=== PATIENT | female | born 1995 | race Caucasian/White ===

== ENCOUNTER 2022-02-03 18:58 | Emergency (ER) | payer BC ==
[2022-02-03 20:37] LABS: Urine Blood Negative (Negative); Urine Glucose Negative (Negative); Urine Protein Negative (Negative); Urine Specific Gravity 1.025 (1.005-1.030)
--- NOTE | 2022-02-03 20:57 | RAD REPORT ---
EXAM DESCRIPTION: US - Transvaginal OB - 02/03/2022 8:22 pm CLINICAL HISTORY: ABD PAIN COMPARISON: No comparisons FINDINGS: A single gestational sac is seen within the uterus. The shape of the sac is within normal limits for gestational age. Within the sac small yolk sac. The maternal adnexa and ovaries are within normal limits. Normal Doppler blood flow was demonstrated to both ovaries. IMPRESSION: Single intrauterine gestational sac is seen containing a small yolk sac. No embryo yet i dentified. The findings, however are compatible with early IUP. Recommend follow-up sonography in 10-12 days.
[2022-02-03 21:08] LABS: Urine Bacteria >50 /HPF (<20); Urine RBC <5 /HPF (None Seen)
[2022-02-03 21:20] LABS: Absolute Lymphocytes (CBC) 3.5 K/uL (0.7-4.9); Hematocrit 39.4 % (36.0-45.0); Lymphocytes % 44.2 % (15.3-44.8); MCV 84.5 fL (80-100); MPV 9.2 fL (7.6-11.3); RBC Red Blood Cell Count 4.67 M/uL (3.86-4.86)
--- NOTE | 2022-02-03 22:01 | EDPHYS ---
Physician Documentation [facility] Name: Anita Alvarez Age: 26 yrs Sex: Female : 1995 Arrival Date: 02/03/2022 Time: 19:17 Bed 4 Private MD: ED Physician Chris Wills HPI: 02/03 19:27 This 26 yrs old Female presents to ER via Unassigned with complaints of Abdominal rn Cramping - 5 wks preg. 19:27 The patient presents to the emergency department with abdominal pain, of the suprapubic rn area, that started today, described as crampy. 19:27 The estimated gestational age is 5 weeks. rn 19:30 course: care: none, Leakage of Fluid: none appreciated, Ultrasound: rn the patient has not had an ultrasound, Risk/complications: no obvious risks or complications are appreciated. Previous pregnancies: the patient has never been . Associated signs and symptoms: Pertinent positives: dysuria, frequency, Pertinent negatives: fever, ruptured membranes, seizure, vaginal bleeding, vaginal discharge. The patient has not experienced similar symptoms in the past. The patient has been recently seen by a physician:. Pt reports lower abd cramping, began today, no vaginal discharge or bleeding. at 5 weeks. NO fever/vomiting/diarrhea. Does report urinary frequency and urgency.. 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 - Social history:: Smoking status: Patient denies any tobacco usage or history of. - Family history:: not pertinent. - Hospitalizations: : No recent hospitalization is reported. ROS: 19:30 Constitutional: Negative for fever, chills, and weight loss, Eyes: Negative for injury, rn pain, redness, and discharge, Neck: Negative for injury, pain, and swelling, Cardiovascular: Negative for chest pain, palpitations, and edema, Respiratory: Negative for shortness of breath, cough, wheezing, and pleuritic chest pain, Abdomen/GI: + lower abd cramping, negative for vomiting or diarrhea Back: Negative for injury and pain, : Negative for vaginal bleeding or discharge. MS/Extremity: Negative for injury and deformity, Skin: Negative for injury, rash, and discoloration, Neuro: Negative for headache, weakness, numbness, tingling, and seizure. Exam: 19:30 Constitutional: This is a well developed, well nourished patient who is awake, alert, rn and in no acute distress. Ambulatory to room without difficulty or distress. Head/Face: Normocephalic, atraumatic. Cardiovascular: Regular rate and rhythm. No pulse deficits. Respiratory: No increased work of breathing, no retractions or nasal flaring. Abdomen/GI: Soft, non-tender, no gaurding Skin: Warm, dry MS/ Extremity: Pulses equal, no cyanosis. Neuro: Awake and alert, GCS 15 Vital Signs: 19:30 BP 114 / 76; Pulse 75; Resp 16; Temp 98.3(O); Pulse Ox 100% on R/A; Weight 83.01 kg jb4 (R); Height 5 ft. 2 in. (157.48 cm) (R); Pain 7/10; 22:00 BP 132 / 89; Pulse 75; Resp 16; Pulse Ox 98% on R/A; jb4 22:20 Pulse 94; Pulse Ox 100% ; kd3 19:30 Body Mass Index 33.47 (83.01 kg, 157.48 cm) jb4 MDM: 19:18 Patient medically screened. rn 21:59 Differential diagnosis: ectopic , UTI. Data reviewed: vital signs, nurses rn notes, lab test result(s), radiologic studies, ultrasound, and as a result, I will discharge patient. Counseling: I had a detailed discussion with the patient and/or guardian regarding: the historical points, exam findings, and any diagnostic results supporting the discharge/admit diagnosis, lab results, radiology results, the need for outpatient follow up, to return to the emergency department if symptoms worsen or persist or if there are any questions or concerns that arise at home. Response to treatment: the patient's symptoms have mildly improved after treatment, and as a result, I will discharge patient. Special discussion: I discussed with the patient/guardian in detail that at this point there is no indication for admission to the hospital. It is understood, however, that if the symptoms persist or worsen the patient needs to return immediately for re-evaluation. Based on the history and exam findings, there is no indication for further emergent testing or inpatient evaluation. I discussed with the patient/guardian the need to see the OB Gyne specialist for further evaluation of the symptoms. ED course: U/S shows IUP, likely early gestation. UA with UTI. Will dc home with macrobid and OB f/u. No need to wait on ABO/RH given no bleeding or leakage of fluid and no ectopic.. 02/03 19:18 Order name: Basic Metabolic Panel 02/03 19:18 Order name: CBC with Diff; Complete Time: 21:57 rn 02/03 19:18 Order name: Quantitative Hcg 02/03 19:18 Order name: Urine Microscopic Only; Complete Time: 21:57 rn 02/03 19:25 Order name: Abo/rh Typing; Complete Time: 22:16 ll3 02/03 20:38 Order name: Urine Dipstick-Ancillary; Complete Time: 20:54 EDWA 02/03 19:18 Order name: US Transvaginal Ob; Complete Time: 20:58 rn 02/03 19:18 Order name: IV Saline Lock; Complete Time: 20:56 rn 02/03 19:18 Order name: Labs collected and sent; Complete Time: 20:56 02/03 19:18 Order name: Urine Dipstick-Ancillary (obtain specimen); Complete Time: 20:37 02/03 21:12 Order name: Urine Culture [facility] 02/03 21:16 Order name: Urine --Ancillary (enter results) 02/03 19:18 Order name: Urine Test (obtain specimen); Complete Time: 20:37 rn Administered Medications: 22:04 Drug: Tylenol 325 mg Route: PO; jb4 22:21 Follow up: Response: No adverse reaction kd3 22:20 Drug: Macrobid (nitrofurantoin) 100 mg Route: PO; kd3 22:21 Follow up: Response: No adverse reaction kd3 Disposition Summary: 02/03/22 22:00 Discharge Ordered Location: Home rn Problem: new rn Symptoms: have improved rn Condition: Stable rn Diagnosis - UTI/ Urinary tract infection, site not specified rn - Threatened rn Followup: rn - With: Private Physician - When: As needed - Reason: Recheck today's complaints, Re-evaluation by your physician Discharge Instructions: - Discharge Summary Sheet rn - Threatened Miscarriage rn - Urinary Tract Infection, Adult rn Forms: - Medication Reconciliation Form rn - Thank You Letter 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
--- NOTE | 2022-02-03 22:01 | ER ---
Nurse's Notes [facility] Name: Anita Alvarez Age: 26 yrs Sex: Female : 1995 Arrival Date: 02/03/2022 Time: 19:17 Bed 4 Private MD: Diagnosis: UTI/ Urinary tract infection, site not specified;Threatened Presentation: 02/03 19:30 Chief complaint: Patient states: I am 5 weeks and was woken up by severe jb4 abdominal cramping. I am not having any bleeding or spotting. 19:30 Method Of Arrival: Ambulatory jb4 19:30 Coronavirus screen: At this time, the client does not indicate any symptoms associated jb4 with coronavirus-19. Ebola Screen: No symptoms or risks identified at this time. Initial Sepsis Screen: Does the patient meet any 2 criteria? No. Patient's initial sepsis screen is negative. Does the patient have a suspected source of infection? No. Patient's initial sepsis screen is negative. Risk Assessment: Do you want to hurt yourself or someone else? Patient reports no desire to harm self or others. Onset of symptoms was February 03, 2022. Transition of care: patient was not received from another setting of care. 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 - Social history:: Smoking status: Patient denies any tobacco usage or history of. - Family history:: not pertinent. - Hospitalizations: : No recent hospitalization is reported. Screenin:45 Abuse screen: Denies threats or abuse. Nutritional screening: No deficits noted. jb4 Tuberculosis screening: No symptoms or risk factors identified. Fall Risk None identified. Assessment: 19:45 General: Appears in no apparent distress. comfortable, Behavior is calm, cooperative, jb4 appropriate for age. Pain: Complains of pain in abdomen Pain does not radiate. Pain currently is 7 out of 10 on a pain scale. Quality of pain is described as crampy. Neuro: Level of Consciousness is awake, alert, obeys commands, Oriented to person, place, time, situation. Cardiovascular: Patient's skin is warm and dry. Respiratory: Airway is patent Respiratory effort is even, unlabored, Respiratory pattern is regular, symmetrical. GI: Abdomen is flat, non-distended, Reports cramping. Derm: Skin is intact, Skin is pink, warm \T\ dry. Musculoskeletal: Circulation, motion, and sensation intact. Range of motion: intact in all extremities. 20:35 Reassessment: Patient appears in no apparent distress at this time. Patient and/or jb4 family updated on plan of care and expected duration. Pain level reassessed. Patient is alert, oriented x 3, equal unlabored respirations, skin warm/dry/pink. 21:30 Reassessment: Patient appears in no apparent distress at this time. Patient and/or jb4 family updated on plan of care and expected duration. Pain level reassessed. Patient is alert, oriented x 3, equal unlabored respirations, skin warm/dry/pink. 22:20 Reassessment: Patient appears in no apparent distress at this time. Patient and/or jb4 family updated on plan of care and expected duration. Pain level reassessed. Patient is alert, oriented x 3, equal unlabored respirations, skin warm/dry/pink. 22:20 GI: Bowel sounds Abd is soft and non tender. kd3 Vital Signs: 19:30 BP 114 / 76; Pulse 75; Resp 16; Temp 98.3(O); Pulse Ox 100% on R/A; Weight 83.01 kg jb4 (R); Height 5 ft. 2 in. (157.48 cm) (R); Pain 7/10; 22:00 BP 132 / 89; Pulse 75; Resp 16; Pulse Ox 98% on R/A; jb4 22:20 Pulse 94; Pulse Ox 100% ; kd3 19:30 Body Mass Index 33.47 (83.01 kg, 157.48 cm) jb4 ED Course: 19:17 Patient arrived in ED. am2 19:18 Chris Wills MD is Attending Physician. rn 19:45 Macho Plascencia, TAMMY is Primary Nurse. jb4 20:23 Transvaginal Ob In Process Unspecified. EDMS 20:31 Triage completed. jb4 20:31 Arm band placed on right wrist. jb4 22:20 No provider procedures requiring assistance completed. IV discontinued, intact, kd3 bleeding controlled, No redness/swelling at site. Pressure dressing applied. 22:21 Patient has correct armband on for positive identification. kd3 Administered Medications: 22:04 Drug: Tylenol 325 mg Route: PO; jb4 22:21 Follow up: Response: No adverse reaction kd3 22:20 Drug: Macrobid (nitrofurantoin) 100 mg Route: PO; kd3 22:21 Follow up: Response: No adverse reaction kd3 Medication: 20:35 VIS not applicable for this client. jb4 Outcome: 22:00 Discharge ordered by . rn 22:21 Discharged to home ambulatory. kd3 22:21 Condition: stable 22:21 Discharge instructions given to patient, family, Instructed on discharge instructions, follow up and referral plans. Demonstrated understanding of instructions, follow-up care, medications, Prescriptions given X 1. 22:23 Patient left the ED. jb4 Signatures: Dispatcher [employer] EDMS Chris Wills MD MD rn Bryson, James, RN RN jb4 Taylor León Kyli, TAMMY RN kd3 Corrections: (The following items were deleted from the chart) 22:21 22:00 BP 133 / 289; Pulse 75bpm; Resp 16bpm; Pulse Ox 98% RA; jb4 jb4
[2022-02-03] MEDS ORDERED: ACETAMINOPHEN 325 MG TABLET ONE (22:09)
[2022-02-03 22:16] LABS: Potassium 4.1 mmol/L (3.5-5.1)
[2022-02-03] MEDS ORDERED: NITROFURAN MACRO 100 MG CAP PO ONE (22:22)
[2022-02-03 23:07] VITALS: TEMP 98.3
[2022-02-03 23:14] VITALS: BP 132/89
[2022-02-03 23:20] VITALS: O2SAT 100
[2022-02-04 00:16] LABS: Urine Specific Gravity/Preg 1.025 (1.005-1.030)
== END 2022-02-03 22:23 | disposition home or self-care (01) ==
LOC: ER 18:58
DX: O20.0 Threatened abortion (principal); O23.41 Unspecified infection of urinary tract in pregnancy, first trimester; N39.0 Urinary tract infection, site not specified; Z3A.01 Less than 8 weeks gestation of pregnancy; Z88.0 Allergy status to penicillin
CPT/HCPCS: 36415; 76817; 80048; 81003; 81015; 81025; 84702; 85025; 86900; 86901; 87086; 87088; 99283

== ENCOUNTER 2022-03-07 17:07 | Emergency (ER) | payer BC ==
--- OUTSIDE RECORDS SUMMARY | 2022-03-07 17:11 | XMS REPORT | Continuity of Care Document ---
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 60-100 [facility] HealthSerum or plasma calcium measurement (mass/volume)2019-06-12 16:25:00 Test Item Value Reference Range Interpretation Comments Calcium Level (test code = 92108-4) 9.5 mg/dL 8.4-10.2 [facility] HealthSerum or plasma total bilirubin measurement (mass/volume) 2019-06-12 16:25:00 Test Item Value Reference Range Interpretation Comments Total Bilirubin (test code = 0.5 mg/dL 0.2-1.2 1975-2) [facility] HealthSerum or plasma aspartate aminotransferase measurement (enzymatic activity/volume)2019-06-12 16:25:00 Test Item Value Reference Range Interpretation Comments Aspartate Amino Transf (AST/SGOT) 87 U/L 5-34 (test code = 1920-8) [facility] HealthSerum or plasma alanine aminotransferase measurement (enzymatic activity/volume)2019-06-12 16:25:00 Test Item Value Reference Range Interpretation Comments Alanine Aminotransferase (ALT/SGPT) 168 U/L 0-55 (test code = 1742-6) [facility] HealthSerum or plasma protein measurement (mass/volume)2019-06-12 16:25:00 Test Item Value Reference Range Interpretation Comments Total Protein (test code = 2885-2) 7.9 g/dL 6.4-8.3 [facility] HealthSerum or plasma albumin measurement (mass/volume)2019-06-12 16:25:00 Test Item Value Reference Range Interpretation Comments Albumin (test code = 1751-7) 4.4 g/dL 3.5-5.0 [facility] HealthSerum or plasma alkaline phosphatase measurement (enzymatic activity/volume)2019-06-12 16:25:00 Test Item Value Reference Range Interpretation Comments Alkaline Phosphatase (test code = 78 U/L 40-150 6768-6) [facility] HealthSerum or plasma lipase measurement (enzymatic activity/volume) 2019-06-12 16:25:00 Test Item Value Reference Range Interpretation Comments Lipase (test code = 3040-3) 21 U/L 8-78 [facility] HealthAutomated blood leukocyte count (number/volume)2019-06-12 16:25:00 Test Item Value Reference Range Interpretation Comments White Blood Count (test code = 11.1 10*3/uL 4.5-11.5 6690-2) [facility] HealthBlood erythrocytes automated count (number/volume)2019-06-12 16:25:00 Test Item Value Reference Range Interpretation Comments Red Blood Count (test code = 5.02 10*6/uL 3.8-5.1 789-8) [facility] HealthBlood hemoglobin measurement (mass/volume)2019-06-12 16:25:00 Test Item Value Reference Range Interpretation Comments Hemoglobin (test code = 718-7) 14.2 g/dL 12.0-15.2 [facility] HealthAutomated blood hematocrit (volume fraction)2019-06-12 16:25:00 Test Item Value Reference Range Interpretation Comments Hematocrit (test code = 4544-3) 44.9 % 34.0-45.5 [facility] HealthAutomated erythrocyte mean corpuscular volume (MCV) measurement 2019-06-12 16:25:00 Test Item Value Reference Range Interpretation Comments Mean Corpuscular Volume (test code = 89 fL 80-94 787-2) [facility] HealthAutomated erythrocyte mean corpuscular hemoglobin (mass per erythrocyte)2019-06-12 16:25:00 Test Item Value Reference Range Interpretation Comments Mean Corpuscular Hemoglobin (test 28.3 pg 27.0-33.0 code = 785-6) [facility] HealthAutomated erythrocyte mean corpuscular hemoglobin concentration measurement (mass/[id number] 16:25:00 Test Item Value Reference Range Interpretation Comments Mean Corpuscular Hemoglobin Concent 31.6 g/dL 33.0-37.0 (test code = 786-4) [facility] HealthAutomated erythrocyte distribution width [id number] 16:25:00 Test Item Value Reference Range Interpretation Comments Red Cell Distribution Width (test code 12.3 % 10.7-14.5 = 788-0) [facility] HealthAutomated blood platelet count (count/volume)2019-06-12 16:25:00 Test Item Value Reference Range Interpretation Comments Platelet Count (test code = 295 10*3/uL 150-450 777-3) [facility] HealthAutomated blood platelet mean volume [id number] 16:25:00 Test Item Value Reference Range Interpretation Comments Mean Platelet Volume (test code = 11.0 5.7-10.7 17377-4) [facility] comment [id number] 16:25:00 Test Item Value Reference Range Interpretation Comments Manual Differential (test code = ----- 8265-1) [facility] 1 VIEW [id number] 07:15:[address] [id number] IMAGING REPORTPat ient Name: DEYSI WOLFE BDate of Service: [id number]: 23 Sex: F Order #: [id number] Room: ERSDOB: 1995 X-Ray Number: [id number] Record Number: [id number] Hospital Number: [id number] Physician: GABBY THOMASOrdering Physician: JOAQUIN CODY ONE VIEW 12/25/2018HISTORY: Left chest painCOMPARISON: NoneCardiac, hilar, and mediastinal structures are normal. Lungs arewell-aerated and clear. No effusion or pneumothorax. No acute bony or softtissue abnormalities are identified.IMPRESSION:Clear chest.The study was performed on an emergent basis and preliminary report faxedto the Emergency Department by the [facility] service nearthe time of the exam.Electronically Signed By: Arturo Moore M.D., 12/25/2018 7:13 AMLegally authenticated by JOY FRANCO 2018-12-25 07:13:[id number] 02:24:00 Test Item Value Reference Range Interpretation Comments %CKMB (test code = TNP % UNABLE TO %MB) CALCULATE RESUL TS DUE TO CKMB <0. 22 NG/ML. CKMB (test code = <0.22 NG/ML 0.22-2.4 CKMB) CK (test code = 55 U/L 30-135 CK) CKINTERP (test NEGATIVE Negative code = CKINTERP) TROPONIN I - [id number] 02:23:00 Test Item Value Reference Range Interpretation Comments TROP-I (test code <0.012 ng/ml 0.012-0.033 INT ERPRETIVE DATA = TROP-I) A TROPONI N OF LESS THAN 0.034 NG/M L IS CONSIDERED NEGA TIVE A TROPONIN OF 0.0 34 - 0.119 NG/ML IS CONSIDERED REGAN ZONE A TROPONIN =/> 0. 120 NG/ML IS CONSIDERED P OSITIVE [id number] 02:17:00 Test Item Value Reference Range Interpretation Comments LIPASE (test code = LIPA) 84 U/L 23-300 [id number] 02:17:00 Test Item Value Reference Range Interpretation Comments SODIUM (test code = 142 MMOL/L 137-145 NA) K+ (test code = 3.8 MMOL/L 3.5-5.1 PLEASE NOTE NEW KSERUM) REFERENCE RANGE (S) IN EFFECT EFFECTIVE 010 - NEW ANALYZER (V ITROS 5600) CHLORIDE (test code 105 MMOL/L 98-107 = CL) CO2 (test code = 27 MMOL/L 22-30 CO2) BUN (test code = 9 MG/DL 7-17 BUN) CREA (test code = 0.5 MG/DL 0.7-1.2 L CREA) GLUCOSE (test code 142 MG/DL 70-99 H Fasting glucose = GLUCOSE) normal <100 MG/ DL- [employer] recommendation* * CALCIUM (test code 9.6 MG/DL 8.4-10.2 = CABLOOD) TOTPROT (test code 7.6 G/DL 6.3-8.2 = TOTPROT) ALBUMIN (test code 4.4 G/DL 3.5-5.0 = ALBSERUM) BILITOT (test code 0.4 MG/DL 0.2-1.3 = BILITOT) AST (test code = 74 U/L 15-46 H AST) PHOSALK (test code 87 U/L 38-126 = PHOSALK) ALT (test code = 143 U/L 13-69 H ALT) GFR (test code = 166 A GFR of >9 0 GFR) mL/min/1.73m2 mL/min/1.73m2 is considered norm al. D-DIMER, [id number] 02:14:00 Test Item Value Reference Range Interpretation Comments D-DIMER (test 0.29 ug/mL (FEU) 0.27-0.50 VALUES OF QUANTITATIVE code = DDIMER) D-DIMER LESS THAN 0.4 UG/ML HAVE BEEN REPORTED TO BE ASSOCIATED WITH A LOW PROBABILITY OF DEEP VEIN THROMBOSIS/PULM ONARYEMB OLISM. THIS NI T ALONE SHOULD NOT BE U SED TO RULE OUT DVT/PE . B-HCG QUAL (KIT)2018-12-25 02:02:00 Test Item Value Reference Range Interpretation Comments HCGQUAL (test code = NEGATIVE NEGATIVE URINE: NEGATIVE = < HCGQUAL) 20 mIU/ML; POSI TIVE= >/= 20 mIU/ML S FARIHA: NEGATIVE = < 10 mIU/ML; POSITIV E= >/= 10 mIU/ML SOURCE (test code = SERUM SOURCE) HCG INTERNAL POSITIVE PASS PASS CNTRL (test code = HCGIPC) HCG LOT # (test code = [id number] UHCGLOT) HCG EXPIRATION DATE 05-27-20 (test code = UHCGEXP) [id number] 02:01:00 Test Item Value Reference Range Interpretation Comments GLUCOSE (test code = URGLU) 100 MG/DL NEG-100 BILIRUBN (test code = URBILI) NEGATIVE NEGATIVE KETONE (test code = URKET) NEGATIVE MG/DL NEGATIVE BLOOD (test code = URBLD) NEGATIVE UR PH (test code = URPH) 5.5 5.0-7.5 PROTEIN (test code = URPRO) NEGATIVE MG/DL NEGATIVE NITRITES (test code = URNIT) NEGATIVE NEGATIVE UROBILINGEN (test code = 0.2 EU/DL 0.2-1.0 URURO) LEUKOCYT (test code = URLEU) NEGATIVE NEGATIVE UA COLOR (test code = UA YELLOW YELLOW COLOR) CLARITY (test code = CLARITY) CLEAR CLEAR SP GRAV (test code = URSPGRAV) 1.022 1.000-1.025 UAMICRO (test code = UAMICRO) NO [id number] 01:50:00 Test Item Value Reference Range Interpretation Comments WBC (test code = 9.1 K/UL 3.5-10.9 WBC) RBC (test code = 4.77 M/UL 4.0-5.0 RBC) HGB (test code = 13.8 G/DL 11.5-15.5 HGB) HCT (test code = 42.1 % 34-46 HCT) MCV (test code = 88.3 FL 80-98 MCV) MCH (test code = 28.9 PG 28-32 MCH) MCHC (test code = 32.8 G/DL 32.5-36.5 MCHC) RDW (test code = 12.1 % 11.5-14.5 RDW) PLT (test code = 273 K/UL 150-450 PLT) MPV (test code = 11.1 FL 7.4-10.4 H MPV) MANDIFF (test code = NO MANDIFF) SCAN (test code = NO SCAN) NEUT% (test code = 45.5 % 40-75 NEUT%) LYMPH% (test code = 44.6 % 24-44 H LYMPH%) MONO% (test code = 7.4 % 0-13 MONO%) EOS% (test code = 1.9 % 0-4 EOS%) BASO % (test code = 0.3 % 0-2 BASO%) IG (test code = IG) 0 % 0-1 IG% (test code = 0.3 % 0-1 IG% = Metam yelocytes, IG%) Myelocytes, and Promyelocytes. (Immature neutr ophils not including " bands".) > 3% IG indic ates risk of sepsis NRBC% (test code = 0 /100 WBC NRBC%) ABS NEUT (test code 4.2 K/UL 1.2-7.2 = NEUT) Comprehensive metabolic 2000 panel - Serum or [id number] 00:00:00 Test Item Value Reference Range Interpretation Comments sodium (test code = sodium) 137 mmol/L 136-145 potassium (test code = potassium) 3.6 mmol/L 3.5-5.1 chloride (test code = chloride) 103 mmol/L 98-107 CO2 (test code = CO2) 20 mmol/L 24-33 L anion gap (test code = anion gap) 18 8-18 BUN (test code = BUN) 5 mg/dL 6-20 L creatinine (test code = 0.4 mg/dL 0.7-1.3 L creatinine) est glomerular filtration rate 214 90-142 H (test code = est glomerular filtration rate) glucose (test code = glucose) 127 mg/dL 60-100 H calcium (test code = calcium) 8.7 mg/dL 8.3-10.5 bilirubin total (test code = 0.3 mg/dL 0.0-1.0 bilirubin total) AST / SGOT (test code = AST / 66 U/L 0-32 H SGOT) ALT / SGPT (test code = ALT / 202 U/L 0-33 H SGPT) total protein (test code = total 7.1 g/dL 6.4-8.3 protein) albumin (test code = albumin) 3.6 g/dL 3.5-5.0 alkaline phosphatase (test code = 160 U/L 58-154 H alkaline phosphatase) [facility] W Auto Differential panel - Blood 2018-09-11 00:00:00 Test Item Value Reference Range Interpretation Comments WBC (test code = WBC) 8.3 10*3/uL 4.5-11.5 red cell count (test code = red 4.25 10*6/uL 3.8-5.1 cell count) hemoglobin (test code = 12.0 g/dL 12.0-15.2 hemoglobin) hematocrit (test code = 37.6 % 34.0-45.5 hematocrit) mean corpuscular volume (test 89 fL 80-94 code = mean corpuscular volume) mean corpuscular HGB (test code 28.2 pg 27.0-33.0 = mean corpuscular HGB) mean corpuscular HGB conc (test 31.9 g/dL 33.0-37.0 L code = mean corpuscular HGB conc) red cell distribution width 12.2 % 10.7-14.5 (test code = red cell distribution width) platelet count (test code = 227 10*3/uL 150-450 platelet count) mean platelet volume (test code 11.5 fL 5.7-10.7 H = mean platelet volume) neutrophils % (test code = 71 % 47-75 neutrophils %) immature granulocyte % (test 0 % 0-0 code = immature granulocyte %) lymphocytes % (test code = 19 % 25-44 L lymphocytes %) monocytes % (test code = 9 % 3-10 monocytes %) eosinophils % (test code = 1 % 0-7 eosinophils %) basophils % (test code = 0 % 0-1 basophils %) nucleated RBC % (test code = 0.0 % 0-0.2 nucleated RBC %) neutrophils # (test code = 5.9 10*3/uL 1.3-6.7 neutrophils #) immature granulocyte # (test 0.0 10*3/uL 0.0-0.0 code = immature granulocyte #) lymphocytes # (test code = 1.6 10*3/uL 1.4-4.1 lymphocytes #) monocytes # (test code = 0.8 10*3/uL 0-1.3 monocytes #) eosinophils # (test code = 0.1 10*3/uL 0-0.8 eosinophils #) basophils # (test code = 0.0 10*3/uL 0-0.1 basophils #) nucleated RBC # (test code = 0.00 10*3/uL 0-0.01 nucleated RBC #) manual diff? (test code = manual not ind diff?) [facility] AssociatesPATHOLOGY [id number] 08:19:00 TISSUE CONSULTATION REPORTBAPTSAINT MARK'S MEDICAL CENTERDEPARTMENT OF PATHOLOGYP.O[address], [place] [address] ISH PIRES M.D.ROBERT L. HUTTON, M.D.CHARLES E. BURNS, M.D. ____Patient: DEYSI WOLFE 1995 23 FRoom:Hosp#: [id number] Ordering Physician: ROHITH VALLE Rec.: 08/31/2018Date of Proc.: 08/31/2018Lab No.: [id number] FINAL ANATOMIC DIAGNOSIS:STOMACH, BIOPSY:- CHRONIC INACTIVE GASTRITIS WITH SUPERIMPOSED REACTIVE CHANGE.- NEGATIVE FOR HELICOBACTER FORMS BY JENNIFER STAIN.- NEGATIVE FOR INTESTINAL METAPLASIA BY AB/PAS STAIN.- NEGATIVE FOR DYSPLASIA OR MALIGNANCY.MICROSCOPIC EXAMINATION:Performed; see diagnosis.GROSS APPEARANCE:The specimen is labeled "random gastric biopsy." Submitted informalin are two yellow-leon mucosal fragments measuring 0.5 x 0.3 x0.2 cm in aggregate, ET one block wraps.PATHOLOGIST: Mane Ledesma Electronically Signed: 09/01/[id number] 07:46:00 Test Item Value Reference Range Interpretation Comments SODIUM (test code = 142 MMOL/L 137-145 NA) K+ (test code = 3.4 MMOL/L 3.5-5.1 L PLEASE NOTE NEW KSERUM) REFERENCE RANGE (S) IN EFFECT EFFECTIVE 010 - NEW ANALYZER (V ITROS 5600) CHLORIDE (test code 105 MMOL/L 98-107 = CL) CO2 (test code = 26 MMOL/L 22-30 CO2) BUN (test code = 6 MG/DL 7-17 L BUN) CREA (test code = 0.6 MG/DL 0.7-1.2 L CREA) GLUCOSE (test code 87 MG/DL 70-99 Fasting glucose = GLUCOSE) normal <100 MG/ DL- [employer] recommendation* * CALCIUM (test code 9.2 MG/DL 8.4-10.2 = CABLOOD) TOTPROT (test code 6.7 G/DL 6.3-8.2 = TOTPROT) ALBUMIN (test code 3.9 G/DL 3.5-5.0 = ALBSERUM) BILITOT (test code 0.6 MG/DL 0.2-1.3 = BILITOT) AST (test code = 104 U/L 15-46 H AST) PHOSALK (test code 117 U/L 38-126 = PHOSALK) ALT (test code = 266 U/L 13-69 H ALT) GFR (test code = 134 A GFR of >9 0 GFR) mL/min/1.73m2 mL/min/1.73m2 is considered norm al. [id number] 07:19:00 Test Item Value Reference Range Interpretation Comments WBC (test code = 9.2 K/UL 3.5-10.9 WBC) RBC (test code = 4.99 M/UL 4.0-5.0 RBC) HGB (test code = 13.9 G/DL 11.5-15.5 HGB) HCT (test code = 42.9 % 34-46 HCT) MCV (test code = 86.0 FL 80-98 MCV) MCH (test code = 27.9 PG 28-32 L MCH) MCHC (test code = 32.4 G/DL 32.5-36.5 L MCHC) RDW (test code = 12.4 % 11.5-14.5 RDW) PLT (test code = 261 K/UL 150-450 PLT) MPV (test code = 11.0 FL 7.4-10.4 H MPV) MANDIFF (test code = NO MANDIFF) SCAN (test code = NO SCAN) NEUT% (test code = 49.5 % 40-75 NEUT%) LYMPH% (test code = 37.9 % 24-44 LYMPH%) MONO% (test code = 9.5 % 0-13 MONO%) EOS% (test code = 2.3 % 0-4 EOS%) BASO % (test code = 0.4 % 0-2 BASO%) IG (test code = IG) 0 % 0-1 IG% (test code = 0.4 % 0-1 IG% = Metam yelocytes, IG%) Myelocytes, and Promyelocytes. (Immature neutr ophils not including " bands".) > 3% IG indic ates risk of sepsis NRBC% (test code = 0 /100 WBC NRBC%) ABS NEUT (test code 4.6 K/UL 1.2-7.2 = NEUT) ACUTE HEPATITIS [id number] 03:34:00 Test Item Value Reference Range Interpretation Comments HAAB,M (test code = NEGATIVE NEGATIVE HAAB,M) HBCABM (test code = NEGATIVE NEGATIVE A GRAYZO NE result is HBCABM) presumptive betsey dence of IgM anti-HBc. P atients with specimens exhibiting regan zone react tay test results should be retested at jared roximately one-week interv als. HCV (test code = NEGATIVE NEGATIVE Hepatitis C Antibody test HCV) is for screenin g purposes only. All react nga will be confirmed by additional test ing. HEPBSAG (test code = NEGATIVE NEGATIVE Hepatit is B Surface HEPBSAG) Antigen is for screening purpose only. A ll reactives will be sent to reference lab f or confirmation. [id number] 17:52:00 Test Item Value Reference Range Interpretation Comments SODIUM (test code = 141 MMOL/L 137-145 NA) K+ (test code = 4.0 MMOL/L 3.5-5.1 PLEASE NOTE NEW KSERUM) REFERENCE RANGE (S) IN EFFECT EFFECTIVE 010 - NEW ANALYZER (V ITROS 5600) CHLORIDE (test code 103 MMOL/L 98-107 = CL) CO2 (test code = 29 MMOL/L 22-30 CO2) BUN (test code = 7 MG/DL 7-17 BUN) CREA (test code = 0.5 MG/DL 0.7-1.2 L CREA) GLUCOSE (test code 120 MG/DL 70-99 H Fasting glucose = GLUCOSE) normal <100 MG/ DL- [employer] recommendation* * CALCIUM (test code 9.3 MG/DL 8.4-10.2 = CABLOOD) TOTPROT (test code 7.1 G/DL 6.3-8.2 = TOTPROT) ALBUMIN (test code 4.0 G/DL 3.5-5.0 = ALBSERUM) BILITOT (test code 0.4 MG/DL 0.2-1.3 = BILITOT) AST (test code = 147 U/L 15-46 H AST) PHOSALK (test code 135 U/L 38-126 H = PHOSALK) ALT (test code = 355 U/L 13-69 H ALT) GFR (test code = 166 A GFR of >9 0 GFR) mL/min/1.73m2 mL/min/1.73m2 is considered norm al. [id number] 17:52:00 Test Item Value Reference Range Interpretation Comments LIPASE (test code = LIPA) 65 U/L 23-300 [id number] 17:33:00 Test Item Value Reference Range Interpretation Comments WBC (test code = 9.6 K/UL 3.5-10.9 WBC) RBC (test code = 4.72 M/UL 4.0-5.0 RBC) HGB (test code = 13.6 G/DL 11.5-15.5 HGB) HCT (test code = 40.7 % 34-46 HCT) MCV (test code = 86.2 FL 80-98 MCV) MCH (test code = 28.8 PG 28-32 MCH) MCHC (test code = 33.4 G/DL 32.5-36.5 MCHC) RDW (test code = 12.3 % 11.5-14.5 RDW) PLT (test code = 275 K/UL 150-450 PLT) MPV (test code = 11.2 FL 7.4-10.4 H MPV) MANDIFF (test code = NO MANDIFF) SCAN (test code = NO SCAN) NEUT% (test code = 64.1 % 40-75 NEUT%) LYMPH% (test code = 24.6 % 24-44 LYMPH%) MONO% (test code = 8.5 % 0-13 MONO%) EOS% (test code = 2.1 % 0-4 EOS%) BASO % (test code = 0.3 % 0-2 BASO%) IG (test code = IG) 0 % 0-1 IG% (test code = 0.4 % 0-1 IG% = Metam yelocytes, IG%) Myelocytes, and Promyelocytes. (Immature neutr ophils not including " bands".) > 3% IG indic ates risk of sepsis NRBC% (test code = 0 /100 WBC NRBC%) ABS NEUT (test code 6.1 K/UL 1.2-7.2 = NEUT) CT ABDOMEN/PELVIS [id number] 07:30:[address] [id number] IMAGING REPORTPatient Name: DEYSI WOLFE BDate of Service: [id number]: 23 Sex: F Order #: [id number] Room: [facility]: 1995 X-Ray Number: [id number] Record Number: [id number] Hospital Number: [id number] Physician: KIERA DELA CRUZ Physician: FRANK ASH ABDOMEN/PELVIS WITH 08/30/2018 12:33 AMHISTORY: Abd pain without fever . Abdominal pain with nausea andvomiting.COMPARISON: 08/20/2018TECHNIQUE: IV contrast-enhanced CT imaging of the abdomen and pelvis. ThisCT exam was performed using one or more of the following dose reductiontechniques: Automated exposure control, adjustment of the mA and/or KVaccording to patient size, or use of iterative reconstruction technique.FINDINGS:There is mild bibasilar atelectasis. Heart size is normal.Within the dome of the right lobe of the liver is an 11 mm hyperdenselesion that is similar to the prior precontrast enhanced study performed on08/20/2018. There is diffuse hepatic steatosis. The gallbladder issurgically absent.The spleen, pancreas, adrenal glands, and kidneys are normal.The bowel is unobstructed. The appendix is normal. There is no free fluidor free air in the abdomen or pelvis. The bladder is distended and normal.The bones are intact without acute abnormality.IMPRESSION:1. No acute abnormality of the abdomen or pelvis.2. 11 mm hyperdense lesion within the dome of the right lobe of the liveris nonspecific but similar to the prior study from 08/20/2018. Furtherevaluation with pre and post IV contrast MRI of the abdomen may help bettercharacterize this lesion.3. Hepatic steatosis.Electronically Signed By: Mane Goss M.D., 08/30/2018 7:28 AMLegally authenticated by TORRIE CARRION 2018-08-30 07:28:[id number] 21:58:00 Test Item Value Reference Range Interpretation Comments GLUCOSE (test code = URGLU) NEGATIVE MG/DL NEG-100 BILIRUBN (test code = URBILI) NEGATIVE NEGATIVE KETONE (test code = URKET) 80 MG/DL NEGATIVE BLOOD (test code = URBLD) NEGATIVE UR PH (test code = URPH) 5.5 5.0-7.5 PROTEIN (test code = URPRO) NEGATIVE MG/DL NEGATIVE NITRITES (test code = URNIT) NEGATIVE NEGATIVE UROBILINGEN (test code = 0.2 EU/DL 0.2-1.0 URURO) LEUKOCYT (test code = URLEU) SMALL NEGATIVE UA COLOR (test code = UA DARK YELLOW YELLOW COLOR) CLARITY (test code = CLARITY) CLEAR CLEAR SP GRAV (test code = URSPGRAV) 1.018 1.000-1.025 UAMICRO (test code = UAMICRO) YES WBC (test code = URWBC) 11 /HPF 0-5 H RBC (test code = URRBC) 7 /HPF 0-2 H CASTS (test code = CAST) 6 /LPF 0-3 H UR EPI (test code = EPI) 143 /LPF BACTERIA (test code = NEGATIVE NONE BACTERIA) B-HCG QUAL (KIT)2018-08-29 19:33:00 Test Item Value Reference Range Interpretation Comments HCGQUAL (test code = NEGATIVE NEGATIVE URINE: NEGATIVE = < HCGQUAL) 20 mIU/ML; POSI TIVE= >/= 20 mIU/ML S FARIHA: NEGATIVE = < 10 mIU/ML; POSITIV E= >/= 10 mIU/ML SOURCE (test code = SERUM SOURCE) HCG INTERNAL POSITIVE PASS PASS CNTRL (test code = HCGIPC) HCG LOT # (test code = [id number] UHCGLOT) HCG EXPIRATION DATE 01-14 (test code = UHCGEXP) [id number] 19:28:00 Test Item Value Reference Range Interpretation Comments LIPASE (test code = LIPA) 48 U/L 23-300 [id number] 19:28:00 Test Item Value Reference Range Interpretation Comments SODIUM (test code = 140 MMOL/L 137-145 NA) K+ (test code = 4.0 MMOL/L 3.5-5.1 PLEASE NOTE NEW KSERUM) REFERENCE RANGE (S) IN EFFECT EFFECTIVE 010 - NEW ANALYZER (V ITROS 5600) CHLORIDE (test code 102 MMOL/L 98-107 = CL) CO2 (test code = 27 MMOL/L 22-30 CO2) BUN (test code = 10 MG/DL 7-17 BUN) CREA (test code = 0.6 MG/DL 0.7-1.2 L CREA) GLUCOSE (test code 84 MG/DL 70-99 Fasting glucose = GLUCOSE) normal <100 MG/ DL- [employer] recommendation* * CALCIUM (test code 9.7 MG/DL 8.4-10.2 = CABLOOD) TOTPROT (test code 7.9 G/DL 6.3-8.2 = TOTPROT) ALBUMIN (test code 4.5 G/DL 3.5-5.0 = ALBSERUM) BILITOT (test code 0.7 MG/DL 0.2-1.3 = BILITOT) AST (test code = 547 U/L 15-46 H AST) PHOSALK (test code 177 U/L 38-126 H = PHOSALK) ALT (test code = 599 U/L 13-69 H ALT) GFR (test code = 134 A GFR of >9 0 GFR) mL/min/1.73m2 mL/min/1.73m2 is considered norm al. [id number] 19:21:00 Test Item Value Reference Range Interpretation Comments WBC (test code = 11.7 K/UL 3.5-10.9 H WBC) RBC (test code = 5.17 M/UL 4.0-5.0 H RBC) HGB (test code = 14.9 G/DL 11.5-15.5 HGB) HCT (test code = 45.1 % 34-46 HCT) MCV (test code = 87.2 FL 80-98 MCV) MCH (test code = 28.8 PG 28-32 MCH) MCHC (test code = 33.0 G/DL 32.5-36.5 MCHC) RDW (test code = 12.1 % 11.5-14.5 RDW) PLT (test code = 295 K/UL 150-450 PLT) MPV (test code = 11.1 FL 7.4-10.4 H MPV) MANDIFF (test code = NO MANDIFF) SCAN (test code = NO SCAN) NEUT% (test code = 70.7 % 40-75 NEUT%) LYMPH% (test code = 21.0 % 24-44 L LYMPH%) MONO% (test code = 6.2 % 0-13 MONO%) EOS% (test code = 1.3 % 0-4 EOS%) BASO % (test code = 0.5 % 0-2 BASO%) IG (test code = IG) 0 % 0-1 IG% (test code = 0.3 % 0-1 IG% = Metam yelocytes, IG%) Myelocytes, and Promyelocytes. (Immature neutr ophils not including " bands".) > 3% IG indic ates risk of sepsis NRBC% (test code = 0 /100 WBC NRBC%) ABS NEUT (test code 8.3 K/UL 1.2-7.2 H = NEUT) PATHOLOGY [id number] 09:33:00TISSUE CONSULTATION REPORTBAPTSAINT MARK'S MEDICAL CENTERDEPARTMENT OF PATHOLOGYP.O. [address]AC[address] [place] [address] ROBOCL ISH ROJAS M.D.ROBERT L. HUTTON, M.D.CHARLES E. BURNS, M.D. ____Patient: YANETHKRISTALelia Ornelas 1995 23 FRoom:Hosp#: [id number] Ordering Physician: JUAN MERAZ Rec.: 08/26/2018Date of Proc.: 08/25/2018Lab No.: [id number] PRE-OPERATIVE DIAGNOSIS:Chronic cholecystitisFINAL ANATOMIC DIAGNOSIS:GALLBLADDER, CHOLECYSTECTOMY: CHRONIC CHOLECYSTITISMICROSCOPIC EXAMINATION:A single HGROSS APPEARANCE:The specimen is labeled "gallbladder." The 6.5 x 2.5 x 1.2 cmgallbladder has a pink-leon smooth and glistening serosa. Nolymphoid tissue is identified in the area of the cystic duct.Opening the gallbladder lengthwise reveals a small amount of palegreen mucoid bile. No stones are present within the gallbladderlumen or specimen container. The mucosa is pale green with avelvety texture. No cholesterolosis is appreciated grossly. Thereis a fold within the distal fundus of the gallbladder, consistentwitha Phrygian cap abnormality. The wall ranges from 1-2 mm inthickness. Sections are submitted in a single cassette.PATHOLOGIST: Roberto Genao Electronically Signed: 08/29/2018ABDOMEN 2 [id number] 07:15:[address] [id number] IMAGING REPORTPatient Name: DEYSI WOLFE BDate of Service: [id number]: 23 Sex: F Order #: [id number] [facility] 1995 X[facility] Number: [id number] Record Number: [id number] Hospital Number: [id number] Ph ysician: Marbella THOMAS Physician: Radha THOMAS 2 views 08/27/2018History: Recent cholecystectomy, severe abdominal pain and vomitingTechnique: AP upright and supine images were obtained.Comparison: CT of 08/20/2018Findings:Cholecystectomy clips are in place.Bowel gas pattern is normal with some stool scattered in the colon. Thereis no free air. Bones and soft tissues are otherwise stable. Left lowpelvic phlebolith is identified.Impression:Within normal limits.The study was performed on an em ergent basis and preliminary report faxedto the Emergency Department by the [facility] nearthe time of the exam.Electronically Signed By: Arturo Moore M.D., 08/27/2018 7:12 AMLegallyauthenticated by JOY FRANCO 2018-08-27 07:12:39B-HCG QUAL (KIT)2018-08-27 05:19:00 Test Item Value Reference Range Interpretation Comments HCGQUAL (test code = NEGATIVE NEGATIVE URINE: NEGATIVE = < HCGQUAL) 20 mIU/ML; POSI TIVE= >/= 20 mIU/ML S FARIHA: NEGATIVE = < 10 mIU/ML; POSITIV E= >/= 10 mIU/ML SOURCE (test code = SERUM SOURCE) HCG INTERNAL POSITIVE PASS PASS CNTRL (test code = HCGIPC) HCG LOT # (test code = 2497781 UHCGLOT) HCG EXPIRATION DATE 01-14 (test code = UHCGEXP) [id number] 05:07:00 Test Item Value Reference Range Interpretation Comments GLUCOSE (test code = URGLU) NEGATIVE MG/DL NEG-100 BILIRUBN (test code = URBILI) SMALL NEGATIVE KETONE (test code = URKET) TRACE MG/DL NEGATIVE BLOOD (test code = URBLD) NEGATIVE UR PH (test code = URPH) 5.0 5.0-7.5 PROTEIN (test code = URPRO) NEGATIVE MG/DL NEGATIVE NITRITES (test code = URNIT) NEGATIVE NEGATIVE UROBILINGEN (test code = 1.0 EU/DL 0.2-1.0 URURO) LEUKOCYT (test code = URLEU) SMALL NEGATIVE UA COLOR (test code = UA DARK YELLOW YELLOW COLOR) CLARITY (test code = CLARITY) CLOUDY CLEAR SP GRAV (test code = URSPGRAV) 1.021 1.000-1.025 UAMICRO (test code = UAMICRO) YES WBC (test code = URWBC) 8 /HPF 0-5 H RBC (test code = URRBC) 2 /HPF 0-2 CASTS (test code = CAST) 14 /LPF 0-3 H UR EPI (test code = EPI) 210 /LPF BACTERIA (test code = NEGATIVE NONE BACTERIA) CASTTYPE (test code = HYALINE CASTTYPE) PATHCAST (test code = GRANULAR PATHCAST) MUCOUS (test code = URMUCOUS) MUCH /LPF NONE [id number] 04:11:00 Test Item Value Reference Range Interpretation Comments WBC (test code = 7.8 K/UL 3.5-10.9 WBC) RBC (test code = 4.34 M/UL 4.0-5.0 RBC) HGB (test code = 12.7 G/DL 11.5-15.5 HGB) HCT (test code = 38.2 % 34-46 HCT) MCV (test code = 88.0 FL 80-98 MCV) MCH (test code = 29.3 PG 28-32 MCH) MCHC (test code = 33.2 G/DL 32.5-36.5 MCHC) RDW (test code = 12.1 % 11.5-14.5 RDW) PLT (test code = 225 K/UL 150-450 PLT) MPV (test code = 11.5 FL 7.4-10.4 H MPV) MANDIFF (test code = NO MANDIFF) SCAN (test code = NO SCAN) NEUT% (test code = 55.2 % 40-75 NEUT%) LYMPH% (test code = 34.0 % 24-44 LYMPH%) MONO% (test code = 9.5 % 0-13 MONO%) EOS% (test code = 0.6 % 0-4 EOS%) BASO % (test code = 0.4 % 0-2 BASO%) IG (test code = IG) 0 % 0-1 IG% (test code = 0.3 % 0-1 IG% = Metam yelocytes, IG%) Myelocytes, and Promyelocytes. (Immature neutr ophils not including " bands".) > 3% IG indic ates risk of sepsis NRBC% (test code = 0 /100 WBC NRBC%) ABS NEUT (test code 4.3 K/UL 1.2-7.2 = NEUT) BMP, BASIC METABOLIC [id number] 04:03:00 Test Item Value Reference Range Interpretation Comments SODIUM (test code = 141 MMOL/L 137-145 NA) K+ (test code = 4.1 MMOL/L 3.5-5.1 PLEASE NOTE NEW KSERUM) REFERENCE RANGE (S) IN EFFECT EFFECTIVE 010 - NEW ANALYZER (V ITROS 5600) CHLORIDE (test code 111 MMOL/L 98-107 H = CL) CO2 (test code = 22 MMOL/L 22-30 CO2) BUN (test code = 11 MG/DL 7-17 BUN) CREA (test code = 0.5 MG/DL 0.7-1.2 L CREA) GLUCOSE (test code 112 MG/DL 70-99 H Fasting glucose = GLUCOSE) normal <100 MG/ DL- [employer] recommendation* * CALCIUM (test code 8.7 MG/DL 8.4-10.2 = CABLOOD) GFR (test code = 166 A GFR of >9 0 GFR) mL/min/1.73m2 mL/min/1.73m2 is considered norm al. LIVER [id number] 04:03:00 Test Item Value Reference Range Interpretation Comments TOTPROT (test code = TOTPROT) 6.5 G/DL 6.3-8.2 ALBUMIN (test code = ALBSERUM) 3.6 G/DL 3.5-5.0 BILITOT (test code = BILITOT) 1.0 MG/DL 0.2-1.3 BILIDIR (test code = BILIDIR) 0.8 MG/DL 0.0-0.4 H AST (test code = AST) 830 U/L 15-46 H PHOSALK (test code = PHOSALK) 86 U/L 38-126 ALT (test code = ALT) 428 U/L 13-69 H [id number] 04:03:00 Test Item Value Reference Range Interpretation Comments LIPASE (test code = LIPA) 157 U/L 23-300 [id number] 13:45:00 Test Item Value Reference Range Interpretation Comments SODIUM (test code = 139 MMOL/L 137-145 NA) K+ (test code = 4.2 MMOL/L 3.5-5.1 PLEASE NOTE NEW KSERUM) REFERENCE RANGE (S) IN EFFECT EFFECTIVE 010 - NEW ANALYZER (V ITROS 5600) CHLORIDE (test code 105 MMOL/L 98-107 = CL) CO2 (test code = 26 MMOL/L 22-30 CO2) BUN (test code = 8 MG/DL 7-17 BUN) CREA (test code = 0.5 MG/DL 0.7-1.2 L CREA) GLUCOSE (test code 105 MG/DL 70-99 H Fasting glucose = GLUCOSE) normal <100 MG/ DL- [employer] recommendation* * CALCIUM (test code 9.1 MG/DL 8.4-10.2 = CABLOOD) TOTPROT (test code 6.4 G/DL 6.3-8.2 = TOTPROT) ALBUMIN (test code 3.5 G/DL 3.5-5.0 = ALBSERUM) BILITOT (test code 0.4 MG/DL 0.2-1.3 = BILITOT) AST (test code = 145 U/L 15-46 H AST) PHOSALK (test code 73 U/L 38-126 = PHOSALK) ALT (test code = 159 U/L 13-69 H ALT) GFR (test code = 166 A GFR of >9 0 GFR) mL/min/1.73m2 mL/min/1.73m2 is considered norm al. [id number] 12:43:00 Test Item Value Reference Range Interpretation Comments WBC (test code = 11.9 K/UL 3.5-10.9 H WBC) RBC (test code = 4.32 M/UL 4.0-5.0 RBC) HGB (test code = 12.5 G/DL 11.5-15.5 HGB) HCT (test code = 37.2 % 34-46 HCT) MCV (test code = 86.1 FL 80-98 MCV) MCH (test code = 28.9 PG 28-32 MCH) MCHC (test code = 33.6 G/DL 32.5-36.5 MCHC) RDW (test code = 11.9 % 11.5-14.5 RDW) PLT (test code = 253 K/UL 150-450 PLT) MPV (test code = 11.2 FL 7.4-10.4 H MPV) MANDIFF (test code = NO MANDIFF) SCAN (test code = NO SCAN) NEUT% (test code = 76.7 % 40-75 H NEUT%) LYMPH% (test code = 14.7 % 24-44 L LYMPH%) MONO% (test code = 8.0 % 0-13 MONO%) EOS% (test code = 0.0 % 0-4 EOS%) BASO % (test code = 0.1 % 0-2 BASO%) IG (test code = IG) 0 % 0-1 IG% (test code = 0.5 % 0-1 IG% = Metam yelocytes, IG%) Myelocytes, and Promyelocytes. (Immature neutr ophils not including " bands".) > 3% IG indic ates risk of sepsis NRBC% (test code = 0 /100 WBC NRBC%) ABS NEUT (test code 9.2 K/UL 1.2-7.2 H = NEUT) US LIMITED ABD [id number] 07:27:[address] [id number] IMAGING REPORTPatient Name: DEYSI WOLFE BDate of Service: 82-79-4155Dwr: 23 Sex: F Order #: [id number] [facility] 1995 X[facility]Ray Number: [id number] Record Number: [id number] Hospital Number: [id number] Physician: Nate THOMASing Physician: Ladarius THOMAS upper quadrant abdominal ultrasound 08/25/2018History: Abdominal pain and nausea for several weeksComparison CT of 08/20/2018The liver again shows increased echotexture consistent with fattyinfiltration. Prominence of the right liver is at least in part due to aRiedel's lobe. Multiple anechoic structures scattered in the liver measureup to 1.9 cmand may be due to cysts. These are not clearly seen on theprior CT which was performed without contrast.Common bile duct diameter is 4 mm.Gallbladder wall is thickened to 1 cm with some surrounding fluid. Nodefinite calculi.Duplex imaging of main portal vein flow is unremarkable. The aorta and IVCare normal. The pancreas and right kidney are suboptimally visualized dueto bowel gas. Right kidney is measured at 10.9 cm in length.IMPRESSION:Abnormal gallbladder findings suspicious for acute cholecystitis. Nodefinite calculus. These findings are new.Fatty liver with possible hepatic cysts. Again, thesestructures were notseen on the prior noncontrast CT. Follow-up CT with contrast or MRI pre andpost IV contrast would be more helpful for further evaluation.The study was performed on an emergent basis and preliminary report faxedto the Emergency Department by the [facility] nearthe time of the exam.Electronically Signed By: Arturo Moore M.D., 08/25/2018 7:25 AMLegally authenticated by JOY FRANCO 2018-08-25 07:25:[id number] 07:14:00 Test Item Value Reference Range Interpretation Comments BLOOD TYPE (test code = TYPE) A Rh Negative ANTIBODY SCREEN (test code = NEGATIVE NEGATIVE SCREEN) [id number] 03:58:00 Test Item Value Reference Range Interpretation Comments LIPASE (test code = LIPA) 57 U/L 23-300 LIVER [id number] 03:58:00 Test Item Value Reference Range Interpretation Comments TOTPROT (test code = TOTPROT) 7.2 G/DL 6.3-8.2 ALBUMIN (test code = ALBSERUM) 4.2 G/DL 3.5-5.0 BILITOT (test code = BILITOT) 0.3 MG/DL 0.2-1.3 BILIDIR (test code = BILIDIR) 0.3 MG/DL 0.0-0.4 AST (test code = AST) 30 U/L 15-46 PHOSALK (test code = PHOSALK) 59 U/L 38-126 ALT (test code = ALT) 35 U/L 13-69 [id number] 03:52:00 Test Item Value Reference Range Interpretation Comments GLUCOSE (test code = URGLU) NEGATIVE MG/DL NEG-100 BILIRUBN (test code = URBILI) NEGATIVE NEGATIVE KETONE (test code = URKET) NEGATIVE MG/DL NEGATIVE BLOOD (test code = URBLD) NEGATIVE UR PH (test code = URPH) 6.0 5.0-7.5 PROTEIN (test code = URPRO) NEGATIVE MG/DL NEGATIVE NITRITES (test code = URNIT) NEGATIVE NEGATIVE UROBILINGEN (test code = 0.2 EU/DL 0.2-1.0 URURO) LEUKOCYT (test code = URLEU) NEGATIVE NEGATIVE UA COLOR (test code = UA YELLOW YELLOW COLOR) CLARITY (test code = CLARITY) CLEAR CLEAR SP GRAV (test code = URSPGRAV) 1.023 1.000-1.025 UAMICRO (test code = UAMICRO) NO [id number] 03:48:00 Test Item Value Reference Range Interpretation Comments WBC (test code = 11.8 K/UL 3.5-10.9 H WBC) RBC (test code = 4.83 M/UL 4.0-5.0 RBC) HGB (test code = 13.8 G/DL 11.5-15.5 HGB) HCT (test code = 42.4 % 34-46 HCT) MCV (test code = 87.8 FL 80-98 MCV) MCH (test code = 28.6 PG 28-32 MCH) MCHC (test code = 32.5 G/DL 32.5-36.5 MCHC) RDW (test code = 12.1 % 11.5-14.5 RDW) PLT (test code = 277 K/UL 150-450 PLT) MPV (test code = 11.2 FL 7.4-10.4 H MPV) MANDIFF (test code = NO MANDIFF) SCAN (test code = NO SCAN) NEUT% (test code = 51.5 % 40-75 NEUT%) LYMPH% (test code = 37.8 % 24-44 LYMPH%) MONO% (test code = 8.4 % 0-13 MONO%) EOS% (test code = 1.6 % 0-4 EOS%) BASO % (test code = 0.4 % 0-2 BASO%) IG (test code = IG) 0 % 0-1 IG% (test code = 0.3 % 0-1 IG% = Metam yelocytes, IG%) Myelocytes, and Promyelocytes. (Immature neutr ophils not including " bands".) > 3% IG indic ates risk of sepsis NRBC% (test code = 0 /100 WBC NRBC%) ABS NEUT (test code 6.1 K/UL 1.2-7.2 = NEUT) ISTAT [id number] 03:45:00 Test Item Value Reference Range Interpretation Comments ISTAT HCG (test code <5.0 IU/L A value of less than or = ISHCG) equal to <5 IU/ L is considered NEGA TIVE. A value between 5 IU/L and 25 IU/L is cons idered INDETERMINATE. A value of >25 IU/L is considered POSI TIVE. ISTAT [id number] [id number] 03:25:00 Test Item Value Reference Range Interpretation Comments ISTATNA (test code = ISTATNA) 141 MMOL/L 137-145 ISTATK (test code = ISTATK) 3.6 MMOL/L 3.6-5.0 ISTATCL (test code = ISTATCL) 102 MMOL/L 98-107 ISTIONCA (test code = ISTIONCA) 1.17 MMOL/L 1.12-1.32 ISTCO2 (test code = ISTCO2) 25 MMOL/L 22-30 ISTATGLU (test code = ISTATGLU) 93 MG/DL 65-110 ISTATBUN (test code = ISTATBUN) 10.0 MG/DL 7.0-20.0 ISTCREA (test code = ISTCREA) 0.5 MG/DL 0.7-1.5 L ISTATHCT (test code = ISTATHCT) 41 %PCV 37.0-52.0 ISTATHGB (test code = ISTATHGB) 13.9 G/DL 12.0-18.0 ISTANGAP (test code = ISTANGAP) 19 MMOL/L CT ABDOMEN/PELVIS [id number] 07:45:[address] [id number] IMAGING REPORTPatient Name: DEYSI WOLFE BDate of Service: 41-80-5776Gaq: 23 Sex: F Order #: [id number] [facility] 1995 X-Ray Number: [id number] Record Number: [id number] Hospital Number: [id number] Physician: LASHAWN ALIOrdering Physician: RADHA HOLLINS abdomen and pelvis.History: Flank, and/or backpain.Technique: Entirely unenhanced CT axial images of the abdomen and pelviswith sagittal and coronal reformatted images were reviewed.Note: Neither IV nor oral contrast was utilized. The lack of utilization ofcontrast in abdominal imaging limits the assessment.This CT exam was performed using one ormore of the following dosereduction techniques: Automated exposure control, adjustment of the MAand/or KV according to patient size or use of iterative reconstructiontechnique.Comparison: None.Findings:Images of the lower lungs and mediastinum demonstrate no specific defects.There is fatty hepatomegaly suspected.The solid large organs of the upper abdomen appear focally normal.The gallbladder appearsnormal.There is no significant retroperitoneal adenopathy or fluid collectionsdepicted.No obvious bowel abnormalities are depicted.The urinary bladder appears normal. There is no pelvic free fluid seen. Impression:Fatty hepatomegaly.Unenhanced exam.Electronically Signed By: Marlon Antonio M.D., 08/21/2018 7:43 AMLegally authenticated by CHRISTOPH Rodriguez 2018-08-21 07:43:[id number] 22:43:00 Test Item Value Reference Range Interpretation Comments LIPASE (test code = LIPA) 65 U/L 23-300 LIVER [id number] 22:43:00 Test Item Value Reference Range Interpretation Comments TOTPROT (test code = TOTPROT) 7.3 G/DL 6.3-8.2 ALBUMIN (test code = ALBSERUM) 4.1 G/DL 3.5-5.0 BILITOT (test code = BILITOT) 0.2 MG/DL 0.2-1.3 BILIDIR (test code = BILIDIR) 0.2 MG/DL 0.0-0.4 AST (test code = AST) 22 U/L 15-46 PHOSALK (test code = PHOSALK) 60 U/L 38-126 ALT (test code = ALT) 28 U/L 13-69 BMP, BASIC METABOLIC [id number] 22:43:00 Test Item Value Reference Range Interpretation Comments SODIUM (test code = 140 MMOL/L 137-145 NA) K+ (test code = 3.9 MMOL/L 3.5-5.1 PLEASE NOTE NEW KSERUM) REFERENCE RANGE (S) IN EFFECT EFFECTIVE 010 - NEW ANALYZER (V ITROS 5600) CHLORIDE (test code 109 MMOL/L 98-107 H = CL) CO2 (test code = 23 MMOL/L 22-30 CO2) BUN (test code = 8 MG/DL 7-17 BUN) CREA (test code = 0.4 MG/DL 0.7-1.2 L CREA) GLUCOSE (test code 96 MG/DL 70-99 Fasting glucose = GLUCOSE) normal <100 MG/ DL- [employer] recommendation* * CALCIUM (test code 9.3 MG/DL 8.4-10.2 = CABLOOD) GFR (test code = 214 A GFR of >9 0 GFR) mL/min/1.73m2 mL/min/1.73m2 is considered norm al. [id number] 22:07:00 Test Item Value Reference Range Interpretation Comments GLUCOSE (test code = URGLU) NEGATIVE MG/DL NEG-100 BILIRUBN (test code = URBILI) NEGATIVE NEGATIVE KETONE (test code = URKET) NEGATIVE MG/DL NEGATIVE BLOOD (test code = URBLD) TRACE UR PH (test code = URPH) 5.5 5.0-7.5 PROTEIN (test code = URPRO) NEGATIVE MG/DL NEGATIVE NITRITES (test code = URNIT) NEGATIVE NEGATIVE UROBILINGEN (test code = 0.2 EU/DL 0.2-1.0 URURO) LEUKOCYT (test code = URLEU) TRACE NEGATIVE UA COLOR (test code = UA YELLOW YELLOW COLOR) CLARITY (test code = CLARITY) CLOUDY CLEAR SP GRAV (test code = URSPGRAV) 1.022 1.000-1.025 UAMICRO (test code = UAMICRO) YES WBC (test code = URWBC) 22 /HPF 0-5 H RBC (test code = URRBC) 26 /HPF 0-2 H CASTS (test code = CAST) 17 /LPF 0-3 H UR EPI (test code = EPI) 131 /LPF BACTERIA (test code = SMALL NONE BACTERIA) B-HCG QUAL (KIT)2018-08-20 22:06:00 Test Item Value Reference Range Interpretation Comments HCGQUAL (test code = NEGATIVE NEGATIVE URINE: NEGATIVE = < HCGQUAL) 20 mIU/ML; POSI TIVE= >/= 20 mIU/ML S FARIHA: NEGATIVE = < 10 mIU/ML; POSITIV E= >/= 10 mIU/ML SOURCE (test code = URINE SOURCE) HCG INTERNAL POSITIVE PASS PASS CNTRL (test code = HCGIPC) HCG LOT # (test code = [id number] UHCGLOT) HCG EXPIRATION DATE 01-26-20 (test code = UHCGEXP) [id number] 22:03:00 Test Item Value Reference Range Interpretation Comments WBC (test code = 10.1 K/UL 3.5-10.9 WBC) RBC (test code = 4.88 M/UL 4.0-5.0 RBC) HGB (test code = 13.8 G/DL 11.5-15.5 HGB) HCT (test code = 42.1 % 34-46 HCT) MCV (test code = 86.3 FL 80-98 MCV) MCH (test code = 28.3 PG 28-32 MCH) MCHC (test code = 32.8 G/DL 32.5-36.5 MCHC) RDW (test code = 12.1 % 11.5-14.5 RDW) PLT (test code = 281 K/UL 150-450 PLT) MPV (test code = 10.9 FL 7.4-10.4 H MPV) MANDIFF (test code = NO MANDIFF) SCAN (test code = NO SCAN) NEUT% (test code = 51.6 % 40-75 NEUT%) LYMPH% (test code = 37.9 % 24-44 LYMPH%) MONO% (test code = 8.4 % 0-13 MONO%) EOS% (test code = 1.5 % 0-4 EOS%) BASO % (test code = 0.4 % 0-2 BASO%) IG (test code = IG) 0 % 0-1 IG% (test code = 0.2 % 0-1 IG% = Metam yelocytes, IG%) Myelocytes, and Promyelocytes. (Immature neutr ophils not including " bands".) > 3% IG indic ates risk of sepsis NRBC% (test code = 0 /100 WBC NRBC%) ABS NEUT (test code 5.2 K/UL 1.2-7.2 = NEUT)
[2022-03-07] MEDS ORDERED: NA CHLORIDE 0.9% 1,000 ML ONE (17:50)
[2022-03-07] MEDS ORDERED: ONDANSETRON 4 MG/2 ML VIAL ONE (17:50)
[2022-03-07] MEDS ORDERED: MORPHINE 2 MG/ML SYR ONE ×2 (17:50→19:07)
[2022-03-07 18:04] LABS: Absolute Lymphocytes (CBC) 2.5 K/uL (0.7-4.9); Hematocrit 38.8 % (36.0-45.0); Lymphocytes % 30.9 % (15.3-44.8); MCV 84.2 fL (80-100)
[2022-03-07 18:15] LABS: Albumin 3.2 g/dL (3.4-5.0); Bilirubin Total 0.3 mg/dL (0.2-1.0); Potassium 3.7 mmol/L (3.5-5.1); Protein, Total 7.7 g/dL (6.4-8.2)
--- NOTE | 2022-03-07 18:29 | RAD REPORT ---
EXAM DESCRIPTION: CTAbdomen Pelvis W Contrast - 03/07/2022 6:10 pm CLINICAL HISTORY: pt had DNC on 02-27-22, now passing large clots with severe abd pain COMPARISON: Transvaginal OB dated 02/03/2022 TECHNIQUE: CT of the abdomen and pelvis was performed. All CT scans are performed using dose optimization technique as appropriate and may include automated exposure control or mA/KV adjustment according to patient size. FINDINGS: Lower chest: No acute abnormality. Liver: No acute abnormality or suspicious lesions. Biliary: Cholecystectomy Stomach: Partial gastrectomy. Duodenum: No significant focal abnormality. Pancreas: No significant abnormality. Spleen: No significant abnormality. Adrenal: No suspicious lesions. Kidney/ureter: No hydronephrosis. No renal calculi. Retroperitoneum: No retroperitoneal adenopathy. Vascular: No aneurysm. Bowel: No significant focal abnormality. Normal appendix. Peritoneum: No ascites or free air. Bladder: Grossly unremarkable. Reproductive: Endometrial fluid and/or thickening. Corpus luteum in the left ovary. Bones: No acute fracture. Other: n/a IMPRESSION: No acute intra-abdominal or pelvic finding. Normal appendix.
[2022-03-07 18:46] LABS: Urine Blood 3+ (Negative); Urine Glucose Negative (Negative); Urine Protein Trace (Negative); Urine Specific Gravity 1.025 (1.005-1.030)
--- NOTE | 2022-03-07 18:55 | EDPHYS ---
Physician Documentation [facility] Name: Anita Alvarez Age: 26 yrs Sex: Female : 1995 Arrival Date: 03/07/2022 Time: 17:09 Bed 10 Private MD: ED Physician Maxime Rainey HPI: 03/07 17:29 This 26 yrs old Female presents to ER via Ambulatory with complaints of jl9 Abdominal Pain. Patient reports lower abdominal pain since last night. Had D \T\ C on 02/27. . 17:29 The patient presents with abdominal pain right lower quadrant, in the left lower jl9 quadrant. Onset: The symptoms/episode began/occurred yesterday. The symptoms do not radiate. Associated signs and symptoms: Pertinent positives: nausea. The symptoms are described as crampy. Modifying factors: The symptoms are alleviated by nothing, the symptoms are aggravated by nothing. Severity of pain: in the emergency department the pain is a 5 / 10. Historical: - Allergies: 17:48 PENICILLINS; hb - PMHx: 17:48 Hoshimoto's disease; hb - PSHx: 17:20 DNC; kr3 17:48 Cholecystectomy; gastric sleeve; hb - Immunization history:: Adult Immunizations up to date. - Social history:: Smoking status: Patient denies any tobacco usage or history of. ROS: 17:30 Constitutional: Negative for fever, chills, and weight loss, Eyes: Negative for injury, jl9 pain, redness, and discharge, ENT: Negative for injury, pain, and discharge, Neck: Negative for injury, pain, and swelling, Cardiovascular: Negative for chest pain, palpitations, and edema, Respiratory: Negative for shortness of breath, cough, wheezing, and pleuritic chest pain. 17:30 Back: Negative for injury and pain, : Negative for injury, bleeding, discharge, and swelling, MS/Extremity: Negative for injury and deformity, Skin: Negative for injury, rash, and discoloration, Neuro: Negative for headache, weakness, numbness, tingling, and seizure, Psych: Negative for depression, anxiety, suicide ideation, homicidal ideation, and hallucinations, Allergy/Immunology: Negative for hives, rash, and allergies, Endocrine: Negative for neck swelling, polydipsia, polyuria, polyphagia, and marked weight changes, Hematologic/Lymphatic: Negative for swollen nodes, abnormal bleeding, and unusual bruising. 17:30 Abdomen/GI: Positive for abdominal pain, nausea. Exam: 18:32 Constitutional: This is a well developed, well nourished patient who is awake, alert, jl9 and in no acute distress. Head/Face: Normocephalic, atraumatic. Eyes: Pupils equal round and reactive to light, extra-ocular motions intact. Lids and lashes normal. Conjunctiva and sclera are non-icteric and not injected. Cornea within normal limits. Periorbital areas with no swelling, redness, or edema. ENT: Mucous membranes moist. Neck: Trachea midline, no thyromegaly or masses palpated, and no cervical lymphadenopathy. Supple, full range of motion without nuchal rigidity, or vertebral point tenderness. No Meningismus. Chest/axilla: Normal chest wall appearance and motion. Nontender with no deformity. No lesions are appreciated. Cardiovascular: Regular rate and rhythm with a normal S1 and S2. No gallops, murmurs, or rubs. Normal PMI, no JVD. No pulse deficits. Respiratory: Lungs have equal breath sounds bilaterally, clear to auscultation and percussion. No rales, rhonchi or wheezes noted. No increased work of breathing, no retractions or nasal flaring. 18:32 Back: No spinal tenderness. No costovertebral tenderness. Full range of motion. 18:32 Skin: Warm, dry with normal turgor. Normal color with no rashes, no lesions, and no evidence of cellulitis. MS/ Extremity: Pulses equal, no cyanosis. Neurovascular intact. Full, normal range of motion. Neuro: Awake and alert, GCS 15, oriented to person, place, time, and situation. Cranial nerves II-XII grossly intact. Motor strength 5/5 in all extremities. Sensory grossly intact. Cerebellar exam normal. Normal gait. Psych: Awake, alert, with orientation to person, place and time. Behavior, mood, and affect are within normal limits. 18:32 Abdomen/GI: Inspection: abdomen appears normal, Bowel sounds: normal, Palpation: abdomen is soft and non-tender, Rectal exam: 18:32 : Pelvic Exam: The exam is refused by the patient/guardian. The risks and consequences are understood by the patient. Vital Signs: 17:18 BP 143 / 94; Pulse 116; Resp 18; Temp 98.5; Pulse Ox 100% on R/A; Weight 82.55 kg; kr3 Height 5 ft. 2 in. (157.48 cm); Pain 8/10; 19:00 BP 128 / 82; Pulse 88; Resp 16; Pulse Ox 99% on R/A; Pain 5/10; hb 17:18 Body Mass Index 33.29 (82.55 kg, 157.48 cm) kr3 MDM: 17:18 Patient medically screened. 9 18:33 Data reviewed: vital signs, nurses notes. [facility] 18:53 Counseling: I had a detailed discussion with the patient and/or guardian regarding: the jl9 historical points, exam findings, and any diagnostic results supporting the discharge/admit diagnosis, lab results, radiology results, the need for outpatient follow up, to return to the emergency department if symptoms worsen or persist or if there are any questions or concerns that arise at home. Response to treatment: the patient's symptoms have markedly improved after treatment. 18:53 Counseling: I had a detailed discussion with the patient and/or guardian regarding: jl9 Patient improved. Patient states she would like to follow up with her surgeon Wednesday as planned. . 03/07 17:28 Order name: CBC with Diff; Complete Time: 18:15 03/07 17:28 Order name: CMP; Complete Time: 18:25 03/07 17:28 Order name: Lipase; Complete Time: 18:25 03/07 17:29 Order name: Lactate; Complete Time: 18:25 03/07 18:46 Order name: Urine Dipstick-Ancillary; Complete Time: 18:49 EDMS 03/07 17:28 Order name: CT Abd/Pelvis - IV Contrast Only; Complete Time: 18:32 03/07 17:28 Order name: IV Saline Lock; Complete Time: 17:46 03/07 17:28 Order name: Labs collected and sent; Complete Time: 17:46 03/07 17:28 Order name: Urine Dipstick-Ancillary (obtain specimen); Complete Time: 18:46 Administered Medications: 17:48 Drug: NS 0.9% 1000 ml Route: IV; Rate: 1 bolus; Site: right antecubital; hb 18:30 Follow up: Response: No adverse reaction; IV Status: Completed infusion; IV Intake: hb 1000ml 17:48 Drug: Zofran (Ondansetron) 4 mg Route: IVP; Site: right antecubital; hb 18:46 Follow up: Response: No adverse reaction hb 17:48 Drug: morphine 2 mg Route: IVP; Infused Over: 4 mins; Site: right antecubital; hb 18:46 Follow up: Response: No adverse reaction hb 19:02 Drug: Ketorolac 15 mg Route: IVP; Site: right antecubital; hb 19:06 Follow up: Response: Medication administered at discharge. hb 19:02 Drug: morphine 2 mg Route: IVP; Infused Over: 4 mins; Site: right antecubital; hb 19:06 Follow up: Response: Medication administered at discharge. hb Disposition Summary: 03/07/22 18:54 Discharge Ordered Location: Home jl9 Condition: Stable jl9 Diagnosis - Abdominal pain, unspecified jl9 Followup: jl9 - With: Private Physician - When: 1 - 2 days - Reason: Recheck today's complaints, Continuance of care, Re-evaluation by your physician Discharge Instructions: - Discharge Summary Sheet jl9 - Abdominal Pain, Adult jl9 Forms: - Medication Reconciliation Form jl9 - Thank You Letter jl9 - Antibiotic Education jl9 - Prescription Opioid Use jl9 Prescriptions: - Tramadol 50 mg Oral Tablet - take 1 tablet by ORAL route every 8 hours as needed; 12 tablet; Refills: 0, jl9 Product Selection Permitted - ondansetron 8 mg Oral tablet,disintegrating - take 1 tablet by ORAL route every 8 hours As needed; 21 tablet; Refills: 0, jl9 Product Selection Permitted Signatures: Dispatcher [employer] EDKymberly Villa, RN Ibrahima Epps jl9 Renee De La Torre RN RN kr3
--- NOTE | 2022-03-07 18:55 | ER ---
Nurse's Notes [facility] Name: Anita Alvarez Age: 26 yrs Sex: Female : 1995 Arrival Date: 03/07/2022 Time: 17:09 Bed 10 Private MD: Diagnosis: Abdominal pain, unspecified Presentation: 03/07 17:18 Chief complaint: Patient states: severe abdominal cramping, DNC 02/27/22, passing large kr3 clots currently. Coronavirus screen: Vaccine status: Patient reports receiving the 1st dose of the Covid vaccine. Client denies travel out of the [place] in the last 14 days. Ebola Screen: Patient denies travel to an Ebola-affected area in the 21 days before illness onset. Initial Sepsis Screen: Does the patient meet any 2 criteria? No. Patient's initial sepsis screen is negative. Does the patient have a suspected source of infection? Yes: Acute abdominal pain. Risk Assessment: Do you want to hurt yourself or someone else? Patient reports no desire to harm self or others. Onset of symptoms. 17:18 Method Of Arrival: Ambulatory kr3 17:18 Acuity: RAFA 3 kr3 Triage Assessment: 17:21 General: Appears distressed, uncomfortable, Behavior is cooperative, appropriate for kr3 age, crying. Pain: Complains of pain in abdomen Pain currently is 8 out of 10 on a pain scale. GI:. Historical: - Allergies: 17:48 PENICILLINS; hb - PMHx: 17:48 Hoshimoto's disease; hb - PSHx: 17:20 DNC; kr3 17:48 Cholecystectomy; gastric sleeve; hb - Immunization history:: Adult Immunizations up to date. - Social history:: Smoking status: Patient denies any tobacco usage or history of. Screenin:30 Abuse screen: Denies threats or abuse. Denies injuries from another. Nutritional hb screening: No deficits noted. Tuberculosis screening: No symptoms or risk factors identified. Fall Risk None identified. Assessment: 17:30 General: Appears in no apparent distress. Behavior is calm, cooperative. Pain: Pain hb currently is 8 out of 10 on a pain scale. Neuro: Level of Consciousness is awake, alert, obeys commands, Oriented to person, place, time, situation. Cardiovascular: Patient's skin is warm and dry. Respiratory: Respiratory effort is even, unlabored, Respiratory pattern is regular, symmetrical. GI: Reports lower abdominal pain. : No signs and/or symptoms were reported regarding the genitourinary system. EENT: No signs and/or symptoms were reported regarding the EENT system. Derm: Skin is pink, warm \T\ dry. Musculoskeletal: No signs and/or symptoms reported regarding the musculoskeletal system. 19:00 Reassessment: Patient appears in no apparent distress at this time. Patient and/or hb family updated on plan of care and expected duration. Pain level reassessed. Patient is alert, oriented x 3, equal unlabored respirations, skin warm/dry/pink. Vital Signs: 17:18 BP 143 / 94; Pulse 116; Resp 18; Temp 98.5; Pulse Ox 100% on R/A; Weight 82.55 kg; kr3 Height 5 ft. 2 in. (157.48 cm); Pain 8/10; 19:00 BP 128 / 82; Pulse 88; Resp 16; Pulse Ox 99% on R/A; Pain 5/10; hb 17:18 Body Mass Index 33.29 (82.55 kg, 157.48 cm) kr3 ED Course: 17:09 Patient arrived in ED. mr 17:18 Ibrahima Keller is PHCP. jl9 17:18 Maxime Rainey MD is Attending Physician. jl9 17:20 Triage completed. kr3 17:22 Arm band placed on right wrist. Patient placed in an exam room, on a stretcher. kr3 17:30 Patient has correct armband on for positive identification. hb 17:39 Kymberly Sutherland, RN is Primary Nurse. hb 17:46 Inserted saline lock: 20 gauge in right forearm, using aseptic technique. Blood kc6 collected. 17:46 Lactate Sent. kc6 17:46 CBC with Diff Sent. kc6 17:46 CMP Sent. kc6 17:46 Lipase Sent. kc6 18:12 CT Abd/Pelvis - IV Contrast Only In Process Unspecified. EDMS 19:07 No provider procedures requiring assistance completed. IV discontinued, intact, hb bleeding controlled, No redness/swelling at site. Administered Medications: 17:48 Drug: NS 0.9% 1000 ml Route: IV; Rate: 1 bolus; Site: right antecubital; hb 18:30 Follow up: Response: No adverse reaction; IV Status: Completed infusion; IV Intake: hb 1000ml 17:48 Drug: Zofran (Ondansetron) 4 mg Route: IVP; Site: right antecubital; hb 18:46 Follow up: Response: No adverse reaction hb 17:48 Drug: morphine 2 mg Route: IVP; Infused Over: 4 mins; Site: right antecubital; hb 18:46 Follow up: Response: No adverse reaction hb 19:02 Drug: Ketorolac 15 mg Route: IVP; Site: right antecubital; hb 19:06 Follow up: Response: Medication administered at discharge. hb 19:02 Drug: morphine 2 mg Route: IVP; Infused Over: 4 mins; Site: right antecubital; hb 19:06 Follow up: Response: Medication administered at discharge. hb Medication: 17:30 VIS not applicable for this client. hb Intake: 18:30 IV: 1000ml; Total: 1000ml. hb Outcome: 18:54 Discharge ordered by MD. bradley 19:07 Discharged to home ambulatory. hb 19:07 Condition: stable 19:07 Discharge instructions given to patient, Instructed on discharge instructions, follow up and referral plans. medication usage, Demonstrated understanding of instructions, follow-up care, medications, Prescriptions given X 2. 19:07 Patient left the ED. hb Signatures: Dispatcher [employer] ALEENA LagunaAlta Heather, RN Ibrahima [id number] Renee De La Torre RN RN Nadeen Bazzi kc6 Corrections: (The following items were deleted from the chart) 18:47 17:30 GI: Reports lower abdominal pain, upper abdominal pain, hb hb
[2022-03-07] MEDS ORDERED: KETOROLAC 30 MG/ML INJ ONE (19:07)
[2022-03-07 19:30] VITALS: TEMP 98.5
[2022-03-07 19:34] VITALS: BP 128/82; O2SAT 99
== END 2022-03-07 19:07 | disposition home or self-care (01) ==
LOC: ER 17:07
DX: R10.30 Lower abdominal pain, unspecified (principal); Z88.0 Allergy status to penicillin
CPT/HCPCS: 96361; 85025; 36415; 83605; 81003; 83690; 80053; 74177; 96375; 96374; 99284; Q9967; J2270 ×2; J7030; J2405

== ENCOUNTER 2022-05-09 14:57 | Emergency (ER) | payer BC ==
--- OUTSIDE RECORDS SUMMARY | 2022-05-09 15:02 | XMS REPORT | Continuity of Care Document ---
:1995 Author Organization [facility] t Address [address] [place] [address] Care Team Providers Name Role Phone Kamaljit Doyle Primary Care Physician Abi Peñaloza Attending Clinician Unavailable DOUG BLANCAS Attending Clinician Unavailable Yonny ANDRES, Doug Attending Clinician Cj HIRSCH, Timo Attending Clinician TIMO CORONA Attending Clinician Unavailable Doctor Unassigned, [place] Attending Clinician Unavailable AFSHIN LUIS Attending Clinician Unavailable Jr Jeffries Harold S Attending Clinician Unavailable AFSHIN LUIS Admitting Clinician Unavailable Payers Payer Name Policy Type Policy Number Effective Date Expiration Date S noe [facility] [id number] 2020 00:00:00 Problems Condition Condition Condition Status Onset Resolution Last Treating Co mments Source Name Details Category Date Date Treatment Clinician Date Obesity in Obesity in Disease Active 2021-0 U nivers 8-15 ity of 00:: [address] Vaginal Vaginal Disease Active 2021-0 Univers discharge discharge 8-15 ity of during during 00:: [place] 00 Medi jaye in first in first Branch trimester trimester History of History of Disease Active 2021-0 U nivers UTI UTI 8-15 ity of 00:00: [address] History of History of Disease Active 2021-0 U nivers gastric gastric 8-15 ity of bypass bypass 00:00: [address] Well woman Well woman Disease Active 2022-0 U nivers exam with exam with -29 ity of routine routine 00:00: [place] gynecologi gynecologi 00 Me dical jaye exam jaye exam Branch Obesity Obesity Disease Active Univers (BMI (BMI 10-24 ity of 30-39.9) 30-39.9) 00:00: [place] 00 Medical Branch Oral Oral Disease Active Univers contracept contracept 10-24 it y of tay pill tay pill 00:00: [place] surveillan surveillan 00 Me dical ce ce Branch Be' Be' Disease Active U nivers s disease s disease 10-24 ity of 00:00: [place] 00 Medical Branch Essential Essential Disease Active Uni vers hypertensi hypertensi 10-24 it y of on, benign [place] Steatosis Problem Inactiv ADOLFO MCKEON of liver e S Health Elevated Problem Inactiv SCOTT U liver e S enzymes Health Abdominal Problem Inactiv ADOLFO TU pain e S Health Hematuria Problem Inactiv [...] Date Clinician Penicill Drug Active U Not Sikhism ins Allergy Specified 1-18 Hospit a 01:29: l 10 ([facility] [facility]) Penicill Allergy Active Unknown SCOTT U in to 3-14 S substanc 00:00: Health e 00 Penicill Drug Active U Not Sikhism ins Allergy Specified 3-05 Hospit a 16:43: l 13 ([place]) PENICILL Drug Active Hives Univers INS Class 4-15 ity of 00:00: [place] 00 Medical Branch Penicill Propensi Active Hives Univer s ins ty to 4-15 ity of adverse 00:00: [place] reaction 00 Medical s Branch Penicill Propensi Active Hives Univer s ins ty to 4-15 ity of adverse 00:00: [place] reaction 00 Medical s Branch PENICILL Allergy Active [facility] INS to [facility] [place] [facility] Social History Social Habit Start Date Stop Date Quantity Comments Source ASSERTION 2022-01-08 [facility] 00:00:00 [facility] Exposure to 2022-01-26 2022-02-05 Not sure [facility]-CoV-2 00:00:00 14:21:00 [facility] (event) Branch Tobacco use and 2021-10-24 2021-10-24 Smokeless tobacco Un iversity of exposure 00:00:00 00:00:00 non-user [facility] Alcohol intake 2021-10-24 2021-10-24 Ex-drinker [facility] 00:00:00 00:00:00 (finding) [facility] Sex Assigned At [birth year] Universit y of 00:00:00 00:00:00 [facility] Smoking Status Start Date Stop Date Source Never smoked tobacco [facility] Medications Ordered Filled Start Stop Current Ordering Indication Dosage Frequency Signature Comments Components Source Medication Medication Date Date Medication? Clinician (SIG) Name Name Yes Take by Univer s vit/iron 8-15 mouth. ity of fum/folic 15:42: [place] [address] Medical ( 1 Branch + 1 ORAL) DULoxetine Yes 30mg Take 30 mg U nivers (CYMBALTA) 8-15 by mouth ity o f 30 mg 15:42: in the [place] capsule 19 morning. Medical Branch Yes Take by Univer s vit/iron 8-15 mouth. ity of fum/folic 15:42: [place] [address] Medical ( 1 Branch + 1 ORAL) DULoxetine Yes 30mg Take 30 mg U nivers (CYMBALTA) 8-15 by mouth ity o f 30 mg 15:42: in the [place] capsule 19 morning. Medical Branch No known No No known Unive rs medications 8-15 medication it y of 15:42: s [address] Yes Take by Univer s vit/iron 8-15 mouth. ity of fum/folic 15:42: [place] [address] Medical ( 1 Branch + 1 ORAL) DULoxetine Yes 30mg Take 30 mg U nivers (CYMBALTA) 8-15 by mouth ity o f 30 mg 15:42: in the [place] capsule morning. Medical Branch No known No No known Unive rs medications 8-15 medication it y of 15:42: s [place] [facility] Levothyroxi Yes Take by Uni vers ne 137 mcg 8-11 mouth. ity of Cap 14:46: [place] [facility] Levothyroxi Yes Take by Uni vers ne 137 mcg 8-11 mouth. ity of Cap 14:46: [place] [facility] Levothyroxi Yes Take by Uni vers ne 137 mcg 8-11 mouth. ity of Cap 14:46: [place] [facility] norethindro 2021- No [id number] .35mg Take 1 Univers ne (ORTHO 10-24 tablet by ity of [facility]) 00:00: 00:00 mouth [place] 0.35 mg 00 [...] TAB.RAPDIS 00 Nausea / Vomiting Nystatin No [id number] Four Times C HRISTU (Nystatin 3-18 Daily [...] Immunizations Ordered Filled Immunization Date Status Comments [facility] e Immunization Name Name SARS-COV-2 COVID-19 2021-02-25 Completed Unive rsity of MODERNA VACCINE 00:00:00 [facility] SARS-COV-2 COVID-19 2021-02-25 Completed Unive rsity of MODERNA VACCINE 00:00:00 [facility] SARS-COV-2 COVID-19 2021-02-25 Completed Unive rsity of MODERNA VACCINE 00:00:00 [facility] SARS-COV-2 COVID-19 2021-02-25 Completed Unive rsity of MODERNA VACCINE 00:00:00 [facility] SARS-COV-2 COVID-19 2021-02-25 Completed Unive rsity of MODERNA 12+ YRS 00:00:00 [facility] Vital Signs Vital Name Observation Time Observation Value Comments Source Systolic blood 2022-02-09 126 mm[Hg] [facility] pressure 20:41:00 Medical Branch Diastolic blood 2022-02-09 90 mm[Hg] [facility] pressure 20:41:00 Medical Branch Heart rate 2022-02-05 84 /min [facility] ex 19:35:00 Medical Branch Body temperature 2022-02-05 36.5 Malou [facility] 19:35:00 [facility] Branch Respiratory rate 2022-02-05 18 /min [facility] 19:35:00 Medical Branch Body height 2022-02-05 157.5 cm [facility] 19:35:00 Medical Branch Body weight 2022-02-05 83.825 kg [facility] 19:35:00 Medical Branch BMI 2022-02-05 33.80 kg/m2 [facility] 19:35:00 Medical Branch BP Diastolic 2018-11-15 110 mm[Hg] [facility] 00:00:00 [facility] Height 2018-11-15 62 [in_i] [facility] 00:00:00 [facility] BMI (Body Mass 2018-11-15 45.9 kg/m2 [facility] [place] [facility] as Index) 00:00:00 [facility] BP Systolic 2018-11-15 161 mm[Hg] [facility] 00:00:00 [facility] Body Weight 2018-11-15 251 [lb_av] [facility] 00:00:00 [facility] BP Diastolic 2018-10-04 71 mm[Hg] [facility] 00:00:00 [facility] Height 2018-10-04 62 [in_i] [facility] 00:00:00 [facility] BMI (Body Mass 2018-10-04 44.6 kg/m2 [facility] [place] [facility] as Index) 00:00:00 [facility] BP Systolic 2018-10-04 123 mm[Hg] [facility] 00:00:00 [facility] Body Weight 2018-10-04 244 [lb_av] [facility] 00:00:00 [facility] Body Temperature 2019-06-12 [...] 15:36:00 BMI (Body Mass 2019-06-12 39.3 kg/m2 [facility] th Index) 15:36:00 Weight 2019-06-12 215 [lb_av] [facility] 15:26:00 Respiratory rate 2019-01-29 22 /min [facility] alth 11:35:00 Procedures Procedure Date / Time Performing Clinician Source Performed GC & CHLAMYDIA 2022-02-05 20:23:00 [facility] o f [place] AMPLIFIED [facility] TRICHOMONAS AMPLIFIED 2022-02-05 20:23:00 Yonny Doug [facility] ASSAY [facility] POCT TEST 2022-02-05 00:00:00 [facility] Doug [facility] POCT URINALYSIS W/O 2022-02-05 00:00:00 [facility] SPECIFIC GRAVITY [facility] REFERRAL- 2022-01-22 05:01:00 Doctor Unassigned, Mckenna [facility] REQUEST/RESPONSE Name [facility] Plan of Care Planned Activity Planned Date Details Comments Source Future Appointment 2023-10-26 Jah Valle, [address] [place] [address] 00:00:[address] G[facility] [address]; , [place] [address] Instructions [facility] Encounters Start End Encounter Admission Attending Care Care Encounter Source Date/Time Date/Time Type Type Clinicians Facility Department ID 2022 2022 Outpatient Abi Peñaloza [facility] [id number] [facility] 12:30:00 12:30:00 [facility] 2022 2022 Outpatient Abi Peñaloza [facility] [id number] [facility] 12:30:00 12:30:00 [facility] 2022-02-27 2022-02-27 Outpatient Abi Peñaloza [facility] [id number] [facility] 12:24:00 12:24:00 [facility] [place] [facility] 2022-02-12 2022-02-12 Outpatient R DOUG BLANCAS [facility] [id number] [facility] [place] [facility] 16:00:00 16:00:[address] [facility] 2022-02-12 2022-02-12 Telephone Doug Blancas [facility] 1.2.840.11 [id number] Univers 00:00:00 00:00:00 JAIME 350.1.13.10 [place] [facility] [id number] [address] 2022-02-10 2022-02-10 Telephone JUSTIN Corona MARI 1.2.840.11 [id number] Univers 00:00:00 00:00:00 Timo SANDOVAL 350.1.13.10 it [place] [facility] [id number] [address] 2022-02-09 2022-02-09 Outpatient R KATHYTIMO WONG [facility] B [id number] Univers 13:30:00 13:50:52 TIMO CORONA [facility] 2022-02-09 2022-02-09 Outpatient R KATHYTIMO WONG [facility] B [id number] Univers 13:30:00 13:50:52 CJ TIMO [facility] 2022-02-09 2022-02-09 Routine [facility] 1.2.840.114 [id number] Univers 13:30:00 13:50:52 Timo SANDOVAL 350.1.13.10 i ty of Visit WOMENS 4.2.7.2.686 [facility] [id number] [address] 2022-02-09 2022-02-09 Telephone Doug Blancas [facility] 1.2.840.11 [id number] Univers 00:00:00 00:00:00 JAIME 350.1.13.10 it [place] [facility] [id number] [address] 2022-02-05 2022-02-05 Outpatient R YONNY DOUG [facility] [id number] Univers 14:30:00 15:29:[address] [facility] 2022-02-05 2022-02-05 Initial YonnyDoug [facility] 1.2.840.114 [id number] Univers 14:30:00 15:29:27 [facility] 350.1.13.10 ity of Visit [place] [id number] Wa dical NAL [address] [place] [address] 2022-02-05 2022-02-05 Letter Doug Blancas [facility] 1.2.840.114 [id number] Univers 00:00:00 00:00:00 (Out) ANGLEFELISHA 350.1.13.10 i ty of [place]2.7.2.686 [place] [id number] Wa dical NAL [address] [place] [address] 2022-02-04 2022-02-04 Telephone Doug Blancas [facility] 1.2.840.11 [id number] Univers 00:00:00 00:00:00 JAIME 350.1.13.10 it y of [place]2.[place] [id number] [address] 2022-01-22 2022-01-22 Orders Doctor ALEX 1.2.840.114 [id number] Univers 00:00:00 00:00:00 Only Unassigned, SERAFIN 350.1.13.10 ity of [place] [facility] 4.2.7.2.686 Tj as [id number] [address] 2021-10-24 2021-10-24 Office Cj [facility] 1.2.840.114 [id number] Univers 11:30:00 12:15:20 Visit Timo JAIME 350.1.13.10 it [place]2.[place] [id number] [address] 2021-10-24 2021-10-24 Outpatient R TIMO CORONA [facility] B [id number] Univers 11:30:00 12:15:[address] [facility] 2021-10-24 2021-10-24 Outpatient R TIMO CORONA [facility] B [id number] Univers 11:30:00 11:30:[address] [facility] 2021-10-24 2021-10-24 Orders Doctor ABI 1.2.840.114 [id number] Univers 00:00:00 00:00:00 Only Unassigned, SERAFIN 350.1.13.10 ity of [place] [facility] 4.2.7.2.686 Tj as [id number] [place] [address] Branch 2019-07-15 2019-07-15 Emergency UCBAMICHAEL BHSSET QER 1201 [id number]- Sikhism 01:27:00 01:27:00 , ELANIE [id number] Hosp ana l ([facility]) 2019-06-12 2019-06-12 Departed TYREL LOFTON [id number] [facility] 15:21:00 18:15:[address] [facility] 2018-11-15 2018-11-15 Jah GARZA [place] - [phone] [facility] 00:00:00 00:00:00 [facility] [address] [facility], DO: [address] Gastroenter Ga stroe 14[facility], OFFICE gy [address], [place] Tonja [facility] [address] , Ph. 2018-10-04 2018-10-04 Erica GARZA [place] - [phone]- [phone] [facility] 00:00:00 00:00:00 [facility] [address] FNPC: [address] [place] [address] Gastroenter G [facility] [address], [place] [address] , Ph. 2018-04-13 2018-04-13 Outpatient Jr Jeffries SETENT SETENT 2268 69 [facility] 10:18:00 10:18:00 [facility]ose [facility] Th[facility] Results Test Description Test Time Test Comments Results Result Comments Source SURGICAL 2022-03-16 16:59:00 Test Item Value Reference Range Interpretation Comme brigitte SURGICAL RUN (test DATE: 03/16/22 [facility] PAGE 1 RUN TIME: 1700 Specimen Inquiry RUN USER: INTERFACE code = RIA SR) ENT: WOLFEKRISTAY [facility] #: [id number] AGE/SX: 27/F ROOM: RE03/13/22REG DR: Abi Peñaloza III, MD : 97 BED: DIS: STATUS: REG REF TLOC: SPEC #: [id number] RECD: 03/13/22 STATUS: SARAHI RE #: [id number] RONI: 03/12/22-1130 [facility] DR: Abi Peñaloza III, MD ENTE RED: 03/13/22-1311 SP TYPE: SURGICAL OTHR DR: ORDERED: ANATOMIC SPEC, SPEC TRACK, [id number] PROC EDURES: [id number] (03/16/22-1400) TISSUES: A. PRODUCTS OF CONCEPTION - INDUCED FINAL DIAGN OSIS UTERUS, "RETAINED PRODUCTS OF CONCEPTION", DILATATION AND CURETTAGE:-trophoblastic stephanie ments identified in close association with myometrial tissue, compatiblewith the provided history of retained products of conception-abundant fragments of endometrium associated break down without any hyperplasia ormalignancy-strips and fragments of benign endocervical tissue w ithout any evidence of dysplasia ormalignancy GROSS DESCRIPTION Specimen received in formali n, labeled with patient's name, MRN, date of and POC. Itconsists of a 3.2 x 1.9 x 0.5 cm aggregate of multiple pieces of leon-brown tissue and tinyblood clots. No pa rts identified grossly. Specimen is entirely submitted in 2cassettes A1-A2.aj03/13/22 Unless gross only, the diagnosis is b ased upon microscopic examination.Immunohistochemistry: This test was developed and its performance characteristicsdetermined by this laboratory. It has not been approved nor does it need approval by [place] FDA. Appropriate po sitive and negative controls are reviewed and judged to beacceptable. This laborator y is certified under the Clinical Laboratory ImprovementAmendments (CLIA-88) as qualified to [facility] high complexity clinical laboratory testing. CLINICAL INFORMATION 03/12/22, OUT OF BODY 1130A, IN FORMALIN 1332, RETAINED PRODUCTS OF CONCEPTION. ------- Signed SIGNATURE ON FILE [place] 02/26 03/19 9956 END OF REPORT [id number] 14:46:00 Test Item Value Reference Range Interpretation Comments SURGICAL (test code = SR) R UN DATE: 03/03/22 [facility] PAGE 1 RUN TIME: 1446 Specimen Inquiry RUN USER: INTERFACE P ATIENT: DEYSI WOLFE [facility] U #: [id number] AGE/SX: ROOM: RE02/27/22REG DR: Abi Peñaloza III, MD : 97 BED: DIS: STATUS: REG REF TLOC: SPEC #: [id number] RECD: 02/27/22 STATUS: SARAHI [facility] #: [id number] RONI: 02/27/22-[address] [facility] [address]: Abi Peñaloza III, MD ENTERED: 02/27/22 SP TYPE: SURGICAL OT DR: ORDERED: ANATOMIC SPEC, SPEC TRACK, [id number] PROCEDURES: [id number] (02/27/22) TISSUES: A. PRODUCTS OF CONCEPTION - SPONTANEOUS/MISSED FINAL DIAGNOSIS A. UTERUS, "PRODUCTS OF CONCEPTION", CONTENTS: -Chorionic villi identified. -Decidua with necrosis and inflammation. -Consistent with products of conception. GROSS DESCRIPTION Specimen received in formalin, labeled with patient name, MRN, date of and POC. Itconsists of a 4.5 x 2.9 x 1.7 cm aggregate of multiple pieces of soft red-brown tissue anddark red blood clots. No parts identified grossly. Specimen is entirely submittedin 4 cassettes A1-A4.02/27/22 Technical component performed at [facility], [place] [address] Unless gross only, the diagnosis is based upon microscopic examination.Immunohistochemistr y: This test was developed and its performance characteristicsdetermined by this laboratory. It has not been approved nor does it need approval by [place] FDA. Appropriate positive and negative controls are reviewed and judged to beacceptable. This laboratory is certified under the Clinical Laboratory ImprovementAmendments (CLIA-88) as qualified to perform high complexity clinical laboratory testing. CLINICAL INFORMATION 02/27/22, OUT OF BODY 1026A, IN FORMALIN 1026, MISSED AB 002.1. ----- Signed SIGNATURE ON FILE Rush Bess 03/03/22 1446 END OF REPORT POCT URINALYSIS W/O SPECIFIC [id number] 19:35:00 Test Item Value Reference Range Interpretation Comments POCT PH U (test code = 6314) n/a 5-8 POCT U LEUK EST (test code = n/a Negative - Negative 5043) POCT U NIT (test code = 3262) n/a Negative - Negative POCT U PROT (test code = 3259) negative Negative - Negative POCT U GLU (test code = 3256) negative Negative - Negative POCT U KETONE (test code = 3258) n/a Negative - Negative POCT U BLD (test code = 3257) n/a Negative - Negative [id number] 19:34:00 Test Item Value Reference Range Interpretation Comments POCT PREG (test code = 1605) Positive On board controls acceptable with C Yes Line (test code = 3574) POCT PREG LOT # (test code = 3575) POCT PREG TEST DATE (test code = 3576) [facility]2019-07-15 04:00:00 Test Item Value Reference Range Interpretation Comments HCGQUAL (test code = NEGATIVE NEGATIVE URINE: NEGATIVE = < HCGQUAL) 20 mIU/ML; POSI TIVE= >/= 20 mIU/ML S FARIHA: NEGATIVE = < 10 mIU/ML; POSITIV E= >/= 10 mIU/ML SOURCE (test code = URINE SOURCE) HCG INTERNAL POSITIVE PASS PASS CNTRL (test code = HCGIPC) HCG LOT # (test code = 8938294 UHCGLOT) HCG EXPIRATION DATE 10-16 (test code = UHCGEXP) [id number] 03:58:00 Test Item Value Reference Range Interpretation [...] BACTERIA (test code = MODERATE NONE BACTERIA) Urine sediment hyaline cast count by microscopy (number/low power field) 2019-06-12 16:35:00 Test Item Value Reference Range Interpretation Comments Urine Hyaline Casts (test code = 2-5 /[LPF] 0-1 5796-8) [facility] detection in urine sediment by light [id number] 16:35:00 Test Item Value Reference Range Interpretation Comments Urine Yeast (test code = None Seen /[HPF] None 19832-1) [facility] comment 16:35:00 Test Item Value [...] Indicated (test code To follow = 8264-4) [facility] HealthUrinalysis specimen collection [id number] 16:35:00 Test Item Value Reference Range Interpretation Comments Urine Source (test code = 86033-0) URINE SCOTT HealthColor of Urine by [id number] 16:35:00 Test Item Value Reference Range Interpretation Comments Urine Color (test code = 73137-9) Yellow Yel-Diane * [facility] HealthUrine clarity [id number] 16:35:00 Test Item Value Reference Range Interpretation Comments Urine Appearance (test code = 28353-7) Clear Clear * [facility] HealthUrine pH measurement by automated test [id number] 16:35:00 Test Item Value Reference Range Interpretation Comments Urine pH (test code = 99686-1) 5.0 5.0-8.0 [facility] HealthSpecific gravity of Urine by Automated test [id number] 16:35:00 Test Item Value Reference Range Interpretation Comments Urine Specific [place] (test code = 1.029 1.005-1.030 98899-2) [facility] HealthUrine protein measurement by automated test strip (mass/volume) 2019-06-12 16:35:00 Test Item Value Reference Range Interpretation Comments Urine Protein (test code = 60506-6) 10 mg/dL Negative * [facility] HealthUrine glucose measurement by automated test strip (mass/volume) 2019-06-12 16:35:00 Test Item Value Reference Range Interpretation Comments Urine Glucose (UA) (test code Negative mg/dL Negative * = 22474-1) [facility] Health[facility]rine ketones measurement by automated test strip (mass/volume) 2019-06-12 16:35:00 Test Item Value Reference Range Interpretation Comments Urine Ketones (test code = Trace mg/dL Negative * 02176-3) [facility]Urine erythrocytes count by automated test strip (number/volume) 2019-06-12 16:35:00 Test Item Value Reference Range Interpretation Comments Urine Occult Blood (test code = Negative Negative * 62934-7) [facility] HealthUrine nitrite detection by automated test [id number] 16:35:00 Test Item Value Reference Range Interpretation Comments Urine Nitrite (test code = 77347-0) Negative Negative [facility]rine total bilirubin measurement by automated test strip (mass/volume)2019-06-12 16:35:00 Test Item Value Reference Range Interpretation Comments Urine Bilirubin (test code = Negative mg/dL Negative 94544-9) [facility] HealthUrine urobilinogen measurement by automated test strip (mass/volume)2019-06-12 16:35:00 Test Item Value Reference Range Interpretation Comments Urine Urobilinogen (test code Negative mg/dL 0.0-1.0 = 26824-2) [facility] HealthUrine leukocytes count by automated test strip (number/volume) 2019-06-12 16:35:00 Test Item Value Reference Range Interpretation Comments Urine Leukocyte Esterase Negative {Darcie}/uL Negative (test code = 83478-7) [facility] HealthMicroscopic examination of [id number] 16:35:00 Test Item Value Reference Range Interpretation Comments Microscopic Urinalysis (T) (test code = ----- 37066-9) [facility] HealthUrine sediment erythrocyte count by microscopy (number/high power field)2019-06-12 16:35:00 Test Item Value Reference Range Interpretation Comments Urine RBC (test code = 28528-9) 0-2 /[HPF] 0-2 [facility] HealthUrine sediment leukocyte [...] code = None Seen /[HPF] None * 59991-0) [facility] HealthUrine sediment bacteria count by microscopy (number/high power field)2019-06-12 16:35:00 Test Item Value Reference Range Interpretation Comments Urine Bacteria (test code = Few /[HPF] None 5769-5) [facility] HealthUrine sediment casts count by microscopy (number/low power field) 2019-06-12 16:35:00 Test Item Value Reference Range Interpretation Comments Urine Casts (test code = Present /[LPF] None * 9842-6) [facility] HealthSerum or plasma sodium measurement (moles/volume)2019-06-12 [...] Dioxide Level (test code = 23 mmol/L -2027-9) [facility] HealthSerum or plasma anion gap determination (moles/volume)2019-06-12 16:25:00 Test Item Value Reference Range Interpretation Comments Anion Gap (test code = 01232-5) 14 8-18 [facility] HealthSerum or plasma urea nitrogen measurement (mass/volume)2019-06-12 16:25:00 Test Item Value Reference Range Interpretation Comments Blood Urea Nitrogen (test code = 10 mg/dL 7-19 3094-0) [facility] HealthSerum or plasma creatinine measurement (mass/volume)2019-06-12 16:25:00 Test Item Value Reference Range Interpretation Comments Creatinine (test code = 2160-0) 0.7 mg/dL 0.6-1.1 [facility] HealthGFR estimate [id number] 16:25:00 Test Item Value Reference Range Interpretation Comments Estimat Glomerular Filtration Rate 111 90-142 (test code = 84887-7) [facility] HealthSerum or plasma glucose measurement (mass/volume)2019-06-12 16:25:00 Test Item Value Reference Range Interpretation Comments Glucose Level (test code = 2345-7) 127 mg/dL 60-100 [facility] HealthSerum or plasma calcium measurement (mass/volume)2019-06-12 16:25:00 Test Item Value Reference Range Interpretation Comments Calcium Level (test code = 50292-4) 9.5 mg/dL 8.4-10.2 [facility] HealthSerum or plasma [...] (test code = 3040-3) 21 U/L 8-78 [facility] HealthAutomated blood leukocyte count (number/volume)2019-06-12 16:25:00 Test [...] HealthAutomated erythrocyte mean corpuscular hemoglobin concentration measurement (mass/[id number] 16:25:00 Test Item Value Reference Range Interpretation Comments Mean Corpuscular Hemoglobin Concent 31.6 g/dL 33.0-37.0 (test code = 786-4) [facility] HealthAutomated erythrocyte distribution width [id number] 16:25:00 Test Item Value Reference Range Interpretation Comments Red Cell Distribution Width (test code 12.3 % 10.7-14.5 = 788-0) [facility] HealthAutomated blood platelet count (count/volume)2019-06-12 16:25:00 Test Item Value Reference Range Interpretation Comments Platelet Count (test code = 295 10*3/uL 150-450 777-3) [facility] HealthAutomated blood platelet mean volume [id number] 16:25:00 Test Item Value Reference Range Interpretation Comments Mean Platelet Volume (test code = 11.0 5.7-10.7 72606-3) [facility]Service comment [id number] 16:25:00 Test Item Value Reference Range Interpretation Comments Manual Differential (test code = ----- 8265-1) [facility] HealthManual blood segmented neutrophils/100 [id number] 16:25:00 Test Item Value Reference Range Interpretation Comments Neutrophils % (Manual) (test code = 47 % 42-75 769-0) [facility] HealthManual blood band neutrophils form/100 [id number] 16:25:00 Test Item Value Reference Range Interpretation Comments Band Neutrophils % (Manual) (test code 4 % 5-11 = 764-1) [facility] HealthManual blood lymphocytes/100 [id number] 16:25:00 Test Item Value Reference Range Interpretation Comments Lymphocytes % (Manual) (test code = 43 % 21-51 737-7) [facility] HealthManual blood monocytes/100 [id number] 16:25:00 Test Item Value Reference Range Interpretation Comments Monocytes % (Manual) (test code = 4 % 1-9 744-3) [facility] HealthManual blood eosinophil count as percentage of total leukocytes 2019-06-12 16:25:00 Test Item Value Reference Range Interpretation Comments Eosinophils % (Manual) (test code = 1 % 0-7 714-6) [facility] HealthManual blood basophils/100 [id number] 16:25:00 Test Item Value Reference Range Interpretation Comments Basophils % (Manual) (test code = 1 % 0-2 707-0) [facility] HealthBlood platelet detection by light [id number] 16:25:00 Test Item Value Reference Range Interpretation Comments Platelet Estimate (test code = Adequate 9317-9) [facility] finding [id number] 16:25:00 Test Item Value Reference Range Interpretation Comments Red Blood Cell Morphology (test code = Normal 6742-1) ROLLY OrtizUNIVERSITY HOSPITALS CONNEAUT MEDICAL CENTERKai 1 VIEW [id number] 07:15:[address] [id number] IMAGING REPORTPat ient Name: DEYSI WOLFE BDate of Service: 04-28-9580Amg: 23 Sex: F Order #: [id number] Room: ERSDOB: 1995 X-Ray Number: [id number] Record Number: [id number] Hospital Number: [id number] Physician: GABBY THOMASOrdering Physician: JOAQUIN CODY ONE VIEW 12/25/2018HISTORY: Left chest painCOMPARISON: NoneCardiac, hilar, and mediastinal structures are normal. Lungs arewell-aerated and clear. No effusion or pneumothorax. No acute bony or softtissue abnormalities are identified.IMPRESSION:Clear chest.The study was performed on an emergent basis and preliminary report faxedto the Emergency Department by the [facility] nearthe time of the exam.Electronically Signed By: Arturo Moore M.D., 12/25/2018 7:13 AMLegally authenticated by JOY FRANCO 2018-12-25 07:13:[id number] 02:24:00 Test Item Value Reference Range Interpretation Comments %CKMB (test code = TNP % UNABLE TO %MB) CALCULATE RESUL TS DUE TO CKMB <0. 22 NG/ML. CKMB (test code = <0.22 NG/ML 0.22-2.4 CKMB) CK (test code = 55 U/L 30-135 CK) CKINTERP (test NEGATIVE Negative code = CKINTERP) TROPONIN I - [id number] 02:23:00 Test Item Value Reference Range Interpretation Comments TROP-I (test code <0.012 ng/ml 0.012-0.033 IN TERPRETIVE = TROP-I) DATA A TR OPONIN OF LESS THAN 0.034 NG/ML IS CONSIDERED NEGA TIVE A TROPONIN OF 0.0 34 - 0.119 NG/ML IS CONSIDERED REGAN ZONE A TROPONIN =/> 0. 120 NG/ML IS CONSIDERED P OSITIVE [id number] 02:17:00 Test Item Value Reference Range Interpretation Comments LIPASE (test code = LIPA) 84 U/L 23-300 [id number] 02:17:00 Test Item Value Reference Range Interpretation [...] glucose = GLUCOSE) normal <100 MG/ DL- [employer] recommendation* * CALCIUM (test [...] mL/min/1.73m2 mL/min/1.73m2 is considered norm al. D-DIMER, [id number] 02:14:00 Test Item Value Reference Range Interpretation [...] HCGIPC) HCG LOT # (test code = [id number] UHCGLOT) HCG EXPIRATION DATE 05-27-20 (test code = UHCGEXP) [id number] 02:01:00 Test Item Value Reference Range Interpretation [...] 1.000-1.025 UAMICRO (test code = UAMICRO) NO [id number] 01:50:00 Test Item Value Reference Range Interpretation [...] Comprehensive metabolic 2000 panel - Serum or [id number] 00:00:00 Test Item Value Reference Range Interpretation [...] = 160 U/L 58-154 H alkaline phosphatase) [facility] W Auto Differential panel - Blood [...] (test code = manual not ind diff?) [facility] AssociatesPATHOLOGY [id number] 08:19:00 TISSUE CONSULTATION REPORTBAPTTEXAS HEALTH HARR[facility] FORT WORTHDEPARTMENT OF PATHOLOGYP.O[address] [address] ISH PIRES M.D.ROBERT L. HUTTON, M.D.CHARLES E. BURNS, M.D. ____Patient: DEYSI WOLFE 1995 23 FRoom:Hosp#: [id number] Ordering Physician: ROHITH VALLE Rec.: 08/31/2018Date of Proc.: 08/31/2018Lab No.: [id number] FINAL ANATOMIC DIAGNOSIS:STOMACH, BIOPSY:- CHRONIC INACTIVE GASTRITIS WITH SUPERIMPOSED REACTIVE CHANGE.- NEGATIVE FOR HELICOBACTER FORMS BY JENNIFER STAIN.- NEGATIVE FOR INTESTINAL METAPLASIA BY AB/PAS STAIN.- NEGATIVE FOR DYSPLASIA OR MALIGNANCY.MICROSCOPIC EXAMINATION:Performed; see diagnosis.GROSS APPEARANCE:The specimen is labeled "random gastric biopsy." Submitted informalin are two yellow-leon mucosal fragments measuring 0.5 x 0.3 x0.2 cm in aggregate, ET one block wraps.PATHOLOGIST: Mane Ledesma Electronically Signed: 09/01/[id number] 07:46:00 Test Item Value Reference Range Interpretation [...] glucose = GLUCOSE) normal <100 MG/ DL- [employer] recommendation* * CALCIUM (test [...] GFR) mL/min/1.73m2 mL/min/1.73m2 is considered norm al. [id number] 07:19:00 Test Item Value Reference Range Interpretation [...] 4.6 K/UL 1.2-7.2 = NEUT) ACUTE HEPATITIS [id number] 03:34:00 Test Item Value Reference Range Interpretation [...] sent to reference lab f or confirmation. [id number] 17:52:00 Test Item Value Reference Range Interpretation [...] glucose = GLUCOSE) normal <100 MG/ DL- [employer] recommendation* * CALCIUM (test [...] GFR) mL/min/1.73m2 mL/min/1.73m2 is considered norm al. [id number] 17:52:00 Test Item Value Reference Range Interpretation Comments LIPASE (test code = LIPA) 65 U/L 23-300 [id number] 17:33:00 Test Item Value Reference Range Interpretation [...] 6.1 K/UL 1.2-7.2 = NEUT) CT ABDOMEN/PELVIS [id number] 07:30:[address] [id number] IMAGING REPORTPatient Name: DEYSI WOLFE BDate of Service: 91-86-4098Azq: 23 Sex: F Order #: 600 Room: [facility]: 1995 X-Ray Number: [id number] Record Number: [id number] Hospital Number: [id number] Physician: KIERA DELA CRUZ Physician: FRANK ASH [...] 7:28 AMLegally authenticated by TORRIE CARRION 2018-08-30 07:28:[id number] 21:58:00 Test Item Value Reference Range Interpretation [...] HCGIPC) HCG LOT # (test code = 8572684 UHCGLOT) HCG EXPIRATION DATE 01-14 (test code = UHCGEXP) [id number] 19:28:00 Test Item Value Reference Range Interpretation Comments LIPASE (test code = LIPA) 48 U/L 23-300 [id number] 19:28:00 Test Item Value Reference Range Interpretation [...] glucose = GLUCOSE) normal <100 MG/ DL- [employer] recommendation* * CALCIUM (test [...] GFR) mL/min/1.73m2 mL/min/1.73m2 is considered norm al. [id number] 19:21:00 Test Item Value Reference Range Interpretation [...] 8.3 K/UL 1.2-7.2 H = NEUT) PATHOLOGY [id number] 09:33:00TISSUE CONSULTATION REPORTBAPTTEXAS HEALTH HARRIS [facility]IST [facility] FORT WORTHDEPARTMENT OF PATHOLOGYP.O[address] [address] ROBCSQ ISH ROJAS M.D.ROBERT L. HUTTON, M.D.CHARLES E. BURNS, M.D. ____Patient: YANETHKRISTALelia Ornelas 1995 23 FRoom:Hosp#: [id number] Ordering Physician: JUAN MERAZ Rec.: 08/26/2018Date of Proc.: 08/25/2018Lab No.: [id number] PRE-OPERATIVE DIAGNOSIS:Chronic cholecystitisFINAL ANATOMIC DIAGNOSIS:GALLBLADDER, CHOLECYSTECTOMY: CHRONIC [...] within the distal fundus of the gallbladder, consistentwith a Phrygian cap abnormality. The wall ranges from 1-2 mm inthickness. Sections are submitted in a single cassette.PATHOLOGIST: Roberto Genao Electronically Signed: 08/29/2018ABDOMEN 2 [id number] 07:15:[address] [id number] IMAGING REPORTPatient Name: DEYSI WOLFE BDate of Service: 39-29-8111Uql: 23 Sex: F Order #: 600 [facility] 1995 [facility] Number: [id number] Record Number: [id number] Hospital Number: [id number] Ph ysician: Marbella THOMAS Physician: Radha THOMAS [...] report faxedto the Emergency Department by the [facility] nearthe time of the exam.Electronically [...] HCGIPC) HCG LOT # (test code = [id number] UHCGLOT) HCG EXPIRATION DATE 01-14 (test code = UHCGEXP) [id number] 05:07:00 Test Item Value Reference Range Interpretation [...] (test code = URMUCOUS) MUCH /LPF NONE [id number] 04:11:00 Test Item Value Reference Range Interpretation [...] K/UL 1.2-7.2 = NEUT) BMP, BASIC METABOLIC [id number] 04:03:00 Test Item Value Reference Range Interpretation [...] glucose = GLUCOSE) normal <100 MG/ DL- [employer] recommendation* * CALCIUM (test code 8.7 MG/DL 8.4-10.2 = CABLOOD) GFR (test code = 166 A GFR of >9 0 GFR) mL/min/1.73m2 mL/min/1.73m2 is considered norm al. LIVER [id number] 04:03:00 Test Item Value Reference Range Interpretation [...] code = ALT) 428 U/L 13-69 H [id number] 04:03:00 Test Item Value Reference Range Interpretation Comments LIPASE (test code = LIPA) 157 U/L 23-300 [id number] 13:45:00 Test Item Value Reference Range Interpretation [...] glucose = GLUCOSE) normal <100 MG/ DL- [employer] recommendation* * CALCIUM (test [...] GFR) mL/min/1.73m2 mL/min/1.73m2 is considered norm al. [id number] 12:43:00 Test Item Value Reference Range Interpretation [...] 1.2-7.2 H = NEUT) US LIMITED ABD [id number] 07:27:[address] [id number] IMAGING REPORTPatient Name: DEYSI WOLFE BDate of Service: 47-22-2438Zlj: 23 Sex: F Order #: 600 [facility] 1995 X-Ray Number: [id number] Record Number: [id number] Hospital Number: [id number] Physician: Nate THOMASing Physician: Ladarius THOMAS upper quadrant abdominal ultrasound 08/25/2018History: Abdominal pain and nausea for several weeksComparison CT of 08/20/2018The liver again showsincreased echotexture consistent with fattyinfiltration. Prominence of the right liver is at least in part due to aRiedel's lobe. Multiple anechoic structures scattered in the liver measureup to 1.9 cmand may be due to cysts. These are not clearly seen on theprior CT which was performed without contra st.Common bile duct diameter is 4 mm.Gallbladder wall [...] 7:25 AMLegally authenticated by JOY FRANCO 2018-08-25 07:25:[id number] 07:14:00 Test Item Value Reference Range Interpretation Comments BLOOD TYPE (test code = TYPE) A Rh Negative ANTIBODY SCREEN (test code = NEGATIVE NEGATIVE SCREEN) [id number] 03:58:00 Test Item Value Reference Range Interpretation Comments LIPASE (test code = LIPA) 57 U/L 23-300 LIVER [id number] 03:58:00 Test Item Value Reference Range Interpretation [...] (test code = ALT) 35 U/L 13-69 [id number] 03:52:00 Test Item Value Reference Range Interpretation [...] 1.000-1.025 UAMICRO (test code = UAMICRO) NO [id number] 03:48:00 Test Item Value Reference Range Interpretation [...] code 6.1 K/UL 1.2-7.2 = NEUT) ISTAT [id number] 03:45:00 Test Item Value Reference Range Interpretation Comments ISTAT HCG (test code <5.0 IU/L A value of less than or = ISHCG) equal to <5 IU/ L is considered NEGA TIVE. A value between 5 IU/L and 25 IU/L is cons idered INDETERMINATE. A value of >25 IU/L is considered POSI TIVE. ISTAT CHEM [id number] 03:25:00 Test Item Value Reference Range Interpretation [...] code = ISTANGAP) 19 MMOL/L CT ABDOMEN/PELVIS [id number] 07:45:[address] [id number] IMAGING REPORTPatient Name: DEYSI WOLFE BDate of Service: 11-51-3379Ssh: 23 Sex: F Order #: 700 [facility] 1995 X-Ray Number: [id number] Record Number: [id number] Hospital Number: [id number] Physician: KYARA HARDINOrdering Physician: RADHA HOLLINS abdomen and pelvis.History: Flank, [...] 7:43 AMLegally authenticated by CHRISTOPH Rodriguez 2018-08-21 07:43:[id number] 22:43:00 Test Item Value Reference Range Interpretation Comments LIPASE (test code = LIPA) 65 U/L 23-300 LIVER [id number] 22:43:00 Test Item Value Reference Range Interpretation [...] ALT) 28 U/L 13-69 BMP, BASIC METABOLIC [id number] 22:43:00 Test Item Value Reference Range Interpretation [...] glucose = GLUCOSE) normal <100 MG/ DL- [employer] recommendation* * CALCIUM (test code 9.3 MG/DL 8.4-10.2 = CABLOOD) GFR (test code = 214 A GFR of >9 0 GFR) mL/min/1.73m2 mL/min/1.73m2 is considered norm al. [id number] 22:07:00 Test Item Value Reference Range Interpretation [...] HCGIPC) HCG LOT # (test code = 6803508 UHCGLOT) HCG EXPIRATION DATE 01-26-20 (test code = UHCGEXP) [id number] 22:03:00 Test Item Value Reference Range Interpretation [...]
[2022-05-09 16:14] LABS: Absolute Lymphocytes (CBC) 2.6 K/uL (0.7-4.9); Hematocrit 38.5 % (36.0-45.0); Lymphocytes % 35.6 % (15.3-44.8); MCV 83.2 fL (80-100); MPV 9.2 fL (7.6-11.3); RBC Red Blood Cell Count 4.63 M/uL (3.86-4.86)
[2022-05-09] MEDS ORDERED: ACETAMINOPHEN 500 MG TAB ONE (16:14)
[2022-05-09 16:22] LABS: Protime INR 1.03
[2022-05-09 16:33] LABS: ALT/SGPT 26 U/L (12-78); AST/SGOT 13 U/L (15-37); Albumin 3.5 g/dL (3.4-5.0); Alkaline Phosphatase 54 U/L (45-117); BUN Blood Urea Nitrogen 8 mg/dL (7-18); Bicarbonate 26 mmol/L (21-32); Bilirubin Total 0.3 mg/dL (0.2-1.0); Glomerular Filtration Rate 132 ml/min (=/>90); Glucose Level 76 mg/dL (74-106); Magnesium 2.1 mg/dL (1.8-2.4); NT PRO-BNP 81 pg/mL (<125); Potassium 3.9 mmol/L (3.5-5.1); Protein, Total 7.4 g/dL (6.4-8.2); Sodium Level 138 mmol/L (136-145); Troponin High Sensitivity 3.1 pg/mL (<58.9)
[2022-05-09 16:46] LABS: Bilirubin Direct < 0.1 mg/dL (0-0.2)
[2022-05-09 17:11] LABS: SARS-COV-2 RT PCR NEGATIVE (NEGATIVE)
[2022-05-09] MEDS ORDERED: NA CHLORIDE 0.9% 1,000 ML ONE (17:21)
[2022-05-09 17:30] LABS: Urine Blood Negative (Negative); Urine Glucose Negative (Negative); Urine Protein Negative (Negative); Urine Specific Gravity >=1.030 (1.005-1.030); Urine pH 5.5 (5.0-7.0)
[2022-05-09 17:51] LABS: Urine Bacteria <20 /HPF (<20); Urine Mucus Slight /HPF (None Seen); Urine RBC <5 /HPF (None Seen)
--- NOTE | 2022-05-09 18:16 | RAD REPORT ---
EXAM DESCRIPTION: US - Extrem Venous W Compress Vipul - 05/09/2022 5:59 pm CLINICAL HISTORY: chest pain COMPARISON: No comparisons TECHNIQUE: Real-time sonographic evaluation of the lower extremity deep venous systems was performed using color Doppler, grayscale, and compression. FINDINGS: Bilateral lower extremities. Normal compressibility, flow augmentation, phasic flow and spontaneous flow is identified in both the left and right lower extremity deep venous systems. No intraluminal filling defects seen. IMPRESSION: No DVT in either lower extremity.
--- NOTE | 2022-05-09 18:27 | RAD REPORT ---
EXAM DESCRIPTION: RAD - Chest Single View - 05/09/2022 6:13 pm CLINICAL HISTORY: Chest pain COMPARISON: No comparisons FINDINGS: Lines: None. Lungs: No evidence of edema or pneumonia. Pleural: No significant pleural effusions or pneumothorax. Cardiac: The heart size is within normal limits. Mediastinum: Within normal limits. Bones: No acute fractures. Other: None IMPRESSION: No acute cardiopulmonary disease.
--- NOTE | 2022-05-09 19:09 | ER ---
Nurse's Notes [facility] Name: Anita Alvarez Age: 27 yrs Sex: Female : 1995 Arrival Date: 05/09/2022 Time: 15:00 Bed 7 Private MD: Diagnosis: Chest pain, unspecified;Shortness of breath; related conditions, unspecified, first trimester Presentation: 05/09 15:31 Chief complaint: Patient states: Chest pain,shortness of breath x 4 days, reports 5 jl7 weeks and put on progesterone due to hx of miscarriage, chest pain worse with inspiration. Denies fever, denies symptoms, denies abdominal pain. Coronavirus screen: Vaccine status: Patient reports receiving the 1st dose of the Covid vaccine. At this time, the client does not indicate any symptoms associated with coronavirus-19. Ebola Screen: No symptoms or risks identified at this time. Initial Sepsis Screen: Does the patient meet any 2 criteria? No. Patient's initial sepsis screen is negative. Does the patient have a suspected source of infection? No. Patient's initial sepsis screen is negative. Risk Assessment: Do you want to hurt yourself or someone else? Patient reports no desire to harm self or others. Onset of symptoms was May 06, 2022. 15:31 Method Of Arrival: [facility] 15:31 Acuity: RAFA 3 jl7 Triage Assessment: 15:33 General: Appears in no apparent distress. uncomfortable, Behavior is cooperative, jl7 appropriate for age, anxious. Pain: Complains of pain in chest Pain currently is 7 out of 10 on a pain scale. Cardiovascular: Patient's skin is warm and dry. 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 - Social history:: Smoking status: Patient denies any tobacco usage or history of. Screenin:58 Abuse screen: Denies threats or abuse. Nutritional screening: No deficits noted. vg1 Tuberculosis screening: No symptoms or risk factors identified. Fall Risk No fall in past 12 months (0 pts). No secondary diagnosis (0 pts). IV access (20 points). Ambulatory Aid- None/Bed Rest/Nurse Assist (0 pts). Gait- Normal/Bed Rest/Wheelchair (0 pts) Mental Status- Oriented to own ability (0 pts). Total Lockhart Fall Scale indicates No Risk (0-24 pts). Assessment: 15:58 General: Appears in no apparent distress. uncomfortable, Behavior is calm, cooperative. vg1 Pain: Complains of pain in chest and right shoulder Pain currently is 7 out of 10 on a pain scale. Pain began x 4 days. Pain: Pain does not radiate. Neuro: Level of Consciousness is awake, alert, obeys commands, Oriented to person, place, time, situation, Denies headache. Cardiovascular: Reports palpitations, Patient's skin is warm and dry. Respiratory: Airway is patent Respiratory effort is even, unlabored, Breath sounds are clear bilaterally. Parent/caregiver reports the patient having shortness of breath on exertion. GI: Abdomen is round non-distended, Abd is soft and non tender Reports nausea. : No signs and/or symptoms were reported regarding the genitourinary system. EENT: No signs and/or symptoms were reported regarding the EENT system. Derm: Skin is pink, warm \T\ dry. Musculoskeletal: Circulation, motion, and sensation intact. 17:00 Reassessment: Patient appears in no apparent distress at this time. No changes from vg1 previously documented assessment. Patient and/or family updated on plan of care and expected duration. Pain level reassessed. Patient is alert, oriented x 3, equal unlabored respirations, skin warm/dry/pink. 18:00 Reassessment: Patient appears in no apparent distress at this time. Patient and/or vg1 family updated on plan of care and expected duration. Pain level reassessed. Patient is alert, oriented x 3, equal unlabored respirations, skin warm/dry/pink. Patient denies pain at this time. Vital Signs: 15:31 BP 141 / 90; Pulse 102; Resp 18; Temp 98.4; Pulse Ox 98% on R/A; Weight 83.91 kg; jl7 Height 5 ft. 2 in. (157.48 cm); Pain 7/10; 17:25 BP 113 / 81; Pulse 72; Resp 20; Pulse Ox 100% on R/A; vg1 18:00 BP 121 / 82; Pulse 83; Resp 17; Pulse Ox 100% on R/A; vg1 19:27 BP 119 / 79; Pulse 72; Resp 18; Pulse Ox 100% on R/A; Pain 0/10; kl 15:31 Body Mass Index 33.84 (83.91 kg, 157.48 cm) jl7 Vitals: 19:27 Cardiac Rhythm Assessment Regular Sinus rhythm. ED Course: 15:00 Patient arrived in ED. am2 15:04 Maxime Barker PA is PHCP. cp 15:04 Mikayla Mcdonough MD is Attending Physician. cp 15:33 Triage completed. jl7 15:33 Arm band placed on right wrist. jl7 15:36 Yi Talley RN is Primary Nurse. kb3 15:55 No provider procedures requiring assistance completed. Inserted saline lock: 20 gauge vg1 in right antecubital area, using aseptic technique. 15:55 Patient maintains SpO2 saturation greater than 95% on room air. vg1 15:58 Patient has correct armband on for positive identification. Placed in gown. Bed in low vg1 position. Call light in reach. Side rails up X 1. Client placed on continuous cardiac and pulse oximetry monitoring. NIBP monitoring applied. 17:18 Primary Nurse role handed off by Yi Talley RN vg1 17:18 Veronica Hoang RN is Primary Nurse. vg1 18:00 US Extremity Venous W Compression Vipul In Process Unspecified. EDMS 18:15 XRAY Chest (1 view) In Process Unspecified. EDMS 19:14 Primary Nurse role handed off by Veronica Hoang RN mw2 19:28 IV discontinued, intact, bleeding controlled, No redness/swelling at site. Pressure kl dressing applied. Administered Medications: 16:30 Drug: Tylenol 1000 mg Route: PO; vg1 17:25 Drug: NS 0.9% 1000 ml Route: IV; Rate: 1 bolus; Site: right antecubital; vg1 Medication: 15:58 VIS not applicable for this client. vg1 Outcome: 19:08 Discharge ordered by . nita 19:28 Discharged to home ambulatory. 19:28 Condition: improved 19:28 Discharge instructions given to patient, Instructed on discharge instructions, follow up and referral plans. Demonstrated understanding of instructions, follow-up care. 19:28 Patient left the ED. kl Signatures: Dispatcher [employer] EDMS Hue Huertas RN RN Maxime Smith PA PA cp Leal, Jahala RN RN jl7 Taylor León Daniel Robin 2 Veronica Hoang RN RN vg1 Yi Talley, RN RN kb3 Corrections: (The following items were deleted from the chart) 16:00 15:58 Cardiovascular: Patient's skin is warm and dry. vg1 vg1 16:01 15:58 Respiratory: Airway is patent Respiratory effort is even, unlabored, Breath vg1 sounds are clear bilaterally. vg1
--- NOTE | 2022-05-09 19:09 | EDPHYS ---
Physician Documentation [facility] Name: Anita Alvarez Age: 27 yrs Sex: Female : 1995 Arrival Date: 05/09/2022 Time: 15:00 Bed 7 Private MD: ED Physician Mikayla Mcdonough HPI: 05/09 16:00 This 27 yrs old Female presents to ER via Ambulatory with complaints of Chest Pain - 4 cp days, Shortness Of Breath. 16:00 The patient or guardian reports chest pain that is located primarily in the anterior cp chest wall, bilaterally. 16:00 The pain does not radiate. Associated signs and symptoms: Pertinent positives: cp shortness of breath, Pertinent negatives: abdominal pain, cough, lower extremity pain, lower extremity swelling, syncope, vomiting. 16:00 The chest pain is described as aching. Duration: The patient or guardian reports a cp single episode, that is still ongoing, and unchanged. Modifying factors: the symptoms are aggravated by activity, deep breath. 16:00 Patient reports she is a and approximately 5 weeks gestation. Denies lower abdomen cp pain, denies vaginal bleeding. ICING MIXER: 15:33 2, Full Term 0, Premature 0, 1, Living 0, LMP 03/30/2022 jl7 Historical: - Allergies: 15:33 PENICILLINS; jl7 - Home Meds: 15:33 Synthroid Oral [Active]; Cymbalta oral [Active]; progesterone micronized 100 mg oral jl7 cap [Active]; - PMHx: 15:33 Hoshimoto's disease; Anxiety; jl7 - PSHx: 15:33 Cholecystectomy; DNC; gastric sleeve; jl7 - Immunization history:: Client reports receiving the 1st dose of the Covid vaccine. - Social history:: Smoking status: Patient denies any tobacco usage or history of. ROS: 16:05 Constitutional: Negative for body aches, chills, fever, poor PO intake. cp 16:05 Eyes: Negative for injury, pain, redness, and discharge. cp 16:05 ENT: Negative for drainage from ear(s), ear pain, sore throat, difficulty swallowing, difficulty handling secretions. 16:05 Neck: Negative for pain with movement, pain at rest, stiffness. 16:05 Cardiovascular: Positive for chest pain, Negative for edema, palpitations. 16:05 Respiratory: Positive for shortness of breath, on exertion. Negative for cough, wheezing. 16:05 Abdomen/GI: Negative for abdominal pain, nausea, vomiting, and diarrhea. 16:05 Back: Negative for pain at rest, pain with movement. 16:05 : Negative for urinary symptoms, vaginal bleeding, vaginal discharge. 16:05 Neuro: Negative for altered mental status, dizziness, headache, syncope, weakness. 16:05 All other systems are negative. Exam: 16:10 Constitutional: The patient appears in no acute distress, alert, awake, cp non-diaphoretic, non-toxic, well developed, well nourished. 16:10 Head/Face: Normocephalic, atraumatic. cp 16:10 Eyes: Periorbital structures: appear normal, Conjunctiva: normal, no exudate, no injection, Sclera: no appreciated abnormality, Lids and lashes: appear normal, bilaterally. 16:10 ENT: External ear(s): are unremarkable, Nose: is normal, Mouth: Lips: moist, Oral mucosa: pink and intact, moist, Posterior pharynx: Airway: no evidence of obstruction, patent. 16:10 Neck: ROM/movement: is normal, is supple, without pain, no range of motions limitations. 16:10 Chest/axilla: Inspection: normal. 16:10 Cardiovascular: Rate: tachycardic, Rhythm: regular, Heart sounds: murmur, not appreciated, Edema: is not appreciated. 16:10 ECG was reviewed by the Attending Physician. 16:10 Respiratory: the patient does not display signs of respiratory distress, Respirations: normal, no use of accessory muscles, no retractions, labored breathing, is not present, Breath sounds: are clear throughout, no decreased breath sounds, no stridor, no wheezing. 16:10 Abdomen/GI: Inspection: abdomen appears normal, Palpation: abdomen is soft and non-tender, in all quadrants. 16:10 Back: pain, is absent, ROM is normal. 16:10 Neuro: Orientation: to person, place \\T\\ time. Mentation: is normal, Motor: moves all fours, strength is normal. Vital Signs: 15:31 BP 141 / 90; Pulse 102; Resp 18; Temp 98.4; Pulse Ox 98% on R/A; Weight 83.91 kg; jl7 Height 5 ft. 2 in. (157.48 cm); Pain 7/10; 17:25 BP 113 / 81; Pulse 72; Resp 20; Pulse Ox 100% on R/A; vg1 18:00 BP 121 / 82; Pulse 83; Resp 17; Pulse Ox 100% on R/A; vg1 19:27 BP 119 / 79; Pulse 72; Resp 18; Pulse Ox 100% on R/A; Pain 0/10; kl 15:31 Body Mass Index 33.84 (83.91 kg, 157.48 cm) jl7 MDM: 15:42 Patient medically screened. cp 17:00 Differential diagnosis: abnormal EKG, acute myocardial infarction, acute pericarditis, cp chest wall pain, cholecystitis, Cholelithiasis pancreatitis, pericarditis, pleurisy, pneumonia, pneumothorax, pulmonary embolus. 19:08 Data reviewed: vital signs, nurses notes, lab test result(s), EKG, radiologic studies, cp plain films. 19:08 Test interpretation: by ED physician or midlevel provider: ECG, plain radiologic cp studies. Counseling: I had a detailed discussion with the patient and/or guardian regarding: the historical points, exam findings, and any diagnostic results supporting the discharge/admit diagnosis, lab results, radiology results, the need for outpatient follow up, an OB/Gyne specialist, to return to the emergency department if symptoms worsen or persist or if there are any questions or concerns that arise at home. Special discussion: Based on the patient's history, exam, and Dx evaluation, there is no indication for emergent intervention or inpatient Tx. It is understood by the patient/guardian that if the Sx's persist or worsen they need to return immediately for re-evaluation. 05/09 16:01 Order name: Basic Metabolic Panel; Complete Time: 17:09 05/09 17:09 Interpretation: Normal except: CRE 0.52. 05/09 16:01 Order name: CBC with Diff; Complete Time: 17:09 05/09 19:01 Interpretation: Reviewed. 05/09 16:01 Order name: D-Dimer; Complete Time: 17:09 05/09 16:01 Order name: LFT's; Complete Time: 17:09 05/09 17:09 Interpretation: Normal except: AST 13; A/G 0.9; GLOB 3.9. 05/09 16:01 Order name: Magnesium; Complete Time: 17:09 05/09 16:01 Order name: NT PRO-BNP; Complete Time: 17:09 05/09 16:01 Order name: PT-INR; Complete Time: 17:09 05/09 16:01 Order name: Troponin HS; Complete Time: 17:09 05/09 19:02 Interpretation: Reviewed. 05/09 16:01 Order name: Urine Microscopic Only; Complete Time: 19:00 05/09 19:01 Interpretation: Reviewed. 05/09 16:01 Order name: US Extremity Venous W Compression Vipul; Complete Time: 19:00 05/09 19:01 Interpretation: Report reviewed. 05/09 16:01 Order name: COVID-19/FLU A+B (Document "Date of Onset" if Symptomatic); Complete Time: 19:00 05/09 19:01 Interpretation: Reviewed. 05/09 17:10 Order name: XRAY Chest (1 view); Complete Time: 19:00 05/09 17:31 Order name: Urine Dipstick-Ancillary; Complete Time: 19:00 EDMS 05/09 19:01 Interpretation: Reviewed. 05/09 17:47 Order name: Urine --Ancillary (enter results) 05/09 15:53 Order name: EKG; Complete Time: 15:53 05/09 15:53 Order name: EKG - Nurse/Tech; Complete Time: 16:11 05/09 16:01 Order name: Cardiac monitoring; Complete Time: 16:11 05/09 16:01 Order name: IV Saline Lock; Complete Time: 16:02 05/09 16:01 Order name: Labs collected and sent; Complete Time: 16:02 05/09 16:01 Order name: O2 Per Protocol; Complete Time: 16:02 05/09 16:01 Order name: O2 Sat Monitoring; Complete Time: 16:02 05/09 16:01 Order name: Urine Dipstick-Ancillary (obtain specimen); Complete Time: 17:31 05/09 16:01 Order name: Urine Test (obtain specimen); Complete Time: 17:31 cp EC:10 Rate is 79 beats/min. Rhythm is regular. CA interval is normal. QRS interval is normal. cp QT interval is normal. T waves are Inverted in lead aVR. Interpreted by me. Reviewed by me. Administered Medications: 16:30 Drug: Tylenol 1000 mg Route: PO; vg1 17:25 Drug: NS 0.9% 1000 ml Route: IV; Rate: 1 bolus; Site: right antecubital; vg1 Disposition Summary: 05/09/22 19:08 Discharge Ordered Location: Home cp Problem: new cp Symptoms: have improved cp Condition: Stable cp Diagnosis - Chest pain, unspecified cp - Shortness of breath cp - related conditions, unspecified, first trimester cp Followup: cp - With: Private Physician - When: 2 - 3 days - Reason: Recheck today's complaints Discharge Instructions: - Discharge Summary Sheet cp - Nonspecific Chest Pain, Adult cp - Care cp - Shortness of Breath, Adult cp - First Trimester of cp Forms: - Medication Reconciliation Form cp - Thank You Letter cp - Antibiotic Education cp - Prescription Opioid Use cp Signatures: Dispatcher [employer] EDMS Maxime Barker PA PA cp Leal, Jahala, RN RN jl7 Veronica Hoang RN RN vg1
[2022-05-09 20:06] VITALS: TEMP 98.4
[2022-05-09 20:12] VITALS: O2SAT 100
[2022-05-09 20:15] VITALS: BP 119/79
[2022-05-09 20:38] LABS: Urine Specific Gravity/Preg >1.030 (1.005-1.030)
--- NOTE | 2022-05-11 15:11 | EKG ---
Test Date: 2022-05-09 Test Time: 16:07:36 Health Promotion Manager: KYLIE MEASUREMENT RESULTS: Intervals: Rate: 79 RI: 154 QRSD: 78 QT: 356 QTc: 408 [place]: P: 28 RI: 154 QRS: 60 T: 38 INTERPRETIVE STATEMENTS: Normal sinus rhythm Cannot rule out Anterior infarct, age undetermined Abnormal ECG No previous ECG available for comparison Electronically Signed On 05-11-22 15:09:26 [employer] by Arthur Ahuja
== END 2022-05-09 19:28 | disposition home or self-care (01) ==
LOC: ER 14:57
DX: O26.891 Other specified pregnancy related conditions, first trimester (principal); O99.281 Endocrine, nutritional and metabolic diseases complicating pregnancy, first trimester; E06.3 Autoimmune thyroiditis; Z3A.01 Less than 8 weeks gestation of pregnancy; Z20.822 Contact with and (suspected) exposure to COVID-19; Z88.0 Allergy status to penicillin
CPT/HCPCS: 93005; 85025; 80048; 36415; 83735; 81025; 85610; 85379; 80076; 84484; 83880; 0240U; 71045; 93970; 99284; J7030; 81003; 81015

== ENCOUNTER 2023-01-12 00:59 | Emergency (ER) | payer BC, SELFPAY ==
--- OUTSIDE RECORDS SUMMARY | 2023-01-12 01:12 | XMS REPORT | Continuity of Care Document ---
:1995 Author Organization [facility] t Address [address] [place] [address] [place] [id number] Care Team Providers Name Role Phone Kamaljit Doyle Primary Care Physician MIRIAN WALL Attending Clinician Unavailable Nela Bone MD Attending Clinician NELA BONE Attending Clinician Unavailable Mirian Wall MD Attending Clinician Doctor Unassigned, [place] Attending Clinician Unavailable Keven Daniel MD Attending Clinician Juan Carlos Arevalo MD Attending Clinician Room, [facility] Attending Clinician Unavailable 3, [facility] Room Attending Clinician Unavailable Jamey Yañez MD Attending Clinician JAMEY YAÑEZ Attending Clinician Unavailable JAMEY YAÑEZ Attending Clinician Unavailable Timo Corona NP Attending Clinician Abigail Neely RN Attending Clinician Unavailable 2, [facility] Attending Clinician Unavailable Nurse, [facility] Attending Clinician Unavailable KEVEN DANIEL Attending Clinician Unavailable GC_SWHATBIC_Cone_S Attending Clinician Unavailable Rajesh Leavitt Attending Clinician Unavailable Abi Peñaloza Attending Clinician Unavailable DOUG BLANCAS Attending Clinician Unavailable Doug Blancas MD Attending Clinician TIMO CORONA Attending Clinician Unavailable UCBAMICHAEDionicio, ELANIE Attending Clinician Unavailable Jr Jeffries Harold S Attending Clinician Unavailable GUS ESPINOZA Attending Clinician Unavailable MIRIAN WALL Admitting Clinician Unavailable Mirian Wall MD Admitting Clinician NELA BONE Admitting Clinician Unavailable KEVEN DANIEL Admitting Clinician Unavailable Keven Daniel MD Admitting Clinician GC_SWHATBIC_Cone_S Admitting Clinician Unavailable Abi Peñaloza Admitting Clinician Unavailable UCBAMICHAEDionicio, ELANIE Admitting Clinician Unavailable Payers Payer Name Policy Type Policy Number Effective Date Expiration Date S ource [place] [id number] 2021 00:00:00 [facility] [id number] 2022 STAR 00:00:00 [facility] [id number] 2012 PPO/POS 00:00:00 [place] [employer] [id number] 2022 00:00:00 [facility] [id number] [place] [id number] 2021 (PPO) 00:00:00 Problems Condition Condition Condition Status Onset Resolution Last Treating Co mments Source Name Details Category Date Date Treatment Clinician Date Vagina Vagina Disease Active Univers itching itching 7-17 ity of 00:00: [address] Liveborn Liveborn Disease Active Unive rs infant, of , of 6-14 it y of [place] , , 00 [place] d[place] born in born in [facility] by vaginal by vaginal delivery delivery Placental Placental Disease Active Uni vers abruption abruption 6-14 ity of in third in third 00:00: [place] trimester trimester 00 [facility] Premature Premature Disease Active Uni vers labor with labor with 6-14 it y of rupture of rupture [place] 00:[place] membranes membranes 00 [facility] Branch 36 weeks 36 weeks Disease Active Unive rs gestation gestation 6-14 ity of of of 00:00: [place] 00 [facility] Branch Hypothyroi Hypothyroi Disease Active U nivers dism in dism in 6-14 ity of , , 00:00[place] antepartum antepartum 00 Me dical , third , third Branch trimester trimester Pre-existi Pre-existi Disease Active U nivers ng ng 6-14 ity of hypertensi hypertensi 00:00: [place] on on 00 Medical affecting affecting Bran ch in third in third trimester trimester Obesity in Obesity in Disease Active U nivers 8-15 ity of 00:00: [place] [facility] Vaginal Vaginal Disease Active Univers discharge discharge 8-15 ity of during during 00:00: [place] 00 [facility] in first in first Branch trimester trimester History of History of Disease Active U nivers UTI UTI 8-15 ity of 00:00: [place] [facility] History of History of Disease Active U nivers gastric gastric 8-15 ity of bypass bypass 00:00: [place] [facility] Well woman Well woman Disease Active U nivers exam with exam with 4-29 ity of routine routine 00:00: [place] gynecologi gynecologi 00 Me dical jaye exam jaye exam Branch Obesity Obesity Disease Active Univers (BMI (BMI 4-29 ity of 30-39.9) 30-39.9) 00:00: [place] [facility] Oral Oral Disease Active Univers contracept contracept 4- it y of tay pill tay pill 00:00: [place] surveillan surveillan 00 Me dical ce ce Branch Be' Be' Disease Active U chandan s disease s disease 4-29 ity of 00:00: [place] [id number] Medical Branch Essential Essential Disease Active Uni vers hypertensi hypertensi 4-29 it y of on, benign on, benign [...] Source Name Type Date Date Clinician Penicill DA Active SV [facility] [place] Penicill Drug Active U Not Yarsanism ins Allergy Specified 18 Hospit a 01:29: l 10 ([facility]) Penicill Allergy Active Unknown SCOTT U in to 3-14 S substanc 00:00: Health e 00 Penicill Drug Active U Not Yarsanism ins Allergy Specified 08-30 Hospit a 16:43: l 13 ([place]) [...] PENICILL Allergy Active [place] INS to [facility] Social History Social Habit Start Date Stop Date Quantity Comments Source ASSERTION 2022-04-15 [facility] 00:00:00 [facility] Gender identity Universit y of [facility] Sexual orientation Univer sity of [facility] Alcohol intake 2022-12-10 2022-12-10 Ex-drinker [facility] 00:00:00 00:00:00 (finding) [facility] Exposure to 2022-11-09 2022-11-19 Not sure [facility] SARS-CoV-2 (event) 00:00:00 13:01:00 [facility] Tobacco use and 2022-02-05 2022-02-05 Smokeless Universit y of exposure 00:00:00 00:00:00 tobacco non-user [facility] History of Social 2021-10-24 2021-10-24 Univers ity of function 00:00:00 00:00:00 [facility] Sex Assigned At [birth year] Universit y of 00:00:00 00:00:00 [facility] Smoking Status Start Date Stop Date Source Never smoked tobacco [facility] Medications Ordered Filled Start Stop Current Ordering Indication Dosage Frequency Signature Comments Components Source Medication Medication Date Date Medication? Clinician (SIG) Name Name 0 3- [id number] mouth. ity of fum/folic 14:29: 00:00 [facility] 33 :00 Medical ( 1 Branch + 1 ORAL) levothyroxi 0 Yes 1 tablet Un thien ne 137 mcg 6-15 in the ity of tablet 12:55: morning on [place] [address] an empty Medical stomach Branch levothyroxi 2022-0 Yes 1 tablet Un thien ne 137 mcg 6-15 in the ity of tablet 12:55: morning on [place] [address] an empty Medical stomach Branch levothyroxi 2022-0 Yes 1 tablet Un thien ne 137 mcg 6-15 in the ity of tablet 12:55: morning on [place] [address] an empty Medical stomach Branch levothyroxi 2022-0 Yes 1 tablet Un thien ne 137 mcg 6-15 in the ity of tablet 12:55: morning on [place] [address] an empty Medical stomach Branch levothyroxi 2022-0 Yes 1 tablet Un thien ne 137 mcg 6-15 in the ity of tablet 12:55: morning on [place] [address] an empty Medical stomach Branch levothyroxi 2022-0 Yes 1 tablet Un thien ne 137 mcg 6-15 in the ity of tablet 12:55: morning on [place] 11 an empty Medical stomach Branch levothyroxi 2022-0 Yes 1 tablet Un thien ne 137 mcg 6-15 in the ity of tablet 12:55: morning on [place] 11 an empty Medical stomach Branch levothyroxi 2022-0 Yes 1 tablet Un thien ne 137 mcg 6-15 in the ity of tablet 12:55: morning on [place] [address] an empty Medical stomach Branch levothyroxi 2022-0 Yes 1 tablet Un thien ne 137 mcg 6-15 in the ity of tablet 12:55: morning on [place] 11 an empty Medical stomach Branch 0 Yes Take by [facility] vit/iron 6-15 mouth. ity of fum/folic 12:55: [place] [address] Medical ( 1 Branch + 1 ORAL) Yes Take by [facility] vit/iron 6-15 mouth. ity of fum/folic 12:55: [place] [address] Medical ( 1 Branch + 1 ORAL) Yes Take by [facility] vit/iron 6-15 mouth. ity of fum/folic 12:55: [place] [address] Medical ( 1 Branch + 1 ORAL) Yes Take by [facility] vit/iron 6-15 mouth. ity of fum/folic 12:55: [address] ( 1 Branch + 1 ORAL) Yes Take by [facility] vit/iron 6-15 mouth. ity of fum/folic 12:55: [address] ( 1 Branch + 1 ORAL) levothyroxi Yes 137ug 137 mcg, U nivers ne 6-15 Oral, ity of (SYNTHROID) 11:00: QAM-0600, [place] tablet 137 00 First dose Med ical mcg on Wed Branch 12/10/22 at 0600, Until Discontinu ed, Routine witch Vera Yes Topical, Un thien (TUCKS) 50 6-15 Q4HPRN, ity of % topical 03:04: [place] pad 34 on Wed Medical 12/09/22 at Branch 2204, Until Discontinu ed, Routine, rectal/hem orrhoidal pain HYDROcodone Yes 1{tbl} 1 tablet, Univers -acetaminop 6-15 Oral, ity of hen (NORCO 02:58: Q6HPRN, [place] 5) 5-325 mg 18 Starting Medi jaye tablet 1 on Wed Branch tablet 12/09/22 at 2158, Until Discontinu ed, Routine, Pain (scale 7-10) ibuprofen Yes 600mg 600 mg, Univ ers (IBU) 6-15 Oral, ity of tablet 600 02:58: Q6HPRN, [place] mg 18 Starting Medical on Wed Branch 12/09/22 at 2158, Until Discontinu ed, Routine, Pain (scale 4-6) acetaminoph 2023-0 Yes 650mg 650 mg, Un thien en 6-15 Oral, ity of (TYLENOL) 02:58: Q6HPRN, [place] tablet 650 18 Starting Medic al mg on Wed Branch 12/09/22 at 2157, Until Discontinu ed, Routine, Pain (scale 1-3) diphenhydrA 2022-0 Yes 25mg 25 mg, Univ ers MINE 6-15 Oral, ity of (BENADRYL) 02:58: Q6HPRN, [place] tablet 25 18 Starting Medica l mg on Wed Branch 12/09/22 at 8, Until Discontinu ed, Routine, Sleep, Itching ondansetron 2022-0 Yes 4mg 4 mg, Slow Univers (ZOFRAN 6-15 IV Push, ity of (PF)) 02:58: Q8HPRN, [place] injection 4 18 Starting Medi jaye mg on Wed Branch 12/09/22 at 2157, Until Discontinu ed, Routine, Nausea and Vomiting (N/V) simethicone 2022-0 Yes 160mg 160 mg, Un thien (GAS RELIEF -15 Oral, ity of (SIMETHICON 02:58: PC+HSPRN, [place] E)) 18 Starting Medical chewable on Wed Branch tablet 160 12/09/22 at mg 2157, Until Discontinu ed, Routine, Gas docusate 2022-0 Yes 200mg 200 mg, Unive rs (COLACE) 6-15 Oral, ity of capsule 200 02:58: QDAILYPRN, [place] mg 18 Starting Medical on Wed Branch 12/09/22 at 2157, Until Discontinu ed, Routine, Constipati on magnesium 2022-0 Yes 30mL 30 mL, Univer s hydroxide 6-15 Oral, ity of (MILK OF 02:58: QDAILYPRN, [place] MAGNESIA) 18 Starting Medica l 400 mg/5 mL on Wed Branch suspension 12/09/22 at 30 mL 2157, Until Discontinu ed, Routine, Constipati on benzocaine- 2022-0 Yes Topical, Un thien menthol 6-15 PRN, ity of (DERMOPLAST 02:58: Starting [place] ) 20-0.5 % 18 on Wed Medical topical 12/09/22 at Branch spray 2158, Until Discontinu ed, Routine, Perineum discomfort 2022-0 Yes [id number] 1{tbl} Take 1 Univers vitamin 6-15 tablet by ity of w/FA tablet 00:00: mouth in [place] 00 the Medical morning. Branch docusate 0 Yes [id number] 200mg Take 2 U nivers 100 mg 6-15 capsules ity of capsule 00:00: by mouth [place] 00 once daily Medical as needed Branch for Constipati on. ferrous 2022-0 Yes [id number] 325mg Take 1 Un thien sulfate 325 6-15 tablet by ity of mg (65 mg 00:00: [place] iron) 00 the Medical tablet morning Branch and 1 tablet in the evening. ibuprofen 2022-0 Yes [id number] 600mg Take 1 Univers 600 mg 6-15 tablet by ity of tablet 00:00: mouth [place] 00 every 6 Medical (six) Branch hours as needed (Pain). Take with food or milk. Yes [id number] 1{tbl} Take 1 Univers vitamin 6-15 tablet by ity of w/FA tablet 00:00: mouth in [place] 00 the Medical morning. Branch docusate Yes [id number] 200mg Take 2 U nivers 100 mg 6-15 capsules ity of capsule 00:00: by mouth [place] 00 once daily Medical as needed Branch for Constipati on. ferrous 2022-0 Yes [id number] 325mg Take 1 Un thien sulfate 325 6-15 tablet by ity of mg (65 mg 00:00: [place] iron) 00 the Medical tablet morning Branch and 1 tablet in the evening. ibuprofen 2022-0 Yes [id number] 600mg Take 1 Univers 600 mg 6-15 tablet by ity of tablet 00:00: mouth [place] 00 every 6 Medical (six) Branch hours as needed (Pain). Take with food or milk. 2022-0 Yes [id number] 1{tbl} Take 1 Univers vitamin 6-15 tablet by ity of w/FA tablet 00:00: mouth in [place] 00 the Medical morning. Branch docusate 0 Yes [id number] 200mg Take 2 U nivers 100 mg 6-15 capsules ity of capsule 00:00: by mouth [place] 00 once daily Medical as needed Branch for Constipati on. ferrous 2022-0 Yes [id number] 325mg Take 1 Un thien sulfate 325 6-15 tablet by ity of mg (65 mg 00:00: [place] iron) 00 the Medical tablet morning Branch and 1 tablet in the evening. ibuprofen 2022-0 Yes [id number] 600mg Take 1 Univers 600 mg 6-15 tablet by ity of tablet 00:00: mouth [place] 00 every 6 Medical (six) Branch hours as needed (Pain). Take with food or milk. 2022-0 Yes [id number] 1{tbl} Take 1 Univers vitamin 6-15 tablet by ity of w/FA tablet 00:00: mouth in [place] 00 the Medical morning. Branch docusate 2022-0 Yes [id number] 200mg Take 2 U nivers 100 mg 6-15 capsules ity of capsule 00:00: by mouth [place] 00 once daily Medical as needed Branch for Constipati on. ferrous 2022-0 Yes [id number] 325mg Take 1 Un thien sulfate 325 6-15 tablet by ity of mg (65 mg 00:00: mouth [place] iron) 00 the Medical tablet morning Branch and 1 tablet in the evening. ibuprofen 2022-0 Yes [id number] 600mg Take 1 Univers 600 mg 6-15 tablet by ity of tablet 00:00: mouth [place] 00 every 6 Medical (six) Branch hours as needed (Pain). Take with food or milk. 2022-0 Yes [id number] 1{tbl} Take 1 Univers vitamin 6-15 tablet by ity of w/FA tablet 00:00: mouth in [place] 00 the Medical morning. Branch docusate 2022-0 Yes [id number] 200mg Take 2 U nivers 100 mg 6-15 capsules ity of capsule 00:00: by mouth [place] 00 once daily Medical as needed Branch for Constipati on. ferrous 2022-0 Yes [id number] 325mg Take 1 Un thien sulfate 325 6-15 tablet by ity of mg (65 mg 00:00: [place] iron) 00 the Medical tablet morning Branch and 1 tablet in the evening. ibuprofen 2022-0 Yes [id number] 600mg Take 1 Univers 600 mg 6-15 tablet by ity of tablet 00:00: mouth [place] 00 every 6 Medical (six) Branch hours as needed (Pain). Take with food or milk. 2022-0 Yes [id number] 1{tbl} Take 1 Univers vitamin 6-15 tablet by ity of w/FA tablet 00:00: mouth in [place] 00 the Medical morning. Branch ferrous 2022-0 Yes [id number] 325mg Take 1 Un thien sulfate 325 6-15 tablet by ity of mg (65 mg 00:00: mouth [place] iron) 00 the Medical tablet morning Branch and 1 tablet in the evening. 2022-0 Yes [id number] 1{tbl} Take 1 Univers vitamin 6-15 tablet by ity of w/FA tablet 00:00: mouth in [place] 00 the Medical morning. Branch ferrous 2022-0 Yes [id number] 325mg Take 1 Un thien sulfate 325 6-15 tablet by ity of mg (65 mg 00:00: [place] iron[place] 00 the Medical tablet morning Branch and 1 tablet in the evening. 2022-0 Yes [id number] 1{tbl} Take 1 Univers vitamin 6-15 tablet by ity of w/FA tablet 00:00: mouth in [place] 00 the Medical morning. Branch ferrous 2022-0 Yes [id number] 325mg Take 1 Un thien sulfate 325 6-15 tablet by ity of mg (65 mg 00:00: [place] iron[place] 00 the Medical tablet morning Branch and 1 tablet in the evening. 2022-0 Yes [id number] 1{tbl} Take 1 Univers vitamin 6-15 tablet by ity of w/FA tablet 00:00: mouth in [place] 00 the Medical morning. Branch ferrous 2022-0 Yes [id number] 325mg Take 1 Un thien sulfate 325 6-15 tablet by ity of mg (65 mg 00:00: mouth [place] iron) 00 the Medical tablet morning Branch and 1 tablet in the evening. docusate 2022-0 3- No [id number] 200mg Take 2 Univers 100 mg 6-15 - capsules ity of capsule 00:00: 00:00 by mouth [place] 00 :00 once daily Medical as needed Branch for Constipati on. ibuprofen 2022-0 3- No [id number] 600mg Take 1 Univers 600 mg 6-15 -06 tablet by ity of tablet 00:00: 00:00 mouth [place] 00 :00 every 6 Medical (six) Branch hours as needed (Pain). Take with food or milk. amnioinfusi 2022- No 1000mL at 750 U nivers on IV 12-10- mL/hr, ity of infusion 00:00: 23:56 Intrauteri [place] via PUMP 00 :00 ne, ONCE, Medica l 0.9 NaCL 1 dose, On Branc h 1,000 mL 12/09/22 at 1900, MARY KAY
Ma y give up 1000 mL.&nb sp; I nfuse via Intrauteri ne Pressure Catheter.& nbsp;&nbsp ;The infusion is started at 750 mL/hr by volume controlled infusion pump. "The infusion pump should be clearly labeled AMNIOINF USION.&n bsp; Once 750 mL has been infused, the infusion may be discontinu ed or decreased to 100 mL/hr until the liter is complete.& nbsp;&nbsp ;Notify Child Welfare Counselor if uterine resting tone exceeds 25 mmHg at any time during the amnioinfus ion. Obst etrics (CONSTANZA) Aminoinfus ion Orders
betamethaso 2022- No 12mg 12 mg, Uni vers ne acet,sod 12-09 Intramuscu i ty of phos 21:30: 03:04 lar, Q24H, [place] (CELESTONE 00 :34 First dose Med ical SOLUSPAN) 6 on Wed Branch mg/mL 12/09/22 at injection 1630, 12 mg Until Discontinu ed, Routine PIB 2022- No Epidural, Univers fentaNYL-ro 12-09 CONTINUOUS i ty of pivacaine 2 21:10: 02:30 PRN, [place] mcg/mL-0.1 00 :05 Starting Medic al % (PF) in on Wed Branch NS 200 mL 12/09/22 at epidural 1610, infusion Until RTU Discontinu ed, Routine, Intra-op PIB 2022- No Epidural, Univers fentaNYL-ro 12-09 CONTINUOUS i ty of pivacaine 2 21:10: 02:30 PRN, [place] mcg/mL-0.1 00 :05 Starting Medic al % (PF) in on Wed Branch NS 200 mL 12/09/22 at epidural 1610, infusion Until RTU Discontinu ed, Routine, Intra-op Yes Take by [facility] [place] [facility] s vit/iron 6-14 mouth. ity of fum/folic 20:56: [place] [address] Medical ( 1 Branch + 1 ORAL) levothyroxi Yes 1 tablet Un thien ne 137 mcg 6-14 in the ity of tablet 20:56: morning on [place] [address] an empty Medical stomach Branch Yes Take by [facility] [place] [facility] s vit/iron 6-14 mouth. ity of fum/folic 20:56: [place] [address] Medical ( 1 Branch + 1 ORAL) levothyroxi Yes 1 tablet Un thien ne 137 mcg 6-14 in the ity of tablet 20:56: morning on [place] [address] an empty Medical stomach Branch oxytocin 2022- No 2mU/min at 2-40 Un thien (PITOCIN) 12-09 06-15 mL/hr, IV ity of 30 units in 18:47: 03:04 Infusion, [place] NS 500 mL 18 :51 TITRATE, Medica l IV infusion Starting Bran ch on Wed12/09/22 at 1347, Until Wed12/09/22 at 2204, Routine FENTanyl PF 2022- No 100ug 100 mcg, Univers (SUBLIMAZE 12-09 06-15 Slow IV ity o f (PF)) 17:51: 03:04 Push, [place] injection 27 :34 Q1HPRN, Medical 100 mcg Starting Branch on Wed12/09/22 at 1251, Until Wed12/09/22 at 2204, Routine, Pain (scale 4-6), Pain (scale 7-10) lactated 2022- No 500mL at 999 Unive rs ringers IV 12-09 06-15 mL/hr, 500 it y of infusion 17:47: 03:04 mL, IV [place] 500 mL 18 :51 Infusion, Medical PRN - SEE Branch INSTRUCTIO NS, Starting on Wed12/09/22 at 1247, Until Wed12/09/22 at 2204, Routine D5W-LR IV 2022- No 1000mL at 1-125 U nivers infusion 12-09 06-15 mL/hr, IV ity o f 1,000 mL 17:47: 03:04 Infusion, [place] 18 :51 TITRATE, Medical Starting Branch on Wed12/09/22 at 1247, Until Wed12/09/22 at 2204, Routine Yes Take by [employer] vit/iron 6-14 mouth. ity of fum/folic 09:40: [place] [address] Medical ( 1 Branch + 1 ORAL) levothyroxi 0 Yes 1 tablet Un thien ne 137 mcg 6-14 in the ity of tablet 09:40: morning on [place] 35 an empty Medical stomach Branch 0 Yes Take by [employer] vit/iron 6-08 mouth. ity of fum/folic 19:06: [place] [address] Medical ( 1 Branch + 1 ORAL) levothyroxi 0 Yes 1 tablet Un thien ne 137 mcg 6-08 in the ity of tablet 19:06: morning on [place] 46 an empty Medical stomach Branch 0 Yes Take by [employer] vit/iron 6-08 mouth. ity of fum/folic 19:06: [place] [address] Medical ( 1 Branch + 1 ORAL) levothyroxi 0 Yes 1 tablet Un thien ne 137 mcg 6-08 in the ity of tablet 19:06: morning on [place] [address] an empty Medical stomach Branch 0 Yes Take by [employer] vit/iron 6-08 mouth. ity of fum/folic 19:06: [place] [address] Medical ( 1 Branch + 1 ORAL) levothyroxi 2022-0 Yes 1 tablet Un thien ne 137 mcg 6-08 in the ity of tablet 19:06: morning on [place] [address] an empty Medical stomach Branch 0 Yes Take by [employer] vit/iron 6-06 mouth. ity of fum/folic 13:27: [facility] 08 Medical ( 1 Branch + 1 ORAL) levothyroxi 2022-0 Yes 1 tablet Un thien ne 137 mcg 6-06 in the ity of tablet 13:27: morning on [place] 08 an empty Medical stomach Branch 0 Yes Take by [employer] vit/iron 6-06 mouth. ity of fum/folic 13:27: [place] [address] Medical ( 1 Branch + 1 ORAL) levothyroxi 2022-0 Yes 1 tablet Un thien ne 137 mcg 6-06 in the ity of tablet 13:27: morning on [place] 08 an empty Medical stomach Branch Yes Take by [facility] vit/iron 6-06 mouth. ity of fum/folic 13:27: [facility] 08 Medical ( 1 Branch + 1 ORAL) levothyroxi 0 Yes 1 tablet Un thien ne 137 mcg 6-06 in the ity of tablet 13:27: morning on [place] 08 an empty Medical stomach Branch proMETHazin 2022- No 25mg 25 mg, IV Univers e 11-25- Piggyback, ity of (PHENERGAN) 18:45: 18:57 ONCE, 1 [place] 25 mg in 00 :00 dose, On Medical NaCl 0.9% Wed Branch (NS) 50 mL 11/25/22 at piggyback 1345, 50 mL NaCl 0.9% 2022- No 1000mL at 150 Uni vers (NS) IV 11-25-31 mL/hr, IV ity of infusion 18:30: 19:46 Infusion, [place] 1,000 mL 00 :00 ONCE, 1 Medical dose, On Branch 11/25/22 at 1330, Routine NaCl 0.9% 2022- No 1000mL at 999 Uni vers (NS) bolus 11-25 05-31 mL/hr, ity of infusion 18:30: 18:25 1,000 mL, [place] 1,000 mL 00 :00 IV Medical Infusion, Branch ONCE, 1 dose, On 11/25/22 at 1330, Routine Yes Take by [facility] vit/iron 5-31 mouth. ity of fum/folic 17:10: [facility] 14 Medical ( 1 Branch + 1 ORAL) levothyroxi Yes 1 tablet Un thien ne 137 mcg 5-31 in the ity of tablet 17:10: morning on [place] 14 an empty Medical stomach Branch Yes Take by [employer] vit/iron 5-25 mouth. ity of fum/folic 13:54: [facility] 14 Medical ( 1 Branch + 1 ORAL) levothyroxi 0 Yes 1 tablet Un thien ne 137 mcg 5-25 in the ity of tablet 13:54: morning on [place] 14 an empty Medical stomach Branch 0 Yes Take by Univer s vit/iron 5-25 mouth. ity of fum/folic 13:54: [facility] 14 Medical ( 1 Branch + 1 ORAL) levothyroxi 2022-0 Yes 1 tablet Un thien ne 137 mcg 5-25 in the ity of tablet 13:54: morning on [place] 14 an empty Medical stomach Branch 0 Yes Take by Univer s vit/iron 5-25 mouth. ity of fum/folic 13:54: [facility] 14 Medical ( 1 Branch + 1 ORAL) levothyroxi 0 Yes 1 tablet Un thien ne 137 mcg 5-25 in the ity of tablet 13:54: morning on [place] 14 an empty Medical stomach Branch 0 Yes Take by Univer s vit/iron 5-08 mouth. ity of fum/folic 10:45: [facility] 21 Medical ( 1 Branch + 1 ORAL) levothyroxi 0 Yes 1 tablet Un thien ne 137 mcg 5-08 in the ity of tablet 10:45: morning on [place] 21 an empty Medical stomach Branch 0 Yes Take by Univer s vit/iron 5-08 mouth. ity of fum/folic 10:45: [facility] 21 Medical ( 1 Branch + 1 ORAL) levothyroxi 2022-0 Yes 1 tablet Un thien ne 137 mcg 5-08 in the ity of tablet 10:45: morning on [place] 21 an empty Medical stomach Branch 0 Yes Take by Univer s vit/iron 5-08 mouth. ity of fum/folic 10:45: [facility] 21 Medical ( 1 Branch + 1 ORAL) levothyroxi 2022-0 Yes 1 tablet Un thien ne 137 mcg 5-08 in the ity of tablet 10:45: morning on [place] 21 an empty Medical stomach Branch 0 Yes Take by Univer s vit/iron 5-08 mouth. ity of fum/folic 10:45: [facility] 21 Medical ( 1 Branch + 1 ORAL) levothyroxi 0 Yes 1 tablet Un thien ne 137 mcg 5-08 in the ity of tablet 10:45: morning on [place] 21 an empty Medical stomach Branch 0 Yes Take by Univer s vit/iron 5-08 mouth. ity of fum/folic 10:45: [place] 21 Medical ( 1 Branch + 1 ORAL) levothyroxi 2022-0 Yes 1 tablet Un thien ne 137 mcg 5-08 in the [facility]y of tablet 10:45: morning on an empty Medical stomach Branch 0 Yes Take by [facility] vit/iron 5-08 mouth. ity of fum/folic 10:45: [place] 21 Medical ( 1 Branch + 1 ORAL) levothyroxi 2022-0 Yes 1 tablet [facility] 137 mcg 5-08 in the ity of tablet 10:45: morning on an empty Medical stomach Branch Blood-Gluco Yes Check [facility] se Meter 5-04 glucose 4 ity of Kit 00:00: times a day. Medical Branch blood sugar Yes Check [facility] diagnostic 5-04 gluocose 4 ity of (BLOOD 00:00: times a [place] GLUCOSE 00 day Medical TEST) strip Branch Lancets Yes Check [facility] Misc 5-04 glucose 4 ity of 00:00: times a [place] 00 day Medical Branch Alcohol 2022-0 Yes Apply to [facility] Swabs 5-04 area(s) 4 ity of (ALCOHOL 00:00: (four) [place] PADS) PadM 00 times Medical daily. Branch Blood-Gluco 0 Yes Check [facility] se Meter 5-04 glucose 4 ity of Kit 00:00: times a [place] 00 day. Medical Branch blood sugar Yes Check [facility] diagnostic 5-04 gluocose 4 ity of (BLOOD 00:00: times a [place] GLUCOSE 00 day Medical TEST) strip Branch Lancets 0 Yes Check [facility] Misc 5-04 glucose 4 ity of 00:00: times a [place] 00 day Medical Branch Alcohol 2022-0 Yes Apply to [facility] Swabs 5-04 area(s) 4 ity of (ALCOHOL 00:00: (four) [place] PADS) PadM 00 times Medical daily. Branch Blood-Gluco 0 Yes Check [facility] se Meter 5-04 glucose 4 ity of Kit 00:00: times a [place] 00 day. Medical Branch blood sugar 0 Yes Check [facility] diagnostic 5-04 gluocose 4 ity of (BLOOD 00:00: times a [place] GLUCOSE 00 day Medical TEST) strip Branch Lancets Yes Check [facility] Misc 5-04 glucose 4 ity of 00:00: times a [place] 00 day Medical Branch Alcohol 2022-0 Yes Apply to [facility] Swabs 5-04 area(s) 4 ity of (ALCOHOL 00:00: (four) [place] PADS) PadM 00 times Medical daily. Branch Blood-Gluco Yes Check [facility] se Meter 5-04 glucose 4 ity of Kit 00:00: times a [place] day. Medical Branch blood sugar Yes Check [facility] diagnostic 5-04 gluocose 4 ity of (BLOOD 00:00: times a [place] GLUCOSE day Medical TEST) strip Branch Lancets Yes Check [facility] Misc 5-04 glucose 4 ity of 00:00: times a day Medical Branch Alcohol 2022-0 Yes Apply to [facility] Swabs 5-04 area(s) 4 ity of (ALCOHOL 00:00: (four) [place] PADS) PadM 00 times Medical daily. Branch Blood-Gluco Yes Check [facility] se Meter 5-04 glucose 4 ity of Kit 00:00: times a day. Medical Branch blood sugar Yes Check [facility] diagnostic 5-04 gluocose 4 ity of (BLOOD 00:00: times a [place] GLUCOSE day Medical TEST) strip Branch Lancets Yes Check [facility] Misc 5-04 glucose 4 ity of 00:00: times a day Medical Branch Alcohol 2022-0 Yes Apply to [facility] Swabs 5-04 area(s) 4 ity of (ALCOHOL 00:00: (four) [place] PADS) PadM 00 times Medical daily. Branch Blood-Gluco Yes Check [facility] se Meter 5-04 glucose 4 ity of Kit 00:00: times a day. Medical Branch blood sugar Yes Check [facility] diagnostic 5-04 gluocose 4 ity of (BLOOD 00:00: times a [place] GLUCOSE 00 day Medical TEST) strip Branch Lancets 0 Yes Check [facility] Misc 5-04 glucose 4 ity of 00:00: times a [place] 00 day Medical Branch Alcohol 2022-0 Yes Apply to [facility] Swabs 5-04 area(s) 4 ity of (ALCOHOL 00:00: (four) [place] PADS) PadM 00 times Medical daily. Branch Blood-Gluco 2022-0 Yes Check [facility] se Meter 5-04 glucose 4 ity of Kit 00:00: times a [place] 00 day. Medical Branch blood sugar 0 Yes Check [facility] diagnostic 5-04 gluocose 4 ity of (BLOOD 00:00: times a [place] GLUCOSE 00 day Medical TEST) strip Branch Lancets 0 Yes Check [facility] Misc 5-04 glucose 4 ity of 00:00: times a [place] 00 day Medical Branch Alcohol 2022-0 Yes Apply to [facility] Swabs 5-04 area(s) 4 ity of (ALCOHOL 00:00: (four) [place] PADS) PadM 00 times Medical daily. Branch Blood-Gluco 0 Yes Check [facility] se Meter 5-04 glucose 4 ity of Kit 00:00: times a day. Medical Branch blood sugar 0 Yes Check [facility] diagnostic 5-04 gluocose 4 ity of (BLOOD 00:00: times a [place] GLUCOSE 00 day Medical TEST) strip Branch Lancets 0 Yes Check [facility] Misc 5-04 glucose 4 ity of 00:00: times a [place] 00 day Medical Branch Alcohol 2022-0 Yes Apply to [facility] Swabs 5-04 area(s) 4 ity of (ALCOHOL 00:00: (four) [place] PADS) PadM 00 times Medical daily. Branch Blood-Gluco 0 Yes Check [facility] se Meter 5-04 glucose 4 ity of Kit 00:00: times a [place] day. Medical Branch blood sugar 0 Yes Check [facility] diagnostic 5-04 gluocose 4 ity of (BLOOD 00:00: times a [place] GLUCOSE 00 day Medical TEST) strip Branch Lancets 2022-0 Yes Check [facility] Misc 5-04 glucose 4 ity of 00:00: times a [place] 00 day Medical Branch Alcohol 2022-0 Yes Apply to [facility] Swabs 5-04 area(s) 4 ity of (ALCOHOL 00:00: (four) [place] PADS) PadM 00 times Medical daily. Branch Blood-Gluco 2022-0 Yes Check [facility] se Meter 5-04 glucose 4 ity of Kit 00:00: times a [place] 00 day. Medical Branch blood sugar Yes Check [facility] diagnostic 5-04 gluocose 4 ity of (BLOOD 00:00: times a [place] GLUCOSE 00 day Medical TEST) strip Branch Lancets 0 Yes Check [facility] Misc 5-04 glucose 4 ity of 00:00: times a [place] day Medical Branch Alcohol 2022-0 Yes Apply to [facility] Swabs 5-04 area(s) 4 ity of (ALCOHOL 00:00: (four) [place] PADS) PadM 00 times Medical daily. Branch Blood-Gluco Yes Check [facility] se Meter 5-04 glucose 4 ity of Kit 00:00: times a day. Medical Branch blood sugar Yes Check [facility] diagnostic 5-04 gluocose 4 ity of (BLOOD 00:00: times a [place] GLUCOSE day Medical TEST) strip Branch Lancets Yes Check [facility] Misc 5-04 glucose 4 ity of 00:00: times a [place] day Medical Branch Alcohol 2022-0 Yes Apply to [facility] Swabs 5-04 area(s) 4 ity of (ALCOHOL 00:00: (four) [place] PADS) PadM 00 times Medical daily. Branch Blood-Gluco Yes Check [facility] se Meter 5-04 glucose 4 ity of Kit 00:00: times a day. Medical Branch blood sugar Yes Check [facility] diagnostic 5-04 gluocose 4 ity of (BLOOD 00:00: times a [place] GLUCOSE day Medical TEST) strip Branch Lancets 0 Yes Check [facility] Misc 5-04 glucose 4 ity of 00:00: times a [place] 00 day Medical Branch Alcohol 2022-0 Yes Apply to [facility] Swabs 5-04 area(s) 4 ity of (ALCOHOL 00:00: (four) [place] PADS) PadM 00 times Medical daily. Branch Blood-Gluco Yes Check [facility] se Meter 5-04 glucose 4 ity of Kit 00:00: times a [place] 00 day. Medical Branch blood sugar Yes Check [facility] diagnostic 5-04 gluocose 4 ity of (BLOOD 00:00: times a [place] GLUCOSE 00 day Medical TEST) strip Branch Lancets 2023-0 Yes Check [facility] Misc 5-04 glucose 4 ity of 00:00: times a [place] 00 day Medical Branch Alcohol 2022-0 Yes Apply to [facility] Swabs 5-04 area(s) 4 ity of (ALCOHOL 00:00: (four) [place] PADS) PadM 00 times Medical daily. Branch Blood-Gluco Yes Check [facility] se Meter 5-04 glucose 4 ity of Kit 00:00: times a [place] day. Medical Branch blood sugar Yes Check [facility] diagnostic 5-04 gluocose 4 ity of (BLOOD 00:00: times a [place] GLUCOSE 00 day Medical TEST) strip Branch Lancets Yes Check [facility] Misc 5-04 glucose 4 ity of 00:00: times a [place] 00 day Medical Branch Alcohol 2022-0 Yes Apply to [facility] Swabs 5-04 area(s) 4 ity of (ALCOHOL 00:00: (four) [place] PADS) PadM 00 times Medical daily. Branch Blood-Gluco Yes Check [facility] se Meter 5-04 glucose 4 ity of Kit 00:00: times a day. Medical Branch blood sugar Yes Check [facility] diagnostic 5-04 gluocose 4 ity of (BLOOD 00:00: times a [place] GLUCOSE 00 day Medical TEST) strip Branch Lancets 0 Yes Check [facility] Misc 5-04 glucose 4 ity of 00:00: times a [place] 00 day Medical Branch Alcohol 2022-0 Yes Apply to [facility] Swabs 5-04 area(s) 4 ity of (ALCOHOL 00:00: (four) [place] PADS) PadM 00 times Medical daily. Branch Blood-Gluco Yes Check [facility] se Meter 5-04 glucose 4 ity of Kit 00:00: times a [place] day. Medical Branch blood sugar 0 Yes Check [facility] diagnostic 5-04 gluocose 4 ity of (BLOOD 00:00: times a [place] GLUCOSE 00 day Medical TEST) strip Branch Lancets 0 Yes Check [facility] Misc 5-04 glucose 4 ity of 00:00: times a [place] 00 day Medical Branch Alcohol 2022-0 Yes Apply to [facility] Swabs 5-04 area(s) 4 ity of (ALCOHOL 00:00: (four) [place] PADS) PadM 00 times Medical daily. Branch Blood-Gluco 2022-0 Yes Check [facility] se Meter 5-04 glucose 4 ity of Kit 00:00: times a [place] 00 day. Medical Branch blood sugar 2022-0 Yes Check [facility] diagnostic 5-04 gluocose 4 ity of (BLOOD 00:00: times a [place] GLUCOSE 00 day Medical TEST) strip Branch Lancets 2022-0 Yes Check [facility] Misc 5-04 glucose 4 ity of 00:00: times a [place] 00 day Medical Branch Alcohol 2022-0 Yes Apply to [facility] Swabs 5-04 area(s) 4 ity of (ALCOHOL 00:00: (four) [place] PADS) PadM 00 times Medical daily. Branch Blood-Gluco 2022-0 Yes Check [facility] se Meter 5-04 glucose 4 ity of Kit 00:00: times a [place] 00 day. Medical Branch blood sugar 2022-0 Yes Check [facility] diagnostic 5-04 gluocose 4 ity of (BLOOD 00:00: times a [place] GLUCOSE 00 day Medical TEST) strip Branch Lancets 2022-0 Yes Check [facility] Misc 5-04 glucose 4 ity of 00:00: times a [place] 00 day Medical Branch Alcohol 3-0 Yes Apply to [facility] Swabs 5-04 area(s) 4 ity of (ALCOHOL 00:00: (four) [place] PADS) PadM 00 times Medical daily. Branch Blood-Gluco 2022-0 Yes Check [facility] se Meter 5-04 glucose 4 ity of Kit 00:00: times a [place] day. Medical Branch blood sugar 2022-0 Yes Check [facility] diagnostic 5-04 gluocose 4 ity of (BLOOD 00:00: times a [place] GLUCOSE 00 day Medical TEST) strip Branch Lancets 2022-0 Yes Check [facility] Misc 5-04 glucose 4 ity of 00:00: times a [place] 00 day Medical Branch Alcohol 3-0 Yes Apply to [facility] Swabs 5-04 area(s) 4 ity of (ALCOHOL 00:00: (four) [place] PADS) PadM 00 times Medical daily. Branch Blood-Gluco 2022-0 Yes Check [facility] se Meter 5-04 glucose 4 ity of Kit 00:00: times a [place] 00 day. Medical Branch blood sugar 2023-0 Yes Check [facility] diagnostic 5-04 gluocose 4 ity of (BLOOD 00:00: times a [place] GLUCOSE 00 day Medical TEST) strip Branch Lancets Yes Check [facility] Misc 5-04 glucose 4 ity of 00:00: times a [place] 00 day Medical Branch Alcohol 0 Yes Apply to [facility] Swabs 5-04 area(s) 4 ity of (ALCOHOL 00:00: (four) [place] PADS) PadM 00 times Medical daily. Branch Blood-Gluco Yes Check [facility] se Meter 5-04 glucose 4 ity of Kit 00:00: times a [place] day. Medical Branch blood sugar Yes Check [facility] diagnostic 5-04 gluocose 4 ity of (BLOOD 00:00: times a [place] GLUCOSE day Medical TEST) strip Branch Lancets Yes Check [facility] Misc 5-04 glucose 4 ity of 00:00: times a [place] day Medical Branch Alcohol Yes Apply to [facility] Swabs 5-04 area(s) 4 ity of (ALCOHOL 00:00: (four) [place] PADS) PadM 00 times Medical daily. Branch Blood-Gluco Yes Check [facility] se Meter 5-04 glucose 4 ity of Kit 00:00: times a day. Medical Branch blood sugar Yes Check [facility] diagnostic 5-04 gluocose 4 ity of (BLOOD 00:00: times a [place] GLUCOSE 00 day Medical TEST) strip Branch Lancets Yes Check [facility] Misc 5-04 glucose 4 ity of 00:00: times a [place] day Medical Branch Alcohol 2022-0 Yes Apply to [facility] Swabs 5-04 area(s) 4 ity of (ALCOHOL 00:00: (four) [place] PADS) PadM 00 times Medical daily. Branch Blood-Gluco Yes Check [facility] se Meter 5-04 glucose 4 ity of Kit 00:00: times a [place] 00 day. Medical Branch blood sugar Yes Check [facility] diagnostic 5-04 gluocose 4 ity of (BLOOD 00:00: times a [place] GLUCOSE 00 day Medical TEST) strip Branch Lancets Yes Check [facility] Misc 5-04 glucose 4 ity of 00:00: times a [place] 00 day Medical Branch Alcohol 0 Yes Apply to [facility] Swabs 5-04 area(s) 4 ity of (ALCOHOL 00:00: (four) [place] PADS) PadM 00 times Medical daily. Branch Blood-Gluco Yes Check [facility] se Meter 5-04 glucose 4 ity of Kit 00:00: times a [place] 00 day. Medical Branch blood sugar Yes Check [facility] diagnostic 5-04 gluocose 4 ity of (BLOOD 00:00: times a [place] GLUCOSE 00 day Medical TEST) strip Branch Lancets Yes Check [facility] Misc 5-04 glucose 4 ity of 00:00: times a [place] 00 day Medical Branch Alcohol Yes Apply to [facility] Swabs 5-04 area(s) 4 ity of (ALCOHOL 00:00: (four) [place] PADS) PadM 00 times Medical daily. Branch Blood-Gluco Yes Check [facility] se Meter 5-04 glucose 4 ity of Kit 00:00: times a day. Medical Branch blood sugar Yes Check [facility] diagnostic 5-04 gluocose 4 ity of (BLOOD 00:00: times a [place] GLUCOSE 00 day Medical TEST) strip Branch Lancets 0 Yes Check [facility] Misc 5-04 glucose 4 ity of 00:00: times a [place] 00 day Medical Branch Alcohol 0 Yes Apply to [facility] Swabs 5-04 area(s) 4 ity of (ALCOHOL 00:00: (four) [place] PADS) PadM 00 times Medical daily. Branch Blood-Gluco 2022- No Check [facility] se Meter 5-10 02-06 glucose 4 ity o f Kit 00:00: 00:00 times a [place] 00 :00 day. Medical Branch blood sugar 2022- No Check [facility] diagnostic 5-10 02-06 gluocose 4 it y of (BLOOD 00:00: 00:00 times a [place] GLUCOSE 00 :00 day Medical TEST) strip Branch Lancets 2022- No Check [facility] Misc 5-04 07-06 glucose 4 ity of 00:00: 00:00 times a [place] 00 :00 day Medical Branch Alcohol 2022-0 2022- No Apply to [facility] Swabs 5-12-31 area(s) 4 ity of (ALCOHOL 00:00: 00:00 (four) [place] PADS) PadM 00 :00 times Medical daily. Branch ondansetron 2023-0 Yes [id number] 8mg Take 1 [facility] 8 mg 4-28 tablet by ity of disintegrat 00:00: mouth [place] ing tablet 00 every 8 Medica l (eight) Branch hours as needed for Nausea and Vomiting (N/V). ondansetron 2023-0 Yes [id number] 8mg Take 1 [facility] 8 mg 4-28 tablet by ity of disintegrat 00:00: mouth [place] ing tablet 00 every 8 Medica l (eight) Branch hours as needed for Nausea and Vomiting (N/V). ondansetron 2023-0 Yes [id number] 8mg Take 1 [facility] 8 mg 4-28 tablet by ity of disintegrat 00:00: mouth [place] ing tablet 00 every 8 Medica l (eight) Branch hours as needed for Nausea and Vomiting (N/V). ondansetron 2023-0 Yes [id number] 8mg Take 1 [facility] 8 mg 4-28 tablet by ity of disintegrat 00:00: mouth [place] ing tablet 00 every 8 Medica l (eight) Branch hours as needed for Nausea and Vomiting (N/V). ondansetron 2023-0 Yes [id number] 8mg Take 1 [facility] 8 mg 4-28 tablet by ity of disintegrat 00:00: mouth [place] ing tablet 00 every 8 Medica l (eight) Branch hours as needed for Nausea and Vomiting (N/V). ondansetron 2023-0 Yes [id number] 8mg Take 1 [facility] 8 mg 4-28 tablet by ity of disintegrat 00:00: mouth [place] ing tablet 00 every 8 Medica l (eight) Branch hours as needed for Nausea and Vomiting (N/V). ondansetron 2023-0 Yes [id number] 8mg Take 1 [facility] 8 mg 4-28 tablet by ity of disintegrat 00:00: mouth [place] ing tablet 00 every 8 Medica l (eight) Branch hours as needed for Nausea and Vomiting (N/V). ondansetron 2023-0 Yes [id number] 8mg Take 1 [facility] 8 mg 4-28 tablet by ity of disintegrat 00:00: mouth [place] ing tablet 00 every 8 Medica l (eight) Branch hours as needed for Nausea and Vomiting (N/V). ondansetron 2023-0 Yes [id number] 8mg Take 1 [facility] 8 mg 4-28 tablet by ity of disintegrat 00:00: mouth [place] ing tablet 00 every 8 Medica l (eight) Branch hours as needed for Nausea and Vomiting (N/V). ondansetron 2023-0 Yes [id number] 8mg Take 1 [facility] 8 mg 4-28 tablet by ity of disintegrat 00:00: mouth [place] ing tablet 00 every 8 Medica l (eight) Branch hours as needed for Nausea and Vomiting (N/V). ondansetron 2023-0 Yes [id number] 8mg Take 1 [facility] 8 mg 4-28 tablet by ity of disintegrat 00:00: mouth [place] ing tablet 00 every 8 Medica l (eight) Branch hours as needed for Nausea and Vomiting (N/V). ondansetron 2023-0 Yes [id number] 8mg Take 1 [facility] 8 mg 4-28 tablet by ity of disintegrat 00:00: mouth [place] ing tablet 00 every 8 Medica l (eight) Branch hours as needed for Nausea and Vomiting (N/V). ondansetron 2023-0 Yes [id number] 8mg Take 1 [facility] 8 mg 4-28 tablet by ity of disintegrat 00:00: mouth [place] ing tablet 00 every 8 Medica l (eight) Branch hours as needed for Nausea and Vomiting (N/V). ondansetron 2023-0 Yes [id number] 8mg Take 1 [facility] 8 mg 4-28 tablet by ity of disintegrat 00:00: mouth [place] ing tablet 00 every 8 Medica l (eight) Branch hours as needed for Nausea and Vomiting (N/V). ondansetron 2023-0 Yes [id number] 8mg Take 1 [facility] 8 mg 4-28 tablet by ity of disintegrat 00:00: mouth [place] ing tablet 00 every 8 Medica l (eight) Branch hours as needed for Nausea and Vomiting (N/V). ondansetron 2023-0 Yes [id number] 8mg Take 1 [facility] 8 mg 4-28 tablet by ity of disintegrat 00:00: mouth [place] ing tablet 00 every 8 Medica l (eight) Branch hours as needed for Nausea and Vomiting (N/V). ondansetron 2023-0 Yes [id number] 8mg Take 1 [facility] 8 mg 4-28 tablet by ity of disintegrat 00:00: mouth [place] ing tablet 00 every 8 Medica l (eight) Branch hours as needed for Nausea and Vomiting (N/V). ondansetron 2023-0 Yes [id number] 8mg Take 1 [facility] 8 mg 4-28 tablet by ity of disintegrat 00:00: mouth [place] ing tablet 00 every 8 Medica l (eight) Branch hours as needed for Nausea and Vomiting (N/V). ondansetron 2023-0 Yes [id number] 8mg Take 1 [facility] 8 mg 4-28 tablet by ity of disintegrat 00:00: mouth [place] ing tablet 00 every 8 Medica l (eight) Branch hours as needed for Nausea and Vomiting (N/V). ondansetron 2023-0 Yes [id number] 8mg Take 1 [facility] 8 mg 4-28 tablet by ity of disintegrat 00:00: mouth [place] ing tablet 00 every 8 Medica l (eight) Branch hours as needed for Nausea and Vomiting (N/V). ondansetron 2023-0 Yes [id number] 8mg Take 1 [facility] 8 mg 4-28 tablet by ity of disintegrat 00:00: mouth [place] ing tablet 00 every 8 Medica l (eight) Branch hours as needed for Nausea and Vomiting (N/V). ondansetron 2023-0 Yes [id number] 8mg Take 1 [facility] 8 mg 4-28 tablet by ity of disintegrat 00:00: mouth [place] ing tablet 00 every 8 Medica l (eight) Branch hours as needed for Nausea and Vomiting (N/V). ondansetron 2023-0 Yes [id number] 8mg Take 1 [facility] 8 mg 4-28 tablet by ity of disintegrat 00:00: mouth [place] ing tablet 00 every 8 Medica l (eight) Branch hours as needed for Nausea and Vomiting (N/V). ondansetron 2023-0 Yes [id number] 8mg Take 1 [facility] 8 mg 4-28 tablet by ity of disintegrat 00:00: mouth [place] ing tablet 00 every 8 Medica l (eight) Branch hours as needed for Nausea and Vomiting (N/V). ondansetron 2023-0 Yes [id number] 8mg Take 1 [facility] 8 mg 4-28 tablet by ity of disintegrat 00:00: mouth [place] ing tablet 00 every 8 Medica l (eight) Branch hours as needed for Nausea and Vomiting (N/V). ondansetron 2023-0 Yes [id number] 8mg Take 1 [facility] 8 mg 4-28 tablet by ity of disintegrat 00:00: mouth [place] ing tablet 00 every 8 Medica l (eight) Branch hours as needed for Nausea and Vomiting (N/V). ondansetron 2023-0 Yes [id number] 8mg Take 1 [facility] 8 mg 4-28 tablet by ity of disintegrat 00:00: mouth [place] ing tablet 00 every 8 Medica l (eight) Branch hours as needed for Nausea and Vomiting (N/V). ondansetron 2023-0 Yes [id number] 8mg Take 1 [facility] 8 mg 4-28 tablet by ity of disintegrat 00:00: mouth [place] ing tablet 00 every 8 Medica l (eight) Branch hours as needed for Nausea and Vomiting (N/V). ondansetron 2023-0 Yes [id number] 8mg Take 1 [facility] 8 mg 4-28 tablet by ity of disintegrat 00:00: mouth [place] ing tablet 00 every 8 Medica l (eight) Branch hours as needed for Nausea and Vomiting (N/V). ondansetron 2023-0 Yes [id number] 8mg Take 1 [facility] 8 mg 4-28 tablet by ity of disintegrat 00:00: mouth [place] ing tablet 00 every 8 Medica l (eight) Branch hours as needed for Nausea and Vomiting (N/V). ondansetron 2023-0 Yes [id number] 8mg Take 1 [facility] 8 mg 4-28 tablet by ity of disintegrat 00:00: mouth [place] ing tablet 00 every 8 Medica l (eight) Branch hours as needed for Nausea and Vomiting (N/V). ondansetron 2023-0 Yes [id number] 8mg Take 1 [facility] 8 mg 4-28 tablet by ity of disintegrat 00:00: mouth [place] ing tablet 00 every 8 Medica l (eight) Branch hours as needed for Nausea and Vomiting (N/V). ondansetron 2023-0 Yes [id number] 8mg Take 1 [facility] 8 mg 4-28 tablet by ity of disintegrat 00:00: mouth [place] ing tablet 00 every 8 Medica l (eight) Branch hours as needed for Nausea and Vomiting (N/V). ondansetron 2022- No [id number] 8mg Take 1 [facility] 8 mg 4-28 07-06 tablet by ity of disintegrat 00:00: 00:00 [place] tablet 00 :00 every 8 Medica l (eight) Branch hours as needed for Nausea and Vomiting (N/V). Yes Take by [employer] vit/iron 4-16 mouth. ity of fum/folic 15:03: [place] [id number] Medical ( 1 Branch + 1 ORAL) levothyroxi Yes 1 tablet Un th[facility] ne 137 mcg 4-16 in the ity of tablet 15:03: morning on [place] [address] an empty Medical stomach Branch Yes Take by [employer] vit/iron 4-16 mouth. ity of fum/folic 15:03: [place] [id number] Medical ( 1 Branch + 1 ORAL) levothyroxi 0 Yes 1 tablet Un th[facility] ne 137 mcg 4-16 in the ity of tablet 15:03: morning on [place] [address] an empty Medical stomach Branch Yes Take by [employer] vit/iron 4-16 mouth. ity of fum/folic 15:03: [place] [id number] Medical ( 1 Branch + 1 ORAL) levothyroxi 0 Yes 1 tablet [facility] th[facility] ne 137 mcg 4-16 in the ity of tablet 15:03: morning on [place] [address] an empty Medical stomach Branch 0 Yes Take by [employer] vit/iron 4-16 mouth. ity of fum/folic 15:03: [place] [id number] Medical ( 1 Branch + 1 ORAL) levothyroxi 0 Yes 1 tablet Un th[facility] ne 137 mcg 4-16 in the ity of tablet 15:03: morning on [place] [address] an empty Medical stomach Branch 0 Yes Take by [employer] vit/iron 4-16 mouth. ity of fum/folic 15:03: [place] [id number] Medical ( 1 Branch + 1 ORAL) levothyroxi 2022-0 Yes 1 tablet [facility] ne 137 mcg 4-16 in the ity of tablet 15:03: morning on [place] [address] an empty Medical stomach Branch 0 Yes Take by [facility] vit/iron 4-16 mouth. ity of fum/folic 15:03: [place] [id number] Medical ( 1 Branch + 1 ORAL) levothyroxi 2022-0 Yes 1 tablet [facility] th[facility] ne 137 mcg 4-16 in the ity of tablet 15:03: morning on [place] [address] an empty Medical stomach Branch 0 Yes Take by [facility] vit/iron 4-16 mouth. ity of fum/folic 15:03: [place] [id number] Medical ( 1 Branch + 1 ORAL) levothyroxi 2022-0 Yes 1 tablet Un th[facility] ne 137 mcg 4-16 in the ity of tablet 15:03: morning on [place] [address] an empty Medical stomach Branch 0 Yes Take by [facility] vit/iron 4-16 mouth. ity of fum/folic 15:03: [place] [id number] Medical ( 1 Branch + 1 ORAL) levothyroxi 2022-0 Yes 1 tablet [facility] ne 137 mcg 4-16 in the ity of tablet 15:03: morning on [place] [address] an empty Medical stomach Branch 0 Yes Take by [facility] vit/iron 4-16 mouth. ity of fum/folic 15:03: [place] [id number] Medical ( 1 Branch + 1 ORAL) levothyroxi 2022-0 Yes 1 tablet Un th[facility] ne 137 mcg 4-16 in the ity of tablet 15:03: morning on [place] [address] an empty Medical stomach Branch 0 Yes Take by [facility] vit/iron 4-16 mouth. ity of fum/folic 15:03: [place] [id number] Medical ( 1 Branch + 1 ORAL) levothyroxi 2022-0 Yes 1 tablet [facility] ne 137 mcg 4-16 in the ity of tablet 15:03: morning on [place] [address] an empty Medical stomach Branch 0 Yes Take by [facility] vit/iron 4-16 mouth. ity of fum/folic 15:03: [place] [id number] Medical ( 1 Branch + 1 ORAL) levothyroxi 2022-0 Yes 1 tablet Un th[facility] ne 137 mcg 4-16 in the ity of tablet 15:03: morning on [place] [address] an empty Medical stomach Branch 0 Yes Take by [facility] vit/iron 4-16 mouth. ity of fum/folic 15:03: [place] [id number] Medical ( 1 Branch + 1 ORAL) levothyroxi 0 Yes 1 tablet Un thien ne 137 mcg 4-16 in the ity of tablet 15:03: morning on [place] [address] an empty Medical stomach Branch 0 Yes Take by [facility] vit/iron 4-16 mouth. ity of fum/folic 15:03: [place] [id number] Medical ( 1 Branch + 1 ORAL) levothyroxi 0 Yes 1 tablet Un th[facility] ne 137 mcg 4-16 in the ity of tablet 15:03: morning on [place] [address] an empty Medical stomach Branch 0 Yes Take by [facility] vit/iron 4-16 mouth. ity of fum/folic 15:03: [place] [id number] Medical ( 1 Branch + 1 ORAL) levothyroxi 0 Yes 1 tablet Un th[facility] ne 137 mcg 4-16 in the ity of tablet 15:03: morning on [place] [address] an empty Medical stomach Branch 0 Yes Take by [facility] vit/iron 4-16 mouth. ity of fum/folic 15:03: [place] [id number] Medical ( 1 Branch + 1 ORAL) levothyroxi 0 Yes 1 tablet Un thien ne 137 mcg 4-16 in the ity of tablet 15:03: morning on [place] [address] an empty Medical stomach Branch 0 Yes Take by [facility] vit/iron 4-16 mouth. ity of fum/folic 15:03: [place] [id number] Medical ( 1 Branch + 1 ORAL) levothyroxi 2022-0 Yes 1 tablet Un th[facility] ne 137 mcg 4-16 in the ity of tablet 15:03: morning on [place] [address] an empty Medical stomach Branch Levothyroxi 2022-0 2022- No Take by [facility] ne 137 mcg 4-14 04-14 mouth. ity of Cap 15:27: 00:00 [place] 26 :00 [facility] Branch DULoxetine 2022-0 2022- No 30mg Take 30 mg [facility] (CYMBALTA) 4-14 04-14 by mouth ity of 30 mg 15:27: 00:00 in the [place] capsule 05 :00 morning. Medical Branch magnesium 2023-0 Yes [id number] 400mg Take 1 [facility] oxide 400 4-14 tablet by ity o f mg (241.3 00:00[place] the [place] magnesium[place] morning. Branc h tablet magnesium 3-0 Yes [id number] 400mg Take 1 [facility] oxide 400 4-14 tablet by ity o f mg (241.3 00:00[place] the [facility] magnesium[place] morning. Branc h tablet magnesium 3-0 Yes [id number] 400mg Take 1 [facility] oxide 400 4-14 tablet by ity o f mg (241.3 00:00[place] the [facility] magnesium[place] morning. Branc h tablet magnesium 3-0 Yes [id number] 400mg Take 1 [facility] oxide 400 4-14 tablet by ity o f mg (241.3 00:00[place] the [facility] magnesium[place] morning. Branc h tablet magnesium 3-0 Yes [id number] 400mg Take 1 [facility] oxide 400 4-14 tablet by ity o f mg (241.3 00:00[place] the [facility] magnesium[place] morning. Branc h tablet magnesium 3-0 Yes [id number] 400mg Take 1 [facility] oxide 400 4-14 tablet by ity o f mg (241.3 00:00[place] the [facility] magnesium[place] morning. Branc h tablet magnesium 3-0 Yes [id number] 400mg Take 1 [facility] oxide 400 4-14 tablet by ity o f mg (241.3 00:00[place] the [facility] magnesium[place] morning. Branc h tablet magnesium 3-0 Yes [id number] 400mg Take 1 [facility] oxide 400 4-14 tablet by ity o f mg (241.3 00:00[place] the [facility] magnesium[place] morning. Branc h tablet magnesium 3-0 Yes [id number] 400mg Take 1 [facility] oxide 400 4-14 tablet by ity o f mg (241.3 00:00[place] the [facility] magnesium) morning. Branc h tablet magnesium 3-0 Yes [id number] 400mg Take 1 [facility] oxide 400 4-14 tablet by ity o f mg (241.3 00:00[place] 00 the [facility] magnesium) morning. Branc h tablet magnesium 3-0 Yes [id number] 400mg Take 1 [facility] oxide 400 4-14 tablet by ity o f mg (241.3 00:00[place] 00 the [facility] magnesium) morning. Branc h tablet magnesium 3-0 Yes [id number] 400mg Take 1 [facility] oxide 400 4-14 tablet by ity o f mg (241.3 00:00[place] 00 the [facility] magnesium) morning. Branc h tablet magnesium 3-0 Yes [id number] 400mg Take 1 [facility] oxide 400 4-14 tablet by ity o f mg (241.3 00:00[place] the [facility] magnesium) morning. Branc h tablet magnesium 3-0 Yes [id number] 400mg Take 1 [facility] oxide 400 4-14 tablet by ity o f mg (241.3 00:00[place] 00 the [facility] magnesium) morning. Branc h tablet magnesium 3-0 Yes [id number] 400mg Take 1 [facility] oxide 400 4-14 tablet by ity o f mg (241.3 00:00[place] 00 the [facility] magnesium) morning. Branc h tablet magnesium 3-0 Yes [id number] 400mg Take 1 [facility] oxide 400 4-14 tablet by ity o f mg (241.3 00:00: [place] 00 the [facility] magnesium) morning. Branc h tablet magnesium 3-0 Yes [id number] 400mg Take 1 [facility] oxide 400 4-14 tablet by ity o f mg (241.3 00:00: [place] 00 the [facility] magnesium) morning. Branc h tablet magnesium 3-0 Yes [id number] 400mg Take 1 [facility] oxide 400 4-14 tablet by ity o f mg (241.3 00:00: [place] 00 the [facility] magnesium) morning. Branc h tablet magnesium 3-0 Yes [id number] 400mg Take 1 [facility] oxide 400 4-14 tablet by ity o f mg (241.3 00:00: [place] 00 the [facility] magnesium) morning. Branc h tablet magnesium 3-0 Yes [id number] 400mg Take 1 [facility] oxide 400 4-14 tablet by ity o f mg (241.3 00:00: [place] 00 the [facility] magnesium) morning. Branc h tablet magnesium 3-0 Yes [id number] 400mg Take 1 [facility] oxide 400 4-14 tablet by ity o f mg (241.3 00:00: [place] 00 the [facility] magnesium) morning. Branc h tablet magnesium 3-0 Yes [id number] 400mg Take 1 [facility] oxide 400 4-14 tablet by ity o f mg (241.3 00:00: [place] 00 the [facility] magnesium) morning. Branc h tablet magnesium 3-0 Yes [id number] 400mg Take 1 [facility] oxide 400 4-14 tablet by ity o f mg (241.3 00:00: [place] 00 the [facility] magnesium) morning. Branc h tablet magnesium 3-0 Yes [id number] 400mg Take 1 [facility] oxide 400 4-14 tablet by ity o f mg (241.3 00:00: [place] 00 the [facility] magnesium) morning. Branc h tablet magnesium 3-0 Yes [id number] 400mg Take 1 [facility] oxide 400 4-14 tablet by ity o f mg (241.3 00:00: [place] 00 the [facility] magnesium) morning. Branc h tablet magnesium 3-0 Yes [id number] 400mg Take 1 [facility] oxide 400 4-14 tablet by ity o f mg (241.3 00:00: [place] 00 the [facility] magnesium) morning. Branc h tablet magnesium 3-0 Yes [id number] 400mg Take 1 [facility] oxide 400 4-14 tablet by ity o f mg (241.3 00:00: [place] 00 the [facility] magnesium) morning. Branc h tablet magnesium 3-0 Yes [id number] 400mg Take 1 [facility] oxide 400 4-14 tablet by ity o f mg (241.3 00:00: [place] 00 the [facility] magnesium) morning. Branc h tablet magnesium 3-0 Yes [id number] 400mg Take 1 [facility] oxide 400 4-14 tablet by ity o f mg (241.3 00:00: [place] 00 the [facility] magnesium) morning. Branc h tablet magnesium 3-0 Yes [id number] 400mg Take 1 [facility] oxide 400 4-14 tablet by ity o f mg (241.3 00:00: [place] 00 the [facility] magnesium) morning. Branc h tablet magnesium 3-0 Yes [id number] 400mg Take 1 [facility] oxide 400 4-14 tablet by ity o f mg (241.3 00:00: [place] 00 the [facility] magnesium) morning. Branc h tablet magnesium 3-0 Yes [id number] 400mg Take 1 [facility] oxide 400 4-14 tablet by ity o f mg (241.3 00:00: [place] mg 00 the [facility] magnesium) morning. Branc h tablet magnesium 3-0 Yes [id number] 400mg Take 1 [facility] oxide 400 4-14 tablet by ity o f mg (241.3 00:00: [place] mg 00 the [facility] magnesium) morning. Branc h tablet magnesium 3-0 Yes [id number] 400mg Take 1 [facility] oxide 400 4-14 tablet by ity o f mg (241.3 00:00: [place] mg 00 the [facility] magnesium) morning. Branc h tablet magnesium 3-0 Yes [id number] 400mg Take 1 [facility] oxide 400 4-14 tablet by ity o f mg (241.3 00:00: [place] mg 00 the [facility] magnesium) morning. Branc h tablet magnesium 3-0 Yes [id number] 400mg Take 1 [facility] oxide 400 4-14 tablet by ity o f mg (241.3 00:00: [place] mg 00 the [facility] magnesium) morning. Branc h tablet magnesium 3-0 Yes [id number] 400mg Take 1 [facility] oxide 400 4-14 tablet by ity o f mg (241.3 00:00: [place] mg 00 the [facility] magnesium) morning. Branc h tablet magnesium 3-0 Yes [id number] 400mg Take 1 [facility] oxide 400 4-14 tablet by ity o f mg (241.3 00:00: [place] mg 00 the [facility] magnesium) morning. Branc h tablet magnesium 3-0 Yes [id number] 400mg Take 1 [facility] oxide 400 4-14 tablet by ity o f mg (241.3 00:00: [place] mg 00 the [facility] magnesium) morning. Branc h tablet magnesium 2022-0 Yes [id number] 400mg Take 1 [facility] oxide 400 4-14 tablet by ity o f mg (241.3 00:00: [place] 00 the [facility] magnesium) morning. Branc h tablet magnesium 2022-0 2023- No [id number] 400mg Take 1 [facility] oxide 400 4-14 07-06 tablet by ity of mg (241.3 00:00: 00:00 mouth in [place] mg 00 :00 the Medical magnesium) morning. Branc h tablet DULoxetine 2022-0 Yes [facility] 60 mg 4-12 ity of capsule 00:00: [place] [facility] DULoxetine 3-0 Yes [facility] 60 mg 4-12 ity of capsule 00:00: [place] [facility] DULoxetine 3-0 Yes [facility] 60 mg 4-12 ity of capsule 00:00: [place] [address] [facility] Branch DULoxetine 3-0 Yes [facility] 60 mg 4-12 ity of capsule 00:00: [place] [address] Medical Branch DULoxetine 3-0 Yes [facility] 60 mg 4-12 ity of capsule 00:00: [place] [address] [facility] Branch DULoxetine 3-0 Yes [facility] 60 mg 4-12 ity of capsule 00:00: [place] [address] [facility] Branch DULoxetine 3-0 Yes [facility] 60 mg 4-12 ity of capsule 00:00: [place] [address] [facility] Branch DULoxetine 3-0 Yes [facility] 60 mg 4-12 ity of capsule 00:00: [place] [facility] DULoxetine 3-0 Yes [facility] 60 mg 4-12 ity of capsule 00:00: [place] [facility] DULoxetine 3-0 Yes [facility] 60 mg 4-12 ity of capsule 00:00: [place] [address] [facility] Branch DULoxetine 3-0 Yes [facility] 60 mg 4-12 ity of capsule 00:00: [place] [address] [facility] Branch DULoxetine 3-0 Yes [facility] 60 mg 4-12 ity of capsule 00:00: [place] [address] [facility] Branch DULoxetine 3-0 Yes [facility] 60 mg 4-12 ity of capsule 00:00: [place] [address] [facility] Branch DULoxetine 3-0 Yes [facility] 60 mg 4-12 ity of capsule 00:00: [place] [address] [facility] Branch DULoxetine 2023-0 Yes [facility] 60 mg 4-12 ity of capsule 00:00: [place] [facility] DULoxetine 2023-0 Yes [facility] 60 mg 4-12 ity of capsule 00:00: [place] [facility] DULoxetine 2023-0 Yes [facility] 60 mg 4-12 ity of capsule 00:00: [place] [facility] DULoxetine 2023-0 Yes [facility] 60 mg 4-12 ity of capsule 00:00: [place] [facility] DULoxetine 2023-0 Yes [facility] 60 mg 4-12 ity of capsule 00:00: [place] [facility] DULoxetine 2023-0 Yes [facility] 60 mg 4-12 ity of capsule 00:00: [place] [address] [facility] Branch DULoxetine 2023-0 Yes [facility] 60 mg 4-12 ity of capsule 00:00: [place] [facility] DULoxetine 2023-0 Yes [facility] 60 mg 4-12 ity of capsule 00:00: [place] [address] [facility] Branch DULoxetine 2023-0 Yes [facility] 60 mg 4-12 ity of capsule 00:00: [place] [address] [facility] Branch DULoxetine 2023-0 Yes [facility] 60 mg 4-12 ity of capsule 00:00: [place] [address] [facility] Branch DULoxetine 2023-0 Yes [facility] 60 mg 4-12 ity of capsule 00:00: [place] [address] [facility] Branch DULoxetine 2023-0 Yes [facility] 60 mg 4-12 ity of capsule 00:00: [place] [address] [facility] Branch DULoxetine 2023-0 Yes [facility] 60 mg 4-12 ity of capsule 00:00: [place] [address] [facility] Branch DULoxetine 2023-0 Yes [facility] 60 mg 4-12 ity of capsule 00:00: [place] [address] [facility] Branch DULoxetine 2023-0 Yes [facility] 60 mg 4-12 ity of capsule 00:00: [place] [facility] DULoxetine 2023-0 Yes [facility] 60 mg 4-12 ity of capsule 00:00: [place] [address] [facility] Branch DULoxetine 2023-0 Yes [facility] 60 mg 4-12 ity of capsule 00:00: [place] [address] [facility] Branch DULoxetine 2023-0 Yes [facility] 60 mg 4-12 ity of capsule 00:00: [place] [facility] DULoxetine 2023-0 Yes [facility] 60 mg 4-12 ity of capsule 00:00: [place] [address] [facility] Branch DULoxetine 2023-0 Yes [facility] 60 mg 4-12 ity of capsule 00:00: [place] [address] [facility] Branch DULoxetine 2023-0 Yes [facility] 60 mg 4-12 ity of capsule 00:00: [place] [facility] DULoxetine 2022-0 Yes [facility] 60 mg 4-12 ity of capsule 00:00: [place] [facility] DULoxetine 2022-0 Yes [facility] 60 mg 4-12 ity of capsule 00:00: [place] [facility] DULoxetine 2022-0 Yes [facility] 60 mg 4-12 ity of capsule 00:00: [place] [facility] DULoxetine 2022-0 Yes [facility] 60 mg 4-12 ity of capsule 00:00: [place] [facility] DULoxetine 2022-0 Yes [facility] 60 mg 4-12 ity of capsule 00:00: [place] [facility] DULoxetine 2022-0 Yes [facility] 60 mg 4-12 ity of capsule 00:00: [place] [facility] DULoxetine 2022-0 Yes [facility] 60 mg 4-12 ity of capsule 00:00: [place] [facility] DULoxetine 2022-0 Yes [facility] 60 mg 4-12 ity of capsule 00:00: [place] [facility] DULoxetine 2022-0 Yes [facility] 60 mg 4-12 ity of capsule 00:00: [place] [facility] Branch acetaminoph Yes 650mg 650 mg, Un thien en 4-01 Oral, ity of (TYLENOL) 02:33: Q6HPN, [place] tablet 650 09 Starting Medic al mg on Wed Branch 09/25/22 at 2133, Until Discontinu ed, Routine, Pain (scale 4-6) Levothyroxi 0 Yes Take by Uni vers ne 137 mcg 3-31 mouth. ity of Cap 23:25: [place] [address] Medical Branch Yes Take by [facility] [place] [facility] s vit/iron 3-31 mouth. ity of fum/folic 23:25: [place] [address] Medical ( 1 Branch + 1 ORAL) DULoxetine 0 Yes 30mg Take 30 mg U nivers (CYMBALTA) 31 by mouth ity o f 30 mg 23:25: in the [facility] 16 morning. Medical Branch Levothyroxi 0 Yes Take by Uni vers ne 137 mcg 3-08 mouth. ity of Cap 22:30: [address] Yes Take by [facility] [place] [facility] s vit/iron 3-08 mouth. ity of fum/folic 22:30: [place] [address] Medical ( 1 Branch + 1 ORAL) DULoxetine 0 Yes 30mg Take 30 mg U nivers (CYMBALTA) 3-08 by mouth ity o f 30 mg 22:30: in the [place] capsule 50 morning. Medical Branch Levothyroxi 0 Yes Take by Uni vers ne 137 mcg 3-08 mouth. ity of Cap 22:30: [place] [address] Medical [place] Yes Take by Univer s vit/iron 3-08 mouth. ity of fum/folic 22:30: [place] [address] Medical ( 1 Branch + 1 ORAL) DULoxetine Yes 30mg Take 30 mg U nivers (CYMBALTA) 3-08 by mouth ity o f 30 mg 22:30: in the [place] capsule 50 morning. Medical Branch Yes Take by Univer s vit/iron 8-15 mouth. ity of fum/folic 15:42: [place] [address] Medical ( 1 Branch + 1 ORAL) DULoxetine 0 Yes 30mg Take 30 mg U nivers (CYMBALTA) 8-15 by mouth ity o f 30 mg 15:42: in the [place] capsule 19 morning. Medical Branch Yes Take by Univer s vit/iron 8-15 mouth. ity of fum/folic 15:42: [place] [address] Medical ( 1 Branch + 1 ORAL) DULoxetine 0 Yes 30mg Take 30 mg U nivers (CYMBALTA) 8-15 by mouth ity o f 30 mg 15:42: in the [place] capsule 19 morning. Medical Branch No known No No known Unive rs medications 8-15 medication it y of 15:42: s [place] [address] Medical [place] Yes Take by Univer s vit/iron 8-15 mouth. ity of fum/folic 15:42: [place] [address] Medical ( 1 Branch + 1 ORAL) DULoxetine 0 Yes 30mg Take 30 mg U nivers (CYMBALTA) 8-15 by mouth ity o f 30 mg 15:42: in the [place] capsule 19 morning. Medical Branch No known No No known Unive rs medications 8-15 medication it y of 15:42: s [place] [address] Medical [place] Levothyroxi 2022-0 Yes Take by Uni vers ne 137 mcg 8-11 mouth. ity of Cap 14:46: [address] Levothyroxi Yes Take by Uni vers ne 137 mcg 8-11 mouth. ity of Cap 14:46: [address] Levothyroxi Yes Take by Uni vers ne 137 mcg 8-11 mouth. ity of Cap 14:46: [address] norethindro 2021- No [id number] .35mg Take 1 Univers ne (ORTHO 4-29 08-11 tablet by ity of [facility]) 00:00: 00:00 mouth [place] 0.35 mg 00 [...] TAB.RAPDIS 00 Nausea / Vomiting Nystatin No [id number] HRISTU (Nystatin 3-18 Daily [...] Status Comments Sour e Immunization Name Name Rho (d) Immune 2022-12-10 Completed University of Globulin 00:00:00 [facility] Rho (d) Immune 2022-12-10 Completed University of Globulin 00:00:00 [facility] Rho (d) Immune 2022-12-10 Completed University of Globulin 00:00:00 [facility] Rho (d) Immune 2022-12-10 Completed University of Globulin 00:00:00 [facility] Rho (d) Immune 2022-12-10 Completed University of Globulin 00:00:00 [facility] Rho (d) Immune 2022-12-10 Completed University of Globulin 00:00:00 [facility] Rho (d) Immune 2022-12-10 Completed University of Globulin 00:00:00 [facility] Rho (d) Immune 2022-12-10 Completed University of Globulin 00:00:00 [facility] Rho (d) Immune 2022-12-10 Completed University of Globulin 00:00:00 [facility] TDAP 2022-10-23 Completed University of 00:00:00 [facility] Rho (d) Immune 2022-10-23 Completed University of Globulin 00:00:00 [facility] TDAP 2022-10-23 Completed University of 00:00:00 [facility] Rho (d) Immune 2022-10-23 Completed University of Globulin 00:00:00 [facility] TDAP 2022-10-23 Completed University of 00:00:00 [facility] Rho (d) Immune 2022-10-23 Completed University of Globulin 00:00:00 [facility] TDAP 2022-10-23 Completed University of 00:00:00 [facility] Rho (d) Immune 2022-10-23 Completed University of Globulin 00:00:00 [facility] TDAP 2022-10-23 Completed University of 00:00:00 [facility] Rho (d) Immune 2022-10-23 Completed University of Globulin 00:00:00 [facility] TDAP 2022-10-23 Completed University of 00:00:00 [facility] Rho (d) Immune 2022-10-23 Completed University of Globulin 00:00:00 [facility] TDAP 2022-10-23 Completed University of 00:00:00 [facility] Rho (d) Immune 2022-10-23 Completed University of Globulin 00:00:00 [facility] TDAP 2022-10-23 Completed University of 00:00:00 [facility] Rho (d) Immune 2022-10-23 Completed University of Globulin 00:00:00 [facility] TDAP 2022-10-23 Completed University of 00:00:00 [facility] Rho (d) Immune 2022-10-23 Completed University of Globulin 00:00:00 [facility] TDAP 2022-10-23 Completed University of 00:00:00 [facility] Rho (d) Immune 2022-10-23 Completed University of Globulin 00:00:00 [facility] TDAP 2022-10-23 Completed University of 00:00:00 [facility] Rho (d) Immune 2022-10-23 Completed University of Globulin 00:00:00 [facility] TDAP 2022-10-23 Completed University of 00:00:00 [facility] Rho (d) Immune 2022-10-23 Completed University of Globulin 00:00:00 [facility] TDAP 2022-10-23 Completed University of 00:00:00 [facility] Rho (d) Immune 2022-10-23 Completed University of Globulin 00:00:00 [facility] TDAP 2022-10-23 Completed University of 00:00:00 [facility] Rho (d) Immune 2022-10-23 Completed University of Globulin 00:00:00 [facility] TDAP 2022-10-23 Completed University of 00:00:00 [facility] Rho (d) Immune 2022-10-23 Completed University of Globulin 00:00:00 [facility] TDAP 2022-10-23 Completed University of 00:00:00 [facility] Rho (d) Immune 2022-10-23 Completed University of Globulin 00:00:00 [facility] TDAP 2022-10-23 Completed University of 00:00:00 [facility] Rho (d) Immune 2022-10-23 Completed University of Globulin 00:00:00 [facility] TDAP 2022-10-23 Completed University of 00:00:00 [facility] Rho (d) Immune 2022-10-23 Completed University of Globulin 00:00:00 [facility] TDAP 2022-10-23 Completed University of 00:00:00 [facility] Rho (d) Immune 2022-10-23 Completed University of Globulin 00:00:00 [facility] TDAP 2022-10-23 Completed University of 00:00:00 [facility] Rho (d) Immune 2022-10-23 Completed University of Globulin 00:00:00 [facility] TDAP 2022-10-23 Completed University of 00:00:00 [facility] Rho (d) Immune 2022-10-23 Completed University of Globulin 00:00:00 [facility] TDAP 2022-10-23 Completed University of 00:00:00 [facility] Rho (d) Immune 2022-10-23 Completed University of Globulin 00:00:00 [facility] TDAP 2022-10-23 Completed University of 00:00:00 [facility] Rho (d) Immune 2022-10-23 Completed University of Globulin 00:00:00 [facility] TDAP 2022-10-23 Completed University of 00:00:00 [facility] Rho (d) Immune 2022-10-23 Completed University of Globulin 00:00:00 [facility] TDAP 2022-10-23 Completed University of 00:00:00 [facility] Rho (d) Immune 2022-10-23 Completed University of Globulin 00:00:00 [facility] TDAP 2022-10-23 Completed University of 00:00:00 [facility] Rho (d) Immune 2022-10-23 Completed University of Globulin 00:00:00 [facility] TDAP 2022-10-23 Completed University of 00:00:00 [facility] Rho (d) Immune 2022-10-23 Completed University of Globulin 00:00:00 [facility] TDAP 2022-10-23 Completed University of 00:00:00 [facility] Rho (d) Immune 2022-10-23 Completed University of Globulin 00:00:00 [facility] TDAP 2022-10-23 Completed University of 00:00:00 [facility] Rho (d) Immune 2022-10-23 Completed University of Globulin 00:00:00 [facility] TDAP 2022-10-23 Completed University of 00:00:00 [facility] Rho (d) Immune 2022-10-23 Completed University of Globulin 00:00:00 [facility] TDAP 2022-10-23 Completed University of 00:00:00 [facility] Rho (d) Immune 2022-10-23 Completed University of Globulin 00:00:00 [facility] TDAP 2022-10-23 Completed University of 00:00:00 [facility] Rho (d) Immune 2022-10-23 Completed University of Globulin 00:00:00 [facility] TDAP 2022-10-23 Completed University of 00:00:00 [facility] Rho (d) Immune 2022-10-23 Completed University of Globulin 00:00:00 [facility] TDAP 2022-10-23 Completed University of 00:00:00 [facility] Rho (d) Immune 2022-10-23 Completed University of Globulin 00:00:00 [facility] TDAP 2022-10-23 Completed University of 00:00:00 [facility] Rho (d) Immune 2022-10-23 Completed University of Globulin 00:00:00 [facility] TDAP 2022-10-23 Completed University of 00:00:00 [facility] Rho (d) Immune 2022-10-23 Completed University of Globulin 00:00:00 [facility] TDAP 2022-10-23 Completed University of 00:00:00 [facility] Rho (d) Immune 2022-10-23 Completed University of Globulin 00:00:00 [facility] TDAP 2022-10-23 Completed University of 00:00:00 [facility] Rho (d) Immune 2022-10-23 Completed University of Globulin 00:00:00 [facility] SARS-COV-2 COVID-19 2021-02-25 Completed Unive rsity of MODERNA 12+ YRS 00:00:00 [place] [facility] ical VACCINE Branch SARS-COV-2 COVID-19 2021-02-25 Completed Unive rsity of MODERNA 12+ YRS 00:00:00 [place] Med ical VACCINE Branch SARS-COV-2 COVID-19 2021-02-25 Completed Unive rsity of MODERNA 12+ YRS 00:00:00 [place] Med ical VACCINE Branch SARS-COV-2 COVID-19 2021-02-25 Completed Unive rsity of MODERNA 12+ YRS 00:00:00 [place] Med ical VACCINE Branch SARS-COV-2 COVID-19 2021-02-25 Completed Unive rsity of MODERNA 12+ YRS 00:00:00 [place] Med ical VACCINE Branch SARS-COV-2 COVID-19 2021-02-25 Completed Unive rsity of MODERNA 12+ YRS 00:00:00 [place] Med ical VACCINE Branch SARS-COV-2 COVID-19 2021-02-25 Completed Unive rsity of MODERNA 12+ YRS 00:00:00 [place] Med ical VACCINE Branch SARS-COV-2 COVID-19 2021-02-25 Completed Unive rsity of MODERNA 12+ YRS 00:00:00 [place] Med ical VACCINE Branch SARS-COV-2 COVID-19 2021-02-25 Completed Unive rsity of MODERNA 12+ YRS 00:00:00 [place] Med ical VACCINE Branch SARS-COV-2 COVID-19 2021-02-25 Completed Unive rsity of MODERNA VACCINE 00:00:00 [place] [facility] Branch SARS-COV-2 COVID-19 2021-02-25 Completed Unive rsity of MODERNA 12+ YRS 00:00:00 [place] Med ical VACCINE Branch SARS-COV-2 COVID-19 2021-02-25 Completed Unive rsity of MODERNA 12+ YRS 00:00:00 [place] Med ical VACCINE Branch SARS-COV-2 COVID-19 2021-02-25 Completed Unive rsity of MODERNA VACCINE 00:00:00 [place] [facility] Branch SARS-COV-2 COVID-19 2021-02-25 Completed Unive rsity of MODERNA VACCINE 00:00:00 [place] [facility] Branch SARS-COV-2 COVID-19 2021-02-25 Completed Unive rsity of MODERNA VACCINE 00:00:00 [place] [facility] Branch SARS-COV-2 COVID-19 2021-02-25 Completed Unive rsity of MODERNA 12+ YRS 00:00:00 [place] Med ical VACCINE Branch SARS-COV-2 COVID-19 2021-02-25 Completed Unive rsity of MODERNA 12+ YRS 00:00:00 [place] Med ical VACCINE Branch SARS-COV-2 COVID-19 2021-02-25 Completed Unive rsity of MODERNA 12+ YRS 00:00:00 [place] Med ical VACCINE Branch SARS-COV-2 COVID-19 2021-02-25 Completed Unive rsity of MODERNA 12+ YRS 00:00:00 [place] Med ical VACCINE Branch SARS-COV-2 COVID-19 2021-02-25 Completed Unive rsity of MODERNA 12+ YRS 00:00:00 [place] Med ical VACCINE Branch SARS-COV-2 COVID-19 2021-02-25 Completed Unive rsity of MODERNA 12+ YRS 00:00:00 [place] Med ical VACCINE Branch SARS-COV-2 COVID-19 2021-02-25 Completed Unive rsity of MODERNA 12+ YRS 00:00:00 [place] [facility] VACCINE [facility] SARS-COV-2 COVID-19 2021-02-25 Completed Unive rsity of MODERNA 12+ YRS 00:00:00 [place] [facility] VACCINE [facility] SARS-COV-2 COVID-19 2021-02-25 Completed Unive rsity of MODERNA 12+ YRS 00:00:00 [place] [facility] VACCINE [facility] SARS-COV-2 COVID-19 2021-02-25 Completed Unive rsity of MODERNA 12+ YRS 00:00:00 [place] [facility] VACCINE [facility] SARS-COV-2 COVID-19 2021-02-25 Completed Unive rsity of MODERNA 12+ YRS 00:00:00 [place] [facility] VACCINE [facility] SARS-COV-2 COVID-19 2021-02-25 Completed Unive rsity of MODERNA 12+ YRS 00:00:00 [place] [facility] VACCINE [facility] SARS-COV-2 COVID-19 2021-02-25 Completed Unive rsity of MODERNA 12+ YRS 00:00:00 [place] [facility] VACCINE [facility] SARS-COV-2 COVID-19 2021-02-25 Completed Unive rsity of MODERNA 12+ YRS 00:00:00 [place] [facility] VACCINE [facility] SARS-COV-2 COVID-19 2021-02-25 Completed Unive rsity of MODERNA 12+ YRS 00:00:00 [place] [facility] VACCINE [facility] SARS-COV-2 COVID-19 2021-02-25 Completed Unive rsity of MODERNA 12+ YRS 00:00:00 [place] [facility] VACCINE [facility] SARS-COV-2 COVID-19 2021-02-25 Completed Unive rsity of MODERNA 12+ YRS 00:00:00 [place] [facility] VACCINE [facility] SARS-COV-2 COVID-19 2021-02-25 Completed Unive rsity of MODERNA 12+ YRS 00:00:00 [place] [facility] VACCINE [facility] SARS-COV-2 COVID-19 2021-02-25 Completed Unive rsity of MODERNA 12+ YRS 00:00:00 [place] [facility] VACCINE [facility] SARS-COV-2 COVID-19 2021-02-25 Completed Unive rsity of MODERNA 12+ YRS 00:00:00 [place] [facility] VACCINE [facility] SARS-COV-2 COVID-19 2021-02-25 Completed Unive rsity of MODERNA 12+ YRS 00:00:00 [place] [facility] VACCINE [facility] SARS-COV-2 COVID-19 2021-02-25 Completed Unive rsity of MODERNA 12+ YRS 00:00:00 [place] [facility] VACCINE [facility] SARS-COV-2 COVID-19 2021-02-25 Completed Unive rsity of MODERNA 12+ YRS 00:00:00 [place] [facility] VACCINE [facility] SARS-COV-2 COVID-19 2021-02-25 Completed Unive rsity of MODERNA 12+ YRS 00:00:00 [place] [facility] VACCINE [facility] SARS-COV-2 COVID-19 2021-02-25 Completed Unive rsity of MODERNA 12+ YRS 00:00:00 [place] [facility] VACCINE [facility] SARS-COV-2 COVID-19 2021-02-25 Completed Unive rsity of MODERNA 12+ YRS 00:00:00 [place] [facility] VACCINE [facility] SARS-COV-2 COVID-19 2021-02-25 Completed Unive rsity of MODERNA 12+ YRS 00:00:00 [place] [facility] VACCINE [facility] SARS-COV-2 COVID-19 2021-02-25 Completed Unive rsity of MODERNA 12+ YRS 00:00:00 [place] [facility] VACCINE [facility] SARS-COV-2 COVID-19 2021-02-25 Completed Unive rsity of MODERNA 12+ YRS 00:00:00 [place] [facility] VACCINE [facility] SARS-COV-2 COVID-19 2021-02-25 Completed Unive rsity of MODERNA 12+ YRS 00:00:00 [place] [facility] VACCINE [facility] SARS-COV-2 COVID-19 2021-02-25 Completed Unive rsity of MODERNA 12+ YRS 00:00:00 [place] [facility] VACCINE [facility] SARS-COV-2 COVID-19 2021-02-25 Completed Unive rsity of MODERNA 12+ YRS 00:00:00 [place] [facility] VACCINE [facility] SARS-COV-2 COVID-19 2021-02-25 Completed Unive rsity of MODERNA 12+ YRS 00:00:00 [place] [facility] VACCINE [facility] SARS-COV-2 COVID-19 2021-02-25 Completed Unive rsity of MODERNA 12+ YRS 00:00:00 [place] [facility] VACCINE [facility] SARS-COV-2 COVID-19 2021-02-25 Completed Unive rsity of MODERNA 12+ YRS 00:00:00 [place] [facility] VACCINE [facility] SARS-COV-2 COVID-19 2021-02-25 Completed Unive rsity of MODERNA 12+ YRS 00:00:00 [place] [facility] ical VACCINE Branch SARS-COV-2 COVID-19 2021-02-25 Completed Unive rsity of MODERNA 12+ YRS 00:00:00 [facility] ical VACCINE Branch Vital Signs Vital Name Observation Time Observation Value Comments Source Systolic blood 2023-01-11 129 mm[Hg] [facility] pressure 15:18:00 Medical Branch Diastolic blood 2023-01-11 87 mm[Hg] [facility] pressure 15:18:00 Medical Branch Heart rate 2023-01-11 85 /min [facility] 15:18:00 Medical Branch Body temperature 2023-01-11 36.61 [facility] 15:18:00 Medical Branch Respiratory rate 2023-01-11 18 /min [facility] 15:18:00 Medical Branch Body height 2023-01-11 157.5 cm [facility] 15:18:00 Medical Branch Body weight 2023-01-11 80.377 kg [facility] 15:18:00 Medical Branch BMI 2023-01-11 32.41 kg/m2 [facility] 15:18:00 Medical Branch Systolic blood 2022-12-31 130 mm[Hg] [facility] pressure 18:11:00 Medical Branch Diastolic blood 2022-12-31 87 mm[Hg] [place] [facility] pressure 18:11:00 Medical Branch Heart rate 2022-12-31 89 /min [facility] 18:11:00 Medical Branch Body temperature 2022-12-31 36.89 [facility] 18:11:00 Medical Branch Body weight 2022-12-31 80.559 kg [facility] 18:11:00 Medical Branch BMI 2022-12-31 32.48 kg/m2 [facility] 18:11:00 Medical Branch Systolic blood 2022-12-10 131 mm[Hg] pt from [facility] pressure 17:05:00 show Medical Branch Diastolic blood 2022-12-10 92 mm[Hg] pt from [facility] pressure 17:05:00 [facility] Medical Branch Body temperature 2022-12-10 37.11 [facility] 17:04:00 Medical Branch Respiratory rate 2022-12-10 17 /min [facility] 17:04:00 Medical Branch Heart rate 2022-12-10 82 /min [facility] 12:15:00 Medical Branch Oxygen saturation 2022-12-10 100 /min [facility] in Arterial blood 12:15:00 Medical Br anch by Pulse oximetry Body weight 2022-12-09 89.812 kg [facility] 14:19:00 Medical Branch BMI 2022-12-09 36.21 kg/m2 [facility] 14:19:00 Medical Branch Systolic blood 2022-12-08 123 mm[Hg] [facility] pressure 18:30:00 Medical Branch Diastolic blood 2022-12-08 81 mm[Hg] [facility] pressure 18:30:00 Medical Branch Heart rate 2022-12-08 97 /min [facility] 18:30:00 Medical Branch Body temperature 2022-12-08 36.56 [facility] 18:30:00 Medical Branch Respiratory rate 2022-12-08 18 /min [facility] 18:30:00 Medical Branch Body height 2022-12-08 157.5 cm [facility] 18:30:00 Medical Branch Body weight 2022-12-08 89.903 kg [facility] 18:30:00 Medical Branch BMI 2022-12-08 36.25 kg/m2 [facility] 18:30:00 Medical Branch Oxygen saturation 2022-12-08 99 /min [facility] in Arterial blood 18:30:00 Medical Br anch by Pulse oximetry Heart rate 2022-12-03 100 /min [facility] 23:43:00 Medical Branch Oxygen saturation 2022-12-03 98 /min [facility] in Arterial blood 23:43:00 Medical Br anch by Pulse oximetry Systolic blood 2022-12-03 130 mm[Hg] [facility] pressure 23:15:00 Medical Branch Diastolic blood 2022-12-03 87 mm[Hg] [facility] pressure 23:15:00 Medical Branch Body temperature 2022-12-03 36.5 [facility] 23:15:00 Medical Branch Respiratory rate 2022-12-03 18 /min [facility] 23:15:00 Medical Branch Body weight 2022-12-03 90.719 kg [facility] 22:49:00 Medical Branch BMI 2022-12-03 36.58 kg/m2 [facility] 22:49:00 Medical Branch Systolic blood 2022-12-01 122 mm[Hg] [facility] pressure 18:19:00 Medical Branch Diastolic blood 2022-12-01 87 mm[Hg] [facility] pressure 18:19:00 Medical Branch Heart rate 2022-12-01 113 /min [facility] 18:19:00 Medical Branch Body temperature 2022-12-01 37 Mal[facility] 18:19:00 Medical Branch Respiratory rate 2022-12-01 18 /min [facility] 18:19:00 Medical Branch Body height 2022-12-01 157.5 cm [facility] 18:19:00 Medical Branch Body weight 2022-12-01 90.084 kg [facility] 18:19:00 Medical Branch BMI 2022-12-01 36.32 kg/m2 [facility] 18:19:00 Medical Branch Heart rate 2022-11-25 102 /min [facility] 21:00:00 Medical Branch Oxygen saturation 2022-11-25 99 /min [facility] in Arterial blood 21:00:00 Medical Br anch by Pulse oximetry Systolic blood 2022-11-25 113 mm[Hg] [facility] pressure 20:45:00 Medical Branch Diastolic blood 2022-11-25 61 mm[Hg] [facility] [place] pressure 20:45:00 Medical Branch Body temperature 2022-11-25 37 [facility] 20:45:00 Medical Branch Respiratory rate 2022-11-25 18 /min [facility] 20:45:00 Medical Branch Body height 2022-11-25 157.5 cm [facility] 16:04:00 Medical Branch Body weight 2022-11-25 88.451 kg [facility] 16:04:00 Medical Branch BMI 2022-11-25 35.67 kg/m2 [facility] 16:04:00 Medical Branch Heart rate 2022-11-19 96 /min [facility] 18:41:00 Medical Branch Oxygen saturation 2022-11-19 99 /min [facility] in Arterial blood 18:41:00 Medical Br anch by Pulse oximetry Systolic blood 2022-11-19 102 mm[Hg] [facility] pressure 17:40:00 Medical Branch Diastolic blood 2022-11-19 65 mm[Hg] [place] [facility] pressure 17:40:00 Medical Branch Body temperature 2022-11-19 36.89 [facility] 17:40:00 Medical Branch Respiratory rate 2022-11-19 18 /min [facility] 17:40:00 Medical Branch Body height 2022-11-19 157.5 cm [facility] 17:40:00 Medical Branch Body weight 2022-11-19 89.359 kg [facility] 17:40:00 Medical Branch BMI 2022-11-19 36.03 kg/m2 [facility] ex 17:40:00 Medical Branch Systolic blood 2022-11-17 126 mm[Hg] [facility] pressure 18:18:00 Medical Branch Diastolic blood 2022-11-17 84 mm[Hg] [facility] [place] pressure 18:18:00 Medical Branch Heart rate 2022-11-17 94 /min [facility] 18:18:00 Medical Branch Body temperature 2022-11-17 36.5 [facility] 18:18:00 Medical Branch Respiratory rate 2022-11-17 18 /min [facility] 18:18:00 Medical Branch Body height 2022-11-17 157.5 cm [facility] 18:18:00 Medical Branch Body weight 2022-11-17 87.363 kg [facility] 18:18:00 Medical Branch BMI 2022-11-17 35.23 kg/m2 [facility] 18:18:00 Medical Branch Oxygen saturation 2022-11-17 99 /min [facility] in Arterial blood 18:18:00 Medical Br anch by Pulse oximetry Systolic blood 2022-11-03 128 mm[Hg] [facility] pressure 21:16:00 Medical Branch Diastolic blood 2022-11-03 86 mm[Hg] [facility] pressure 21:16:00 Medical Branch Heart rate 2022-11-03 93 /min [facility] 21:16:00 Medical Branch Body temperature 2022-11-03 36.44 [facility] 21:16:00 Medical Branch Respiratory rate 2022-11-03 18 /min [facility] 21:16:00 Medical Branch Body height 2022-11-03 157.5 cm [facility] 21:16:00 Medical Branch Body weight 2022-11-03 88.905 kg [facility] 21:16:00 Medical Branch BMI 2022-11-03 35.85 kg/m2 [facility] 21:16:00 Medical Branch Systolic blood 2022-11-02 120 mm[Hg] [facility] pressure 15:44:00 Medical Branch Diastolic blood 2022-11-02 83 mm[Hg] [place] [facility] pressure 15:44:00 Medical Branch Heart rate 2022-11-02 106 /min [facility] 15:44:00 Medical Branch Body temperature 2022-11-02 36.78 [facility] 15:44:00 Medical Branch Respiratory rate 2022-11-02 18 /min [facility] 15:44:00 Medical Branch Body weight 2022-11-02 88.361 kg [facility] 15:44:00 Medical Branch BMI 2022-11-02 35.63 kg/m2 [facility] 15:44:00 Medical Branch Systolic blood 2022-10-23 130 mm[Hg] [facility] pressure 18:37:00 Medical Branch Diastolic blood 2022-10-23 87 mm[Hg] [facility] pressure 18:37:00 Medical Branch Heart rate 2022-10-23 97 /min [facility] 18:37:00 Medical Branch Body temperature 2022-10-23 36.67 [facility] 18:37:00 Medical Branch Respiratory rate 2022-10-23 18 /min [facility] 18:37:00 Medical Branch Body weight 2022-10-23 88.905 kg [facility] 18:37:00 Medical Branch BMI 2022-10-23 35.85 kg/m2 [facility] 18:37:00 Medical Branch Systolic blood 2022-10-22 124 mm[Hg] [facility] pressure 18:37:00 Medical Branch Diastolic blood 2022-10-22 85 mm[Hg] [facility] pressure 18:37:00 Medical Branch Heart rate 2022-10-22 94 /min [facility] 18:37:00 Medical Branch Body temperature 2022-10-22 36.72 [facility] 18:37:00 Medical Branch Body height 2022-10-22 157.5 cm [facility] 18:37:00 Medical Branch Body weight 2022-10-22 88.089 kg [facility] 18:37:00 Medical Branch BMI 2022-10-22 35.52 kg/m2 [facility] 18:37:00 Medical Branch Heart rate 2022-10-11 101 /min [facility] 19:15:00 Medical Branch Oxygen saturation 2022-10-11 98 /min [facility] in Arterial blood 19:15:00 Medical Br anch by Pulse oximetry Systolic blood 2022-10-11 123 mm[Hg] [facility] pressure 19:00:00 Medical Branch Diastolic blood 2022-10-11 68 mm[Hg] [facility] pressure 19:00:00 Medical Branch Body temperature 2022-10-11 36.44 [facility] 19:00:00 Medical Branch Respiratory rate 2022-10-11 16 /min [facility] 19:00:00 Medical Branch Body height 2022-10-11 157.5 cm [facility] 18:50:00 Medical Branch Body weight 2022-10-11 89.359 kg [facility] ex 18:50:00 Medical Branch BMI 2022-10-11 36.03 kg/m2 [facility] ex 18:50:00 Medical Branch Systolic blood 2022-10-09 131 mm[Hg] [facility] pressure 19:34:00 Medical Branch Diastolic blood 2022-10-09 84 mm[Hg] [facility] pressure 19:34:00 Medical Branch Heart rate 2022-10-09 103 /min [facility] 19:34:00 Medical Branch Body temperature 2022-10-09 36.83 [facility] 19:34:00 Medical Branch Respiratory rate 2022-10-09 18 /min [facility] 19:34:00 Medical Branch Body height 2022-10-09 157.5 cm [facility] 19:34:00 Medical Branch Body weight 2022-10-09 88.089 kg [facility] 19:34:00 Medical Branch BMI 2022-10-09 35.52 kg/m2 [facility] 19:34:00 Medical Branch Systolic blood 2022-09-26 113 mm[Hg] [facility] pressure 03:30:00 Medical Branch Diastolic blood 2022-09-26 71 mm[Hg] [facility] pressure 03:30:00 Medical Branch Heart rate 2022-09-26 80 /min [facility] 03:30:00 Medical Branch Oxygen saturation 2022-09-26 99 /min [facility] in Arterial blood 03:30:00 Medical Br anch by Pulse oximetry Body temperature 2022-09-26 36.5 [facility] 02:20:00 Medical Branch Respiratory rate 2022-09-26 18 /min [facility] 02:20:00 Medical Branch Body height 2022-09-26 157.5 cm [facility] ex 01:57:00 Medical Branch Body weight 2022-09-26 90.22 kg [facility] ex 01:57:00 Medical Branch BMI 2022-09-26 36.38 kg/m2 [facility] ex 01:57:00 Medical Branch Heart rate 2022-09-03 85 /min [facility] ex 04:12:00 Medical Branch Oxygen saturation 2022-09-03 99 /min [facility] in Arterial blood 04:12:00 Medical Br anch by Pulse oximetry Systolic blood 2022-09-03 114 mm[Hg] [facility] pressure 04:00:00 Medical Branch Diastolic blood 2022-09-03 73 mm[Hg] [place] [facility] pressure 04:00:00 Medical Branch Body temperature 2022-09-03 36.33 [facility] 03:47:00 Medical Branch Respiratory rate 2022-09-03 17 /min [facility] 03:47:00 Medical Branch Body height 2022-09-03 157.5 cm [facility] 03:47:00 Medical Branch Body weight 2022-09-03 88.451 kg [facility] 03:47:00 Medical Branch BMI 2022-09-03 35.67 kg/m2 [facility] 03:47:00 Medical Branch Systolic blood 2022-02-09 126 mm[Hg] [facility] pressure 20:41:00 Medical Branch Diastolic blood 2022-02-09 90 mm[Hg] [facility] pressure 20:41:00 Medical Branch Heart rate 2022-02-05 84 /min [facility] 19:35:00 Medical Branch Body temperature 2022-02-05 36.5 [facility] 19:35:00 Medical Branch Respiratory rate 2022-02-05 18 /min [facility] 19:35:00 Medical Branch Body height 2022-02-05 157.5 cm [facility] 19:35:00 Medical Branch Body weight 2022-02-05 83.825 kg [facility] 19:35:00 Medical Branch BMI 2022-02-05 33.80 kg/m2 [facility] 19:35:00 Medical Branch BP Diastolic 2018-11-15 110 mm[Hg] [facility] 00:00:00 [facility] Height 2018-11-15 62 [in_i] [facility] 00:00:00 [facility] BMI (Body Mass 2018-11-15 45.9 kg/m2 [facility] as Index) 00:00:00 [facility] BP Systolic 2018-11-15 161 mm[Hg] [facility] 00:00:00 [facility] Body Weight 2018-11-15 251 [lb_av] [facility] 00:00:00 [facility] BP Diastolic 2018-10-04 71 mm[Hg] [facility] 00:00:00 [facility] Height 2018-10-04 62 [in_i] [facility] 00:00:00 [facility] BMI (Body Mass 2018-10-04 44.6 kg/m2 [facility] as Index) 00:00:00 [facility] BP Systolic 2018-10-04 123 mm[Hg] [facility] 00:00:00 [facility] Body Weight 2018-10-04 244 [lb_av] [facility] 00:00:00 [facility] Body Temperature 2019-06-12 [...] 15:36:00 BMI (Body Mass 2019-06-12 39.3 kg/m2 [facility] th Index) 15:36:00 Weight 2019-06-12 215 [lb_av] [facility] 15:26:00 Respiratory rate 2019-01-29 22 /min [facility] 11:35:00 Procedures Procedure Date / Time Performing Clinician Source Performed POCT URINALYSIS W/O 2023-01-11 15:24:00 [facility] CONSENT FOR 2022-12-31 05:01:00 Doctor Unassigned, No [facility] CONTRACEPTION Name Medical Branch CBC WITH DIFF 2022-12-10 08:59:00 Keven Daniel [facility] HB -MATERNAL 2022-12-10 08:59:00 Keven Daniel [facility] HEMORRHAGE SCREEN [facility] Branch VENOUS CORD GAS 2022-12-10 02:33:00 Keven Daniel [facility] PREPARE PACKED RBC 2022-12-09 22:47:42 Adum, Mirian Greenberg [facility] CENTRAL NEURAXIAL BLOCK 2022-12-09 20:55:00 Juan Carlos Arevalo [facility] CBC WITH DIFF 2022-12-09 18:59:00 Adum, Mirian Dionicio [facility] HEPATITIS B SURFACE 2022-12-09 18:59:00 Adum, Mirian Greenberg [facility] ANTIGEN [facility] HB ABO GROUPING 2022-12-09 18:59:00 Adum, Mirian Greenberg [facility] RHO (D) IMMUNE GLOBULIN 2022-12-09 18:59:00 Keven Daniel [facility] ADC OR MAGALY ONLY - 2022-12-09 18:59:00 [facility]um[facility] HIV 1/2 AG-AB WITH 2022-12-09 18:59:00 Adum, Mirian Greenberg [facility] REFLEX [facility] US PELVIS > 14 2022-12-09 17:09:56 Adum, Mirian Beth [facility] WEEKS [facility] GC & CHLAMYDIA AMPLIFIED 2022-12-09 16:55:00 Adum, Mirian Greenberg [facility] ASSAY [facility] ADC ONLY - FERN TEST 2022-12-09 16:55:00 Adum, Mirian Greenberg [facility] ASSIGNMENT OF BENEFITS 2022-12-09 14:14:55 Doctor Unassigned, No [facility] CONSENT/REFUSAL FOR 2022-12-09 14:14:12 Doctor Unassigned, No [facility] DIAG[facility]IS [facility] TREATMENT [facility] NON-STRESS TEST 2022-12-09 04:01:38 Adum, Mirian Greenberg [facility] CONSENT/REFUSAL FOR 2022-12-03 22:40:05 Doctor Unassigned, No [facility] DIAGNOSIS AND TREATMENT [facility] NON-STRESS TEST 2022-12-01 23:40:44 Adum, Mirian Greenberg [facility] POCT URINALYSIS W/O 2022-12-01 18:21:00 Adum, Mirian Greenberg [facility] SPECIFIC GRAVITY Medical Branch URINALYSIS 2022-11-25 17:55:00 Adum, Mirian Greenberg [place] [facility] POCT GLUCOSE (AUTOMATED) 2022-11-25 17:49:00 Adum, Mirian Greenberg [facility] CONSENT[facility]REFUSAL FOR 2022-11-25 15:45:52 Doctor Unassigned, No [facility] Name Medical Branch ASSIGNMENT OF BENEFITS 2022-11-25 15:43:30 Doctor Unassigned, No [facility] NOTICE OF PRIVACY 2022-11-19 17:08:50 Doctor Unassigned, No [facility] Medical Branch CONSENT/REFUSAL FOR 2022-11-19 17:08:27 Doctor Unassigned, No [facility]REAT[facility] Medical Branch POCT URINALYSIS W/O 2022-11-17 00:00:00 Adum, [facility] SPECIFIC IDABEL Medical Branch ASSIGNMENT OF BENEFITS 2022-11-09 18:26:54 Doctor Unassigned, No [facility] POCT URINALYSIS W/O 2022-11-03 00:00:00 Adum, [facility] SPECIFIC IDABEL Medical Branch EXTERNAL PROVIDER 2022-10-29 05:01:00 Doctor Unassigned, No [facility] Medical Branch 3 HR GLUCOSE TOLERANCE 2022-10-26 16:14:00 Adum, Mirian Jonese [facility] Medical Branch 2 HR GLUCOSE TOLERANCE 2022-10-26 15:18:00 Adum, Mirian Jonese [facility] Medical Branch 1 HR GLUCOSE TOLERANCE 2022-10-26 14:19:00 Adum, Mirian Jonese [facility] Medical Branch GLUCOSE FASTING 2022-10-26 13:16:00 Adum, Mirian Greenberg [place] [facility] GLYCOSYLATED HEMOGLOBIN 2022-10-26 13:16:00 Adum, Mirian Greenberg [facility] Medical Branch 3 HR GLUCOSE TOLERANCE 2022-10-26 13:16:00 Adum, Mirian Jonese [facility] PANEL [facility] TDAP VACCINE, >11 YRS, 2022-10-23 18:48:09 Adum, Mirian Greenberg [facility] IM Medical Branch POCT URINALYSIS W/O 2022-10-22 18:47:00 Adum, Mirian Greenberg [facility] SPECIFIC GRAVITY Medical Branch POCT URINALYSIS W/O 2022-10-12 00:00:00 Adum, Mirian Greenberg [facility] SPECIFIC GRAVITY Medical Branch CONSENT/REFUSAL FOR 2022-10-11 18:25:40 Doctor Unassigned, No [facility] Name Medical Branch AUTHORIZATION FOR 2022-10-09 05:01:00 Doctor Unassigned, No [facility] RELEASE OF [facility] Medical Branch SGOT (ASPARTATE AMINO 2022-09-26 02:29:00 Adum, Mirian Greenberg [facility] TRANSFER) Medical Branch CREATININE 2022-09-26 02:29:00 Adum, Mirian [facility] ALANINE AMINO 2022-09-26 02:29:00 Adum, Mirian Greenberg [facility] TRANSFERASE(SGPT Medical Branch LACTATE DEHYDROGENASE 2022-09-26 02:29:00 Adum, Mirian Greenberg [facility] URIC ACID 2022-09-26 02:29:00 [facility]FF 2022-09-26 02:29:00 Adum, [facility] URINALYSIS 2022-09-26 02:29:00 Adum, Mirian Dionicio [facility] PROTEIN CREAT RATIO 2022-09-26 02:29:00 Adum, Mirian Greenberg [facility] URINE RANDOM Medical Branch CONSENT/REFUSAL FOR 2022-09-26 01:34:01 Doctor Unassigned, No [facility] DIAGNOSIS AND TREATMENT Name Medical Branch ASSIGNMENT OF BENEFITS 2022-09-26 01:33:46 Doctor Unassigned, No [facility] NOTICE OF PRIVACY 2022-09-03 03:15:26 Doctor Unassigned, No [facility] PRACTICES Name Medical Branch CONSENT/REFUSAL FOR 2022-09-03 03:03:10 Doctor Unassigned, No [facility] AND TREATMENT Name Medical [facility] GC & CHLAMYDIA AMPLIFIED 2022-02-05 20:23:00 Fish, Doug Uni versity [facility] TRICHOMONAS AMPLIFIED 2022-02-05 20:23:00 [facility] 2022-02-05 00:00:00 [facility] W/O 2022-02-05 00:00:00 Doug Blancas [facility] SPECIFIC GRAVITY [facility] REFERRAL- 2022-01-22 05:01:00 Doctor Unassigned, No [facility] REQUEST/RESPONSE Name [facility] Plan of Care Planned Activity Planned Date Details Comments Source Future Appointment 2023-10-26 Johan Valle, [address] [place] [address] 00:00:[address] Gastroenterolo gy [address]; , [place] [address] Instructions [facility] Encounters Start End Encounter Admission Attending Care Care Encounter Source Date/Time Date/Time Type Type Clinicians Facility Department ID 2022-12-03 Outpatient X [facility] CONSTANZA [id number] Univers 19:06:52 [facility] 2023-01-26 2023-01-26 Outpatient R ADUM, [facility] [id number] Univers 15:30:00 15:30:00 [facility] 2023-01-11 2023-01-11 Office Slim-Margarita [facility] 1.2.840.114 10 [id number] Univers 10:00:00 10:30:00 Visit Nela shoemaker 350.1.13.10 [facility] 4.2.7.2.686 [place] sho[place] [id number] Tn dical [address] 2023-01-11 2023-01-11 Outpatient R NELA BONE [facility] U TMB [id number] Univers 10:00:00 10:00:00 NELA BONE [facility] 2022-12-31 2022-12-31 Outpatient R ADUM, [facility] [id number] Univers 13:00:00 13:50:06 [facility] 2022-12-31 2022-12-31 Routine Adum, [facility] 1.2.840.114 [id number] Univers 13:00:00 13:50:06 Mirian Greenberg NEO 350.1.13.10 ity of Visit [place] [id number] Tn dical NAL [address] [facility] 2022-12-31 2022-12-31 Orders Doctor ABI 1.2.840.114 [id number] Univers 00:00:00 00:00:00 Only Unassigned, SERAFIN 350.1.13.10 ity of [place] [facility] 4.2.7.2.686 Tj as [id number] [address] 2022-12-25 2022-12-25 Outpatient P [facility] [id number] Univers 14:15:00 14:15:00 ity of [facility] 2022-12-24 2022-12-24 Telephone Adum, [facility] 1.2.502.132 [id number] Univers 00:00:00 00:00:00 Mirian Greenberg NEO 350.1.13.10 ity of [facility] 4.2.7.2.[place] [id number] Tn dical NAL [address] [place] [address] 2022-12-22 2022-12-22 Outpatient R ADUM, [facility] [id number] Univers 13:00:00 13:00:00 MIRIAN ity [facility] 2022-12-15 2022-12-15 Outpatient R ADUM, [facility] [id number] Univers 13:00:00 13:00:00 MIRIAN ity of [facility] 2022-12-14 2022-12-14 1.2.840.1 1.2.840.114 10 [id number] Univers 00:00:00 00:00:00 Encounter [id number] 350.1.13.10 ity of 3.104.2.7 [place] .[id number] 570 [facility] 2022-12-09 2022-12-10 [facility] Keven Daniel [facility] 1.2.840.114 [id number] Univers 09:22:00 12:55:00 Encounter Adum, Mirian LARSON 350.1.13.10 ity of [place] 4.2.7.2.[place] [id number] [place] [address]023 [place] 2022-12-09 2022-12-10 Inpatient X ADUM, [facility] [place] [id number] Univers 09:22:00 12:55:00 MIRIAN ity [facility] 2022-12-09 2022-12-09 Anesthesia [facility] 1.2.840.114 1 [id number] Univers 15:55:00 21:22:00 Event Juan Carlos Pendleton NEO 350.1.13.10 i ty of [place] 4.2.7.2.[place] [id number] [place] 227023 [place] 2022-12-09 2022-12-09 Orders Doctor ABI 1.2.840.114 [id number] Univers 00:00:00 00:00:00 Only Unassigned, SERAFIN 350.1.13.10 ity of [place] [facility] 4.2.7.2.686 Tj as 179.1332201 [facility] 009 [place] 2022-12-09 2022-12-09 Telephone Adum, [facility] 1.2.780.844 [id number] Univers 00:00:00 00:00:00 Mirian LARSON 350.1.13.10 ity of [place] 4.2.7.2.[place] [id number] Tn dical NAL 134 [facility] 2022-12-08 2022-12-08 Outpatient R ADUM, [facility] [id number] Univers 13:00:00 14:06:40 MIRIAN devine [facility] 2022-12-08 2022-12-08 Routine Room, [facility] 1.2.840.1 14 [id number] Univers 13:00:00 14:06:40 Adum, Mirian LARSON 350.1.13.10 ity of Visit [place] 4.2.7.2.[place] [phone] Tn dical NAL 134 [facility] 2022-12-03 2022-12-03 Outpatient X ADUM, [facility] [place] [id number] Univers 18:04:00 19:06:00 MIRIAN ity [facility] 2022-12-03 2022-12-03 Emergency Adum, [facility] 1.2.168.609 [id number] Univers 18:04:00 19:06:00 Mirian Greenberg NEO 350.1.13.10 ity of [place].2.7.2.686 [place] [id number] [facility] 083 Branch 2022-12-02 2022-12-02 Suction Plate Roller Hand 3, [facility] Us Room UNIVERSIT 1 .2.840.114 [id number] Univers 13:00:00 14:00:00 Visit Jamey Yañez 350.1.13.10 ity of CLINICS 4.2.7.2.[place] [id number] [facility] 104 Branch 2022-12-02 2022-12-02 Outpatient P JAMEY YAÑEZ [facility] [id number] Univers 13:00:00 13:00:00 JAMEY YAÑEZ ity [facility] 2022-12-02 2022-12-02 Case [facility] 1.2.840.114 [id number] Univers 00:00:00 00:00:00 Management Timo SANDOVAL 350.1.13.10 ity of W[place].2.[place] [id number] [facility] [address] 2022-12-01 2022-12-01 Outpatient R ADUM, [facility] [id number] Univers 13:00:00 13:53:15 MIRIAN ity [facility] 2022-12-01 2022-12-01 Routine Room, [facility] 1.2.840.1 14 [id number] Univers 13:00:00 13:53:15 Adum, Mirian LARSON 350.1.13.10 ity of Visit [place] 4.2.7.2.[place] [facility] [id number] Tn dical COUNTS INCLUDE 234 BEDS AT [facility] 134 [address] BUILDING 2022-12-01 2022-12-01 Outpatient R ADUM, [facility] [id number] Univers 13:00:00 13:00:00 MIRIAN ity [facility] 2022-11-25 2022-11-25 [facility] [id number] Univers 10:37:00 16:55:00 MIRIAN ity of [facility] 2022-11-25 2022-11-25 Hospital [facility] 1.2.840.114 [id number] Univers 10:37:00 16:55:00 Encounter Mirian LARSON 350.1.13.10 ity of [place] 4.2.7.2.686 [place] [id number] [address] 2022-11-25 2022-11-25 Telephone [facility] 1.2.155.738 [id number] Univers 00:00:00 00:00:00 Mirian LARSON 350.1.13.10 ity of [place] 4.2.[place].2.[place] [id number] Tn dical [address] 2022-11-24 2022-11-24 Outpatient R [facility] [id number] Univers 10:00:00 10:00:00 ity [facility] 2022-11-22 2022-11-22 Nurse ABI Neely 1.2.840.114 [id number] Univers 00:00:00 00:00:00 Triage Abigail Quinn SERAFIN 350.1.13.10 it y of [facility] 4.2.7.2.686 [place]j as [id number] [address] 2022-11-19 2022-11-19 Outpatient X [facility] [place] [id number] Univers 12:21:00 13:45:00 MIRIAN ity [facility] 2022-11-19 2022-11-19 Emergency [facility] 1.2.041.499 [id number] Univers 12:21:00 13:45:00 Mirian LARSON 350.1.13.10 ity of [place] 4.2.[place].2.[place] [id number] [address] 2022-11-17 2022-11-17 Outpatient R [facility] [id number] Univers 13:15:00 13:42:03 MIRIAN itmartha [facility] 2022-11-17 2022-11-17 Routine Adum, [facility] 1.2.840.114 [id number] Univers 13:15:00 13:42:03 Mirian Greenberg ENO 350.1.13.10 ity of Visit [place] 4.2.7.2.686 [place] [id number] Tn dical NAL 134 [facility] 2022-11-09 2022-11-09 Outpatient X ADUM, [facility] [place] [id number] Univers 13:27:57 14:18:09 MIRIAN itmartha [facility] 2022-11-09 2022-11-09 Suction Plate Roller Hand 2, Adc Lab [facility] 1.2.840.114 [id number] Univers 13:30:00 13:45:00 Visit Adum, Mirian Dionicio LARSON 350.1.13.10 ity of [place] 4.2.7.2.[place] [id number] Tn dical NAL 353 [facility] 2022-11-09 2022-11-09 Orders Doctor ABI 1.2.840.114 [id number] Univers 00:00:00 00:00:00 Only Unassigned, SERAFIN 350.1.13.10 ity of [place] [facility] 4.2.7.2.686 Tj as [id number] [address] 2022-11-09 2022-11-09 Telephone Adum, [facility] 1.2.300.272 [id number] Univers 00:00:00 00:00:00 Mirian PRUETTFELISHA 350.1.13.10 ity of [place] 4.2.7.2.[place] 536.4761268 Tn dical NAL 134 [facility] 2022-11-03 2022-11-03 Outpatient R ADUM, [facility] [id number] Univers 16:00:00 16:43:05 MIRIAN devine [facility] 2022-11-03 2022-11-03 Routine Adum, [facility] 1.2.840.114 [id number] Univers 16:00:00 16:43:05 Mirian L [place] 350.1.13.10 ity of Visit [facility] 4.2.7.2.[place] [id number] [address] 2022-11-02 2022-11-02 Outpatient R ADUM, [facility] [id number] Univers 10:00:00 10:41:26 MIRIAN ity of [facility] 2022-11-02 2022-11-02 Nurse Nurse, [facility] 1.2.840.114 [id number] [facility] 10:00:00 10:41:26 Visit Adum, Mirian Greenberg [place] 350.1.13.10 ity of [facility] 4.2.7.2.[place] [id number] [address] 2022-10-29 2022-10-29 Orders Doctor ABI 1.2.840.114 [id number] Univers 00:00:00 00:00:00 Only Unassigned, SERAFIN 350.1.13.10 ity of [place] [facility] 4.2.7.2.686 Tj as [id number] [address] 2022-10-29 2022-10-29 Telephone Ad, [facility] 1.2.789.540 [id number] Univers 00:00:00 00:00:00 Mirian L [place] 350.1.13.10 ity of [place].7.2.[place] [id number] [address] 2022-10-29 2022-10-29 Telephone Ad, [facility] 1.2.172.636 [id number] Univers 00:00:00 00:00:00 Mirian L [place] 350.1.13.10 ity of [place].2.7.2.[place] [id number] [address] 2022-10-28 2022-10-28 Telephone Adum, [facility] 1.2.563.481 [id number] Univers 00:00:00 00:00:00 Mirian L [place] 350.1.13.10 ity of [place] 4.2.7.2.[place] 403.0435476 Tn dical COUNTS INCLUDE 234 BEDS AT THE [facility] 134 [facility] 2022-10-28 2022-10-28 Case Cj [facility] JACEY 1.2.840.114 [id number] Univers 00:00:00 00:00:00 Management Timo SANDOVAL 350.1.13.10 ity of [place] [id number] [address] 2022-10-26 2022-10-26 Suction Plate Roller Hand 2, [facility] Lab [facility] 1.2.840.114 [id number] [facility] 08:15:00 11:25:08 Visit Adum, Mirian LARSON 350.1.13.10 ity of [facility] 4.2.7.2.[place] [id number] [address] 2022-10-26 2022-10-26 [facility] [id number] Univers 08:15:00 08:15:00 MIRIANMIKE devine [facility] 2022-10-26 2022-10-26 Telephone Ad, [facility] 1.2.670.464 [id number] Univers 00:00:00 00:00:00 Mirian Greenberg HEALTH 350.1.13.10 i ty of [place] 4.2.7.2.686 Tj as NIR?BLEA [id number] [address] 2022-10-23 2022-10-23 Nurse Nurse, [facility] Women's Health [facility] 1.2.840.114 [id number] Univers 14:00:00 14:15:00 Visit Adum, Mirian Dionicio NEO 350.1.13.10 ity of [facility] 4.2.7.2.686 [place] [id number] Tn dical COUNTS INCLUDE 234 BEDS AT THE [facility] 134 [facility] 2022-10-23 2022-10-23 Outpatient R ADUM, [facility] [id number] Univers 08:45:00 09:16:08 MIRIAN devine [facility] 2022-10-23 2022-10-23 Suction Plate Roller Hand 2, [facility] Lab [facility] 1.2.840.114 [id number] Univers 08:45:00 09:00:00 Visit Adum, Mirian L [place] 350.1.13.10 ity of [facility] 4.2.7.2.[place] [id number] Tn dical NAL 353 [facility] 2022-10-22 2022-10-22 Outpatient R ADUM, [facility] [id number] Univers 13:45:00 14:35:18 MIRIAN ity of [facility] 2022-10-22 2022-10-22 Routine Adum, [facility] 1.2.840.114 [id number] Univers 13:45:00 14:35:18 Mirian L [place] 350.1.13.10 ity of Visit [place] 4.2.7.2.686 [place]ESS[place] 276.2287740 Tn dical NAL 134 [facility] 2022-10-12 2022-10-12 Telephone Adum, [facility] 1.2.264.747 [id number] Univers 00:00:00 00:00:00 Mirian Greenberg [place] 350.1.13.10 ity of [facility] 4.2.7.2.686 [place] [id number] Tn dical NAL 134 [facility] 2022-10-11 2022-10-11 Outpatient X CORONA-LOPEZ, NELA [facility] O BY [id number] Univers 13:33:00 14:55:00 CORONA-LOPEZ, NELA ity of [facility] 2022-10-11 2022-10-11 Emergency Corona-Margarita [facility] 1.2.840.114 [id number] Univers 13:33:00 14:55:00 s, Nela [place] 350.1.13.10 ity of [facility] 4.2.7.2.[place] [id number] [facility] [address] 2022-10-09 2022-10-09 Outpatient R ADUM, [facility] [id number] Univers 14:00:00 15:41:13 MIRIAN ity of [facility] 2022-10-09 2022-10-09 Initial Adum, [facility] 1.2.840.114 [id number] Univers 14:00:00 15:41:13 Mirian LARSON 350.1.13.10 ity of Visit [place] 4.2.7.2.686 [place] [facility] 343.3740806 Tn dical [address] 2022-10-09 2022-10-09 Orders Doctor ABI 1.2.840.114 [id number] Univers 00:00:00 00:00:00 Only Unassigned, SERAFIN 350.1.13.10 ity of [place] [facility] 4.2.7.2.686 Tj as [id number] [address] 2022-09-25 2022-09-25 Outpatient X ADUM, [facility] [place] [id number] Univers 21:02:00 22:42:00 MIRIAN ity of [facility] 2022-09-25 2022-09-25 Emergency Ad, [facility] 1.2.639.550 [id number] Univers 21:02:00 22:42:00 Mirian LARSON 350.1.13.10 ity of [facility] 4.2.7.2.686 [place] [id number] [address] 2022-09-25 2022-09-25 Orders Doctor ABI 1.2.840.114 [id number] Univers 00:00:00 00:00:00 Only Unassigned, SERAFIN 350.1.13.10 ity of [place] [facility] 4.2.7.2.686 Tj as [id number] [address] 2022-09-02 2022-09-02 Outpatient P KEVEN DANIEL [facility] [place] [id number] Univers 21:12:00 22:20:00 ity of [facility] 2022-09-02 2022-09-02 [facility] Keven Daniel [facility] 1.2.840.114 [id number] Univers 21:12:00 22:20:00 Encounter Raffi LARSON 350.1.13.10 ity of [place] 4.2.7.2.[place] [id number] [address] 2022-08-17 2022-08-17 Outpatient GC_SWHATB[facility] PRIV PRIV [id number] [facility] 00:00:00 00:00:00 [facility] [id number] [facility] 2022-08-14 2022-08-14 Outpatient GC_SWHATBIC PRIV PRIV [id number] [facility] 00:00:00 00:00:00 [facility] [id number] Medica l 2022-08-12 2022-08-12 Outpatient GC_SWHATBIC PRIV PRIV [id number] [facility] 00:00:00 00:00:00 [facility] [id number] Medica l 2022-08-11 2022-08-11 Outpatient GC_SWHATBIC PRIV PRIV [id number] [facility] 00:00:00 00:00:00 [facility] [id number] Medica l 2022-07-04 2022-07-04 Emergency EM Lynda-G [facility] SIA F000 [id number] [facility] 11:10:00 16:53:00 omez, 74 [facility] 2022 2022 Outpatient Abi Peñaloza [facility] LAB F00 [id number] [facility] 12:30:00 12:30:00 79 [facility] 2022-02-27 2022-02-27 Outpatient Abi Peñaloza [facility] F00 [id number] [facility] 12:24:00 12:24:00 85 [facility] 2022-02-12 2022-02-12 Outpatient DOUG MARTI [facility] [id number] [facility] 16:00:00 16:00:00 ity of [facility] 2022-02-12 2022-02-12 Telephone Yonny Doug [facility] .2.840.11 4 [id number] [facility] 00:00:00 00:00:00 JAIME 350.1.13.10 it [place] [id number] [address] 2022-02-10 2022-02-10 Telephone Cj [facility] 1.2.840.11 4 [id number] [facility] 00:00:00 00:00:00 Timo SANDOVAL 350.1.13.10 it [place] 377.1644813 [address] 2022-02-09 2022-02-09 Outpatient R TIMO CORONA [facility] B [id number] Univers 13:30:00 13:50:52 TIMO CORONA itmartha [facility] 2022-02-09 2022-02-09 Outpatient R TIMO CORONA [facility] B [id number] Univers 13:30:00 13:50:52 TIMO CORONA itmartha [facility] 2022-02-09 2022-02-09 [facility]ine [facility] 1.2.840.114 [id number] Univers 13:30:00 13:50:52 Timo SANDOVAL 350.1.13.10 i ty of Visit [place] [id number] [address] 2022-02-09 2022-02-09 Telephone Doug Blancas [facility] 1.2.840.11 4 [id number] Univers 00:00:00 00:00:00 JAIME 350.1.13.10 it y of [facility].7.2.686 [facility] [id number] [address] 2022-02-05 2022-02-05 Outpatient R DOUG BLANCAS [facility] [id number] Univers 14:30:00 15:29:27 ity of [facility] 2022-02-05 2022-02-05 Initial Lloyd Blancasn [facility] 1.2.840.114 [id number] Univers 14:30:00 15:29:27 [place] 350.1.13.10 ity of Visit [facility] 4.2.7.2.686 [place] 553.4152042 Tn dical NAL [address] [place] [address] 2022-02-05 2022-02-05 Letter Doug Blancas [facility] 1.2.840.114 [id number] Univers 00:00:00 00:00:00 (Out) [place] 350.1.13.10 i ty of [facility] 4.2.7.2.[place] 590.0681221 Tn dical NAL [address] [place] [address] 2022-02-04 2022-02-04 Telephone Doug Blancas [facility] 1.2.840.11 4 [id number] Univers 00:00:00 00:00:00 JAIME 350.1.13.10 it y of [place] [id number] [address] 2022-01-22 2022-01-22 Orders Doctor ABI 1.2.840.114 [id number] Univers 00:00:00 00:00:00 Only Unassigned, SERAFIN 350.1.13.10 ity of [place] [facility] 4.2.7.2.686 Tj as 299.8080839 [address] 2021-10-24 2021-10-24 Office Cj [facility] 1.2.840.114 [id number] Univers 11:30:00 12:15:20 Visit Timo JAIME 350.1.13.10 it y of [place] [id number] [address] 2021-10-24 2021-10-24 Outpatient R CJ TIMO [facility] B [id number] Univers 11:30:00 12:15:20 TIMO CORONA [facility] 2021-10-24 2021-10-24 Outpatient R CJ TIMO [facility] B [id number] Univers 11:30:00 11:30:00 TIMO CORONA [facility] 2021-10-24 2021-10-24 Orders Doctor ABI 1.2.840.114 [id number] Univers 00:00:00 00:00:00 Only Unassigned, SERAFIN 350.1.13.10 ity of [place] [facility] 4.2.7.2.686 Tj as [id number] [address] 2019-07-15 2019-07-15 Emergency UCBAMICHAEL BHSSET QER 1201 33110- Yarsanism 01:27:00 01:27:00 , [place] [id number] Hosp ana l ([facility]) 2019-06-12 2019-06-12 Departed TYREL LOFTON [id number] CHRISTU 15:21:00 18:15:[address] [facility] 2018-11-15 2018-11-15 Johan G[place]ZA [place] - [phone] [place] 00:00:00 00:00:00 [facility] [address] Wied, DO: [address] Gastroenter Ga stro[address] [facility], OFFICE gy [address], [place] [address] , Ph. 2018-10-04 2018-10-04 Erica [place] - [phone]- 201 [place] 00:00:00 00:00:00 [facility] [address] FNPC: [address] [place] [address] [facility], [facility] [address], OFFICE [place] [address] , Ph. 2018-04-13 2018-04-13 Outpatient Jr Jeffries SETENT SETENT [id number] [facility] 10:18:00 10:18:00 [facility] 2012-10-10 2012-10-10 Outpatient Edward ESPINOZA [facility] [id number] [facility] 11:00:00 12:25:04 G[facility] Results Test Description Test Time Test Comments Results Result Comments Source POCT URINALYSIS W/O SPECIFIC GRAVITY 2023-01-11 15:24:00 Test Item Value Reference Range Interpretation Comme nts POCT PH U (test code = 3254) 5 mg/dl 5-8 POCT U LEUK EST (test code = 3263) ++ Negative - Negative POCT U NIT (test code = 3262) negative Negative - Negative POCT U PROT (test code = 3259) Trace Negative - Negative POCT U GLU (test code = 3256) Negative Negative - Negative POCT U KETONE (test code = 3258) Negative Negative - Negative POCT U BLD (test code = 3257) Trace Negative - Negative [facility] SPECIFIC [id number] 15:24:00 Test Item Value Reference Range Interpretation Comments POCT PH U (test code = 3254) 5 mg/dl 5-8 POCT U LEUK EST (test code = ++ Negative - Negative 3263) POCT U NIT (test code = 3262) negative Negative - Negative POCT U PROT (test code = 3259) Trace Negative - Negative POCT U GLU (test code = 3256) Negative Negative - Negative POCT U KETONE (test code = 3258) Negative Negative - Negative POCT U BLD (test code = 3257) Trace Negative - Negative [facility] [id number] 12:11:12 Test Item Value Reference Range Interpretation Comments WBC (test code = 14.76 See_Comment H [Automated 6690-2) message] The sy stem which generated this result transmitted reference range : 4.30 - 11.10 10*3/?L. The reference range was not used to interpret this result as normal/abnormal . RBC (test code = 3.34 See_Comment L [Automated 789-8) message] The sy stem which generated this result transmitted reference range : 3.93 - 5.25 10*6/?L. The reference range was not used to interpret this result as normal/abnormal . HGB (test code = 9.0 g/dL 11.6-15.0 L 718-7) HCT (test code = 27.7 % 35.7-45.2 L 4544-3) MCV (test code = 82.9 fL 80.6-95.5 787-2) MCH (test code = 26.9 pg 25.9-32.8 785-6) MCHC (test code = 32.5 g/dL 31.6-35.1 786-4) RDW-SD (test code = 37.9 fL 39.0-49.9 L 71879-2) RDW-CV (test code = 12.5 % 12.0-15.5 788-0) PLT (test code = 212 See_Comment [Automated 777-3) message] The sy stem which generated this result transmitted reference range : 166 - 358 10*3/ ?L. The reference r addy was not used to interpret this result as normal/abnormal . MPV (test code = 13.7 fL 9.5-12.9 H 86000-7) IPF % (test code = 12.4 % 1.3-7.7 H Platelet count [id number]) measured by fluorescence method. NRBC/100 WBC (test 0.0 See_Comment [Automat ed code = 0193059239) message] The system which generated this result transmitted reference range : 0.0 - 10.0 /100 WBCs. The refer ence range was not u sed to interpret th is result as normal/abnormal . NRBC x10^3 (test code See_Comment [Auto mated = 9657335461) message] The s ystem which generated this result transmitted reference range : 10*3/?L. The reference range was not used to interpret this result as normal/abnormal . GRAN MAT (NEUT) % 88.8 % (test code = 770-8) IMM GRAN % (test code 0.50 % = 3235742647) LYMPH % (test code = 5.2 % 736-9) MONO % (test code = 5.4 % 5905-5) EOS % (test code = 0.0 % 713-8) BASO % (test code = 0.1 % 706-2) GRAN MAT x10^3(ANC) 13.10 10*3/uL 1.88-7.09 H (test code = 0891356364) IMM GRAN x10^3 (test 0.08 10*3/uL 0.00-0.06 H code = 4918516041) LYMPH x10^3 (test 0.77 10*3/uL 1.32-3.29 L code = 731-0) MONO x10^3 (test code 0.79 10*3/uL 0.33-0.92 = 742-7) EOS x10^3 (test code 0.03-0.39 L = 711-2) BASO x10^3 (test code 0.01-0.07 = 704-7) Lab Interpretation Abnormal (test code = 43627-3) [facility] [id number] 10:52:00 Test Item Value Reference Range Interpretation Comments SCREEN (test Negative code = 846) RHIG REQUIRED? (test 1 Syringe Patient is a candidate code = 1747) for RhIg- Patie nt is Rh Negative and ba by is Rh Positive. [facility] IMMUNE [id number] 03:51:49 Test Item Value Reference Range Interpretation Comments RHIG CANDIDATE? (test Yes- see A Patien t is a code = 5188) comment candidate for RhIg- Patient i s Rh Negative and baby is Rh Positive.Perfor me d at [facility] Laboratory Services - [facility] Blood [address] [place] [id number] Free: [phone] A No. [id number] Lab Interpretation Abnormal (test code = 55474-7) [facility] AG-AB WITH [id number] 01:30:48 Test Item Value Reference Range Interpretation Comments HIV 0.18 Negative Semi-quantitative (test code = 20737-0) TIM (test code = Non-reactive for HIV-1 TIM) antigen and HIV-1/HIV-2 antibodies. ?No laboratory evidence of HIV infection. ?Repeat in 2-4 weeks if acute HIV infection is suspected. [facility] OR MAGALY ONLY - [id number] 01:11:37 Test Item Value Reference Range Interpretation Comments RPR (Qualitative) (test code = Nonreactive Nonreactive 94133-4) Lab Interpretation (test code = Normal 15850-5) [facility] Surface [id number] 23:04:27 Test Item Value Reference Range Interpretation Comments HBsAg Semi-Quantitative (test code = 0.04 Negative 5195-3) [facility] with [id number] 19:26:49 Test Item Value Reference Range Interpretation Comments WBC (test code = 8.77 See_Comment [Automated 3252-2) message] The sy stem which generated this result transmitted reference range : 4.30 - 11.10 10*3/?L. The reference range was not used to interpret this result as normal/abnormal . RBC (test code = 3.58 See_Comment L [Automated 856-8) message] The sy stem which generated this result transmitted reference range : 3.93 - 5.25 10*6/?L. The reference range was not used to interpret this result as normal/abnormal . HGB (test code = 9.6 g/dL 11.6-15.0 L 718-7) HCT (test code = 29.8 % 35.7-45.2 L 4544-3) MCV (test code = 83.2 fL 80.6-95.5 787-2) MCH (test code = 26.8 pg 25.9-32.8 785-6) MCHC (test code = 32.2 g/dL 31.6-35.1 786-4) RDW-SD (test code = 37.8 fL 39.0-49.9 L 57965-5) RDW-CV (test code = 12.4 % 12.0-15.5 788-0) PLT (test code = 218 See_Comment [Automated 777-3) message] The sy stem which generated this result transmitted reference range : 166 - 358 10*3/ ?L. The reference r addy was not used to interpret this result as normal/abnormal . MPV (test code = 13.0 fL 9.5-12.9 H 40611-0) NRBC/100 WBC (test 0.0 See_Comment [Automat ed code = 7477713658) message] The system which generated this result transmitted reference range : 0.0 - 10.0 /100 WBCs. The refer ence range was not u sed to interpret th is result as normal/abnormal . NRBC x10^3 (test code See_Comment [Auto mated = 6847120983) message] The s ystem which generated this result transmitted reference range : 10*3/?L. The reference range was not used to interpret this result as normal/abnormal . GRAN MAT (NEUT) % 77.2 % (test code = 770-8) IMM GRAN % (test code 0.30 % = 3172950121) LYMPH % (test code = 15.6 % 736-9) MONO % (test code = 6.5 % 5905-5) EOS % (test code = 0.2 % 713-8) BASO % (test code = 0.2 % 706-2) GRAN MAT x10^3(ANC) 6.76 10*3/uL 1.88-7.09 (test code = 6773400566) IMM GRAN x10^3 (test 0.03 10*3/uL 0.00-0.06 code = 4867399089) LYMPH x10^3 (test code 1.37 10*3/uL 1.32-3.29 = 731-0) MONO x10^3 (test code 0.57 10*3/uL 0.33-0.92 = 742-7) EOS x10^3 (test code = 0.03-0.39 L 711-2) BASO x10^3 (test code 0.01-0.07 = 704-7) Lab Interpretation Abnormal (test code = 03138-5) [facility] Screen - ONCE [id number] 19:22:00 Test Item Value Reference Range Interpretation Comments ABO & RH (test code = 20) A Negative IAT (test code = 1185) Positive [facility] URINALYSIS W/O SPECIFIC [id number] 18:21:00 Test Item Value Reference Range Interpretation Comments POCT PH U (test code = na 5-8 3254) POCT U LEUK EST (test na Negative - code = 3263) Negative POCT U NIT (test code na Negative - = 3262) Negative POCT U PROT (test code trace Negative - = 3259) Negative POCT U GLU (test code negative Negative - = 3256) Negative POCT U KETONE (test na Negative - code = 3258) Negative POCT U BLD (test code na Negative - = 3257) Negative TIM (test code = TIM) accurate development and interpretation of all internal controls Lab Interpretation Normal (test code = 09607-7) [facility] GLUCOSE (AUTOMATED)2022-11-25 18:00:27 Test Item Value Reference Range Interpretation Comments POCT GLU (test code = 7547412966) 80 mg/dL 70-110 Lab Interpretation (test code = Normal 46944-2) [facility] URINALYSIS W/O SPECIFIC [id number] 18:17:00 Test Item Value Reference Range Interpretation Comments POCT PH U (test code = 3254) n/a 5-8 POCT U LEUK EST (test code = n/a Negative - Negative 3263) POCT U NIT (test code = 3262) n/a Negative - Negative POCT U PROT (test code = 3259) negative Negative - Negative POCT U GLU (test code = 3256) negative Negative - Negative POCT U KETONE (test code = 3258) n/a Negative - Negative POCT U BLD (test code = 3257) n/a Negative - Negative [facility] W/O SPECIFIC [id number] 05:00:00 Test Item Value Reference Range Interpretation Comments POCT PH U (test code = 3254) NA 5-8 POCT U LEUK EST (test code = 3263) NA Negative - Negative POCT U NIT (test code = 3262) NA Negative - Negative POCT U PROT (test code = 3259) NEG Negative - Negative POCT U GLU (test code = 3256) NEG Negative - Negative POCT U KETONE (test code = 3258) NA Negative - Negative POCT U BLD (test code = 3257) NA Negative - Negative [facility] W/O SPECIFIC [id number] 18:47:00 Test Item Value Reference Range Interpretation Comments POCT PH U (test code = 3254) n/a 5-8 POCT U LEUK EST (test code = n/a Negative - Negative 3263) POCT U NIT (test code = 3262) n/a Negative - Negative POCT U PROT (test code = 3259) negative Negative - Negative POCT U GLU (test code = 3256) normal Negative - Negative POCT U KETONE (test code = 3258) n/a Negative - Negative POCT U BLD (test code = 3257) n/a Negative - Negative [facility] W/O SPECIFIC [id number] 16:02:00 Test Item Value Reference Range Interpretation Comments POCT PH U (test code = 3254) n/a 5-8 POCT U LEUK EST (test code = 3263) n/a Negative - Negative POCT U NIT (test code = 3262) Trace Negative - Negative POCT U PROT (test code = 3259) 50 Negative - Negative POCT U GLU (test code = 3256) n/a Negative - Negative POCT U KETONE (test code = 3258) n/a Negative - Negative POCT U BLD (test code = 3257) n/a Negative - Negative [facility] [id number] 03:12:06 Test Item Value Reference Range Interpretation Comments URIC ACID (test code = 9912318915) 2.6 mg/dL 2.9-6.0 L Lab Interpretation (test code = Abnormal 29417-6) [facility] Amino Transferase (SGPT)2022-09-26 03:12:06 Test Item Value Reference Range Interpretation Comments ALTv (test code = 1742-6) 11 U/L 5-35 Lab Interpretation (test code = Normal 53466-4) [facility] Arlington[facility]actate [id number] 03:12:06 Test Item Value Reference Range Interpretation Comments LDH (test code = 8305133716) 123 U/L 120-246 Lab Interpretation (test code = Normal 47400-4) [facility] (Asparate Amino Transfer)2022-09-26 03:11:46 Test Item Value Reference Range Interpretation Comments AST(SGOT) (test code = 5717423809) 19 U/L 13-40 Lab Interpretation (test code = Normal 03910-9) [facility] [id number] 03:11:45 Test Item Value Reference Range Interpretation Comments CREATININE (test code = 0.35 mg/dL 0.50-1.04 L 0145750559) eGFR (test code = 226.9 mL/min/1.73m2 1645435908) TIM (test code = TIM) Association of Glomerular Filtration Rate (GFR) and Staging of Kidney Disease* + --+ --+ ------+| GFR (mL/min/1.73 m2) ?| With Kidney Damage ?| ?Without Kidney Damage+ --------+ --------+ +| ?>90 ?| ?Stage one ?| ? Normal ?+ ---+ ---+ -------+| ?60-89 ?| ?Stage two ?| ? Decreased GFR ? + --+ --+ ------+| ?30-59 ?| ?Stage three ?| ? Stage three ? + --+ --+ ------+| ?15-29 ?| ?Stage four ? | ? Stage four ?+ ---+ ---+ -------+| ?<15 (or dialysis) ? ?| ?Stage five ? | ? Stage five ?+ ---+ ---+ -------+ *Each stage assumes the associated GFR level has been in effect for at least three months. ?Stages 1 to 5, with or without kidney disease, indicate chronic kidney disease. Notes: Determination of stages one and two (with eGFR >59mL/min/1.73 m2) requires estimation of kidney damage for at least three months as defined by structural or functional abnormalities of the kidney, manifested by either:Pathological abnormalities or Markers of kidney damage (including abnormalities in the composition of the blood or urine or abnormalities in imaging tests). Lab Interpretation Abnormal (test code = 99852-4) [facility] with [id number] 03:09:28 Test Item Value Reference Range Interpretation Comments WBC (test code = 8.71 See_Comment [Automated 3090-2) message] The sy stem which generated this result transmitted reference range : 4.30 - 11.10 10*3/?L. The reference range was not used to interpret this result as normal/abnormal . RBC (test code = 3.70 See_Comment L [Automated 789-8) message] The sy stem which generated this result transmitted reference range : 3.93 - 5.25 10*6/?L. The reference range was not used to interpret this result as normal/abnormal . HGB (test code = 11.1 g/dL 11.6-15.0 L 718-7) HCT (test code = 32.2 % 35.7-45.2 L 4544-3) MCV (test code = 87.0 fL 80.6-95.5 787-2) MCH (test code = 30.0 pg 25.9-32.8 785-6) MCHC (test code = 34.5 g/dL 31.6-35.1 786-4) RDW-SD (test code = 39.4 fL 39.0-49.9 90686-1) RDW-CV (test code = 12.5 % 12.0-15.5 788-0) PLT (test code = 231 See_Comment [Automated 777-3) message] The sy stem which generated this result transmitted reference range : 166 - 358 10*3/ ?L. The reference r addy was not used to interpret this result as normal/abnormal . MPV (test code = 11.8 fL 9.5-12.9 83078-7) NRBC/100 WBC (test 0.0 See_Comment [Automat ed code = 8351166179) message] The system which generated this result transmitted reference range : 0.0 - 10.0 /100 WBCs. The refer ence range was not u sed to interpret th is result as normal/abnormal . NRBC x10^3 (test code See_Comment [Auto mated = 7376366874) message] The s ystem which generated this result transmitted reference range : 10*3/?L. The reference range was not used to interpret this result as normal/abnormal . GRAN MAT (NEUT) % 56.2 % (test code = 770-8) IMM GRAN % (test code 0.20 % = 1460957487) LYMPH % (test code = 34.4 % 736-9) MONO % (test code = 8.0 % 5905-5) EOS % (test code = 0.9 % 713-8) BASO % (test code = 0.3 % 706-2) GRAN MAT x10^3(ANC) 4.88 10*3/uL 1.88-7.09 (test code = 9176426814) IMM GRAN x10^3 (test 0.00-0.06 code = 9653194479) LYMPH x10^3 (test code 3.00 10*3/uL 1.32-3.29 = 731-0) MONO x10^3 (test code 0.70 10*3/uL 0.33-0.92 = 742-7) EOS x10^3 (test code = 0.08 10*3/uL 0.03-0.39 711-2) BASO x10^3 (test code 0.03 10*3/uL 0.01-0.07 = 704-7) Lab Interpretation Abnormal (test code = 37200-0) [facility] [id number] 14:22:00 Test Item Value Reference Range Interpretation Comments THYROID STIMULATING 1.88 0.36-3.74 N Test Per formed in HORMONE (test code = MicroIn ternational Units/mL TSH) HCG [id number] 13:55:00 Test Item Value Reference Range Interpretation Comments HCG SERUM (test 14576 INTERPRETATI ON:VALUES BETWEEN code = HCG) 15-20 milliInte rnational units/mL NEED T O BERETESTED WITHIN 48 HOURS . All units for these ranges ar e in milliInternatio nalunits/mL0-1 WK AFTER CONCEP TION 0-50 1-2 WKS AFTER SABA PTION 40-3002-3 WKS AFTER SABA PTION 100-1,0003-4 WK S AFTER CONCEPTION 500- 6,0001-2 MONTHS AFTER CONCEPTIO N 5,000-200,0002- 3 MONTHS AFTER CONCEPTION 10,0 00-100,0002ND TRIMESTER 3,000 -50,0003RD TRIMESTER 1,000 -50,000 SPECIMENS WITH AN HCG LEVEL FROM 0-6 milliInternatio nalunits/mL SHOULD BE CONSI DERED NEGATIVE COMPREHENSIVE METABOLIC [id number] 13:24:00 Test Item Value Reference Range Interpretation Comments SODIUM (test code = 135 mEq/L 135-145 N NA) POTASSIUM (test code 4.0 mEq/L 3.5-5.0 N = K) CHLORIDE (test code 100 mEq/L 100-115 N = CL) CARBON DIOXIDE (test 25 mEq/L 22-31 N code = CO2) ANION GAP (test code 13.90 10-20 N = GAP) GLUCOSE (test code = 67 mg/dL 65-110 N GLU) BLOOD UREA NITROGEN 8 mg/dL 7-18 N (test code = BUN) GLOMERULAR 141 ml/min >60 N The Glomerular FILTRATION RATE Filtration R ate is a (test code = GFR) calculated parameterbased on serum Creatinine, pat ient age and sex. GFR va luesless than 60 mL/min/ 1.73 square meters a re indicative ofCh ronic Kidney Disease. Values less than 15 mL/min/1.73squa re meters indicate Kidney failure. The calculation for GFR is based on the CK D-EPI (2020) calculat ion. This formulais race indifferent and is the recommended for niranjan for GFRby the Natio nal Kidney Foundati on for Adults.The GFR will not calculate if th e sex is unknown or if thepatient's ag e is <18 years. CREATININE (test 0.4 mg/dL 0.5-1.0 L code = CREAT) TOTAL PROTEIN (test 6.6 gm/dL 6.3-8.2 N code = PROT) ALBUMIN (test code = 3.0 gm/dL 3.4-4.8 L ALB) CALCIUM (test code = 8.9 mg/dL 8.4-10.2 N CA) BILIRUBIN TOTAL 0.3 mg/dL 0.2-1.0 N (test code = BILT) SGOT/AST (test code 17 units/L 15-37 N = AST) SGPT/ALT (test code 18 units/L 12-78 N = ALT) ALKALINE PHOSPHATASE 52 units/L 46-116 N TOTAL (test code = ALKP) UA RFLX MICR CULT IF [id number] 13:14:00 Test Item Value Reference Range Interpretation Comments UA COLOR (test code = YELLOW YELLOW COLU) UA APPEARANCE (test CLOUDY CLEAR A code = APPU) UA GLUCOSE DIPSTICK NEGATIVE NEGATIVE (test code = DGLUU) UA BILIRUBIN DIPSTICK NEGATIVE NEGATIVE (test code = BILU) UA KETONE DIPSTICK NEGATIVE NEGATIVE (test code = KETU) UA SPECIFIC GRAVITY 1.020 1.001-1.035 N (test code = SGU) UA BLOOD DIPSTICK (test 2+ NEGATIVE A code = BRITTNEY) UA PH DIPSTICK (test 8.0 5-9 code = ULYSSES) UA PROTEIN DIPSTICK NEGATIVE NEGATIVE (test code = PROU) UA UROBILINIOGEN 0.2 EU/dL See_Comment [Automated message] DIPSTICK (test code = The sy stem which URO) generated this result transmit josh reference range : <=1.0. The refe rence range was not u sed to interpret th is result as normal/abnormal . UA NITRITE DIPSTICK NEGATIVE NEGATIVE (test code = MICHAEL) UA LEUKOCYTE ESTERASE NEG NEGATIVE DIPSTICK (test code = LEUU) UA WBC (test code = 0-2 #/hpf NONE SEEN WBCU) UA RBC (test code = 0-2 #/hpf NONE SEEN RBCU) UA EPITHELIAL CELLS FEW #/hpf NONE SEEN (test code = EPIU) UA BACTERIA (test code MANY #/hpf NONE SEEN A = BACU) UA AMORPHOUS SEDIMENT FULL FIELD NONE SEEN (test code = AMORU) Indication for culture: Suprapubic PainSpecimen Description: CLEAN CATCHCBC W/AUTO [id number] 13:02:00 Test Item Value Reference Range Interpretation Comments WHITE BLOOD CELL (test code = WBC) 7.3 K/mm3 6.5-12.3 N RED BLOOD CELL (test code = RBC) 4.69 M/mm3 3.51-4.69 N HEMOGLOBIN (test code = HGB) 13.4 g/dL 10.1-13.8 N HEMATOCRIT (test code = HCT) 38.7 % 32.5-41.8 N MEAN CELL VOLUME (test code = MCV) 82.5 fL 84.6-96.6 L MEAN CELL HGB (test code = MCH) 28.6 pg 27.3-33.9 N MEAN CELL HGB CONCETRATION (test 34.6 gm/dL 32.0-34.2 H code = MCHC) RED CELL DISTRIBUTION WIDTH (test 12.7 % 12.2-16.3 N code = RDW) PLATELET COUNT (test code = PLT) 214 K/mm3 134-363 N MEAN PLATELET VOLUME (test code = 11.5 fL 9.2-12.7 N MPV) NEUTROPHIL % (test code = NT%) 64.7 % 57.9-77.3 N LYMPHOCYTE % (test code = LY%) 26.6 % 14.5-29.7 N MONOCYTE % (test code = MO%) 7.0 % 3.6-10.2 N EOSINOPHIL % (test code = EO%) 1.0 % 0.0-3.0 N BASOPHIL % (test code = BA%) 0.4 % 0.1-0.9 N NEUTROPHIL # (test code = NT#) 4.7 K/mm3 LYMPHOCYTE # (test code = LY#) 1.9 K/mm3 MONOCYTE # (test code = MO#) 0.5 K/mm3 EOSINOPHIL # (test code = EO#) 0.07 K/mm3 BASOPHIL # (test code = BA#) 0.0 K/mm3 RBC MORPHOLOGY REQUIRED (test code NORMAL NORMAL = RBCM) PLATELET MORPHOLOGY REQUIRED (test NORMAL NORMAL code = PLTMR) - US PREG UT [id number] 00:00:00 [facility] DOB: 1995 Sex: F Patient Name: DEYSI WOLFE Unit No: [id number] EXAMS: CPT CODE: [id number] US PREG UT TRANSVAGINAL 93275 PROCEDURE INFORMATION: Exam: US First Trimester (Transabdominal), (Transvaginal), and US Duplex Artery or Vein (Ovaries) Limited Exam date and time: 07/04/2022 1:59 PM Age: 27 years old Clinical indication: Abdominal or pelvic symptoms: Cramping/spotting; Lmp or gestational age (in weeks): 13; ; Prior surgery; Surgery date: 1-6 months; Surgery type: D c; Additional info: 13 weeks pelvic pain LABS AND CLINICAL REPORTS: Gestational age (Established): 13 w 3 d Estimated due date (Established): 01/06/2023 TECHNIQUE: Imaging protocol: Real-time transabdominal and transvaginal obstetrical ultrasound of the maternal pelvis and a first trimester , less than 14 weeks 0 days, with image documentation. Transvaginal imaging was used for betterevaluation of the endometrium, adnexa, and/or cervix. Real-time duplex ultrasound scan of the arterial or venous flow of the ovaries with B-mode, color Doppler flow and spectral waveform analysis. Complete obstetrical exam, limited duplex. Duplex exam was performed to evaluate for torsion and other vascular conditions. COMPARISON: No relevant prior studies available. FINDINGS: Gestation: Yolk sac measures 4.3 mm. Embryonic/ heart rate: 157 bpm Extra-embryonic membranes/Placenta: 3.2 x 3.5 x 0.8cm subchorionic hemorrhage along the left anterolateral aspect of the gestational sac. 6.5 x 1.1 x 3.3 cm retroplacental hemorrhage along the lower uterine segment. Amniotic fluid: Amniotic fluid and extra-amniotic fluid s normal for gestational age. BIOMETRY: Gestational age (AUA): 13 w 6 d Estimateddue date (AUA): 01/03/2023 Mean sac diameter: 7.2 cm. EGA (MSD) is 13 w 6 d Dasher-Rump length: 77.7 mm. EGA (CRL) is 13 w 6 d MATERNAL: Uterus: Uterus measures 16.3 cm x 12 cm x 9.3 cm. Cervix: Cervical length measures 3.4 cm and is closed. Right ovary/adnexa: Right ovary measures 1.9 cm x 1.4 cm x 1.7 cm. Right ovarian volume is 2.3 CM3. Left ovary/adnexa: Left ovary measures 3.2 cm x 2.2 cm x 1.1 cm.Left ovarian volume is 3.8 CM3. Intraperitoneal space: No intraperitoneal free fluid. IMPRESSION: [facility] NAME: DEYSI WOLFE Radiology Department PHYS: Rajesh Olea [address] : 1995 AGE: 27 SEX: F [place], [place] [address] : F.ERS PHONE #: [phone] EXAM DATE: 07/04/2022 STATUS: REG ER FAX #: [phone] RAD NO: Page 1 Signed Report (CONTINUED) Patient Name: DEYSI WOLFE Unit No: [id number] EXAMS: CPT CODE: [id number] [facility] TRANSVAGINAL 43061 (Continued) 1. Single live intrauterine gestation corresponding to 13 weeks and 6 days by crown-rump length. 2. heart activity of 157 the the bpm. 3. Low-lying placenta with 6.5 x 1.1 x 3.3 cm retroplacental hemorrhage along the lower uterine segment. 3.2 x 3.5 x 0.8 cm subchorionic hemorrhage along the left anterolateral aspect of the gestational sac. at 1551 Reported and signed by:Bruna Aguilar MD CC: Rajesh Leavitt MD; Abi Peñaloza III, MD Technologist: Jane Bundy RDMS Probe: [id number] Trnscrbd D/ (1551) GCD.CPS Orig Print D/T: S: 07/04/2022 (1552) [facility] NAME: DEYSI WOLFE Radiology Department PHYS: [facility] LyndaMinaRajesh [address] : 1995 AGE: 27 SEX: F [place], [place] [address] LOC: BonnieERS PHONE #: [phone] EXAM DATE: 07/04/2022 STATUS: REG ER FAX #: [phone] RAD NO: Page 2 Signed Report Patient Name: DEYSI WOLFE Unit No: [id number] EXAMS: CPT CODE: [id number] PREG UT TRANSVAGINAL 55500 (Continued) [facility] NAME: DEYSI WOLFE Radiology Department PHYS: NILARA Lucio UriasLynda-MatthewRajesh [address] : 1995 AGE: 27 SEX: F [place], [place] [address] LOC: Jennifer.ERS PHONE #: [phone] EXAM DATE: 07/04/2022STATUS: REG ER FAX #: [phone] RAD NO: Page 3 Signed Report- DUP AB/PEL/SC/[id number] 00:00:00 [facility] : 1995 Sex: F Patient Name: DEYSI WOLFE Unit No: [id number] EXAMS: CPT CODE: [id number] DUP AB/PEL/SC/LTD 41849 PROCEDURE INFORMATION: Exam: US First Trimester (Transabdominal), (Transvaginal), and US Duplex Artery or Vein (Ovaries) Limited Exam date and time: 07/04/2022 1:59 PMAge: 27 years old Clinical indication: Abdominal or pelvic symptoms: Cramping/spotting; Lmp or gestational age (in weeks): 13; ; Prior surgery; Surgery date: 1-6 months; Surgery type: D c; Additional info: 13 weeks pelvic pain LABS AND CLINICAL REPORTS: Gestational age (Established): 13 w 3 d Estimated due date (Established): 01/06/2023 TECHNIQUE: Imaging protocol: Real-time transabdominal and transvaginal obstetrical ultrasound of the maternal pelvis and a first trimester ,less than 14 weeks 0 days, with image documentation. Transvaginal imaging was used for better evaluation of the endometrium, adnexa, and/or cervix. Real-time duplex ultrasound scan of the arterial or venous flow of the ovaries with B-mode, color Doppler flow and spectral waveform analysis. Complete obstetrical exam, limited duplex. Duplex exam was performed to evaluate for torsion and other vascular conditions. COMPARISON: No relevant prior studies available. FINDINGS: Gestation: Yolk sac measures 4.3 mm. Embryonic/ heart rate: 157 bpm Extra-embryonic membranes/Placenta: 3.2 x 3.5 x 0.8 cm subc horionic hemorrhage along the left anterolateral aspect of the gestational sac. 6.5 x 1.1 x 3.3 cm retroplacental hemorrhage along the lower uterine segment. Amniotic fluid: Amniotic fluid and extra-amniotic fluid s normal for gestational age. BIOMETRY: Gestational age (AUA): 13 w 6 d Estimated due date (AUA): 01/03/2023 Mean sac diameter: 7.2 cm. EGA (MSD) is 13 w 6 d Dasher-Rump length: 77.7 mm. EGA (CRL) is 13 w 6 d MATERNAL: Uterus: Uterus measures 16.3 cm x 12 cm x 9.3 cm. Cervix: Cervical length measures 3.4 cm and is closed. Right ovary/adnexa: Right ovary measures 1.9 cm x 1.4 cm x 1.7 cm. Right ovarian volume is 2.3 CM3. Left ovary/adnexa: Left ovary measures 3.2 cm x 2.2 cm x 1.1 cm. Left ovarian volume is 3.8 CM3. Intraperitoneal space: No intraperitoneal free fluid. IMPRESSION: [facility] NAME: DEYSI WOLFE Radiology Department PHYS: THEA LeavittRajesh [address] : 1995 AGE: 27 SEX: F [place], [place] [address] LOC: BonnieERS PHONE #: [phone] EXAM DATE: 07/04/2022 STATUS: REG ER FAX #: [phone] RAD NO: Page 1 Signed Report (CONTINUED) Patient Name: DEYSI WOLFE Unit No: [id number] EXAMS: CPT CODE: [id number] DUP AB/PEL/SC/LTD 71691 (Continued) 1. Single live intrauterine gestation corresponding to13 weeks and 6 days by crown-rump length. 2. heart activity of 157 the the bpm. 3. Low-lying placenta with 6.5 x 1.1 x 3.3 cm retroplacental hemorrhage along the lower uterine segment. 3.2 x 3.5 x 0.8 cm subchorionic hemorrhage along the left anterolateral aspect of the gestational sac. at 1551 Reported and signed by: Bruna Aguilar MD CC: Rajesh Leavitt MD; Abi Peñaloza III, MD Technologist: Jane Bundy RDMS Probe: Trnscrbd D/ (1551) GCD.CPS Orig Print D/T: S: 07/04/2022 (1551) [facility] NAME: DEYSI WOLFE Radiology Department PHYS: THEA LeavittRajesh [address] : 1995 AGE: 27 SEX: F [place] [address] LOC: DEA PHONE #: [phone] EXAM DATE: 07/04/2022 STATUS: REG ER FAX #: [phone] RAD NO: Page 2 Signed Report Patient Name: DEYSI WOLFE Unit No: [id number] EXAMS: CPT CODE: [id number] DUP AB/PEL/SC/LTD 47038 (Continued) [facility] NAME: DEYSI WOLFE Radiology Department PHYS: THEA LeavittRajesh [address] : 1995 AGE: 27 SEX: F [place], [place] [address]ECZL NO: [id number] LOC: DEA PHONE #: [phone] EXAM DATE: 07/04/2022 STATUS: REG ER FAX #: [phone] RAD NO: Page 3 Signed Report- US PREG EVAL 1ST [id number] 00:00:00 [facility] 1995 Sex: F Patient Name: DEYSI WOLFE Unit No: [id number] EXAMS: CPT CODE: [id number] US PREG EVAL 1ST TRIMTR 79923 PROCEDURE INFORMATION: Exam: US First Trimester (Transabdominal), (Transvaginal), and US Duplex Artery or Vein (Ovaries) Limited Exam date and time: 07/04/2022 1:59 PM Age: 27 years old Clinical indication: Abdominal or pelvic symptoms: Cramping/spotting; Lmp or g estational age (in weeks): 13; ; Prior surgery; Surgery date: 1-6 months; Surgery type: D c;Additional info: 13 weeks pelvic pain LABS AND CLINICAL REPORTS: Gestational age (Established): 13 w 3 d Estimated due date (Established): 01/06/2023 TECHNIQUE: Imaging protocol: Real-time transabdominal and transvaginal obstetrical ultrasound of the maternal pelvis and a first trimester , less than 14 weeks 0 days, with image documentation. Transvaginal imaging was used for better evaluation of the endometrium, adnexa, and/or cervix. Real-time duplex ultrasound scan of the arterial or venous flow of the ovaries with B-mode, color Doppler flow and spectral waveform analysis. Complete obstetrical exam, limited duplex. Duplex exam was performed to evaluate for torsion and other vascular conditions. COMPARISON: No relevant prior studies available. FINDINGS: Gestation: Yolk sac measures 4.3 mm. Embryonic/ heart rate: 157 bpm Extra-embryonic membranes/Placenta: 3.2 x 3.5 x 0.8 cm subchorionic hemorrhage along the left anterolateral aspect of the gestational sac. 6.5 x 1.1 x 3.3 cm retroplacental hemorrhage along the lower uterine segment. Amniotic fluid: Amniotic fluid and extra-amniotic fluid s normal for gestational age. BIOMETRY: Gestational age (AUA): 13 w 6 d Estimateddue date (AUA): 01/03/2023 Mean sac diameter: 7.2 cm. EGA (MSD) is 13 w 6 d Dasher-Rump length: 77.7 mm. EGA (CRL) is 13 w 6 d MATERNAL: Uterus: Uterus measures 16.3 cm x 12 cm x 9.3 cm. Cervix: Cervical length measures 3.4 cm and is closed. Right ovary/adnexa: Right ovary measures 1.9 cm x 1.4 cm x 1.7 cm. Right ovarian volume is 2.3 CM3. Left ovary/adnexa: Left ovary measures 3.2 cm x 2.2 cm x 1.1 cm.Left ovarian volume is 3.8 CM3. Intraperitoneal space: No intraperitoneal free fluid. IMPRESSION: [facility] NAME: DEYSI WOLFE Radiology Department PHYS: Rajesh Ole[address] : 1995 AGE: 27 SEX: F [place], [place] [address] LOC: DEA PHONE #: [phone] EXAM DATE: 07/04/2022 STATUS: REG ER FAX #: [phone] RAD NO: Page 1 Signed Report (CONTINUED) Patient Name: DEYSI WOLFE Unit No: [id number] EXAMS: CPT CODE: [id number] US PREG EVAL 1ST TRIMTR 49483 (Continued) 1. Single live intrauterine gestation laura esponding to 13 weeks and 6 days by crown-rump length. 2. heart activity of 157 the the bpm. 3. Low-lying placenta with 6.5 x 1.1 x 3.3 cm retroplacental hemorrhage along the lower uterine segment. 3.2 x 3.5 x 0.8 cm subchorionic hemorrhage along the left anterolateral aspect of the gestational sac. at 1551 Reported and signed by:Bruna Aguilar MD CC: Rajesh Leavitt MD; Abi Peñaloza III, MD Technologist: Jane Bundy RDMS Probe: Trnscrbd D/ (1551) GCD.CPS Orig Print D/T: S: 07/04/2022 (1551) [facility] NAME: DEYSI WOLFE Radiology Department PHYS: Rajesh [address] : 1995 AGE: 27 SEX: F [place] [address] LOC: BonnieERS PHONE #: [phone] EXAM DATE: 07/04/2022 STATUS: REG ER FAX #: [phone] RAD NO: Page 2 Signed Report Patient Name: DEYSI WOLFE Unit No: [id number] EXAMS: CPT CODE: [id number] PREGEVAL 1ST TRIMTR 41286 (Continued) [facility] NAME: DEYSI WOLFE Radiology Department PHYS: Rajesh Ole[address] : 1995 AGE: 27 SEX: F [place] [address] LOC: BonnieERS PHONE #: [phone] EXAM DATE: 07/04/2022 STATUS: REG ER FAX #: [phone] RAD NO: Page 3 Signed Report [id number] 14:46:00 Test Item Value Reference Range Interpretation Comments SURGICAL (test code = SR) R UN DATE: 03/03/22 [facility] PAGE 1 RUN TIME: 1446 Specimen Inquiry RUN USER: INTERFACE P ATIENT: DEYSI WOLFE LOC: REYNA U #: [id number] AGE/SX: 26/F ROOM: RE02/27/22REG DR: Abi Peñaloza III, MD : [birth year] BED: DIS: STATUS: REG REF TLOC: SPEC #: [id number] RECD: 02/27/22 STATUS: SARAHI REQ #: [id number] RONI: 02/27/22-[address]: Abi Peñaloza III, MD ENTERED: 02/27/22 SP TYPE: SURGICAL OTHR : ORDERED: ANATOMIC SPEC, SPEC TRACK, 12392 PROCEDURES: 20546 (02/27/22-1240) TISSUES: A. PRODUCTS OF CONCEPTION - SPONTANEOUS/MISSED [...] 4 cassettes A1-A4.02/27/22 Technical component performed at [employer],[place] [address] [address] , [place] [address] Unless gross only, the diagnosis is based [...] END OF REPORT POCT URINALYSIS W/O SPECIFIC [id number] 19:35:00 Test Item Value Reference Range Interpretation Comments POCT PH U (test code = 3254) n/a 5-8 POCT U LEUK EST (test code = n/a Negative - Negative 3263) POCT U NIT (test code = 3262) n/a Negative - Negative POCT U PROT (test code = 3259) negative Negative - Negative POCT U GLU (test code = 3256) negative Negative - Negative POCT U KETONE (test code = 3258) n/a Negative - Negative POCT U BLD (test code = 3257) n/a Negative - Negative [facility] [id number] 19:34:00 Test Item Value Reference Range Interpretation Comments POCT PREG (test code = 1605) Positive On board controls acceptable with C Yes Line (test code = 3574) POCT PREG LOT # (test code = 3575) POCT PREG TEST DATE (test code = 3576) [facility] (KIT)2019-07-15 04:00:00 Test Item Value Reference Range Interpretation Comments HCGQUAL (test code = NEGATIVE NEGATIVE URINE: NEGATIVE = < HCGQUAL) 20 mIU/ML; POSI TIVE= >/= 20 mIU/ML S FARIHA: NEGATIVE = < 10 mIU/ML; POSITIV E= >/= 10 mIU/ML SOURCE (test code = URINE SOURCE) HCG INTERNAL POSITIVE PASS PASS CNTRL (test code = HCGIPC) HCG LOT # (test code = 6546237 UHCGLOT) HCG EXPIRATION DATE 10-16 (test code = UHCGEXP) [id number] 03:58:00 Test Item Value Reference Range Interpretation [...] (test code = MODERATE NONE BACTERIA) Urine protein measurement by automated test strip (mass/volume)2019-06-12 16:35:00 Test Item Value Reference Range Interpretation Comments Urine Protein (test code = 07313-7) 10 mg/dL Negative * [facility] glucose measurement by automated test strip (mass/volume) 2019-06-12 16:35:00 Test Item Value Reference Range Interpretation Comments Urine Glucose (UA) (test code Negative mg/dL Negative * = 59444-7) [facility]rine ketones measurement by automated test strip (mass/volume) 2019-06-12 16:35:00 Test Item Value Reference Range Interpretation Comments Urine Ketones (test code = Trace mg/dL Negative * 61970-3) [facility] erythrocytes count by automated test strip (number/volume) 2019-06-12 16:35:00 Test Item Value Reference Range Interpretation Comments Urine Occult Blood (test code = Negative Negative * 96411-0) [facility]Urine nitrite detection by automated test [id number] 16:35:00 Test Item Value Reference Range Interpretation Comments Urine Nitrite (test code = 08955-3) Negative Negative [facility] total bilirubin measurement by automated test strip (mass/volume)2019-06-12 16:35:00 Test Item Value Reference Range Interpretation Comments Urine Bilirubin (test code = Negative mg/dL Negative 45740-4) [facility]rine urobilinogen measurement by automated test strip (mass/volume)2019-06-12 16:35:00 Test Item Value Reference Range Interpretation Comments Urine Urobilinogen (test code Negative mg/dL 0.0-1.0 = 92042-4) [facility]rine leukocytes count by automated test strip (number/volume) 2019-06-12 16:35:00 Test Item Value Reference Range Interpretation Comments Urine Leukocyte Esterase Negative {Darcie}/uL Negative (test code = 68159-4) [facility] HealthMicroscopic examination of [id number] 16:35:00 Test Item Value Reference Range Interpretation Comments Microscopic Urinalysis (T) (test code = ----- 77453-3) [facility]Urine sediment erythrocyte count by microscopy (number/high power field)2019-06-12 16:35:00 Test Item Value Reference Range Interpretation Comments Urine RBC (test code = 98423-7) 0-2 /[HPF] 0-2 [facility]Urine sediment leukocyte [...] code = None Seen /[HPF] None * 38681-1) [facility]Urine sediment bacteria count by microscopy [...] HealthYeast detection in urine sediment by light [id number] 16:35:00 Test Item Value Reference Range Interpretation Comments Urine Yeast (test code = None Seen /[HPF] None 28531-2) [facility] comment [id number] 16:35:00 Test Item Value Reference Range Interpretation Comments Urinalysis Comment (test * See_Comment [A utomated message] The code = 8262-8) system which generated this result tra nsmitted reference range : *. The reference range was not used to interpr et this result as normal/abnormal . [facility] comment [id number] 16:35:00 Test Item Value Reference Range Interpretation Comments Urine Culture Indicated (test code To follow = 8264-4) [facility] HealthUrinalysis specimen collection [id number] 16:35:00 Test Item Value Reference Range Interpretation Comments Urine Source (test code = 18460-3) URINE [facility] HealthColor of Urine by [id number] 16:35:00 Test Item Value Reference Range Interpretation Comments Urine Color (test code = 27907-3) Yellow Yel-Diane * [facility] HealthUrine clarity rnlsicmskbwir7283-10-73 16:35:00 Test Item Value Reference Range Interpretation Comments Urine Appearance (test code = 82543-6) Clear Clear * [facility] HealthUrine pH measurement by automated test [id number] 16:35:00 Test Item Value Reference Range Interpretation Comments Urine pH (test code = 51321-7) 5.0 5.0-8.0 [facility] HealthSpecific gravity of Urine by Automated test [id number] 16:35:00 Test Item Value Reference Range Interpretation Comments Urine Specific [place] (test code = 1.029 1.005-1.030 73737-2) [facility] HealthSerum or plasma sodium measurement (moles/volume)2019-06-12 [...] Dioxide Level (test code = 23 mmol/L 2027-) [facility] HealthSerum or plasma anion gap determination (moles/volume)2019-06-12 16:25:00 Test Item Value Reference Range Interpretation Comments Anion Gap (test code = 09237-3) 14 8-18 [facility] HealthSerum or plasma urea nitrogen measurement (mass/volume)2019-06-12 16:25:00 Test Item Value Reference Range Interpretation Comments Blood Urea Nitrogen (test code = 10 mg/dL - 3094-0) [facility] HealthSerum or plasma creatinine measurement (mass/volume)2019-06-12 16:25:00 Test Item Value Reference Range Interpretation Comments Creatinine (test code = 2160-0) 0.7 mg/dL 0.6-1.1 [facility] MEXICOUS HealthGFR estimate [id number] 16:25:00 Test Item Value Reference Range Interpretation Comments Estimat Glomerular Filtration Rate 111 90-142 (test code = 27646-1) [facility] HealthSerum or plasma glucose measurement (mass/volume)2019-06-12 16:25:00 Test Item Value Reference Range Interpretation Comments Glucose Level (test code = 2345-7) 127 mg/dL 60-100 [facility] HealthSerum or plasma calcium measurement (mass/volume)2019-06-12 16:25:00 Test Item Value Reference Range Interpretation Comments Calcium Level (test code = 93215-5) 9.5 mg/dL 8.4-10.2 [facility] HealthSerum or plasma [...] HealthAutomated erythrocyte mean corpuscular hemoglobin concentration measurement (mass/jhi4382-64-92 16:25:00 Test Item Value Reference Range Interpretation Comments Mean Corpuscular Hemoglobin Concent 31.6 g/dL 33.0-37.0 (test code = 786-4) [facility] HealthAutomated erythrocyte distribution width [id number] 16:25:00 Test Item Value Reference Range Interpretation Comments Red Cell Distribution Width (test code 12.3 % 10.7-14.5 = 788-0) [facility] HealthAutomated blood platelet count (count/volume)2019-06-12 16:25:00 Test Item Value Reference Range Interpretation Comments Platelet Count (test code = 295 10*3/uL 150-450 777-3) [facility] HealthAutomated blood platelet mean volume wxgtvqknozy2803-90-71 16:25:00 Test Item Value Reference Range Interpretation Comments Mean Platelet Volume (test code = 11.0 5.7-10.7 33768-0) [facility] comment [id number] 16:25:00 Test Item Value Reference Range Interpretation Comments Manual Differential (test code = ----- 8265-1) [facility] HealthManual blood segmented neutrophils/100 cysannrrer5429-70-44 16:25:00 Test Item Value Reference Range Interpretation Comments Neutrophils % (Manual) (test code = 47 % 42-75 769-0) [facility] HealthManual blood band neutrophils form/100 yyflocoujw3145-23-97 16:25:00 Test Item Value Reference Range Interpretation Comments Band Neutrophils % (Manual) (test code 4 % 5-11 = 764-1) [facility] HealthManual blood lymphocytes/100 fvynggjxri5586-61-62 16:25:00 Test Item Value Reference Range Interpretation Comments Lymphocytes % (Manual) (test code = 43 % 21-51 737-7) [facility] HealthManual blood monocytes/100 wyddwxknty8770-76-79 16:25:00 Test Item Value Reference Range Interpretation Comments Monocytes % (Manual) (test code = 4 % 1-9 744-3) [facility] HealthManual blood eosinophil count as percentage of total leukocytes 2019-06-12 16:25:00 Test Item Value Reference Range Interpretation Comments Eosinophils % (Manual) (test code = 1 % 0-7 714-6) [facility] blood basophils/100 eakgmcekrx5339-10-02 16:25:00 Test Item Value Reference Range Interpretation Comments Basophils % (Manual) (test code = 1 % 0-2 707-0) [facility] by light ixalznuaeq9818-47-25 16:25:00 Test Item Value Reference Range Interpretation Comments Platelet Estimate (test code = Adequate 9317-9) [facility] erythrocyte morphology finding tuwfjkudnvsywo9210-76-15 16:25:00 Test Item Value Reference Range Interpretation Comments Red Blood Cell Morphology (test code = Normal 6742-1) [facility] 1 VIEW [id number] 07:15:[address] [address]MFFDUNZOBA IMAGING REPORTPat ient Name: DEYSI WOLFE BDate of Service: 72-13-5655Wzn: 23 Sex: F Order #: 1000 [facility] 1995 [facility] Number: [id number] Record Number: [id number] Hospital Number: [id number] Physician: Marbella THOMAS Physician: JOAQUIN CODY ONE VIEW 12/25/2018HISTORY: Left [...] 7:13 AMLegally authenticated by JOY FRANCO 2018-12-25 07:13:[id number] 02:24:00 Test Item Value Reference Range Interpretation Comments %CKMB (test code = TNP % UNABLE TO %MB) CALCULATE RESUL TS DUE TO CKMB <0. 22 NG/ML. CKMB (test code = <0.22 NG/ML 0.22-2.4 CKMB) CK (test code = 55 U/L 30-135 CK) CKINTERP (test NEGATIVE Negative code = CKINTERP) TROPONIN I - [id number] 02:23:00 Test Item Value Reference Range Interpretation Comments TROP-I (test code <0.012 ng/ml 0.012-0.033 INT ERPRETIVE DATA = TROP-I) A TROPONI N OF LESS THAN 0.034 NG/M L IS CONSIDERED NEGA TIVE A TROPONIN OF 0.0 34 - 0.119 NG/ML IS CONSIDERED REGAN ZONE A TROPONIN =/> 0. 120 NG/ML IS CONSIDERED P OSITIVE [id number] 02:17:00 Test Item Value Reference Range Interpretation Comments LIPASE (test code = LIPA) 84 U/L 23-300 [id number] 02:17:00 Test Item Value Reference Range Interpretation [...] glucose = GLUCOSE) normal <100 MG/ DL- [employer] recommendation* * CALCIUM (test [...] mL/min/1.73m2 mL/min/1.73m2 is considered norm al. D-DIMER, [id number] 02:14:00 Test Item Value Reference Range Interpretation [...] HCGIPC) HCG LOT # (test code = [id number] UHCGLOT) HCG EXPIRATION DATE 05-27-20 (test code = UHCGEXP) [id number] 02:01:00 Test Item Value Reference Range Interpretation [...] 1.000-1.025 UAMICRO (test code = UAMICRO) NO [id number] 01:50:00 Test Item Value Reference Range Interpretation [...] Comprehensive metabolic 2000 panel - Serum or [id number] 00:00:00 Test Item Value Reference Range Interpretation [...] = 160 U/L 58-154 H alkaline phosphatase) [facility] W Auto Differential panel - Blood [...] (test code = manual not ind diff?) [facility] AssociatesPATHOLOGY [id number] 08:19:00 TISSUE CONSULTATION REPORTBAPTIST BROOKE ARMY MEDICAL CENTERDEPARTMENT OF PATHOLOGYP.O[address] [address] ROBBRENDA CORTES M.D.LIZ RIVERA M.D.CHARLES E. BURNS, M.D. ____Patient: DEYSI WOLFE 1995 23 FRoom:Hosp#: [id number] Ordering Physician: ROHITH VALLE Rec.: 08/31/2018Date of Proc.: 08/31/2018Lab No.: [id number] FINAL ANATOMIC DIAGNOSIS:STOMACH, BIOPSY:- CHRONIC INACTIVE GASTRITIS WITH SUPERIMPOSED REACTIVE CHANGE.- NEGATIVE FOR HELICOBACTER FORMS BY JENNIFER STAIN.- NEGATIVE FOR INTESTINAL METAPLASIA BY AB/PAS STAIN.- NEGATIVE FOR DYSPLASIA OR MALIGNANCY.MICROSCOPIC EXAMINATION:Performed; see diagnosis.GROSS APPEARANCE:The specimen is labeled "random gastric biopsy." Submitted informalin are two yellow-leon mucosal fragments measuring 0.5 x 0.3 x0.2 cm in aggregate, ET one block wraps.PATHOLOGIST: Mane Ledesma Electronically Signed: 09/01/[id number] 07:46:00 Test Item Value Reference Range Interpretation [...] glucose = GLUCOSE) normal <100 MG/ DL- [employer] recommendation* * CALCIUM (test [...] GFR) mL/min/1.73m2 mL/min/1.73m2 is considered norm al. [id number] 07:19:00 Test Item Value Reference Range Interpretation [...] 4.6 K/UL 1.2-7.2 = NEUT) ACUTE HEPATITIS [id number] 03:34:00 Test Item Value Reference Range Interpretation [...] sent to reference lab f or confirmation. [id number] 17:52:00 Test Item Value Reference Range Interpretation [...] glucose = GLUCOSE) normal <100 MG/ DL- [employer] recommendation* * CALCIUM (test [...] GFR) mL/min/1.73m2 mL/min/1.73m2 is considered norm al. [id number] 17:52:00 Test Item Value Reference Range Interpretation Comments LIPASE (test code = LIPA) 65 U/L 23-300 [id number] 17:33:00 Test Item Value Reference Range Interpretation [...] 6.1 K/UL 1.2-7.2 = NEUT) CT ABDOMEN/PELVIS [id number] 07:30:[address] [address]PLHLFQNVZL IMAGING REPORTPatient Name: DEYSI WOLFE BDate of Service: 53-50-4223Hiz: 23 Sex: F Order #: [id number] Room: ERSDOB: 1995 X-Ray Number: [id number] Record Number: [id number] Hospital Number: [id number] Physician: KIERA DELA CRUZ Physician: FRANK ASH [...] 7:28 AMLegally authenticated by TORRIE CARRION 2018-08-30 07:28:[id number] 21:58:00 Test Item Value Reference Range Interpretation [...] HCGIPC) HCG LOT # (test code = 9500798 UHCGLOT) HCG EXPIRATION DATE 01-14 (test code = UHCGEXP) [id number] 19:28:00 Test Item Value Reference Range Interpretation Comments LIPASE (test code = LIPA) 48 U/L 23-300 [id number] 19:28:00 Test Item Value Reference Range Interpretation [...] glucose = GLUCOSE) normal <100 MG/ DL- [employer] recommendation* * CALCIUM (test [...] GFR) mL/min/1.73m2 mL/min/1.73m2 is considered norm al. [id number] 19:21:00 Test Item Value Reference Range Interpretation [...] 8.3 K/UL 1.2-7.2 H = NEUT) PATHOLOGY [id number] 09:33:00TISSUE CONSULTATION REPORTBAPTRESOLUTE HEALTH HOSPITALDEPARTMENT OF PATHOLOGYP.O. [address], [place] [address] ROBBRENDA CORTES M.D.LIZ RIVERA M.D.CHARLES E. BURNS, M.D. ____Patient: YANETHKRISTAMartha Ornelas 1995 23 FRoom:Hosp#: [id number] Ordering Physician: JUAN MERAZ Rec.: 08/26/2018Date of Proc.: 08/25/2018Lab No.: [id number] PRE-OPERATIVE DIAGNOSIS:Chronic cholecystitisFINAL ANATOMIC DIAGNOSIS:GALLBLADDER, CHOLECYSTECTOMY: CHRONIC [...] a single cassette.PATHOLOGIST: Roberto Genao Electronically Signed: 08/29/2018ABDOMJENNIFER 2 [id number] 07:15:00BA85 Coleman StreetIAGNOSTIC IMAGING REPORTPatient Name: DEYSI WOLFE BDate of Service: 29-20-9676Yhj: 23 Sex: F Order #: 600 Room: ERSDOB: 1995 X-Ray Number: [id number] Record Number: [id number] Hospital Number: [id number] Physician: Marbella THOMAS Physician: Radha THOMAS 2 views 08/27/2018History: Recent cholecystectomy, severe abdominal pain and vomitingTechnique: AP upright and supine images were obtained.Comparison: CT of 08/20/2018Findings:Cholecystectomy clips are in place.Bowel gas pattern is normal with some stool scattered in the colon. Thereis no free air. Bones and soft tissues are otherwise stable. Left lowpelvic phlebolith is identified.Impression:Within normal limits.The study was performed on an emergent basis and preliminary report faxedto the Emergency Department by the [facility] nearthe time of the exam.Electronically Signed By: Arturo Moore M.D., 08/27/2018 7:12 AMLegally authenticated by JOY FRANCO 2018-08-27 07:12:39B-HCG QUAL (KIT)2018-08-27 [...] HCGIPC) HCG LOT # (test code = 7008703 UHCGLOT) HCG EXPIRATION DATE 01-14 (test code = UHCGEXP) [id number] 05:07:00 Test Item Value Reference Range Interpretation [...] (test code = URMUCOUS) MUCH /LPF NONE [id number] 04:11:00 Test Item Value Reference Range Interpretation [...] K/UL 1.2-7.2 = NEUT) BMP, BASIC METABOLIC [id number] 04:03:00 Test Item Value Reference Range Interpretation Comments SODIUM (test code = 141 MMOL/L 137-145 NA) K+ (test code = 4.1 MMOL/L 3.5-5.1 PLEASE NOTE NEW KSERUM) REFERENCE RANGE (S) IN EFFECT EFFECTIVE - NEW ANALYZER (V ITROS 5600) CHLORIDE (test code 111 MMOL/L 98-107 H = CL) CO2 (test code = 22 MMOL/L 22-30 CO2) BUN (test code = 11 MG/DL 7-17 BUN) CREA (test code = 0.5 MG/DL 0.7-1.2 L CREA) GLUCOSE (test code 112 MG/DL 70-99 H Fasting glucose = GLUCOSE) normal <100 MG/ DL- [employer] [employer] recommendation* * CALCIUM (test code 8.7 MG/DL 8.4-10.2 = CABLOOD) GFR (test code = 166 A GFR of >9 0 GFR) mL/min/1.73m2 mL/min/1.73m2 is considered norm al. LIVER [id number] 04:03:00 Test Item Value Reference Range Interpretation [...] code = ALT) 428 U/L 13-69 H [id number] 04:03:00 Test Item Value Reference Range Interpretation Comments LIPASE (test code = LIPA) 157 U/L 23-300 [id number] 13:45:00 Test Item Value Reference Range Interpretation [...] glucose = GLUCOSE) normal <100 MG/ DL- [employer] recommendation* * CALCIUM (test [...] GFR) mL/min/1.73m2 mL/min/1.73m2 is considered norm al. [id number] 12:43:00 Test Item Value Reference Range Interpretation [...] 1.2-7.2 H = NEUT) US LIMITED ABD [id number] 07:27:[address] [address]OICIEVQHWA IMAGING REPORTPatient Name: DEYSI WOLFE BDate of Service: 17-97-6358Jnx: 23 Sex: F Order #: 600 [facility] 1995 X-[facility] Number: [id number] Record Number: [id number] Hospital Number: [id number] Physician: Marbella THOMAS Physician: Ladarius THOMAS upper quadrant abdominal ultrasound [...] report faxedto the Emergency Department by the [facility] service nearthe time of the exam.Electronically Signed By: Arturo Moore M.D., 08/25/2018 7:25 AMLegally authenticated by JOY FRANCO 2018-08-25 07:25:[id number] 07:14:00 Test Item Value Reference Range Interpretation Comments BLOOD TYPE (test code = TYPE) A Rh Negative ANTIBODY SCREEN (test code = NEGATIVE NEGATIVE SCREEN) [id number] 03:58:00 Test Item Value Reference Range Interpretation Comments LIPASE (test code = LIPA) 57 U/L 23-300 LIVER [id number] 03:58:00 Test Item Value Reference Range Interpretation [...] (test code = ALT) 35 U/L 13-69 [id number] 03:52:00 Test Item Value Reference Range Interpretation [...] 1.000-1.025 UAMICRO (test code = UAMICRO) NO [id number] 03:48:00 Test Item Value Reference Range Interpretation [...] code 6.1 K/UL 1.2-7.2 = NEUT) ISTAT [id number] 03:45:00 Test Item Value Reference Range Interpretation Comments ISTAT HCG (test code <5.0 IU/L A value of less than or = ISHCG) equal to <5 IU/ L is considered NEGA TIVE. A value between 5 IU/L and 25 IU/L is cons idered INDETERMINATE. A value of >25 IU/L is considered POSI TIVE. ISTAT CHEM [id number] 03:25:00 Test Item Value Reference Range Interpretation [...] code = ISTANGAP) 19 MMOL/L CT ABDOMEN/PELVIS [id number] 07:45:[address] [id number] IMAGING REPORTPatient Name: DEYSI WOLFE BDate of Service: [id number]: 23 Sex: F Order #: [id number] Room: ERSDOB: 1995 X-Ray Number: [id number] Record Number: [id number] Hospital Number: [id number] Physician: KYARA HARDINOrdering Physician: RADHA HOLLINS abdomen [...] 7:43 AMLegally authenticated by CHRISTOPH Rodriguez 2018-08-21 07:43:[id number] 22:43:00 Test Item Value Reference Range Interpretation Comments LIPASE (test code = LIPA) 65 U/L 23-300 LIVER [id number] 22:43:00 Test Item Value Reference Range Interpretation [...] ALT) 28 U/L 13-69 BMP, BASIC METABOLIC [id number] 22:43:00 Test Item Value Reference Range Interpretation [...] glucose = GLUCOSE) normal <100 MG/ DL- [employer] recommendation* * CALCIUM (test code 9.3 MG/DL 8.4-10.2 = CABLOOD) GFR (test code = 214 A GFR of >9 0 GFR) mL/min/1.73m2 mL/min/1.73m2 is considered norm al. [id number] 22:07:00 Test Item Value Reference Range Interpretation [...] HCGIPC) HCG LOT # (test code = 0593732 UHCGLOT) HCG EXPIRATION DATE 01-26-20 (test code = UHCGEXP) [id number] 22:03:00 Test Item Value Reference Range Interpretation [...] (test code 5.2 K/UL 1.2-7.2 = NEUT) Notes Date/Time Note Provider Source 2022-07-04 [facility] 12:47:00-00:00 [facility] EMERGENCY PROVIDER REPORT REPORT#:[id number] REPORT STATUS: Signed DATE:07/04/22 TIME: 1247 PATIENT: DEYSI WOLFE UNIT #: [id number] ROOM/BED: AGE: 27 SEX: F PCP PHYS: Abi Peñaloza III, MD SERVICE AUTHOR: Delvin Leavitt MD * ALL edits or amendments must be made on the [employer]/computer document * HPI-General Illness General Initial Greet Date/Time 07/04/22 1204 Presentation Chief Complaint Vaginal bleeding Free Text HPI Notes Free Text HPI Notes 27 years old patient no past medical his tory G2, P0 13 weeks presents complaining of 1 day of brownish discharge and c ramping, no leakage of fluid urinary symptoms or any other complaints. Review of Systems ROS Statements All systems rev neg except as marked. Free Text ROS Notes Free Text ROS Notes CONSTITUTIONAL: Normal; negative for fev er, weight change, fatigue, or aching. HEENT: Eyes normal; negative for, irritation, or visual field defects. Ears normal; Negative for pain . Nose normal; Negative for runny nose, sinus problems , or nosebleeds. Mouth normal; Negative for dent al problems,. Throat normal; Negative for hoarseness, difficulty swallowing, or sore throat. CARDIOVASCULAR: Normal; Negative for chest pain or, high blood pressure, orthopnea, PULMONARY: Normal; Negative for cough, sputum, shortness of breath or wheezing, SKIN: Normal; Negative for rashes. MUSCULOSKELETAL: Normal; Negative for back pain, joint pain. NEUROLOGIC: Normal; Negative for blackouts, head aches, seizures or dizziness. PSYCHIATRIC: Normal; Negative for anxiety, depre ssion, or phobias. ENDOCRINE: Normal; Negative for diabetes, thyroid.HEMATOLOGIC/LYMPHATIC: Normal; Negative for anemia, swollen glands, or blood di sorders. IMMUNOLOGIC: Negative; Negative for steroids, ch emotherapy, or cancer. VASCULAR: Normal; Negative for varicose veins, b lood clots, or leg ulcers. Past Medical History - Adult Stated Complaint 13 WEEKS AND BLEEDING Allergies Coded Allergies: Penicillins (Severe, RASH 07/04/22) Home Medications Reported Medications PNV WITH FE FUMARATE/FA () 1 TAB PO HUNG Y Physical Exam Vital Signs Vital Signs First Documented: Result Date Time Pulse Ox 100 07/04 1118 B/P 145/94 07/04 1118 B/P Mean 111 07/04 1117 O2 Delivery Room air 07/04 1117 Temp 36.8 07/04 1117 Pulse 92 07/04 1117 Resp 18 07/04 1117 Last Documented: Result Date Time Pulse Ox 100 07/04 1118 B/P 145/94 07/04 1118 B/P Mean 111 07/04 1117 O2 Delivery Room air 07/04 1117 Temp 36.8 07/04 1117 Pulse 92 07/04 1117 Resp 18 07/04 1117 Review of Vital Signs Reviewed, Vital signs norm al Basic Physical Exam Basic PE GEN: Well appearing/NAD, EYES: PERRL, conj clear, NECK: Supple, RESP: No resp distress, CV: Reg rate rhythm, ABD: Soft /non-tender, EXT: No gross abnormality, SKIN: No rashes, warm/dry, NEURO: a lert oriented, NEURO: gross movement NL Interpretation Diagnostics Lab Results Interpretation Results Laboratory Tests 07/04/22 1140: [Embedded Image Not Available] Laboratory Tests: 07/04 07/04 07/04 1140 1140 1128 Chemistry Sodium (135 - 145 mEq/L) 135 Potassium (3.5 - 5.0 mEq/L) 4.0 Chloride (100 - 115 mEq/L) 100 Carbon Dioxide (22 - 31 mEq/L) 25 Anion Gap (10 - 20) 13.90 BUN (7 - 18 mg/dL) 8 Creatinine (0.5 - 1.0 mg/dL) 0.4 L Glomerular Filtr Rate (>60 ml/min) 141 Glucose (65 - 110 mg/dL) 67 Calcium (8.4 - 10.2 mg/dL) 8.9 Total Bilirubin (0.2 - 1.0 mg/dL) 0.3 AST (15 - 37 units/L) 17 ALT (12 - 78 units/L) 18 Total Alk Phosphatase (46 - 116 units/L) 52 Total Protein (6.3 - 8.2 gm/dL) 6.6 Albumin (3.4 - 4.8 gm/dL) 3.0 L TSH (0.36 - 3.74) 1.88 Hematology WBC (6.5 - 12.3 K/mm3) 7.3 RBC (3.51 - 4.69 M/mm3) 4.69 Hgb (10.1 - 13.8 g/dL) 13.4 Hct (32.5 - 41.8 %) 38.7 MCV (84.6 - 96.6 fL) 82.5 L MCH (27.3 - 33.9 pg) 28.6 MCHC (32.0 - 34.2 gm/dL) 34.6 H RDW (12.2 - 16.3 %) 12.7 Plt Count (134 - 363 K/mm3) 214 MPV (9.2 - 12.7 fL) 11.5 Neut % (Auto) (57.9 - 77.3 %) 64.7 Lymph % (Auto) (14.5 - 29.7 %) 26.6 Lawrence % (Auto) (3.6 - 10.2 %) 7.0 Eos % (Auto) (0.0 - 3.0 %) 1.0 Baso % (Auto) (0.1 - 0.9 %) 0.4 Neut # (Auto) (K/mm3) 4.7 Lymph # (Auto) (K/mm3) 1.9 Lawrence # (Auto) (K/mm3) 0.5 Eos # (Auto) (K/mm3) 0.07 Baso # (Auto) (K/mm3) 0.0 Miscellaneous Maternal Serum HCG 53131 Urines Urine Color (YELLOW) YELLOW Urine Appearance (CLEAR) CLOUDY H Urine pH (5 - 9) 8.0 Ur Specific [place] (1.001 - 1.035) 1.020 Urine Protein (NEGATIVE) NEGATIVE Urine Glucose (UA) (NEGATIVE) NEGATIVE Urine Ketones (NEGATIVE) NEGATIVE Urine Blood (NEGATIVE) 2+ H Urine Nitrite (NEGATIVE) NEGATIVE Urine Bilirubin (NEGATIVE) NEGATIVE Urine Urobilinogen (<=1.0 EU/dL) 0.2 Ur Leukocyte Esterase (NEGATIVE) NEG Urine RBC (NONE SEEN #/hpf) 0-2 Urine WBC (NONE SEEN #/hpf) 0-2 Ur Epithelial Cells (NONE SEEN #/hpf) FEW Amorphous Sediment (NONE SEEN) FULL FIELD Urine Bacteria (NONE SEEN #/hpf) MANY H Recent Impressions: ULTRASOUND - US PREG UT TRANSVAGINAL 07/04 1350 Report Impression - Status: SIGNED Entered: 07/04/2022 1552 IMPRESSION: 1. Single live intrauterine gestation correspond ing to 13 weeks and 6 days by crown-rump length. 2. heart activity of 157 the the bpm. 3. Low-lying placenta with 6.5 x 1.1 x 3.3 cm re troplacental hemorrhage along the lower uterine segment. 3.2 x 3.5 x 0.8 cm subchorionic hemorrhage along the left anterolat eral aspect of the gestational sac. Impression By: Evi Aguilar MD ULTRASOUND - DUP AB/PEL/SC/LTD 07/04 1350 Report Impression - Status: SIGNED Entered: 07/04/20221550 IMPRESSION: 1. Single live intrauterine gestation correspond ing to 13 weeks and 6 days by crown-rump length. 2. heart activity of 157 the the bpm. 3. Low-lying placenta with 6.5 x 1.1 x 3.3 cm re troplacental hemorrhage along the lower uterine segment. 3.2 x 3.5 x 0.8 cm subchorionic hemorrhage along the left anterolat eral aspect of the gestational sac. Impression By: Evi Aguilar MD ULTRASOUND - US PREG EVAL 1ST TRIMTR 07/04 1350 Report Impression - Status: SIGNED Entered: 07/04/20221550 IMPRESSION: 1. Single live intrauterine gestation correspond ing to 13 weeks and 6 days by crown-rump length. 2. heart activity of 157 the the bpm. 3. Low-lying placenta with 6.5 x 1.1 x 3.3 cm re troplacental hemorrhage along the lower uterine segment. 3.2 x 3.5 x 0.8 cm subchorionic hemorrhage along the left anterolat eral aspect of the gestational sac. Impression By: Evi Aguilar MD Patient Discharge Departure Vital Signs/Condition Vital Signs First Documented: Result Date Time Pulse Ox 100 07/04 1118 B/P 145/94 07/04 1118 B/P Mean 111 07/04 1118 O2 Delivery Room air 07/04 111 Temp 36.8 07/04 1117 Pulse 92 07/04 1118 Resp 18 07/04 111 Last Documented: Result Date Time Pulse Ox 100 07/04 1118 B/P 145/94 07/04 1118 B/P Mean 111 07/04 1118 O2 Delivery Room air 07/04 1117 Temp 36.8 07/04 111 Pulse 92 07/04 1117 Resp 18 07/04 1118 All vital signs available at the time of this en try have been reviewed. Condition Stable, Improved Clinical Impression Clinical Impression Primary Impression: Subchorionic bleed Time of Impression 1625 Disposition Decision Discharge )( Discharged to Home Yes )( Time 1625 )( Date 07/04/22 Discharge/Care Plan Patient Instructions Bleeding During Early Pregn beni at 0639 RPT #:[id number] END OF REPORT 2018-09-28 ALYSSA MERAZ 15:17:04-00:00 [place] [address] Patient Name: DEYSI WOLFE Patient#: [id number] Admission Date: 08/30/2018 Discharge Date: 08/31/2018 Age/Gender: 23/F Date of : 1995 HSSV//BED: OBE/291/A Admitting Phys: [facility] KT DISCHARGE SUMMARY DATE OF ADMISSION: 08/30/2018 DATE OF DISCHARGE: 08/31/2018 ADMITTING DIAGNOSES Epigastric left upper quadrant pain with abnorma l liver enzymes, status post laparoscopic cholecystectomy. DISCHARGE DIAGNOSES Gastritis, fatty liver. HOSPITAL COURSE The patient had a laparoscopic cholecyst ectomy 5 days prior to this admission, came to the emergency room complaining of indige stion type symptoms, epigastric pain, nausea, vomiting, reflux. She has been anna ling with this for about 6 months before her laparoscopic cholecystectomy a nd was treating the reflux with [id number]-[id number] medication. Her liver function tests were elevated, but most likely due to fatty liver. She did not have ston es initially to begin with, so I doubt that she had any retained common bile du ct stone. She was admitted. A consult for GI was placed. GI performed an EGD s howing mild grade 1 reflux esophagitis, gastritis, small hiatal hernia, nor mal duodenum. Her white count was normal. On admission, hemoglobin was stable. Her liver function tests were slightly elevated, AST 147, ALT 355, alk giselle phosphatase 135, but still lower than when she had the elevation before surgery. Her total bilirubin was normal. This was all consistent with fatty liver, and no t a retained stone, as she really did not have stones to begin with, I wesley raine. Lipase was normal. Hepatitis studies were negative. Upon discharge, her LFTs were trending down already after the EGD. She was discharged feelin g better and tolerating a diet. To follow up with me in 2 wee ks. To not do any heavy lifting until seen by me. Nacho Meraz MD TT: 09/28/2018 15:17:04 IT/MODL /[id number] Electronically Authenticated by: Nacho Stephens MD on 10/03/2018 06:55 AM CDT Legally authenticated by KT AHMADI 10-03 06:55:57 2018-08-31 JOHAN VALLE 11:47:50-00:00 [place] [address] Patient Name: DEYSI WOLFE Patient#: [id number] Admission Date: 08/30/2018 Date of : 1995 Age/Gender: 23/F SV//BED: [place] [address]/A Admitting Phys: Nacho Meraz MD OPERATIVE NOTE DATE OF SURGERY: 08/31/2018 SURGEON: Johan Valle, DO PROCEDURE Esophagogastroduodenoscopy with biopsy. INDICATION Abdominal pain, dyspepsia. See consultation this date. ANESTHESIA She is ASA 3. Monitored anesthesia care provided . DESCRIPTION OF PROCEDURE After informed consent was obtained, the patient was positioned for the procedure. Video gastroscope was inserted. Examination of t he esophagus demonstrates minimal changes of reflux esophagitis at the GE junction. Retroflexed view in the stomach demonstrates a small hiatal hernia. Stomach distends normally. Mild antral gastritis. Biopsies obtained. Pyloru s: Patent. Duodenal bulb, postbulbar duodenum: Normal, bile stained. Scope was withdrawn. The patient tolerated it well and transferred to recovery in stable and satisfactory condition. IMPRESSION 1. Mild grade 1 reflux esophagitis. 2. Mild gastritis; biopsies obtained. 3. Small hiatal hernia. 4. Normal duodenum. RECOMMENDATIONS At this time observe. Continue with proton pump inhibitor therapy. LFTs are trending down and their elevations are multifact orial as outlined in my consultation. The viral hepatitis panel and MRCP are pending. We will await those results with further recommendations to fo carolyn. Reviewed with patient and mother postprocedure. Understanding is voiced. Johan Valle DO TT: 08/31/2018 11:47:50 CACHIL DEHE/MODL /[id number] cc: Nacho Meraz MD Mason Lyon MD Electronically Authenticated by: Johan Valle D.O. on 08/31/2018 01:28 PM DRUM STRAIGHTENER Legally authenticated by LEONARD PRADO 2018-08-31 0 1:28:58 2018-08-31 JOHAN VALLE BHSSET 03:51:38-00:00 [place] [address] Patient Name: DEYSI WOLFE Patient#: [id number] Admission Date: 08/30/2018 Date of : 1995 Age/Gender: 23/F HSSV/RM/BED: [place] [address]/A Admitting Phys: Nacho Meraz MD CONSULTATION NOTE DATE OF CONSULTATION: 08/30/2018 ATTENDING PHYSICIAN: Nacho Meraz MD REFERRING PHYSICIAN: Mason Lyon MD REQUESTED BY Nacho Meraz MD. REASON FOR CONSULTATION Abdominal pain, abnormal liver enzymes. Five day s post laparoscopic cholecystectomy. HISTORY OF PRESENT ILLNESS The patient is a 23-year-old obese white woman w ith a BMI of greater than 45 who has had multiple ER visits with indigestion-type symptoms and pain in the right upper quadrant. Her reflux symptoms have been on going for over 6 months, and she has been treating them symptomatically with zdgr-jzd-[id number] medications. She had an ultrasound recently, on August 25 , that demonstrated cholecystitis, underwent laparoscopic cholecyste ctomy. Liver enzymes have been somewhat elevated, most likely due to fatty live r and/or somewhat reactive changes after surgery, but patient continues to be symptomatic. Upon further discussion, it appears that she had 2 separate s ymptoms or pains; one in the right upper abdomen and the other one that is mo re consistent with reflux disease. The right upper quadrant symptoms have resolved, but she continues to have epigastric and substernal discomfort. PAST MEDICAL HISTORY Remarkable for obesity, hypertension, Be thyroiditis. PAST SURGICAL HISTORY No previous surgeries. ALLERGIES PENICILLIN. HOME MEDICATIONS/CURRENT MEDICATIONS Reviewed. SOCIAL HISTORY No tobacco, alcohol. Good family support. Mother is with her tonight. FAMILY HISTORY Diabetes, hypertension, heart disease, obesity. REVIEW OF SYSTEMS Outlined above. PHYSICAL EXAM GENERAL: Pleasant woman. No emergent distress. VITAL SIGNS: Stable. HEENT: Sclerae are nonicteric. Oral mucosa witho ut ulceration or lesion. NECK: Supple. Neck veins flat. LUNGS: Relatively clear. Legally authenticated by LEONARD PRADO 2018-08-31 0 1:28:30 CARDIAC: Heart sounds regular. ABDOMEN: Soft. Minimal discomfort, most likely p ostoperative in nature. EXTREMITIES: Without edema. NEUROLOGIC: Nonfocal. Gait not tested. LABORATORY STUDIES August 26 AST 145, ALT 59. Preop on the the y were normal. On the , ALT 428. On the , ALT 599, AST 547. Today, they a re trending down. AST 147, ALT 355. Bilirubin is normal. Alk phos with mini mal elevation. IMPRESSION 1. Abdominal pain, somewhat improved, but contin ues to be symptomatic more from what appeared to be reflux-type symptoms. 2. Abnormal liver enzymes, again multifactorial including fatty liver as demonstrated by imaging studies previously and m ost likely postoperative change that I commonly see the first few days af ter cholecystectomy. PLAN At this time, we will observe. She is scheduled for an MRCP which I suspect will be normal. If that is negative, we will pro ceed with an upper endoscopy, with further recommendations to follow. Reviewed with the patient and Mother regarding the above. They voiced understanding. They are agreeable to proceed, with further recommendations to follow. Johanluh Valle DO TT: 08/31/2018 03:51:38 CACHIL DEHE/MODL /[id number] Electronically Authenticated by: Johan Valle D.O. on 08/31/2018 01:28 PM DRUM STRAIGHTENER Legally authenticated by LEONARD PRADO 2018-08-31 0 1:28:30 2018-08-26 KT [facility] 13:02:51-00:[address] [address] Patient Name: DEYSI WOLFE Patient#: [id number] Admission Date: 08/25/2018 Date of : 1995 Age/Gender: 23/F HSSV/RM/BED: [facility]/A Admitting Phys: Esequiel Galvan MD OPERATIVE NOTE DATE OF SURGERY: 08/25/2018 SURGEON: Nacho Meraz MD BAGGING MACHINE OPERATOR: None. PREOPERATIVE DIAGNOSIS Acute cholecystitis. POSTOPERATIVE DIAGNOSIS Acute cholecystitis. PROCEDURE Laparoscopic cholecystectomy. ANESTHESIA General endotracheal anesthesia. ESTIMATED BLOOD LOSS Minimal. COMPLICATIONS None. SPECIMEN Gallbladder. DISPOSITION PACU. PROCEDURE NOTE After informed consent was obtained, patient was taken to the operating room, placed supine on the operating table. Bilateral lower extremity SCDs were placed and functioning prior to anesthesia induc tion. Once anesthesia was induced, abdomen was prepped and draped in stand katey surgical fashion. Time-out was completed. Preoperative antibiotics were giv en. I obtained pneumoperitoneum through a right upper quadrant 5 mm Optiview trocar. Pneumoperitoneum was obtained. I then placed a 1 2 trocar in the infraumbilical area, another 12 trocar in the epigastric area, and another 5 trocar right upper quadrant lateral to the first one. She was place d in reverse Trendelenburg, right side up. The fundus of the gallbladder was grasped and retracted cephalad over the liver. The gallbladder was acutely infl ally with significant edema but no infection, no gangrene. Infundibulum was gras ped and retracted laterally, inferiorly, exposing triangle of Calot. Blunt di ssection with Kittner and right angle was performed, identifying the critical vi ew. Cystic artery and duct were clipped and transected without any complication. Gallbladder was removed from the gallbladder fossa, obtaining hemostasis odessa g the way, placed in an endobag and retrieved through infraumbilical port site. Right upper quadrant was irrigated. Irrigation fluid was evacuated. I rem rai the pneumoperitoneum, Legally authenticated by KT AHMADI 09-28 02:32:05 removed the ports, and closed the infraumbilical port site with 0 Vicryl UR6 cmfvjh-je-zjhqr stitch. Skin was closed with 4-0 Monocryl, Dermabond. Lap count and instrument count were correct. Transfe rred to recovery, extubated, under stable condition. Nacho Meraz MD TT: 08/26/2018 13:02:51 IT/MODL /[id number] Electronically Authenticated by: Nacho Stephens MD on 09/28/2018 02:32 PM CDT Legally authenticated by KT AHMADI 09-28 02:32:05 2018-08-25 ESEQUIEL GALVAN BHSSET 10:48:53-00:00 [place] [address] Patient Name: DEYSI WOLFE Patient#: [id number] Admission Date: 08/25/2018 Date of : 1995 Age/Gender: 23/F HSSV//BED: [facility]/A Admitting Phys: Esequiel Galvan MD HISTORY AND PHYSICAL HISTORY OF PRESENT ILLNESS The patient is a 23-year-old f emale admitted via the emergency room. She presents with a 2-week history of abdominal pain. She rates the pain as episodic. It is severe at times. She rates the p ain as 8/10. It is in both the epigastric, as well as the right upper and l eft upper quadrant regions. Precipitating factors include alcohol and fatty foods. She presented to the emergency room 4 nights ago with the above sympt oms. She had a CT scan of the abdomen which showed a fatty liver. She was give n symptomatic treatment and told to return to her prior primary care and see a GI physician, as well. She was given dicyclomine and treated for possible u rinary tract infection by her primary care physician. Last night, the pain intensity got worse, and jelena escalante then presented again to the emergency room. An ultrasound of the abdomen has been performed, results are pending. Her LFTs were normal. PAST MEDICAL HISTORY 1. Anxiety disorder. 2. Be hypothyroidism. 3. Fatty liver. 4. Morbid obesity. 5. Recent urinary tract infection. MEDICATIONS 1. Lexapro. 2. Levothyroxine 125. 3. Dicyclomine. 4. Nitrofurantoin. ALLERGIES PENICILLIN. FAMILY HISTORY Noncontributory. SOCIAL HISTORY Occasional alcohol use. Does not smoke. Lives wi th her fiancee. No previous pregnancies. REVIEW OF SYSTEMS GENERAL: No fever, chills, or rigors. No weight loss. CARDIOVASCULAR: Denies chest pain, orthopnea, PN D, ankle edema, or palpitations. RESPIRATORY: Denies dyspnea, wheeze, hemoptysis, or coughing. GI: As per HPI. She has had nausea without any v omiting. No diarrhea or hematochezia. No hematemesis. URINARY TRACT: No dysuria, frequency, hematuria, or nocturia. SKIN: No rashes or itching. SKELETOMOTOR: No joint pains, deformities, or sw elling. CENTRAL NERVOUS SYSTEM: Denies headache, syncope , seizures, loss of consciousness, or focal neurological deficit. PSYCHIATRIC: Has chronic anxiety disorder for wh ich she is taking Lexapro. Denies depression. ENDOCRINE: No thirst, polyuria, or polydipsia. N o heat or cold intolerance. Legally authenticated by COREY IRAHETA 2018--0 1 08:52:29 EYES: No visual changes or blurring. No redness of conjunctivitis. ENT: Denies nasal congestion. No vertigo or tinn itus. No soreness of the throat or hoarseness of the voice. EXAMINATION GENERAL: A young female, obese, lying in bed. At this time, she was not in distress. She had received morphine. VITAL SIGNS: Temperature 98.1, pulse 97, respira tory rate 16, blood pressure 120/80, O2 sats 100% on room air. SKIN: No anemia, cyanosis, jaundice, clubbing, o r dehydration. HEENT: Normocephalic. Pupils were equal. Extraoc ular movements were full. No lid lag or lid retraction. NECK: Supple. Thyroid not enlarged. HEART: Normal first and second heart sounds. No added sounds, murmurs, or rubs. CHEST: Air entry was equal. Breath sounds vesicu lar throughout. ABDOMEN: Tender in the epigastrium, as well as i n the right upper quadrant on palpation. No masses were felt. There was no gua rding. Bowel sounds were normoactive. EXTREMITIES: No pedal edema. Calves were soft an d supple. Pulses were palpable. CENTRAL NERVOUS SYSTEM: Cranial nerves 2-12 were intact bilaterally. Motor power in upper and lower extremities was equal a nd normal bilaterally. INVESTIGATIONS BMP normal. Total protein 7.3, albumin 4.1, bili de los santos 0.2, AST 22, alk phos 60, ALT 28, lipase 65. White blood cell count 11.8, hemoglobin 13.8, platelets 277. test was negative. Urinalysis was sandi r on this occasion. A CT scan of the abdomen done last week, reviewe d. It shows fatty liver. Ultrasound of abdomen done this morning; report is pending. ASSESSMENT A 23-year-old female with epigastric and right u pper quadrant pain, likely: 1. Acute cholecystitis. 2. Morbid obesity. 3. Fatty liver. 4. Be hypothyroidism. 5. Recent urinary tract infection. 6. Anxiety disorder. PLAN 1. Keep n.p.o. 2. IV fluids. 3. IV ceftriaxone and Flagyl. 4. General Surgery consult. 5. IV Pepcid. 6. Further recommendations to follow. Esequiel Galvan MD TT: 08/25/2018 10:48:53 JOSE/ROXANNE /[id number] Electronically Authenticated by: Esequiel Galvan M.D. on 08/26/2018 08:52 AM DRUM STRAIGHTENER Legally authenticated by COREY IRAHETA 2018-08-0 1 08:52:29 2018-08-25 ALYSSA MERAZ 10:10:14-00:00 [address] [place] [address] Patient Name: DEYSI WOLFE Patient#: [id number] Admission Date: 08/25/2018 Date of : 1995 Age/Gender: 23/F HSSV/RM/BED: OBE/258/A Admitting Phys: Esequiel Galvan MD CONSULTATION NOTE DATE OF CONSULTATION: 08/25/2018 ATTENDING PHYSICIAN: Esequiel Galvan MD REFERRING PHYSICIAN: SASCHA TIRADO REASON FOR CONSULTATION Acute cholecystitis. HISTORY OF PRESENT ILLNESS This is a 23-year-old morbidly obese woman, BMI of 45.7, with history of hypertension, obesity, Be thyroiditis. No prior surgeries in the past. She has had right upper quadrant pain, postprand ial in origin, with nausea, vomiting for about 2 weeks. She has come to the emergency room and various emergency rooms before and was told that everyth ing was okay, to go home. She now comes in with an ultrasound significant for no stones, but acute cholecystitis with pericholecystic fluid, thicke alton of the gallbladder wall, and white count slightly elevated at 11.8. PAST MEDICAL HISTORY As above. PAST SURGICAL HISTORY None. ALLERGIES PENICILLIN. SOCIAL HISTORY Negative x3. FAMILY HISTORY Noncontributory. MEDICATIONS None. She is being monitored for her hypertensio n, but no medications have been ordered. PHYSICAL EXAMINATION VITAL SIGNS: Temperature 98.1, heart rate 97, bl ood pressure 118/78, satting 100% room air. GENERAL: Awake, alert, following commands. No ac wiyot distress. CARDIAC: Regular rhythm and rate. Not tachycardi c. LUNGS: Clear to auscultation bilateral. ABDOMEN: Obese, but soft, nondistended. Tender i n the right upper quadrant. She has positive Meredith sign. No organomegalies, masses, or hernias palpated. LABORATORY DATA White count 11.8, hemoglobin 13.8, hematocrit 42 .4, platelets of 277. Electrolytes normal. LFTs normal. test negative. ASSESSMENT AND PLAN A 23-year-old morbidly obese woman with acute ch olecystitis to undergo laparoscopic, possible open cholecystectomy. She understands benefits, Legally authenticated by KT AHMADI 09-28 02:32:13 alternatives, and risks of the procedure, which include but not limited to bleeding, infection, perforation, ileus, obstruc tion, hernia, heart attack, stroke, pulmonary embolism, deep venous thrombosis, , and agrees with the plan. Nacho Meraz MD TT: 08/25/2018 10:10:14 IT/MODL /[id number] Electronically Authenticated by: Nacho Stephens MD on 09/28/2018 02:32 PM CDT Legally authenticated by KT AHMADI 09-28 02:32:13
[2023-01-12] MEDS ORDERED: NA CHLORIDE 0.9% 500 ML ONE (01:40)
[2023-01-12 02:15] LABS: Urine Bacteria None Seen /HPF (<20); Urine Bilirubin NEGATIVE (Negative); Urine Blood Negative (Negative); Urine Clarity Extremely Turbid (Clear); Urine Color Light-Yellow (Yellow); Urine Glucose NEGATIVE (Negative); Urine Mucus Slight /HPF (None Seen); Urine Protein NEGATIVE (Negative); Urine RBC <5 /HPF (None Seen); Urine Urobilinogen Normal (Normal); Urine pH 5.5 (5.0-7.0)
[2023-01-12 02:18] LABS: Absolute Lymphocytes (CBC) 3.4 K/uL (0.7-4.9); Hematocrit 34.8 % (36.0-45.0); Lymphocytes % 58.3 % (15.3-44.8); MPV 8.7 fL (7.6-11.3); RBC Red Blood Cell Count 4.41 M/uL (3.86-4.86)
--- NOTE | 2023-01-12 02:24 | ER ---
Nurse's Notes [facility] Name: Anita Alvarez Age: 27 yrs Sex: Female : 1995 Arrival Date: 01/12/2023 Time: 00:59 Bed 17 Private MD: Diagnosis: Viral gastroenteritis Presentation: 01/12 01:08 Chief complaint: Patient states: "I have been having diarrhea for 2 weeks and bad as6 abdominal pain. I went to [place] today and all they did was blood work and I fell like it's getting worse". Coronavirus screen: At this time, the client does not indicate any symptoms associated with coronavirus-19. Ebola Screen: No symptoms or risks identified at this time. Initial Sepsis Screen: Does the patient meet any 2 criteria? No. Patient's initial sepsis screen is negative. Does the patient have a suspected source of infection? No. Patient's initial sepsis screen is negative. Risk Assessment: Do you want to hurt yourself or someone else? Patient reports no desire to harm self or others. Onset of symptoms was January 08, 2023. 01:08 Method Of Arrival: Ambulatory as6 01:08 Acuity: RAFA 3 as6 Triage Assessment: 01:27 General: Appears comfortable, Behavior is calm, cooperative. Pain: Complains of pain in rv abdomen. Cardiovascular: Capillary refill < 3 seconds. Respiratory: Airway is patent Respiratory effort is even, unlabored. GI: Abdomen is flat, Bowel sounds present X 4 quads. 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 - Social history:: Smoking status: Patient denies any tobacco usage or history of. Screenin:26 [facility] ED Fall Risk Assessment (Adult) History of falling in the last 3 months, rv including since admission No falls in past 3 months (0 pts) Confusion or Disorientation No (0 pts) Intoxicated or Sedated No (0 pts) Impaired Gait No (0 pts) Mobility Assist Device Used No (0 pt) Altered Elimination No (0 pt) Score/Fall Risk Level 0 - 2 = Low Risk Oriented to surroundings, Maintained a safe environment, Educated pt \\T\\ family on fall prevention, incl call for assistance when getting out of bed, Assessed \\T\\ reinforced patient's understanding of fall precautions, Provided non-skid footwear, Hourly rounding (assess needs \\T\\ fall precautionary measures) done, Used ambulatory aids as needed (educated on \\T\\ assisted with), Used gait belt as appropriate. Abuse screen: Denies threats or abuse. Denies injuries from another. Nutritional screening: No deficits noted. Tuberculosis screening: No symptoms or risk factors identified. Vital Signs: 01:08 BP 143 / 109; Pulse 76; Resp 18 S; Temp 97.9(O); Pulse Ox 100% on R/A; Weight 78.47 kg as6 (R); Height 5 ft. 2 in. (R); Pain 8/10; 02:29 BP 126 / 70; Pulse 70; Resp 17; Temp 98; Pulse Ox 99% on R/A; rv 01:08 Body Mass Index 31.64 (78.47 kg, 157.48 cm) as6 01:08 Pain Scale: Adult as6 ED Course: 01:00 Patient arrived in ED. ag3 01:03 Giovany Butterfield MD is Attending Physician. sp3 01:12 Triage completed. as6 01:13 Arm band placed on. as6 01:18 Billy Pineda, TAMMY is Primary Nurse. rv 01:26 Inserted saline lock: 20 gauge in right antecubital area, using aseptic technique. rv Blood collected. 01:27 No provider procedures requiring assistance completed. rv 02:16 US Transvaginal Study (Probe) In Process Unspecified. EDMS 02:28 Patient has correct armband on for positive identification. Bed in low position. Call rv light in reach. Side rails up X 1. Provided Education on: ABD PAIN. 02:28 IV discontinued, intact, bleeding controlled, No redness/swelling at site. Pressure rv dressing applied. Administered Medications: 01:39 Drug: NS 0.9% IV 500 ml Route: IV; Rate: bolus; Site: right antecubital; rv 02:29 Follow up: IV Status: Completed infusion; IV Intake: 500ml rv Medication: 01:27 VIS not applicable for this client. rv Intake: 02:29 IV: 500ml; Total: 500ml. rv Outcome: 02:24 Discharge ordered by sp3 02: Discharged to home ambulatory. rv 02: Condition: good 02:28 Discharge instructions given to patient, Instructed on discharge instructions, follow up and referral plans. Demonstrated understanding of instructions, follow-up care. : Patient left the ED. rv Signatures: Dispatcher [employer] EDMS Billy Pineda, RN RN rv Natali Castro 3 Giovany Butterfield MD MD sp3 Maxime Ashby RN RN as6
--- NOTE | 2023-01-12 02:24 | EDPHYS ---
Physician Documentation [facility] Name: Anita Alvarez Age: 27 yrs Sex: Female : 1995 Arrival Date: 01/12/2023 Time: 00:59 Bed 17 Private MD: ED Physician Giovany Butterfield HPI: 01/12 01:39 This 27 yrs old Female presents to ER via Ambulatory with complaints of Abdominal Pain. sp3 01:39 27-year-old female with history of Be's disease, anxiety presents with chief sp3 complaint abdominal pain for several days. Patient is approximately 1 month and from a normal vaginal delivery. Patient initially called her PCP and OB doctors to suggest that she come to the emergency department for evaluation due to her symptoms of abdominal pain and diarrhea. She denies fever, headache, potential bad food, URI symptoms, chest pain, shortness of breath, back pain, syncope, near syncope, vomiting, melena, blood in your stool, or any other signs or symptoms on ROS at this time. Patient initially went to [facility] [place] where she received IV fluids and blood work which she has with her and was subsequently discharged. No imaging was done at that time. Patient now presents here for second opinion and continued symptoms.. MANAGER DISH: 01:12 LMP N/A - Recent as6 Historical: - Allergies: 01:12 PENICILLINS; as6 - PMHx: 01:12 Anxiety; Hoshimoto's disease; as6 - PSHx: 01:12 Cholecystectomy; DNC; gastric sleeve; as6 - Immunization history:: Client reports having NOT received the Covid vaccine. - Social history:: Smoking status: Patient denies any tobacco usage or history of. ROS: 01:40 Constitutional: Negative for fever, chills, and weight loss, Eyes: Negative for injury, sp3 pain, redness, and discharge, ENT: Negative for injury, pain, and discharge, Neck: Negative for injury, pain, and swelling, Cardiovascular: Negative for chest pain, palpitations, and edema, Respiratory: Negative for shortness of breath, cough, wheezing, and pleuritic chest pain, Back: Negative for injury and pain, MS/Extremity: Negative for injury and deformity, Skin: Negative for injury, rash, and discoloration, Neuro: Negative for headache, weakness, numbness, tingling, and seizure, Psych: Negative for depression, anxiety, suicide ideation, homicidal ideation, and hallucinations, Allergy/Immunology: Negative for hives, rash, and allergies, Endocrine: Negative for neck swelling, polydipsia, polyuria, polyphagia, and marked weight changes, Hematologic/Lymphatic: Negative for swollen nodes, abnormal bleeding, and unusual bruising. 01:40 All other systems are negative. Exam: 01:40 Constitutional: This is a well developed, well nourished patient who is awake, alert, sp3 and in no acute distress. Head/Face: Normocephalic, atraumatic. Eyes: Pupils equal round and reactive to light, extra-ocular motions intact. Lids and lashes normal. Conjunctiva and sclera are non-icteric and not injected. Cornea within normal limits. Periorbital areas with no swelling, redness, or edema. Neck: Trachea midline, no thyromegaly or masses palpated, and no cervical lymphadenopathy. Supple, full range of motion without nuchal rigidity, or vertebral point tenderness. No Meningismus. Chest/axilla: Normal chest wall appearance and motion. Nontender with no deformity. No lesions are appreciated. Cardiovascular: Regular rate and rhythm with a normal S1 and S2. No gallops, murmurs, or rubs. Normal PMI, no JVD. No pulse deficits. Respiratory: Lungs have equal breath sounds bilaterally, clear to auscultation and percussion. No rales, rhonchi or wheezes noted. No increased work of breathing, no retractions or nasal flaring. Abdomen/GI: Soft, non-tender, with normal bowel sounds. No distension or tympany. No guarding or rebound. No evidence of tenderness throughout. Back: No spinal tenderness. No costovertebral tenderness. Full range of motion. Skin: Warm, dry with normal turgor. Normal color with no rashes, no lesions, and no evidence of cellulitis. MS/ Extremity: Pulses equal, no cyanosis. Neurovascular intact. Full, normal range of motion. Neuro: Awake and alert, GCS 15, oriented to person, place, time, and situation. Cranial nerves II-XII grossly intact. Motor strength 5/5 in all extremities. Sensory grossly intact. Cerebellar exam normal. Normal gait. Psych: Awake, alert, with orientation to person, place and time. Behavior, mood, and affect are within normal limits. Vital Signs: 01:08 BP 143 / 109; Pulse 76; Resp 18 S; Temp 97.9(O); Pulse Ox 100% on R/A; Weight 78.47 kg as6 (R); Height 5 ft. 2 in. (R); Pain 8/10; 02:29 BP 126 / 70; Pulse 70; Resp 17; Temp 98; Pulse Ox 99% on R/A; rv 01:08 Body Mass Index 31.64 (78.47 kg, 157.48 cm) as6 01:08 Pain Scale: Adult as6 MDM: 01:38 Patient medically screened. sp3 01:41 Data reviewed: vital signs, nurses notes, lab test result(s), radiologic studies. ED sp3 course: 27-year-old female with gastroenteritis with diarrhea and diffuse abdominal pain. I do not believe patient has sepsis or any other critical pathology at this time. However due to her being , we must assess for retained products of conception. I have ordered an ultrasound for this purpose as well as rechecking laboratory values and administering more IV fluids. Pain currently is improved on its own and does not require further pain medication. If work-up is negative, we will safely discharge patient home to PCP follow-up. Clinically I have ruled out biliary pathology including cholecystitis and patient has no right lower quadrant pain and clinically I do not believe she has appendicitis either.. 02:23 ED course: Labs demonstrate no significant abnormality and ultrasound is negative for sp3 retained products. We will safely discharge patient home at this time with follow-up to PCP.. 01/12 01:29 Order name: CBC with Diff sp3 01/12 01:29 Order name: CMP sp3 01/12 01:29 Order name: Lipase sp3 01/12 01:29 Order name: Urinalysis w/ reflexes sp3 01/12 02:28 Order name: Manual Differential EDMS 01/12 02:29 Order name: Urine Culture EDMS 01/12 01:29 Order name: US Transvaginal Study (Probe) sp3 01/12 01:29 Order name: IV Saline Lock; Complete Time: :29 sp3 01/12 01:29 Order name: Labs collected and sent; Complete Time: : sp3 Administered Medications: 01:39 Drug: NS 0.9% IV 500 ml Route: IV; Rate: bolus; Site: right antecubital; rv 02:29 Follow up: IV Status: Completed infusion; IV Intake: 500ml rv Disposition Summary: 01/12/23 02:24 Discharge Ordered Location: Home sp3 Condition: Stable sp3 Diagnosis - Viral gastroenteritis sp3 Followup: sp3 - With: Private Physician - When: Upon discharge from the Emergency Department - Reason: Further diagnostic work-up Discharge Instructions: - Discharge Summary Sheet sp3 - Viral Gastroenteritis, Adult sp3 Forms: - Medication Reconciliation Form sp3 - Thank You Letter sp3 - Antibiotic Education sp3 - Prescription Opioid Use sp3 - Patient Portal Instructions sp3 Signatures: Dispatcher [employer] Billy Lowe RN RN rv Giovany Butterfield MD MD sp3 Maxime Ashby RN RN as6
[2023-01-12 02:29] LABS: Albumin 3.1 g/dL (3.4-5.0); Bilirubin Total 0.2 mg/dL (0.2-1.0); Potassium 4.1 mEq/L (3.5-5.1)
[2023-01-12 04:21] LABS: Blood Morphology Comment NOT SEEN (NOT SEEN); Platelet Estimate ADEQ
[2023-01-12 04:36] VITALS: BP 126/70; TEMP 98; O2SAT 99
--- NOTE | 2023-01-12 16:50 | RAD REPORT ---
EXAM DESCRIPTION: US - Transvaginal Study Probe - 01/12/2023 2:14 am CLINICAL HISTORY: Assess for retained POC COMPARISON: None. TECHNIQUE: US PELVIS TRANSVAGINAL 01/12/2023 1:29 AM CDT FINDINGS: Uterus measures 9.3 cm. Endometrial stripe measures 1 cm. There is no abnormal flow within the endometrium. Both ovaries normal in size with patent flow. IMPRESSION: No convincing retained products of conception. Electronically signed by: Lv Childs MD 01/12/2023 2:36 AM CDT Due to temporary technical issues with the PACS/Fluency reporting system, reports are being signed by the in house radiologists without review as a courtesy to insure prompt reporting. The interpreting radiologist is fully responsible for the content of the report.
== END 2023-01-12 02:29 | disposition home or self-care (01) ==
LOC: ER 00:59
DX: A08.4 Viral intestinal infection, unspecified (principal); Z88.0 Allergy status to penicillin
CPT/HCPCS: 36415; 76830; 80053; 81001; 83690; 85025; 87086; 87088; 96360; 99284; J7040

== ENCOUNTER 2023-10-19 21:34 | Emergency (ER) | payer BC, OTHER ==
--- OUTSIDE RECORDS SUMMARY | 2023-10-19 21:43 | XMS REPORT | Continuity of Care Document ---
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 morning. [facility] Levothyroxi ne 137 mcg Cap 02-05 14:46: 02 Yes Take by mouth. [facility] norethindro ne (ORTHO MICRONOR) 0.35 mg tablet 10-24 00:00: 00 02-05 00:00 :00 No [id number] .35mg Take 1 tablet by mouth daily for 336 days. [facility] Cyclobenzap rine Hcl (Flexeril) 5 Mg TAB 01-30 19:37: 00 No 5mg Three Times A Day as needed for Muscle Tension [facility] Dicyclomine Hcl (Bentyl) 10 Mg CAP 01-29 15:57: 00 No 10mg Four Times Daily as needed for Abdominal Cramps [facility] Ondansetron Hcl (Zofran Odt) 4 Mg TAB.RAPDIS 01-29 15:57: 00 No 4mg Every 8 Hours as needed for Nausea / Vomiting [facility] Nystatin (Nystatin Liq) 100,000 Unit/1 Ml ORAL.SUSP 09-12 07:38: 00 No [id number] Four Times Daily [facility] Omeprazole (Prilosec) 40 Mg CPDR No 40mg [facility] Immunizations Ordered Immunization Name Filled Immunization Name Date Status Comments Source Rho (d) Immune Globulin 2022-12-10 00:00:00 Completed [facility] Rho (d) Immune Globulin 2022-12-10 00:00:00 Completed [facility] Rho (d) Immune Globulin 2022-12-10 00:00:00 Completed [facility] Rho (d) Immune Globulin 2022-12-10 00:00:00 Completed [facility] Rho (d) Immune Globulin 2022-12-10 00:00:00 Completed [facility] Rho (d) Immune Globulin 2022-12-10 00:00:00 Completed [facility] Rho (d) Immune Globulin 2022-12-10 00:00:00 Completed [facility] Rho (d) Immune Globulin 2022-12-10 00:00:00 Completed [facility] Rho (d) Immune Globulin 2022-12-10 00:00:00 Completed [facility] Rho (d) Immune Globulin 2022-12-10 00:00:00 Completed [facility] Rho (d) Immune Globulin 2022-12-10 00:00:00 Completed [facility] Rho (d) Immune Globulin 2022-12-10 00:00:00 Completed [facility] Rho (d) Immune Globulin 2022-12-10 00:00:00 Completed [facility] TDAP 2022-10-23 00:00:00 Completed [facility] Rho (d) Immune Globulin 2022-10-23 00:00:00 Completed [facility] TDAP 2022-10-23 00:00:00 Completed [facility] Rho (d) Immune Globulin 2022-10-23 00:00:00 Completed [facility] TDAP 2022-10-23 00:00:00 Completed [facility] Rho (d) Immune Globulin 2022-10-23 00:00:00 Completed [facility] TDAP 2022-10-23 00:00:00 Completed [facility] Rho (d) Immune Globulin 2022-10-23 00:00:00 Completed [facility] TDAP 2022-10-23 00:00:00 Completed [facility] Rho (d) Immune Globulin 2022-10-23 00:00:00 Completed [facility] TDAP 2022-10-23 00:00:00 Completed [facility] Rho (d) Immune Globulin 2022-10-23 00:00:00 Completed [facility] TDAP 2022-10-23 00:00:00 Completed [facility] Rho (d) Immune Globulin 2022-10-23 00:00:00 Completed [facility] TDAP 2022-10-23 00:00:00 Completed [facility] Rho (d) Immune Globulin 2022-10-23 00:00:00 Completed [facility] TDAP 2022-10-23 00:00:00 Completed [facility] Rho (d) Immune Globulin 2022-10-23 00:00:00 Completed [facility] TDAP 2022-10-23 00:00:00 Completed [facility] Rho (d) Immune Globulin 2022-10-23 00:00:00 Completed [facility] TDAP 2022-10-23 00:00:00 Completed [facility] Rho (d) Immune Globulin 2022-10-23 00:00:00 Completed [facility] TDAP 2022-10-23 00:00:00 Completed [facility] Rho (d) Immune Globulin 2022-10-23 00:00:00 Completed [facility] TDAP 2022-10-23 00:00:00 Completed [facility] Rho (d) Immune Globulin 2022-10-23 00:00:00 Completed [facility] TDAP 2022-10-23 00:00:00 Completed [facility] Rho (d) Immune Globulin 2022-10-23 00:00:00 Completed [facility] TDAP 2022-10-23 00:00:00 Completed [facility] Rho (d) Immune Globulin 2022-10-23 00:00:00 Completed [facility] TDAP 2022-10-23 00:00:00 Completed [facility] Rho (d) Immune Globulin 2022-10-23 00:00:00 Completed [facility] TDAP 2022-10-23 00:00:00 Completed [facility] Rho (d) Immune Globulin 2022-10-23 00:00:00 Completed [facility] TDAP 2022-10-23 00:00:00 Completed [facility] Rho (d) Immune Globulin 2022-10-23 00:00:00 Completed [facility] TDAP 2022-10-23 00:00:00 Completed [facility] Rho (d) Immune Globulin 2022-10-23 00:00:00 Completed [facility] TDAP 2022-10-23 00:00:00 Completed [facility] Rho (d) Immune Globulin 2022-10-23 00:00:00 Completed [facility] TDAP 2022-10-23 00:00:00 Completed [facility] Rho (d) Immune Globulin 2022-10-23 00:00:00 Completed [facility] TDAP 2022-10-23 00:00:00 Completed [facility] Rho (d) Immune Globulin 2022-10-23 00:00:00 Completed [facility] TDAP 2022-10-23 00:00:00 Completed [facility] Rho (d) Immune Globulin 2022-10-23 00:00:00 Completed [facility] TDAP 2022-10-23 00:00:00 Completed [facility] Rho (d) Immune Globulin 2022-10-23 00:00:00 Completed [facility] TDAP 2022-10-23 00:00:00 Completed [facility] Rho (d) Immune Globulin 2022-10-23 00:00:00 Completed [facility] TDAP 2022-10-23 00:00:00 Completed [facility] Rho (d) Immune Globulin 2022-10-23 00:00:00 Completed [facility] TDAP 2022-10-23 00:00:00 Completed [facility] Rho (d) Immune Globulin 2022-10-23 00:00:00 Completed [facility] TDAP 2022-10-23 00:00:00 Completed [facility] Rho (d) Immune Globulin 2022-10-23 00:00:00 Completed [facility] TDAP 2022-10-23 00:00:00 Completed [facility] Rho (d) Immune Globulin 2022-10-23 00:00:00 Completed [facility] TDAP 2022-10-23 00:00:00 Completed [facility] Rho (d) Immune Globulin 2022-10-23 00:00:00 Completed [facility] TDAP 2022-10-23 00:00:00 Completed [facility] Rho (d) Immune Globulin 2022-10-23 00:00:00 Completed [facility] TDAP 2022-10-23 00:00:00 Completed [facility] Rho (d) Immune Globulin 2022-10-23 00:00:00 Completed [facility] TDAP 2022-10-23 00:00:00 Completed [facility] Rho (d) Immune Globulin 2022-10-23 00:00:00 Completed [facility] TDAP 2022-10-23 00:00:00 Completed [facility] Rho (d) Immune Globulin 2022-10-23 00:00:00 Completed [facility] TDAP 2022-10-23 00:00:00 Completed [facility] Rho (d) Immune Globulin 2022-10-23 00:00:00 Completed [facility] TDAP 2022-10-23 00:00:00 Completed [facility] Rho (d) Immune Globulin 2022-10-23 00:00:00 Completed [facility] TDAP 2022-10-23 00:00:00 Completed [facility] Rho (d) Immune Globulin 2022-10-23 00:00:00 Completed [facility] TDAP 2022-10-23 00:00:00 Completed [facility] Rho (d) Immune Globulin 2022-10-23 00:00:00 Completed [facility] TDAP 2022-10-23 00:00:00 Completed [facility] Rho (d) Immune Globulin 2022-10-23 00:00:00 Completed [facility] TDAP 2022-10-23 00:00:00 Completed [facility] Rho (d) Immune Globulin 2022-10-23 00:00:00 Completed [facility] TDAP 2022-10-23 00:00:00 Completed [facility] Rho (d) Immune Globulin 2022-10-23 00:00:00 Completed [facility] TDAP 2022-10-23 00:00:00 Completed [facility] Rho (d) Immune Globulin 2022-10-23 00:00:00 Completed [facility] SARS-COV-2 COVID-19 MODERNA 12+ YRS VACCINE 2021-02-25 00:00:00 Completed [facility] SARS-COV-2 COVID-19 MODERNA 12+ YRS VACCINE 2021-02-25 00:00:00 Completed [facility] SARS-COV-2 COVID-19 MODERNA 12+ YRS VACCINE 2021-02-25 00:00:00 Completed [facility] SARS-COV-2 COVID-19 MODERNA 12+ YRS VACCINE 2021-02-25 00:00:00 Completed [facility] SARS-COV-2 COVID-19 MODERNA 12+ YRS VACCINE 2021-02-25 00:00:00 Completed [facility] SARS-COV-2 COVID-19 MODERNA 12+ YRS VACCINE 2021-02-25 00:00:00 Completed [facility] SARS-COV-2 COVID-19 MODERNA 12+ YRS VACCINE 2021-02-25 00:00:00 Completed [facility] SARS-COV-2 COVID-19 MODERNA 12+ YRS VACCINE 2021-02-25 00:00:00 Completed [facility] SARS-COV-2 COVID-19 MODERNA 12+ YRS VACCINE 2021-02-25 00:00:00 Completed [facility] SARS-COV-2 COVID-19 MODERNA VACCINE 2021-02-25 00:00:00 Completed [facility] SARS-COV-2 COVID-19 MODERNA 12+ YRS VACCINE 2021-02-25 00:00:00 Completed [facility] SARS-COV-2 COVID-19 MODERNA 12+ YRS VACCINE 2021-02-25 00:00:00 Completed [facility] SARS-COV-2 COVID-19 MODERNA 12+ YRS VACCINE 2021-02-25 00:00:00 Completed [facility] SARS-COV-2 COVID-19 MODERNA 12+ YRS VACCINE 2021-02-25 00:00:00 Completed [facility] SARS-COV-2 COVID-19 MODERNA VACCINE 2021-02-25 00:00:00 Completed [facility] SARS-COV-2 COVID-19 MODERNA 12+ YRS VACCINE 2021-02-25 00:00:00 Completed [facility] SARS-COV-2 COVID-19 MODERNA 12+ YRS VACCINE 2021-02-25 00:00:00 Completed [facility] SARS-COV-2 COVID-19 MODERNA VACCINE 2021-02-25 00:00:00 Completed [facility] SARS-COV-2 COVID-19 MODERNA VACCINE 2021-02-25 00:00:00 Completed [facility] SARS-COV-2 COVID-19 MODERNA 12+ YRS VACCINE 2021-02-25 00:00:00 Completed [facility] SARS-COV-2 COVID-19 MODERNA 12+ YRS VACCINE 2021-02-25 00:00:00 Completed [facility] SARS-COV-2 COVID-19 MODERNA 12+ YRS VACCINE 2021-02-25 00:00:00 Completed [facility] SARS-COV-2 COVID-19 MODERNA 12+ YRS VACCINE 2021-02-25 00:00:00 Completed [facility] SARS-COV-2 COVID-19 MODERNA 12+ YRS VACCINE 2021-02-25 00:00:00 Completed [facility] SARS-COV-2 COVID-19 MODERNA 12+ YRS VACCINE 2021-02-25 00:00:00 Completed [facility] SARS-COV-2 COVID-19 MODERNA 12+ YRS VACCINE 2021-02-25 00:00:00 Completed [facility] SARS-COV-2 COVID-19 MODERNA 12+ YRS VACCINE 2021-02-25 00:00:00 Completed [facility] SARS-COV-2 COVID-19 MODERNA 12+ YRS VACCINE 2021-02-25 00:00:00 Completed [facility] SARS-COV-2 COVID-19 MODERNA 12+ YRS VACCINE 2021-02-25 00:00:00 Completed [facility] SARS-COV-2 COVID-19 MODERNA 12+ YRS VACCINE 2021-02-25 00:00:00 Completed [facility] SARS-COV-2 COVID-19 MODERNA 12+ YRS VACCINE 2021-02-25 00:00:00 Completed [facility] SARS-COV-2 COVID-19 MODERNA 12+ YRS VACCINE 2021-02-25 00:00:00 Completed [facility] SARS-COV-2 COVID-19 MODERNA 12+ YRS VACCINE 2021-02-25 00:00:00 Completed [facility] SARS-COV-2 COVID-19 MODERNA 12+ YRS VACCINE 2021-02-25 00:00:00 Completed [facility] SARS-COV-2 COVID-19 MODERNA 12+ YRS VACCINE 2021-02-25 00:00:00 Completed [facility] SARS-COV-2 COVID-19 MODERNA 12+ YRS VACCINE 2021-02-25 00:00:00 Completed [facility] SARS-COV-2 COVID-19 MODERNA 12+ YRS VACCINE 2021-02-25 00:00:00 Completed [facility] SARS-COV-2 COVID-19 MODERNA 12+ YRS VACCINE 2021-02-25 00:00:00 Completed [facility] SARS-COV-2 COVID-19 MODERNA 12+ YRS VACCINE 2021-02-25 00:00:00 Completed [facility] SARS-COV-2 COVID-19 MODERNA 12+ YRS VACCINE 2021-02-25 00:00:00 Completed [facility] SARS-COV-2 COVID-19 MODERNA 12+ YRS VACCINE 2021-02-25 00:00:00 Completed [facility] SARS-COV-2 COVID-19 MODERNA 12+ YRS VACCINE 2021-02-25 00:00:00 Completed [facility] SARS-COV-2 COVID-19 MODERNA 12+ YRS VACCINE 2021-02-25 00:00:00 Completed [facility] SARS-COV-2 COVID-19 MODERNA 12+ YRS VACCINE 2021-02-25 00:00:00 Completed [facility] SARS-COV-2 COVID-19 MODERNA 12+ YRS VACCINE 2021-02-25 00:00:00 Completed [facility] SARS-COV-2 COVID-19 MODERNA 12+ YRS VACCINE 2021-02-25 00:00:00 Completed [facility] SARS-COV-2 COVID-19 MODERNA 12+ YRS VACCINE 2021-02-25 00:00:00 Completed [facility] SARS-COV-2 COVID-19 MODERNA 12+ YRS VACCINE 2021-02-25 00:00:00 Completed [facility] SARS-COV-2 COVID-19 MODERNA 12+ YRS VACCINE 2021-02-25 00:00:00 Completed [facility] SARS-COV-2 COVID-19 MODERNA 12+ YRS VACCINE 2021-02-25 00:00:00 Completed [facility] SARS-COV-2 COVID-19 MODERNA 12+ YRS VACCINE 2021-02-25 00:00:00 Completed [facility] SARS-COV-2 COVID-19 MODERNA 12+ YRS VACCINE 2021-02-25 00:00:00 Completed [facility] SARS-COV-2 COVID-19 MODERNA 12+ YRS VACCINE 2021-02-25 00:00:00 Completed [facility] SARS-COV-2 COVID-19 MODERNA 12+ YRS VACCINE 2021-02-25 00:00:00 Completed [facility] SARS-COV-2 COVID-19 MODERNA 12+ YRS VACCINE 2021-02-25 00:00:00 Completed [facility] SARS-COV-2 COVID-19 MODERNA 12+ YRS VACCINE 2021-02-25 00:00:00 Completed [facility] SARS-COV-2 COVID-19 MODERNA 12+ YRS VACCINE Unknown Completed [facility] TDAP Unknown Completed [facility] Rho (d) Immune Globulin Unknown Completed [facility] Rho (d) Immune Globulin Unknown Completed [facility] Influenza Virus Vaccine Quad IM, Preserv and ABX Free 6 MO-64 YRS (FLUCELVAX) Unknown Completed [facility] SARS-COV-2 COVID-19 MODERNA 12+ YRS VACCINE Unknown Completed [facility] TDAP Unknown Completed [facility] Rho (d) Immune Globulin Unknown Completed [facility] Rho (d) Immune Globulin Unknown Completed [facility] Influenza Virus Vaccine Quad IM, Preserv and ABX Free 6 MO-64 YRS (FLUCELVAX) Unknown Completed [facility] SARS-COV-2 COVID-19 VACCINE - (MODERNA) Unknown [facility] SARS-[facility]OV[facility] COVID-19 MODERNA 12+ YRS VACCINE Unknown Completed [facility] TDAP Unknown Completed [facility] Rho (d) Immune Globulin Unknown Completed [facility] Rho (d) Immune Globulin Unknown Completed [facility] Influenza Virus Vaccine Quad IM, Preserv and ABX Free 6 MO-64 YRS (FLUCELVAX) Unknown Completed [facility] SARS-COV-2 COVID-19 VACCINE - (MODERNA) Unknown Com[facility] SARS-COV-2 COVID-19 MODERNA 12+ YRS VACCINE Unknown Completed [facility] TDAP Unknown Completed [facility] Rho (d) Immune Globulin Unknown Completed [facility] Rho (d) Immune Globulin Unknown Completed [facility] Influenza Virus Vaccine Quad IM, Preserv and ABX Free 6 MO-64 YRS (FLUCELVAX) Unknown Completed [facility] SARS-COV-2 COVID-19 VACCINE - (MODERNA) Unknown Completed [facility] SARS-COV-2 COVID-19 MODERNA 12+ YRS VACCINE Unknown Completed [facility] TDAP Unknown Completed [facility] Rho (d) Immune Globulin Unknown Completed [facility] Rho (d) Immune Globulin Unknown Completed [facility] Influenza Virus Vaccine Quad IM, Preserv and ABX Free 6 MO-64 YRS (FLUCELVAX) Unknown Completed [facility] SARS-COV-2 COVID-19 VACCINE - (MODERNA) Unknown Completed [facility] SARS-COV-2 COVID-19 MODERNA 12+ YRS VACCINE Unknown Completed [facility] TDAP Unknown Completed [facility] Rho (d) Immune Globulin Unknown Completed [facility] Rho (d) Immune Globulin Unknown Completed [facility] Influenza Virus Vaccine Quad IM, Preserv and ABX Free 6 MO-64 YRS (FLUCELVAX) Unknown Completed [facility] SARS-COV-2 COVID-19 VACCINE - (MODERNA) Unknown Completed [facility] SARS-COV-2 COVID-19 MODERNA 12+ YRS VACCINE Unknown Completed [facility] TDAP Unknown Completed [facility] Rho (d) Immune Globulin Unknown Completed [facility] Rho (d) Immune Globulin Unknown Completed [facility] Influenza Virus Vaccine Quad IM, Preserv and ABX Free 6 MO-64 YRS (FLUCELVAX) Unknown Completed [facility] SARS-COV-2 COVID-19 VACCINE - (MODERNA) Unknown Completed [facility] SARS-COV-2 COVID-19 MODERNA 12+ YRS VACCINE Unknown Completed [facility] TDAP Unknown Completed [facility] Rho (d) Immune Globulin Unknown Completed [facility] Rho (d) Immune Globulin Unknown Completed [facility] Influenza Virus Vaccine Quad IM, Preserv and ABX Free 6 MO-64 YRS (FLUCELVAX) Unknown Completed [facility] SARS-COV-2 COVID-19 VACCINE - (MODERNA) Unknown Completed [facility] SARS-COV-2 COVID-19 MODERNA 12+ YRS VACCINE Unknown Completed [facility] TDAP Unknown Completed [facility] Rho (d) Immune Globulin Unknown Completed [facility] Rho (d) Immune Globulin Unknown Completed [facility] Influenza Virus Vaccine Quad IM, Preserv and ABX Free 6 MO-64 YRS (FLUCELVAX) Unknown Completed [facility] SARS-COV-2 COVID-19 VACCINE - (MODERNA) Unknown Completed [facility] SARS-COV-2 COVID-19 MODERNA 12+ YRS VACCINE Unknown Completed [facility] TDAP Unknown Completed [facility] Rho (d) Immune Globulin Unknown Completed [facility] Rho (d) Immune Globulin Unknown Completed [facility] Influenza Virus Vaccine Quad IM, Preserv and ABX Free 6 MO-64 YRS (FLUCELVAX) Unknown Completed [facility] SARS-COV-2 COVID-19 VACCINE - (MODERNA) Unknown Com[facility] SARS-COV-2 COVID-19 MODERNA 12+ YRS VACCINE Unknown Completed [facility] TDAP Unknown Completed [facility] Rho (d) Immune Globulin Unknown Completed [facility] Rho (d) Immune Globulin Unknown Completed [facility] Influenza Virus Vaccine Quad IM, Preserv and ABX Free 6 MO-64 YRS (FLUCELVAX) Unknown Completed [facility] SARS-COV-2 COVID-19 VACCINE - (MODERNA) Unknown Completed [facility] SARS-COV-2 COVID-19 MODERNA 12+ YRS VACCINE Unknown Completed [facility] TDAP Unknown Completed [facility] Rho (d) Immune Globulin Unknown Completed [facility] Rho (d) Immune Globulin Unknown Completed [facility] Influenza Virus Vaccine Quad IM, Preserv and ABX Free 6 MO-64 YRS (FLUCELVAX) Unknown Completed [facility] SARS-COV-2 COVID-19 VACCINE - (MODERNA) Unknown Completed [facility] SARS-COV-2 COVID-19 MODERNA 12+ YRS VACCINE Unknown Completed [facility] TDAP Unknown Completed [facility] Rho (d) Immune Globulin Unknown Completed [facility] Rho (d) Immune Globulin Unknown Completed [facility] Influenza Virus Vaccine Quad IM, Preserv and ABX Free 6 MO-64 YRS (FLUCELVAX) Unknown Completed [facility] SARS-COV-2 COVID-19 VACCINE - (MODERNA) Unknown Completed [facility] SARS-COV-2 COVID-19 MODERNA 12+ YRS VACCINE Unknown Completed [facility] TDAP Unknown Completed [facility] Rho (d) Immune Globulin Unknown Completed [facility] Rho (d) Immune Globulin Unknown Completed [facility] Influenza Virus Vaccine Quad IM, Preserv and ABX Free 6 MO-64 YRS (FLUCELVAX) Unknown Completed [facility] SARS-COV-2 COVID-19 VACCINE - (MODERNA) Unknown Completed [facility] SARS-COV-2 COVID-19 MODERNA 12+ YRS VACCINE Unknown Completed [facility] TDAP Unknown Completed [facility] Rho (d) Immune Globulin Unknown Completed [facility] Rho (d) Immune Globulin Unknown Completed [facility] Influenza Virus Vaccine Quad IM, Preserv and ABX Free 6 MO-64 YRS (FLUCELVAX) Unknown Completed [facility] SARS-COV-2 COVID-19 VACCINE - (MODERNA) Unknown Completed [facility] SARS-COV-2 COVID-19 MODERNA 12+ YRS VACCINE Unknown Completed [facility] TDAP Unknown Completed [facility] Rho (d) Immune Globulin Unknown Completed [facility] Rho (d) Immune Globulin Unknown Completed [facility] Influenza Virus Vaccine Quad IM, Preserv and ABX Free 6 MO-64 YRS (FLUCELVAX) Unknown Completed [facility] SARS-COV-2 COVID-19 VACCINE - (MODERNA) Unknown Completed [facility] SARS-COV-2 COVID-19 MODERNA 12+ YRS VACCINE Unknown Completed [facility] TDAP Unknown Completed [facility] Rho (d) Immune Globulin Unknown Completed [facility] Rho (d) Immune Globulin Unknown Completed [facility] Influenza Virus Vaccine Quad IM, Preserv and ABX Free 6 MO-64 YRS (FLUCELVAX) Unknown Completed [facility] SARS-COV-2 COVID-19 VACCINE - (MODERNA) Unknown Completed [facility] SARS-COV-2 COVID-19 MODERNA 12+ YRS VACCINE Unknown Completed [facility] TDAP Unknown Completed [facility] Rho (d) Immune Globulin Unknown Completed [facility] Rho (d) Immune Globulin Unknown Completed [facility] Influenza Virus Vaccine Quad IM, Preserv and ABX Free 6 MO-64 YRS (FLUCELVAX) Unknown Completed [facility] SARS-COV-2 COVID-19 VACCINE - (MODERNA) Unknown Completed [facility] SARS-COV-2 COVID-19 MODERNA 12+ YRS VACCINE Unknown Completed [facility] TDAP Unknown Completed [facility] Rho (d) Immune Globulin Unknown Completed [facility] Rho (d) Immune Globulin Unknown Completed [facility] Influenza Virus Vaccine Quad IM, Preserv and ABX Free 6 MO-64 YRS (FLUCELVAX) Unknown Completed [facility] SARS-COV-2 COVID-19 VACCINE - (MODERNA) Unknown [facility] COVID-19 MODERNA 12+ YRS VACCINE Unknown Completed [facility] TDAP Unknown Completed [facility] Rho (d) Immune Globulin Unknown Completed [facility] Rho (d) Immune Globulin Unknown Completed [facility] Influenza Virus Vaccine Quad IM, Preserv and ABX Free 6 MO-64 YRS (FLUCELVAX) Unknown Completed [facility] SARS-COV-2 COVID-19 VACCINE - (MODERNA) Unknown Com[facility] SARS-COV-2 COVID-19 MODERNA 12+ YRS VACCINE Unknown Completed [facility] TDAP Unknown Completed [facility] Rho (d) Immune Globulin Unknown Completed [facility] Rho (d) Immune Globulin Unknown Completed [facility] Influenza Virus Vaccine Quad IM, Preserv and ABX Free 6 MO-64 YRS (FLUCELVAX) Unknown Completed [facility] SARS-COV-2 COVID-19 VACCINE - (MODERNA) Unknown Completed [facility] SARS-COV-2 COVID-19 MODERNA 12+ YRS VACCINE Unknown Completed [facility] TDAP Unknown Completed [facility] Rho (d) Immune Globulin Unknown Completed [facility] Rho (d) Immune Globulin Unknown Completed [facility] Influenza Virus Vaccine Quad IM, Preserv and ABX Free 6 MO-64 YRS (FLUCELVAX) Unknown Completed [facility] SARS-COV-2 COVID-19 VACCINE - (MODERNA) Unknown Completed [facility] SARS-COV-2 COVID-19 MODERNA 12+ YRS VACCINE Unknown Completed [facility] TDAP Unknown Completed [facility] Rho (d) Immune Globulin Unknown Completed [facility] Rho (d) Immune Globulin Unknown Completed [facility] Influenza Virus Vaccine Quad IM, Preserv and ABX Free 6 MO-64 YRS (FLUCELVAX) Unknown Completed [facility] SARS-COV-2 COVID-19 VACCINE - (MODERNA) Unknown Completed [facility] SARS-COV-2 COVID-19 MODERNA 12+ YRS VACCINE Unknown Completed [facility] TDAP Unknown Completed [facility] Rho (d) Immune Globulin Unknown Completed [facility] Rho (d) Immune Globulin Unknown Completed [facility] Influenza Virus Vaccine Quad IM, Preserv and ABX Free 6 MO-64 YRS (FLUCELVAX) Unknown Completed [facility] SARS-COV-2 COVID-19 VACCINE - (MODERNA) Unknown Completed [facility] SARS-COV-2 COVID-19 MODERNA 12+ YRS VACCINE Unknown Completed [facility] TDAP Unknown Completed [facility] Rho (d) Immune Globulin Unknown Completed [facility] Rho (d) Immune Globulin Unknown Completed [facility] Influenza Virus Vaccine Quad IM, Preserv and ABX Free 6 MO-64 YRS (FLUCELVAX) Unknown Completed [facility] SARS-COV-2 COVID-19 VACCINE - (MODERNA) Unknown Completed [facility] SARS-COV-2 COVID-19 MODERNA 12+ YRS VACCINE Unknown Completed [facility] TDAP Unknown Completed [facility] Rho (d) Immune Globulin Unknown Completed [facility] Rho (d) Immune Globulin Unknown Completed [facility] Influenza Virus Vaccine Quad IM, Preserv and ABX Free 6 MO-64 YRS (FLUCELVAX) Unknown Completed [facility] SARS-COV-2 COVID-19 VACCINE - (MODERNA) Unknown Completed [facility] SARS-COV-2 COVID-19 MODERNA 12+ YRS VACCINE Unknown Completed [facility] TDAP Unknown Completed [facility] Rho (d) Immune Globulin Unknown Completed [facility] Rho (d) Immune Globulin Unknown Completed [facility] Influenza Virus Vaccine Quad IM, Preserv and ABX Free 6 MO-64 YRS (FLUCELVAX) Unknown Completed [facility] SARS-COV-2 COVID-19 VACCINE - (MODERNA) Unknown Completed [facility] SARS-COV-2 COVID-19 MODERNA 12+ YRS VACCINE Unknown Completed [facility] TDAP Unknown Completed [facility] Rho (d) Immune Globulin Unknown Completed [facility] Rho (d) Immune Globulin Unknown Completed [facility] Influenza Virus Vaccine Quad IM, Preserv and ABX Free 6 MO-64 YRS (FLUCELVAX) Unknown Completed [facility] SARS-COV-2 COVID-19 VACCINE - (MODERNA) Unknown [facility] SARS-COV-[facility] COVID-19 MODERNA 12+ YRS VACCINE Unknown Completed [facility] TDAP Unknown Completed [facility] Rho (d) Immune Globulin Unknown Completed [facility] Rho (d) Immune Globulin Unknown Completed [facility] Influenza Virus Vaccine Quad IM, Preserv and ABX Free 6 MO-64 YRS (FLUCELVAX) Unknown Completed [facility] SARS-COV-2 COVID-19 VACCINE - (MODERNA) Unknown Com[facility] SARS-COV-2 COVID-19 MODERNA 12+ YRS VACCINE Unknown Completed [facility] TDAP Unknown Completed [facility] Rho (d) Immune Globulin Unknown Completed [facility] Rho (d) Immune Globulin Unknown Completed [facility] Influenza Virus Vaccine Quad IM, Preserv and ABX Free 6 MO-64 YRS (FLUCELVAX) Unknown Completed [facility] SARS-COV-2 COVID-19 VACCINE - (MODERNA) Unknown Completed [facility] SARS-COV-2 COVID-19 MODERNA 12+ YRS VACCINE Unknown Completed [facility] TDAP Unknown Completed [facility] Rho (d) Immune Globulin Unknown Completed [facility] Rho (d) Immune Globulin Unknown Completed [facility] Influenza Virus Vaccine Quad IM, Preserv and ABX Free 6 MO-64 YRS (FLUCELVAX) Unknown Completed [facility] SARS-COV-2 COVID-19 VACCINE - (MODERNA) Unknown Completed [facility] SARS-COV-2 COVID-19 MODERNA 12+ YRS VACCINE Unknown Completed [facility] TDAP Unknown Completed [facility] Rho (d) Immune Globulin Unknown Completed [facility] Rho (d) Immune Globulin Unknown Completed [facility] Influenza Virus Vaccine Quad IM, Preserv and ABX Free 6 MO-64 YRS (FLUCELVAX) Unknown Completed [facility] SARS-COV-2 COVID-19 VACCINE - (MODERNA) Unknown Completed [facility] SARS-COV-2 COVID-19 MODERNA 12+ YRS VACCINE Unknown Completed [facility] TDAP Unknown Completed [facility] Rho (d) Immune Globulin Unknown Completed [facility] Rho (d) Immune Globulin Unknown Completed [facility] Influenza Virus Vaccine Quad IM, Preserv and ABX Free 6 MO-64 YRS (FLUCELVAX) Unknown Completed [facility] SARS-COV-2 COVID-19 VACCINE - (MODERNA) Unknown Completed [facility] SARS-COV-2 COVID-19 MODERNA 12+ YRS VACCINE Unknown Completed [facility] TDAP Unknown Completed [facility] Rho (d) Immune Globulin Unknown Completed [facility] Rho (d) Immune Globulin Unknown Completed [facility] Influenza Virus Vaccine Quad IM, Preserv and ABX Free 6 MO-64 YRS (FLUCELVAX) Unknown Completed [facility] SARS-COV-2 COVID-19 VACCINE - (MODERNA) Unknown Completed [facility] SARS-COV-2 COVID-19 MODERNA 12+ YRS VACCINE Unknown Completed [facility] TDAP Unknown Completed [facility] Rho (d) Immune Globulin Unknown Completed [facility] Rho (d) Immune Globulin Unknown Completed [facility] Influenza Virus Vaccine Quad IM, Preserv and ABX Free 6 MO-64 YRS (FLUCELVAX) Unknown Completed [facility] SARS-COV-2 COVID-19 VACCINE - (MODERNA) Unknown Completed [facility] SARS-COV-2 COVID-19 MODERNA 12+ YRS VACCINE Unknown Completed [facility] TDAP Unknown Completed [facility] Rho (d) Immune Globulin Unknown Completed [facility] Rho (d) Immune Globulin Unknown Completed [facility] Influenza Virus Vaccine Quad IM, Preserv and ABX Free 6 MO-64 YRS (FLUCELVAX) Unknown Completed [facility] SARS-COV-2 COVID-19 VACCINE - (MODERNA) Unknown Completed [facility] SARS-COV-2 COVID-19 MODERNA 12+ YRS VACCINE Unknown Completed [facility] TDAP Unknown Completed [facility] Rho (d) Immune Globulin Unknown Completed [facility] Rho (d) Immune Globulin Unknown Completed [facility] Influenza Virus Vaccine Quad IM, Preserv and ABX Free 6 MO-64 YRS (FLUCELVAX) Unknown Completed [facility] SARS-COV-2 COVID-19 VACCINE - (MODERNA) Unknown Completed [facility] SARS-COV-2 COVID-19 MODERNA 12+ YRS VACCINE Unknown Completed [facility] TDAP Unknown Completed [facility] Rho (d) Immune Globulin Unknown Completed [facility] Rho (d) Immune Globulin Unknown Completed [facility] Influenza Virus Vaccine Quad IM, Preserv and ABX Free 6 MO-64 YRS (FLUCELVAX) Unknown Completed [facility] SARS-COV-2 COVID-19 VACCINE - (MODERNA) Unknown Completed [facility] SARS-COV-2 COVID-19 MODERNA 12+ YRS VACCINE Unknown Completed [facility] TDAP Unknown Completed [facility] Rho (d) Immune Globulin Unknown Completed [facility] Rho (d) Immune Globulin Unknown Completed [facility] Influenza Virus Vaccine Quad IM, Preserv and ABX Free 6 MO-64 YRS (FLUCELVAX) Unknown Completed [facility] SARS-COV-2 COVID-19 VACCINE - (MODERNA) Unknown Completed [facility] SARS-COV-2 COVID-19 MODERNA 12+ YRS VACCINE Unknown Completed [facility] TDAP Unknown Completed [facility] Rho (d) Immune Globulin Unknown Completed [facility] Rho (d) Immune Globulin Unknown Completed [facility] Influenza Virus Vaccine Quad IM, Preserv and ABX Free 6 MO-64 YRS (FLUCELVAX) Unknown Completed [facility] SARS-COV-2 COVID-19 VACCINE - (MODERNA) Unknown Completed [facility] SARS-COV-2 COVID-19 MODERNA 12+ YRS VACCINE Unknown Completed [facility] TDAP Unknown Completed [facility] Rho (d) Immune Globulin Unknown Completed [facility] Rho (d) Immune Globulin Unknown Completed [facility] Influenza Virus Vaccine Quad IM, Preserv and ABX Free 6 MO-64 YRS (FLUCELVAX) Unknown Completed [facility] SARS-COV-2 COVID-19 VACCINE - (MODERNA) Unknown Completed [facility] SARS-COV-2 COVID-19 MODERNA 12+ YRS VACCINE Unknown Completed [facility] TDAP Unknown Completed [facility] Rho (d) Immune Globulin Unknown Completed [facility] Rho (d) Immune Globulin Unknown Completed [facility] Influenza Virus Vaccine Quad IM, Preserv and ABX Free 6 MO-64 YRS (FLUCELVAX) Unknown Completed [facility] SARS-COV-2 COVID-19 VACCINE - (MODERNA) Unknown Com[facility] SARS-COV-2 COVID-19 MODERNA 12+ YRS VACCINE Unknown Completed [facility] TDAP Unknown Completed [facility] Rho (d) Immune Globulin Unknown Completed [facility] Rho (d) Immune Globulin Unknown Completed [facility] Influenza Virus Vaccine Quad IM, Preserv and ABX Free 6 MO-64 YRS (FLUCELVAX) Unknown Completed [facility] SARS-COV-2 COVID-19 VACCINE - (MODERNA) Unknown Completed [facility] SARS-COV-2 COVID-19 MODERNA 12+ YRS VACCINE Unknown Completed [facility] TDAP Unknown Completed [facility] Rho (d) Immune Globulin Unknown Completed [facility] Rho (d) Immune Globulin Unknown Completed [facility] Influenza Virus Vaccine Quad IM, Preserv and ABX Free 6 MO-64 YRS (FLUCELVAX) Unknown Completed [facility] SARS-COV-2 COVID-19 VACCINE - (MODERNA) Unknown Completed [facility] SARS-COV-2 COVID-19 MODERNA 12+ YRS VACCINE Unknown Completed [facility] TDAP Unknown Completed [facility] Rho (d) Immune Globulin Unknown Completed [facility] Rho (d) Immune Globulin Unknown Completed [facility] Influenza Virus Vaccine Quad IM, Preserv and ABX Free 6 MO-64 YRS (FLUCELVAX) Unknown Completed [facility] SARS-COV-2 COVID-19 VACCINE - (MODERNA) Unknown Completed [facility] SARS-COV-2 COVID-19 MODERNA 12+ YRS VACCINE Unknown Completed [facility] TDAP Unknown Completed [facility] Rho (d) Immune Globulin Unknown Completed [facility] Rho (d) Immune Globulin Unknown Completed [facility] Influenza Virus Vaccine Quad IM, Preserv and ABX Free 6 MO-64 YRS (FLUCELVAX) Unknown Completed [facility] SARS-COV-2 COVID-19 VACCINE - (MODERNA) Unknown Completed [facility] SARS-COV-2 COVID-19 MODERNA 12+ YRS VACCINE Unknown Completed [facility] TDAP Unknown Completed [facility] Rho (d) Immune Globulin Unknown Completed [facility] Rho (d) Immune Globulin Unknown Completed [facility] Influenza Virus Vaccine Quad IM, Preserv and ABX Free 6 MO-64 YRS (FLUCELVAX) Unknown Completed [facility] SARS-COV-2 COVID-19 VACCINE - (MODERNA) Unknown Completed [facility] SARS-COV-2 COVID-19 MODERNA 12+ YRS VACCINE Unknown Completed [facility] TDAP Unknown Completed [facility] Rho (d) Immune Globulin Unknown Completed [facility] Rho (d) Immune Globulin Unknown Completed [facility] Influenza Virus Vaccine Quad IM, Preserv and ABX Free 6 MO-64 YRS (FLUCELVAX) Unknown Completed [facility] SARS-COV-2 COVID-19 VACCINE - (MODERNA) Unknown Completed [facility] SARS-COV-2 COVID-19 MODERNA 12+ YRS VACCINE Unknown Completed [facility] TDAP Unknown Completed [facility] Rho (d) Immune Globulin Unknown Completed [facility] Rho (d) Immune Globulin Unknown Completed [facility] Influenza Virus Vaccine Quad IM, Preserv and ABX Free 6 MO-64 YRS (FLUCELVAX) Unknown Completed [facility] SARS-COV-2 COVID-19 VACCINE - (MODERNA) Unknown Completed [facility] SARS-COV-2 COVID-19 MODERNA 12+ YRS VACCINE Unknown Completed [facility] TDAP Unknown Completed [facility] Rho (d) Immune Globulin Unknown Completed [facility] Rho (d) Immune Globulin Unknown Completed [facility] Influenza Virus Vaccine Quad IM, Preserv and ABX Free 6 MO-64 YRS (FLUCELVAX) Unknown Completed [facility] SARS-COV-2 COVID-19 VACCINE - (MODERNA) Unknown Completed [facility] SARS-COV-2 COVID-19 MODERNA 12+ YRS VACCINE Unknown Completed [facility] TDAP Unknown Completed [facility] Rho (d) Immune Globulin Unknown Completed [facility] Rho (d) Immune Globulin Unknown Completed [facility] Influenza Virus Vaccine Quad IM, Preserv and ABX Free 6 MO-64 YRS (FLUCELVAX) Unknown Completed [facility] SARS-COV-2 COVID-19 VACCINE - (MODERNA) Unknown Completed [facility] SARS-COV-2 COVID-19 MODERNA 12+ YRS VACCINE Unknown Completed [facility] TDAP Unknown Completed [facility] Rho (d) Immune Globulin Unknown Completed [facility] Rho (d) Immune Globulin Unknown Completed [facility] Influenza Virus Vaccine Quad IM, Preserv and ABX Free 6 MO-64 YRS (FLUCELVAX) Unknown Completed [facility] SARS-COV-2 COVID-19 VACCINE - (MODERNA) Unknown Completed [facility] SARS-COV-2 COVID-19 MODERNA 12+ YRS VACCINE Unknown Completed [facility] TDAP Unknown Completed [facility] Rho (d) Immune Globulin Unknown Completed [facility] Rho (d) Immune Globulin Unknown Completed [facility] Influenza Virus Vaccine Quad IM, Preserv and ABX Free 6 MO-64 YRS (FLUCELVAX) Unknown Completed [facility] SARS-COV-2 COVID-19 VACCINE - (MODERNA) Unknown Completed [facility] SARS-COV-2 COVID-19 MODERNA 12+ YRS VACCINE Unknown Completed [facility] TDAP Unknown Completed [facility] Rho (d) Immune Globulin Unknown Completed [facility] Rho (d) Immune Globulin Unknown Completed [facility] Influenza Virus Vaccine Quad IM, Preserv and ABX Free 6 MO-64 YRS (FLUCELVAX) Unknown Completed [facility] SARS-COV-2 COVID-19 VACCINE - (MODERNA) Unknown Completed [facility] SARS-COV-2 COVID-19 MODERNA 12+ YRS VACCINE Unknown Completed [facility] TDAP Unknown Completed [facility] Rho (d) Immune Globulin Unknown Completed [facility] Rho (d) Immune Globulin Unknown Completed [facility] Influenza Virus Vaccine Quad IM, Preserv and ABX Free 6 MO-64 YRS (FLUCELVAX) Unknown Completed [facility] SARS-COV-2 COVID-19 VACCINE - (MODERNA) Unknown Completed [facility] SARS-COV-2 COVID-19 MODERNA 12+ YRS VACCINE Unknown Completed [facility] TDAP Unknown Completed [facility] Rho (d) Immune Globulin Unknown Completed [facility] Rho (d) Immune Globulin Unknown Completed [facility] Influenza Virus Vaccine Quad IM, Preserv and ABX Free 6 MO-64 YRS (FLUCELVAX) Unknown Completed [facility] SARS-COV-2 COVID-19 VACCINE - (MODERNA) Unknown Completed [facility] Vital Signs Vital Name Observation Time Observation Value Comments S ource Systolic blood pressure 2023-10-18 18:34:00 124 mm[Hg] [facility] Diastolic blood pressure 2023-10-18 18:34:00 88 mm[Hg] [facility] Heart rate 2023-10-18 18:15:00 103 /min [facility] Body temperature 2023-10-18 18:15:00 36.67 Malou [facility] Respiratory rate 2023-10-18 18:15:00 18 /min [facility] Body height 2023-10-18 18:15:00 157.5 cm [facility] Body weight 2023-10-18 18:15:00 82.6 kg [facility] BMI 2023-10-18 18:15:00 33.31 kg/m2 [facility] Oxygen saturation in Arterial blood by Pulse oximetry 2023-10-18 18:15:00 100 /min [facility] Systolic blood pressure 2023-10-16 20:17:00 130 mm[Hg] [facility] Diastolic blood pressure 2023-10-16 20:17:00 97 mm[Hg] [facility] Heart rate 2023-10-16 20:17:00 88 /min [facility] [facility] Body [facility] 2023-10-16 20:17:00 37.39 Malou [facility] Respiratory rate 2023-10-16 20:17:00 16 /min [facility] Body height 2023-10-16 20:17:00 157.5 cm [facility] Body weight 2023-10-16 20:17:00 81.647 kg [facility] BMI 2023-10-16 20:17:00 32.92 kg/m2 [facility] Oxygen saturation in Arterial blood by Pulse oximetry 2023-10-16 20:17:00 100 /min [facility] Systolic blood pressure 2023-10-07 14:18:00 125 mm[Hg] [facility] Diastolic blood pressure 2023-10-07 14:18:00 88 mm[Hg] [facility] Heart rate 2023-10-07 14:18:00 100 /min [facility] Body temperature 2023-10-07 14:18:00 35.56 Malou [facility] Respiratory rate 2023-10-07 14:18:00 16 /min [facility] Body height 2023-10-07 14:18:00 157.5 cm [facility] Body weight 2023-10-07 14:18:00 84.142 kg [facility] BMI 2023-10-07 14:18:00 33.93 kg/m2 [facility] Oxygen saturation in Arterial blood by Pulse oximetry 2023-10-07 14:18:00 100 /min [facility] Systolic blood pressure 2023-10-01 19:17:00 122 mm[Hg] [facility] Diastolic blood pressure 2023-10-01 19:17:00 81 mm[Hg] [facility] Heart rate 2023-10-01 19:17:00 94 /min [facility] Body temperature 2023-10-01 19:17:00 36.78 Mal[facility] Body height 2023-10-01 19:17:00 157.5 cm [facility] Body weight 2023-10-01 19:17:00 85.186 kg [facility] BMI 2023-10-01 19:17:00 34.35 kg/m2 [facility] Oxygen saturation in Arterial blood by Pulse oximetry 2023-10-01 19:17:00 100 /min [facility] Systolic blood pressure 2023-09-22 18:42:00 124 mm[Hg] [facility] Diastolic blood pressure 2023-09-22 18:42:00 87 mm[Hg] [facility] Heart rate 2023-09-22 18:42:00 88 /min [facility] Body temperature 2023-09-22 18:42:00 36.72 Malou [facility] Respiratory rate 2023-09-22 18:42:00 16 /min [facility] Body height 2023-09-22 18:42:00 157.5 cm [facility] Body weight 2023-09-22 18:42:00 85.276 kg [facility] BMI 2023-09-22 18:42:00 34.39 kg/m2 [facility] Systolic blood pressure 2023-09-07 20:01:00 118 mm[Hg] [facility] Diastolic blood pressure 2023-09-07 20:01:00 81 mm[Hg] [facility] Heart rate 2023-09-07 20:01:00 93 /min [facility] Body height 2023-09-07 20:01:00 157.5 cm [facility] Body weight 2023-09-07 20:01:00 85.276 kg [facility] BMI 2023-09-07 20:01:00 34.39 kg/m2 [facility] Oxygen saturation in Arterial blood by Pulse oximetry 2023-09-07 20:01:00 97 /min [facility] Systolic blood pressure 2023-09-06 20:05:00 124 mm[Hg] [facility] Diastolic blood pressure 2023-09-06 20:05:00 81 mm[Hg] [facility] Heart rate 2023-09-06 20:02:00 111 /min [facility] Body temperature 2023-09-06 20:02:00 36.44 Mal[facility] Body height 2023-09-06 20:02:00 157.5 cm [facility] Body weight 2023-09-06 20:02:00 85.186 kg [facility] BMI 2023-09-06 20:02:00 34.35 kg/m2 [facility] Oxygen saturation in Arterial blood by Pulse oximetry 2023-09-06 20:02:00 97 /min [facility] Systolic blood pressure 2023-08-14 00:32:00 114 mm[Hg] [facility] Diastolic blood pressure 2023-08-14 00:32:00 79 mm[Hg] [facility] Heart rate 2023-08-14 00:32:00 93 /min [facility] Body temperature 2023-08-14 00:32:00 37.22 Mal[facility] Respiratory rate 2023-08-14 00:32:00 20 /min [facility] Body height 2023-08-14 00:32:00 157.5 cm [facility] Body weight 2023-08-14 00:32:00 84.369 kg [facility] BMI 2023-08-14 00:32:00 34.02 kg/m2 [facility] Oxygen saturation in Arterial blood by Pulse oximetry 2023-08-14 00:32:00 98 /min [facility] Systolic blood pressure 2023-06-25 15:54:00 117 mm[Hg] [facility] Diastolic blood pressure 2023-06-25 15:54:00 85 mm[Hg] [facility] Heart rate 2023-06-25 15:54:00 97 /min [facility] Body temperature 2023-06-25 15:54:00 36.67 Malou [facility] Respiratory rate 2023-06-25 15:54:00 16 /min [facility] Body height 2023-06-25 15:54:00 157.5 cm [facility] Body weight 2023-06-25 15:54:00 85.231 kg [facility] BMI 2023-06-25 15:54:00 34.37 kg/m2 [facility] Oxygen saturation in Arterial blood by Pulse oximetry 2023-06-25 15:54:00 98 /min [facility] Systolic blood pressure 2023-06-16 19:05:00 133 mm[Hg] [facility] Diastolic blood pressure 2023-06-16 19:05:00 89 mm[Hg] [facility] Heart rate 2023-06-16 19:05:00 103 /min [facility] Body temperature 2023-06-16 19:05:00 36.67 Malou [facility] Respiratory rate 2023-06-16 19:05:00 18 /min [facility] Body height 2023-06-16 19:05:00 157.5 cm [facility] Body weight 2023-06-16 19:05:00 84.369 kg [facility] BMI 2023-06-16 19:05:00 34.02 kg/m2 [facility] Oxygen saturation in Arterial blood by Pulse oximetry 2023-06-16 19:05:00 98 /min [facility] Systolic blood pressure 2023-06-02 21:34:00 128 mm[Hg] [facility] Diastolic blood pressure 2023-06-02 21:34:00 88 mm[Hg] [facility] Heart rate 2023-06-02 21:33:00 104 /min [facility] Body temperature 2023-06-02 21:33:00 36.17 Mal[facility] Respiratory rate 2023-06-02 21:33:00 18 /min [facility] Body height 2023-06-02 21:33:00 157.5 cm [facility] Body weight 2023-06-02 21:33:00 83.961 kg [facility] BMI 2023-06-02 21:33:00 33.86 kg/m2 [facility] Oxygen saturation in Arterial blood by Pulse oximetry 2023-06-02 21:33:00 97 /min [facility] Systolic blood pressure 2023-05-14 15:13:00 135 mm[Hg] [facility] Diastolic blood pressure 2023-05-14 15:13:00 89 mm[Hg] [facility] Heart rate 2023-05-14 15:06:00 98 /min [facility] Body height 2023-05-14 15:06:00 157.5 cm [facility] Body weight 2023-05-14 15:06:00 84.006 kg [facility] BMI 2023-05-14 15:06:00 33.87 kg/m2 [facility] Systolic blood pressure 2023-05-12 16:01:00 141 mm[Hg] [facility] Diastolic blood pressure 2023-05-12 16:01:00 99 mm[Hg] [facility] Heart rate 2023-05-12 16:00:00 101 /min [facility] Body temperature 2023-05-12 16:00:00 36.72 Malou [facility] Respiratory rate 2023-05-12 16:00:00 18 /min [facility] Body height 2023-05-12 16:00:00 157.5 cm [facility] Body weight 2023-05-12 16:00:00 83.144 kg [facility] BMI 2023-05-12 16:00:00 33.53 kg/m2 [facility] Oxygen saturation in Arterial blood by Pulse oximetry 2023-05-12 16:00:00 99 /min [facility] Systolic blood pressure 2023-01-26 20:53:00 124 mm[Hg] [facility] Diastolic blood pressure 2023-01-26 20:53:00 83 mm[Hg] [facility] Heart rate 2023-01-26 20:53:00 97 /min [facility] Body temperature 2023-01-26 20:53:00 36.89 Malou [facility] Respiratory rate 2023-01-26 20:53:00 18 /min [facility] Body height 2023-01-26 20:53:00 157.5 cm [facility] Body weight 2023-01-26 20:53:00 81.194 kg [facility] BMI 2023-01-26 20:53:00 32.74 kg/m2 [facility] Systolic blood pressure 2023-01-11 15:18:00 129 mm[Hg] [facility] Diastolic blood pressure 2023-01-11 15:18:00 87 mm[Hg] [facility] Heart rate 2023-01-11 15:18:00 85 /min [facility] Body temperature 2023-01-11 15:18:00 36.61 Malou [facility] Respiratory rate 2023-01-11 15:18:00 18 /min [facility] Body height 2023-01-11 15:18:00 157.5 cm [facility] Body weight 2023-01-11 15:18:00 80.377 kg [facility] BMI 2023-01-11 15:18:00 32.41 kg/m2 [facility] Systolic blood pressure 2022-12-31 18:11:00 130 mm[Hg] [facility] Diastolic blood pressure 2022-12-31 18:11:00 87 mm[Hg] [facility] Heart rate 2022-12-31 18:11:00 89 /min [facility] Body temperature 2022-12-31 18:11:00 36.89 Malou [facility] Body weight 2022-12-31 18:11:00 80.559 kg [facility] BMI 2022-12-31 18:11:00 32.48 kg/m2 [facility] Systolic blood pressure 2022-12-10 17:05:00 131 mm[Hg] pt from [facility] Diastolic blood pressure 2022-12-10 17:05:00 92 mm[Hg] pt from [facility] Body temperature 2022-12-10 17:04:00 37.11 Malou [facility] Respiratory rate 2022-12-10 17:04:00 17 /min [facility] Heart rate 2022-12-10 12:15:00 82 /min [facility] Oxygen saturation in Arterial blood by Pulse oximetry 2022-12-10 12:15:00 100 /min [facility] Body weight 2022-12-09 14:19:00 89.812 kg [facility] BMI 2022-12-09 14:19:00 36.21 kg/m2 [facility] Systolic blood pressure 2022-12-08 18:30:00 123 mm[Hg] [facility] Diastolic blood pressure 2022-12-08 18:30:00 81 mm[Hg] [facility] Heart rate 2022-12-08 18:30:00 97 /min [facility] Body temperature 2022-12-08 18:30:00 36.56 Malou [facility] Respiratory rate 2022-12-08 18:30:00 18 /min [facility] Body height 2022-12-08 18:30:00 157.5 cm [facility] Body weight 2022-12-08 18:30:00 89.903 kg [facility] BMI 2022-12-08 18:30:00 36.25 kg/m2 [facility] Oxygen saturation in Arterial blood by Pulse oximetry 2022-12-08 18:30:00 99 /min [facility] Heart rate 2022-12-03 23:43:00 100 /min [facility] Oxygen saturation in Arterial blood by Pulse oximetry 2022-12-03 23:43:00 98 /min [facility] Systolic blood pressure 2022-12-03 23:15:00 130 mm[Hg] [facility] Diastolic blood pressure 2022-12-03 23:15:00 87 mm[Hg] [facility] Body temperature 2022-12-03 23:15:00 36.5 Malou [facility] Respiratory rate 2022-12-03 23:15:00 18 /min [facility] Body weight 2022-12-03 22:49:00 90.719 kg [facility] BMI 2022-12-03 22:49:00 36.58 kg/m2 [facility] Systolic blood pressure 2022-12-01 18:19:00 122 mm[Hg] [facility] Diastolic blood pressure 2022-12-01 18:19:00 87 mm[Hg] [facility] Heart rate 2022-12-01 18:19:00 113 /min [facility] Body temperature 2022-12-01 18:19:00 37 Malou [facility] Respiratory rate 2022-12-01 18:19:00 18 /min [facility] Body height 2022-12-01 18:19:00 157.5 cm [facility] Body weight 2022-12-01 18:19:00 90.084 kg [facility] BMI 2022-12-01 18:19:00 36.32 kg/m2 [facility] Heart rate 2022-11-25 21:00:00 102 /min [facility] Oxygen saturation in Arterial blood by Pulse oximetry 2022-11-25 21:00:00 99 /min [facility] Systolic blood pressure 2022-11-25 20:45:00 113 mm[Hg] [facility] Diastolic blood pressure 2022-11-25 20:45:00 61 mm[Hg] [facility] Body temperature 2022-11-25 20:45:00 37 Malou [facility] Respiratory rate 2022-11-25 20:45:00 18 /min [facility] Body height 2022-11-25 16:04:00 157.5 cm [facility] Body weight 2022-11-25 16:04:00 88.451 kg [facility] BMI 2022-11-25 16:04:00 35.67 kg/m2 [facility] Heart rate 2022-11-19 18:41:00 96 /min [facility] Oxygen saturation in Arterial blood by Pulse oximetry 2022-11-19 18:41:00 99 /min [facility] Systolic blood pressure 2022-11-19 17:40:00 102 mm[Hg] [facility] Diastolic blood pressure 2022-11-19 17:40:00 65 mm[Hg] [facility] Body temperature 2022-11-19 17:40:00 36.89 Malou [facility] Respiratory rate 2022-11-19 17:40:00 18 /min [facility] Body height 2022-11-19 17:40:00 157.5 cm [facility] Body weight 2022-11-19 17:40:00 89.359 kg [facility] BMI 2022-11-19 17:40:00 36.03 kg/m2 [facility] Systolic blood pressure 2022-11-17 18:18:00 126 mm[Hg] [facility] Diastolic blood pressure 2022-11-17 18:18:00 84 mm[Hg] [facility] Heart rate 2022-11-17 18:18:00 94 /min [facility] Body temperature 2022-11-17 18:18:00 36.5 Malou [facility] Respiratory rate 2022-11-17 18:18:00 18 /min [facility] Body height 2022-11-17 18:18:00 157.5 cm [facility] Body weight 2022-11-17 18:18:00 87.363 kg [facility] BMI 2022-11-17 18:18:00 35.23 kg/m2 [facility] Oxygen saturation in Arterial blood by Pulse oximetry 2022-11-17 18:18:00 99 /min [facility] Systolic blood pressure 2022-11-03 21:16:00 128 mm[Hg] [facility] Diastolic blood pressure 2022-11-03 21:16:00 86 mm[Hg] [facility] Heart rate 2022-11-03 21:16:00 93 /min [facility] Body temperature 2022-11-03 21:16:00 36.44 Malou [facility] Respiratory rate 2022-11-03 21:16:00 18 /min [facility] Body height 2022-11-03 21:16:00 157.5 cm [facility] Body weight 2022-11-03 21:16:00 88.905 kg [facility] BMI 2022-11-03 21:16:00 35.85 kg/m2 [facility] Systolic blood pressure 2022-11-02 15:44:00 120 mm[Hg] [facility] Diastolic blood pressure 2022-11-02 15:44:00 83 mm[Hg] [facility] Heart rate 2022-11-02 15:44:00 106 /min [facility] Body temperature 2022-11-02 15:44:00 36.78 Malou [facility] Respiratory rate 2022-11-02 15:44:00 18 /min [facility] Body weight 2022-11-02 15:44:00 88.361 kg [facility] BMI 2022-11-02 15:44:00 35.63 kg/m2 [facility] Systolic blood pressure 2022-10-23 18:37:00 130 mm[Hg] [facility] Diastolic blood pressure 2022-10-23 18:37:00 87 mm[Hg] [facility] Heart rate 2022-10-23 18:37:00 97 /min [facility] Body temperature 2022-10-23 18:37:00 36.67 Malou [facility] Respiratory rate 2022-10-23 18:37:00 18 /min [facility] Body weight 2022-10-23 18:37:00 88.905 kg [facility] BMI 2022-10-23 18:37:00 35.85 kg/m2 [facility] Systolic blood pressure 2022-10-22 18:37:00 124 mm[Hg] [facility] Diastolic blood pressure 2022-10-22 18:37:00 85 mm[Hg] [facility] Heart rate 2022-10-22 18:37:00 94 /min [facility] Body temperature 2022-10-22 18:37:00 36.72 Malou [facility] Body height 2022-10-22 18:37:00 157.5 cm [facility] Body weight 2022-10-22 18:37:00 88.089 kg [facility] BMI 2022-10-22 18:37:00 35.52 kg/m2 [facility] Heart rate 2022-10-11 19:15:00 101 /min [facility] Oxygen saturation in Arterial blood by Pulse oximetry 2022-10-11 19:15:00 98 /min [facility] Systolic blood pressure 2022-10-11 19:00:00 123 mm[Hg] [facility] Diastolic blood pressure 2022-10-11 19:00:00 68 mm[Hg] [facility] Body temperature 2022-10-11 19:00:00 36.44 Malou [facility] Respiratory rate 2022-10-11 19:00:00 16 /min [facility] Body height 2022-10-11 18:50:00 157.5 cm [facility] Body weight 2022-10-11 18:50:00 89.359 kg [facility] BMI 2022-10-11 18:50:00 36.03 kg/m2 [facility] Systolic blood pressure 2022-10-09 19:34:00 131 mm[Hg] [facility] Diastolic blood pressure 2022-10-09 19:34:00 84 mm[Hg] [facility] Heart rate 2022-10-09 19:34:00 103 /min [facility] Body temperature 2022-10-09 19:34:00 36.83 Malou [facility] Respiratory rate 2022-10-09 19:34:00 18 /min [facility] Body height 2022-10-09 19:34:00 157.5 cm [facility] Body weight 2022-10-09 19:34:00 88.089 kg [facility] BMI 2022-10-09 19:34:00 35.52 kg/m2 [facility] Systolic blood pressure 2022-09-26 03:30:00 113 mm[Hg] [facility] Diastolic blood pressure 2022-09-26 03:30:00 71 mm[Hg] [facility] Heart rate 2022-09-26 03:30:00 80 /min [facility] Oxygen saturation in Arterial blood by Pulse oximetry 2022-09-26 03:30:00 99 /min [facility] Body temperature 2022-09-26 02:20:00 36.5 Malou [facility] Respiratory rate 2022-09-26 02:20:00 18 /min [facility] Body height 2022-09-26 01:57:00 157.5 cm [facility] Body weight 2022-09-26 01:57:00 90.22 kg [facility] BMI 2022-09-26 01:57:00 36.38 kg/m2 [facility] Heart rate 2022-09-03 04:12:00 85 /min [facility] Oxygen saturation in Arterial blood by Pulse oximetry 2022-09-03 04:12:00 99 /min [facility] Systolic blood pressure 2022-09-03 04:00:00 114 mm[Hg] [facility] Diastolic blood pressure 2022-09-03 04:00:00 73 mm[Hg] [facility] Body temperature 2022-09-03 03:47:00 36.33 Malou [facility] Respiratory rate 2022-09-03 03:47:00 17 /min [facility] Body height 2022-09-03 03:47:00 157.5 cm [facility] Body weight 2022-09-03 03:47:00 88.451 kg [facility] BMI 2022-09-03 03:47:00 35.67 kg/m2 [facility] Systolic blood pressure 2022-02-09 20:41:00 126 mm[Hg] [facility] Diastolic blood pressure 2022-02-09 20:41:00 90 mm[Hg] [facility] Heart rate 2022-02-05 19:35:00 84 /min [facility] Body temperature 2022-02-05 19:35:00 36.5 Malou [facility] Respiratory rate 2022-02-05 19:35:00 18 /min [facility] Body height 2022-02-05 19:35:00 157.5 cm [facility] Body weight 2022-02-05 19:35:00 83.825 kg [facility] BMI 2022-02-05 19:35:00 33.80 kg/m2 [facility] Body Temperature 2019-06-12 18:15:00 98.4 [degF] [facility] Heart Rate 2019-06-12 18:15:00 98 /min [facility] Respiratory rate 2019-06-12 18:15:00 18 /min [facility] BP Systolic 2019-06-12 18:15:00 137 mm[Hg] [facility] BP Diastolic 2019-06-12 18:15:00 71 mm[Hg] [facility] Heart Rate 2019-06-12 15:36:00 118 /min [facility] BP Systolic 2019-06-12 15:36:00 140 mm[Hg] [facility] BP Diastolic 2019-06-12 15:36:00 80 mm[Hg] [facility] BMI (Body Mass Index) 2019-06-12 15:36:00 39.3 kg/m2 [facility] Weight 2019-06-12 15:26:00 215 [lb_av] [facility] Respiratory rate 2019-01-29 11:35:00 22 /min [facility] Procedures Procedure Date / Time Performed Performing Clinician Source POCT URINALYSIS 2023-10-18 00:00:00 Obi-Shailesh Liberty [facility] POCT GLUCOSE (AUTOMATED) 2023-10-16 22:29:00 Sacul, [facility] XR CHEST 1 VW 2023-10-16 21:12:14 Joselo [facility] POCT TEST 2023-10-16 21:01:00 Liane Josue [facility] COMP. METABOLIC PANEL ([id number]) 2023-10-16 20:53:00 Joselo [facility] CBC WITH DIFF 2023-10-16 20:53:00 Sacul [facility] URINALYSIS 2023-10-16 20:53:00 Sacul [facility] POCT GLUCOSE (AUTOMATED) 2023-10-16 20:21:00 Doc tor Unassigned, [place] [facility] PAP SMEAR-LIQUID BASED-CP 2023-09-22 19:04:00 Mirian Wall [facility] POCT SARS-COV-2 ANTIGEN (BINAX NOW) 2023-08-14 00:20:00 Palak Munguia [facility] POCT SARS-COV-2 ANTIGEN (BINAX NOW) 2023-06-25 16:16:00 Hali Lema [facility] POCT MOLECULAR FLU 2023-06-25 16:02:00 Unknown, Attend ing [facility] POCT MOLECULAR STREP 2023-06-25 16:00:00 Unknown, Atte nding [facility] FLU VACC ([id number]), 6 MO-64 YRS, .5ML, IM, QUAD (FLUCELVAX) 2023-05-12 16:10:37 Liberty Watson [facility] CONSENT FOR CONTRACEPTION 2023-01-26 05:01:00 Doctor Unassigned, [place] [facility] POCT TEST 2023-01-26 00:00:00 Adum, Mirian Greenberg [facility] POCT URINALYSIS W/O SPECIFIC GRAVITY 2023-01-11 15:24:00 Nela Bone [facility] CONSENT FOR CONTRACEPTION 2022-12-31 05:01:00 Doctor Unassigned, [place] [facility] CBC WITH DIFF 2022-12-10 08:59:00 Keven Daniel [facility] HB -MATERNAL HEMORRHAGE SCREEN 2022-12-10 08:59:00 Keven Daniel [facility] VENOUS CORD GAS 2022-12-10 02:33:00 Keven Daniel [facility] PREPARE PACKED RBC 2022-12-09 22:47:42 Adum, Mirian Greenberg [facility] CENTRAL NEURAXIAL BLOCK 2022-12-09 20:55:00 Juan Carlos Arevalo [facility] CBC WITH DIFF 2022-12-09 18:59:00 Adum, Mirian Greenberg [facility] HEPATITIS B SURFACE ANTIGEN 2022-12-09 18:59:00 Adum, Mirian Greenberg [facility] HB ABO GROUPING 2022-12-09 18:59:00 Adum, Mirian Greenberg [facility] RHO (D) IMMUNE GLOBULIN 2022-12-09 18:59:00 Keven Daniel [facility] ADC OR MAGALY ONLY - RPR 2022-12-09 18:59:00 Adum, Mirian Greenberg [facility] HIV 1/2 AG-AB WITH REFLEX 2022-12-09 18:59:00 Adum, Mirian Greenberg [facility] US PELVIS > 14 WEEKS 2022-12-09 17:09:56 Adum, Mirian Greenberg [facility] GC & CHLAMYDIA AMPLIFIED ASSAY 2022-12-09 16:55:00 Adum, Mirian Greenberg [facility] ADC ONLY - FERN TEST 2022-12-09 16:55:00 Adum, Mirian Greenberg [facility] ASSIGNMENT OF BENEFITS 2022-12-09 14:14:55 Docto r Unassigned, [place] [facility] CONSENT/REFUSAL FOR DIAGNOSIS AND TREATMENT 2022-12-09 14:14:12 Doctor Unassigned, [place] [facility] NON-STRESS TEST 2022-12-09 04:01:38 Adum, Mirian Greenberg [facility] CONSENT/REFUSAL FOR DIAGNOSIS AND TREATMENT 2022-12-03 22:40:05 Doctor Unassigned, [place] [facility] NON-STRESS TEST 2022-12-01 23:40:44 Adum, Mirian Greenberg [facility] POCT URINALYSIS W/O SPECIFIC GRAVITY 2022-12-01 18:21:00 Adum, Mirian Greenberg [facility] [facility] URINALYSIS 2022-11-25 17:55:00 Adum, Mirian Greenberg [facility] POCT GLUCOSE (AUTOMATED) 2022-11-25 17:49:00 Adum, Rochelle Greenberg [facility] CONSENT/REFUSAL FOR DIAGNOSIS AND TREATMENT 2022-11-25 15:45:52 Doctor Unassigned, Wiota [facility] ASSIGNMENT OF BENEFITS 2022-11-25 15:43:30 Docto r Unassigned, Wiota [facility] NOTICE OF PRIVACY PRACTICES 2022-11-19 17:08:50 Doctor Unassigned, Wiota [facility] CONSENT/REFUSAL FOR DIAGNOSIS AND TREATMENT 2022-11-19 17:08:27 Doctor Unassigned, Wiota [facility] POCT URINALYSIS W/O SPECIFIC GRAVITY 2022-11-17 00:00:00 Adum, Mirian Greenberg [facility] ASSIGNMENT OF BENEFITS 2022-11-09 18:26:54 Docto r Unassigned, Wiota [facility] POCT URINALYSIS W/O SPECIFIC GRAVITY 2022-11-03 00:00:00 Adum, Mirian Greenberg [facility] EXTERNAL PROVIDER RECORDS 2022-10-29 05:01:00 Doctor Unassigned, Wiota [facility] 3 HR GLUCOSE TOLERANCE TEST 2022-10-26 16:14:00 Adum, Mirian Greenberg [facility] 2 HR GLUCOSE TOLERANCE TEST 2022-10-26 15:18:00 Adum, Mirian Greenberg [facility] 1 HR GLUCOSE TOLERANCE TEST 2022-10-26 14:19:00 Adum, Mirian Greenberg [facility] GLUCOSE FASTING 2022-10-26 13:16:00 Adum, [facility] GLYCOSYL[facility] HEMOGLOBIN (A1C) 2022-10-26 13:16:00 Adum, Mirian Greenberg [facility] 3 HR GLUCOSE TOLERANCE PANEL 2022-10-26 13:16:00 Adum, Mirian Greenberg [facility] TDAP VACCINE, >11 YRS, IM 2022-10-23 18:48:09 Adum, Mirian Greenberg [facility] POCT URINALYSIS W/O SPECIFIC GRAVITY 2022-10-22 18:47:00 Adum, Mirian Greenberg [facility] POCT URINALYSIS W/O SPECIFIC GRAVITY 2022-10-12 00:00:00 Adum, Mirian Greenberg [facility] CONSENT/REFUSAL FOR DIAGNOSIS AND TREATMENT 2022-10-11 18:25:40 Doctor Unassigned, Wiota [facility] AUTHORIZATION FOR RELEASE OF PHI 2022-10-09 05:01:00 Doctor Unassigned, Wiota [facility] SGOT (ASPARTATE AMINO TRANSFER) 2022-09-26 02:29:00 Adum, Mirian Greenberg [facility] CREATININE 2022-09-26 02:29:00 Adum, Mirian Greenberg [facility] ALANINE AMINO TRANSFERASE(SGPT 2022-09-26 02:29:00 Adum, Mirian Greenberg [facility] LACTATE DEHYDROGENASE 2022-09-26 02:29:00 Adum, Mirian Greenberg [facility] URIC ACID 2022-09-26 02:29:00 Adum, Mirian Greenberg [facility] CBC WITH DIFF 2022-09-26 02:29:00 Adum, Mirian Greenberg [facility] URINALYSIS 2022-09-26 02:29:00 Adum, Mirian Greenberg [facility] PROTEIN CREAT RATIO URINE RANDOM 2022-09-26 02:29:00 Adum Mirain L [facility] CONSENT/REFUSAL FOR DIAGNOSIS AND TREATMENT 2022-09-26 01:34:01 Doctor Unassigned, Wiota [facility] ASSIGNMENT OF BENEFITS 2022-09-26 01:33:46 Docto r Unassigned, Wiota [facility] NOTICE OF PRIVACY PRACTICES 2022-09-03 03:15:26 Doctor Unassigned, Wiota [facility] CONSENT/REFUSAL FOR DIAGNOSIS AND TREATMENT 2022-09-03 03:03:10 Doctor Unassigned, Wiota [facility] GC & CHLAMYDIA AMPLIFIED ASSAY 2022-02-05 20:23:00 Fish Doug [facility] TRICHOMONAS AMPLIFIED ASSAY 2022-02-05 20:23:00 Doug Blancas [facility] POCT TEST 2022-02-05 00:00[facility]00 [facility] W/O SPECIFIC GRAVITY 2022-02-05 00:00:00 Yonny Doug [facility] REFERRAL- REQUEST/RESPONSE 2022-01-22 05:01:00 Doctor Unassigned, Wiota [facility] Encounters Start Date/Time End Date/Time Encounter Type Admission Type Attending [facility] Care Facility Care Department Encounter ID Source 2022-12-03 19:06:52 Outpatient X [facility] [id number] [facility] 2024-01-05 13:20:00 2024-01-05 13:20:00 Outpatient R OBI-SHAILESH , LIBERTY OBI-SHAILESH , [facility] [id number] [facility] 2023-11-04 14:30:00 2023-11-04 14:30:[address] [facility] [id number] [facility] 2023-11-01 10:00:00 2023-11-01 10:00:[address] [facility] [id number] [facility] 2023-10-18 13:00:00 2023-10-18 13:34:24 Outpatient R [facility]BI[facility]SHAILESH , [facility] [id number] 2023-10-18 13:00:00 2023-10-18 13:34:24 [facility] 1.2.840.114 350.1.13.10 4.2.7.2.686 [id number] 044 [id number] [facility] 2023-10-16 15:23:00 2023-10-16 17:53:00 Emergency X JOSELO, [facility] ERT [id number] [facility] 2023-10-16 15:23:00 2023-10-16 17:53:00 Emergency Sacul, [facility] 1.2.840.114 350.1.13.10 4.2.7.2.686 [id number] [facility] 2023-10-13 00:00:00 2023-10-13 00:00:00 [facility] 1.2.840.114 350.1.13.10 4.2.7.2.686 [id number] 044 [id number] [facility] 2023-10-12 00:00:00 2023-10-12 00:00:00 Letter (Out) [facility] 1.2.840.114 350.1.13.10 4.2.7.2.686 [id number] [facility] 2023-10-12 00:00:00 2023-10-12 00:00:00 Telephone RyderAdryan [facility] BUILDING 1.2.840.114 350.1.13.10 4.2.7.2.686 [id number] 044 [id number] [facility] 2023-10-07 10:00:00 2023-10-07 10:15:00 Sandblaster Paint Sprayer Visit [facility] Yeison [facility] 1.2.840.114 350.1.13.10 4.2.7.2.686 [id number] [facility] 2023-10-07 09:00:00 2023-10-07 09:30:00 Office Visit PostMane mejía Tha [facility] 1.2.840.114 350.1.13.10 4.2.7.2.686 [id number] [id number] [facility] 2023-10-07 09:00:00 2023-10-07 09:00:00 Outpatient R THA [facility] [id number] [facility] 2023-10-07 00:00:00 2023-10-07 00:00:00 Telephone Obi-Shailesh [facility] BUILDING 1.2.840.114 350.1.13.10 4.2.7.2.686 [id number] 044 [id number] [facility] 2023-10-05 00:00:00 2023-10-05 00:00:00 Telephone Obi-Shailesh [facility] NAL BUILDING 1.2.840.114 350.1.13.10 4.2.7.2.686 [id number] 044 [id number] [facility] 2023-10-03 00:00:00 2023-10-03 00:00:00 Patient Secure Msg Ibarra Kentonciaran [facility] 1.2.840.114 350.1.13.10 4.2.7.2.686 [id number] 044 [id number] [facility] 2023-10-01 15:15:00 2023-10-01 15:30:00 Sandblaster Paint Sprayer Visit 2, Adc Lab Obi-Shailesh , [facility] BUILDING 1.2.840.114 350.1.13.10 4.2.7.2.686 [id number] [facility] 2023-10-01 14:00:00 2023-10-01 15:10:37 Outpatient [facility] [id number] [facility] 2023-10-01 14:00:00 2023-10-01 14:30:00 Office Visit Dago Ibarra [facility] 1.2.840.114 350.1.13.10 4.2.7.2.686 [id number] 044 [id number] [facility] 2023-09-22 13:30:00 2023-09-22 14:07:04 Outpatient R MIRIAN [facility] [facility] [id number] [facility] 2023-09-22 13:30:00 2023-09-22 14:07:04 Office Visit Mirian Wall [facility] 1.2.840.114 350.1.13.10 4.2.7.2.686 [id number] [facility] 2023-09-14 00:00:00 2023-09-14 00:00:[address]-Sh[address]esh [facility] 1.2.840.114 350.1.13.10 4.2.7.2.686 [id number] 044 [id number] [facility] 2023-09-09 00:00:00 2023-09-09 00:00:00 Refill Obi-Shailesh [facility] BUILDING 1.2.840.114 350.1.13.10 4.2.7.2.686 [id number] 044 [id number] [facility] 2023-09-08 00:00:00 2023-09-08 00:00:00 Telephone Rosi Count includes the [facility] NIR?[facility] 1.2.840.114 350.1.13.10 4.2.7.2.686 [id number] 220 [id number] [facility] 2023-09-08 00:00:00 2023-09-08 00:00:00 Telephone Rosi Count includes the [facility] NIR?[facility] 1.2840.114 350.1.13.10 4.2.7.2.686 [id number] 220 [id number] [facility] 2023-09-07 15:00:00 2023-09-07 15:40:26 Outpatient R ROSI [facility] [id number] [facility] 2023-09-07 15:00:00 2023-09-07 15:40:26 [facility] 1.2840.114 350.1.13.10 4.2.7.2.686 [id number] 220 [id number] [facility] 2023-09-07 00:00:00 2023-09-07 00:00:00 Telephone Liberty Watson [facility] NAL BUILDING 1.2.840.114 350.1.13.10 4.2.7.2.686 [id number] 044 [id number] [facility] 2023-09-07 00:00:00 2023-09-07 00:00:00 Telephone Rosi Count includes the [facility] NIR?[facility] 1.2.840.114 350.1.13.10 4.2.7.2.686 [id number] 220 [id number] [facility] 2023-09-07 00:00:00 2023-09-07 00:00:00 Patient Secure Msg Doctor Unassigned, Wiota [facility] 1.2.840.114 350.1.13.10 4.2.7.2.686 [id number] 220 [id number] [facility] 2023-09-07 00:00:00 2023-09-07 00:00:00 Telephone Adum, Mirian Greenberg [facility] BUILDING 1.2.840.114 350.1.13.10 4.2.7.2.686 [id number] [facility] 2023-09-06 16:15:00 2023-09-06 16:30:00 Sandblaster Paint Sprayer Visit Lab, Júnior - Db Shirley [facility] 1..840.114 350.1.13.10 4.2.7.2.686 [id number] [facility] 2023-09-06 16:15:00 2023-09-06 16:15:00 Outpatient R OBRobbin-LIBERTY CASH OBRobbin-SHAILESH [facility] [id number] [facility] 2023-09-06 15:00:00 2023-09-06 15:21:14 Office Visit Obrobbin-Shailesh [facility] BUILDING 1.2.840.114 350.1.13.10 4.2.7.2.686 [id number] 044 [id number] [facility] 2023-09-06 00:00:00 2023-09-06 00:00:00 Refill Obi-Shailesh [facility] BUILDING 1..840.114 350.1.13.10 4.2.7.2.686 [id number] 044 [id number] [facility] 2023-09-06 00:00:00 2023-09-06 00:00:00 Telephone Rosi Count includes the [facility] NIR?[facility] 1.840.114 350.1.13.10 4.2.7.2.686 [id number] [facility] 2023-09-01 13:20:00 2023-09-01 13:20:00 Outpatient R OBI-SHAILESH , LIBERTY OBI-SHAILESH , [facility] [id number] [facility] 2023-08-20 00:00:00 2023-08-20 00:00:00 Refill Rosi Count includes the [facility] NIR?[facility] 1.840.114 350.1.13.10 4.2.7.2.686 [id number] 220 [id number] [facility] 2023-08-13 18:20:00 2023-08-13 18:40:00 Urgent Care Hali Lema Unknown, Attending [facility] 1.840.114 350.1.13.10 4.2.7.2.686 [id number] [facility] 2023-08-13 18:20:00 2023-08-13 18:20:00 Outpatient R HALI LEMA [facility] [id number] [facility] 2023-06-25 09:20:00 2023-06-25 10:22:05 Outpatient R CARMELO SHEEHAN [facility] [id number] [facility] 2023-06-25 09:20:00 2023-06-25 10:22:05 Urgent Care Carmelo Sheehan Unknown, Attending [facility] 1..840.114 350.1.13.10 4.2.7.2.686 [id number] [facility] 2023-06-16 13:00:00 2023-06-16 13:26:21 Outpatient R OBI-SHAILESHLIBERTY Huitron OBI-SHAILESH , [facility] [id number] [facility] 2023-06-16 13:00:00 2023-06-16 13:26:21 Office [facility] NAL BUILD[facility] 1.2.840.114 350.1.13.10 4.2.7.2.686 [id number] 044 [id number] [facility] 2023-06-16 00:00:00 2023-06-16 00:00:00 [facility] 1.2.840.114 350.1.13.10 4.2.7.2.686 [id number] 044 [id number] [facility] 2023-06-16 00:00:00 2023-06-16 00:00:00 [facility]phone [facility] 1.2.840.114 350.1.13.10 4.2.7.2.686 [id number] 044 [id number] [facility] 2023-06-15 09:00:00 2023-06-15 09:00:00 Outpatient R OBI-SHAILESHLIBERTY Huitron OBI-SHAILESH , [facility] [id number] [facility] 2023-06-14 13:00:00 2023-06-14 13:00:00 Outpatient R OBI-SHAILESH , LIBERTY [facility]AILESH [facility] [id number] [facility] 2023-06-02 15:20:00 2023-06-02 15:49:08 Outpatient R OBI-SHAILESH , LIBERTY [facility]BI[facility]SHAILESH [facility] [id number] [facility] 2023-06-02 15:20:00 2023-06-02 15:49:08 Office Visit Shirley [facility] BUILDING 1.2840.114 350.1.13.10 4.2.7.2.686 [id number] [facility] 2023-05-27 11:00:00 2023-05-27 11:00:00 Outpatient R OBI-SHAILESH , LIBERTY OBI-SHAILESH , [facility] [id number] [facility] 2023-05-26 09:20:00 2023-05-26 09:20:00 Outpatient R OBI-SHAILESH , LIBERTY OBI-SHAILESH , [facility] [id number] [facility] 2023-05-15 00:00:00 2023-05-15 00:00:00 Patient Secure Msg Doctor Unassigned, Wiota [facility] 1.84.114 350.1.13.10 4.2.7.2.686 [id number] [facility] 2023-05-14 09:00:00 2023-05-14 10:00:40 Outpatient R LEXYLizandroMAR CHARLENE [facility] [id number] [facility] 2023-05-14 09:00:00 2023-05-14 10:00:40 Office Visit Charlene Mcgovern [facility] 1..840.114 350.1.13.10 4.2.7.2.686 [id number] 220 [id number] [facility] 2023-05-12 11:00:00 2023-05-12 11:15:00 Sandblaster Paint Sprayer Visit 2, Adc Lab Shirley [facility] BUILDING 1..840.114 350.1.13.10 4.2.7.2.686 [id number] [facility] 2023-05-12 10:00:00 2023-05-12 10:47:03 Outpatient R OBI-SHAILESHLIBERTY Huitron OBI-SHAILESH , [facility] [id number] [facility] 2023-05-12 10:00:00 2023-05-12 10:47:03 Office [facility] 1.2.840.114 350.1.13.10 4.2.7.2.686 [id number] [facility] 2023-05-10 08:00:00 2023-05-10 08:00:00 Outpatient R OBI-SHAILESHLIBERTY Huitron OBI-SHAILESH [facility] [id number] [facility] 2023-03-10 13:30:00 2023-03-10 13:30:00 Outpatient R OLAYINKA [facility]ERRY [facility] [id number] [facility] 2023-02-04 00:00:00 2023-02-04 00:00:00 Patient Secure Msg Mirian Wall [facility] BUILDING 1.2.840.114 350.1.13.10 4.2.7.2.686 [id number] 134 [id number] [facility] 2023-02-02 00:00:00 2023-02-02 00:00:00 Patient Secure Msg Mirian Wall [facility] BUILDING 1.2.840.114 350.1.13.10 4.2.7.2.686 [id number] 134 [id number] [facility] 2023-01-26 15:30:00 2023-01-26 16:41:21 Outpatient R MIRIAN [facility] [facility] [id number] [facility] 2023-01-26 15:30:00 2023-01-26 16:41:21 Routine Visit Adum, Mirian Greenberg [facility] BUILDING 1.2.840.114 350.1.13.10 4.2.7.2.686 [id number] [facility] 2023-01-26 00:00:00 2023-01-26 00:00:00 Orders Only Doctor Unassigned, Wiota [facility] 1.2.840.114 350.1.13.10 4.2.7.2.686 [id number] [facility] 2023-01-11 10:00:00 2023-01-11 11:17:26 Outpatient R DENY S, NELA CJ-TERRY S, NELA [facility] [id number] [facility] 2023-01-11 10:00:00 2023-01-11 10:30:00 Office Visit Ashleigh Cruzsol [facility] 1.2840.114 350.1.13.10 4.2.7.2.686 [id number] [facility] 2022-12-31 13:00:00 2022-12-31 13:50:06 [facility]UM[facility] [id number] [facility] 2022-12-31 13:00:00 2022-12-31 13:50:06 Routine Visit Adum, Mirian [facility] BUILDING 1.2.840.114 350.1.13.10 4.2.7.2.686 [id number] 134 [id number] [facility] 2022-12-31 00:00:00 2022-12-31 00:00:00 Orders Only Doctor Unassigned, Wiota [facility] 1.2.840.114 350.1.13.10 4.2.7.2.686 [id number] [facility] 2022-12-25 14:15:00 2022-12-25 14:15:[address] [facility] [id number] [facility] 2022-12-24 00:00:00 2022-12-24 00:00:00 Telephone AdMirian madsen [facility] 1.2840.114 350.1.13.10 4.2.7.2.686 [id number] 134 [id number] [facility] 2022-12-22 13:00:00 2022-12-22 13:00:00 Outpatient R MONICA [facility] [facility] [id number] [facility] 2022-12-15 13:00:00 2022-12-15 13:00:00 Outpatient R ANGELASHARYN MIRIAN [facility] [id number] [facility] 2022-12-14 00:00:00 2022-12-14 00:00:00 Encounter 1.2.840.1 [id number] [id number] 1.2.840.114 350.1.13.10 4.2.7.2.696 [id number] [facility] 2022-12-09 09:22:00 2022-12-10 12:55:00 Hospital Encounter DanielKeven Cam AdMirian madsen [facility] 1.2840.114 350.1.13.10 4.2.7.2.686 [id number] [facility] 2022-12-09 09:22:00 2022-12-10 12:55:00 Inpatient X MIRIAN WALL [facility] [id number] [facility] 2022-12-09 15:55:00 2022-12-09 21:22:00 Anesthesia Event Juan Carlos Arevalo [facility] 1.2840.114 350.1.13.10 4.2.7.2.686 [id number] [id number] [facility] 2022-12-09 00:00:00 2022-12-09 00:00:00 Orders Only Doctor Unassigned, Wiota [facility] 1.2.840.114 350.1.13.10 4.2.7.2.686 [id number] [facility] 2022-12-09 00:00:00 2022-12-09 00:00:00 Telephone Adum, Mirian [facility] BUILDING 1.2.840.114 350.1.13.10 4.2.7.2.686 [id number] 134 [id number] [facility] 2022-12-08 13:00:00 2022-12-08 14:06:40 Outpatient R ADUM, [facility] [id number] [facility] 2022-12-08 13:00:00 2022-12-08 14:06:40 Routine Visit Room, [facility] Nst Adum, Mirian [facility] 1.2840.114 350.1.13.10 4.2.7.2.686 [id number] 134 [id number] [facility] 2022-12-03 18:04:00 2022-12-03 19:06:00 Outpatient X ADUM, [facility] [id number] [facility] 2022-12-03 18:04:00 2022-12-03 19:06:00 Emergency Adum, Mirian [facility] 1.2.840.114 350.1.13.10 4.2.7.2.686 [id number] [id number] [facility] 2022-12-02 13:00:00 2022-12-02 14:00:00 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 [id number] [facility] 2022-12-02 00:00:00 2022-12-02 00:00:00 Case Management Timo Corona [facility] 1.840.114 350.1.13.10 4.2.7.2.686 [id number] [facility] 2022-12-01 13:00:00 2022-12-01 13:53:15 Outpatient R ADSHARYN [facility] [id number] [facility] 2022-12-01 13:00:00 2022-12-01 13:53:15 Routine Visit Room, [facility] Nst Adum, [facility] 1..840.114 350.1.13.10 4.2.7.2.686 [id number] [facility] 2022-12-01 13:00:00 2022-12-01 13:00:00 Outpatient R ADUM [facility] [id number] [facility] 2022-11-25 10:37:00 2022-11-25 16:55:00 Outpatient P ADUM [facility] [id number] [facility] 2022-11-25 10:37:00 2022-11-25 16:55:00 Hospital Encounter Adum, [facility] 1.840.114 350.1.13.10 4.2.7.2.686 [id number] [facility] 2022-11-25 00:00:00 2022-11-25 00:00:00 Telephone Adum, [facility] 1..840.114 350.1.13.10 4.2.7.2.686 [id number] [facility] 2022-11-24 10:00:00 2022-11-24 10:00:[address] [facility] [id number] [facility] 2022-11-22 00:00:00 2022-11-22 00:00:00 Nurse Triage FlorindaAbigail [facility] 1.840.114 350.1.13.10 4.2.7.2.686 [id number] [facility] 2022-11-19 12:21:00 2022-11-19 13:45:00 Outpatient X MIRIAN WALL PAMEET CONSTANZA [id number] [facility] 2022-11-19 12:21:00 2022-11-19 13:45:00 Emergency AdMirian madsen [facility] 1.840.114 350.1.13.10 4.2.7.2.686 [id number] [facility] 2022-11-17 13:15:00 2022-11-17 13:42:03 Outpatient R MIRIAN WALL [facility] [id number] [facility] 2022-11-17 13:15:00 2022-11-17 13:42:03 [facility] 1..840.114 350.1.13.10 4.2.7.2.686 [id number] 134 [id number] [facility] 2022-11-09 13:27:57 2022-11-09 14:18:09 Outpatient R MIRIAN WALL CONSTANZA [id number] [facility] 2022-11-09 13:30:00 2022-11-09 13:45:00 Sandblaster Paint Sprayer Visit 2, [facility] 1.2840.114 350.1.13.10 4.2.7.2.686 [id number] [facility] 2022-11-09 00:00:00 2022-11-09 00:00:00 Orders Only Doctor Unassigned, [place] [facility] 1.2840.114 350.1.13.10 4.2.7.2.686 [id number] [facility] 2022-11-09 00:00:00 2022-11-09 00:00:00 [facility] 1.[facility]40.114 350.1.13.10 4.2.7.2.686 [id number] 134 [id number] [facility] 2022-11-03 16:00:00 2022-11-03 16:43:05 Outpatient R ADSAHRYN [facility] [id number] [facility] 2022-11-03 16:00:00 2022-11-03 16:43:05 [facility] 1.284.114 350.1.13.10 4.2.7.2.686 [id number] 134 [id number] [facility] 2022-11-02 10:00:00 2022-11-02 10:41:26 Outpatient R ADSHARYN, MIRIAN [facility] [id number] [facility] 2022-11-02 10:00:00 2022-11-02 10:41:26 Nurse Visit Nurse, [facility] [facility] 1.284.114 350.1.13.10 4.2.7.2.686 [id number] 134 [id number] [facility] 2022-10-29 00:00:00 2022-10-29 00:00:00 Orders Only Doctor Unassigned, Wiota [facility] 1.2.840.114 350.1.13.10 4.2.7.2.686 [id number] 009 [id number] [facility] 2022-10-29 00:00:00 2022-10-29 00:00:00 Telephone Adum, Mirian Greenberg [facility] 1.2.840.114 350.1.13.10 4.2.7.2.686 [id number] 134 [id number] [facility] 2022-10-29 00:00:00 2022-10-29 00:00:00 Telephone Adum, Mirian Greenberg [facility] 1.2.840.114 350.1.13.10 4.2.7.2.686 [id number] 134 [id number] [facility] 2022-10-28 00:00:00 2022-10-28 00:00:00 Telephone Adum, Mirian Greenberg [facility] 1.2.840.114 350.1.13.10 4.2.7.2.686 [id number] 134 [id number] [facility] 2022-10-28 00:00:00 2022-10-28 00:00:00 Case Management Timo Corona [facility] 1.2.840.114 350.1.13.10 4.2.7.2.686 [id number] 134 [id number] [facility] 2022-10-26 08:15:00 2022-10-26 11:25:08 Sandblaster Paint Sprayer Visit 2, Adc Lab Adsharyn, Mirian [facility] 1.2.840.114 350.1.13.10 4.2.7.2.686 [id number] [facility] 2022-10-26 08:15:00 2022-10-26 08:15:00 Outpatient R MONICA [facility] [id number] [facility] 2022-10-26 00:00:00 2022-10-26 00:00:00 Telephone Adum, Mirian ON LICENSE OF [facility] 1.2.840.114 350.1.13.10 4.2.7.2.686 [id number] 044 [id number] [facility] 2022-10-23 14:00:00 2022-10-23 14:15:00 Nurse Visit Nurse, [facility] Adum, Mirian [facility] 1.2.840.114 350.1.13.10 4.2.7.2.686 [id number] 134 [id number] [facility] 2022-10-23 08:45:00 2022-10-23 09:16:08 [facility] [id number] [facility] 2022-10-23 08:45:00 2022-10-23 09:00:00 Sandblaster Paint Sprayer Visit 2, [facility] Adum, Mirian [facility] 1.2.840.114 350.1.13.10 4.2.7.2.686 [id number] [facility] 2022-10-22 13:45:00 2022-10-22 14:35:18 Outpatient R [facility] [id number] [facility] 2022-10-22 13:45:00 2022-10-22 14:35:18 Routine Visit Adum, Mirian [facility] 1.2.840.114 350.1.13.10 4.2.7.2.686 [id number] 134 [id number] [facility] 2022-10-12 00:00:00 2022-10-12 00:00:00 Telephone Adum, Mirian Greenberg [facility] 1.2.840.114 350.1.13.10 4.2.7.2.686 [id number] 134 [id number] [facility] 2022-10-11 13:33:00 2022-10-11 14:55:00 Outpatient X CORONA-TERRY S, NELA CORONA-TERRY S, NELA [facility] [id number] [facility] 2022-10-11 13:33:00 2022-10-11 14:55:00 Emergency Corona-Terry s, Nela [facility] 1.2.840.114 350.1.13.10 4.2.7.2.686 [id number] [id number] [facility] 2022-10-09 14:00:00 2022-10-09 15:41:13 Outpatient R ADSHARYN [facility]IRIAN [facility] [id number] [facility] 2022-10-09 14:00:00 2022-10-09 15:41:13 Initial Visit AdMirian madsen [facility] 1.2840.114 350.1.13.10 4.2.7.2.686 [id number] 134 [id number] [facility] 2022-10-09 00:00:00 2022-10-09 00:00:00 Orders Only Doctor Unassigned, Wiota [facility] 1.2840.114 350.1.13.10 4.2.7.2.686 [id number] 009 [id number] [facility] 2022-09-25 21:02:00 2022-09-25 22:42:00 Outpatient X ADSHARYN MIRINA [facility] [id number] [facility] 2022-09-25 21:02:00 2022-09-25 22:42:00 Emergency Adsharyn Mirian Dionicio [facility] 1.2840.114 350.1.13.10 4.2.7.2.686 [id number] [id number] [facility] 2022-09-25 00:00:00 2022-09-25 00:00:00 Orders Only Doctor Unassigned, Wiota [facility] 1.2.840.114 350.1.13.10 4.2.7.2.686 [id number] 009 [id number] [facility] 2022-09-02 21:12:00 2022-09-02 22:20:00 Outpatient P KEVEN DANIEL [facility] [id number] [facility] 2022-09-02 21:12:00 2022-09-02 22:20:00 Hospital Encounter Keven Daniel [facility] 1.2.840.114 350.1.13.10 4.2.7.2.686 [id number] 083 [id number] [facility] 2022-08-17 00:00:00 2022-08-17 00:00:00 Outpatient GC_SWHATBIC _Cone_S PRIV PRIV [id number] [facility] 2022-08-14 00:00:00 2022-08-14 00:00:00 Outpatient GC_SWHATBIC _Cone_S PRIV PRIV [id number] [facility] 2022-08-12 00:00:00 2022-08-12 00:00:00 Outpatient GC_SWHATBIC _Cone_S PRIV PRIV [id number] [facility] 2022-08-11 00:00:00 2022-08-11 00:00:00 Outpatient GC_SWHATBIC _Cone_S PRIV PRIV [id number] [facility] 2022-07-04 11:10:00 2022-07-04 16:53:00 Emergency EM Lynda-G Rajesh garnica [facility] SIA [id number] [facility] 2022 12:30:00 2022 12:30:00 Outpatient Ibrahima Peñaloza [facility] [id number] 79 [facility] 2022-02-27 12:24:00 2022-02-27 12:24:00 Outpatient [facility]hima [facility] [id number] [facility] 2022-02-12 16:00:00 2022-02-12 16:00:00 Outpatient R DOUG [facility] [id number] [facility] 2022-02-12 00:00:00 2022-02-12 00:00:00 Telephone Yonny Doug [facility] 1.2.840.114 350.1.13.10 4.2.7.2.686 [id number] 134 [id number] [facility] 2022-02-10 00:00:00 2022-02-10 00:00:00 Telephone Timo Corona [facility] 1.2.840.114 350.1.13.10 4.2.7.2.686 [id number] 134 [id number] [facility] 2022-02-09 13:30:00 2022-02-09 13:50:52 Outpatient R TIMO CORONA [facility] [id number] [facility] 2022-02-09 13:30:00 2022-02-09 13:50:52 Outpatient R TIMO CORONA [facility] [id number] [facility] 2022-02-09 13:30:00 2022-02-09 13:50:52 Routine Visit Timo Corona [facility] 1.2.840.114 350.1.13.10 4.2.7.2.686 [id number] 134 [id number] [facility] 2022-02-09 00:00:00 2022-02-09 00:00:00 Telephone Yonny Doug [facility] 1.2.840.114 350.1.13.10 4.2.7.2.686 [id number] 134 [id number] [facility] 2022-02-05 14:30:00 2022-02-05 15:29:27 Outpatient R DOUG [facility] [id number] [facility] 2022-02-05 14:30:00 2022-02-05 15:29:27 Initial Visit Doug Blancas [facility] 1.2.840.114 350.1.13.10 4.2.7.2.686 [id number] 134 [id number] [facility] 2022-02-05 00:00:00 2022-02-05 00:00:00 Letter (Out) Doug Blancas [facility] 1.2.840.114 350.1.13.10 4.2.7.2.686 [id number] 134 [id number] [facility] 2022-02-04 00:00:00 2022-02-04 00:00:00 Telephone Doug Blancas [facility] 1.2.840.114 350.1.13.10 4.2.7.2.686 [id number] 134 [id number] [facility] 2022-01-22 00:00:00 2022-01-22 00:00:00 Orders Only Doctor Unassigned, Wiota [facility] 1.2.840.114 350.1.13.10 4.2.7.2.686 [id number] 009 [id number] [facility] 2021-10-24 11:30:00 2021-10-24 12:15:20 Office Visit Timo Corona [facility] 1.2.840.114 350.1.13.10 4.2.7.2.686 [id number] 134 [id number] [facility] 2021-10-24 11:30:00 2021-10-24 12:15:20 Outpatient R TIMO CORONA [facility] [id number] [facility] 2021-10-24 11:30:00 2021-10-24 11:30:00 Outpatient R TRITSCHLERTIMO [facility] [id number] [facility] 2021-10-24 00:00:00 2021-10-24 00:00:00 Orders Only Doctor Unassigned, Wiota [facility] 1.2.840.114 350.1.13.10 4.2.7.2.686 [id number] 009 [id number] [facility] 2019-07-15 01:27:00 2019-07-15 01:27:00 Emergency AFSHIN LUIS QER [id number] [facility] 2019-06-12 15:21:00 2019-06-12 18:15:00 Departed Emergency Room [facility] [id number] [address] [place] [address] 2012-10-10 11:00:00 2012-10-10 12:25:04 Outpatient R GUS [address] [facility] [id number] [facility] Results Test Description Test Time Test Comments Results Result Co mments [facility] W Specific [id number] 18:36:00* Test Item Value Reference Range Interpretation Comme nts POCT U SP GRAV (test code = 3255) 1.025 mg/dl 1.005-1.025 POCT PH U (test code = 3254) 5 mg/dl 5-8 POCT U LEUK EST (test code = 3263) Negative Negative - Negative POCT U NIT (test code = 3262) Negative Negative - Negati ve POCT U PROT (test code = 3259) Trace Negative - Negative POCT U GLU (test code = 3256) Negative Negative - Negati ve POCT U KETONE (test code = 3258) Negative Negative - Negative POCT U UROBILI (test code = 3260) 0.2 mg/dl 0.2-1 POCT U BILI (test code = 3261) Negative Negative - Negative POCT U BLD (test code = 3257) 3+ Negative - Negati ve POCT U COLOR (test code = 3266) Diane POCT U APPEAR (test code = 3267) Clear [facility] Urinalysis W Specific [id number] 18:36:00* Test Item Value Reference Range Interpretation Comme nts POCT U SP GRAV (test code = 3255) 1.025 mg/dl 1.005-1.025 POCT PH U (test code = 3254) 5 mg/dl 5-8 POCT U LEUK EST (test code = 3263) Negative Negative - Negative POCT U NIT (test code = 3262) Negative Negative - Negati ve POCT U PROT (test code = 3259) Trace Negative - Negative POCT U GLU (test code = 3256) Negative Negative - Negati ve POCT U KETONE (test code = 3258) Negative Negative - Negative POCT U UROBILI (test code = 3260) 0.2 mg/dl 0.2-1 POCT U BILI (test code = 3261) Negative Negative - Negative POCT U BLD (test code = 3257) 3+ Negative - Negati ve POCT U COLOR (test code = 3266) Diane POCT U APPEAR (test code = 3267) Clear [facility] GLUCOSE (AUTOMATED)2023-10-16 22:30:46* Test Item Value Reference Range Interpretation Comme nts POCT GLU (test code = 4998535549) 137 mg/dL 70-110 H Lab Interpretation (test cod e = 86656-1) Abnormal [facility]. METABOLIC PANEL (67284)2023-10-16 21:48:18* Test Item Value Reference Range Interpretation Comme nts NA (test code = 8202453514) 138 mmol/L 135-145 K (test code = 5673993973) 4.7 mmol/L 3.5-5.0 CL (test code = 7116782208) 105 mmol/L 98-108 CO2 TOTAL (test code = 5796779821) 23 mmol/L 23-31 AGAP (test code = 7897416149) 10 2-16 BUN (test code = 4806036769) 15 mg/dL 7-23 GLUCOSE (test code = 9604555130) 120 mg/dL 70-110 H CREATININE (test code = 2160-0) 0.58 mg/dL 0.50-1.04 TOTAL BILI (test code = 0986458600) 0.7 mg/dL 0.1-1.1 CALCIUM (test code = 0382571269) 9.4 mg/dL 8.6-10.6 T PROTEIN (test code = 8371665993) 9.1 g/dL 6.3-8.2 H ALBUMIN (test code = 2048250695) 4.6 g/dL 3.5-5.0 ALK PHOS (test code = 4503773903) 114 U/L 34-122 ALTv (test code = 1742-6) 94 U/L 5-35 H AST(SGOT) (test code = 6959525361) 67 U/L 13-40 H eGFR (test code = 35657-9) 128.2 mL/min/1.73m2 CKD-EPI eGFR (2020). Assuming creatinine has been stable day-to-day for at least three months, the eGFR indicates Category G1 (>= 90 mL/min/1.73 m2) Lab Interpretation (test code = 98809-2) Abnormal [facility] WITH [id number] 21:33:31* Test Item Value Reference Range Interpretation Comme nts WBC (test code = 6690-2) 7.20 4.30-11.10 RBC (test code = 789-8) 5.65 3.93-5.25 H HGB (test code = 718-7) 14.4 g/dL 11.6-15.0 HCT (test code = 4544-3) 47.1 % 35.7-45.2 H MCV (test code = 787-2) 83.4 fL 80.6-95.5 MCH (test code = 785-6) 25.5 pg 25.9-32.8 L MCHC (test code = 786-4) 30.6 g/dL 31.6-35.1 L RDW-SD (test code = 46427-0) 47.5 fL 39.0-49.9 RDW-CV (test code = 788-0) 16.5 % 12.0-15.5 H PLT (test code = 777-3) 330 166-358 MPV (test code = 57804-5) 11.9 fL 9.5-12.9 NRBC/100 WBC (test code = 3857486886) 0.0 0.0-10.0 NRBC x10^3 (test code = 9754895349) See_Comment [Automated messa ge] The system which generated this result transmitted reference range: 10*3/?L. The reference range was not used to interpret this result as normal/abnormal. GRAN MAT (NEUT) % (test code = 770-8) 50.1 % IMM GRAN % (test code = 5522736230) 0.40 % LYMPH % (test code = 736-9) 41.7 % MONO % (test code = 5905-5) 6.1 % EOS % (test code = 713-8) 1.1 % BASO % (test code = 706-2) 0.6 % GRAN MAT x10^3(ANC) (test code = 6793484044) 3.61 10*3/uL 1.88-7.09 IMM GRAN x10^3 (test code = 5207295076) 0.03 10*3/uL 0.00-0.06 LYMPH x10^3 (test code = 731-0) 3.00 10*3/uL 1.32-3.29 MONO x10^3 (test code = 742-7) 0.44 10*3/uL 0.33-0.92 EOS x10^3 (test code = 711-2) 0.08 10*3/uL 0.03-0.39 BASO x10^3 (test code = 704-7) 0.04 10*3/uL 0.01-0.07 Lab Interpretation (test code = 58680-0) [facility] 1 [id number] 21:18:26EXAM: XR CHEST 1 10/16/2023 4:03 PM HISTORY: 28 years-old Female with weakness . TECHNIQUE: Portable AP view of the chest. COMPARISON: None. FINDINGS: Lines and tubes: None. Cardiomediastinal: The cardiomediastinal silhouette is unremarkable. Lungs and pleura: The lungs are clear. No focal consolidation,pneumothorax, or pleural effusion is seen. Included osseous structures show no acute abnormality. [facility] [id number] 21:01:00* Test Item Value Reference Range Interpretation Comme nts POCT PREG (test code = 1605) Negative On board controls acceptable with C Line (test code = 3574) Yes POCT PREG LOT # (test code = 3575) [id number] POCT PREG TEST DATE ( test code = 3576) 08/04/2024 Lab Interpretation (test cod e = 43398-3) Normal [facility] GLUCOSE (AUTOMATED)2023-10-16 20:32:36* Test Item Value Reference Range Interpretation Comme nts POCT GLU (test code = 7929391729) 77 mg/dL 70-110 Lab Interpretation (test cod e = 81827-3) Normal [facility] SARS-COV-2 ANTIGEN (BINAX NOW)2023-08-14 00:36:00* Test Item Value Reference Range Interpretation Comme nts POCT SARS-COV-2 ANTIGEN (test code = 16787-4) Positive Not Detected A On board controls acceptable with C Line (test code = 3574) Yes TIM (test code = TIM) accurate developme nt and interpretation of all internal controls Lab Interpretation (test code = 73351-9) Abnormal [facility] SARS-COV-2 ANTIGEN (BINAX NOW)2023-06-25 16:17:00* Test Item Value Reference Range Interpretation Comme nts POCT SARS-COV-2 ANTIGEN (test code = 34084-5) Not Detected Not Detected On board controls acceptable with C Line (test code = 3574) Yes TIM (test code = TIM) accurate developme nt and interpretation of all internal controls [facility] Molecular [id number] 16:14:45* Test Item Value Reference Range Interpretation Comme nts POCT Molecular FluA (test co de = 49027-5) Negative Negative POCT Molecular FluB (test co de = 45026-0) Negative Negative Lab Interpretation (test cod e = 14362-9) Normal [facility] MOLECULAR [id number] 16:08:16* Test Item Value Reference Range Interpretation Comme nts POCT Molecular Strep (test c ode = 97884-5) Negative Negative Lab Interpretation (test cod e = 66167-4) Normal [facility] [id number] 20:56:00* Test Item Value Reference Range Interpretation Comme nts POCT PREG (test code = 1605) Negative On board controls acceptable with C Line (test code = 3574) Yes POCT PREG LOT # (test code = 3575) POCT PREG TEST DATE ( test code = 3576) [facility] URINALYSIS W/O SPECIFIC [id number] 15:24:00* Test Item Value Reference Range Interpretation Comme nts POCT PH U (test code = 3254) 5 mg/dl 5-8 POCT U LEUK EST (test code = 3263) ++ Negative - Negative POCT U NIT (test code = 3262) negative Negative - Negati ve POCT U PROT (test code = 3259) Trace Negative - Negat tay POCT U GLU (test code = 3256) Negative Negative - Negati ve POCT U KETONE (test code = 3258) Negative Negative - Neg ative POCT U BLD (test code = 3257) Trace Negative - Negati ve [facility] URINALYSIS W/O SPECIFIC [id number] 15:24:00* Test Item Value Reference Range Interpretation Comme nts POCT PH U (test code = 3254) 5 mg/dl 5-8 POCT U LEUK EST (test code = 3263) ++ Negative - Negative POCT U NIT (test code = 3262) negative Negative - Negati ve POCT U PROT (test code = 3259) Trace Negative - Negat tay POCT U GLU (test code = 3256) Negative Negative - Negati ve POCT U KETONE (test code = 3258) Negative Negative - Neg ative POCT U BLD (test code = 3257) Trace Negative - Negati ve [facility] with Sdwxhqpoipqk4291-92-43 12:11:12* Test Item Value Reference Range Interpretation Comme nts WBC (test code = 6690-2) 14.76 See_Comment H [Automated messa ge] The system which generated this result transmitted reference range: 4.30 - 11.10 10*3/?L. The reference range was not used to interpret this result as normal/abnormal. RBC (test code = 789-8) 3.34 See_Comment L [Automated messa ge] The system which generated this result transmitted reference range: 3.93 - 5.25 10*6/?L. The reference range was not used to interpret this result as normal/abnormal. HGB (test code = 718-7) 9.0 g/dL 11.6-15.0 L HCT (test code = 4544-3) 27.7 % 35.7-45.2 L MCV (test code = 787-2) 82.9 fL 80.6-95.5 MCH (test code = 785-6) 26.9 pg 25.9-32.8 MCHC (test code = 786-4) 32.5 g/dL 31.6-35.1 RDW-SD (test code = 55834-6) 37.9 fL 39.0-49.9 L RDW-CV (test code = 788-0) 12.5 % 12.0-15.5 PLT (test code = 777-3) 212 See_Comment [Automated YingYanga ge] The system which generated this result transmitted reference range: 166 - 358 10*3/?L. The reference range was not used to interpret this result as normal/abnormal. MPV (test code = 99999-7) 13.7 fL 9.5-12.9 H IPF % (test code = 9194345471) 12.4 % 1.3-7.7 H Platelet count measured by fluorescence method. NRBC/100 WBC (test code = 1958159107) 0.0 See_Comment [Automated magnetU ssage] The system which generated this result transmitted reference range: 0.0 - 10.0 /100 WBCs. The reference range was not used to interpret this result as normal/abnormal. NRBC x10^3 (test code = 3147222581) See_Comment [Automated YingYanga ge] The system which generated this result transmitted reference range: 10*3/?L. The reference range was not used to interpret this result as normal/abnormal. GRAN MAT (NEUT) % (test code = 770-8) 88.8 % IMM GRAN % (test code = 0920722996) 0.50 % LYMPH % (test code = 736-9) 5.2 % MONO % (test code = 5905-5) 5.4 % EOS % (test code = 713-8) 0.0 % BASO % (test code = 706-2) 0.1 % GRAN MAT x10^3(ANC) (test code = 8585221125) 13.10 10*3/uL 1.88-7.09 H IMM GRAN x10^3 (test code = 4516278991) 0.08 10*3/uL 0.00-0.06 H LYMPH x10^3 (test code = 731-0) 0.77 10*3/uL 1.32-3.29 L MONO x10^3 (test code = 742-7) 0.79 10*3/uL 0.33-0.92 EOS x10^3 (test code = 711-2) 0.03-0.39 L BASO x10^3 (test code = 704-7) 0.01-0.07 Lab Interpretation (test code = 51402-3) Abnormal [facility] H[facility]O [id number] 10:52:00 * Test Item Value Reference Range Interpretation Comme nts SCREEN (test code = 846) Negative RHIG REQUIRED? (test code = 1747) 1 Syringe Patient is a can didate for RhIg- Patient is Rh Negative and baby is Rh Positive. [facility]D) IMMUNE [id number] 03:51:49* Test Item Value Reference Range Interpretation Comme nts RHIG CANDIDATE? (test code = 5188) Yes- see comment A Patient is a candidate for RhIg- Patient is Rh Negative and baby is Rh Positive.Performe d at [facility] Laboratory Services - [facility] Blood [address] [place] [id number] Free: [phone] No. [id number] Lab Interpretation (test code = 83023-0) Abnormal [facility]2 AG-AB WITH [id number] 01:30:48* Test Item Value Reference Range Interpretation Comme nts HIV Semi-quantitative (test code = 54292-3) 0.18 Negative TIM (test code = TIM) Non-reactive for HIV-1 antigen and HIV-1/HIV-2 antibodies. ?No laboratory evidence of HIV infection. ?Repeat in 2-4 weeks if acute HIV infection is suspected. [facility] MAGALY ONLY - [id number] 01:11:37* Test Item Value Reference Range Interpretation Comme nts RPR (Qualitative) (test code = 66957-6) Nonreactive Nonreactive Lab Interpretation (test cod e = 04380-1) Normal [facility] Hospital[facility]atitis B Surface [id number] 23:04:27 * Test Item Value Reference Range Interpretation Comme nts HBsAg Semi-Quantitative (chavez t code = 5195-3) 0.04 Negative [facility] with Epbuovsatvkb6939-47-91 19:26:49* Test Item Value Reference Range Interpretation Comme nts WBC (test code = 6690-2) 8.77 See_Comment [Automated messa ge] The system which generated this result transmitted reference range: 4.30 - 11.10 10*3/?L. The reference range was not used to interpret this result as normal/abnormal. RBC (test code = 789-8) 3.58 See_Comment L [Automated messa ge] The system which generated this result transmitted reference range: 3.93 - 5.25 10*6/?L. The reference range was not used to interpret this result as normal/abnormal. HGB (test code = 718-7) 9.6 g/dL 11.6-15.0 L HCT (test code = 4544-3) 29.8 % 35.7-45.2 L MCV (test code = 787-2) 83.2 fL 80.6-95.5 MCH (test code = 785-6) 26.8 pg 25.9-32.8 MCHC (test code = 786-4) 32.2 g/dL 31.6-35.1 RDW-SD (test code = 54302-0) 37.8 fL 39.0-49.9 L RDW-CV (test code = 788-0) 12.4 % 12.0-15.5 PLT (test code = 777-3) 218 See_Comment [Automated messa ge] The system which generated this result transmitted reference range: 166 - 358 10*3/?L. The reference range was not used to interpret this result as normal/abnormal. MPV (test code = 10565-8) 13.0 fL 9.5-12.9 H NRBC/100 WBC (test code = 3730691200) 0.0 See_Comment [Automated me ssage] The system which generated this result transmitted reference range: 0.0 - 10.0 /100 WBCs. The reference range was not used to interpret this result as normal/abnormal. NRBC x10^3 (test code = 3888559179) See_Comment [Automated messa ge] The system which generated this result transmitted reference range: 10*3/?L. The reference range was not used to interpret this result as normal/abnormal. GRAN MAT (NEUT) % (test code = 770-8) 77.2 % IMM GRAN % (test code = 9563043988) 0.30 % LYMPH % (test code = 736-9) 15.6 % MONO % (test code = 5905-5) 6.5 % EOS % (test code = 713-8) 0.2 % BASO % (test code = 706-2) 0.2 % GRAN MAT x10^3(ANC) (test code = 3842405026) 6.76 10*3/uL 1.88-7.09 IMM GRAN x10^3 (test code = 9848621855) 0.03 10*3/uL 0.00-0.06 LYMPH x10^3 (test code = 731-0) 1.37 10*3/uL 1.32-3.29 MONO x10^3 (test code = 742-7) 0.57 10*3/uL 0.33-0.92 EOS x10^3 (test code = 711-2) 0.03-0.39 L BASO x10^3 (test code = 704-7) 0.01-0.07 Lab Interpretation (test code = 90917-2) [facility] [id number] 19:22:00 * Test Item Value Reference Range Interpretation Comme nts ABO & RH (test code = 20) A Negative IAT (test code = 1185) [facility]O SPECIFIC [id number] 18:21:00* Test Item Value Reference Range Interpretation Comme nts POCT PH U (test code = 3254) na 5-8 POCT U LEUK EST (test code = 3263) na Negative - Negative POCT U NIT (test code = 3262) na Negative - Negative POCT U PROT (test code = 3259) trace Negative - Negative POCT U GLU (test code = 3256) negative Negative - Negative POCT U KETONE (test code = 3258) na Negative - Negative POCT U BLD (test code = 3257) na Negative - Negative TIM (test code = TIM) accurate developme nt and interpretation of all internal controls Lab Interpretation (test code = 80335-5) Normal [facility] GLUCOSE (AUTOMATED)2022-11-25 18:00:27* Test Item Value Reference Range Interpretation Comme nts POCT GLU (test code = 0668843615) 80 mg/dL 70-110 Lab Interpretation (test cod e = 30852-1) Normal [facility] URINALYSIS W/O SPECIFIC [id number] 18:17:00* Test Item Value Reference Range Interpretation Comme nts POCT PH U (test code = 3254) n/a 5-8 POCT U LEUK EST (test code = 3263) n/a Negative - Negative POCT U NIT (test code = 3262) n/a Negative - Negati ve POCT U PROT (test code = 3259) negative Negative - Negat tay POCT U GLU (test code = 3256) negative Negative - Negati ve POCT U KETONE (test code = 3258) n/a Negative - Neg ative POCT U BLD (test code = 3257) n/a Negative - Negati ve [facility] URINALYSIS W/O SPECIFIC [id number] 05:00:00* Test Item Value Reference Range Interpretation Comme nts POCT PH U (test code = 3254) NA 5-8 POCT U LEUK EST (test code = 3263) NA Negative - N egative POCT U NIT (test code = 3262) NA Negative - Negati ve POCT U PROT (test code = 3259) NEG Negative - Negat tay POCT U GLU (test code = 3256) NEG Negative - Negati ve POCT U KETONE (test code = 3258) NA Negative - Neg ative POCT U BLD (test code = 3257) NA Negative - Negati ve [facility] URINALYSIS W/O SPECIFIC [id number] 18:47:00* Test Item Value Reference Range Interpretation Comme nts POCT PH U (test code = 3254) n/a 5-8 POCT U LEUK EST (test code = 3263) n/a Negative - Negative POCT U NIT (test code = 3262) n/a Negative - Negati ve POCT U PROT (test code = 3259) negative Negative - Negat tay POCT U GLU (test code = 3256) normal Negative - Negati ve POCT U KETONE (test code = 3258) n/a Negative - Neg ative POCT U BLD (test code = 3257) n/a Negative - Negati ve [facility] SPECIFIC [id number] 16:02:00* Test Item Value Reference Range Interpretation Comme nts POCT PH U (test code = 3254) n/a 5-8 POCT U LEUK EST (test code = 3263) n/a Negative - N egative POCT U NIT (test code = 3262) Trace Negative - Negati ve POCT U PROT (test code = 3259) 50 Negative - Negat tay POCT U GLU (test code = 3256) n/a Negative - Negati ve POCT U KETONE (test code = 3258) n/a Negative - Neg ative POCT U BLD (test code = 3257) n/a Negative - Negati ve [facility] HospitalU[facility] Acid Uirsk0007-80-74 03:12:06* Test Item Value Reference Range Interpretation Comme nts URIC ACID (test code = 3830363340) 2.6 mg/dL 2.9-6.0 L Lab Interpretation (test cod e = 52788-2) Abnormal [facility] HospitalAlanine Amino Transferase (SGPT)2022-09-26 03:12:06* Test Item Value Reference Range Interpretation Comme nts ALTv (test code = 1742-6) 11 U/L 5-35 Lab Interpretation (test cod e = 64116-0) Normal [facility] HospitalLactate Ukxdtfralgnqx6927-32-01 03:12:06* Test Item Value Reference Range Interpretation Comme nts LDH (test code = 9198356636) 123 U/L 120-246 Lab Interpretation (test cod e = 09593-4) Normal [facility] (Asparate Amino Transfer)2022-09-26 03:11:46* Test Item Value Reference Range Interpretation Comme nts AST(SGOT) (test code = 7908656434) 19 U/L 13-40 Lab Interpretation (test cod e = 44889-6) Normal [facility] Tfycjaqxum1773-04-74 03:11:45* Test Item Value Reference Range Interpretation Comme nts CREATININE (test code = 7208872436) 0.35 mg/dL 0.50-1.04 L eGFR (test code = 9562603796) 226.9 mL/min/1.73m2 TIM (test code = TIM) Association of [...] or abnormalities in imaging tests). Lab Interpretation (test code = 60706-3) Abnormal [facility] with Uyxythihobxh8865-50-68 03:09:28* Test Item Value Reference Range Interpretation Comme nts WBC (test code = 6690-2) 8.71 See_Comment [Automated messa ge] The system which generated this result transmitted reference range: 4.30 - 11.10 10*3/?L. The reference range was not used to interpret this result as normal/abnormal. RBC (test code = 789-8) 3.70 See_Comment L [Automated messa ge] The system which generated this result transmitted reference range: 3.93 - 5.25 10*6/?L. The reference range was not used to interpret this result as normal/abnormal. HGB (test code = 718-7) 11.1 g/dL 11.6-15.0 L HCT (test code = 4544-3) 32.2 % 35.7-45.2 L MCV (test code = 787-2) 87.0 fL 80.6-95.5 MCH (test code = 785-6) 30.0 pg 25.9-32.8 MCHC (test code = 786-4) 34.5 g/dL 31.6-35.1 RDW-SD (test code = 25245-9) 39.4 fL 39.0-49.9 RDW-CV (test code = 788-0) 12.5 % 12.0-15.5 PLT (test code = 777-3) 231 See_Comment [Automated messa ge] The system which generated this result transmitted reference range: 166 - 358 10*3/?L. The reference range was not used to interpret this result as normal/abnormal. MPV (test code = 99402-2) 11.8 fL 9.5-12.9 NRBC/100 WBC (test code = 5068094617) 0.0 See_Comment [Automated magnetU ssage] The system which generated this result transmitted reference range: 0.0 - 10.0 /100 WBCs. The reference range was not used to interpret this result as normal/abnormal. NRBC x10^3 (test code = 9435529444) See_Comment [Automated messa ge] The system which generated this result transmitted reference range: 10*3/?L. The reference range was not used to interpret this result as normal/abnormal. GRAN MAT (NEUT) % (test code = 770-8) 56.2 % IMM GRAN % (test code = 2351278526) 0.20 % LYMPH % (test code = 736-9) 34.4 % MONO % (test code = 5905-5) 8.0 % EOS % (test code = 713-8) 0.9 % BASO % (test code = 706-2) 0.3 % GRAN MAT x10^3(ANC) (test code = 7031512732) 4.88 10*3/uL 1.88-7.09 IMM GRAN x10^3 (test code = 3361515197) 0.00-0.06 LYMPH x10^3 (test code = 731-0) 3.00 10*3/uL 1.32-3.29 MONO x10^3 (test code = 742-7) 0.70 10*3/uL 0.33-0.92 EOS x10^3 (test code = 711-2) 0.08 10*3/uL 0.03-0.39 BASO x10^3 (test code = 704-7) 0.03 10*3/uL 0.01-0.07 Lab Interpretation (test code = 76310-6) Abnormal [facility] HospitalTHYROID STIMULATING [id number] 14:22:00 * Test Item Value Reference Range Interpretation Comme nts THYROID STIMULATING HORMONE (test code = TSH) 1.88 0.36-3.74 N Test Performed i n MicroInternational Units/mL HCG YEIMT7831-66-90 13:55:00* Test Item Value Reference Range Interpretation Comme nts HCG SERUM (test code = HCG) 91940 INTERPRETATION:V ALUES BETWEEN 15-20 milliInternational units/mL NEED TO BERETESTED WITHIN 48 HOURS. All units for these ranges are in milliInternationalunits/mL0-1 WK AFTER CONCEPTION 0-50 1-2 WKS AFTER CONCEPTION 40-3002-3 WKS AFTER CONCEPTION 100-1,0003-4 WKS AFTER CONCEPTION 500-6,0001-2 MONTHS AFTER CONCEPTION 5,000-200,0002-3 MONTHS AFTER CONCEPTION 10,000-100,0002ND TRIMESTER 3,000-50,0003RD TRIMESTER 1,000-50,000 SPECIMENS WITH AN HCG LEVEL FROM 0-6 milliInternationalunits/mL SHOULD BE CONSIDERED NEGATIVE COMPREHENSIVE METABOLIC [id number] 13:24:00* Test Item Value Reference Range Interpretation Comme nts SODIUM (test code = NA) 135 mEq/L 135-145 N POTASSIUM (test code = K) 4.0 mEq/L 3.5-5.0 N CHLORIDE (test code = CL) 100 mEq/L 100-115 N CARBON DIOXIDE (test code = CO2) 25 mEq/L 22-31 N ANION GAP (test code = GAP) 13.90 10-20 N GLUCOSE (test code = GLU) 67 mg/dL 65-110 N BLOOD UREA NITROGEN (test code = BUN) 8 mg/dL 7-18 N GLOMERULAR FILTRATION RATE (test code = GFR) 141 ml/min >60 N The Glomerular Filtration Rate is a calculated parameterbased on serum Creatinine, patient age and sex. GFR valuesless than 60 mL/min/1.73 square meters are indicative ofChronic Kidney Disease. Values less than 15 mL/min/1.73square meters indicate Kidney failure. The calculation forGFR is based on the CKD-EPI (2020) calculation. This formulais race indifferent and is the recommended formula for GFRby the National Kidney Foundation for Adults.The GFR will not calculate if the sex is unknown or if thepatient's age is <18 years. CREATININE (test code = CREAT) 0.4 mg/dL 0.5-1.0 L TOTAL PROTEIN (test code = PROT) 6.6 gm/dL 6.3-8.2 N ALBUMIN (test code = ALB) 3.0 gm/dL 3.4-4.8 L CALCIUM (test code = CA) 8.9 mg/dL 8.4-10.2 N BILIRUBIN TOTAL (test code = BILT) 0.3 mg/dL 0.2-1.0 N SGOT/AST (test code = AST) 17 units/L 15-37 N SGPT/ALT (test code = ALT) 18 units/L 12-78 N ALKALINE PHOSPHATASE TOTAL (test code = ALKP) 52 units/L 46-116 N UA RFLX MICR CULT IF IPWSQQGAM8448-65-86 13:14:00* Test Item Value Reference Range Interpretation Comme nts UA COLOR (test code = COLU) YELLOW YELLOW UA APPEARANCE (test code = APPU) CLOUDY CLEAR A UA GLUCOSE DIPSTICK (test code = DGLUU) NEGATIVE NEGATIVE UA BILIRUBIN DIPSTICK (test code = BILU) NEGATIVE NEGATIVE UA KETONE DIPSTICK (test code = KETU) NEGATIVE NEGATIVE UA SPECIFIC GRAVITY (test code = SGU) 1.020 1.001-1.035 N UA BLOOD DIPSTICK (test code = BRITTNEY) 2+ NEGATIVE A UA PH DIPSTICK (test code = ULYSSES) 8.0 5-9 UA PROTEIN DIPSTICK (test code = PROU) NEGATIVE NEGATIVE UA UROBILINIOGEN DIPSTICK (test code = URO) 0.2 EU/dL See_Comment [Automated messa ge] The system which generated this result transmitted reference range: <=1.0. The reference range was not used to interpret this result as normal/abnormal. UA NITRITE DIPSTICK (test code = MICHAEL) NEGATIVE NEGATIVE UA LEUKOCYTE ESTERASE DIPSTICK (test code = LEUU) NEG NEGATIVE UA WBC (test code = WBCU) 0-2 #/hpf NONE SEEN UA RBC (test code = RBCU) 0-2 #/hpf NONE SEEN UA EPITHELIAL CELLS (test code = EPIU) FEW #/hpf NONE SEEN UA BACTERIA (test code = BACU) MANY #/hpf NONE SEEN A UA AMORPHOUS SEDIMENT (test code = AMORU) FULL FIELD NONE SEEN Indication for culture: Suprapubic PainSpecimen Description: CLEAN CATCHCBC W/AUTO [id number] 13:02:00* Test Item Value Reference Range Interpretation Comme nts WHITE BLOOD CELL (test code = WBC) [...] pg 27.3-33.9 N MEAN CELL HGB CONCETRATION ( test code = MCHC) 34.6 gm/dL 32.0-34.2 H RED CELL DISTRIBUTION WIDTH (test code = RDW) 12.7 % 12.2-16.3 N PLATELET COUNT (test code = PLT) 214 K/mm3 134-363 N MEAN PLATELET VOLUME (test c ode = MPV) 11.5 fL 9.2-12.7 N NEUTROPHIL % (test code = NT%) 64.7 [...] = BA#) 0.0 K/mm3 RBC MORPHOLOGY REQUIRED (chavez t code = RBCM) NORMAL NORMAL PLATELET MORPHOLOGY REQUIRED (test code = PLTMR) NORMAL NORMAL - US PREG UT [id number] 00:00:00 [facility] : 1995 Sex: F Patient Name: DEYSI ALVAREZ Unit No: [id number] EXAMS: CPT CODE: [id number] US PREG UT TRANSVAGINAL 17473 PROCEDURE INFORMATION: Exam: US First Trimester (Transabdominal), [...] of the maternal pelvis and a first trime ster , less than 14 weeks 0 days, with image documentation. Transvaginal imaging was used for better evaluation of the endometrium, adnexa, and/or cervix. Real-time duplex ultrasound scan ofthe arterial or venous flow of the ovaries with B-mode, color Doppler flow and spectral waveform analysis. Complete obstetrical exam, limited duplex. Duplex exam was performed to evaluate for torsionand other vascular conditions. COMPARISON: No relevant prior [...] EGA (MSD) is 13 w 6 d Peetz-Rump length: 77.7 mm. EGA (CRL) is 13 w 6 d MATERNAL: Uterus: Uterus measures 16.3 cm x 12 cm x 9.3 cm. Cervix: Cervical length measures 3.4 cm and is closed. Right ovary/adnexa: Right ovary measures 1.9 cm x 1.4 cm x 1.7 cm. Right ovarian volume is 2.3 CM3. Left ovary/adnexa: Left ovary measures 3.2cm x 2.2 cm x 1.1 cm. Left ovarian volume is 3.8 CM3. Intraperitoneal space: No intraperitoneal free fluid. IMPRESSION: [facility] NAME: DEYSI ALVAREZ Radiology Department PHYS: Delvin [address] : 1995 AGE: 27 SEX: F [place], [place] [address] LOC: DEA PHONE #: [phone] EXAM DATE: 07/04/2022 STATUS: REG ER FAX #: [phone] RAD NO: Page 1 Signed Report (CONTINUED) Patient Name: DEYSI ALVAREZ Unit No: [id number] EXAMS: CPT CODE: [id number] US PREG UT TRANSVAGINAL 70831 (Continued) 1. Single liveintrauterine gestation corresponding to 13 weeks and 6 days by crown-rump length. 2. heart act ivity of 157 the the bpm. 3. Low-lying placenta with 6.5 x 1.1 x 3.3 cm retroplacental hemorrhage along the lower uterine segment. 3.2 x 3.5 x 0.8 cm subchorionic hemorrhage along the left anterolateral aspect of the gestational sac. at 1551 Reported and signed by: Bruna Aguilar MD CC: Rajesh Leavitt MD; Ibrahima SANCHEZ Technologist: Jane Bundy RDMS Probe: [id number] Trnscrbd D/ (1551) GCD.CPS Orig Print D/T: S: 07/04/2022 (1552) [facility] NAME: DEYSI LAVAREZ Radiology Department PHYS: Rajesh [address] : 1995 AGE: 27 SEX: F [place], [place] [address] LOC: DEA PHONE #: [phone] EXAM DATE: 07/04/2022 STATUS: REGER FAX #: [phone] RAD NO: Page 2 Signed Report Patient Name: DEYSI ALVAREZ Unit No:[id number] EXAMS: CPT CODE: [id number] US PREG UT TRANSVAGINAL 19441 (Continued) [facility] NAME: DEYSI ALVAREZ Radiology Department PHYS: THEA [address] : 1995 AGE: 27 SEX: F [place], [place] [address] LOC: DEA PHONE #: [phone] EXAM DATE: 07/04/2022 STATUS: REG ER FAX #: [phone] RAD NO: Page 3 Signed Report- DUP AB/PEL/SC/[id number] 00:00:00 [facility] : 1995 Sex: F Patient Name: DEYSI ALVAREZ Unit No: [id number] EXAMS: CPT CODE: [id number] DUP AB /PEL/SC/LTD 45969 PROCEDURE INFORMATION: Exam: US First Trimester (Transabdominal), [...] EGA (MSD) is 13 w 6 d Peetz-Rump magdaleno th: 77.7 mm. EGA (CRL) is 13 w 6 d MATERNAL: Uterus: Uterus measures 16.3 cm x 12 cm x 9.3 cm. Cervix: Cervical length measures 3.4 cm and is closed. Right ovary/adnexa: Right ovary measures 1.9 cm x1.4 cm x 1.7 cm. Right ovarian volume is 2.3 CM3. Left ovary/adnexa: Left ovary measures 3.2 cm x 2.2 cm x 1.1 cm. Left ovarian volume is 3.8 CM3. Intraperitoneal space: No intraperitoneal free fluid. IMPRESSION: [facility] NAME: DEYSI ALVAREZ Radiology Department PHYS: Rajesh [address] : 1995 AGE: 27 SEX: F [place], [place] [address] LOC: DEA PHONE #: [phone] EXAM DATE: 07/04/2022 STATUS: MARYAN ER FAX #: [phone] RAD NO: Page 1 Signed Report (CONTINUED) Patient Name: DEYSI ALVAREZ Unit No: [id number] EXAMS: CPT CODE: [id number] DUP AB/PEL/SC/LTD 53905 (Continued) 1. Single live intrauterinegestation corresponding to 13 weeks and 6 days by crown-rump length. 2. heart activity of 157the the bpm. 3. Low- lying placenta with 6.5 x 1.1 x 3.3 cm retroplacental hemorrhage along the lower uterine segment. 3.2 x 3.5 x 0.8 cm subchorionic hemorrhage along the left anterolateral aspect ofthe gestational sac. at 1551 Reported and signed by: Bruna Aguilar MD CC: Rajesh Leavitt MD; Ibrahima Peñaloza III, MD Technologist: Jane Bundy RDMS Probe: Trnscrbd D/ (1551) GCD.CPS Orig Print D/T: S: 07/04/2022(1551) [facility] NAME: DEYSI ALVAREZIANNE Radiology Department PHYS: Rajesh Ole[address] : 1995 AGE: 27 SEX: F [place] [address] LOC: BonnieERS PHONE #: [phone] EXAM DATE: 07/04/2022 STATUS: REG ER FAX #: [phone] RAD NO: Page 2 Signed Report Patient Name: DEYSI ALVAREZ Unit No: [id number] EXAMS: CPT CODE: [id number] DUP AB/PEL/SC/LTD 62987 (Continued) [facility] NAME: DEYSI ALVAREZ CATY Radiology Department PHYS: Rajesh Ole[address] : 1995 AGE: 27 SEX: F [place] [address] LOC: BonnieERS PHONE #: [phone] EXAM DATE: 07/04/2022 STATUS: REG ER FAX #: [phone] RAD NO: Page 3 Signed Report- US PREG EVAL 1ST [id number] 00:00:00 [facility] : 1995 Sex: F Patient Name: EDYSI ALVAREZ Unit No: [id number] EXAMS: CPT CODE: [id number] US PREG EVAL 1ST TRIMTR 82799 PROCEDURE INFORMATION: Exam: US First Trimester (Transabdominal), [...] of the maternal pelvis and a first trime ster , less than 14 weeks 0 days, with image documentation. Transvaginal imaging was used for better evaluation of the endometrium, adnexa, and/or cervix. Real-time duplex ultrasound scan ofthe arterial or venous flow of the ovaries with B-mode, color Doppler flow and spectral waveform analysis. Complete obstetrical exam, limited duplex. Duplex exam was performed to evaluate for torsionand other vascular conditions. COMPARISON: No relevant prior [...] EGA (MSD) is 13 w 6 d Peetz-Rump length: 77.7 mm. EGA (CRL) is 13 w 6 d MATERNAL: Uterus: Uterus measures 16.3 cm x 12 cm x 9.3 cm. Cervix: Cervical length measures 3.4 cm and is closed. Right ovary/adnexa: Right ovary measures 1.9 cm x 1.4 cm x 1.7 cm. Right ovarian volume is 2.3 CM3. Left ovary/adnexa: Left ovary measures 3.2cm x 2.2 cm x 1.1 cm. Left ovarian volume is 3.8 CM3. Intraperitoneal space: No intraperitoneal free fluid. IMPRESSION: [facility] NAME: DEYSI ALVAREZ Radiology Department PHYS: Rajesh [address] : 1995 AGE: 27 SEX: F [place], [place] [address] LOC: DEA PHONE #: [phone] EXAM DATE: 07/04/2022 STATUS: MARYAN WONG FAX #: [phone] RAD NO: Page 1 Signed Report (CONTINUED) Patient Name: YANETHDEYSI BYRNE UnitNo: [id number] EXAMS: CPT CODE: [id number] PREG EVAL 1ST TRIMTR 09268 (Continued) 1. Single liveintrauterine gestation corresponding to 13 weeks and 6 days by crown-rump length. 2. heart ac tivity of 157 the the bpm. 3. Low-lying placenta with 6.5 x 1.1 x 3.3 cm retroplacental hemorrhage along the lower uterine segment. 3.2 x 3.5 x 0.8 cm subchorionic hemorrhage along the left anterolateral aspect of the gestational sac. [id number] Reported and signed by: Bruna Aguilar MD CC: Rajesh Leavitt MD; Ibrahima Peñaloza III, MD Technologist: Jane Bundy RDMS Probe: Trnscrbd D/ (1551) GCD.CPS Orig Print D/T:S: 07/04/2022 (1551) [facility] NAME: DEYSI ALVAREZ Radiology Department PHYS: Rajesh Ole[address] : 1995 AGE: 27 SEX: F [place] [address] LOC: DEA PHONE #: [phone] EXAM DATE: 07/04/2022 STATUS: REG ER FAX #: [phone] RAD NO: Page 2 Signed Report Patient Name: DEYSI ALVAREZ Unit No: [id number] EXAMS: CPT CODE: [id number] US PREG EVAL 1ST TRIMTR 41481 (Continued) [facility] [place] [facility] NAME: DEYSI ALVAREZIANNE Radiology Department PHYS: THEA eLavittRajesh [address] : 1995 AGE: 27 SEX: F [place] [address] LOC: DEA PHONE #: [phone] EXAM DATE: 07/04/2022 STATUS: REG ER FAX #: [phone] RAD NO: Page 3 Signed Report [id number] 14:46:00* Test Item Value Reference Range Interpretation Comme nts SURGICAL (test code = SR) --RUN DATE: 03/03/22 [facility] PAGE 1 RUN TIME: 1446 Specimen Inquiry RUN USER: INTERFACE --PATIENT: DEYSI [facility]VAREZ [facility] [id number] AGE/SX: 26/F ROOM: RE02/27/22REG DR: Ibrahima Peñaloza III, MD : [birth year] BED: DIS: STATUS: REG REF TLOC: -- SPEC #: [id number] RECD: 02/27/22 [facility]: [id number] RONI: 02/27/22-10[address] [facility] DR: Ibrahima Peñaloza III, MD ENTERED: 02/27/22 SP TYPE: SURGICAL OT DR: ORDERED: ANATOMIC SPEC, SPEC TRACK, [id number] PROCEDURES: 50418 (02/27/22) TISSUES: A. PRODUCTS OF CONCEPTION - [...] 4 cassettes A1-A4.02/27/22 Technical component performed at [facility],[address], [place] [address] Unless gross only, the diagnosis is based upon microscopic examination.Immunohistochemist mitzy: This test was developed and its performance [...] 1026A, IN FORMALIN 1026, MISSED AB 002.1. -------- Signed SIGNATURE ON FILE ShahriarRush 03/03/22 1446 -- END OF REPORT POCT URINALYSIS W/O SPECIFIC [id number] 19:35:00* Test Item Value Reference Range Interpretation Comme nts POCT PH U (test code = 3254) n/a 5-8 POCT U LEUK EST (test code = 3263) n/a Negative - Negative POCT U NIT (test code = 3262) n/a Negative - Negati ve POCT U PROT (test code = 3259) negative Negative - Negat tay POCT U GLU (test code = 3256) negative Negative - Negati ve POCT U KETONE (test code = 3258) n/a Negative - Neg ative POCT U BLD (test code = 3257) n/a Negative - Negati ve [facility] [id number] 19:34:00* Test Item Value Reference Range Interpretation Comme nts POCT PREG (test code = 1605) Positive On board controls acceptable with C Line (test code = 3574) Yes POCT PREG LOT # (test code = 3575) POCT PREG TEST DATE ( test code = 3576) [facility]2019-07-15 04:00:00* Test Item Value Reference Range Interpretation Comme nts HCGQUAL (test code = HCGQUAL) NEGATIVE NEGATIVE URINE: NEGATIVE = < 20 mIU/ML; POSITIVE= >/= 20 mIU/ML SERUM: NEGATIVE = < 10 mIU/ML; POSITIVE= >/= 10 mIU/ML SOURCE (test code = SOURCE) URINE HCG INTERNAL POSITIVE CNTRL (test code = HCGIPC) PASS PASS HCG LOT # (test code = UHCGLOT) [id number] HCG EXPIRATION DATE (test code = UHCGEXP) 10-16 [id number] 03:58:00* Test Item Value Reference Range Interpretation Comme nts GLUCOSE (test code = URGLU) NEGATIVE MG/DL NEG-100 BILIRUBN (test code = URBILI) NEGATIVE NEGATIVE KETONE (test code = URKET) NEGATIVE MG/DL NEGATIVE BLOOD (test code = URBLD) NEGATIVE UR PH (test code = URPH) 7.0 5.0-7.5 PROTEIN (test code = URPRO) TRACE MG/DL NEGATIVE NITRITES (test code = URNIT) NEGATIVE NEGATIVE UROBILINGEN (test code = URURO) 0.2 EU/DL 0.2-1.0 LEUKOCYT (test code = URLEU) SMALL NEGATIVE UA COLOR (test code = UA COLOR) YELLOW YELLOW CLARITY (test code = CLARITY) CLOUDY CLEAR SP GRAV (test code = URSPGRAV) 1.027 1.000-1.025 H UAMICRO (test code = UAMICRO) YES WBC (test code = URWBC) 14 /HPF 0-5 H RBC (test code = URRBC) 5 /HPF 0-2 H UR EPI (test code = EPI) 212 /LPF BACTERIA (test code = BACTERIA) MODERATE NONE Urinalysis specimen collection [id number] 16:35:00* Test Item Value Reference Range Interpretation Comme nts Urine Source (test code = 26182-3) URINE [facility] HealthColor of Urine by [id number] 16:35:00* Test Item Value Reference Range Interpretation Comme nts Urine Color (test code = 25638-8) Yellow Yel-Diane * [facility] HealthUrine clarity [id number] 16:35:00* Test Item Value Reference Range Interpretation Comme nts Urine Appearance (test code = 59607-1) Clear Clear * [facility] HealthUrine pH measurement by automated test [id number] 16:35:00* Test Item Value Reference Range Interpretation Comme nts Urine pH (test code = 17357-9) 5.0 5.0-8.0 [facility] HealthSpecific gravity of Urine by Automated test [id number] 16:35:00* Test Item Value Reference Range Interpretation Comme nts Urine Specific [place] (test code = 76671-4) 1.029 1.005-1.030 [facility] HealthUrine protein measurement by automated test strip (mass/volume) 2019-06-12 16:35:00* Test Item Value Reference Range Interpretation Comme nts Urine Protein (test code = 06578-8) 10 mg/dL Negative * [facility] HealthUrine glucose measurement by automated test strip (mass/volume) 2019-06-12 16:35:00* Test Item Value Reference Range Interpretation Comme nts Urine Glucose (UA) (test cod e = 17556-4) Negative mg/dL Negative * [facility] HealthUrine ketones measurement by automated test strip (mass/volume) 2019-06-12 16:35:00* Test Item Value Reference Range Interpretation Comme nts Urine Ketones (test code = 70375-1) Trace mg/dL Negative * [facility] erythrocytes count by automated test strip (number/volume) 2019-06-12 16:35:00* Test Item Value Reference Range Interpretation Comme nts Urine Occult Blood (test cod e = 83638-0) Negative Negative * [facility] nitrite detection by automated test [id number] 16:35:00* Test Item Value Reference Range Interpretation Comme nts Urine Nitrite (test code = 88447-1) Negative Negative [facility] total bilirubin [facility] by automated test strip (mass/volume)2019-06-12 16:35:00* Test Item Value Reference Range Interpretation Comme nts Urine Bilirubin (test code = 38465-1) Negative mg/dL Negative [facility] urobilinogen [facility] by automated test strip (mass/volume)2019-06-12 16:35:00* Test Item Value Reference Range Interpretation Comme nts Urine Urobilinogen (test cod e = 68278-5) Negative mg/dL 0.0-1.0 [facility]rine leukocytes count by automated test strip (number/volume) 2019-06-12 16:35:00* Test Item Value Reference Range Interpretation Comme nts Urine Leukocyte Esterase (test code = 10177-2) Negative {Darcie}/uL Negative [facility] HealthMicroscopic examination of [id number] 16:35:00* Test Item Value Reference Range Interpretation Comme nts Microscopic Urinalysis (T) ( test code = 39525-2) ----- [facility] HealthUrine sediment erythrocyte count by microscopy (number/high power field)2019-06-12 16:35:00* Test Item Value Reference Range Interpretation Comme nts Urine RBC (test code = 99799-4) 0-2 /[HPF] 0-2 [facility]rine sediment leukocyte count by microscopy (number/high power field)2019-06-12 16:35:00* Test Item Value Reference Range Interpretation Comme nts Urine WBC (test code = 5821-4) 0-5 /[HPF] 0-5 [facility]rine sediment epithelial cell count by microscopy (number/high power field)2019-06-12 16:35:00* Test Item Value Reference Range Interpretation Comme nts Urine Epithelial Cells (test code = 5787-7) None Seen /[HPF] Few [facility]rine sediment crystal count by microscopy (number/high power field)2019-06-12 16:35:00* Test Item Value Reference Range Interpretation Comme nts Urine Crystals (test code = 86101-4) None Seen /[HPF] None * [facility]Urine sediment bacteria count by microscopy (number/high power field)2019-06-12 16:35:00* Test Item Value Reference Range Interpretation Comme nts Urine Bacteria (test code = 5769-5) Few /[HPF] None [facility]Urine sediment casts count by microscopy (number/low power field) 2019-06-12 16:35:00* Test Item Value Reference Range Interpretation Comme nts Urine Casts (test code = 9842-6) Present /[LPF] None * [facility]rine sediment hyaline cast count by microscopy (number/low power field)2019-06-12 16:35:00* Test Item Value Reference Range Interpretation Comme nts Urine Hyaline Casts (test co de = 5796-8) 2-5 /[LPF] 0-1 [facility] HealthYeast detection in urine sediment by light [id number] 16:35:00* Test Item Value Reference Range Interpretation Comme nts Urine Yeast (test code = 76674-2) None Seen /[HPF] None [facility] comment 16:35:00* Test Item Value Reference Range Interpretation Comme nts Urinalysis Comment (test code = 8262-8) * See_Comment [Automated messa ge] The system which generated this result transmitted reference range: *. The reference range was not used to interpret this result as normal/abnormal. [facility] comment 16:35:00* Test Item Value Reference Range Interpretation Comme nts Urine Culture Indicated (chavez t code = 8264-4) To follow [facility] HealthAutomated blood leukocyte count (number/volume)2019-06-12 16:25:00* Test Item Value Reference Range Interpretation Comme nts White Blood Count (test code = 6690-2) 11.1 10*3/uL 4.5-11.5 [facility] erythrocytes automated count (number/volume)2019-06-12 16:25:00* Test Item Value Reference Range Interpretation Comme nts Red Blood Count (test code = 789-8) 5.02 10*6/uL 3.8-5.1 [facility]Blood hemoglobin measurement (mass/volume)2019-06-12 16:25:00* Test Item Value Reference Range Interpretation Comme nts Hemoglobin (test code = 718-7) 14.2 g/dL 12.0-15.2 [facility] HealthAutomated blood hematocrit (volume fraction)2019-06-12 16:25:00* Test Item Value Reference Range Interpretation Comme nts Hematocrit (test code = 4544-3) 44.9 % 34.0-45.5 [facility] HealthAutomated erythrocyte mean corpuscular volume (MCV) measurement 2019-06-12 16:25:00* Test Item Value Reference Range Interpretation Comme nts Mean Corpuscular Volume (chavez t code = 787-2) 89 fL 80-94 [facility] HealthAutomated erythrocyte mean corpuscular hemoglobin (mass per erythrocyte)2019-06-12 16:25:00* Test Item Value Reference Range Interpretation Comme nts Mean Corpuscular Hemoglobin (test code = 785-6) 28.3 pg 27.0-33.0 [facility] HealthAutomated erythrocyte mean corpuscular hemoglobin concentration measurement (mass/fpi5182-25-79 16:25:00* Test Item Value Reference Range Interpretation Comme nts Mean Corpuscular Hemoglobin Concent (test code = 786-4) 31.6 g/dL 33.0-37.0 [facility] HealthAutomated erythrocyte distribution width epefw6547-29-32 16:25:00 * Test Item Value Reference Range Interpretation Comme nts Red Cell Distribution Width (test code = 788-0) 12.3 % 10.7-14.5 [facility] HealthAutomated blood platelet count (count/volume)2019-06-12 16:25:00 * Test Item Value Reference Range Interpretation Comme nts Platelet Count (test code = 777-3) 295 10*3/uL 150-450 [facility] HealthAutomated blood platelet mean volume xmmkbjykcwf6118-23-57 16:25:00* Test Item Value Reference Range Interpretation Comme nts Mean Platelet Volume (test c ode = 85608-5) 11.0 5.7-10.7 [facility] comment [id number] 16:25:00* Test Item Value Reference Range Interpretation Comme nts Manual Differential (test co de = 8265-1) ----- [facility] HealthManual blood segmented neutrophils/100 nqucyxufec8566-22-88 16:25:00* Test Item Value Reference Range Interpretation Comme nts Neutrophils % (Manual) (test code = 769-0) 47 % 42-75 [facility] HealthManual blood band neutrophils form/100 wvdlixayqv2705-38-98 16:25:00* Test Item Value Reference Range Interpretation Comme nts Band Neutrophils % (Manual) (test code = 764-1) 4 % 5-11 [facility]Manual blood lymphocytes/100 szwiknkmku4472-86-67 16:25:00* Test Item Value Reference Range Interpretation Comme nts Lymphocytes % (Manual) (test code = 737-7) 43 % 21-51 [facility]Manual blood monocytes/100 xxjedglufq7639-36-46 16:25:00* Test Item Value Reference Range Interpretation Comme nts Monocytes % (Manual) (test c ode = 744-3) 4 % 1-9 [facility]Manual blood eosinophil count as percentage of total leukocytes 2019-06-12 16:25:00* Test Item Value Reference Range Interpretation Comme nts Eosinophils % (Manual) (test code = 714-6) 1 % 0-7 [facility]Manual blood basophils/100 hphvtunrnu3209-76-46 16:25:00* Test Item Value Reference Range Interpretation Comme nts Basophils % (Manual) (test c ode = 707-0) 1 % 0-2 [facility]Blood platelet detection by light nororpeocd8150-61-72 16:25:00* Test Item Value Reference Range Interpretation Comme nts Platelet Estimate (test code = 9317-9) Adequate [facility]Blood erythrocyte morphology finding rgxrtpcrklnqqs3532-63-39 16:25:00* Test Item Value Reference Range Interpretation Comme nts Red Blood Cell Morphology (t est code = 6742-1) Normal [facility] HealthSerum or plasma sodium measurement (moles/volume)2019-06-12 16:25:00* Test Item Value Reference Range Interpretation Comme nts Sodium Level (test code = 2951-2) 136 mmol/L 136-145 [facility] HealthSerum or plasma potassium measurement (moles/volume)2019-06-12 16:25:00* Test Item Value Reference Range Interpretation Comme nts Potassium Level (test code = 2823-3) 3.9 mmol/L 3.5-5.1 [facility] HealthSerum or plasma chloride measurement (moles/volume)2019-06-12 16:25:00* Test Item Value Reference Range Interpretation Comme nts Chloride Level (test code = 2075-0) 103 mmol/L 98-107 [facility] HealthSerum or plasma total carbon dioxide measurement (moles/volume) 2019-06-12 16:25:00* Test Item Value Reference Range Interpretation Comme nts Carbon Dioxide Level (test c ode = 8-9) 23 mmol/L 22-29 [facility] HealthSerum or plasma anion gap determination (moles/volume)2019-06-12 16:25:00* Test Item Value Reference Range Interpretation Comme nts Anion Gap (test code = 42267-4) 14 8-18 [facility] HealthSerum or plasma urea nitrogen measurement (mass/volume)2019-06-12 16:25:00* Test Item Value Reference Range Interpretation Comme nts Blood Urea Nitrogen (test co de = 3094-0) 10 mg/dL 7-19 [facility]Serum or plasma creatinine measurement (mass/volume)2019-06-12 16:25:00* Test Item Value Reference Range Interpretation Comme nts Creatinine (test code = 2160-0) 0.7 mg/dL 0.6-1.1 [facility] [id number] 16:25:00* Test Item Value Reference Range Interpretation Comme nts Estimat Glomerular Filtratio n Rate (test code = 78555-1) 111 90-142 [facility] HealthSerum or plasma glucose measurement (mass/volume)2019-06-12 16:25:00* Test Item Value Reference Range Interpretation Comme nts Glucose Level (test code = 2345-7) 127 mg/dL 60-100 [facility]um or plasma calcium measurement (mass/volume)2019-06-12 16:25:00* Test Item Value Reference Range Interpretation Comme nts Calcium Level (test code = 76643-1) 9.5 mg/dL 8.4-10.2 [facility]Serum or plasma total bilirubin measurement (mass/volume) 2019-06-12 16:25:00* Test Item Value Reference Range Interpretation Comme nts Total Bilirubin (test code = 1975-2) 0.5 mg/dL 0.2-1.2 [facility] HealthSerum or plasma aspartate aminotransferase measurement (enzymatic activity/volume)2019-06-12 16:25:00* Test Item Value Reference Range Interpretation Comme nts Aspartate Amino Transf (AST/ SGOT) (test code = 1920-8) 87 U/L 5-34 [facility] HealthSerum or plasma alanine aminotransferase measurement (enzymatic activity/volume)2019-06-12 16:25:00* Test Item Value Reference Range Interpretation Comme nts Alanine Aminotransferase (AL T/SGPT) (test code = 1742-6) 168 U/L 0-55 [facility] HealthSerum or plasma protein measurement (mass/volume)2019-06-12 16:25:00* Test Item Value Reference Range Interpretation Comme nts Total Protein (test code = 2885-2) 7.9 g/dL 6.4-8.3 [facility]Serum or plasma albumin measurement (mass/volume)2019-06-12 16:25:00* Test Item Value Reference Range Interpretation Comme nts Albumin (test code = 1751-7) 4.4 g/dL 3.5-5.0 [facility]um or plasma alkaline phosphatase measurement (enzymatic activity/volume)2019-06-12 16:25:00* Test Item Value Reference Range Interpretation Comme nts Alkaline Phosphatase (test c ode = 6768-6) 78 U/L 40-150 [facility] HealthSerum or plasma lipase measurement (enzymatic activity/volume) 2019-06-12 16:25:00* Test Item Value Reference Range Interpretation Comme nts Lipase (test code = 3040-3) 21 U/L 8-78 [facility] 1 VIEW [id number] 07:15:[address] [id number] IMAGING REPORTPa tient Name: DEYSI ALVAREZ BDate of Service: [id number]: 23 Sex: F Order #: [id number] [facility] 1995 [facility] Number: [id number] Record Number: [id number] Hospital Number: [id number] Physician: GABBY THOMASOrderyvonne Physician: JOAQUIN CODY ONE VIEW 12/25/2018HISTORY: Left chest painCOMPARISON: NoneCardiac, hilar, and mediastinal structures are normal. Lungs arewell-aerated and clear. No effusion or pneumothorax. No acute bony or softtissue abnormalities are identified.IMPRESSION:Clear chest.The study was performed on an emergent basis and preliminary report faxedto the Emergency Department by the [facility] Radiology [facility] service nearthe time of the exam.Electronically Signed By: Arturo Moore M.D., 12/25/2018 7:13 AMLegallmartha authenticated by JOY FRANCO [id number]:13:[id number] 02:24:00* Test Item Value Reference Range Interpretation Comme nts %CKMB (test code = %MB) TNP % UNABLE TO CALCULATE RESULTS DUE TO CKMB <0.22 NG/ML. CKMB (test code = CKMB) <0.22 NG/ML 0.22-2.4 CK (test code = CK) 55 U/L 30-135 CKINTERP (test code = CKINTERP) NEGATIVE Negative TROPONIN I - [id number] 02:23:00* Test Item Value Reference Range Interpretation Comme nts TROP-I (test code = TROP-I) <0.012 ng/ml 0.012-0.033 INTERPRETI VE DATA A TROPONIN OF LESS THAN 0.034 NG/ML IS CONSIDERED NEGATIVE A TROPONIN OF 0.034 - 0.119 NG/ML IS CONSIDERED GRAYZONE A TROPONIN =/> 0.120 NG/ML IS CONSIDERED POSITIVE [id number] 02:17:00* Test Item Value Reference Range Interpretation Comme nts LIPASE (test code = LIPA) 84 U/L 23-300 [id number] 02:17:00* Test Item Value Reference Range Interpretation Comme nts SODIUM (test code = NA) 142 MMOL/L 137-145 K+ (test code = KSERUM) 3.8 MMOL/L 3.5-5.1 PLEASE NOTE NEW REFERENCE RANGE(S) IN EFFECT EFFECTIVE 01/30/2010 - NEW ANALYZER (KaleidoscopeS 5600) CHLORIDE (test code = CL) 105 MMOL/L 98-107 CO2 (test code = CO2) 27 MMOL/L 22-30 BUN (test code = BUN) 9 MG/DL 7-17 CREA (test code = CREA) 0.5 MG/DL 0.7-1.2 L GLUCOSE (test code = GLUCOSE) 142 MG/DL 70-99 H Fasting glucos e normal <100 MG/DL- [employer] [employer] recommendation CALCIUM (test code = CABLOOD) 9.6 MG/DL 8.4-10.2 TOTPROT (test code = TOTPROT) 7.6 G/DL 6.3-8.2 ALBUMIN (test code = ALBSERUM) 4.4 G/DL 3.5-5.0 BILITOT (test code = BILITOT) 0.4 MG/DL 0.2-1.3 AST (test code = AST) 74 U/L 15-46 H PHOSALK (test code = PHOSALK) 87 U/L 38-126 ALT (test code = ALT) 143 U/L 13-69 H GFR (test code = GFR) 166 mL/min/1.73m2 A GFR of >90 mL/min/1.73m2 is considered normal. D-DIMER, [id number] 02:14:00* Test Item Value Reference Range Interpretation Comme nts D-DIMER (test code = DDIMER) 0.29 ug/mL (FEU) 0.27-0.50 VALUES OF QUANT ITATIVE D-DIMER LESS THAN 0.4 UG/ML HAVE BEEN REPORTED TO BE ASSOCIATED WITH A LOW PROBABILITY OF DEEP VEIN THROMBOSIS/PULMONARYEMB OLISM. THIS TEST ALONE SHOULD NOT BE USED TO RULE OUT DVT/PE. B-HCG QUAL (KIT)2018-12-25 02:02:00* Test Item Value Reference Range Interpretation Comme nts HCGQUAL (test code = HCGQUAL) NEGATIVE NEGATIVE URINE: NEGATIVE = < 20 mIU/ML; POSITIVE= >/= 20 mIU/ML SERUM: NEGATIVE = < 10 mIU/ML; POSITIVE= >/= 10 mIU/ML SOURCE (test code = SOURCE) SERUM HCG INTERNAL POSITIVE CNTRL (test code = HCGIPC) PASS PASS HCG LOT # (test code = UHCGLOT) [id number] HCG EXPIRATION DATE (test code = UHCGEXP) 05-27-20 [id number] 02:01:00* Test Item Value Reference Range Interpretation Comme nts GLUCOSE (test code = URGLU) 100 MG/DL NEG-100 BILIRUBN (test code = URBILI) NEGATIVE NEGATIVE KETONE (test code = URKET) NEGATIVE MG/DL NEGATIVE BLOOD (test code = URBLD) NEGATIVE UR PH (test code = URPH) 5.5 5.0-7.5 PROTEIN (test code = URPRO) NEGATIVE MG/DL NEGATIVE NITRITES (test code = URNIT) NEGATIVE NEGATIVE UROBILINGEN (test code = URURO) 0.2 EU/DL 0.2-1.0 LEUKOCYT (test code = URLEU) NEGATIVE NEGATIVE UA COLOR (test code = UA COLOR) YELLOW YELLOW CLARITY (test code = CLARITY) CLEAR CLEAR SP GRAV (test code = URSPGRAV) 1.022 1.000-1.025 UAMICRO (test code = UAMICRO) NO [id number] 01:50:00* Test Item Value Reference Range Interpretation Comme nts WBC (test code = WBC) 9.1 K/UL 3.5-10.9 RBC (test code = RBC) 4.77 M/UL 4.0-5.0 HGB (test code = HGB) 13.8 G/DL 11.5-15.5 HCT (test code = HCT) 42.1 % 34-46 MCV (test code = MCV) 88.3 FL 80-98 MCH (test code = MCH) 28.9 PG 28-32 MCHC (test code = MCHC) 32.8 G/DL 32.5-36.5 RDW (test code = RDW) 12.1 % 11.5-14.5 PLT (test code = PLT) 273 K/UL 150-450 MPV (test code = MPV) 11.1 FL 7.4-10.4 H MANDIFF (test code = MANDIFF) NO SCAN (test code = SCAN) NO NEUT% (test code = NEUT%) 45.5 % 40-75 LYMPH% (test code = LYMPH%) 44.6 % 24-44 H MONO% (test code = MONO%) 7.4 % 0-13 EOS% (test code = EOS%) 1.9 % 0-4 BASO % (test code = BASO%) 0.3 % 0-2 IG (test code = IG) 0 % 0-1 IG% (test code = IG%) 0.3 % 0-1 IG% = Metamyeloc ytes, Myelocytes, and Promyelocytes. (Immature neutrophils not including "bands".) > 3% IG indicates risk of sepsis NRBC% (test code = NRBC%) 0 /100 WBC ABS NEUT (test code = NEUT) 4.2 K/UL 1.2-7.2 PATHOLOGY [id number] 08:19:00TISSUE CONSULTATION REPORTBAPTVALLEY REGIONAL MEDICAL CENTERDEPARTMENT OF PATHOLOGYP.[address], [place] [address] ISH PIRES M.D.ROBERT L. HUTTON, M.D.CHARLES E. BURNS, M.D. 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.- NEGATIVE FOR HELICOBACTER FORMS BY JENNIFER STAIN.- NEGATIVE FOR INTESTINAL METAPLASIA BY AB/PAS STAIN.- NEGATIVE FOR DYSPLASIA OR MALIGNANCY.MICROSCOPIC EXAMINAT ION:Performed; see diagnosis.GROSS APPEARANCE:The specimen is labeled "random gastric biopsy." Submitted informalin are two yellow-leon mucosal fragments measuring 0.5 x 0.3 x0.2 cm in aggregate, ET one block wraps.PATHOLOGIST: Mane Ledesma Electronically Signed: 09/01/[id number] 07:46:00* Test Item Value Reference Range Interpretation Comme nts SODIUM (test code = NA) 142 MMOL/L 137-145 K+ (test code = KSERUM) 3.4 MMOL/L 3.5-5.1 L PLEASE NOTE NEW REFERENCE RANGE(S) IN EFFECT EFFECTIVE 01/30/2010 - NEW ANALYZER ([employer] 5600) CHLORIDE (test code = CL) 105 MMOL/L 98-107 CO2 (test code = CO2) 26 MMOL/L 22-30 BUN (test code = BUN) 6 MG/DL 7-17 L CREA (test code = CREA) 0.6 MG/DL 0.7-1.2 L GLUCOSE (test code = GLUCOSE) 87 MG/DL 70-99 Fasting glucos e normal <100 MG/DL- [place] [employer] recommendation CALCIUM (test code = CABLOOD) 9.2 MG/DL 8.4-10.2 TOTPROT (test code = TOTPROT) 6.7 G/DL 6.3-8.2 ALBUMIN (test code = ALBSERUM) 3.9 G/DL 3.5-5.0 BILITOT (test code = BILITOT) 0.6 MG/DL 0.2-1.3 AST (test code = AST) 104 U/L 15-46 H PHOSALK (test code = PHOSALK) 117 U/L 38-126 ALT (test code = ALT) 266 U/L 13-69 H GFR (test code = GFR) 134 mL/min/1.73m2 A GFR of >90 mL/min/1.73m2 is considered normal. [id number] 07:19:00* Test Item Value Reference Range Interpretation Comme nts WBC (test code = WBC) 9.2 K/UL 3.5-10.9 RBC (test code = RBC) 4.99 M/UL 4.0-5.0 HGB (test code = HGB) 13.9 G/DL 11.5-15.5 HCT (test code = HCT) 42.9 % 34-46 MCV (test code = MCV) 86.0 FL 80-98 MCH (test code = MCH) 27.9 PG 28-32 L MCHC (test code = MCHC) 32.4 G/DL 32.5-36.5 L RDW (test code = RDW) 12.4 % 11.5-14.5 PLT (test code = PLT) 261 K/UL 150-450 MPV (test code = MPV) 11.0 FL 7.4-10.4 H MANDIFF (test code = MANDIFF) NO SCAN (test code = SCAN) NO NEUT% (test code = NEUT%) 49.5 % 40-75 LYMPH% (test code = LYMPH%) 37.9 % 24-44 MONO% (test code = MONO%) 9.5 % 0-13 EOS% (test code = EOS%) 2.3 % 0-4 BASO % (test code = BASO%) 0.4 % 0-2 IG (test code = IG) 0 % 0-1 IG% (test code = IG%) 0.4 % 0-1 IG% = Metamyeloc ytes, Myelocytes, and Promyelocytes. (Immature neutrophils not including "bands".) > 3% IG indicates risk of sepsis NRBC% (test code = NRBC%) 0 /100 WBC ABS NEUT (test code = NEUT) 4.6 K/UL 1.2-7.2 ACUTE HEPATITIS [id number] 03:34:00* Test Item Value Reference Range Interpretation Comme nts HAAB,M (test code = HAAB,M) NEGATIVE NEGATIVE HBCABM (test code = HBCABM) NEGATIVE NEGATIVE A GRAYZONE resul t is presumptive evidence of IgM anti-HBc. Patients with specimens exhibiting mccain zone reactive test results should be retested at approximately one-week intervals. HCV (test code = HCV) NEGATIVE NEGATIVE Hepatitis C Anti body test is for screening purposes only. All reactives will be confirmed by additional testing. HEPBSAG (test code = HEPBSAG) NEGATIVE NEGATIVE Hepatitis B Surf samreen Antigen is for screening purpose only. All reactives will be sent to reference lab for confirmation. [id number] 17:52:00* Test Item Value Reference Range Interpretation Comme nts SODIUM (test code = NA) 141 MMOL/L 137-145 K+ (test code = KSERUM) 4.0 MMOL/L 3.5-5.1 PLEASE NOTE NEW REFERENCE RANGE(S) IN EFFECT EFFECTIVE 01/30/2010 - NEW ANALYZER (VITROS 5600) CHLORIDE (test code = CL) 103 MMOL/L 98-107 CO2 (test code = CO2) 29 MMOL/L 22-30 BUN (test code = BUN) 7 MG/DL 7-17 CREA (test code = CREA) 0.5 MG/DL 0.7-1.2 L GLUCOSE (test code = GLUCOSE) 120 MG/DL 70-99 H Fasting glucos e normal <100 MG/DL- [place] [employer] recommendation CALCIUM (test code = CABLOOD) 9.3 MG/DL 8.4-10.2 TOTPROT (test code = TOTPROT) 7.1 G/DL 6.3-8.2 ALBUMIN (test code = ALBSERUM) 4.0 G/DL 3.5-5.0 BILITOT (test code = BILITOT) 0.4 MG/DL 0.2-1.3 AST (test code = AST) 147 U/L 15-46 H PHOSALK (test code = PHOSALK) 135 U/L 38-126 H ALT (test code = ALT) 355 U/L 13-69 H GFR (test code = GFR) 166 mL/min/1.73m2 A GFR of >90 mL/min/1.73m2 is considered normal. [id number] 17:52:00* Test Item Value Reference Range Interpretation Comme nts LIPASE (test code = LIPA) 65 U/L 23-300 [id number] 17:33:00* Test Item Value Reference Range Interpretation Comme nts WBC (test code = WBC) 9.6 K/UL 3.5-10.9 RBC (test code = RBC) 4.72 M/UL 4.0-5.0 HGB (test code = HGB) 13.6 G/DL 11.5-15.5 HCT (test code = HCT) 40.7 % 34-46 MCV (test code = MCV) 86.2 FL 80-98 MCH (test code = MCH) 28.8 PG 28-32 MCHC (test code = MCHC) 33.4 G/DL 32.5-36.5 RDW (test code = RDW) 12.3 % 11.5-14.5 PLT (test code = PLT) 275 K/UL 150-450 MPV (test code = MPV) 11.2 FL 7.4-10.4 H MANDIFF (test code = MANDIFF) NO SCAN (test code = SCAN) NO NEUT% (test code = NEUT%) 64.1 % 40-75 LYMPH% (test code = LYMPH%) 24.6 % 24-44 MONO% (test code = MONO%) 8.5 % 0-13 EOS% (test code = EOS%) 2.1 % 0-4 BASO % (test code = BASO%) 0.3 % 0-2 IG (test code = IG) 0 % 0-1 IG% (test code = IG%) 0.4 % 0-1 IG% = Metamyeloc ytes, Myelocytes, and Promyelocytes. (Immature neutrophils not including "bands".) > 3% IG indicates risk of sepsis NRBC% (test code = NRBC%) 0 /100 WBC ABS NEUT (test code = NEUT) 6.1 K/UL 1.2-7.2 CT ABDOMEN/PELVIS [id number] 07:30:[address] [id number] IMAGING REPORTPatient Name: DEYSI ALVAREZ BDate of Service: [id number]: 23 Sex: F Order #: 600 [facility]1995 [facility] Number: [id number] Record Number: [id number] Hospital Number: [id number] Physician: KIERA DELA CRUZ Physician: FRANK ASH ABDOMEN/PELVIS WITH 08/30/2018 12:33AMHISTORY: Abd pain without fever . Abdominal pain with nausea andvomiting.COMPARISON: 08/20/2018TECH NIQUE: IV contrast-enhanced CT imaging of the abdomen and pelvis. ThisCT exam was performed using one or more of the following dose reductiontechniques: Automated exposure control, adjustment of the mA and/or KVaccording to patient size, or use of iterative reconstruction technique.FINDINGS:There is mild bibasilar atelectasis. Heart size is normal.Within the dome of the right lobe of the liver isan 11 mm hyperdenselesion that is similar to [...] 7:28 AMLegally authenticated by TORRIE CARRION 2018-08-30 07:28:[id number] 21:58:00* Test Item Value Reference Range Interpretation Comme nts GLUCOSE (test code = URGLU) NEGATIVE MG/DL NEG-100 BILIRUBN (test code = URBILI) NEGATIVE NEGATIVE KETONE (test code = URKET) 80 MG/DL NEGATIVE BLOOD (test code = URBLD) NEGATIVE UR PH (test code = URPH) 5.5 5.0-7.5 PROTEIN (test code = URPRO) NEGATIVE MG/DL NEGATIVE NITRITES (test code = URNIT) NEGATIVE NEGATIVE UROBILINGEN (test code = URURO) 0.2 EU/DL 0.2-1.0 LEUKOCYT (test code = URLEU) SMALL NEGATIVE UA COLOR (test code = UA COLOR) DARK YELLOW YELLOW CLARITY (test code = CLARITY) CLEAR CLEAR SP GRAV (test code = URSPGRAV) 1.018 1.000-1.025 UAMICRO (test code = UAMICRO) YES WBC (test code = URWBC) 11 /HPF 0-5 H RBC (test code = URRBC) 7 /HPF 0-2 H CASTS (test code = CAST) 6 /LPF 0-3 H UR EPI (test code = EPI) 143 /LPF BACTERIA (test code = BACTERIA) NEGATIVE NONE B-HCG QUAL (KIT)2018-08-29 19:33:00* Test Item Value Reference Range Interpretation Comme nts HCGQUAL (test code = HCGQUAL) NEGATIVE NEGATIVE URINE: NEGATIVE = < 20 mIU/ML; POSITIVE= >/= 20 mIU/ML SERUM: NEGATIVE = < 10 mIU/ML; POSITIVE= >/= 10 mIU/ML SOURCE (test code = SOURCE) SERUM HCG INTERNAL POSITIVE CNTRL (test code = HCGIPC) PASS PASS HCG LOT # (test code = UHCGLOT) [id number] HCG EXPIRATION DATE (test code = UHCGEXP) 07-20 [id number] 19:28:00* Test Item Value Reference Range Interpretation Comme nts LIPASE (test code = LIPA) 48 U/L 23-300 [id number] 19:28:00* Test Item Value Reference Range Interpretation Comme nts SODIUM (test code = NA) 140 MMOL/L 137-145 K+ (test code = KSERUM) 4.0 MMOL/L 3.5-5.1 PLEASE NOTE NEW REFERENCE RANGE(S) IN EFFECT EFFECTIVE 01/30/2010 - NEW ANALYZER ([id number]) CHLORIDE (test code = CL) 102 MMOL/L 98-107 CO2 (test code = CO2) 27 MMOL/L 22-30 BUN (test code = BUN) 10 MG/DL 7-17 CREA (test code = CREA) 0.6 MG/DL 0.7-1.2 L GLUCOSE (test code = GLUCOSE) 84 MG/DL 70-99 Fasting glucos e normal <100 MG/DL- [employer] recommendation CALCIUM (test code = CABLOOD) 9.7 MG/DL 8.4-10.2 TOTPROT (test code = TOTPROT) 7.9 G/DL 6.3-8.2 ALBUMIN (test code = ALBSERUM) 4.5 G/DL 3.5-5.0 BILITOT (test code = BILITOT) 0.7 MG/DL 0.2-1.3 AST (test code = AST) 547 U/L 15-46 H PHOSALK (test code = PHOSALK) 177 U/L 38-126 H ALT (test code = ALT) 599 U/L 13-69 H GFR (test code = GFR) 134 mL/min/1.73m2 A GFR of >90 mL/min/1.73m2 is considered normal. [id number] 19:21:00* Test Item Value Reference Range Interpretation Comme nts WBC (test code = WBC) 11.7 K/UL 3.5-10.9 H RBC (test code = RBC) 5.17 M/UL 4.0-5.0 H HGB (test code = HGB) 14.9 G/DL 11.5-15.5 HCT (test code = HCT) 45.1 % 34-46 MCV (test code = MCV) 87.2 FL 80-98 MCH (test code = MCH) 28.8 PG 28-32 MCHC (test code = MCHC) 33.0 G/DL 32.5-36.5 RDW (test code = RDW) 12.1 % 11.5-14.5 PLT (test code = PLT) 295 K/UL 150-450 MPV (test code = MPV) 11.1 FL 7.4-10.4 H MANDIFF (test code = MANDIFF) NO SCAN (test code = SCAN) NO NEUT% (test code = NEUT%) 70.7 % 40-75 LYMPH% (test code = LYMPH%) 21.0 % 24-44 L MONO% (test code = MONO%) 6.2 % 0-13 EOS% (test code = EOS%) 1.3 % 0-4 BASO % (test code = BASO%) 0.5 % 0-2 IG (test code = IG) 0 % 0-1 IG% (test code = IG%) 0.3 % 0-1 IG% = Metamyeloc ytes, Myelocytes, and Promyelocytes. (Immature neutrophils not including "bands".) > 3% IG indicates risk of sepsis NRBC% (test code = NRBC%) 0 /100 WBC ABS NEUT (test code = NEUT) 8.3 K/UL 1.2-7.2 H PATHOLOGY [id number] 09:33:00TISSUE CONSULTATION REPORTBAPTIST DELL CHILDREN'S MEDICAL CENTERDEGALLUP INDIAN MEDICAL CENTERMENT OF PATHOLOGYP.O[address], [place] [address] ROBBRENDA CORTES M.D.LIZ RIVERA M.D.JOSH NERI M.D. ____Patient: DEYSI ALVAREZ 1995 23 FRoom:[facility]#: [id number] Ordering Physician: JUAN MERAZ Rec.: 08/26/2018Date of Proc.: 08/25/2018Lab No.: [id number] PRE-OPERATIVE DIAGNOSIS:Chronic cholecystitisFINAL ANATOMIC DIAGNOSIS:GALLBLADDER, CHOLECYSTECTOMY: CHRONIC [...] cassette.PATHOLOGIST: Roberto Genao Electronically Signed: 08/29/2018ABDOMEN 2 [id number] 07:15:[address] [id number] IMAGING REPORTPatient Name: DEYSI ALVAREZ BDate of Service: [id number]: 23 Sex: F Order #: [id number] [facility]1995 X-Ray Number: [id number] Record Number: [id number] Hospital Number: [id number] Physician: GABBY THOMASOrdering Physician: Radha THOMAS 2 views 08/27/2018History: Recent cholecystectomy, severe abdominal pain and vomitingTechnique: AP upright and supine images were obtained.Comparison: CT of 08/20/2018Findings:Cholecystectomy clips are in place.Bowel gas pattern is normal with some stool scattered in the colon. Thereis no free air. Bones and soft tissues are otherwise stable. Left lowpelvic phlebolith is identified.Impression:Within normal limits.The study was performedon an emergent basis and preliminary report faxedto the Emergency Department by the [facility] service nearthe time of the exam.Electronically Signed By: Arturo Moore M.D., 08/27/2018 7:12AMLegally authenticated by JOY FRANCO 2018-08-27 07:12:39B-HCG QUAL (KIT)2018-08-27 05:19:00* Test Item Value Reference Range Interpretation Comme nts HCGQUAL (test code = HCGQUAL) NEGATIVE NEGATIVE URINE: NEGATIVE = < 20 mIU/ML; POSITIVE= >/= 20 mIU/ML SERUM: NEGATIVE = < 10 mIU/ML; POSITIVE= >/= 10 mIU/ML SOURCE (test code = SOURCE) SERUM HCG INTERNAL POSITIVE CNTRL (test code = HCGIPC) PASS PASS HCG LOT # (test code = UHCGLOT) [id number] HCG EXPIRATION DATE (test code = UHCGEXP) 01-14 [id number] 05:07:00* Test Item Value Reference Range Interpretation Comme nts GLUCOSE (test code = URGLU) NEGATIVE MG/DL NEG-100 BILIRUBN (test code = URBILI) SMALL NEGATIVE KETONE (test code = URKET) TRACE MG/DL NEGATIVE BLOOD (test code = URBLD) NEGATIVE UR PH (test code = URPH) 5.0 5.0-7.5 PROTEIN (test code = URPRO) NEGATIVE MG/DL NEGATIVE NITRITES (test code = URNIT) NEGATIVE NEGATIVE UROBILINGEN (test code = URURO) 1.0 EU/DL 0.2-1.0 LEUKOCYT (test code = URLEU) SMALL NEGATIVE UA COLOR (test code = UA COLOR) DARK YELLOW YELLOW CLARITY (test code = CLARITY) CLOUDY CLEAR SP GRAV (test code = URSPGRAV) 1.021 1.000-1.025 UAMICRO (test code = UAMICRO) YES WBC (test code = URWBC) 8 /HPF 0-5 H RBC (test code = URRBC) 2 /HPF 0-2 CASTS (test code = CAST) 14 /LPF 0-3 H UR EPI (test code = EPI) 210 /LPF BACTERIA (test code = BACTERIA) NEGATIVE NONE CASTTYPE (test code = CASTTYPE) HYALINE PATHCAST (test code = PATHCAST) GRANULAR MUCOUS (test code = URMUCOUS) MUCH /LPF NONE [id number] 04:11:00* Test Item Value Reference Range Interpretation Comme nts WBC (test code = WBC) 7.8 K/UL 3.5-10.9 RBC (test code = RBC) 4.34 M/UL 4.0-5.0 HGB (test code = HGB) 12.7 G/DL 11.5-15.5 HCT (test code = HCT) 38.2 % 34-46 MCV (test code = MCV) 88.0 FL 80-98 MCH (test code = MCH) 29.3 PG 28-32 MCHC (test code = MCHC) 33.2 G/DL 32.5-36.5 RDW (test code = RDW) 12.1 % 11.5-14.5 PLT (test code = PLT) 225 K/UL 150-450 MPV (test code = MPV) 11.5 FL 7.4-10.4 H MANDIFF (test code = MANDIFF) NO SCAN (test code = SCAN) NO NEUT% (test code = NEUT%) 55.2 % 40-75 LYMPH% (test code = LYMPH%) 34.0 % 24-44 MONO% (test code = MONO%) 9.5 % 0-13 EOS% (test code = EOS%) 0.6 % 0-4 BASO % (test code = BASO%) 0.4 % 0-2 IG (test code = IG) 0 % 0-1 IG% (test code = IG%) 0.3 % 0-1 IG% = Metamyeloc ytes, Myelocytes, and Promyelocytes. (Immature neutrophils not including "bands".) > 3% IG indicates risk of sepsis NRBC% (test code = NRBC%) 0 /100 WBC ABS NEUT (test code = NEUT) 4.3 K/UL 1.2-7.2 BMP, BASIC METABOLIC [id number] 04:03:00* Test Item Value Reference Range Interpretation Comme nts SODIUM (test code = NA) 141 MMOL/L 137-145 K+ (test code = KSERUM) 4.1 MMOL/L 3.5-5.1 PLEASE NOTE NEW REFERENCE RANGE(S) IN EFFECT EFFECTIVE 01/30/2010 - NEW ANALYZER ([employer] 5600) CHLORIDE (test code = CL) 111 MMOL/L 98-107 H CO2 (test code = CO2) 22 MMOL/L 22-30 BUN (test code = BUN) 11 MG/DL 7-17 CREA (test code = CREA) 0.5 MG/DL 0.7-1.2 L GLUCOSE (test code = GLUCOSE) 112 MG/DL 70-99 H Fasting glucos e normal <100 MG/DL- [place] [employer] recommendation CALCIUM (test code = CABLOOD) 8.7 MG/DL 8.4-10.2 GFR (test code = GFR) 166 mL/min/1.73m2 A GFR of >90 mL/min/1.73m2 is considered normal. LIVER [id number] 04:03:00* Test Item Value Reference Range Interpretation Comme nts TOTPROT (test code = TOTPROT) 6.5 G/DL 6.3-8.2 ALBUMIN (test code = ALBSERUM) 3.6 G/DL 3.5-5.0 BILITOT (test code = BILITOT) 1.0 MG/DL 0.2-1.3 BILIDIR (test code = BILIDIR) 0.8 MG/DL 0.0-0.4 H AST (test code = AST) 830 U/L 15-46 H PHOSALK (test code = PHOSALK) 86 U/L 38-126 ALT (test code = ALT) 428 U/L 13-69 H [id number] 04:03:00* Test Item Value Reference Range Interpretation Comme nts LIPASE (test code = LIPA) 157 U/L 23-300 [id number] 13:45:00* Test Item Value Reference Range Interpretation Comme nts SODIUM (test code = NA) 139 MMOL/L 137-145 K+ (test code = KSERUM) 4.2 MMOL/L 3.5-5.1 PLEASE NOTE NEW REFERENCE RANGE(S) IN EFFECT EFFECTIVE 01/30/2010 - NEW ANALYZER ([employer] 56[employer]) CHLORIDE (test code = CL) 105 MMOL/L 98-107 CO2 (test code = CO2) 26 MMOL/L 22-30 BUN (test code = BUN) 8 MG/DL 7-17 CREA (test code = CREA) 0.5 MG/DL 0.7-1.2 L GLUCOSE (test code = GLUCOSE) 105 MG/DL 70-99 H Fasting glucos e normal <100 MG/DL- [place] [employer] recommendation CALCIUM (test code = CABLOOD) 9.1 MG/DL 8.4-10.2 TOTPROT (test code = TOTPROT) 6.4 G/DL 6.3-8.2 ALBUMIN (test code = ALBSERUM) 3.5 G/DL 3.5-5.0 BILITOT (test code = BILITOT) 0.4 MG/DL 0.2-1.3 AST (test code = AST) 145 U/L 15-46 H PHOSALK (test code = PHOSALK) 73 U/L 38-126 ALT (test code = ALT) 159 U/L 13-69 H GFR (test code = GFR) 166 mL/min/1.73m2 A GFR of >90 mL/min/1.73m2 is considered normal. [id number] 12:43:00* Test Item Value Reference Range Interpretation Comme nts WBC (test code = WBC) 11.9 K/UL 3.5-10.9 H RBC (test code = RBC) 4.32 M/UL 4.0-5.0 HGB (test code = HGB) 12.5 G/DL 11.5-15.5 HCT (test code = HCT) 37.2 % 34-46 MCV (test code = MCV) 86.1 FL 80-98 MCH (test code = MCH) 28.9 PG 28-32 MCHC (test code = MCHC) 33.6 G/DL 32.5-36.5 RDW (test code = RDW) 11.9 % 11.5-14.5 PLT (test code = PLT) 253 K/UL 150-450 MPV (test code = MPV) 11.2 FL 7.4-10.4 H MANDIFF (test code = MANDIFF) NO SCAN (test code = SCAN) NO NEUT% (test code = NEUT%) 76.7 % 40-75 H LYMPH% (test code = LYMPH%) 14.7 % 24-44 L MONO% (test code = MONO%) 8.0 % 0-13 EOS% (test code = EOS%) 0.0 % 0-4 BASO % (test code = BASO%) 0.1 % 0-2 IG (test code = IG) 0 % 0-1 IG% (test code = IG%) 0.5 % 0-1 IG% = Metamyeloc ytes, Myelocytes, and Promyelocytes. (Immature neutrophils not including "bands".) > 3% IG indicates risk of sepsis NRBC% (test code = NRBC%) 0 /100 WBC ABS NEUT (test code = NEUT) 9.2 K/UL 1.2-7.2 H US LIMITED ABD [id number] 07:27:00[facility] [place] [id number] IMAGING REPORTPatient Name: DEYSI ALVAREZ BDate of Service: [id number]: 23 Sex: F Order #: 600 Room: ERSDOB:1995 X-Ray Number: [id number] Record Number: [id number] Hospital Number: [id number] Physician: Marbella THOMAS Physician: Ladarius THOMAS upper quadrant abdominal ultrasound 08/25/2018History: Abdominal pain and nausea for several weeksComparison CT of 08/20/2018The liver againshows increased echotexture consistent with fattyinfiltration. Prominence of the right liver is at least in part due to aRiedel's lobe. Multiple anechoic structures scattered in the liver measureup to 1.9 cm and may be due to cysts. These are not clearly seen on theprior CT which was performed without contrast.Common bile duct diameter is 4 mm.Gallbladder wall is thickened to 1 cm with some surrou nding fluid. Nodefinite calculi.Duplex imaging of main portal vein flow is unremarkable. The aorta and IVCare normal. The pancreas and right kidney are suboptimally visualized dueto bowel gas. Right kidney is measured at 10.9 cm in length.IMPRESSION:Abnormal gallbladder findings suspicious for acute cholecystitis. Nodefinite calculus. These findings are new.Fatty liver with possible hepatic cysts. Again, these structures were notseen on the prior noncontrast CT. Follow-up CT with contrast or MRI pre andpost IV contrast would be more helpful for further evaluation.The study was performed on anemergent basis and preliminary report faxedto the Emergency Department by the [facility] service nearthe time of the exam.Electronically Signed By: Arturo Moore M.D., 08/25/2018 7:25 AMLegally authenticated by JOY FRANCO 2018-08-25 07:25:[id number] 07:14:00* Test Item Value Reference Range Interpretation Comme nts BLOOD TYPE (test code = TYPE) A Rh Negative ANTIBODY SCREEN (test code = SCREEN) NEGATIVE NEGATIVE [id number] 03:58:00* Test Item Value Reference Range Interpretation Comme nts LIPASE (test code = LIPA) 57 U/L 23-300 LIVER [id number] 03:58:00* Test Item Value Reference Range Interpretation Comme nts TOTPROT (test code = TOTPROT) 7.2 G/DL 6.3-8.2 ALBUMIN (test code = ALBSERUM) 4.2 G/DL 3.5-5.0 BILITOT (test code = BILITOT) 0.3 MG/DL 0.2-1.3 BILIDIR (test code = BILIDIR) 0.3 MG/DL 0.0-0.4 AST (test code = AST) 30 U/L 15-46 PHOSALK (test code = PHOSALK) 59 U/L 38-126 ALT (test code = ALT) 35 U/L 13-69 [id number] 03:52:00* Test Item Value Reference Range Interpretation Comme nts GLUCOSE (test code = URGLU) NEGATIVE MG/DL NEG-100 BILIRUBN (test code = URBILI) NEGATIVE NEGATIVE KETONE (test code = URKET) NEGATIVE MG/DL NEGATIVE BLOOD (test code = URBLD) NEGATIVE UR PH (test code = URPH) 6.0 5.0-7.5 PROTEIN (test code = URPRO) NEGATIVE MG/DL NEGATIVE NITRITES (test code = URNIT) NEGATIVE NEGATIVE UROBILINGEN (test code = URURO) 0.2 EU/DL 0.2-1.0 LEUKOCYT (test code = URLEU) NEGATIVE NEGATIVE UA COLOR (test code = UA COLOR) YELLOW YELLOW CLARITY (test code = CLARITY) CLEAR CLEAR SP GRAV (test code = URSPGRAV) 1.023 1.000-1.025 UAMICRO (test code = UAMICRO) NO [id number] 03:48:00* Test Item Value Reference Range Interpretation Comme nts WBC (test code = WBC) 11.8 K/UL 3.5-10.9 H RBC (test code = RBC) 4.83 M/UL 4.0-5.0 HGB (test code = HGB) 13.8 G/DL 11.5-15.5 HCT (test code = HCT) 42.4 % 34-46 MCV (test code = MCV) 87.8 FL 80-98 MCH (test code = MCH) 28.6 PG 28-32 MCHC (test code = MCHC) 32.5 G/DL 32.5-36.5 RDW (test code = RDW) 12.1 % 11.5-14.5 PLT (test code = PLT) 277 K/UL 150-450 MPV (test code = MPV) 11.2 FL 7.4-10.4 H MANDIFF (test code = MANDIFF) NO SCAN (test code = SCAN) NO NEUT% (test code = NEUT%) 51.5 % 40-75 LYMPH% (test code = LYMPH%) 37.8 % 24-44 MONO% (test code = MONO%) 8.4 % 0-13 EOS% (test code = EOS%) 1.6 % 0-4 BASO % (test code = BASO%) 0.4 % 0-2 IG (test code = IG) 0 % 0-1 IG% (test code = IG%) 0.3 % 0-1 IG% = Metamyeloc ytes, Myelocytes, and Promyelocytes. (Immature neutrophils not including "bands".) > 3% IG indicates risk of sepsis NRBC% (test code = NRBC%) 0 /100 WBC ABS NEUT (test code = NEUT) 6.1 K/UL 1.2-7.2 ISTAT [id number] 03:45:00* Test Item Value Reference Range Interpretation Comme nts ISTAT HCG (test code = ISHCG) <5.0 IU/L A value of less than or equal to <5 IU/L is considered NEGATIVE. A value between 5 IU/L and 25 IU/L is considered INDETERMINATE. A value of >25 IU/L is considered POSITIVE. ISTAT CHEM [id number] 03:25:00* Test Item Value Reference Range Interpretation Comme nts ISTATNA (test code = ISTATNA) 141 MMOL/L [...] code = ISTANGAP) 19 MMOL/L CT ABDOMEN/PELVIS [id number] 07:45:[address] [address]PKOYTYDKWA IMAGING REPORTPatient Name: DEYSI ALVAREZ BDate of Service: 30-81-0435Bhx: 23 Sex: F Order #: [id number] Room: ERSDOB:1995 X-Ray Number: [id number] Record Number: [id number] Hospital Number: [id number] Physician: LASHAWN, ALIOrdering Physician: RADHA HOLLINS abdomen and pelvis.History: Flank, and/or back pain.Technique: Entirely unenhanced CT axial images of the abdomen and pelviswith sagittal and coronal reformatted images were reviewed.Note: Neither IV nor oral contrast was utilized. The lack of utilization ofcontrast in abdominal imaging limits the assessment.This CT exam was performed usingone or more of the following dosereduction techniques: Automated exposure control, adjustment of the MAand/or KV according to patient size or use of iterative reconstructiontechnique.Comparison: None.Findings:Images of the lower lungs and mediastinum demonstrate no specific defects.There is fatty hepatomegaly suspected.The solid large organs of the upper abdomen appear focally normal.The gallbladder appears normal.There is no significant retroperitoneal adenopathy or fluid collectionsdepicted.No obvious bowel abnormalities are depicted.The urinary bladder appears normal. There is no pelvic free fluid seen.Impression:Fatty hepatomegaly.Unenhanced exam.Electronically Signed By: Marlon Antonio M.D., 08/21/2018 7:43 AMLegally authenticated by CHRISTOPH Rodriguez 2018-08-21 07:43:[id number] 22:43:00* Test Item Value Reference Range Interpretation Comme nts LIPASE (test code = LIPA) 65 U/L 23-300 LIVER [id number] 22:43:00* Test Item Value Reference Range Interpretation Comme nts TOTPROT (test code = TOTPROT) 7.3 G/DL 6.3-8.2 ALBUMIN (test code = ALBSERUM) 4.1 G/DL 3.5-5.0 BILITOT (test code = BILITOT) 0.2 MG/DL 0.2-1.3 BILIDIR (test code = BILIDIR) 0.2 MG/DL 0.0-0.4 AST (test code = AST) 22 U/L 15-46 PHOSALK (test code = PHOSALK) 60 U/L 38-126 ALT (test code = ALT) 28 U/L 13-69 BMP, BASIC METABOLIC [id number] 22:43:00* Test Item Value Reference Range Interpretation Comme nts SODIUM (test code = NA) 140 MMOL/L 137-145 K+ (test code = KSERUM) 3.9 MMOL/L 3.5-5.1 PLEASE NOTE NEW REFERENCE RANGE(S) IN EFFECT EFFECTIVE 01/30/2010 - NEW ANALYZER ([employer]) CHLORIDE (test code = CL) 109 MMOL/L 98-107 H CO2 (test code = CO2) 23 MMOL/L 22-30 BUN (test code = BUN) 8 MG/DL 7-17 CREA (test code = CREA) 0.4 MG/DL 0.7-1.2 L GLUCOSE (test code = GLUCOSE) 96 MG/DL 70-99 Fasting glucos e normal <100 MG/DL- [place] [employer] recommendation CALCIUM (test code = CABLOOD) 9.3 MG/DL 8.4-10.2 GFR (test code = GFR) 214 mL/min/1.73m2 A GFR of >90 mL/min/1.73m2 is considered normal. [id number] 22:07:00* Test Item Value Reference Range Interpretation Comme nts GLUCOSE (test code = URGLU) NEGATIVE MG/DL NEG-100 BILIRUBN (test code = URBILI) NEGATIVE NEGATIVE KETONE (test code = URKET) NEGATIVE MG/DL NEGATIVE BLOOD (test code = URBLD) TRACE UR PH (test code = URPH) 5.5 5.0-7.5 PROTEIN (test code = URPRO) NEGATIVE MG/DL NEGATIVE NITRITES (test code = URNIT) NEGATIVE NEGATIVE UROBILINGEN (test code = URURO) 0.2 EU/DL 0.2-1.0 LEUKOCYT (test code = URLEU) TRACE NEGATIVE UA COLOR (test code = UA COLOR) YELLOW YELLOW CLARITY (test code = CLARITY) CLOUDY CLEAR SP GRAV (test code = URSPGRAV) 1.022 1.000-1.025 UAMICRO (test code = UAMICRO) YES WBC (test code = URWBC) 22 /HPF 0-5 H RBC (test code = URRBC) 26 /HPF 0-2 H CASTS (test code = CAST) 17 /LPF 0-3 H UR EPI (test code = EPI) 131 /LPF BACTERIA (test code = BACTERIA) SMALL NONE B-HCG QUAL (KIT)2018-08-20 22:06:00* Test Item Value Reference Range Interpretation Comme nts HCGQUAL (test code = HCGQUAL) NEGATIVE NEGATIVE URINE: NEGATIVE = < 20 mIU/ML; POSITIVE= >/= 20 mIU/ML SERUM: NEGATIVE = < 10 mIU/ML; POSITIVE= >/= 10 mIU/ML SOURCE (test code = SOURCE) URINE HCG INTERNAL POSITIVE CNTRL (test code = HCGIPC) PASS PASS HCG LOT # (test code = UHCGLOT) [id number] HCG EXPIRATION DATE (test code = UHCGEXP) 01-26-20 [id number] 22:03:00* Test Item Value Reference Range Interpretation Comme nts WBC (test code = WBC) 10.1 K/UL 3.5-10.9 RBC (test code = RBC) 4.88 M/UL 4.0-5.0 HGB (test code = HGB) 13.8 G/DL 11.5-15.5 HCT (test code = HCT) 42.1 % 34-46 MCV (test code = MCV) 86.3 FL 80-98 MCH (test code = MCH) 28.3 PG 28-32 MCHC (test code = MCHC) 32.8 G/DL 32.5-36.5 RDW (test code = RDW) 12.1 % 11.5-14.5 PLT (test code = PLT) 281 K/UL 150-450 MPV (test code = MPV) 10.9 FL 7.4-10.4 H MANDIFF (test code = MANDIFF) NO SCAN (test code = SCAN) NO NEUT% (test code = NEUT%) 51.6 % 40-75 LYMPH% (test code = LYMPH%) 37.9 % 24-44 MONO% (test code = MONO%) 8.4 % 0-13 EOS% (test code = EOS%) 1.5 % 0-4 BASO % (test code = BASO%) 0.4 % 0-2 IG (test code = IG) 0 % 0-1 IG% (test code = IG%) 0.2 % 0-1 IG% = Metamyeloc ytes, Myelocytes, and Promyelocytes. (Immature neutrophils not including "bands".) > 3% IG indicates risk of sepsis NRBC% (test code = NRBC%) 0 /100 WBC ABS NEUT (test code = NEUT) 5.2 K/UL 1.2-7.2 Notes Date/Time Note Provider Source 2023-10-16 17:52:58 QOFXQAZEX4IjRELuJT49F0Vnke/GgQLeWulegUru PU J2unx3qMJw0XbSrdq5qjgb5603-22-68P13:52:58F ormatting of this note might be different from the original.Patient given discharge instructions on fatigue. No prescriptions. Advised to follow up with pcp. Pt left ER ambulatory, no signs of distress. 73471-2Xwecybvhq department NakeKC9304-93-50V68:53:37Emergency department NoteTXT1.2.840.227452.1.13.104.2.7.2.66038 9|[id number] for patient ljdc65279-3AcjtBAGAJNUXRXRRqbckpkmw C-CDA narrative text[address] AwyvIgargudrsQuoridbldAQFA0832190334PEPJFA UDXAPATWGXJQFEWH0251-83-75Y49:53:371.2.840 .522110.1.72.3.15|1.2.840.236462.1.13.104. 2.7.2.727879_[id number] [facility] 2023-10-16 16:01:28 5mlS4oy4lNYOSX9vFJEl+r0oXs1eRmau16VWyY6K J3 JjRIG/vJlR89vduGVPhKJR9235-94-06E77:01:28F ormatting of this note might be different from the original.Missed IV attempt to left AC, blood collected. Pt given sandwich and chocolate pudding. 45859-2Ojgpgjwnx department JdczCC7739-18-92J14:01:52[facility] NoteTXT1.2.840.332828.1.13.104.2.7.2.77233 9|[id number] for patient atoa95210-3XmgnBXONESBGKWHScszkmphk C-CDA narrative text[address] XqsiVwcbddcuwIaqxcgjtcRKAV7024119278LTRSHN RAHVYYUSDWMDFVZV3635-50-28K66:01:521.2.840 .443594.1.72.3.15|1.2.840.451281.1.13.104. 2.7.2.727879_[id number] [facility] 2023-10-16 15:15:42 F8m5v56kh/LTZrfiJHR6ThsmyClD9zS4qk7Wz+Kg 4Y e98WNByj2QNXy79Tvir3950112-65-34N86:15:42F ormatting of this note might be different from the original.Patient states: "I feel super shaky, like I'm going to pass out. I feel like I'm not even awake. It feels very foggy. It's been going on for 2 days"Pmhx: Hypothyroidism, iron deficiency anemia,BGL in triage 77. Reports doing low carb diet over past 2 weeks. Pt given juice. 10354-3Acczaledb department Triage dplyFA7794-83-73A90:23:26[facility] Triage noteTXT1.2.840.956906.1.13.104.2.7.2.15136 9|[id number] for patient fbfr36912-0Jlgoisdya department NoteLNNARRATIVEFormatted C-CDA narrative [id number] M Cruz TAMMY[id number] ALPPKPSHDOSARLSZ3646-24-43K70:23:261.2.840 .404991.1.72.3.15|1.2.840.402798.1.13.104. 2.7.2.727879_[id number] Tigist Wong Nir MUNOZ [facility] 2023-10-14 16:37:43 Iej2FoZn2Id5KCHxR2FZHukVt5435XVv5djLKwwz JK rcZ0nvoOWeiQ+tGqyFoauF7333-68-80X03:37:43F ormatting of this note might be different from the original.Call placed, attempt #3 with no answer. Will await call back, will close encounter. 46509-9Lwyaonqpd encounter MlecGK9281-37-02Q67:39:15Telephone encounter NoteTXT1.2.840.176118.1.13.104.2.7.2.27921 9|[id number] for patient rdqz02906-3VirtCEJEGOGIPSNZxucedcbo C-CDA narrative [id number] Garcia V, RN[address] [id number] OVBEZXMTBRWOXTVX0770-40-79B64:39:151.2.840 .825206.1.72.3.15|1.2.840.456914.1.13.104. 2.7.2.727879_[id number] Lucero Blanchard RN [facility] 2023-10-13 16:39:13 f4KSpNRomLC13g2TikFmFLmh2RECtjggg+6Pf05r H6 alpOKg5J9LrpcS3VBw/JBy9144-67-31E03:39:13F ormatting of this note might be different from the original.Call placed, attempt #2 with no answer. 37147-6Lefkuhamk encounter QgruSA4786-12-33F57:39:30Telephone encounter NoteTXT1.2.840.409305.1.13.104.2.7.2.26774 9|[id number] for patient lvpn29826-6ThblUIKOUHBTMRTQaghdqmhf C-CDA narrative text[address] Is[id number] TBZOEWKLUHRQNPKF6267-90-23B71:39:301.2.840 .073681.1.72.3.15|1.2.840.658339.1.13.104. 2.7.2.727879_[id number] [facility] 2023-10-13 13:21:53 CSGDHMEes83DdUcqW0WfXHdjmJYDqcxU5IREN5t9 BB U2c1kbptmZKLIfXpQNlnfX6756-81-84K38:21:53F ormatting of this note is different from the original.Images from the original note were not included.Notes:lisinopriL 10 mg tabletSig: Take 1 tablet by mouth in the morning.Disp: Not specified Refills:Start: 10/13/2023lass: eRXLast ordered: 6 days ago (10/07/2023) by [place] [facility] UnassignedCardiovascular: SAMRE[facility] Inhibitors Gffhrl9010/13/2023 01:19 PMProtocol Details Valid encounter within last 12 monthsK in normal range and within 360 daysCr in normal range and within 360 daysTo be filled at: [id number] - [place], [place] - [address] [email or web address] [address] [facility] [place] Refilled: I don't see this as being prescribed by our office.Recent VisitsDate Type Provider Dept10/01/23 Office Visit Dago Ibarra NP [facility]09/06/23 Office Visit Liberty Watson MD [facility]06/16/23 Office Visit Liberty Watson MD [facility]06/02/23 Office Visit Liberty Watson MD [facility]05/12/23 [facility] past 540 days with a meds authorizing provider and meeting all other requirementsFuture AppointmentsDate Type Provider Dept12/23/23 Appointment [facility] within next 150 days with a meds authorizing provider and meeting all other requirements 05121-9Zsdvflpyb encounter VnxyBI5056-07-15X18:32:00Telephone encounter NoteTXT1.2.840.592990.1.13.104.2.7.2.70076 9|[id number] for patient tjsn60747-6QtikWIWIECZOSCWNedohkqrc C-CDA narrative [id number] Maldonado MA[address] Jv[id number] ZJBQDVOWFIMENWGF3283-52-80T41:32:001.2.840 .046998.1.72.3.15|1.2.840.872249.1.13.104. 2.7.2.727879_[id number] Mary Maldonado MA [facility] 2023-10-13 13:19:24 lVddseWtda6oH5fQbERrgIz4lKLkn/EhtoO0WM3Y Xd nkL3ZtybCBohEcWzGaxQMx3904-46-30Z01:19:24F ormatting of this note might be different from the original.Copied from [facility] #[id number]. 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 Pt states [facility] is not accepting pt at this time and the other location the pt was referred to does not accept her insurance. Pt would like to know does she have to go or can it be managed in the clinic.Pt is also asking for a refill of lisinopriL 10 mg tabletIona Ritchie 10/13/23 1:18 PM 71640-0Fwxmgalni encounter GsqhFY9830-48-97S59:19:56Telephone encounter NoteTXT1.2.840.444907.1.13.104.2.7.2.59297 9|[id number] for patient gdwr64874-5AmqwICURCWVLVGIHhusnupqv C-CDA narrative qlte78419298Dltolwk A Perez[address] JbraGcbsegppyTeurctxxyQUZA7565074119FDELIN DMRXRNDKJTMYYZLT1630-88-24X30:19:561.2.840 .488224.1.72.3.15|1.2.840.851357.1.13.104. 2.7.2.727879_[id number] Iona Ritchie [facility] 2023-10-12 11:00:47 wRznNx8nfIOArSpu1skFcrsUW/exxEaWqEUDMlG4 9f 4SgM7wPnwD6X7+Hk1JIJ1e7014-50-13Y68:00:47F ormatting of this note might be different from the original.Call placed to number listed, no answer. 73613-3Edhxpiwqy encounter MdqcFG6467-14-96E58:01:22Telephone encounter NoteTXT1.2.840.095040.1.13.104.2.7.2.17699 9|7320002601GUWbuinfoqb for patient nnqi65945-2TrchVHPSKAXSDPOOwhttpogz C-CDA narrative text[id number] UOFXTFKZMSRNUASZ4325-83-99E54:01:221.2.840 .665256.1.72.3.15|1.2.840.121515.1.13.104. 2.7.2.727879_[id number] [facility] 2023-10-12 10:27:14 cA6/BSANdC8AmU+iPYdOdYMJARNoIYDxg+HwfTNT yf 5tOSHhb7+pL8ifx80t7jOO1517-77-91T98:27:14F ormatting of this note might be different from the original.Deysi Alvarez is a 28 year old femaleMartha with [facility] stating [facility] still need demographics for the patient. Please contact [phone] signed by Eduardo Davison at 10/12/2023 10:30 AM GMG03658-7Iadkpeywu encounter ZeuvJL3258-19-56N29:30:52Telephone encounter NoteTXT1.2.840.003741.1.13.104.2.7.2.66317 9|[id number] for patient rvrw08424-5DogbZARMZDEBHKEIsgupcbgl C-CDA narrative ucii29844168Zqfltxf Fields[id number] ZKCBYCKUWXXPXBYV1219-48-70S53:30:521.2.840 .506199.1.72.3.15|1.2.840.778898.1.13.104. 2.7.2.727879_[id number] Eduardo Davison [facility] 2023-10-07 16:25:46 TeiRLzz8s+JQ6jLnfC2nnhiDkVsDdXWXCSXjIPZR 1Y GzU1aIfwYvG1LOiIyF6FzB1033-79-18Q92:25:46F ormatting of this note might be different from the original.B12 is a water soluble vitamin . The body is can easily clear it without quick concern for accumulations. Will monitor and recheck it in few months 68605-2Fvkpmdhul encounter EixwDL3289-99-81W18:27:15Telephone encounter NoteTXT1.2.840.063053.1.13.104.2.7.2.61774 9|5862423241TKFxznpcfrq for patient nncv14967-1EaeuWBSRZINEGKPYxlqnocde C-CDA narrative text[address] CsiwFwkxtrregItjaedgahJHPD0938284784ZZZWTG FVCGBEAHBTDMVEBJ5084-80-13L07:27:151.2.840 .717754.1.72.3.15|1.2.840.661962.1.13.104. 2.7.2.727879_[id number] [facility] 2023-10-07 15:33:36 sfFQqLvbLaOJOhDY0gL30sU1FMhUuY2/imMs+MfP VE Kx4l5yL0nUO0nzum/Cn+MQ8772-45-42Q29:33:36F ormatting of this note might be different from the original.Pt with concerns of elevated B-12, states was reading on [employer] could be caused by liver problems. Informed pt I have forwarded her [employer] message with this concern and awaiting response as is seeing pts. Informed pt once she responds we will let her know. Pt states has not taken any vitamins to elevate levels. Will forward to provider for review. 97824-8Gcylhefwr encounter CgcrZA7849-23-74O02:35:37Telephone encounter NoteTXT1.2.840.941517.1.13.104.2.7.2.12365 9|[id number] for patient lgwi59840-1ZgdlVIKDCGMRVDWBkuamrkkq C-CDA narrative jimx534040010KhqptYANDEL Carlin[id number] OQZYRHUXYQCUVAPH2457-55-23I30:35:371.2.840 .066942.1.72.3.15|1.2.840.196198.1.13.104. 2.7.2.727879_[id number] Lucero Hoang V, TAMMY [facility] 2023-10-07 14:07:21 jhACERulDDj+xgFN0a2bHz4oxh2f5MChTbUmKy1f 1f 3t0/ijk7KVj0F7N+9LQIl55277-56-85X60:07:21F ormatting of this note might be different from the original.Copied from [facility] #[id number]. 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 Plaza in regards to her most recent lab work. She has questions. Please advise. Call back number:[phone] signed by Jessica Beaulieu at 10/07/2023 2:07 PM BWC42111-2Zscnxlnul encounter WjppWX9475-89-13Y91:07:32Telephone encounter NoteTXT1.2.840.261654.1.13.104.2.7.2.71503 9|[id number] for patient blbd58746-0PcteAZILXHQRWXVDezijkhkg C-CDA narrative xnww01205860QmsudvcJessica Shaikh[id number] LLXDKYUAPJLMRJMC0373-25-24F53:07:321.2.840 .877927.1.72.3.15|1.2.840.100985.1.13.104. 2.7.2.727879_[id number] Jessica Beaulieu [facility] 2023-10-07 10:00:00 ijKSy2TR54vjYmwHuOwXSWxIvCYpCpKYW3tC3D8U As ULRRP3CKljtV9kCxgNbhmi7069-58-59L24:00:00F ormatting of this note is different from the original.Images from the original note were not included.Venipuncture collection performed by clean technique on the left anticubitus. Total of 1 attempts were made. Slight pressure and a bandage/dressing were applied to the site(s). The patient experienced no complications. The following specimens were processed according to instructions and sent to [facility] laboratories per lab order on 10/07/2023:LT BLUESST 1REDLAVPPTDK GREEN (LiHep)DK GREEN (SodH)GRAYDK BLUE (K2)DK BLUE (S)ACDBlood CultureNIPT/NTD 86896-6Voglt DxxlAC8822-87-82L73:06:20Nurse NoteTXT1.2.840.999355.1.13.104.2.7.2.05423 9|[id number] for patient hyma15471-9Xgfgz NoteLNNARRATIVEFormatted C-CDA narrative textUT[address] PqfkKhoefuwvsYogizizxjWXTR8349124155BOUBRB TSHAKNUTMFVIBCNH6114-45-68J64:06:201.2.840 .550458.1.72.3.15|1.2.840.303835.1.13.104. 2.7.2.727879_[id number] [facility] 2023-10-05 15:02:27 b79SnAOQmAG3pbqFixpX8Qt/cUPNxD+lNRgG2MkE um fyOe9T4YxjIo+32h9pywxh5030-46-57K94:02:27F ormatting of this note might be different from the original.Referral faxed. 86375-1Xvjvoijrh encounter JynmWO7879-66-44X11:02:36Telephone encounter NoteTXT1.2.840.009438.1.13.104.2.7.2.14454 9|3278147520GRDemnsetbd for patient ofxv59921-0AvfpDYGCFCSANURVbumrrruq C-CDA narrative textUT[address] EbjzBpfmgoydsNveeiqewtUWZP4961601340LMVUVU GLGUAGQVOYORMFNO5161-78-39J37:02:361.2.840 .504330.1.72.3.15|1.2.840.520388.1.13.104. 2.7.2.727879_[id number] [facility] 2023-10-05 13:51:25 Eb686GL981IYCtroihUWzzDuPWpDz7TuTfrLQlG8 oF ZdMEKCEjgWfDSpfVS9m9EQ9165-49-40L73:51:25F ormatting of this note might be different from the original.Deysi Alvarez is a 28 year old female that is requesting a referral for an external hematology clinic due to the [facility] hematology being backed up until January.Cancer Center at [address] [phone] faxfor anemia iron deficiency 67784-0Sighgwkrk encounter JrsjFD4536-28-91P89:53:21Telephone encounter NoteTXT1.2.840.910328.1.13.104.2.7.2.95773 9|0633698251KMExelzqgrm for patient awuh06349-3QccyNGDXSUFSJRCUyyzpshwu C-CDA narrative itzs305252017Ewst Jrab[address]TXTX[address]7555[place] DOFLVIKVUTFYYODA9146-80-04U04:53:211.2.840 .742861.1.72.3.15|1.2.840.269328.1.13.104. 2.7.2.727879_[id number] Kelli Lopez [facility] 2023-10-04 15:21:26 q+6xnx1HuulRq73qfT0qB8PKmWNIZuNX870ppy3q 5q K5OlEFPTWvTCA7jtPj/B0V3019-38-05Y27:21:26F ormatting of this note might be different from the original.Called patient and discussed labs and referrals. 34922-6Akunfwybg encounter PryyGZ4990-53-91W39:27:36Telephone encounter NoteTXT1.2.840.814941.1.13.104.2.7.2.01698 9|2505823236VONnmiguvjb for patient nkdr20536-6DkneXYFICJIIDCETzlbhnoez C-CDA narrative text[id number] OQPIOPBNDLAKRESL9867-77-59M05:27:361.2.840 .529889.1.72.3.15|1.2.840.263198.1.13.104. 2.7.2.727879_[id number] [facility] 2023-10-04 08:18:24 azm91oH1Y/NBVrWyTCqoRiQveBY9GVrZIjGjC9tI SD C8Euz4xkuyG1ngsYH8qEKj6095-22-19M57:18:24F ormatting of this note might be different from the original.Forwarding to provider for review of labs and recommendations. 82651-1Pnwbwnwnr encounter MlvcCX8964-32-23X48:19:36Telephone encounter NoteTXT1.2.840.230455.1.13.104.2.7.2.06563 9|8579063040NARkvzmnybd for patient zqhw19015-4EpkmHNSZAMLKPGPJatwpfnbr C-CDA narrative oagg097903691Lwxnu Viktor Blanchard RN[address] DdspUznaxszfsRcpwbetppHXIR0868128759WGJSLU XQCXQSWDYQRKTBMD4600-05-17C74:19:361.2.840 .962114.1.72.3.15|1.2.840.539059.1.13.104. 2.7.2.727879_[id number] Lucero Blanchard RN [facility] 2023-10-01 15:15:00 VUyFf4SSKWHvt0YDaHdpOdzoGHxB/5ZULDPaFqS2 VB 6idwN0iEWt2LxCPDbaOrRQ1883-18-38Z08:15:00F ormatting of this note is different from the original.Images from the original note were not included.Venipuncture collection performed by clean technique on the right anticubitus. Total of 1 attempts were made. Slight pressure and a bandage/dressing were applied to the site(s). The patient experienced no complications. The following specimens were processed according to instructions and sent to [facility] laboratories per lab order on 10/01/2023:LT BLUESST 3REDLAV 1PPTDK GREEN (LiHep)DK GREEN (SodH)GRAYDK BLUE (K2)DK BLUE (S)ACDBlood CultureNIPT/NTD 16284-9Sqxtr VhugPZ9714-93-73W58:08:38Nurse NoteTXT1.2.840.948024.1.13.104.2.7.2.25785 9|[id number] for patient rvmk01321-4Fudfz NoteLNNARRATIVEFormatted C-CDA narrative textUT[address] UjaxOczxsayulXzkpusbybGRBQ6566828369BVBVBL NYQAOQTAPSBGSSHJ2288-82-77K87:08:381.2.840 .266739.1.72.3.15|1.2.840.077839.1.13.104. 2.7.2.727879_[id number] [facility] 2023-09-14 14:57:13 pVL1BVXR/TotK5hTvSx28Escwon7XSWebjsc0i8L Sr VkVajlNqh1s5BL5ljX0vfC0909-72-96O98:57:13F ormatting of this note is different from the original.Images from the original note were not included.Routed to provider for review. Unable to refill per ambulatory refill guidelines.Notes:DULoxetine 60 mg capsulePossible duplicate: Hover to review recent actions on this medicationSig: Take 1 capsule by mouth in the morning.Disp: Not specified Refills:Start: 09/14/2023lass: eRXNon-formularyLast ordered: 4 months ago (05/12/2023) by [place] Doctor UnassignedNeuropathic Pain Euxxjd1709/14/2023 12:41 PMProtocol Details Manual Review: Verify no changes in dose in the last 3 monthsValid encounter within last 12 monthsTo be filled at: [id number] - [place], [place] - [address] [email or web address] [address] [facility] Refilled: 4Recent VisitsDate Type Provider Dept09/06/23 Office Visit Liberty Watson MD [facility] Mliojqqi17/20/23 Office Visit Liberty Watson MD [facility]06/02/23 Office Visit Liberty Watson MD [facility]05/12/23 Office Visit [facility] MD [facility]Showing recent visits within past 540 days with a meds authorizing provider and meeting all other requirementsFuture AppointmentsDate Type Provider Dept12/23/23 [facility]ointment [facility] within next 150 days with a meds authorizing provider and meeting all other requirements 93197-9Kngqkkwyt encounter RzqgHA4862-54-14J47:58:30Telephone encounter NoteTXT1.2.840.603422.1.13.104.2.7.2.05741 9|[id number] for patient yhta47264-8GrfmRUCJYBDGPEHKjywlngxs C-CDA narrative osom537369952Trrpcwk R Martinez [address] JzmcIluxsxojbHkhfazdyjHODS1989120947FPXKKX UELCKAQYECYCLALV5562-09-23R89:58:301.2.840 .328892.1.72.3.15|1.2.840.659167.1.13.104. 2.7.2.727879_[id number] Mary Maldonado [facility] 2023-09-14 12:41:15 /ixL3XK0gpU4Fh+cu1qHzictTW1/ybJdK7RufI6h XA SgCxX7vGPo0qTum0T41IQG5931-70-86R30:41:15F ormatting of this note might be different from the original.2nd refill request from pharmacy. 94522-5Edkusxrml encounter VxylGM1221-03-50J62:41:55Telephone encounter NoteTXT1.2.840.498169.1.13.104.2.7.2.03390 9|3764285681HKZwrydhqel for patient okuo77803-2DcjuDOUVYNLJBDXHksznetsd C-CDA narrative ecnm512795246Qfphylv D [address] ObffGhpddwofvIkuxqppqqYTJI2062179288QXGTPD CRZSYGCZEXRLLBPR2217-06-67J84:41:551.2.840 .031623.1.72.3.15|1.2.840.493021.1.13.104. 2.7.2.727879_[id number] [facility] 2023-09-09 10:50:40 xjl6CUKN9ZNJ5f81IfWK/mrXz+j/Hp1oMHod7r69 /K 3RKSzQgNpLbg1NfJGAN37u0493-30-48P46:50:40F ormatting of this note is different from the original.Images from the original note were not included.Routed to provider for review. Unable to refill per ambulatory refill guidelines.Notes:DULoxetine 60 mg capsuleSig: Take 1 capsule by mouth in the morning.Disp: Not specified Refills:Start: 09/09/2023lass: eRXNon-formularyLast ordered: 4 months ago (05/12/2023) by [place] Doctor UnassignedNeuropathic Pain Bzvpua2309/09/2023 08:11 AMProtocol Details Manual Review: Verify no changes in dose in the last 3 monthsValid encounter within last 12 monthsTo be filled at: [id number] - [place], [place] [address] [facility] [employer] [facility] Refilled: 4Recent VisitsDate Type Provider Dept09/06/23 Office Visit Liberty Watson MD [facility] Dlojyjeq36/20/23 Office Visit Liberty Watson MD [facility] Ffpiwxki49/06/23 Office Visit Liberty Watson MD [facility] Begwppjk21/15/23 Office Visit [facility] MedicineShowing recent visits within past 540 days with a meds authorizing provider and meeting all other requirementsFuture AppointmentsDate Type Provider Dept12/23/23 Appointment [facility] appointments within next 150 days with a meds authorizing provider and meeting all other requirements 92471-5Spulxzwfd encounter XerpIJ3423-84-97Y56:52:24Telephone encounter NoteTXT1.2.840.502094.1.13.104.2.7.2.49806 9|[id number] for patient lmfh43972-6ZoukVGXTRQEZBGMXcydajgut C-CDA narrative rdfg571102417Hmayelq R Martinez [id number] TCKNTDRZUQMZVKPZ2073-16-16D62:52:241.2.840 .884682.1.72.3.15|1.2.840.934481.1.13.104. 2.7.2.727879_[id number] Mary Maldonado MA [facility] 2023-09-09 08:10:19 VS6jV4gm6/a2LOwPsCWofGuKGf43sGBc4XheJIDY 60 Pec+fwNUW7w7TpLJ1DK0LY1199-03-88N61:10:19F ormatting of this note might be different from the original.Images from the original note were not included. 30204-8Qjbgmbtwm encounter JvnfOG5942-53-23R04:11:39Telephone encounter NoteTXT1.2.840.910185.1.13.104.2.7.2.84966 9|7014319867PDFahqvbbiq for patient vxbm63925-7HwkfOQFGGRTWIYTHwpcpkjkc C-CDA narrative yeix66533808Qsocypqq M SaenzU[address]TXTX[address]7555[place] HZZPDIOOZOPUJTYE9232-93-90P32:11:391.2.840 .281158.1.72.3.15|1.2.840.809787.1.13.104. 2.7.2.727879_[id number] Suhas Mccarthy [facility] 2023-09-08 18:53:07 zIFyf5h7DlBuOr/kHcAG0Sa/PYcUiodAuxystqOE kt 6Yiyk4T67ernKw8OT/zyaD1905-90-21H42:53:07F ormatting of this note is different from the original.Called patient and spoke to her about options for weight loss. I also introduced her to Naltrexone and Buprorion vs Phentermine and Topiramate. She still would rather not try Zepbound for now since her insurance will be going out soon.Will increase her current prescription of Buproprion from 75 to 100 mg for the first week. For the second week take one tablet in the AM and PM. For the 3rd week and remainder of the time, take 2 tablets in the AM and 1 tablet in the PM.Naltrexone 50 mg:?Please start Naltrexone (25 mg) 0.5 mg tablet every morning for the first week. For the second week, please take 0.5mg in the AM and PM as well. For the third week and the remainder of the time, take one tablet daily. 89899-9Agqyzqwnh encounter IpnwHY7996-01-10Z06:15:02Telephone encounter NoteTXT1.2.840.201280.1.13.104.2.7.2.57322 9|1733277019YRDxsqnltmw for patient ktha58663-1OorqYEJVQGGCBIVJspqqzngi C-CDA narrative text[address] HoagAmdpllejuPluuvmccfIHVI1252205522DUXVPE PGWALGQAWURJIJQN6014-19-13L33:15:021.2.840 .191238.1.72.3.15|1.2.840.796831.1.13.104. 2.7.2.727879_[id number] [facility] 2023-09-08 15:58:06 AK7jNszoGdEkgJBILnugv0O9wXBPucqJkhgp7NXK Zo cYPEPN5q2I0u61i/9HIiwG9653-69-88X87:58:06F ormatting of this note might be different from the original.Responded to this is [employer] message. 10315-8Klvvlober encounter GpqaCQ0012-10-75F72:58:37Telephone encounter NoteTXT1.2.840.966366.1.13.104.2.7.2.66226 9|9102268391PMHjludyjbu for patient klnw50081-8LbxlEVXSRKLQMHCCefmvuync C-CDA narrative text[address] IhdbEojcbgfarUymarvxvrUPGJ0569253533BCFNYJ JOTCECRMAIPBKATC4943-08-39H02:58:371.2.840 .675003.1.72.3.15|1.2.840.762313.1.13.104. 2.7.2.727879_[id number] [facility] 2023-09-08 15:45:51 CY/W39KT+K+sqL4/1oghra0SS/HUVYrIx9EOpl+Z hd rxoEJhf46LAOIwh8zf3Ur61811-62-08V35:45:51F ormatting of this note might be different from the original.Deysi Alvarez is a 28 year old femalePt is calling to speak with provider regarding trying phentermine medication, Pt states, she would like to try since her BP has been under control, Please advise 87808-7Roiaxxhrr encounter FagsXY6855-74-32T62:49:37Telephone encounter NoteTXT1.2.840.647003.1.13.104.2.7.2.13915 9|9830247245VRJyugiimoy for patient smqb75926-7WjlaFLMNROWVGKDRviibrvlv C-CDA narrative cret545301943Ivztwk N [address]TXTX7755577555USDESTINY FERGUSONLMOVDWKZNOFIELXF8629-72-40X50:49:371.2.840 .549760.1.72.3.15|1.2.840.529614.1.13.104. 2.7.2.727879_[id number] Elvia Davison [facility] 2023-09-08 15:38:33 W9+KrEm77eJ8EZhWYGoCBlZtRCijl0h4COGbZ2dZ QL MaT672bOMt2DFhPj4XV+wr6342-04-90W14:38:33F ormatting of this note might be different from the original.Called patient and left a message about her concern about pancreatitis and how Zepbound is much safer than Phentermine. I will also send her a message through [employer]. 73965-6Dkcpclbrx encounter UyxnVT1787-66-81N34:44:43Telephone encounter NoteTXT1.2.840.630318.1.13.104.2.7.2.74861 9|9133863533XLJewfwgovl for patient thkh65970-1WaegUVNTOFEPOETEwamxpwym C-CDA narrative text[address]TXTX7755577555[place] PSSHWWMLQYMXRZCC9016-04-42N77:44:431.2.840 .137900.1.72.3.15|1.2.840.052776.1.13.104. 2.7.2.727879_[id number] [facility] 2023-09-08 15:34:[facility]/ri5fR6MjjCsWg23vezQSsh01KZLyZcHmmR 3s NPIxlfQB5y0763yH4xScNr0314-43-05X05:34:15F ormatting of this note might be different from the original.I responded to this in a [employer] message. 98834-0Bgwjzbeqq encounter WeulGB8291-92-71B54:35:15Telephone encounter NoteTXT1.2.840.520666.1.13.104.2.7.2.36575 9|4313195135VMAdinakwtb for patient cfhh79755-2EehdNPKDXNXGUIWYlutkstvd C-CDA narrative text[address] HeamVfvopxyizEolzgvkkzRFED9006806285VGWDLB ZGPYSXEFXKFVYYAY4307-13-60Z77:35:151.2.840 .818626.1.72.3.15|1.2.840.820075.1.13.104. 2.7.2.727879_[id number] [facility] 2023-09-08 14:59:33 je+PLami/kTKZw67eyqyTC8SQ859aQEEbxCJ03Mqq UR jfUaAIXaMpTPZEfnpShbxW4373-08-78F48:59:33F ormatting of this note might be different from the original.Patient called with concerns about taking Zepbound due to grandmother of pancreatic cancer. I advised her to read about medication on director surgical and FDA website and note that precautions regarding pancreatitis, ect are only addressed in relation to the patient and family history is not mentioned in precaution. Also stated that our providers do not prescribe medications they feel are not safe for their patients but it ultimately up to the patient whether they feel comfortable starting that medication. She responded back she does not want to start Zepbound and asking if phentermine can be prescribed insteadRouting for provider to advise. 48382-3Xetmezxam encounter CryvVR0799-65-63A46:09:57Telephone encounter NoteTXT1.2.840.221574.1.13.104.2.7.2.68937 9|7365339067URWwjeinfhb for patient khgk83918-3QzqwNFRGZEMULIQNwedzcvqw C-CDA narrative [id number] D Jetton [address]TXTX7755577555[place] RAMINKJAHHNNYNKV0056-26-45J44:09:571.2.840 .974093.1.72.3.15|1.2.840.353357.1.13.104. 2.7.2.727879_[id number] Nubia Proctor [facility] 2023-09-08 14:30:42 S0VbmAoHrChLSzaFolg7vh0tuBMccp4nKaXs7jTj a4 DkziT+nQ7/09fPS4mUjxjA3137-09-25Q75:30:42F ormatting of this note might be different from the original.Deysi Alvarez is a 28 year old female patient calling back has decided not to take Zepbound and is requesting RX for Phentermine instead. Please call [phone] signed by Tosha Foley at 09/08/2023 2:32 PM XZC76604-8Xzzbrjfpp encounter OezyFC5828-19-46D41:32:16Telephone encounter NoteTXT1.2.840.890096.1.13.104.2.7.2.94900 9|[id number] for patient uzan64887-2XjwlEWNUIQXGZRXBjlrcgddm C-CDA narrative [id number] [id number] MJWXUSQIPZHSHEAY0882-41-44K95:32:161.2.840 .720674.1.72.3.15|1.2.840.838585.1.13.104. 2.7.2.727879_[id number] Tosha Foley [facility] 2023-09-08 11:24:48 TPrHbWWiUDxg/B3lMpKM5vwF1jxDz5+Q30TtRAS7 AV rYnbplwZk+jwWvLKm4AstY8729-82-47S01:24:48F ormatting of this note might be different from the original.Provided information for patient through message on [employer]. 30561-7Ccrgwcvar encounter ZchkEP2538-10-60W71:25:09Telephone encounter NoteTXT1.2.840.472639.1.13.104.2.7.2.06476 9|[id number] for patient zhde96808-5JxpmXGNBYVCAGIIIavvqbzhn C-CDA narrative [id number] D Jetton [address] QufaSdmvxbantBlgdapfjmISJC3924061026EWFXFN DOYXQCLGAPEQMBTM5577-80-24B78:25:091.2.840 .804595.1.72.3.15|1.2.840.014293.1.13.104. 2.7.2.727879_[id number] Nubia Proctor LVN [facility] 2023-09-08 10:06:13 lZ6X0Ptty4ThpOSOe5esFfgDtVQhvP1w/uEOBesT Lv Ga+yrF9F/zVA8jwadnJGTW4670-62-18C66:06:13F ormatting of this note might be different from the original.This was already sent to [facility] outpatient pharmacy by Dr [address]. Closing encounter 56921-8Ziuxyvkxe encounter GblhSE5895-75-03P11:06:57Telephone encounter NoteTXT1.2.840.352988.1.13.104.2.7.2.01888 9|[id number] for patient zoqk77013-2OvqwGMNDOUQZPJVPlyfovbeo C-CDA narrative [id number] D Jetton [id number] VSTFGXURJERLQATW3024-98-63G56:06:571.2.840 .634452.1.72.3.15|1.2.840.145759.1.13.104. 2.7.2.727879_[id number] Nubia Proctor [facility] 2023-09-08 09:11:22 UIPTZsXLz4phvtJTk+qwGARTkjuP5tz4wfrcDDWC A4 g66/J1HN2LF/N+ofEJSl173100-65-71Y98:11:22F ormatting of this note might be different from the original.Deysi Alvarez is a 28 year old female patient calling to make sure that Zepbound 7.5 mg/0.5 mg is safe for her to take, maternal grandmother with Pancreatic Cancer Please call [phone] signed by Tosha Foley at 09/08/2023 9:13 AM HHL66581-6Mtjjsvmuq encounter RqhmMK1839-36-70E25:13:02Telephone encounter NoteTXT1.2.840.341143.1.13.104.2.7.2.61290 9|[id number] for patient wnxm09314-0HxxoHZPVWAMWCZAKfmmnqpfy C-CDA narrative [id number] [id number] FVTLXZPWUOYZUZMP6356-78-23Z82:13:021.2.840 .183834.1.72.3.15|1.2.840.829794.1.13.104. 2.7.2.727879_[id number] Tosha Foley [facility] 2023-09-08 08:54:24 RY1Eh0MXd0TTK+HEgGvhE+vGr1FE0p3h8T6LILQf k7 f2vgJ9CIMbTiUpJDP0nHmI2393-78-27C58:54:24F ormatting of this note might be different from the original.Attempted to contact patient. No answer, VM left. [employer] message sent.Sagar Byrnes RN 09/08/2023 8:54 AM 20997-1Mmbczzgjs encounter VgwrEG4613-92-05I88:59:26Telephone encounter NoteTXT1.2.840.535224.1.13.104.2.7.2.56074 9|[id number] for patient ivxo59297-8KmwoJSYAISIKTVWKbgpvpnpw C-CDA narrative [id number] Collins RN[address] MnrjUunljwgtdZjubslhkyEUKH0469136004WFKZUF HZOKVRDZSWMHTKAW3670-14-73R61:59:261.2.840 .683284.1.72.3.15|1.2.840.749638.1.13.104. 2.7.2.727879_[id number] Sagar Byrnes RN [facility] 2023-09-07 17:54:54 pR1UiV9uGqBmMl32wQodzxehx0k4z5w2jPLg+Tanisha GB RSiP1y/RCAsbZOXh1mQfJH0065-40-18Z28:54:54A ddended by: LIBERTY ANSARI on: 09/07/2023 05:54 PMModules accepted: Orders 62713-1Vtncqvig QcocvnazGL5015-34-87N85:54:54Addendum DocumentTXT1.2.840.906776.1.13.104.2.7.2.7 72020|[id number] for patient ozem46195-8VgnxUMANYBCLOWBXwpqywkav C-CDA narrative text[address] HwpqGvlxclrumQicyycwfyCMCX5476421343PCMNOO YPMVALIJYQBFYLGW8850-69-15C82:54:541.2.840 .729958.1.72.3.15|1.2.840.053252.1.13.104. 2.7.2.727879_[id number] [facility] 2023-09-07 17:54:32 ZacHBnJqqh6nB2ENhkis8+3Bs17wqZbOgmpUuu5a Aa K2SJHyPEqNNUyXBQTOsxqg9021-87-33M57:54:32F ormatting of this note might be different from the original.1. Class 1 obesity due to excess calories with serious comorbidity and body mass index (BMI) of 33.0 to 33.9 in adult- tirzepatide, weight loss, (ZEPBOUND) 2.5 mg/0.5 mL subcutaneous injection; inject 2.5 mg under the skin weekly. Weight loss [Zepbound]. Start 2.5mg qWeek x 4 weeks, then increase to 5mg qWeek x 4 weeks, then increase to 7.5mg qWeek. Dispense: 2 mL; Refill: 0- tirzepatide, weight loss, (ZEPBOUND) 5 mg/0.5 mL subcutaneous injection; inject 5 mg under the skin weekly. Weight loss [Zepbound]. Start 2.5mg qWeek x 4 weeks, then increase to 5mg qWeek x 4 weeks, then increase to 7.5mg qWeek. Dispense: 2 mL; Refill: 0- tirzepatide, weight loss, (ZEPBOUND) 7.5 mg/0.5 mL subcutaneous injection; inject 7.5 mg under the skin weekly. Weight loss [Zepbound]. Start 2.5mg qWeek x 4 weeks, then increase to 5mg qWeek x 4 weeks, then increase to 7.5mg qWeek. Dispense: 4 mL; Refill: 1 74633-2Tdspgbvps encounter ArbnJB4379-51-71K44:54:43Telephone encounter NoteTXT1.2.840.439841.1.13.104.2.7.2.15875 9|[id number] for patient zamb37558-1AmogJDCFKRSINDVNvsrarmuq C-CDA narrative text[address] UshsAbgtsrsbaCpozlytkpBGTO1635248211KDTIOC YYEHGFKPYDCDKWUR7899-66-61I70:54:431.2.840 .230773.1.72.3.15|1.2.840.764643.1.13.104. 2.7.2.727879_[id number] [facility] 2023-09-07 16:19:08 fcJOBjlZwmUjyzfWejw+VbnwVlZFZ6IXmzjaIEjD zn GWlDgktLUoj8Iu89CQY+8J4141-46-12U51:19:08F ormatting of this note might be different from the original.Patient is wanting to have IUD is currently on control pills want to know if Dr Wall thinks this is good option for her. 81267-0Qixennymg encounter NcyvRK9968-23-10W21:20:06Telephone encounter NoteTXT1.2.840.991403.1.13.104.2.7.2.24766 9|[id number] for patient wtlm92561-7HzegUZFUPMXKCWMQjvsvndtg C-CDA narrative jzqr845380157Agrnk [address] XATQZWDFNRAIRUDL1260-42-21V23:20:061.2.840 .237340.1.72.3.15|1.2.840.031859.1.13.104. 2.7.2.727879_[id number] Yanci Wolfgang [facility] 2023-09-07 15:56:54 7kY2l4HzBkuZdr/YDxBUXKRgQ6fZfpWhbAGwt90h 2l mySjz8JzivMfNQEI1soeXz7591-62-23J79:56:54F ormatting of this note might be different from the original.Deysi Alvarez is a 28 year old femalePatient requesting tirzepatide 5 mg/0.5 mL subcutaneous injection and tirzepatide 2.5 mg/0.5 mL subcutaneous injection be sent [facility] [address] [facility], [address] [facility] [address]Jjipd: [phone] Keazcpawzjmsog signed by Nicole Armstrong at 09/07/2023 3:59 PM QXB10199-5Umzqzaddz encounter CbwsIB2405-77-01C97:59:21Telephone encounter NoteTXT1.2.840.320417.1.13.104.2.7.2.57325 9|[id number] for patient sbhu19216-1RfnqETZVLMMQZBAGduobzgyd C-CDA narrative rcdy255252552Jnzwxs A [address]XqkoJqkstquieRstuqjdytQBII8673754814SXJFOX FAUAWUTXIYCVPNLP1989-61-24R14:59:211.2.840 .177829.1.72.3.15|1.2.840.255696.1.13.104. 2.7.2.727879_[id number] Nicole Armstrong [facility] 2023-09-07 10:37:51 BjdJAm7nmQcQS223Zoe8Rv9ETvW3HiX5/6mYiZdy Ws V6sUDWj8srm71yFNRT6SyM4325-87-66X69:37:51F ormatting of this note might be different from the original.Sofialo,The Mounjar[employer] was not covered due to using for weight loss and not type 2 diabetes. I did speak with Ms. Alvarez and she would like to try Zepbound. She is aware it is not covered, but would like to use the copay card. If a prescription for Zepbound could please be sent to [facility]. Please let me know if there are any questions or concerns.Thank you 24377-6Ndwpfaflj encounter IyxfHZ8067-18-88Y83:40:22Telephone encounter NoteTXT1.2.840.111077.1.13.104.2.7.2.50681 9|[id number] for patient xpry85908-8ApenCUMNXXLOOGSXrwpywwuw C-CDA narrative lpay145140174Daniqu [address] VbzgKwzucnvfcGskzthrbdFUKG8197622239IQZXAL WEKPPDJDDAVHUDMC1342-56-97M33:40:221.2.840 .007413.1.72.3.15|1.2.840.730088.1.13.104. 2.7.2.727879_[id number] Maria Del Carmen Byrnes [facility] 2023-09-06 16:15:00 uJ+J1JCR3RMLF24d46nRAiL+YNjwNjhnraR+2lqz gw 9/a5sohmTNYUkMOewG1LUB5291-63-48T90:15:00F ormatting of this note is different from the original.Images from the original note were not included.Venipuncture collection performed by clean technique on the right anticubitus. Total of 1 attempts were made. Slight pressure and a bandage/dressing were applied to the site(s). The patient experienced no complications. The following specimens were processed according to instructions and sent to [facility] laboratories per lab order on 09/06/2023:LT BLUESST 1REDLAVPPTDK GREEN (LiHep)DK GREEN (SodH)GRAYDK BLUE (K2)DK BLUE (S)ACDBlood CultureNIPT/NTD 80507-9Aowwl YfvgSO7380-57-49A89:09:02Nurse NoteTXT1.2.840.883748.1.13.104.2.7.2.58826 9|[id number] for patient mxjg54501-6Wlwpf NoteLNNARRATIVEFormatted C-CDA narrative text[address] PuenStyxgpwlcFnonrgpsdVDDW6825431914EOJNWE BDGENVJKDWLIPBNS1846-72-79O06:09:021.2.840 .111136.1.72.3.15|1.2.840.378601.1.13.104. 2.7.2.727879_[id number] [facility] 2023-09-06 16:02:08 quokDiaXOw+C/iQqlMvL5jf0zTVyU6z/JfX5zEj4 5N KafyTSaHcu7v6IJuLhsyBg6704-74-78E68:02:08F ormatting of this note might be different from the original.Pt at lab to get labs drawn. No current lab orders placed for upcoming appt tomorrow. Per EMILY :Plan- START LT4 125 mcg early in the AM since she reports the 112 mcg is not helping her.- levothyroxine 125 mcg tablet; Take 1 tablet by mouth every morning. Dispense: 90 tablet; Refill: 0- THYROID STIMULATING HORMONE; Future- T4 FREE; FutureTSH and T4 Free orders placed per EMILY plan. 03146-6Edzedhree encounter FgxiCD0554-84-73T13:09:34Telephone encounter NoteTXT1.2.840.076802.1.13.104.2.7.2.78280 9|[id number] for patient kwnx89986-1QojsFLXJGQDVMCZIhlnlhhst C-CDA narrative [address]TXTX[address]7555USUSGA FPFCZYZFUUSMOJVR2188-87-03V24:09:341.2.840 .913266.1.72.3.15|1.2.840.559984.1.13.104. 2.7.2.727879_[id number] [facility] 2023-09-06 15:35:10 nVZd8EOd3C1Xl0mbVHIg5v1UJIqjKgH/8WzbXtb+ m4 tBMtwWmdygwYJ85JSJwCs03372-00-56Z59:35:10F ormatting of this note might be different from the original.Copied from [facility] #[id number]. 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 Please send to Pharmacy. 85040-6Fncvcnudm encounter KewnYY2465-35-79N84:36:20Telephone encounter NoteTXT1.2.840.574813.1.13.104.2.7.2.75046 9|[id number] for patient srwx39382-6TdrnFODGNRZKYNGRsdqjqffa C-CDA narrative [address]TXTX7755577555[place]GA VDZFICMKCMEYLVKT8902-20-87I89:36:201.2.840 .618158.1.72.3.15|1.2.840.488912.1.13.104. 2.7.2.727879_[id number] [facility] 2023-08-23 15:00:28 hysQNS7x5sn3yAOiLHP+p3IvJWIOU08wDS7fAEpR M6e8zSsJNleZcHByv8tZ1V1533-39-65R58:00:28F ormatting of this note might be different from the original.EMILY 05/14/23NOV 09/07/23Per EMILY note:START LT4 125 mcg early in the AM since she reports the 112 mcg is not helping her. 48421-5Jephdykxh encounter BkprWI4124-51-81L94:01:23Telephone encounter NoteTXT1.2.840.582805.1.13.104.2.7.2.56457 9|[id number] for patient pmdi64681-5MsvcWOQJWXAFEWGOxgwxqhyo C-CDA narrative vptx273960930Qrgy D [place] [address] NjjlCggpbwvnoFsdaxgyliBXJE1606469095RAMITA NGPVCBGBOYPKVPZF9385-38-47D45:01:231.2.840 .810196.1.72.3.15|1.2.840.421777.1.13.104. 2.7.2.727879_[id number] Nubia Proctor LVN [facility] 2023-02-04 21:53:08 ywCGiiH+xnQKbTFflQ2evSu0SZajCPDu5vqU7Xuh QU uocU8npWctTYmwj2Jwg2XC3173-76-25Y17:53:08F ormatting of this note might be different from the original.Notify the [place] [address]-0Qrrkfiflr encounter ZwkoNR2700-32-21N44:54:28Telephone encounter NoteTXT1.2.840.254985.1.13.104.2.7.2.62301 9|[id number] for patient mtfv81174-0AyuuCCMQPPRKRG[address]TXTX7755577555[place]USGA AJIBOYSMYPCQQVQT8491-92-55K64:54:281.2.840 .856006.1.72.3.15|1.2.840.469977.1.13.104. 2.7.2.727879_[id number] [facility] 2023-02-04 10:44:26 gb/g5IVChbXF3HUSRkIXT5OTHrXMdvbx8kQk6V3 9L8S1po0GnC7AEhMk425zu7857-37-22K18:44:26F ormatting of this note might be different from the original.Duplicate message.FLORENCE SALINAS RN 02/04/2023 10:44 AM 16050-8Potuvjzkh encounter FtxeRQ7003-62-89D30:44:39Telephone encounter NoteTXT1.2.840.065026.1.13.104.2.7.2.09738 9|1134110487TFTmlubmavw for patient vfon82931-2CwnpNTTZGCJFEO[address] StreetTXTX7755577555USUSGA JWXRFAZSMSITDOWN5287-69-79W21:44:391.2.840 .559844.1.72.3.15|1.2.840.921693.1.13.104. 2.7.2.727879_[id number] [facility] 2022-07-04 12:47:00 R75044107408q0Kzvufe8FnHMmXoooYSoxR+4PVr 7M wK2+6XPywqVpitEir/o+mbNrMCwgPzUm1R0776-89- 07T12:47:00 [facility] ([facility])EMERGENCY PROVIDER REPORTREPORT#:[id number] REPORT STATUS: SignedDATE:07/04/22 TIME: 1247 PATIENT: DEYSI ALVAREZ UNIT #: [id number]#: [id number] ROOM/BED:AGE: 27 SEX: F PCP PHYS: Ibrahima Peñaloza III MDSERVICE AUTHOR: Rajesh Leavitt MD * ALL edits or amendments must be made on the electronic/computer document * HPI-General Illness GeneralInitial Greet Date/Time 07/04/22 1204 PresentationChief Complaint Vaginal bleeding Free Text HPI NotesFree Text HPI Notes27 years old patient no past medical history G2, P0 13 weeks presents complaining of 1 day of brownish discharge and cramping, no leakage of fluid urinary symptoms or any other complaints. Review of Systems ROS StatementsAll systems rev neg except as marked. Free Text ROS NotesFree Text ROS NotesCONSTITUTIONAL: Normal; negative for fever, weight change, fatigue, or aching.HEENT: Eyes normal; negative for, irritation, or visual field defects. Ears normal; Negative for pain . Nose normal; Negative for runny nose, sinus problems, or nosebleeds. Mouth normal; Negative for dental problems,. Throat normal; Negative for hoarseness, difficulty swallowing, or sore throat.CARDIOVASCULAR: Normal; Negative for chest pain or, high blood pressure, orthopnea, PULMONARY: Normal; Negative for cough, sputum, shortness of breath or wheezing, SKIN: Normal; Negative for rashes.MUSCULOSKELETAL: Normal; Negative for back pain, joint pain.NEUROLOGIC: Normal; Negative for blackouts, headaches, seizures or dizziness.PSYCHIATRIC: Normal; Negative for anxiety, depression, or phobias.ENDOCRINE: Normal; Negative for diabetes, thyroid.HEMATOLOGIC/LYMPHATIC: Normal;Negative for anemia, swollen glands, or blood disorders.IMMUNOLOGIC: Negative; Negative for steroids, chemotherapy, or cancer.VASCULAR: Normal; Negative for varicose veins, blood clots, or leg ulcers. Past Medical History - AdultStated Complaint 13 WEEKS AND BLEEDINGAllergiesCoded Allergies:Penicillins (Severe, RASH 07/04/22) Home MedicationsReported MedicationsPNV WITH FE FUMARATE/FA () 1 TAB PO DAILY Physical Exam Vital SignsVital SignsFirst Documented: Result Date Time Pulse Ox 100 07/04 1118 B/P 145/94 07/04 1118 B/P Mean 111 07/04 1118 O2 Delivery Room air 07/04 1117 Temp 36.8 07/04 1117 Pulse 92 07/04 1117 Resp 18 07/04 1117 Last Documented: Result Date Time Pulse Ox 100 07/04 1118 B/P 145/94 07/04 1118 B/P Mean 111 07/048 O2 Delivery Room air 07/04 1117 Temp 36.8 07/04 1117 Pulse 92 07/04 1117 Resp 18 07/04 1117 Review of Vital Signs Reviewed, Vital signs normal Basic Physical ExamBasic PE GEN: Well appearing/NAD, EYES: PERRL, conj clear, NECK: Supple, RESP: No resp distress, CV: Reg rate rhythm, ABD: Soft/non-tender, EXT: No gross abnormality, SKIN: No rashes, warm/dry, NEURO: alert oriented, NEURO: gross movement NL Interpretation Diagnostics Lab Results InterpretationResultsLaboratory Tests 07/04/22 1140:[Embedded Image Not Available]Laboratory Tests: 07/04 07/04 07/04 1140 1140 1128 [...] % (Auto) (14.5 - 29.7 %) 26.6 Tripp % (Auto) (3.6 - 10.2 %) 7.0 Eos % (Auto) (0.0 - 3.0 %) 1.0 Baso % (Auto) (0.1 - 0.9 %) 0.4 Neut # (Auto) (K/mm3) 4.7 Lymph # (Auto) (K/mm3) 1.9 Tripp # (Auto) (K/mm3) 0.5 Eos # (Auto) (K/mm3) 0.07 Baso # (Auto) (K/mm3) 0.0 Miscellaneous Maternal Serum HCG 67797 Urines Urine Color (YELLOW) YELLOW Urine Appearance (CLEAR) CLOUDY H Urine pH (5 - 9) 8.0 Ur Specific [place] (1.001 - 1.035) 1.020 Urine Protein (NEGATIVE) [...] Bacteria (NONE SEEN #/hpf) MANY H Recent Impressions:ULTRASOUND - US PREG UT TRANSVAGINAL 07/04 1350 Report Impression - Status: SIGNED Entered: 07/04/2022 1552 IMPRESSION: 1. Single live intrauterine gestation corresponding to 13 weeks and 6 days by crown-rump length. 2. heart activity of 157 the the bpm. 3. Low-lying placenta with 6.5 x 1.1 x 3.3 cm retroplacental hemorrhage along the lower uterine segment. 3.2 x 3.5 x 0.8 cm subchorionic hemorrhage along the left anterolateral aspect of the gestational sac. Impression By: HYUN Dutton AB/PEL/SC/LTD 07/04 1350 Report Impression - Status: SIGNED Entered: 07/04/2022 155 IMPRESSION: 1. Single live intrauterine gestation corresponding to 13 weeks and 6 days by crown-rump length. 2. heart activity of 157 the the bpm. 3. Low-lying placenta with 6.5 x 1.1 x 3.3 cm retroplacental hemorrhage along the lower uterine segment. 3.2 x 3.5 x 0.8 cm subchorionic hemorrhage along the left anterolateral aspect of the gestational sac. Impression By: HYUN Dutton PREG EVAL 1ST TRIMTR 07/04 1350 Report Impression - Status: SIGNED Entered: 07/04/2022 1551 IMPRESSION: 1. Single live intrauterine gestation corresponding to 13 weeks and 6 days by crown-rump length. 2. heart activity of 157 the the bpm. 3. Low-lying placenta with 6.5 x 1.1 x 3.3 cm retroplacental hemorrhage along the lower uterine segment. 3.2 x 3.5 x 0.8 cm subchorionic hemorrhage along the left anterolateral aspect of the gestational sac. Impression By: Evi Aguilar MD Patient Discharge Departure Vital Signs/ConditionVital SignsFirst Documented: Result Date Time Pulse Ox 100 07/04 1118 B/P 145/94 07/04 1118 B/P Mean 111 07/04 1118 O2 Delivery Room air 07/04 111 Temp 36.8 07/04 111 Pulse 92 07/04 1118 Resp 18 07/04 1118 Last Documented: Result Date Time Pulse Ox 100 07/04 111 B/P 145/94 07/04 111 B/P Mean 111 07/04 111 O2 Delivery Room air 07/04 1117 Temp 36.8 07/04 1117 Pulse 92 07/04 1118 Resp 18 07/04 111 All vital signs available at the time of this entry have been reviewed. Condition Stable, Improved Clinical ImpressionClinical ImpressionPrimary Impression: Subchorionic bleedTime of Impression 1625 Disposition DecisionDischarge )( Discharged to Home Yes )( Time 1625 )( Date 07/04/22 Discharge/Care PlanPatient Instructions Bleeding During Early at 0639RPT #:[id number] OF REPORTEDEmerarkansas children's hospital department hzxonr8098-22-63B14:47:00F.EAMA30876592-08 57AVAvailable for patient yovlJOLFHHURNZNRET3510-87-99R03:40:03 [facility] 2018-09-28 15:17:04 BZbhvlcwuii03654wAPIuiFkSl4Rv/htHRKLjZD+ z77NVOzzIH9sLlWqmZRMti2ACixodhXCg5LXj96785 --T15:17:04 [place] [address] Patient Name: DEYSI ALVAREZ Patient#: [id number] Date: 08/30/2018 Date: 08/31/2018 Age/Gender: 23/FDate of : 1995S//BED: OBE/291/AAdmitting Phys: IUMY-SURGERY [facility] DISCHARGE SUMMARY DATE OF ADMISSION: 08/30/2018 DATE OF DISCHARGE: 08/31/2018 ADMITTING DIAGNOSESEpigastric left upper quadrant pain with abnormal liver enzymes, status postlaparoscopic cholecystectomy. DISCHARGE DIAGNOSESGastritis, fatty liver. HOSPITAL COURSEThe patient had a laparoscopic cholecystectomy 5 days prior to this admission, came to the emergency room complaining of indigestion type symptoms,epigastricpain, nausea, vomiting, reflux. She has been dealing with this for about 6months before her laparoscopic cholecystectomy and was treating the mlvbmavlqkxpoa-yxk-rcvqepf medication. Her liver function tests were elevated, but most likely due to fatty liver. She did not have stones initially to begin with,soI doubt that she had any retained common bile duct stone. She was admitted.Aconsult for GI was placed. GI performed an EGD showing mild grade 1 refluxesophagitis, gastritis, small hiatal hernia, normal duodenum. Her white count was normal. On admission, hemoglobin was stable. Her liver function testswereslightly elevated, AST 147, ALT 355, alkaline phosphatase 135, but still lower than when she had the elevation before surgery. Her total bilirubin wasnormal.This was all consistent with fatty liver, and not a retained stone, as paz did not have stones to begin with, I believe. Lipase was normal.Hepatitis studies were negative. Upon discharge, her LFTs were trending downalready after the EGD. She was discharged feeling better andtolerating a diet. To follow up with me in 2 weeks. To not do any heavylifting until seen by me. Nacho Meraz MD TT: 09/28/2018 15:17:04IT/MODLJob #: [id number] Authenticated by:Nacho Stephens MD on 10/03/2018 06:55 AM CDT Legally authenticated by KT AHMADI 2018-10-03 06:55:57DSDischarge djoclmw75363IBWPZQ-AKBRX, EISZ-VNZPZCPI-YRTYXHREC-JD5821-13-91O18:17 :[id number] 2436075LXWRAAFP01007QSVROG-GLYIX, TKLA-VHHXLVGCZHXPKR2657-67LOQWTZAUBOOUSM1392-89-62W90:58:46 [facility] 2018-08-31 11:47:50 IQtcyxkilri05131B7C8NvJb0pwQgyLZeFrYOF24 dF sZsh5OCZbwI8EkENq2v1Gn2HGDHhkmAyldru3Q5726 -08-31T11:47:50 [facility] [place] [address] Patient Name: DEYSI ALVAREZ Patient#: [id number] Date: 08/30/2018 of : 1995 Age/Gender: 23/FHSSV/RM[place] [facility] [place]/AAdmitting Phys: Nacho Meraz MD OPERATIVE NOTE DATE OF SURGERY: 08/31/2018 SURGEON: Johan Valle DO PROCEDUREEsophagogastroduodenoscopy with biopsy. INDICATIONAbdominal pain, dyspepsia. See consultation this date. ANESTHESIAShe is ASA 3. Monitored anesthesia care provided. DESCRIPTION OF PROCEDUREAfter informed consent was obtained, the patient was positioned for theprocedure. Video gastroscope was inserted. Examination of the esophagus demonstratesminimal changes of reflux esophagitis at the GE junction. Retroflexed view in the stomach demonstrates a small hiatal hernia. Stomach distends normally.Mild antral gastritis. Biopsies obtained. Pylorus: Patent. Duodenal bulb,postbulbar duodenum: Normal, bile stained. Scope was withdrawn. The patient tolerated it well and transferred to recovery in stable andsatisfactory condition. IMPRESSION1. Mild grade 1 reflux esophagitis.2. Mild gastritis; biopsies obtained.3. Small hiatal hernia.4. Normal duodenum. RECOMMENDATIONSAt this time observe. Continue with proton pump inhibitor therapy. LFTs aretrending down and their elevations are multifactorial as outlined in myconsultation. The viral hepatitis panel and MRCP are pending. We will awaitthose results with further recommendations to follow. Reviewed with patientandmother postprocedure. Understanding is voiced. Johan Valle DO TT: 08/31/2018 11:47:50LANE/Diogenes #: [id number] cc: Nacho Meraz MDFax: Mason Lyon MDFax: Pkkscjkxpwtuwn Authenticated by:Johan Valle D.O. on 08/31/2018 01:28 PM [employer] SUPERVISOR Legally authenticated by LEONARD PRADO 2018-08-31 01:28:58OPOperative vcpdvd28149DIBQFELI VALLETRDUUDNUGGEGME4231-32-15G31:47:[id number] HRR83230ULVPJOHAN MICHAELWZKGXKVORCHIPIWXE8940-24-21U27:35:21 [facility] 2018-08-31 03:51:38 LDqmiuzaxem46346afgBZgPbTF1xEx115CnfAq65 J0 f2Hwjc1//ULcn6aa8JCwPVis8B9WW0sndvVEnb0619 -03-06T03:51:38 [place] [address] Patient Name: DEYSI ALVAREZ Patient#: [id number] Date: 08/30/2018 of : 1995 Age/Gender: 23/FHSSV/RM[place] [facility] [place]/AAdmitting Phys: Nacho Meraz MD CONSULTATION NOTE DATE OF CONSULTATION: 08/30/2018 ATTENDING PHYSICIAN: Nacho Meraz MD REFERRING PHYSICIAN: Mason Lyon MD REQUESTED BYNacho Meraz MD. REASON FOR CONSULTATIONAbdominal pain, abnormal liver enzymes. Five days post laparoscopiccholecystectomy. HISTORY OF PRESENT ILLNESSThe patient is a 23-year-old obese white woman with a BMI of greater than 45whohas had multiple ER visits with indigestion-type symptoms and pain in therightupper quadrant. Her reflux symptoms have been ongoing for over 6 months, andshe has been treating them symptomatically with vfar-hrx-crafdbk medications.She had an ultrasound recently, on August 25, that demonstratedcholecystitis, underwent laparoscopic cholecystectomy. Liver enzymes havebeensomewhat elevated, most likely due to fatty liver and/or somewhat reactivechanges after surgery, but patient continues to be symptomatic. Upon furtherdiscussion, it appears that she had 2 separate symptoms or pains; one in theright upper abdomen and the other one that is more consistent with refluxdisease. The right upper quadrant symptoms have resolved, but she continuestohave epigastric and substernal discomfort. PAST MEDICAL HISTORYRemarkable for obesity, hypertension, Be thyroiditis. PAST SURGICAL HISTORYNo previous surgeries. ALLERGIESPENICILLIN. HOME MEDICATIONS/CURRENT MEDICATIONSReviewed. SOCIAL HISTORYNo tobacco, alcohol. Good family support. Mother is with her tonight. FAMILY HISTORYDiabetes, hypertension, heart disease, obesity. REVIEW OF SYSTEMSOutlined above. PHYSICAL EXAMGENERAL: Pleasant woman. No emergent distress.VITAL SIGNS: Stable.HEENT: Sclerae are nonicteric. Oral mucosa without ulceration or lesion.NECK: Supple. Neck veins flat.LUNGS: Relatively clear.Legally authenticated by LEONARD PRADO 2018-08-31 01:28:30CARDIAC: Heart sounds regular.ABDOMEN: Soft. Minimal discomfort, most likely postoperative in nature.EXTREMITIES: Without edema.NEUROLOGIC: Nonfocal. Gait not tested. LABORATORY STUDIESMarch 1st AST 145, ALT 59. Preop on the they were normal. On the 2nd,[id number]. On the , ALT 599, AST 547. Today, they are trending down. AST 147,ALT 355. Bilirubin is normal. Alk phos with minimal elevation. IMPRESSION1. Abdominal pain, somewhat improved, but continues to be symptomatic morefrom what appeared to be reflux-type symptoms.2. Abnormal liver enzymes, again multifactorial including fatty liver asdemonstrated by imaging studies previously and most likely postoperativechange that I commonly see the first few days after cholecystectomy. PLANAt this time, we will observe. She is scheduled for an MRCP which I suspectwill be normal. If that is negative, we will proceed with an upper endoscopy, with further recommendations to follow. Reviewed with the patient and Motherregarding the above. They voiced understanding. They are agreeable toproceed,with further recommendations to follow. Johan Valle DO TT: 08/31/2018 03:51:38LANE/MODLJob #: [id number] Authenticated by:Johan Valle D.O. on 08/31/2018 01:28 PM [employer] SUPERVISOR Legally authenticated by LEONARD PRADO 2018-08-31 01:28:27OGUuhfawjgszkw21615CLKS, [id number]:[id number] [id number], VPCHNNMFJRXZRMGCJ4724-31-44Q23:34:05 [facility] 2018-08-26 13:02:51 NEearpmjrhn03543BcN2pLV56oD+4Z+/cqpehy/p 1A UyTbxQOdF4jY8EbXzwR3erC2LTIrsdQ/EchCSK04792018T13:02:51 [place] [id number] Patient Name: DEYSI ALVAREZ Patient#: [id number] Date: 08/25/2018 of : 1995 Age/Gender: 23/FHSSV/RM/BED: [facility]/AAdmitting Phys: Esequiel Galvan MD OPERATIVE NOTE DATE OF SURGERY: 08/25/2018 SURGEON: Nacho Meraz MD STOVE REFINISHER: None. PREOPERATIVE DIAGNOSISAcute cholecystitis. POSTOPERATIVE DIAGNOSISAcute cholecystitis. PROCEDURELaparoscopic cholecystectomy. ANESTHESIAGeneral endotracheal anesthesia. ESTIMATED BLOOD LOSSMinimal. COMPLICATIONSNone. SPECIMENGallbladder. DISPOSITIONPACU. PROCEDURE NOTEAfter informed consent was obtained, patient was taken to the operating room,placed supine on the operating table. Bilateral lower extremity SCDs wereplaced and functioning prior to anesthesia induction. Once anesthesia wasinduced, abdomen was prepped and draped in standard surgical fashion.Time-outwas completed. Preoperative antibiotics were given. I obtainedpneumoperitoneum through a right upper quadrant 5 mm Optiview trocar.Pneumoperitoneum was obtained. I then placed a 12 trocar in theinfraumbilicalarea, another 12 trocar in the epigastric area, and another 5 trocar rightupperquadrant lateral to the first one. She was placed in reverse Trendelenburg,right side up. The fundus of the gallbladder was grasped and retractedcephaladover the liver. The gallbladder was acutely inflamed with significant edemabutno infection, no gangrene. Infundibulum was grasped and retracted laterally,inferiorly, exposing triangle of Calot. Blunt dissection with Kittner andrightangle was performed, identifying the critical view. Cystic artery and ductwereclipped and transected without any complication. Gallbladder was removed from the gallbladder fossa, obtaining hemostasis along the way, placed in anendobagand retrieved through infraumbilical port site. Right upper quadrant wasirrigated. Irrigation fluid was evacuated. I removed the pneumoperitoneum,Legally authenticated by KT AHMADI 2018-09-28 02:32:05removed the ports, and closed the infraumbilical port site with 0 Vicryl VY7uesnoo-xk-avjfq stitch. Skin was closed with 4-0 Monocryl, Dermabond. Lapcount and instrument count were correct. Transferred to recovery, extubated,under stable condition. Nacho Meraz MD TT: 08/26/2018 13:02:51IT/MODLJob #: [id number] Authenticated by:Nacho Stephens MD on 09/28/2018 02:32 PM CDT Legally authenticated by KT AHMADI 2018-09-28 02:32:05OPOperative xnzkwq38488SURLPT-IKLHR, KHRN-RGJZMPTD-HRWVPQFKY-[id number]:02 :[id number]-HBGGO, GWVF-DUDGGXSDLJTOQY5687-70NWAKIGPKVHBTNH7011-16-88S78:35:53 [facility] 2018-08-25 10:48:53 LSoqrjxjwah62874JQOEXMzbi7MNtVdt6KN2+Zqz bw Z1rEE6RAUIwnR0+DjhvshuTcjx59DkOJu3lGWs5092 -02-28T10:48:53 [address] [address] [place] [address] Patient Name: DEYSI ALVAREZ Patient#: [id number] Date: 08/25/2018 of : 1995 Age/Gender: 23/FHSSV/RM/BED: OBE/[facility]/AAdmitting Phys: Esequiel Galvan MD HISTORY AND PHYSICAL HISTORY OF PRESENT ILLNESSThe patient is a 23-year-old female admitted via the emergency room. She presents with a 2-week history of abdominal pain. She rates the pain asepisodic. It is severe at times. She rates the pain as 8/10. It is in boththe epigastric, as well as the right upper and left upper quadrant regions.Precipitating factors include alcohol and fatty foods. She presented to theemergency room 4 nights ago with the above symptoms. She had a CT scan of the abdomen which showed a fatty liver. She was given symptomatic treatment andtold to return to her prior primary care and see a GI physician, as well. She was given dicyclomine and treated for possible urinary tract infection by [facility] care physician. Last night, the pain intensity got worse, and she then presented again to theemergency room. An ultrasound of the abdomen has been performed, results arepending. Her LFTs were normal. PAST MEDICAL HISTORY1. Anxiety disorder.2. Be hypothyroidism.3. Fatty liver.4. Morbid obesity.5. Recent urinary tract infection. MEDICATIONS1. Lexapro.2. Levothyroxine 125.3. Dicyclomine.4. Nitrofurantoin. ALLERGIESPENICILLIN. FAMILY HISTORYNoncontributory. SOCIAL HISTORYOccasional alcohol use. Does not smoke. Lives with her fiancee. No previous pregnancies. REVIEW OF SYSTEMSGENERAL: No fever, chills, or rigors. No weight loss.CARDIOVASCULAR: Denies chest pain, orthopnea, PND, ankle edema, orpalpitations.RESPIRATORY: Denies dyspnea, wheeze, hemoptysis, or coughing.GI: As per HPI. She has had nausea without any vomiting. No diarrhea orhematochezia. No hematemesis.URINARY TRACT: No dysuria, frequency, hematuria, or nocturia.SKIN: No rashes or itching.SKELETOMOTOR: No joint pains, deformities, or swelling.CENTRAL NERVOUS SYSTEM: Denies headache, syncope, seizures, loss ofconsciousness, or focal neurological deficit.PSYCHIATRIC: Has chronic anxiety disorder for which she is taking Lexapro.Denies depression.ENDOCRINE: No thirst, polyuria, or polydipsia. No heat or cold intolerance.Legally authenticated by COREY IRAHETA 2018-08-26 08:52:29EYES: No visual changes or blurring. No redness of conjunctivitis.ENT: Denies nasal congestion. No vertigo or tinnitus. No soreness of thethroat or hoarseness of the voice. EXAMINATIONGENERAL: A young female, obese, lying in bed. At this time, she was not indistress. She had received morphine.VITAL SIGNS: Temperature 98.1, pulse 97, respiratory rate 16, blood bnutejxk799/80, O2 sats 100% on room air.SKIN: No anemia, cyanosis, jaundice, clubbing, or dehydration.HEENT: Normocephalic. Pupils were equal. Extraocular movements were full.Nolid lag or lid retraction.NECK: Supple. Thyroid not enlarged.HEART: Normal first and second heart sounds. No added sounds, murmurs, orrubs.CHEST: Air entry was equal. Breath sounds vesicular throughout.ABDOMEN: Tender in the epigastrium, as well as in the right upper quadrant on palpation. No masses were felt. There was no guarding. Bowel sounds werenormoactive.EXTREMITIES: No pedal edema. Calves were soft and supple. Pulses werepalpable.CENTRAL NERVOUS SYSTEM: Cranial nerves 2-12 were intact bilaterally. Motorpower in upper and lower extremities was equal and normal bilaterally. INVESTIGATIONSBMP normal. Total protein 7.3, albumin 4.1, bilirubin 0.2, AST 22, alk phos60,ALT 28, lipase 65. White blood cell count 11.8, hemoglobin 13.8, umlboakai687. test was negative. Urinalysis was clear on this occasion. A CT scan of the abdomen done last week, reviewed. It shows fatty liver. Ultrasound of abdomen done this morning; report is pending. ASSESSMENTA 23-year-old female with epigastric and right upper quadrant pain, likely:1. Acute cholecystitis.2. Morbid obesity.3. Fatty liver.4. Be hypothyroidism.5. Recent urinary tract infection.6. Anxiety disorder. PLAN1. Keep n.p.o.2. IV fluids.3. IV ceftriaxone and Flagyl.4. General Surgery consult.5. IV Pepcid.6. Further recommendations to follow. Esequiel Galvan MD TT: 08/25/2018 10:48:53JA/MODLJob #: [id number] Authenticated by:Esequiel Galvan M.D. on 08/26/2018 08:52 AM [employer] SUPERVISOR Legally authenticated by COREY MARIA GUADALUPE 2018-08-26 08:52:29HPHistory and physical [id number], DDYMJVZTAMQTIIVQDXIU-7327-21-28T10:48:53E1 [id number], MXYLPVPYVAKNHZWSJJ0028-25-78O91:54:09 ESEQUIEL GALVAN [facility] 2018-08-25 10:10:14 AKkfgtxwypr39490bYbLxiGxKlZAv/3QFkhtSb7K eD 64Ipjsck9OnN6he4EaqHNwCqjutYHrcbu9c4PV2896 -02-28T10:10:14 [place] [id number] Patient Name: DEYSI ALVAREZ Patient#: [id number] Date: 08/25/2018 of : 1995 Age/Gender: 23/FHSSV/RM/BED: OBE/258/AAdmitting Phys: Esequiel Galvan MD CONSULTATION NOTE DATE OF CONSULTATION: 08/25/2018 ATTENDING PHYSICIAN: Esequiel Galvan MD REFERRING PHYSICIAN: SASCHA TIRADO REASON FOR CONSULTATIONAcute cholecystitis. HISTORY OF PRESENT ILLNESSThis is a 23-year-old morbidly obese woman, BMI of 45.7, with history ofhypertension, obesity, Be thyroiditis. No prior surgeries in the past. She has had right upper quadrant pain, postprandial in origin, with nausea,vomiting for about 2 weeks. She has come to the emergency room and variousemergency rooms before and was told that everything was okay, to go home. She now comes in with an ultrasound significant for no stones, but acutecholecystitis with pericholecystic fluid, thickening of the gallbladder wall,and white count slightly elevated at 11.8. PAST MEDICAL HISTORYAs above. PAST SURGICAL HISTORYNone. ALLERGIESPENICILLIN. SOCIAL HISTORYNegative x3. FAMILY HISTORYNoncontributory. MEDICATIONSNone. She is being monitored for her hypertension, but no medications havebeenordered. PHYSICAL EXAMINATIONVITAL SIGNS: Temperature 98.1, heart rate 97, blood pressure 118/78, ujraogs637% room air.GENERAL: Awake, alert, following commands. No acute distress.CARDIAC: Regular rhythm and rate. Not tachycardic.LUNGS: Clear to auscultation bilateral.ABDOMEN: Obese, but soft, nondistended. Tender in the right upper quadrant.She has positive Meredith sign. No organomegalies, masses, or hernias palpated. LABORATORY DATAWhite count 11.8, hemoglobin 13.8, hematocrit 42.4, platelets of 277.Electrolytes normal. LFTs normal. test negative. ASSESSMENT AND PLANA 23-year-old morbidly obese woman with acute cholecystitis to undergolaparoscopic, possible open cholecystectomy. She understands benefits,Legally authenticated by KT AHMADI 2018-09-28 02:32:13alternatives, and risks of the procedure, which include but not limited tobleeding, infection, perforation, ileus, obstruction, hernia, heart attack,stroke, pulmonary embolism, deep venous thrombosis, , and agrees with the plan. Nacho Meraz MD TT: 08/25/2018 10:10:14IT/MODLVerenab #: [id number] Authenticated by:Nacho Stephens MD on 09/28/2018 02:32 PM CDT Legally authenticated by KT AHMADI 2018-09-28 02:32:[id number]-HNZSL, [id number]-SUTORRES-[id number], IGOW-[id number]V58:35:41 [facility]
[2023-10-19] MEDS ORDERED: KETOROLAC 30 MG/ML INJ ONE (22:11)
[2023-10-19] MEDS ORDERED: ONDANSETRON 4 MG/2 ML VIAL ONE (22:11)
[2023-10-19] MEDS ORDERED: MAGNES/ALUMIN/SIMET 30ML UCUP ONE (22:11)
[2023-10-19] MEDS ORDERED: FAMOTIDINE 20 MG/2 ML VIAL IV ONE (22:11)
[2023-10-19] MEDS ORDERED: NA CHLORIDE 0.9% 1,000 ML ONE (22:12)
[2023-10-19 22:29] LABS: Absolute Basophils 0.1 K/uL (0-0.5); Absolute Eosinophils 0.1 K/uL (0-0.5); Absolute Lymphocytes (CBC) 3.2 K/uL (0.7-4.9); Absolute Monocytes 0.6 K/uL (0.1-1.3); Absolute Neutrophil 2.4 K/uL (1.8-8.0); Basophils % 0.9 % (0-1.3); Eosinophils % 1.5 % (0-4.4); Hematocrit 38.4 % (36.0-45.0); Hemoglobin 12.5 g/dL (12.0-15.0); Lymphocytes % 50.3 % (15.3-44.8); MCH 25.4 pg (27.0-35.0); MCHC 32.4 g/dL (32.0-36.0); MCV 78.4 fL (80-100); MPV 9.2 fL (7.6-11.3); Monocytes % 9.4 % (3.3-12.3); Neutrophils % 37.9 % (41.7-73.7); Nucleated Red Blood Cells % 0.3 % (0-0); Platelets 266 thou/uL (152-406); Red Cell Distribution Width 18.4 % (12.1-15.2)
[2023-10-19 22:33] LABS: Specific Gravity 1.029 (1.005-1.030); Sqamous Epithelial <5 /HPF (None Seen); Urine Bacteria None Seen /HPF (<20); Urine Bilirubin NEGATIVE (Negative); Urine Blood Negative (Negative); Urine Clarity Clear (Clear); Urine Color Light-Yellow (Yellow); Urine Crystals Unidentified Few /HPF (None Seen); Urine Culture Reflex Order NOT NEEDED; Urine Glucose NEGATIVE (Negative); Urine Ketones NEGATIVE (Negative); Urine Microscopic Reflex YN ORDER UMIC; Urine Mucus Slight /HPF (None Seen); Urine Nitrite NEGATIVE (Negative); Urine Protein TRACE (Negative); Urine RBC <5 /HPF (None Seen); Urine Urobilinogen 1+ (Normal); Urine WBC <5 /HPF (<5); Urine pH 6.5 (5.0-7.0)
[2023-10-19 22:41] LABS: Specific Gravity 1.029 (1.005-1.030)
[2023-10-19 22:45] LABS: ALT/SGPT 125 U/L (13-56); AST/SGOT 54 U/L (15-37); Albumin 3.2 g/dL (3.4-5.0); Albumin/Globulin Ratio 0.8 (1.1-1.8); Alkaline Phosphatase 208 U/L (45-117); Anion Gap 8.8 mEq/L (5.0-15.0); BUN Blood Urea Nitrogen 13 mg/dL (7-18); Bicarbonate 27 mEq/L (21-32); Bilirubin Total 0.3 mg/dL (0.2-1.0); Globulin 4.2 g/dL (2.3-3.5); Glomerular Filtration Rate 107 ml/min (=/>90); Glucose Level 81 mg/dL (74-106); Lipase 59 U/L (13-75); Potassium 3.8 mEq/L (3.5-5.1); Protein, Total 7.4 g/dL (6.4-8.2); Sodium Level 137 mEq/L (136-145)
[2023-10-19 22:46] LABS: Troponin High Sensitivity < 3.0 pg/mL (<58.9)
[2023-10-19 22:50] LABS: Monoscreen NEG (NEG)
[2023-10-19 23:16] LABS: Band Neutrophils 1 % (0-1); Differential Total Cells Count 100; Eosinophils 3 % (0-3); Lymphocytes 56 % (15-42); Monocytes 3 % (0-10); Reactive Lymphocytes 4 %; Segmented Neutrophils 33 % (40-80)
[2023-10-19 23:17] LABS: Blood Morphology Comment NOT SEEN (NOT SEEN); Platelet Estimate ADEQ
--- NOTE | 2023-10-19 23:27 | ER ---
Nurse's Notes [facility] Name: Anita Alvarez Age: 28 yrs Sex: Female : 1995 Arrival Date: 10/19/2023 Time: 21:34 Bed 5 Private MD: Diagnosis: Epigastric pain Presentation: 10/18 21:57 Chief complaint: Patient states: RUQ abdominal pain onset 1 week ago that got worse cm10 today. Pt states that the pain radiates to her back. Describes the pain as a sharp pain. Pt also reports diarrhea, nausea. Coronavirus screen: Client denies travel out of the [place] in the last 14 days. At this time, the client does not indicate any symptoms associated with coronavirus-19. Ebola Screen: Patient denies travel to an Ebola-affected area in the 21 days before illness onset. No symptoms or risks identified at this time. Initial Sepsis Screen: Does the patient meet any 2 criteria? HR > 90 bpm. Does the patient have a suspected source of infection? No. Patient's initial sepsis screen is negative. Risk Assessment: Do you want to hurt yourself or someone else? Patient reports no desire to harm self or others. Onset of symptoms was October 19, 2023. 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 - Infectious Disease History:: Denies. - Social history:: Smoking status: Patient denies any tobacco usage or history of. Screenin:20 [facility] ED Fall Risk Assessment (Adult) History of falling in the last 3 months, km8 including since admission No falls in past 3 months (0 pts) Confusion or Disorientation No (0 pts) Intoxicated or Sedated No (0 pts) Impaired Gait No (0 pts) Mobility Assist Device Used No (0 pt) Altered Elimination No (0 pt) Score/Fall Risk Level 0 - 2 = Low Risk Oriented to surroundings, Maintained a safe environment, Educated pt \T\ family on fall prevention, incl call for assistance when getting out of bed, Assessed \T\ reinforced patient's understanding of fall precautions. Abuse screen: Denies threats or abuse. Denies injuries from another. Nutritional screening: No deficits noted. Tuberculosis screening: No symptoms or risk factors identified. Assessment: 22:20 General: Appears in no apparent distress. uncomfortable, Behavior is calm, cooperative, km8 appropriate for age. Pain: Complains of pain in right upper quadrant Pain radiates to back Pain currently is 7 out of 10 on a pain scale. Neuro: Level of Consciousness is awake, alert, obeys commands, Oriented to person, place, time, situation. Cardiovascular: Denies chest pain, shortness of breath, Patient's skin is warm and dry. Respiratory: Airway is patent Respiratory effort is even, unlabored, Respiratory pattern is regular, symmetrical. GI: Abdomen is non-distended, Bowel sounds present X 4 quads. Abdomen is tender to palpation in right upper quadrant. : No signs and/or symptoms were reported regarding the genitourinary system. EENT: No signs and/or symptoms were reported regarding the EENT system. Derm: No signs and/or symptoms reported regarding the dermatologic system. Skin is intact, is healthy with good turgor, Skin is dry, Skin is pink, warm \T\ dry. normal. Musculoskeletal: No signs and/or symptoms reported regarding the musculoskeletal system. Range of motion: intact in all extremities. 23:29 Reassessment: Patient appears in no apparent distress at this time. Patient and/or km8 family updated on plan of care and expected duration. Pain level reassessed. Patient is alert, oriented x 3, equal unlabored respirations, skin warm/dry/pink. Patient states symptoms have improved. Vital Signs: 21:57 BP 122 / 88; Pulse 92; Resp 18; Temp 97.8(TE); Pulse Ox 100% ; Weight 82.55 kg; Height cm10 5 ft. 2 in. ; Pain 7/10; 22:23 BP 118 / 84; Pulse 92; Resp 16; Pulse Ox 99% on R/A; km8 22:30 BP 110 / 78; Pulse 93; Resp 16; Pulse Ox 99% on R/A; km8 23:00 BP 108 / 70; Pulse 86; Resp 16; Pulse Ox 100% on R/A; km8 21:57 Body Mass Index 33.29 (82.55 kg, 157.48 cm) cm10 21:57 Pain Scale: Adult cm10 Rony Coma Score: 22:20 Eye Response: spontaneous(4). Motor Response: obeys commands(6). Verbal Response: km8 oriented(5). Total: 15. ED Course: 21:38 Patient arrived in ED. gm2 21:44 Chaparrita Watson FNP-C [facility]. kb 21:44 Maxime Rainey MD is Attending Physician. kb 21:59 Triage completed. cm10 22:00 Arm band placed on Patient placed in an exam room, on a stretcher. cm10 22:20 Patient has correct armband on for positive identification. Placed in gown. Bed in low km8 position. Call light in reach. Side rails up X 1. Pulse ox on. NIBP on. Lights dimmed. Warm blanket given. 22:34 Inserted saline lock: 20 gauge in right antecubital area, using aseptic technique. km8 Blood collected. 22:34 Initial lab(s) drawn, by me, sent to lab. km8 22:38 Chest Single View XRAY In Process Unspecified. EDMS 22:43 EKG done, by ED staff, reviewed by Maxime Rainey MD. [facility] 23:29 Kailyn Triana, RN is Primary Nurse. 8 23:30 No provider procedures requiring assistance completed. IV discontinued, intact, km8 bleeding controlled, No redness/swelling at site. Pressure dressing applied. 23:31 Provided Education on: d/c teaching. km8 Administered Medications: 22:33 Drug: NS 0.9% IV 1000 ml IV at 1 bolus Per protocol; 1000 mL bolus Route: IV; Rate: 1 km8 bolus; Site: right antecubital; 23:32 Follow up: IV Status: Completed infusion; IV Intake: 1000ml 8 22:33 Drug: Famotidine IVP 20 mg IVP once; dilute with 10 mL 0.9% NaCl; give over 2 minutes km8 Route: IVP; Site: right antecubital; 23:32 Follow up: Response: No adverse reaction 8 22:33 Drug: Alum-Mag Hydroxide-Simeth PO Suspension (200 mg-200 mg-20 mg/5 mL) 30 ml PO once km8 Route: PO; 23:31 Follow up: Response: No adverse reaction km8 22:34 Drug: TORadol - Ketorolac IVP 15 mg IVP once Route: IVP; Site: right antecubital; km8 23:32 Follow up: Response: No adverse reaction km8 22:34 Drug: Ondansetron IVP 4 mg IVP once; over 2 minutes Route: IVP; Site: right antecubital;km8 23:32 Follow up: Response: No adverse reaction km8 Medication: 22:20 VIS not applicable for this client. km8 Intake: 23:32 IV: 1000ml; Total: 1000ml. km8 Outcome: 23:26 Discharge ordered by MD. kb 23:31 Discharged to home ambulatory, km8 23:31 Condition: good 23:31 Discharge instructions given to patient, Instructed on discharge instructions, follow up and referral plans. medication usage, Demonstrated understanding of instructions, follow-up care, medications, Prescriptions given X 2, 23:35 Patient left the ED. km8 Signatures: Dispatcher [employer] EDMS Chaparrita Watson, CARLEEN-C CARLEEN-Tere Zuniga, RN RN cm10 Miryam Patel 2 Kailyn Triana RN RN km8 Oleksandr Monique, RN RN jh8 Corrections: (The following items were deleted from the chart) 23:33 23:29 Reassessment: Patient appears in no apparent distress at this time. No changes km8 from previously documented assessment. Patient and/or family updated on plan of care and expected duration. Pain level reassessed. Patient is alert, oriented x 3, equal unlabored respirations, skin warm/dry/pink. km8
--- NOTE | 2023-10-19 23:27 | EDPHYS ---
Physician Documentation [facility] Name: Anita Alvarez Age: 28 yrs Sex: Female : 1995 Arrival Date: 10/19/2023 Time: 21:34 Bed 5 Private MD: ED Physician Maxime Rainey HPI: 10/18 21:48 This 28 yrs old Female presents to ER via Unassigned with complaints of Abdominal Pain, kb Back Pain. 21:48 Pt is a 28 year old female who presents for upper abd pain that radiates to back that kb started this morning. Reports nausea. Denies vomiting, fever. Started semaglutide 2 weeks ago. 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 - Infectious Disease History:: Denies. - Social history:: Smoking status: Patient denies any tobacco usage or history of. ROS: 21:49 Constitutional: As per HPI kb Exam: 21:49 Constitutional: This is a well developed, well nourished patient who is awake, alert, kb and in no acute distress. Head/Face: Normocephalic, atraumatic. ENT: Moist Mucous membranes Cardiovascular: Regular rate Respiratory: Respirations even and unlabored. No increased work of breathing. Talking in full sentences Skin: Warm, dry with normal turgor. Normal color. MS/ Extremity: Pulses equal, no cyanosis. Neurovascular intact. Full, normal range of motion. Neuro: Awake and alert, GCS 15, oriented to person, place, time, and situation. Moves all extremities. Normal gait. 21:49 Abdomen/GI: Inspection: abdomen appears normal, Bowel sounds: normal, Palpation: soft, in all quadrants, mild abdominal tenderness, in the epigastric area, Vital Signs: 21:57 BP 122 / 88; Pulse 92; Resp 18; Temp 97.8(TE); Pulse Ox 100% ; Weight 82.55 kg; Height cm10 5 ft. 2 in. ; Pain 7/10; 22:23 BP 118 / 84; Pulse 92; Resp 16; Pulse Ox 99% on R/A; km8 22:30 BP 110 / 78; Pulse 93; Resp 16; Pulse Ox 99% on R/A; km8 23:00 BP 108 / 70; Pulse 86; Resp 16; Pulse Ox 100% on R/A; km8 21:57 Body Mass Index 33.29 (82.55 kg, 157.48 cm) cm10 21:57 Pain Scale: Adult cm10 Rony Coma Score: 22:20 Eye Response: spontaneous(4). Motor Response: obeys commands(6). Verbal Response: km8 oriented(5). Total: 15. MDM: 21:45 Patient medically screened. kb 21:50 Data reviewed: vital signs, nurses notes. kb 23:24 Differential diagnosis: gastroesophageal reflux disease, non-specific abd pain, kb pancreatitis. Counseling: I had a detailed discussion with the patient and/or guardian regarding the historical points, exam findings, and any diagnostic results supporting the discharge/admit diagnosis, lab results, radiology results, the need for outpatient follow up, a family practitioner, a pet handler, to return to the emergency department if symptoms worsen or persist or if there are any questions or concerns that arise at home. ED course: Pt has seen a GI at [facility] in the past and will call tomorrow for follow up on LFTs. 10/18 21:52 Order name: CBC with Diff; Complete Time: 23:18 kb 10/18 21:52 Order name: CMP; Complete Time: 22:51 kb 10/18 21:52 Order name: Lipase; Complete Time: 22:51 kb 10/18 21:52 Order name: Test, Urine; Complete Time: 22:41 kb 10/18 21:52 Order name: Urinalysis w/ reflexes; Complete Time: 22:37 kb 10/18 21:52 Order name: Ceiba Screen Profile; Complete Time: 22:51 kb 10/18 21:52 Order name: Troponin High Sensitivity; Complete Time: 22:51 kb 10/18 22:35 Order name: Manual Differential; Complete Time: 23:18 EDMS 10/18 21:52 Order name: Chest Single View XRAY kb 10/18 21:52 Order name: EKG; Complete Time: 21:52 kb 10/18 21:52 Order name: IV Saline Lock; Complete Time: 22:34 kb 10/18 21:52 Order name: Labs collected and sent; Complete Time: 22:34 kb 10/18 21:52 Order name: EKG - Nurse/Tech; Complete Time: 22:53 kb Administered Medications: 22:33 Drug: NS 0.9% IV 1000 ml IV at 1 bolus Per protocol; 1000 mL bolus Route: IV; Rate: 1 km8 bolus; Site: right antecubital; 23:32 Follow up: IV Status: Completed infusion; IV Intake: 1000ml km8 22:33 Drug: Famotidine IVP 20 mg IVP once; dilute with 10 mL 0.9% NaCl; give over 2 minutes km8 Route: IVP; Site: right antecubital; 23:32 Follow up: Response: No adverse reaction 8 22:33 Drug: Alum-Mag Hydroxide-Simeth PO Suspension (200 mg-200 mg-20 mg/5 mL) 30 ml PO once km8 Route: PO; 23:31 Follow up: Response: No adverse reaction km8 22:34 Drug: TORadol - Ketorolac IVP 15 mg IVP once Route: IVP; Site: right antecubital; km8 23:32 Follow up: Response: No adverse reaction km8 22:34 Drug: Ondansetron IVP 4 mg IVP once; over 2 minutes Route: IVP; Site: right antecubital;km8 23:32 Follow up: Response: No adverse reaction km8 Disposition Summary: 10/19/23 23:26 Discharge Ordered Notes: Location: Home kb Condition: Stable kb Diagnosis - Epigastric pain kb Followup: kb - With: Emergency Department - When: As needed - Reason: Worsening of condition Followup: kb - With: Private Physician - When: 2 - 3 days - Reason: Recheck today's complaints, Continuance of care, Re-evaluation by your physician Discharge Instructions: - Discharge Summary Sheet kb - Abdominal Pain, Adult, Jack-ky-Pcdi kb - Gastroesophageal Reflux Disease, Adult, [id number] kb Forms: - Medication Reconciliation Form kb - Antibiotic Education kb - Prescription Opioid Use kb - Patient Portal Instructions kb - Leadership Thank You Letter kb Prescriptions: - Zofran 4 mg Oral tablet - take 1 tablet ORAL route every 6 hours As needed; 12 tablet; Refills: 0, kb Product Selection Permitted - Pepcid 20 mg Oral Tablet - take 1 tablet ORAL route once daily; 20 tablet; Refills: 0, Product Selection kb Permitted Signatures: Dispatcher [employer] EDMS Chaparrita Watson FNP-C FNP-Ckb Martinez, Clarissa, RN RN cm10 Kailyn Triana, TAMMY RN km8 Corrections: (The following items were deleted from the chart) 21: 21:52 CBC+H.LAB.BRZ ordered. EDMS EDMS 21: 21:52 COMPREHENSIVE METABOLIC PANEL+C.LAB.BRZ ordered. EDMS EDMS 21:52 21:52 LIPASE+C.LAB.BRZ ordered. EDMS EDMS 21:52 21:52 Test, Urine+UC.LAB.BRZ ordered. EDMS EDMS : 21:52 Urinalysis+U.LAB.BRZ ordered. EDMS EDMS : 21:52 MONO SCREEN PROFILE+I.LAB.BRZ ordered. EDMS EDMS 21:52 21:52 Troponin High Sensitivity+C.LAB.BRZ ordered. EDMS EDMS
[2023-10-20 00:17] VITALS: BP 108/70; TEMP 97.8; O2SAT 100
--- NOTE | 2023-10-20 13:33 | RAD REPORT ---
EXAM DESCRIPTION: RAD - Chest Single View - 10/19/2023 10:36 pm CLINICAL HISTORY: Epigastric pain. COMPARISON: None. TECHNIQUE: Single view AP chest radiograph(s). FINDINGS: The lungs are clear. No pulmonary infiltrate or edema identified. No pleural effusion. N o pneumothorax. Nonenlarged cardiomediastinal silhouette. No significant osseous abnormality. No free air beneath the diaphragm. IMPRESSION: No acute cardiopulmonary abnormality identified by radiograph. Electronically signed by: Poly Worthy MD 10/19/2023 10:44 PM CDT Due to temporary technical issues with the PACS/Fluency reporting system, reports are being signed by the in house radiologists without review as a courtesy to insure prompt reporting. The interpreting radiologist is fully responsible for the content of the report
--- NOTE | 2023-10-21 16:47 | EKG ---
Test Date: 2023-10-19 Test Time: 22:41:52 Tosser: MELVI MEASUREMENT RESULTS: Intervals: Rate: 89 CA: 184 QRSD: 76 QT: 338 QTc: 411 [place]: P: 24 CA: 184 QRS: 55 T: 43 INTERPRETIVE STATEMENTS: Normal sinus rhythm Normal ECG Compared to ECG 05/09/2022 16:07:36 Myocardial infarct finding no longer present Electronically Signed On 10-21-23 16:42:31 CDT by Arthur Ahuja
== END 2023-10-19 23:35 | disposition home or self-care (01) ==
LOC: ER 21:34
DX: R10.13 Epigastric pain (principal); I10 Essential (primary) hypertension; Z88.0 Allergy status to penicillin
CPT/HCPCS: 96361; 93005; 85025; 81001; 36415; 86308; 81025; 84484; 83690; 80053; 71045; 96375; 96374; 99285; J2405; J7030

== ENCOUNTER 2023-10-25 17:07 | Emergency (ER) | payer OTHER ==
--- OUTSIDE RECORDS SUMMARY | 2023-10-25 17:17 | XMS REPORT | Continuity of Care Document ---
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 [id number] .35mg Take 1 tablet by mouth daily for 336 days. [facility] Cyclobenzap rine Hcl (Flexeril) 5 Mg TAB 01-30 19:37: 00 No 5mg Three Times A Day as needed for Muscle Tension [facility] Dicyclomine Hcl (Bentyl) 10 Mg CAP 01-29 15:57: 00 No 10mg Four Times Daily as needed for Abdominal Cramps [facility] Ondansetron Hcl (Zofran Odt) 4 Mg TAB.RAPDIS 01-29 15:57: 00 No 4mg Every 8 Hours as needed for Nausea / Vomiting [facility] Nystatin (Nystatin Liq) 100,000 Unit/1 Ml ORAL.SUSP 09-12 07:38: 00 No [id number] Four Times Daily [facility] Omeprazole (Prilosec) 40 Mg CPDR No [facility] Ordered Immunization Name Filled Immunization Name Date Status Comments Source Rho (d) Immune Globulin 2022-12-10 00:00:00 Completed [facility] Rho (d) Immune Globulin 2022-12-10 00:00:00 Completed [facility] Rho (d) Immune Globulin 2022-12-10 00:00:00 Completed [facility] Rho (d) Immune Globulin 2022-12-10 00:00:00 Completed [facility] Rho (d) Immune Globulin 2022-12-10 00:00:00 Completed [facility] Rho (d) Immune Globulin 2022-12-10 00:00:00 Completed [facility] Rho (d) Immune Globulin 2022-12-10 00:00:00 Completed [facility] Rho (d) Immune Globulin 2022-12-10 00:00:00 Completed [facility] Rho (d) Immune Globulin 2022-12-10 00:00:00 Completed [facility] Rho (d) Immune Globulin 2022-12-10 00:00:00 Completed [facility] Rho (d) Immune Globulin 2022-12-10 00:00:00 Completed [facility] Rho (d) Immune Globulin 2022-12-10 00:00:00 Completed [facility] Rho (d) Immune Globulin 2022-12-10 00:00:00 Completed [facility] TDAP 2022-10-23 00:00:00 Completed [facility] Rho (d) Immune Globulin 2022-10-23 00:00:00 Completed [facility] TDAP 2022-10-23 00:00:00 Completed [facility] Rho (d) Immune Globulin 2022-10-23 00:00:00 Completed [facility] TDAP 2022-10-23 00:00:00 Completed [facility] Rho (d) Immune Globulin 2022-10-23 00:00:00 Completed [facility] TDAP 2022-10-23 00:00:00 Completed [facility] Rho (d) Immune Globulin 2022-10-23 00:00:00 Completed [facility] TDAP 2022-10-23 00:00:00 Completed [facility] Rho (d) Immune Globulin 2022-10-23 00:00:00 Completed [facility] TDAP 2022-10-23 00:00:00 Completed [facility] Rho (d) Immune Globulin 2022-10-23 00:00:00 Completed [facility] TDAP 2022-10-23 00:00:00 Completed [facility] Rho (d) Immune Globulin 2022-10-23 00:00:00 Completed [facility] TDAP 2022-10-23 00:00:00 Completed [facility] Rho (d) Immune Globulin 2022-10-23 00:00:00 Completed [facility] TDAP 2022-10-23 00:00:00 Completed [facility] Rho (d) Immune Globulin 2022-10-23 00:00:00 Completed [facility] TDAP 2022-10-23 00:00:00 Completed [facility] Rho (d) Immune Globulin 2022-10-23 00:00:00 Completed [facility] TDAP 2022-10-23 00:00:00 Completed [facility] Rho (d) Immune Globulin 2022-10-23 00:00:00 Completed [facility] TDAP 2022-10-23 00:00:00 Completed [facility] Rho (d) Immune Globulin 2022-10-23 00:00:00 Completed [facility] TDAP 2022-10-23 00:00:00 Completed [facility] Rho (d) Immune Globulin 2022-10-23 00:00:00 Completed [facility] TDAP 2022-10-23 00:00:00 Completed [facility] Rho (d) Immune Globulin 2022-10-23 00:00:00 Completed [facility] TDAP 2022-10-23 00:00:00 Completed [facility] Rho (d) Immune Globulin 2022-10-23 00:00:00 Completed [facility] TDAP 2022-10-23 00:00:00 Completed [facility] Rho (d) Immune Globulin 2022-10-23 00:00:00 Completed [facility] TDAP 2022-10-23 00:00:00 Completed [facility] Rho (d) Immune Globulin 2022-10-23 00:00:00 Completed [facility] TDAP 2022-10-23 00:00:00 Completed [facility] Rho (d) Immune Globulin 2022-10-23 00:00:00 Completed [facility] TDAP 2022-10-23 00:00:00 Completed [facility] Rho (d) Immune Globulin 2022-10-23 00:00:00 Completed [facility] TDAP 2022-10-23 00:00:00 Completed [facility] Rho (d) Immune Globulin 2022-10-23 00:00:00 Completed [facility] TDAP 2022-10-23 00:00:00 Completed [facility] Rho (d) Immune Globulin 2022-10-23 00:00:00 Completed [facility] TDAP 2022-10-23 00:00:00 Completed [facility] Rho (d) Immune Globulin 2022-10-23 00:00:00 Completed [facility] TDAP 2022-10-23 00:00:00 Completed [facility] Rho (d) Immune Globulin 2022-10-23 00:00:00 Completed [facility] TDAP 2022-10-23 00:00:00 Completed [facility] Rho (d) Immune Globulin 2022-10-23 00:00:00 Completed [facility] TDAP 2022-10-23 00:00:00 Completed [facility] Rho (d) Immune Globulin 2022-10-23 00:00:00 Completed [facility] TDAP 2022-10-23 00:00:00 Completed [facility] Rho (d) Immune Globulin 2022-10-23 00:00:00 Completed [facility] TDAP 2022-10-23 00:00:00 Completed [facility] Rho (d) Immune Globulin 2022-10-23 00:00:00 Completed [facility] TDAP 2022-10-23 00:00:00 Completed [facility] Rho (d) Immune Globulin 2022-10-23 00:00:00 Completed [facility] TDAP 2022-10-23 00:00:00 Completed [facility] Rho (d) Immune Globulin 2022-10-23 00:00:00 Completed [facility] TDAP 2022-10-23 00:00:00 Completed [facility] Rho (d) Immune Globulin 2022-10-23 00:00:00 Completed [facility] TDAP 2022-10-23 00:00:00 Completed [facility] Rho (d) Immune Globulin 2022-10-23 00:00:00 Completed [facility] TDAP 2022-10-23 00:00:00 Completed [facility] Rho (d) Immune Globulin 2022-10-23 00:00:00 Completed [facility] TDAP 2022-10-23 00:00:00 Completed [facility] Rho (d) Immune Globulin 2022-10-23 00:00:00 Completed [facility] TDAP 2022-10-23 00:00:00 Completed [facility] Rho (d) Immune Globulin 2022-10-23 00:00:00 Completed [facility] TDAP 2022-10-23 00:00:00 Completed [facility] Rho (d) Immune Globulin 2022-10-23 00:00:00 Completed [facility] TDAP 2022-10-23 00:00:00 Completed [facility] Rho (d) Immune Globulin 2022-10-23 00:00:00 Completed [facility] TDAP 2022-10-23 00:00:00 Completed [facility] Rho (d) Immune Globulin 2022-10-23 00:00:00 Completed [facility] TDAP 2022-10-23 00:00:00 Completed [facility] Rho (d) Immune Globulin 2022-10-23 00:00:00 Completed [facility] TDAP 2022-10-23 00:00:00 Completed [facility] Rho (d) Immune Globulin 2022-10-23 00:00:00 Completed [facility] TDAP 2022-10-23 00:00:00 Completed [facility] Rho (d) Immune Globulin 2022-10-23 00:00:00 Completed [facility] TDAP 2022-10-23 00:00:00 Completed [facility] Rho (d) Immune Globulin 2022-10-23 00:00:00 Completed [facility] TDAP 2022-10-23 00:00:00 Completed [facility] Rho (d) Immune Globulin 2022-10-23 00:00:00 Completed [facility] SARS-COV-2 COVID-19 MODERNA 12+ YRS VACCINE 2021-02-25 00:00:00 Completed [facility] SARS-COV-2 COVID-19 MODERNA 12+ YRS VACCINE 2021-02-25 00:00:00 Completed [facility] SARS-COV-2 COVID-19 MODERNA 12+ YRS VACCINE 2021-02-25 00:00:00 Completed [facility] SARS-COV-2 COVID-19 MODERNA 12+ YRS VACCINE 2021-02-25 00:00:00 Completed [facility] SARS-COV-2 COVID-19 MODERNA 12+ YRS VACCINE 2021-02-25 00:00:00 Completed [facility] SARS-COV-2 COVID-19 MODERNA 12+ YRS VACCINE 2021-02-25 00:00:00 Completed [facility] SARS-COV-2 COVID-19 MODERNA 12+ YRS VACCINE 2021-02-25 00:00:00 Completed [facility] SARS-COV-2 COVID-19 MODERNA 12+ YRS VACCINE 2021-02-25 00:00:00 Completed [facility] SARS-COV-2 COVID-19 MODERNA 12+ YRS VACCINE 2021-02-25 00:00:00 Completed [facility] SARS-COV-2 COVID-19 MODERNA VACCINE 2021-02-25 00:00:00 Completed [facility] SARS-COV-2 COVID-19 MODERNA 12+ YRS VACCINE 2021-02-25 00:00:00 Completed [facility] SARS-COV-2 COVID-19 MODERNA 12+ YRS VACCINE 2021-02-25 00:00:00 Completed [facility] SARS-COV-2 COVID-19 MODERNA 12+ YRS VACCINE 2021-02-25 00:00:00 Completed [facility] SARS-COV-2 COVID-19 MODERNA 12+ YRS VACCINE 2021-02-25 00:00:00 Completed [facility] SARS-COV-2 COVID-19 MODERNA VACCINE 2021-02-25 00:00:00 Completed [facility] SARS-COV-2 COVID-19 MODERNA 12+ YRS VACCINE 2021-02-25 00:00:00 Completed [facility] SARS-COV-2 COVID-19 MODERNA 12+ YRS VACCINE 2021-02-25 00:00:00 Completed [facility] SARS-COV-2 COVID-19 MODERNA VACCINE 2021-02-25 00:00:00 Completed [facility] SARS-COV-2 COVID-19 MODERNA VACCINE 2021-02-25 00:00:00 Completed [facility] SARS-COV-2 COVID-19 MODERNA 12+ YRS VACCINE 2021-02-25 00:00:00 Completed [facility] SARS-COV-2 COVID-19 MODERNA 12+ YRS VACCINE 2021-02-25 00:00:00 Completed [facility] SARS-COV-2 COVID-19 MODERNA 12+ YRS VACCINE 2021-02-25 00:00:00 Completed [facility] SARS-COV-2 COVID-19 MODERNA 12+ YRS VACCINE 2021-02-25 00:00:00 Completed [facility] SARS-COV-2 COVID-19 MODERNA 12+ YRS VACCINE 2021-02-25 00:00:00 Completed [facility] SARS-COV-2 COVID-19 MODERNA 12+ YRS VACCINE 2021-02-25 00:00:00 Completed [facility] SARS-COV-2 COVID-19 MODERNA 12+ YRS VACCINE 2021-02-25 00:00:00 Completed [facility] SARS-COV-2 COVID-19 MODERNA 12+ YRS VACCINE 2021-02-25 00:00:00 Completed [facility] SARS-COV-2 COVID-19 MODERNA 12+ YRS VACCINE 2021-02-25 00:00:00 Completed [facility] SARS-COV-2 COVID-19 MODERNA 12+ YRS VACCINE 2021-02-25 00:00:00 Completed [facility] SARS-COV-2 COVID-19 MODERNA 12+ YRS VACCINE 2021-02-25 00:00:00 Completed [facility] SARS-COV-2 COVID-19 MODERNA 12+ YRS VACCINE 2021-02-25 00:00:00 Completed [facility] SARS-COV-2 COVID-19 MODERNA 12+ YRS VACCINE 2021-02-25 00:00:00 Completed [facility] SARS-COV-2 COVID-19 MODERNA 12+ YRS VACCINE 2021-02-25 00:00:00 Completed [facility] SARS-COV-2 COVID-19 MODERNA 12+ YRS VACCINE 2021-02-25 00:00:00 Completed [facility] SARS-COV-2 COVID-19 MODERNA 12+ YRS VACCINE 2021-02-25 00:00:00 Completed [facility] SARS-COV-2 COVID-19 MODERNA 12+ YRS VACCINE 2021-02-25 00:00:00 Completed [facility] SARS-COV-2 COVID-19 MODERNA 12+ YRS VACCINE 2021-02-25 00:00:00 Completed [facility] SARS-COV-2 COVID-19 MODERNA 12+ YRS VACCINE 2021-02-25 00:00:00 Completed [facility] SARS-COV-2 COVID-19 MODERNA 12+ YRS VACCINE 2021-02-25 00:00:00 Completed [facility] SARS-COV-2 COVID-19 MODERNA 12+ YRS VACCINE 2021-02-25 00:00:00 Completed [facility] SARS-COV-2 COVID-19 MODERNA 12+ YRS VACCINE 2021-02-25 00:00:00 Completed [facility] SARS-COV-2 COVID-19 MODERNA 12+ YRS VACCINE 2021-02-25 00:00:00 Completed [facility] SARS-COV-2 COVID-19 MODERNA 12+ YRS VACCINE 2021-02-25 00:00:00 Completed [facility] SARS-COV-2 COVID-19 MODERNA 12+ YRS VACCINE 2021-02-25 00:00:00 Completed [facility] SARS-COV-2 COVID-19 MODERNA 12+ YRS VACCINE 2021-02-25 00:00:00 Completed [facility] SARS-COV-2 COVID-19 MODERNA 12+ YRS VACCINE 2021-02-25 00:00:00 Completed [facility] SARS-COV-2 COVID-19 MODERNA 12+ YRS VACCINE 2021-02-25 00:00:00 Completed [facility] SARS-COV-2 COVID-19 MODERNA 12+ YRS VACCINE 2021-02-25 00:00:00 Completed [facility] SARS-COV-2 COVID-19 MODERNA 12+ YRS VACCINE 2021-02-25 00:00:00 Completed [facility] SARS-COV-2 COVID-19 MODERNA 12+ YRS VACCINE 2021-02-25 00:00:00 Completed [facility] SARS-COV-2 COVID-19 MODERNA 12+ YRS VACCINE 2021-02-25 00:00:00 Completed [facility] SARS-COV-2 COVID-19 MODERNA 12+ YRS VACCINE 2021-02-25 00:00:00 Completed [facility] SARS-COV-2 COVID-19 MODERNA 12+ YRS VACCINE 2021-02-25 00:00:00 Completed [facility] SARS-COV-2 COVID-19 MODERNA 12+ YRS VACCINE 2021-02-25 00:00:00 Completed [facility] SARS-COV-2 COVID-19 MODERNA 12+ YRS VACCINE 2021-02-25 00:00:00 Completed [facility] SARS-COV-2 COVID-19 MODERNA 12+ YRS VACCINE 2021-02-25 00:00:00 Completed [facility] SARS-COV-2 COVID-19 MODERNA 12+ YRS VACCINE Unknown Completed [facility] TDAP Unknown Completed [facility] Rho (d) Immune Globulin Unknown Completed [facility] Rho (d) Immune Globulin Unknown Completed [facility] Influenza Virus Vaccine Quad IM, Preserv and ABX Free 6 MO-64 YRS (FLUCELVAX) Unknown Completed [facility] SARS-COV-2 COVID-19 MODERNA 12+ YRS VACCINE Unknown Completed [facility] TDAP Unknown Completed [facility] Rho (d) Immune Globulin Unknown Completed [facility] Rho (d) Immune Globulin Unknown Completed [facility] Influenza Virus Vaccine Quad IM, Preserv and ABX Free 6 MO-64 YRS (FLUCELVAX) Unknown Completed [facility] SARS-COV-2 COVID-19 VACCINE - (MODERNA) Unknown Completed [facility] SARS-COV-2 COVID-19 MODERNA 12+ YRS VACCINE Unknown Completed [facility] TDAP Unknown Completed [facility] Rho (d) Immune Globulin Unknown Completed [facility] Rho (d) Immune Globulin Unknown Completed [facility] Influenza Virus Vaccine Quad IM, Preserv and ABX Free 6 MO-64 YRS (FLUCELVAX) Unknown Completed [facility] SARS-COV-2 COVID-19 VACCINE - (MODERNA) Unknown Completed [facility] SARS-COV-2 COVID-19 MODERNA 12+ YRS VACCINE Unknown Completed [facility] TDAP Unknown Completed [facility] Rho (d) Immune Globulin Unknown Completed [facility] Rho (d) Immune Globulin Unknown Completed [facility] Influenza Virus Vaccine Quad IM, Preserv and ABX Free 6 MO-64 YRS (FLUCELVAX) Unknown Completed [facility] SARS-COV-2 COVID-19 VACCINE - (MODERNA) Unknown Completed [facility] SARS-COV-2 COVID-19 MODERNA 12+ YRS VACCINE Unknown Completed [facility] TDAP Unknown Completed [facility] Rho (d) Immune Globulin Unknown Completed [facility] Rho (d) Immune Globulin Unknown Completed [facility] Influenza Virus Vaccine Quad IM, Preserv and ABX Free 6 MO-64 YRS (FLUCELVAX) Unknown Completed [facility] SARS-COV-2 COVID-19 VACCINE - (MODERNA) Unknown Completed [facility] SARS-COV-2 COVID-19 MODERNA 12+ YRS VACCINE Unknown Completed [facility] TDAP Unknown Completed [facility] Rho (d) Immune Globulin Unknown Completed [facility] Rho (d) Immune Globulin Unknown Completed [facility] Influenza Virus Vaccine Quad IM, Preserv and ABX Free 6 MO-64 YRS (FLUCELVAX) Unknown Completed [facility] SARS-COV-2 COVID-19 VACCINE - (MODERNA) Unknown Completed [facility] SARS-COV-2 COVID-19 MODERNA 12+ YRS VACCINE Unknown Completed [facility] TDAP Unknown Completed [facility] [facility] Immune Globulin Unknown Completed [facility] Rho (d) Immune Globulin Unknown Completed [facility] Influenza Virus Vaccine Quad IM, Preserv and ABX Free 6 MO-64 YRS (FLUCELVAX) Unknown Completed [facility] SARS-COV-2 COVID-19 VACCINE - (MODERNA) Unknown Completed [facility] SARS-COV-2 COVID-19 MODERNA 12+ YRS VACCINE Unknown Completed [facility] TDAP Unknown Completed [facility] Rho (d) Immune Globulin Unknown Completed [facility] Rho (d) Immune Globulin Unknown Completed [facility] Influenza Virus Vaccine Quad IM, Preserv and ABX Free 6 MO-64 YRS (FLUCELVAX) Unknown Completed [facility] SARS-COV-2 COVID-19 VACCINE - (MODERNA) Unknown Completed [facility] SARS-COV-2 COVID-19 MODERNA 12+ YRS VACCINE Unknown Completed [facility] TDAP Unknown Completed [facility] Rho (d) Immune Globulin Unknown Completed [facility] Rho (d) Immune Globulin Unknown Completed [facility] Influenza Virus Vaccine Quad IM, Preserv and ABX Free 6 MO-64 YRS (FLUCELVAX) Unknown Completed [facility] SARS-COV-2 COVID-19 VACCINE - (MODERNA) Unknown Completed [facility] SARS-COV-2 COVID-19 MODERNA 12+ YRS VACCINE Unknown Completed [facility] TDAP Unknown Completed [facility] Rho (d) Immune Globulin Unknown Completed [facility] Rho (d) Immune Globulin Unknown Completed [facility] Influenza Virus Vaccine Quad IM, Preserv and ABX Free 6 MO-64 YRS (FLUCELVAX) Unknown Completed [facility] SARS-COV-2 COVID-19 VACCINE - (MODERNA) Unknown Completed [facility] SARS-COV-2 COVID-19 MODERNA 12+ YRS VACCINE Unknown Completed [facility] TDAP Unknown Completed [facility] Rho (d) Immune Globulin Unknown Completed [facility] Rho (d) Immune Globulin Unknown Completed [facility] Influenza Virus Vaccine Quad IM, Preserv and ABX Free 6 MO-64 YRS (FLUCELVAX) Unknown Completed [facility] SARS-COV-2 COVID-19 VACCINE - (MODERNA) Unknown Completed [facility] SARS-COV-2 COVID-19 MODERNA 12+ YRS VACCINE Unknown Completed [facility] TDAP Unknown Completed [facility] Rho (d) Immune Globulin Unknown Completed [facility] Rho (d) Immune Globulin Unknown Completed [facility] Influenza Virus Vaccine Quad IM, Preserv and ABX Free 6 MO-64 YRS (FLUCELVAX) Unknown Completed [facility] SARS-COV-2 COVID-19 VACCINE - (MODERNA) Unknown Completed [facility] SARS-COV-2 COVID-19 MODERNA 12+ YRS VACCINE Unknown Completed [facility] TDAP Unknown Completed [facility] Rho (d) Immune Globulin Unknown Completed [facility] Rho (d) Immune Globulin Unknown Completed [facility] Influenza Virus Vaccine Quad IM, Preserv and ABX Free 6 MO-64 YRS (FLUCELVAX) Unknown Completed [facility] SARS-COV-2 COVID-19 VACCINE - (MODERNA) Unknown Completed [facility] SARS-COV-2 COVID-19 MODERNA 12+ YRS VACCINE Unknown Completed [facility] TDAP Unknown Completed [facility] Rho (d) Immune Globulin Unknown Completed [facility] Rho (d) Immune Globulin Unknown Completed [facility] Influenza Virus Vaccine Quad IM, Preserv and ABX Free 6 MO-64 YRS (FLUCELVAX) Unknown Completed [facility] SARS-COV-2 COVID-19 VACCINE - (MODERNA) Unknown Completed [facility] SARS-COV-2 COVID-19 MODERNA 12+ YRS VACCINE Unknown Completed [facility] TDAP Unknown Completed [facility] Rho (d) Immune Globulin Unknown Completed [facility] Rho (d) Immune Globulin Unknown Completed [facility] Influenza Virus Vaccine Quad IM, Preserv and ABX Free 6 MO-64 YRS (FLUCELVAX) Unknown Completed [facility] SARS-COV-2 COVID-19 VACCINE - (MODERNA) Unknown Completed [facility] SARS-COV-2 COVID-19 MODERNA 12+ YRS VACCINE Unknown Completed [facility] TDAP Unknown Completed [facility] Rho (d) Immune Globulin Unknown Completed [facility] Rho (d) Immune Globulin Unknown Completed [facility] Influenza Virus Vaccine Quad IM, Preserv and ABX Free 6 MO-64 YRS (FLUCELVAX) Unknown Completed [facility] SARS-COV-2 COVID-19 VACCINE - (MODERNA) Unknown Completed [facility] SARS-COV-2 COVID-19 MODERNA 12+ YRS VACCINE Unknown Completed [facility] TDAP Unknown Completed [facility] Rho (d) Immune Globulin Unknown Completed [facility] Rho (d) Immune Globulin Unknown Completed [facility] Influenza Virus Vaccine Quad IM, Preserv and ABX Free 6 MO-64 YRS (FLUCELVAX) Unknown Completed [facility] SARS-COV-2 COVID-19 VACCINE - (MODERNA) Unknown Completed [facility] SARS-COV-2 COVID-19 MODERNA 12+ YRS VACCINE Unknown Completed [facility] TDAP Unknown Completed [facility] Rho (d) Immune Globulin Unknown Completed [facility] Rho (d) Immune Globulin Unknown Completed [facility] Influenza Virus Vaccine Quad IM, Preserv and ABX Free 6 MO-64 YRS (FLUCELVAX) Unknown Completed [facility] SARS-COV-2 COVID-19 VACCINE - (MODERNA) Unknown Completed [facility] SARS-COV-2 COVID-19 MODERNA 12+ YRS VACCINE Unknown Completed [facility] TDAP Unknown Completed [facility] Rho (d) Immune Globulin Unknown Completed [facility] Rho (d) Immune Globulin Unknown Completed [facility] Influenza Virus Vaccine Quad IM, Preserv and ABX Free 6 MO-64 YRS (FLUCELVAX) Unknown Completed [facility] SARS-COV-2 COVID-19 VACCINE - (MODERNA) [facility] MODERNA 12+ YRS VACCINE Unknown Completed [facility] TDAP Unknown Completed [facility] Rho (d) Immune Globulin Unknown Completed [facility] Rho (d) Immune Globulin Unknown Completed [facility] Influenza Virus Vaccine Quad IM, Preserv and ABX Free 6 MO-64 YRS (FLUCELVAX) Unknown Completed [facility] SARS-COV-2 COVID-19 VACCINE - (MODERNA) Unknown Completed [facility] SARS-COV-2 COVID-19 MODERNA 12+ YRS VACCINE Unknown Completed [facility] TDAP Unknown Completed [facility] Rho (d) Immune Globulin Unknown Completed [facility] Rho (d) Immune Globulin Unknown Completed [facility] Influenza Virus Vaccine Quad IM, Preserv and ABX Free 6 MO-64 YRS (FLUCELVAX) Unknown Completed [facility] SARS-COV-2 COVID-19 VACCINE - (MODERNA) Unknown Completed [facility] SARS-COV-2 COVID-19 MODERNA 12+ YRS VACCINE Unknown Completed [facility] TDAP Unknown Completed [facility] Rho (d) Immune Globulin Unknown Completed [facility] Rho (d) Immune Globulin Unknown Completed [facility] Influenza Virus Vaccine Quad IM, Preserv and ABX Free 6 MO-64 YRS (FLUCELVAX) Unknown Completed [facility] SARS-COV-2 COVID-19 VACCINE - (MODERNA) Unknown Completed [facility] SARS-COV-2 COVID-19 MODERNA 12+ YRS VACCINE Unknown Completed [facility] TDAP Unknown Completed [facility] Rho (d) Immune Globulin Unknown Completed [facility] Rho (d) Immune Globulin Unknown Completed [facility] Influenza Virus Vaccine Quad IM, Preserv and ABX Free 6 MO-64 YRS (FLUCELVAX) Unknown Completed [facility] SARS-COV-2 COVID-19 VACCINE - (MODERNA) Unknown Completed [facility] SARS-COV-2 COVID-19 MODERNA 12+ YRS VACCINE Unknown Completed [facility] TDAP Unknown Completed [facility] Rho (d) Immune Globulin Unknown Completed [facility] Rho (d) Immune Globulin Unknown Completed [facility] Influenza Virus Vaccine Quad IM, Preserv and ABX Free 6 MO-64 YRS (FLUCELVAX) Unknown Completed [facility] SARS-COV-2 COVID-19 VACCINE - (MODERNA) Unknown Completed [facility] SARS-COV-2 COVID-19 MODERNA 12+ YRS VACCINE Unknown Completed [facility] TDAP Unknown Completed [facility] Rho (d) Immune Globulin Unknown Completed [facility] Rho (d) Immune Globulin Unknown Completed [facility] Influenza Virus Vaccine Quad IM, Preserv and ABX Free 6 MO-64 YRS (FLUCELVAX) Unknown Completed [facility] SARS-COV-2 COVID-19 VACCINE - (MODERNA) Unknown Completed [facility] SARS-COV-2 COVID-19 MODERNA 12+ YRS VACCINE Unknown Completed [facility] TDAP Unknown Completed [facility] Rho (d) Immune Globulin Unknown Completed [facility] Rho (d) Immune Globulin Unknown Completed [facility] Influenza Virus Vaccine Quad IM, Preserv and ABX Free 6 MO-64 YRS (FLUCELVAX) Unknown Completed [facility] SARS-COV-2 COVID-19 VACCINE - (MODERNA) Unknown Completed [facility] SARS-COV-2 COVID-19 MODERNA 12+ YRS VACCINE Unknown Completed [facility] TDAP Unknown Completed [facility] Rho (d) Immune Globulin Unknown Completed [facility] Rho (d) Immune Globulin Unknown Completed [facility] Influenza Virus Vaccine Quad IM, Preserv and ABX Free 6 MO-64 YRS (FLUCELVAX) Unknown Completed [facility] SARS-COV-2 COVID-19 VACCINE - (MODERNA) Unknown Completed [facility] SARS-COV-2 COVID-19 MODERNA 12+ YRS VACCINE Unknown Completed [facility] TDAP Unknown Completed [facility] Rho (d) Immune Globulin Unknown Completed [facility] Rho (d) Immune Globulin Unknown Completed [facility] Influenza Virus Vaccine Quad IM, Preserv and ABX Free 6 MO-64 YRS (FLUCELVAX) Unknown Completed [facility] SARS-COV-2 COVID-19 VACCINE - (MODERNA) Unknown Completed [facility] SARS-COV-2 COVID-19 MODERNA 12+ YRS VACCINE Unknown Completed [facility] TDAP Unknown Completed [facility] Rho (d) Immune Globulin Unknown Completed [facility] Rho (d) Immune Globulin Unknown Completed [facility] Influenza Virus Vaccine Quad IM, Preserv and ABX Free 6 MO-64 YRS (FLUCELVAX) Unknown Completed [facility] SARS-COV-2 COVID-19 VACCINE - (MODERNA) Unknown Completed [facility] SARS-COV-2 COVID-19 MODERNA 12+ YRS VACCINE Unknown Completed [facility] TDAP Unknown Completed [facility] Rho (d) Immune Globulin Unknown Completed [facility] Rho (d) Immune Globulin Unknown Completed [facility] Influenza Virus Vaccine Quad IM, Preserv and ABX Free 6 MO-64 YRS (FLUCELVAX) Unknown Completed [facility] SARS-COV-2 COVID-19 VACCINE - (MODERNA) Unknown Completed [facility] SARS-COV-2 COVID-19 MODERNA 12+ YRS VACCINE Unknown Completed [facility] TDAP Unknown Completed [facility] Rho (d) Immune Globulin Unknown Completed [facility] Rho (d) Immune Globulin Unknown Completed [facility] Influenza Virus Vaccine Quad IM, Preserv and ABX Free 6 MO-64 YRS (FLUCELVAX) Unknown Completed [facility] SARS-COV-2 COVID-19 VACCINE - (MODERNA) Unknown Completed [facility] SARS-COV-2 COVID-19 MODERNA 12+ YRS VACCINE Unknown Completed [facility] TDAP Unknown Completed [facility] Rho (d) Immune Globulin Unknown Completed [facility] Rho (d) Immune Globulin Unknown Completed [facility] Influenza Virus Vaccine Quad IM, Preserv and ABX Free 6 MO-64 YRS (FLUCELVAX) Unknown Completed [facility] SARS-COV-2 COVID-19 VACCINE - (MODERNA) Unknown Completed [facility] SARS-COV-2 COVID-19 MODERNA 12+ YRS VACCINE Unknown Completed [facility] TDAP Unknown Completed [facility] Rho (d) Immune Globulin Unknown Completed [facility] Rho (d) Immune Globulin Unknown Completed [facility] Influenza Virus Vaccine Quad IM, Preserv and ABX Free 6 MO-64 YRS (FLUCELVAX) Unknown Completed [facility] SARS-COV-2 COVID-19 VACCINE - (MODERNA) Unknown Completed [facility] SARS-COV-2 COVID-19 MODERNA 12+ YRS VACCINE Unknown Completed [facility] TDAP Unknown Completed [facility] Rho (d) Immune Globulin Unknown Completed [facility] Rho (d) Immune Globulin Unknown Completed [facility] Influenza Virus Vaccine Quad IM, Preserv and ABX Free 6 MO-64 YRS (FLUCELVAX) Unknown Completed [facility] SARS-COV-2 COVID-19 VACCINE - (MODERNA) Unknown Completed [facility] SARS-COV-2 COVID-19 MODERNA 12+ YRS VACCINE Unknown Completed [facility] TDAP Unknown Completed [facility] Rho (d) Immune Globulin Unknown Completed [facility] Rho (d) Immune Globulin Unknown Completed [facility] Influenza Virus Vaccine Quad IM, Preserv and ABX Free 6 MO-64 YRS (FLUCELVAX) Unknown Completed [facility] SARS-COV-2 COVID-19 VACCINE - (MODERNA) Unknown Completed [facility] SARS-COV-2 COVID-19 MODERNA 12+ YRS VACCINE Unknown Completed [facility] TDAP Unknown Completed [facility] Rho (d) Immune Globulin Unknown Completed [facility] Rho (d) Immune Globulin Unknown Completed [facility] Influenza Virus Vaccine Quad IM, Preserv and ABX Free 6 MO-64 YRS (FLUCELVAX) Unknown Completed [facility] SARS-COV-2 COVID-19 VACCINE - (MODERNA) Unknown Completed [facility] SARS-COV-2 COVID-19 MODERNA 12+ YRS VACCINE Unknown Completed [facility] TDAP Unknown Completed [facility] Rho (d) Immune Globulin Unknown Completed [facility] Rho (d) Immune Globulin Unknown Completed [facility] Influenza Virus Vaccine Quad IM, Preserv and ABX Free 6 MO-64 YRS (FLUCELVAX) Unknown Completed [facility] SARS-COV-2 COVID-19 VACCINE - (MODERNA) Unknown Completed [facility] SARS-COV-2 COVID-19 MODERNA 12+ YRS VACCINE Unknown Completed [facility] TDAP Unknown Completed [facility] Rho (d) Immune Globulin Unknown Completed [facility] Rho (d) Immune Globulin Unknown Completed [facility] Influenza Virus Vaccine Quad IM, Preserv and ABX Free 6 MO-64 YRS (FLUCELVAX) Unknown Completed [facility] SARS-COV-2 COVID-19 VACCINE - (MODERNA) Unknown Completed [facility] SARS-COV-2 COVID-19 MODERNA 12+ YRS VACCINE Unknown Completed [facility] TDAP Unknown Completed [facility] Rho (d) Immune Globulin Unknown Completed [facility] Rho (d) Immune Globulin Unknown Completed [facility] Influenza Virus Vaccine Quad IM, Preserv and ABX Free 6 MO-64 YRS (FLUCELVAX) Unknown Completed [facility] SARS-COV-2 COVID-19 VACCINE - (MODERNA) Unknown Completed [facility] SARS-COV-2 COVID-19 MODERNA 12+ YRS VACCINE Unknown Completed [facility] TDAP Unknown Completed [facility] Rho (d) Immune Globulin Unknown Completed [facility] Rho (d) Immune Globulin Unknown Completed [facility] Influenza Virus Vaccine Quad IM, Preserv and ABX Free 6 MO-64 YRS (FLUCELVAX) Unknown Completed [facility] SARS-COV-2 COVID-19 VACCINE - (MODERNA) Unknown Completed [facility] SARS-COV-2 COVID-19 MODERNA 12+ YRS VACCINE Unknown Completed [facility] TDAP Unknown Completed [facility] Rho (d) Immune Globulin Unknown Completed [facility] Rho (d) Immune Globulin Unknown Completed [facility] Influenza Virus Vaccine Quad IM, Preserv and ABX Free 6 MO-64 YRS (FLUCELVAX) Unknown Completed [facility] SARS-COV-2 COVID-19 VACCINE - (MODERNA) Unknown Completed [facility] SARS-COV-2 COVID-19 MODERNA 12+ YRS VACCINE Unknown Completed [facility] TDAP Unknown Completed [facility] Rho (d) Immune Globulin Unknown Completed [facility] Rho (d) Immune Globulin Unknown Completed [facility] Influenza Virus Vaccine Quad IM, Preserv and ABX Free 6 MO-64 YRS (FLUCELVAX) Unknown Completed [facility] SARS-COV-2 COVID-19 VACCINE - (MODERNA) Unknown Completed [facility] SARS-COV-2 COVID-19 MODERNA 12+ YRS VACCINE Unknown Completed [facility] TDAP Unknown Completed [facility] Rho (d) Immune Globulin Unknown Completed [facility] Rho (d) Immune Globulin Unknown Completed [facility] Influenza Virus Vaccine Quad IM, Preserv and ABX Free 6 MO-64 YRS (FLUCELVAX) Unknown Completed [facility] SARS-COV-2 COVID-19 VACCINE - (MODERNA) Unknown Completed [facility] SARS-COV-2 COVID-19 MODERNA 12+ YRS VACCINE Unknown Completed [facility] TDAP Unknown Completed [facility] Rho (d) Immune Globulin Unknown Completed [facility] Rho (d) Immune Globulin Unknown Completed [facility] Influenza Virus Vaccine Quad IM, Preserv and ABX Free 6 MO-64 YRS (FLUCELVAX) Unknown Completed [facility] SARS-COV-2 COVID-19 VACCINE - (MODERNA) Unknown Completed [facility] SARS-COV-2 COVID-19 MODERNA 12+ YRS VACCINE Unknown Completed [facility] TDAP Unknown Completed [facility] Rho (d) Immune Globulin Unknown Completed [facility] Rho (d) Immune Globulin Unknown Completed [facility] Influenza Virus Vaccine Quad IM, Preserv and ABX Free 6 MO-64 YRS (FLUCELVAX) Unknown Completed [facility] SARS-COV-2 COVID-19 VACCINE - (MODERNA) Unknown Completed [facility] SARS-COV-2 COVID-19 MODERNA 12+ YRS VACCINE Unknown Completed [facility] TDAP Unknown Completed [facility] Rho (d) Immune Globulin Unknown Completed [facility] Rho (d) Immune Globulin Unknown Completed [facility] Influenza Virus Vaccine Quad IM, Preserv and ABX Free 6 MO-64 YRS (FLUCELVAX) Unknown Completed [facility] [facility] SARS-COV-2 COVID-19 VACCINE - (MODERNA) Unknown Completed [facility] SARS-COV-2 COVID-19 MODERNA 12+ YRS VACCINE Unknown Completed [facility] TDAP Unknown Completed [facility] Rho (d) Immune Globulin Unknown Completed [facility] Rho (d) Immune Globulin Unknown Completed [facility] Influenza Virus Vaccine Quad IM, Preserv and ABX Free 6 MO-64 YRS (FLUCELVAX) Unknown Completed [facility] SARS-COV-2 COVID-19 VACCINE - (MODERNA) Unknown Completed [facility] SARS-COV-2 COVID-19 MODERNA 12+ YRS VACCINE Unknown Completed [facility] TDAP Unknown Completed [facility] Rho (d) Immune Globulin Unknown Completed [facility] Rho (d) Immune Globulin Unknown Completed [facility] Influenza Virus Vaccine Quad IM, Preserv and ABX Free 6 MO-64 YRS (FLUCELVAX) Unknown Completed [facility] SARS-COV-2 COVID-19 VACCINE - (MODERNA) Unknown Completed [facility] SARS-COV-2 COVID-19 MODERNA 12+ YRS VACCINE Unknown Completed [facility] TDAP Unknown Completed [facility] Rho (d) Immune Globulin Unknown Completed [facility] Rho (d) Immune Globulin Unknown Completed [facility] Influenza Virus Vaccine Quad IM, Preserv and ABX Free 6 MO-64 YRS (FLUCELVAX) Unknown Completed [facility] SARS-COV-2 COVID-19 VACCINE - (MODERNA) Unknown Completed [facility] SARS-COV-2 COVID-19 MODERNA 12+ YRS VACCINE Unknown Completed [facility] TDAP Unknown Completed [facility] Rho (d) Immune Globulin Unknown Completed [facility] Rho (d) Immune Globulin Unknown Completed [facility] Influenza Virus Vaccine Quad IM, Preserv and ABX Free 6 MO-64 YRS (FLUCELVAX) Unknown Completed [facility] SARS-COV-2 COVID-19 VACCINE - (MODERNA) Unknown Completed [facility] SARS-COV-2 COVID-19 MODERNA 12+ YRS VACCINE Unknown Completed [facility] TDAP Unknown Completed [facility] Rho (d) Immune Globulin Unknown Completed [facility] Rho (d) Immune Globulin Unknown Completed [facility] Influenza Virus Vaccine Quad IM, Preserv and ABX Free 6 MO-64 YRS (FLUCELVAX) Unknown Completed [facility] SARS-COV-2 COVID-19 VACCINE - (MODERNA) Unknown Completed [facility] SARS-COV-2 COVID-19 MODERNA 12+ YRS VACCINE Unknown Completed [facility] TDAP Unknown Completed [facility] Rho (d) Immune Globulin Unknown Completed [facility] Rho (d) Immune Globulin Unknown Completed [facility] Influenza Virus Vaccine Quad IM, Preserv and ABX Free 6 MO-64 YRS (FLUCELVAX) Unknown Completed [facility] SARS-COV-2 COVID-19 VACCINE - (MODERNA) Unknown Completed [facility] SARS-COV-2 COVID-19 MODERNA 12+ YRS VACCINE Unknown Completed [facility] TDAP Unknown Completed [facility] Rho (d) Immune Globulin Unknown Completed [facility] Rho (d) Immune Globulin Unknown Completed [facility] Influenza Virus Vaccine Quad IM, Preserv and ABX Free 6 MO-64 YRS (FLUCELVAX) Unknown Completed [facility] SARS-COV-2 COVID-19 VACCINE - (MODERNA) Unknown Completed [facility] SARS-COV-2 COVID-19 MODERNA 12+ YRS VACCINE Unknown Completed [facility] TDAP Unknown Completed [facility] Rho (d) Immune Globulin Unknown Completed [facility] Rho (d) Immune Globulin Unknown Completed [facility] Influenza Virus Vaccine Quad IM, Preserv and ABX Free 6 MO-64 YRS (FLUCELVAX) Unknown Completed [facility] SARS-COV-2 COVID-19 VACCINE - (MODERNA) Unknown Completed [facility] SARS-COV-2 COVID-19 MODERNA 12+ YRS VACCINE Unknown Completed [facility] TDAP Unknown Completed [facility] Rho (d) Immune Globulin Unknown Completed [facility] Rho (d) Immune Globulin Unknown Completed [facility] Influenza Virus Vaccine Quad IM, Preserv and ABX Free 6 MO-64 YRS (FLUCELVAX) Unknown Completed [facility] SARS-COV-2 COVID-19 VACCINE - (MODERNA) Unknown Completed [facility] SARS-COV-2 COVID-19 MODERNA 12+ YRS VACCINE Unknown Completed [facility] TDAP Unknown Completed [facility] Rho (d) Immune Globulin Unknown Completed [facility] Rho (d) Immune Globulin Unknown Completed [facility] Influenza Virus Vaccine Quad IM, Preserv and ABX Free 6 MO-64 YRS (FLUCELVAX) Unknown Completed [facility] SARS-COV-2 COVID-19 VACCINE - (MODERNA) Unknown Completed [facility] SARS-COV-2 COVID-19 MODERNA 12+ YRS VACCINE Unknown Completed [facility] TDAP Unknown Completed [facility] Rho (d) Immune Globulin Unknown Completed [facility] Rho (d) Immune Globulin Unknown Completed [facility] Influenza Virus Vaccine Quad IM, Preserv and ABX Free 6 MO-64 YRS (FLUCELVAX) Unknown Completed [facility] SARS-COV-2 COVID-19 VACCINE - (MODERNA) Unknown Completed [facility] SARS-COV-2 COVID-19 MODERNA 12+ YRS VACCINE Unknown Completed [facility] TDAP Unknown Completed [facility] Rho (d) Immune Globulin Unknown Completed [facility] Rho (d) Immune Globulin Unknown Completed [facility] Influenza Virus Vaccine Quad IM, Preserv and ABX Free 6 MO-64 YRS (FLUCELVAX) Unknown Completed [facility] SARS-COV-2 COVID-19 VACCINE - (MODERNA) Unknown Completed [facility] SARS-COV-2 COVID-19 MODERNA 12+ YRS VACCINE Unknown Completed [facility] TDAP Unknown Completed [facility] Rho (d) Immune Globulin Unknown Completed [facility] Rho (d) Immune Globulin Unknown Completed [facility] Influenza Virus Vaccine Quad IM, Preserv and ABX Free 6 MO-64 YRS (FLUCELVAX) Unknown Completed [facility] SARS-COV-2 COVID-19 VACCINE - (MODERNA) Unknown Completed [facility] SARS-COV-2 COVID-19 MODERNA 12+ YRS VACCINE Unknown Completed [facility] TDAP Unknown Completed [facility] Rho (d) Immune Globulin Unknown Completed [facility] Rho (d) Immune Globulin Unknown Completed [facility] Influenza Virus Vaccine Quad IM, Preserv and ABX Free 6 MO-64 YRS (FLUCELVAX) Unknown Completed [facility] SARS-COV-2 COVID-19 VACCINE - (MODERNA) Unknown Completed [facility] SARS-COV-2 COVID-19 MODERNA 12+ YRS VACCINE Unknown Completed [facility] TDAP Unknown Completed [facility] Rho (d) Immune Globulin Unknown Completed [facility] Rho (d) Immune Globulin Unknown Completed [facility] Influenza Virus Vaccine Quad IM, Preserv and ABX Free 6 MO-64 YRS (FLUCELVAX) Unknown Completed [facility] SARS-COV-2 COVID-19 VACCINE - (MODERNA) Unknown Completed [facility] Vital Signs Vital Name Observation Time Observation Value Comments S ource Systolic blood pressure 2023-10-25 15:53:00 129 mm[Hg] [facility] Diastolic blood pressure 2023-10-25 15:53:00 90 mm[Hg] [facility] Heart rate 2023-10-25 15:53:00 111 /min [facility] Body temperature 2023-10-25 15:50:00 35.89 Malou [facility] Respiratory rate 2023-10-25 15:50:00 16 /min [facility] Body height 2023-10-25 15:50:00 157.5 cm [facility] Body weight 2023-10-25 15:50:00 82.509 kg [facility] BMI 2023-10-25 15:50:00 33.27 kg/m2 [facility] Oxygen saturation in Arterial blood by Pulse oximetry 2023-10-25 15:50:00 96 /min [facility] Systolic blood pressure 2023-10-18 18:34:00 124 mm[Hg] [facility] Diastolic blood pressure 2023-10-18 18:34:00 88 mm[Hg] [facility] Heart rate 2023-10-18 18:15:00 103 /min [facility] Body temperature 2023-10-18 18:15:00 36.67 Malou [facility] Respiratory rate 2023-10-18 18:15:00 18 /min [facility] Body height 2023-10-18 18:15:00 157.5 cm [facility] Body weight 2023-10-18 18:15:00 82.6 kg [facility] BMI 2023-10-18 18:15:00 33.31 kg/m2 [facility] Oxygen saturation in Arterial blood by Pulse oximetry 2023-10-18 18:15:00 100 /min [facility] Systolic blood pressure 2023-10-16 20:17:00 130 mm[Hg] [facility] Diastolic blood pressure 2023-10-16 20:17:00 97 mm[Hg] [facility] Heart rate 2023-10-16 20:17:00 88 /min [facility] Body temperature 2023-10-16 20:17:00 37.39 Malou [facility] Respiratory rate 2023-10-16 20:17:00 16 /min [facility] Body height 2023-10-16 20:17:00 157.5 cm [facility] Body weight 2023-10-16 20:17:00 81.647 kg [facility] BMI 2023-10-16 20:17:00 32.92 kg/m2 [facility] Oxygen saturation in Arterial blood by Pulse oximetry 2023-10-16 20:17:00 100 /min [facility] Systolic blood pressure 2023-10-07 14:18:00 125 mm[Hg] [facility] Diastolic blood pressure 2023-10-07 14:18:00 88 mm[Hg] [facility] Heart rate 2023-10-07 14:18:00 100 /min [facility] Body temperature 2023-10-07 14:18:00 35.56 Malou [facility] Respiratory rate 2023-10-07 14:18:00 16 /min [facility] Body height 2023-10-07 14:18:00 157.5 cm [facility] Body weight 2023-10-07 14:18:00 84.142 kg [facility] BMI 2023-10-07 14:18:00 33.93 kg/m2 [facility] Oxygen saturation in Arterial blood by Pulse oximetry 2023-10-07 14:18:00 100 /min [facility] Systolic blood pressure 2023-10-01 19:17:00 122 mm[Hg] [facility] Diastolic blood pressure 2023-10-01 19:17:00 81 mm[Hg] [facility] Heart rate 2023-10-01 19:17:00 94 /min [facility] Body temperature 2023-10-01 19:17:00 36.78 Malou [facility] Body height 2023-10-01 19:17:00 157.5 cm [facility] Body weight 2023-10-01 19:17:00 85.186 kg [facility] BMI 2023-10-01 19:17:00 34.35 kg/m2 [facility] Oxygen saturation in Arterial blood by Pulse oximetry 2023-10-01 19:17:00 100 /min [facility] Systolic blood pressure 2023-09-22 18:42:00 124 mm[Hg] [facility] Diastolic blood pressure 2023-09-22 18:42:00 87 mm[Hg] [facility] Heart rate 2023-09-22 18:42:00 88 /min [facility] Body temperature 2023-09-22 18:42:00 36.72 Malou [facility] Respiratory rate 2023-09-22 18:42:00 16 /min [facility] Body height 2023-09-22 18:42:00 157.5 cm [facility] Body weight 2023-09-22 18:42:00 85.276 kg [facility] BMI 2023-09-22 18:42:00 34.39 kg/m2 [facility] Systolic blood pressure 2023-09-07 20:01:00 118 mm[Hg] [facility] Diastolic blood pressure 2023-09-07 20:01:00 81 mm[Hg] [facility] Heart rate 2023-09-07 20:01:00 93 /min [facility] Body height 2023-09-07 20:01:00 157.5 cm [facility] Body weight 2023-09-07 20:01:00 85.276 kg [facility] BMI 2023-09-07 20:01:00 34.39 kg/m2 [facility] Oxygen saturation in Arterial blood by Pulse oximetry 2023-09-07 20:01:00 97 /min [facility] Systolic blood pressure 2023-09-06 20:05:00 124 mm[Hg] [facility] Diastolic blood pressure 2023-09-06 20:05:00 81 mm[Hg] [facility] Heart rate 2023-09-06 20:02:00 111 /min [facility] Body temperature 2023-09-06 20:02:00 36.44 Malou [facility] Body height 2023-09-06 20:02:00 157.5 cm [facility] Body weight 2023-09-06 20:02:00 85.186 kg [facility] BMI 2023-09-06 20:02:00 34.35 kg/m2 [facility] Oxygen saturation in Arterial blood by Pulse oximetry 2023-09-06 20:02:00 97 /min [facility] Systolic blood pressure 2023-08-14 00:32:00 114 mm[Hg] [facility] Diastolic blood pressure 2023-08-14 00:32:00 79 mm[Hg] [facility] Heart rate 2023-08-14 00:32:00 93 /min [facility] Body temperature 2023-08-14 00:32:00 37.22 Malou [facility] Respiratory rate 2023-08-14 00:32:00 20 /min [facility] Body height 2023-08-14 00:32:00 157.5 cm [facility] Body weight 2023-08-14 00:32:00 84.369 kg [facility] BMI 2023-08-14 00:32:00 34.02 kg/m2 [facility] Oxygen saturation in Arterial blood by Pulse oximetry 2023-08-14 00:32:00 98 /min [facility] Systolic blood pressure 2023-06-25 15:54:00 117 mm[Hg] [facility] Diastolic blood pressure 2023-06-25 15:54:00 85 mm[Hg] [facility] Heart rate 2023-06-25 15:54:00 97 /min [facility] Body temperature 2023-06-25 15:54:00 36.67 Malou [facility] Respiratory rate 2023-06-25 15:54:00 16 /min [facility] Body height 2023-06-25 15:54:00 157.5 cm [facility] Body weight 2023-06-25 15:54:00 85.231 kg [facility] BMI 2023-06-25 15:54:00 34.37 kg/m2 [facility] Oxygen saturation in Arterial blood by Pulse oximetry 2023-06-25 15:54:00 98 /min [facility] Systolic blood pressure 2023-06-16 19:05:00 133 mm[Hg] [facility] Diastolic blood pressure 2023-06-16 19:05:00 89 mm[Hg] [facility] Heart rate 2023-06-16 19:05:00 103 /min [facility] Body temperature 2023-06-16 19:05:00 36.67 Malou [facility] Respiratory rate 2023-06-16 19:05:00 18 /min [facility] Body height 2023-06-16 19:05:00 157.5 cm [facility] Body weight 2023-06-16 19:05:00 84.369 kg [facility] BMI 2023-06-16 19:05:00 34.02 kg/m2 [facility] Oxygen saturation in Arterial blood by Pulse oximetry 2023-06-16 19:05:00 98 /min [facility] Systolic blood pressure 2023-06-02 21:34:00 128 mm[Hg] [facility] Diastolic blood pressure 2023-06-02 21:34:00 88 mm[Hg] [facility] Heart rate 2023-06-02 21:33:00 104 /min [facility] Body temperature 2023-06-02 21:33:00 36.17 Malou [facility] Respiratory rate 2023-06-02 21:33:00 18 /min [facility] Body height 2023-06-02 21:33:00 157.5 cm [facility] Body weight 2023-06-02 21:33:00 83.961 kg [facility] BMI 2023-06-02 21:33:00 33.86 kg/m2 [facility] Oxygen saturation in Arterial blood by Pulse oximetry 2023-06-02 21:33:00 97 /min [facility] Systolic blood pressure 2023-05-14 15:13:00 135 mm[Hg] [facility] Diastolic blood pressure 2023-05-14 15:13:00 89 mm[Hg] [facility] Heart rate 2023-05-14 15:06:00 98 /min [facility] Body height 2023-05-14 15:06:00 157.5 cm [facility] Body weight 2023-05-14 15:06:00 84.006 kg [facility] BMI 2023-05-14 15:06:00 33.87 kg/m2 [facility] Systolic blood pressure 2023-05-12 16:01:00 141 mm[Hg] [facility] Diastolic blood pressure 2023-05-12 16:01:00 99 mm[Hg] [facility] Heart rate 2023-05-12 16:00:00 101 /min [facility] Body temperature 2023-05-12 16:00:00 36.72 Malou [facility] Respiratory rate 2023-05-12 16:00:00 18 /min [facility] Body height 2023-05-12 16:00:00 157.5 cm [facility] Body weight 2023-05-12 16:00:00 83.144 kg [facility] BMI 2023-05-12 16:00:00 33.53 kg/m2 [facility] Oxygen saturation in Arterial blood by Pulse oximetry 2023-05-12 16:00:00 99 /min [facility] Systolic blood pressure 2023-01-26 20:53:00 124 mm[Hg] [facility] Diastolic blood pressure 2023-01-26 20:53:00 83 mm[Hg] [facility] Heart rate 2023-01-26 20:53:00 97 /min [facility] Body temperature 2023-01-26 20:53:00 36.89 Malou [facility] Respiratory rate 2023-01-26 20:53:00 18 /min [facility] Body height 2023-01-26 20:53:00 157.5 cm [facility] Body weight 2023-01-26 20:53:00 81.194 kg [facility] BMI 2023-01-26 20:53:00 32.74 kg/m2 [facility] Systolic blood pressure 2023-01-11 15:18:00 129 mm[Hg] [facility] Diastolic blood pressure 2023-01-11 15:18:00 87 mm[Hg] [facility] Heart rate 2023-01-11 15:18:00 85 /min [facility] Body temperature 2023-01-11 15:18:00 36.61 Malou [facility] Respiratory rate 2023-01-11 15:18:00 18 /min [facility] Body height 2023-01-11 15:18:00 157.5 cm [facility] Body weight 2023-01-11 15:18:00 80.377 kg [facility] BMI 2023-01-11 15:18:00 32.41 kg/m2 [facility] Systolic blood pressure 2022-12-31 18:11:00 130 mm[Hg] [facility] Diastolic blood pressure 2022-12-31 18:11:00 87 mm[Hg] [facility] Heart rate 2022-12-31 18:11:00 89 /min [facility] Body temperature 2022-12-31 18:11:00 36.89 Malou [facility] Body weight 2022-12-31 18:11:00 80.559 kg [facility] BMI 2022-12-31 18:11:00 32.48 kg/m2 [facility] Systolic blood pressure 2022-12-10 17:05:00 131 mm[Hg] pt from [facility] Diastolic blood pressure 2022-12-10 17:05:00 92 mm[Hg] pt from [facility] Body temperature 2022-12-10 17:04:00 37.11 Amlou [facility] Respiratory rate 2022-12-10 17:04:00 17 /min [facility] Heart rate 2022-12-10 12:15:00 82 /min [facility] Oxygen saturation in Arterial blood by Pulse oximetry 2022-12-10 12:15:00 100 /min [facility] Body weight 2022-12-09 14:19:00 89.812 kg [facility] BMI 2022-12-09 14:19:00 36.21 kg/m2 [facility] Systolic blood pressure 2022-12-08 18:30:00 123 mm[Hg] [facility] Diastolic blood pressure 2022-12-08 18:30:00 81 mm[Hg] [facility] Heart rate 2022-12-08 18:30:00 97 /min [facility] Body temperature 2022-12-08 18:30:00 36.56 Malou [facility] Respiratory rate 2022-12-08 18:30:00 18 /min [facility] Body height 2022-12-08 18:30:00 157.5 cm [facility] Body weight 2022-12-08 18:30:00 89.903 kg [facility] BMI 2022-12-08 18:30:00 36.25 kg/m2 [facility] Oxygen saturation in Arterial blood by Pulse oximetry 2022-12-08 18:30:00 99 /min [facility] Heart rate 2022-12-03 23:43:00 100 /min [facility] Oxygen saturation in Arterial blood by Pulse oximetry 2022-12-03 23:43:00 98 /min [facility] Systolic blood pressure 2022-12-03 23:15:00 130 mm[Hg] [facility] Diastolic blood pressure 2022-12-03 23:15:00 87 mm[Hg] [facility] Body temperature 2022-12-03 23:15:00 36.5 Malou [facility] Respiratory rate 2022-12-03 23:15:00 18 /min [facility] Body weight 2022-12-03 22:49:00 90.719 kg [facility] BMI 2022-12-03 22:49:00 36.58 kg/m2 [facility] Systolic blood pressure 2022-12-01 18:19:00 122 mm[Hg] [facility] Diastolic blood pressure 2022-12-01 18:19:00 87 mm[Hg] [facility] Heart rate 2022-12-01 18:19:00 113 /min [facility] Body temperature 2022-12-01 18:19:00 37 Malou [facility] Respiratory rate 2022-12-01 18:19:00 18 /min [facility] Body height 2022-12-01 18:19:00 157.5 cm [facility] Body weight 2022-12-01 18:19:00 90.084 kg [facility] BMI 2022-12-01 18:19:00 36.32 kg/m2 [facility] Heart rate 2022-11-25 21:00:00 102 /min [facility] Oxygen saturation in Arterial blood by Pulse oximetry 2022-11-25 21:00:00 99 /min [facility] Systolic blood pressure 2022-11-25 20:45:00 113 mm[Hg] [facility] Diastolic blood pressure 2022-11-25 20:45:00 61 mm[Hg] [facility] Body temperature 2022-11-25 20:45:00 37 Malou [facility] Respiratory rate 2022-11-25 20:45:00 18 /min [facility] Body height 2022-11-25 16:04:00 157.5 cm [facility] Body weight 2022-11-25 16:04:00 88.451 kg [facility] BMI 2022-11-25 16:04:00 35.67 kg/m2 [facility] Heart rate 2022-11-19 18:41:00 96 /min [facility] Oxygen saturation in Arterial blood by Pulse oximetry 2022-11-19 18:41:00 99 /min [facility] Systolic blood pressure 2022-11-19 17:40:00 102 mm[Hg] [facility] Diastolic blood pressure 2022-11-19 17:40:00 65 mm[Hg] [facility] Body temperature 2022-11-19 17:40:00 36.89 Malou [facility] Respiratory rate 2022-11-19 17:40:00 18 /min [facility] Body height 2022-11-19 17:40:00 157.5 cm [facility] Body weight 2022-11-19 17:40:00 89.359 kg [facility] BMI 2022-11-19 17:40:00 36.03 kg/m2 [facility] Systolic blood pressure 2022-11-17 18:18:00 126 mm[Hg] [facility] Diastolic blood pressure 2022-11-17 18:18:00 84 mm[Hg] [facility] Heart rate 2022-11-17 18:18:00 94 /min [facility] Body temperature 2022-11-17 18:18:00 36.5 Malou [facility] Respiratory rate 2022-11-17 18:18:00 18 /min [facility] Body height 2022-11-17 18:18:00 157.5 cm [facility] Body weight 2022-11-17 18:18:00 87.363 kg [facility] BMI 2022-11-17 18:18:00 35.23 kg/m2 [facility] Oxygen saturation in Arterial blood by Pulse oximetry 2022-11-17 18:18:00 99 /min [facility] Systolic blood pressure 2022-11-03 21:16:00 128 mm[Hg] [facility] Diastolic blood pressure 2022-11-03 21:16:00 86 mm[Hg] [facility] Heart rate 2022-11-03 21:16:00 93 /min [facility] Body temperature 2022-11-03 21:16:00 36.44 Malou [facility] Respiratory rate 2022-11-03 21:16:00 18 /min [facility] Body height 2022-11-03 21:16:00 157.5 cm [facility] Body weight 2022-11-03 21:16:00 88.905 kg [facility] BMI 2022-11-03 21:16:00 35.85 kg/m2 [facility] Systolic blood pressure 2022-11-02 15:44:00 120 mm[Hg] [facility] Diastolic blood pressure 2022-11-02 15:44:00 83 mm[Hg] [facility] Heart rate 2022-11-02 15:44:00 106 /min [facility] Body temperature 2022-11-02 15:44:00 36.78 Malou [facility] Respiratory rate 2022-11-02 15:44:00 18 /min [facility] Body weight 2022-11-02 15:44:00 88.361 kg [facility] BMI 2022-11-02 15:44:00 35.63 kg/m2 [facility] Systolic blood pressure 2022-10-23 18:37:00 130 mm[Hg] [facility] Diastolic blood pressure 2022-10-23 18:37:00 87 mm[Hg] [facility] Heart rate 2022-10-23 18:37:00 97 /min [facility] Body temperature 2022-10-23 18:37:00 36.67 Malou [facility] Respiratory rate 2022-10-23 18:37:00 18 /min [facility] Body weight 2022-10-23 18:37:00 88.905 kg [facility] BMI 2022-10-23 18:37:00 35.85 kg/m2 [facility] Systolic blood pressure 2022-10-22 18:37:00 124 mm[Hg] [facility] Diastolic blood pressure 2022-10-22 18:37:00 85 mm[Hg] [facility] Heart rate 2022-10-22 18:37:00 94 /min [facility] Body temperature 2022-10-22 18:37:00 36.72 Malou [facility] Body height 2022-10-22 18:37:00 157.5 cm [facility] Body weight 2022-10-22 18:37:00 88.089 kg [facility] BMI 2022-10-22 18:37:00 35.52 kg/m2 [facility] Heart rate 2022-10-11 19:15:00 101 /min [facility] Oxygen saturation in Arterial blood by Pulse oximetry 2022-10-11 19:15:00 98 /min [facility] Systolic blood pressure 2022-10-11 19:00:00 123 mm[Hg] [facility] Diastolic blood pressure 2022-10-11 19:00:00 68 mm[Hg] [facility] Body temperature 2022-10-11 19:00:00 36.44 Malou [facility] Respiratory rate 2022-10-11 19:00:00 16 /min [facility] Body height 2022-10-11 18:50:00 157.5 cm [facility] Body weight 2022-10-11 18:50:00 89.359 kg [facility] BMI 2022-10-11 18:50:00 36.03 kg/m2 [facility] Systolic blood pressure 2022-10-09 19:34:00 131 mm[Hg] [facility] Diastolic blood pressure 2022-10-09 19:34:00 84 mm[Hg] [facility] Heart rate 2022-10-09 19:34:00 103 /min [facility] Body temperature 2022-10-09 19:34:00 36.83 Malou [facility] Respiratory rate 2022-10-09 19:34:00 18 /min [facility] Body height 2022-10-09 19:34:00 157.5 cm [facility] Body weight 2022-10-09 19:34:00 88.089 kg [facility] BMI 2022-10-09 19:34:00 35.52 kg/m2 [facility] Systolic blood pressure 2022-09-26 03:30:00 113 mm[Hg] [facility] Diastolic blood pressure 2022-09-26 03:30:00 71 mm[Hg] [facility] Heart rate 2022-09-26 03:30:00 80 /min [facility] Oxygen saturation in Arterial blood by Pulse oximetry 2022-09-26 03:30:00 99 /min [facility] Body temperature 2022-09-26 02:20:00 36.5 Malou [facility] Respiratory rate 2022-09-26 02:20:00 18 /min [facility] Body height 2022-09-26 01:57:00 157.5 cm [facility] Body weight 2022-09-26 01:57:00 90.22 kg [facility] BMI 2022-09-26 01:57:00 36.38 kg/m2 [facility] Heart rate 2022-09-03 04:12:00 85 /min [facility] Oxygen saturation in Arterial blood by Pulse oximetry 2022-09-03 04:12:00 99 /min [facility] Systolic blood pressure 2022-09-03 04:00:00 114 mm[Hg] [facility] Diastolic blood pressure 2022-09-03 04:00:00 73 mm[Hg] [facility] Body temperature 2022-09-03 03:47:00 36.33 Malou [facility] Respiratory rate 2022-09-03 03:47:00 17 /min [facility] Body height 2022-09-03 03:47:00 157.5 cm [facility] Body weight 2022-09-03 03:47:00 88.451 kg [facility] BMI 2022-09-03 03:47:00 35.67 kg/m2 [facility] Systolic blood pressure 2022-02-09 20:41:00 126 mm[Hg] [facility] Diastolic blood pressure 2022-02-09 20:41:00 90 mm[Hg] [facility] Heart rate 2022-02-05 19:35:00 84 /min [facility] Body temperature 2022-02-05 19:35:00 36.5 Malou [facility] Respiratory rate 2022-02-05 19:35:00 18 /min [facility] Body height 2022-02-05 19:35:00 157.5 cm [facility] Body weight 2022-02-05 19:35:00 83.825 kg [facility] BMI 2022-02-05 19:35:00 33.80 kg/m2 [facility] Body Temperature 2019-06-12 18:15:00 98.4 [degF] [facility] Heart Rate 2019-06-12 18:15:00 98 /min [facility] Respiratory rate 2019-06-12 18:15:00 18 /min [facility] BP Systolic 2019-06-12 18:15:00 137 mm[Hg] [facility] BP Diastolic 2019-06-12 18:15:00 71 mm[Hg] [facility] Heart Rate 2019-06-12 15:36:00 118 /min [facility] BP Systolic 2019-06-12 15:36:00 140 mm[Hg] [facility] Diastolic 2019-06-12 15:36:00 80 mm[Hg] [facility] BMI (Body Mass Index) 2019-06-12 15:36:00 39.3 kg/m2 [facility] Weight 2019-06-12 15:26:00 215 [lb_av] [facility] Respiratory rate 2019-01-29 11:35:00 22 /min [facility] Procedures Procedure Date / Time Performed Performing Clinician Source POCT URINALYSIS 2023-10-18 00:00:00 Liberty Watson [facility] POCT GLUCOSE (AUTOMATED) 2023-10-16 22:29:00 Camille Josue [facility] XR CHEST 1 VW 2023-10-16 21:12:14 [facility] POCT TEST 2023-10-16 21:01:00 Liane Josue [facility] COMP. METABOLIC PANEL (16639) 2023-10-16 20:53:[address] [facility] CBC WITH DIFF 2023-10-16 20:53:00 [facility] URINALYSIS 2023-10-16 20:53:00 [facility] POCT GLUCOSE (AUTOMATED) 2023-10-16 20:21:00 Doc tor Unassigned, [place] [facility] PAP SMEAR-LIQUID BASED-CP 2023-09-22 19:04:00 Adum, Mirian Greenberg [facility] POCT SARS-COV-2 ANTIGEN (BINAX NOW) 2023-08-14 00:20:00 Palak Munguia [facility] POCT SARS-COV-2 ANTIGEN (BINAX NOW) 2023-06-25 16:16:00 Hali Lema [facility] POCT MOLECULAR FLU 2023-06-25 16:02:00 Unknown, Attend ing [facility] POCT MOLECULAR STREP 2023-06-25 16:00:00 Unknown, Atte ashley [facility] FLU VACC (), 6 MO-64 YRS, .5ML, IM, QUAD (FLUCELVAX) 2023-05-12 16:10:37 Obi-Liberty Cash [facility] CONSENT FOR CONTRACEPTION 2023-01-26 05:01:00 Doctor Unassigned, [place] [facility] POCT TEST 2023-01-26 00:00:00 Adum, Mirian Greenberg [facility] POCT URINALYSIS W/O SPECIFIC GRAVITY 2023-01-11 15:24:00 Nela Bone [facility] CONSENT FOR CONTRACEPTION 2022-12-31 05:01:00 Doctor Unassigned, [place] [facility] CBC WITH DIFF 2022-12-10 08:59:00 [facility]RHAGE SCREEN 2022-12-10 08:59:00 Keven Daniel [facility] VENOUS CORD GAS 2022-12-10 02:33:00 Keven Daniel [facility] PREPARE PACKED RBC 2022-12-09 22:47:42 Adum, Mirian Greenberg [facility] CENTRAL NEURAXIAL BLOCK 2022-12-09 20:55:00 Juan Carlos Arevalo [facility] CBC WITH DIFF 2022-12-09 18:59:00 [facility] ANTIGEN 2022-12-09 18:59:00 Adum, Mirian Greenberg [facility] HB ABO GROUPING 2022-12-09 18:59:00 Adum, Mirian Beth [facility] RHO (D) IMMUNE GLOBULIN 2022-12-09 18:59:00 Keven Daniel [facility] ADC OR MAGALY ONLY - RPR 2022-12-09 18:59:00 Adum, Mirian Greenberg [facility] HIV 1/2 AG-AB WITH REFLEX 2022-12-09 18:59:00 Adum, Mirian Greenberg [facility] US PELVIS > 14 WEEKS 2022-12-09 17:09:56 Adum, Mirian Greenberg [facility] GC & CHLAMYDIA AMPLIFIED ASSAY 2022-12-09 16:55:00 Adum, Mirian Greenberg [facility] ADC ONLY - FERN TEST 2022-12-09 16:55:00 Adum, Mirian Greenberg [facility] ASSIGNMENT OF BENEFITS 2022-12-09 14:14:55 Docto r Unassigned, [place] [facility] CONSENT/REFUSAL FOR DIAGNOSIS AND TREATMENT 2022-12-09 14:14:12 Doctor Unassigned, [place] [facility] NON-STRESS TEST 2022-12-09 04:01:38 Adum, Mirian Greenberg [facility] CONSENT/REFUSAL FOR DIAGNOSIS AND TREATMENT 2022-12-03 22:40:05 Doctor Unassigned, [place] [facility] NON-STRESS TEST 2022-12-01 23:40:44 Adum, Mirian Greenberg [facility] POCT URINALYSIS W/O SPECIFIC GRAVITY 2022-12-01 18:21:00 Adum, Mirian Greenberg [facility] URINALYSIS 2022-11-25 17:55:00 [facility] 2022-11-25 17:49:00 Adum, Rochelle Greenberg [facility] CONSENT/REFUSAL FOR DIAGNOSIS AND TREATMENT 2022-11-25 15:45:52 Doctor Unassigned, [place] [facility] ASSIGNMENT OF BENEFITS 2022-11-25 15:43:30 Docto r Unassigned, [place] [facility] NOTICE OF PRIVACY PRACTICES 2022-11-19 17:08:50 Doctor Unassigned, [place] [facility] CONSENT/REFUSAL FOR DIAGNOSIS AND TREATMENT 2022-11-19 17:08:27 Doctor Unassigned, [place] [facility] POCT URINALYSIS W/O SPECIFIC GRAVITY 2022-11-17 00:00:00 Adum, Mirian Greenberg [facility] ASSIGNMENT OF BENEFITS 2022-11-09 18:26:54 Docto r Unassigned, [place] [facility] POCT URINALYSIS W/O SPECIFIC GRAVITY 2022-11-03 00:00:00 Adum, Mirian Greenberg [facility] EXTERNAL PROVIDER RECORDS 2022-10-29 05:01:00 Doctor Unassigned, [place] [facility] 3 HR GLUCOSE TOLERANCE TEST 2022-10-26 16:14:00 Adum, Mirian Greenberg [facility] 2 HR GLUCOSE TOLERANCE TEST 2022-10-26 15:18:00 Adum, Mirian Greenberg [facility] 1 HR GLUCOSE TOLERANCE TEST 2022-10-26 14:19:00 Adum, Mirian Greenberg [facility] GLUCOSE FASTING 2022-10-26 13:16:00 Adum, Mirian [facility] GLYCOSYLATED HEMOGLOBIN (A1C) 2022-10-26 13:16:00 Adum, Mirian Greenberg [facility] 3 HR GLUCOSE TOLERANCE PANEL 2022-10-26 13:16:00 Adum, Mirian Greenberg [facility] TDAP VACCINE, >11 YRS, IM 2022-10-23 18:48:09 Adum, Mirian Greenberg [facility] POCT URINALYSIS W/O SPECIFIC GRAVITY 2022-10-22 18:47:00 Adum, Mirian Greenberg [facility] POCT URINALYSIS W/O SPECIFIC GRAVITY 2022-10-12 00:00:00 Adum, Mirian Greenberg [facility] CONSENT/REFUSAL FOR DIAGNOSIS AND TREATMENT 2022-10-11 18:25:40 Doctor Unassigned, [place] [facility] AUTHORIZATION FOR RELEASE OF PHI 2022-10-09 05:01:00 Doctor Unassigned, [place] [facility] SGOT (ASPARTATE AMINO TRANSFER) 2022-09-26 02:29:00 Adum, Mirian Greenberg [facility] CREATININE 2022-09-26 02:29:00 Adum, Mirian Greenberg [facility] ALANINE AMINO TRANSFERASE(SGPT 2022-09-26 02:29:00 Adum, Mirian Greenberg [facility] LACTATE DEHYDROGENASE 2022-09-26 02:29:00 Adum, Mirian Greenberg [facility] URIC ACID 2022-09-26 02:29:00 Adum, Mirian Greenberg [facility] CBC WITH DIFF 2022-09-26 02:29:00 Adum, Mirian Greenberg [facility] URINALYSIS 2022-09-26 02:29:00 Adum, Mirian Greenberg [facility] PROTEIN CREAT RATIO URINE RANDOM 2022-09-26 02:29:00 Adum, Mirian Greenberg [facility] CONSENT/REFUSAL FOR DIAGNOSIS AND TREATMENT 2022-09-26 01:34:01 Doctor Unassigned, [place] [facility] ASSIGNMENT OF BENEFITS 2022-09-26 01:33:46 Docto r Unassigned, [place] [facility] NOTICE OF PRIVACY PRACTICES 2022-09-03 03:15:26 Doctor Unassigned, [place] [facility] CONSENT/REFUSAL FOR DIAGNOSIS AND TREATMENT 2022-09-03 03:03:10 Doctor Unassigned, [place] [facility] GC & CHLAMYDIA AMPLIFIED ASSAY 2022-02-05 20:23:00 Doug Blancas [facility] TRICHOMONAS AMPLIFIED ASSAY 2022-02-05 20:23:00 Doug Blancas [facility] POCT TEST 2022-02-05 00:00:00 Doug Blancas [facility] POCT URINALYSIS W/O SPECIFIC GRAVITY 2022-02-05 00:00:00 Doug Blancas [facility] REFERRAL- REQUEST/RESPONSE 2022-01-22 05:01:00 Doctor Unassigned, [place] [facility] Encounters Start Date/Time End Date/Time Encounter Type Admission Type Attending [facility] Care Facility Care Department Encounter ID Source 2022-12-03 19:06:52 Outpatient X [facility] [id number] [facility] 2024-01-05 13:20:00 2024-01-05 13:20:00 Outpatient R OBI-SHAILESH , [facility] OBI-SHAILESH , [facility] [id number] [facility] 2023-11-04 14:30:00 2023-11-04 14:30:00 Outpatient [facility] [id number] [facility] 2023-11-01 10:00:00 2023-11-01 10:00:00 Outpatient [facility] [id number] [facility] 2023-10-25 11:30:00 2023-10-25 11:45:00 Forestry Consultant [facility] [id number] [id number] [id number] [facility] 2023-10-25 11:30:00 2023-10-25 11:30:00 Outpatient R CHUCHO [facility] [id number] [facility] 2023-10-25 11:00:00 2023-10-25 11:30:00 Office Visit Glory [facility] 1.840.114 [id number] [id number] [id number] [facility] 2023-10-20 00:00:00 2023-10-20 00:00:00 Telephone [facility] mejía [facility] [id number] 350.1.13.10 4.2.7.2.686 [id number] [facility] 2023-10-18 13:00:00 2023-10-18 13:34:24 Outpatient R [facility] [id number] [facility] 2023-10-18 13:00:00 2023-10-18 13:34:24 Office Visit Shirley [facility] [id number] 350.1.13.10 4.2.7.2.686 [id number] [facility] 2023-10-16 15:23:00 2023-10-16 17:53:00 Emergency X JOSELO[facility] [id number] [facility] 2023-10-16 15:23:00 2023-10-16 17:53:00 Emergency [facility] 1.840.114 350.1.13.10 4.2.7.2.686 [id number] [facility] 2023-10-13 00:00:00 2023-10-13 00:00:00 Refill [facility] 1..840.114 350.1.13.10 4.2.7.2.686 [id number] [facility] 2023-10-12 00:00:2023-10-12 00:00:00 Letter (Out) [facility] [id number] 350.1.13.10 4.2.7.2.686 [id number] [facility] 2023-10-12 00:00:00 2023-10-12 00:00:00 Telephone [facility] 1.2840.114 350.1.13.10 4.2.7.2.686 [id number] [facility] 2023-10-07 10:00:00 2023-10-07 10:15:00 Forestry Consultant Visit [facility] Her[facility] 1..114 350.1.13.10 4.2.7.2.686 [id number] [facility] 2023-10-07 09:00:00 2023-10-07 09:30:00 Office Visit Post[facility]ane mejía [facility] 1..114 350.1.13.10 4.2.7.2.686 [id number] [facility] 2023-10-07 09:00:00 2023-10-07 09:00:00 Outpatient THA [facility] [id number] [facility] 2023-10-07 00:00:00 2023-10-07 00:00:00 Telephone [facility] 1.2.114 350.1.13.10 4.2.7.2.686 [id number] [facility] 2023-10-05 00:00:00 2023-10-05 00:00:00 [facility] 1.20.114 350.1.13.10 4.2.7.2.686 [id number] [facility] 2023-10-03 00:00:00 2023-10-03 00:00:00 Patient Secure Dago Herr [facility] PROFESSIO NAL BUILDING 1.2.840.114 350.1.13.10 4.2.7.2.686 [id number] 044 [id number] [facility] 2023-10-01 15:15:00 2023-10-01 15:30:00 Forestry Consultant Visit 2, Adc Lab Obi-Liberty Cash [facility] NAL BUILDING 1.2.840.114 350.1.13.10 4.2.7.2.686 [id number] 353 [id number] [facility] 2023-10-01 14:00:00 2023-10-01 15:10:37 [facility] [id number] 2023-10-01 14:00:00 2023-10-01 14:30:00 Office Visit Dago Ibarra [facility] BUILDING 1.2.840.114 350.1.13.10 4.2.7.2.686 [id number] 044 [id number] [facility] 2023-09-22 13:30:00 2023-09-22 14:07:04 Outpatient R MIRIAN WALL [facility] [id number] [facility] 2023-09-22 13:30:00 2023-09-22 14:07:04 Office Visit Mirian Wall [facility] 1.2840.114 350.1.13.10 4.2.7.2.686 [id number] 134 [id number] [facility] 2023-09-19 00:00:00 2023-09-19 00:00:00 Patient Secure Msg Doctor Unassigned, [place] [facility] 1.2.840.114 350.1.13.10 4.2.7.2.686 [id number] 220 [id number] [facility] 2023-09-14 00:00:00 2023-09-14 00:00:00 [facility] 1.2.840.114 350.1.13.10 4.2.7.2.686 [id number] 044 [id number] [facility] 2023-09-09 00:00:00 2023-09-09 00:00:00 Refill Obi-Shailesh [facility] NAL BUILDING 1.2.840.114 350.1.13.10 4.2.7.2.686 [id number] 044 [id number] [facility] 2023-09-08 00:00:00 2023-09-08 00:00:00 Telephone [facility] NIR?[facility] BU[facility] 1.2.840.114 350.1.13.10 4.2.7.2.686 [id number] 220 [id number] [facility] 2023-09-08 00:00:00 2023-09-08 00:00:00 Telephone Adrian ArandaCount includes the [facility] NIR?JOVANI [facility] OFF[facility] BUILDING 1.2.840.114 350.1.13.10 4.2.7.2.686 [id number] 220 [id number] [facility] 2023-09-07 15:00:00 2023-09-07 15:40:26 Outpatient R CHARLENE ARANDA [facility] [id number] [facility] 2023-09-07 15:00:00 2023-09-07 15:40:26 Office Visit Shaniqua [facility] NIR?[facility] MEDICAL OFFICE BUILDING 1.2840.114 350.1.13.10 4.2.7.2.686 [id number] 220 [id number] [facility] 2023-09-07 00:00:00 2023-09-07 00:00:00 Telephone Shirley [facility] BUILDING 1.2840.114 350.1.13.10 4.2.7.2.686 [id number] 044 [id number] [facility] 2023-09-07 00:00:00 2023-09-07 00:00:00 Telephone Charlene Aranda PENDING S[facility] TO [facility] MEDICAL OFFICE BUILDING 1.840.114 350.1.13.10 4.2.7.2.686 [id number] 220 [id number] [facility] 2023-09-07 00:00:00 2023-09-07 00:00:00 Patient Secure Msg Doctor Unassigned, [place] [facility] MEDICAL OFFICE BUILDING 1.0.114 350.1.13.10 4.2.7.2.686 [id number] 220 [id number] [facility] 2023-09-07 00:00:00 2023-09-07 00:00:00 Telephone Mirian Wall [facility] BUILDING 1.20.114 350.1.13.10 4.2.7.2.686 [id number] 134 [id number] [facility] 2023-09-06 16:15:00 2023-09-06 16:30:00 Forestry Consultant Visit Lab, Júnior - Yosi EmShailesh , [facility] NIR?[facility] MEDICAL OFFICE BUILDING 1.2840.114 350.1.13.10 4.2.7.2.686 [id number] 353 [id number] [facility] 2023-09-06 16:15:00 2023-09-06 16:15:00 Outpatient R OBI-SHAILESHLIBERTY Huitron [facility] [id number] [facility] 2023-09-06 15:00:00 2023-09-06 15:21:14 [facility] 1.2.840.114 350.1.13.10 4.2.7.2.686 [id number] 044 [id number] [facility] 2023-09-06 00:00:00 2023-09-06 00:00:00 Refill Obrobbin-Shailesh [facility] NAL BUILDING 1.2.840.114 350.1.13.10 4.2.7.2.686 [id number] 044 [id number] [facility] 2023-09-06 00:00:00 2023-09-06 00:00:00 Telephone Shaniqua Charlene PENDING SALE TO [facility] HEALTHE?JOVANILizandro [facility] OFF[facility] BUILDING 1.2.840.114 350.1.13.10 4.2.7.2.686 [id number] 220 [id number] [facility] 2023-09-01 13:20:00 2023-09-01 13:20:00 Outpatient R OBI-LIBERTY CASH [facility] [id number] [facility] 2023-08-20 00:00:00 2023-08-20 00:00:00 Refill Skinnyhafsa [facility] NIR?JOVANILizandro [facility] BU[facility] 1.2.840.114 350.1.13.10 4.2.7.2.686 [id number] 220 [id number] [facility] 2023-08-13 18:20:00 2023-08-13 18:40:00 Urgent Care Hali Lema Unknown, Attending [facility] BU[facility] 1..840.114 350.1.13.10 4.2.7.2.686 [id number] 370 [id number] [facility] 2023-08-13 18:20:00 2023-08-13 18:20:00 Outpatient R JUDIEYASSINEHALI Wong [facility] [id number] [facility] 2023-06-25 09:20:00 2023-06-25 10:22:05 Outpatient R CARMELO SHEEHAN [facility] [id number] [facility] 2023-06-25 09:20:00 2023-06-25 10:22:05 Urgent Care Carmelo Sheehan Unknown, Attending [facility] BU[facility] 1..840.114 350.1.13.10 4.2.7.2.686 [id number] [facility] 2023-06-16 13:00:00 2023-06-16 13:26:21 Outpatient R LIBERTY [facility] [id number] [facility] 2023-06-16 13:00:00 2023-06-16 13:26:21 Office Visit RyderAdryan [facility] BUILDING 1..840.114 350.1.13.10 4.2.7.2.686 [id number] 044 [id number] [facility] 2023-06-16 00:00:00 2023-06-16 00:00:00 Telephone Shirley [facility] BUILDING 1..840.114 350.1.13.10 4.2.7.2.686 [id number] 044 [id number] [facility] 2023-06-16 00:00:00 2023-06-16 00:00:00 [facility] 1.2.840.114 350.1.13.10 4.2.7.2.686 [id number] 044 [id number] [facility] 2023-06-15 09:00:00 2023-06-15 09:00:00 Outpatient R OBI-SHAILESH , LIBERTY [facility] [id number] [facility] 2023-06-14 13:00:00 2023-06-14 13:00:00 Outpatient R OBI-SHAILESH , LIBERTY [facility] [id number] [facility] 2023-06-02 15:20:00 2023-06-02 15:49:08 Outpatient R OBI-SHAILESH , LIBERTY [facility] [id number] [facility] 2023-06-02 15:20:00 2023-06-02 15:49:08 Office Visit Obi-Liberty Cash [facility] 1.2.840.114 350.1.13.10 4.2.7.2.686 [id number] 044 [id number] [facility] 2023-05-27 11:00:00 2023-05-27 11:00:00 Outpatient R OBI-SHAILESH , LIBERTY [facility]ESH [facility] [id number] [facility] 2023-05-26 09:20:00 2023-05-26 09:20:00 Outpatient R OBI-SHAILESH , LIBERTY [facility]AILESH [facility] [id number] [facility] 2023-05-15 00:00:00 2023-05-15 00:00:00 Patient Secure Msg Doctor Unassigned, [place] [facility] 1.2.840.114 350.1.13.10 4.2.7.2.686 [id number] [facility] 2023-05-14 09:00:00 2023-05-14 10:00:40 Outpatient R CHARLENE ARANDA [facility] [id number] [facility] 2023-05-14 09:00:00 2023-05-14 10:00:40 Office Visit Charlene Aranda PENDING SALE TO [facility] BU[facility] 1.2.840.114 350.1.13.10 4.2.7.2.686 [id number] 220 [id number] [facility] 2023-05-12 11:00:00 2023-05-12 11:15:00 Forestry Consultant Visit 2, Adc Lab Bola-Shailesh [facility] BUILDING 1..840.114 350.1.13.10 4.2.7.2.686 [id number] 353 [id number] [facility] 2023-05-12 10:00:00 2023-05-12 10:47:03 Outpatient R OBI-SHAILESH , LIBERTY OBI-SHAILESH , [facility] [id number] [facility] 2023-05-12 10:00:00 2023-05-12 10:47:03 Office Visit FloraShailesh , [facility] BUILDING 1.2.840.114 350.1.13.10 4.2.7.2.686 [id number] 044 [id number] [facility] 2023-05-10 08:00:00 2023-05-10 08:00:00 Outpatient R OBI-SHAILESH LIBERTY OBI-SHAILESH [facility] [id number] [facility] 2023-03-10 13:30:00 2023-03-10 13:30:00 Outpatient R OLAYINKA CHERRY [facility] [id number] [facility] 2023-02-04 00:00:00 2023-02-04 00:00:00 Patient Secure Msg AdMirian coles [facility] BUILDING 1.2.840.114 350.1.13.10 4.2.7.2.686 [id number] 134 [id number] [facility] 2023-02-02 00:00:00 2023-02-02 00:00:00 Patient Secure Msg AdMirian coles [facility] 1..840.114 350.1.13.10 4.2.7.2.686 [id number] 134 [id number] [facility] 2023-01-26 15:30:00 2023-01-26 16:41:21 Outpatient R MONICA [facility] [id number] [facility] 2023-01-26 15:30:00 2023-01-26 16:41:21 Routine Visit Mirian Wall [facility] 1..840.114 350.1.13.10 4.2.7.2.686 [id number] 134 [id number] [facility] 2023-01-26 00:00:00 2023-01-26 00:00:00 Orders Only Doctor Unassigned, [place] [facility] 1..840.114 350.1.13.10 4.2.7.2.686 [id number] [id number] [facility] 2023-01-11 10:00:00 2023-01-11 11:17:26 Outpatient R NELA AIKEN MARISOL [facility] [id number] [facility] 2023-01-11 10:00:00 2023-01-11 10:30:00 Office Visit Nela Aiken [facility] 1..840.114 350.1.13.10 4.2.7.2.686 [id number] 134 [id number] [facility] 2022-12-31 13:00:00 2022-12-31 13:50:06 Outpatient R ADUM, MIRIAN [facility] [id number] [facility] 2022-12-31 13:00:00 2022-12-31 13:50:06 Routine Visit Adum, Mirian Greenberg [facility] 1.2.840.114 350.1.13.10 4.2.7.2.686 [id number] 134 [id number] [facility] 2022-12-31 00:00:00 2022-12-31 00:00:00 Orders Only Doctor Unassigned, [place] [facility] 1.2.840.114 350.1.13.10 4.2.7.2.686 [id number] [facility] 2022-12-25 14:15:00 2022-12-25 14:15:00 Outpatient P [facility] [id number] [facility] 2022-12-24 00:00:00 2022-12-24 00:00:00 Telephone Adum, Mirian Greenberg [facility] 1.2.840.114 350.1.13.10 4.2.7.2.686 [id number] 134 [id number] [facility] 2022-12-22 13:00:00 2022-12-22 13:00:00 Outpatient R ADUM, [facility] [id number] [facility] 2022-12-15 13:00:00 2022-12-15 13:00:00 Outpatient R ADUM, [facility] [id number] [facility] 2022-12-14 00:00:00 2022-12-14 00:00:00 Encounter 1.2.840.1 94550.1.1 3.104.2.7 .[id number] 1.2.840.114 350.1.13.10 4.2.7.2.696 [id number] [facility] 2022-12-09 09:22:00 2022-12-10 12:55:00 Hospital Encounter Keven Daniel Cam Adum, Mirian Dionicio [facility] 1.2.840.114 350.1.13.10 4.2.7.2.686 [id number] 083 [id number] [facility] 2022-12-09 09:22:00 2022-12-10 12:55:00 Inpatient X ADMIRIAN COLES [facility] [id number] [facility] 2022-12-09 15:55:00 2022-12-09 21:22:00 Anesthesia Event Juan Carlos Arevalo [facility] 1.2.840.114 350.1.13.10 4.2.7.2.686 [id number] [id number] [facility] 2022-12-09 00:00:00 2022-12-09 00:00:00 Orders Only Doctor Unassigned, [place] [facility] 1.2.840.114 350.1.13.10 4.2.7.2.686 [id number] [facility] 2022-12-09 00:00:00 2022-12-09 00:00:00 Telephone [facility] 1.2.840.114 350.1.13.10 4.2.7.2.686 [id number] 134 [id number] [facility] 2022-12-08 13:00:00 2022-12-08 14:06:40 Outpatient R ADMIRIAN COLES [facility] [id number] [facility] 2022-12-08 13:00:00 2022-12-08 14:06:40 Routine Visit Room, [facility] N[facility] AdMirian coles [facility] 1.0.114 350.1.13.10 4.2.7.2.686 [id number] 134 [id number] [facility] 2022-12-03 18:04:00 2022-12-03 19:06:00 Outpatient X ADUM, [facility]PLACED [facility] [id number] [facility] 2022-12-03 18:04:00 2022-12-03 19:06:00 Emergency AdumMirian [facility] 1..114 350.1.13.10 4.2.7.2.686 [id number] 083 [id number] [facility] 2022-12-02 13:00:00 2022-12-02 14:00:00 Forestry Consultant Visit 3, [facility] Us [facility] 1.114 350.1.13.10 4.2.7.2.686 [id number] [facility] 2022-12-02 13:00:00 2022-12-02 13:00:00 Outpatient P JAMEY PLASCENCIA [facility] [id number] [facility] 2022-12-02 00:00:00 2022-12-02 00:00:00 Case Management Timo Corona [facility] 1.114 350.1.13.10 4.2.7.2.686 [id number] 134 [id number] [facility] 2022-12-01 13:00:00 2022-12-01 13:53:15 Outpatient R ADUM [facility] [id number] [facility] 2022-12-01 13:00:00 2022-12-01 13:53:15 Routine Visit Room, [facility] Nst Adum, [facility] 1..114 350.1.13.10 4.2.7.2.686 [id number] 134 [id number] [facility] 2022-12-01 13:00:00 2022-12-01 13:00:00 Outpatient R MIRIAN WALL [facility] [id number] [facility] 2022-11-25 10:37:00 2022-11-25 16:55:00 Outpatient P MIRIAN WALL [facility] [id number] [facility] 2022-11-25 10:37:00 2022-11-25 16:55:00 Hospital Encounter AdumMirian [facility] 1.2840.114 350.1.13.10 4.2.7.2.686 [id number] 083 [id number] [facility] 2022-11-25 00:00:00 2022-11-25 00:00:00 Telephone AdMirian coles [facility] PROFESSIO [facility] 1.2840.114 350.1.13.10 4.2.7.2.686 [id number] 134 [id number] [facility] 2022-11-24 10:00:00 2022-11-24 10:00:00 Outpatient R [facility] [id number] [facility] 2022-11-22 00:00:00 2022-11-22 00:00:00 Nurse Triage Abigail Neely [facility] 1.20.114 350.1.13.10 4.2.7.2.686 [id number] 019 [id number] [facility] 2022-11-19 12:21:00 2022-11-19 13:45:00 Outpatient X MIRIAN WALL [facility] [id number] [facility] 2022-11-19 12:21:00 2022-11-19 13:45:00 Emergency AdMirian coles [facility] 1.2840.114 350.1.13.10 4.2.7.2.686 [id number] 083 [id number] [facility] 2022-11-17 13:15:00 2022-11-17 13:42:03 Outpatient R ADUM, MIRIAN [facility] [id number] [facility] 2022-11-17 13:15:00 2022-11-17 13:42:03 Routine Visit Adum, Mirian [facility] BUILDING 1.2.840.114 350.1.13.10 4.2.7.2.686 [id number] 134 [id number] [facility] 2022-11-09 13:27:57 2022-11-09 14:18:09 Outpatient R ADUM, MIRIAN [facility] [id number] [facility] 2022-11-09 13:30:00 2022-11-09 13:45:00 Forestry Consultant Visit 2, Adc Lab Adum, Mirian [facility] BUILDING 1.2.840.114 350.1.13.10 4.2.7.2.686 [id number] 353 [id number] [facility] 2022-11-09 00:00:00 2022-11-09 00:00:00 Orders Only Doctor Unassigned, [place] [facility] 1.2.840.114 350.1.13.10 4.2.7.2.686 [id number] [id number] [facility] 2022-11-09 00:00:00 2022-11-09 00:00:00 Telephone Adum, Mirian Greenberg [facility] 1.2.840.114 350.1.13.10 4.2.7.2.686 [id number] 134 [id number] [facility] 2022-11-03 16:00:00 2022-11-03 16:43:05 Outpatient R ADUM, MIRIAN [facility] [id number] [facility] 2022-11-03 16:00:00 2022-11-03 16:43:05 Routine Visit Adum, Mirian Green[facility] BU[facility] 1.2.840.114 350.1.13.10 4.2.7.2.686 [id number] 134 [id number] [facility] 2022-11-02 10:00:00 2022-11-02 10:41:26 Outpatient R ADUM, MIRIAN [facility] [id number] [facility] 2022-11-02 10:00:00 2022-11-02 10:41:26 Nurse Visit Nurse, [facility] Adum, Mirian Greenberg [facility] BUILDING 1.2.840.114 350.1.13.10 4.2.7.2.686 [id number] 134 [id number] [facility] 2022-10-29 00:00:00 2022-10-29 00:00:00 Orders Only Doctor Unassigned, [place] [facility] 1.2.840.114 350.1.13.10 4.2.7.2.686 [id number] [id number] [facility] 2022-10-29 00:00:00 2022-10-29 00:00:00 Telephone Adum, Mirian Greenberg [facility] 1.2.840.114 350.1.13.10 4.2.7.2.686 [id number] 134 [id number] [facility] 2022-10-29 00:00:00 2022-10-29 00:00:00 Telephone Adum, Mirian Greenberg [facility] BUILD[facility] 1.2.840.114 350.1.13.10 4.2.7.2.686 [id number] 134 [id number] [facility] 2022-10-28 00:00:00 2022-10-28 00:00:00 Telephone Adum, Mirian Greenberg [facility] BU[facility] 1.2.840.114 350.1.13.10 4.2.7.2.686 [id number] 134 [id number] [facility] 2022-10-28 00:00:00 2022-10-28 00:00:00 Case Management Timo Corona [facility] 1.84.114 350.1.13.10 4.2.7.2.686 [id number] 134 [id number] [facility] 2022-10-26 08:15:00 2022-10-26 11:25:08 Forestry Consultant Visit 2, [facility] Lab Adum, [facility] BUILDING 1.840.114 350.1.13.10 4.2.7.2.686 [id number] 353 [id number] [facility] 2022-10-26 08:15:00 2022-10-26 08:15:00 Outpatient R ADUM [facility] [id number] [facility] 2022-10-26 00:00:00 2022-10-26 00:00:00 Telephone Adum, [facility] BU[facility] 1..840.114 350.1.13.10 4.2.7.2.686 [id number] 044 [id number] [facility] 2022-10-23 14:00:00 2022-10-23 14:15:00 Nurse Visit Nurse, [facility] Ad, [facility] BUILDING 1.2840.114 350.1.13.10 4.2.7.2.686 [id number] 134 [id number] [facility] 2022-10-23 08:45:00 2022-10-23 09:16:08 Outpatient R ADSHARYN [facility] [id number] [facility] 2022-10-23 08:45:00 2022-10-23 09:00:00 Forestry Consultant Visit 2, [facility] Lab Adum, [facility] BUILDING 1.2840.114 350.1.13.10 4.2.7.2.686 [id number] 353 [id number] [facility] 2022-10-22 13:45:00 2022-10-22 14:35:18 Outpatient R ADUM, MIRIAN [facility] [id number] [facility] 2022-10-22 13:45:00 2022-10-22 14:35:18 Routine Visit Adum, Mirian Greenberg [facility] 1.2.840.114 350.1.13.10 4.2.7.2.686 [id number] 134 [id number] [facility] 2022-10-12 00:00:00 2022-10-12 00:00:00 Telephone Adum, Mirian Greenberg [facility] 1.2.840.114 350.1.13.10 4.2.7.2.686 [id number] 134 [id number] [facility] 2022-10-11 13:33:00 2022-10-11 14:55:00 Outpatient X CORONA-TERRY S, NELA CORONA-TERRY S, NELA [facility] [id number] [facility] 2022-10-11 13:33:00 2022-10-11 14:55:00 Emergency Corona-Terry s, Nela [facility] 1.2.840.114 350.1.13.10 4.2.7.2.686 [id number] [id number] [facility] 2022-10-09 14:00:00 2022-10-09 15:41:13 Outpatient R ADUM, MIRIAN [facility] [id number] [facility] 2022-10-09 14:00:00 2022-10-09 15:41:13 Initial Visit Adum, Mirian [facility] 1.2.840.114 350.1.13.10 4.2.7.2.686 [id number] [facility] 2022-10-09 00:00:00 2022-10-09 00:00:00 Orders Only Doctor Unassigned, [place] [facility] 1.2.840.114 350.1.13.10 4.2.7.2.686 [id number] [facility] 2022-09-25 21:02:00 2022-09-25 22:42:00 Outpatient X MIRIAN WALL [facility] [id number] [facility] 2022-09-25 21:02:00 2022-09-25 22:42:00 Emergency AdMirian coles [facility] 1.2.840.114 350.1.13.10 4.2.7.2.686 [id number] [facility] 2022-09-25 00:00:00 2022-09-25 00:00:00 Orders Only Doctor Unassigned, [place] [facility] 1.2840.114 350.1.13.10 4.2.7.2.686 [id number] [facility] 2022-09-02 21:12:00 2022-09-02 22:20:00 Outpatient P KEVEN DANIEL [facility] [id number] [facility] 2022-09-02 21:12:00 2022-09-02 22:20:00 Hospital Encounter DanielKeven Raffi [facility] 1.2.840.114 350.1.13.10 4.2.7.2.686 [id number] [facility] 2022-08-17 00:00:00 2022-08-17 00:00:00 Outpatient GC_SWHATBIC [facility]_S PRIV PRIV [id number] [facility] 2022-08-14 00:00:00 2022-08-14 00:00:00 Outpatient GC_SWHATBIC [facility]_S PRIV PRIV [id number] [facility] 2022-08-12 00:00:00 2022-08-12 00:00:00 Outpatient GC_SWHATBIC _[facility]_S PRIV PRIV [id number] [facility] 2022-08-11 00:00:00 2022-08-11 00:00:00 Outpatient GC_SWHATBIC _[facility]_S PRIV PRIV [id number] [facility] 2022-07-04 11:10:00 2022-07-04 16:53:00 Emergency EM Lynda-G alexijeremiRajesh [facility] SIA [id number] [facility] 2022 12:30:00 2022 12:30:00 Outpatient Ibrahima Peñaloza [facility] [id number] [facility] 2022-02-27 12:24:00 2022-02-27 12:24:00 Outpatient Ibrahima Peñaloza [facility] [id number] [facility] 2022-02-12 16:00:00 2022-02-12 16:00:00 Outpatient R DOUG BLANCAS [facility] [id number] [facility] 2022-02-12 00:00:00 2022-02-12 00:00:00 Telephone Doug Blancas [facility] 1.2.840.114 350.1.13.10 4.2.7.2.686 [id number] [facility] 2022-02-10 00:00:00 2022-02-10 00:00:00 Telephone Timo Corona [facility] 1.2.840.114 350.1.13.10 4.2.7.2.686 [id number] [facility] 2022-02-09 13:30:00 2022-02-09 13:50:52 [facility] [id number] [facility] 2022-02-09 13:30:00 2022-02-09 13:50:52 Outpatient R TIMO CORONA EVELIOTIMO NATHAN [facility] [id number] [facility] 2022-02-09 13:30:00 2022-02-09 13:50:52 Routine Visit Timo Corona [facility] [facility] 1.2.840.114 350.1.13.10 4.2.7.2.686 [id number] 134 [id number] [facility] 2022-02-09 00:00:00 2022-02-09 00:00:00 Telephone Doug Blancas [facility] 1.2.840.114 350.1.13.10 4.2.7.2.686 [id number] 134 [id number] [facility] 2022-02-05 14:30:00 2022-02-05 15:29:27 Outpatient R DOUG BLANCAS [facility] [id number] [facility] 2022-02-05 14:30:00 2022-02-05 15:29:27 Initial Visit Doug Blancas [facility] 1.2.840.114 350.1.13.10 4.2.7.2.686 [id number] 134 [id number] [facility] 2022-02-05 00:00:00 2022-02-05 00:00:00 Letter (Out) Dogu Blancas [facility] 1.2840.114 350.1.13.10 4.2.7.2.686 [id number] 134 [id number] [facility] 2022-02-04 00:00:00 2022-02-04 00:00:00 Telephone Lloyd Blancasn [facility] 1.2.840.114 350.1.13.10 4.2.7.2.686 [id number] 134 [id number] [facility] 2022-01-22 00:00:00 2022-01-22 00:00:00 Orders Only Doctor Unassigned, [place] [facility] 1.2.840.114 350.1.13.10 4.2.7.2.686 [id number] [id number] [facility] 2021-10-24 11:30:00 2021-10-24 12:15:20 Office Visit Timo Corona [facility] 1.2.840.114 350.1.13.10 4.2.7.2.686 [id number] 134 [id number] [facility] 2021-10-24 11:30:00 2021-10-24 12:15:20 [facility] [id number] [facility] 2021-10-24 11:30:00 2021-10-24 11:30:00 [facility] [id number] [facility] 2021-10-24 00:00:00 2021-10-24 00:00:00 Orders Only Doctor Unassigned, [place] [facility] 1.2.840.114 350.1.13.10 4.2.7.2.686 [id number] [facility] 2019-07-15 01:27:00 2019-07-15 01:27:00 Emergency AFSHIN LUIS GEORGIE [facility] [id number] [facility] 2019-06-12 15:21:00 2019-06-12 18:15:00 Departed Emergency Room [facility] [id number] [address] [place] [address] 2012-10-10 11:00:00 2012-10-10 12:25:04 Outpatient R GUS ESPINO[facility] [id number] [facility] Results Test Description Test Time Test Comments Results Result Co mments Source [facility] W Specific Fwffxpa7904-65-82 18:36:00* Test Item Value Reference Range Interpretation [...] U APPEAR (test code = 3267) Clear [facility] Urinalysis W Specific Ithqeck8576-01-27 18:36:00* Test Item Value Reference Range Interpretation [...] U APPEAR (test code = 3267) Clear [facility] GLUCOSE (AUTOMATED)2023-10-16 22:30:46* Test Item Value Reference Range Interpretation Comme [facility] POCT GLU (test code = 0477134952) 137 mg/dL 70-110 H Lab Interpretation (test cod e = 12898-2) Abnormal [facility]. METABOLIC PANEL (09699)2023-10-16 21:48:18* Test Item Value Reference Range Interpretation Comme nts NA (test code = 3344356049) 138 mmol/L 135-145 K (test code = 8689309295) 4.7 mmol/L 3.5-5.0 CL (test code = 8843975879) 105 mmol/L 98-108 CO2 TOTAL (test code = 8402476358) 23 mmol/L 23-31 AGAP (test code = 0265188248) 10 2-16 BUN (test code = 1227417189) 15 mg/dL 7-23 GLUCOSE (test code = 8261707293) 120 mg/dL 70-110 H CREATININE (test code = 2160-0) 0.58 mg/dL 0.50-1.04 TOTAL BILI (test code = 3751379480) 0.7 mg/dL 0.1-1.1 CALCIUM (test code = 0803341852) 9.4 mg/dL 8.6-10.6 T PROTEIN (test code = 1386954467) 9.1 g/dL 6.3-8.2 H ALBUMIN (test code = 3924237821) 4.6 g/dL 3.5-5.0 ALK PHOS (test code = 7061544644) 114 U/L 34-122 ALTv (test code = 1742-6) 94 U/L 5-35 H AST(SGOT) (test code = 8473384015) 67 U/L 13-40 H eGFR (test code = 30013-6) 128.2 mL/min/1.73m2 CKD-EPI eGFR (2020). Assuming creatinine has been stable day-to-day for at least three months, the eGFR indicates Category G1 (>= 90 mL/min/1.73 m2) Lab Interpretation (test code = 74511-9) Abnormal [facility] WITH [id number] 21:33:31* Test Item Value Reference Range Interpretation Comme [facility] WBC (test code = 6690-2) 7.20 4.30-11.10 RBC (test code = 789-8) 5.65 3.93-5.25 H HGB (test code = 718-7) 14.4 g/dL 11.6-15.0 HCT (test code = 4544-3) 47.1 % 35.7-45.2 H MCV (test code = 787-2) 83.4 fL 80.6-95.5 MCH (test code = 785-6) 25.5 pg 25.9-32.8 L MCHC (test code = 786-4) 30.6 g/dL 31.6-35.1 L RDW-SD (test code = 87861-1) 47.5 fL 39.0-49.9 RDW-CV (test code = 788-0) 16.5 % 12.0-15.5 H PLT (test code = 777-3) 330 166-358 MPV (test code = 43224-2) 11.9 fL 9.5-12.9 NRBC/100 WBC (test code = 7129851108) 0.0 0.0-10.0 NRBC x10^3 (test code = 6544085458) See_Comment [Automated messa ge] The system which generated this result transmitted reference range: 10*3/?L. The reference range was not used to interpret this result as normal/abnormal. GRAN MAT (NEUT) % (test code = 770-8) 50.1 % IMM GRAN % (test code = 7375990344) 0.40 % LYMPH % (test code = 736-9) 41.7 % MONO % (test code = 5905-5) 6.1 % EOS % (test code = 713-8) 1.1 % BASO % (test code = 706-2) 0.6 % GRAN MAT x10^3(ANC) (test code = 2144798167) 3.61 10*3/uL 1.88-7.09 IMM GRAN x10^3 (test code = 9775739902) 0.03 10*3/uL 0.00-0.06 LYMPH x10^3 (test code = 731-0) 3.00 10*3/uL 1.32-3.29 MONO x10^3 (test code = 742-7) 0.44 10*3/uL 0.33-0.92 EOS x10^3 (test code = 711-2) 0.08 10*3/uL 0.03-0.39 BASO x10^3 (test code = 704-7) 0.04 10*3/uL 0.01-0.07 Lab Interpretation (test code = 02834-2) Abnormal [facility] 1 [id number] 21:18:26EXAM: XR CHEST 1 10/16/2023 4:03 PM HISTORY: 28 years-old Female with weakness . TECHNIQUE: Portable AP view of the chest. COMPARISON: None. FINDINGS: Lines and tubes: None. Cardiomediastinal: The cardiomediastinal silhouette is unremarkable. Lungs and pleura: The lungs are clear. No focal consolidation,pneumothorax, or pleural effusion is seen. Included osseous structures show no acute abnormality. [facility] [id number] 21:01:00* Test Item Value Reference Range Interpretation Comme [facility] POCT PREG (test code = 1605) Negative On board controls acceptable with C Line (test code = 3574) Yes POCT PREG LOT # (test code = 3575) [id number] POCT PREG TEST DATE ( test code = 3576) 08/04/2024 Lab Interpretation (test cod e = 45254-9) Normal [facility] GLUCOSE (AUTOMATED)2023-10-16 20:32:36* Test Item Value Reference Range Interpretation Comme [facility] POCT GLU (test code = 3535188281) 77 mg/dL 70-110 Lab Interpretation (test cod e = 80626-1) Normal [facility] SARS-COV-2 ANTIGEN (BINAX NOW)2023-08-14 00:36:00* Test Item Value Reference Range Interpretation Comme [facility] POCT SARS-COV-2 ANTIGEN (test code = 00539-1) Positive Not Detected A On board controls acceptable with C Line (test code = 3574) Yes TIM (test code = ITM) accurate developme nt and interpretation of all internal controls Lab Interpretation (test code = 86318-8) Abnormal [facility] SARS-COV-2 ANTIGEN (BINAX NOW)2023-06-25 16:17:00* Test Item Value Reference Range Interpretation Comme nts POCT SARS-COV-2 ANTIGEN (test code = 34720-4) Not Detected Not Detected On board controls acceptable with C Line (test code = 3574) Yes TIM (test code = TIM) accurate developme nt and interpretation of all internal controls [facility] Molecular [id number] 16:14:45* Test Item Value Reference Range Interpretation Comme nts POCT Molecular FluA (test co de = 29058-7) Negative Negative POCT Molecular FluB (test co de = 61643-3) Negative Negative Lab Interpretation (test cod e = 84136-2) Normal [facility] MOLECULAR [id number] 16:08:16* Test Item Value Reference Range Interpretation Comme nts POCT Molecular Strep (test c ode = 23194-9) Negative Negative Lab Interpretation (test cod e = 38235-1) Normal [facility] [id number] 20:56:00* Test Item Value Reference Range Interpretation Comme nts POCT PREG (test code = 1605) Negative On board controls acceptable with C Line (test code = 3574) Yes POCT PREG LOT # (test code = 3575) POCT PREG TEST DATE ( test code = 3576) [facility] URINALYSIS W/O SPECIFIC BDJCQPC6710-09-98 15:24:00* Test Item Value Reference Range Interpretation [...] = 3257) Trace Negative - Negati ve [facility] URINALYSIS W/O SPECIFIC PJVEDMO1270-75-47 15:24:00* Test Item Value Reference Range Interpretation [...] = 3257) Trace Negative - Negati ve [facility] with Ghbdiziesrzt6803-75-94 12:11:12* Test Item Value Reference Range Interpretation [...] 32.5 g/dL 31.6-35.1 RDW-SD (test code = 74664-1) 37.9 fL 39.0-49.9 L RDW-CV (test code = 788-0) 12.5 % 12.0-15.5 PLT (test code = 777-3) 212 See_Comment [Automated messa ge] The system which generated this result transmitted reference range: 166 - 358 10*3/?L. The reference range was not used to interpret this result as normal/abnormal. MPV (test code = 65872-3) 13.7 fL 9.5-12.9 H IPF % (test code = 1018286551) 12.4 % 1.3-7.7 H Platelet count measured by fluorescence method. NRBC/100 WBC (test code = 6807700725) 0.0 See_Comment [Automated me ssage] The system which generated this result transmitted reference range: 0.0 - 10.0 /100 WBCs. The reference range was not used to interpret this result as normal/abnormal. NRBC x10^3 (test code = 4476069928) See_Comment [Automated messa ge] The system which generated this result transmitted reference range: 10*3/?L. The reference range was not used to interpret this result as normal/abnormal. GRAN MAT (NEUT) % (test code = 770-8) 88.8 % IMM GRAN % (test code = 4543859193) 0.50 % LYMPH % (test code = 736-9) 5.2 % MONO % (test code = 5905-5) 5.4 % EOS % (test code = 713-8) 0.0 % BASO % (test code = 706-2) 0.1 % GRAN MAT x10^3(ANC) (test code = 5904955571) 13.10 10*3/uL 1.88-7.09 H IMM GRAN x10^3 (test code = 9840312505) 0.08 10*3/uL 0.00-0.06 H LYMPH x10^3 (test code = 731-0) 0.77 10*3/uL 1.32-3.29 L MONO x10^3 (test code = 742-7) 0.79 10*3/uL 0.33-0.92 EOS x10^3 (test code = 711-2) 0.03-0.39 L BASO x10^3 (test code = 704-7) 0.01-0.07 Lab Interpretation (test code = 00126-7) Abnormal [facility] CampusFETAL MATERNAL HEMO YJCQID5970-11-42 10:52:00 * Test Item Value Reference Range Interpretation Comme nts SCREEN (test code = 846) Negative RHIG REQUIRED? (test code = 1747) 1 Syringe Patient is a can didate for RhIg- Patient is Rh Negative and baby is Rh Positive. [facility] CampusRHO (D) IMMUNE VSBUPETE1563-57-15 03:51:49* Test Item Value Reference Range Interpretation Comme nts RHIG CANDIDATE? (test code = 5188) Yes- see comment A Patient is a candidate for RhIg- Patient is Rh Negative and baby is Rh Positive.Performe d at [facility] Laboratory Services - [facility] Blood [address] [place] [address]Orug Free: [phone] No. [id number] Lab Interpretation (test code = 55776-8) Abnormal [facility] CampusHIV 1/2 AG-AB WITH [id number] 01:30:48* Test Item Value Reference Range Interpretation Comme nts HIV Semi-quantitative (test code = 61037-3) 0.18 Negative TIM (test code = TIM) Non-reactive for HIV-1 antigen and HIV-1/HIV-2 antibodies. ?No laboratory evidence of HIV infection. ?Repeat in 2-4 weeks if acute HIV infection is suspected. [facility] OR MAGALY ONLY - [id number] 01:11:37* Test Item Value Reference Range Interpretation Comme nts RPR (Qualitative) (test code = 84817-9) Nonreactive Nonreactive Lab Interpretation (test cod e = 64280-4) Normal [facility] CampusHepatitis B Surface Bjruqke4998-78-50 23:04:27 * Test Item Value Reference Range Interpretation Comme nts HBsAg Semi-Quantitative (chavez t code = 5195-3) 0.04 Negative [facility] with Brlidzfjfeiq7557-05-03 19:26:49* Test Item Value Reference Range Interpretation [...] 32.2 g/dL 31.6-35.1 RDW-SD (test code = 14706-3) 37.8 fL 39.0-49.9 L RDW-CV (test code = 788-0) 12.4 % 12.0-15.5 PLT (test code = 777-3) 218 See_Comment [Automated Mindflasha ge] The system which generated this result transmitted reference range: 166 - 358 10*3/?L. The reference range was not used to interpret this result as normal/abnormal. MPV (test code = 59841-9) 13.0 fL 9.5-12.9 H NRBC/100 WBC (test code = 0688041472) 0.0 See_Comment [Automated [employer] ssage] The system which generated this result transmitted reference range: 0.0 - 10.0 /100 WBCs. The reference range was not used to interpret this result as normal/abnormal. NRBC x10^3 (test code = 0583733093) See_Comment [Automated Mindflasha ge] The system which generated this result transmitted reference range: 10*3/?L. The reference range was not used to interpret this result as normal/abnormal. GRAN MAT (NEUT) % (test code = 770-8) 77.2 % IMM GRAN % (test code = 5896927600) 0.30 % LYMPH % (test code = 736-9) 15.6 % MONO % (test code = 5905-5) 6.5 % EOS % (test code = 713-8) 0.2 % BASO % (test code = 706-2) 0.2 % GRAN MAT x10^3(ANC) (test code = 7125505057) 6.76 10*3/uL 1.88-7.09 IMM GRAN x10^3 (test code = 4408366592) 0.03 10*3/uL 0.00-0.06 LYMPH x10^3 (test code = 731-0) 1.37 10*3/uL 1.32-3.29 MONO x10^3 (test code = 742-7) 0.57 10*3/uL 0.33-0.92 EOS x10^3 (test code = 711-2) 0.03-0.39 L BASO x10^3 (test code = 704-7) 0.01-0.07 Lab Interpretation (test code = 88958-5) Abnormal [facility] CampusType and Screen - ONCE [id number] 19:22:00 * Test Item Value Reference Range Interpretation Comme nts ABO & RH (test code = 20) A Negative IAT (test code = 1185) Positive [facility] URINALYSIS W/O SPECIFIC LZPXDUP9158-21-41 18:21:00* Test Item Value Reference Range Interpretation [...] internal controls Lab Interpretation (test code = 91069-4) Normal [facility] GLUCOSE (AUTOMATED)2022-11-25 18:00:27* Test Item Value Reference Range Interpretation Comme nts POCT GLU (test code = 8991225155) 80 mg/dL 70-110 Lab Interpretation (test cod e = 28346-8) Normal [facility] URINALYSIS W/O SPECIFIC AMJSADJ0083-84-37 18:17:00* Test Item Value Reference Range Interpretation [...] = 3257) n/a Negative - Negati ve [facility] URINALYSIS W/O SPECIFIC SIYZZNZ7091-52-10 05:00:00* Test Item Value Reference Range Interpretation [...] = 3257) NA Negative - Negati ve [facility] URINALYSIS W/O SPECIFIC GGINVQZ9200-90-85 18:47:00* Test Item Value Reference Range Interpretation [...] = 3257) n/a Negative - Negati ve [facility] URINALYSIS W/O SPECIFIC CTMJXIN4486-57-11 16:02:00* Test Item Value Reference Range Interpretation [...] = 3257) n/a Negative - Negati ve [facility] CampusUric Acid Kkrar8236-77-40 03:12:06* Test Item Value Reference Range Interpretation Comme nts URIC ACID (test code = 3040492145) 2.6 mg/dL 2.9-6.0 L Lab Interpretation (test cod e = 06531-8) Abnormal [facility] CampusAlanine Amino Transferase (SGPT)2022-09-26 03:12:06* Test Item Value Reference Range Interpretation Comme nts ALTv (test code = 1742-6) 11 U/L 5-35 Lab Interpretation (test cod e = 02894-4) Normal [facility] CampusLactate Idpimsvyuwnus4873-65-34 03:12:06* Test Item Value Reference Range Interpretation Comme nts LDH (test code = 5693208386) 123 U/L 120-246 Lab Interpretation (test cod e = 92454-1) Normal [facility] CampusSGOT (Asparate Amino Transfer)2022-09-26 03:11:46* Test Item Value Reference Range Interpretation Comme nts AST(SGOT) (test code = 9241653549) 19 U/L 13-40 Lab Interpretation (test cod e = 76084-2) Normal [facility] Ibbszqmmsv3286-32-27 03:11:45* Test Item Value Reference Range Interpretation Comme nts CREATININE (test code = 9111591829) 0.35 mg/dL 0.50-1.04 L eGFR (test code = 0681122649) 226.9 mL/min/1.73m2 TIM (test code = TIM) [...] imaging tests). Lab Interpretation (test code = 47805-8) Abnormal [facility] with Qdrcyeweiprp0886-44-79 03:09:28* Test Item Value Reference Range Interpretation Comme nts WBC (test code = 6690-2) 8.71 See_Comment [Automated [employer]] The system which generated this result transmitted reference range: 4.30 - 11.10 10*3/?L. The reference range was not used to interpret this result as normal/abnormal. RBC (test code = 789-8) 3.70 See_Comment L [Automated [employer]] The system which generated this result transmitted [...] 34.5 g/dL 31.6-35.1 RDW-SD (test code = 04090-7) 39.4 fL 39.0-49.9 RDW-CV (test code = 788-0) 12.5 % 12.0-15.5 PLT (test code = 777-3) 231 See_Comment [Automated messa ge] The system which generated this result transmitted reference range: 166 - 358 10*3/?L. The reference range was not used to interpret this result as normal/abnormal. MPV (test code = 50393-7) 11.8 fL 9.5-12.9 NRBC/100 WBC (test code = 5815356485) 0.0 See_Comment [Automated [employer] ssage] The system which generated this result transmitted reference range: 0.0 - 10.0 /100 WBCs. The reference range was not used to interpret this result as normal/abnormal. NRBC x10^3 (test code = 1551414464) See_Comment [Automated messa ge] The system which generated this result transmitted reference range: 10*3/?L. The reference range was not used to interpret this result as normal/abnormal. GRAN MAT (NEUT) % (test code = 770-8) 56.2 % IMM GRAN % (test code = 2273595046) 0.20 % LYMPH % (test code = 736-9) 34.4 % MONO % (test code = 5905-5) 8.0 % EOS % (test code = 713-8) 0.9 % BASO % (test code = 706-2) 0.3 % GRAN MAT x10^3(ANC) (test code = 2732425353) 4.88 10*3/uL 1.88-7.09 IMM GRAN x10^3 (test code = 5842382192) 0.00-0.06 LYMPH x10^3 (test code = 731-0) 3.00 10*3/uL 1.32-3.29 MONO x10^3 (test code = 742-7) 0.70 10*3/uL 0.33-0.92 EOS x10^3 (test code = 711-2) 0.08 10*3/uL 0.03-0.39 BASO x10^3 (test code = 704-7) 0.03 10*3/uL 0.01-0.07 Lab Interpretation (test code = 04281-3) Abnormal [facility] CampusTHYROID STIMULATING VPZJUXG3836-05-87 14:22:00 * Test Item Value Reference Range Interpretation Comme nts THYROID STIMULATING HORMONE (test code = TSH) 1.88 0.36-3.74 N Test Performed i n MicroInternational Units/mL HCG GNEYM0452-26-05 13:55:00* Test Item Value Reference Range Interpretation Comme nts HCG SERUM (test code = HCG) 87128 INTERPRETATION:V ALUES BETWEEN 15-20 milliInternational units/mL NEED TO BERETESTED WITHIN 48 HOURS. All units for these ranges are in milliInternationalunits/mL0-1 WK AFTER CONCEPTION 0-50 1-2 WKS AFTER CONCEPTION 40-3002-3 WKS AFTER CONCEPTION 100-1,0003-4 WKS AFTER CONCEPTION 500-6,0001-2 MONTHS AFTER CONCEPTION 5,000-200,0002-3 MONTHS AFTER CONCEPTION 10,000-100,0002ND TRIMESTER 3,000-50,0003RD TRIMESTER 1,000-50,000 SPECIMENS WITH AN HCG LEVEL FROM 0-6 milliInternationalunits/mL SHOULD BE CONSIDERED NEGATIVE COMPREHENSIVE METABOLIC GMFIE1598-03-74 13:24:00* Test Item Value Reference Range Interpretation [...] 46-116 N UA RFLX MICR CULT IF XUAJNJUHA3093-50-52 13:14:00* Test Item Value Reference Range Interpretation [...] code = URO) 0.2 EU/dL See_Comment [Automated Mindflasha ge] The system which generated this result [...] culture: Suprapubic PainSpecimen Description: CLEAN CATCHCBC W/AUTO [id number] 13:02:00* Test Item Value Reference Range Interpretation [...] PLTMR) NORMAL NORMAL - US PREG UT HPSYQINIAWHQ1420-06-18 00:00:00 [facility] : 1995 Sex: F Patient Name: DEYSI ALVAREZ Unit No: [id number] EXAMS: CPT CODE: [id number] US PREG UT TRANSVAGINAL 81589 PROCEDURE INFORMATION: Exam: US First Trimester (Transabdominal), [...] EGA (MSD) is 13 w 6 d [place]-Rump length: 77.7 mm. EGA (CRL) is 13 [...] space: No intraperitoneal free fluid. IMPRESSION: [facility] NAME: ARLETTE ALVAREZDINORA BYRNE Radiology Department PHYS: Rajesh Olea [address] : 1995 AGE: 27 SEX: F [place], [place] [address] LOC: DEA PHONE #: [phone] EXAM DATE: 07/04/2022 STATUS: MARYAN WONG FAX#: [phone] RAD NO: Page 1 Signed Report (CONTINUED) Patient Name: DEYSI ALVAREZ Unit No: [id number] EXAMS: CPT CODE: [id number] [facility] UT TRANSVAGINAL 72882 (Continued) 1. Single live intrauterine gestation corresponding to 13 weeks and 6 days by crown-rump length. 2. heart a ctivity of 157 the the bpm. 3. Low-lying placenta with 6.5 x 1.1 x 3.3 cm retroplacental hemorrhagealong the lower uterine segment. 3.2 x 3.5 x 0.8 cm subchorionic hemorrhage along the left anterolateral aspect of the gestational sac. at 1551 Reported and signed by: Bruna Aguilar MD CC: Rajesh Leavitt MD; Ibrahima Peñaloza III, MD Technologist: Jane Bundy RDMS Probe: [id number] Trnscrbd D/ (1551) GCD.CPS Orig Print D/T: S: 07/04/2022 (1552) [facility] NAME: DEYSI ALVAREZ Radiology Department PHYS: THEA LeavittRajesh [address] : 1995 AGE: 27 SEX: F [place] [address] LOC: BonnieERS PHONE #: [phone] EXAM DATE: 07/04/2022 STATUS: REG ER FAX #: [phone] RAD NO: Page 2 Signed Report Patient Name: DEYSI ALVAREZ Unit No: [id number] EXAMS: CPT CODE: [id number] US PREG UT TRANSVAGINAL 23020 (Continued) [facility] NAME: DEYSI ALVAREZ Radiology Department PHYS: THEA LeavittRajesh [address] : 1995 AGE: 27 SEX: F [place] [address] LOC: BonnieERSPHONE #: [phone] EXAM DATE: 07/04/2022 STATUS: REG ER FAX #: [phone] RAD NO: Page 3 Signed Report- DUP AB/PEL/SC/QIY1622-47-09 00:00:00 [facility] : 1995 Sex: F Patient Name: DEYSI ALVAREZ Unit No: [id number] EXAMS: CPT CODE: [id number] DUP A B/PEL/SC/LTD 22105 PROCEDURE INFORMATION: Exam: US First Trimester (Transabdominal), [...] No relevant prior studies available. FINDINGS: Gestation: Yolksac measures 4.3 mm. Embryonic/ heart rate: 157 bpm Extra-embryonic membranes/Placenta: 3.2 x 3.5 x 0.8 cm subchorionic hemorrhage along the left anterolateral aspect of the gestational sac. 6.5x 1.1 x 3.3 cm retroplacental hemorrhage along the lower uterine segment. Amniotic fluid: Amniotic fluid and extra-amniotic fluid s normal for gestational age. BIOMETRY: Gestational age (AUA): 13 w 6d Estimated due date (AUA): 01/03/2023 Mean sac diameter: 7.2 cm. EGA (MSD) is 13 w 6 d [place]-Rump nichole gth: 77.7 mm. EGA (CRL) is 13 w [...] space: No intraperitoneal free fluid. IMPRESSION: [facility] NAME: DEYSI ALVAREZ Radiology Department PHYS: Rajesh Olea [address] : 1995 AGE: 27 SEX: F [place] [address] LOC: BonnieERS PHONE #: [phone] EXAM DATE: 07/04/2022 STATUS: REG ER FAX #: RAD NO: Page 1 Signed Report (CONTINUED) Patient Name: DEYSI ALVAREZ Unit No: [id number] EXAMS: CPT CODE: [id number] DUP AB/PEL/SC/LTD [id number] (Continued) 1. Single live intrauterinegestation corresponding to [...] Orig Print D/T: S: 07/04/2022 (1551) [facility] NAME: DEYSI ALVAREZ Radiology Department PHYS: Rajesh Watson [address] : 1995 AGE: 27 SEX: F [place] [address] LOC: [facility] PHONE #: [phone] EXAM DATE: 07/04/2022 STATUS: REG ER FAX #: [phone] RAD NO: Page 2 Signed Report Patient Name: DEYSI ALVAREZ Unit No: [id number] EXAMS: CPT CODE: [id number] DUP AB/PEL/SC/LTD [id number] (Continued) [facility] NAME: DEYSI ALVAREZ Radiology Department PHYS: Rajesh Olea [address] : 1995 AGE: 27 SEX: F [place], [place] [address] LOC: [facility] PHONE #: [phone] EXAM DATE: 07/04/2022 STATUS: REG ER FAX #: [phone] RAD NO: Page 3 Signed Report - US PREG EVAL 1ST [id number] 00:00:00 [facility] : 1995 Sex: F Patient Name: DEYSI ALVAREZ Unit No: [id number] EXAMS: CPT CODE: [id number] US PREG EVAL 1ST TRIMTR 86226 PROCEDURE INFORMATION: Exam: US First Trimester (Transabdominal), (Transvaginal), and US Duplex Artery or Vein (Ovaries) Limited Exam date and time: 07/04/2022 1:59 PM Age: 27 years old Clinical indication: Abdominal or pelvic symptoms: Cramping/spotting;Lmp or gestational age (in weeks): 13; ; Prior surgery; Surgery date: 1-6 months; Surgery type: D c; Additional info: 13 weeks pelvic pain LABS AND CLINICAL REPORTS: Gestational age (Established): 13 w 3 d Estimated due date (Established): 01/06/2023 TECHNIQUE: Imaging protocol: Real-time transabdominal and transvaginal obstetrical ultrasound of the maternal pelvis and a first trim abraham , less than 14 weeks 0 days, with image documentation. Transvaginal imaging was usedfor better evaluation of the endometrium, adnexa, and/or [...] mm. Embryonic/ heart rate: 157 bpm Extra-embryonic membranes/Placenta:3.2 x 3.5 x 0.8 cm subchorionic hemorrhage along the left anterolateral aspect of the gestational sac. 6.5 x 1.1 x 3.3 cm retroplacental hemorrhage along the lower uterine segment. Amniotic fluid: Amniotic fluid and extra-amniotic fluid s normal for gestational age. BIOMETRY: Gestational age (AUA):13 w 6 d Estimated due date (AUA): 01/03/2023 Mean sac diameter: 7.2 cm. EGA (MSD) is 13 w 6 d [place]-Rump length: 77.7 mm. EGA (CRL) is 13 w 6 d MATERNAL: Uterus: Uterus measures 16.3 cm x 12 cm x 9.3cm. Cervix: Cervical length measures 3.4 cm and is closed. Right ovary/adnexa: Right ovary measures1.9 cm x 1.4 cm x 1.7 cm. Right ovarian volume is 2.3 CM3. Left ovary/adnexa: Left ovary measures 3.2 cm x 2.2 cm x 1.1 cm. Left ovarian volume is 3.8 CM3. Intraperitoneal space: No intraperitoneal free fluid. IMPRESSION: [facility] NAME: DEYSI ALVAREZ Radiology Departm ent PHYS: Rajesh Olea [address] : 1995 AGE: 27 SEX: F [place], [place] [address] LOC: DEA PHONE #: [phone] EXAM DATE: 07/04/2022 STATUS: REG ER FAX #: [phone] RAD NO: Page 1 Signed Report (CONTINUED) Patient Name: DEYSI ALVAREZ Unit No: [id number] EXAMS: CPT CODE: [id number] US PREG EVAL 1ST TRIMTR 35173 (Continued) 1. Single live intrauterine gestation corresponding to 13 weeks and 6 days by crown-rump length. 2. heartactivity of 157 the the bpm. 3. Low-lying placenta with 6.5 x 1.1 x 3.3 cm retroplacental hemorrhage along the lower uterine segment. 3.2 x 3.5 x 0.8 cm subchorionic hemorrhage along the left anterolateral aspect of the gestational sac. at 1551 Reported and signed by: Bruna Aguilar MD CC: Rajesh Leavitt MD; Ibrahima Najera MD Technologist: Jane Bundy RDMS Probe: Trnscrbd D/ (1551) GCD.CPS Orig Print D/T: S: 07/04/2022 (1551) [facility] NAME: DEYSI ALVRAEZ Radiology Department PHYS: Rajesh Olea [address] : 1995 AGE: 27 SEX: F [place] [id number] LOC: DEA PHONE #: [phone] EXAM DATE: 07/04/2022 STATUS: REG ER FAX #: [phone] RAD NO: Page 2 Signed Report Patient Name: DEYSI ALVAREZ Unit No: [id number] EXAMS: CPT CODE: [id number] US PREG EVAL 1ST TRIMTR 41507 (Continued) [facility] NAME: DEYSI ALVAREZ Radiology Department PHYS: Rajesh Olea [address] : 1995 AGE: 27 SEX: F [place], [place] [address] LOC: DEA PHONE #: [phone] EXAM DATE: 07/04/2022 STATUS: MARYAN WONG FAX #: [phone] RAD NO: Page 3 Signed OjbymxDKVBZYMO0537-40-20 14:46:00* Test Item Value Reference Range Interpretation Comme nts SURGICAL (test code = SR) -----RUN DATE: 03/03/22 [facility] PAGE 1 RUN TIME: 1446 Specimen Inquiry RUN USER: INTERFACE -----PATIENT: DEYSI ALVAREZ LOC: REYNA U #: [id number] AGE/SX: 26/F ROOM: RE02/27/22MARYAN DR: Ibrahima Peñaloza III, MD : [birth year] BED: DIS: STATUS: REG REF TLOC: ----- SPEC #: [id number] RECD: 09/ STATUS: SARAHI IRVING #: [id number] RONI: 02/27/22 [facility] [address]: Ibrahima Peñaloza III, MD ENTERED: 02/27/22 SP TYPE: SURGICAL OTHR DR: ORDERED: ANATOMIC SPEC, SPEC TRACK, [id number] PROCEDURES: 55047 (02/27/22) TISSUES: A. PRODUCTS OF CONCEPTION - [...] 4 cassettes A1-A4.02/27/22 Technical component performed at [employer],[place] [address] , [place] [address] Unless gross only, the diagnosis is based upon microscopic examination.Immunohistochemis try: This test was developed and its performance [...] 1026A, IN FORMALIN 1026, MISSED AB 002.1. Signed SIGNATURE ON FILE Rush Bess 03/03/22 1446 ----- END OF REPORT POCT URINALYSIS W/O SPECIFIC [id number] 19:35:00* Test Item Value Reference Range Interpretation [...] = 3257) n/a Negative - Negati ve [facility] [id number] 19:34:00* Test Item Value Reference Range Interpretation Comme nts POCT PREG (test code = 1605) Positive On board controls acceptable with C Line (test code = 3574) Yes POCT PREG LOT # (test code = 3575) POCT PREG TEST DATE ( test code = 3576) [facility] QUAL (KIT)2019-07-15 04:00:00* Test Item Value Reference Range Interpretation Comme nts HCGQUAL (test code = HCGQUAL) NEGATIVE NEGATIVE URINE: NEGATIVE = < 20 mIU/ML; POSITIVE= >/= 20 mIU/ML SERUM: NEGATIVE = < 10 mIU/ML; POSITIVE= >/= 10 mIU/ML SOURCE (test code = SOURCE) URINE HCG INTERNAL POSITIVE CNTRL (test code = HCGIPC) PASS PASS HCG LOT # (test code = UHCGLOT) [id number] HCG EXPIRATION DATE (test code = UHCGEXP) 10-16 [id number] 03:58:00* Test Item Value Reference Range Interpretation [...] = BACTERIA) MODERATE NONE Urinalysis specimen collection [id number] 16:35:00* Test Item Value Reference Range Interpretation Comme nts Urine Source (test code = 42482-1) URINE [facility] HealthColor of Urine by [id number] 16:35:00* Test Item Value Reference Range Interpretation Comme nts Urine Color (test code = 46871-1) Yellow Yel-Diane * [facility] HealthUrine clarity ejblahrtcgemm4959-73-98 16:35:00* Test Item Value Reference Range Interpretation Comme nts Urine Appearance (test code = 02306-3) Clear Clear * [facility] HealthUrine pH measurement by automated test [id number] 16:35:00* Test Item Value Reference Range Interpretation Comme nts Urine pH (test code = 71076-8) 5.0 5.0-8.0 [facility] HealthSpecific gravity of Urine by Automated test fzltu0196-22-43 16:35:00* Test Item Value Reference Range Interpretation Comme nts Urine Specific Kirk (test code = 13789-7) 1.029 1.005-1.030 [facility] HealthUrine protein measurement by automated test strip (mass/volume) 2019-06-12 16:35:00* Test Item Value Reference Range Interpretation Comme nts Urine Protein (test code = 71743-1) 10 mg/dL Negative * [facility] HealthUrine glucose measurement by automated test strip (mass/volume) 2019-06-12 16:35:00* Test Item Value Reference Range Interpretation Comme nts Urine Glucose (UA) (test cod e = 37348-0) Negative mg/dL Negative * [facility] HealthUrine ketones measurement by automated test strip (mass/volume) 2019-06-12 16:35:00* Test Item Value Reference Range Interpretation Comme nts Urine Ketones (test code = 78552-9) Trace mg/dL Negative * [facility] HealthUrine erythrocytes count by automated test strip (number/volume) 2019-06-12 16:35:00* Test Item Value Reference Range Interpretation Comme nts Urine Occult Blood (test cod e = 33549-3) Negative Negative * [facility] HealthUrine nitrite detection by automated test [id number] 16:35:00* Test Item Value Reference Range Interpretation Comme nts Urine Nitrite (test code = 66233-8) Negative Negative [facility] HealthUrine total bilirubin measurement by automated test strip (mass/volume)2019-06-12 16:35:00* Test Item Value Reference Range Interpretation Comme nts Urine Bilirubin (test code = 83734-7) Negative mg/dL Negative [facility] HealthUrine urobilinogen measurement by automated test strip (mass/volume)2019-06-12 16:35:00* Test Item Value Reference Range Interpretation Comme nts Urine Urobilinogen (test cod e = 84884-1) Negative mg/dL 0.0-1.0 [facility] HealthUrine leukocytes count by automated test strip (number/volume) 2019-06-12 16:35:00* Test Item Value Reference Range Interpretation Comme nts Urine Leukocyte Esterase (test code = 00391-5) Negative {Darcie}/uL Negative [facility] HealthMicroscopic examination of pitkp7085-35-94 16:35:00* Test Item Value Reference Range Interpretation Comme nts Microscopic Urinalysis (T) ( test code = 58210-2) ----- [facility] HealthUrine sediment erythrocyte count by microscopy (number/high power field)2019-06-12 16:35:00* Test Item Value Reference Range Interpretation Comme nts Urine RBC (test code = 58453-7) 0-2 /[HPF] 0-2 [facility] HealthUrine sediment leukocyte [...] Comme nts Urine Crystals (test code = 67459-4) None Seen /[HPF] None * [facility] HealthUrine [...] HealthYeast detection in urine sediment by light bbnajghxjj1845-45-69 16:35:00* Test Item Value Reference Range Interpretation Comme nts Urine Yeast (test code = 23260-5) None Seen /[HPF] None [facility] HealthService comment 16:35:00* Test Item Value Reference Range Interpretation Comme nts Urinalysis Comment (test code = 8262-8) * See_Comment [Automated Mindflasha ge] The system which generated this result [...] Test Item Value Reference Range Interpretation Comme [facility] Mean Corpuscular Volume (chavez t code = 787-2) 89 fL 80-94 [facility] HealthAutomated erythrocyte mean corpuscular hemoglobin (mass per erythrocyte)2019-06-12 16:25:00* Test Item Value Reference Range Interpretation Comme [facility] Mean Corpuscular Hemoglobin (test code = 785-6) 28.3 pg 27.0-33.0 [facility] HealthAutomated erythrocyte mean corpuscular hemoglobin concentration measurement (mass/bie1502-98-25 16:25:00* Test Item Value Reference Range Interpretation Comme [facility] Mean Corpuscular Hemoglobin Concent (test code = 786-4) 31.6 g/dL 33.0-37.0 [facility] HealthAutomated erythrocyte distribution width hxkpv5929-28-61 16:25:00 * Test Item Value Reference Range Interpretation Comme nts Red Cell Distribution Width (test code = 788-0) 12.3 % 10.7-14.5 [facility] HealthAutomated blood platelet count (count/volume)2019-06-12 16:25:00 * Test Item Value Reference Range Interpretation Comme nts Platelet Count (test code = 777-3) 295 10*3/uL 150-450 [facility] HealthAutomated blood platelet mean volume ewsvqrjsdwa2764-96-48 16:25:00* Test Item Value Reference Range Interpretation Comme nts Mean Platelet Volume (test c ode = 20403-9) 11.0 5.7-10.7 [facility] comment [id number] 16:25:00* Test Item Value Reference Range Interpretation Comme nts Manual Differential (test co de = 8265-1) ----- [facility] HealthManual blood segmented neutrophils/100 fvqcjtcbbt8136-94-85 16:25:00* Test Item Value Reference Range Interpretation Comme nts Neutrophils % (Manual) (test code = 769-0) 47 % 42-75 [facility] HealthManual blood band neutrophils form/100 ggkhexpkxt7865-85-88 16:25:00* Test Item Value Reference Range Interpretation Comme nts Band Neutrophils % (Manual) (test code = 764-1) 4 % 5-11 [facility] HealthManual blood lymphocytes/100 csvjmlgwgh3496-91-51 16:25:00* Test Item Value Reference Range Interpretation Comme nts Lymphocytes % (Manual) (test code = 737-7) 43 % 21-51 [facility] HealthManual blood monocytes/100 vppleuvcpq1205-92-30 16:25:00* Test Item Value Reference Range Interpretation Comme nts Monocytes % (Manual) (test c ode = 744-3) 4 % 1-9 [facility] HealthManual blood eosinophil count as percentage of total leukocytes 2019-06-12 16:25:00* Test Item Value Reference Range Interpretation Comme nts Eosinophils % (Manual) (test code = 714-6) 1 % 0-7 [facility] HealthManual blood basophils/100 oxzyuhacxa2571-77-66 16:25:00* Test Item Value Reference Range Interpretation Comme nts Basophils % (Manual) (test c ode = 707-0) 1 % 0-2 [facility] HealthBlood platelet detection by light iohqwiabsi3228-86-36 16:25:00* Test Item Value Reference Range Interpretation Comme nts Platelet Estimate (test code = 9317-9) Adequate [facility] HealthBlood erythrocyte morphology finding pdrkaqwkwfdomb0871-75-41 16:25:00* Test Item Value Reference Range Interpretation [...] Carbon Dioxide Level (test c ode = 2027-9) 23 mmol/L 22-29 [facility] HealthSerum or plasma anion gap determination (moles/volume)2019-06-12 16:25:00* Test Item Value Reference Range Interpretation Comme nts Anion Gap (test code = 44112-4) 14 8-18 [facility] HealthSerum or plasma urea nitrogen measurement (mass/volume)2019-06-12 16:25:00* Test Item Value Reference Range Interpretation Comme nts Blood Urea Nitrogen (test co de = 3094-0) 10 mg/dL 7-19 [facility] HealthSerum or plasma creatinine measurement (mass/volume)2019-06-12 16:25:00* Test Item Value Reference Range Interpretation Comme nts Creatinine (test code = 2160-0) 0.7 mg/dL 0.6-1.1 [facility]ENTERBUS HealthGFR estimate [id number] 16:25:00* Test Item Value Reference Range Interpretation Comme nts Estimat Glomerular Filtratio n Rate (test code = 03000-5) 111 90-142 [facility] HealthSerum or plasma glucose measurement (mass/volume)2019-06-12 16:25:00* Test Item Value Reference Range Interpretation Comme nts Glucose Level (test code = 2345-7) 127 mg/dL 60-100 [facility] HealthSerum or plasma calcium measurement (mass/volume)2019-06-12 16:25:00* Test Item Value Reference Range Interpretation Comme nts Calcium Level (test code = 06106-2) 9.5 mg/dL 8.4-10.2 [facility] HealthSerum or plasma total bilirubin measurement (mass/volume) 2019-06-12 16:25:00* Test Item Value Reference Range Interpretation Comme nts Total Bilirubin (test code = 1975-2) 0.5 mg/dL 0.2-1.2 [facility] HealthSerum or plasma aspartate aminotransferase measurement (enzymatic activity/volume)2019-06-12 16:25:00* Test Item Value Reference Range Interpretation Comme nts Aspartate Amino Transf (AST/ SGOT) (test code = 1920-8) 87 U/L 5-34 [facility] HealthSerum or plasma alanine aminotransferase measurement [...] c ode = 6768-6) 78 U/L 40-150 [facility] HealthSerum or plasma lipase measurement (enzymatic activity/volume) 2019-06-12 16:25:00* Test Item Value Reference Range Interpretation Comme nts Lipase (test code = 3040-3) 21 U/L 8-78 [facility] 1 VIEW [id number] 07:15:[address] [address]WPBFYFTMTB IMAGING REPORTPa tient Name: DEYSI ALVAREZ BDate of Service: 73-31-0973Spd: 23 Sex: F Order #: 1000 [facility] 1995 [facility] Number: [id number] Record Number: [id number] Hospital Number: [id number] Physician: GABBY THOMASOrdering Physician: JOAQUIN CODY ONE VIEW 12/25/2018HISTORY: Left chest painCOMPARISON: NoneCardiac, hilar, and mediastinal structures are normal. Lungs arewell-aerated and clear. No effusion or pneumothorax. No acute bony or softtissue abnormalities are identified.IMPRESSION:Clear chest.The study was performed on an emergent basis and preliminary report faxedto the Emergency Department by the [facility] service nearthe time of the exam.Electronically Signed By: Arturo Moore M.D., 12/25/2018 7:13 AMLegally authenticated by JOY FRANCO 6698-90-2789:13:21XSDL9159-89-73 02:24:00* Test Item Value Reference Range Interpretation Comme nts %CKMB (test code = %MB) TNP % UNABLE TO CALCULATE RESULTS DUE TO CKMB <0.22 NG/ML. CKMB (test code = CKMB) <0.22 NG/ML 0.22-2.4 CK (test code = CK) 55 U/L 30-135 CKINTERP (test code = CKINTERP) NEGATIVE Negative TROPONIN I - [id number] 02:23:00* Test Item Value Reference Range Interpretation Comme nts TROP-I (test code = TROP-I) <0.012 ng/ml 0.012-0.033 INTERPRETI VE DATA A TROPONIN OF LESS THAN 0.034 NG/ML IS CONSIDERED NEGATIVE A TROPONIN OF 0.034 - 0.119 NG/ML IS CONSIDERED GRAYZONE A TROPONIN =/> 0.120 NG/ML IS CONSIDERED POSITIVE [id number] 02:17:00* Test Item Value Reference Range Interpretation Comme nts LIPASE (test code = LIPA) 84 U/L 23-300 [id number] 02:17:00* Test Item Value Reference Range Interpretation Comme nts SODIUM (test code = NA) 142 MMOL/L 137-145 K+ (test code = KSERUM) 3.8 MMOL/L 3.5-5.1 PLEASE NOTE NEW REFERENCE RANGE(S) IN EFFECT EFFECTIVE 01/30/2010 - NEW ANALYZER ([employer] 5600) CHLORIDE (test code = CL) 105 MMOL/L 98-107 CO2 (test code = CO2) 27 MMOL/L 22-30 BUN (test code = BUN) 9 MG/DL 7-17 CREA (test code = CREA) 0.5 MG/DL 0.7-1.2 L GLUCOSE (test code = GLUCOSE) 142 MG/DL 70-99 H Fasting glucos e normal <100 MG/DL- [employer] recommendation CALCIUM (test code = [...] of >90 mL/min/1.73m2 is considered normal. D-DIMER, RTLTNGCUQYOI2159-11-33 02:14:00* Test Item Value Reference Range Interpretation [...] HCG LOT # (test code = UHCGLOT) [id number] HCG EXPIRATION DATE (test code = UHCGEXP) 05-27-20 [id number] 02:01:00* Test Item Value Reference Range Interpretation [...] 1.000-1.025 UAMICRO (test code = UAMICRO) NO [id number] 01:50:00* Test Item Value Reference Range Interpretation [...] code = NEUT) 4.2 K/UL 1.2-7.2 PATHOLOGY [id number] 08:19:00TISSUE CONSULTATION REPORTBAPTMETHODIST HOSPITAL ATASCOSADEPARTMENT OF PATHOLOGYP.O. [address], [place] [id number] [place] [facility] RO[facility]AS M.D.ROBERT L. HUTTON, M.D.CHARLES E. BURNS, M.D. ____Patient: DEYSI ALVAREZ Johnson 1995 23 FRoom:Hosp#: [id number] Ordering Physician: CAROLYN VALLE Rec.:08/31/2018Date of Proc.: 08/31/2018Lab No.: [id number] FINAL ANATOMIC DIAGNOSIS:STOMACH, BIOPSY:- CHRONIC INACTIVE GASTRITIS [...] one block wraps.PATHOLOGIST: Mane Ledesma Electronically Signed: 09/01/20183787ZKS0191-55-00 07:46:00* Test Item Value Reference Range Interpretation Comme nts SODIUM (test code = NA) 142 MMOL/L 137-145 K+ (test code = KSERUM) 3.4 MMOL/L 3.5-5.1 L PLEASE NOTE NEW REFERENCE RANGE(S) IN EFFECT EFFECTIVE 01/30/2010 - NEW ANALYZER ([employer] 5600) CHLORIDE (test code = CL) 105 MMOL/L 98-107 CO2 (test code = CO2) 26 MMOL/L 22-30 BUN (test code = BUN) 6 MG/DL 7-17 L CREA (test code = CREA) 0.6 MG/DL 0.7-1.2 L GLUCOSE (test code = GLUCOSE) 87 MG/DL 70-99 Fasting glucos e normal <100 MG/DL- [employer] recommendation CALCIUM (test code = [...] GFR of >90 mL/min/1.73m2 is considered normal. [id number] 07:19:00* Test Item Value Reference Range Interpretation [...] = NEUT) 4.6 K/UL 1.2-7.2 ACUTE HEPATITIS [id number] 03:34:00* Test Item Value Reference Range Interpretation [...] be sent to reference lab for confirmation. [id number] 17:52:00* Test Item Value Reference Range Interpretation Comme nts SODIUM (test code = NA) 141 MMOL/L 137-145 K+ (test code = KSERUM) 4.0 MMOL/L 3.5-5.1 PLEASE NOTE NEW REFERENCE RANGE(S) IN EFFECT EFFECTIVE 01/30/2010 - NEW ANALYZER ([email or web address] 5600) CHLORIDE (test code = CL) 103 MMOL/L 98-107 CO2 (test code = CO2) 29 MMOL/L 22-30 BUN (test code = BUN) 7 MG/DL 7-17 CREA (test code = CREA) 0.5 MG/DL 0.7-1.2 L GLUCOSE (test code = GLUCOSE) 120 MG/DL 70-99 H Fasting glucos e normal <100 MG/DL- [employer] recommendation CALCIUM (test code = [...] GFR of >90 mL/min/1.73m2 is considered normal. [id number] 17:52:00* Test Item Value Reference Range Interpretation Comme nts LIPASE (test code = LIPA) 65 U/L 23-300 [id number] 17:33:00* Test Item Value Reference Range Interpretation [...] = NEUT) 6.1 K/UL 1.2-7.2 CT ABDOMEN/PELVIS [id number] 07:30:[address] [id number] IMAGING REPORTPatient Name: DEYSI ALVAREZ BDate of Service: 16-47-0098Mze: 23 Sex: F Order #: 600 Room: [facility]:1995 X-Ray Number: [id number] Record Number: [id number] Hospital Number: [id number] Physician: KIERA DELA CRUZ Physician: FRANK ASH [...] 7:28 AMLegally authenticated by TORRIE CARRION 2018-08-30 07:28:28GKVHNCDCWI7108-30-62 21:58:00* Test Item Value Reference Range Interpretation [...] HCG LOT # (test code = UHCGLOT) [id number] HCG EXPIRATION DATE (test code = UHCGEXP) 07-20 [id number] 19:28:00* Test Item Value Reference Range Interpretation Comme nts LIPASE (test code = LIPA) 48 U/L 23-300 [id number] 19:28:00* Test Item Value Reference Range Interpretation Comme nts SODIUM (test code = NA) 140 MMOL/L 137-145 K+ (test code = KSERUM) 4.0 MMOL/L 3.5-5.1 PLEASE NOTE NEW REFERENCE RANGE(S) IN EFFECT EFFECTIVE 01/30/2010 - NEW ANALYZER ([employer] 5600) CHLORIDE (test code = CL) 102 MMOL/L 98-107 CO2 (test code = CO2) 27 MMOL/L 22-30 BUN (test code = BUN) 10 MG/DL 7-17 CREA (test code = CREA) 0.6 MG/DL 0.7-1.2 L GLUCOSE (test code = GLUCOSE) 84 MG/DL 70-99 Fasting glucos e normal <100 MG/DL- [employer] recommendation CALCIUM (test code = [...] GFR of >90 mL/min/1.73m2 is considered normal. [id number] 19:21:00* Test Item Value Reference Range Interpretation [...] = NEUT) 8.3 K/UL 1.2-7.2 H PATHOLOGY [id number] 09:33:00TISSUE CONSULTATION REPORTBAPTMETHODIST HOSPITAL ATASCOSADEPARTMENT OF PATHOLOGYP.O. [address] [place] [address] [facility] M.D.ROBERT L. HUTTON, M.D.CHARLES E. BURNS, M.D. ____Patient: YANETHKRISTALelia Ornelas 1995 23 FRoom:Hosp#: [id number] Ordering Physician: JUAN MERAZ Rec.: 08/26/2018Date of Proc.: 08/25/2018Lab No.: [id number] PRE-OPERATIVE DIAGNOSIS:Chronic cholecystitisFINAL ANATOMIC DIAGNOSIS:GALLBLADDER, CHOLECYSTECTOMY: CHRONIC [...] cassette.PATHOLOGIST: Roberto Genao Electronically Signed: 08/29/2018ABDOMEN 2 [id number] 07:15:[address]IAGNOSTIC IMAGING REPORTPatient Name: DEYSI ALVAREZ BDate of Service: 13-91-6387Qcz: 23 Sex: F Order #: 600 Room: [facility]:1995 X-Ray Number: [id number] Record Number: [id number] Hospital Number: [id number] Physician: Marbella THOMAS Physician: Radha THOMAS 2 [...] HCG LOT # (test code = UHCGLOT) [id number] HCG EXPIRATION DATE (test code = UHCGEXP) 01-14 [id number] 05:07:00* Test Item Value Reference Range Interpretation [...] (test code = URMUCOUS) MUCH /LPF NONE [id number] 04:11:00* Test Item Value Reference Range Interpretation [...] NEUT) 4.3 K/UL 1.2-7.2 BMP, BASIC METABOLIC [id number] 04:03:00* Test Item Value Reference Range Interpretation Comme nts SODIUM (test code = NA) 141 MMOL/L 137-145 K+ (test code = KSERUM) 4.1 MMOL/L 3.5-5.1 PLEASE NOTE NEW REFERENCE RANGE(S) IN EFFECT EFFECTIVE 01/30/2010 - NEW ANALYZER ([employer] 56[employer]) CHLORIDE (test code = CL) 111 MMOL/L 98-107 H CO2 (test code = CO2) 22 MMOL/L 22-30 BUN (test code = BUN) 11 MG/DL 7-17 CREA (test code = CREA) 0.5 MG/DL 0.7-1.2 L GLUCOSE (test code = GLUCOSE) 112 MG/DL 70-99 H Fasting glucos e normal <100 MG/DL- [employer] recommendation CALCIUM (test code = CABLOOD) 8.7 MG/DL 8.4-10.2 GFR (test code = GFR) 166 mL/min/1.73m2 A GFR of >90 mL/min/1.73m2 is considered normal. LIVER [id number] 04:03:00* Test Item Value Reference Range Interpretation [...] code = ALT) 428 U/L 13-69 H [id number] 04:03:00* Test Item Value Reference Range Interpretation Comme nts LIPASE (test code = LIPA) 157 U/L 23-300 [id number] 13:45:00* Test Item Value Reference Range Interpretation Comme nts SODIUM (test code = NA) 139 MMOL/L 137-145 K+ (test code = KSERUM) 4.2 MMOL/L 3.5-5.1 PLEASE NOTE NEW REFERENCE RANGE(S) IN EFFECT EFFECTIVE 01/30/2010 - NEW ANALYZER ([email or web address] 5600) CHLORIDE (test code = CL) 105 MMOL/L 98-107 CO2 (test code = CO2) 26 MMOL/L 22-30 BUN (test code = BUN) 8 MG/DL 7-17 CREA (test code = CREA) 0.5 MG/DL 0.7-1.2 L GLUCOSE (test code = GLUCOSE) 105 MG/DL 70-99 H Fasting glucos e normal <100 MG/DL- [employer] recommendation CALCIUM (test code = [...] GFR of >90 mL/min/1.73m2 is considered normal. [id number] 12:43:00* Test Item Value Reference Range Interpretation [...] 9.2 K/UL 1.2-7.2 H US LIMITED ABD [id number] 07:27:[address] [id number] IMAGING REPORTPatient Name: DEYSI ALVAREZ BDate of Service: 33-61-0677Ugz: 23 Sex: F Order #: 600 [facility]1995 X-[facility] Number: [id number] Record Number: [id number] Hospital Number: [id number] Physician: Nate THOMASing Physician: Ladarius THOMAS upper quadrant abdominal ultrasound 08/25/2018History: Abdominal pain and nausea for several weeksComparison CT of 08/20/2018The liver again shows increased echotexture consistent with fattyinfiltration. Prominence of the right liver is at least in part due to aRiedel's lobe. Multiple anechoic structures scattered in the liver measureup to1.9 cm and may be due to cysts. These are not clearly seen on theprior CT which was performed without contrast.Common bile duct diameter is 4 mm.Gallbladder wall is thickened to 1 cm with some surroun ding fluid. Nodefinite calculi.Duplex imaging of main portal vein flow is unremarkable. The aorta and IVCare normal. The pancreas and right kidney are suboptimally visualized dueto bowel gas. Right kidney is measured at 10.9 cm in length.IMPRESSION:Abnormal gallbladder findings suspicious for acute cholecystitis. Nodefinite calculus. These findings are new.Fatty liver with possible hepatic cysts.Again, these structures were notseen on the prior noncontrast CT. Follow-up CT with contrast or MRIpre andpost IV contrast would be more helpful for further evaluation.The study was performed on an emergent basis and preliminary report faxedto the Emergency Department by the [facility] service nearthe time of the exam.Electronically Signed By: Arturo Moore M.D., 08/25/2018 7:25 AMLegally authenticated by JOY FRANCO 2018-08-25 07:25:[id number] 07:14:00* Test Item Value Reference Range Interpretation Comme nts BLOOD TYPE (test code = TYPE) A Rh Negative ANTIBODY SCREEN (test code = SCREEN) NEGATIVE NEGATIVE [id number] 03:58:00* Test Item Value Reference Range Interpretation Comme nts LIPASE (test code = LIPA) 57 U/L 23-300 LIVER [id number] 03:58:00* Test Item Value Reference Range Interpretation [...] (test code = ALT) 35 U/L 13-69 ZRFKIKUELQ0904-82-74 03:52:00* Test Item Value Reference Range Interpretation [...] 1.000-1.025 UAMICRO (test code = UAMICRO) NO [id number] 03:48:00* Test Item Value Reference Range Interpretation [...] code = NEUT) 6.1 K/UL 1.2-7.2 ISTAT [id number] 03:45:00* Test Item Value Reference Range Interpretation Comme [facility] ISTAT HCG (test code = ISHCG) <5.0 IU/L A value of less than or equal to <5 IU/L is considered NEGATIVE. A value between 5 IU/L and 25 IU/L is considered INDETERMINATE. A value of >25 IU/L is considered POSITIVE. ISTAT CHEM [id number] 03:25:00* Test Item Value Reference Range Interpretation [...] code = ISTANGAP) 19 MMOL/L CT ABDOMEN/PELVIS AWFUJSY6697-05-23 07:45:[address] [address]SBUKBFKOEK IMAGING REPORTPatient Name: DEYSI ALVAREZ BDate of Service: 70-76-8565Xfa: 21 Sex: F Order #: [id number] [facility]1995 X-Ray Number: [id number] Record Number: [id number] Hospital Number: [id number] Physician: KYARA HARDINOrdering Physician: RADHA HOLLINS abdomen [...] 7:43 AMLegally authenticated by CHRISTOPH Rodriguez 2018-08-21 07:43:[id number] 22:43:00* Test Item Value Reference Range Interpretation Comme nts LIPASE (test code = LIPA) 65 U/L 23-300 LIVER [id number] 22:43:00* Test Item Value Reference Range Interpretation [...] ALT) 28 U/L 13-69 BMP, BASIC METABOLIC [id number] 22:43:00* Test Item Value Reference Range Interpretation Comme nts SODIUM (test code = NA) 140 MMOL/L 137-145 K+ (test code = KSERUM) 3.9 MMOL/L 3.5-5.1 PLEASE NOTE NEW REFERENCE RANGE(S) IN EFFECT EFFECTIVE 01/30/2010 - NEW ANALYZER ([employer] 5600) CHLORIDE (test code = CL) 109 MMOL/L 98-107 H CO2 (test code = CO2) 23 MMOL/L 22-30 BUN (test code = BUN) 8 MG/DL 7-17 CREA (test code = CREA) 0.4 MG/DL 0.7-1.2 L GLUCOSE (test code = GLUCOSE) 96 MG/DL 70-99 Fasting glucos e normal <100 MG/DL- [employer] recommendation CALCIUM (test code = CABLOOD) 9.3 MG/DL 8.4-10.2 GFR (test code = GFR) 214 mL/min/1.73m2 A GFR of >90 mL/min/1.73m2 is considered normal. [id number] 22:07:00* Test Item Value Reference Range Interpretation [...] HCG LOT # (test code = UHCGLOT) [id number] HCG EXPIRATION DATE (test code = UHCGEXP) 01-26-20 [id number] 22:03:00* Test Item Value Reference Range Interpretation [...] K/UL 1.2-7.2 Notes Date/Time Note Provider Source 2023-10-25 11:30:00 vj0+1tNbO+iBgljW/2aYwHi+HIyH4YE/T0lwuKjA J lgxJPMFmE5RD7aefRBCw61u1671-42-81N91:30:0 0 Images from the original note were not included.Venipuncture collection performed by clean technique on the right anticubitus. Total of 1 attempts were made. Slight pressure and a bandage/dressing were applied to the site(s). The patient experienced no complications. The following specimens were processed according to instructions and sent to [facility] laboratories per lab order on 10/25/2023:LT BLUESST 1REDLAV 1PPTDK GREEN (LiHep)DK GREEN (SodH)GRAYDK BLUE (K2)DK BLUE (S)ACDBlood CultureNIPT/NTDPatient has been identified by and name and was provided with cup, antiseptic towelette, and clean catch instructions. 1 urine specimen(s) sent.Unpreserved 1Urine CultureAptima tubeOther urine 20583-9Qlqqg JljkKQ0415-60-84D22:42:45Nurse NoteTXT1.2.840.119295.1.13.104.2.7.2.7278 79|[id number] for patient ixpa77704-9Brlcx NoteLNNARRATIVEFormatted C-CDA narrative textUT[address] PrsgYhzxumejdQlfwpxgiaXDBI1941942422NZCDU DIYVGTYNOJRRNMWUT1238-10-69O03:42:451.2.8 40.417357.1.72.3.15|1.2.840.436075.1.13.1 04.2.7.2.727879_[id number] [facility] 2023-10-20 15:54:53 ZtGH0eZ5nOeIbFAndWlcyKZLWbgs7oPqf7YNw2jT E QrYAaGbHU7Nxx8OvvNLZRj+1323-19-52J74:54:[address] pennington 10-25-23 11am 86356-9Srsmvknqk encounter BamaCK6684-33-81X98:55:13Telephone encounter NoteTXT1.2.840.328781.1.13.104.2.7.2.7278 79|[id number] for patient zadb83551-5QhiqWFSRHRGYOLNZcdjseakk C-CDA narrative [id number] Gomez [address] [id number] LHUUIIEMVCROBJGYJ3244-27-92I24:55:131.2.8 40.492105.1.72.3.15|1.2.840.107909.1.13.1 04.7.2.727879_[id number] Ivette Castro V [facility] 2023-10-20 09:37:35 TRHzEz0KhjaojWa+m5rlpFj2XIgG0JGEDYkB8PpD j shBHA3vDOy1OdayZc8ezt6+0844-25-43G23:37:3 5 Deysi Alvarez is a 28 year old femalePt calling requesting to schedule an appt due to liver enzymes being elevated provider does not have anything available coming up and no schedule past November. Please call the pt to discuss an appt. Please advise. 79023-1Gceanvfnc encounter SqwiVT0194-36-68W35:38:00Telephone encounter NoteTXT1.2.840.528969.1.13.104.2.7.2.7278 79|[id number] for patient cbcz73762-8CftmHZCLVMDBGQMHbcpxzugw C-CDA narrative hsqv552278069Fmwgmctpmo R Lazard[address] [id number] FWCBJSPVDFIRVHVCL5782-63-04H18:38:001.2.8 40.868678.1.72.3.15|1.2.840.093322.1.13.1 04.2.7.2.727879_[id number] Adeola Garcia [facility] 2023-10-16 17:52:58 VQOODJGNV3NmGHOoAZ16A1Vxkw/GgQLeWulegUru P XF8lix9fBKp6KlZlic5ajjj2274-23-32D94:52:5 8 Patient given discharge instructions on fatigue. No prescriptions. Advised to follow up with pcp. Pt left ER ambulatory, no signs of distress. 14519-7Xjslcdvjk department YrjvGS7187-23-50D95:53:37[facility] NoteTXT1.2.840.699104.1.13.104.2.7.2.7278 79|[id number] for patient egco27347-3IucaPFITSERWYLQUvlduguko C-CDA narrative text[address] StreetDejaFdvdoscbvStpdukekhGOYE0386625080WMSLK FFCLXZAVHHREFOZTY3113-09-46V12:53:371.2.8 40.909097.1.72.3.15|1.2.840.778842.1.13.1 04.2.7.2.727879_[id number] [facility] 2023-10-16 16:01:28 3nxM8sy1hLNUES1sGJWs+d0cMk5qLcpx84GGwU7P J 3JjRIG/yWwL90wanJNDuTRU8021-95-61A79:01:2 8 Missed IV attempt to left AC, blood collected. Pt given sandwich and chocolate pudding. 10300-8Nzgcwqalx department YtzgCR0387-10-94J34:01:52[facility] NoteTXT1.2.840.743260.1.13.104.2.7.2.7278 79|[id number] for patient wjbn98422-8WcljTVOFBOJYVXDMorprpssy C-CDA narrative text[address] SsvxRkwzatmdeLmsytfwleGJPB1303344411MABZT YDUFZCXXMSHLKLCLX9086-57-10D60:01:521.2.8 40.780001.1.72.3.15|1.2.840.578875.1.13.1 04.2.7.2.727879_[id number] [facility] 2023-10-16 15:15:42 K3j8m69ns/XVZehiEQP2NzoyzVpU3vL8ma5De+Kg 4 If25OTBzz9DLYp56Eeiu8018366-53-43K22:15:4 2 Patient states: "I feel super shaky, like I'm going to pass out. I feel like I'm not even awake. It feels very foggy. It's been going on for 2 days"Pmhx: Hypothyroidism, iron deficiency anemia,BGL in triage 77. Reports doing low carb diet over past 2 weeks. Pt given juice. 41761-4Kjmeeoncn department Triage bljjKA4042-46-19G11:23:26[facility] Triage noteTXT1.2.840.774342.1.13.104.2.7.2.7278 79|[id number] for patient fusb70048-0Evxamebla department NoteLNNARRATIVEFormatted C-CDA narrative [id number] M Cruz RNUT[address] WebkVubgyajvgZolcagyugPLLV9975393683TWQVW PQUZTGREFVFPSIDVB6322-09-85N61:23:261.2.8 40.570472.1.72.3.15|1.2.840.489459.1.13.1 04.2.7.2.727879_[id number] Tigist Loyola RN [facility] 2023-10-14 16:37:43 Gtd5NwZf0Yh3JIIxN9RAZujEy8634KZa0zmGPpgi J XhjD5qzaRIjjS+uTpxIvveN8590-65-91N31:37:4 3 Call placed, attempt #3 with no answer. Will await call back, will close encounter. 34507-0Qlcruorln encounter OnrePQ1836-19-42W94:39:15Telephone encounter NoteTXT1.2.840.909536.1.13.104.2.7.2.7278 79|[id number] for patient icrm80196-1LlssCEGZJBJTMCWAcgmildfa C-CDA narrative zzjs149615220Pvwyh Viktor Blanchard RN[address] StreetTXTX[address]5577555USUSG JADMUOKKIMMAEVKTF4387-21-27N72:39:151.2.8 40.782511.1.72.3.15|1.2.840.551308.1.13.1 04.2.7.2.727879_[id number] Lucero Blanchard RN [facility] 2023-10-13 16:39:13 u3FDlDRdfCM42k1LnxQqVOyt5FYYpeyfp+6Pf05r H 8vtoKPz9Z0YfpxR2QZf/UKn1285-13-34F11:39:1 3 Call placed, attempt #2 with no answer. 67438-8Stbvoloox encounter DrvdJF6658-94-62O00:39:30Telephone encounter NoteTXT1.2.840.618250.1.13.104.2.7.2.7278 79|[id number] for patient addm71824-2CsepHPTYNZVQTNPKixyztzch C-CDA narrative textUT[address] BelwIqkobqurcVgbnahmuhPPOC5408322273BWAPS KRVIWTNOKILVTSMHW5942-21-07M08:39:301.2.8 40.679069.1.72.3.15|1.2.840.157067.1.13.1 04.2.7.2.727879_[id number] [facility] 2023-10-13 13:21:53 XMLXTZSau90NiNbiS7JfXLxpvFIJdmkR4ZSPN8v6 B SA4h6oesmhHZSLuAxSPlrzI6297-88-63H32:21:5 3 Images from the original note were not included.Notes:lisinopriL 10 mg tabletSig: Take 1 tablet by mouth in the morning.Disp: Not specified Refills:Start: 4Class: eRXLast ordered: 6 days ago (10/07/2023) by [place] [facility] UnassignedCardiovascular: SAMREEN Inhibitors Vnqxqu3310/13/2023 01:19 PMProtocol Details Valid encounter within last 12 monthsK in normal range and within 360 daysCr in normal range and within 360 daysTo be filled at: [id number] - [place], [place] - [address] [facility] Refilled: I don't see this as being prescribed by our office.Recent VisitsDate Type Provider Dept10/01/23 Office Visit Dago Ibarra NP [facility] Ltzgubls28/11/24 Office Visit Liberty Watson MD [facility] Hgrfolbn94/20/23 Office Visit Liberty Watson MD [facility] Wcgludca52/06/23 Office Visit Liberty Watson MD [facility] Mykpfgal94/15/23 Office Visit Liberty Watson MD [facility] Family MedicineShowing recent visits within past 540 days with a meds authorizing provider and meeting all other requirementsFuture AppointmentsDate Type Provider Dept12/23/23 Appointment Liberty Watson MD [facility] Family MedicineShowing future appointments within next 150 days with a meds authorizing provider and meeting all other requirements 57188-6Ncaqpjtjl encounter PbxcWF9740-57-65X27:32:00Telephone encounter NoteTXT1.2.840.088380.1.13.104.2.7.2.7278 79|[id number] for patient bhpm86466-4EaktTDZRTTSQWFMUzwhrahdo C-CDA narrative yzuq338902522GbyvlwlMary Maldonado MA[address] AtdpRmpjoydgbAdmyxonvvOZFD5363331138GCUMG CSSOSQSAHSOVTZJKJ3265-55-89H09:32:001.2.8 40.707411.1.72.3.15|1.2.840.299689.1.13.1 04.2.7.2.727879_[id number] Mary Maldonado MA [facility] 2023-10-13 13:19:24 dBwdgnEfya7zA8bXkZOzdXp7mCOhq/ZdbnF9LP9W X vxvW2TivvSCnkMeCcTulPJc2616-87-32G89:19:2 4 Copied from [facility] #[id number]. Topic: Clinical - Referral>> Oct 13, 2023 1:16 PM Patient Community Marketing Coordinator wrote:Deysi Alvarez is a 28 year old female pt would like to know where she can go for her Hematology. Pt states [facility] is not accepting pt at this time and the other location the pt was referred to does not accept her insurance. Pt would like to know does she have to go or can it be managed in the clinic.Pt is also asking for a refill of lisinopriL 10 mg tabletIona Ritchie 10/13/23 1:18 PM 46762-4Fbeozcxit encounter IvgoQZ7931-60-41J27:19:56Telephone encounter NoteTXT1.2.840.678395.1.13.104.2.7.2.7278 79|[id number] for patient khcp95110-0DsylBSFDSPBLRCDKustmfrox C-CDA narrative iiem00597836Hoqvpgb A [id number] NORMANFDHXHLADFXSDNOKNE4400-50-94G10:19:561.2.8 40.667911.1.72.3.15|1.2.840.013878.1.13.1 04..7.2.727879_[id number] Iona Bone [facility] 2023-10-12 11:00:47 mOhrOn0gxRQIuIex1fgJijhWN/exxEaWqEUDMlG4 9 u1OpR2fEarB0C9+Ya7ZVP9z5013-55-06X85:00:4 7 Call placed to number listed, no answer. 31594-7Citxrzfzs encounter XtavMT0586-26-06M14:01:22Telephone encounter NoteTXT1.2.840.099967.1.13.104.2.7.2.7278 79|[id number] for patient hneb05945-4JpnyRUDNRCJPECTNoydaxgsk C-CDA narrative text[address]TXTX7755577555USUSG MWTNVYMXSKDBYVBDE7736-87-28B20:01:221.2.8 40.956112.1.72.3.15|1.2.840.558620.1.13.1 04.2.7.2.727879_[id number] [facility] 2023-10-12 10:27:14 cA6/XMRAzR4DlI+iPYdOdYMJARNoIYDxg+HwfTNT y w1vVMCfl1+kF3dbx23h1lFX1058-88-51N39:27:1 4 Deysi Alvarez is a 28 year old femaleMartha with [facility] stating [facility] still need demographics for the patient. Please contact [phone] signed by Eduardo Davison at 10/12/2023 10:30 AM LKD27317-4Npseqykel encounter ZqpxHP5112-58-19I87:30:52Telephone encounter NoteTXT1.2.840.504122.1.13.104.2.7.2.7278 79|[id number] for patient dsrq63198-6LmcbQQQODXLKBLWKvdusbysj C-CDA narrative giqe11339594Pkvnywo Fields[address] CuehJuabtvxikBwlespqzmDMYH2342374312AISDC KKDLKKQYCNUKMBPHC5125-28-78H39:30:521.2.8 40.651452.1.72.3.15|1.2.840.243176.1.13.1 04.2.7.2.727879_[id number] Eduardo Davison [facility] 2023-10-07 16:25:46 KapBTuq0y+KX5cNzeC2hfodPkRqQqGEHMRZuMDHE 1 ELmM6nOyyYrT8AXnJqP7TzZ0355-29-97E95:25:4 6 B12 is a water soluble vitamin . The body is can easily clear it without quick concern for accumulations. Will monitor and recheck it in few months 53145-5Jzhnovdft encounter LhxqXN8822-19-96F39:27:15Telephone encounter NoteTXT1.2.840.843085.1.13.104.2.7.2.7278 79|[id number] for patient wdmj78645-8CqncHWDMKENIZMJKtongzevj C-CDA narrative text[address]GalvestonTXTX7755577555[place] VQUFAKHLPFNUPIXTG4613-98-26H32:27:151.2.8 40.114731.1.72.3.15|1.2.840.245209.1.13.1 04.2.7.2.727879_[id number] [facility] 2023-10-07 15:33:36 jjDXmJhiKuYRJqEI3wK42tT4LIuCmD0/imMs+MfP V AZq5n2hR0dHX5nrqe/Cn+UF6308-71-14K65:33:3 6 Pt with concerns of elevated B-12, states was reading on [employer] could be caused by liver problems. Informed pt I have forwarded her [email or web address] message with this concern and awaiting response as is seeing pts. Informed pt once she responds we will let her know. Pt states has not taken any vitamins to elevate levels. Will forward to provider for review. 58781-4Wdpnkxeyo encounter OtepZY9527-47-80U58:35:37Telephone encounter NoteTXT1.2.840.378656.1.13.104.2.7.2.7278 79|[id number] for patient fini97399-1SbuiCENALXVSDNISwfupgdkh C-CDA narrative alwo487224158Zjwqv Garcia V, RNUT[address]vestonTXTX[address]7555USUSG QZBDCMTAIZCULPAEJ5040-29-68K38:35:371.2.8 40.070291.1.72.3.15|1.2.840.908981.1.13.1 04.2.7.2.727879_[id number] Lucero Blanchard RN [facility] 2023-10-07 14:07:21 jhACERulDDj+xlMX5x1hXg6zof9b3OQeTmQaZp4b 1 f3t0/uun2WKn9F8Z+8JDRs77889-84-58X10:07:2 1 Copied from [facility] #[id number]. Topic: Clinical - Results>> Oct 07, 2023 2:06 PM Patient Community Marketing Coordinator wrote:Pt called requesting to speak with Dr. Plaza in regards to her most recent lab work. She has questions. Please advise. Call back number:[phone] signed by Jessica Beaulieu at 10/07/2023 2:07 PM FOA21355-1Srmduhasm encounter FrkcRY4729-56-88N45:07:32Telephone encounter NoteTXT1.2.840.204568.1.13.104.2.7.2.7278 79|[id number] for patient vecx24865-4YpmgFXJCQNNKDUCUedxcefen C-CDA narrative knak82351598Lgkiyjk R Marroquin[address] EcvcVizxcjddeYzjknlarsJUSL1169271426TVDUK BIYEONZDCKCPSHISG1616-88-65C01:07:321.2.8 40.054353.1.72.3.15|1.2.840.343734.1.13.1 04.2.7.2.727879_[id number] Jessica Beaulieu [facility] 2023-10-07 10:00:00 xlSHr4ES58ebEmzGmQoRAAlVbEJrYlSSR6tW1F8B A sCTVPP1JDnmgI9rGgkGhfxn3253-59-33T43:00:0 0 Images from the original note were not included.Venipuncture collection performed by clean technique on the left anticubitus. Total of 1 attempts were made. Slight pressure and a bandage/dressing were applied to the site(s). The patient experienced no complications. The following specimens were processed according to instructions and sent to [facility] laboratories per lab order on 10/07/2023:LT BLUESST 1REDLAVPPTDK GREEN (LiHep)DK GREEN (SodH)GRAYDK BLUE (K2)DK BLUE (S)ACDBlood CultureNIPT/NTD 11809-8Njwop ElvzUA4147-49-24S69:06:20Nurse NoteTXT1.2.840.105819.1.13.104.2.7.2.7278 79|[id number] for patient ggil01102-2Mufgr NoteLNNARRATIVEFormatted C-CDA narrative [id number] HEZGTYHCKXHYBNQAU4019-94-46A56:06:201.2.8 40.907028.1.72.3.15|1.2.840.859466.1.13.1 04.2.7.2.727879_[id number] [facility] 2023-10-05 15:02:27 j03VmFDTuON5kigCcgjX6Yl/cUPNxD+nWZeH8LnJ u yxxEz1E3CpwVp+59y8nictu3324-99-49K91:02:2 7 Referral faxed. 74051-0Kdobarqdz encounter UpxjTU0808-97-14P93:02:36Telephone encounter NoteTXT1.2.840.995964.1.13.104.2.7.2.7278 79|[id number] for patient voif83255-4NbwsDWHSEOBCCLYNoulekpov C-CDA narrative [id number] JONGOZOCPESKSUASV4502-14-14W88:02:361.2.8 40.626081.1.72.3.15|1.2.840.373177.1.13.1 04.2.7.2.727879_[id number] [facility] 2023-10-05 13:51:25 Xt440SP559DUUcynnhQRyxCsXYiNj6LkAgoSCxS9 o SDyZRSLYguOoZWadGM5d7PJ8591-24-60G69:51:2 5 Deysi Alvarez is a 28 year old female that is requesting a referral for an external hematology clinic due to the [facility] hematology being backed up until January.Cancer Center at [address] [phone] faxfor anemia iron deficiency 45695-2Nayqfanpq encounter LuhuTZ3282-74-32R80:53:21Telephone encounter NoteTXT1.2.840.421255.1.13.104.2.7.2.7278 79|[id number] for patient pkrt97159-7LwkzQSTANVOIFMDYxenlloda C-CDA narrative uggy597309430Nhbp Jrab[address] KjixZvtqpjqdrCwzpqkulyFIFG0264825362ECNXY YCHLGYTACNDXGAOTI8938-12-20C85:53:211.2.8 40.739803.1.72.3.15|1.2.840.010983.1.13.1 04.2.7.2.727879_[id number] Kelli Lopez [facility] 2023-10-04 15:21:26 q+6yng5MxeaKx84fgU3xM2JViUTSXsJC711yfv3e 5 sG1RrOPBRXnBQQ0sbFz/G5P0011-28-73E05:21:2 6 Called patient and discussed labs and referrals. 61273-8Mkfdfpgiw encounter QcdhFJ9398-56-71D56:27:36Telephone encounter NoteTXT1.2.840.330640.1.13.104.2.7.2.7278 79|4494869468RGGvsvxkagn for patient sxee78932-2QzjjNLMSHGORQUKLaikjpyym C-CDA narrative text[id number] BWCARVVEEULITZBOI2094-10-78F70:27:361.2.8 40.393840.1.72.3.15|1.2.840.246508.1.13.1 04.2.7.2.727879_[id number] [facility] 2023-10-04 08:18:24 djk00tJ4Z/RJOvFoPYdoUdJhoFV9RTxTCvZwF2cO S TE0Jwu5srehH4jtmCP7wFJf1186-41-37L92:18:2 4 Forwarding to provider for review of labs and recommendations. 47708-0Oukrlsenc encounter PxmpID9343-67-78P60:19:36Telephone encounter NoteTXT1.2.840.768351.1.13.104.2.7.2.7278 79|[id number] for patient sypf96429-2SqcvWWCYDQLFCPLJujcjshsr C-CDA narrative [id number] Viktor Blanchard RNUT[id number] XYDVVSCLUOBKDQPPA9168-88-85Y79:19:361.2.8 40.651911.1.72.3.15|1.2.840.810657.1.13.1 04.2.7.2.727879_[id number] Lucero Blanchard RN [facility] 2023-10-01 15:15:00 XLoAw9KZCPSna0DQfZkvWxcpWVyA/0MPUMVvPbX7 V Q7trzU8sQZp4ZaQUFftPaYK3648-14-60X11:15:0 0 Images from the original note were not included.Venipuncture collection performed by clean technique on the right anticubitus. Total of 1 attempts were made. Slight pressure and a bandage/dressing were applied to the site(s). The patient experienced no complications. The following specimens were processed according to instructions and sent to [facility] laboratories per lab order on 10/01/2023:LT BLUESST 3REDLAV 1PPTDK GREEN (LiHep)DK GREEN (SodH)GRAYDK BLUE (K2)DK BLUE (S)ACDBlood CultureNIPT/NTD 82377-4Wrpba WttzJA8082-81-18Z42:08:38Nurse NoteTXT1.2.840.488805.1.13.104.2.7.2.7278 79|[id number] for patient xgty24116-7Ziqgd NoteLNNARRATIVEFormatted C-CDA narrative textUT[address] Js[id number] YGXFDTKTWDIBEEXSM4057-27-21Q15:08:381.2.8 40.670093.1.72.3.15|1.2.840.921879.1.13.1 04.2.7.2.727879_[id number] [facility] 2023-09-21 15:45:29 U31khnazJkZlEhKpPPPpNCwCQcx+iCziwNZYFKEo T PuSSGEHFmeiTns7zFLi+XGj1352-93-70D85:45:2 9 Please let patient know that I can increase her Levothyroxine dose from 125 mcg to 137 mcg. I will send her prescription to her local pharmacy. For any further concerns about anemia, she should consult [place] [address]-4Edmecsqhz encounter RycoTJ6797-49-60Y08:53:20Telephone encounter NoteTXT1.2.840.066771.1.13.104.2.7.2.7278 79|[id number] for patient pzfm83931-1YjooYWTIHXMEDNTOopsgpryb C-CDA sundar han[address] StreetGy[id number] MGYYNMTZITDPBTVUO3527-99-07I87:53:201.2.8 40.085105.1.72.3.15|1.2.840.565136.1.13.1 04.2.7.2.727879_[id number] [facility] 2023-09-21 15:40:43 0dxQ2baXIJIe5ZdNeTQj767oPijQDbxqNf+gOoS1 N nqGlucZb7kr37WHPI07xR+96101-06-92Y26:40:4 3 Patient recently seen for follow up on 09/07/23. Will route to provider to review and advise. 89586-0Wijwfjtbe encounter SnvnYK0740-45-76R25:41:46Telephone encounter NoteTXT1.2.840.230542.1.13.104.2.7.2.7278 79|[id number] for patient iorg41568-3PzyyYWEWIWVLSSQRmmdzwpqe C-CDA narrative [id number] D [place] [address] Dm[id number] CYPTDDETGWTAZLIOS6215-69-79L36:41:461.2.8 40.830769.1.72.3.15|1.2.840.790074.1.13.1 04.2.7.2.727879_[id number] Nubia Proctor [facility] 2023-09-14 14:57:13 cGJ2VUMX/WshZ9pGrQn94Itcoda0WLXnlclo0f7J S vFdInhjKxk8g4CX0oiH4arM8549-10-78Z50:57:1 3 Images from the original note were not included.Routed to provider for review. Unable to refill per ambulatory refill guidelines.Notes:DULoxetine 60 mg capsulePossible duplicate: Hover to review recent actions on this medicationSig: Take 1 capsule by mouth in the morning.Disp: Not specified Refills:Start: 09/14/2023lass: eRXNon-formularyLast ordered: 4 months ago (05/12/2023) by [place] [facility] UnassignedNeuropathic Pain Dkvmzy7609/14/2023 12:41 PMProtocol Details Manual Review: Verify no changes in dose in the last 3 monthsValid encounter within last 12 monthsTo be filled at: [id number] - [place], [place] - [address] [employer] & [facility] Refilled: 4Recent VisitsDate Type Provider Dept09/06/23 Office Visit Liberty Watson MD [facility] Family Ktricoxk08/20/23 Office Visit Liberty Watson MD [facility] Family Dglhbetl95/06/23 Office Visit Liberty Watson MD [facility] Family Ssioniik35/15/23 Office Visit Liberty Watson MD [facility] Family MedicineShowing recent visits within past 540 days with a meds authorizing provider and meeting all other requirementsFuture AppointmentsDate Type Provider Dept12/23/23 Appointment Liberty Watson MD [facility] future appointments within next 150 days with a meds authorizing provider and meeting all other requirements 41048-1Ssrcqoudr encounter RnxfTH9754-79-24U92:58:30Telephone encounter NoteTXT1.2.840.405407.1.13.104.2.7.2.7278 79|[id number] for patient pghm09876-6YhytWRMIQQUZERDTrppbkudp C-CDA narrative diys508734651Gbnrmmm R Martinez [address] StreetNokuRvquucuoiZpyaatkhaDJOE9397518026TPGYX FSIORERMKAQGZMCKY5227-35-98X55:58:301.2.8 40.030568.1.72.3.15|1.2.840.645677.1.13.1 04.2.7.2.727879_[id number] Mary Maldonado MA [facility] 2023-09-14 12:41:15 /lzB0HG3orC3Eu+oo4hZulbiPM4/jqRaP6KxyR7j X HIcMhK0xZSm1eFem8R55JIM6347-54-96A01:41:1 5 2nd refill request from pharmacy. 22641-1Qwbynoexa encounter WnxiGM0438-00-90K03:41:55Telephone encounter NoteTXT1.2.840.865054.1.13.104.2.7.2.7278 79|[id number] for patient nqik63843-4IakhAEVSQXKNXTERkgzhjwam C-CDA narrative iuia653232765Whlsglm D [address]GalvestonGal[place]75[place] WWVZHTOYSDGONLIRP4842-72-83K88:41:551.2.8 40.172908.1.72.3.15|1.2.840.968688.1.13.1 04.2.7.2.727879_[id number] Genesis Vergara [facility] 2023-09-09 10:50:40 stt3AGLR7BJU2s42YpGE/mrXz+j/Je8nRRib7u05 / Y3PSAdWbRnPte5KtAHZV81y8248-65-47D80:50:4 0 Images from the original note were not included.Routed to provider for review. Unable to refill per ambulatory refill guidelines.Notes:DULoxetine 60 mg capsuleSig: Take 1 capsule by mouth in the morning.Disp: Not specified Refills:Start: 09/09/2023lass: eRXNon-formularyLast ordered: 4 months ago (05/12/2023) by [place] [facility] UnassignedNeuropathic Pain Qrwmcm4909/09/2023 08:11 AMProtocol Details Manual Review: Verify no changes in dose in the last 3 monthsValid encounter within last 12 monthsTo be filled at: [id number] - [place], [place] - [address] [facility] Refilled: 4Recent VisitsDate Type Provider Dept09/06/23 Office Visit Liberty Watson MD [facility] Family Zniqskzi17/20/23 Office Visit Liberty Watson MD [facility] Mflcujfh82/06/23 Office Visit Liberty Watson MD [facility] Family Bevgopar37/15/23 Office Visit Liberty Watson MD [facility] MedicineShowing recent visits within past 540 days with a meds authorizing provider and meeting all other requirementsFuture AppointmentsDate Type Provider Dept12/23/23 Appointment [facility] within next 150 days with a meds authorizing provider and meeting all other requirements 40519-8Tipmsrzzh encounter MrloJB1264-76-70J77:52:24Telephone encounter NoteTXT1.2.840.928000.1.13.104.2.7.2.7278 79|[id number] for patient yawx24552-8BkpiJANZJENRLSCTarvqvjhx C-CDA narrative lkho555138467Htuiuhg R Martinez [address]PpwzWfcviegopZnwwcibahREJW6075898604IVIGE HWRAPFQVAFLCBZHLX8405-39-70F80:52:241.2.8 40.190843.1.72.3.15|1.2.840.784563.1.13.1 04.2.7.2.727879_[id number] Mary Maldonado MA [facility] 2023-09-09 08:10:19 JI9hV3hk6/e1AHlHoVUnpShYCb16rTZr5BexZOOX 6 0Pec+mjEGQ9g1UsTA9CK6UX3979-56-29G05:10:1 9 Images from the original note were not included. 84620-8Lsipbqqxg encounter RouuKA1245-68-09P38:11:39Telephone encounter NoteTXT1.2.840.861460.1.13.104.2.7.2.7278 79|6320478065UORrlnprzui for patient kjth38149-5ZhzvKCGZQPORDLNRmtnxravq C-CDA narrative dzqm20359658Wjatcxgi M SaenzU[address] Davis StreetTuguHhfnkrzupLyksjfxqlUMXS2018165010BQAIU BHMXWLQGDHCDEKZDE3929-05-69Y46:11:391.2.8 40.715297.1.72.3.15|1.2.840.594554.1.13.1 04.2.7.2.727879_[id number] Suhas Mccarthy [facility] 2023-09-08 18:53:07 oFMor2x7FlPyIm/iBbUY4Nu/PYcUiodAuxystqOE k y3Utht0Z19wwfGw5OE/gdyY5073-33-08E10:53:0 7 Called patient and spoke to her about options [...] of the time, take one tablet daily. 72475-9Mjlslawhk encounter NxdwPD5148-36-68J50:15:02Telephone encounter NoteTXT1.2.840.619741.1.13.104.2.7.2.7278 79|8004845728OQQlkhleumo for patient jtuq60773-7WftpWXXGKIWAAVGYhpwbgggm C-CDA narrative textUT[address] PjqrCrnufmlaqFygdkdxyvTCWP9431013921XSPIB VKUTFTFTEOFZDTMEX9061-78-31V14:15:021.2.8 40.088721.1.72.3.15|1.2.840.923833.1.13.1 04.2.7.2.727879_[id number] [facility] 2023-09-08 15:58:06 HF9vNoxhVyFboSWYLdkrz3W3zRGChltBkqjc5OKN Z deEYOYO8y1A1t42z/1JVskJ3823-85-06H75:58:0 6 Responded to this is [employer] message. 58311-7Atxilfxns encounter IqckNZ0457-88-70Z71:58:37Telephone encounter NoteTXT1.2.840.642873.1.13.104.2.7.2.7278 79|3749182805VHMwdgbvuuv for patient bfkt71075-2UpptFTXTGUGEQRZOofvbfehg C-CDA narrative textUT[address] CicyKqrscxyvtRqywnylbwKEQC6599486333KIMLM RBNVWEHICHAWVUXIX4625-88-71V36:58:371.2.8 40.715320.1.72.3.15|1.2.840.573975.1.13.1 04.2.7.2.727879_[id number] [facility] 2023-09-08 15:45:51 CY/W39KT+K+sqL4/6ciqnv7RI/WSZLiSd5UPdo+Z h tbbdQJva07NFAIjx6aj6Vz87529-45-44I39:45:5 1 Deysi Alvarez is a 28 year old femalePt is calling to speak with provider regarding trying phentermine medication, Pt states, she would like to try since her BP has been under control, Please advise 83291-0Agdjuunny encounter GphpTP5445-33-23J52:49:37Telephone encounter NoteTXT1.2.840.476577.1.13.104.2.7.2.7278 79|[id number] for patient ihgv22138-8UoixDJESFEHZLAZWcnkinxfv C-CDA narrative mycd527931227Wigoct N [address]TXTX7755577555USUSG FGBHBESHINETMTLSK3194-60-79H87:49:371.2.8 40.800508.1.72.3.15|1.2.840.227775.1.13.1 04.2.7.2.727879_[id number] Elvia Davison [facility] 2023-09-08 15:38:33 W9+FiKb60fZ9LGiTDUyNByHiLMaxe8d1STHbG5qK Q XDuZ069xJGo5OHkRm2KP+rj1921-06-11M32:38:3 3 Called patient and left a message about her concern about pancreatitis and how Zepbound is much safer than Phentermine. I will also send her a message through [employer]. 12787-4Zzlflziwb encounter LoyjOP2143-96-14M37:44:43Telephone encounter NoteTXT1.2.840.190331.1.13.104.2.7.2.7278 79|3182348027GQRdagtljtl for patient cvkf85925-6YnxlSUHNZMAKXVQQueyxaxep C-CDA narrative text[address] StreetTXTX7755577555USUSG UUETLNUABUYUHHYQA7961-60-74E66:44:431.2.8 40.715053.1.72.3.15|1.2.840.713687.1.13.1 04.2.7.2.727879_[id number] [facility] 2023-09-08 15:34:15 vmhXe/rn5mK1UikPvXq72pvqWArr51BJAaUmBvvT 3 rKLMkdyFF1l7438bT6eUaHh4856-51-55A43:34:1 5 I responded to this in a [employer] message. 78347-7Dfahdjkfe encounter QltqXA7435-68-40J31:35:15Telephone encounter NoteTXT1.2.840.310822.1.13.104.2.7.2.7278 79|5237242917GYGljtemrlr for patient ntas05208-8KpikTQAAEJPRJPTHnihjcsvv C-CDA narrative textUT[address] MxnrXhsreydedZwnzzvzuvCYNK1059042318YBRJQ HHGNBUGIQHXCJECSW1304-15-11D97:35:151.2.8 40.625572.1.72.3.15|1.2.840.864030.1.13.1 04.2.7.2.727879_[id number] [facility] 2023-09-08 14:59:33 je+PLami/vSSPd92zslyOH7LX462gDYKfsHB45Dle U UuoQpCACaJvXKAJyskZoycP5043-60-89I69:59:3 3 Patient called with concerns about taking Zepbound due to grandmother of pancreatic cancer. I advised her to read about medication on crib attendant and FDA website and note that precautions [...] be prescribed insteadRouting for provider to advise. 44485-5Vqdmbrvvg encounter OrtxRJ6893-56-35F93:09:57Telephone encounter NoteTXT1.2.840.388260.1.13.104.2.7.2.7278 79|8212275120QCTyzuegvbh for patient llbb68951-1IrvlWVGFVKOITOTFwusxxnac C-CDA narrative xowq501939392Ymmc D Jetton [address]TXTX[address]5577555[place]US[place] YIVAEVNDHDMCHWAFL5887-96-03W06:09:571.2.8 40.042112.1.72.3.15|1.2.840.553199.1.13.1 04.2.7.2.727879_[id number] Nubia Proctor [facility] 2023-09-08 14:30:42 I4BtvOoEtFqZBchSbib5qp6bfGGibe8yPmFj3mFd a 4DkziT+nQ7/28wGM4hQbwmC1394-61-91Q87:30:4 2 Deysi Alvarez is a 28 year old female patient calling back has decided not to take Zepbound and is requesting RX for Phentermine instead. Please call [phone] signed by Tosha Foley at 09/08/2023 2:32 PM WXM33819-9Jwafgwims encounter XsyfVP3788-53-70H09:32:16Telephone encounter NoteTXT1.2.840.135659.1.13.104.2.7.2.7278 79|[id number] for patient nfnh91780-6UnbjHZSWAFTNOCPBrnffxmdj C-CDA narrative rngf527756750Gdqlz [address]TXTX7755577555USUS[place] VZJPQVHOUTBPPVLCC7878-66-43U25:32:161.2.8 40.300642.1.72.3.15|1.2.840.297153.1.13.1 04.2.7.2.727879_[id number] Tosha Foley [facility] 2023-09-08 11:24:48 TPrHbWWiUDxg/A2oGyDM1iuA8jsAf9+T05JeZBA7 A VrYnbplwZk+phMeXNi3ZrcN4610-40-69O13:24:4 8 Provided information for patient through message on [employer]. 51343-9Qghoyiayy encounter AoodEM1203-61-01Q75:25:09Telephone encounter NoteTXT1.2.840.862875.1.13.104.2.7.2.7278 79|3899892071CGJvcoiwqrs for patient avpv92093-9YhrxNLHJNCPJDEZWjpovfryr C-CDA narrative wlmr545322950Sxvm D Jet[place] [address] PjlpHuezkpzbsNngxbnkzdAVYU9962478348XYGLD CQDNCRETCFHYJNUOV0514-86-90N21:25:091.2.8 40.107837.1.72.3.15|1.2.840.529953.1.13.1 04.2.7.2.727879_[id number] Nubia Proctor LVN [facility] 2023-09-08 10:06:13 kC5R0Kblf3AjoKMQh5soUceWyUTzpL5i/uEOBesT L vGa+yrF9F/wCW1jqsfwJAGB0588-25-75M88:06:1 3 This was already sent to [facility] outpatient pharmacy by Dr Plaza. Closing encounter 29806-2Btayxtyrs encounter PaywQY7376-62-95K18:06:57Telephone encounter NoteTXT1.2.840.185739.1.13.104.2.7.2.7278 79|2890563877HMBtytijydc for patient glxo61559-5GdmaJMKBIUOSHCNErndeerqt C-CDA narrative zrys034627520Kiuk D [place] [address]TXTX[address]5577555[place] MIQRCAIGGQBMRLTCZ1548-94-08I37:06:571.2.8 40.120017.1.72.3.15|1.2.840.254899.1.13.1 04.2.7.2.727879_[id number] Nubia Proctor [facility] 2023-09-08 09:11:22 JWHPKqSEv7famoVIn+upRDRBmexB9lh6eggeIBBY A 4g66/B9UO4PL/N+ihBTZy336041-91-74L37:11:2 2 Deysi Alvarez is a 28 year old female patient calling to make sure that Zepbound 7.5 mg/0.5 mg is safe for her to take, maternal grandmother with Pancreatic Cancer Please call [phone] signed by Tosha Foley at 09/08/2023 9:13 AM ZZY73660-8Gjkpsncwk encounter NabcQJ7098-60-47Z24:13:02Telephone encounter NoteTXT1.2.840.259554.1.13.104.2.7.2.7278 79|1342939376SNOukqwnrjc for patient opnj40258-8SnrlVGVIVPVOINGDawmcubfn C-CDA narrative mpbw973985825Lcnck [address]TXTX[address]5577555[place]US[place] AGOOORXSJZQXSLYZK0979-66-42P98:13:021.2.8 40.595279.1.72.3.15|1.2.840.996780.1.13.1 04.2.7.2.727879_[id number] Tosha Foley [facility] 2023-09-08 08:54:24 DQ3Uw7EAh7LRE+HEgGvhE+vCb7CL1a5z8P8PLRFb k 8v2mhW3QTToGeBbZDK3mThH2436-90-89K38:54:2 4 Attempted to contact patient. No answer, VM left. Cordiahart message sent.Sagar Byrnes RN 09/08/2023 8:54 AM 70139-0Dmmhsykji encounter QinfWI8209-85-19Z77:59:26Telephone encounter NoteTXT1.2.840.499464.1.13.104.2.7.2.7278 79|9714029051GIEyjdxxhsa for patient rqrp99295-6FvyyVURGZGILXWDGdqynymbv C-CDA narrative oddx212133084Ckgnyfs Collins RN[address] FvceTxvzsjjenCtcdbwmusFEFV9560024314JFXTO BPYGBOBPUTKGGALVB7638-21-17T27:59:261.2.8 40.063401.1.72.3.15|1.2.840.175253.1.13.1 04.2.7.2.727879_[id number] Sagar Brynes RN [facility] 2023-09-07 17:54:54 kY5LyA3sKbXpTw13oNkmfwfju1n6h8v8gXIe+Tanisha G MXKgC6b/RJBhlQFKj8qYtLP4903-57-12J26:54:5 4Addended by: LIBERTY ANSARI on: 09/07/2023 05:54 PMModules accepted: Orders 84903-4Bsiiyaqr PkzbmwuvMU9104-72-60W85:54:54Addendum DocumentTXT1.2.840.645991.1.13.104.2.7.2. 405776|4345408403LRSrzjozofj for patient hqwh00055-9WtfgRAOOJEZLTNHBvpqctptf C-CDA narrative textUT[address] HtydVorykhcawAuqipphvvPORM0662091273BAEPA HVIZDGQMNKBQGGNCD7716-51-53F06:54:541.2.8 40.865748.1.72.3.15|1.2.840.107793.1.13.1 04.2.7.2.727879_[id number] [facility] 2023-09-07 17:54:32 FgjLHpDxgb9aQ9EWxsyh7+8Fp82vqNmCdttOnq2c A jB4EGBuODvGXZbGLCOIxovc0002-30-18E28:54:3 2 1. Class 1 obesity due to excess calories [...] 7.5mg qWeek. Dispense: 4 mL; Refill: 1 30256-5Xmarhzpcg encounter IextPU8857-42-09J65:54:43Telephone encounter NoteTXT1.2.840.474288.1.13.104.2.7.2.7278 79|8906780684WNMghbqpdan for patient rpxr38175-8FdbdXQCZKMIRUNVYjfltwygl C-CDA narrative guille[address]TXTX7755577555[place] CQZAPVEDZWQOKMSNF9262-59-95F17:54:431.2.8 40.630604.1.72.3.15|1.2.840.188482.1.13.1 04.2.7.2.727879_[id number] [facility] 2023-09-07 16:19:08 fcJOBjlZwmUjyzfWejw+ItvyWyNQN6VDtvckSCsD z zWClWhjxDYrl3Up11ANW+3H8414-29-37F16:19:0 8 Patient is wanting to have IUD is currently on control pills want to know if Dr Wall thinks this is good option for her. 71371-3Qdnkicetp encounter KbgoLD3324-89-69L62:20:06Telephone encounter NoteTXT1.2.840.934507.1.13.104.2.7.2.7278 79|0387112678VLSxyzcwobh for patient welh32378-9EtkpZULOLFGFGBJRktonpqcy C-CDA narrative oouk041352830Oshnr Rodriguez[address]TXTX[address]5577555[place] VWZSFPEDEJIETSHVJ6982-37-59T52:20:061.2.8 40.092865.1.72.3.15|1.2.840.771732.1.13.1 04.2.7.2.727879_[id number] Yanci Goss [facility] 2023-09-07 15:56:54 1mG8j7VmBviGzo/GAuPWNKOdV9pOwwOoeIQoa94a 2 kgiOaw3GdxsOfMWRU7ifbRa2256-93-44I24:56:5 4 Deysi Alvarez is a 28 year old femalePatient requesting tirzepatide 5 mg/0.5 mL subcutaneous injection and tirzepatide 2.5 mg/0.5 mL subcutaneous injection be sent [facility] [address] [facility], [place] [facility] [address]Gyusx: [phone] Mguxfpadhsjabv signed by Nicole Armstrong at 09/07/2023 3:59 PM IPA85206-2Ubgixvltv encounter QbipYG6183-60-65K51:59:21Telephone encounter NoteTXT1.2.840.480384.1.13.104.2.7.2.7278 79|1826577925TTBwaunayoo for patient aqbg42154-3AwznDQKMEMBBBWOZaonyjtoi C-CDA narrative mvtb129965051Bmmgkt A Smith[address] AjgtZryifrcggPjdnkmfvkEWMP1842073524ANNGP TMSQRSLWRFOCZNAWD4597-12-88D31:59:211.2.8 40.882364.1.72.3.15|1.2.840.873906.1.13.1 04.2.7.2.727879_[id number] Nicole Armstrong [facility] 2023-09-07 10:37:51 WaeWMj3lmCpFE875Ucr4Qk2OAzL0NbP4/6mYiZdy W hM6cIEOy9ydv66jRRHF9UrG7433-33-30O74:37:5 1 Sofialo,The [employer] was not covered due to using for weight loss and not type 2 diabetes. I did speak with Ms. Alvarez and she would like to try Zepbound. She is aware it is not covered, but would like to use the copay card. If a prescription for Zepbound could please be sent to [facility]. Please let me know if there are any questions or concerns.Thank you 89240-0Hkvzypjki encounter JjjdCS7352-60-95Y07:40:22Telephone encounter NoteTXT1.2.840.892266.1.13.104.2.7.2.7278 79|6650494570WHNiraxftvg for patient nren16621-7FaxmOROEGETABRYQsrmdivol C-CDA narrative uclc272523763Zdmfet Collins[address] NbaiJxmaldpnsStlkgvqwwZHUL4617249760JCALD MDRWYLXDEFIDPAUUL1415-90-63P72:40:221.2.8 40.194652.1.72.3.15|1.2.840.305426.1.13.1 04.2.7.2.727879_[id number] Maria Del Carmen Byrnes [facility] 2023-09-06 16:15:00 uJ+F6WSM4PPZP50d05lQEkX+YNjwNjhnraR+2lqz g w9/u7joxsHKEIhLLdlW7ETA0423-93-52I97:15:0 0 Images from the original note were not included.Venipuncture collection performed by clean technique on the right anticubitus. Total of 1 attempts were made. Slight pressure and a bandage/dressing were applied to the site(s). The patient experienced no complications. The following specimens were processed according to instructions and sent to [facility] laboratories per lab order on 09/06/2023:LT BLUESST 1REDLAVPPTDK GREEN (LiHep)DK GREEN (SodH)GRAYDK BLUE (K2)DK BLUE (S)ACDBlood CultureNIPT/NTD 92989-4Fqpgv OnigSC4033-64-92F30:09:02Nurse NoteTXT1.2.840.118208.1.13.104.2.7.2.7278 79|[id number] for patient sxzg66639-4Jdzub NoteLNNARRATIVEFormatted C-CDA narrative textUT[address] WyauEckmoptyiUosloqwyiJAGT5311233813IFXFG BRPFAYLFKOBCMPLJZ2654-25-01Q16:09:021.2.8 40.751434.1.72.3.15|1.2.840.514739.1.13.1 04.2.7.2.727879_[id number] [facility] 2023-09-06 16:02:08 quokDiaXOw+C/oEbrFmW1pf8nGWxI1r/VuE4wMw9 5 OTisrQWaQce1m7FWrBnnzEy8565-15-52N84:02:0 8 Pt at lab to get labs drawn. No [...] T4 Free orders placed per EMILY plan. 78273-5Jgsknwnxx encounter HqyvKL9925-13-50G71:09:34Telephone encounter NoteTXT1.2.840.363421.1.13.104.2.7.2.7278 79|2271220037RPVxrxzaypj for patient pgnb70598-8MqcmRVMHZJBASAXGvkgmbidp C-CDA narrative [address]TXTX[address]7555[place] XUVNYFFTMLLCXDBCN7444-44-99F66:09:341.2.8 40.387017.1.72.3.15|1.2.840.878019.1.13.1 04.2.7.2.727879_[id number] [facility] 2023-09-06 15:35:10 wTPr4DKi9T0Qa6ulXEJd8f4RROpoAmE/8WzbXtb+ m 4iUOipPpfsxbZW61ZTQlUi02502-54-08Y99:35:1 0 Copied from [facility] #[id number]. Topic: Clinical - Medical Advice>> Sep 06, 2023 3:34 PM Patient Community Marketing Coordinator wrote:Deysi Alvarez is a 28 year old femalePt seen today and busPIRone 7.5 mg tablet was not called in. Please send to Pharmacy. 68738-9Tnsxlfceb encounter IzloJF5209-91-07A25:36:20Telephone encounter NoteTXT1.2.840.623907.1.13.104.2.7.2.7278 79|[id number] for patient lyiv26524-0GofxCSNGFOADGNIByjoxzbtp C-CDA narrative [address]TXTX[address]5577555[place] XUWRVWHAEAFKJMJLX5033-70-97G30:36:201.2.8 40.954188.1.72.3.15|1.2.840.807495.1.13.1 04.2.7.2.727879_[id number] [facility] 2023-08-23 15:00:28 dauOWH4o5eb0zWEeVUP+h2NiFZNCO28lXH3nZJlH p 5K5v6rIrWNoiQdWAoa2qI6I5004-07-45R72:00:2 8 EMILY 05/14/23NOV 09/07/23Per EMILY note:START LT4 125 mcg early in the AM since she reports the 112 mcg is not helping her. 37753-8Ybsohuyeb encounter MsgwMT9497-72-84Y31:01:23Telephone encounter NoteTXT1.2.840.626369.1.13.104.2.7.2.7278 79|[id number] for patient ibll94186-7SqntEXJLABMEYWFCuelsqsgu C-CDA narrative [id number] D [place] [address] Pc[id number] EFEZGURIFXXDZIXQC5050-52-28P45:01:231.2.8 40.029639.1.72.3.15|1.2.840.913670.1.13.1 04.2.7.2.727879_[id number] Nubia Proctor APPLICATION CHEMIST [facility] 2023-02-04 21:53:08 ywCGiiH+xxSIcXGyzD3fcXq7YHseCRQo5xyX2Ewj Q BnrcT1fpTyuWAdws0Iil1PL9093-44-54U59:53:0 8 Notify the [place] [address]-1Djonrkjjf encounter YpazKB5265-47-04H01:54:28Telephone encounter NoteTXT1.2.840.844859.1.13.104.2.7.2.7278 79|[id number] for patient yzfl83191-8IiyfBZECGJGDTX[id number] BXRAGGUWQYVJQGOAP4980-29-96V71:54:281.2.8 40.342718.1.72.3.15|1.2.840.218134.1.13.1 04.2.7.2.727879_[id number] [facility] 2023-02-04 10:44:26 gb/q2UJGkyST7NCAPtGVP1YRFgEGmdyj5cVw2R6 g l6F5M4zq8GbH9FTgFz894vd0861-63-95G92:44:2 6 Duplicate message.FLORENCE SALINAS RN 02/04/2023 10:44 AM 11858-0Zonxgnspy encounter RkvjES7207-27-09I40:44:39Telephone encounter NoteTXT1.2.840.603487.1.13.104.2.7.2.7278 79|[id number] for patient qrzg36818-9CoshCYIGJSZXLO67 [id number] LDYEKNQJNCKUQVFDU8440-61-93V80:44:391.2.8 40.183131.1.72.3.15|1.2.840.468887.1.13.1 04.2.7.2.727879_[id number] [facility] 2022-07-04 12:47:00 Z97057861063y6Mvyfhy6KqONxLojkEIfgE+4PVr 7 MwK2+6XPywqVpitEir/o+tpXlPClaZoQk6L9633-2 07-04T12:47:00 [facility] ([facility])EMERGENCY PROVIDER REPORTREPORT#:[id number] REPORT STATUS: SignedDATE:07/04/22 TIME: 1247 PATIENT: DEYSI ALVAREZ UNIT #: [id number]#: [id number] ROOM/BED:AGE: 27 SEX: F PCP PHYS: Ibrahima [...] Ox 100 07/04 1118 B/P 145/94 07/04 1117 B/P Mean 111 07/04 1117 O2 Delivery Room air 07/04 1117 Temp 36.8 07/04 1117 Pulse 92 07/04 1117 Resp 18 07/04 1117 Last Documented: Result Date Time Pulse Ox 100 07/04 1117 B/P 145/94 07/04 1117 B/P Mean 111 07/04 1118 O2 Delivery [...] % (Auto) (14.5 - 29.7 %) 26.6 [place] % (Auto) (3.6 - 10.2 %) 7.0 Eos % (Auto) (0.0 - 3.0 %) 1.0 Baso % (Auto) (0.1 - 0.9 %) 0.4 Neut # (Auto) (K/mm3) 4.7 Lymph # (Auto) (K/mm3) 1.9 [place] # (Auto) (K/mm3) 0.5 Eos # (Auto) (K/mm3) 0.07 Baso # (Auto) (K/mm3) 0.0 Miscellaneous Maternal Serum HCG 13454 Urines Urine Color (YELLOW) YELLOW Urine Appearance (CLEAR) CLOUDY H Urine pH (5 - 9) 8.0 Ur Specific Kirk (1.001 - 1.035) 1.020 Urine Protein (NEGATIVE) [...] Report Impression - Status: SIGNED Entered: 07/04/2022 3501 IMPRESSION: 1. Single live intrauterine gestation corresponding to 13 weeks and 6 days by crown-rump length. 2. heart activity of 157 the the bpm. 3. Low-lying placenta with 6.5 x 1.1 x 3.3 cm retroplacental hemorrhage along the lower uterine segment. 3.2 x 3.5 x 0.8 cm subchorionic hemorrhage along the left anterolateral aspect of the gestational sac. Impression By: HYUN Dutton DUP AB/PEL/SC/LTD 07/04 1350 Report Impression - [...] the gestational sac. Impression By: HYUN Dutton - US PREG EVAL 1ST TRIMTR 07/04 [...] 07/04 1118 O2 Delivery Room air 07/04 1118 Temp 36.8 07/04 1118 Pulse 92 07/04 1118 Resp 18 07/04 1118 All vital signs available at the time of this entry have been reviewed. Condition Stable, Improved Clinical ImpressionClinical ImpressionPrimary Impression: Subchorionic bleedTime of Impression 1625 Disposition DecisionDischarge )( Discharged to Home Yes )( Time 1625 )( Date 07/04/22 Discharge/Care PlanPatient Instructions Bleeding During Early at 0639RPT #:[id number] OF REPORTEDEmergency department houwmj8084-50-95J66:47:00F.QTFB19922765-4 257AVAvailable for patient irymDQCHUAVOZVDVHH6096-57-70H67:40:03 [facility] 2018-09-28 15:17:04 NMjanvyyrzo68522qKFGfwZeHp1Dw/htHRKLjZD+ u pl10YCJmtPO8lSpWpcKETtt5OKvxdttONo9ADt160 14-10-02T15:17:04 [place] [address] Patient Name: DEYSI ALVAREZ Patient#: [id number] Date: 08/30/2018 Date: 08/31/2018 Age/Gender: 23/FDate of : 1995[facility]: [facility]/AAdmitting Phys: [facility] DIS[facility]GE SUMMARY DATE OF ADMISSION: 08/30/2018 DATE [...] her laparoscopic cholecystectomy and was treating the eoikejpftzqtfj-dbq-phjkwdw medication. Her liver function tests were elevated, [...] Nacho Meraz MD TT: 09/28/2018 15:17:04IT/MODLJob #: [id number] Authenticated by:Nacho Stephens MD on 10/03/2018 06:55 AM CDT Legally authenticated by KT AHMADI 2018-10-03 06:55:57DSDischarge ohozlia02824PCNQVK-XCTNA, NTYG-BWIIUEJF-QWWMYBOVM-EV0212-29-54I55:1 7:[id number] 513040068HVIXPNFS12638UIENBS-PIEFU, FBPW-SZFSJSUPYZTTHQ6466-54RZAIQESHMVFVRQ1002-42-90K11:58:46 [facility] 2018-08-31 11:47:50 XSdyfgdgpxm37828N8S8DaUo6fpNkiQOoYcHBC22 d CcLqk5CRModK3GlMOs2k7Cq7TBDUldyDeovru0B91 13-09-05T11:47:50 [place] [address] Patient Name: DEYSI ALVAREZ Patient#: [id number] Date: 08/30/2018 of : 1995 Age/Gender: 23/FHSSV/RM/[place] [facility] [place]/AAdmitting Phys: Nacho Meraz MD OPERATIVE NOTE DATE [...] is voiced. Johan Valle DO TT: 08/31/2018 11:47:50KAW/MODLJob #: [id number] cc: Nacho Meraz MDFax: Mason Lyon MDFax: Uzxcfnxhglqfpl Authenticated by:Johan Valle D.O. on 08/31/2018 01:28 PM TV TECHNICIAN Legally authenticated by LEONARD PRADO 2018-08-31 01:28:58OPOperative btljvp72457VLLQFELI [id number] [id number], RILUXRGHXCHGPKUGB1890-12-74X50:35:21 JOHAN VALLE GEORGIE 2018-08-31 03:51:38 VNrlgsqwzrh46455iigGDrTyRY8fDx096NrfAa23 J 9j2Pslb4//IWwn7pt0RAfOYvs3X3KF5xfdbECid52 13-09-0503:51:38 [place] [address] Patient Name: DEYSI ALVAREZ Patient#: [id number] Date: 08/30/2018 of : 1995 Age/Gender: 23/FHSSV/RM[place] [facility] [place]/AAdmitting Phys: Nacho Meraz MD CONSULTATION NOTE DATE [...] andshe has been treating them symptomatically with owfk-ruu-mlwinca medications.She had an ultrasound recently, on August [...] on the they were normal. On the 2nd,VHJ327. On the , ALT 599, AST 547. [...] to follow. Johan Valle DO TT: 08/31/2018 03:51:38KAW/MODLJob #: [id number] Authenticated by:Johan Valle D.O. on 08/31/2018 01:28 PM TV TECHNICIAN Legally authenticated by LEONARD PRADO 2018-08-31 01:28:29NAZphgsrnkoxwa08495AKUK, GBICRVXDGCLCHT0889-25-70M67:51:[id number] NBWAA37299COCW, DOOMILMGMQDSYSBAQ5377-10-74W36:34:05 JOHAN VALLE BHKENNETHET 2018-08-26 13:02:51 JNdsbuwwaxm54379CwZ4wIJ15vZ+4Z+/cqpehy/p 1 TJlPsoGRuM9iV9YsUgjV1igX2MLZbioO/WjqTDG02 13-09-00T13:02:[address] [address] Patient Name: DEYSI ALVAREZ Patient#: [id number] Date: 08/25/2018 of : 1995 Age/Gender: 23/FHSSV/RM/BED: [facility]/AAdmitting Phys: Esequiel Galvan MD OPERATIVE NOTE DATE OF SURGERY: 08/25/2018 SURGEON: Nacho Meraz MD PROJECT TECHNICIAN: None. PREOPERATIVE DIAGNOSISAcute cholecystitis. POSTOPERATIVE DIAGNOSISAcute cholecystitis. [...] the infraumbilical port site with 0 Vicryl JM9lmfntj-zh-epthw stitch. Skin was closed with 4-0 Monocryl, Dermabond. Lapcount and instrument count were correct. Transferred to recovery, extubated,under stable condition. Nacho Meraz MD TT: 08/26/2018 13:02:51IT/MODLJob #: [id number] Authenticated by:Nacho Stephens MD on 09/28/2018 02:32 PM CDT Legally authenticated by KT AHMADI 2018-09-28 02:32:05OPOperative vaunzl66210HDPRHG-SCWKDRICKIE MERAZ-BARJAIUMY-UZ8559-22-49H22:0 [id number]-NUKSG, CNWB-LXKXAFWFLFIIBG5519-44MIKZHXIEMMHGYA0999-91-45K77:35:53 WIN MERAZ [facility] 2018-08-25 10:48:53 YAzconkutrm25137UUAHODlhn4NYzDac9MJ5+Zqz b sR3mUC3BQSLucZ2+HeqfgvfSlid48ZvOJl9vPAf28 16-08-27T10:48:[address] [address] Patient Name: DEYSI ALVAREZ Patient#: [id number] Date: 08/25/2018 of : 1995 Age/Gender: 23/FHSSV/RM/BED: [facility]/258/AAdmitting Phys: Esequiel Galvan MD HISTORY AND PHYSICAL [...] alcohol and fatty foods. [facility] with the above symptoms. She had a CT scan of the abdomen which showed a fatty liver. She was given symptomatic treatment andtold to return to her prior primary care and see a GI physician, as well. She was given dicyclomine and [facility] Last [facility], the pain intensity got [...] 98.1, pulse 97, respiratory rate 16, blood jflydezg272/80, O2 sats 100% on room air.SKIN: No [...] White blood cell count 11.8, hemoglobin 13.8, lqrpynrpp632. test was negative. Urinalysis was clear on [...] IV Pepcid.6. Further recommendations to follow. Esequiel Gavlan MD TT: 08/25/2018 10:48:53JA/MODLJob #: [id number] Authenticated by:Esequiel Galvan M.D. on 08/26/2018 08:52 AM TV TECHNICIAN Legally authenticated by COREY IRAHETA 2018-08-26 08:52:29HPHistory and physical wjnaesxfiaj57796FBYFGZ CGMOJOYFBTTJWXFJRLHV-2345-24-28T10:48:53E [id number] 2303QOGUHKMF29567CGSERG CVDEYOABFFUULPNREZ9576-11-57F92:54:09 ESEQUIEL GALVAN [facility] 2018-08-25 10:10:14 DDlnslydakf50093dAaRfgEqSeJUe/5ZNlfjOk1Y e Z35Nmrypf4BsJ0ir4FjcFGrImwsmQQbovg0t3VF95 16-08-27T10:10:14 [place] [address] Patient Name: DEYSI ALVAREZ Patient#: [id number] Date: 08/25/2018 of : 1995 Age/Gender: 23/SSV/RM/BED: OBE/258/AAdmitting Phys: Esequiel Galvan MD CONSULTATION NOTE [...] 98.1, heart rate 97, blood pressure 118/78, xumtcgi896% room air.GENERAL: Awake, alert, following commands. No [...] open cholecystectomy. She understands benefits,Legally authenticated by TK AHMADI 2018-09-28 02:32:13alternatives, and risks of the procedure, which include but not limited tobleeding, infection, perforation, ileus, obstruction, hernia, heart attack,stroke, pulmonary embolism, deep venous thrombosis, , and agrees with the plan. Nacho Meraz MD TT: 08/25/2018 10:10:14IT/MODLJob #: [id number] Authenticated by:Nacho Stephens MD on 09/28/2018 02:32 PM CDT Legally authenticated by KT AHMADI 2018-09-28 02:32:06PJHllrmhmalodz23199OMZUBY-WTUIZ, ZNIE-OYBUUZNA-WAAQBGJJU-MG4674-11-42M80:1 [id number]-UDTSD, HNXA-DIKQWKVFQDGVJQ5702-66UIMCZNZXPVHZEE8447-44-23E54:35:41 [facility]
[2023-10-25 18:25] LABS: Absolute Basophils 0.1 K/uL (0-0.5); Absolute Eosinophils 0.1 K/uL (0-0.5); Absolute Lymphocytes (CBC) 2.7 K/uL (0.7-4.9); Absolute Monocytes 0.5 K/uL (0.1-1.3); Absolute Neutrophil 2.6 K/uL (1.8-8.0); Hematocrit 38.8 % (36.0-45.0); Hemoglobin 12.8 g/dL (12.0-15.0); Lymphocytes % 46.4 % (15.3-44.8); MCH 25.9 pg (27.0-35.0); MCHC 33.1 g/dL (32.0-36.0); MCV 78.3 fL (80-100); MPV 9.4 fL (7.6-11.3); Monocytes % 7.6 % (3.3-12.3); Nucleated Red Blood Cells % 0.1 % (0-0); Platelets 250 thou/uL (152-406); RBC Red Blood Cell Count 4.96 M/uL (3.86-4.86); Red Cell Distribution Width 18.4 % (12.1-15.2)
[2023-10-25 18:31] LABS: Specific Gravity > 1.030 (1.005-1.030)
[2023-10-25 18:32] LABS: Specific Gravity > 1.030 (1.005-1.030); Sqamous Epithelial <5 /HPF (None Seen); Urine Bacteria None Seen /HPF (<20); Urine Bilirubin NEGATIVE (Negative); Urine Blood Negative (Negative); Urine Clarity Clear (Clear); Urine Color Yellow (Yellow); Urine Culture Reflex Order NOT NEEDED; Urine Glucose NEGATIVE (Negative); Urine Ketones NEGATIVE (Negative); Urine Microscopic Reflex YN ORDER UMIC; Urine Mucus 1+ /HPF (None Seen); Urine Nitrite NEGATIVE (Negative); Urine Protein TRACE (Negative); Urine RBC <5 /HPF (None Seen); Urine Urobilinogen Normal (Normal); Urine WBC <5 /HPF (<5)
[2023-10-25 18:45] LABS: Albumin 3.4 g/dL (3.4-5.0); Albumin/Globulin Ratio 0.8 (1.1-1.8); Anion Gap 8.2 mEq/L (5.0-15.0); Bilirubin Total 0.3 mg/dL (0.2-1.0); Globulin 4.1 g/dL (2.3-3.5); Potassium 4.2 mEq/L (3.5-5.1); Protein, Total 7.5 g/dL (6.4-8.2)
[2023-10-25] MEDS ORDERED: ONDANSETRON 4 MG/2 ML VIAL ONE (19:30)
[2023-10-25] MEDS ORDERED: FAMOTIDINE 20 MG/2 ML VIAL IV ONE (19:31)
[2023-10-25] MEDS ORDERED: NA CHLORIDE 0.9% 1,000 ML ONE (19:31)
[2023-10-25] MEDS ORDERED: KETOROLAC 30 MG/ML INJ ONE (19:31)
--- NOTE | 2023-10-25 20:28 | RAD REPORT ---
EXAM DESCRIPTION: CT - Abdomen Pelvis W Contrast - 10/25/2023 7:06 pm CLINICAL HISTORY: ABD PAIN COMPARISON: Abdomen Pelvis W Contrast dated 03/07/2022 TECHNIQUE: Thin cut axial CT imaging of the abdomen and pelvis was performed following intravenous a dministration of iodinated contrast. Multiplanar reformats were generated and reviewed. All CT scans are performed using dose optimization technique as appropriate and may include automated exposure control or mA/KV adjustment according to patient size. FINDINGS: No suspicious findings in the lung bases. The liver, spleen, adrenal glands, and pancreas show no suspicious findings. Sequelae of gastric bypa ss and cholecystectomy. Symmetric renal function is seen with no hydronephrosis or suspicious renal mass. No dilated bowel loops or bowel wall thickening. No free air, free fluid or inflammatory stranding. N o hernia, mass or bulky lymphadenopathy. The urinary bladder is without significant finding. No suspicious bony findings. IMPRESSION: No acute intra-abdominal process.
--- NOTE | 2023-10-25 20:58 | EDPHYS ---
Physician Documentation [facility] Name: Anita Alvarez Age: 28 yrs Sex: Female : 1995 Arrival Date: 10/25/2023 Time: 17:07 Bed 9 Private MD: GLADYS Physician Maxime Rainey HPI: 10/24 17:30 This 28 yrs old Female presents to ER via Ambulatory with complaints of Abdominal Pain, cp Vomiting. 17:30 The patient presents with abdominal pain in the upper abdomen. cp 17:30 Onset: The symptoms/episode began/occurred for past couple weeks, worse today. cp 17:30 The symptoms radiate to Associated signs and symptoms: Pertinent positives: nausea and cp vomiting, Pertinent negatives: constipation, diarrhea, dysuria, fever, headache, vomiting blood. The symptoms are described as waxing/waning. Historical: - Allergies: 17:23 PENICILLINS; ld1 - PMHx: 17:23 Anxiety; Hoshimoto's disease; Hypertensive disorder; ld1 - PSHx: 17:23 Cholecystectomy; DNC; gastric sleeve; ld1 - Immunization history:: Adult Immunizations up to date. - Infectious Disease History:: Denies. - Social history:: Smoking status: Patient denies any tobacco usage or history of. ROS: 17:35 Constitutional: Negative for body aches, chills, fever, poor PO intake, cp 17:35 Eyes: Negative for injury, pain, redness, and discharge, cp 17:35 ENT: Negative for drainage from ear(s), ear pain, sore throat, difficulty swallowing, difficulty handling secretions, 17:35 Cardiovascular: Positive for chest pain, Negative for palpitations, 17:35 Respiratory: Negative for cough, shortness of breath, wheezing, 17:35 Abdomen/GI: Positive for abdominal pain, nausea and vomiting, Negative for diarrhea, constipation, hematemesis, black/tarry stool, rectal bleeding, 17:35 Back: Positive for radiated pain, 17:35 Neuro: Negative for altered mental status, dizziness, headache, syncope, weakness, 17:35 All other systems are negative, Exam: 17:40 Constitutional: The patient appears in no acute distress, alert, awake, cp non-diaphoretic, non-toxic, well developed, well nourished, uncomfortable, 17:40 Head/Face: Normocephalic, atraumatic. cp 17:40 Eyes: Periorbital structures: appear normal, Conjunctiva: normal, no exudate, no injection, Sclera: no appreciated abnormality, Lids and lashes: appear normal, bilaterally, 17:40 ENT: External ear(s): are unremarkable, Nose: is normal, Mouth: Lips: moist, Oral mucosa: pink and intact, moist, Posterior pharynx: is normal, airway is patent, no erythema, no exudate, 17:40 Chest/axilla: Inspection: normal, 17:40 Cardiovascular: Rate: tachycardic, Rhythm: regular, 17:40 Respiratory: the patient does not display signs of respiratory distress, Respirations: normal, no use of accessory muscles, no retractions, labored breathing, is not present, Breath sounds: are clear throughout, no decreased breath sounds, no stridor, no wheezing, 17:40 Abdomen/GI: Inspection: abdomen appears normal, Bowel sounds: active, all quadrants, Palpation: soft, in all quadrants, moderate abdominal tenderness, in the epigastric area, right upper quadrant and left upper quadrant, rebound tenderness, is not appreciated, involuntary guarding, is not appreciated, 17:40 Back: CVA tenderness, is absent, 18:30 ECG was reviewed by the Attending Physician. Vital Signs: 17:25 BP 131 / 94; Pulse 109; Resp 18; Temp 98.2(TE); Pulse Ox 100% on R/A; Weight 81.65 kg; ld1 Height 5 ft. 2 in. ; Pain 8/10; 20:29 BP 129 / 87; Pulse 84; Resp 16 S; Pulse Ox 97% on R/A; as6 17:25 Body Mass Index 32.92 (81.65 kg, 157.48 cm) ld1 17:25 Pain Scale: Adult ld1 MDM: 17:28 Patient medically screened. 19:00 Differential diagnosis: appendicitis, gastritis, pancreatitis, Peptic Ulcer Disease, cp Perf. Duodenal Ulcer, Perf. Gastric Ulcer, Pyelonephritis, Ureterolithiasis, urinary tract infection, choledocholithiasis. 20:56 Data reviewed: vital signs, nurses notes, lab test result(s), radiologic studies, CT cp scan, and as a result, I will discharge patient. 20:56 I considered the following discharge prescriptions or medication management in the emergency department Medications were administered in the Emergency Department. See MAR. Care significantly affected by the following chronic conditions: Hypertension. 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 Response to treatment: the patient's symptoms have markedly improved after treatment, and as a result, I will discharge patient. Special discussion: Based on the patient's Hx, exam, and Dx evaluation, there is no indication for emergent surgery or inpatient Tx. It is understood by the patient/guardian that if the Sx's persist or worsen they need to return immediately for re-evaluation. 10/24 17:26 Order name: CBC with Diff; Complete Time: 19:15 10/24 19:15 Interpretation: Normal except: RBC 4.96; MCV 78.3; MCH 25.9; RDW 18.4; LYM% 46.4. 10/24 17:26 Order name: CMP; Complete Time: 19:15 10/24 19:15 Interpretation: Normal except: ALT 58; GLOB 4.1; A/G 0.8. 10/24 17:26 Order name: Lipase; Complete Time: 19:15 10/24 20:41 Interpretation: Reviewed. 10/24 17:26 Order name: Test, Urine; Complete Time: 19:15 10/24 19:16 Interpretation: Reviewed. 10/24 17:26 Order name: Urinalysis w/ reflexes; Complete Time: 19:15 10/24 19:15 Interpretation: Normal except: Urine SG > 1.030; UPROT TRACE. 10/24 18:05 Order name: Magnesium; Complete Time: 20:40 10/24 20:40 Interpretation: Reviewed. 10/24 18:14 Order name: CT Abd/Pelvis - IV Contrast Only; Complete Time: 20:40 10/24 20:40 Interpretation: Report reviewed. 10/24 17:26 Order name: EKG; Complete Time: 17:26 10/24 17:26 Order name: IV Saline Lock; Complete Time: 18:28 10/24 17:26 Order name: Labs collected and sent; Complete Time: 18:28 cp 10/24 17:26 Order name: EKG - Nurse/Tech; Complete Time: 18:28 cp 10/24 18:43 Order name: Labs - recollect needed: recollect green top; Complete Time: 19:16 bd 10/24 20:42 Order name: PO challenge; Complete Time: 20:46 cp EC:30 Rate is 80 beats/min. Rhythm is regular. NM interval is normal. QRS interval is normal. cp QT interval is normal. T waves are Inverted in lead aVR. Interpreted by me. Reviewed by me. Administered Medications: 19:39 Drug: NS 0.9% IV 1000 ml IV at 1 bolus Per protocol; 1000 mL bolus Route: IV; Rate: 1 as6 bolus; Site: left antecubital; 21:26 Follow up: Response: No adverse reaction; IV Status: Completed infusion; IV Intake: as6 1000ml 19:39 Drug: Ondansetron IVP 4 mg IVP once; over 2 minutes Route: IVP; Site: left antecubital; as6 21:27 Follow up: Response: No adverse reaction as6 19:39 Drug: Famotidine IVP 20 mg IVP once; dilute with 10 mL 0.9% NaCl; give over 2 minutes as6 Route: IVP; Site: left antecubital; 21:27 Follow up: Response: No adverse reaction as6 19:39 Drug: Ketorolac IVP 15 mg IVP once Route: IVP; Site: left antecubital; as6 21:27 Follow up: Response: No adverse reaction as6 Disposition Summary: 10/25/23 20:57 Discharge Ordered Notes: Location: Home cp Problem: new cp Symptoms: have improved cp Condition: Stable cp Diagnosis - Upper abdominal pain, unspecified cp Followup: cp - With: Enrico Rivera MD - When: 2 - 3 days - Reason: Recheck today's complaints Discharge Instructions: - Discharge Summary Sheet cp - Abdominal Pain, Adult cp Forms: - Medication Reconciliation Form cp - Antibiotic Education cp - Prescription Opioid Use cp - Patient Portal Instructions cp - Leadership Thank You Letter cp Prescriptions: - Carafate 1 gram Oral tablet - take 1 tablet ORAL route 4 times per day take on an empty stomach, beginning on cp waking and last dose at bedtime. dissolve tablet in 6 ounces warm water prior to ingestion; 100 tablet; Refills: 0, Product Selection Permitted - Protonix 40 mg Oral Tablet - take 1 tablet ORAL route once daily; 30 tablet; Refills: 0, Product Selection cp Permitted - Zofran 4 mg Oral Tablet - take 1 tablet ORAL route every 12 hours As needed; 20 tablet; Refills: 0, cp Product Selection Permitted Addendum: 10/26/2023 22:10 Co-signature as Attending Physician, Maxime Rainey MD I agree with the assessment and c peña plan of care. Signatures: Dispatcher [employer] EDMS Angeline Adame Corey, MD MD cha Page, Corey, PA PA cp Loretta Mcnulty RN RN ld1 Maxime Ashby RN RN as6 Corrections: (The following items were deleted from the chart) 20:25 10/24 17:30 Onset: The symptoms/episode began/occurred this morning, cp cp
--- NOTE | 2023-10-25 20:58 | ER ---
Nurse's Notes [facility] Name: Anita Alvarez Age: 28 yrs Sex: Female : 1995 Arrival Date: 10/25/2023 Time: 17:07 Bed 9 Private MD: Diagnosis: Upper abdominal pain, unspecified Presentation: 10/24 17:25 Chief complaint: Patient states: N/V, abdominal pain. Coronavirus screen: At this time, ld1 the client does not indicate any symptoms associated with coronavirus-19. Ebola Screen: No symptoms or risks identified at this time. Initial Sepsis Screen: Does the patient meet any 2 criteria? No. Patient's initial sepsis screen is negative. Does the patient have a suspected source of infection? No. Patient's initial sepsis screen is negative. Risk Assessment: Do you want to hurt yourself or someone else? Patient reports no desire to harm self or others. Onset of symptoms was October 25, 2023 at 17:26. 17:25 Method Of Arrival: Ambulatory ld1 17:25 Acuity: RAFA 3 ld1 Triage Assessment: 17:25 General: Appears in no apparent distress. uncomfortable, Behavior is calm, cooperative, ld1 appropriate for age. Pain: Complains of pain in right upper quadrant Pain does not radiate. Pain currently is 8 out of 10 on a pain scale. Quality of pain is described as throbbing. Pain: Pain began 2-3 days ago. Is continuous. EENT: No signs and/or symptoms were reported regarding the EENT system. Neuro: Level of Consciousness is awake, alert, obeys commands, Oriented to person, place, time, situation. Cardiovascular: Capillary refill < 3 seconds Patient's skin is warm and dry. Respiratory: Airway is patent Respiratory effort is even, unlabored. GI: Abdomen is round non-distended, Reports upper abdominal pain, nausea. : No signs and/or symptoms were reported regarding the genitourinary system. Derm: No signs and/or symptoms reported regarding the dermatologic system. Musculoskeletal: No signs and/or symptoms reported regarding the musculoskeletal system. Historical: - Allergies: 17:23 PENICILLINS; ld1 - PMHx: 17:23 Anxiety; Hoshimoto's disease; Hypertensive disorder; ld1 - PSHx: 17:23 Cholecystectomy; DNC; gastric sleeve; ld1 - Immunization history:: Adult Immunizations up to date. - Infectious Disease History:: Denies. - Social history:: Smoking status: Patient denies any tobacco usage or history of. Screenin:28 [facility] ED Fall Risk Assessment (Adult) History of falling in the last 3 months, as6 including since admission No falls in past 3 months (0 pts) Confusion or Disorientation No (0 pts) Intoxicated or Sedated No (0 pts) Impaired Gait No (0 pts) Mobility Assist Device Used No (0 pt) Altered Elimination No (0 pt) Score/Fall Risk Level 0 - 2 = Low Risk Oriented to surroundings, Maintained a safe environment, Educated pt \T\ family on fall prevention, incl call for assistance when getting out of bed, Assessed \T\ reinforced patient's understanding of fall precautions. Abuse screen: Denies threats or abuse. Denies injuries from another. Nutritional screening: No deficits noted. Tuberculosis screening: No symptoms or risk factors identified. Assessment: 20:29 Reassessment: Patient appears in no apparent distress at this time. Patient and/or as6 family updated on plan of care and expected duration. Pain level reassessed. Patient is alert, oriented x 3, equal unlabored respirations, skin warm/dry/pink. Patient states feeling better. Vital Signs: 17:25 BP 131 / 94; Pulse 109; Resp 18; Temp 98.2(TE); Pulse Ox 100% on R/A; Weight 81.65 kg; ld1 Height 5 ft. 2 in. ; Pain 8/10; 20:29 BP 129 / 87; Pulse 84; Resp 16 S; Pulse Ox 97% on R/A; as6 17:25 Body Mass Index 32.92 (81.65 kg, 157.48 cm) ld1 17:25 Pain Scale: Adult ld1 ED Course: 17:09 Patient arrived in ED. rg4 17:14 Maxime Barker PA is PHCP. cp 17:14 Maxime Rainey MD is Attending Physician. cp 17:14 Maxime Rainey MD is Attending Physician. cp 17:25 Arm band placed on right wrist. ld1 17:26 Triage completed. ld1 17:54 Maxime Ashby, TAMMY is Primary Nurse. as6 18:27 Inserted saline lock: 20 gauge in left antecubital area, using aseptic technique. Blood jr12 collected. 18:27 EKG done, by ED staff, reviewed by Maxime ALEMAN. jr12 18:28 Magnesium Sent. jr12 18:28 CMP Sent. jr12 18:28 Lipase Sent. jr12 18:28 Test, Urine Sent. jr12 18:28 Urinalysis w/ reflexes Sent. jr12 19:08 CT Abd/Pelvis - IV Contrast Only In Process Unspecified. EDMS 20:29 Bed in low position. Call light in reach. Side rails up X2. Warm blanket given. as6 20:46 PO fluids given. as6 20:56 Enrico Rivera MD is Referral Physician. cp 21:25 No provider procedures requiring assistance completed. IV discontinued, intact, as6 bleeding controlled, No redness/swelling at site. Pressure dressing applied. 21:26 Provided Education on: follow up with GI. as6 Administered Medications: 19:39 Drug: NS 0.9% IV 1000 ml IV at 1 bolus Per protocol; 1000 mL bolus Route: IV; Rate: 1 as6 bolus; Site: left antecubital; 21:26 Follow up: Response: No adverse reaction; IV Status: Completed infusion; IV Intake: as6 1000ml 19:39 Drug: Ondansetron IVP 4 mg IVP once; over 2 minutes Route: IVP; Site: left antecubital; as6 21:27 Follow up: Response: No adverse reaction as6 19:39 Drug: Famotidine IVP 20 mg IVP once; dilute with 10 mL 0.9% NaCl; give over 2 minutes as6 Route: IVP; Site: left antecubital; 21:27 Follow up: Response: No adverse reaction as6 19:39 Drug: Ketorolac IVP 15 mg IVP once Route: IVP; Site: left antecubital; as6 21:27 Follow up: Response: No adverse reaction as6 Medication: 20:28 VIS not applicable for this client. as6 Intake: 21:26 IV: 1000ml; Total: 1000ml. as6 Outcome: 20:57 Discharge ordered by . cp 21:26 Discharged to home ambulatory, as6 21:26 Condition: stable 21:26 Discharge instructions given to patient, Instructed on discharge instructions, follow up and referral plans. medication usage, Demonstrated understanding of instructions, follow-up care, medications, Prescriptions given X 3, 21:26 Patient left the ED. as6 Signatures: Dispatcher [employer] EDMS Maxime Barker PA PA cp Garcia, Rubi rg4 Loretta Mcnulty RN RN ld1 Maxime Ashby RN RN as6 Leigha Berman jr12
[2023-10-25 21:52] VITALS: BP 129/87; TEMP 98.2; O2SAT 97
--- NOTE | 2023-10-26 14:44 | EKG ---
Test Date: 2023-10-25 Test Time: 18:24:17 Gardening Instructor: KELLEY MEASUREMENT RESULTS: Intervals: Rate: 80 IN: 148 QRSD: 78 QT: 336 QTc: 387 [place]: P: 19 IN: 148 QRS: 56 T: 52 INTERPRETIVE STATEMENTS: Normal sinus rhythm with sinus arrhythmia Normal ECG Compared to ECG 10/19/2023 22:41:52 No significant changes Electronically Signed On 10-26-23 14:43:28 CDT by Arthur Ahuja
== END 2023-10-25 21:26 | disposition home or self-care (01) ==
LOC: ER 17:07
DX: R10.13 Epigastric pain (principal); R07.9 Chest pain, unspecified; I10 Essential (primary) hypertension; Z88.0 Allergy status to penicillin
CPT/HCPCS: 93005; 85025; 81001; 36415; 83735; 81025; 83690; 80053; 74177; Q9967; J2405; J7030; 96361; 96374; 96375; 99284

== ENCOUNTER 2024-02-10 10:46 | Emergency (ER) | payer SELFPAY ==
[2024-02-10] MEDS ORDERED: NA CHLORIDE 0.9% 1,000 ML ONE (11:18)
[2024-02-10 11:23] LABS: Absolute Basophils 0.1 K/uL (0-0.5); Absolute Eosinophils 0.1 K/uL (0-0.5); Absolute Lymphocytes (CBC) 3.1 K/uL (0.7-4.9); Absolute Monocytes 0.6 K/uL (0.1-1.3); Absolute Neutrophil 4.5 K/uL (1.8-8.0); Basophils % 0.8 % (0-1.3); Eosinophils % 1.6 % (0-4.4); Hematocrit 42.5 % (36.0-45.0); Hemoglobin 13.9 g/dL (12.0-15.0); Lymphocytes % 37.5 % (15.3-44.8); MCH 27.5 pg (27.0-35.0); MCHC 32.7 g/dL (32.0-36.0); MCV 84.1 fL (80-100); MPV 8.3 fL (7.6-11.3); Monocytes % 6.7 % (3.3-12.3); Neutrophils % 53.4 % (41.7-73.7); Platelets 366 thou/uL (152-406); RBC Red Blood Cell Count 5.05 M/uL (3.86-4.86); Red Cell Distribution Width 14.8 % (12.1-15.2)
[2024-02-10] MEDS ORDERED: METOPROLOL TAR 25 MG TAB ONE (11:33)
[2024-02-10 11:47] LABS: ALT/SGPT 21 U/L (13-56); AST/SGOT 13 U/L (15-37); Albumin 3.5 g/dL (3.4-5.0); Albumin/Globulin Ratio 0.8 (1.1-1.8); Alkaline Phosphatase 70 U/L (45-117); Anion Gap 6.9 mEq/L (5.0-15.0); BUN Blood Urea Nitrogen 15 mg/dL (7-18); Bicarbonate 29 mEq/L (21-32); Bilirubin Total 0.5 mg/dL (0.2-1.0); Globulin 4.2 g/dL (2.3-3.5); Glomerular Filtration Rate 125 ml/min (=/>90); Glucose Level 90 mg/dL (74-106); Potassium 3.9 mEq/L (3.5-5.1); Protein, Total 7.7 g/dL (6.4-8.2); Sodium Level 136 mEq/L (136-145); Troponin High Sensitivity < 3.0 pg/mL (<58.9)
[2024-02-10 11:48] LABS: Specific Gravity > 1.030 (1.005-1.030)
[2024-02-10 11:49] LABS: Specific Gravity > 1.030 (1.005-1.030); Urine Bacteria <20 /HPF (<20); Urine Bilirubin NEGATIVE (Negative); Urine Blood Negative (Negative); Urine Clarity Extremely Turbid (Clear); Urine Color Yellow (Yellow); Urine Culture Reflex Order NOT NEEDED; Urine Glucose NEGATIVE (Negative); Urine Ketones NEGATIVE (Negative); Urine Microscopic Reflex YN ORDER UMIC; Urine Mucus 1+ /HPF (None Seen); Urine Nitrite NEGATIVE (Negative); Urine Protein 1+ (Negative); Urine RBC <5 /HPF (None Seen); Urine Urobilinogen Normal (Normal); Urine pH 6.5 (5.0-7.0)
[2024-02-10] MEDS ORDERED: CEFTRIAXONE 1000 MG/VIAL ONE (12:44)
--- NOTE | 2024-02-10 12:54 | ER ---
Nurse's Notes [facility] Name: Anita Alvarez Age: 28 yrs Sex: Female : 1995 Arrival Date: 02/10/2024 Time: 10:46 Bed 7 Private MD: Diagnosis: Palpitations;UTI/ Urinary tract infection, site not specified;Atelectasis Presentation: 02/09 10:52 Chief complaint: Patient states: heart palpitations and fast heart rate for a few iw weeks. Coronavirus screen: At this time, the client does not indicate any symptoms associated with coronavirus-19. Ebola Screen: No symptoms or risks identified at this time. Initial Sepsis Screen: Does the patient meet any 2 criteria? No. Patient's initial sepsis screen is negative. Does the patient have a suspected source of infection? No. Patient's initial sepsis screen is negative. Risk Assessment: Do you want to hurt yourself or someone else? Patient reports no desire to harm self or others. Onset of symptoms. 10:52 Acuity: RAFA 3 iw 10:52 Method Of Arrival: Ambulatory iw Triage Assessment: 11:00 General: Appears in no apparent distress. uncomfortable, Behavior is calm, cooperative. rs5 Pain: Denies pain. 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 - Infectious Disease History:: Denies. - Social history:: Smoking status: Patient denies any tobacco usage or history of. - Family history:: not pertinent. Screenin:55 [facility] ED Fall Risk Assessment (Adult) History of falling in the last 3 months, rs5 including since admission No falls in past 3 months (0 pts) Confusion or Disorientation No (0 pts) Intoxicated or Sedated No (0 pts) Impaired Gait No (0 pts) Mobility Assist Device Used No (0 pt) Altered Elimination No (0 pt) Score/Fall Risk Level 0 - 2 = Low Risk Oriented to surroundings, Maintained a safe environment. Abuse screen: Denies threats or abuse. Nutritional screening: No deficits noted. Tuberculosis screening: No symptoms or risk factors identified. Assessment: 10:57 General: Appears in no apparent distress. uncomfortable, Behavior is calm, cooperative. rs5 Pain: Denies pain. Neuro: Level of Consciousness is awake, alert, obeys commands, Oriented to person, place, time, situation. Cardiovascular: Reports palpitations, Patient's skin is warm and dry. Rhythm is sinus tachycardia. Respiratory: Airway is patent Respiratory effort is even, unlabored, Respiratory pattern is regular, symmetrical. GI: Abdomen is round non-distended, Abd is soft and non tender X 4 quads. : No signs and/or symptoms were reported regarding the genitourinary system. EENT: No signs and/or symptoms were reported regarding the EENT system. Derm: Skin is intact, Skin is pink, warm \T\ dry. Musculoskeletal: Range of motion: intact in all extremities. 12:01 Reassessment: Patient and/or family updated on plan of care and expected duration. Pain rs5 level reassessed. Patient is alert, oriented x 3, equal unlabored respirations, skin warm/dry/pink. Patient states feeling better. Patient states symptoms have improved. 13:00 Reassessment: Patient and/or family updated on plan of care and expected duration. Pain rs5 level reassessed. Patient is alert, oriented x 3, equal unlabored respirations, skin warm/dry/pink. Vital Signs: 10:52 BP 122 / 80; Pulse 115; Resp 16; Temp 98; Pulse Ox 100% ; Weight 88.45 kg; Height 5 ft. iw 2 in. ; 11:31 BP 112 / 75; Pulse 101; Resp 17; Pulse Ox 99% on R/A; rs5 12:10 BP 115 / 73; Pulse 99; Resp 18; Pulse Ox 99% ; rs5 13:00 BP 117 / 77; Pulse 88; Resp 17; Pulse Ox 99% on R/A; rs5 10:52 Body Mass Index 35.67 (88.45 kg, 157.48 cm) iw ED Course: 10:48 Patient arrived in ED. ra3 10:51 Maxime Rainey MD is Attending Physician. ke[place] 10:53 Triage completed. iw 10:54 Arm band placed on. iw 10:55 Patient has correct armband on for positive identification. Placed in gown. Bed in low rs5 position. Call light in reach. Side rails up X2. 11:20 No provider procedures requiring assistance completed. Inserted saline lock: 20 gauge rs5 in right. 11:28 Magan Murray, TAMMY is Primary Nurse. rs5 11:34 Urine collected: clean catch specimen, clear, EKG done, by ED staff, reviewed by Maxime Rainey MD. 12:41 CT Chest For PE Angio In Process Unspecified. EDMS 12:53 Arthur Ahuja MD is Referral Physician. [facility] 13:01 US Extremity Venous W Compression Vipul In Process Unspecified. EDMS 13:10 IV discontinued, intact, bleeding controlled, No redness/swelling at site. Pressure rs5 dressing applied. Administered Medications: 11:00 Drug: NS 0.9% IV 1000 ml IV at 1 bolus Per protocol; 1000 mL bolus Route: IV; Rate: 1 rs5 bolus; Site: right antecubital; 13:50 Follow up: IV Status: Completed infusion; IV Intake: 1000ml rs5 11:37 Drug: Metoprolol PO 25 mg PO once Route: PO; rs5 13:00 Follow up: Response: No adverse reaction rs5 13:04 Drug: Rocephin IV 1 grams IV at per protocol once; Given slow IV push per pharmacy rs5 instructions Route: IV; Rate: per protocol; Site: right antecubital; 13:10 Follow up: Response: No adverse reaction; IV Status: Completed infusion rs5 13:04 CANCELLED (Duplicate Order): [id number] mg PO once [facility] Medication: 13:00 VIS not applicable for this client. rs5 Intake: 13:50 IV: 1000ml; Total: 1000ml. rs5 Outcome: 12:53 Discharge ordered by . [facility] 13:10 Discharged to home ambulatory, rs5 13:10 Condition: stable rs5 13:10 Discharge instructions given to patient, family, Instructed on discharge instructions, follow up and referral plans. medication usage, Demonstrated understanding of instructions, follow-up care, medications, Prescriptions given X 2, 13:15 Patient left the ED. rs5 Signatures: Dispatcher [employer] EDPA Maxime Rainey MD MD cha Williams, Irene, RN RN Magan Murray RN RN rs5 Janny Chaney ra3 Augusta Ratliff RN RN cc6 Corrections: (The following items were deleted from the chart) 10:58 10:52 BP 122 / 80; Resp 16bpm; 88.45 kg; Height 5 ft. 2 in.; BMI: 35.6; iw iw 13:48 10:57 Cardiovascular: Patient's skin is warm and dry. Rhythm is sinus tachycardia rs5 rs5 13:48 12:24 Reassessment: Patient and/or family updated on plan of care and expected rs5 duration. Pain level reassessed. Patient is alert, oriented x 3, equal unlabored respirations, skin warm/dry/pink. Patient states feeling better. Patient states symptoms have improved. rs5
--- NOTE | 2024-02-10 12:54 | EDPHYS ---
Physician Documentation [facility] Name: Anita Alvarez Age: 28 yrs Sex: Female : 1995 Arrival Date: 02/10/2024 Time: 10:46 Bed 7 Private MD: ED Physician Maxime Rainey HPI: 02/09 12:47 This 28 yrs old Female presents to ER via Ambulatory with complaints of Heart keaton palpitations. 12:47 The patient presents with a history of heart racing. Context: The symptoms occur at keaton rest. Onset: The symptoms/episode began/occurred 3 day(s) ago. Duration: The patient or guardian reports multiple episodes, that are intermittent, with no pattern. Modifying factors: The symptoms are aggravated by nothing. The symptoms are alleviated by lying down. Associated signs and symptoms: Pertinent positives: lightheadedness. Severity of symptoms: At their worst the symptoms were mild in the emergency department the symptoms are unchanged. The patient has experienced similar episodes in the past, multiple times. 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 - Infectious Disease History:: Denies. - Social history:: Smoking status: Patient denies any tobacco usage or history of. - Family history:: not pertinent. ROS: 12:47 Constitutional: Negative for fever, chills, and weight loss, Eyes: Negative for injury, keaton pain, redness, and discharge, ENT: Negative for injury, pain, and discharge, Neck: Negative for injury, pain, and swelling, Respiratory: Negative for shortness of breath, cough, wheezing, and pleuritic chest pain, Abdomen/GI: Negative for abdominal pain, nausea, vomiting, diarrhea, and constipation, Back: Negative for injury and pain, : Negative for injury, bleeding, discharge, and swelling, MS/Extremity: Negative for injury and deformity, Skin: Negative for injury, rash, and discoloration, Neuro: Negative for headache, weakness, numbness, tingling, and seizure, Psych: Negative for depression, anxiety, suicide ideation, homicidal ideation, and hallucinations, Allergy/Immunology: Negative for hives, rash, and allergies, Endocrine: Negative for neck swelling, polydipsia, polyuria, polyphagia, and marked weight changes, Hematologic/Lymphatic: Negative for swollen nodes, abnormal bleeding, and unusual bruising, 12:47 Cardiovascular: Positive for palpitations, Exam: 12:47 Constitutional: This is a well developed, well nourished patient who is awake, alert, keaton and in no acute distress. Head/Face: Normocephalic, atraumatic. Eyes: Pupils equal round and reactive to light, extra-ocular motions intact. Lids and lashes normal. Conjunctiva and sclera are non-icteric and not injected. Cornea within normal limits. Periorbital areas with no swelling, redness, or edema. ENT: Nares patent. No nasal discharge, no septal abnormalities noted. Tympanic membranes are normal and external auditory canals are clear. Oropharynx with no redness, swelling, or masses, exudates, or evidence of obstruction, uvula midline. Mucous membranes moist. Neck: Trachea midline, no thyromegaly or masses palpated, and no cervical lymphadenopathy. Supple, full range of motion without nuchal rigidity, or vertebral point tenderness. No Meningismus. Chest/axilla: Normal chest wall appearance and motion. Nontender with no deformity. No lesions are appreciated. Cardiovascular: Regular rate and rhythm with a normal S1 and S2. No gallops, murmurs, or rubs. Normal PMI, no JVD. No pulse deficits. Respiratory: Lungs have equal breath sounds bilaterally, clear to auscultation and percussion. No rales, rhonchi or wheezes noted. No increased work of breathing, no retractions or nasal flaring. Abdomen/GI: Soft, non-tender, with normal bowel sounds. No distension or tympany. No guarding or rebound. No evidence of tenderness throughout. Back: No spinal tenderness. No costovertebral tenderness. Full range of motion. Skin: Warm, dry with normal turgor. Normal color with no rashes, no lesions, and no evidence of cellulitis. MS/ Extremity: Pulses equal, no cyanosis. Neurovascular intact. Full, normal range of motion. Neuro: Awake and alert, GCS 15, oriented to person, place, time, and situation. Cranial nerves II-XII grossly intact. Motor strength 5/5 in all extremities. Sensory grossly intact. Cerebellar exam normal. Normal gait. Psych: Awake, alert, with orientation to person, place and time. Behavior, mood, and affect are within normal limits. 12:47 ECG was reviewed by the Attending Physician. Vital Signs: 10:52 BP 122 / 80; Pulse 115; Resp 16; Temp 98; Pulse Ox 100% ; Weight 88.45 kg; Height 5 ft. iw 2 in. ; 11:31 BP 112 / 75; Pulse 101; Resp 17; Pulse Ox 99% on R/A; rs5 12:10 BP 115 / 73; Pulse 99; Resp 18; Pulse Ox 99% ; rs5 13:00 BP 117 / 77; Pulse 88; Resp 17; Pulse Ox 99% on R/A; rs5 10:52 Body Mass Index 35.67 (88.45 kg, 157.48 cm) iw MDM: 10:51 Patient medically screened. [facility] 12:51 Differential diagnosis: arrythmia, dehydration, stress disorder. Data reviewed: vital keaton signs, nurses notes, lab test result(s), EKG, radiologic studies, CT scan. Consideration of Admission/Observation Escalation of care including admission/observation considered. I considered the following discharge prescriptions or medication management in the emergency department Medications were administered in the Emergency Department. See MAR. Independent interpretation of the following test(s) in the Emergency Department EKG: See my EKG interpretation above. Test considered but Not performed: Ultrasound no 2 d echo. Historians other than the Patient: pt well informed. Care significantly affected by the following chronic conditions: Hypertension, Obesity, hoshimotos,anxiety, migraine. 02/09 10:52 Order name: CBC with Diff; Complete Time: 12:19 keaton 02/09 10:52 Order name: Comprehensive Metabolic Panel; Complete Time: 12:19 keaton 02/09 10:52 Order name: TSH; Complete Time: 12:19 02/09 10:52 Order name: Urinalysis w/ reflexes; Complete Time: 12:19 02/09 10:52 Order name: PREGU; Complete Time: 12:19 02/09 10:52 Order name: Troponin High Sensitivity; Complete Time: 12:19 02/09 11:24 Order name: D-Dimer; Complete Time: 12:19 02/09 12:26 Order name: Urine Culture 02/09 12:22 Order name: CT Chest For PE Angio 02/09 12:22 Order name: US Extremity Venous W Compression Vipul 02/09 13:03 Order name: INCENTIVE SPIROMETRY 02/09 10:52 Order name: EKG; Complete Time: 10:53 [facility] 02/09 10:52 Order name: EKG - Nurse/Tech; Complete Time: 11:36 [facility] EC:47 Rate is 99 beats/min. Rhythm is regular. QRS [place] is Normal. GA interval is normal. QRS keaton interval is normal. QT interval is normal. No Q waves. T waves are Normal. No ST changes noted. Clinical impression: NSR w/ Non-specific ST/T Changes and No evidence of ischemia. Interpreted by me. Reviewed by me. Administered Medications: 11:00 Drug: NS 0.9% IV 1000 ml IV at 1 bolus Per protocol; 1000 mL bolus Route: IV; Rate: 1 rs5 bolus; Site: right antecubital; 13:50 Follow up: IV Status: Completed infusion; IV Intake: 1000ml rs5 11:37 Drug: Metoprolol PO 25 mg PO once Route: PO; rs5 13:00 Follow up: Response: No adverse reaction rs5 13:04 Drug: Rocephin IV 1 grams IV at per protocol once; Given slow IV push per pharmacy rs5 instructions Route: IV; Rate: per protocol; Site: right antecubital; 13:10 Follow up: Response: No adverse reaction; IV Status: Completed infusion rs5 13:04 CANCELLED (Duplicate Order): [id number] mg PO once keaton Disposition Summary: 02/10/24 12:53 Discharge Ordered Notes: Location: Home keaton Problem: new keaton Symptoms: have improved keaton Condition: Stable keaton Diagnosis - Palpitations keaton - UTI/ Urinary tract infection, site not specified keaton - Atelectasis keaton Followup: keaton - With: Private Physician - When: 2 - 3 days - Reason: Recheck today's complaints, Continuance of care, Re-evaluation by your physician Followup: keaton - With: Arthur Ahuja MD - When: 2 - 3 days - Reason: Recheck today's complaints, Re-evaluation by your physician Discharge Instructions: - Discharge Summary Sheet keaton - Atelectasis, Adult keaton - Palpitations keaton - Urinary Tract Infection, Adult keaton - Urinary Tract Infection, Adult, [id number] keaton - Palpitations, [id number] [facility] Forms: - Medication Reconciliation Form keaton - Antibiotic Education keaton - Prescription Opioid Use keaton - Patient Portal Instructions keaton - Leadership Thank You Letter [facility] Prescriptions: - Toprol XL 25 mg Oral Tablet - take 1 tablet ORAL route once daily; 20 tablet; Refills: 0, Product Selection keaton Permitted - levofloxacin 750 mg Oral tablet - take 1 tablet ORAL route once daily; 6 tablet; Refills: 0, Product Selection keaton Permitted Signatures: Dispatcher [employer] EDMS Maxime Rainey MD MD cha Williams, Irene, RN RN iw Magan Murray RN RN rs5 Corrections: (The following items were deleted from the chart) 10:53 10:53 CBC+H.LAB.BRZ ordered. EDMS EDMS 10:53 10:53 COMPREHENSIVE METABOLIC PANEL+C.LAB.BRZ ordered. EDMS EDMS 10:53 10:53 THYROID STIMULAT HORMONE+C.LAB.BRZ ordered. EDMS EDMS 10:53 10:53 Urinalysis+U.LAB.BRZ ordered. EDMS EDMS 10:53 10:53 Test, Urine+UC.LAB.BRZ ordered. EDMS EDMS 10:53 10:53 Troponin High Sensitivity+C.LAB.BRZ ordered. EDMS EDMS 12:27 12:27 Urine Culture+BA.LAB.BRZ ordered. EDMS EDMS 13:04 13:03 AZITHromycin PO 500 mg PO once ordered. keaton keaton
--- NOTE | 2024-02-10 12:57 | RAD REPORT ---
EXAM DESCRIPTION: CT - Chest For Pe Angio - 02/10/2024 12:39 pm CLINICAL HISTORY: Chest pain. DYSPNEA COMPARISON: No comparisons TECHNIQUE: CT angiogram of the pulmonary arteries was performed with MIP. All CT scans are performed using dose optimization technique as appropriate and may include automated exposure control or mA/KV adjustment according to patient size. FINDINGS: No evidence of pulmonary thromboembolism. No acute aortic finding demonstrated. Small opacity seen in the right lung base which may be mild atelectasis or slight developing infiltra te. No significant pericardial or pleural fluid. No concerning bony finding. IMPRESSION: No evidence of pulmonary thromboembolism. Small opacity in the right lung base may be atelectasis or early infiltrate.
[2024-02-10] MEDS ORDERED: levoFLOXacin 750 MG TAB ONE (13:09)
--- NOTE | 2024-02-10 13:12 | RAD REPORT ---
EXAM DESCRIPTION: US - Extrem Venous W Compress Vipul - 02/10/2024 12:59 pm CLINICAL HISTORY: PAIN Bilateral leg edema and swelling. COMPARISON: Extrem Venous W Compress Vipul dated 05/09/2022 TECHNIQUE: Real-time sonographic interrogation of the left and right lower extremity deep venous sys tems was performed. FINDINGS: Normal compressibility, flow augmentation, phasic flow and spontaneous flow is identified in both the left and right lower extremity deep venous systems. IMPRESSION: No sonographic evidence of left or right lower extremity deep venous thrombosis.
[2024-02-10 13:21] VITALS: TEMP 98
[2024-02-10 13:22] VITALS: BP 112/75; O2SAT 99
--- OUTSIDE RECORDS SUMMARY | 2024-02-11 09:39 | XMS REPORT | Continuity of Care Document ---
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 18:45: 00 11-25 18:57 :00 No 25mg 25 mg, IV Piggyback, ONCE, 1 dose, On Wed11/25/22 at 1345, 50 mL [facility] NaCl 0.9% (NS) IV infusion 1,000 mL 11-25 18:30: 00 11-25 19:46 :00 No 1000mL at 150 mL/hr, IV Infusion, ONCE, 1 dose, On Wed11/25/22 at 1330, Routine [facility] vit/iron fum/folic ac ( 1 + 1 ORAL) 11-25 17:10: 14 Yes Take by mouth. [facility] levothyroxi ne 137 mcg tablet 11-25 17:10: 14 Yes 1 tablet in the morning on an empty stomach [facility] vit/iron fum/folic ac ( 1 + 1 ORAL) 11-19 13:54: 14 Yes Take by mouth. [facility] levothyroxi ne 137 mcg tablet 11-19 13:54: 14 Yes 1 tablet in the morning on an empty stomach [facility] vit/iron fum/folic ac ( 1 + 1 ORAL) 11-02 10:45: 21 Yes Take by mouth. [facility] levothyroxi ne 137 mcg tablet 11-02 10:45: 21 Yes 1 tablet in the morning on an empty stomach [facility] Blood-Gluco se Meter Kit 10-29 00:00: 00 12-31 00:00 :00 No Check glucose 4 times a day. [facility] blood sugar diagnostic (BLOOD GLUCOSE TEST) strip 10-29 00:00: 00 12-31 00:00 :00 No Check gluocose 4 times a day [facility] Lancets Misc 10-29 00:00: 00 12-31 00:00 :00 No Check glucose 4 times a day [facility] Alcohol Swabs (ALCOHOL PADS) PadM 5-04 00:00: 00 12-31 00:00 :00 No Apply to area(s) 4 (four) times daily. [facility] ondansetron 8 mg disintegrat ing tablet 28 00:00: 00 12-31 00:00 :00 No [id number] 8mg Take 1 tablet by mouth every 8 (eight) hours as needed for Nausea and Vomiting (N/V). [facility] vit/iron fum/folic ac ( 1 + 1 ORAL) 16 15:03: 55 Yes Take by mouth. [facility] levothyroxi ne 137 mcg tablet 10-11 15:03: 55 Yes 1 tablet in the morning on an empty stomach [facility] Levothyroxi ne 137 mcg Cap 10-09 15:27: 26 10-09 00:00 :00 No Take by mouth. [facility] DULoxetine (CYMBALTA) 30 mg capsule 10-09 15:27: 05 10-09 00:00 :00 No 30mg Take 30 mg by mouth in the morning. [facility] magnesium oxide 400 mg (241.3 mg magnesium) tablet 10-09 00:00: 00 12-31 00:00 :00 No [id number] 400mg Take 1 tablet by mouth in the morning. [facility] DULoxetine 60 mg capsule 12 00:00: 00 01-26 00:00 :00 No [facility] acetaminoph en (TYLENOL) tablet 650 mg 09-26 02:33: 09 Yes 650mg 650 mg, Oral, Q6HPRN, Starting on Wed09/25/22 at 2133, Until Discontinu ed, Routine, Pain (scale 4-6) [facility] Levothyroxi ne 137 mcg Cap 09-25 23:25: 16 Yes Take by mouth. [facility] vit/iron fum/folic ac ( 1 + 1 ORAL) 09-25 23:25: 16 Yes Take by mouth. [facility] DULoxetine (CYMBALTA) 30 mg capsule 09-25 23:25: 16 Yes 30mg Take 30 mg by mouth in the morning. [facility] Levothyroxi ne 137 mcg Cap 09-02 22:30: 50 Yes Take by mouth. [facility] vit/iron fum/folic ac ( 1 + 1 ORAL) 09-02 22:30: 50 Yes Take by mouth. [facility] DULoxetine (CYMBALTA) 30 mg capsule 09-02 22:30: 50 Yes 30mg Take 30 mg by mouth in the morning. [facility] vit/iron fum/folic ac ( 1 + 1 ORAL) 02-09 15:42: 19 Yes Take by mouth. [facility] DULoxetine (CYMBALTA) 30 mg capsule 02-09 15:42: 19 Yes 30mg Take 30 mg by mouth in the morning. [facility] Levothyroxi ne 137 mcg Cap 02-05 14:46: 02 Yes Take by mouth. [facility] norethindro ne (ORTHO MICRONOR) 0.35 mg tablet 10-24 00:00: 00 02-05 00:00 :00 No [id number] .35mg Take 1 tablet by mouth daily for 336 days. [facility] Cyclobenzap rine Hcl (Flexeril) 5 Mg TAB 01-30 19:37: 00 No 5mg Three Times A Day as needed for Muscle Tension [facility] Dicyclomine Hcl (Bentyl) 10 Mg CAP 01-29 15:57: 00 No 10mg Four Times Daily as needed for Abdominal Cramps [facility] Ondansetron Hcl (Zofran Odt) 4 Mg TAB.RAPDIS 01-29 15:57: 00 No 4mg Every 8 Hours as needed for Nausea / Vomiting [facility] Nystatin (Nystatin Liq) 100,000 Unit/1 Ml ORAL.SUSP 2019-0 18 07:38: 00 No [id number] Four Times Daily [facility] Omeprazole (Prilosec) 40 Mg CPDR No 40mg [facility] Ordered Immunization Name Filled Immunization Name Date Status Comments Source Rho (d) Immune Globulin 2022-12-10 00:00:00 Completed [facility] Rho (d) Immune Globulin 2022-12-10 00:00:00 Completed [facility] Rho (d) Immune Globulin 2022-12-10 00:00:00 Completed [facility] Rho (d) Immune Globulin 2022-12-10 00:00:00 Completed [facility] Rho (d) Immune Globulin 2022-12-10 00:00:00 Completed [facility] Rho (d) Immune Globulin 2022-12-10 00:00:00 Completed [facility] Rho (d) Immune Globulin 2022-12-10 00:00:00 Completed [facility] Rho (d) Immune Globulin 2022-12-10 00:00:00 Completed [facility] Rho (d) Immune Globulin 2022-12-10 00:00:00 Completed [facility] Rho (d) Immune Globulin 2022-12-10 00:00:00 Completed [facility] Rho (d) Immune Globulin 2022-12-10 00:00:00 Completed [facility] Rho (d) Immune Globulin 2022-12-10 00:00:00 Completed [facility] Rho (d) Immune Globulin 2022-12-10 00:00:00 Completed [facility] TDAP 2022-10-23 00:00:00 Completed [facility] Rho (d) Immune Globulin 2022-10-23 00:00:00 Completed [facility] TDAP 2022-10-23 00:00:00 Completed [facility] Rho (d) Immune Globulin 2022-10-23 00:00:00 Completed [facility] TDAP 2022-10-23 00:00:00 Completed [facility] Rho (d) Immune Globulin 2022-10-23 00:00:00 Completed [facility] TDAP 2022-10-23 00:00:00 Completed [facility] Rho (d) Immune Globulin 2022-10-23 00:00:00 Completed [facility] TDAP 2022-10-23 00:00:00 Completed [facility] Rho (d) Immune Globulin 2022-10-23 00:00:00 Completed [facility] TDAP 2022-10-23 00:00:00 Completed [facility] Rho (d) Immune Globulin 2022-10-23 00:00:00 Completed [facility] TDAP 2022-10-23 00:00:00 Completed [facility] Rho (d) Immune Globulin 2022-10-23 00:00:00 Completed [facility] TDAP 2022-10-23 00:00:00 Completed [facility] Rho (d) Immune Globulin 2022-10-23 00:00:00 Completed [facility] TDAP 2022-10-23 00:00:00 Completed [facility] Rho (d) Immune Globulin 2022-10-23 00:00:00 Completed [facility] TDAP 2022-10-23 00:00:00 Completed [facility] Rho (d) Immune Globulin 2022-10-23 00:00:00 Completed [facility] TDAP 2022-10-23 00:00:00 Completed [facility] Rho (d) Immune Globulin 2022-10-23 00:00:00 Completed [facility] TDAP 2022-10-23 00:00:00 Completed [facility] Rho (d) Immune Globulin 2022-10-23 00:00:00 Completed [facility] TDAP 2022-10-23 00:00:00 Completed [facility] Rho (d) Immune Globulin 2022-10-23 00:00:00 Completed [facility] TDAP 2022-10-23 00:00:00 Completed [facility] Rho (d) Immune Globulin 2022-10-23 00:00:00 Completed [facility] TDAP 2022-10-23 00:00:00 Completed [facility] Rho (d) Immune Globulin 2022-10-23 00:00:00 Completed [facility] TDAP 2022-10-23 00:00:00 Completed [facility] Rho (d) Immune Globulin 2022-10-23 00:00:00 Completed [facility] TDAP 2022-10-23 00:00:00 Completed [facility] Rho (d) Immune Globulin 2022-10-23 00:00:00 Completed [facility] TDAP 2022-10-23 00:00:00 Completed [facility] Rho (d) Immune Globulin 2022-10-23 00:00:00 Completed [facility] TDAP 2022-10-23 00:00:00 Completed [facility] Rho (d) Immune Globulin 2022-10-23 00:00:00 Completed [facility] TDAP 2022-10-23 00:00:00 Completed [facility] Rho (d) Immune Globulin 2022-10-23 00:00:00 Completed [facility] TDAP 2022-10-23 00:00:00 Completed [facility] Rho (d) Immune Globulin 2022-10-23 00:00:00 Completed [facility] TDAP 2022-10-23 00:00:00 Completed [facility] Rho (d) Immune Globulin 2022-10-23 00:00:00 Completed [facility] TDAP 2022-10-23 00:00:00 Completed [facility] Rho (d) Immune Globulin 2022-10-23 00:00:00 Completed [facility] TDAP 2022-10-23 00:00:00 Completed [facility] Rho (d) Immune Globulin 2022-10-23 00:00:00 Completed [facility] TDAP 2022-10-23 00:00:00 Completed [facility] Rho (d) Immune Globulin 2022-10-23 00:00:00 Completed [facility] TDAP 2022-10-23 00:00:00 Completed [facility] Rho (d) Immune Globulin 2022-10-23 00:00:00 Completed [facility] TDAP 2022-10-23 00:00:00 Completed [facility] Rho (d) Immune Globulin 2022-10-23 00:00:00 Completed [facility] TDAP 2022-10-23 00:00:00 Completed [facility] Rho (d) Immune Globulin 2022-10-23 00:00:00 Completed [facility] TDAP 2022-10-23 00:00:00 Completed [facility] Rho (d) Immune Globulin 2022-10-23 00:00:00 Completed [facility] TDAP 2022-10-23 00:00:00 Completed [facility] Rho (d) Immune Globulin 2022-10-23 00:00:00 Completed [facility] TDAP 2022-10-23 00:00:00 Completed [facility] Rho (d) Immune Globulin 2022-10-23 00:00:00 Completed [facility] TDAP 2022-10-23 00:00:00 Completed [facility] Rho (d) Immune Globulin 2022-10-23 00:00:00 Completed [facility] TDAP 2022-10-23 00:00:00 Completed [facility] Rho (d) Immune Globulin 2022-10-23 00:00:00 Completed [facility] TDAP 2022-10-23 00:00:00 Completed [facility] Rho (d) Immune Globulin 2022-10-23 00:00:00 Completed [facility] TDAP 2022-10-23 00:00:00 Completed [facility] Rho (d) Immune Globulin 2022-10-23 00:00:00 Completed [facility] TDAP 2022-10-23 00:00:00 Completed [facility] Rho (d) Immune Globulin 2022-10-23 00:00:00 Completed [facility] TDAP 2022-10-23 00:00:00 Completed [facility] Rho (d) Immune Globulin 2022-10-23 00:00:00 Completed [facility] TDAP 2022-10-23 00:00:00 Completed [facility] Rho (d) Immune Globulin 2022-10-23 00:00:00 Completed [facility] TDAP 2022-10-23 00:00:00 Completed [facility] Rho (d) Immune Globulin 2022-10-23 00:00:00 Completed [facility] TDAP 2022-10-23 00:00:00 Completed [facility] Rho (d) Immune Globulin 2022-10-23 00:00:00 Completed [facility] TDAP 2022-10-23 00:00:00 Completed [facility] Rho (d) Immune Globulin 2022-10-23 00:00:00 Completed [facility] TDAP 2022-10-23 00:00:00 Completed [facility] Rho (d) Immune Globulin 2022-10-23 00:00:00 Completed [facility] SARS-COV-2 COVID-19 MODERNA 12+ YRS VACCINE 2021-02-25 00:00:00 Completed [facility] SARS-COV-2 COVID-19 MODERNA 12+ YRS VACCINE 2021-02-25 00:00:00 Completed [facility] SARS-COV-2 COVID-19 MODERNA 12+ YRS VACCINE 2021-02-25 00:00:00 Completed [facility] SARS-COV-2 COVID-19 MODERNA 12+ YRS VACCINE 2021-02-25 00:00:00 Completed [facility] SARS-COV-2 COVID-19 MODERNA 12+ YRS VACCINE 2021-02-25 00:00:00 Completed [facility] SARS-COV-2 COVID-19 MODERNA 12+ YRS VACCINE 2021-02-25 00:00:00 Completed [facility] SARS-COV-2 COVID-19 MODERNA 12+ YRS VACCINE 2021-02-25 00:00:00 Completed [facility] SARS-COV-2 COVID-19 MODERNA 12+ YRS VACCINE 2021-02-25 00:00:00 Completed [facility] SARS-COV-2 COVID-19 MODERNA 12+ YRS VACCINE 2021-02-25 00:00:00 Completed [facility] SARS-COV-2 COVID-19 MODERNA VACCINE 2021-02-25 00:00:00 Completed [facility] SARS-COV-2 COVID-19 MODERNA 12+ YRS VACCINE 2021-02-25 00:00:00 Completed [facility] SARS-COV-2 COVID-19 MODERNA 12+ YRS VACCINE 2021-02-25 00:00:00 Completed [facility] SARS-COV-2 COVID-19 MODERNA 12+ YRS VACCINE 2021-02-25 00:00:00 Completed [facility] SARS-COV-2 COVID-19 MODERNA 12+ YRS VACCINE 2021-02-25 00:00:00 Completed [facility] SARS-COV-2 COVID-19 MODERNA VACCINE 2021-02-25 00:00:00 Completed [facility] SARS-COV-2 COVID-19 MODERNA 12+ YRS VACCINE 2021-02-25 00:00:00 Completed [facility] SARS-COV-2 COVID-19 MODERNA 12+ YRS VACCINE 2021-02-25 00:00:00 Completed [facility] SARS-COV-2 COVID-19 MODERNA VACCINE 2021-02-25 00:00:00 Completed [facility] SARS-COV-2 COVID-19 MODERNA VACCINE 2021-02-25 00:00:00 Completed [facility] SARS-COV-2 COVID-19 MODERNA 12+ YRS VACCINE 2021-02-25 00:00:00 Completed [facility] SARS-COV-2 COVID-19 MODERNA 12+ YRS VACCINE 2021-02-25 00:00:00 Completed [facility] SARS-COV-2 COVID-19 MODERNA 12+ YRS VACCINE 2021-02-25 00:00:00 Completed [facility] SARS-COV-2 COVID-19 MODERNA 12+ YRS VACCINE 2021-02-25 00:00:00 Completed [facility] SARS-COV-2 COVID-19 MODERNA 12+ YRS VACCINE 2021-02-25 00:00:00 Completed [facility] SARS-COV-2 COVID-19 MODERNA 12+ YRS VACCINE 2021-02-25 00:00:00 Completed [facility] SARS-COV-2 COVID-19 MODERNA 12+ YRS VACCINE 2021-02-25 00:00:00 Completed [facility] SARS-COV-2 COVID-19 MODERNA 12+ YRS VACCINE 2021-02-25 00:00:00 Completed [facility] SARS-COV-2 COVID-19 MODERNA 12+ YRS VACCINE 2021-02-25 00:00:00 Completed [facility] SARS-COV-2 COVID-19 MODERNA 12+ YRS VACCINE 2021-02-25 00:00:00 Completed [facility] SARS-COV-2 COVID-19 MODERNA 12+ YRS VACCINE 2021-02-25 00:00:00 Completed [facility] SARS-COV-2 COVID-19 MODERNA 12+ YRS VACCINE 2021-02-25 00:00:00 Completed [facility] SARS-COV-2 COVID-19 MODERNA 12+ YRS VACCINE 2021-02-25 00:00:00 Completed [facility] SARS-COV-2 COVID-19 MODERNA 12+ YRS VACCINE 2021-02-25 00:00:00 Completed [facility] SARS-COV-2 COVID-19 MODERNA 12+ YRS VACCINE 2021-02-25 00:00:00 Completed [facility] SARS-COV-2 COVID-19 MODERNA 12+ YRS VACCINE 2021-02-25 00:00:00 Completed [facility] SARS-COV-2 COVID-19 MODERNA 12+ YRS VACCINE 2021-02-25 00:00:00 Completed [facility] SARS-COV-2 COVID-19 MODERNA 12+ YRS VACCINE 2021-02-25 00:00:00 Completed [facility] SARS-COV-2 COVID-19 MODERNA 12+ YRS VACCINE 2021-02-25 00:00:00 Completed [facility] SARS-COV-2 COVID-19 MODERNA 12+ YRS VACCINE 2021-02-25 00:00:00 Completed [facility] SARS-COV-2 COVID-19 MODERNA 12+ YRS VACCINE 2021-02-25 00:00:00 Completed [facility] SARS-COV-2 COVID-19 MODERNA 12+ YRS VACCINE 2021-02-25 00:00:00 Completed [facility] SARS-COV-2 COVID-19 MODERNA 12+ YRS VACCINE 2021-02-25 00:00:00 Completed [facility] SARS-COV-2 COVID-19 MODERNA 12+ YRS VACCINE 2021-02-25 00:00:00 Completed [facility] SARS-COV-2 COVID-19 MODERNA 12+ YRS VACCINE 2021-02-25 00:00:00 Completed [facility] SARS-COV-2 COVID-19 MODERNA 12+ YRS VACCINE 2021-02-25 00:00:00 Completed [facility] SARS-COV-2 COVID-19 MODERNA 12+ YRS VACCINE 2021-02-25 00:00:00 Completed [facility] SARS-COV-2 COVID-19 MODERNA 12+ YRS VACCINE 2021-02-25 00:00:00 Completed [facility] SARS-COV-2 COVID-19 MODERNA 12+ YRS VACCINE 2021-02-25 00:00:00 Completed [facility] SARS-COV-2 COVID-19 MODERNA 12+ YRS VACCINE 2021-02-25 00:00:00 Completed [facility] SARS-COV-2 COVID-19 MODERNA 12+ YRS VACCINE 2021-02-25 00:00:00 Completed [facility] SARS-COV-2 COVID-19 MODERNA 12+ YRS VACCINE 2021-02-25 00:00:00 Completed [facility] SARS-COV-2 COVID-19 MODERNA 12+ YRS VACCINE 2021-02-25 00:00:00 Completed [facility] SARS-COV-2 COVID-19 MODERNA 12+ YRS VACCINE 2021-02-25 00:00:00 Completed [facility] SARS-COV-2 COVID-19 MODERNA 12+ YRS VACCINE 2021-02-25 00:00:00 Completed [facility] SARS-COV-2 COVID-19 MODERNA 12+ YRS VACCINE 2021-02-25 00:00:00 Completed [facility] SARS-COV-2 COVID-19 MODERNA 12+ YRS VACCINE 2021-02-25 00:00:00 Completed [facility] SARS-COV-2 COVID-19 MODERNA 12+ YRS VACCINE Unknown Completed [facility] TDAP Unknown Completed [facility] Rho (d) Immune Globulin Unknown Completed [facility] Rho (d) Immune Globulin Unknown Completed [facility] Influenza Virus Vaccine Quad IM, Preserv and ABX Free 6 MO-64 YRS (FLUCELVAX) Unknown Completed [facility] SARS-COV-2 COVID-19 MODERNA 12+ YRS VACCINE Unknown Completed [facility] TDAP Unknown Completed [facility] Rho (d) Immune Globulin Unknown Completed [facility] Rho (d) Immune Globulin Unknown Completed [facility] Influenza Virus Vaccine Quad IM, Preserv and ABX Free 6 MO-64 YRS (FLUCELVAX) Unknown Completed [facility] SARS-COV-2 COVID-19 VACCINE - (MODERNA) Unknown [facility] SARS-COV-2 COVID-19 MODERNA 12+ YRS VACCINE Unknown Completed [facility] TDAP Unknown Completed [facility] Rho (d) Immune Globulin Unknown Completed [facility] Rho (d) Immune Globulin Unknown Completed [facility] Influenza Virus Vaccine Quad IM, Preserv and ABX Free 6 MO-64 YRS (FLUCELVAX) Unknown Completed [facility] SARS-COV-2 COVID-19 VACCINE - (MODERNA) Unknown Completed [facility] SARS-COV-2 COVID-19 MODERNA 12+ YRS VACCINE Unknown Completed [facility] TDAP Unknown Completed [facility] Rho (d) Immune Globulin Unknown Completed [facility] Rho (d) Immune Globulin Unknown Completed [facility] Influenza Virus Vaccine Quad IM, Preserv and ABX Free 6 MO-64 YRS (FLUCELVAX) Unknown [facility] [facility]2 COVID-19 VACCINE - (MODERNA) Unknown Completed [facility] SARS-COV-2 COVID-19 MODERNA 12+ YRS VACCINE Unknown Completed [facility] TDAP Unknown Completed [facility] Rho (d) Immune Globulin Unknown Completed [facility] Rho (d) Immune Globulin Unknown Completed [facility] Influenza Virus Vaccine Quad IM, Preserv and ABX Free 6 MO-64 YRS (FLUCELVAX) Unknown Completed [facility] SARS-COV-2 COVID-19 VACCINE - (MODERNA) Unknown Completed [facility] SARS-COV-2 COVID-19 MODERNA 12+ YRS VACCINE Unknown Completed [facility] TDAP Unknown Completed [facility] Rho (d) Immune Globulin Unknown Completed [facility] Rho (d) Immune Globulin Unknown Completed [facility] Influenza Virus Vaccine Quad IM, Preserv and ABX Free 6 MO-64 YRS (FLUCELVAX) Unknown Completed [facility] SARS-COV-2 COVID-19 VACCINE - (MODERNA) Unknown Completed [facility] SARS-COV-2 COVID-19 MODERNA 12+ YRS VACCINE Unknown Completed [facility] TDAP Unknown Completed [facility] Rho (d) Immune Globulin Unknown Completed [facility] Rho (d) Immune Globulin Unknown Completed [facility] Influenza Virus Vaccine Quad IM, Preserv and ABX Free 6 MO-64 YRS (FLUCELVAX) Unknown Completed [facility] SARS-COV-2 COVID-19 VACCINE - (MODERNA) Unknown Completed [facility] SARS-COV-2 COVID-19 MODERNA 12+ YRS VACCINE Unknown Completed [facility] TDAP Unknown Completed [facility] Rho (d) Immune Globulin Unknown Completed [facility] Rho (d) Immune Globulin Unknown Completed [facility] Influenza Virus Vaccine Quad IM, Preserv and ABX Free 6 MO-64 YRS (FLUCELVAX) Unknown Completed [facility] SARS-COV-2 COVID-19 VACCINE - (MODERNA) Unknown Completed [facility] SARS-COV-2 COVID-19 MODERNA 12+ YRS VACCINE Unknown Completed [facility] TDAP Unknown Completed [facility] Rho (d) Immune Globulin Unknown Completed [facility] Rho (d) Immune Globulin Unknown Completed [facility] Influenza Virus Vaccine Quad IM, Preserv and ABX Free 6 MO-64 YRS (FLUCELVAX) Unknown Completed [facility] SARS-COV-2 COVID-19 VACCINE - (MODERNA) Unknown Completed [facility] SARS-COV-2 COVID-19 MODERNA 12+ YRS VACCINE Unknown Completed [facility] TDAP Unknown Completed [facility] Rho (d) Immune Globulin Unknown Completed [facility] Rho (d) Immune Globulin Unknown Completed [facility] Influenza Virus Vaccine Quad IM, Preserv and ABX Free 6 MO-64 YRS (FLUCELVAX) Unknown Completed [facility] SARS-COV-2 COVID-19 VACCINE - (MODERNA) Unknown Completed [facility] SARS-COV-2 COVID-19 MODERNA 12+ YRS VACCINE Unknown Completed [facility] TDAP Unknown Completed [facility] Rho (d) Immune Globulin Unknown Completed [facility] Rho (d) Immune Globulin Unknown Completed [facility] Influenza Virus Vaccine Quad IM, Preserv and ABX Free 6 MO-64 YRS (FLUCELVAX) Unknown Completed [facility] SARS-COV-2 COVID-19 VACCINE - (MODERNA) Unknown Completed [facility] SARS-COV-2 COVID-19 MODERNA 12+ YRS VACCINE Unknown Completed [facility] TDAP Unknown Completed [facility] Rho (d) Immune Globulin Unknown Completed [facility] Rho (d) Immune Globulin Unknown Completed [facility] Influenza Virus Vaccine Quad IM, Preserv and ABX Free 6 MO-64 YRS (FLUCELVAX) Unknown Completed [facility] SARS-COV-2 COVID-19 VACCINE - (MODERNA) Unknown Completed [facility] SARS-COV-2 COVID-19 MODERNA 12+ YRS VACCINE Unknown Completed [facility] TDAP Unknown Completed [facility] Rho (d) Immune Globulin Unknown Completed [facility] Rho (d) Immune Globulin Unknown Completed [facility] Influenza Virus Vaccine Quad IM, Preserv and ABX Free 6 MO-64 YRS (FLUCELVAX) Unknown Completed [facility] SARS-COV-2 COVID-19 VACCINE - (MODERNA) Unknown Completed [facility] SARS-COV-2 COVID-19 MODERNA 12+ YRS VACCINE Unknown Completed [facility] TDAP Unknown Completed [facility] Rho (d) Immune Globulin Unknown Completed [facility] Rho (d) Immune Globulin Unknown Completed [facility] Influenza Virus Vaccine Quad IM, Preserv and ABX Free 6 MO-64 YRS (FLUCELVAX) Unknown Completed [facility] SARS-COV-2 COVID-19 VACCINE - (MODERNA) Unknown Completed [facility] SARS-COV-2 COVID-19 MODERNA 12+ YRS VACCINE Unknown Completed [facility] TDAP Unknown Completed [facility] Rho (d) Immune Globulin Unknown Completed [facility] Rho (d) Immune Globulin Unknown Completed [facility] Influenza Virus Vaccine Quad IM, Preserv and ABX Free 6 MO-64 YRS (FLUCELVAX) Unknown Completed [facility] SARS-COV-2 COVID-19 VACCINE - (MODERNA) Unknown Completed [facility] SARS-COV-2 COVID-19 MODERNA 12+ YRS VACCINE Unknown Completed [facility] TDAP Unknown Completed [facility] Rho (d) Immune Globulin Unknown Completed [facility] Rho (d) Immune Globulin Unknown Completed [facility] Influenza Virus Vaccine Quad IM, Preserv and ABX Free 6 MO-64 YRS (FLUCELVAX) Unknown Completed [facility] SARS-COV-2 COVID-19 VACCINE - (MODERNA) Unknown Completed [facility] SARS-COV-2 COVID-19 MODERNA 12+ YRS VACCINE Unknown Completed [facility] TDAP Unknown Completed [facility] Rho (d) Immune Globulin Unknown Completed [facility] Rho (d) Immune Globulin Unknown Completed [facility] Influenza Virus Vaccine Quad IM, Preserv and ABX Free 6 MO-64 YRS (FLUCELVAX) Unknown Completed [facility] SARS-COV-2 COVID-19 VACCINE - (MODERNA) Unknown Completed [facility] SARS-COV-2 COVID-19 MODERNA 12+ YRS VACCINE Unknown Completed [facility] TDAP Unknown Completed [facility] Rho (d) Immune Globulin Unknown Completed [facility] Rho (d) Immune Globulin Unknown Completed [facility] Influenza Virus Vaccine Quad IM, Preserv and ABX Free 6 MO-64 YRS (FLUCELVAX) Unknown Completed [facility] SARS-COV-2 COVID-19 VACCINE - (MODERNA) Unknown Completed [facility] SARS-COV-2 COVID-19 MODERNA 12+ YRS VACCINE Unknown Completed [facility] TDAP Unknown Completed [facility] Rho (d) Immune Globulin Unknown Completed [facility] Rho (d) Immune Globulin Unknown Completed [facility] Influenza Virus Vaccine Quad IM, Preserv and ABX Free 6 MO-64 YRS (FLUCELVAX) Unknown Completed [facility] SARS-COV-2 COVID-19 VACCINE - (MODERNA) Unknown Completed [facility] SARS-COV-2 COVID-19 MODERNA 12+ YRS VACCINE Unknown Completed [facility] TDAP Unknown Completed [facility] Rho (d) Immune Globulin Unknown Completed [facility] Rho (d) Immune Globulin Unknown Completed [facility] Influenza Virus Vaccine Quad IM, Preserv and ABX Free 6 MO-64 YRS (FLUCELVAX) Unknown Completed [facility] SARS-COV-2 COVID-19 VACCINE - (MODERNA) Unknown Completed [facility] SARS-COV-2 COVID-19 MODERNA 12+ YRS VACCINE Unknown Completed [facility] TDAP Unknown Completed [facility] Rho (d) Immune Globulin Unknown Completed [facility] Rho (d) Immune Globulin Unknown Completed [facility] Influenza Virus Vaccine Quad IM, Preserv and ABX Free 6 MO-64 YRS (FLUCELVAX) Unknown Completed [facility] SARS-COV-2 COVID-19 VACCINE - (MODERNA) Unknown Completed [facility] SARS-COV-2 COVID-19 MODERNA 12+ YRS VACCINE Unknown Completed [facility] TDAP Unknown Completed [facility] Rho (d) Immune Globulin Unknown Completed [facility] Rho (d) Immune Globulin Unknown Completed [facility] Influenza Virus Vaccine Quad IM, Preserv and ABX Free 6 MO-64 YRS (FLUCELVAX) Unknown Completed [facility] SARS-COV-2 COVID-19 [facility]ACCINE - [facility]MOD[facility]NA) [facility] 12+ YRS VACCINE Unknown Completed [facility] TDAP Unknown Completed [facility] Rho (d) Immune Globulin Unknown Completed [facility] Rho (d) Immune Globulin Unknown Completed [facility] Influenza Virus Vaccine Quad IM, Preserv and ABX Free 6 MO-64 YRS (FLUCELVAX) Unknown Completed [facility] SARS-COV-2 COVID-19 VACCINE - (MODERNA) Unknown Completed [facility] SARS-COV-2 COVID-19 MODERNA 12+ YRS VACCINE Unknown Completed [facility] TDAP Unknown Completed [facility] Rho (d) Immune Globulin Unknown Completed [facility] Rho (d) Immune Globulin Unknown Completed [facility] Influenza Virus Vaccine Quad IM, Preserv and ABX Free 6 MO-64 YRS (FLUCELVAX) Unknown Completed [facility] SARS-COV-2 COVID-19 VACCINE - (MODERNA) Unknown Completed [facility] SARS-COV-2 COVID-19 MODERNA 12+ YRS VACCINE Unknown Completed [facility] TDAP Unknown Completed [facility] Rho (d) Immune Globulin Unknown Completed [facility] Rho (d) Immune Globulin Unknown Completed [facility] Influenza Virus Vaccine Quad IM, Preserv and ABX Free 6 MO-64 YRS (FLUCELVAX) Unknown Completed [facility] SARS-COV-2 COVID-19 VACCINE - (MODERNA) Unknown Completed [facility] SARS-COV-2 COVID-19 MODERNA 12+ YRS VACCINE Unknown Completed [facility] TDAP Unknown Completed [facility] Rho (d) Immune Globulin Unknown Completed [facility] Rho (d) Immune Globulin Unknown Completed [facility] Influenza Virus Vaccine Quad IM, Preserv and ABX Free 6 MO-64 YRS (FLUCELVAX) Unknown Completed [facility] SARS-COV-2 COVID-19 VACCINE - (MODERNA) Unknown Completed [facility] SARS-COV-2 COVID-19 MODERNA 12+ YRS VACCINE Unknown Completed [facility] TDAP Unknown Completed [facility] Rho (d) Immune Globulin Unknown Completed [facility] Rho (d) Immune Globulin Unknown Completed [facility] Influenza Virus Vaccine Quad IM, Preserv and ABX Free 6 MO-64 YRS (FLUCELVAX) Unknown Completed [facility] SARS-COV-2 COVID-19 VACCINE - (MODERNA) Unknown Completed [facility] SARS-COV-2 COVID-19 MODERNA 12+ YRS VACCINE Unknown Completed [facility] TDAP Unknown Completed [facility] Rho (d) Immune Globulin Unknown Completed [facility] Rho (d) Immune Globulin Unknown Completed [facility] Influenza Virus Vaccine Quad IM, Preserv and ABX Free 6 MO-64 YRS (FLUCELVAX) Unknown Completed [facility] SARS-COV-2 COVID-19 VACCINE - (MODERNA) Unknown Completed [facility] SARS-COV-2 COVID-19 MODERNA 12+ YRS VACCINE Unknown Completed [facility] TDAP Unknown Completed [facility] Rho (d) Immune Globulin Unknown Completed [facility] Rho (d) Immune Globulin Unknown Completed [facility] Influenza Virus Vaccine Quad IM, Preserv and ABX Free 6 MO-64 YRS (FLUCELVAX) Unknown Completed [facility] SARS-COV-2 COVID-19 VACCINE - (MODERNA) Unknown Completed [facility] SARS-COV-2 COVID-19 MODERNA 12+ YRS VACCINE Unknown Completed [facility] TDAP Unknown Completed [facility] Rho (d) Immune Globulin Unknown Completed [facility] Rho (d) Immune Globulin Unknown Completed [facility] Influenza Virus Vaccine Quad IM, Preserv and ABX Free 6 MO-64 YRS (FLUCELVAX) Unknown Completed [facility] SARS-COV-2 COVID-19 VACCINE - (MODERNA) Unknown Completed [facility] SARS-COV-2 COVID-19 MODERNA 12+ YRS VACCINE Unknown Completed [facility] TDAP Unknown Completed [facility] Rho (d) Immune Globulin Unknown Completed [facility] Rho (d) Immune Globulin Unknown Completed [facility] Influenza Virus Vaccine Quad IM, Preserv and ABX Free 6 MO-64 YRS (FLUCELVAX) Unknown Completed [facility] SARS-COV-2 COVID-19 VACCINE - (MODERNA) Unknown Completed [facility] SARS-COV-2 COVID-19 MODERNA 12+ YRS VACCINE Unknown Completed [facility] TDAP Unknown Completed [facility] Rho (d) Immune Globulin Unknown Completed [facility] Rho (d) Immune Globulin Unknown Completed [facility] Influenza Virus Vaccine Quad IM, Preserv and ABX Free 6 MO-64 YRS (FLUCELVAX) Unknown Completed [facility] SARS-COV-2 COVID-19 VACCINE - (MODERNA) Unknown Completed [facility] SARS-COV-2 COVID-19 MODERNA 12+ YRS VACCINE Unknown Completed [facility] TDAP Unknown Completed [facility] Rho (d) Immune Globulin Unknown Completed [facility] Rho (d) Immune Globulin Unknown Completed [facility] Influenza Virus Vaccine Quad IM, Preserv and ABX Free 6 MO-64 YRS (FLUCELVAX) Unknown Completed [facility] SARS-COV-2 COVID-19 VACCINE - (MODERNA) Unknown Completed [facility] SARS-COV-2 COVID-19 MODERNA 12+ YRS VACCINE Unknown Completed [facility] TDAP Unknown Completed [facility] Rho (d) Immune Globulin Unknown Completed [facility] Rho (d) Immune Globulin Unknown Completed [facility] Influenza Virus Vaccine Quad IM, Preserv and ABX Free 6 MO-64 YRS (FLUCELVAX) Unknown Completed [facility] SARS-COV-2 COVID-19 VACCINE - (MODERNA) Unknown Completed [facility] SARS-COV-2 COVID-19 MODERNA 12+ YRS VACCINE Unknown Completed [facility] TDAP Unknown Completed [facility] Rho (d) Immune Globulin Unknown Completed [facility] Rho (d) Immune Globulin Unknown Completed [facility] Influenza Virus Vaccine Quad IM, Preserv and ABX Free 6 MO-64 YRS (FLUCELVAX) Unknown Completed [facility] SARS-COV-2 COVID-19 VACCINE - (MODERNA) Unknown Completed [facility] SARS-COV-2 COVID-19 MODERNA 12+ YRS VACCINE Unknown Completed [facility] TDAP Unknown Completed [facility] Rho (d) Immune Globulin Unknown Completed [facility] Rho (d) Immune Globulin Unknown Completed [facility] Influenza Virus Vaccine Quad IM, Preserv and ABX Free 6 MO-64 YRS (FLUCELVAX) Unknown Completed [facility] SARS-COV-2 COVID-19 VACCINE - (MODERNA) Unknown Completed [facility] SARS-COV-2 COVID-19 MODERNA 12+ YRS VACCINE Unknown Completed [facility] TDAP Unknown Completed [facility] Rho (d) Immune Globulin Unknown Completed [facility] Rho (d) Immune Globulin Unknown Completed [facility] Influenza Virus Vaccine Quad IM, Preserv and ABX Free 6 MO-64 YRS (FLUCELVAX) Unknown Completed [facility] SARS-COV-2 COVID-19 VACCINE - (MODERNA) Unknown Completed [facility] SARS-COV-2 COVID-19 MODERNA 12+ YRS VACCINE Unknown Completed [facility] TDAP Unknown Completed [facility] Rho (d) Immune Globulin Unknown Completed [facility] Rho (d) Immune Globulin Unknown Completed [facility] Influenza Virus Vaccine Quad IM, Preserv and ABX Free 6 MO-64 YRS (FLUCELVAX) Unknown Completed [facility] SARS-COV-2 COVID-19 VACCINE - (MODERNA) Unknown Completed [facility] SARS-COV-2 COVID-19 MODERNA 12+ YRS VACCINE Unknown Completed [facility] TDAP Unknown Completed [facility] Rho (d) Immune Globulin Unknown Completed [facility] Rho (d) Immune Globulin Unknown Completed [facility] Influenza Virus Vaccine Quad IM, Preserv and ABX Free 6 MO-64 YRS (FLUCELVAX) Unknown Completed [facility] SARS-COV-2 COVID-19 VACCINE - (MODERNA) Unknown Completed [facility] SARS-COV-2 COVID-19 MODERNA 12+ YRS VACCINE Unknown Completed [facility] TDAP Unknown Completed [facility] Rho (d) Immune Globulin Unknown Completed [facility] Rho (d) Immune Globulin Unknown Completed [facility] Influenza Virus Vaccine Quad IM, Preserv and ABX Free 6 MO-64 YRS (FLUCELVAX) Unknown Completed [facility] SARS-COV-2 COVID-19 VACCINE - (MODERNA) Unknown Completed [facility] SARS-COV-2 COVID-19 MODERNA 12+ YRS VACCINE Unknown Completed [facility] TDAP Unknown Completed [facility] Rho (d) Immune Globulin Unknown Completed [facility] Rho (d) Immune Globulin Unknown Completed [facility] Influenza Virus Vaccine Quad IM, Preserv and ABX Free 6 MO-64 YRS (FLUCELVAX) Unknown Completed [facility] SARS-COV-2 COVID-19 VACCINE - (MODERNA) Unknown Completed [facility] SARS-COV-2 COVID-19 MODERNA 12+ YRS VACCINE Unknown Completed [facility] TDAP Unknown Completed [facility] Rho (d) Immune Globulin Unknown Completed [facility] Rho (d) Immune Globulin Unknown Completed [facility] Influenza Virus Vaccine Quad IM, Preserv and ABX Free 6 MO-64 YRS (FLUCELVAX) Unknown Completed [facility] SARS-COV-2 COVID-19 VACCINE - (MODERNA) Unknown Completed [facility] SARS-COV-2 COVID-19 MODERNA 12+ YRS VACCINE Unknown Completed [facility] TDAP Unknown Completed [facility] Rho (d) Immune Globulin Unknown Completed [facility] Rho (d) Immune Globulin Unknown Completed [facility] Influenza Virus Vaccine Quad IM, Preserv and ABX Free 6 MO-64 YRS (FLUCELVAX) Unknown Completed [facility] SARS-COV-2 COVID-19 VACCINE - (MODERNA) Unknown Completed [facility] SARS-COV-2 COVID-19 MODERNA 12+ YRS VACCINE Unknown Completed [facility] TDAP Unknown Completed [facility] Rho (d) Immune Globulin Unknown Completed [facility] Rho (d) Immune Globulin Unknown Completed [facility] Influenza Virus Vaccine Quad IM, Preserv and ABX Free 6 MO-64 YRS (FLUCELVAX) Unknown Completed [facility] SARS-COV-2 COVID-19 VACCINE - (MODERNA) Unknown Completed [facility] SARS-COV-2 COVID-19 MODERNA 12+ YRS VACCINE Unknown Completed [facility] TDAP Unknown Completed [facility] Rho (d) Immune Globulin Unknown Completed [facility] Rho (d) Immune Globulin Unknown Completed [facility] Influenza Virus Vaccine Quad IM, Preserv and ABX Free 6 MO-64 YRS (FLUCELVAX) Unknown Completed [facility] SARS-COV-2 COVID-19 VACCINE - (MODERNA) Unknown Completed [facility] SARS-COV-2 COVID-19 MODERNA 12+ YRS VACCINE Unknown Completed [facility] TDAP Unknown Completed [facility] Rho (d) Immune Globulin Unknown Completed [facility] Rho (d) Immune Globulin Unknown Completed [facility] Influenza Virus Vaccine Quad IM, Preserv and ABX Free 6 MO-64 YRS (FLUCELVAX) Unknown Completed [facility] SARS-COV-2 COVID-19 VACCINE - (MODERNA) Unknown Completed [facility] SARS-COV-2 COVID-19 MODERNA 12+ YRS VACCINE Unknown Completed [facility] TDAP Unknown Completed [facility] Rho (d) Immune Globulin Unknown Completed [facility] Rho (d) Immune Globulin Unknown Completed [facility] Influenza Virus Vaccine Quad IM, Preserv and ABX Free 6 MO-64 YRS (FLUCELVAX) Unknown Completed [facility] SARS-COV-2 COVID-19 VACCINE - (MODERNA) Unknown Completed [facility] SARS-COV-2 COVID-19 MODERNA 12+ YRS VACCINE Unknown Completed [facility] TDAP Unknown Completed [facility] Rho (d) Immune Globulin Unknown Completed [facility] Rho (d) Immune Globulin Unknown Completed [facility] Influenza Virus Vaccine Quad IM, Preserv and ABX Free 6 MO-64 YRS (FLUCELVAX) Unknown Completed [facility] SARS-COV-2 COVID-19 VACCINE - (MODERNA) Unknown Completed [facility] SARS-COV-2 COVID-19 MODERNA 12+ YRS VACCINE Unknown Completed [facility] TDAP Unknown Completed [facility] Rho (d) Immune Globulin Unknown Completed [facility] Rho (d) Immune Globulin Unknown Completed [facility] Influenza Virus Vaccine Quad IM, Preserv and ABX Free 6 MO-64 YRS (FLUCELVAX) Unknown Completed [facility] SARS-COV-2 COVID-19 VACCINE - (MODERNA) Unknown Completed [facility] SARS-COV-2 COVID-19 MODERNA 12+ YRS VACCINE Unknown Completed [facility] TDAP Unknown Completed [facility] Rho (d) Immune Globulin Unknown Completed [facility] Rho (d) Immune Globulin Unknown Completed [facility] Influenza Virus Vaccine Quad IM, Preserv and ABX Free 6 MO-64 YRS (FLUCELVAX) Unknown Completed [facility] SARS-COV-2 COVID-19 VACCINE - (MODERNA) Unknown Completed [facility] SARS-COV-2 COVID-19 MODERNA 12+ YRS VACCINE Unknown Completed [facility] TDAP Unknown Completed [facility] Rho (d) Immune Globulin Unknown Completed [facility] Rho (d) Immune Globulin Unknown Completed [facility] Influenza Virus Vaccine Quad IM, Preserv and ABX Free 6 MO-64 YRS (FLUCELVAX) Unknown Completed [facility] SARS-COV-2 COVID-19 VACCINE - (MODERNA) Unknown Completed [facility] SARS-COV-2 COVID-19 MODERNA 12+ YRS VACCINE Unknown Completed [facility] TDAP Unknown Completed [facility] Rho (d) Immune Globulin Unknown Completed [facility] Rho (d) Immune Globulin Unknown Completed [facility] Influenza Virus Vaccine Quad IM, Preserv and ABX Free 6 MO-64 YRS (FLUCELVAX) Unknown Completed [facility] SARS-COV-2 COVID-19 VACCINE - (MODERNA) Unknown Completed [facility] SARS-COV-2 COVID-19 MODERNA 12+ YRS VACCINE Unknown Completed [facility] TDAP Unknown Completed [facility] Rho (d) Immune Globulin Unknown Completed [facility] Rho (d) Immune Globulin Unknown Completed [facility] Influenza Virus Vaccine Quad IM, Preserv and ABX Free 6 MO-64 YRS (FLUCELVAX) Unknown Completed [facility] SARS-COV-2 COVID-19 VACCINE - (MODERNA) Unknown Completed [facility] SARS-COV-2 COVID-19 MODERNA 12+ YRS VACCINE Unknown Completed [facility] TDAP Unknown Completed [facility] Rho (d) Immune Globulin Unknown Completed [facility] Rho (d) Immune Globulin Unknown Completed [facility] Influenza Virus Vaccine Quad IM, Preserv and ABX Free 6 MO-64 YRS (FLUCELVAX) Unknown Completed [facility] SARS-COV-2 COVID-19 VACCINE - (MODERNA) Unknown Completed [facility] SARS-COV-2 COVID-19 MODERNA 12+ YRS VACCINE Unknown Completed [facility] TDAP Unknown Completed [facility] Rho (d) Immune Globulin Unknown Completed [facility] Rho (d) Immune Globulin Unknown Completed [facility] Influenza Virus Vaccine Quad IM, Preserv and ABX Free 6 MO-64 YRS (FLUCELVAX) Unknown Completed [facility] SARS-COV-2 COVID-19 VACCINE - (MODERNA) Unknown Completed [facility] SARS-COV-2 COVID-19 MODERNA 12+ YRS VACCINE Unknown Completed [facility] TDAP Unknown Completed [facility] Rho (d) Immune Globulin Unknown Completed [facility] Rho (d) Immune Globulin Unknown Completed [facility] Influenza Virus Vaccine Quad IM, Preserv and ABX Free 6 MO-64 YRS (FLUCELVAX) Unknown Completed [facility] SARS-COV-2 COVID-19 VACCINE - (MODERNA) Unknown Completed [facility] SARS-COV-2 COVID-19 MODERNA 12+ YRS VACCINE Unknown Completed [facility] TDAP Unknown Completed [facility] Rho (d) Immune Globulin Unknown Completed [facility] Rho (d) Immune Globulin Unknown Completed [facility] Influenza Virus Vaccine Quad IM, Preserv and ABX Free 6 MO-64 YRS (FLUCELVAX) Unknown Completed [facility] SARS-COV-2 COVID-19 VACCINE - (MODERNA) Unknown Completed [facility] SARS-COV-2 COVID-19 MODERNA 12+ YRS VACCINE Unknown Completed [facility] TDAP Unknown Completed [facility] Rho (d) Immune Globulin Unknown Completed [facility] Rho (d) Immune Globulin Unknown Completed [facility] Influenza Virus Vaccine Quad IM, Preserv and ABX Free 6 MO-64 YRS (FLUCELVAX) Unknown Completed [facility] SARS-COV-2 COVID-19 VACCINE - (MODERNA) Unknown Completed [facility] SARS-COV-2 COVID-19 MODERNA 12+ YRS VACCINE Unknown Completed [facility] TDAP Unknown Completed [facility] Rho (d) Immune Globulin Unknown Completed [facility] Rho (d) Immune Globulin Unknown Completed [facility] Influenza Virus Vaccine Quad IM, Preserv and ABX Free 6 MO-64 YRS (FLUCELVAX) Unknown Completed [facility] SARS-COV-2 COVID-19 VACCINE - (MODERNA) Unknown Completed [facility] SARS-COV-2 COVID-19 MODERNA 12+ YRS VACCINE Unknown Completed [facility] TDAP Unknown Completed [facility] Rho (d) Immune Globulin Unknown Completed [facility] Rho (d) Immune Globulin Unknown Completed [facility] Influenza Virus Vaccine Quad IM, Preserv and ABX Free 6 MO-64 YRS (FLUCELVAX) Unknown Completed [facility] SARS-COV-2 COVID-19 VACCINE - (MODERNA) Unknown Completed [facility] SARS-COV-2 COVID-19 MODERNA 12+ YRS VACCINE Unknown Completed [facility] TDAP Unknown Completed [facility] Rho (d) Immune Globulin Unknown Completed [facility] Rho (d) Immune Globulin Unknown Completed [facility] Influenza Virus Vaccine Quad IM, Preserv and ABX Free 6 MO-64 YRS (FLUCELVAX) Unknown Completed [facility] SARS-COV-2 COVID-19 VACCINE - (MODERNA) Unknown Completed [facility] SARS-COV-2 COVID-19 MODERNA 12+ YRS VACCINE Unknown Completed [facility] TDAP Unknown Completed [facility] Rho (d) Immune Globulin Unknown Completed [facility] Rho (d) Immune Globulin Unknown Completed [facility] Influenza Virus Vaccine Quad IM, Preserv and ABX Free 6 MO-64 YRS (FLUCELVAX) Unknown Completed [facility] SARS-COV-2 COVID-19 VACCINE - (MODERNA) [facility] MODERNA 12+ YRS VACCINE Unknown Completed [facility] TDAP Unknown Completed [facility] Rho (d) Immune Globulin Unknown Completed [facility] Rho (d) Immune Globulin Unknown Completed [facility] Influenza Virus Vaccine Quad IM, Preserv and ABX Free 6 MO-64 YRS (FLUCELVAX) Unknown Completed [facility] SARS-COV-2 COVID-19 VACCINE - (MODERNA) Unknown Completed [facility] SARS-COV-2 COVID-19 MODERNA 12+ YRS VACCINE Unknown Completed [facility] TDAP Unknown Completed [facility] Rho (d) Immune Globulin Unknown Completed [facility] Rho (d) Immune Globulin Unknown Completed [facility] Influenza Virus Vaccine Quad IM, Preserv and ABX Free 6 MO-64 YRS (FLUCELVAX) Unknown Completed [facility] SARS-COV-2 COVID-19 VACCINE - (MODERNA) Unknown Completed [facility] SARS-COV-2 COVID-19 MODERNA 12+ YRS VACCINE Unknown Completed [facility] TDAP Unknown Completed [facility] Rho (d) Immune Globulin Unknown Completed [facility] Rho (d) Immune Globulin Unknown Completed [facility] Influenza Virus Vaccine Quad IM, Preserv and ABX Free 6 MO-64 YRS (FLUCELVAX) Unknown Completed [facility] SARS-COV-2 COVID-19 VACCINE - (MODERNA) Unknown Completed [facility] SARS-COV-2 COVID-19 MODERNA 12+ YRS VACCINE Unknown Completed [facility] TDAP Unknown Completed [facility] Rho (d) Immune Globulin Unknown Completed [facility] Rho (d) Immune Globulin Unknown Completed [facility] Influenza Virus Vaccine Quad IM, Preserv and ABX Free 6 MO-64 YRS (FLUCELVAX) Unknown Completed [facility] SARS-COV-2 COVID-19 VACCINE - (MODERNA) Unknown Completed [facility] SARS-COV-2 COVID-19 MODERNA 12+ YRS VACCINE Unknown Completed [facility] TDAP Unknown Completed [facility] Rho (d) Immune Globulin Unknown Completed [facility] Rho (d) Immune Globulin Unknown Completed [facility] Influenza Virus Vaccine Quad IM, Preserv and ABX Free 6 MO-64 YRS (FLUCELVAX) Unknown Completed [facility] SARS-COV-2 COVID-19 VACCINE - (MODERNA) Unknown Completed [facility] SARS-COV-2 COVID-19 MODERNA 12+ YRS VACCINE Unknown Completed [facility] TDAP Unknown Completed [facility] Rho (d) Immune Globulin Unknown Completed [facility] Rho (d) Immune Globulin Unknown Completed [facility] Influenza Virus Vaccine Quad IM, Preserv and ABX Free 6 MO-64 YRS (FLUCELVAX) Unknown Completed [facility] SARS-COV-2 COVID-19 VACCINE - (MODERNA) Unknown Completed [facility] SARS-COV-2 COVID-19 MODERNA 12+ YRS VACCINE Unknown Completed [facility] TDAP Unknown Completed [facility] Rho (d) Immune Globulin Unknown Completed [facility] Rho (d) Immune Globulin Unknown Completed [facility] Influenza Virus Vaccine Quad IM, Preserv and ABX Free 6 MO-64 YRS (FLUCELVAX) Unknown Completed [facility] SARS-COV-2 COVID-19 VACCINE - (MODERNA) Unknown Completed [facility] SARS-COV-2 COVID-19 MODERNA 12+ YRS VACCINE Unknown Completed [facility] TDAP Unknown Completed [facility] Rho (d) Immune Globulin Unknown Completed [facility] Rho (d) Immune Globulin Unknown Completed [facility] Influenza Virus Vaccine Quad IM, Preserv and ABX Free 6 MO-64 YRS (FLUCELVAX) Unknown Completed [facility] SARS-COV-2 COVID-19 VACCINE - (MODERNA) Unknown Completed [facility] SARS-COV-2 COVID-19 MODERNA 12+ YRS VACCINE Unknown Completed [facility] TDAP Unknown Completed [facility] Rho (d) Immune Globulin Unknown Completed [facility] Rho (d) Immune Globulin Unknown Completed [facility] Influenza Virus Vaccine Quad IM, Preserv and ABX Free 6 MO-64 YRS (FLUCELVAX) Unknown Completed [facility] SARS-COV-2 COVID-19 VACCINE - (MODERNA) Unknown Completed [facility] SARS-COV-2 COVID-19 MODERNA 12+ YRS VACCINE Unknown Completed [facility] TDAP Unknown Completed [facility] Rho (d) Immune Globulin Unknown Completed [facility] Rho (d) Immune Globulin Unknown Completed [facility] Influenza Virus Vaccine Quad IM, Preserv and ABX Free 6 MO-64 YRS (FLUCELVAX) Unknown Completed [facility] SARS-COV-2 COVID-19 VACCINE - (MODERNA) Unknown Completed [facility] SARS-COV-2 COVID-19 MODERNA 12+ YRS VACCINE Unknown Completed [facility] TDAP Unknown Completed [facility] Rho (d) Immune Globulin Unknown Completed [facility] Rho (d) Immune Globulin Unknown Completed [facility] Influenza Virus Vaccine Quad IM, Preserv and ABX Free 6 MO-64 YRS (FLUCELVAX) Unknown Completed [facility] SARS-COV-2 COVID-19 VACCINE - (MODERNA) Unknown Completed [facility] SARS-COV-2 COVID-19 MODERNA 12+ YRS VACCINE Unknown Completed [facility] TDAP Unknown Completed [facility] Rho (d) Immune Globulin Unknown Completed [facility] Rho (d) Immune Globulin Unknown Completed [facility] Influenza Virus Vaccine Quad IM, Preserv and ABX Free 6 MO-64 YRS (FLUCELVAX) Unknown Completed [facility] SARS-COV-2 COVID-19 VACCINE - (MODERNA) Unknown Completed [facility] SARS-COV-2 COVID-19 MODERNA 12+ YRS VACCINE Unknown Completed [facility] TDAP Unknown Completed [facility] Rho (d) Immune Globulin Unknown Completed [facility] Rho (d) Immune Globulin Unknown Completed [facility] Influenza Virus Vaccine Quad IM, Preserv and ABX Free 6 MO-64 YRS (FLUCELVAX) Unknown Completed [facility] SARS-COV-2 COVID-19 VACCINE - (MODERNA) Unknown Completed [facility] SARS-COV-2 COVID-19 MODERNA 12+ YRS VACCINE Unknown Completed [facility] TDAP Unknown Completed [facility] Rho (d) Immune Globulin Unknown Completed [facility] Rho (d) Immune Globulin Unknown Completed [facility] Influenza Virus Vaccine Quad IM, Preserv and ABX Free 6 MO-64 YRS (FLUCELVAX) Unknown Completed [facility] SARS-COV-2 COVID-19 VACCINE - (MODERNA) Unknown Completed [facility] SARS-COV-2 COVID-19 MODERNA 12+ YRS VACCINE Unknown Completed [facility] TDAP Unknown Completed [facility] Rho (d) Immune Globulin Unknown Completed [facility] Rho (d) Immune Globulin Unknown Completed [facility] Influenza Virus Vaccine Quad IM, Preserv and ABX Free 6 MO-64 YRS (FLUCELVAX) Unknown Completed [facility] SARS-COV-2 COVID-19 VACCINE - (MODERNA) Unknown Completed [facility] SARS-COV-2 COVID-19 MODERNA 12+ YRS VACCINE Unknown Completed [facility] TDAP Unknown Completed [facility] Rho (d) Immune Globulin Unknown Completed [facility] Rho (d) Immune Globulin Unknown Completed [facility] Influenza Virus Vaccine Quad IM, Preserv and ABX Free 6 MO-64 YRS (FLUCELVAX) Unknown Completed [facility] SARS-COV-2 COVID-19 VACCINE - (MODERNA) Unknown Completed [facility] SARS-COV-2 COVID-19 MODERNA 12+ YRS VACCINE Unknown Completed [facility] TDAP Unknown Completed [facility] Rho (d) Immune Globulin Unknown Completed [facility] Rho (d) Immune Globulin Unknown Completed [facility] Influenza Virus Vaccine Quad IM, Preserv and ABX Free 6 MO-64 YRS (FLUCELVAX) Unknown Completed [facility] SARS-COV-2 COVID-19 VACCINE - (MODERNA) Unknown Completed [facility] SARS-COV-2 COVID-19 MODERNA 12+ YRS VACCINE Unknown Completed [facility] TDAP Unknown Completed [facility] Rho (d) Immune Globulin Unknown Completed [facility] Rho (d) Immune Globulin Unknown Completed [facility] Influenza Virus Vaccine Quad IM, Preserv and ABX Free 6 MO-64 YRS (FLUCELVAX) Unknown Completed [facility] SARS-COV-2 COVID-19 VACCINE - (MODERNA) Unknown Completed [facility] SARS-COV-2 COVID-19 MODERNA 12+ YRS VACCINE Unknown Completed [facility] TDAP Unknown Completed [facility] Rho (d) Immune Globulin Unknown Completed [facility] Rho (d) Immune Globulin Unknown Completed [facility] Influenza Virus Vaccine Quad IM, Preserv and ABX Free 6 MO-64 YRS (FLUCELVAX) Unknown Completed [facility] SARS-COV-2 COVID-19 VACCINE - (MODERNA) Unknown Completed [facility] PPD (TB) Unknown Completed [facility] SARS-COV-2 COVID-19 MODERNA 12+ YRS VACCINE Unknown Completed [facility] TDAP Unknown Completed [facility] Rho (d) Immune Globulin Unknown Completed [facility] Rho (d) Immune Globulin Unknown Completed [facility] Influenza Virus Vaccine Quad IM, Preserv and ABX Free 6 MO-64 YRS (FLUCELVAX) Unknown Completed [facility] SARS-COV-2 COVID-19 VACCINE - (MODERNA) Unknown Completed [facility] PPD (TB) Unknown Completed [facility] SARS-COV-2 COVID-19 MODERNA 12+ YRS VACCINE Unknown Completed [facility] TDAP Unknown Completed [facility] Rho (d) Immune Globulin Unknown Completed [facility] Rho (d) Immune Globulin Unknown Completed [facility] Influenza Virus Vaccine Quad IM, Preserv and ABX Free 6 MO-64 YRS (FLUCELVAX) Unknown Completed [facility] SARS-COV-2 COVID-19 VACCINE - (MODERNA) Unknown Completed [facility] PPD (TB) Unknown Completed [facility] SARS-COV-2 COVID-19 MODERNA 12+ YRS VACCINE Unknown Completed [facility] TDAP Unknown Completed [facility] Rho (d) Immune Globulin Unknown Completed [facility] Rho (d) Immune Globulin Unknown Completed [facility] Influenza Virus Vaccine Quad IM, Preserv and ABX Free 6 MO-64 YRS (FLUCELVAX) Unknown Completed [facility] SARS-COV-2 COVID-19 VACCINE - (MODERNA) Unknown Completed [facility] PPD (TB) Unknown Completed [facility] SARS-COV-2 COVID-19 MODERNA 12+ YRS VACCINE Unknown Completed [facility] TDAP Unknown Completed [facility] Rho (d) Immune Globulin Unknown Completed [facility] Rho (d) Immune Globulin Unknown Completed [facility] Influenza Virus Vaccine Quad IM, Preserv and ABX Free 6 MO-64 YRS (FLUCELVAX) Unknown Completed [facility] SARS-COV-2 COVID-19 VACCINE - (MODERNA) Unknown Completed [facility] PPD (TB) Unknown Completed [facility] SARS-COV-2 COVID-19 MODERNA 12+ YRS VACCINE Unknown Completed [facility] TDAP Unknown Completed [facility] Rho (d) Immune Globulin Unknown Completed [facility] Rho (d) Immune Globulin Unknown Completed [facility] Influenza Virus Vaccine Quad IM, Preserv and ABX Free 6 MO-64 YRS (FLUCELVAX) Unknown Completed [facility] SARS-COV-2 COVID-19 VACCINE - (MODERNA) Unknown Completed [facility] PPD (TB) Unknown Completed [facility] SARS-COV-2 COVID-19 MODERNA 12+ YRS VACCINE Unknown Completed [facility] TDAP Unknown Completed [facility] Rho (d) Immune Globulin Unknown Completed [facility] Rho (d) Immune Globulin Unknown Completed [facility] Influenza Virus Vaccine Quad IM, Preserv and ABX Free 6 MO-64 YRS (FLUCELVAX) Unknown Completed [facility] SARS-COV-2 COVID-19 VACCINE - (MOD[facility]NA) [facility] MODERNA 12+ YRS VACCINE Unknown Completed [facility] TDAP Unknown Completed [facility] Rho (d) Immune Globulin Unknown Completed [facility] Rho (d) Immune Globulin Unknown Completed [facility] Influenza Virus Vaccine Quad IM, Preserv and ABX Free 6 MO-64 YRS (FLUCELVAX) Unknown Completed [facility] SARS-COV-2 COVID-19 VACCINE - (MODERNA) Unknown Completed [facility] PPD (TB) Unknown Completed [facility] SARS-COV-2 COVID-19 MODERNA 12+ YRS VACCINE Unknown Completed [facility] TDAP Unknown Completed [facility] Rho (d) Immune Globulin Unknown Completed [facility] Rho (d) Immune Globulin Unknown Completed [facility] Influenza Virus Vaccine Quad IM, Preserv and ABX Free 6 MO-64 YRS (FLUCELVAX) Unknown Completed [facility] SARS-COV-2 COVID-19 VACCINE - (MODERNA) Unknown Completed [facility] PPD (TB) Unknown Completed [facility] SARS-COV-2 COVID-19 MODERNA 12+ YRS VACCINE Unknown Completed [facility] TDAP Unknown Completed [facility] Rho (d) Immune Globulin Unknown Completed [facility] Rho (d) Immune Globulin Unknown Completed [facility] Influenza Virus Vaccine Quad IM, Preserv and ABX Free 6 MO-64 YRS (FLUCELVAX) Unknown Completed [facility] SARS-COV-2 COVID-19 VACCINE - (MODERNA) Unknown Completed [facility] PPD (TB) Unknown Completed [facility] SARS-COV-2 COVID-19 MODERNA 12+ YRS VACCINE Unknown Completed [facility] TDAP Unknown Completed [facility] Rho (d) Immune Globulin Unknown Completed [facility] Rho (d) Immune Globulin Unknown Completed [facility] Influenza Virus Vaccine Quad IM, Preserv and ABX Free 6 MO-64 YRS (FLUCELVAX) Unknown Completed [facility] SARS-COV-2 COVID-19 VACCINE - (MODERNA) [facility] SARS-COV-2 COVID-19 MODERNA 12+ YRS VACCINE Unknown Completed [facility] TDAP Unknown Completed [facility] Rho (d) Immune Globulin Unknown Completed [facility] Rho (d) Immune Globulin Unknown Completed [facility] Influenza Virus Vaccine Quad IM, Preserv and ABX Free 6 MO-64 YRS (FLUCELVAX) Unknown Completed [facility] SARS-COV-2 COVID-19 VACCINE - (MODERNA) Unknown Completed [facility] SARS-COV-2 COVID-19 MODERNA 12+ YRS VACCINE Unknown Completed [facility] TDAP Unknown Completed [facility] Rho (d) Immune Globulin Unknown Completed [facility] Rho (d) Immune Globulin Unknown Completed [facility] Influenza Virus Vaccine Quad IM, Preserv and ABX Free 6 MO-64 YRS (FLUCELVAX) Unknown Completed [facility] SARS-COV-2 COVID-19 VACCINE - (MODERNA) Unknown Completed [facility] PPD (TB) Unknown Completed [facility] SARS-COV-2 COVID-19 MODERNA 12+ YRS VACCINE Unknown Completed [facility] TDAP Unknown Completed [facility] Rho (d) Immune Globulin Unknown Completed [facility] Rho (d) Immune Globulin Unknown Completed [facility] Influenza Virus Vaccine Quad IM, Preserv and ABX Free 6 MO-64 YRS (FLUCELVAX) Unknown Completed [facility] SARS-COV-2 COVID-19 VACCINE - (MOD[facility]NA) [facility] SARS-COV-2 COVID-19 MODERNA 12+ YRS VACCINE Unknown Completed [facility] TDAP Unknown Completed [facility] Rho (d) Immune Globulin Unknown Completed [facility] Rho (d) Immune Globulin Unknown Completed [facility] Influenza Virus Vaccine Quad IM, Preserv and ABX Free 6 MO-64 YRS (FLUCELVAX) Unknown Completed [facility] SARS-COV-2 COVID-19 VACCINE - (MODERNA) Unknown Completed [facility] PPD (TB) Unknown Completed [facility] SARS-COV-2 COVID-19 MODERNA 12+ YRS VACCINE Unknown Completed [facility] TDAP Unknown Completed [facility] Rho (d) Immune Globulin Unknown Completed [facility] Rho (d) Immune Globulin Unknown Completed [facility] Influenza Virus Vaccine Quad IM, Preserv and ABX Free 6 MO-64 YRS (FLUCELVAX) Unknown Completed [facility] SARS-COV-2 COVID-19 VACCINE - (MODERNA) Unknown Completed [facility] PPD (TB) Unknown Completed [facility] Vital Signs Vital Name Observation Time Observation Value Comments S ource Systolic blood pressure 2024-02-10 13:39:00 119 mm[Hg] [facility] Diastolic blood pressure 2024-02-10 13:39:00 80 mm[Hg] [facility] Heart rate 2024-02-10 13:39:00 106 /min [facility] Body temperature 2024-02-10 13:39:00 35.67 Malou [facility] Respiratory rate 2024-02-10 13:39:00 18 /min [facility] Body height 2024-02-10 13:39:00 157.5 cm [facility] Body weight 2024-02-10 13:39:00 88.179 kg [facility] BMI 2024-02-10 13:39:00 35.56 kg/m2 [facility] Systolic blood pressure 2024-01-29 15:08:00 115 mm[Hg] [facility] Diastolic blood pressure 2024-01-29 15:08:00 79 mm[Hg] [facility] Heart rate 2024-01-29 15:08:00 95 /min [facility] Body temperature 2024-01-29 15:08:00 36.67 Malou [facility] Respiratory rate 2024-01-29 15:08:00 18 /min [facility] Body weight 2024-01-29 15:08:00 86.183 kg [facility] BMI 2024-01-29 15:08:00 34.75 kg/m2 [facility] Oxygen saturation in Arterial blood by Pulse oximetry 2024-01-29 15:08:00 96 /min [facility] Systolic blood pressure 2024-01-14 17:22:00 126 mm[Hg] [facility] Diastolic blood pressure 2024-01-14 17:22:00 84 mm[Hg] [facility] Heart rate 2024-01-14 17:22:00 93 /min [facility] Body temperature 2024-01-14 17:22:00 36.83 Malou [facility] Respiratory rate 2024-01-14 17:22:00 17 /min [facility] Body weight 2024-01-14 17:22:00 85.639 kg [facility] BMI 2024-01-14 17:22:00 34.53 kg/m2 [facility] Oxygen saturation in Arterial blood by Pulse oximetry 2024-01-14 17:22:00 98 /min [facility] Systolic blood pressure 2023-12-21 20:01:00 126 mm[Hg] [facility] Diastolic blood pressure 2023-12-21 20:01:00 85 mm[Hg] [facility] Heart rate 2023-12-21 20:01:00 88 /min [facility] Body height 2023-12-21 20:01:00 157.5 cm [facility] Body weight 2023-12-21 20:01:00 85.276 kg [facility] BMI 2023-12-21 20:01:00 34.39 kg/m2 [facility] Oxygen saturation in Arterial blood by Pulse oximetry 2023-12-21 20:01:00 99 /min [facility] Systolic blood pressure 2023-12-09 19:10:00 125 mm[Hg] [facility] Diastolic blood pressure 2023-12-09 19:10:00 84 mm[Hg] [facility] Heart rate 2023-12-09 19:10:00 91 /min [facility] Respiratory rate 2023-12-09 19:10:00 20 /min [facility] Oxygen saturation in Arterial blood by Pulse oximetry 2023-12-09 19:10:00 100 /min [facility] Body temperature 2023-12-09 18:40:00 35.94 Malou [facility] Body height 2023-12-09 17:59:00 157.5 cm [facility] Body weight 2023-12-09 17:59:00 83.4 kg [facility] BMI 2023-12-09 17:59:00 33.63 kg/m2 [facility] Systolic blood pressure 2023-12-09 18:55:00 127 mm[Hg] [facility] Diastolic blood pressure 2023-12-09 18:55:00 88 mm[Hg] [facility] Heart rate 2023-12-09 18:55:00 103 /min [facility] Respiratory rate 2023-12-09 18:55:00 14 /min [facility] Oxygen saturation in Arterial blood by Pulse oximetry 2023-12-09 18:55:00 100 /min [facility] Body temperature 2023-12-09 18:40:00 35.94 Malou [facility] Body height 2023-12-09 17:59:00 157.5 cm [facility] Body weight 2023-12-09 17:59:00 83.4 kg [facility] BMI 2023-12-09 17:59:00 33.63 kg/m2 [facility] Systolic blood pressure 2023-12-03 19:57:00 122 mm[Hg] [facility] Diastolic blood pressure 2023-12-03 19:57:00 80 mm[Hg] [facility] Heart rate 2023-12-03 19:57:00 97 /min [facility] Body temperature 2023-12-03 19:57:00 35.94 Mlaou [facility] Respiratory rate 2023-12-03 19:57:00 16 /min [facility] Body weight 2023-12-03 19:57:00 83.553 kg [facility] BMI 2023-12-03 19:57:00 33.69 kg/m2 [facility] Oxygen saturation in Arterial blood by Pulse oximetry 2023-12-03 19:57:00 98 /min [facility] Systolic blood pressure 2023-12-01 19:40:00 123 mm[Hg] [facility] Diastolic blood pressure 2023-12-01 19:40:00 86 mm[Hg] [facility] Heart rate 2023-12-01 19:40:00 92 /min [facility] Body temperature 2023-12-01 19:40:00 36.94 Malou [facility] Respiratory rate 2023-12-01 19:40:00 18 /min [facility] Body height 2023-12-01 19:40:00 157.5 cm [facility] Body weight 2023-12-01 19:40:00 83.87 kg [facility] BMI 2023-12-01 19:40:00 33.82 kg/m2 [facility] Oxygen saturation in Arterial blood by Pulse oximetry 2023-12-01 19:40:00 99 /min [facility] Systolic blood pressure 2023-11-19 18:45:00 117 mm[Hg] [facility] Diastolic blood pressure 2023-11-19 18:45:00 81 mm[Hg] [facility] Heart rate 2023-11-19 18:45:00 97 /min [facility] Body temperature 2023-11-19 18:45:00 36.72 Malou [facility] Respiratory rate 2023-11-19 18:45:00 16 /min [facility] Body weight 2023-11-19 18:45:00 83.689 kg [facility] BMI 2023-11-19 18:45:00 33.75 kg/m2 [facility] Oxygen saturation in Arterial blood by Pulse oximetry 2023-11-19 18:45:00 99 /min [facility] Systolic blood pressure 2023-10-25 15:53:00 129 mm[Hg] [facility] Diastolic blood pressure 2023-10-25 15:53:00 90 mm[Hg] [facility] Heart rate 2023-10-25 15:53:00 111 /min [facility] Body temperature 2023-10-25 15:50:00 35.89 Malou [facility] Respiratory rate 2023-10-25 15:50:00 16 /min [facility] Body height 2023-10-25 15:50:00 157.5 cm [facility] Body weight 2023-10-25 15:50:00 82.509 kg [facility] BMI 2023-10-25 15:50:00 33.27 kg/m2 [facility] Oxygen saturation in Arterial blood by Pulse oximetry 2023-10-25 15:50:00 96 /min [facility] Systolic blood pressure 2023-10-18 18:34:00 124 mm[Hg] [facility] Diastolic blood pressure 2023-10-18 18:34:00 88 mm[Hg] [facility] Heart rate 2023-10-18 18:15:00 103 /min [facility] Body temperature 2023-10-18 18:15:00 36.67 Malou [facility] Respiratory rate 2023-10-18 18:15:00 18 /min [facility] Body height 2023-10-18 18:15:00 157.5 cm [facility] Body weight 2023-10-18 18:15:00 82.6 kg [facility] BMI 2023-10-18 18:15:00 33.31 kg/m2 [facility] Oxygen saturation in Arterial blood by Pulse oximetry 2023-10-18 18:15:00 100 /min [facility] Systolic blood pressure 2023-10-16 20:17:00 130 mm[Hg] [facility] Diastolic blood pressure 2023-10-16 20:17:00 97 mm[Hg] [facility] Heart rate 2023-10-16 20:17:00 88 /min [facility] Body temperature 2023-10-16 20:17:00 37.39 Malou [facility] Respiratory rate 2023-10-16 20:17:00 16 /min [facility] Body height 2023-10-16 20:17:00 157.5 cm [facility] Body weight 2023-10-16 20:17:00 81.647 kg [facility] BMI 2023-10-16 20:17:00 32.92 kg/m2 [facility] Oxygen saturation in Arterial blood by Pulse oximetry 2023-10-16 20:17:00 100 /min [facility] Systolic blood pressure 2023-10-07 14:18:00 125 mm[Hg] [facility] Diastolic blood pressure 2023-10-07 14:18:00 88 mm[Hg] [facility] Heart rate 2023-10-07 14:18:00 100 /min [facility] Body temperature 2023-10-07 14:18:00 35.56 Malou [facility] Respiratory rate 2023-10-07 14:18:00 16 /min [facility] Body height 2023-10-07 14:18:00 157.5 cm [facility] Body weight 2023-10-07 14:18:00 84.142 kg [facility] BMI 2023-10-07 14:18:00 33.93 kg/m2 [facility] Oxygen saturation in Arterial blood by Pulse oximetry 2023-10-07 14:18:00 100 /min [facility] Systolic blood pressure 2023-10-01 19:17:00 122 mm[Hg] [facility] Diastolic blood pressure 2023-10-01 19:17:00 81 mm[Hg] [facility] Heart rate 2023-10-01 19:17:00 94 /min [facility] Body temperature 2023-10-01 19:17:00 36.78 Malou [facility] Body height 2023-10-01 19:17:00 157.5 cm [facility] Body weight 2023-10-01 19:17:00 85.186 kg [facility] BMI 2023-10-01 19:17:00 34.35 kg/m2 [facility] Oxygen saturation in Arterial blood by Pulse oximetry 2023-10-01 19:17:00 100 /min [facility] Systolic blood pressure 2023-09-22 18:42:00 124 mm[Hg] [facility] Diastolic blood pressure 2023-09-22 18:42:00 87 mm[Hg] [facility] Heart rate 2023-09-22 18:42:00 88 /min [facility] Body temperature 2023-09-22 18:42:00 36.72 Malou [facility] Respiratory rate 2023-09-22 18:42:00 16 /min [facility] Body height 2023-09-22 18:42:00 157.5 cm [facility] Body weight 2023-09-22 18:42:00 85.276 kg [facility] BMI 2023-09-22 18:42:00 34.39 kg/m2 [facility] Systolic blood pressure 2023-09-07 20:01:00 118 mm[Hg] [facility] Diastolic blood pressure 2023-09-07 20:01:00 81 mm[Hg] [facility] Heart rate 2023-09-07 20:01:00 93 /min [facility] Body height 2023-09-07 20:01:00 157.5 cm [facility] Body weight 2023-09-07 20:01:00 85.276 kg [facility] BMI 2023-09-07 20:01:00 34.39 kg/m2 [facility] Oxygen saturation in Arterial blood by Pulse oximetry 2023-09-07 20:01:00 97 /min [facility] Systolic blood pressure 2023-09-06 20:05:00 124 mm[Hg] [facility] Diastolic blood pressure 2023-09-06 20:05:00 81 mm[Hg] [facility] Heart rate 2023-09-06 20:02:00 111 /min [facility] Body temperature 2023-09-06 20:02:00 36.44 Malou [facility] Body height 2023-09-06 20:02:00 157.5 cm [facility] Body weight 2023-09-06 20:02:00 85.186 kg [facility] BMI 2023-09-06 20:02:00 34.35 kg/m2 [facility] Oxygen saturation in Arterial blood by Pulse oximetry 2023-09-06 20:02:00 97 /min [facility] Systolic blood pressure 2023-08-14 00:32:00 114 mm[Hg] [facility] Diastolic blood pressure 2023-08-14 00:32:00 79 mm[Hg] [facility] Heart rate 2023-08-14 00:32:00 93 /min [facility] Body temperature 2023-08-14 00:32:00 37.22 Malou [facility] Respiratory rate 2023-08-14 00:32:00 20 /min [facility] Body height 2023-08-14 00:32:00 157.5 cm [facility] Body weight 2023-08-14 00:32:00 84.369 kg [facility] BMI 2023-08-14 00:32:00 34.02 kg/m2 [facility] Oxygen saturation in Arterial blood by Pulse oximetry 2023-08-14 00:32:00 98 /min [facility] Systolic blood pressure 2023-06-25 15:54:00 117 mm[Hg] [facility] Diastolic blood pressure 2023-06-25 15:54:00 85 mm[Hg] [facility] Heart rate 2023-06-25 15:54:00 97 /min [facility] Body temperature 2023-06-25 15:54:00 36.67 Malou [facility] Respiratory rate 2023-06-25 15:54:00 16 /min [facility] Body height 2023-06-25 15:54:00 157.5 cm [facility] Body weight 2023-06-25 15:54:00 85.231 kg [facility] BMI 2023-06-25 15:54:00 34.37 kg/m2 [facility] Oxygen saturation in Arterial blood by Pulse oximetry 2023-06-25 15:54:00 98 /min [facility] Systolic blood pressure 2023-06-16 19:05:00 133 mm[Hg] [facility] Diastolic blood pressure 2023-06-16 19:05:00 89 mm[Hg] [facility] Heart rate 2023-06-16 19:05:00 103 /min [facility] Body temperature 2023-06-16 19:05:00 36.67 Malou [facility] Respiratory rate 2023-06-16 19:05:00 18 /min [facility] Body height 2023-06-16 19:05:00 157.5 cm [facility] Body weight 2023-06-16 19:05:00 84.369 kg [facility] BMI 2023-06-16 19:05:00 34.02 kg/m2 [facility] Oxygen saturation in Arterial blood by Pulse oximetry 2023-06-16 19:05:00 98 /min [facility] Systolic blood pressure 2023-06-02 21:34:00 128 mm[Hg] [facility] Diastolic blood pressure 2023-06-02 21:34:00 88 mm[Hg] [facility] Heart rate 2023-06-02 21:33:00 104 /min [facility] Body temperature 2023-06-02 21:33:00 36.17 Malou [facility] Respiratory rate 2023-06-02 21:33:00 18 /min [facility] Body height 2023-06-02 21:33:00 157.5 cm [facility] Body weight 2023-06-02 21:33:00 83.961 kg [facility] BMI 2023-06-02 21:33:00 33.86 kg/m2 [facility] Oxygen saturation in Arterial blood by Pulse oximetry 2023-06-02 21:33:00 97 /min [facility] Systolic blood pressure 2023-05-14 15:13:00 135 mm[Hg] [facility] Diastolic blood pressure 2023-05-14 15:13:00 89 mm[Hg] [facility] Heart rate 2023-05-14 15:06:00 98 /min [facility] Body height 2023-05-14 15:06:00 157.5 cm [facility] Body weight 2023-05-14 15:06:00 84.006 kg [facility] BMI 2023-05-14 15:06:00 33.87 kg/m2 [facility] Systolic blood pressure 2023-05-12 16:01:00 141 mm[Hg] [facility] Diastolic blood pressure 2023-05-12 16:01:00 99 mm[Hg] [facility] Heart rate 2023-05-12 16:00:00 101 /min [facility] Body temperature 2023-05-12 16:00:00 36.72 Malou [facility] Respiratory rate 2023-05-12 16:00:00 18 /min [facility] Body height 2023-05-12 16:00:00 157.5 cm [facility] Body weight 2023-05-12 16:00:00 83.144 kg [facility] BMI 2023-05-12 16:00:00 33.53 kg/m2 [facility] Oxygen saturation in Arterial blood by Pulse oximetry 2023-05-12 16:00:00 99 /min [facility] Systolic blood pressure 2023-01-26 20:53:00 124 mm[Hg] [facility] Diastolic blood pressure 2023-01-26 20:53:00 83 mm[Hg] [facility] Heart rate 2023-01-26 20:53:00 97 /min [facility] Body temperature 2023-01-26 20:53:00 36.89 Malou [facility] Respiratory rate 2023-01-26 20:53:00 18 /min [facility] Body height 2023-01-26 20:53:00 157.5 cm [facility] Body weight 2023-01-26 20:53:00 81.194 kg [facility] BMI 2023-01-26 20:53:00 32.74 kg/m2 [facility] Systolic blood pressure 2023-01-11 15:18:00 129 mm[Hg] [facility] Diastolic blood pressure 2023-01-11 15:18:00 87 mm[Hg] [facility] Heart rate 2023-01-11 15:18:00 85 /min [facility] Body temperature 2023-01-11 15:18:00 36.61 Malou [facility] Respiratory rate 2023-01-11 15:18:00 18 /min [facility] Body height 2023-01-11 15:18:00 157.5 cm [facility] Body weight 2023-01-11 15:18:00 80.377 kg [facility] BMI 2023-01-11 15:18:00 32.41 kg/m2 [facility] Systolic blood pressure 2022-12-31 18:11:00 130 mm[Hg] [facility] Diastolic blood pressure 2022-12-31 18:11:00 87 mm[Hg] [facility] Heart rate 2022-12-31 18:11:00 89 /min [facility] Body temperature 2022-12-31 18:11:00 36.89 Malou [facility] Body weight 2022-12-31 18:11:00 80.559 kg [facility] BMI 2022-12-31 18:11:00 32.48 kg/m2 [facility] Systolic blood pressure 2022-12-10 17:05:00 131 mm[Hg] pt from [facility] Diastolic blood pressure 2022-12-10 17:05:00 92 mm[Hg] pt from [facility] Body temperature 2022-12-10 17:04:00 37.11 Malou [facility] Respiratory rate 2022-12-10 17:04:00 17 /min [facility] Heart rate 2022-12-10 12:15:00 82 /min [facility] Oxygen saturation in Arterial blood by Pulse oximetry 2022-12-10 12:15:00 100 /min [facility] Body weight 2022-12-09 14:19:00 89.812 kg [facility] BMI 2022-12-09 14:19:00 36.21 kg/m2 [facility] Systolic blood pressure 2022-12-08 18:30:00 123 mm[Hg] [facility] Diastolic blood pressure 2022-12-08 18:30:00 81 mm[Hg] [facility] Heart rate 2022-12-08 18:30:00 97 /min [facility] Body temperature 2022-12-08 18:30:00 36.56 Malou [facility] Respiratory rate 2022-12-08 18:30:00 18 /min [facility] Body height 2022-12-08 18:30:00 157.5 cm [facility] Body weight 2022-12-08 18:30:00 89.903 kg [facility] BMI 2022-12-08 18:30:00 36.25 kg/m2 [facility] Oxygen saturation in Arterial blood by Pulse oximetry 2022-12-08 18:30:00 99 /min [facility] Heart rate 2022-12-03 23:43:00 100 /min [facility] Oxygen saturation in Arterial blood by Pulse oximetry 2022-12-03 23:43:00 98 /min [facility] Systolic blood pressure 2022-12-03 23:15:00 130 mm[Hg] [facility] Diastolic blood pressure 2022-12-03 23:15:00 87 mm[Hg] [facility] Body temperature 2022-12-03 23:15:00 36.5 Malou [facility] Respiratory rate 2022-12-03 23:15:00 18 /min [facility] Body weight 2022-12-03 22:49:00 90.719 kg [facility] BMI 2022-12-03 22:49:00 36.58 kg/m2 [facility] Systolic blood pressure 2022-12-01 18:19:00 122 mm[Hg] [facility] Diastolic blood pressure 2022-12-01 18:19:00 87 mm[Hg] [facility] Heart rate 2022-12-01 18:19:00 113 /min [facility] Body temperature 2022-12-01 18:19:00 37 Malou [facility] Respiratory rate 2022-12-01 18:19:00 18 /min [facility] Body height 2022-12-01 18:19:00 157.5 cm [facility] Body weight 2022-12-01 18:19:00 90.084 kg [facility] BMI 2022-12-01 18:19:00 36.32 kg/m2 [facility] Heart rate 2022-11-25 21:00:00 102 /min [facility] Oxygen saturation in Arterial blood by Pulse oximetry 2022-11-25 21:00:00 99 /min [facility] Systolic blood pressure 2022-11-25 20:45:00 113 mm[Hg] [facility] Diastolic blood pressure 2022-11-25 20:45:00 61 mm[Hg] [facility] Body temperature 2022-11-25 20:45:00 37 Malou [facility] Respiratory rate 2022-11-25 20:45:00 18 /min [facility] Body height 2022-11-25 16:04:00 157.5 cm [facility] Body weight 2022-11-25 16:04:00 88.451 kg [facility] BMI 2022-11-25 16:04:00 35.67 kg/m2 [facility] Heart rate 2022-11-19 18:41:00 96 /min [facility] Oxygen saturation in Arterial blood by Pulse oximetry 2022-11-19 18:41:00 99 /min [facility] Systolic blood pressure 2022-11-19 17:40:00 102 mm[Hg] [facility] Diastolic blood pressure 2022-11-19 17:40:00 65 mm[Hg] [facility] Body temperature 2022-11-19 17:40:00 36.89 Malou [facility] Respiratory rate 2022-11-19 17:40:00 18 /min [facility] Body height 2022-11-19 17:40:00 157.5 cm [facility] Body weight 2022-11-19 17:40:00 89.359 kg [facility] BMI 2022-11-19 17:40:00 36.03 kg/m2 [facility] Systolic blood pressure 2022-11-17 18:18:00 126 mm[Hg] [facility] Diastolic blood pressure 2022-11-17 18:18:00 84 mm[Hg] [facility] Heart rate 2022-11-17 18:18:00 94 /min [facility] Body temperature 2022-11-17 18:18:00 36.5 Malou [facility] Respiratory rate 2022-11-17 18:18:00 18 /min [facility] Body height 2022-11-17 18:18:00 157.5 cm [facility] Body weight 2022-11-17 18:18:00 87.363 kg [facility] BMI 2022-11-17 18:18:00 35.23 kg/m2 [facility] Oxygen saturation in Arterial blood by Pulse oximetry 2022-11-17 18:18:00 99 /min [facility] Systolic blood pressure 2022-11-03 21:16:00 128 mm[Hg] [facility] Diastolic blood pressure 2022-11-03 21:16:00 86 mm[Hg] [facility] Heart rate 2022-11-03 21:16:00 93 /min [facility] Body temperature 2022-11-03 21:16:00 36.44 Malou [facility] Respiratory rate 2022-11-03 21:16:00 18 /min [facility] Body height 2022-11-03 21:16:00 157.5 cm [facility] Body weight 2022-11-03 21:16:00 88.905 kg [facility] BMI 2022-11-03 21:16:00 35.85 kg/m2 [facility] Systolic blood pressure 2022-11-02 15:44:00 120 mm[Hg] [facility] Diastolic blood pressure 2022-11-02 15:44:00 83 mm[Hg] [facility] Heart rate 2022-11-02 15:44:00 106 /min [facility] Body temperature 2022-11-02 15:44:00 36.78 Malou [facility] Respiratory rate 2022-11-02 15:44:00 18 /min [facility] Body weight 2022-11-02 15:44:00 88.361 kg [facility] BMI 2022-11-02 15:44:00 35.63 kg/m2 [facility] Systolic blood pressure 2022-10-23 18:37:00 130 mm[Hg] [facility] Diastolic blood pressure 2022-10-23 18:37:00 87 mm[Hg] [facility] Heart rate 2022-10-23 18:37:00 97 /min [facility] Body temperature 2022-10-23 18:37:00 36.67 Malou [facility] Respiratory rate 2022-10-23 18:37:00 18 /min [facility] Body weight 2022-10-23 18:37:00 88.905 kg [facility] BMI 2022-10-23 18:37:00 35.85 kg/m2 [facility] Systolic blood pressure 2022-10-22 18:37:00 124 mm[Hg] [facility] Diastolic blood pressure 2022-10-22 18:37:00 85 mm[Hg] [facility] Heart rate 2022-10-22 18:37:00 94 /min [facility] Body temperature 2022-10-22 18:37:00 36.72 Malou [facility] Body height 2022-10-22 18:37:00 157.5 cm [facility] Body weight 2022-10-22 18:37:00 88.089 kg [facility] BMI 2022-10-22 18:37:00 35.52 kg/m2 [facility] Heart rate 2022-10-11 19:15:00 101 /min [facility] Oxygen saturation in Arterial blood by Pulse oximetry 2022-10-11 19:15:00 98 /min [facility] Systolic blood pressure 2022-10-11 19:00:00 123 mm[Hg] [facility] Diastolic blood pressure 2022-10-11 19:00:00 68 mm[Hg] [facility] Body temperature 2022-10-11 19:00:00 36.44 Malou [facility] Respiratory rate 2022-10-11 19:00:00 16 /min [facility] Body height 2022-10-11 18:50:00 157.5 cm [facility] Body weight 2022-10-11 18:50:00 89.359 kg [facility] BMI 2022-10-11 18:50:00 36.03 kg/m2 [facility] Systolic blood pressure 2022-10-09 19:34:00 131 mm[Hg] [facility] Diastolic blood pressure 2022-10-09 19:34:00 84 mm[Hg] [facility] Heart rate 2022-10-09 19:34:00 103 /min [facility] Body temperature 2022-10-09 19:34:00 36.83 Malou [facility] Respiratory rate 2022-10-09 19:34:00 18 /min [facility] Body height 2022-10-09 19:34:00 157.5 cm [facility] Body weight 2022-10-09 19:34:00 88.089 kg [facility] BMI 2022-10-09 19:34:00 35.52 kg/m2 [facility] Systolic blood pressure 2022-09-26 03:30:00 113 mm[Hg] [facility] Diastolic blood pressure 2022-09-26 03:30:00 71 mm[Hg] [facility] Heart rate 2022-09-26 03:30:00 80 /min [facility] Oxygen saturation in Arterial blood by Pulse oximetry 2022-09-26 03:30:00 99 /min [facility] Body temperature 2022-09-26 02:20:00 36.5 Malou [facility] Respiratory rate 2022-09-26 02:20:00 18 /min [facility] Body height 2022-09-26 01:57:00 157.5 cm [facility] Body weight 2022-09-26 01:57:00 90.22 kg [facility] BMI 2022-09-26 01:57:00 36.38 kg/m2 [facility] Heart rate 2022-09-03 04:12:00 85 /min [facility] Oxygen saturation in Arterial blood by Pulse oximetry 2022-09-03 04:12:00 99 /min [facility] Systolic blood pressure 2022-09-03 04:00:00 114 mm[Hg] [facility] Diastolic blood pressure 2022-09-03 04:00:00 73 mm[Hg] [facility] Body temperature 2022-09-03 03:47:00 36.33 Malou [facility] Respiratory rate 2022-09-03 03:47:00 17 /min [facility] Body height 2022-09-03 03:47:00 157.5 cm [facility] Body weight 2022-09-03 03:47:00 88.451 kg [facility] BMI 2022-09-03 03:47:00 35.67 kg/m2 [facility] Systolic blood pressure 2022-02-09 20:41:00 126 mm[Hg] [facility] Diastolic blood pressure 2022-02-09 20:41:00 90 mm[Hg] [facility] Heart rate 2022-02-05 19:35:00 84 /min [facility] Body temperature 2022-02-05 19:35:00 36.5 Malou [facility] Respiratory rate 2022-02-05 19:35:00 18 /min [facility] Body height 2022-02-05 19:35:00 157.5 cm [facility] Body weight 2022-02-05 19:35:00 83.825 kg [facility] BMI 2022-02-05 19:35:00 33.80 kg/m2 [facility] Body Temperature 2019-06-12 18:15:00 98.4 [degF] [facility] 2019-06-12 18:15:00 98 /min [facility] Respiratory rate 2019-06-12 18:15:00 18 /min [facility] BP Systolic 2019-06-12 18:15:00 137 mm[Hg] [facility] BP Diastolic 2019-06-12 18:15:00 71 mm[Hg] [facility] [employer] Heart Rate 2019-06-12 15:36:00 118 /min [facility] BP Systolic 2019-06-12 15:36:00 140 mm[Hg] [facility] Diastolic 2019-06-12 15:36:00 80 mm[Hg] [facility] BMI (Body Mass Index) 2019-06-12 15:36:00 39.3 kg/m2 [facility] [employer] Weight 2019-06-12 15:26:00 215 [lb_av] [facility] [employer] Respiratory rate 2019-01-29 11:35:00 22 /min [facility] Procedure Date / Time Performed Performing Clinician Source POCT TEST 2024-02-10 14:44:00 Suad Hameed [facility] POCT SARS-COV-2 ANTIGEN (BIN AX NOW) 2024-01-29 15:19:00 Jacquelyn Finn [facility] POCT SARS-COV-2 ANTIGEN (BIN AX NOW) 2024-01-14 17:24:00 Palak Munguia [facility] EGD (ENDO) 2023-12-09 18:41:27 Liberty Watson [facility] EGD (ENDO) 2023-12-09 18:41:27 Obi-Shailesh [facility] ESOPHAGOGASTRODUODENOSCOPY 2023-12-09 18:04:00 Darian Begum [facility] POCT TEST 2023-12-09 00:00:00 Honey Holcomb [facility] POCT TEST 2023-12-09 00:00:00 Honey Holcomb [facility] PPD (TB) 2023-12-01 19:49:07 Obi-Shailesh, [facility] POCT URINALYSIS 2023-10-18 00:00:00 Ryderi-Shailesh [facility] POCT GLUCOSE (AUTOMATED) 2023-10-16 22:29:00 Joselo [facility] XR CHEST 1 VW 2023-10-16 21:12:14 Joselo [facility] POCT TEST 2023-10-16 21:01:00 Joselo [facility] COMP. METABOLIC PANEL (72537) 2023-10-16 20:53:00 Joselo [facility] CBC WITH DIFF 2023-10-16 20:53:00 Whitehouse [facility] URINALYSIS 2023-10-16 20:53:00 Joselo [facility] POCT GLUCOSE (AUTOMATED) 2023-10-16 20:21:00 Doctor Unassigned, [place] [facility] PAP SMEAR-LIQUID BASED-CP 2023-09-22 19:04:00 Mirian Wall [facility] POCT SARS-COV-2 ANTIGEN (BIN AX NOW) 2023-08-14 00:20:00 Palak Munguia [facility] POCT SARS-COV-2 ANTIGEN (BIN AX NOW) 2023-06-25 16:16:00 Hali Lema [facility] POCT MOLECULAR FLU 2023-06-25 16:02:00 Unknown, Attending [facility] POCT MOLECULAR STREP 2023-06-25 16:00:00 Unknown, Attending [facility] FLU VACC (), 6 MO-6 4 YRS, .5ML, IM, QUAD (FLUCELVAX) 2023-05-12 16:10:37 Liberty Watson [facility] CONSENT FOR CONTRACEPTION 2023-01-26 05:01:00 Doctor Unassigned, [place] [facility] POCT TEST 2023-01-26 00:00:00 Adum, Mirian Greenberg [facility] POCT URINALYSIS W/O SPECIFIC GRAVITY 2023-01-11 15:24:00 Nela Bone [facility] CONSENT FOR CONTRACEPTION 2022-12-31 05:01:00 Doctor Unassigned, [place] [facility] CBC WITH DIFF 2022-12-10 08:59:00 Keven Daniel [facility] HB -MATERNAL HEMORRHAGE SCREEN 2022-12-10 08:59:00 Keven Daniel [facility] VENOUS CORD GAS 2022-12-10 02:33:00 Keven Daniel [facility] PREPARE PACKED RBC 2022-12-09 22:47:42 Adum, Mirian Greenberg [facility] CENTRAL NEURAXIAL BLOCK 2022-12-09 20:55:00 Juan Carlos Arevalo [facility] CBC WITH DIFF 2022-12-09 18:59:00 Adum, Mirian Greenberg [facility] HEPATITIS B SURFACE ANTIGEN 2022-12-09 18:59:00 Adum, Mirian Greenberg [facility] HB ABO GROUPING 2022-12-09 18:59:00 Adum, Mirian Greenberg [facility] RHO (D) IMMUNE GLOBULIN 2022-12-09 18:59:00 Keven Daniel [facility] ADC OR MAGALY ONLY - RPR 2022-12-09 18:59:00 Adum, Mirian Greenberg [facility] HIV 1/2 AG-AB WITH REFLEX 2022-12-09 18:59:00 Adum, Mirian Greenberg [facility] US PELVIS > 14 WEEKS 2022-11-26 4 17:09:56 Adum, Mirian Greenberg [facility] GC & CHLAMYDIA AMPLIFIED ASSAY 2022-11-26 4 16:55:00 Adum, Mirian Greenberg [facility] ADC ONLY - FERN TEST 2022-12-09 16:55:00 Adum, Mirian Greenberg [facility] ASSIGNMENT OF BENEFITS 2022-12-09 14:14:55 Doctor Unassigned, [place] [facility] CONSENT/REFUSAL FOR DIAGNOSI S AND TREATMENT 2022-12-09 14:14:12 Doctor Unassigned, [place] [facility] NON-STRESS TEST 2022-12-09 04:01:38 Adum, Mirian Greenberg [facility] CONSENT/REFUSAL FOR DIAGNOSI S AND TREATMENT 2022-12-03 22:40:05 Doctor Unassigned, [place] [facility] NON-STRESS TEST 2022-12-01 23:40:44 Adum, Mirian Greenberg [facility] POCT URINALYSIS W/O SPECIFIC GRAVITY 2022-12-01 18:21:00 Adum, Mirian Greenberg [facility] URINALYSIS 2022-11-25 17:55:00 Adum, Mirian Greenberg [facility] POCT GLUCOSE (AUTOMATED) 2022-11-25 17:49:00 Adum, Mirian Greenberg [facility] CONSENT/REFUSAL FOR DIAGNOSI S AND TREATMENT 2022-11-25 15:45:52 Doctor Unassigned, [place] [facility] ASSIGNMENT OF BENEFITS 2022-11-25 15:43:30 Doctor Unassigned, [place] [facility] NOTICE OF PRIVACY PRACTICES 2022-11-19 17:08:50 Doctor Unassigned, [place] [facility] CONSENT/REFUSAL FOR DIAGNOSI S AND TREATMENT 2022-11-19 17:08:27 Doctor Unassigned, [place] [facility] POCT URINALYSIS W/O SPECIFIC GRAVITY 2022-11-17 00:00:00 Adum, Mirian Greenberg [facility] ASSIGNMENT OF BENEFITS 2022-11-09 18:26:54 Doctor Unassigned, [place] [facility] POCT URINALYSIS W/O SPECIFIC GRAVITY 2022-11-03 00:00:00 Adum, Mirian Greenberg [facility] EXTERNAL PROVIDER RECORDS 2022-10-29 05:01:00 Doctor Unassigned, [place] [facility] 3 HR GLUCOSE TOLERANCE TEST 2022-10-26 16:14:00 Adum, Mirian Greenberg [facility] 2 HR GLUCOSE TOLERANCE TEST 2022-10-26 15:18:00 Adum, Mirian Greenberg [facility] 1 HR GLUCOSE TOLERANCE TEST 2022-10-26 14:19:00 Adum, Mirian Greenberg [facility] GLUCOSE FASTING 2022-10-26 13:16:00 Adum, Mirian Greenberg [facility] GLYCOSYLATED HEMOGLOBIN (A1C) 2022-10-26 13:16:00 Adum, Mirian Greenberg [facility] 3 HR GLUCOSE TOLERANCE PANEL 2022-10-26 13:16:00 Adum, Mirian Greenberg [facility] TDAP VACCINE, >11 YRS, IM 2022-10-23 18:48:09 Adum, Mirian Greenberg [facility] POCT URINALYSIS W/O SPECIFIC GRAVITY 2022-10-22 18:47:00 Adum, Mirian Greenberg [facility] POCT URINALYSIS W/O SPECIFIC GRAVITY 2022-10-12 00:00:00 Adum, Mirian Greenberg [facility] CONSENT/REFUSAL FOR DIAGNOSI S AND TREATMENT 2022-10-11 18:25:40 Doctor Unassigned, [place] [facility] AUTHORIZATION FOR RELEASE OF PHI 2022-09 05:01:00 Doctor Unassigned, [place] [facility] SGOT (ASPARTATE AMINO TRANSFER) 02:29:00 Adum, Mirian Greenberg [facility] CREATININE 2022-09-26 02:29:00 Adum, Mirian Greenberg [facility] ALANINE AMINO TRANSFERASE(SGPT 1 02:29:00 Adum, Mirian Greenberg [facility] LACTATE DEHYDROGENASE 2022-09-26 02:29:00 Adum, Mirian Dionicio [facility] URIC ACID 2022-09-26 02:29:00 Adum, Mirina Greenberg [facility] CBC WITH DIFF 2022-09-26 02:29:00 Adum, Mirian Greenberg [facility] URINALYSIS 2022-09-26 02:29:00 Mirian Wall [facility] PROTEIN CREAT RATIO URINE RANDOM 2022-09 02:29:00 Mirian Wall [facility] CONSENT/REFUSAL FOR DIAGNOSI S AND TREATMENT 2022-09-26 01:34:01 Doctor Unassigned, [place] [facility] ASSIGNMENT OF BENEFITS 2022-09-26 01:33:46 Doctor Unassigned, [place] [facility] NOTICE OF PRIVACY PRACTICES 2022-09-03 03:15:26 Doctor Unassigned, [place] [facility] CONSENT/REFUSAL FOR DIAGNOSI S AND TREATMENT 2022-09-03 03:03:10 Doctor Unassigned, [place] [facility] GC & CHLAMYDIA AMPLIFIED ASSAY 2022-01-26 20:23:00 Fish, [facility] TRICHOMONAS AMPLIFIED ASSAY 2022-02-05 20:23:00 Fish, [facility] POCT TEST 2022-02-05 00:00:00 Fish, [facility] POCT URINALYSIS W/O SPECIFIC GRAVITY 2022-02-05 00:00:00 Fish [facility] REFERRAL- REQUEST/RESPONSE 2022-01-22 05:01:00 Doctor Unassigned, [place] [facility] Encounters Start Date/Time End Date/Time Encounter Type Admission Type Attending [facility] Facility Care Department Encounter ID Source 2022-12-03 19:06:[address] [facility] [id number] [facility] 2024-02-10 08:30:00 2024-02-10 09:05:26 Outpatient R SUAD HAMEED [facility] [id number] [facility] 2024-02-10 08:30:00 2024-02-10 09:05:26 Office Visit Suad Hameed 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 [facility] 1.2.840.114 350.1.13.10 4.2.7.2.686 [id number] [facility] 2024-02-09 13:30:00 2024-02-09 13:30:00 Outpatient R MIRIAN WALL VIVIAN [facility] [id number] [facility] 2024-02-01 00:00:00 2024-02-01 16:49:24 Patient Secure Msg Mirian Wall [facility] 1.84.114 350.1.13.10 4.2.7.2.686 [id number] [facility] 2024-01-29 10:00:00 2024-01-29 10:29:28 Outpatient R MAGED BROWN [facility] [id number] [facility] 2024-01-29 10:00:00 2024-01-29 10:29:28 Urgent Care Maged Brown Unknown, Attending [facility] 1.840.114 350.1.13.10 4.2.7.2.686 [id number] [facility] 2024-01-14 12:20:00 2024-01-14 12:40:00 Urgent Care Palak Munguia Unknown, Attending [facility] 1.84.114 350.1.13.10 4.2.7.2.686 [id number] [facility] 2024-01-14 12:20:00 2024-01-14 12:20:00 Outpatient R PALAK MUNGUIA [facility] [id number] [facility] 2024-01-05 13:20:00 2024-01-05 13:20:00 Outpatient R OBI-SHAILESH LIBERTY OBI-SHAILESH LIBERTY [facility] [id number] [facility] 2023-11-19 00:00:00 2023-12-25 18:20:32 Patient Secure Msg Doctor Unassigned, [place] [facility] 1.84.114 350.1.13.10 4.2.7.2.686 [id number] [facility] 2023-12-23 10:15:00 2023-12-23 10:51:26 Outpatient R BOLA-LIBERTY CASH [facility] [id number] [facility] 2023-12-23 10:15:00 2023-12-23 10:30:00 Heel Sprayer First Visit Lab, Júnior Deluca Shirley [facility] 1..840.114 350.1.13.10 4.2.7.2.686 [id number] [facility] 2023-12-22 00:00:00 2023-12-22 16:43:11 Patient Secure Msg [facility]inny[facility]afsa [facility] 1..840.114 350.1.13.10 4.2.7.2.686 [id number] [facility] 2023-12-21 15:00:00 2023-12-21 16:22:55 Outpatient R CHARLENE ARANDA [facility] [id number] [facility] 2023-12-21 15:00:00 2023-12-21 16:22:55 Office Visit Rosi [facility] 1..840.114 350.1.13.10 4.2.7.2.686 [id number] [facility] 2023-12-21 14:45:00 2023-12-21 15:00:00 Heel Sprayer First Visit Lab, Júnior Deluca Rosi [facility] NIR?[facility] 1..840.114 350.1.13.10 4.2.7.2.686 [id number] [facility] 2023-11-11 00:00:00 2023-12-18 18:25:05 Patient Secure Msg Nga Wisdom Henriquez [facility] 1.2840.114 350.1.13.10 4.2.7.2.686 [id number] [facility] 2023-12-14 00:00:00 2023-12-16 08:18:23 Patient Secure Msg Liberty Watson [facility] PROFESSIO NAL BUILDING 1.2840.114 350.1.13.10 4.2.7.2.686 [id number] [facility] 2023-12-09 12:34:00 2023-12-09 14:51:00 Outpatient Edward BEGUMDARIAN [facility] JUSTO [id number] [facility] 2023-12-09 12:34:00 2023-12-09 14:51:00 Hospital Encounter Darian Begum [facility] 1.20.114 350.1.13.10 4.2.7.2.686 [id number] [facility] 2023-12-09 13:30:00 2023-12-09 14:00:00 Surgery Darian Begum [facility] 1.20.114 350.1.13.10 4.2.7.2.686 [id number] [facility] 2023-12-03 15:00:00 2023-12-03 15:20:00 Nurse Visit [facility], [facility] 1.2840.114 350.1.13.10 4.2.7.2.686 [id number] [facility] 2023-12-03 15:00:00 2023-12-03 15:00:00 Outpatient SASHA VALENCIA [facility] [id number] [facility] 2023-12-03 10:00:00 2023-12-03 10:00:00 Outpatient R [facility] [id number] [facility] 2023-12-01 15:40:00 2023-12-01 15:40:00 [facility]..840.114 350.1.13.10 4.2.7.2.686 [id number] [facility] 2023-12-01 15:40:00 2023-12-01 14:56:47 Outpatient R LIBERTY WATSON [facility] [id number] [facility] 2023-11-25 11:30:00 2023-11-25 11:58:27 Outpatient R SOUMYA BAXTER [facility] [id number] [facility] 2023-11-25 11:30:00 2023-11-25 11:58:27 Nurse Visit Visit, [facility] Dermatology Nurse Soumya Baxter [facility] .840.114 350.1.13.10 4.2.7.2.686 [id number] [facility] 2023-11-19 13:40:00 2023-11-19 14:24:48 Outpatient R HUE GUSTAFSON [facility] [id number] [facility] 2023-11-19 13:40:00 2023-11-19 14:00:00 Urgent Care Hue Gustafson, Attending [facility] 1..840.114 350.1.13.10 4.2.7.2.686 [id number] [facility] 2023-10-07 00:00:00 2023-11-13 18:10:54 Patient Secure Msg [facility] BUILDING 1.2.840.114 350.1.13.10 4.2.7.2.686 [id number] [facility] 2023-11-08 15:00:00 2023-11-08 15:35:09 Outpatient CHUCK DANG [facility] [id number] [facility] 2023-11-08 15:00:00 2023-11-08 15:35:09 Office Visit Chuck Liu [facility] 1.2840.114 350.1.13.10 4.2.7.2.686 [id number] [facility] 2023-10-04 00:00:00 2023-11-06 18:09:41 Patient Secure Msg Doctor Unassigned, [place] [facility] 1.2840.114 350.1.13.10 4.2.7.2.686 [id number] [facility] 2023-10-04 00:00:00 2023-11-06 18:09:28 Patient Secure Msg Dago Ibarra [facility] 1.2.840.114 350.1.13.10 4.2.7.2.686 [id number] [facility] [facility]-05 00:00:00 2023-11-06 18:08:36 Patient Secure Msg Doctor Unassigned, [place] [facility] 1.2.840.114 350.1.13.10 4.2.7.2.686 [id number] 044 [id number] [facility] 2023-11-04 14:30:00 2023-11-04 14:43:31 Outpatient R CHUCK LIU [facility] [id number] [facility] 2023-11-04 14:30:00 2023-11-04 14:43:31 Office Visit Nga Wisdom [facility] 1.2840.114 350.1.13.10 4.2.7.2.686 [id number] [facility] 2023-11-04 13:00:00 2023-11-04 13:15:00 Heel Sprayer First Visit 2, Adc Lab Obi-Shailesh , [facility] 1.2840.114 350.1.13.10 4.2.7.2.686 [id number] 353 [id number] [facility] 2023-11-01 10:00:00 2023-11-01 10:00:00 Outpatient R [facility] [id number] [facility] 2023-10-26 00:00:00 2023-10-26 00:00:00 Telephone [place], [facility] 1.0.114 350.1.13.10 4.2.7.2.686 [id number] 071 [id number] [facility] 2023-10-25 11:30:00 2023-10-25 11:45:00 Heel Sprayer First Visit [facility] Glory [facility] 1..114 350.1.13.10 4.2.7.2.686 [id number] [facility] 2023-10-25 11:30:00 2023-10-25 11:30:00 Outpatient R CHUCHO PENNINGTON [facility] [id number] [facility] 2023-10-25 11:00:00 2023-10-25 11:30:00 Office Visit [place], [facility] 1..114 350.1.13.10 4.2.7.2.686 [id number] 071 [id number] [facility] 2023-10-25 00:00:00 2023-10-25 00:00:00 Telephone Glory [facility] 1.2.840.114 350.1.13.10 4.2.7.2.686 [id number] 071 [id number] [facility] 2023-10-25 00:00:00 2023-10-25 00:00:00 Patient Secure Msg [place] [facility] 1.0.114 350.1.13.10 4.2.7.2.686 [id number] 071 [id number] [facility] 2023-10-20 00:00:00 2023-10-20 00:00:00 Telephone Postella bird [facility] 1.0.114 350.1.13.10 4.2.7.2.686 [id number] 071 [id number] [facility] 2023-10-18 13:00:00 2023-10-18 13:34:24 Outpatient R LIBERTY WATSON [facility] [id number] [facility] 2023-10-18 13:00:00 2023-10-18 13:34:24 [facility] 1.20.114 350.1.13.10 4.2.7.2.686 [id number] 044 [id number] [facility] 2023-10-16 15:23:00 2023-10-16 17:53:00 Emergency X JOSELO, [facility] E[facility] [id number] [facility] 2023-10-16 15:23:00 2023-10-16 17:53:00 Emergency [facility] 1.20.114 350.1.13.10 4.2.7.2.686 [id number] 084 [id number] [facility] 2023-10-13 00:00:00 2023-10-13 00:00:00 Refill Obi-Shailesh , [facility] 1.2840.114 350.1.13.10 4.2.7.2.686 [id number] 044 [id number] [facility] 2023-10-12 00:00:00 2023-10-12 00:00:00 Letter (Out) [facility] 1.2840.114 350.1.13.10 4.2.7.2.686 [id number] [facility] 2023-10-12 00:00:00 2023-10-12 00:00:00 Telephone Shirley [facility] 1.2840.114 350.1.13.10 4.2.7.2.686 [id number] 044 [id number] [facility] 2023-10-07 10:00:00 2023-10-07 10:15:00 Heel Sprayer First Visit [facility] Tha Interiano [facility] 1.2840.114 350.1.13.10 4.2.7.2.686 [id number] [facility] 2023-10-07 09:00:00 2023-10-07 09:30:00 Office Visit Sheyla Moore [facility] 1.2840.114 350.1.13.10 4.2.7.2.686 [id number] 071 [id number] [facility] 2023-10-07 09:00:00 2023-10-07 09:00:00 Outpatient THA GARBER [facility] [id number] [facility] 2023-10-07 00:00:00 2023-10-07 00:00:00 [facility] 1.2840.114 350.1.13.10 4.2.7.2.686 [id number] 044 [id number] [facility] 2023-10-05 00:00:00 2023-10-05 00:00:00 Telephone [facility] 1.2.840.114 350.1.13.10 4.2.7.2.686 [id number] 044 [id number] [facility] 2023-10-03 00:00:00 2023-10-03 00:00:00 Patient Secure Msg Dago Ibarra [facility] NAL [facility] 1.2.840.114 350.1.13.10 4.2.7.2.686 [id number] 044 [id number] [facility] 2023-10-01 15:15:00 2023-10-01 15:30:00 Heel Sprayer First Visit 2, Adc Lab Shirley Liberty [facility] NAL [facility]ILD[facility] 1.2.840.114 350.1.13.10 4.2.7.2.686 [id number] 353 [id number] [facility] 2023-10-01 14:00:00 2023-10-01 15:10:37 Outpatient R DAGO IBARRA OGECHUKWU [facility] [id number] [facility] 2023-10-01 14:00:00 2023-10-01 14:30:00 Office Visit Dago Ibarra [facility] 1.2.840.114 350.1.13.10 4.2.7.2.686 [id number] 044 [id number] [facility] 2023-09-22 13:30:00 2023-09-22 14:07:04 Outpatient R MIRIAN WALL [facility] [id number] [facility] 2023-09-22 13:30:00 2023-09-22 14:07:04 Office Visit Adum, Mirian L [facility] 1.2840.114 350.1.13.10 4.2.7.2.686 [id number] 134 [id number] [facility] 2023-09-19 00:00:00 2023-09-19 00:00:00 Patient Secure Msg Doctor Unassigned, [place] [facility] 1.2840.114 350.1.13.10 4.2.7.2.686 [id number] 220 [id number] [facility] 2023-09-14 00:00:00 2023-09-14 00:00:00 Refill [facility]in[facility] 1.2840.114 350.1.13.10 4.2.7.2.686 [id number] 044 [id number] [facility] 2023-09-09 00:00:00 2023-09-09 00:00:00 Refill [facility]bi[facility]ailesh [facility] 1.2840.114 350.1.13.10 4.2.7.2.686 [id number] 044 [id number] [facility] 2023-09-08 00:00:00 2023-09-08 00:00:00 Telephone Rosi Charlene [facility] NIR?[facility] 1.2840.114 350.1.13.10 4.2.7.2.686 [id number] 220 [id number] [facility] 2023-09-08 00:00:00 2023-09-08 00:00:00 Telephone Rosi [facility] NIR?[facility] 1.2840.114 350.1.13.10 4.2.7.2.686 [id number] 220 [id number] [facility] 2023-09-07 15:00:00 2023-09-07 15:40:26 Outpatient R CHARLENE ARANDA [facility] [id number] [facility] 2023-09-07 15:00:00 2023-09-07 15:40:26 Office Visit Rosi [facility] NIR?[facility] 1.2.840.114 350.1.13.10 4.2.7.2.686 [id number] 220 [id number] [facility] 2023-09-07 00:00:00 2023-09-07 00:00:00 Telephone [facility] 1.2.840.114 350.1.13.10 4.2.7.2.686 [id number] 044 [id number] [facility] 2023-09-07 00:00:00 2023-09-07 00:00:00 Telephone [facility]i [facility] 1.840.114 350.1.13.10 4.2.7.2.686 [id number] 220 [id number] [facility] 2023-09-07 00:00:00 2023-09-07 00:00:00 Patient Secure Msg Doctor Unassigned, [place] [facility] 1.2840.114 350.1.13.10 4.2.7.2.686 [id number] 220 [id number] [facility] 2023-09-07 00:00:00 2023-09-07 00:00:00 Telephone [facility]ian [facility] 1.2.840.114 350.1.13.10 4.2.7.2.686 [id number] 134 [id number] [facility] 2023-09-06 16:15:00 2023-09-06 16:30:00 Heel Sprayer First Visit Lab, Ang - Db Bola-Shailesh [facility] 1.2.840.114 350.1.13.10 4.2.7.2.686 [id number] 353 [id number] [facility] 2023-09-06 16:15:00 2023-09-06 16:15:00 Outpatient R OBI-LIBERTY CASH OBI-SHAILESH , [facility] [id number] [facility] 2023-09-06 15:00:00 2023-09-06 15:21:14 Office Visit Shirley [facility] NAL BUILD[facility] 1.2.840.114 350.1.13.10 4.2.7.2.686 [id number] 044 [id number] [facility] 2023-09-06 00:00:00 2023-09-06 00:00:00 Refill [facility] 1.2.840.114 350.1.13.10 4.2.7.2.686 [id number] 044 [id number] [facility] 2023-09-06 00:00:00 2023-09-06 00:00:00 Telephone Rosi [facility]JOVANILizandro [facility] 1.2.840.114 350.1.13.10 4.2.7.2.686 [id number] 220 [id number] [facility] 2023-09-01 13:20:00 2023-09-01 13:20:00 Outpatient R OBI-SHAILESHLIBERTY Huitron OBI-SHAILESH , [facility] [id number] [facility] 2023-08-20 00:00:00 2023-08-20 00:00:00 Refill Rosi [facility] 1..840.114 350.1.13.10 4.2.7.2.686 [id number] 220 [id number] [facility] 2023-08-13 18:20:00 2023-08-13 18:40:00 [place], Attending [facility] 1.840.114 350.1.13.10 4.2.7.2.686 [id number] [facility] 2023-08-13 18:20:00 2023-08-13 18:20:00 Outpatient R HALI LEMA [facility] [id number] [facility] 2023-06-25 09:20:00 2023-06-25 10:22:05 Outpatient R CARMELO SHEEHAN [facility] [id number] [facility] 2023-06-25 09:20:00 2023-06-25 10:22:05 Urgent Care Jose Fzionenrique Carmelo Unknown, Attending [facility] 1.840.114 350.1.13.10 4.2.7.2.686 [id number] 370 [id number] [facility] 2023-06-16 13:00:00 2023-06-16 13:26:21 Outpatient R LIBERTY [facility] [id number] 2023-06-16 13:00:00 2023-06-16 13:26:21 Office [facility] 1..840.114 350.1.13.10 4.2.7.2.686 [id number] 044 [id number] [facility] 2023-06-16 00:00:00 2023-06-16 00:00:00 Telephone Obi-Shailesh , [facility] 1.2.840.114 350.1.13.10 4.2.7.2.686 [id number] 044 [id number] [facility] 2023-06-16 00:00:00 2023-06-16 00:00:00 Telephone Shirley [facility] 1.2.840.114 350.1.13.10 4.2.7.2.686 [id number] 044 [id number] [facility] 2023-06-15 09:00:00 2023-06-15 09:00:00 Outpatient R OBI-SHAILESH , LIBERTY OBI[facility]SHAILESH , [facility] [id number] [facility] 2023-06-14 13:00:00 2023-06-14 13:00:00 Outpatient R OBI-SHAILESH , LIBERTY OBI[facility]SHAILESH , [facility] [id number] [facility] 2023-06-02 15:20:00 2023-06-02 15:49:08 Outpatient R OBI-SHAILESH , LIBERTY OBI[facility]SHAILESH , [facility] [id number] [facility] 2023-06-02 15:20:00 2023-06-02 15:49:08 [facility] 1.2.840.114 350.1.13.10 4.2.7.2.686 [id number] [id number] [facility] 2023-05-27 11:00:00 2023-05-27 11:00:00 Outpatient R OBI-SHAILESH , LIBERTY OBI[facility]SHAILESH , [facility] [id number] [facility] 2023-05-26 09:20:00 2023-05-26 09:20:00 Outpatient R OBI-SHAILESH , LIBERTY OBI[facility]SHAILESH , [facility] [id number] [facility] 2023-05-15 00:00:00 2023-05-15 00:00:00 Patient Secure Msg Doctor Unassigned, [place] [facility] 1.2.840.114 350.1.13.10 4.2.7.2.686 [id number] [id number] [facility] 2023-05-14 09:00:00 2023-05-14 10:00:40 Outpatient R ROSI [facility] [id number] [facility] 2023-05-14 09:00:00 2023-05-14 10:00:40 [facility] 1.2.840.114 350.1.13.10 4.2.7.2.686 [id number] 220 [id number] [facility] 2023-05-12 11:00:00 2023-05-12 11:15:00 Heel Sprayer First Visit 2, Adc Lab Obrobbin-Shailesh [facility] BUILDING 1.2.840.114 350.1.13.10 4.2.7.2.686 [id number] 353 [id number] [facility] 2023-05-12 10:00:00 2023-05-12 10:47:03 Outpatient R OBI-SHAILESH , LIBERTY OBI-SHAILESH , [facility] [id number] [facility] 2023-05-12 10:00:00 2023-05-12 10:47:03 Office Visit Shirley [facility] 1.2.840.114 350.1.13.10 4.2.7.2.686 [id number] [id number] [facility] 2023-05-10 08:00:00 2023-05-10 08:00:00 Outpatient R OBI-SHAILESH , LIBERTY OBI-SHAILESH , LIBERTY [facility] [id number] [facility] 2023-03-10 13:30:00 2023-03-10 13:30:00 Outpatient R OLAYINKA CHERRY [facility] [id number] [facility] 2023-02-04 00:00:00 2023-02-04 00:00:00 Patient Secure Msg Adum, [facility] 1..840.114 350.1.13.10 4.2.7.2.686 [id number] 134 [id number] [facility] 2023-02-02 00:00:00 2023-02-02 00:00:00 Patient Secure Msg Adum, [facility] 1.840.114 350.1.13.10 4.2.7.2.686 [id number] 134 [id number] [facility] 2023-01-26 15:30:00 2023-01-26 16:41:21 Outpatient R MONICA [facility] [id number] [facility] 2023-01-26 15:30:00 2023-01-26 16:41:[address] [facility] 1.2.840.114 350.1.13.10 4.2.7.2.686 [id number] 134 [id number] [facility] 2023-01-26 00:00:00 2023-01-26 00:00:00 Orders Only Doctor Unassigned, [place] [facility] 1.284.114 350.1.13.10 4.2.7.2.686 [id number] [facility] 2023-01-11 10:00:00 2023-01-11 11:17:26 Outpatient R CORONA-TERRY S, NELA CORONA-TERRY S, NELA [facility] [id number] [facility] 2023-01-11 10:00:00 2023-01-11 10:30:00 [facility] 1.2.840.114 350.1.13.10 4.2.7.2.686 [id number] 134 [id number] [facility] 2022-12-31 13:00:00 2022-12-31 13:50:06 Outpatient R ADLENNIE COLESIAN [facility] [id number] [facility] 2022-12-31 13:00:00 2022-12-31 13:50:06 Routine Visit AdLennie colesian Dionicio [facility] 1.2.840.114 350.1.13.10 4.2.7.2.686 [id number] 134 [id number] [facility] 2022-12-31 00:00:00 2022-12-31 00:00:00 Orders Only Doctor Unassigned, [place] [facility] 1.2.840.114 350.1.13.10 4.2.7.2.686 [id number] [facility] 2022-12-25 14:15:00 2022-12-25 14:15:00 Outpatient P [facility] [id number] [facility] 2022-12-24 00:00:00 2022-12-24 00:00:00 Telephone Adum, Mirian Greenberg [facility] 1.2.840.114 350.1.13.10 4.2.7.2.686 [id number] 134 [id number] [facility] 2022-12-22 13:00:00 2022-12-22 13:00:00 Outpatient R ADSHARYN, MIRIAN [facility] [id number] [facility] 2022-12-15 13:00:00 2022-12-15 13:00:00 Outpatient R ADUM, MIRIAN [facility] [id number] [facility] 2022-12-14 00:00:00 2022-12-14 00:00:00 Encounter 1.2.840.1 97923.1.1 3.104.2.7 .2.381622 1.2.840.114 350.1.13.10 4.2.7.2.696 [id number] [facility] 2022-12-09 09:22:00 2022-12-10 12:55:00 Hospital Encounter Keven Daniel Cam Adsharyn, [facility] 1.0.114 350.1.13.10 4.2.7.2.686 [id number] [facility] 2022-12-09 09:22:00 2022-12-10 12:55:00 Inpatient X [facility]N [facility] [id number] [facility] 2022-12-09 15:55:00 2022-12-09 21:22:00 Anesthesia Event Juan Carlos Arevalo [facility] 1.0.114 350.1.13.10 4.2.7.2.686 [id number] [id number] [facility] 2022-12-09 00:00:00 2022-12-09 00:00:00 Orders Only Doctor Unassigned, [place] [facility] 1.2840.114 350.1.13.10 4.2.7.2.686 [id number] [facility] 2022-12-09 00:00:00 2022-12-09 00:00:00 Telephone Adsharyn Mirian Dionicio [facility] 1.2840.114 350.1.13.10 4.2.7.2.686 [id number] 134 [id number] [facility] 2022-12-08 13:00:00 2022-12-08 14:06:40 Outpatient R ADUM, MIRIAN [facility] [id number] [facility] 2022-12-08 13:00:00 2022-12-08 14:06:40 Routine Visit Room, [facility] Nst Adum, Mirian Greenberg [facility] 1.840.114 350.1.13.10 4.2.7.2.686 [id number] 134 [id number] [facility] 2022-12-03 18:04:00 2022-12-03 19:06:00 Outpatient X ADUM, [facility] [id number] [facility] 2022-12-03 18:04:00 2022-12-03 19:06:00 Emergency Adum, Mirian [facility] 1.0.114 350.1.13.10 4.2.7.2.686 [id number] 083 [id number] [facility] 2022-12-02 13:00:00 2022-12-02 14:00:00 Heel Sprayer First Visit 3, [facility] Us Jamey Velazquez [facility] 1..114 350.1.13.10 4.2.7.2.686 [id number] [facility] 2022-12-02 13:00:00 2022-12-02 13:00:00 Outpatient JAMEY WHITE [facility] [id number] [facility] 2022-12-02 00:00:00 2022-12-02 00:00:00 Case Management Timo Corona [facility] 1.2.114 350.1.13.10 4.2.7.2.686 [id number] 134 [id number] [facility] 2022-12-01 13:00:00 2022-12-01 13:53:15 Outpatient R ADUM, [facility] [id number] [facility] 2022-12-01 13:00:00 2022-12-01 13:53:15 Routine Visit Room, [facility] Nst AdMirian coles [facility] 1.2.840.114 350.1.13.10 4.2.7.2.686 [id number] 134 [id number] [facility] 2022-12-01 13:00:00 2022-12-01 13:00:00 Outpatient R ADMIRIAN COLES [facility] [id number] [facility] 2022-11-25 10:37:00 2022-11-25 16:55:00 Out[facility] P [facility] [id number] 2022-11-25 10:37:00 2022-11-25 16:55:00 Hospital Encounter AdMirian coles [facility] 1.2.840.114 350.1.13.10 4.2.7.2.686 [id number] [facility] 2022-11-25 00:00:00 2022-11-25 00:00:00 Telephone AdMirian coles [facility] 1.2.840.114 350.1.13.10 4.2.7.2.686 [id number] 134 [id number] [facility] 2022-11-24 10:00:00 2022-11-24 10:00:00 Outpatient R [facility] [id number] [facility] 2022-11-22 00:00:00 2022-11-22 00:00:00 Nurse Triage Abigail Neely [facility] 1.2.840.114 350.1.13.10 4.2.7.2.686 [id number] [facility] 2022-11-19 12:21:00 2022-11-19 13:45:00 Outpatient X ADUM, MIRIAN [facility] [id number] [facility] 2022-11-19 12:21:00 2022-11-19 13:45:00 Emergency Adum, Mirian Greenberg [facility] 1.2.840.114 350.1.13.10 4.2.7.2.686 [id number] [id number] [facility] 2022-11-17 13:15:00 2022-11-17 13:42:03 Outpatient R ADUM, MIRIAN [facility] [id number] [facility] 2022-11-17 13:15:00 2022-11-17 13:42:03 Routine Visit Adsharyn, Mirian [facility] 1.2.840.114 350.1.13.10 4.2.7.2.686 [id number] 134 [id number] [facility] 2022-11-09 13:27:57 2022-11-09 14:18:09 Outpatient R ADUM, MIRIAN [facility] [id number] [facility] 2022-11-09 13:30:00 2022-11-09 13:45:00 Heel Sprayer First Visit 2, Adc Lab Adum, Mirian [facility] 1.2.840.114 350.1.13.10 4.2.7.2.686 [id number] 353 [id number] [facility] 2022-11-09 00:00:00 2022-11-09 00:00:00 Orders Only Doctor Unassigned, [place] [facility] 1.2.840.114 350.1.13.10 4.2.7.2.686 [id number] [facility] 2022-11-09 00:00:00 2022-11-09 00:00:00 Telephone Adum, Mirian [facility] 1.2.840.114 350.1.13.10 4.2.7.2.686 [id number] 134 [id number] [facility] 2022-11-03 16:00:00 2022-11-03 16:43:05 Outpatient R ADUM, MIRIAN [facility] [id number] [facility] 2022-11-03 16:00:00 2022-11-03 16:43:05 Routine Visit Adum, Mirian Greenberg [facility] 1.2840.114 350.1.13.10 4.2.7.2.686 [id number] 134 [id number] [facility] 2022-11-02 10:00:00 2022-11-02 10:41:26 Outpatient R ADUM, MIRIAN [facility] [id number] [facility] 2022-11-02 10:00:00 2022-11-02 10:41:26 Nurse Visit Nurse, [facility] Adum, Mirian [facility] 1.20.114 350.1.13.10 4.2.7.2.686 [id number] 134 [id number] [facility] 2022-10-29 00:00:00 2022-10-29 00:00:00 Orders Only Doctor Unassigned, [place] [facility] 1.2840.114 350.1.13.10 4.2.7.2.686 [id number] [facility] 2022-10-29 00:00:00 2022-10-29 00:00:00 Telephone Adum, Mirian Greenberg [facility] 1.2840.114 350.1.13.10 4.2.7.2.686 [id number] 134 [id number] [facility] 2022-10-29 00:00:00 2022-10-29 00:00:00 Telephone Adum, Mirian [facility] 1.2840.114 350.1.13.10 4.2.7.2.686 [id number] 134 [id number] [facility] 2022-10-28 00:00:00 2022-10-28 00:00:00 Telephone Adum, Mirian [facility] 1.2.840.114 350.1.13.10 4.2.7.2.686 [id number] 134 [id number] [facility] 2022-10-28 00:00:00 2022-10-28 00:00:00 Case Management RoxannealliejaylonTimo porras [facility] 1.2840.114 350.1.13.10 4.2.7.2.686 [id number] 134 [id number] [facility] 2022-10-26 08:15:00 2022-10-26 11:25:08 Heel Sprayer First Visit 2, [facility] Adum, [facility] 1.2840.114 350.1.13.10 4.2.7.2.686 [id number] [facility] 2022-10-26 08:15:00 2022-10-26 08:15:00 Outpatient R ADSHARYN, [facility] [id number] [facility] 2022-10-26 00:00:00 2022-10-26 00:00:00 Telephone Adum, [facility] NIR?[facility] 1.2840.114 350.1.13.10 4.2.7.2.686 [id number] [facility] 2022-10-23 14:00:00 2022-10-23 14:15:00 Nurse Visit Nurse, [facility] Ad, [facility] 1.2.840.114 350.1.13.10 4.2.7.2.686 [id number] 134 [id number] [facility] 2022-10-23 08:45:00 2022-10-23 09:16:08 Outpatient R ADUM, M[facility] [id number] [facility] 2022-10-23 08:45:00 2022-10-23 09:00:00 Heel Sprayer First Visit 2, [facility] Lab Adum, Mirian Greenberg [facility] 1.2.840.114 350.1.13.10 4.2.7.2.686 [id number] [facility] 2022-10-22 13:45:00 2022-10-22 14:35:18 Outpatient R ADUM, [facility] [id number] [facility] 2022-10-22 13:45:00 2022-10-22 14:35:18 Routine Visit Adum, Mirian [facility] 1.2.840.114 350.1.13.10 4.2.7.2.686 [id number] 134 [id number] [facility] 2022-10-12 00:00:00 2022-10-12 00:00:00 Telephone Adum, Mirian Greenberg [facility] 1.2.840.114 350.1.13.10 4.2.7.2.686 [id number] 134 [id number] [facility] 2022-10-11 13:33:00 2022-10-11 14:55:00 Outpatient X CORONA-TERRY S, NELA CORONA-TERRY S, NELA [facility] [id number] [facility] 2022-10-11 13:33:00 2022-10-11 14:55:00 Emergency Corona-Terry s, Nela [facility] 1.2.840.114 350.1.13.10 4.2.7.2.686 [id number] [facility] 2022-10-09 14:00:00 2022-10-09 15:41:13 [facility] [id number] 2022-10-09 14:00:00 2022-10-09 15:41:13 Initial Visit Adum, Mirian Greenberg [facility] 1.2.840.114 350.1.13.10 4.2.7.2.686 [id number] 134 [id number] [facility] 2022-10-09 00:00:00 2022-10-09 00:00:00 Orders Only Doctor Unassigned, [place] [facility] 1.2.840.114 350.1.13.10 4.2.7.2.686 [id number] 009 [id number] [facility] 2022-09-25 21:02:00 2022-09-25 22:42:00 Outpatient X ADUM, [facility] [id number] [facility] 2022-09-25 21:02:00 2022-09-25 22:42:00 Emergency Adum, Mirian [facility] 1.2.840.114 350.1.13.10 4.2.7.2.686 [id number] [id number] [facility] 2022-09-25 00:00:00 2022-09-25 00:00:00 Orders Only Doctor Unassigned, [place] [facility] 1.2.840.114 350.1.13.10 4.2.7.2.686 [id number] 009 [id number] [facility] 2022-09-02 21:12:00 2022-09-02 22:20:00 Outpatient P KEVEN DANIEL [facility] [id number] [facility] 2022-09-02 21:12:00 2022-09-02 22:20:00 Hospital Encounter Keven Daniel [facility] 1.2.840.114 350.1.13.10 4.2.7.2.686 [id number] [id number] [facility] 2022-08-17 00:00:00 2022-08-17 00:00:00 Outpatient GC_SWHATBIC _C[facility]_S PRIV PRIV [id number] [facility] 2022-08-14 00:00:00 2022-08-14 00:00:00 Outpatient GC_SWHATBIC _[facility]_S PRIV PRIV [id number] [facility] 2022-08-12 00:00:00 2022-08-12 00:00:00 Outpatient GC_SWHATBIC _Cone_S PRIV PRIV [id number] [facility] 2022-08-11 00:00:00 2022-08-11 00:00:00 Outpatient GC_SWHATBIC _Cone_S PRIV PRIV [id number] [facility] 2022-07-04 11:10:00 2022-07-04 16:53:00 Emergency EM Lynda-Rajesh Srinivasan [facility] SIA [id number] [address] [facility] 2022 12:30:00 2022 12:30:00 Outpatient Ibrahima Peñaloza [facility] [id number] [address] [facility] 2022-02-27 12:24:00 2022-02-27 12:24:00 Outpatient Ibrahima Peñaloza [facility] [id number] [address] [facility] 2022-02-12 16:00:00 2022-02-12 16:00:00 Outpatient DOUG MARTI [facility] [id number] [facility] 2022-02-12 00:00:00 2022-02-12 00:00:00 Telephone Doug Blancas [facility] 1.840.114 350.1.13.10 4.2.7.2.686 [id number] 134 [id number] [facility] 2022-02-10 00:00:00 2022-02-10 00:00:00 Telephone Timo Corona [facility] 1..840.114 350.1.13.10 4.2.7.2.686 [id number] 134 [id number] [facility] 2022-02-09 13:30:00 2022-02-09 13:50:52 Outpatient R TIMO CORONA CHERYAL [facility] [id number] [facility] 2022-02-09 13:30:00 2022-02-09 13:50:52 Outpatient R TIMO CORONA [facility] [id number] [facility] 2022-02-09 13:30:00 2022-02-09 13:50:52 Routine Visit TaniaTimo porras [facility] 1.2840.114 350.1.13.10 4.2.7.2.686 [id number] 134 [id number] [facility] 2022-02-09 00:00:00 2022-02-09 00:00:00 Telephone Doug Blancas [facility] 1.2.114 350.1.13.10 4.2.7.2.686 [id number] 134 [id number] [facility] 2022-02-05 14:30:00 2022-02-05 15:29:27 Outpatient R DOUG BLANCAS [facility] [id number] [facility] 2022-02-05 14:30:00 2022-02-05 15:29:27 Initial Visit Doug Blancas [facility] 1.2840.114 350.1.13.10 4.2.7.2.686 [id number] 134 [id number] [facility] 2022-02-05 00:00:00 2022-02-05 00:00:00 Letter (Out) Doug Blancas [facility] 1.2.840.114 350.1.13.10 4.2.7.2.686 [id number] 134 [id number] [facility] 2022-02-04 00:00:00 2022-02-04 00:00:00 Telephone Doug Blancas [facility] 1.2.840.114 350.1.13.10 4.2.7.2.686 [id number] 134 [id number] [facility] 2022-01-22 00:00:00 2022-01-22 00:00:00 Orders Only Doctor Unassigned, [place] [facility] 1.2.840.114 350.1.13.10 4.2.7.2.686 [id number] [id number] [facility] 2021-10-24 11:30:00 2021-10-24 12:15:20 Office Visit Timo Corona [facility] 1.2.840.114 350.1.13.10 4.2.7.2.686 [id number] 134 [id number] [facility] 2021-10-24 11:30:00 2021-10-24 12:15:20 Outpatient R TIMO CORONA ROXANNEJAC [facility] [id number] [facility] 2021-10-24 11:30:00 2021-10-24 11:30:00 [facility] [id number] [facility] 2021-10-24 00:00:00 2021-10-24 00:00:00 Orders Only Doctor Unassigned, [place] [facility] 1.2.840.114 350.1.13.10 4.2.7.2.686 [id number] 009 [id number] [facility] 2019-07-15 01:27:00 2019-07-15 01:27:00 Emergency AFSHIN LUIS [id number] [facility] 2019-06-12 15:21:00 2019-06-12 18:15:00 Departed Emergency [id number] [facility] 2012-10-10 11:00:00 2012-10-10 12:25:04 Outpatient GUS KULKARNI [facility] [id number] [facility] Results Test Description Test Time Test Comments Results Result Co mments Source [facility] SARS-COV-2 ANTIGEN (BINAX NOW)2024-01-29 15:19:00* Test Item Value Reference Range Interpretation Comme nts POCT SARS-COV-2 ANTIGEN (test code = 30892-9) Not Detected Not Detected, See Comment On board controls acceptable with C Line (test code = 3574) Yes TIM (test code = TIM) accurate developme nt and interpretation of all internal controls Lab Interpretation (test code = 56232-7) Normal [facility] SARS-COV-2 ANTIGEN (BINAX NOW)2024-01-14 17:24:00* Test Item Value Reference Range Interpretation Comme nts POCT SARS-COV-2 ANTIGEN (test code = 20631-1) Not Detected Not Detected, See Comment On board controls acceptable with C Line (test code = 3574) Yes TIM (test code = TIM) accurate developme nt and interpretation of all internal controls Lab Interpretation (test code = 68292-1) Normal [facility] [id number] 18:02:00* Test Item Value Reference Range Interpretation Comme nts POCT PREG (test code = 1605) Negative On board controls acceptable with C Line (test code = 3574) Yes POCT PREG LOT # (test code = 3575) [id number] POCT PREG TEST DATE ( test code = 3576) 10/29/24 Lab Interpretation (test cod e = 99192-6) Normal [facility] [id number] 18:02:00* Test Item Value Reference Range Interpretation Comme nts POCT PREG (test code = 1605) Negative On board controls acceptable with C Line (test code = 3574) Yes POCT PREG LOT # (test code = 3575) [id number] POCT PREG TEST DATE ( test code = 3576) 10/29/24 Lab Interpretation (test cod e = 98878-2) Normal [facility] Urinalysis W Specific Bdzmxeg1972-35-74 18:36:00* Test Item Value Reference Range Interpretation [...] U APPEAR (test code = 3267) Clear [facility] Urinalysis W Specific Vvkyabm9910-51-98 18:36:00* Test Item Value Reference Range Interpretation [...] U APPEAR (test code = 3267) Clear [facility] Urinalysis W Specific Fhrzmqw3981-65-21 18:36:00* Test Item Value Reference Range Interpretation [...] U APPEAR (test code = 3267) Clear [facility]2023-10-16 22:30:46* Test Item Value Reference Range Interpretation Comme nts POCT GLU (test code = 1364553900) 137 mg/dL 70-110 H Lab Interpretation (test cod e = 61923-9) Abnormal [facility]. METABOLIC PANEL (19401)2023-10-16 21:48:18* Test Item Value Reference Range Interpretation Comme nts NA (test code = 2747137710) 138 mmol/L 135-145 K (test code = 3582791603) 4.7 mmol/L 3.5-5.0 CL (test code = 0093863800) 105 mmol/L 98-108 CO2 TOTAL (test code = 8550715102) 23 mmol/L 23-31 AGAP (test code = 7210627028) 10 2-16 BUN (test code = 5000353401) 15 mg/dL 7-23 GLUCOSE (test code = 9248858563) 120 mg/dL 70-110 H CREATININE (test code = 2160-0) 0.58 mg/dL 0.50-1.04 TOTAL BILI (test code = 2796077972) 0.7 mg/dL 0.1-1.1 CALCIUM (test code = 3368592484) 9.4 mg/dL 8.6-10.6 T PROTEIN (test code = 3361235541) 9.1 g/dL 6.3-8.2 H ALBUMIN (test code = 1976794312) 4.6 g/dL 3.5-5.0 ALK PHOS (test code = 9758541817) 114 U/L 34-122 ALTv (test code = 1742-6) 94 U/L 5-35 H AST(SGOT) (test code = 8631845793) 67 U/L 13-40 H eGFR (test code = 48721-8) 128.2 mL/min/1.73m2 CKD-EPI eGFR (2020). Assuming creatinine has been stable day-to-day for at least three months, the eGFR indicates Category G1 (>= 90 mL/min/1.73 m2) Lab Interpretation (test code = 83443-5) Abnormal [facility] WITH [id number] 21:33:31* Test Item Value Reference Range Interpretation [...] g/dL 31.6-35.1 L RDW-SD (test code = 52281-2) 47.5 fL 39.0-49.9 RDW-CV (test code = 788-0) 16.5 % 12.0-15.5 H PLT (test code = 777-3) 330 166-358 MPV (test code = 36343-8) 11.9 fL 9.5-12.9 NRBC/100 WBC (test code = 2795281608) 0.0 0.0-10.0 NRBC x10^3 (test code = 6893764537) See_Comment [Automated messa ge] The system which generated this result transmitted reference range: 10*3/?L. The reference range was not used to interpret this result as normal/abnormal. GRAN MAT (NEUT) % (test code = 770-8) 50.1 % IMM GRAN % (test code = 8240568132) 0.40 % LYMPH % (test code = 736-9) 41.7 % MONO % (test code = 5905-5) 6.1 % EOS % (test code = 713-8) 1.1 % BASO % (test code = 706-2) 0.6 % GRAN MAT x10^3(ANC) (test code = 7959107504) 3.61 10*3/uL 1.88-7.09 IMM GRAN x10^3 (test code = 6532247840) 0.03 10*3/uL 0.00-0.06 LYMPH x10^3 (test code = 731-0) 3.00 10*3/uL 1.32-3.29 MONO x10^3 (test code = 742-7) 0.44 10*3/uL 0.33-0.92 EOS x10^3 (test code = 711-2) 0.08 10*3/uL 0.03-0.39 BASO x10^3 (test code = 704-7) 0.04 10*3/uL 0.01-0.07 Lab Interpretation (test code = 77614-3) [facility]normal [facility] [id number] 21:18:26EXAM: XR CHEST 1 10/16/2023 4:03 PM HISTORY: 28 years-old Female with weakness . TECHNIQUE: Portable AP view of the chest. COMPARISON: None. FINDINGS: Lines and tubes: None. Cardiomediastinal: The cardiomediastinal silhouette is unremarkable. Lungs and pleura: The lungs are clear. No focal consolidation,pneumothorax, or pleural effusion is seen. Included osseous structures show no acute abnormality. [facility] [id number] 21:01:00* Test Item Value Reference Range Interpretation Comme nts POCT PREG (test code = 1605) Negative On board controls acceptable with C Line (test code = 3574) Yes POCT PREG LOT # (test code = 3575) [id number] POCT PREG TEST DATE ( test code = 3576) 08/04/2024 Lab Interpretation (test cod e = 74365-2) Normal [facility] GLUCOSE (AUTOMATED)2023-10-16 20:32:36* Test Item Value Reference Range Interpretation Comme nts POCT GLU (test code = 0702578984) 77 mg/dL 70-110 Lab Interpretation (test cod e = 64553-7) Normal [facility] SARS-COV-2 ANTIGEN (BINAX NOW)2023-08-14 00:36:00* Test Item Value Reference Range Interpretation Comme nts POCT SARS-COV-2 ANTIGEN (test code = 07310-7) Positive Not Detected A On board controls acceptable with C Line (test code = 3574) Yes TIM (test code = TIM) accurate developme nt and interpretation of all internal controls Lab Interpretation (test code = 38601-0) Abnormal [facility] SARS-COV-2 ANTIGEN (BINAX NOW)2023-06-25 16:17:00* Test Item Value Reference Range Interpretation Comme nts POCT SARS-COV-2 ANTIGEN (test code = 13610-5) Not Detected Not Detected On board controls acceptable with C Line (test code = 3574) Yes TIM (test code = TIM) accurate developme nt and interpretation of all internal controls [facility] Molecular [id number] 16:14:45* Test Item Value Reference Range Interpretation Comme nts POCT Molecular FluA (test co de = 94463-1) Negative Negative POCT Molecular FluB (test co de = 91125-1) Negative Negative Lab Interpretation (test cod e = 99482-6) Normal [facility] MOLECULAR [id number] 16:08:16* Test Item Value Reference Range Interpretation Comme nts POCT Molecular Strep (test c ode = 66850-4) Negative Negative Lab Interpretation (test cod e = 44689-1) Normal [facility] [id number] 20:56:00* Test Item Value Reference Range Interpretation Comme nts POCT PREG (test code = 1605) Negative On board controls acceptable with C Line (test code = 3574) Yes POCT PREG LOT # (test code = 3575) POCT PREG TEST DATE ( test code = 3576) [facility] URINALYSIS W/O SPECIFIC [id number] 15:24:00* Test Item Value Reference Range Interpretation [...] = 3257) Trace Negative - Negati ve [facility] URINALYSIS W/O SPECIFIC [id number] 15:24:00* Test Item Value Reference Range Interpretation [...] = 3257) Trace Negative - Negati ve [facility] with Wyfgykwfbfuk2462-24-50 12:11:12* Test Item Value Reference Range Interpretation [...] 32.5 g/dL 31.6-35.1 RDW-SD (test code = 36006-6) 37.9 fL 39.0-49.9 L RDW-CV (test code = 788-0) 12.5 % 12.0-15.5 PLT (test code = 777-3) 212 See_Comment [Automated Tasspassa ge] The system which generated this result transmitted reference range: 166 - 358 10*3/?L. The reference range was not used to interpret this result as normal/abnormal. MPV (test code = 67390-9) 13.7 fL 9.5-12.9 H IPF % (test code = 6359385882) 12.4 % 1.3-7.7 H Platelet count measured by fluorescence method. NRBC/100 WBC (test code = 4728125532) 0.0 See_Comment [Automated [employer] Translate ssage] The system which generated this result transmitted reference range: 0.0 - 10.0 /100 WBCs. The reference range was not used to interpret this result as normal/abnormal. NRBC x10^3 (test code = 6247102476) See_Comment [Automated Tasspassa [employer]] The system which generated this result transmitted reference range: 10*3/?L. The reference range was not used to interpret this result as normal/abnormal. GRAN MAT (NEUT) % (test code = 770-8) 88.8 % IMM GRAN % (test code = 5731374655) 0.50 % LYMPH % (test code = 736-9) 5.2 % MONO % (test code = 5905-5) 5.4 % EOS % (test code = 713-8) 0.0 % BASO % (test code = 706-2) 0.1 % GRAN MAT x10^3(ANC) (test code = 8006909805) 13.10 10*3/uL 1.88-7.09 H IMM GRAN x10^3 (test code = 9735849235) 0.08 10*3/uL 0.00-0.06 H LYMPH x10^3 (test code = 731-0) 0.77 10*3/uL 1.32-3.29 L MONO x10^3 (test code = 742-7) 0.79 10*3/uL 0.33-0.92 EOS x10^3 (test code = 711-2) 0.03-0.39 L BASO x10^3 (test code = 704-7) 0.01-0.07 Lab Interpretation (test code = 03784-6) Abnormal [facility] CenterFETAL MATERNAL HEMO [id number] 10:52:00 * Test Item Value Reference Range Interpretation Comme nts SCREEN (test code = 846) Negative RHIG REQUIRED? (test code = 1747) 1 Syringe Patient is a can didate for RhIg- Patient is Rh Negative and baby is Rh Positive. [facility] CenterRHO (D) IMMUNE OFUGNJFK6117-69-32 03:51:49* Test Item Value Reference Range Interpretation Comme nts RHIG CANDIDATE? (test code = 5188) Yes- see comment A Patient is a candidate for RhIg- Patient is Rh Negative and baby is Rh Positive.Performe d at [facility] Laboratory Services - [facility] Blood [address] [place] [id number] Free: [phone] No. [id number] Lab Interpretation (test code = 43591-7) Abnormal [facility] CenterHIV 1/2 AG-AB WITH [id number] 01:30:48* Test Item Value Reference Range Interpretation Comme nts HIV Semi-quantitative (test code = 72188-6) 0.18 Negative TIM (test code = TIM) Non-reactive for HIV-1 antigen and HIV-1/HIV-2 antibodies. ?No laboratory evidence of HIV infection. ?Repeat in 2-4 weeks if acute HIV infection is suspected. [facility] CenterADC OR MAGALY ONLY - [id number] 01:11:37* Test Item Value Reference Range Interpretation Comme nts RPR (Qualitative) (test code = 36909-6) Nonreactive Nonreactive Lab Interpretation (test cod e = 46046-6) Normal [facility] CenterHepatitis B Surface Kfyrool0445-36-48 23:04:27 * Test Item Value Reference Range Interpretation Comme nts HBsAg Semi-Quantitative (chavez t code = 5195-3) 0.04 Negative [facility] CenterCBC with Nhbibfwmlrhy0245-80-95 19:26:49* Test Item Value Reference Range Interpretation [...] 32.2 g/dL 31.6-35.1 RDW-SD (test code = 32050-5) 37.8 fL 39.0-49.9 L RDW-CV (test code = 788-0) 12.4 % 12.0-15.5 PLT (test code = 777-3) 218 See_Comment [Automated messa ge] The system which generated this result transmitted reference range: 166 - 358 10*3/?L. The reference range was not used to interpret this result as normal/abnormal. MPV (test code = 53897-3) 13.0 fL 9.5-12.9 H NRBC/100 WBC (test code = 5593799766) 0.0 See_Comment [Automated me ssage] The system which generated this result transmitted reference range: 0.0 - 10.0 /100 WBCs. The reference range was not used to interpret this result as normal/abnormal. NRBC x10^3 (test code = 8301923190) See_Comment [Automated messa ge] The system which generated this result transmitted reference range: 10*3/?L. The reference range was not used to interpret this result as normal/abnormal. GRAN MAT (NEUT) % (test code = 770-8) 77.2 % IMM GRAN % (test code = 4835583783) 0.30 % LYMPH % (test code = 736-9) 15.6 % MONO % (test code = 5905-5) 6.5 % EOS % (test code = 713-8) 0.2 % BASO % (test code = 706-2) 0.2 % GRAN MAT x10^3(ANC) (test code = 7278810031) 6.76 10*3/uL 1.88-7.09 IMM GRAN x10^3 (test code = 2720925651) 0.03 10*3/uL 0.00-0.06 LYMPH x10^3 (test code = 731-0) 1.37 10*3/uL 1.32-3.29 MONO x10^3 (test code = 742-7) 0.57 10*3/uL 0.33-0.92 EOS x10^3 (test code = 711-2) 0.03-0.39 L BASO x10^3 (test code = 704-7) 0.01-0.07 Lab Interpretation (test code = 20722-3) Abnormal [facility] CenterType and Screen - ONCE [id number] 19:22:00 * Test Item Value Reference Range Interpretation Comme nts ABO & RH (test code = 20) A Negative IAT (test code = 1185) Positive [facility] CenterPOCT URINALYSIS W/O SPECIFIC [id number] 18:21:00* Test Item Value Reference Range Interpretation [...] internal controls Lab Interpretation (test code = 34681-1) Normal [facility] GLUCOSE (AUTOMATED)2022-11-25 18:00:27* Test Item Value Reference Range Interpretation Comme nts POCT GLU (test code = 1974441903) 80 mg/dL 70-110 Lab Interpretation (test cod e = 15925-6) Normal [facility] URINALYSIS W/O SPECIFIC [id number] 18:17:00* Test Item Value Reference Range Interpretation [...] = 3257) n/a Negative - Negati ve [facility] URINALYSIS W/O SPECIFIC WNHODEF4104-68-13 05:00:00* Test Item Value Reference Range Interpretation [...] = 3257) NA Negative - Negati ve [facility] URINALYSIS W/O SPECIFIC [id number] 18:47:00* Test Item Value Reference Range Interpretation [...] = 3257) n/a Negative - Negati ve [facility] CenterPO[facility] URINALYSIS W/O SPECIFIC [id number] 16:02:00* Test Item Value Reference Range Interpretation [...] = 3257) n/a Negative - Negati ve [facility] CenterUric Acid Ufyba3035-10-09 03:12:06* Test Item Value Reference Range Interpretation Comme nts URIC ACID (test code = 8529312078) 2.6 mg/dL 2.9-6.0 L Lab Interpretation (test cod e = 17728-1) Abnormal [facility] CenterAlanine Amino Transferase (SGPT)2022-09-26 03:12:06* Test Item Value Reference Range Interpretation Comme nts ALTv (test code = 1742-6) 11 U/L 5-35 Lab Interpretation (test cod e = 55516-2) Normal [facility] CenterLactate Lgytutdvrvabj4821-70-86 03:12:06* Test Item Value Reference Range Interpretation Comme nts LDH (test code = 0664668690) 123 U/L 120-246 Lab Interpretation (test cod e = 72253-1) Normal [facility] CenterSGOT (Asparate Amino Transfer)2022-09-26 03:11:46* Test Item Value Reference Range Interpretation Comme nts AST(SGOT) (test code = 6769893678) 19 U/L 13-40 Lab Interpretation (test cod e = 39954-2) Normal [facility] Tsmyphvawk5977-25-79 03:11:45* Test Item Value Reference Range Interpretation Comme nts CREATININE (test code = 9621081674) 0.35 mg/dL 0.50-1.04 L eGFR (test code = 4126473224) 226.9 mL/min/1.73m2 TIM (test code = TIM) [...] imaging tests). Lab Interpretation (test code = 12744-7) Abnormal [facility] with Jrdakanhbonb0905-65-28 03:09:28* Test Item Value Reference Range Interpretation [...] 34.5 g/dL 31.6-35.1 RDW-SD (test code = 49123-9) 39.4 fL 39.0-49.9 RDW-CV (test code = 788-0) 12.5 % 12.0-15.5 PLT (test code = 777-3) 231 See_Comment [Automated Tasspassa ge] The system which generated this result transmitted reference range: 166 - 358 10*3/?L. The reference range was not used to interpret this result as normal/abnormal. MPV (test code = 28110-0) 11.8 fL 9.5-12.9 NRBC/100 WBC (test code = 5927675300) 0.0 See_Comment [Automated [employer] Translate ssage] The system which generated this result transmitted reference range: 0.0 - 10.0 /100 WBCs. The reference range was not used to interpret this result as normal/abnormal. NRBC x10^3 (test code = 4156539842) See_Comment [Automated Tasspassa ge] The system which generated this result transmitted reference range: 10*3/?L. The reference range was not used to interpret this result as normal/abnormal. GRAN MAT (NEUT) % (test code = 770-8) 56.2 % IMM GRAN % (test code = 9348257919) 0.20 % LYMPH % (test code = 736-9) 34.4 % MONO % (test code = 5905-5) 8.0 % EOS % (test code = 713-8) 0.9 % BASO % (test code = 706-2) 0.3 % GRAN MAT x10^3(ANC) (test code = 3294917426) 4.88 10*3/uL 1.88-7.09 IMM GRAN x10^3 (test code = 9234155396) 0.00-0.06 LYMPH x10^3 (test code = 731-0) 3.00 10*3/uL 1.32-3.29 MONO x10^3 (test code = 742-7) 0.70 10*3/uL 0.33-0.92 EOS x10^3 (test code = 711-2) 0.08 10*3/uL 0.03-0.39 BASO x10^3 (test code = 704-7) 0.03 10*3/uL 0.01-0.07 Lab Interpretation (test code = 14558-2) [facility] [id number] 14:22:00 * Test Item Value Reference Range Interpretation Comme nts THYROID STIMULATING HORMONE (test code = TSH) 1.88 0.36-3.74 N Test Performed i n MicroInternational Units/mL HCG [id number] 13:55:00* Test Item Value Reference Range Interpretation Comme nts HCG SERUM (test code = HCG) 33600 INTERPRETATION:V ALUES BETWEEN 15-20 milliInternational units/mL NEED TO BERETESTED WITHIN 48 HOURS. All units for these ranges are in milliInternationalunits/mL0-1 WK AFTER CONCEPTION 0-50 1-2 WKS AFTER CONCEPTION 40-3002-3 WKS AFTER CONCEPTION 100-1,0003-4 WKS AFTER CONCEPTION 500-6,0001-2 MONTHS AFTER CONCEPTION 5,000-200,0002-3 MONTHS AFTER CONCEPTION 10,000-100,0002ND TRIMESTER 3,000-50,0003RD TRIMESTER 1,000-50,000 SPECIMENS WITH AN HCG LEVEL FROM 0-6 milliInternationalunits/mL SHOULD BE CONSIDERED NEGATIVE COMPREHENSIVE METABOLIC [id number] 13:24:00* Test Item Value Reference Range Interpretation [...] 46-116 N UA RFLX MICR CULT IF [id number] 13:14:00* Test Item Value Reference Range Interpretation [...] code = URO) 0.2 EU/dL See_Comment [Automated Tasspassa ge] The system which generated this result [...] culture: Suprapubic PainSpecimen Description: CLEAN CATCHCBC W/AUTO [id number] 13:02:00* Test Item Value Reference Range Interpretation [...] PLTMR) NORMAL NORMAL - US PREG UT [id number] 00:00:[address] [facility] : 1995 Sex: F Patient Name: DEYSI ALVAREZ Unit No: [id number] EXAMS: CPT CODE: [id number] US PREG UT TRANSVAGINAL 14697 PROCEDURE INFORMATION: Exam: US First Trimester (Transabdominal), [...] EGA (MSD) is 13 w 6 d Stevens-Rump length: 77.7 mm. EGA (CRL) is 13 [...] No intraperitoneal free fluid. IMPRESSION: [facility] [place] [facility] NAME: DEYSI ALVAREZ Radiology Department PHYS: Rajesh Olea [address] : 1995 AGE: 27 SEX: F [place], [place] [address] LOC: BonnieERS PHONE #: [phone] EXAM DATE: 07/04/2022 STATUS: REG ER FAX#: [phone] RAD NO: Page 1 Signed Report (CONTINUED) Patient Name: DEYSI ALVAREZ Unit No: [id number] EXAMS: CPT CODE: [id number] US PREG UT TRANSVAGINAL 01754 (Continued) 1. Single live intrauterine gestation corresponding to 13 weeks and 6 days by crown-rump length. 2. heart ac tivity of 157 the the bpm. 3. Low-lying placenta with 6.5 x 1.1 x 3.3 cm retroplacental hemorrhage along the lower uterine segment. 3.2 x 3.5 x 0.8 cm subchorionic hemorrhage along the left anterolateral aspect of the gestational sac. [id number] Reported and signed by: Bruna Aguilar MD CC: Rajesh Leavitt MD; Ibrahima Peñaloza III, MD Technologist: Jane Bundy RDMS Probe: [id number] Trnscrbd D/ (1551) GCD.CPS Orig Print D/T: S: 07/04/2022 (1552) [facility] NAME: DEYSI ALVAREZNE Radiology Department PHYS: Rajesh Olea [address] : 1995 AGE: 27 SEX: F [place], [place] [address] LOC: DEA PHONE #: [phone] EXAM DATE: 07/04/2022 STATUS: REG ER FAX #: [phone] RAD NO: Page 2 Signed Report Patient Name: DEYSI ALVAREZ Unit No: [id number] EXAMS: CPT CODE: [id number] US PREG UT TRANSVAGINAL 51978 (Continued) [facility] NAME: EDYSI ALVAREZIANNE Radiology Department PHYS: Rajesh Olea [address] : 1995 AGE: 27 SEX: F [place], [place] [address] LOC: DEA PHONE #: [phone] EXAM DATE: 07/04/2022 STATUS: REG ER FAX #: [phone] RAD NO: Page 3 Signed Report- DUP AB/PEL/SC/LGK4841-70-09 00:00:[address] [facility] : 1995 Sex: F Patient Name: DEYSI ALVAREZ Unit No: [id number] EXAMS: CPT CODE: [id number] DUP AB /PEL/SC/LTD 53684 PROCEDURE INFORMATION: Exam: US First Trimester (Transabdominal), [...] EGA (MSD) is 13 w 6 d Stevens-Rump nichole gth: 77.7 mm. EGA (CRL) is [...] No intraperitoneal free fluid. IMPRESSION: [facility] [place] [facility] NAME: DEYSI ALVAREZ Radiology Department PHYS: Rajesh Olea [address] : 1995 AGE: 27 SEX: F [place], [place] [address] LOC: DEA PHONE #: [phone] EXAM DATE: 07/04/2022 STATUS: REG ER FAX #: RAD NO: Page 1 Signed Report (CONTINUED) Patient Name: DEYSI ALVAREZ Unit No: [id number] EXAMS: CPT CODE: [id number] DUP AB/PEL/SC/LTD 71019 (Continued) 1. Single live intrauterine gestation corresponding to 13 weeks and 6 days by crown-rump length. 2. heart activity of 157 the the bpm. 3. Low- lying placenta with [...] Orig Print D/T: S: 07/04/2022 (1551) [facility] NAME: DEYSI ALVAREZ Radiology Department PHYS: Rajesh Olea [address] : 1995 AGE: 27 SEX: F [place] [address] LOC: BonnieERS PHONE #: [phone] EXAM DATE: 07/04/2022 STATUS: REG ER FAX #: [phone] RAD NO: Page 2 Signed Report Patient Name: DEYSI ALVAREZ Unit No: [id number] EXAMS: CPT CODE: [id number] DUP AB/PEL/SC/LTD 54575 (Continued) [facility] NAME: DEYSI ALVAREZ Radiology Department PHYS: Rajesh Olea [address] : 1995 AGE: 27 SEX: F [place], [place] [address] LOC: Jennifer.ERS PHONE #: [phone] EXAM DATE: 07/04/2022 STATUS: REG ER FAX #: [phone] RAD NO: Page 3 Signed Report- US PREG EVAL 1ST [id number] 00:00:[address] [facility] : 1995 Sex: F Patient Name: DEYSI ALVAREZ Unit No: [id number] EXAMS: CPT CODE: [id number] US PREG EVAL 1ST TRIMTR 85904 PROCEDURE INFORMATION: Exam: US First Trimester (Transabdominal), [...] EGA (MSD) is 13 w 6 d Stevens-Rump length: 77.7 mm. EGA (CRL) is 13 [...] No intraperitoneal free fluid. IMPRESSION: [facility] [place] [facility] NAME: DEYSI ALVAREZ Radiology Department PHYS: Rajesh Olea [address] : 1995 AGE: 27 SEX: F [place], [place] [address] LOC: DEA PHONE #: [phone] EXAM DATE: 07/04/2022 STATUS: REG ER FAX#: [phone] RAD NO: Page 1 Signed Report (CONTINUED) Patient Name: DEYSI ALVAREZ Unit No: [id number] EXAMS: CPT CODE: [id number] US PREG EVAL 1ST TRIMTR 91090 (Continued) 1. Single liveintrauterine gestation corresponding to [...] Ibrahima SANCHEZ Technologist: Jane Bundy RDMS Probe: Trnscrbd D/ (1551) GCD.CPS Orig Print D/T: S:07/04/2022 (1551) [facility] NAME: DEYSI ALAVREZ Radiology DepartmentPHYS: THEA CastroRajesh [address] : 1995 AGE: 27 SEX: F [place] [address] LOC: DEA PHONE #: [phone] EXAM DATE: 07/04/2022 STATUS: REG ER FAX #:[phone] RAD NO: Page 2 Signed Report Patient Name: DEYSI ALVAREZ Unit No: [id number] EXAMS: CPT CODE: [id number] US PREG EVAL 1ST TRIMTR 07782 (Continued) [facility] NAME: DEYSI ALVAREZNE Radiology Department PHYS: Rajesh Rajan [address] : 1995 AGE: 27 SEX: F [place] [address] LOC: DEA PHONE #: [phone] EXAM DATE: 07/04/2022 STATUS: REG ER FAX #: [phone] RAD NO: Page 3 Signed ReportSURGICAL 2022-03-03 14:46:00* Test Item Value Reference Range Interpretation Comme nts SURGICAL (test code = SR) -----RUN DATE: 03/03/22 [facility] PAGE 1 RUN TIME: 1446 Specimen Inquiry RUN USER: INTERFACE -----PATIENT: DEYSI ALVAREZ LOC: REYNA U #: [id number] AGE/SX: 26/F ROOM: RE02/27/22REG DR: Ibrahima Peñaloza III, MD : [birth year] BED: DIS: STATUS: REG REF TLOC: ----- SPEC #: [id number] RECD: 02/27/22 STATUS: SARAHI RE #: [id number] RONI: 02/27/22-1026 [facility] DR: Ibrahima Peñaloza III, MD ENTERED: 02/27/22 SP TYPE: SURGICAL OTHR DR: ORDERED: ANATOMIC SPEC, SPEC TRACK, 07098 PROCEDURES: 11630 (02/27/22) TISSUES: A. PRODUCTS OF CONCEPTION - [...] 4 cassettes A1-A4.02/27/22 Technical component performed at [employer],[address], [place] [address] Unless gross only, the diagnosis is based [...] END OF REPORT POCT URINALYSIS W/O SPECIFIC [id number] 19:35:00* Test Item Value Reference Range Interpretation [...] = 3257) n/a Negative - Negati ve [facility] [id number] 19:34:00* Test Item Value Reference Range Interpretation Comme nts POCT PREG (test code = 1605) Positive On board controls acceptable with C Line (test code = 3574) Yes POCT PREG LOT # (test code = 3575) POCT PREG TEST DATE ( test code = 3576) [facility]IT)2019-07-15 04:00:00* Test Item Value Reference Range Interpretation Comme nts HCGQUAL (test code = HCGQUAL) NEGATIVE NEGATIVE URINE: NEGATIVE = < 20 mIU/ML; POSITIVE= >/= 20 mIU/ML SERUM: NEGATIVE = < 10 mIU/ML; POSITIVE= >/= 10 mIU/ML SOURCE (test code = SOURCE) URINE HCG INTERNAL POSITIVE CNTRL (test code = HCGIPC) PASS PASS HCG LOT # (test code = UHCGLOT) [id number] HCG EXPIRATION DATE (test code = UHCGEXP) 10-16 RPRCBXILHT7560-04-95 03:58:00* Test Item Value Reference Range Interpretation [...] = BACTERIA) MODERATE NONE Urinalysis specimen collection sbamfn9289-08-01 16:35:00* Test Item Value Reference Range Interpretation Comme nts Urine Source (test code = 82002-4) URINE [facility] HealthColor of Urine by Vaqj0204-12-87 16:35:00* Test Item Value Reference Range Interpretation Comme nts Urine Color (test code = 01137-8) Yellow Yel-Diane * [facility] HealthUrine clarity ifdiaphjqfrhn0579-66-54 16:35:00* Test Item Value Reference Range Interpretation Comme nts Urine Appearance (test code = 75244-9) Clear Clear * [facility] HealthUrine pH measurement by automated test mwinh8861-38-48 16:35:00* Test Item Value Reference Range Interpretation Comme nts Urine pH (test code = 02266-3) 5.0 5.0-8.0 [facility] HealthSpecific gravity of Urine by Automated test qflwm5298-51-58 16:35:00* Test Item Value Reference Range Interpretation Comme nts Urine Specific [place] (test code = 73870-2) 1.029 1.005-1.030 [facility] HealthUrine protein measurement by automated test strip (mass/volume) 2019-06-12 16:35:00* Test Item Value Reference Range Interpretation Comme nts Urine Protein (test code = 22481-1) 10 mg/dL Negative * [facility] HealthUrine glucose measurement by automated test strip (mass/volume) 2019-06-12 16:35:00* Test Item Value Reference Range Interpretation Comme nts Urine Glucose (UA) (test cod e = 42063-1) Negative mg/dL Negative * [facility] HealthUrine ketones measurement by automated test strip (mass/volume) 2019-06-12 16:35:00* Test Item Value Reference Range Interpretation Comme nts Urine Ketones (test code = 50374-7) Trace mg/dL Negative * [facility] HealthUrine erythrocytes count by automated test strip (number/volume) 2019-06-12 16:35:00* Test Item Value Reference Range Interpretation Comme nts Urine Occult Blood (test cod e = 59059-0) Negative Negative * [facility] HealthUrine nitrite detection by automated test igzox9285-54-82 16:35:00* Test Item Value Reference Range Interpretation Comme nts Urine Nitrite (test code = 80369-7) Negative Negative [facility] HealthUrine total bilirubin measurement by automated test strip (mass/volume)2019-06-12 16:35:00* Test Item Value Reference Range Interpretation Comme nts Urine Bilirubin (test code = 95268-3) Negative mg/dL Negative [facility] HealthUrine urobilinogen measurement by automated test strip (mass/volume)2019-06-12 16:35:00* Test Item Value Reference Range Interpretation Comme nts Urine Urobilinogen (test cod e = 29954-8) Negative mg/dL 0.0-1.0 [facility] HealthUrine leukocytes count by automated test strip (number/volume) 2019-06-12 16:35:00* Test Item Value Reference Range Interpretation Comme nts Urine Leukocyte Esterase (test code = 43288-9) Negative {Darcie}/uL Negative [facility] HealthMicroscopic examination of necsu7241-69-49 16:35:00* Test Item Value Reference Range Interpretation Comme nts Microscopic Urinalysis (T) ( test code = 18146-5) ----- [facility] HealthUrine sediment erythrocyte count by microscopy (number/high power field)2019-06-12 16:35:00* Test Item Value Reference Range Interpretation Comme nts Urine RBC (test code = 85739-3) 0-2 /[HPF] 0-2 [facility] HealthUrine sediment leukocyte [...] Comme nts Urine Crystals (test code = 52084-3) None Seen /[HPF] None * [facility] HealthUrine [...] HealthYeast detection in urine sediment by light nwogjlnmfu3572-16-54 16:35:00* Test Item Value Reference Range Interpretation Comme nts Urine Yeast (test code = 30387-2) None Seen /[HPF] None [facility] HealthService comment [...] HealthAutomated erythrocyte mean corpuscular hemoglobin concentration measurement (mass/fxu1036-70-12 16:25:00* Test Item Value Reference Range Interpretation Comme nts Mean Corpuscular Hemoglobin Concent (test code = 786-4) 31.6 g/dL 33.0-37.0 [facility] HealthAutomated erythrocyte distribution width ffxdy6394-49-36 16:25:00 * Test Item Value Reference Range Interpretation Comme [facility] Red Cell Distribution Width (test code = 788-0) 12.3 % 10.7-14.5 [facility] HealthAutomated blood platelet count (count/volume)2019-06-12 16:25:00 * Test Item Value Reference Range Interpretation Comme [facility] Platelet Count (test code = 777-3) 295 10*3/uL 150-450 [facility] HealthAutomated blood platelet mean volume hsgtiqyxmui8928-55-08 16:25:00* Test Item Value Reference Range Interpretation Comme nts Mean Platelet Volume (test c ode = 26801-7) 11.0 5.7-10.7 [facility] HealthService comment 002165-18-47 16:25:00* Test Item Value Reference Range Interpretation Comme nts Manual Differential (test co de = 8265-1) ----- [facility] HealthManual blood segmented neutrophils/100 juswmqvvwp0514-44-21 16:25:00* Test Item Value Reference Range Interpretation Comme nts Neutrophils % (Manual) (test code = 769-0) 47 % 42-75 [facility] HealthManual blood band neutrophils form/100 jemwgydhnk2477-14-02 16:25:00* Test Item Value Reference Range Interpretation Comme nts Band Neutrophils % (Manual) (test code = 764-1) 4 % 5-11 [facility] HealthManual blood lymphocytes/100 ghklnggrjl3688-51-35 16:25:00* Test Item Value Reference Range Interpretation Comme nts Lymphocytes % (Manual) (test code = 737-7) 43 % 21-51 [facility] HealthManual blood monocytes/100 awcbhnhhkf6686-80-45 16:25:00* Test Item Value Reference Range Interpretation Comme nts Monocytes % (Manual) (test c ode = 744-3) 4 % 1-9 [facility] HealthManual blood eosinophil count as percentage of total leukocytes 2019-06-12 16:25:00* Test Item Value Reference Range Interpretation Comme nts Eosinophils % (Manual) (test code = 714-6) 1 % 0-7 [facility] HealthManual blood basophils/100 tkznrpipoi3345-03-52 16:25:00* Test Item Value Reference Range Interpretation Comme nts Basophils % (Manual) (test c ode = 707-0) 1 % 0-2 [facility] HealthBlood platelet detection by light rwdiggbtdp4882-31-30 16:25:00* Test Item Value Reference Range Interpretation Comme nts Platelet Estimate (test code = 9317-9) Adequate [facility] HealthBlood erythrocyte morphology finding cdzbymqxqwgwle0929-64-25 16:25:00* Test Item Value Reference Range Interpretation [...] Carbon Dioxide Level (test c ode = 2028-9) 23 mmol/L 22-29 [facility] HealthSerum or plasma anion gap determination (moles/volume)2019-06-12 16:25:00* Test Item Value Reference Range Interpretation Comme nts Anion Gap (test code = 82928-4) 14 8-18 [facility] HealthSerum or plasma urea nitrogen measurement (mass/volume)2019-06-12 16:25:00* Test Item Value Reference Range Interpretation Comme nts Blood Urea Nitrogen (test co de = 3094-0) 10 mg/dL 7-19 [facility] HealthSerum or plasma creatinine measurement (mass/volume)2019-06-12 16:25:00* Test Item Value Reference Range Interpretation Comme nts Creatinine (test code = 2160-0) 0.7 mg/dL 0.6-1.1 [facility] HealthGFR estimate LICU9690-51-26 16:25:00* Test Item Value Reference Range Interpretation Comme nts Estimat Glomerular Filtratio n Rate (test code = 94730-0) 111 90-142 [facility] HealthSerum or plasma glucose measurement (mass/volume)2019-06-12 16:25:00* Test Item Value Reference Range Interpretation Comme nts Glucose Level (test code = 2345-7) 127 mg/dL 60-100 [facility] HealthSerum or plasma calcium measurement (mass/volume)2019-06-12 16:25:00* Test Item Value Reference Range Interpretation Comme nts Calcium Level (test code = 70034-2) 9.5 mg/dL 8.4-10.2 [facility] HealthSerum or plasma [...] c ode = 6768-6) 78 U/L 40-150 [facility] HealthSerum or plasma lipase measurement (enzymatic activity/volume) 2019-06-12 16:25:00* Test Item Value Reference Range Interpretation Comme nts Lipase (test code = 3040-3) 21 U/L 8-78 [facility] 1 VIEW GBDKQNPA3904-27-67 07:15:[address] [address]LZZZLRXANC IMAGING REPORTPa tient Name: DEYSI ALVAREZ BDate of Service: 25-46-5508Yzw: 23 Sex: F Order #: 1000 [facility] 1995 [facility] Number: [id number] Record Number: [id number] Hospital Number: [id number] Physician: GABBY THOMASOrderyvonne Physician: JOAQUIN CODY ONE VIEW 12/25/2018HISTORY: Left chest painCOMPARISON: NoneCardiac, hilar, and mediastinal structures are normal. Lungs arewell-aerated and clear. No effusion or pneumothorax. No acute bony or softtissue abnormalities are identified.IMPRESSION:Clear chest.The study was performed on an emergent basis and preliminary report faxedto the Emergency Department by the [facility] Centerhawk service nearthe time of the exam.Electronically Signed By: Arturo Moore M.D., 12/25/2018 7:13 AMLegally authenticated by JOY FRANCO 8830-35-9958:13:55DJCE1204-48-13 02:24:00* Test Item Value Reference Range Interpretation Comme nts %CKMB (test code = %MB) TNP % UNABLE TO CALCULATE RESULTS DUE TO CKMB <0.22 NG/ML. CKMB (test code = CKMB) <0.22 NG/ML 0.22-2.4 CK (test code = CK) 55 U/L 30-135 CKINTERP (test code = CKINTERP) NEGATIVE Negative TROPONIN I - [id number] 02:23:00* Test Item Value Reference Range Interpretation Comme nts TROP-I (test code = TROP-I) <0.012 ng/ml 0.012-0.033 INTERPRETI VE DATA A TROPONIN OF LESS THAN 0.034 NG/ML IS CONSIDERED NEGATIVE A TROPONIN OF 0.034 - 0.119 NG/ML IS CONSIDERED GRAYZONE A TROPONIN =/> 0.120 NG/ML IS CONSIDERED POSITIVE YONBVJ8718-56-14 02:17:00* Test Item Value Reference Range Interpretation Comme nts LIPASE (test code = LIPA) 84 U/L 23-300 LLB0809-48-95 02:17:00* Test Item Value Reference Range Interpretation Comme nts SODIUM (test code = NA) 142 MMOL/L 137-145 K+ (test code = KSERUM) 3.8 MMOL/L 3.5-5.1 PLEASE NOTE NEW REFERENCE RANGE(S) IN EFFECT EFFECTIVE 01/30/2010 - NEW ANALYZER ([employer] [address]) CHLORIDE (test code = CL) 105 MMOL/L 98-107 CO2 (test code = CO2) 27 MMOL/L 22-30 BUN (test code = BUN) 9 MG/DL 7-17 CREA (test code = CREA) 0.5 MG/DL 0.7-1.2 L GLUCOSE (test code = GLUCOSE) 142 MG/DL 70-99 H Fasting glucos e normal <100 MG/DL- [place] [employer] recommendation CALCIUM (test code = [...] of >90 mL/min/1.73m2 is considered normal. D-DIMER, CRMSBFVUJDLG8852-92-23 02:14:00* Test Item Value Reference Range Interpretation [...] HCG LOT # (test code = UHCGLOT) [id number] HCG EXPIRATION DATE (test code = UHCGEXP) 05-27-20 SHXJIPLLMP9373-09-28 02:01:00* Test Item Value Reference Range Interpretation [...] 1.000-1.025 UAMICRO (test code = UAMICRO) NO [id number] 01:50:00* Test Item Value Reference Range Interpretation [...] code = NEUT) 4.2 K/UL 1.2-7.2 PATHOLOGY QJUDCL5326-37-22 08:19:00TISSUE CONSULTATION REPORTBAPTIST LONGVIEW REGIONAL MEDICAL CENTERDEPARTMENT OF PATHOLOGYP.[address], [place] [id number] ROBERT H. SEBASTIAN, M.D.LIZ RIVERA M.D.CHARLES E. BURNS, M.D. ____Patient: DEYSI ALVAREZ 1995 23 FRoom:Hosp#: [id number] Ordering Physician: CAROLYN VALLE Rec.:08/31/2018Date of Proc.: 08/31/2018Lab No.: [id number] FINAL ANATOMIC DIAGNOSIS:STOMACH, BIOPSY:- CHRONIC INACTIVE GASTRITIS WITH SUPERIMPOSED REACTIVE CHANGE.- NEGATIVE FOR HELICOBACTER FORMS BY JENNIFER STAIN.- NEGATIVE FOR INTESTINAL METAPLASIA BY AB/PAS STAIN.- NEGATIVE FOR DYSPLASIA OR MALIGNANCY.MICROSCOPIC EXAMINAT ION:Performed; see diagnosis.GROSS APPEARANCE:The specimen is labeled "random gastric biopsy." Submitted informalin are two yellow-leon mucosal fragments measuring 0.5 x 0.3 x0.2 cm in aggregate, ET one block wraps.PATHOLOGIST: Sheyla Ledesma Electronically Signed: 09/01/20186669IXS6276-80-15 07:46:00* Test Item Value Reference Range Interpretation Comme nts SODIUM (test code = NA) 142 MMOL/L 137-145 K+ (test code = KSERUM) 3.4 MMOL/L 3.5-5.1 L PLEASE NOTE NEW REFERENCE RANGE(S) IN EFFECT EFFECTIVE 01/30/2010 - NEW ANALYZER ([employer]) CHLORIDE (test code = CL) 105 MMOL/L 98-107 CO2 (test code = CO2) 26 MMOL/L 22-30 BUN (test code = BUN) 6 MG/DL 7-17 L CREA (test code = CREA) 0.6 MG/DL 0.7-1.2 L GLUCOSE (test code = GLUCOSE) 87 MG/DL 70-99 Fasting glucos e normal <100 MG/DL- [place] [employer] recommendation CALCIUM (test code = [...] GFR of >90 mL/min/1.73m2 is considered normal. [id number] 07:19:00* Test Item Value Reference Range Interpretation [...] = NEUT) 4.6 K/UL 1.2-7.2 ACUTE HEPATITIS [id number] 03:34:00* Test Item Value Reference Range Interpretation Comme nts HAAB,M (test code = HAAB,M) NEGATIVE NEGATIVE HBCABM (test code = HBCABM) NEGATIVE NEGATIVE A GRAYZONE resul t is presumptive evidence of IgM anti-HBc. Patients with specimens exhibiting regan zone reactive test results should be retested at approximately one-week intervals. HCV (test code = HCV) NEGATIVE NEGATIVE Hepatitis C Anti body test is for screening purposes only. All reactives will be confirmed by additional testing. HEPBSAG (test code = HEPBSAG) NEGATIVE NEGATIVE Hepatitis B Surf samreen Antigen is for screening purpose only. All reactives will be sent to reference lab for confirmation. [id number] 17:52:00* Test Item Value Reference Range Interpretation [...] H Fasting glucos e normal <100 MG/DL- [place] [employer] recommendation CALCIUM (test code = [...] GFR of >90 mL/min/1.73m2 is considered normal. [id number] 17:52:00* Test Item Value Reference Range Interpretation Comme nts LIPASE (test code = LIPA) 65 U/L 23-300 [id number] 17:33:00* Test Item Value Reference Range Interpretation [...] = NEUT) 6.1 K/UL 1.2-7.2 CT ABDOMEN/PELVIS SJVV3729-53-60 07:30:[address] [address]AJQOYHOIJG IMAGING REPORTPatient Name: DEYSI ALVAREZ BDate of Service: 02-94-7260Nex: 23 Sex: F Order #: 600 [facility]1995 [facility] Number: [id number] Record Number: [id number] Hospital Number: [id number] Physician: KIERA DELA CRUZ Physician: FRANK ASH [...] bettercharacterize this lesion.3. Hepatic steatosis.Electronically Signed By: Sheyla Goss M.D., 08/30/2018 7:28 AMLegally authenticated by TORRIE CARRION 2018-08-30 07:28:22AXTWHDBOTH9398-75-69 21:58:00* Test Item Value Reference Range Interpretation [...] HCG LOT # (test code = UHCGLOT) [id number] HCG EXPIRATION DATE (test code = UHCGEXP) 07-20 [id number] 19:28:00* Test Item Value Reference Range Interpretation Comme nts LIPASE (test code = LIPA) 48 U/L 23-300 [id number] 19:28:00* Test Item Value Reference Range Interpretation Comme nts SODIUM (test code = NA) 140 MMOL/L 137-145 K+ (test code = KSERUM) 4.0 MMOL/L 3.5-5.1 PLEASE NOTE NEW REFERENCE RANGE(S) IN EFFECT EFFECTIVE 01/30/2010 - NEW ANALYZER ([employer]) CHLORIDE (test code = CL) 102 MMOL/L 98-107 CO2 (test code = CO2) 27 MMOL/L 22-30 BUN (test code = BUN) 10 MG/DL 7-17 CREA (test code = CREA) 0.6 MG/DL 0.7-1.2 L GLUCOSE (test code = GLUCOSE) 84 MG/DL 70-99 Fasting glucos e normal <100 MG/DL- [place] [employer] recommendation CALCIUM (test code = [...] GFR of >90 mL/min/1.73m2 is considered normal. [id number] 19:21:00* Test Item Value Reference Range Interpretation [...] = NEUT) 8.3 K/UL 1.2-7.2 H PATHOLOGY [id number] 09:33:00TISSUE CONSULTATION REPORTBAPTLEGENT ORTHOPEDIC HOSPITALDEPARTMENT OF PATHOLOGYP.[address], [place] [id number] SHEYLA CORTES M.D.LIZ RIVERA M.D.CHARLES E. BURNS, M.D. ____Patient: DESYI ALVAREZ 1995 23 FRoom:Hosp#: [id number] Ordering Physician: JUAN MERAZ Rec.: 08/26/2018Date of Proc.: 08/25/2018Lab No.: [id number] PRE-OPERATIVE DIAGNOSIS:Chronic cholecystitisFINAL ANATOMIC DIAGNOSIS:GALLBLADDER, CHOLECYSTECTOMY: CHRONIC [...] cassette.PATHOLOGIST: Roberto Genao Electronically Signed: 08/29/2018ABDOMEN 2 [id number] 07:15:[address] [id number] IMAGING REPORTPatient Name: DEYSI ALVAREZ BDate of Service: 28-83-7511Qre: 23 Sex: F Order #: 600 [facility]1995 [facility]-Ray Number: [id number] Record Number: [id number] Hospital Number: [id number] Physician: GABBY THOMASOrdering Physician: Radha THOMAS 2 [...] HCG LOT # (test code = UHCGLOT) [id number] HCG EXPIRATION DATE (test code = UHCGEXP) 01-14 IZVCDESGGB8671-80-66 05:07:00* Test Item Value Reference Range Interpretation [...] (test code = URMUCOUS) MUCH /LPF NONE [id number] 04:11:00* Test Item Value Reference Range Interpretation [...] NEUT) 4.3 K/UL 1.2-7.2 BMP, BASIC METABOLIC [id number] 04:03:00* Test Item Value Reference Range Interpretation Comme nts SODIUM (test code = NA) 141 MMOL/L 137-145 K+ (test code = KSERUM) 4.1 MMOL/L 3.5-5.1 PLEASE NOTE NEW REFERENCE RANGE(S) IN EFFECT EFFECTIVE 01/30/2010 - NEW ANALYZER (GiveoS 5600) CHLORIDE (test code = CL) 111 MMOL/L 98-107 H CO2 (test code = CO2) 22 MMOL/L 22-30 BUN (test code = BUN) 11 MG/DL 7-17 CREA (test code = CREA) 0.5 MG/DL 0.7-1.2 L GLUCOSE (test code = GLUCOSE) 112 MG/DL 70-99 H Fasting glucos e normal <100 MG/DL- [employer] recommendation CALCIUM (test code = CABLOOD) 8.7 MG/DL 8.4-10.2 GFR (test code = GFR) 166 mL/min/1.73m2 A GFR of >90 mL/min/1.73m2 is considered normal. LIVER [id number] 04:03:00* Test Item Value Reference Range Interpretation [...] code = ALT) 428 U/L 13-69 H [id number] 04:03:00* Test Item Value Reference Range Interpretation Comme nts LIPASE (test code = LIPA) 157 U/L 23-300 [id number] 13:45:00* Test Item Value Reference Range Interpretation Comme nts SODIUM (test code = NA) 139 MMOL/L 137-145 K+ (test code = KSERUM) 4.2 MMOL/L 3.5-5.1 PLEASE NOTE NEW REFERENCE RANGE(S) IN EFFECT EFFECTIVE 01/30/2010 - NEW ANALYZER ([employer] 5600) CHLORIDE (test code = CL) 105 MMOL/L 98-107 CO2 (test code = CO2) 26 MMOL/L 22-30 BUN (test code = BUN) 8 MG/DL 7-17 CREA (test code = CREA) 0.5 MG/DL 0.7-1.2 L GLUCOSE (test code = GLUCOSE) 105 MG/DL 70-99 H Fasting glucos e normal <100 MG/DL- [employer] recommendation CALCIUM (test code = [...] GFR of >90 mL/min/1.73m2 is considered normal. [id number] 12:43:00* Test Item Value Reference Range Interpretation [...] 9.2 K/UL 1.2-7.2 H US LIMITED ABD [id number] 07:27:00B[address] [id number] IMAGING REPORTPatient Name: DEYSI ALVAREZ BDate of Service: 28-33-2501Kqj: 23 Sex: F Order #: [id number] [facility]1995 [facility] Number: [id number] Record Number: [id number] Hospital Number: [id number] Physician: Marbella THOMAS Physician: Ladarius THOMAS upper [...] report faxedto the Emergency Department by the [facility] service nearthe time of the exam.Electronically Signed By: Arturo Moore M.D., 08/25/2018 7:25 AMLegally authenticated by JOY FRANCO 2018-08-25 07:25:[id number] 07:14:00* Test Item Value Reference Range Interpretation Comme [facility] BLOOD TYPE (test code = TYPE) A Rh Negative ANTIBODY SCREEN (test code = SCREEN) NEGATIVE NEGATIVE [id number] 03:58:00* Test Item Value Reference Range Interpretation Comme [facility] LIPASE (test code = LIPA) 57 U/L 23-300 LIVER [id number] 03:58:00* Test Item Value Reference Range Interpretation Comme [facility] TOTPROT (test code = TOTPROT) 7.2 G/DL 6.3-8.2 ALBUMIN (test code = ALBSERUM) 4.2 G/DL 3.5-5.0 BILITOT (test code = BILITOT) 0.3 MG/DL 0.2-1.3 BILIDIR (test code = BILIDIR) 0.3 MG/DL 0.0-0.4 AST (test code = AST) 30 U/L 15-46 PHOSALK (test code = PHOSALK) 59 U/L 38-126 ALT (test code = ALT) 35 U/L 13-69 [id number] 03:52:00* Test Item Value Reference Range Interpretation [...] 1.000-1.025 UAMICRO (test code = UAMICRO) NO [id number] 03:48:00* Test Item Value Reference Range Interpretation [...] code = NEUT) 6.1 K/UL 1.2-7.2 ISTAT [id number] 03:45:00* Test Item Value Reference Range Interpretation Comme nts ISTAT HCG (test code = ISHCG) <5.0 IU/L A value of less than or equal to <5 IU/L is considered NEGATIVE. A value between 5 IU/L and 25 IU/L is considered INDETERMINATE. A value of >25 IU/L is considered POSITIVE. ISTAT CHEM [id number] 03:25:00* Test Item Value Reference Range Interpretation [...] code = ISTANGAP) 19 MMOL/L CT ABDOMEN/PELVIS [id number] 07:45:00B[address] - [place], [place] [id number] IMAGING REPORTPatient Name: DEYSI ALVAREZ BDate of Service: 34-90-6326Xpk: 23 Sex: F Order #: [id number] Room: ERSDOB:1995 X-Ray Number: [id number] Record Number: [id number] Hospital Number: [id number] Physician: LASHAWN ALIOrdering Physician: RADHA HOLLINS abdomen [...] 7:43 AMLegally authenticated by CHRISTOPH Rodriguez 2018-08-21 07:43:[id number] 22:43:00* Test Item Value Reference Range Interpretation Comme nts LIPASE (test code = LIPA) 65 U/L 23-300 LIVER [id number] 22:43:00* Test Item Value Reference Range Interpretation [...] ALT) 28 U/L 13-69 BMP, BASIC METABOLIC [id number] 22:43:00* Test Item Value Reference Range Interpretation Comme nts SODIUM (test code = NA) 140 MMOL/L 137-145 K+ (test code = KSERUM) 3.9 MMOL/L 3.5-5.1 PLEASE NOTE NEW REFERENCE RANGE(S) IN EFFECT EFFECTIVE 01/30/2010 - NEW ANALYZER ([employer] 56[employer]) CHLORIDE (test code = CL) 109 MMOL/L 98-107 H CO2 (test code = CO2) 23 MMOL/L 22-30 BUN (test code = BUN) 8 MG/DL 7-17 CREA (test code = CREA) 0.4 MG/DL 0.7-1.2 L GLUCOSE (test code = GLUCOSE) 96 MG/DL 70-99 Fasting glucos e normal <100 MG/DL- [place] [employer] recommendation CALCIUM (test code = CABLOOD) 9.3 MG/DL 8.4-10.2 GFR (test code = GFR) 214 mL/min/1.73m2 A GFR of >90 mL/min/1.73m2 is considered normal. [id number] 22:07:00* Test Item Value Reference Range Interpretation [...] HCG LOT # (test code = UHCGLOT) [id number] HCG EXPIRATION DATE (test code = UHCGEXP) 01-26-20 [id number] 22:03:00* Test Item Value Reference Range Interpretation [...] (test code = NEUT) 5.2 K/UL 1.2-7.2 History and Physical Notes Date/Time Note Provider Source 2023-12-09 13:01:56 Endoscopy H & P Age: [age] year old Sex: female ASA Class: 2 Indication: FRANCISCO JAVIER, EGRD Family history of Colon Cancer/Polyps: yes, mother 30s Blood thinners: no Previous Endoscopy: EGD: remote Colonoscopy:OSH recent, reported nl Current Discharge Medication List CONTINUE these medications which have NOT CHANGED Details lisinopriL 10 mg tablet Take 1 tablet by mouth in the morning. Qty: 90 tablet, Refills: 1 Associated Diagnoses: Essential hypertension, benign ferrous sulfate 325 mg (65 mg iron) EC tablet Take 1 tablet by mouth daily with breakfast. Qty: 30 tablet, Refills: 3 Associated Diagnoses: Other constipation; Other fatigue; Other iron deficiency anemia sennosides-docusate sodium 8.6-50 mg per tablet Take 1 tablet by mouth in the morning. Qty: 30 tablet, Refills: 3 Associated Diagnoses: Other constipation; Other fatigue; Other iron deficiency anemia levothyroxine 137 mcg tablet Take 1 tablet by mouth every morning. Qty: 90 tablet, Refills: 1 Associated Diagnoses: Acquired hypothyroidism DULoxetine 60 mg capsule Take 1 capsule by mouth in the morning. Qty: 90 capsule, Refills: 1 Associated Diagnoses: Adjustment disorder with anxiety Past Medical History: Diagnosis Date Anxiety Autoimmune disorder Depression Endocrine disorder Hormone disorder Hypertension Iron deficiency anemia 05/12/2023 Thyroid disease Urinary incontinence Current Facility-Administered Medications Medication Dose Route Frequency Last Rate Last Admin lactated ringers IV infusion 1,000 mL 1,000 mL IV Infusion ONCE Allergies Allergen Reactions Pcn [Penicillins] Hives Social History Socioeconomic History Marital status: Single Tobacco Use Smoking status: Never Smokeless tobacco: Never Vaping Use Vaping status: Never Used Substance and Sexual Activity Alcohol use: Not Currently Drug use: Never Sexual activity: Yes Partners: Male Mental Status: NAD, alert, answering questions appropriately Chest: no increased WOB or respiratory distress Cardiovascular: regular rate, warm, well perfused, no LE edema Abdomen: bowel sounds present, soft, non tender Impression and Plan: GERD FRANCISCO JAVIER Recent nl colonoscopy per patient. Hx of colon cancer in mother age 30s. Will proceed with EGD Education provided to the patient and family about the procedure. Benefits, risks, alternatives, and likelihood of achieving patient's goals of care discussed. Risks discussed including but not limited to aspiration, infection, bleeding, perforation, missed polyps/lesions, failure to obtain a diagnosis, failure to complete the procedure, cardiovascular complications such as SD, stroke, arrhythmia, and . Informed consent obtained. Izzy Joseph DO Gastroenterology PGY 5 Pager#[phone] Associated attestation - Darian Begum MD - 12/09/2023 1:15 PM CDT I personally examined the patient on 12/09/[address] Joseph's resident/fellow note as written. I actively participated in the decision-making process. Please see the resident/fellow's note for additional details. Darian Begum MD [facility] [employer] Gastroenterology -GASTROENTEROLOGY [facility] Notes Date/Time Note Provider Source 2024-02-01 16:49:10 Patient is scheduled 02/09/24. Sagar Byrnes RN 02/01/2024 4:49 PM Sagar Byrnes RN [facility] 2023-12-28 10:03:03 Please review and advise on dosage change. Maria Del Carmen Royal RN [facility] 2023-12-23 10:15:00 Images from the original note were not included. Venipuncture collection performed by clean technique on the left anticubitus. Total of 1 attempts were made. Slight pressure and a bandage/dressing were applied to the site(s). The patient experienced no complications. The following specimens were processed according to instructions and sent to [facility] laboratories per lab order on 12/23/2023 : LT BLUE SST 1 RED LAV PPT DK GREEN (LiHep) DK GREEN (SodH) REGAN DK BLUE (K2) DK BLUE (S) ACD Blood Culture NIPT/NTD T [facility] 2023-12-22 16:38:38 Called and spoke to patient about lab results. Will redraw labs tomorrow morning to re-address TSH before filling her prescription. T [facility] 2023-12-22 10:17:16 Please review and advise on medication dosage. T Maria Del Carmen Royal RN [facility] 2023-12-21 14:45:00 Images from the original note were not included. Venipuncture collection performed by clean technique on the right anticubitus. Total of 1 attempts were made. Slight pressure and a bandage/dressing were applied to the site(s). The patient experienced no complications. The following specimens were processed according to instructions and sent to [facility] laboratories per lab order on 12/21/2023 : LT BLUE SST 2 RED LAV PPT DK GREEN (LiHep) DK GREEN (SodH) REGAN DK BLUE (K2) DK BLUE (S) ACD Blood Culture NIPT/NTD T [facility] 2023-11-26 14:21:46 Patient contacted for pre op phone call. Patient given procedural prep instructions, NPO status/timing for procedure, medication instructions,denies anticoagulant therapy, diuretics, diabetic or weight loss medications. Patient verbalized understanding of instructions. Discussed with patient they will need a responsible adult, 18 years old or older, to provide transportation on the day of procedure. Patient also informed that they will be contacted the day before their procedure with arrival time. Pre op call complete. Florence Gomes RN [facility] 2023-11-26 14:03:44 Preop call attempted. Patient was unavailable. Voice message left on patients voicemail. Patient instructed to return call and confirm appointment. T [facility] 2023-11-04 13:00:00 Images from the original note were not included. Pt wanted to have some test pulled today and some pulled at a future time. Per providers orders. Venipuncture collection performed by clean technique on the right anticubitus. Total of 1 attempts were made. Slight pressure and a bandage/dressing were applied to the site(s). The patient experienced no complications. The following specimens were processed according to instructions and sent to [facility] laboratories per lab order on 11/04/2023: LT BLUE SST 2 RED LAV 1 PPT DK GREEN (LiHep) DK GREEN (SodH) REGAN DK BLUE (K2) DK BLUE (S) ACD Blood Culture NIPT/NTD [facility] 2023-10-27 11:34:51 I called patient and relayed provider's lab result remarks and msg that CT has been ordered and to go to ED if abd pain worsens before getting CT. Isauro Hernandez RN [facility] 2023-10-27 11:16:41 Addressed in separate message to you. T [facility] 2023-10-27 11:14:49 Inform patient that AST and ALT are improving. GGT which is also a marker of liver inflammation is mildly elevated. Lipase is normal which rules out acute pancreatitis. Hepatitis A testing is negative. If abdominal pain continues, CT abdomen has been ordered to evaluate this. If pain gets worse before CT scan can be done, come to ED. T [facility] 2023-10-27 10:10:30 Dr. Pennington's reply to patient sent to patient via [place]. Isauro Hernandez RN [facility] 2023-10-27 09:15:38 Inform patient that AST and ALT are improving. GGT is mildly elevated and should improve if liver inflammation resolves. OCP's can cause liver inflammation in some patients but for mild liver inflammation like this, I would not ask her to stop it. If abdominal pain continues, she can either wait for CT scan to be done or go to ED. T [facility] 2023-10-26 13:32:17 Deysi Alvarez is a 28 year old female is calling to discuss results of her labs. Jojo Hinsonreau [facility] 2023-10-25 16:43:34 Deysi Alvarez is a 28 year old female is calling stating she was seen today but the pain in her left side has not subsided. She would like a call to also review her labs. Jojo Hinsonreau [facility] 2023-10-25 11:30:00 Images from the original note were not included. Venipuncture collection performed by clean technique on the right anticubitus. Total of 1 attempts were made. Slight pressure and a bandage/dressing were applied to the site(s). The patient experienced no complications. The following specimens were processed according to instructions and sent to [facility] laboratories per lab order on 10/25/2023 : LT BLUE SST 1 RED LAV 1 PPT DK GREEN (LiHep) DK GREEN (SodH) REGAN DK BLUE (K2) DK BLUE (S) ACD Blood Culture NIPT/NTD Patient has been identified by and name and was provided with cup, antiseptic towelette, and clean catch instructions. 1 urine specimen(s) sent. Unpreserved 1 Urine Culture Aptima tube Other urine [facility] 2023-10-20 15:54:[address] pennington 10-25-23 11am Ivette Castro V [facility] 2023-10-20 09:37:35 Deysi Alvarez is a 28 year old female Pt calling requesting to schedule an appt due to liver enzymes being elevated provider does not have anything available coming up and no schedule past November. Please call the pt to discuss an appt. Please advise. Adeola Garcia [facility] 2023-10-16 17:52:58 Patient given discharge instructions on fatigue. No prescriptions. Advised to follow up with pcp. Pt left ER ambulatory, no signs of distress. [facility] 2023-10-16 16:01:28 Missed IV attempt to left AC, blood collected. Pt given sandwich and chocolate pudding. [facility] 2023-10-16 15:15:42 Patient states: "I feel super shaky, like I'm going to pass out. I feel like I'm not even awake. It feels very foggy. It's been going on for 2 days" Pmhx: Hypothyroidism, iron deficiency anemia, BGL in triage 77. Reports doing low carb diet over past 2 weeks. Pt given juice. Tigist Loyola RN [facility] 2023-10-14 16:37:43 Call placed, attempt #3 with no answer. Will await call back, will close encounter. Lucero Blanchard RN [facility] 2023-10-13 16:39:13 Call placed, attempt #2 with no answer. [facility] 2023-10-13 13:21:53 Images from the original note were not included. Notes: lisinopriL 10 mg tablet Sig: Take 1 tablet by mouth in the morning. Disp: Not specified Refills: Start: 10/13/2023 Class: eRX Last ordered: 6 days ago (10/07/2023) by [employer] Doctor Unassigned Cardiovascular: [employer] Btpdzj2010/13/2023 01:19 PM Protocol Details Valid encounter within last 12 months K in normal range and within 360 days Cr in normal range and within 360 days To be filled at: [id number] - [place], [place] - [address] [employer] Last Refilled: I don't see this as being prescribed by our office. Recent Visits Date Type Provider Dept 10/01/23 Office Visit Dago Ibarra NP [facility] 09/06/23 Office Visit Liberty Watson MD [facility] 06/16/23 Office Visit Liberty Watson MD [facility] 06/02/23 Office Visit Liberty Watson MD [facility] 05/12/23 Office Visit Liberty Watson MD [facility] Showing recent visits within past 540 days with a meds authorizing provider and meeting all other requirements Future Appointments Date Type Provider Dept 12/23/23 Appointment Liberty Watson MD [facility] Showing future appointments within next 150 days with a meds authorizing provider and meeting all other requirements Mary Maldonado MA [facility] 2023-10-13 13:19:24 Copied from [facility] #[id number]. Topic: Clinical - Referral >> Oct 13, 2023 1:16 PM Patient Project Administrator wrote: Deysi Alvarez is a 28 year old female pt would like to know where she can go for her Hematology. Pt states [facility] is not accepting pt at this time and the other location the pt was referred to does not accept her insurance. Pt would like to know does she have to go or can it be managed in the clinic. Pt is also asking for a refill of lisinopriL 10 mg tablet Iona Ritchie 10/13/23 1:18 PM Iona Ritchie [facility] 2023-10-12 11:00:47 Call placed to number listed, no answer. [facility] 2023-10-12 10:27:14 Deysi Alvarez is a 28 year old female Poonam with [facility] called stating they still need demographics for the patient. Please contact [phone] Eduardo Davison [facility] 2023-10-07 16:25:46 B12 is a water soluble vitamin . The body is can easily clear it without quick concern for accumulations. Will monitor and recheck it in few months [facility] 2023-10-07 15:33:36 Pt with concerns of elevated B-12, states was reading on [employer] could be caused by liver problems. Informed pt I have forwarded her [employer] message with this concern and awaiting response as is seeing pts. Informed pt once she responds we will let her know. Pt states has not taken any vitamins to elevate levels. Will forward to provider for review. Lucero Blanchard RN [facility] 2023-10-07 14:07:21 Copied from [facility] #[id number]. Topic: Clinical - Results >> Oct 07, 2023 2:06 PM Patient Project Administrator wrote: Pt called requesting to speak with Dr. Plaza in regards to her most recent lab work. She has questions. Please advise. Call back number:[phone] Jessica Beaulieu [facility] 2023-10-07 10:00:00 Images from the original note were not included. Venipuncture collection performed by clean technique on the left anticubitus. Total of 1 attempts were made. Slight pressure and a bandage/dressing were applied to the site(s). The patient experienced no complications. The following specimens were processed according to instructions and sent to [facility] laboratories per lab order on 10/07/2023 : LT BLUE SST 1 RED LAV PPT DK GREEN (LiHep) DK GREEN (SodH) REGAN DK BLUE (K2) DK BLUE (S) ACD Blood Culture NIPT/NTD T [facility] 2023-10-05 15:02:27 Referral faxed. T [facility] 2023-10-05 13:51:25 Deysi Alvarez is a 28 year old female that is requesting a referral for an external hematology clinic due to the [facility] hematology being backed up until January. [facility] at [address] [address] fax for anemia iron deficiency Kelli Lopez [facility] 2023-10-05 10:53:52 Referral for Hematology has been placed. [facility] 2023-10-04 15:21:26 Called patient and discussed labs and referrals. [facility] 2023-10-04 08:18:24 Forwarding to provider for review of labs and recommendations. Lucero Blanchard RN [facility] 2023-10-01 15:15:00 Images from the original note were not included. Venipuncture collection performed by clean technique on the right anticubitus. Total of 1 attempts were made. Slight pressure and a bandage/dressing were applied to the site(s). The patient experienced no complications. The following specimens were processed according to instructions and sent to [facility] laboratories per lab order on 10/01/2023: LT BLUE SST 3 RED LAV 1 PPT DK GREEN (LiHep) DK GREEN (SodH) REGAN DK BLUE (K2) DK BLUE (S) ACD Blood Culture NIPT/NTD [facility] 2023-09-21 15:45:29 Please let patient know that I can increase her Levothyroxine dose from 125 mcg to 137 mcg. I will send her prescription to her local pharmacy. For any further concerns about anemia, she should consult with her PCP. Charlene Dennis NP [facility] 2023-09-21 15:40:43 Patient recently seen for follow up on 09/07/23. Will route to provider to review and advise. Nubia Proctor LVN [facility] 2023-09-14 14:57:13 Images from the original note were not included. Routed to provider for review. Unable to refill per ambulatory refill guidelines. Notes: DULoxetine 60 mg capsule Possible duplicate: Hover to review recent actions on this medication Sig: Take 1 capsule by mouth in the morning. Disp: Not specified Refills: Start: 09/14/2023 Class: eRX Non-formulary Last ordered: 4 months ago (05/12/2023) by [employer] Doctor Unassigned Neuropathic Pain Ufmdjx9109/14/2023 12:41 PM Protocol Details Manual Review: Verify no changes in dose in the last 3 months Valid encounter within last 12 months To be filled at: [facility] #[id number] - [place], [place] - [address] [employer] Last Refilled: 07/2023 Recent Visits Date Type Provider Dept 09/06/23 Office Visit Liberty Watson MD [facility] 06/16/23 Office Visit Liberty Watson MD [facility] 06/02/23 Office Visit Liberty Watson MD [facility] 05/12/23 Office Visit Liberty Watson MD [facility] Showing recent visits within past 540 days with a meds authorizing provider and meeting all other requirements Future Appointments Date Type Provider Dept 12/23/23 Appointment Liberty Watson MD [facility] Showing future appointments within next 150 days with a meds authorizing provider and meeting all other requirements Mary Maldonado MA [facility] 2023-09-14 12:41:15 2nd refill request from pharmacy. Genesis Vergara [facility] 2023-09-09 10:50:40 Images from the original note were not included. Routed to provider for review. Unable to refill per ambulatory refill guidelines. Notes: DULoxetine 60 mg capsule Sig: Take 1 capsule by mouth in the morning. Disp: Not specified Refills: Start: 09/09/2023 Class: eRX Non-formulary Last ordered: 4 months ago (05/12/2023) by [employer] Doctor Unassigned Neuropathic Pain Exwuni3309/09/2023 08:11 AM Protocol Details Manual Review: Verify no changes in dose in the last 3 months Valid encounter within last 12 months To be filled at: [facility] #[id number] - [place], [place] - [address] [employer] Last Refilled: 07/2023 Recent Visits Date Type Provider Dept 09/06/23 Office Visit Liberty Watson MD [facility] 06/16/23 Office Visit Liberty Watson MD [facility] 06/02/23 Office Visit Liberty Watson MD [facility] 05/12/23 Office Visit Liberty Watson MD [facility] Showing recent visits within past 540 days with a meds authorizing provider and meeting all other requirements Future Appointments Date Type Provider Dept 12/23/23 Appointment Liberty Watson MD [facility] Showing future appointments within next 150 days with a meds authorizing provider and meeting all other requirements Mary Maldonado MA [facility] 2023-09-09 08:10:19 Images from the original note were not included. Suhas Mccarthy [facility] 2023-09-08 18:53:07 Called patient and spoke to her about options for weight loss. I also introduced her to Naltrexone and Buprorion vs Phentermine and Topiramate. She still would rather not try Zepbound for now since her insurance will be going out soon. Will increase her current prescription of Buproprion from 75 to 100 mg for the first week. For the second week take one tablet in the AM and PM. For the 3rd week and remainder of the time, take 2 tablets in the AM and 1 tablet in the PM. Naltrexone 50 mg:?Please start Naltrexone (25 mg) 0.5 mg tablet every morning for the first week. For the second week, please take 0.5mg in the AM and PM as well. For the third week and the remainder of the time, take one tablet daily. [facility] 2023-09-08 15:58:06 Responded to this is [place] message. [facility] 2023-09-08 15:45:51 Deysi Alvarez is a 28 year old female Pt is calling to speak with provider regarding trying phentermine medication, Pt states, she would like to try since her BP has been under control, Please advise Elvia Davison [facility] 2023-09-08 15:38:33 Called patient and left a message about her concern about pancreatitis and how Zepbound is much safer than Phentermine. I will also send her a message through My[employer]. [facility] 2023-09-08 15:34:15 I responded to this in a MyTo[employer] message. [facility] 2023-09-08 14:59:33 Patient called with concerns about taking Zepbound due to grandmother of pancreatic cancer. I advised her to read about medication on shirt ironer and FDA website and note that precautions [...] and asking if phentermine can be prescribed instead Routing for provider to advise. Nubia Proctor LVN [facility] 2023-09-08 14:30:42 Deysi Alvarez is a 28 year old female patient calling back has decided not to take Zepbound and is requesting RX for Phentermine instead. Please call [phone] Tosha Foley [facility] 2023-09-08 11:24:48 Provided information for patient through message on MyToons. Nubia Proctor LVN [facility] 2023-09-08 10:06:13 This was already sent to [facility] outpatient pharmacy by Dr Plaza. Closing encounter Nubia Proctro LVN [facility] 2023-09-08 09:11:22 Deysi Alvarez is a 28 year old female patient calling to make sure that Zepbound 7.5 mg/0.5 mg is safe for her to take, maternal grandmother with Pancreatic Cancer Please call [phone] Tosha Foley [facility] 2023-09-08 08:54:24 Attempted to contact patient. No answer, VM left. Front App message sent. Sagar Byrnes RN 09/08/2023 8:54 AM Sagar Byrnes RN [facility] 2023-09-07 17:54:54 Addended by: LIBERTY ANSARI on: 09/07/2023 05:54 PM Modules accepted: Orders [facility] 2023-09-07 17:54:32 1. Class 1 obesity due to excess calories with serious comorbidity and body mass index (BMI) of 33.0 to 33.9 in adult - tirzepatide, weight loss, (ZEPBOUND) 2.5 mg/0.5 mL subcutaneous injection; inject 2.5 mg under the skin weekly. Weight loss [Zepbound]. Start 2.5mg qWeek x 4 weeks, then increase to 5mg qWeek x 4 weeks, then increase to 7.5mg qWeek. Dispense: 2 mL; Refill: 0 - tirzepatide, weight loss, (ZEPBOUND) 5 mg/0.5 mL subcutaneous injection; inject 5 mg under the skin weekly. Weight loss [Zepbound]. Start 2.5mg qWeek x 4 weeks, then increase to 5mg qWeek x 4 weeks, then increase to 7.5mg qWeek. Dispense: 2 mL; Refill: 0 - tirzepatide, weight loss, (ZEPBOUND) 7.5 mg/0.5 mL subcutaneous injection; inject 7.5 mg under the skin weekly. Weight loss [Zepbound]. Start 2.5mg qWeek x 4 weeks, then increase to 5mg qWeek x 4 weeks, then increase to 7.5mg qWeek. Dispense: 4 mL; Refill: 1 [facility] 2023-09-07 16:19:08 Patient is wanting to have IUD is currently on control pills want to know if Dr Wall thinks this is good option for her. Yanci Goss [facility] 2023-09-07 15:56:54 Deysi Alvarez is a 28 year old female Patient requesting tirzepatide 5 mg/0.5 mL subcutaneous injection and tirzepatide 2.5 mg/0.5 mL subcutaneous injection be sent to [facility] - [address] [facility], [place] [address] [facility] [place] [address] Nicole Armstrong [facility] 2023-09-07 10:37:51 Dolores, [employer] was not covered due to using for weight loss and not type 2 diabetes. I did speak with Ms. Alvarez and she would like to try Zepbound. She is aware it is not covered, but would like to use the copay card. If a prescription for Zepbound could please be sent to [facility]. Please let me know if there are any questions or concerns. Thank you Maria Del Carmen Byrnes [facility] 2023-09-06 16:15:00 Images from the original note were not included. Venipuncture collection performed by clean technique on the right anticubitus. Total of 1 attempts were made. Slight pressure and a bandage/dressing were applied to the site(s). The patient experienced no complications. The following specimens were processed according to instructions and sent to [facility] laboratories per lab order on 09/06/2023 : LT BLUE SST 1 RED LAV PPT DK GREEN (LiHep) DK GREEN (SodH) REGAN DK BLUE (K2) DK BLUE (S) ACD Blood Culture NIPT/NTD [facility] 2023-09-06 16:02:08 Pt at lab to get labs drawn. No current lab orders placed for upcoming appt tomorrow. Per EMILY : Plan - START LT4 125 mcg early in the AM since she reports the 112 mcg is not helping her. - levothyroxine 125 mcg tablet; Take 1 tablet by mouth every morning. Dispense: 90 tablet; Refill: 0 - THYROID STIMULATING HORMONE; Future - T4 FREE; Future TSH and T4 Free orders placed per EMILY plan. [facility] 2023-09-06 15:35:10 Copied from CRM #[id number]. Topic: Clinical - Medical Advice >> Sep 06, 2023 3:34 PM Patient Project Administrator wrote: Deysi Alvarez is a 28 year old female Pt seen today and busPIRone 7.5 mg tablet was not called in. Please send to Pharmacy. [facility] 2023-08-23 15:00:28 EMILY 05/14/23 NOV 09/07/23 Per [facility] note: START LT4 125 mcg early in the AM since she reports the 112 mcg is not helping her. COMMUNICATIONS ANALYST Nubia Proctor LVN [facility] 2023-02-04 21:53:08 Formatting of this n ote might be different from the original. Notify the COCP has been prescribed for her Mirian Wall MD T [facility] 2023-02-04 10:44:26 Formatting of this n ote might be different from the original. Duplicate message. FLORENCE SALINAS RN 02/04/2023 10:44 AM T [facility] 2022-07-04 12:47:00 [facility] EMERGENCY PROVIDER REPORT REPORT#:[id number] REPORT STATUS: Signed DATE:07/04/22 TIME: 1247 PATIENT: DEYSI ALVAREZ UNIT #: [id number] ROOM/BED: AGE: 27 SEX: F PCP PHYS: Ibrahima Peñaloza III, MD SERVICE AUTHOR: Rajesh Leavitt MD * ALL edits or amendments must be made on the electronic/computer document * HPI-General Illness General Initial Greet Date/Time 07/04/22 1204 Presentation Chief Complaint Vaginal bleeding Free Text HPI Notes Free Text HPI Notes 27 years old patient no past medical history G2, P0 13 weeks presents complaining of 1 day of brownish discharge and cramping, no leakage of fluid urinary symptoms or any other complaints. Review of Systems ROS Statements All systems rev neg except as marked. Free Text ROS Notes Free Text ROS Notes CONSTITUTIONAL: Normal; negative for fever, weight change, fatigue, or aching. HEENT: Eyes normal; negative for, irritation, or visual field defects. Ears normal; Negative for pain . Nose normal; Negative for runny nose, sinus problems , or nosebleeds. Mouth normal; Negative for dental problems,. Throat normal; Negative for hoarseness, difficulty swallowing, or sore throat. CARDIOVASCULAR: Normal; Negative for chest pain or, high blood pressure, orthopnea, PULMONARY: Normal; Negative for cough, sputum, shortness of breath or wheezing, SKIN: Normal; Negative for rashes. MUSCULOSKELETAL: Normal; Negative for back pain, joint pain. NEUROLOGIC: Normal; Negative for blackouts, headaches, seizures or dizziness. PSYCHIATRIC: Normal; Negative for anxiety, depression, or phobias. ENDOCRINE: Normal; Negative for diabetes, thyroid.HEMATOLOGIC/LYMPHATIC : Normal; Negative for anemia, swollen glands, or blood disorders. IMMUNOLOGIC: Negative; Negative for steroids, chemotherapy, or cancer. VASCULAR: Normal; Negative for varicose veins, blood clots, or leg ulcers. Past Medical History - Adult Stated Complaint 13 WEEKS AND BLEEDING Allergies Coded Allergies: Penicillins (Severe, RASH 07/04/22) Home Medications Reported Medications PNV WITH FE FUMARATE/FA () 1 TAB PO DAILY Physical Exam Vital Signs Vital Signs First Documented: Result Date Time Pulse Ox 100 07/04 1118 B/P 145/94 07/04 1118 B/P Mean 111 07/04 1117 O2 Delivery Room air 07/04 1117 Temp 36.8 07/04 1117 Pulse 92 07/04 111 Resp 18 07/04 1117 Last Documented: Result Date Time Pulse Ox 100 07/04 1118 B/P 145/94 07/04 1118 B/P Mean 111 07/04 1117 O2 Delivery Room air 07/04 1117 Temp 36.8 07/04 1117 Pulse 92 07/04 1117 Resp 18 07/04 111 Review of Vital Signs Reviewed, Vital signs normal Basic Physical Exam Basic PE GEN: Well [...] % (Auto) (14.5 - 29.7 %) 26.6 [place] % (Auto) (3.6 - 10.2 %) 7.0 Eos % (Auto) (0.0 - 3.0 %) 1.0 Baso % (Auto) (0.1 - 0.9 %) 0.4 Neut # (Auto) (K/mm3) 4.7 Lymph # (Auto) (K/mm3) 1.9 [place] # (Auto) (K/mm3) 0.5 Eos # (Auto) (K/mm3) 0.07 Baso # (Auto) (K/mm3) 0.0 Miscellaneous Maternal Serum HCG 54665 Urines Urine Color (YELLOW) YELLOW Urine Appearance (CLEAR) CLOUDY H Urine pH (5 - 9) 8.0 Ur Specific [place] (1.001 - 1.035) 1.020 Urine Protein (NEGATIVE) [...] ULTRASOUND - US PREG UT TRANSVAGINAL 07/04 135 Report Impression - Status: SIGNED Entered: 07/04/2022 [...] aspect of the gestational sac. Impression By: [email or web address] - Bruna Aguilar MD ULTRASOUND - DUP AB/PEL/SC/LTD 07/04 135 Report Impression - Status: SIGNED Entered: 07/04/2022 [...] Primary Impression: Subchorionic bleed Time of Impression 162 Disposition Decision Discharge )( Discharged to Home Yes )( Time 1625 )( Date 07/04/22 Discharge/Care Plan Patient Instructions Bleeding During Early at 0639 RPT #:[id number] END OF REPORT [facility] 2018-09-28 15:17:04 [address] [place] [address] Patient Name: DEYSI ALVAREZ Patient#: [id number] Admission Date: 08/30/2018 Discharge Date: 08/31/2018 Age/Gender: 23/F Date of : 1995 S//BED: [facility] Admitting Phys: DANDY MERAZ DISCHARGE SUMMARY DATE OF ADMISSION: 08/30/2018 DATE OF DISCHARGE: 08/31/2018 ADMITTING DIAGNOSES Epigastric left upper quadrant pain with abnormal liver enzymes, status post laparoscopic cholecystectomy. DISCHARGE DIAGNOSES Gastritis, fatty liver. HOSPITAL COURSE The patient had a laparoscopic cholecystectomy 5 days prior to this admission, came to the emergency room complaining of indigestion type symptoms, epigastric pain, nausea, vomiting, reflux. She has been dealing with this for about 6 months before her laparoscopic cholecystectomy and was treating the reflux with [id number] medication. Her liver function tests were elevated, but most likely due to fatty liver. She did not have stones initially to begin with, so I doubt that she had any retained common bile duct stone. She was admitted. A consult for GI was placed. GI performed an EGD showing mild grade 1 reflux esophagitis, gastritis, small hiatal hernia, normal duodenum. Her white count was normal. On admission, hemoglobin was stable. Her liver function tests were slightly elevated, AST 147, ALT 355, alkaline phosphatase 135, but still lower than when she had the elevation before surgery. Her total bilirubin was normal. This was all consistent with fatty liver, and not a retained stone, as she really did not have stones to begin with, I believe. Lipase was normal. Hepatitis studies were negative. Upon discharge, her LFTs were trending down already after the EGD. She was discharged feeling better and tolerating a diet. To follow up with me in 2 weeks. To not do any heavy lifting until seen by me. Nacho Meraz MD TT: 09/28/2018 15:17:04 IT/MODL /[id number] Electronically Authenticated by: Nacho Stephens MD on 10/03/2018 06:55 AM CDT Legally authenticated by KT AHMADI 2018-10-03 06:55:57 WIN MERAZ [facility] 2018-08-31 11:47:[address] [address] Patient Name: DEYSI ALVAREZ Patient#: [id number] Admission Date: 08/30/2018 Date of : 1995 Age/Gender: 23/F [facility]SS[facility] Admitting Phys: Nacho Meraz MD OPERATIVE NOTE DATE OF SURGERY: 08/31/2018 SURGEON: Johan Valle DO PROCEDURE Esophagogastroduodenoscopy with biopsy. INDICATION Abdominal pain, dyspepsia. See consultation this date. ANESTHESIA She is ASA 3. Monitored anesthesia care provided. DESCRIPTION OF PROCEDURE After informed consent was obtained, the patient was positioned for the procedure. Video gastroscope was inserted. Examination of the esophagus demonstrates minimal changes of reflux esophagitis at the GE junction. Retroflexed view in the stomach demonstrates a small hiatal hernia. Stomach distends normally. Mild antral gastritis. Biopsies obtained. Pylorus: Patent. Duodenal bulb, postbulbar duodenum: Normal, bile stained. Scope was withdrawn. The patient tolerated it well and transferred to recovery in stable and satisfactory condition. IMPRESSION 1. Mild grade 1 reflux esophagitis. 2. Mild gastritis; biopsies obtained. 3. Small hiatal hernia. 4. Normal duodenum. RECOMMENDATIONS At this time observe. Continue with proton pump inhibitor therapy. LFTs are trending down and their elevations are multifactorial as outlined in my consultation. The viral hepatitis panel and MRCP are pending. We will await those results with further recommendations to follow. Reviewed with patient and mother postprocedure. Understanding is voiced. Johan Valle DO TT: 08/31/2018 11:47:50 NOOKSACK/JUAN MANUELL /[id number] cc: Nacho Meraz MD Mason Lyon MD Electronically Authenticated by: Johan Valle D.O. on 08/31/2018 01:28 PM TELECOMMUNICATIONS ANALYST Legally authenticated by LEONARD PRADO 2018-08-31 01:28:58 JOHAN VALLE [facility] 2018-08-31 03:51:[address] [address] Patient Name: DEYSI ALVAREZ Patient#: [id number] Admission Date: 08/30/2018 Date of : 1995 Age/Gender: 23/F HSSV[facility]RM[facility]: [facility] Admitting Phys: Nacho Meraz MD CONSULTATION NOTE DATE OF CONSULTATION: 08/30/2018 ATTENDING PHYSICIAN: Nacho Meraz MD REFERRING PHYSICIAN: Mason Lyon MD REQUESTED BY Nacho Meraz MD. REASON FOR CONSULTATION Abdominal pain, abnormal liver enzymes. Five days post laparoscopic cholecystectomy. HISTORY OF PRESENT ILLNESS The patient is a 23-year-old obese white woman with a BMI of greater than 45 who has had multiple ER visits with indigestion-type symptoms and pain in the right upper quadrant. Her reflux symptoms have been ongoing for over 6 months, and she has been treating them symptomatically with [id number] medications. She had an ultrasound recently, on August 25, that demonstrated cholecystitis, underwent laparoscopic cholecystectomy. Liver enzymes have been somewhat elevated, most likely due to fatty liver and/or somewhat reactive changes after surgery, but patient continues to be symptomatic. Upon further discussion, it appears that she had 2 separate symptoms or pains; one in the right upper abdomen and the other one that is more consistent with reflux disease. The right upper [...] Stable. HEENT: Sclerae are nonicteric. Oral mucosa without ulceration or lesion. NECK: Supple. Neck veins flat. LUNGS: Relatively clear. Legally authenticated by LEONARD PRADO 2018-08-31 01:28:30 CARDIAC: Heart sounds regular. ABDOMEN: Soft. Minimal discomfort, most likely postoperative in nature. EXTREMITIES: Without edema. NEUROLOGIC: Nonfocal. Gait not tested. LABORATORY STUDIES August 26 AST 145, ALT 59. Preop on the they were normal. On the , ALT 428. On the , ALT 599, AST 547. Today, they are trending down. AST 147, ALT 355. Bilirubin is normal. Alk phos with minimal elevation. IMPRESSION 1. Abdominal pain, somewhat improved, but continues to be symptomatic more from what appeared to be reflux-type symptoms. 2. Abnormal liver enzymes, again multifactorial including fatty liver as demonstrated by imaging studies previously and most likely postoperative change that I commonly see the first few days after cholecystectomy. PLAN At this time, we will observe. She is scheduled for an MRCP which I suspect will be normal. If that is negative, we will proceed with an upper endoscopy, with further recommendations to follow. Reviewed with the patient and Mother regarding the above. They voiced understanding. They are agreeable to proceed, with further recommendations to follow. Johan Valle DO TT: 08/31/2018 03:51:38 NOOKSACK/MODL /[id number] Electronically Authenticated by: Johan Valle D.O. on 08/31/2018 01:28 PM TELECOMMUNICATIONS ANALYST Legally authenticated by LEONARD PRADO 2018-08-31 01:28:30 JOHAN VALLE [facility] 2018-08-26 13:02:51 [place] [address] Patient Name: DEYSI ALVAREZ Patient#: [id number] Admission Date: 08/25/2018 Date of : 1995 Age/Gender: 23/F HSSV/RM/BED: [facility]/A Admitting Phys: Esequiel Galvan MD OPERATIVE NOTE DATE OF SURGERY: 08/25/2018 SURGEON: Nacho Meraz MD SPEECH LANGUAGE PATHOLOGIST ASSISTANT: None. PREOPERATIVE DIAGNOSIS Acute cholecystitis. POSTOPERATIVE DIAGNOSIS Acute cholecystitis. PROCEDURE Laparoscopic cholecystectomy. ANESTHESIA General endotracheal anesthesia. ESTIMATED BLOOD LOSS Minimal. COMPLICATIONS None. SPECIMEN Gallbladder. DISPOSITION PACU. PROCEDURE NOTE After informed consent was obtained, patient was taken to the operating room, placed supine on the operating table. Bilateral lower extremity SCDs were placed and functioning prior to anesthesia induction. Once anesthesia was induced, abdomen was prepped and draped in standard surgical fashion. Time-out was completed. Preoperative antibiotics were given. I obtained pneumoperitoneum through a right upper quadrant 5 mm Optiview trocar. Pneumoperitoneum was obtained. I then placed a 12 trocar in the infraumbilical area, another 12 trocar in the epigastric area, and another 5 trocar right upper quadrant lateral to the first one. She was placed in reverse Trendelenburg, right side up. The fundus of the gallbladder was grasped and retracted cephalad over the liver. The gallbladder was acutely inflamed with significant edema but no infection, no gangrene. Infundibulum was grasped and retracted laterally, inferiorly, exposing triangle of Calot. Blunt dissection with Kittner and right angle was performed, identifying the critical view. Cystic artery and duct were clipped and transected without any complication. Gallbladder was removed from the gallbladder fossa, obtaining hemostasis along the way, placed in an endobag and retrieved through infraumbilical port site. Right upper quadrant was irrigated. Irrigation fluid was evacuated. I removed the pneumoperitoneum, Legally authenticated by KT AHMADI 2018-09-28 02:32:05 removed the ports, and closed the infraumbilical port site with 0 Vicryl UR6 [id number] stitch. Skin was closed with 4-0 Monocryl, Dermabond. Lap count and instrument count were correct. Transferred to recovery, extubated, under stable condition. Nacho Meraz MD TT: 08/26/2018 13:02:51 IT/MODL /[id number] Electronically Authenticated by: Nacho Stephens MD on 09/28/2018 02:32 PM CDT Legally authenticated by KT AHMADI 2018-09-28 02:32:05 NACHO MERAZ-[facility] 2018-08-25 10:48:[address] [address] Patient Name: DEYSI ALVAREZ Patient#: [id number] Admission Date: 08/25/2018 Date of : 1995 Age/Gender: 23/F SV//BED: [facility]/A Admitting Phys: Esequiel Galvan MD HISTORY AND PHYSICAL HISTORY OF PRESENT ILLNESS The patient is a 23-year-old female admitted via the emergency room. She presents with a 2-week history of abdominal pain. She rates the pain as episodic. It is severe at times. She rates the pain as 8/10. It is in both the epigastric, as well as the right upper and left upper quadrant regions. Precipitating factors include alcohol and fatty foods. She presented to the emergency room 4 nights ago with the above symptoms. She had a CT scan of the abdomen which showed a fatty liver. She was given symptomatic treatment and told to return to her prior primary care and see a GI physician, as well. She was given dicyclomine and treated for possible urinary tract infection by her primary care physician. Last night, the pain intensity got worse, and she then presented again to the emergency room. [...] Occasional alcohol use. Does not smoke. Lives with her fiancee. No previous pregnancies. REVIEW OF SYSTEMS GENERAL: No fever, chills, or rigors. No weight loss. CARDIOVASCULAR: Denies chest pain, orthopnea, PND, ankle edema, or palpitations. RESPIRATORY: Denies dyspnea, wheeze, hemoptysis, or coughing. GI: As per HPI. She has had nausea without any vomiting. No diarrhea or hematochezia. No hematemesis. URINARY TRACT: No dysuria, frequency, hematuria, or nocturia. SKIN: No rashes or itching. SKELETOMOTOR: No joint pains, deformities, or swelling. CENTRAL NERVOUS SYSTEM: Denies headache, syncope, seizures, loss of consciousness, or focal neurological deficit. PSYCHIATRIC: Has chronic anxiety disorder for which she is taking Lexapro. Denies depression. ENDOCRINE: No thirst, polyuria, or polydipsia. No heat or cold intolerance. Legally authenticated by COREY IRAHETA 2018-08-26 08:52:29 EYES: No visual changes or blurring. No redness of conjunctivitis. ENT: Denies nasal congestion. No vertigo or tinnitus. No soreness of the throat or hoarseness of the voice. EXAMINATION GENERAL: A young female, obese, lying in bed. At this time, she was not in distress. She had received morphine. VITAL SIGNS: Temperature 98.1, pulse 97, respiratory rate 16, blood pressure 120/80, O2 sats 100% on room air. SKIN: No anemia, cyanosis, jaundice, clubbing, or dehydration. HEENT: Normocephalic. Pupils were equal. Extraocular movements were full. No lid lag or lid retraction. NECK: Supple. Thyroid not enlarged. HEART: Normal first and second heart sounds. No added sounds, murmurs, or rubs. CHEST: Air entry was equal. Breath sounds vesicular throughout. ABDOMEN: Tender in the epigastrium, as well as in the right upper quadrant on palpation. No masses were felt. There was no guarding. Bowel sounds were normoactive. EXTREMITIES: No pedal edema. Calves were soft and supple. Pulses were palpable. CENTRAL NERVOUS SYSTEM: Cranial nerves 2-12 were intact bilaterally. Motor power in upper and lower extremities was equal and normal bilaterally. INVESTIGATIONS BMP normal. Total protein 7.3, albumin 4.1, bilirubin 0.2, AST 22, alk phos 60, ALT 28, lipase 65. White blood cell count 11.8, hemoglobin 13.8, platelets 277. test was negative. Urinalysis was clear on this occasion. A CT scan of the abdomen done last week, reviewed. It shows fatty liver. Ultrasound of abdomen done this morning; report is pending. ASSESSMENT A 23-year-old female with epigastric and right upper quadrant pain, likely: 1. Acute cholecystitis. 2. Morbid obesity. 3. Fatty liver. 4. Be hypothyroidism. 5. Recent urinary tract infection. 6. Anxiety disorder. PLAN 1. Keep n.p.o. 2. IV fluids. 3. IV ceftriaxone and Flagyl. 4. General Surgery consult. 5. IV Pepcid. 6. Further recommendations to follow. Esequiel Galvan MD TT: 08/25/2018 10:48:53 JOSE/ROXANNE /[id number] Electronically Authenticated by: Esequiel Galvan M.D. on 08/26/2018 08:52 AM TELECOMMUNICATIONS ANALYST Legally authenticated by COREY IRAHETA 2018-08-26 08:52:29 ESEQUIEL GALVAN [facility] 2018-08-25 10:10:14 [place] [address] Patient Name: DEYSI ALVAREZ Patient#: [id number] Admission Date: 08/25/2018 Date of : 1995 [...] upper quadrant pain, postprandial in origin, with nausea, vomiting for about 2 weeks. She has come to the emergency room and various emergency rooms before and was told that everything was okay, to go home. She now comes in with an ultrasound significant for no stones, but acute cholecystitis with pericholecystic fluid, thickening of the gallbladder wall, and white count slightly elevated at 11.8. PAST MEDICAL HISTORY As above. PAST SURGICAL HISTORY None. ALLERGIES PENICILLIN. SOCIAL HISTORY Negative x3. FAMILY HISTORY Noncontributory. MEDICATIONS None. She is being monitored for her hypertension, but no medications have been ordered. PHYSICAL EXAMINATION VITAL SIGNS: Temperature 98.1, heart rate 97, blood pressure 118/78, satting 100% room air. GENERAL: Awake, alert, following commands. No acute distress. CARDIAC: Regular rhythm and rate. Not tachycardic. LUNGS: Clear to auscultation bilateral. ABDOMEN: Obese, but soft, nondistended. Tender in the right upper quadrant. She has positive Meredith sign. No organomegalies, masses, or hernias palpated. LABORATORY DATA White count 11.8, hemoglobin 13.8, hematocrit 42.4, platelets of 277. Electrolytes normal. LFTs normal. test negative. ASSESSMENT AND PLAN A 23-year-old morbidly obese woman with acute cholecystitis to undergo laparoscopic, possible open cholecystectomy. She understands benefits, Legally authenticated by KT AHMADI 2018-09-28 02:32:13 alternatives, and risks of the procedure, which include but not limited to bleeding, infection, perforation, ileus, obstruction, hernia, heart attack, stroke, pulmonary embolism, deep venous thrombosis, , and agrees with the plan. Nacho Meraz MD TT: 08/25/2018 10:10:14 IT/MODL /[id number] Electronically Authenticated by: Nacho Stephens MD on 09/28/2018 02:32 PM CDT Legally authenticated by KT AHMADI 2018-09-28 02:32:13 WIN MERAZ [facility]
--- NOTE | 2024-02-15 18:04 | EKG ---
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
== END 2024-02-10 13:15 | disposition home or self-care (01) ==
LOC: ER 10:46
DX: R00.2 Palpitations (principal); N39.0 Urinary tract infection, site not specified; J98.11 Atelectasis; I10 Essential (primary) hypertension; E06.3 Autoimmune thyroiditis; F41.9 Anxiety disorder, unspecified; Z88.0 Allergy status to penicillin
CPT/HCPCS: 36415; 71275; 80053; 81001; 81025; 84443; 84484; 85025; 85379; 87086; 87088; 93005; 93970; 96361; 96374; 99284; J0696; J7030; Q9967

== ENCOUNTER 2024-03-11 11:26 | Emergency (ER) | payer SELFPAY ==
--- OUTSIDE RECORDS SUMMARY | 2024-03-11 11:38 | XMS REPORT | Continuity of Care Document ---
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 13:27: 08 Yes 1 tablet in the morning on an empty stomach [facility] proMETHazin e (PHENERGAN) 25 mg in NaCl 0.9% (NS) 50 mL piggyback 11-25 18:45: 00 11-25 18:57 :00 No 25mg 25 mg, IV Piggyback, ONCE, 1 dose, On Wed11/25/22 at 1345, 50 mL [facility] NaCl 0.9% (NS) IV infusion 1,000 mL 11-25 18:30: 00 11-25 19:46 :00 No 1000mL at 150 mL/hr, IV Infusion, ONCE, 1 dose, On Wed11/25/22 at 1330, Routine [facility] vit/iron fum/folic ac ( 1 + 1 ORAL) 11-25 17:10: 14 Yes Take by mouth. [facility] levothyroxi ne 137 mcg tablet 11-25 17:10: 14 Yes 1 tablet in the morning on an empty stomach [facility] vit/iron fum/folic ac ( 1 + 1 ORAL) 11-19 13:54: 14 Yes Take by mouth. [facility] levothyroxi ne 137 mcg tablet 11-19 13:54: 14 Yes 1 tablet in the morning on an empty stomach [facility] vit/iron fum/folic ac ( 1 + 1 ORAL) 11-02 10:45: 21 Yes Take by mouth. [facility] levothyroxi ne 137 mcg tablet 11-02 10:45: 21 Yes 1 tablet in the morning on an empty stomach [facility] Blood-Gluco se Meter Kit 10-29 00:00: 00 12-31 00:00 :00 No Check glucose 4 times a day. [facility] blood sugar diagnostic (BLOOD GLUCOSE TEST) strip 10-29 00:00: 12-31 00:00 :00 No Check gluocose 4 times a day [facility] Lancets Misc 5-04 00:00: 00 12-31 00:00 :00 No Check glucose 4 times a day [facility] Alcohol Swabs (ALCOHOL PADS) PadM 5- 00:00: 00 12-31 00:00 :00 No Apply to area(s) 4 (four) times daily. [facility] ondansetron 8 mg disintegrat ing tablet 10-23 00:00: 00 12-31 00:00 :00 No [id number] 8mg Take 1 tablet by mouth every 8 (eight) hours as needed for Nausea and Vomiting (N/V). [facility] vit/iron fum/folic ac ( 1 + 1 ORAL) 10-11 15:03: 55 Yes Take by mouth. [facility] levothyroxi ne 137 mcg tablet 10-11 15:03: 55 Yes 1 tablet in the morning on an empty stomach [facility] Levothyroxi ne 137 mcg Cap 10-09 15:27: 26 10-09 00:00 :00 No Take by mouth. [facility] DULoxetine (CYMBALTA) 30 mg capsule 10-09 15:27: 05 10-09 00:00 :00 No 30mg Take 30 mg by mouth in the morning. [facility] magnesium oxide 400 mg (241.3 mg magnesium) tablet 10-09 00:00: 00 12-31 00:00 :00 No [id number] 400mg Take 1 tablet by mouth in the morning. [facility] DULoxetine 60 mg capsule 12 00:00: 00 01-26 00:00 :00 No [facility] acetaminoph en (TYLENOL) tablet 650 mg 09-26 02:33: 09 Yes 650mg 650 mg, Oral, Q6HPRN, Starting on Wed09/25/22 at 2133, Until Discontinu ed, Routine, Pain (scale 4-6) [facility] Levothyroxi ne 137 mcg Cap 09-25 23:25: 16 Yes Take by mouth. [facility] vit/iron fum/folic ac ( 1 + 1 ORAL) 09-25 23:25: 16 Yes Take by mouth. [facility] DULoxetine (CYMBALTA) 30 mg capsule 09-25 23:25: 16 Yes 30mg Take 30 mg by mouth in the morning. [facility] Levothyroxi ne 137 mcg Cap 09-02 22:30: 50 Yes Take by mouth. [facility] vit/iron fum/folic ac ( 1 + 1 ORAL) 09-02 22:30: 50 Yes Take by mouth. [facility] DULoxetine (CYMBALTA) 30 mg capsule 09-02 22:30: 50 Yes 30mg Take 30 mg by mouth in the morning. [facility] vit/iron fum/folic ac ( 1 + 1 ORAL) 02-09 15:42: 19 Yes Take by mouth. [facility] DULoxetine (CYMBALTA) 30 mg capsule 02-09 15:42: 19 Yes 30mg Take 30 mg by mouth in the morning. [facility] Levothyroxi ne 137 mcg Cap 02-05 14:46: 02 Yes Take by mouth. [facility] norethindro ne (ORTHO MICRONOR) 0.35 mg tablet 10-24 00:00: 00 02-05 00:00 :00 No [id number] .35mg Take 1 tablet by mouth daily for 336 days. [facility] Cyclobenzap rine Hcl (Flexeril) 5 Mg TAB 01-30 19:37: 00 No 5mg Three Times A Day as needed for Muscle Tension [facility] Dicyclomine Hcl (Bentyl) 10 Mg CAP 01-29 15:57: 00 No 10mg Four Times Daily as needed for Abdominal Cramps [facility] Ondansetron Hcl (Zofran Odt) 4 Mg TAB.RAPDIS 804 15:57: 00 No 4mg Every 8 Hours as needed for Nausea / Vomiting [facility] Nystatin (Nystatin Liq) 100,000 Unit/1 Ml ORAL.SUSP 18 07:38: 00 No [id number] Four Times Daily [facility] Omeprazole (Prilosec) 40 Mg CPDR No 40mg [facility] Immunizations Ordered Immunization Name Filled Immunization Name Date Status Comments Source Rho (d) Immune Globulin 2022-12-10 00:00:00 Completed [facility] Rho (d) Immune Globulin 2022-12-10 00:00:00 Completed [facility] Rho (d) Immune Globulin 2022-12-10 00:00:00 Completed [facility] Rho (d) Immune Globulin 2022-12-10 00:00:00 Completed [facility] Rho (d) Immune Globulin 2022-12-10 00:00:00 Completed [facility] Rho (d) Immune Globulin 2022-12-10 00:00:00 Completed [facility] Rho (d) Immune Globulin 2022-12-10 00:00:00 Completed [facility] Rho (d) Immune Globulin 2022-12-10 00:00:00 Completed [facility] Rho (d) Immune Globulin 2022-12-10 00:00:00 Completed [facility] Rho (d) Immune Globulin 2022-12-10 00:00:00 Completed [facility] Rho (d) Immune Globulin 2022-12-10 00:00:00 Completed [facility] Rho (d) Immune Globulin 2022-12-10 00:00:00 Completed [facility] Rho (d) Immune Globulin 2022-12-10 00:00:00 Completed [facility] TDAP 2022-10-23 00:00:00 Completed [facility] Rho (d) Immune Globulin 2022-10-23 00:00:00 Completed [facility] TDAP 2022-10-23 00:00:00 Completed [facility] Rho (d) Immune Globulin 2022-10-23 00:00:00 Completed [facility] TDAP 2022-10-23 00:00:00 Completed [facility] Rho (d) Immune Globulin 2022-10-23 00:00:00 Completed [facility] TDAP 2022-10-23 00:00:00 Completed [facility] Rho (d) Immune Globulin 2022-10-23 00:00:00 Completed [facility] TDAP 2022-10-23 00:00:00 Completed [facility] Rho (d) Immune Globulin 2022-10-23 00:00:00 Completed [facility] TDAP 2022-10-23 00:00:00 Completed [facility] Rho (d) Immune Globulin 2022-10-23 00:00:00 Completed [facility] TDAP 2022-10-23 00:00:00 Completed [facility] Rho (d) Immune Globulin 2022-10-23 00:00:00 Completed [facility] TDAP 2022-10-23 00:00:00 Completed [facility] Rho (d) Immune Globulin 2022-10-23 00:00:00 Completed [facility] TDAP 2022-10-23 00:00:00 Completed [facility] Rho (d) Immune Globulin 2022-10-23 00:00:00 Completed [facility] TDAP 2022-10-23 00:00:00 Completed [facility] Rho (d) Immune Globulin 2022-10-23 00:00:00 Completed [facility] TDAP 2022-10-23 00:00:00 Completed [facility] Rho (d) Immune Globulin 2022-10-23 00:00:00 Completed [facility] TDAP 2022-10-23 00:00:00 Completed [facility] Rho (d) Immune Globulin 2022-10-23 00:00:00 Completed [facility] TDAP 2022-10-23 00:00:00 Completed [facility] Rho (d) Immune Globulin 2022-10-23 00:00:00 Completed [facility] TDAP 2022-10-23 00:00:00 Completed [facility] Rho (d) Immune Globulin 2022-10-23 00:00:00 Completed [facility] TDAP 2022-10-23 00:00:00 Completed [facility] Rho (d) Immune Globulin 2022-10-23 00:00:00 Completed [facility] TDAP 2022-10-23 00:00:00 Completed [facility] Rho (d) Immune Globulin 2022-10-23 00:00:00 Completed [facility] TDAP 2022-10-23 00:00:00 Completed [facility] Rho (d) Immune Globulin 2022-10-23 00:00:00 Completed [facility] TDAP 2022-10-23 00:00:00 Completed [facility] Rho (d) Immune Globulin 2022-10-23 00:00:00 Completed [facility] TDAP 2022-10-23 00:00:00 Completed [facility] Rho (d) Immune Globulin 2022-10-23 00:00:00 Completed [facility] TDAP 2022-10-23 00:00:00 Completed [facility] Rho (d) Immune Globulin 2022-10-23 00:00:00 Completed [facility] TDAP 2022-10-23 00:00:00 Completed [facility] Rho (d) Immune Globulin 2022-10-23 00:00:00 Completed [facility] TDAP 2022-10-23 00:00:00 Completed [facility] Rho (d) Immune Globulin 2022-10-23 00:00:00 Completed [facility] TDAP 2022-10-23 00:00:00 Completed [facility] Rho (d) Immune Globulin 2022-10-23 00:00:00 Completed [facility] TDAP 2022-10-23 00:00:00 Completed [facility] Rho (d) Immune Globulin 2022-10-23 00:00:00 Completed [facility] TDAP 2022-10-23 00:00:00 Completed [facility] Rho (d) Immune Globulin 2022-10-23 00:00:00 Completed [facility] TDAP 2022-10-23 00:00:00 Completed [facility] Rho (d) Immune Globulin 2022-10-23 00:00:00 Completed [facility] TDAP 2022-10-23 00:00:00 Completed [facility] Rho (d) Immune Globulin 2022-10-23 00:00:00 Completed [facility] TDAP 2022-10-23 00:00:00 Completed [facility] Rho (d) Immune Globulin 2022-10-23 00:00:00 Completed [facility] TDAP 2022-10-23 00:00:00 Completed [facility] Rho (d) Immune Globulin 2022-10-23 00:00:00 Completed [facility] TDAP 2022-10-23 00:00:00 Completed [facility] Rho (d) Immune Globulin 2022-10-23 00:00:00 Completed [facility] TDAP 2022-10-23 00:00:00 Completed [facility] Rho (d) Immune Globulin 2022-10-23 00:00:00 Completed [facility] TDAP 2022-10-23 00:00:00 Completed [facility] Rho (d) Immune Globulin 2022-10-23 00:00:00 Completed [facility] TDAP 2022-10-23 00:00:00 Completed [facility] Rho (d) Immune Globulin 2022-10-23 00:00:00 Completed [facility] TDAP 2022-10-23 00:00:00 Completed [facility] Rho (d) Immune Globulin 2022-10-23 00:00:00 Completed [facility] TDAP 2022-10-23 00:00:00 Completed [facility] Rho (d) Immune Globulin 2022-10-23 00:00:00 Completed [facility] TDAP 2022-10-23 00:00:00 Completed [facility] Rho (d) Immune Globulin 2022-10-23 00:00:00 Completed [facility] TDAP 2022-10-23 00:00:00 Completed [facility] Rho (d) Immune Globulin 2022-10-23 00:00:00 Completed [facility] TDAP 2022-10-23 00:00:00 Completed [facility] Rho (d) Immune Globulin 2022-10-23 00:00:00 Completed [facility] TDAP 2022-10-23 00:00:00 Completed [facility] Rho (d) Immune Globulin 2022-10-23 00:00:00 Completed [facility] TDAP 2022-10-23 00:00:00 Completed [facility] Rho (d) Immune Globulin 2022-10-23 00:00:00 Completed [facility] TDAP 2022-10-23 00:00:00 Completed [facility] Rho (d) Immune Globulin 2022-10-23 00:00:00 Completed [facility] TDAP 2022-10-23 00:00:00 Completed [facility] Rho (d) Immune Globulin 2022-10-23 00:00:00 Completed [facility] SARS-COV-2 COVID-19 MODERNA 12+ YRS VACCINE 2021-02-25 00:00:00 Completed [facility] SARS-COV-2 COVID-19 MODERNA 12+ YRS VACCINE 2021-02-25 00:00:00 Completed [facility] SARS-COV-2 COVID-19 MODERNA 12+ YRS VACCINE 2021-02-25 00:00:00 Completed [facility] SARS-COV-2 COVID-19 MODERNA 12+ YRS VACCINE 2021-02-25 00:00:00 Completed [facility] SARS-COV-2 COVID-19 MODERNA 12+ YRS VACCINE 2021-02-25 00:00:00 Completed [facility] SARS-COV-2 COVID-19 MODERNA 12+ YRS VACCINE 2021-02-25 00:00:00 Completed [facility] SARS-COV-2 COVID-19 MODERNA 12+ YRS VACCINE 2021-02-25 00:00:00 Completed [facility] SARS-COV-2 COVID-19 MODERNA 12+ YRS VACCINE 2021-02-25 00:00:00 Completed [facility] SARS-COV-2 COVID-19 MODERNA 12+ YRS VACCINE 2021-02-25 00:00:00 Completed [facility] SARS-COV-2 COVID-19 MODERNA VACCINE 2021-02-25 00:00:00 Completed [facility] SARS-COV-2 COVID-19 MODERNA 12+ YRS VACCINE 2021-02-25 00:00:00 Completed [facility] SARS-COV-2 COVID-19 MODERNA 12+ YRS VACCINE 2021-02-25 00:00:00 Completed [facility] SARS-COV-2 COVID-19 MODERNA 12+ YRS VACCINE 2021-02-25 00:00:00 Completed [facility] SARS-COV-2 COVID-19 MODERNA 12+ YRS VACCINE 2021-02-25 00:00:00 Completed [facility] SARS-COV-2 COVID-19 MODERNA VACCINE 2021-02-25 00:00:00 Completed [facility] SARS-COV-2 COVID-19 MODERNA 12+ YRS VACCINE 2021-02-25 00:00:00 Completed [facility] SARS-COV-2 COVID-19 MODERNA 12+ YRS VACCINE 2021-02-25 00:00:00 Completed [facility] SARS-COV-2 COVID-19 MODERNA VACCINE 2021-02-25 00:00:00 Completed [facility] SARS-COV-2 COVID-19 MODERNA VACCINE 2021-02-25 00:00:00 Completed [facility] SARS-COV-2 COVID-19 MODERNA 12+ YRS VACCINE 2021-02-25 00:00:00 Completed [facility] SARS-COV-2 COVID-19 MODERNA 12+ YRS VACCINE 2021-02-25 00:00:00 Completed [facility] SARS-COV-2 COVID-19 MODERNA 12+ YRS VACCINE 2021-02-25 00:00:00 Completed [facility] SARS-COV-2 COVID-19 MODERNA 12+ YRS VACCINE 2021-02-25 00:00:00 Completed [facility] SARS-COV-2 COVID-19 MODERNA 12+ YRS VACCINE 2021-02-25 00:00:00 Completed [facility] SARS-COV-2 COVID-19 MODERNA 12+ YRS VACCINE 2021-02-25 00:00:00 Completed [facility] SARS-COV-2 COVID-19 MODERNA 12+ YRS VACCINE 2021-02-25 00:00:00 Completed [facility] SARS-COV-2 COVID-19 MODERNA 12+ YRS VACCINE 2021-02-25 00:00:00 Completed [facility] SARS-COV-2 COVID-19 MODERNA 12+ YRS VACCINE 2021-02-25 00:00:00 Completed [facility] SARS-COV-2 COVID-19 MODERNA 12+ YRS VACCINE 2021-02-25 00:00:00 Completed [facility] SARS-COV-2 COVID-19 MODERNA 12+ YRS VACCINE 2021-02-25 00:00:00 Completed [facility] SARS-COV-2 COVID-19 MODERNA 12+ YRS VACCINE 2021-02-25 00:00:00 Completed [facility] SARS-COV-2 COVID-19 MODERNA 12+ YRS VACCINE 2021-02-25 00:00:00 Completed [facility] SARS-COV-2 COVID-19 MODERNA 12+ YRS VACCINE 2021-02-25 00:00:00 Completed [facility] SARS-COV-2 COVID-19 MODERNA 12+ YRS VACCINE 2021-02-25 00:00:00 Completed [facility] SARS-COV-2 COVID-19 MODERNA 12+ YRS VACCINE 2021-02-25 00:00:00 Completed [facility] SARS-COV-2 COVID-19 MODERNA 12+ YRS VACCINE 2021-02-25 00:00:00 Completed [facility] SARS-COV-2 COVID-19 MODERNA 12+ YRS VACCINE 2021-02-25 00:00:00 Completed [facility] SARS-COV-2 COVID-19 MODERNA 12+ YRS VACCINE 2021-02-25 00:00:00 Completed [facility] SARS-COV-2 COVID-19 MODERNA 12+ YRS VACCINE 2021-02-25 00:00:00 Completed [facility] SARS-COV-2 COVID-19 MODERNA 12+ YRS VACCINE 2021-02-25 00:00:00 Completed [facility] SARS-COV-2 COVID-19 MODERNA 12+ YRS VACCINE 2021-02-25 00:00:00 Completed [facility] SARS-COV-2 COVID-19 MODERNA 12+ YRS VACCINE 2021-02-25 00:00:00 Completed [facility] SARS-COV-2 COVID-19 MODERNA 12+ YRS VACCINE 2021-02-25 00:00:00 Completed [facility] SARS-COV-2 COVID-19 MODERNA 12+ YRS VACCINE 2021-02-25 00:00:00 Completed [facility] SARS-COV-2 COVID-19 MODERNA 12+ YRS VACCINE 2021-02-25 00:00:00 Completed [facility] SARS-COV-2 COVID-19 MODERNA 12+ YRS VACCINE 2021-02-25 00:00:00 Completed [facility] SARS-COV-2 COVID-19 MODERNA 12+ YRS VACCINE 2021-02-25 00:00:00 Completed [facility] SARS-COV-2 COVID-19 MODERNA 12+ YRS VACCINE 2021-02-25 00:00:00 Completed [facility] SARS-COV-2 COVID-19 MODERNA 12+ YRS VACCINE 2021-02-25 00:00:00 Completed [facility] SARS-COV-2 COVID-19 MODERNA 12+ YRS VACCINE 2021-02-25 00:00:00 Completed [facility] SARS-COV-2 COVID-19 MODERNA 12+ YRS VACCINE 2021-02-25 00:00:00 Completed [facility] SARS-COV-2 COVID-19 MODERNA 12+ YRS VACCINE 2021-02-25 00:00:00 Completed [facility] SARS-COV-2 COVID-19 MODERNA 12+ YRS VACCINE 2021-02-25 00:00:00 Completed [facility] SARS-COV-2 COVID-19 MODERNA 12+ YRS VACCINE 2021-02-25 00:00:00 Completed [facility] SARS-COV-2 COVID-19 MODERNA 12+ YRS VACCINE 2021-02-25 00:00:00 Completed [facility] SARS-COV-2 COVID-19 MODERNA 12+ YRS VACCINE 2021-02-25 00:00:00 Completed [facility] SARS-COV-2 COVID-19 MODERNA 12+ YRS VACCINE Unknown Completed [facility] TDAP Unknown Completed [facility] Rho (d) Immune Globulin Unknown Completed [facility] Rho (d) Immune Globulin Unknown Completed [facility] Influenza Virus Vaccine Quad IM, Preserv and ABX Free 6 MO-64 YRS (FLUCELVAX) Unknown Completed [facility] SARS-COV-2 COVID-19 MODERNA 12+ YRS VACCINE Unknown Completed [facility] TDAP Unknown Completed [facility] Rho (d) Immune Globulin Unknown Completed [facility] Rho (d) Immune Globulin Unknown Completed [facility] Influenza Virus Vaccine Quad IM, Preserv and ABX Free 6 MO-64 YRS (FLUCELVAX) Unknown Completed [facility] SARS-COV-2 COVID-19 VACCINE - (MODERNA) Unknown [facility]pleted [facility] SARS-COV-2 COVID-19 MODERNA 12+ YRS VACCINE Unknown Completed [facility] TDAP Unknown Completed [facility] Rho (d) Immune Globulin Unknown Completed [facility] Rho (d) Immune Globulin Unknown Completed [facility] Influenza Virus Vaccine Quad IM, Preserv and ABX Free 6 MO-64 YRS (FLUCELVAX) Unknown Completed [facility] SARS-COV-2 COVID-19 VACCINE - (MODERNA) Unknown Completed [facility] SARS-COV-2 COVID-19 MODERNA 12+ YRS VACCINE Unknown Completed [facility] TDAP Unknown Completed [facility] Rho (d) Immune Globulin Unknown Completed [facility] Rho (d) Immune Globulin Unknown Completed [facility] Influenza Virus Vaccine Quad IM, Preserv and ABX Free 6 MO-64 YRS (FLUCELVAX) Unknown Completed [facility] SARS-COV-2 COVID-19 VACCINE - (MODERNA) Unknown Completed [facility] SARS-COV-2 COVID-19 MODERNA 12+ YRS VACCINE Unknown Completed [facility] TDAP Unknown Completed [facility] Rho (d) Immune Globulin Unknown Completed [facility] Rho (d) Immune Globulin Unknown Completed [facility] Influenza Virus Vaccine Quad IM, Preserv and ABX Free 6 MO-64 YRS (FLUCELVAX) Unknown Completed [facility] SARS-COV-2 COVID-19 VACCINE - (MODERNA) Unknown Completed [facility] SARS-COV-2 COVID-19 MODERNA 12+ YRS VACCINE Unknown Completed [facility] TDAP Unknown Completed [facility] Rho (d) Immune Globulin Unknown Completed [facility] Rho (d) Immune Globulin Unknown Completed [facility] Influenza Virus Vaccine Quad IM, Preserv and ABX Free 6 MO-64 YRS (FLUCELVAX) Unknown Completed [facility] SARS-COV-2 COVID-19 VACCINE - (MODERNA) Unknown Completed [facility] SARS-COV-2 COVID-19 MODERNA 12+ YRS VACCINE Unknown Completed [facility] TDAP Unknown Completed [facility] Rho (d) Immune Globulin Unknown Completed [facility] Rho (d) Immune Globulin Unknown Completed [facility] Influenza Virus Vaccine Quad IM, Preserv and ABX Free 6 MO-64 YRS (FLUCELVAX) Unknown Completed [facility] SARS-COV-2 COVID-19 VACCINE - (MODERNA) Unknown Completed [facility] SARS-COV-2 COVID-19 MODERNA 12+ YRS VACCINE Unknown Completed [facility] TDAP Unknown Completed [facility] Rho (d) Immune Globulin Unknown Completed [facility] Rho (d) Immune Globulin Unknown Completed [facility] Influenza Virus Vaccine Quad IM, Preserv and ABX Free 6 MO-64 YRS (FLUCELVAX) Unknown Completed [facility] SARS-COV-2 COVID-19 VACCINE - (MODERNA) Unknown Completed [facility] SARS-COV-2 COVID-19 MODERNA 12+ YRS VACCINE Unknown Completed [facility] TDAP Unknown Completed [facility] Rho (d) Immune Globulin Unknown Completed [facility] Rho (d) Immune Globulin Unknown Completed [facility] Influenza Virus Vaccine Quad IM, Preserv and ABX Free 6 MO-64 YRS (FLUCELVAX) Unknown Completed [facility] SARS-COV-2 COVID-19 VACCINE - (MODERNA) Unknown Completed [facility] SARS-COV-2 COVID-19 MODERNA 12+ YRS VACCINE Unknown Completed [facility] TDAP Unknown Completed [facility] Rho (d) Immune Globulin Unknown Completed [facility] Rho (d) Immune Globulin Unknown Completed [facility] Influenza Virus Vaccine Quad IM, Preserv and ABX Free 6 MO-64 YRS (FLUCELVAX) Unknown Completed [facility] SARS-COV-2 COVID-19 VACCINE - (MODERNA) Unknown Completed [facility] SARS-COV-2 COVID-19 MODERNA 12+ YRS VACCINE Unknown Completed [facility] TDAP Unknown Completed [facility] Rho (d) Immune Globulin Unknown Completed [facility] Rho (d) Immune Globulin Unknown Completed [facility] Influenza Virus Vaccine Quad IM, Preserv and ABX Free 6 MO-64 YRS (FLUCELVAX) Unknown Completed [facility] SARS-COV-2 COVID-19 VACCINE - (MODERNA) Unknown Completed [facility] SARS-COV-2 COVID-19 MODERNA 12+ YRS VACCINE Unknown Completed [facility] TDAP Unknown Completed [facility] Rho (d) Immune Globulin Unknown Completed [facility] Rho (d) Immune Globulin Unknown Completed [facility] Influenza Virus Vaccine Quad IM, Preserv and ABX Free 6 MO-64 YRS (FLUCELVAX) Unknown Completed [facility] SARS-COV-2 COVID-19 VACCINE - (MODERNA) Unknown Completed [facility] SARS-COV-2 COVID-19 MODERNA 12+ YRS VACCINE Unknown Completed [facility] TDAP Unknown Completed [facility] Rho (d) Immune Globulin Unknown Completed [facility] Rho (d) Immune Globulin Unknown Completed [facility] Influenza Virus Vaccine Quad IM, Preserv and ABX Free 6 MO-64 YRS (FLUCELVAX) Unknown Completed [facility] SARS-COV-2 COVID-19 VACCINE - (MODERNA) Unknown Completed [facility] SARS-COV-2 COVID-19 MODERNA 12+ YRS VACCINE Unknown Completed [facility] TDAP Unknown Completed [facility] Rho (d) Immune Globulin Unknown Completed [facility] Rho (d) Immune Globulin Unknown Completed [facility] Influenza Virus Vaccine Quad IM, Preserv and ABX Free 6 MO-64 YRS (FLUCELVAX) Unknown Completed [facility] SARS-COV-2 COVID-19 VACCINE - (MODERNA) Unknown Completed [facility] SARS-COV-2 COVID-19 MODERNA 12+ YRS VACCINE Unknown Completed [facility] TDAP Unknown Completed [facility] Rho (d) Immune Globulin Unknown Completed [facility] Rho (d) Immune Globulin Unknown Completed [facility] Influenza Virus Vaccine Quad IM, Preserv and ABX Free 6 MO-64 YRS (FLUCELVAX) Unknown Completed [facility] SARS-COV-2 COVID-19 VACCINE - (MODERNA) Unknown Completed [facility] SARS-COV-2 COVID-19 MODERNA 12+ YRS VACCINE Unknown Completed [facility] TDAP Unknown Completed [facility] Rho (d) Immune Globulin Unknown Completed [facility] Rho (d) Immune Globulin Unknown Completed [facility] Influenza Virus Vaccine Quad IM, Preserv and ABX Free 6 MO-64 YRS (FLUCELVAX) Unknown Completed [facility] SARS-COV-2 COVID-19 VACCINE - (MODERNA) Unknown Completed [facility] SARS-COV-2 COVID-19 MODERNA 12+ YRS VACCINE Unknown Completed [facility] TDAP Unknown Completed [facility] Rho (d) Immune Globulin Unknown Completed [facility] Rho (d) Immune Globulin Unknown Completed [facility] Influenza Virus Vaccine Quad IM, Preserv and ABX Free 6 MO-64 YRS (FLUCELVAX) Unknown Completed [facility] SARS-COV-2 COVID-19 VACCINE - (MODERNA) Unknown Completed [facility] SARS-COV-2 COVID-19 MODERNA 12+ YRS VACCINE Unknown Completed [facility] TDAP Unknown Completed [facility] Rho (d) Immune Globulin Unknown Completed [facility] Rho (d) Immune Globulin Unknown Completed [facility] Influenza Virus Vaccine Quad IM, Preserv and ABX Free 6 MO-64 YRS (FLUCELVAX) Unknown Completed [facility] SARS-COV-2 COVID-19 VACCINE - (MODERNA) Unknown Completed [facility] SARS-COV-2 COVID-19 MODERNA 12+ YRS VACCINE Unknown Completed [facility] TDAP Unknown Completed [facility] Rho (d) Immune Globulin Unknown Completed [facility] Rho (d) Immune Globulin Unknown Completed [facility] Influenza Virus Vaccine Quad IM, Preserv and ABX Free 6 MO-64 YRS (FLUCELVAX) Unknown Completed [facility] SARS-COV-2 COVID-19 VACCINE - (MODERNA) Unknown Completed [facility] SARS-COV-2 COVID-19 MODERNA 12+ YRS VACCINE Unknown Completed [facility] TDAP Unknown Completed [facility] Rho (d) Immune Globulin Unknown Completed [facility] Rho (d) Immune Globulin Unknown Completed [facility] Influenza Virus Vaccine Quad IM, Preserv and ABX Free 6 MO-64 YRS (FLUCELVAX) Unknown Completed [facility] SARS-COV-2 COVID-19 VACCINE - (MODERNA) Unknown Completed [facility] SARS-COV-2 COVID-19 MODERNA 12+ YRS VACCINE Unknown Completed [facility] TDAP Unknown Completed [facility] Rho (d) Immune Globulin Unknown Completed [facility] Rho (d) Immune Globulin Unknown Completed [facility] Influenza Virus Vaccine Quad IM, Preserv and ABX Free 6 MO-64 YRS (FLUCELVAX) Unknown Completed [facility] SARS-COV-2 COVID-19 VACCINE - (MODERNA) Unknown Completed [facility] SARS-COV-2 COVID-19 MODERNA 12+ YRS VACCINE Unknown Completed [facility] TDAP Unknown Completed [facility] Rho (d) Immune Globulin Unknown Completed [facility] Rho (d) Immune Globulin Unknown Completed [facility] Influenza Virus Vaccine Quad IM, Preserv and ABX Free 6 MO-64 YRS (FLUCELVAX) Unknown Completed [facility] SARS-COV-2 COVID-19 VACCINE - (MODERNA) Unknown Completed [facility] SARS-COV-2 COVID-19 MODERNA 12+ YRS VACCINE Unknown Completed [facility] TDAP Unknown Completed [facility] Rho (d) Immune Globulin Unknown Completed [facility] Rho (d) Immune Globulin Unknown Completed [facility] Influenza Virus Vaccine Quad IM, Preserv and ABX Free 6 MO-64 YRS (FLUCELVAX) Unknown Completed [facility] SARS-COV-2 COVID-19 VACCINE - (MODERNA) Unknown Completed [facility] SARS-COV-2 COVID-19 MODERNA 12+ YRS VACCINE Unknown Completed [facility] TDAP Unknown Completed [facility] Rho (d) Immune Globulin Unknown Completed [facility] Rho (d) Immune Globulin Unknown Completed [facility] Influenza Virus Vaccine Quad IM, Preserv and ABX Free 6 MO-64 YRS (FLUCELVAX) Unknown Completed [facility] SARS-COV-2 COVID-19 VACCINE - (MODERNA) Unknown Completed [facility] SARS-COV-2 COVID-19 MODERNA 12+ YRS VACCINE Unknown Completed [facility] TDAP Unknown Completed [facility] Rho (d) Immune Globulin Unknown Completed [facility] Rho (d) Immune Globulin Unknown Completed [facility] Influenza Virus Vaccine Quad IM, Preserv and ABX Free 6 MO-64 YRS (FLUCELVAX) Unknown Completed [facility] SARS-COV-2 COVID-19 VACCINE - (MODERNA) Unknown Completed [facility] SARS-COV-2 COVID-19 MODERNA 12+ YRS VACCINE Unknown Completed [facility] TDAP Unknown Completed [facility] Rho (d) Immune Globulin Unknown Completed [facility] Rho (d) Immune Globulin Unknown Completed [facility] Influenza Virus Vaccine Quad IM, Preserv and ABX Free 6 MO-64 YRS (FLUCELVAX) Unknown Completed [facility] SARS-COV-2 COVID-19 VACCINE - (MODERNA) [facility] MODERNA 12+ YRS VACCINE Unknown Completed [facility] TDAP Unknown Completed [facility] Rho (d) Immune Globulin Unknown Completed [facility] Rho (d) Immune Globulin Unknown Completed [facility] Influenza Virus Vaccine Quad IM, Preserv and ABX Free 6 MO-64 YRS (FLUCELVAX) Unknown Completed [facility] SARS-COV-2 COVID-19 VACCINE - (MODERNA) Unknown Completed [facility] SARS-COV-2 COVID-19 MODERNA 12+ YRS VACCINE Unknown Completed [facility] TDAP Unknown Completed [facility] Rho (d) Immune Globulin Unknown Completed [facility] Rho (d) Immune Globulin Unknown Completed [facility] Influenza Virus Vaccine Quad IM, Preserv and ABX Free 6 MO-64 YRS (FLUCELVAX) Unknown Completed [facility] SARS-COV-2 COVID-19 VACCINE - (MODERNA) Unknown Completed [facility] SARS-COV-2 COVID-19 MODERNA 12+ YRS VACCINE Unknown Completed [facility] TDAP Unknown Completed [facility] Rho (d) Immune Globulin Unknown Completed [facility] Rho (d) Immune Globulin Unknown Completed [facility] Influenza Virus Vaccine Quad IM, Preserv and ABX Free 6 MO-64 YRS (FLUCELVAX) Unknown Completed [facility] SARS-COV-2 COVID-19 VACCINE - (MODERNA) Unknown Completed [facility] SARS-COV-2 COVID-19 MODERNA 12+ YRS VACCINE Unknown Completed [facility] TDAP Unknown Completed [facility] Rho (d) Immune Globulin Unknown Completed [facility] Rho (d) Immune Globulin Unknown Completed [facility] Influenza Virus Vaccine Quad IM, Preserv and ABX Free 6 MO-64 YRS (FLUCELVAX) Unknown Completed [facility] SARS-COV-2 COVID-19 VACCINE - (MODERNA) Unknown Completed [facility] SARS-COV-2 COVID-19 MODERNA 12+ YRS VACCINE Unknown Completed [facility] TDAP Unknown Completed [facility] Rho (d) Immune Globulin Unknown Completed [facility] Rho (d) Immune Globulin Unknown Completed [facility] Influenza Virus Vaccine Quad IM, Preserv and ABX Free 6 MO-64 YRS (FLUCELVAX) Unknown Completed [facility] SARS-COV-2 COVID-19 VACCINE - (MODERNA) Unknown Completed [facility] SARS-COV-2 COVID-19 MODERNA 12+ YRS VACCINE Unknown Completed [facility] TDAP Unknown Completed [facility] Rho (d) Immune Globulin Unknown Completed [facility] Rho (d) Immune Globulin Unknown Completed [facility] Influenza Virus Vaccine Quad IM, Preserv and ABX Free 6 MO-64 YRS (FLUCELVAX) Unknown Completed [facility] SARS-COV-2 COVID-19 VACCINE - (MODERNA) Unknown Completed [facility] SARS-COV-2 COVID-19 MODERNA 12+ YRS VACCINE Unknown Completed [facility] TDAP Unknown Completed [facility] Rho (d) Immune Globulin Unknown Completed [facility] Rho (d) Immune Globulin Unknown Completed [facility] Influenza Virus Vaccine Quad IM, Preserv and ABX Free 6 MO-64 YRS (FLUCELVAX) Unknown Completed [facility] SARS-COV-2 COVID-19 VACCINE - (MODERNA) Unknown Completed [facility] SARS-COV-2 COVID-19 MODERNA 12+ YRS VACCINE Unknown Completed [facility] TDAP Unknown Completed [facility] Rho (d) Immune Globulin Unknown Completed [facility] Rho (d) Immune Globulin Unknown Completed [facility] Influenza Virus Vaccine Quad IM, Preserv and ABX Free 6 MO-64 YRS (FLUCELVAX) Unknown Completed [facility] SARS-COV-2 COVID-19 VACCINE - (MODERNA) Unknown Completed [facility] SARS-COV-2 COVID-19 MODERNA 12+ YRS VACCINE Unknown Completed [facility] TDAP Unknown Completed [facility] Rho (d) Immune Globulin Unknown Completed [facility] Rho (d) Immune Globulin Unknown Completed [facility] Influenza Virus Vaccine Quad IM, Preserv and ABX Free 6 MO-64 YRS (FLUCELVAX) Unknown Completed [facility] SARS-COV-2 COVID-19 VACCINE - (MODERNA) Unknown Completed [facility] SARS-COV-2 COVID-19 MODERNA 12+ YRS VACCINE Unknown Completed [facility] TDAP Unknown Completed [facility] Rho (d) Immune Globulin Unknown Completed [facility] Rho (d) Immune Globulin Unknown Completed [facility] Influenza Virus Vaccine Quad IM, Preserv and ABX Free 6 MO-64 YRS (FLUCELVAX) Unknown Completed [facility] SARS-COV-2 COVID-19 VACCINE - (MODERNA) Unknown Completed [facility] SARS-COV-2 COVID-19 MODERNA 12+ YRS VACCINE Unknown Completed [facility] TDAP Unknown Completed [facility] Rho (d) Immune Globulin Unknown Completed [facility] Rho (d) Immune Globulin Unknown Completed [facility] Influenza Virus Vaccine Quad IM, Preserv and ABX Free 6 MO-64 YRS (FLUCELVAX) Unknown Completed [facility] SARS-COV-2 COVID-19 VACCINE - (MODERNA) Unknown Completed [facility] SARS-COV-2 COVID-19 MODERNA 12+ YRS VACCINE Unknown Completed [facility] TDAP Unknown Completed [facility] Rho (d) Immune Globulin Unknown Completed [facility] Rho (d) Immune Globulin Unknown Completed [facility] Influenza Virus Vaccine Quad IM, Preserv and ABX Free 6 MO-64 YRS (FLUCELVAX) Unknown Completed [facility] SARS-COV-2 COVID-19 VACCINE - (MODERNA) Unknown Completed [facility] SARS-COV-2 COVID-19 MODERNA 12+ YRS VACCINE Unknown Completed [facility] TDAP Unknown Completed [facility] Rho (d) Immune Globulin Unknown Completed [facility] Rho (d) Immune Globulin Unknown Completed [facility] Influenza Virus Vaccine Quad IM, Preserv and ABX Free 6 MO-64 YRS (FLUCELVAX) Unknown Completed [facility] SARS-COV-2 COVID-19 VACCINE - (MODERNA) Unknown Completed [facility] SARS-COV-2 COVID-19 MODERNA 12+ YRS VACCINE Unknown Completed [facility] TDAP Unknown Completed [facility] Rho (d) Immune Globulin Unknown Completed [facility] Rho (d) Immune Globulin Unknown Completed [facility] Influenza Virus Vaccine Quad IM, Preserv and ABX Free 6 MO-64 YRS (FLUCELVAX) Unknown Completed [facility] SARS-COV-2 COVID-19 VACCINE - (MODERNA) Unknown Completed [facility] SARS-COV-2 COVID-19 MODERNA 12+ YRS VACCINE Unknown Completed [facility] TDAP Unknown Completed [facility] Rho (d) Immune Globulin Unknown Completed [facility] Rho (d) Immune Globulin Unknown Completed [facility] Influenza Virus Vaccine Quad IM, Preserv and ABX Free 6 MO-64 YRS (FLUCELVAX) Unknown Completed [facility] SARS-COV-2 COVID-19 VACCINE - (MODERNA) Unknown Completed [facility] SARS-COV-2 COVID-19 MODERNA 12+ YRS VACCINE Unknown Completed [facility] TDAP Unknown Completed [facility] Rho (d) Immune Globulin Unknown Completed [facility] Rho (d) Immune Globulin Unknown Completed [facility] Influenza Virus Vaccine Quad IM, Preserv and ABX Free 6 MO-64 YRS (FLUCELVAX) Unknown Completed [facility] SARS-COV-2 COVID-19 VACCINE - (MODERNA) Unknown Completed [facility] SARS-COV-2 COVID-19 MODERNA 12+ YRS VACCINE Unknown Completed [facility] TDAP Unknown Completed [facility] Rho (d) Immune Globulin Unknown Completed [facility] Rho (d) Immune Globulin Unknown Completed [facility] Influenza Virus Vaccine Quad IM, Preserv and ABX Free 6 MO-64 YRS (FLUCELVAX) Unknown Completed [facility] SARS-COV-2 COVID-19 VACCINE - (MODERNA) Unknown Completed [facility] SARS-COV-2 COVID-19 MODERNA 12+ YRS VACCINE Unknown Completed [facility] TDAP Unknown Completed [facility] Rho (d) Immune Globulin Unknown Completed [facility] Rho (d) Immune Globulin Unknown Completed [facility] Influenza Virus Vaccine Quad IM, Preserv and ABX Free 6 MO-64 YRS (FLUCELVAX) Unknown Completed [facility] SARS-COV-2 COVID-19 VACCINE - (MODERNA) Unknown Completed [facility] SARS-COV-2 COVID-19 MODERNA 12+ YRS VACCINE Unknown Completed [facility] TDAP Unknown Completed [facility] Rho (d) Immune Globulin Unknown Completed [facility] Rho (d) Immune Globulin Unknown Completed [facility] Influenza Virus Vaccine Quad IM, Preserv and ABX Free 6 MO-64 YRS (FLUCELVAX) Unknown Completed [facility] SARS-COV-2 COVID-19 VACCINE - (MODERNA) Unknown Completed [facility] SARS-COV-2 COVID-19 MODERNA 12+ YRS VACCINE Unknown Completed [facility] TDAP Unknown Completed [facility] Rho (d) Immune Globulin Unknown Completed [facility] Rho (d) Immune Globulin Unknown Completed [facility] Influenza Virus Vaccine Quad IM, Preserv and ABX Free 6 MO-64 YRS (FLUCELVAX) Unknown Completed [facility] SARS-COV-2 COVID-19 VACCINE - (MODERNA) Unknown Completed [facility] SARS-COV-2 COVID-19 MODERNA 12+ YRS VACCINE Unknown Completed [facility] TDAP Unknown Completed [facility] Rho (d) Immune Globulin Unknown Completed [facility] Rho (d) Immune Globulin Unknown Completed [facility] Influenza Virus Vaccine Quad IM, Preserv and ABX Free 6 MO-64 YRS (FLUCELVAX) Unknown Completed [facility] SARS-COV-2 COVID-19 VACCINE - (MODERNA) Unknown Completed [facility] SARS-COV-2 COVID-19 MODERNA 12+ YRS VACCINE Unknown Completed [facility] TDAP Unknown Completed [facility] Rho (d) Immune Globulin Unknown Completed [facility] Rho (d) Immune Globulin Unknown Completed [facility] Influenza Virus Vaccine Quad IM, Preserv and ABX Free 6 MO-64 YRS (FLUCELVAX) Unknown Completed [facility] SARS-COV-2 COVID-19 VACCINE - (MODERNA) Unknown Completed [facility] SARS-COV-2 COVID-19 MODERNA 12+ YRS VACCINE Unknown Completed [facility] TDAP Unknown Completed [facility] Rho (d) Immune Globulin Unknown Completed [facility] Rho (d) Immune Globulin Unknown Completed [facility] Influenza Virus Vaccine Quad IM, Preserv and ABX Free 6 MO-64 YRS (FLUCELVAX) Unknown Completed [facility] SARS-COV-2 COVID-19 VACCINE - (MODERNA) Unknown Completed [facility] SARS-COV-2 COVID-19 MODERNA 12+ YRS VACCINE Unknown Completed [facility] TDAP Unknown Completed [facility] Rho (d) Immune Globulin Unknown Completed [facility] Rho (d) Immune Globulin Unknown Completed [facility] Influenza Virus Vaccine Quad IM, Preserv and ABX Free 6 MO-64 YRS (FLUCELVAX) Unknown Completed [facility] SARS-COV-2 COVID-19 VACCINE - (MODERNA) Unknown Completed [facility] SARS-COV-2 COVID-19 MODERNA 12+ YRS VACCINE Unknown Completed [facility] TDAP Unknown Completed [facility] Rho (d) Immune Globulin Unknown Completed [facility] Rho (d) Immune Globulin Unknown Completed [facility] Influenza Virus Vaccine Quad IM, Preserv and ABX Free 6 MO-64 YRS (FLUCELVAX) Unknown Completed [facility] SARS-COV-2 COVID-19 VACCINE - (MODERNA) Unknown Completed [facility] SARS-COV-2 COVID-19 MODERNA 12+ YRS VACCINE Unknown Completed [facility] TDAP Unknown Completed [facility] Rho (d) Immune Globulin Unknown Completed [facility] Rho (d) Immune Globulin Unknown Completed [facility] Influenza Virus Vaccine Quad IM, Preserv and ABX Free 6 MO-64 YRS (FLUCELVAX) Unknown Completed [facility] SARS-COV-2 COVID-19 VACCINE - (MODERNA) Unknown Completed [facility] SARS-COV-2 COVID-19 MODERNA 12+ YRS VACCINE Unknown Completed [facility] TDAP Unknown Completed [facility] Rho (d) Immune Globulin Unknown Completed [facility] Rho (d) Immune Globulin Unknown Completed [facility] Influenza Virus Vaccine Quad IM, Preserv and ABX Free 6 MO-64 YRS (FLUCELVAX) Unknown Completed [facility] SARS-COV-2 COVID-19 VACCINE - (MODERNA) Unknown Completed [facility] SARS-COV-2 COVID-19 MODERNA 12+ YRS VACCINE Unknown Completed [facility] TDAP Unknown Completed [facility] Rho (d) Immune Globulin Unknown Completed [facility] Rho (d) Immune Globulin Unknown Completed [facility] Influenza Virus Vaccine Quad IM, Preserv and ABX Free 6 MO-64 YRS (FLUCELVAX) Unknown Completed [facility] SARS-COV-2 COVID-19 VACCINE - (MODERNA) Unknown Completed [facility] SARS-COV-2 COVID-19 MODERNA 12+ YRS VACCINE Unknown Completed [facility] TDAP Unknown Completed [facility] Rho (d) Immune Globulin Unknown Completed [facility] Rho (d) Immune Globulin Unknown Completed [facility] Influenza Virus Vaccine Quad IM, Preserv and ABX Free 6 MO-64 YRS (FLUCELVAX) Unknown Completed [facility] SARS-COV-2 COVID-19 VACCINE - (MODERNA) Unknown Completed [facility] SARS-COV-2 COVID-19 MODERNA 12+ YRS VACCINE Unknown Completed [facility] TDAP Unknown Completed [facility] Rho (d) Immune Globulin Unknown Completed [facility] Rho (d) Immune Globulin Unknown Completed [facility] Influenza Virus Vaccine Quad IM, Preserv and ABX Free 6 MO-64 YRS (FLUCELVAX) Unknown Completed [facility] SARS-COV-2 COVID-19 VACCINE - (MODERNA) Unknown Completed [facility] SARS-COV-2 COVID-19 MODERNA 12+ YRS VACCINE Unknown Completed [facility] TDAP Unknown Completed [facility] Rho (d) Immune Globulin Unknown Completed [facility] Rho (d) Immune Globulin Unknown Completed [facility] Influenza Virus Vaccine Quad IM, Preserv and ABX Free 6 MO-64 YRS (FLUCELVAX) Unknown Completed [facility] SARS-COV-2 COVID-19 VACCINE - (MODERNA) Unknown Completed [facility] SARS-COV-2 COVID-19 MODERNA 12+ YRS VACCINE Unknown Completed [facility] TDAP Unknown Completed [facility] Rho (d) Immune Globulin Unknown Completed [facility] Rho (d) Immune Globulin Unknown Completed [facility] Influenza Virus Vaccine Quad IM, Preserv and ABX Free 6 MO-64 YRS (FLUCELVAX) Unknown Completed [facility] SARS-COV-2 COVID-19 VACCINE - (MODERNA) Unknown Completed [facility] SARS-COV-2 COVID-19 MODERNA 12+ YRS VACCINE Unknown Completed [facility] TDAP Unknown Completed [facility] Rho (d) Immune Globulin Unknown Completed [facility] Rho (d) Immune Globulin Unknown Completed [facility] Influenza Virus Vaccine Quad IM, Preserv and ABX Free 6 MO-64 YRS (FLUCELVAX) Unknown Completed [facility] SARS-COV-2 COVID-19 VACCINE - (MODERNA) Unknown Completed [facility] SARS-COV-2 COVID-19 MODERNA 12+ YRS VACCINE Unknown Completed [facility] TDAP Unknown Completed [facility] Rho (d) Immune Globulin Unknown Completed [facility] Rho (d) Immune Globulin Unknown Completed [facility] Influenza Virus Vaccine Quad IM, Preserv and ABX Free 6 MO-64 YRS (FLUCELVAX) Unknown Completed [facility] SARS-COV-2 COVID-19 VACCINE - (MODERNA) Unknown Completed [facility] SARS-COV-2 COVID-19 MODERNA 12+ YRS VACCINE Unknown Completed [facility] TDAP Unknown Completed [facility] Rho (d) Immune Globulin Unknown Completed [facility] Rho (d) Immune Globulin Unknown Completed [facility] Influenza Virus Vaccine Quad IM, Preserv and ABX Free 6 MO-64 YRS (FLUCELVAX) Unknown Completed [facility] SARS-COV-2 COVID-19 VACCINE - (MODERNA) Unknown Completed [facility] SARS-COV-2 COVID-19 MODERNA 12+ YRS VACCINE Unknown Completed [facility] TDAP Unknown Completed [facility] Rho (d) Immune Globulin Unknown Completed [facility] Rho (d) Immune Globulin Unknown Completed [facility] Influenza Virus Vaccine Quad IM, Preserv and ABX Free 6 MO-64 YRS (FLUCELVAX) Unknown Completed [facility] SARS-COV-2 COVID-19 VACCINE - (MODERNA) Unknown Completed [facility] SARS-COV-2 COVID-19 MODERNA 12+ YRS VACCINE Unknown Completed [facility] TDAP Unknown Completed [facility] Rho (d) Immune Globulin Unknown Completed [facility] Rho (d) Immune Globulin Unknown Completed [facility] Influenza Virus Vaccine Quad IM, Preserv and ABX Free 6 MO-64 YRS (FLUCELVAX) Unknown Completed [facility] SARS-COV-2 COVID-19 VACCINE - (MODERNA) Unknown Completed [facility] SARS-COV-2 COVID-19 MODERNA 12+ YRS VACCINE Unknown Completed [facility] TDAP Unknown Completed [facility] Rho (d) Immune Globulin Unknown Completed [facility] Rho (d) Immune Globulin Unknown Completed [facility] Influenza Virus Vaccine Quad IM, Preserv and ABX Free 6 MO-64 YRS (FLUCELVAX) Unknown Completed [facility] SARS-COV-2 COVID-19 VACCINE - (MODERNA) Unknown Completed [facility] SARS-COV-2 COVID-19 MODERNA 12+ YRS VACCINE Unknown Completed [facility] TDAP Unknown Completed [facility] Rho (d) Immune Globulin Unknown Completed [facility] Rho (d) Immune Globulin Unknown Completed [facility] Influenza Virus Vaccine Quad IM, Preserv and ABX Free 6 MO-64 YRS (FLUCELVAX) Unknown Completed [facility] SARS-COV-2 COVID-19 VACCINE - (MODERNA) Unknown Completed [facility] SARS-COV-2 COVID-19 MODERNA 12+ YRS VACCINE Unknown Completed [facility] TDAP Unknown Completed [facility] Rho (d) Immune Globulin Unknown Completed [facility] Rho (d) Immune Globulin Unknown Completed [facility] Influenza Virus Vaccine Quad IM, Preserv and ABX Free 6 MO-64 YRS (FLUCELVAX) Unknown Completed [facility] SARS-COV-2 COVID-19 VACCINE - (MODERNA) [facility] MODERNA 12+ YRS VACCINE Unknown Completed [facility] TDAP Unknown Completed [facility] Rho (d) Immune Globulin Unknown Completed [facility] Rho (d) Immune Globulin Unknown Completed [facility] Influenza Virus Vaccine Quad IM, Preserv and ABX Free 6 MO-64 YRS (FLUCELVAX) Unknown Completed [facility] SARS-COV-2 COVID-19 VACCINE - (MODERNA) Unknown Completed [facility] SARS-COV-2 COVID-19 MODERNA 12+ YRS VACCINE Unknown Completed [facility] TDAP Unknown Completed [facility] Rho (d) Immune Globulin Unknown Completed [facility] Rho (d) Immune Globulin Unknown Completed [facility] Influenza Virus Vaccine Quad IM, Preserv and ABX Free 6 MO-64 YRS (FLUCELVAX) Unknown Completed [facility] SARS-COV-2 COVID-19 VACCINE - (MODERNA) Unknown Completed [facility] SARS-COV-2 COVID-19 MODERNA 12+ YRS VACCINE Unknown Completed [facility] TDAP Unknown Completed [facility] Rho (d) Immune Globulin Unknown Completed [facility] Rho (d) Immune Globulin Unknown Completed [facility] Influenza Virus Vaccine Quad IM, Preserv and ABX Free 6 MO-64 YRS (FLUCELVAX) Unknown Completed [facility] SARS-COV-2 COVID-19 VACCINE - (MODERNA) Unknown Completed [facility] SARS-COV-2 COVID-19 MODERNA 12+ YRS VACCINE Unknown Completed [facility] TDAP Unknown Completed [facility] Rho (d) Immune Globulin Unknown Completed [facility] Rho (d) Immune Globulin Unknown Completed [facility] Influenza Virus Vaccine Quad IM, Preserv and ABX Free 6 MO-64 YRS (FLUCELVAX) Unknown Completed [facility] SARS-COV-2 COVID-19 VACCINE - (MODERNA) Unknown Completed [facility] SARS-COV-2 COVID-19 MODERNA 12+ YRS VACCINE Unknown Completed [facility] TDAP Unknown Completed [facility] Rho (d) Immune Globulin Unknown Completed [facility] Rho (d) Immune Globulin Unknown Completed [facility] Influenza Virus Vaccine Quad IM, Preserv and ABX Free 6 MO-64 YRS (FLUCELVAX) Unknown Completed [facility] SARS-COV-2 COVID-19 VACCINE - (MODERNA) Unknown Completed [facility] SARS-COV-2 COVID-19 MODERNA 12+ YRS VACCINE Unknown Completed [facility] TDAP Unknown Completed [facility] Rho (d) Immune Globulin Unknown Completed [facility] Rho (d) Immune Globulin Unknown Completed [facility] Influenza Virus Vaccine Quad IM, Preserv and ABX Free 6 MO-64 YRS (FLUCELVAX) Unknown Completed [facility] SARS-COV-2 COVID-19 VACCINE - (MODERNA) Unknown Completed [facility] SARS-COV-2 COVID-19 MODERNA 12+ YRS VACCINE Unknown Completed [facility] TDAP Unknown Completed [facility] Rho (d) Immune Globulin Unknown Completed [facility] Rho (d) Immune Globulin Unknown Completed [facility] Influenza Virus Vaccine Quad IM, Preserv and ABX Free 6 MO-64 YRS (FLUCELVAX) Unknown Completed [facility] SARS-COV-2 COVID-19 VACCINE - (MODERNA) Unknown Completed [facility] SARS-COV-2 COVID-19 MODERNA 12+ YRS VACCINE Unknown Completed [facility] TDAP Unknown Completed [facility] Rho (d) Immune Globulin Unknown Completed [facility] Rho (d) Immune Globulin Unknown Completed [facility] Influenza Virus Vaccine Quad IM, Preserv and ABX Free 6 MO-64 YRS (FLUCELVAX) Unknown Completed [facility] SARS-COV-2 COVID-19 VACCINE - (MODERNA) Unknown Completed [facility] SARS-COV-2 COVID-19 MODERNA 12+ YRS VACCINE Unknown Completed [facility] TDAP Unknown Completed [facility] Rho (d) Immune Globulin Unknown Completed [facility] Rho (d) Immune Globulin Unknown Completed [facility] Influenza Virus Vaccine Quad IM, Preserv and ABX Free 6 MO-64 YRS (FLUCELVAX) Unknown Completed [facility] SARS-COV-2 COVID-19 VACCINE - (MODERNA) Unknown Completed [facility] SARS-COV-2 COVID-19 MODERNA 12+ YRS VACCINE Unknown Completed [facility] TDAP Unknown Completed [facility] Rho (d) Immune Globulin Unknown Completed [facility] Rho (d) Immune Globulin Unknown Completed [facility] Influenza Virus Vaccine Quad IM, Preserv and ABX Free 6 MO-64 YRS (FLUCELVAX) Unknown Completed [facility] SARS-COV-2 COVID-19 VACCINE - (MODERNA) Unknown Completed [facility] SARS-COV-2 COVID-19 MODERNA 12+ YRS VACCINE Unknown Completed [facility] TDAP Unknown Completed [facility] Rho (d) Immune Globulin Unknown Completed [facility] Rho (d) Immune Globulin Unknown Completed [facility] Influenza Virus Vaccine Quad IM, Preserv and ABX Free 6 MO-64 YRS (FLUCELVAX) Unknown Completed [facility] SARS-COV-2 COVID-19 VACCINE - (MODERNA) Unknown Completed [facility] SARS-COV-2 COVID-19 MODERNA 12+ YRS VACCINE Unknown Completed [facility] TDAP Unknown Completed [facility] Rho (d) Immune Globulin Unknown Completed [facility] Rho (d) Immune Globulin Unknown Completed [facility] Influenza Virus Vaccine Quad IM, Preserv and ABX Free 6 MO-64 YRS (FLUCELVAX) Unknown Completed [facility] SARS-COV-2 COVID-19 VACCINE - (MODERNA) Unknown Completed [facility] SARS-COV-2 COVID-19 MODERNA 12+ YRS VACCINE Unknown Completed [facility] TDAP Unknown Completed [facility] Rho (d) Immune Globulin Unknown Completed [facility] Rho (d) Immune Globulin Unknown Completed [facility] Influenza Virus Vaccine Quad IM, Preserv and ABX Free 6 MO-64 YRS (FLUCELVAX) Unknown Completed [facility] SARS-COV-2 COVID-19 VACCINE - (MODERNA) Unknown Completed [facility] SARS-COV-2 COVID-19 MODERNA 12+ YRS VACCINE Unknown Completed [facility] TDAP Unknown Completed [facility] Rho (d) Immune Globulin Unknown Completed [facility] Rho (d) Immune Globulin Unknown Completed [facility] Influenza Virus Vaccine Quad IM, Preserv and ABX Free 6 MO-64 YRS (FLUCELVAX) Unknown Completed [facility] SARS-COV-2 COVID-19 VACCINE - (MODERNA) Unknown Completed [facility] SARS-COV-2 COVID-19 MODERNA 12+ YRS VACCINE Unknown Completed [facility] TDAP Unknown Completed [facility] Rho (d) Immune Globulin Unknown Completed [facility] Rho (d) Immune Globulin Unknown Completed [facility] Influenza Virus Vaccine Quad IM, Preserv and ABX Free 6 MO-64 YRS (FLUCELVAX) Unknown Completed [facility] SARS-COV-2 COVID-19 VACCINE - (MODERNA) Unknown Completed [facility] PPD (TB) Unknown Completed [facility] SARS-COV-2 COVID-19 MODERNA 12+ YRS VACCINE Unknown Completed [facility] TDAP Unknown Completed [facility] Rho (d) Immune Globulin Unknown Completed [facility] Rho (d) Immune Globulin Unknown Completed [facility] Influenza Virus Vaccine Quad IM, Preserv and ABX Free 6 MO-64 YRS (FLUCELVAX) Unknown Completed [facility] SARS-COV-2 COVID-19 VACCINE - (MODERNA) Unknown Completed [facility] PPD (TB) Unknown Completed [facility] SARS-COV-2 COVID-19 MODERNA 12+ YRS VACCINE Unknown Completed [facility] TDAP Unknown Completed [facility] Rho (d) Immune Globulin Unknown Completed [facility] Rho (d) Immune Globulin Unknown Completed [facility] Influenza Virus Vaccine Quad IM, Preserv and ABX Free 6 MO-64 YRS (FLUCELVAX) Unknown Completed [facility] SARS-COV-2 COVID-19 VACCINE - (MODERNA) Unknown Completed [facility] PPD (TB) Unknown Completed [facility] SARS-COV-2 COVID-19 MODERNA 12+ YRS VACCINE Unknown Completed [facility] TDAP Unknown Completed [facility] Rho (d) Immune Globulin Unknown Completed [facility] Rho (d) Immune Globulin Unknown Completed [facility] Influenza Virus Vaccine Quad IM, Preserv and ABX Free 6 MO-64 YRS (FLUCELVAX) Unknown Completed [facility] SARS-COV-2 COVID-19 VACCINE - (MODERNA) Unknown Completed [facility] PPD (TB) Unknown Completed [facility] SARS-COV-2 COVID-19 MODERNA 12+ YRS VACCINE Unknown Completed [facility] TDAP Unknown Completed [facility] Rho (d) Immune Globulin Unknown Completed [facility] Rho (d) Immune Globulin Unknown Completed [facility] Influenza Virus Vaccine Quad IM, Preserv and ABX Free 6 MO-64 YRS (FLUCELVAX) Unknown Completed [facility] SARS-COV-2 COVID-19 VACCINE - (MODERNA) Unknown Completed [facility] PPD (TB) Unknown Completed [facility] SARS-COV-2 COVID-19 MODERNA 12+ YRS VACCINE Unknown Completed [facility] TDAP Unknown Completed [facility] Rho (d) Immune Globulin Unknown Completed [facility] Rho (d) Immune Globulin Unknown Completed [facility] Influenza Virus Vaccine Quad IM, Preserv and ABX Free 6 MO-64 YRS (FLUCELVAX) Unknown Completed [facility] SARS-COV-2 COVID-19 VACCINE - (MODERNA) Unknown Completed [facility] PPD (TB) Unknown Completed [facility] SARS-COV-2 COVID-19 MODERNA 12+ YRS VACCINE Unknown Completed [facility] TDAP Unknown Completed [facility] Rho (d) Immune Globulin Unknown Completed [facility] Rho (d) Immune Globulin Unknown Completed [facility] Influenza Virus Vaccine Quad IM, Preserv and ABX Free 6 MO-64 YRS (FLUCELVAX) Unknown Completed [facility] SARS-COV-2 COVID-19 VACCINE - (MODERNA) Unknown Completed [facility] SARS-COV-2 COVID-19 MODERNA 12+ YRS VACCINE Unknown Completed [facility] TDAP Unknown Completed [facility] Rho (d) Immune Globulin Unknown Completed [facility] Rho (d) Immune Globulin Unknown Completed [facility] Influenza Virus Vaccine Quad IM, Preserv and ABX Free 6 MO-64 YRS (FLUCELVAX) Unknown Completed [facility] SARS-COV-2 COVID-19 VACCINE - (MODERNA) Unknown Completed [facility] PPD (TB) Unknown Completed [facility] SARS-COV-2 COVID-19 MODERNA 12+ YRS VACCINE Unknown Completed [facility] TDAP Unknown Completed [facility] Rho (d) Immune Globulin Unknown Completed [facility] Rho (d) Immune Globulin Unknown Completed [facility] Influenza Virus Vaccine Quad IM, Preserv and ABX Free 6 MO-64 YRS (FLUCELVAX) Unknown Completed [facility] SARS-COV-2 COVID-19 VACCINE - (MODERNA) Unknown Completed [facility] PPD (TB) Unknown Completed [facility] SARS-COV-2 COVID-19 MODERNA 12+ YRS VACCINE Unknown Completed [facility] TDAP Unknown Completed [facility] Rho (d) Immune Globulin Unknown Completed [facility] Rho (d) Immune Globulin Unknown Completed [facility] Influenza Virus Vaccine Quad IM, Preserv and ABX Free 6 MO-64 YRS (FLUCELVAX) Unknown Completed [facility] SARS-COV-2 COVID-19 VACCINE - (MODERNA) Unknown Completed [facility] PPD (TB) Unknown Completed [facility] SARS-COV-2 COVID-19 MODERNA 12+ YRS VACCINE Unknown Completed [facility] TDAP Unknown Completed [facility] Rho (d) Immune Globulin Unknown Completed [facility] Rho (d) Immune Globulin Unknown Completed [facility] Influenza Virus Vaccine Quad IM, Preserv and ABX Free 6 MO-64 YRS (FLUCELVAX) Unknown Completed [facility] SARS-COV-2 COVID-19 VACCINE - (MODERNA) Unknown Completed [facility] PPD (TB) Unknown Completed [facility] SARS-COV-2 COVID-19 MODERNA 12+ YRS VACCINE Unknown Completed [facility] TDAP Unknown Completed [facility] Rho (d) Immune Globulin Unknown Completed [facility] Rho (d) Immune Globulin Unknown Completed [facility] Influenza Virus Vaccine Quad IM, Preserv and ABX Free 6 MO-64 YRS (FLUCELVAX) Unknown Completed [facility] SARS-COV-2 COVID-19 VACCINE - (MODERNA) Unknown Completed [facility] SARS-COV-2 COVID-19 MODERNA 12+ YRS VACCINE Unknown Completed [facility] TDAP Unknown Completed [facility] Rho (d) Immune Globulin Unknown Completed [facility] Rho (d) Immune Globulin Unknown Completed [facility] Influenza Virus Vaccine Quad IM, Preserv and ABX Free 6 MO-64 YRS (FLUCELVAX) Unknown Completed [facility] SARS-COV-2 COVID-19 VACCINE - (MODERNA) Unknown Completed [facility] PPD (TB) Unknown Completed [facility] SARS-COV-2 COVID-19 MODERNA 12+ YRS VACCINE Unknown Completed [facility] TDAP Unknown Completed [facility] Rho (d) Immune Globulin Unknown Completed [facility] Rho (d) Immune Globulin Unknown Completed [facility] Influenza Virus Vaccine Quad IM, Preserv and ABX Free 6 MO-64 YRS (FLUCELVAX) Unknown Completed [facility] SARS-COV-2 COVID-19 VACCINE - (MODERNA) Unknown Completed [facility] PPD (TB) Unknown Completed [facility] SARS-COV-2 COVID-19 MODERNA 12+ YRS VACCINE Unknown Completed [facility] TDAP Unknown Completed [facility] Rho (d) Immune Globulin Unknown Completed [facility] Rho (d) Immune Globulin Unknown Completed [facility] Influenza Virus Vaccine Quad IM, Preserv and ABX Free 6 MO-64 YRS (FLUCELVAX) Unknown Completed [facility] SARS-COV-2 COVID-19 VACCINE - (MODERNA) Unknown Completed [facility] PPD (TB) Unknown Completed [facility] SARS-COV-2 COVID-19 MODERNA 12+ YRS VACCINE Unknown Completed [facility] TDAP Unknown Completed [facility] Rho (d) Immune Globulin Unknown Completed [facility] Rho (d) Immune Globulin Unknown Completed [facility] Influenza Virus Vaccine Quad IM, Preserv and ABX Free 6 MO-64 YRS (FLUCELVAX) Unknown Completed [facility] SARS-COV-2 COVID-19 VACCINE - (MODERNA) Unknown Completed [facility] PPD (TB) Unknown Completed [facility] SARS-COV-2 COVID-19 MODERNA 12+ YRS VACCINE Unknown Completed [facility] TDAP Unknown Completed [facility] Rho (d) Immune Globulin Unknown Completed [facility] Rho (d) Immune Globulin Unknown Completed [facility] Influenza Virus Vaccine Quad IM, Preserv and ABX Free 6 MO-64 YRS (FLUCELVAX) Unknown Completed [facility] SARS-COV-2 COVID-19 VACCINE - (MODERNA) Unknown Completed [facility] PPD (TB) Unknown Completed [facility] SARS-COV-2 COVID-19 MODERNA 12+ YRS VACCINE Unknown Completed [facility] TDAP Unknown Completed [facility] Rho (d) Immune Globulin Unknown Completed [facility] Rho (d) Immune Globulin Unknown Completed [facility] Influenza Virus Vaccine Quad IM, Preserv and ABX Free 6 MO-64 YRS (FLUCELVAX) Unknown Completed [facility] SARS-COV-2 COVID-19 VACCINE - (MODERNA) Unknown Completed [facility] PPD (TB) Unknown Completed [facility] Vital Signs Vital Name Observation Time Observation Value Comments S noe Systolic blood pressure 2024-02-15 15:26:00 139 mm[Hg] [facility] Diastolic blood pressure 2024-02-15 15:26:00 86 mm[Hg] [facility] Heart rate 2024-02-15 15:26:00 97 /min [facility] Body temperature 2024-02-15 15:26:00 36.39 Malou [facility] Respiratory rate 2024-02-15 15:26:00 17 /min [facility] Body height 2024-02-15 15:26:00 157.5 cm [facility] Body weight 2024-02-15 15:26:00 86.365 kg [facility] BMI 2024-02-15 15:26:00 34.82 kg/m2 [facility] Systolic blood pressure 2024-02-10 13:39:00 119 mm[Hg] [facility] Diastolic blood pressure 2024-02-10 13:39:00 80 mm[Hg] [facility] Heart rate 2024-02-10 13:39:00 106 /min [facility] Body temperature 2024-02-10 13:39:00 35.67 Malou [facility] Respiratory rate 2024-02-10 13:39:00 18 /min [facility] Body height 2024-02-10 13:39:00 157.5 cm [facility] Body weight 2024-02-10 13:39:00 88.179 kg [facility] BMI 2024-02-10 13:39:00 35.56 kg/m2 [facility] Systolic blood pressure 2024-01-29 15:08:00 115 mm[Hg] [facility] Diastolic blood pressure 2024-01-29 15:08:00 79 mm[Hg] [facility] Heart rate 2024-01-29 15:08:00 95 /min [facility] Body temperature 2024-01-29 15:08:00 36.67 Malou [facility] Respiratory rate 2024-01-29 15:08:00 18 /min [facility] Body weight 2024-01-29 15:08:00 86.183 kg [facility] BMI 2024-01-29 15:08:00 34.75 kg/m2 [facility] Oxygen saturation in Arterial blood by Pulse oximetry 2024-01-29 15:08:00 96 /min [facility] Systolic blood pressure 2024-01-14 17:22:00 126 mm[Hg] [facility] Diastolic blood pressure 2024-01-14 17:22:00 84 mm[Hg] [facility] Heart rate 2024-01-14 17:22:00 93 /min [facility] Body temperature 2024-01-14 17:22:00 36.83 Malou [facility] Respiratory rate 2024-01-14 17:22:00 17 /min [facility] Body weight 2024-01-14 17:22:00 85.639 kg [facility] BMI 2024-01-14 17:22:00 34.53 kg/m2 [facility] Oxygen saturation in Arterial blood by Pulse oximetry 2024-01-14 17:22:00 98 /min [facility] Systolic blood pressure 2023-12-21 20:01:00 126 mm[Hg] [facility] Diastolic blood pressure 2023-12-21 20:01:00 85 mm[Hg] [facility] Heart rate 2023-12-21 20:01:00 88 /min [facility] Body height 2023-12-21 20:01:00 157.5 cm [facility] Body weight 2023-12-21 20:01:00 85.276 kg [facility] BMI 2023-12-21 20:01:00 34.39 kg/m2 [facility] Oxygen saturation in Arterial blood by Pulse oximetry 2023-12-21 20:01:00 99 /min [facility] Systolic blood pressure 2023-12-09 19:10:00 125 mm[Hg] [facility] Diastolic blood pressure 2023-12-09 19:10:00 84 mm[Hg] [facility] Heart rate 2023-12-09 19:10:00 91 /min [facility] Respiratory rate 2023-12-09 19:10:00 20 /min [facility] Oxygen saturation in Arterial blood by Pulse oximetry 2023-12-09 19:10:00 100 /min [facility] Body temperature 2023-12-09 18:40:00 35.94 Malou [facility] Body height 2023-12-09 17:59:00 157.5 cm [facility] [facility] 2023-12-09 17:59:00 83.4 kg [facility] BMI 2023-12-09 17:59:00 33.63 kg/m2 [facility] Systolic blood pressure 2023-12-09 18:55:00 127 mm[Hg] [facility] Diastolic blood pressure 2023-12-09 18:55:00 88 mm[Hg] [facility] Heart rate 2023-12-09 18:55:00 103 /min [facility] Respiratory rate 2023-12-09 18:55:00 14 /min [facility] Oxygen saturation in Arterial blood by Pulse oximetry 2023-12-09 18:55:00 100 /min [facility] Body temperature 2023-12-09 18:40:00 35.94 Malou [facility] Body height 2023-12-09 17:59:00 157.5 cm [facility] Body weight 2023-12-09 17:59:00 83.4 kg [facility] BMI 2023-12-09 17:59:00 33.63 kg/m2 [facility] Systolic blood pressure 2023-12-03 19:57:00 122 mm[Hg] [facility] Diastolic blood pressure 2023-12-03 19:57:00 80 mm[Hg] [facility] Heart rate 2023-12-03 19:57:00 97 /min [facility] Body temperature 2023-12-03 19:57:00 35.94 Malou [facility] Respiratory rate 2023-12-03 19:57:00 16 /min [facility] Body weight 2023-12-03 19:57:00 83.553 kg [facility] BMI 2023-12-03 19:57:00 33.69 kg/m2 [facility] Oxygen saturation in Arterial blood by Pulse oximetry 2023-12-03 19:57:00 98 /min [facility] Systolic blood pressure 2023-12-01 19:40:00 123 mm[Hg] [facility] Diastolic blood pressure 2023-12-01 19:40:00 86 mm[Hg] [facility] Heart rate 2023-12-01 19:40:00 92 /min [facility] Body temperature 2023-12-01 19:40:00 36.94 Malou [facility] Respiratory rate 2023-12-01 19:40:00 18 /min [facility] Body height 2023-12-01 19:40:00 157.5 cm [facility] Body weight 2023-12-01 19:40:00 83.87 kg [facility] BMI 2023-12-01 19:40:00 33.82 kg/m2 [facility] Oxygen saturation in Arterial blood by Pulse oximetry 2023-12-01 19:40:00 99 /min [facility] Systolic blood pressure 2023-11-19 18:45:00 117 mm[Hg] [facility] Diastolic blood pressure 2023-11-19 18:45:00 81 mm[Hg] [facility] Heart rate 2023-11-19 18:45:00 97 /min [facility] Body temperature 2023-11-19 18:45:00 36.72 Malou [facility] Respiratory rate 2023-11-19 18:45:00 16 /min [facility] Body weight 2023-11-19 18:45:00 83.689 kg [facility] BMI 2023-11-19 18:45:00 33.75 kg/m2 [facility] Oxygen saturation in Arterial blood by Pulse oximetry 2023-11-19 18:45:00 99 /min [facility] Systolic blood pressure 2023-10-25 15:53:00 129 mm[Hg] [facility] Diastolic blood pressure 2023-10-25 15:53:00 90 mm[Hg] [facility] Heart rate 2023-10-25 15:53:00 111 /min [facility] Body temperature 2023-10-25 15:50:00 35.89 Malou [facility] Respiratory rate 2023-10-25 15:50:00 16 /min [facility] Body height 2023-10-25 15:50:00 157.5 cm [facility] Body weight 2023-10-25 15:50:00 82.509 kg [facility] BMI 2023-10-25 15:50:00 33.27 kg/m2 [facility] Oxygen saturation in Arterial blood by Pulse oximetry 2023-10-25 15:50:00 96 /min [facility] Systolic blood pressure 2023-10-18 18:34:00 124 mm[Hg] [facility] Diastolic blood pressure 2023-10-18 18:34:00 88 mm[Hg] [facility] Heart rate 2023-10-18 18:15:00 103 /min [facility] Body temperature 2023-10-18 18:15:00 36.67 Malou [facility] Respiratory rate 2023-10-18 18:15:00 18 /min [facility] Body height 2023-10-18 18:15:00 157.5 cm [facility] Body weight 2023-10-18 18:15:00 82.6 kg [facility] BMI 2023-10-18 18:15:00 33.31 kg/m2 [facility] Oxygen saturation in Arterial blood by Pulse oximetry 2023-10-18 18:15:00 100 /min [facility] Systolic blood pressure 2023-10-16 20:17:00 130 mm[Hg] [facility] Diastolic blood pressure 2023-10-16 20:17:00 97 mm[Hg] [facility] Heart rate 2023-10-16 20:17:00 88 /min [facility] Body temperature 2023-10-16 20:17:00 37.39 Malou [facility] Respiratory rate 2023-10-16 20:17:00 16 /min [facility] Body height 2023-10-16 20:17:00 157.5 cm [facility] Body weight 2023-10-16 20:17:00 81.647 kg [facility] BMI 2023-10-16 20:17:00 32.92 kg/m2 [facility] Oxygen saturation in Arterial blood by Pulse oximetry 2023-10-16 20:17:00 100 /min [facility] Systolic blood pressure 2023-10-07 14:18:00 125 mm[Hg] [facility] Diastolic blood pressure 2023-10-07 14:18:00 88 mm[Hg] [facility] Heart rate 2023-10-07 14:18:00 100 /min [facility] Body temperature 2023-10-07 14:18:00 35.56 Malou [facility] Respiratory rate 2023-10-07 14:18:00 16 /min [facility] Body height 2023-10-07 14:18:00 157.5 cm [facility] Body weight 2023-10-07 14:18:00 84.142 kg [facility] BMI 2023-10-07 14:18:00 33.93 kg/m2 [facility] Oxygen saturation in Arterial blood by Pulse oximetry 2023-10-07 14:18:00 100 /min [facility] Systolic blood pressure 2023-10-01 19:17:00 122 mm[Hg] [facility] Diastolic blood pressure 2023-10-01 19:17:00 81 mm[Hg] [facility] Heart rate 2023-10-01 19:17:00 94 /min [facility] Body temperature 2023-10-01 19:17:00 36.78 Malou [facility] Body height 2023-10-01 19:17:00 157.5 cm [facility] Body weight 2023-10-01 19:17:00 85.186 kg [facility] BMI 2023-10-01 19:17:00 34.35 kg/m2 [facility] Oxygen saturation in Arterial blood by Pulse oximetry 2023-10-01 19:17:00 100 /min [facility] Systolic blood pressure 2023-09-22 18:42:00 124 mm[Hg] [facility] Diastolic blood pressure 2023-09-22 18:42:00 87 mm[Hg] [facility] Heart rate 2023-09-22 18:42:00 88 /min [facility] Body temperature 2023-09-22 18:42:00 36.72 Malou [facility] Respiratory rate 2023-09-22 18:42:00 16 /min [facility] Body height 2023-09-22 18:42:00 157.5 cm [facility] Body weight 2023-09-22 18:42:00 85.276 kg [facility] BMI 2023-09-22 18:42:00 34.39 kg/m2 [facility] Systolic blood pressure 2023-09-07 20:01:00 118 mm[Hg] [facility] Diastolic blood pressure 2023-09-07 20:01:00 81 mm[Hg] [facility] Heart rate 2023-09-07 20:01:00 93 /min [facility] Body height 2023-09-07 20:01:00 157.5 cm [facility] Body weight 2023-09-07 20:01:00 85.276 kg [facility] BMI 2023-09-07 20:01:00 34.39 kg/m2 [facility] Oxygen saturation in Arterial blood by Pulse oximetry 2023-09-07 20:01:00 97 /min [facility] Systolic blood pressure 2023-09-06 20:05:00 124 mm[Hg] [facility] Diastolic blood pressure 2023-09-06 20:05:00 81 mm[Hg] [facility] Heart rate 2023-09-06 20:02:00 111 /min [facility] Body temperature 2023-09-06 20:02:00 36.44 Malou [facility] Body height 2023-09-06 20:02:00 157.5 cm [facility] Body weight 2023-09-06 20:02:00 85.186 kg [facility] BMI 2023-09-06 20:02:00 34.35 kg/m2 [facility] Oxygen saturation in Arterial blood by Pulse oximetry 2023-09-06 20:02:00 97 /min [facility] Systolic blood pressure 2023-08-14 00:32:00 114 mm[Hg] [facility] Diastolic blood pressure 2023-08-14 00:32:00 79 mm[Hg] [facility] Heart rate 2023-08-14 00:32:00 93 /min [facility] Body temperature 2023-08-14 00:32:00 37.22 Malou [facility] Respiratory rate 2023-08-14 00:32:00 20 /min [facility] Body height 2023-08-14 00:32:00 157.5 cm [facility] Body weight 2023-08-14 00:32:00 84.369 kg [facility] BMI 2023-08-14 00:32:00 34.02 kg/m2 [facility] Oxygen saturation in Arterial blood by Pulse oximetry 2023-08-14 00:32:00 98 /min [facility] Systolic blood pressure 2023-06-25 15:54:00 117 mm[Hg] [facility] Diastolic blood pressure 2023-06-25 15:54:00 85 mm[Hg] [facility] Heart rate 2023-06-25 15:54:00 97 /min [facility] Body temperature 2023-06-25 15:54:00 36.67 Malou [facility] Respiratory rate 2023-06-25 15:54:00 16 /min [facility] Body height 2023-06-25 15:54:00 157.5 cm [facility] Body weight 2023-06-25 15:54:00 85.231 kg [facility] BMI 2023-06-25 15:54:00 34.37 kg/m2 [facility] Oxygen saturation in Arterial blood by Pulse oximetry 2023-06-25 15:54:00 98 /min [facility] Systolic blood pressure 2023-06-16 19:05:00 133 mm[Hg] [facility] Diastolic blood pressure 2023-06-16 19:05:00 89 mm[Hg] [facility] Heart rate 2023-06-16 19:05:00 103 /min [facility] Body temperature 2023-06-16 19:05:00 36.67 Malou [facility] Respiratory rate 2023-06-16 19:05:00 18 /min [facility] Body height 2023-06-16 19:05:00 157.5 cm [facility] Body weight 2023-06-16 19:05:00 84.369 kg [facility] BMI 2023-06-16 19:05:00 34.02 kg/m2 [facility] Oxygen saturation in Arterial blood by Pulse oximetry 2023-06-16 19:05:00 98 /min [facility] Systolic blood pressure 2023-06-02 21:34:00 128 mm[Hg] [facility] Diastolic blood pressure 2023-06-02 21:34:00 88 mm[Hg] [facility] Heart rate 2023-06-02 21:33:00 104 /min [facility] Body temperature 2023-06-02 21:33:00 36.17 Malou [facility] Respiratory rate 2023-06-02 21:33:00 18 /min [facility] Body height 2023-06-02 21:33:00 157.5 cm [facility] Body weight 2023-06-02 21:33:00 83.961 kg [facility] BMI 2023-06-02 21:33:00 33.86 kg/m2 [facility] Oxygen saturation in Arterial blood by Pulse oximetry 2023-06-02 21:33:00 97 /min [facility] Systolic blood pressure 2023-05-14 15:13:00 135 mm[Hg] [facility] Diastolic blood pressure 2023-05-14 15:13:00 89 mm[Hg] [facility] Heart rate 2023-05-14 15:06:00 98 /min [facility] Body height 2023-05-14 15:06:00 157.5 cm [facility] Body weight 2023-05-14 15:06:00 84.006 kg [facility] BMI 2023-05-14 15:06:00 33.87 kg/m2 [facility] Systolic blood pressure 2023-05-12 16:01:00 141 mm[Hg] [facility] Diastolic blood pressure 2023-05-12 16:01:00 99 mm[Hg] [facility] Heart rate 2023-05-12 16:00:00 101 /min [facility] Body temperature 2023-05-12 16:00:00 36.72 Malou [facility] Respiratory rate 2023-05-12 16:00:00 18 /min [facility] Body height 2023-05-12 16:00:00 157.5 cm [facility] Body weight 2023-05-12 16:00:00 83.144 kg [facility] BMI 2023-05-12 16:00:00 33.53 kg/m2 [facility] Oxygen saturation in Arterial blood by Pulse oximetry 2023-05-12 16:00:00 99 /min [facility] Systolic blood pressure 2023-01-26 20:53:00 124 mm[Hg] [facility] Diastolic blood pressure 2023-01-26 20:53:00 83 mm[Hg] [facility] Heart rate 2023-01-26 20:53:00 97 /min [facility] Body temperature 2023-01-26 20:53:00 36.89 Malou [facility] Respiratory rate 2023-01-26 20:53:00 18 /min [facility] Body height 2023-01-26 20:53:00 157.5 cm [facility] Body weight 2023-01-26 20:53:00 81.194 kg [facility] BMI 2023-01-26 20:53:00 32.74 kg/m2 [facility] Systolic blood pressure 2023-01-11 15:18:00 129 mm[Hg] [facility] Diastolic blood pressure 2023-01-11 15:18:00 87 mm[Hg] [facility] Heart rate 2023-01-11 15:18:00 85 /min [facility] Body temperature 2023-01-11 15:18:00 36.61 Malou [facility] Respiratory rate 2023-01-11 15:18:00 18 /min [facility] Body height 2023-01-11 15:18:00 157.5 cm [facility] Body weight 2023-01-11 15:18:00 80.377 kg [facility] BMI 2023-01-11 15:18:00 32.41 kg/m2 [facility] Systolic blood pressure 2022-12-31 18:11:00 130 mm[Hg] [facility] Diastolic blood pressure 2022-12-31 18:11:00 87 mm[Hg] [facility] Heart rate 2022-12-31 18:11:00 89 /min [facility] Body temperature 2022-12-31 18:11:00 36.89 Malou [facility] Body weight 2022-12-31 18:11:00 80.559 kg [facility] BMI 2022-12-31 18:11:00 32.48 kg/m2 [facility] Systolic blood pressure 2022-12-10 17:05:00 131 mm[Hg] pt from [facility] Diastolic blood pressure 2022-12-10 17:05:00 92 mm[Hg] pt from [facility] Body temperature 2022-12-10 17:04:00 37.11 Malou [facility] Respiratory rate 2022-12-10 17:04:00 17 /min [facility] Heart rate 2022-12-10 12:15:00 82 /min [facility] Oxygen saturation in Arterial blood by Pulse oximetry 2022-12-10 12:15:00 100 /min [facility] Body weight 2022-12-09 14:19:00 89.812 kg [facility] BMI 2022-12-09 14:19:00 36.21 kg/m2 [facility] Systolic blood pressure 2022-12-08 18:30:00 123 mm[Hg] [facility] Diastolic blood pressure 2022-12-08 18:30:00 81 mm[Hg] [facility] Heart rate 2022-12-08 18:30:00 97 /min [facility] Body temperature 2022-12-08 18:30:00 36.56 Malou [facility] Respiratory rate 2022-12-08 18:30:00 18 /min [facility] Body height 2022-12-08 18:30:00 157.5 cm [facility] Body weight 2022-12-08 18:30:00 89.903 kg [facility] BMI 2022-12-08 18:30:00 36.25 kg/m2 [facility] Oxygen saturation in Arterial blood by Pulse oximetry 2022-12-08 18:30:00 99 /min [facility] Heart rate 2022-12-03 23:43:00 100 /min [facility] Oxygen saturation in Arterial blood by Pulse oximetry 2022-12-03 23:43:00 98 /min [facility] Systolic blood pressure 2022-12-03 23:15:00 130 mm[Hg] [facility] Diastolic blood pressure 2022-12-03 23:15:00 87 mm[Hg] [facility] Body temperature 2022-12-03 23:15:00 36.5 Malou [facility] Respiratory rate 2022-12-03 23:15:00 18 /min [facility] Body weight 2022-12-03 22:49:00 90.719 kg [facility] BMI 2022-12-03 22:49:00 36.58 kg/m2 [facility] Systolic blood pressure 2022-12-01 18:19:00 122 mm[Hg] [facility] Diastolic blood pressure 2022-12-01 18:19:00 87 mm[Hg] [facility] Heart rate 2022-12-01 18:19:00 113 /min [facility] Body temperature 2022-12-01 18:19:00 37 Malou [facility] Respiratory rate 2022-12-01 18:19:00 18 /min [facility] Body height 2022-12-01 18:19:00 157.5 cm [facility] Body weight 2022-12-01 18:19:00 90.084 kg [facility] BMI 2022-12-01 18:19:00 36.32 kg/m2 [facility] Heart rate 2022-11-25 21:00:00 102 /min [facility] Oxygen saturation in Arterial blood by Pulse oximetry 2022-11-25 21:00:00 99 /min [facility] Systolic blood pressure 2022-11-25 20:45:00 113 mm[Hg] [facility] Diastolic blood pressure 2022-11-25 20:45:00 61 mm[Hg] [facility] Body temperature 2022-11-25 20:45:00 37 Malou [facility] Respiratory rate 2022-11-25 20:45:00 18 /min [facility] Body height 2022-11-25 16:04:00 157.5 cm [facility] Body weight 2022-11-25 16:04:00 88.451 kg [facility] BMI 2022-11-25 16:04:00 35.67 kg/m2 [facility] Heart rate 2022-11-19 18:41:00 96 /min [facility] Oxygen saturation in Arterial blood by Pulse oximetry 2022-11-19 18:41:00 99 /min [facility] Systolic blood pressure 2022-11-19 17:40:00 102 mm[Hg] [facility] Diastolic blood pressure 2022-11-19 17:40:00 65 mm[Hg] [facility] Body temperature 2022-11-19 17:40:00 36.89 Malou [facility] Respiratory rate 2022-11-19 17:40:00 18 /min [facility] Body height 2022-11-19 17:40:00 157.5 cm [facility] Body weight 2022-11-19 17:40:00 89.359 kg [facility] BMI 2022-11-19 17:40:00 36.03 kg/m2 [facility] Systolic blood pressure 2022-11-17 18:18:00 126 mm[Hg] [facility] Diastolic blood pressure 2022-11-17 18:18:00 84 mm[Hg] [facility] Heart rate 2022-11-17 18:18:00 94 /min [facility] Body temperature 2022-11-17 18:18:00 36.5 Malou [facility] Respiratory rate 2022-11-17 18:18:00 18 /min [facility] Body height 2022-11-17 18:18:00 157.5 cm [facility] Body weight 2022-11-17 18:18:00 87.363 kg [facility] BMI 2022-11-17 18:18:00 35.23 kg/m2 [facility] Oxygen saturation in Arterial blood by Pulse oximetry 2022-11-17 18:18:00 99 /min [facility] Systolic blood pressure 2022-11-03 21:16:00 128 mm[Hg] [facility] Diastolic blood pressure 2022-11-03 21:16:00 86 mm[Hg] [facility] Heart rate 2022-11-03 21:16:00 93 /min [facility] Body temperature 2022-11-03 21:16:00 36.44 Malou [facility] Respiratory rate 2022-11-03 21:16:00 18 /min [facility] Body height 2022-11-03 21:16:00 157.5 cm [facility] Body weight 2022-11-03 21:16:00 88.905 kg [facility] BMI 2022-11-03 21:16:00 35.85 kg/m2 [facility] Systolic blood pressure 2022-11-02 15:44:00 120 mm[Hg] [facility] Diastolic blood pressure 2022-11-02 15:44:00 83 mm[Hg] [facility] Heart rate 2022-11-02 15:44:00 106 /min [facility] Body temperature 2022-11-02 15:44:00 36.78 Malou [facility] Respiratory rate 2022-11-02 15:44:00 18 /min [facility] Body weight 2022-11-02 15:44:00 88.361 kg [facility] BMI 2022-11-02 15:44:00 35.63 kg/m2 [facility] Systolic blood pressure 2022-10-23 18:37:00 130 mm[Hg] [facility] Diastolic blood pressure 2022-10-23 18:37:00 87 mm[Hg] [facility] Heart rate 2022-10-23 18:37:00 97 /min [facility] Body temperature 2022-10-23 18:37:00 36.67 Malou [facility] Respiratory rate 2022-10-23 18:37:00 18 /min [facility] Body weight 2022-10-23 18:37:00 88.905 kg [facility] BMI 2022-10-23 18:37:00 35.85 kg/m2 [facility] Systolic blood pressure 2022-10-22 18:37:00 124 mm[Hg] [facility] Diastolic blood pressure 2022-10-22 18:37:00 85 mm[Hg] [facility] Heart rate 2022-10-22 18:37:00 94 /min [facility] Body temperature 2022-10-22 18:37:00 36.72 Malou [facility] Body height 2022-10-22 18:37:00 157.5 cm [facility] Body weight 2022-10-22 18:37:00 88.089 kg [facility] BMI 2022-10-22 18:37:00 35.52 kg/m2 [facility] Heart rate 2022-10-11 19:15:00 101 /min [facility] Oxygen saturation in Arterial blood by Pulse oximetry 2022-10-11 19:15:00 98 /min [facility] Systolic blood pressure 2022-10-11 19:00:00 123 mm[Hg] [facility] Diastolic blood pressure 2022-10-11 19:00:00 68 mm[Hg] [facility] Body temperature 2022-10-11 19:00:00 36.44 Malou [facility] Respiratory rate 2022-10-11 19:00:00 16 /min [facility] Body height 2022-10-11 18:50:00 157.5 cm [facility] Body weight 2022-10-11 18:50:00 89.359 kg [facility] BMI 2022-10-11 18:50:00 36.03 kg/m2 [facility] Systolic blood pressure 2022-10-09 19:34:00 131 mm[Hg] [facility] Diastolic blood pressure 2022-10-09 19:34:00 84 mm[Hg] [facility] Heart rate 2022-10-09 19:34:00 103 /min [facility] Body temperature 2022-10-09 19:34:00 36.83 Malou [facility] Respiratory rate 2022-10-09 19:34:00 18 /min [facility] Body height 2022-10-09 19:34:00 157.5 cm [facility] Body weight 2022-10-09 19:34:00 88.089 kg [facility] BMI 2022-10-09 19:34:00 35.52 kg/m2 [facility] Systolic blood pressure 2022-09-26 03:30:00 113 mm[Hg] [facility] Diastolic blood pressure 2022-09-26 03:30:00 71 mm[Hg] [facility] Heart rate 2022-09-26 03:30:00 80 /min [facility] Oxygen saturation in Arterial blood by Pulse oximetry 2022-09-26 03:30:00 99 /min [facility] Body temperature 2022-09-26 02:20:00 36.5 Malou [facility] Respiratory rate 2022-09-26 02:20:00 18 /min [facility] Body height 2022-09-26 01:57:00 157.5 cm [facility] Body weight 2022-09-26 01:57:00 90.22 kg [facility] BMI 2022-09-26 01:57:00 36.38 kg/m2 [facility] Heart rate 2022-09-03 04:12:00 85 /min [facility] Oxygen saturation in Arterial blood by Pulse oximetry 2022-09-03 04:12:00 99 /min [facility] Systolic blood pressure 2022-09-03 04:00:00 114 mm[Hg] [facility] Diastolic blood pressure 2022-09-03 04:00:00 73 mm[Hg] [facility] Body temperature 2022-09-03 03:47:00 36.33 Malou [facility] Respiratory rate 2022-09-03 03:47:00 17 /min [facility] Body height 2022-09-03 03:47:00 157.5 cm [facility] Body weight 2022-09-03 03:47:00 88.451 kg [facility] BMI 2022-09-03 03:47:00 35.67 kg/m2 [facility] Systolic blood pressure 2022-02-09 20:41:00 126 mm[Hg] [facility] Diastolic blood pressure 2022-02-09 20:41:00 90 mm[Hg] [facility] Heart rate 2022-02-05 19:35:00 84 /min [facility] Body temperature 2022-02-05 19:35:00 36.5 Malou [facility] Respiratory rate 2022-02-05 19:35:00 18 /min [facility] Body height 2022-02-05 19:35:00 157.5 cm [facility] Body weight 2022-02-05 19:35:00 83.825 kg [facility] BMI 2022-02-05 19:35:00 33.80 kg/m2 [facility] Body Temperature 2019-06-12 18:15:00 98.4 [degF] [facility] Heart Rate 2019-06-12 18:15:00 98 /min [facility] Respiratory rate 2019-06-12 18:15:00 18 /min [facility] BP Systolic 2019-06-12 18:15:00 137 mm[Hg] [facility] BP Diastolic 2019-06-12 18:15:00 71 mm[Hg] [facility] Heart Rate 2019-06-12 15:36:00 118 /min [facility] BP Systolic 2019-06-12 15:36:00 140 mm[Hg] [facility] BP Diastolic 2019-06-12 15:36:00 80 mm[Hg] [employer] BMI (Body Mass Index) 2019-06-12 15:36:00 39.3 kg/m2 [facility] [employer] Weight 2019-06-12 15:26:00 215 [lb_av] [facility] Respiratory rate 2019-01-29 11:35:00 22 /min [employer] Procedures Procedure Date / Time Performed Performing Clinician Source POCT TEST 2024-02-15 15:32:00 Suad Hameed [facility] POCT TEST 2024-02-10 14:44:00 Suad Hameed [facility] POCT SARS-COV-2 ANTIGEN (BIN AX NOW) 2024-01-29 15:19:00 Jacquelyn Finn [facility] POCT SARS-COV-2 ANTIGEN (BIN AX NOW) 2024-01-14 17:24:00 Palak Munguia [facility] EGD (ENDO) 2023-12-09 18:41:27 [facility]23-12-09 18:41:27 Obi-Shailesh [facility] ESOPHAGOGASTRODUODENOSCOPY 2023-12-09 18:04:00 Begum, Darian [facility] POCT TEST 2023-12-09 00:00:00 Honey Holcomb [facility] POCT TEST 2023-12-09 00:00:00 Honey Holcomb [facility] PPD (TB) 2023-12-01 19:49:07 Obi-Shailesh [facility] POCT URINALYSIS 2023-10-18 00:00:00 Obi-Shailesh [facility] POCT GLUCOSE (AUTOMATED) 2023-10-16 22:29:00 Joselo Harlan [facility] X[facility] CHEST 1 VW 2023-10-16 21:12:14 [facility] POCT TEST 2023-10-16 21:01:00 [facility]elo [facility] COMP. METABOLIC PANEL (88993) 2023-10-16 20:53:00 Joselo [facility] CBC WITH DIFF 2023-10-16 20:53:00 Joselo [facility] URINALYSIS 2023-10-16 20:53:00 [place] [facility] POCT GLUCOSE (AUTOMATED) 2023-10-16 20:21:00 Doctor Unassigned, [place] [facility] PAP SMEAR-LIQUID BASED-CP 2023-09-22 19:04:00 Mirian Wall [facility] POCT SARS-COV-2 ANTIGEN (BIN AX NOW) 2023-08-14 00:20:00 Palak Munguia [facility] POCT SARS-COV-2 ANTIGEN (BIN AX NOW) 2023-06-25 16:16:00 Hali Lema [facility] POCT MOLECULAR FLU 2023-06-25 16:02:00 Unknown, Attending [facility] POCT MOLECULAR STREP 2023-06-25 16:00:00 Unknown, Attending [facility] FLU VACC (), 6 MO-6 4 YRS, .5ML, IM, QUAD (FLUCELVAX) 2023-05-12 16:10:37 Liberty Watson [facility] CONSENT FOR CONTRACEPTION 2023-01-26 05:01:00 Doctor Unassigned, [place] [facility] POCT TEST 2023-01-26 00:00:00 Adum, Mirian Greenberg [facility] POCT URINALYSIS W/O SPECIFIC GRAVITY 2023-01-11 15:24:00 Nela Bone [facility] CONSENT FOR CONTRACEPTION 2022-12-31 05:01:00 Doctor Unassigned, [place] [facility] CBC WITH DIFF 2022-12-10 08:59:00 Keven Daniel [facility] HB -MATERNAL HEMORRHAGE SCREEN 2022-12-10 08:59:00 Keven Daniel [facility] VENOUS CORD GAS 2022-12-10 02:33:00 Keven Daniel [facility] PREPARE PACKED RBC 2022-12-09 22:47:42 Adum, Mirian Greenberg [facility] CENTRAL NEURAXIAL BLOCK 2022-12-09 20:55:00 Juan Carlos Arevalo [facility] CBC WITH DIFF 2022-12-09 18:59:00 Adum, Mirian Greenberg [facility] HEPATITIS B SURFACE ANTIGEN 2022-12-09 18:59:00 Adum, Mirian Greenberg [facility] HB ABO GROUPING 2022-12-09 18:59:00 Adum, Mirian Greenberg [facility] RHO (D) IMMUNE GLOBULIN 2022-12-09 18:59:00 Keven Daniel [facility] ADC OR MAGALY ONLY - RPR 2022-12-09 18:59:00 Adum, Mirian Greenberg [facility] HIV 1/2 AG-AB WITH REFLEX 2022-12-09 18:59:00 Adum, Mirian Greenberg [facility] US PELVIS > 14 WEEKS 2022-11-26 4 17:09:56 Adum, Mirian Greenberg [facility] GC & CHLAMYDIA AMPLIFIED ASSAY 2022-11-26 4 16:55:00 Adum, Mirian Dionicio [facility] ADC ONLY - FERN TEST 2022-12-09 16:55:00 Adum, Mirian Greenberg [facility] ASSIGNMENT OF BENEFITS 2022-12-09 14:14:55 Doctor Unassigned, [place] [facility] CONSENT/REFUSAL FOR DIAGNOSI S AND TREATMENT 2022-12-09 14:14:12 Doctor Unassigned, [place] [facility] NON-STRESS TEST 2022-12-09 04:01:38 Adum, Mirian Dionicio [facility] CONSENT/REFUSAL FOR DIAGNOSI S AND TREATMENT 2022-12-03 22:40:05 Doctor Unassigned, [place] [facility] NON-STRESS TEST 2022-12-01 23:40:44 Adum, Mirian Dionicio [facility] POCT URINALYSIS W/O SPECIFIC GRAVITY 2022-12-01 18:21:00 Adum, Mirian Greenberg [facility] URINALYSIS 2022-11-25 17:55:00 Adum, Mirian Dionicio [facility] POCT GLUCOSE (AUTOMATED) 2022-11-25 17:49:00 Adum, Mirian Greenberg [facility] CONSENT/REFUSAL FOR DIAGNOSI S AND TREATMENT 2022-11-25 15:45:52 Doctor Unassigned, [place] [facility] ASSIGNMENT OF BENEFITS 2022-11-25 15:43:30 Doctor Unassigned, [place] [facility] NOTICE OF PRIVACY PRACTICES 2022-11-19 17:08:50 Doctor Unassigned, [place] [facility] CONSENT/REFUSAL FOR DIAGNOSI S AND TREATMENT 2022-11-19 17:08:27 Doctor Unassigned, [place] [facility] POCT URINALYSIS W/O SPECIFIC GRAVITY 2022-11-17 00:00:00 Adum, Mirian Greenberg [facility] ASSIGNMENT OF BENEFITS 2022-11-09 18:26:54 Doctor Unassigned, [place] [facility] POCT URINALYSIS W/O SPECIFIC GRAVITY 2022-11-03 00:00:00 Adum, Mirian Greenberg [facility] EXTERNAL PROVIDER RECORDS 2022-10-29 05:01:00 Doctor Unassigned, [place] [facility] 3 HR GLUCOSE TOLERANCE TEST 2022-10-26 16:14:00 Adum, Mirian Greenberg [facility] 2 HR GLUCOSE TOLERANCE TEST 2022-10-26 15:18:00 Adum, Mirian Greenberg [facility] 1 HR GLUCOSE TOLERANCE TEST 2022-10-26 14:19:00 Adum, Mirian Greenberg [facility] GLUCOSE FASTING 2022-10-26 13:16:00 Adum, Mirian Greenberg [facility] GLYCOSYLATED HEMOGLOBIN (A1C) 2022-10-26 13:16:00 Adum, Mirian Greenberg [facility] 3 HR GLUCOSE TOLERANCE PANEL 2022-10-26 13:16:00 Adum, Mirian Greenberg [facility] TDAP VACCINE, >11 YRS, IM 2022-10-23 18:48:09 Adum, Mirian Greenberg [facility] POCT URINALYSIS W/O SPECIFIC GRAVITY 2022-10-22 18:47:00 Adum, Mirian Greenberg [facility] POCT URINALYSIS W/O SPECIFIC GRAVITY 2022-10-12 00:00:00 Adum, Mirian Greenberg [facility] CONSENT/REFUSAL FOR DIAGNOSI S AND TREATMENT 2022-10-11 18:25:40 Doctor Unassigned, [place] [facility] AUTHORIZATION FOR RELEASE OF PHI 2022-09 05:01:00 Doctor Unassigned, [place] [facility] SGOT (ASPARTATE AMINO TRANSFER) 02:29:00 Adum, Mirian Greenberg [facility] CREATININE 2022-09-26 02:29:00 Adum, Mirian Greenberg [facility] ALANINE AMINO TRANSFERASE(SGPT 1 02:29:00 Adum, Mirian Dionicio [facility] LACTATE DEHYDROGENASE 2022-09-26 02:29:00 Adum, [facility] URIC ACID 2022-09-26 02:29:00 Adum, Mirian Greenberg [facility] CBC WITH DIFF 2022-09-26 02:29:00 Adum, Mirian Greenberg [facility] URINALYSIS 2022-09-26 02:29:00 Adum, Mirian Greenberg [facility] PROTEIN CREAT RATIO URINE RANDOM 2022-09 02:29:00 Adum, Mirian Greenberg [facility] CONSENT/REFUSAL FOR DIAGNOSI S AND TREATMENT 2022-09-26 01:34:01 Doctor Unassigned, [place] [facility] ASSIGNMENT OF BENEFITS 2022-09-26 01:33:46 Doctor Unassigned, [place] [facility] NOTICE OF PRIVACY PRACTICES 2022-09-03 03:15:26 Doctor Unassigned, [place] [facility] CONSENT/REFUSAL FOR DIAGNOSI S AND TREATMENT 2022-09-03 03:03:10 Doctor Unassigned, [place] [facility] GC & CHLAMYDIA AMPLIFIED ASSAY 2022-01-26 1 20:23:00 Fish, [facility] TRICHOMONAS AMPLIFIED ASSAY 2022-02-05 20:23:00 Fish [facility] POCT TEST 2022-02-05 00:00:00 Fish, [facility] POCT URINALYSIS W/O SPECIFIC GRAVITY 2022-02-05 00:00:00 Fish [facility] REFERRAL- REQUEST/RESPONSE 2022-01-22 05:01:00 Doctor Unassigned, [place] [facility] Encounters Start Date/Time End Date/Time Encounter Type Admission Type Attending [facility] Care Facility Care Department Encounter ID Source 2022-12-03 19:06:52 Outpatient X [facility] [id number] [facility] 2024-02-15 10:15:00 2024-02-15 10:49:40 Outpatient R SUAD HAMEED [facility] [id number] [facility] 2024-02-15 10:15:00 2024-02-15 10:49:40 Office Visit Suad Hameed [facility] 1.2.840.114 350.1.13.10 4.2.7.2.686 [id number] [facility] 2024-02-14 00:00:00 2024-02-14 15:28:06 Telephone Suad Hameed [facility] 1.84.114 350.1.13.10 4.2.7.2.686 [id number] [facility] 2024-02-10 08:30:00 2024-02-10 09:05:26 Outpatient R SUAD HAMEED [facility] [id number] [facility] 2024-02-10 08:30:00 2024-02-10 09:05:26 Office Visit Suad Hameed [facility] 1.840.114 350.1.13.10 4.2.7.2.686 [id number] [facility] 2024-02-09 13:30:00 2024-02-09 13:30:00 Outpatient R MIRIAN WALL VIVIAN [facility] [id number] [facility] 2024-02-01 00:00:00 2024-02-01 16:49:24 Patient Secure Msg AngelasharynMirian L [facility] 1.840.114 350.1.13.10 4.2.7.2.686 [id number] [facility] 2024-01-29 10:00:00 2024-01-29 10:29:28 Outpatient R MAGED BROWN [facility] [id number] [facility] 2024-01-29 10:00:00 2024-01-29 10:29:28 Urgent Care Maged Brown Unknown, Attending [facility] 1.840.114 350.1.13.10 4.2.7.2.686 [id number] [facility] 2024-01-14 12:20:00 2024-01-14 12:40:00 Urgent Care Palak Munguia Unknown, Attending [facility] 1.840.114 350.1.13.10 4.2.7.2.686 [id number] [facility] 2024-01-14 12:20:00 2024-01-14 12:20:00 Outpatient R PALAK MUNGUIA [facility] [id number] [facility] 2024-01-05 13:20:00 2024-01-05 13:20:00 Outpatient R OBI-SHAILESH , LIBERTY OBI-SHAILESH , [facility] [id number] [facility] 2023-11-19 00:00:00 2023-12-25 18:20:32 Patient Secure Msg Doctor Unassigned, [place] [facility] 1.840.114 350.1.13.10 4.2.7.2.686 [id number] [facility] 2023-12-23 10:15:00 2023-12-23 10:51:26 Outpatient R OBI-SHAILESH , LIBERTY OBI-SHAILESH , [facility] [id number] [facility] 2023-12-23 10:15:00 2023-12-23 10:30:00 Live In Housekeeper Visit Lab, Ang - Db Obi-Shailesh [facility] 1..840.114 350.1.13.10 4.2.7.2.686 [id number] [facility] 2023-12-22 00:00:00 2023-12-22 16:43:11 Patient Secure Msg Skinnyjeff [facility] 1..840.114 350.1.13.10 4.2.7.2.686 [id number] [facility] 2023-12-21 15:00:00 2023-12-21 16:22:55 Outpatient R ROSI [facility] [id number] [facility] 2023-12-21 15:00:00 2023-12-21 16:22:55 Office Visit Rosi [facility] 1.2840.114 350.1.13.10 4.2.7.2.686 [id number] [facility] 2023-12-21 14:45:00 2023-12-21 15:00:00 Live In Housekeeper Visit Lab, Ang - Db Rosi [facility] 1.284.114 350.1.13.10 4.2.7.2.686 [id number] [facility] 2023-11-11 00:00:00 2023-12-18 18:25:05 Patient Secure Msg Nga Wisdom [facility] 1.0.114 350.1.13.10 4.2.7.2.686 [id number] [facility] 2023-12-14 00:00:00 2023-12-16 08:18:23 Patient Secure Msg [facility] 1.2840.114 350.1.13.10 4.2.7.2.686 [id number] [facility] 2023-12-09 12:34:00 2023-12-09 14:51:00 Outpatient R DARIAN BEGUM [facility] GIE [id number] [facility] 2023-12-09 12:34:00 2023-12-09 14:51:00 Hospital Encounter Darian Begum [facility] 1.2.840.114 350.1.13.10 4.2.7.2.686 [id number] [facility] 2023-12-09 13:30:00 2023-12-09 14:00:00 Surgery Darian Begum [facility] 1.84.114 350.1.13.10 4.2.7.2.686 [id number] [facility] 2023-12-03 15:00:00 2023-12-03 15:20:00 Nurse Visit Nurse, [facility] 1.84.114 350.1.13.10 4.2.7.2.686 [id number] [facility] 2023-12-03 15:00:00 2023-12-03 15:00:00 Outpatient R SASHA GIBSON [facility] [id number] [facility] 2023-12-03 10:00:00 2023-12-03 10:00:00 Outpatient R [facility] [id number] [facility] 2023-12-01 15:40:00 2023-12-01 15:40:00 Office Visit Obi-Shailesh [facility] BUILDING 1.84.114 350.1.13.10 4.2.7.2.686 [id number] [facility] 2023-12-01 15:40:00 2023-12-01 14:56:47 Outpatient R OBI-Caleb CASHZOMA OBI-SHAILESH [facility] [id number] [facility] 2023-11-25 11:30:00 2023-11-25 11:58:27 Outpatient R SOUMYA BAXTER [facility] [id number] [facility] 2023-11-25 11:30:00 2023-11-25 11:58:27 Nurse Visit Visit, [facility] Dermatology Nurse Soumya Baxter [facility] 1..114 350.1.13.10 4.2.7.2.686 [id number] [facility] 2023-11-19 13:40:00 2023-11-19 14:24:48 Outpatient R HUE GUSTAFSON [facility] [id number] [facility] 2023-11-19 13:40:00 2023-11-19 14:00:00 Urgent Care Hue Gustafson Rosalinda Montoya, Attending [facility] 1..114 350.1.13.10 4.2.7.2.686 [id number] [facility] 2023-10-07 00:00:00 2023-11-13 18:10:54 Patient Secure Msg Bola-Liberty Cash [facility] 1..114 350.1.13.10 4.2.7.2.686 [id number] [facility] 2023-11-08 15:00:00 2023-11-08 15:35:09 Outpatient R CHUCK LIU [facility] [id number] [facility] 2023-11-08 15:00:00 2023-11-08 15:35:09 Office Visit Chuck Liu [facility] 1.114 350.1.13.10 4.2.7.2.686 [id number] [facility] 2023-10-04 00:00:00 2023-11-06 18:09:41 Patient Secure Msg Doctor Unassigned, [place] [facility] 1.114 350.1.13.10 4.2.7.2.686 [id number] [facility] 2023-10-04 00:00:00 2023-11-06 18:09:28 Patient Secure Msg Dago Ibarra [facility] 1.2.84.114 350.1.13.10 4.2.7.2.686 [id number] [facility] 2023-10-05 00:00:00 2023-11-06 18:08:36 Patient Secure Msg Doctor Unassigned, [place] [facility] 1.840.114 350.1.13.10 4.2.7.2.686 [id number] [facility] 2023-11-04 14:30:00 2023-11-04 14:43:31 Outpatient R CHUCK LIU [facility] [id number] [facility] 2023-11-04 14:30:00 2023-11-04 14:43:31 Office Visit Nga Wisdom [facility] 1.840.114 350.1.13.10 4.2.7.2.686 [id number] [facility] 2023-11-04 13:00:00 2023-11-04 13:15:00 Live In Housekeeper Visit 2, Adc Lab Bola-Liberty Cash [facility] 1..840.114 350.1.13.10 4.2.7.2.686 [id number] [facility] 2023-11-01 10:00:00 2023-11-01 10:00:00 Outpatient R [facility] [id number] [facility] 2023-10-26 00:00:00 2023-10-26 00:00:00 Telephone Glory [facility] 1..114 350.1.13.10 4.2.7.2.686 [id number] [facility] 2023-10-25 11:30:00 2023-10-25 11:45:00 Live In Housekeeper Visit [facility] 1.2.840.114 350.1.13.10 4.2.7.2.686 [id number] [facility] 2023-10-25 11:30:00 2023-10-25 11:30:00 Outpatient R CHUCHO PENNINGTON [facility] [id number] [facility] 2023-10-25 11:00:00 2023-10-25 11:30:00 Office Visit Glory [facility] 1.2.840.114 350.1.13.10 4.2.7.2.686 [id number] [id number] [facility] 2023-10-25 00:00:00 2023-10-25 00:00:00 [facility] 1.2.840.114 350.1.13.10 4.2.7.2.686 [id number] 071 [id number] [facility] 2023-10-25 00:00:00 2023-10-25 00:00:00 Patient Secure Msg [facility] 1.2.840.114 350.1.13.10 4.2.7.2.686 [id number] [facility] 2023-10-20 00:00:00 2023-10-20 00:00:00 Telephone Mane Moore [facility] 1.2.840.114 350.1.13.10 4.2.7.2.686 [id number] 071 [id number] [facility] 2023-10-18 13:00:00 2023-10-18 13:34:24 Outpatient R LIBERTY WATSON UZOMA [facility] [id number] [facility] 2023-10-18 13:00:00 2023-10-18 13:34:24 Office Visit Obi-Shailesh , [facility] PROFESSIO NAL BUILDING 1.2.840.114 350.1.13.10 4.2.7.2.686 [id number] [facility] 2023-10-16 15:23:00 2023-10-16 17:53:00 Emergency X JOSELO, SALMIN JOSELO, [facility] ERT [id number] [facility] 2023-10-16 15:23:00 2023-10-16 17:53:00 Emergency [place], [facility] 1.2.840.114 350.1.13.10 4.2.7.2.686 [id number] [id number] [facility] 2023-10-13 00:00:00 2023-10-13 00:00:00 Refill Shirley [facility] BUILDING 1.2.840.114 350.1.13.10 4.2.7.2.686 [id number] [facility] 2023-10-12 00:00:00 2023-10-12 00:00:00 Letter (Out) [facility] 1.2.840.114 350.1.13.10 4.2.7.2.686 [id number] [facility] 2023-10-12 00:00:00 2023-10-12 00:00:00 Telephone RyderShailesh [facility] BUILDING 1.2.840.114 350.1.13.10 4.2.7.2.686 [id number] 044 [id number] [facility] 2023-10-07 10:00:00 2023-10-07 10:15:00 Live In Housekeeper Visit [facility]a Herrera [facility] 1.2.840.114 350.1.13.10 4.2.7.2.686 [id number] [facility] 2023-10-07 09:00:00 2023-10-07 09:30:00 Office Visit PostMane mejía Joseph Marc [facility] 1.2840.114 350.1.13.10 4.2.7.2.686 [id number] [facility] 2023-10-07 09:00:00 2023-10-07 09:00:00 Outpatient THA GARBER [facility] [id number] [facility] 2023-10-07 00:00:00 2023-10-07 00:00:00 Telephone [facility] 1.2840.114 350.1.13.10 4.2.7.2.686 [id number] [id number] [facility] 2023-10-05 00:00:00 2023-10-05 00:00:00 [facility] 1.2840.114 350.1.13.10 4.2.7.2.686 [id number] [id number] [facility] 2023-10-03 00:00:00 2023-10-03 00:00:00 Patient Secure Msg [facility] 1.2840.114 350.1.13.10 4.2.7.2.686 [id number] [id number] [facility] 2023-10-01 15:15:00 2023-10-01 15:30:00 Live In Housekeeper Visit 2, Adc Lab [facility] 1.2840.114 350.1.13.10 4.2.7.2.686 [id number] [facility] 2023-10-01 14:00:00 2023-10-01 15:10:37 Outpatient R DAGO IBARRA OGECHUKWU [facility] [id number] [facility] 2023-10-01 14:00:00 2023-10-01 14:30:00 Office Visit Dago Ibarra [facility] 1.840.114 350.1.13.10 4.2.7.2.686 [id number] [facility] 2023-09-22 13:30:00 2023-09-22 14:07:04 Outpatient R MIRIAN WALL [facility] [id number] [facility] 2023-09-22 13:30:00 2023-09-22 14:07:04 Office Visit Mirian Wall [facility] 1.84.114 350.1.13.10 4.2.7.2.686 [id number] [facility] 2023-09-19 00:00:00 2023-09-19 00:00:00 Patient Secure Msg Doctor Unassigned, [place] [facility] 1.840.114 350.1.13.10 4.2.7.2.686 [id number] [facility] 2023-09-14 00:00:00 2023-09-14 00:00:00 Refill Obi-Shailesh , [facility] BUILDING 1.840.114 350.1.13.10 4.2.7.2.686 [id number] [id number] [facility] 2023-09-09 00:00:00 2023-09-09 00:00:00 Refill Obi[facility]Shailesh , [facility] 1.2.840.114 350.1.13.10 4.2.7.2.686 [id number] [facility] 2023-09-08 00:00:00 2023-09-08 00:00:00 [facility] 1.2840.114 350.1.13.10 4.2.7.2.686 [id number] [facility] 2023-09-08 00:00:00 2023-09-08 00:00:00 Telephone Rosi [facility] 1.2840.114 350.1.13.10 4.2.7.2.686 [id number] [facility] 2023-09-07 15:00:00 2023-09-07 15:40:26 Outpatient R SKINNYJEFF [facility] [id number] [facility] 2023-09-07 15:00:00 2023-09-07 15:40:26 Office Visit Rosi [facility] 1.2840.114 350.1.13.10 4.2.7.2.686 [id number] [facility] 2023-09-07 00:00:00 2023-09-07 00:00:00 [facility] 1.2840.114 350.1.13.10 4.2.7.2.686 [id number] [facility] 2023-09-07 00:00:00 2023-09-07 00:00:00 [facility] 1.2840.114 350.1.13.10 4.2.7.2.686 [id number] 220 [id number] [facility] 2023-09-07 00:00:00 2023-09-07 00:00:00 Patient Secure Msg Doctor Unassigned, [place] [facility] 1.84.114 350.1.13.10 4.2.7.2.686 [id number] [facility] 2023-09-07 00:00:00 2023-09-07 00:00:00 Telephone Adum, [facility] 1.84.114 350.1.13.10 4.2.7.2.686 [id number] [facility] 2023-09-06 16:15:00 2023-09-06 16:30:00 Live In Housekeeper Visit Lab, Ang - Db Obi-Shailesh [facility] 1.84.114 350.1.13.10 4.2.7.2.686 [id number] [facility] 2023-09-06 16:15:00 2023-09-06 16:15:00 Outpatient R OBI-SHAILESH [facility] OBI-SHAILESH , [facility] [id number] [facility] 2023-09-06 15:00:00 2023-09-06 15:21:14 Office Visit Obi-Shailesh [facility] BUILDING 1.84.114 350.1.13.10 4.2.7.2.686 [id number] [facility] 2023-09-06 00:00:00 2023-09-06 00:00:00 Refill Obi-Shailesh [facility] BUILDING 1.84.114 350.1.13.10 4.2.7.2.686 [id number] [id number] [facility] 2023-09-06 00:00:00 2023-09-06 00:00:00 [facility] 1..840.114 350.1.13.10 4.2.7.2.686 [id number] 220 [id number] [facility] 2023-09-01 13:20:00 2023-09-01 13:20:00 Outpatient R OBI-SHAILESH , LIBERTY OBI-SHAILESH , LIB[facility] [id number] [facility] 2023-08-20 00:00:00 2023-08-20 00:00:00 Refill Rosi [facility] 1..840.114 350.1.13.10 4.2.7.2.686 [id number] 220 [id number] [facility] 2023-08-13 18:20:00 2023-08-13 18:40:00 Urgent Care Hali Lema Unknown, Attending [facility] 1..840.114 350.1.13.10 4.2.7.2.686 [id number] [facility] 2023-08-13 18:20:00 2023-08-13 18:20:00 Outpatient R HALI LEMA [facility] [id number] [facility] 2023-06-25 09:20:00 2023-06-25 10:22:05 Outpatient R CARMELO SHEEHAN [facility] [id number] [facility] 2023-06-25 09:20:00 2023-06-25 10:22:05 Urgent Care Carmelo Sheehan Unknown, Attending [facility] 1..840.114 350.1.13.10 4.2.7.2.686 [id number] [facility] 2023-06-16 13:00:00 2023-06-16 13:26:21 Outpatient R OBI-SHAILESH LIBERTY OBI-SHAILESH , LIBERTY [facility] [id number] [facility] 2023-06-16 13:00:00 2023-06-16 13:26:21 [facility] 1.2.840.114 350.1.13.10 4.2.7.2.686 [id number] 044 [id number] [facility] 2023-06-16 00:00:00 2023-06-16 00:00:00 Telephone [facility] 1.2.840.114 350.1.13.10 4.2.7.2.686 [id number] 044 [id number] [facility] 2023-06-16 00:00:00 2023-06-16 00:00:00 Telephone Shirley [facility] 1.2.840.114 350.1.13.10 4.2.7.2.686 [id number] 044 [id number] [facility] 2023-06-15 09:00:00 2023-06-15 09:00:00 Outpatient R OBI-SHAILESH , LIBERTY OBI-SHAILESH , LIBERTY [facility] [id number] [facility] 2023-06-14 13:00:00 2023-06-14 13:00:00 Outpatient R OBI-SHAILESH , LIBERTY OBI-SHAILESH , LIBERTY [facility] [id number] [facility] 2023-06-02 15:20:00 2023-06-02 15:49:08 Outpatient R OBI-SHAILESH , LIB[facility] [id number] [facility] 2023-06-02 15:20:00 2023-06-02 15:49:08 [facility] 1..840.114 350.1.13.10 4.2.7.2.686 [id number] 044 [id number] [facility] 2023-05-27 11:00:00 2023-05-27 11:00:00 Outpatient R OBI-SHAILESH , LIBERTY OBI-SHAILESH , [facility] [id number] [facility] 2023-05-26 09:20:00 2023-05-26 09:20:00 Outpatient R OBI-SHAILESH , LIBERTY OBI-SHAILESH , [facility] [id number] [facility] 2023-05-15 00:00:00 2023-05-15 00:00:00 Patient Secure Msg Doctor Unassigned, [place] [facility] 1..840.114 350.1.13.10 4.2.7.2.686 [id number] 019 [id number] [facility] 2023-05-14 09:00:00 2023-05-14 10:00:40 Outpatient R SKINNYLizandroCHARLENE ETIENNE [facility] [id number] [facility] 2023-05-14 09:00:00 2023-05-14 10:00:40 Office Visit Charlene Aranda [facility] 1.2.840.114 350.1.13.10 4.2.7.2.686 [id number] [facility] 2023-05-12 11:00:00 2023-05-12 11:15:00 Live In Housekeeper Visit 2, Adc Lab [facility] 1.2.840.114 350.1.13.10 4.2.7.2.686 [id number] [facility] 2023-05-12 10:00:00 2023-05-12 10:47:03 Outpatient R OBI-SHAILESH , LIBERTY [facility] , [facility] [id number] [facility] 2023-05-12 10:00:00 2023-05-12 10:47:03 Office Visit Obi-Shailesh , [facility] 1..840.114 350.1.13.10 4.2.7.2.686 [id number] 044 [id number] [facility] 2023-05-10 08:00:00 2023-05-10 08:00:00 Outpatient R OBI-SHAILESH , LIBERTY OBI-SHAILESH , [facility] [id number] [facility] 2023-03-10 13:30:00 2023-03-10 13:30:00 Outpatient R OLAYINKA CHERRY [facility] [id number] [facility] 2023-02-04 00:00:00 2023-02-04 00:00:00 Patient Secure Msg Mirian Wall [facility] 1.2.840.114 350.1.13.10 4.2.7.2.686 [id number] 134 [id number] [facility] 2023-02-02 00:00:00 2023-02-02 00:00:00 Patient Secure Msg Mirian Wall [facility] 1.2.840.114 350.1.13.10 4.2.7.2.686 [id number] 134 [id number] [facility] 2023-01-26 15:30:00 2023-01-26 16:41:21 Outpatient R MIRIAN WALL [facility] [id number] [facility] 2023-01-26 15:30:00 2023-01-26 16:41:21 Routine Visit Adum, Mirian Greenberg [facility] 1.2.840.114 350.1.13.10 4.2.7.2.686 [id number] 134 [id number] [facility] 2023-01-26 00:00:00 2023-01-26 00:00:00 Orders Only Doctor Unassigned, [place] [facility] 1.2840.114 350.1.13.10 4.2.7.2.686 [id number] 009 [id number] [facility] 2023-01-11 10:00:00 2023-01-11 11:17:26 Outpatient R CORONA-TERRY S, NELA CJ-TERRY S NELA [facility] [id number] [facility] 2023-01-11 10:00:00 2023-01-11 10:30:00 Office Visit Silviano shoemaker Nela [facility] 1..840.114 350.1.13.10 4.2.7.2.686 [id number] 134 [id number] [facility] 2022-12-31 13:00:00 2022-12-31 13:50:06 Outpatient R ADUM, MIRIAN [facility] [id number] [facility] 2022-12-31 13:00:00 2022-12-31 13:50:06 Routine Visit Adum, Mirian Greenberg [facility] 1.2.840.114 350.1.13.10 4.2.7.2.686 [id number] 134 [id number] [facility] 2022-12-31 00:00:00 2022-12-31 00:00:00 Orders Only Doctor Unassigned, [place] [facility] 1.2.840.114 350.1.13.10 4.2.7.2.686 [id number] 009 [id number] [facility] 2022-12-25 14:15:00 2022-12-25 14:15:00 Outpatient P [facility] [id number] [facility] 2022-12-24 00:00:00 2022-12-24 00:00:00 Telephone Mae Mirian [facility] 1.2.840.114 350.1.13.10 4.2.7.2.686 [id number] 134 [id number] [facility] 2022-12-22 13:00:00 2022-12-22 13:00:00 Outpatient R MAE [facility] [id number] [facility] 2022-12-15 13:00:00 2022-12-15 13:00:00 Outpatient R MAE [facility] [id number] [facility] 2022-12-14 00:00:00 2022-12-14 00:00:00 Encounter 1.2.840.1 40522.1.1 3.104.2.7 .2.833029 1.2.840.114 350.1.13.10 4.2.7.2.696 570 [id number] [facility] 2022-12-09 09:22:00 2022-12-10 12:55:00 Hospital Encounter Keven Daniel Cam Mae Mirian [facility] 1.2.840.114 350.1.13.10 4.2.7.2.686 [id number] 083 [id number] [facility] 2022-12-09 09:22:00 2022-12-10 12:55:00 Inpatient X ANGELASHARYN [facility] [id number] [facility] 2022-12-09 15:55:00 2022-12-09 21:22:00 Anesthesia Event Juan Carlos Arevalo [facility] 1.2.840.114 350.1.13.10 4.2.7.2.686 [id number] 083 [id number] [facility] 2022-12-09 00:00:00 2022-12-09 00:00:00 Orders Only Doctor Unassigned, [place] [facility] 1.2.840.114 350.1.13.10 4.2.7.2.686 [id number] 009 [id number] [facility] 2022-12-09 00:00:00 2022-12-09 00:00:00 Telephone Adum, Mirian [facility] 1.2.840.114 350.1.13.10 4.2.7.2.686 [id number] 134 [id number] [facility] 2022-12-08 13:00:00 2022-12-08 14:06:40 Outpatient R ADUM, MIRIAN [facility] [id number] [facility] 2022-12-08 13:00:00 2022-12-08 14:06:40 Routine Visit Room, [facility] Adum, Mirian [facility] 1.2.840.114 350.1.13.10 4.2.7.2.686 [id number] 134 [id number] [facility] 2022-12-03 18:04:00 2022-12-03 19:06:00 Outpatient X ADUM, MIRIAN [facility] [id number] [facility] 2022-12-03 18:04:00 2022-12-03 19:06:00 Emergency Adum, Mirian [facility] 1.2.840.114 350.1.13.10 4.2.7.2.686 [id number] 083 [id number] [facility] 2022-12-02 13:00:00 2022-12-02 14:00:00 Live In Housekeeper Visit 3, [facility] Us Room [facility] 1.840.114 350.1.13.10 4.2.7.2.686 [id number] [facility] 2022-12-02 13:00:00 2022-12-02 13:00:00 Outpatient P YAÑEZ [facility] [id number] [facility] 2022-12-02 00:00:00 2022-12-02 00:00:00 Case Management Timo Corona [facility] 1.840.114 350.1.13.10 4.2.7.2.686 [id number] 134 [id number] [facility] 2022-12-01 13:00:00 2022-12-01 13:53:15 Outpatient R ADSHARYN [facility] [id number] [facility] 2022-12-01 13:00:00 2022-12-01 13:53:15 Routine [facility] AdMirian coles [facility] 1..840.114 350.1.13.10 4.2.7.2.686 [id number] 134 [id number] [facility] 2022-12-01 13:00:00 2022-12-01 13:00:00 Outpatient R ADSHARYN [facility] [id number] [facility] 2022-11-25 10:37:00 2022-11-25 16:55:00 Outpatient P ADUM [facility] [id number] [facility] 2022-11-25 10:37:00 2022-11-25 16:55:00 Hospital Encounter Adsharyn Mirian Dionicio [facility] 1..840.114 350.1.13.10 4.2.7.2.686 [id number] 083 [id number] [facility] 2022-11-25 00:00:00 2022-11-25 00:00:00 Telephone Adum, Mirian [facility] 1.2.840.114 350.1.13.10 4.2.7.2.686 [id number] 134 [id number] [facility] 2022-11-24 10:00:00 2022-11-24 10:00:00 Outpatient R [facility] [id number] [facility] 2022-11-22 00:00:00 2022-11-22 00:00:00 Nurse Triage Florinda Abigail Quinn [facility] 1.2.840.114 350.1.13.10 4.2.7.2.686 [id number] 019 [id number] [facility] 2022-11-19 12:21:00 2022-11-19 13:45:00 Outpatient X ADUM, MIRIAN [facility] [id number] [facility] 2022-11-19 12:21:00 2022-11-19 13:45:00 Emergency AdumMirian [facility] 1.2.840.114 350.1.13.10 4.2.7.2.686 [id number] 083 [id number] [facility] 2022-11-17 13:15:00 2022-11-17 13:42:03 Outpatient R ADUM, MIRIAN [facility] [id number] [facility] 2022-11-17 13:15:00 2022-11-17 13:42:03 Routine Visit AdMirian coles [facility] 1.2.840.114 350.1.13.10 4.2.7.2.686 [id number] 134 [id number] [facility] 2022-11-09 13:27:57 2022-11-09 14:18:09 Outpatient R ADUM, MIRIAN [facility] [id number] [facility] 2022-11-09 13:30:00 2022-11-09 13:45:00 Live In Housekeeper Visit 2, [facility] Lab Adum, Mirian Greenberg [facility] 1.2.840.114 350.1.13.10 4.2.7.2.686 [id number] 353 [id number] [facility] 2022-11-09 00:00:00 2022-11-09 00:00:00 Orders Only Doctor Unassigned, [place] [facility] 1.284.114 350.1.13.10 4.2.7.2.686 [id number] 009 [id number] [facility] 2022-11-09 00:00:00 2022-11-09 00:00:00 Telephone Adum, Mirian Greenberg [facility] 1.284.114 350.1.13.10 4.2.7.2.686 [id number] 134 [id number] [facility] 2022-11-03 16:00:00 2022-11-03 16:43:05 Outpatient R ADUM, MIRIAN [facility] [id number] [facility] 2022-11-03 16:00:00 2022-11-03 16:43:05 Routine Visit Adum, Mirian Greenberg [facility] 1.2.840.114 350.1.13.10 4.2.7.2.686 [id number] 134 [id number] [facility] 2022-11-02 10:00:00 2022-11-02 10:41:26 Outpatient R ADUM, MIRIAN [facility] [id number] [facility] 2022-11-02 10:00:00 2022-11-02 10:41:26 Nurse Visit Nurse, [facility] Adum, Mirian Greenberg [facility] 1.2.840.114 350.1.13.10 4.2.7.2.686 [id number] 134 [id number] [facility] 2022-10-29 00:00:00 2022-10-29 00:00:00 Orders Only Doctor Unassigned, [place] [facility] 1.2.840.114 350.1.13.10 4.2.7.2.686 [id number] 009 [id number] [facility] 2022-10-29 00:00:00 2022-10-29 00:00:00 Telephone Adum, Mirian Greenberg [facility] 1.2.840.114 350.1.13.10 4.2.7.2.686 [id number] 134 [id number] [facility] 2022-10-29 00:00:00 2022-10-29 00:00:00 Telephone Adum, Mirian Greenberg [facility] 1.2.840.114 350.1.13.10 4.2.7.2.686 [id number] 134 [id number] [facility] 2022-10-28 00:00:00 2022-10-28 00:00:00 Telephone Adum, Mirian Greenberg [facility] 1.2.840.114 350.1.13.10 4.2.7.2.686 [id number] 134 [id number] [facility] 2022-10-28 00:00:00 2022-10-28 00:00:00 Case Management Timo Corona [facility] 1.2.840.114 350.1.13.10 4.2.7.2.686 [id number] 134 [id number] [facility] 2022-10-26 08:15:00 2022-10-26 11:25:08 Live In Housekeeper Visit 2, [facility]c Lab Adum, Mirian Greenberg [facility] 1.2.840.114 350.1.13.10 4.2.7.2.686 [id number] 353 [id number] [facility] 2022-10-26 08:15:00 2022-10-26 08:15:00 Outpatient R ADUM, MIRIAN [facility] [id number] [facility] 2022-10-26 00:00:00 2022-10-26 00:00:00 Telephone Adum, Mirian Greenberg [facility] 1.2.840.114 350.1.13.10 4.2.7.2.686 [id number] 044 [id number] [facility] 2022-10-23 14:00:00 2022-10-23 14:15:00 Nurse Visit Nurse, [facility] Adum, Mirian [facility] 1.2.840.114 350.1.13.10 4.2.7.2.686 [id number] 134 [id number] [facility] 2022-10-23 08:45:00 2022-10-23 09:16:08 Outpatient R ADUM, MIRIAN [facility] [id number] [facility] 2022-10-23 08:45:00 2022-10-23 09:00:00 Live In Housekeeper Visit 2, [facility] Adum, Mirian [facility] 1..840.114 350.1.13.10 4.2.7.2.686 [id number] 353 [id number] [facility] 2022-10-22 13:45:00 2022-10-22 14:35:18 Outpatient R ADUM, MIRIAN [facility] [id number] [facility] 2022-10-22 13:45:00 2022-10-22 14:35:18 Routine Visit Adum, Mirian [facility] 1.2.840.114 350.1.13.10 4.2.7.2.686 [id number] 134 [id number] [facility] 2022-10-12 00:00:00 2022-10-12 00:00:00 Telephone Adum, Mirian [facility] 1.2840.114 350.1.13.10 4.2.7.2.686 [id number] 134 [id number] [facility] 2022-10-11 13:33:00 2022-10-11 14:55:00 Outpatient X CORONA-TERRY S, NELA CORONA-TERRY S, NELA [facility] [id number] [facility] 2022-10-11 13:33:00 2022-10-11 14:55:00 Emergency Corona-Terry s, Nela [facility] 1.2840.114 350.1.13.10 4.2.7.2.686 [id number] 083 [id number] [facility] 2022-10-09 14:00:00 2022-10-09 15:41:13 Outpatient R ADMIRIAN COLES [facility] [id number] [facility] 2022-10-09 14:00:00 2022-10-09 15:41:13 Initial Visit Mae Mirian L [facility] 1.2840.114 350.1.13.10 4.2.7.2.686 [id number] 134 [id number] [facility] 2022-10-09 00:00:00 2022-10-09 00:00:00 Orders Only Doctor Unassigned, [place] [facility] 1.2840.114 350.1.13.10 4.2.7.2.686 [id number] 009 [id number] [facility] 2022-09-25 21:02:00 2022-09-25 22:42:00 Outpatient X MIRIAN WALL [facility] [id number] [facility] 2022-09-25 21:02:00 2022-09-25 22:42:00 Emergency AdMirian coles [facility] 1.2840.114 350.1.13.10 4.2.7.2.686 [id number] 083 [id number] [facility] 2022-09-25 00:00:00 2022-09-25 00:00:00 Orders Only Doctor Unassigned, [place] [facility] 1.2.840.114 350.1.13.10 4.2.7.2.686 [id number] 009 [id number] [facility] 2022-09-02 21:12:00 2022-09-02 22:20:00 Outpatient P KEVEN DANIEL [facility] [id number] [facility] 2022-09-02 21:12:00 2022-09-02 22:20:00 Hospital Encounter Keven Daniel [facility] 1.2.840.114 350.1.13.10 4.2.7.2.686 [id number] 083 [id number] [facility] 2022-08-17 00:00:00 2022-08-17 00:00:00 Outpatient GC_SWHATBIC _[facility]_S PRIV PRIV [id number] [facility] 2022-08-14 00:00:00 2022-08-14 00:00:00 Outpatient GC_SWHATBIC _[facility] PRIV PRIV [id number] [facility] 2022-08-12 00:00:00 2022-08-12 00:00:00 Outpatient GC_SWHATBIC _[facility]_S PRIV PRIV [id number] [facility] 2022-08-11 00:00:00 2022-08-11 00:00:00 Outpatient GC_SWHATBIC _[facility]_S PRIV PRIV [id number] [facility] 2022-07-04 11:10:00 2022-07-04 16:53:00 Emergency EM Lynda-Rajesh Srinivasan [facility] SIA [id number] [facility] 2022 12:30:00 2022 12:30:00 Outpatient Ibrahima Peñaloza [facility] LAB [id number] [facility] 2022-02-27 12:24:00 2022-02-27 12:24:00 Outpatient Ibrahima Peñaloza [facility] [id number] [facility] 2022-02-12 16:00:00 2022-02-12 16:00:00 Outpatient R IMMANUEL BLANCASN [facility] [id number] [facility] 2022-02-12 00:00:00 2022-02-12 00:00:00 Telephone Yonny Doug [facility] 1.2.840.114 350.1.13.10 4.2.7.2.686 [id number] 134 [id number] [facility] 2022-02-10 00:00:00 2022-02-10 00:00:00 Telephone Cj Kimberleeverenice [facility] 1.2.840.114 350.1.13.10 4.2.7.2.686 [id number] 134 [id number] [facility] 2022-02-09 13:30:00 2022-02-09 13:50:52 Outpatient R TIMO CORONA [facility] [id number] [facility] 2022-02-09 13:30:00 2022-02-09 13:50:52 Outpatient R TIMO CORONA CHERYAL [facility] [id number] [facility] 2022-02-09 13:30:00 2022-02-09 13:50:52 Routine Visit Timo Corona [facility] 1.2.840.114 350.1.13.10 4.2.7.2.686 [id number] 134 [id number] [facility] 2022-02-09 00:00:00 2022-02-09 00:00:00 Telephone Doug Blancas [facility] 1.2.840.114 350.1.13.10 4.2.7.2.686 [id number] 134 [id number] [facility] 2022-02-05 14:30:00 2022-02-05 15:29:27 Outpatient R DOUG BLANCAS [facility] [id number] [facility] 2022-02-05 14:30:00 2022-02-05 15:29:27 Initial Visit Doug Blancas [facility] 1.2.840.114 350.1.13.10 4.2.7.2.686 [id number] 134 [id number] [facility] 2022-02-05 00:00:00 2022-02-05 00:00:00 Letter (Out) Doug Blancas [facility] 1.2.840.114 350.1.13.10 4.2.7.2.686 [id number] 134 [id number] [facility] 2022-02-04 00:00:00 2022-02-04 00:00:00 Telephone Doug Blancas [facility] 1.2.840.114 350.1.13.10 4.2.7.2.686 [id number] 134 [id number] [facility] 2022-01-22 00:00:00 2022-01-22 00:00:00 Orders Only Doctor Unassigned, [place] [facility] 1.2.840.114 350.1.13.10 4.2.7.2.686 [id number] 009 [id number] [facility] 2021-10-24 11:30:00 2021-10-24 12:15:20 Office Visit Timo Corona [facility] 1.2.840.114 350.1.13.10 4.2.7.2.686 [id number] 134 [id number] [facility] 2021-10-24 11:30:00 2021-10-24 12:15:20 Outpatient R TIMO CORONA CHERYAL [facility] [id number] [facility] 2021-10-24 11:30:00 2021-10-24 11:30:00 Outpatient R CJTIMO CJTIMO [facility] [id number] [facility] 2021-10-24 00:00:00 2021-10-24 00:00:00 Orders Only Doctor Unassigned, [place] [facility] [id number] [facility] 2019-07-15 01:27:00 2019-07-15 01:27:00 Emergency UCBAFSHIN KESSLER [facility] [id number] [facility] 2019-06-12 15:21:00 2019-06-12 18:15:00 Departed Emergency Room [facility] [id number] [address] [place] [address] 2012-10-10 11:00:00 2012-10-10 12:25:04 Outpatient R OLGAGUS [facility] [id number] [facility] Results Test Description Test Time Test Comments Results Result Co mments Source [facility] [id number] 14:44:00* Test Item Value Reference Range Interpretation Comme nts POCT PREG (test code = 1605) Negative On board controls acceptable with C Line (test code = 3574) Yes POCT PREG LOT # (test code = 3575) POCT PREG TEST DATE ( test code = 3576) [facility] SARS-COV-2 ANTIGEN (BINAX NOW)2024-01-29 15:19:00* Test Item Value Reference Range Interpretation Comme nts POCT SARS-COV-2 ANTIGEN (test code = 90756-9) Not Detected Not Detected, See Comment On board controls acceptable with C Line (test code = 3574) Yes TIM (test code = TIM) accurate developme nt and interpretation of all internal controls Lab Interpretation (test code = 68404-6) Normal [facility] SARS-COV-2 ANTIGEN (BINAX NOW)2024-01-14 17:24:00* Test Item Value Reference Range Interpretation Comme nts POCT SARS-COV-2 ANTIGEN (test code = 93173-2) Not Detected Not Detected, See Comment On board controls acceptable with C Line (test code = 3574) Yes TIM (test code = TIM) accurate developme nt and interpretation of all internal controls Lab Interpretation (test code = 98242-4) [facility] [id number] 18:02:00* Test Item Value Reference Range Interpretation Comme nts POCT PREG (test code = 1605) Negative On board controls acceptable with C Line (test code = 3574) Yes POCT PREG LOT # (test code = 3575) [id number] POCT PREG TEST DATE ( test code = 3576) 10/29/24 Lab Interpretation (test cod e = 88332-5) [facility] [id number] 18:02:00* Test Item Value Reference Range Interpretation Comme nts POCT PREG (test code = 1605) Negative On board controls acceptable with C Line (test code = 3574) Yes POCT PREG LOT # (test code = 3575) [id number] POCT PREG TEST DATE ( test code = 3576) 10/29/24 Lab Interpretation (test cod e = 81052-1) [facility] Urinalysis W Specific [id number] 18:36:00* Test Item Value Reference Range Interpretation [...] U APPEAR (test code = 3267) Clear [facility] Urinalysis W Specific [id number] 18:36:00* Test Item Value Reference Range Interpretation [...] U APPEAR (test code = 3267) Clear [facility] Urinalysis W Specific [id number] 18:36:00* Test Item Value Reference Range Interpretation [...] U APPEAR (test code = 3267) [facility] 22:30:46* Test Item Value Reference Range Interpretation Comme [facility] POCT GLU (test code = 4672638431) 137 mg/dL 70-110 H Lab Interpretation (test cod e = 89108-6) Abnormal [facility]. METABOLIC PANEL (28758)2023-10-16 21:48:18* Test Item Value Reference Range Interpretation Comme nts NA (test code = 3287079714) 138 mmol/L 135-145 K (test code = 1767335326) 4.7 mmol/L 3.5-5.0 CL (test code = 6787251016) 105 mmol/L 98-108 CO2 TOTAL (test code = 6866099409) 23 mmol/L 23-31 AGAP (test code = 6583841422) 10 2-16 BUN (test code = 9253053033) 15 mg/dL 7-23 GLUCOSE (test code = 0859451902) 120 mg/dL 70-110 H CREATININE (test code = 2160-0) 0.58 mg/dL 0.50-1.04 TOTAL BILI (test code = 7746371950) 0.7 mg/dL 0.1-1.1 CALCIUM (test code = 5262029576) 9.4 mg/dL 8.6-10.6 T PROTEIN (test code = 4598556009) 9.1 g/dL 6.3-8.2 H ALBUMIN (test code = 5246792498) 4.6 g/dL 3.5-5.0 ALK PHOS (test code = 8621755370) 114 U/L 34-122 ALTv (test code = 1742-6) 94 U/L 5-35 H AST(SGOT) (test code = 4291109551) 67 U/L 13-40 H eGFR (test code = 11963-0) 128.2 mL/min/1.73m2 CKD-EPI eGFR (2020). Assuming creatinine has been stable day-to-day for at least three months, the eGFR indicates Category G1 (>= 90 mL/min/1.73 m2) Lab Interpretation (test code = 73201-6) Abnormal [facility] WITH [id number] 21:33:31* Test Item Value Reference Range Interpretation [...] g/dL 31.6-35.1 L RDW-SD (test code = 74214-5) 47.5 fL 39.0-49.9 RDW-CV (test code = 788-0) 16.5 % 12.0-15.5 H PLT (test code = 777-3) 330 166-358 MPV (test code = 18281-7) 11.9 fL 9.5-12.9 NRBC/100 WBC (test code = 7740554033) 0.0 0.0-10.0 NRBC x10^3 (test code = 9132765793) See_Comment [Automated messa ge] The system which generated this result transmitted reference range: 10*3/?L. The reference range was not used to interpret this result as normal/abnormal. GRAN MAT (NEUT) % (test code = 770-8) 50.1 % IMM GRAN % (test code = 6974656813) 0.40 % LYMPH % (test code = 736-9) 41.7 % MONO % (test code = 5905-5) 6.1 % EOS % (test code = 713-8) 1.1 % BASO % (test code = 706-2) 0.6 % GRAN MAT x10^3(ANC) (test code = 3147263100) 3.61 10*3/uL 1.88-7.09 IMM GRAN x10^3 (test code = 0183109652) 0.03 10*3/uL 0.00-0.06 LYMPH x10^3 (test code = 731-0) 3.00 10*3/uL 1.32-3.29 MONO x10^3 (test code = 742-7) 0.44 10*3/uL 0.33-0.92 EOS x10^3 (test code = 711-2) 0.08 10*3/uL 0.03-0.39 BASO x10^3 (test code = 704-7) 0.04 10*3/uL 0.01-0.07 Lab Interpretation (test code = 57330-4) [facility] [id number] 21:18:26EXAM: XR CHEST 1 10/16/2023 4:03 PM HISTORY: 28 years-old Female with weakness . TECHNIQUE: Portable AP view of the chest. COMPARISON: None. FINDINGS: Lines and tubes: None. Cardiomediastinal: The cardiomediastinal silhouette is unremarkable. Lungs and pleura: The lungs are clear. No focal consolidation,pneumothorax, or pleural effusion is seen. Included osseous structures show no acute abnormality. [facility] [id number] 21:01:00* Test Item Value Reference Range Interpretation Comme [facility] POCT PREG (test code = 1605) Negative On board controls acceptable with C Line (test code = 3574) Yes POCT PREG LOT # (test code = 3575) [id number] POCT PREG TEST DATE ( test code = 3576) 08/04/2024 Lab Interpretation (test cod e = 50142-8) Normal [facility] GLUCOSE (AUTOMATED)2023-10-16 20:32:36* Test Item Value Reference Range Interpretation Comme [facility] POCT GLU (test code = 7002407164) 77 mg/dL 70-110 Lab Interpretation (test cod e = 25666-6) Normal [facility] SARS-COV-2 ANTIGEN (BINAX NOW)2023-08-14 00:36:00* Test Item Value Reference Range Interpretation Comme [facility] POCT SARS-COV-2 ANTIGEN (test code = 01002-6) Positive Not Detected A On board controls acceptable with C Line (test code = 3574) Yes TIM (test code = TIM) accurate developme nt and interpretation of all internal controls Lab Interpretation (test code = 94314-6) Abnormal [facility] SARS-COV-2 ANTIGEN (BINAX NOW)2023-06-25 16:17:00* Test Item Value Reference Range Interpretation Comme nts POCT SARS-COV-2 ANTIGEN (test code = 17781-9) Not Detected Not Detected On board controls acceptable with C Line (test code = 3574) Yes TIM (test code = TIM) accurate developme nt and interpretation of all internal controls [facility] Molecular [id number] 16:14:45* Test Item Value Reference Range Interpretation Comme nts POCT Molecular FluA (test co de = 31323-8) Negative Negative POCT Molecular FluB (test co de = 38222-1) Negative Negative Lab Interpretation (test cod e = 04766-7) Normal [facility] MOLECULAR [id number] 16:08:16* Test Item Value Reference Range Interpretation Comme nts POCT Molecular Strep (test c ode = 67050-5) Negative Negative Lab Interpretation (test cod e = 31836-0) Normal [facility] [id number] 20:56:00* Test Item Value Reference Range Interpretation Comme nts POCT PREG (test code = 1605) Negative On board controls acceptable with C Line (test code = 3574) Yes POCT PREG LOT # (test code = 3575) POCT PREG TEST DATE ( test code = 3576) [facility] URINALYSIS W/O SPECIFIC [id number] 15:24:00* Test Item Value Reference Range Interpretation [...] = 3257) Trace Negative - Negati ve [facility] URINALYSIS W/O SPECIFIC [id number] 15:24:00* Test Item Value Reference Range Interpretation [...] = 3257) Trace Negative - Negati ve [facility] with Awabvfwkhvhs1221-47-86 12:11:12* Test Item Value Reference Range Interpretation [...] 32.5 g/dL 31.6-35.1 RDW-SD (test code = 06754-6) 37.9 fL 39.0-49.9 L RDW-CV (test code = 788-0) 12.5 % 12.0-15.5 PLT (test code = 777-3) 212 See_Comment [Automated messa ge] The system which generated this result transmitted reference range: 166 - 358 10*3/?L. The reference range was not used to interpret this result as normal/abnormal. MPV (test code = 74460-3) 13.7 fL 9.5-12.9 H IPF % (test code = 7583250907) 12.4 % 1.3-7.7 H Platelet count measured by fluorescence method. NRBC/100 WBC (test code = 7217544575) 0.0 See_Comment [Automated me ssage] The system which generated this result transmitted reference range: 0.0 - 10.0 /100 WBCs. The reference range was not used to interpret this result as normal/abnormal. NRBC x10^3 (test code = 5227812133) See_Comment [Automated messa ge] The system which generated this result transmitted reference range: 10*3/?L. The reference range was not used to interpret this result as normal/abnormal. GRAN MAT (NEUT) % (test code = 770-8) 88.8 % IMM GRAN % (test code = 9370598950) 0.50 % LYMPH % (test code = 736-9) 5.2 % MONO % (test code = 5905-5) 5.4 % EOS % (test code = 713-8) 0.0 % BASO % (test code = 706-2) 0.1 % GRAN MAT x10^3(ANC) (test code = 9552131477) 13.10 10*3/uL 1.88-7.09 H IMM GRAN x10^3 (test code = 4595810414) 0.08 10*3/uL 0.00-0.06 H LYMPH x10^3 (test code = 731-0) 0.77 10*3/uL 1.32-3.29 L MONO x10^3 (test code = 742-7) 0.79 10*3/uL 0.33-0.92 EOS x10^3 (test code = 711-2) 0.03-0.39 L BASO x10^3 (test code = 704-7) 0.01-0.07 Lab Interpretation (test code = 30300-3) Abnormal [facility]NAL HEMO [id number] 10:52:00 * Test Item Value Reference Range Interpretation Comme nts SCREEN (test code = 846) Negative RHIG REQUIRED? (test code = 1747) 1 Syringe Patient is a can didate for RhIg- Patient is Rh Negative and baby is Rh Positive. [facility] (D) IMMUNE [id number] 03:51:49* Test Item Value Reference Range Interpretation Comme nts RHIG CANDIDATE? (test code = 5188) Yes- see comment A Patient is a candidate for RhIg- Patient is Rh Negative and baby is Rh Positive.Performe d at [facility] Laboratory Services - [facility] Blood [address] [id number] Free: [phone] No. [id number] Lab Interpretation (test code = 51361-0) Abnormal [facility]HIV 1/2 AG-AB WITH [id number] 01:30:48* Test Item Value Reference Range Interpretation Comme nts HIV Semi-quantitative (test code = 78826-7) 0.18 Negative TIM (test code = TIM) Non-reactive for HIV-1 antigen and HIV-1/HIV-2 antibodies. ?No laboratory evidence of HIV infection. ?Repeat in 2-4 weeks if acute HIV infection is suspected. [facility] CenterAD OR MAGALY ONLY - [id number] 01:11:37* Test Item Value Reference Range Interpretation Comme nts RPR (Qualitative) (test code = 71197-7) Nonreactive Nonreactive Lab Interpretation (test cod e = 18349-4) Normal [facility] CenterHepatitis B Surface Kazztap8260-35-09 23:04:27 * Test Item Value Reference Range Interpretation Comme nts HBsAg Semi-Quantitative (chavez t code = 5195-3) 0.04 Negative [facility] with Gjuektljnsms1510-62-70 19:26:49* Test Item Value Reference Range Interpretation [...] 32.2 g/dL 31.6-35.1 RDW-SD (test code = 50020-7) 37.8 fL 39.0-49.9 L RDW-CV (test code = 788-0) 12.4 % 12.0-15.5 PLT (test code = 777-3) 218 See_Comment [Automated messa ge] The system which generated this result transmitted reference range: 166 - 358 10*3/?L. The reference range was not used to interpret this result as normal/abnormal. MPV (test code = 97882-3) 13.0 fL 9.5-12.9 H NRBC/100 WBC (test code = 4427235078) 0.0 See_Comment [Automated [employer] ssage] The system which generated this result transmitted reference range: 0.0 - 10.0 /100 WBCs. The reference range was not used to interpret this result as normal/abnormal. NRBC x10^3 (test code = 4972959023) See_Comment [Automated messa ge] The system which generated this result transmitted reference range: 10*3/?L. The reference range was not used to interpret this result as normal/abnormal. GRAN MAT (NEUT) % (test code = 770-8) 77.2 % IMM GRAN % (test code = 7582541723) 0.30 % LYMPH % (test code = 736-9) 15.6 % MONO % (test code = 5905-5) 6.5 % EOS % (test code = 713-8) 0.2 % BASO % (test code = 706-2) 0.2 % GRAN MAT x10^3(ANC) (test code = 3523145877) 6.76 10*3/uL 1.88-7.09 IMM GRAN x10^3 (test code = 9398478845) 0.03 10*3/uL 0.00-0.06 LYMPH x10^3 (test code = 731-0) 1.37 10*3/uL 1.32-3.29 MONO x10^3 (test code = 742-7) 0.57 10*3/uL 0.33-0.92 EOS x10^3 (test code = 711-2) 0.03-0.39 L BASO x10^3 (test code = 704-7) 0.01-0.07 Lab Interpretation (test code = 72217-9) Abnormal [facility] CenterType and Screen - ONCE [id number] 19:22:00 * Test Item Value Reference Range Interpretation Comme nts ABO & RH (test code = 20) A Negative IAT (test code = 1185) Positive [facility] URINALYSIS W/O SPECIFIC [id number] 18:21:00* Test Item Value Reference Range Interpretation [...] internal controls Lab Interpretation (test code = 33205-5) Normal [facility] GLUCOSE (AUTOMATED)2022-11-25 18:00:27* Test Item Value Reference Range Interpretation Comme nts POCT GLU (test code = 3500222958) 80 mg/dL 70-110 Lab Interpretation (test cod e = 95641-6) Normal [facility] URINALYSIS W/O SPECIFIC [id number] 18:17:00* Test Item Value Reference Range Interpretation [...] = 3257) n/a Negative - Negati ve [facility] URINALYSIS W/O SPECIFIC [id number] 05:00:00* Test Item Value Reference Range Interpretation [...] = 3257) NA Negative - Negati ve [facility] URINALYSIS W/O SPECIFIC [id number] 18:47:00* Test Item Value Reference Range Interpretation [...] = 3257) n/a Negative - Negati ve [facility] URINALYSIS W/O SPECIFIC QBNQZEG0063-83-97 16:02:00* Test Item Value Reference Range Interpretation Comme nts POCT PH U (test code = 3254) n/a 5-8 POCT U LEUK EST (test code = 3263) n/a Negative - N egative POCT U NIT (test code = 3262) Trace Negative - Negati ve POCT U PROT (test code = 3259) 50 Negative - Negat aty POCT U GLU (test code = 3256) n/a Negative - Negati ve POCT U KETONE (test code = 3258) n/a Negative - Neg ative POCT U BLD (test code = 3257) n/a Negative - Negati ve [facility] CenterUric Acid Xitkp7032-21-29 03:12:06* Test Item Value Reference Range Interpretation Comme nts URIC ACID (test code = 0735036338) 2.6 mg/dL 2.9-6.0 L Lab Interpretation (test cod e = 93897-7) Abnormal [facility] CenterAlanine Amino Transferase (SGPT)2022-09-26 03:12:06* Test Item Value Reference Range Interpretation Comme nts ALTv (test code = 1742-6) 11 U/L 5-35 Lab Interpretation (test cod e = 20504-0) Normal [facility] CenterLactate Mawkhaswgrbyv0444-81-38 03:12:06* Test Item Value Reference Range Interpretation Comme nts LDH (test code = 5912946014) 123 U/L 120-246 Lab Interpretation (test cod e = 94626-3) Normal [facility] CenterSGOT (Asparate Amino Transfer)2022-09-26 03:11:46* Test Item Value Reference Range Interpretation Comme nts AST(SGOT) (test code = 2761933618) 19 U/L 13-40 Lab Interpretation (test cod e = 89547-7) Normal [facility] CenterSerum Mruhcjicgo7809-22-04 03:11:45* Test Item Value Reference Range Interpretation Comme nts CREATININE (test code = 1149839961) 0.35 mg/dL 0.50-1.04 L eGFR (test code = 9673771496) 226.9 mL/min/1.73m2 TIM (test code = TIM) [...] imaging tests). Lab Interpretation (test code = 90631-4) Abnormal [facility] with Bkpzjdqzabpj2524-75-73 03:09:28* Test Item Value Reference Range Interpretation Comme nts WBC (test code = 6690-2) 8.71 See_Comment [[employer]] The system which generated this result transmitted reference range: 4.30 - 11.10 10*3/?L. The reference range was not used to interpret this result as normal/abnormal. RBC (test code = 789-8) 3.70 See_Comment L [[employer]] The system which generated this result transmitted [...] 34.5 g/dL 31.6-35.1 RDW-SD (test code = 23110-4) 39.4 fL 39.0-49.9 RDW-CV (test code = 788-0) 12.5 % 12.0-15.5 PLT (test code = 777-3) 231 See_Comment [Automated messa ge] The system which generated this result transmitted reference range: 166 - 358 10*3/?L. The reference range was not used to interpret this result as normal/abnormal. MPV (test code = 35021-2) 11.8 fL 9.5-12.9 NRBC/100 WBC (test code = 3670838498) 0.0 See_Comment [Automated me ssage] The system which generated this result transmitted reference range: 0.0 - 10.0 /100 WBCs. The reference range was not used to interpret this result as normal/abnormal. NRBC x10^3 (test code = 6227747867) See_Comment [Automated messa ge] The system which generated this result transmitted reference range: 10*3/?L. The reference range was not used to interpret this result as normal/abnormal. GRAN MAT (NEUT) % (test code = 770-8) 56.2 % IMM GRAN % (test code = 1575154559) 0.20 % LYMPH % (test code = 736-9) 34.4 % MONO % (test code = 5905-5) 8.0 % EOS % (test code = 713-8) 0.9 % BASO % (test code = 706-2) 0.3 % GRAN MAT x10^3(ANC) (test code = 4961714875) 4.88 10*3/uL 1.88-7.09 IMM GRAN x10^3 (test code = 5979625760) 0.00-0.06 LYMPH x10^3 (test code = 731-0) 3.00 10*3/uL 1.32-3.29 MONO x10^3 (test code = 742-7) 0.70 10*3/uL 0.33-0.92 EOS x10^3 (test code = 711-2) 0.08 10*3/uL 0.03-0.39 BASO x10^3 (test code = 704-7) 0.03 10*3/uL 0.01-0.07 Lab Interpretation (test code = 35797-4) Abnormal [facility] CenterTHYROID STIMULATING [id number] 14:22:00 * Test Item Value Reference Range Interpretation Comme nts THYROID STIMULATING HORMONE (test code = TSH) 1.88 0.36-3.74 N Test Performed i n MicroInternational Units/mL HCG [id number] 13:55:00* Test Item Value Reference Range Interpretation Comme nts HCG SERUM (test code = HCG) 41505 INTERPRETATION:V ALUES BETWEEN 15-20 milliInternational units/mL NEED TO BERETESTED WITHIN 48 HOURS. All units for these ranges are in milliInternationalunits/mL0-1 WK AFTER CONCEPTION 0-50 1-2 WKS AFTER CONCEPTION 40-3002-3 WKS AFTER CONCEPTION 100-1,0003-4 WKS AFTER CONCEPTION 500-6,0001-2 MONTHS AFTER CONCEPTION 5,000-200,0002-3 MONTHS AFTER CONCEPTION 10,000-100,0002ND TRIMESTER 3,000-50,0003RD TRIMESTER 1,000-50,000 SPECIMENS WITH AN HCG LEVEL FROM 0-6 milliInternationalunits/mL SHOULD BE CONSIDERED NEGATIVE COMPREHENSIVE METABOLIC [id number] 13:24:00* Test Item Value Reference Range Interpretation [...] 46-116 N UA RFLX MICR CULT IF PBUBQAHSC0324-82-92 13:14:00* Test Item Value Reference Range Interpretation [...] code = URO) 0.2 EU/dL See_Comment [Automated [employer]] The system which generated this result transmitted reference range: <=1.0. The reference range was not used to interpret this result as normal/abnormal. UA NITRITE DIPSTICK (test code = MCIHAEL) NEGATIVE NEGATIVE UA LEUKOCYTE ESTERASE DIPSTICK (test [...] culture: Suprapubic PainSpecimen Description: CLEAN CATCHCBC W/AUTO [id number] 13:02:00* Test Item Value Reference Range Interpretation [...] PLTMR) NORMAL NORMAL - US PREG UT LPHIFJGWDDJG3245-87-02 00:00:00 [facility] 1995 Sex: F Patient Name: DEYSI ALVAREZ Unit No: [id number] EXAMS: CPT CODE: [id number] US PREG UT TRANSVAGINAL 20582 PROCEDURE INFORMATION: Exam: US First Trimester (Transabdominal), [...] EGA (MSD) is 13 w 6 d Eugene-Rump length: 77.7 mm. EGA (CRL) is 13 [...] space: No intraperitoneal free fluid. IMPRESSION: [facility]'s [facility] NAME: DEYSI ALVAREZNE Radiology Department PHYS: Rajesh Olea [address] : 1995 AGE: 27 SEX: F [place], [place] [address] LOC: DEA PHONE #: [phone] EXAM DATE: 07/04/2022 STATUS: REG ER FAX #: [phone] RAD NO: Page 1 Signed Report (CONTINUED) Patient Name: DEYSI ALVAREZ Unit No: [id number] EXAMS: CPT CODE: [id number] US PREG UT TRANSVAGINAL 77167 (Continued) 1. Single liveintrauterine gestation corresponding to [...] III, MD Technologist: Jane Bundy RDMS Probe: [id number] Trnscrbd D/ (1551) GCD.CPS Orig Print D/T: S: 07/04/2022 (1552) [facility] NAME: DEYSI ALVAREZ RadiologyDepartment PHYS: Rajesh Olea [address] : 1995 AGE: 27 SEX: F [place] [address] LOC: BonnieERS PHONE #: [phone] EXAM DATE: 07/04/2022 STATUS: REG ER FAX #: [phone] RAD NO: Page 2 Signed Report Patient Name: DEYSI ALVAREZ Unit No: [id number] EXAMS: CPT CODE: [id number] US PREG UT TRANSVAGINAL 06211 (Continued) [facility] NAME: DEYSI ALVAREZ Radiology Department PHYS: Rajesh Olea [address] : 1995 AGE: 27 SEX: F [place] [address] LOC: BonnieERS PHONE #: [phone] EXAM DATE: 07/04/2022 STATUS: REG ER FAX #: [phone] RAD NO: Page 3 Signed Report- DUP AB/PEL/SC/UZI8076-72-67 00:00:00 [facility] : 1995 Sex: F Patient Name: DEYSI ALVAREZ Unit No: [id number] EXAMS: CPT CODE: [id number] DUP AB /PEL/SC/LTD 46933 PROCEDURE INFORMATION: Exam: US First Trimester (Transabdominal), [...] EGA (MSD) is 13 w 6 d Eugene-Rump le ngth: 77.7 mm. EGA (CRL) is 13 w 6 d MATERNAL: Uterus: Uterus measures 16.3 cm x 12 cm x 9.3 cm. Cervix: Cervical length measures 3.4 cm and is closed. Right ovary/adnexa: Right ovary measures 1.9 cmx 1.4 cm x 1.7 cm. Right ovarian volume is 2.3 CM3. Left ovary/adnexa: Left ovary measures 3.2 cm x2.2 cm x 1.1 cm. Left ovarian volume is 3.8 CM3. Intraperitoneal space: No intraperitoneal free fluid. IMPRESSION: [facility] NAME: DEYSI ALVAREZNE Radiology Department PHYS: Rajesh Olea [address] : 1995 AGE: 27 SEX: F [place], [place] [address] LOC: DEA PHONE #: [phone] EXAM DATE: 07/04/2022 STATUS: REG ER FAX #: [phone] RAD NO: Page 1 Signed Report (CONTINUED) Patient Name: DEYSI ALVAREZ Unit No:[id number] EXAMS: CPT CODE: [id number] DUP AB/PEL/SC/LTD 31029 (Continued) 1. Single live intrauterine gestation corresponding to 13 weeks and 6 days by crown-rump length. 2. heart activity of 157 the the bpm. 3. Low- lying placenta with 6.5 x 1.1 x 3.3 cm retroplacental hemorrhage along the lower uterine segment. 3.2 x 3.5 x 0.8 cm subchorionic hemorrhage along the left anterolateral aspectof the gestational sac. at 1551 Reported and signed by: Bruna Aguilar MD CC: Rajesh Leavitt MD; Ibrahima Peñaloza III, MD Technologist: Jane Bundy RDMS Probe: Trnscrbd D/ (1551) GCD.CPS Orig Print D/T: S: 07/04/2022 (1551) [facility] NAME: DEYSI ALVAREZ [facility] Radiology Department PHYS: THEA LeavittRajesh [address] : 1995 AGE: 27 SEX: F [place] [address] LOC: BonnieERS PHONE #: [phone] EXAM DATE: 07/04/2022 STATUS: REG ER FAX #: [phone] RAD NO: Page 2 Signed Report Patient Name: DEYSI ALVAREZ Unit No: [id number] EXAMS: CPT CODE: [id number] DUP AB/PEL/SC/LTD 29913 (Continued) [facility] NAME: DEYSI ALVAREZ Radiology Department PHYS: NILARA Valdes LyndaLucioMatthewRajesh [address] : 1995 AGE: 27 SEX: F [place], [place] [address] LOC: BonnieERS PHONE #: [phone] EXAMDATE: 07/04/2022 STATUS: REG ER FAX #: [phone] RAD NO: Page 3 Signed Report- US PREG EVAL 1ST [id number] 00:00:00 [facility] : 1995 Sex: F Patient Name: DEYSI ALVAREZ Unit No: [id number] EXAMS: CPT CODE: [id number] US PREG EVAL 1ST TRIMTR 47953 PROCEDURE INFORMATION: Exam: US First Trimester (Transabdominal), [...] COMPARISON: No relevant prior studies available. FINDINGS: Gestation:Yolk sac measures 4.3 mm. Embryonic/ heart rate: [...] EGA (MSD) is 13 w 6 d Eugene-Rump length: 77.7 mm. EGA (CRL) is 13 [...] space: No intraperitoneal free fluid. IMPRESSION: [facility] NAME: DEYSI ALVAREZ Radiology Department PHYS: Rajesh Olea [address] : 1995 AGE: 27 SEX: F [place], [place] [address] LOC: DEA PHONE #: [phone] EXAM DATE: 07/04/2022 STATUS: REG ER FAX#: [phone] RAD NO: Page 1 Signed Report (CONTINUED) Patient Name: DEYSI ALVAREZ Unit No: [id number] EXAMS: CPT CODE: [id number] US PREG EVAL 1ST TRIMTR 71660 (Continued) 1. Single liveintrauterine gestation corresponding to [...] GCD.CPS Orig Print D/T: S:07/04/2022 (1551) [facility] NAME: DEYSI ALVAREZ Radiology DepartmentPHYS: Rajesh Rajan [address] : 1995 AGE: 27 SEX: F [place], [place] [address] LOC: DEA PHONE #: [phone] EXAM DATE: 07/04/2022 STATUS: REG ER FAX #: [phone] RAD NO: Page 2 Signed Report Patient Name: DEYSI ALVAREZ Unit No: [id number] EXAMS: CPT CODE: [id number] US PREG EVAL 1ST TRIMTR 04707 (Continued) [facility] NAME: DEYSI ALVAREZ Radiology Department PHYS: THEA HuangzRajesh [address] : 1995 AGE: 27 SEX: F [place], [place] [address] LOC: DEA PHONE #: [phone] EXAM DATE: 07/04/2022 STATUS: REG ER FAX #: [phone] RAD NO: Page 3 Signed ReportSURGICAL 2022-03-03 14:46:00* Test Item Value Reference Range Interpretation Comme nts SURGICAL (test code = SR) R UN DATE: 03/03/22 [facility] - Laboratory PAGE 1 RUN TIME: 1446 Specimen Inquiry RUN USER: INTERFACE P ATIENT: DEYSI ALVAREZ LOC: REYNA U #: [id number] AGE/SX: 26/F ROOM: RE02/27/22REG DR: Ibrahima Peñaloza III, MD : [birth year] BED: DIS: STATUS: REG REF TLOC: SPEC #: [id number] RECD: 02/27/22 STATUS: SARAHI IRVING #: [id number] RONI: 02/27/[address] [facility] [address]: Ibrahima Peñaloza III, MD ENTERED: 02/27/22 SP TYPE: SURGICAL OTHR DR: ORDERED: ANATOMIC SPEC, SPEC TRACK, [id number] PROCEDURES: 67135 (02/27/22) TISSUES: A. PRODUCTS OF CONCEPTION - [...] 4 cassettes A1-A4.02/27/22 Technical component performed at [employer],[id number] , [place] [address] Unless gross only, the diagnosis is based [...] Signed SIGNATURE ON FILE Rush Bess 03/03/22 8756 END OF REPORT POCT URINALYSIS W/O SPECIFIC [id number] 19:35:00* Test Item Value Reference Range Interpretation [...] = 3257) n/a Negative - Negati ve [facility] CenterPOCT [id number] 19:34:00* Test Item Value Reference Range Interpretation Comme nts POCT PREG (test code = 1605) Positive On board controls acceptable with C Line (test code = 3574) Yes POCT PREG LOT # (test code = 3575) POCT PREG TEST DATE ( test code = 3576) [facility] CenterB-[facility]CG QUAL (KIT)2019-07-15 04:00:00* Test Item Value Reference Range Interpretation Comme nts HCGQUAL (test code = HCGQUAL) NEGATIVE NEGATIVE URINE: NEGATIVE = < 20 mIU/ML; POSITIVE= >/= 20 mIU/ML SERUM: NEGATIVE = < 10 mIU/ML; POSITIVE= >/= 10 mIU/ML SOURCE (test code = SOURCE) URINE HCG INTERNAL POSITIVE CNTRL (test code = HCGIPC) PASS PASS HCG LOT # (test code = UHCGLOT) [id number] HCG EXPIRATION DATE (test code = UHCGEXP) 10-16 [id number] 03:58:00* Test Item Value Reference Range Interpretation [...] = BACTERIA) MODERATE NONE Urinalysis specimen collection [id number] 16:35:00* Test Item Value Reference Range Interpretation Comme nts Urine Source (test code = 59590-7) URINE [facility] Urine by [id number] 16:35:00* Test Item Value Reference Range Interpretation Comme nts Urine Color (test code = 12436-4) Yellow Yel-Diane * [facility] HealthUrine clarity iezgrisuytnkm2862-05-89 16:35:00* Test Item Value Reference Range Interpretation Comme nts Urine Appearance (test code = 31918-5) Clear Clear * [facility] HealthUrine pH measurement by automated test zeyej8441-14-84 16:35:00* Test Item Value Reference Range Interpretation Comme nts Urine pH (test code = 23686-3) 5.0 5.0-8.0 [facility] HealthSpecific gravity of Urine by Automated test bbnwu7435-68-87 16:35:00* Test Item Value Reference Range Interpretation Comme nts Urine Specific [place] (test code = 75512-3) 1.029 1.005-1.030 [facility] HealthUrine protein measurement by automated test strip (mass/volume) 2019-06-12 16:35:00* Test Item Value Reference Range Interpretation Comme nts Urine Protein (test code = 92792-5) 10 mg/dL Negative * [facility] HealthUrine glucose measurement by automated test strip (mass/volume) 2019-06-12 16:35:00* Test Item Value Reference Range Interpretation Comme nts Urine Glucose (UA) (test cod e = 97826-4) Negative mg/dL Negative * [facility] HealthUrine ketones measurement by automated test strip (mass/volume) 2019-06-12 16:35:00* Test Item Value Reference Range Interpretation Comme nts Urine Ketones (test code = 46129-7) Trace mg/dL Negative * [facility] HealthUrine erythrocytes count by automated test strip (number/volume) 2019-06-12 16:35:00* Test Item Value Reference Range Interpretation Comme nts Urine Occult Blood (test cod e = 82300-4) Negative Negative * [facility] HealthUrine nitrite detection by automated test hjpvg2656-21-52 16:35:00* Test Item Value Reference Range Interpretation Comme nts Urine Nitrite (test code = 24404-5) Negative Negative [facility] HealthUrine total bilirubin measurement by automated test strip (mass/volume)2019-06-12 16:35:00* Test Item Value Reference Range Interpretation Comme nts Urine Bilirubin (test code = 57602-0) Negative mg/dL Negative [facility] HealthUrine urobilinogen measurement by automated test strip (mass/volume)2019-06-12 16:35:00* Test Item Value Reference Range Interpretation Comme nts Urine Urobilinogen (test cod e = 14391-4) Negative mg/dL 0.0-1.0 [facility] HealthUrine leukocytes count by automated test strip (number/volume) 2019-06-12 16:35:00* Test Item Value Reference Range Interpretation Comme nts Urine Leukocyte Esterase (test code = 53263-8) Negative {Darcie}/uL Negative [facility] HealthMicroscopic examination of apnrf5129-84-95 16:35:00* Test Item Value Reference Range Interpretation Comme nts Microscopic Urinalysis (T) ( test code = 87189-6) ----- [facility] HealthUrine sediment erythrocyte count by microscopy (number/high power field)2019-06-12 16:35:00* Test Item Value Reference Range Interpretation Comme nts Urine RBC (test code = 64019-0) 0-2 /[HPF] 0-2 [facility] HealthUrine sediment leukocyte [...] Comme nts Urine Crystals (test code = 82317-1) None Seen /[HPF] None * [facility] HealthUrine [...] HealthYeast detection in urine sediment by light italzlrmsl3932-72-82 16:35:00* Test Item Value Reference Range Interpretation Comme nts Urine Yeast (test code = 22395-1) None Seen /[HPF] None [facility] comment [...] HealthAutomated erythrocyte mean corpuscular hemoglobin concentration measurement (mass/fus8225-84-28 16:25:00* Test Item Value Reference Range Interpretation Comme nts Mean Corpuscular Hemoglobin Concent (test code = 786-4) 31.6 g/dL 33.0-37.0 [facility] HealthAutomated erythrocyte distribution width iyptz2674-77-17 16:25:00 * Test Item Value Reference Range Interpretation Comme nts Red Cell Distribution Width (test code = 788-0) 12.3 % 10.7-14.5 [facility] HealthAutomated blood platelet count (count/volume)2019-06-12 16:25:00 * Test Item Value Reference Range Interpretation Comme nts Platelet Count (test code = 777-3) 295 10*3/uL 150-450 [facility] HealthAutomated blood platelet mean volume tteehvxbvgm3995-70-48 16:25:00* Test Item Value Reference Range Interpretation Comme nts Mean Platelet Volume (test c ode = 85062-2) 11.0 5.7-10.7 [facility] comment [id number] 16:25:00* Test Item Value Reference Range Interpretation Comme nts Manual Differential (test co de = 8265-1) ----- [facility] HealthManual blood segmented neutrophils/100 rwessydadp1190-32-13 16:25:00* Test Item Value Reference Range Interpretation Comme nts Neutrophils % (Manual) (test code = 769-0) 47 % 42-75 [facility] HealthManual blood band neutrophils form/100 nahcpuzscj3591-54-97 16:25:00* Test Item Value Reference Range Interpretation Comme nts Band Neutrophils % (Manual) (test code = 764-1) 4 % 5-11 [facility] HealthManual blood lymphocytes/100 imcuuwqadf9071-55-04 16:25:00* Test Item Value Reference Range Interpretation Comme nts Lymphocytes % (Manual) (test code = 737-7) 43 % 21-51 [facility] HealthManual blood monocytes/100 xhsskpsezk2888-56-26 16:25:00* Test Item Value Reference Range Interpretation Comme nts Monocytes % (Manual) (test c ode = 744-3) 4 % 1-9 [facility] HealthManual blood eosinophil count as percentage of total leukocytes 2019-06-12 16:25:00* Test Item Value Reference Range Interpretation Comme nts Eosinophils % (Manual) (test code = 714-6) 1 % 0-7 [facility] HealthManual blood basophils/100 wuphmwrfuu3166-99-61 16:25:00* Test Item Value Reference Range Interpretation Comme nts Basophils % (Manual) (test c ode = 707-0) 1 % 0-2 [facility] HealthBlood platelet detection by light pdekdaxehb6148-17-29 16:25:00* Test Item Value Reference Range Interpretation Comme nts Platelet Estimate (test code = 9317-9) Adequate [facility] HealthBlood erythrocyte morphology finding rbpwjhaobuxxjq3051-00-68 16:25:00* Test Item Value Reference Range Interpretation [...] Comme nts Anion Gap (test code = 57751-9) 14 8-18 [facility] HealthSerum or plasma urea nitrogen measurement (mass/volume)2019-06-12 16:25:00* Test Item Value Reference Range Interpretation Comme nts Blood Urea Nitrogen (test co de = 3094-0) 10 mg/dL 7-19 [facility] HealthSerum or plasma creatinine measurement (mass/volume)2019-06-12 16:25:00* Test Item Value Reference Range Interpretation Comme nts Creatinine (test code = 2160-0) 0.7 mg/dL 0.6-1.1 [facility] HealthGFR estimate MDHT3877-86-88 16:25:00* Test Item Value Reference Range Interpretation Comme nts Estimat Glomerular Filtratio n Rate (test code = 16808-1) 111 90-142 [facility] HealthSerum or plasma glucose measurement (mass/volume)2019-06-12 16:25:00* Test Item Value Reference Range Interpretation Comme nts Glucose Level (test code = 2345-7) 127 mg/dL 60-100 [facility] HealthSerum or plasma calcium measurement (mass/volume)2019-06-12 16:25:00* Test Item Value Reference Range Interpretation Comme nts Calcium Level (test code = 04055-2) 9.5 mg/dL 8.4-10.2 [facility] HealthSerum or plasma [...] (test code = 3040-3) 21 U/L 8-78 [facility] 1 VIEW PGJRDDLG7639-99-06 07:15:00[address] [place], [place] [address]XMHOYXTTZS IMAGING REPORTPa tient Name: DEYSI ALVAREZ BDate of Service: 87-74-4949Qtq: 23 Sex: F Order #: 1000 [facility] 1995 [facility] Number: [id number] Record Number: [id number] Hospital Number: [id number] Physician: GABBY THOMASOrdering Physician: JOAQUIN CODY ONE [...] Signed By: Arturo Moore M.D., 12/25/2018 7:13 [facility] authenticated by JOY FRANCO 7744-11-8765:13:83PDBJ8517-07-38 02:24:00* Test Item Value Reference Range Interpretation Comme nts %CKMB (test code = %MB) TNP % UNABLE TO CALCULATE RESULTS DUE TO CKMB <0.22 NG/ML. CKMB (test code = CKMB) <0.22 NG/ML 0.22-2.4 CK (test code = CK) 55 U/L 30-135 CKINTERP (test code = CKINTERP) NEGATIVE Negative TROPONIN I - [id number] 02:23:00* Test Item Value Reference Range Interpretation Comme nts TROP-I (test code = TROP-I) <0.012 ng/ml 0.012-0.033 INTERPRETI VE DATA A TROPONIN OF LESS THAN 0.034 NG/ML IS CONSIDERED NEGATIVE A TROPONIN OF 0.034 - 0.119 NG/ML IS CONSIDERED GRAYZONE A TROPONIN =/> 0.120 NG/ML IS CONSIDERED POSITIVE [id number] 02:17:00* Test Item Value Reference Range Interpretation Comme nts LIPASE (test code = LIPA) 84 U/L 23-300 BUV0633-64-14 02:17:00* Test Item Value Reference Range Interpretation Comme [facility] SODIUM (test code = NA) 142 MMOL/L 137-145 K+ (test code = KSERUM) 3.8 MMOL/L 3.5-5.1 PLEASE NOTE NEW REFERENCE RANGE(S) IN EFFECT EFFECTIVE 01/30/2010 - NEW ANALYZER ([employer] [facility]) CHLORIDE (test code = CL) 105 MMOL/L 98-107 CO2 (test code = CO2) 27 MMOL/L 22-30 BUN (test code = BUN) 9 MG/DL 7-17 CREA (test code = CREA) 0.5 MG/DL 0.7-1.2 L GLUCOSE (test code = GLUCOSE) 142 MG/DL 70-99 H Fasting glucos e normal <100 MG/DL- [employer] recommendation CALCIUM (test code = [...] of >90 mL/min/1.73m2 is considered normal. D-DIMER, IVCLQECWSGTZ1038-56-96 02:14:00* Test Item Value Reference Range Interpretation Comme [facility] D-DIMER (test code = DDIMER) 0.29 ug/mL [...] HCG LOT # (test code = UHCGLOT) [id number] HCG EXPIRATION DATE (test code = UHCGEXP) 05-27-20 [id number] 02:01:00* Test Item Value Reference Range Interpretation [...] 1.000-1.025 UAMICRO (test code = UAMICRO) NO [id number] 01:50:00* Test Item Value Reference Range Interpretation [...] code = NEUT) 4.2 K/UL 1.2-7.2 PATHOLOGY [id number] 08:19:00TISSUE CONSULTATION REPORTBAPTCONNALLY MEMORIAL MEDICAL CENTERDEPARTMENT OF PATHOLOGYP.[address], [place] [id number] [facility] ISH ROJAS M.D.ROBERT L. HUTTON, M.D.CHARLES E. BURNS, M.D. ____Patient: YANETHKRISTALelia Ornelas 1995 23 FRoom:Hosp#: [id number] Ordering Physician: CAROLYN VALLE Rec.:08/31/2018Date of Proc.: 08/31/2018Lab No.: [id number] FINAL ANATOMIC DIAGNOSIS:STOMACH, BIOPSY:- CHRONIC INACTIVE GASTRITIS [...] one block wraps.PATHOLOGIST: Mane Ledesma Electronically Signed: 09/01/[id number] 07:46:00* Test Item Value Reference Range Interpretation Comme nts SODIUM (test code = NA) 142 MMOL/L 137-145 K+ (test code = KSERUM) 3.4 MMOL/L 3.5-5.1 L PLEASE NOTE NEW REFERENCE RANGE(S) IN EFFECT EFFECTIVE 01/30/2010 - NEW ANALYZER ([facility] 5600) CHLORIDE (test code = CL) 105 MMOL/L 98-107 CO2 (test code = CO2) 26 MMOL/L 22-30 BUN (test code = BUN) 6 MG/DL 7-17 L CREA (test code = CREA) 0.6 MG/DL 0.7-1.2 L GLUCOSE (test code = GLUCOSE) 87 MG/DL 70-99 Fasting glucos e normal <100 MG/DL- [employer] recommendation CALCIUM (test code = [...] GFR of >90 mL/min/1.73m2 is considered normal. [id number] 07:19:00* Test Item Value Reference Range Interpretation [...] = NEUT) 4.6 K/UL 1.2-7.2 ACUTE HEPATITIS [id number] 03:34:00* Test Item Value Reference Range Interpretation [...] be sent to reference lab for confirmation. [id number] 17:52:00* Test Item Value Reference Range Interpretation Comme nts SODIUM (test code = NA) 141 MMOL/L 137-145 K+ (test code = KSERUM) 4.0 MMOL/L 3.5-5.1 PLEASE NOTE NEW REFERENCE RANGE(S) IN EFFECT EFFECTIVE 01/30/2010 - NEW ANALYZER ([employer] [facility]) CHLORIDE (test code = CL) 103 MMOL/L 98-107 CO2 (test code = CO2) 29 MMOL/L 22-30 BUN (test code = BUN) 7 MG/DL 7-17 CREA (test code = CREA) 0.5 MG/DL 0.7-1.2 L GLUCOSE (test code = GLUCOSE) 120 MG/DL 70-99 H Fasting glucos e normal <100 MG/DL- [employer] recommendation CALCIUM (test code = [...] GFR of >90 mL/min/1.73m2 is considered normal. [id number] 17:52:00* Test Item Value Reference Range Interpretation Comme nts LIPASE (test code = LIPA) 65 U/L 23-300 [id number] 17:33:00* Test Item Value Reference Range Interpretation [...] = NEUT) 6.1 K/UL 1.2-7.2 CT ABDOMEN/PELVIS [id number] 07:30:00[facility] [place] [id number] IMAGING REPORTPatient Name: DEYSI ALVAREZ BDate of Service: 11-28-2569Ngp: 23 Sex: F Order #: 600 Room: ERSDOB:1995 X-Ray Number: [id number] Record Number: [id number] Hospital Number: [id number] Physician: KIERA DELA CRUZ Physician: FRANK ASH [...] 7:28 AMLegally authenticated by TORRIE CARRION 2018-08-30 07:28:38ZWYGRXWEZF8064-38-26 21:58:00* Test Item Value Reference Range Interpretation [...] HCG LOT # (test code = UHCGLOT) [id number] HCG EXPIRATION DATE (test code = UHCGEXP) 07-20 [id number] 19:28:00* Test Item Value Reference Range Interpretation Comme nts LIPASE (test code = LIPA) 48 U/L 23-300 [id number] 19:28:00* Test Item Value Reference Range Interpretation Comme nts SODIUM (test code = NA) 140 MMOL/L 137-145 K+ (test code = KSERUM) 4.0 MMOL/L 3.5-5.1 PLEASE NOTE NEW REFERENCE RANGE(S) IN EFFECT EFFECTIVE 01/30/2010 - NEW ANALYZER ([employer]) CHLORIDE (test code = CL) 102 MMOL/L 98-107 CO2 (test code = CO2) 27 MMOL/L 22-30 BUN (test code = BUN) 10 MG/DL 7-17 CREA (test code = CREA) 0.6 MG/DL 0.7-1.2 L GLUCOSE (test code = GLUCOSE) 84 MG/DL 70-99 Fasting glucos e normal <100 MG/DL- [employer] recommendation CALCIUM (test code = [...] GFR of >90 mL/min/1.73m2 is considered normal. [id number] 19:21:00* Test Item Value Reference Range Interpretation [...] = NEUT) 8.3 K/UL 1.2-7.2 H PATHOLOGY [id number] 09:33:00TISSUE CONSULTATION REPORTBAPTCONNALLY MEMORIAL MEDICAL CENTERDEPARTMENT OF PATHOLOGYP.[address] [address] ISH PIRES M.D.ROBERT L. HUTTON, M.D.CHARLES E. BURNS, M.D. ____Patient: YANETH DEYSI B 1995 23 FRoom:Hosp#: [id number] Ordering Physician: JAUN MERAZ Rec.: 08/26/2018Date of Proc.: 08/25/2018Lab No.: [id number] PRE-OPERATIVE DIAGNOSIS:Chronic cholecystitisFINAL ANATOMIC DIAGNOSIS:GALLBLADDER, CHOLECYSTECTOMY: CHRONIC [...] cassette.PATHOLOGIST: Roberto Genao Electronically Signed: 08/29/2018ABDOMEN 2 [id number] 07:15:[address] [address]MOHSCUCGFK IMAGING REPORTPatient Name: DEYSI ALVAREZ BDate of Service: 83-38-5342Ewl: 23 Sex: F Order #: 600 [facility]1995 [facility] Number: [id number] Record Number: [id number] Hospital Number: [id number] Physician: Marbella THOMAS Physician: Radha THOMAS 2 [...] HCG LOT # (test code = UHCGLOT) [id number] HCG EXPIRATION DATE (test code = UHCGEXP) 01-14 [id number] 05:07:00* Test Item Value Reference Range Interpretation [...] (test code = URMUCOUS) MUCH /LPF NONE [id number] 04:11:00* Test Item Value Reference Range Interpretation [...] NEUT) 4.3 K/UL 1.2-7.2 BMP, BASIC METABOLIC [id number] 04:03:00* Test Item Value Reference Range Interpretation Comme nts SODIUM (test code = NA) 141 MMOL/L 137-145 K+ (test code = KSERUM) 4.1 MMOL/L 3.5-5.1 PLEASE NOTE NEW REFERENCE RANGE(S) IN EFFECT EFFECTIVE 01/30/2010 - NEW ANALYZER ([facility] 56[facility]) CHLORIDE (test code = CL) 111 MMOL/L 98-107 H CO2 (test code = CO2) 22 MMOL/L 22-30 BUN (test code = BUN) 11 MG/DL 7-17 CREA (test code = CREA) 0.5 MG/DL 0.7-1.2 L GLUCOSE (test code = GLUCOSE) 112 MG/DL 70-99 H Fasting glucos e normal <100 MG/DL- [employer] recommendation CALCIUM (test code = CABLOOD) 8.7 MG/DL 8.4-10.2 GFR (test code = GFR) 166 mL/min/1.73m2 A GFR of >90 mL/min/1.73m2 is considered normal. LIVER [id number] 04:03:00* Test Item Value Reference Range Interpretation [...] code = ALT) 428 U/L 13-69 H [id number] 04:03:00* Test Item Value Reference Range Interpretation Comme nts LIPASE (test code = LIPA) 157 U/L 23-300 [id number] 13:45:00* Test Item Value Reference Range Interpretation Comme nts SODIUM (test code = NA) 139 MMOL/L 137-145 K+ (test code = KSERUM) 4.2 MMOL/L 3.5-5.1 PLEASE NOTE NEW REFERENCE RANGE(S) IN EFFECT EFFECTIVE 01/30/2010 - NEW ANALYZER ([facility] 56[facility]) CHLORIDE (test code = CL) 105 MMOL/L 98-107 CO2 (test code = CO2) 26 MMOL/L 22-30 BUN (test code = BUN) 8 MG/DL 7-17 CREA (test code = CREA) 0.5 MG/DL 0.7-1.2 L GLUCOSE (test code = GLUCOSE) 105 MG/DL 70-99 H Fasting glucos e normal <100 MG/DL- [employer] recommendation CALCIUM (test code = [...] GFR of >90 mL/min/1.73m2 is considered normal. [id number] 12:43:00* Test Item Value Reference Range Interpretation [...] 9.2 K/UL 1.2-7.2 H US LIMITED ABD [id number] 07:27:[address] [id number] IMAGING REPORTPatient Name: DEYSI ALVAREZ BDate of Service: 69-91-4249Crx: 23 Sex: F Order #: 600 [facility]1995 [facility] Number: [id number] Record Number: [id number] Hospital Number: [id number] Physician: Marbella THOMAS Physician: Ladarius THOMAS upper [...] the Emergency Department by the [facility] service nearthe time of the exam.Electronically Signed By: Arturo Moore M.D., 08/25/2018 7:25 AMLegally authenticated by JOY FRANCO 2018-08-25 07:25:[id number] 07:14:00* Test Item Value Reference Range Interpretation Comme nts BLOOD TYPE (test code = TYPE) A Rh Negative ANTIBODY SCREEN (test code = SCREEN) NEGATIVE NEGATIVE [id number] 03:58:00* Test Item Value Reference Range Interpretation Comme nts LIPASE (test code = LIPA) 57 U/L 23-300 LIVER [id number] 03:58:00* Test Item Value Reference Range Interpretation [...] (test code = ALT) 35 U/L 13-69 [id number] 03:52:00* Test Item Value Reference Range Interpretation [...] 1.000-1.025 UAMICRO (test code = UAMICRO) NO [id number] 03:48:00* Test Item Value Reference Range Interpretation [...] code = NEUT) 6.1 K/UL 1.2-7.2 ISTAT [id number] 03:45:00* Test Item Value Reference Range Interpretation Comme nts ISTAT HCG (test code = ISHCG) <5.0 IU/L A value of less than or equal to <5 IU/L is considered NEGATIVE. A value between 5 IU/L and 25 IU/L is considered INDETERMINATE. A value of >25 IU/L is considered POSITIVE. ISTAT CHEM [id number] 03:25:00* Test Item Value Reference Range Interpretation [...] code = ISTANGAP) 19 MMOL/L CT ABDOMEN/PELVIS [id number] 07:45:[address] [id number] IMAGING REPORTPatient Name: DEYSI ALVAREZ BDate of Service: 61-17-0244Tyi: 23 Sex: F Order #: 700 Room[facility]: 1995 X-Ray Number: [id number] Record Number: [id number] Hospital Number: [id number] Physician: LASHAWN ALIOrdering Physician: RADHA HOLLINS abdomen and pelvis.History: Flank, and/orback pain.Technique: Entirely unenhanced CT axial images of the abdomen and pelviswith sagittal andcoronal reformatted images were reviewed.Note: Neither IV nor oral contrast was utilized. The lack of utilization ofcontrast in abdominal imaging limits the assessment.This CT exam was performed using one or more of the following dosereduction techniques: [...] 7:43 AMLegally authenticated by CHRISTOPH Rodriguez 2018-08-21 07:43:[id number] 22:43:00* Test Item Value Reference Range Interpretation Comme nts LIPASE (test code = LIPA) 65 U/L 23-300 LIVER [id number] 22:43:00* Test Item Value Reference Range Interpretation [...] ALT) 28 U/L 13-69 BMP, BASIC METABOLIC [id number] 22:43:00* Test Item Value Reference Range Interpretation Comme nts SODIUM (test code = NA) 140 MMOL/L 137-145 K+ (test code = KSERUM) 3.9 MMOL/L 3.5-5.1 PLEASE NOTE NEW REFERENCE RANGE(S) IN EFFECT EFFECTIVE 01/30/2010 - NEW ANALYZER ([facility]) CHLORIDE (test code = CL) 109 MMOL/L 98-107 H CO2 (test code = CO2) 23 MMOL/L 22-30 BUN (test code = BUN) 8 MG/DL 7-17 CREA (test code = CREA) 0.4 MG/DL 0.7-1.2 L GLUCOSE (test code = GLUCOSE) 96 MG/DL 70-99 Fasting glucos e normal <100 MG/DL- [employer] recommendation CALCIUM (test code = CABLOOD) 9.3 MG/DL 8.4-10.2 GFR (test code = GFR) 214 mL/min/1.73m2 A GFR of >90 mL/min/1.73m2 is considered normal. [id number] 22:07:00* Test Item Value Reference Range Interpretation [...] HCG LOT # (test code = UHCGLOT) [id number] HCG EXPIRATION DATE (test code = UHCGEXP) 01-26-20 [id number] 22:03:00* Test Item Value Reference Range Interpretation [...] complete the procedure, cardiovascular complications such as OK, stroke, arrhythmia, and . Informed consent obtained. Izzy Joseph DO Gastroenterology PGY 5 Pager#[phone] Associated attestation - Darian Begum MD - 12/09/2023 1:15 PM CDT I personally examined the patient on 12/09/[address] Joseph's resident/fellow note as written. I actively participated in the decision-making process. Please see the resident/fellow's note for additional details. Darian Begum MD [facility] Fin[employer] Saw Operator Gastroenterology -GASTROENTEROLOGY [facility] Notes Date/Time Note Provider Source 2024-02-14 15:08:40 Appointment is scheduled. Justo Mancini [facility] 2024-02-14 13:19:20 Patient has appointment scheduled for 02/25/24, does she need to come in earlier than that date? [facility] 2024-02-14 11:28:53 Suggest pt come into office this week to start control if menses started. SHAWNA Burgess 02/14/2024 11:31 AM [facility] 2024-02-14 08:56:42 Deysi Alvarez is a 28 year old female Pt is calling to get a b/c med called out due to her being on her period. Ubaldo Alvarez [facility] 2024-02-01 16:49:10 Patient is scheduled 02/09/24. Sagar Byrnes RN 02/01/2024 4:49 PM Sagar Byrnes RN [facility] 2023-12-28 10:03:03 Please review and advise on dosage change. T Maria Del Carmen Royal RN [facility] 2023-12-23 10:15:00 Images from the original note were not included. Venipuncture collection performed by clean technique on the left anticubitus. Total of 1 attempts were made. Slight pressure and a bandage/dressing were applied to the site(s). The patient experienced no complications. The following specimens were processed according to instructions and sent to [facility] laboratories per lab order on 12/23/2023 : LT BLUE SST 1 RED LAV PPT DK GREEN (LiHep) DK GREEN (SodH) REGAN DK BLUE (K2) DK BLUE (S) ACD Blood Culture NIPT/NTD [facility] 2023-12-22 16:38:38 Called and spoke to patient about lab results. Will redraw labs tomorrow morning to re-address TSH before filling her prescription. [facility] 2023-12-22 10:17:16 Please review and advise on medication dosage. T Maria Del Carmen Royal RN [facility] 2023-12-21 14:45:00 Images from the original note were not included. Venipuncture collection performed by clean technique on the right anticubitus. Total of 1 attempts were made. Slight pressure and a bandage/dressing were applied to the site(s). The patient experienced no complications. The following specimens were processed according to instructions and sent to [facility] laboratories per lab order on 12/21/2023 : LT BLUE SST 2 RED LAV PPT DK GREEN (LiHep) DK GREEN (SodH) REGAN DK BLUE (K2) DK BLUE (S) ACD Blood Culture NIPT/NTD [facility] 2023-11-26 14:21:46 Patient contacted for pre op [...] with arrival time. Pre op call complete. T Florence Gomes RN [facility] 2023-11-26 14:03:44 Preop call attempted. Patient was unavailable. Voice message left on patients voicemail. Patient instructed to return call and confirm appointment. T [facility] 2023-11-04 13:00:00 Images from the original note [...] processed according to instructions and sent to [facility] laboratories per lab order on 11/04/2023: LT BLUE SST 2 RED LAV 1 PPT DK GREEN (LiHep) DK GREEN (SodH) REGAN DK BLUE (K2) DK BLUE (S) ACD Blood Culture NIPT/NTD [facility] 2023-10-27 11:34:51 I called patient and relayed provider's lab result remarks and msg that CT has been ordered and to go to ED if abd pain worsens before getting CT. Isauro Hernandez RN [facility] 2023-10-27 11:16:41 Addressed in separate message to you. [facility] 2023-10-27 11:14:49 Inform patient that AST and ALT are improving. GGT which is also a marker of liver inflammation is mildly elevated. Lipase is normal which rules out acute pancreatitis. Hepatitis A testing is negative. If abdominal pain continues, CT abdomen has been ordered to evaluate this. If pain gets worse before CT scan can be done, come to ED. T [facility] 2023-10-27 10:10:30 Dr. Pennington's reply to patient sent to patient via WhoJam msgs. Isauro Hernandez RN [facility] 2023-10-27 09:15:38 Inform patient that AST and ALT are improving. GGT is mildly elevated and should improve if liver inflammation resolves. OCP's can cause liver inflammation in some patients but for mild liver inflammation like this, I would not ask her to stop it. If abdominal pain continues, she can either wait for CT scan to be done or go to ED. [facility] 2023-10-26 13:32:17 Deysi Alvarez is a 28 year old female is calling to discuss results of her labs. Jojo Acosta [facility] 2023-10-25 16:43:34 Deysi Alvarez is a 28 year old female is calling stating she was seen today but the pain in her left side has not subsided. She would like a call to also review her labs. Jojo Acosta [facility] 2023-10-25 11:30:00 Images from the original note were not included. Venipuncture collection performed by clean technique on the right anticubitus. Total of 1 attempts were made. Slight pressure and a bandage/dressing were applied to the site(s). The patient experienced no complications. The following specimens were processed according to instructions and sent to [facility] laboratories per lab order on 10/25/2023 : LT BLUE SST 1 RED LAV 1 PPT DK GREEN (LiHep) DK GREEN (SodH) REGAN DK BLUE (K2) DK BLUE (S) ACD Blood Culture NIPT/NTD Patient has been identified by and name and was provided with cup, antiseptic towelette, and clean catch instructions. 1 urine specimen(s) sent. Unpreserved 1 Urine Culture Aptima tube Other urine [facility] 2023-10-20 15:54:[address] pennington 10-25-23 11am Ivette Castro V [facility] 2023-10-20 09:37:35 Deysi Alvarez is a 28 year old female Pt calling requesting to schedule an appt due to liver enzymes being elevated provider does not have anything available coming up and no schedule past November. Please call the pt to discuss an appt. Please advise. Adeola Garcia [facility] 2023-10-16 17:52:58 Patient given discharge instructions on fatigue. No prescriptions. Advised to follow up with pcp. Pt left ER ambulatory, no signs of distress. [facility] 2023-10-16 16:01:28 Missed IV attempt to left AC, blood collected. Pt given sandwich and chocolate pudding. T [facility] 2023-10-16 15:15:42 Patient states: "I feel super shaky, like I'm going to pass out. I feel like I'm not even awake. It feels very foggy. It's been going on for 2 days" Pmhx: Hypothyroidism, iron deficiency anemia, BGL in triage 77. Reports doing low carb diet over past 2 weeks. Pt given juice. Tigist Loyola RN [facility] 2023-10-14 16:37:43 Call placed, attempt #3 with no answer. Will await call back, will close encounter. Lucero Blanchard RN [facility] 2023-10-13 16:39:13 Call placed, attempt #2 with no answer. T [facility] 2023-10-13 13:21:53 Images from the original note were not included. Notes: lisinopriL 10 mg tablet Sig: Take 1 tablet by mouth in the morning. Disp: Not specified Refills: Start: 10/13/2023 Class: eRX Last ordered: 6 days ago (10/07/2023) by [place] Doctor Unassigned Cardiovascular: SAMREEN Inhibitors Egbejn4010/13/2023 01:19 PM Protocol Details Valid encounter within last 12 months K in normal range and within 360 days Cr in normal range and within 360 days To be filled at: [id number] - [place] - [address] AT [employer] Last Refilled: I don't see this as being prescribed by our office. Recent Visits Date Type Provider Dept 10/01/23 Office Visit Dago Ibarra NP [facility] 09/06/23 Office Visit Liberty Watson MD [facility] 06/16/23 Office Visit Liberty Watson MD [facility] 06/02/23 Office Visit Liberty Watson MD [facility] 05/12/23 Office Visit Liberty Watson MD [facility] Showing recent visits within past 540 days with a meds authorizing provider and meeting all other requirements Future Appointments Date Type Provider Dept 12/23/23 Appointment Liberty Watson MD [facility] Showing future appointments within next 150 days with a meds authorizing provider and meeting all other requirements Mary Maldonado MA [facility] - Health 2023-10-13 13:19:24 Copied from [facility] #[id number]. Topic: Clinical - Referral >> Oct 13, 2023 1:16 PM Patient Program Paraprofessional wrote: Deysi Alvarez is a 28 year old female pt would like to know where she can go for her Hematology. Pt states [facility] is not accepting pt at this time and the other location the pt was referred to does not accept her insurance. Pt would like to know does she have to go or can it be managed in the clinic. Pt is also asking for a refill of lisinopriL 10 mg tablet Iona Ritchie 10/13/23 1:18 PM Iona Ritchie [facility] 2023-10-12 11:00:47 Call placed to number listed, no answer. [facility] 2023-10-12 10:27:14 Deysi Alvarez is a 28 year old female Poonam with [facility] called stating they still need demographics for the patient. Please contact [phone] Eduardo Davison [facility] 2023-10-07 16:25:46 B12 is a water soluble vitamin . The body is can easily clear it without quick concern for accumulations. Will monitor and recheck it in few months T [facility] 2023-10-07 15:33:36 Pt with concerns of elevated B-12, states was reading on [employer] could be caused by liver problems. Informed pt I have forwarded her WhoJam message with this concern and awaiting response as is seeing pts. Informed pt once she responds we will let her know. Pt states has not taken any vitamins to elevate levels. Will forward to provider for review. Lucero Blanchard RN [facility] 2023-10-07 14:07:21 Copied from [facility] #[id number]. Topic: Clinical - Results >> Oct 07, 2023 2:06 PM Patient Program Paraprofessional wrote: Pt called requesting to speak with Dr. Plaza in regards to her most recent lab work. She has questions. Please advise. Call back number:[phone] Jessica Beaulieu [facility] 2023-10-07 10:00:00 Images from the original note were not included. Venipuncture collection performed by clean technique on the left anticubitus. Total of 1 attempts were made. Slight pressure and a bandage/dressing were applied to the site(s). The patient experienced no complications. The following specimens were processed according to instructions and sent to [facility] laboratories per lab order on 10/07/2023 : LT BLUE SST 1 RED LAV PPT DK GREEN (LiHep) DK GREEN (SodH) REGAN DK BLUE (K2) DK BLUE (S) ACD Blood Culture NIPT/NTD [facility] 2023-10-05 15:02:27 Referral faxed. [facility] 2023-10-05 13:51:25 Deysi Alvarez is a 28 year old female that is requesting a referral for an external hematology clinic due to the [facility] hematology being backed up until January. [facility] at [address] [address] fax for anemia iron deficiency Kelli Lopez [facility] 2023-10-05 10:53:52 Referral for Hematology has been placed. [facility] 2023-10-04 15:21:26 Called patient and discussed labs and referrals. [facility] 2023-10-04 08:18:24 Forwarding to provider for review of labs and recommendations. Lcuero Blanchard RN [facility] 2023-10-01 15:15:00 Images from the original note were not included. Venipuncture collection performed by clean technique on the right anticubitus. Total of 1 attempts were made. Slight pressure and a bandage/dressing were applied to the site(s). The patient experienced no complications. The following specimens were processed according to instructions and sent to [facility] laboratories per lab order on 10/01/2023: LT BLUE SST 3 RED LAV 1 PPT DK GREEN (LiHep) DK GREEN (SodH) REGAN DK BLUE (K2) DK BLUE (S) ACD Blood Culture NIPT/NTD [facility] 2023-09-21 15:45:29 Please let patient know that I can increase her Levothyroxine dose from 125 mcg to 137 mcg. I will send her prescription to her local pharmacy. For any further concerns about anemia, she should consult with her PCP. Charlene Dennis NP [facility] 2023-09-21 15:40:43 Patient recently seen for follow up on 09/07/23. Will route to provider to review and advise. Nubia Proctor LVN [facility] 2023-09-14 14:57:13 Images from the original note were not included. Routed to provider for review. Unable to refill per ambulatory refill guidelines. Notes: DULoxetine 60 mg capsule Possible duplicate: Hover to review recent actions on this medication Sig: Take 1 capsule by mouth in the morning. Disp: Not specified Refills: Start: 09/14/2023 Class: eRX Non-formulary Last ordered: 4 months ago (05/12/2023) by [place] Doctor Unassigned Neuropathic Pain Tchtoc4009/14/2023 12:41 PM Protocol Details Manual Review: Verify no changes in dose in the last 3 months Valid encounter within last 12 months To be filled at: [facility][id number] - [place], [place] - [address] AT [employer] Last Refilled: 07/2023 Recent Visits Date Type Provider Dept 09/06/23 Office Visit Liberty Watson MD [facility] 06/16/23 Office Visit Liberty Watson MD [facility] 06/02/23 Office Visit Liberty Watson MD [facility] 05/12/23 Office Visit Liberty Watson MD [facility] Showing recent visits within past 540 days with a meds authorizing provider and meeting all other requirements Future Appointments Date Type Provider Dept 12/23/23 Appointment Liberty Watson MD [facility] Showing future appointments within next 150 days with a meds authorizing provider and meeting all other requirements Mary Maldonado MA [facility] 2023-09-14 12:41:15 2nd refill request from pharmacy. Genesis Vregara [facility] 2023-09-09 10:50:40 Images from the original note were not included. Routed to provider for review. Unable to refill per ambulatory refill guidelines. Notes: DULoxetine 60 mg capsule Sig: Take 1 capsule by mouth in the morning. Disp: Not specified Refills: Start: 09/09/2023 Class: eRX Non-formulary Last ordered: 4 months ago (05/12/2023) by [place] Doctor Unassigned Neuropathic Pain [id number]/09/2023 08:11 AM Protocol Details Manual Review: Verify no changes in dose in the last 3 months Valid encounter within last 12 months To be filled at: [id number] - [place], [place] - [address] AT [facility] [employer] Last Refilled: 07/2023 Recent Visits Date Type Provider Dept 09/06/23 Office Visit Liberty Watson MD [facility] 06/16/23 Office Visit Liberty Watson MD [facility] 06/02/23 Office Visit Liberty Watson MD [facility] 05/12/23 Office Visit Liberty Watson MD [facility] Showing recent visits within past 540 days with a meds authorizing provider and meeting all other requirements Future Appointments Date Type Provider Dept 12/23/23 Appointment Liberty Watson MD [facility] Showing future appointments within next 150 days with a meds authorizing provider and meeting all other requirements Mary Maldonado MA [facility] 2023-09-09 08:10:19 Images from the original note were not included. Suhas Mccarthy [facility] 2023-09-08 18:53:07 Called patient and spoke to [...] of the time, take one tablet daily. [facility] 2023-09-08 15:58:06 Responded to this is [employer] message. [facility] 2023-09-08 15:45:51 Deysi Alvarez is a 28 year old female Pt is calling to speak with provider regarding trying phentermine medication, Pt states, she would like to try since her BP has been under control, Please advise Elvia Davison [facility] 2023-09-08 15:38:33 Called patient and left a message about her concern about pancreatitis and how Zepbound is much safer than Phentermine. I will also send her a message through [employer] [facility] 2023-09-08 15:34:15 I responded to this in a [employer] message. [facility] 2023-09-08 14:59:33 Patient called with concerns about taking Zepbound due to grandmother of pancreatic cancer. 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 Nubia Proctor LVN [facility] 2023-09-08 14:30:42 Deysi Alvarez is a 28 year old female patient calling back has decided not to take Zepbound and is requesting RX for Phentermine instead. Please call [phone] Tosha Foley [facility] 2023-09-08 11:24:48 Provided information for patient through message on [employer] Nubia Proctor LVN [facility] 2023-09-08 10:06:13 This was already sent to [facility] outpatient pharmacy by Dr Plaza. Closing encounter Nubia Proctor LVN [facility] 2023-09-08 09:11:22 Deysi Alvarez is a 28 year old female patient calling to make sure that Zepbound 7.5 mg/0.5 mg is safe for her to take, maternal grandmother with Pancreatic Cancer Please call [phone] Tosha Foley [facility] 2023-09-08 08:54:24 Attempted to contact patient. No answer, VM left. [employer] message sent. Sagar Byrnes RN 09/08/2023 8:54 AM Sagar Byrnes RN [facility] 2023-09-07 17:54:54 Addended by: LIBERTY ANSARI on: 09/07/2023 05:54 PM Modules accepted: Orders [facility] 2023-09-07 17:54:32 1. Class 1 obesity due [...] 7.5mg qWeek. Dispense: 4 mL; Refill: 1 T [facility] 2023-09-07 16:19:08 Patient is wanting to have IUD is currently on control pills want to know if Dr Wall thinks this is good option for her. Yanci Goss [facility] 2023-09-07 15:56:54 Deysi Alvarez is a 28 year old female Patient requesting tirzepatide 5 mg/0.5 mL subcutaneous injection and tirzepatide 2.5 mg/0.5 mL subcutaneous injection be sent to [facility] - [address] [facility], [place] [address] [facility] [place] [address] Nicole Armstrong [facility] 2023-09-07 10:37:51 Hello, The Mounjaro was not covered due to using for weight loss and not type 2 diabetes. I did speak with Ms. Alvarez and she would like to try Zepbound. She is aware it is not covered, but would like to use the copay card. If a prescription for Zepbound could please be sent to [facility]. Please let me know if there are any questions or concerns. Thank you Maria Del Carmen Byrnes [facility] 2023-09-06 16:15:00 Images from the original note were not included. Venipuncture collection performed by clean technique on the right anticubitus. Total of 1 attempts were made. Slight pressure and a bandage/dressing were applied to the site(s). The patient experienced no complications. The following specimens were processed according to instructions and sent to [facility] laboratories per lab order on 09/06/2023 : LT BLUE SST 1 RED LAV PPT DK GREEN (LiHep) DK GREEN (SodH) REGAN DK BLUE (K2) DK BLUE (S) ACD Blood Culture NIPT/NTD [facility] 2023-09-06 16:02:08 Pt at lab to get [...] TSH and T4 Free orders placed per [facility] plan. T [facility] 2023-09-06 15:35:10 Copied from [facility] #[id number]. Topic: Clinical - Medical Advice >> Sep 06, 2023 3:34 PM Patient Program Paraprofessional wrote: Deysi Alvarez is a 28 year old female Pt seen today and busPIRone 7.5 mg tablet was not called in. Please send to Pharmacy. T [facility] 2023-08-23 15:00:28 EMILY 05/14/23 NOV 09/07/23 Per [facility] note: START LT4 125 mcg early in the AM since she reports the 112 mcg is not helping her. 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 Notify the COCP has been prescribed for her Mirian Wall MD T [facility] 2023-02-04 10:44:26 Formatting of this n ote might be different from the original. Duplicate message. FLORENCE SALINAS RN 02/04/2023 10:44 AM [facility] 2022-07-04 12:47:00 [facility] ([facility]) EMERGENCY PROVIDER REPORT REPORT#:[id number] REPORT STATUS: Signed DATE:07/04/22 TIME: 1247 PATIENT: DEYSI ALVAREZ UNIT #: [id number] ROOM/BED: AGE: 27 SEX: F PCP PHYS: [...] 1118 Temp 36.8 07/04 1118 Pulse 92 01/07 1118 Resp 07/04 Last Documented: Result Date Time Pulse Ox [...] % (Auto) (14.5 - 29.7 %) 26.6 Edwards % (Auto) (3.6 - 10.2 %) 7.0 Eos % (Auto) (0.0 - 3.0 %) 1.0 Baso % (Auto) (0.1 - 0.9 %) 0.4 Neut # (Auto) (K/mm3) 4.7 Lymph # (Auto) (K/mm3) 1.9 Edwards # (Auto) (K/mm3) 0.5 Eos # (Auto) (K/mm3) 0.07 Baso # (Auto) (K/mm3) 0.0 Miscellaneous Maternal Serum HCG 61147 Urines Urine Color (YELLOW) YELLOW Urine Appearance (CLEAR) CLOUDY H Urine pH (5 - 9) 8.0 Ur Specific [place] (1.001 - 1.035) 1.020 Urine Protein (NEGATIVE) [...] Report Impression - Status: SIGNED Entered: 07/04/2022 6100 IMPRESSION: 1. Single live intrauterine gestation corresponding [...] Room air 07/04 111 Temp 36.8 07/04 1118 Pulse 92 07/04 1118 Resp 18 07/04 1118 All vital signs available at the time of this entry have been reviewed. Condition Stable, Improved Clinical Impression Clinical Impression Primary Impression: Subchorionic bleed Time of Impression 1625 Disposition Decision Discharge )( Discharged to Home Yes )( Time 1625 )( Date 07/04/22 Discharge/Care Plan Patient Instructions Bleeding During Early at 0639 [facility] #:[id number] END OF REPORT [facility] 2018-09-28 15:17:04 [place] [address] Patient Name: DEYSI ALVAREZ Patient#: [id number] Admission Date: 08/30/2018 Discharge Date: 08/31/2018 Age/Gender: 23/F Date of : 1995 HSSV//BED: OBE/291/A Admitting Phys: IUMY-SURGERY [facility] DISCHARGE SUMMARY DATE OF ADMISSION: 08/30/2018 [...] cholecystectomy and was treating the reflux with snmu-gdn-gbwrjgx medication. Her liver function tests were elevated, [...] Nacho Meraz MD TT: 09/28/2018 15:17:04 IT/MODL /[id number] Electronically Authenticated by: Nacho Stephens MD on 10/03/2018 06:55 AM CDT Legally authenticated by KT AHMADI 2018-10-03 06:55:57 [facility] 2018-08-31 11:47:[address] [address] Patient Name: DEYSI ALVAREZ Patient#: [id number] Admission Date: 08/30/2018 Date of : 1995 Age/Gender: 23/F HSSV/RM/BED: [facility]/A Admitting Phys: Nacho Meraz MD OPERATIVE NOTE [...] voiced. Johan Valle DO TT: 08/31/2018 11:47:50 [employer]/MODL /[id number] cc: Nacho Meraz MD Mason Lyon MD Electronically Authenticated by: Johan Valle D.O. 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 She had an ultrasound recently, on [...] follow. Johan Valle DO TT: 08/31/2018 03:51:38 [employer]/JUAN MANUELL /[id number] Electronically Authenticated by: Johan Valle D.O. on 08/31/2018 01:28 PM DESKTOP MANAGER Legally authenticated by LEONARD PRADO 2018-08-31 01:28:30 JOHAN VALLE GEORGIE 2018-08-26 13:02:51 [place] [address] Patient Name: DEYSI ALVAREZ Patient#: [id number] Admission Date: 08/25/2018 Date of : 1995 Age/Gender: 23/F HSSV/RM/BED: OBE/258/A Admitting Phys: Esequiel Galvan MD OPERATIVE NOTE DATE OF SURGERY: 08/25/2018 SURGEON: Nacho Meraz MD BLOCK AND CASE MAKER: None. PREOPERATIVE DIAGNOSIS Acute cholecystitis. POSTOPERATIVE DIAGNOSIS [...] infraumbilical port site with 0 Vicryl UR6 hrqedv-of-rrcki stitch. Skin was closed with 4-0 Monocryl, Dermabond. Lap count and instrument count were correct. Transferred to recovery, extubated, under stable condition. Nacho Meraz MD TT: 08/26/2018 13:02:51 IT/MODL /[id number] Electronically Authenticated by: Nacho Stephens MD on 09/28/2018 02:32 PM CDT Legally authenticated by KT AHMADI 2018-09-28 02:32:05 NACHO MERAZ-DEL CASTILLO SSET 2018-08-25 10:48:53 [place] [address] Patient Name: DEYSI ALVAREZ Patient#: [id number] Admission Date: 08/25/2018 Date of : 1995 Age/Gender: 23/F HSSV/RM/BED: OBE/[facility]/A Admitting Phys: Esequiel Galvan MD [...] Esequiel Galvan MD TT: 08/25/2018 10:48:53 JOSE/ROXANNE /[id number] Electronically Authenticated by: Esequiel Galvan M.D. on 08/26/2018 08:52 AM DESKTOP MANAGER Legally authenticated by COREY IRAHETA 2018-08-26 08:52:29 ESEQUIEL GALVAN [facility] 2018-08-25 10:10:14 [place] [address] Patient Name: DEYSI ALVAREZ Patient#: [id number] Admission Date: 08/25/2018 Date of : 1995 Age/Gender: 23/F SV//BED: [facility]/A Admitting Phys: Esequiel Galvan MD CONSULTATION NOTE [...] Nacho Meraz MD TT: 08/25/2018 10:10:14 IT/MODL /[id number] Electronically Authenticated by: Nacho Stephens MD on 09/28/2018 02:32 PM CDT Legally authenticated by KT AHMADI 2018-09-28 02:32:13 [facility]
[2024-03-11 12:04] LABS: Absolute Lymphocytes (CBC) 1.5 K/uL (0.7-4.9); Absolute Monocytes 0.4 K/uL (0.1-1.3); Absolute Neutrophil 3.7 K/uL (1.8-8.0); Basophils % 0.4 % (0-1.3); Eosinophils % 0.7 % (0-4.4); Hematocrit 34.5 % (36.0-45.0); Hemoglobin 11.2 g/dL (12.0-15.0); Lymphocytes % 26.7 % (15.3-44.8); MCH 27.2 pg (27.0-35.0); MCHC 32.5 g/dL (32.0-36.0); MCV 83.8 fL (80-100); MPV 9.4 fL (7.6-11.3); Neutrophils % 65.2 % (41.7-73.7); Platelets 223 thou/uL (152-406); RBC Red Blood Cell Count 4.12 M/uL (3.86-4.86); Red Cell Distribution Width 13.7 % (12.1-15.2)
[2024-03-11 12:06] LABS: D-Dimer 0.423 FEUug/mL (0-0.500); PT Prothrombin Time 12.3 SECONDS (9.4-12.5); Protime INR 1.1
[2024-03-11 12:27] LABS: ALT/SGPT 22 U/L (13-56); Albumin/Globulin Ratio 0.8 (1.1-1.8); Alkaline Phosphatase 61 U/L (45-117); Anion Gap 9.6 mEq/L (5.0-15.0); BUN Blood Urea Nitrogen 7 mg/dL (7-18); Bicarbonate 23 mEq/L (21-32); Bilirubin Total 0.3 mg/dL (0.2-1.0); Globulin 3.9 g/dL (2.3-3.5); Glomerular Filtration Rate 127 ml/min (=/>90); Glucose Level 81 mg/dL (74-106); Magnesium 2.1 mg/dL (1.6-2.4); NT PRO-BNP 177 pg/mL (<125); Potassium 3.6 mEq/L (3.5-5.1); Protein, Total 6.9 g/dL (6.4-8.2); Sodium Level 139 mEq/L (136-145)
[2024-03-11 12:29] LABS: AST/SGOT < 10 U/L (15-37); Bilirubin Direct < 0.2 mg/dL (0-0.2); Bilirubin Indirect, Calculated 0.1 mg/dL (0.2-0.8); Troponin High Sensitivity < 3.0 pg/mL (<58.9)
[2024-03-11] MEDS ORDERED: KETOROLAC 30 MG/ML INJ ONE (12:52)
[2024-03-11] MEDS ORDERED: ONDANSETRON 4 MG/2 ML VIAL ONE (12:52)
--- NOTE | 2024-03-11 13:23 | RAD REPORT ---
EXAM DESCRIPTION: Robbie Single View03/11/2024 1:00 pm CLINICAL HISTORY: Chest pain COMPARISON: January 2024 FINDINGS: The lungs appear clear of acute infiltrate. The heart is normal size IMPRESSION: No acute abnormalities displayed
--- NOTE | 2024-03-11 13:31 | ER ---
Nurse's Notes [facility] Name: Anita Alvarez Age: 28 yrs Sex: Female : 1995 Arrival Date: 03/11/2024 Time: 11:26 Bed 16 Private MD: Diagnosis: Chest pain, unspecified;Palpitations Presentation: 03/11 11:42 Chief complaint: Patient states: Palpitations X1 month and chest pain onset this cm10 morning. Coronavirus screen: Client denies travel out of the [place] in the last 14 days. At this time, the client does not indicate any symptoms associated with coronavirus-19. Ebola Screen: Patient denies travel to an Ebola-affected area in the 21 days before illness onset. No symptoms or risks identified at this time. Initial Sepsis Screen: Does the patient meet any 2 criteria? HR > 90 bpm. Does the patient have a suspected source of infection? No. Patient's initial sepsis screen is negative. Risk Assessment: Do you want to hurt yourself or someone else? Patient reports no desire to harm self or others. Onset of symptoms was March 11, 2024. 11:42 Method Of Arrival: Ambulatory cm10 11:42 Acuity: RAFA 2 cm10 Triage Assessment: 11:43 General: Appears in no apparent distress. comfortable, Behavior is calm, cooperative. cm10 Neuro: No deficits noted. Level of Consciousness is awake, alert, obeys commands, Oriented to person, place, time, situation, Appropriate for age. Respiratory: No deficits noted. Airway is patent Respiratory effort is even, unlabored, Respiratory pattern is regular, symmetrical. 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 - Infectious Disease History:: Denies. - Social history:: Smoking status: Patient denies any tobacco usage or history of. Screenin:56 [facility] ED Fall Risk Assessment (Adult) History of falling in the last 3 months, mb9 including since admission No falls in past 3 months (0 pts) Confusion or Disorientation No (0 pts) Intoxicated or Sedated No (0 pts) Impaired Gait No (0 pts) Mobility Assist Device Used No (0 pt) Altered Elimination No (0 pt) Score/Fall Risk Level 0 - 2 = Low Risk Oriented to surroundings, Maintained a safe environment, Educated pt \T\ family on fall prevention, incl call for assistance when getting out of bed. Abuse screen: Denies threats or abuse. Nutritional screening: No deficits noted. Tuberculosis screening: No symptoms or risk factors identified. Assessment: 11:55 General: Appears in no apparent distress. Behavior is calm, cooperative. Pain: mb9 Complains of pain in chest Pain does not radiate. Pain currently is 5 out of 10 on a pain scale. Quality of pain is described as aching, dull, Pain began suddenly. Neuro: Higuera Agitation-Sedation Scale (RASS): 0 - Alert and Calm Level of Consciousness is awake, alert, obeys commands, Oriented to person, place, time, situation, Appropriate for age. Cardiovascular: Heart tones S1 S2 present Patient's skin is warm and dry. Rhythm is regular. Respiratory: Reports shortness of breath at rest Breath sounds are clear bilaterally. GI: Abdomen is round non-distended, Bowel sounds present X 4 quads. Patient currently denies nausea, pain. : No signs and/or symptoms were reported regarding the genitourinary system. EENT: No signs and/or symptoms were reported regarding the EENT system. Derm: Skin is intact, is healthy with good turgor, Skin is dry, Skin is normal. Musculoskeletal: Range of motion: intact in all extremities. 12:47 Reassessment: No changes from previously documented assessment. Patient and/or family mb9 updated on plan of care and expected duration. Pain level reassessed. Patient is alert, oriented x 3, equal unlabored respirations, skin warm/dry/pink. 13:46 Reassessment: No changes from previously documented assessment. Patient and/or family mb9 updated on plan of care and expected duration. Pain level reassessed. Patient is alert, oriented x 3, equal unlabored respirations, skin warm/dry/pink. Vital Signs: 11:42 BP 124 / 88; Pulse 99; Resp 16; Temp 96.6; Pulse Ox 100% on R/A; Weight 84.82 kg; cm10 Height 5 ft. 2 in. ; Pain 5/10; 12:47 BP 105 / 64; Pulse 86; Resp 18; Pulse Ox 100% on R/A; mb9 13:46 BP 104 / 63; Pulse 80; Resp 18; Pulse Ox 100% on R/A; mb9 11:42 Body Mass Index 34.20 (84.82 kg, 157.48 cm) cm10 11:42 Pain Scale: Adult cm10 ED Course: 11:29 Patient arrived in ED. ra3 11:29 [facility] sb4 11:29 Maxime Rainey MD is Attending Physician. sb4 11:40 Alta Ortiz RN is Primary Nurse. mb9 11:43 Triage completed. cm10 11:43 Arm band placed on Patient placed in an exam room, on a stretcher. EKG completed in cm10 triage. Results shown to MD. 11:43 EKG done, by ED staff, reviewed by Nicky Lentz PA-C. cm10 11:45 Initial lab(s) drawn, by mi, sent to lab. Inserted saline lock: 20 gauge in left mb9 antecubital area, using aseptic technique. Blood collected. Flushed with 10 mL NS. 11:56 Placed in gown. Bed in low position. Call light in reach. Side rails up X 1. Provided mb9 Education on: press call light if needing anything. Client placed on continuous cardiac and pulse oximetry monitoring. NIBP monitoring applied. bus driver/monitor on. Door closed. Noise minimized. Warm blanket given. Pillow given. 11:57 No provider procedures requiring assistance completed. mb9 11:57 Basic Metabolic Panel Sent. mb9 11:57 CBC with Diff Sent. mb9 11:57 LFT's Sent. mb9 11:57 Magnesium Sent. mb9 11:57 NT PRO-BNP Sent. mb9 11:57 PT-INR Sent. mb9 11:57 Troponin HS Sent. mb9 13:02 XRAY Chest (1 view) In Process Unspecified. EDMS 13:30 Arthur Ahuja MD is Referral Physician. sb4 13:46 IV discontinued, intact, bleeding controlled, No redness/swelling at site. Pressure mb9 dressing applied. Administered Medications: 12:58 Drug: Ketorolac IVP 15 mg IVP once Route: IVP; Site: left antecubital; mb9 13:47 Follow up: Response: No adverse reaction mb9 12:58 Drug: Ondansetron IVP 4 mg IVP once; over 2 minutes Route: IVP; Site: left antecubital; mb9 13:47 Follow up: Response: No adverse reaction mb9 Medication: 11:56 VIS not applicable for this client. mb9 Outcome: 13:30 Discharge ordered by . ro 13:46 Discharged to home ambulatory, mb9 13:46 Condition: stable 13:46 Discharge instructions given to patient, Instructed on discharge instructions, follow up and referral plans. Demonstrated understanding of instructions, medications, 13:47 Patient left the ED. mb9 Signatures: Dispatcher [employer] EDMS Nicky Lentz PA-C PA-C sb4 Alta Ortiz RN RN mb9 Tere Maldonado RN RN cm10 Janny Chaney ra3
--- NOTE | 2024-03-11 13:31 | EDPHYS ---
Physician Documentation [facility] Name: Anita Alvarez Age: 28 yrs Sex: Female : 1995 Arrival Date: 03/11/2024 Time: 11:26 Bed 16 Private MD: ED Physician Maxime Rainey HPI: 03/11 11:40 This 28 yrs old Female presents to ER via Unassigned with complaints of Chest Pain, sb4 Shortness Of Breath. 11:40 The patient or guardian reports chest pain that is located primarily in the substernal sb4 area. The pain does not radiate. Associated signs and symptoms: Pertinent positives: nausea, shortness of breath. The chest pain is described as dull. Modifying factors: The symptoms are alleviated by nothing. the symptoms are aggravated by nothing. Severity of pain: in the emergency department the pain is a 5 / 10. The patient has experienced a previous episode. The patient has been recently seen by a physician: 1 month(s) ago, with similar presenting complaints, and was referred to a specialist. intermittent palpitations x 1 month, was supposed to follow up with cardiology but has not been able to get in. pain in her chest this morning. has also been sick with a URI. 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 - Infectious Disease History:: Denies. - Social history:: Smoking status: Patient denies any tobacco usage or history of. ROS: 11:40 Constitutional: Negative for fever, chills, and weight loss, sb4 11:40 Cardiovascular: Positive for chest pain, palpitations, 11:40 Respiratory: Positive for shortness of breath, 11:40 All other systems are negative, Exam: 11:40 Constitutional: This is a well developed, well nourished patient who is awake, alert, sb4 and in no acute distress. Head/Face: Normocephalic, atraumatic. Eyes: Extra-ocular motions intact. Periorbital areas with no swelling, redness, or edema. ENT: Mucous membranes moist. Cardiovascular: Regular rate and rhythm with a normal S1 and S2. Respiratory: Lungs have equal breath sounds bilaterally, clear to auscultation and percussion. No rales, rhonchi or wheezes noted. No increased work of breathing, no retractions or nasal flaring. Abdomen/GI: Soft, non-tender, no distension. Skin: Warm, dry with normal turgor. Normal color with no rashes, no lesions, and no evidence of cellulitis. MS/ Extremity: Pulses equal, no cyanosis. Neurovascular intact. Full, normal range of motion. Neuro: Awake and alert, GCS 15, oriented to person, place, time, and situation. Motor strength 5/5 in all extremities. Sensory grossly intact. 11:40 Cardiovascular: Rate: tachycardic, Rhythm: regular, Vital Signs: 11:42 BP 124 / 88; Pulse 99; Resp 16; Temp 96.6; Pulse Ox 100% on R/A; Weight 84.82 kg; cm10 Height 5 ft. 2 in. ; Pain 5/10; 12:47 BP 105 / 64; Pulse 86; Resp 18; Pulse Ox 100% on R/A; mb9 13:46 BP 104 / 63; Pulse 80; Resp 18; Pulse Ox 100% on R/A; mb9 11:42 Body Mass Index 34.20 (84.82 kg, 157.48 cm) cm10 11:42 Pain Scale: Adult cm10 MDM: 11:29 Patient medically screened. sb4 13:30 Data reviewed: vital signs, nurses notes, lab test result(s), EKG, radiologic studies, sb4 and as a result, I will discharge patient. Scoring Tools HEART Score: History: ECG: Age: Risk Factors: 1 or 2 risk factors (1), Troponin: Total Score = 1. 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 03/11 11:39 Order name: Basic Metabolic Panel; Complete Time: 12:44 sb4 03/11 11:39 Order name: CBC with Diff; Complete Time: 12:07 sb4 03/11 11:39 Order name: D-Dimer; Complete Time: 12:07 sb4 03/11 11:39 Order name: LFT's; Complete Time: 12:44 sb4 03/11 11:39 Order name: Magnesium; Complete Time: 12:44 sb4 03/11 11:39 Order name: NT PRO-BNP; Complete Time: 12:44 sb4 03/11 11:39 Order name: PT-INR; Complete Time: 12:07 sb4 03/11 11:39 Order name: Troponin HS; Complete Time: 12:44 sb4 03/11 11:39 Order name: Test, Serum; Complete Time: 12:26 sb4 03/11 11:39 Order name: TSH; Complete Time: 12:44 sb4 03/11 12:31 Order name: T4 Free; Complete Time: 12:44 EDMS 03/11 11:39 Order name: XRAY Chest (1 view); Complete Time: 13:24 sb4 03/11 11:39 Order name: EKG; Complete Time: 11:40 sb4 03/11 11:39 Order name: Cardiac monitoring; Complete Time: 11:57 sb4 03/11 11:39 Order name: EKG - Nurse/Tech; Complete Time: 11:57 sb4 03/11 11:39 Order name: IV Saline Lock; Complete Time: 11:57 sb4 03/11 11:39 Order name: Labs collected and sent; Complete Time: 11:57 sb4 03/11 11:39 Order name: O2 Per Protocol; Complete Time: 11:57 sb4 03/11 11:39 Order name: O2 Sat Monitoring; Complete Time: 11:57 sb4 EC:40 Rate is 97 beats/min. Rhythm is regular, Normal Sinus Rhythm. CO interval is normal at sb4 150 msec. QRS interval is normal at 74 msec. QT interval is normal. No Q waves. T waves are Normal. No ST changes noted. Clinical impression: Normal ECG. Interpreted by me. Reviewed by me. Administered Medications: 12:58 Drug: Ketorolac IVP 15 mg IVP once Route: IVP; Site: left antecubital; mb9 13:47 Follow up: Response: No adverse reaction mb9 12:58 Drug: Ondansetron IVP 4 mg IVP once; over 2 minutes Route: IVP; Site: left antecubital; mb9 13:47 Follow up: Response: No adverse reaction mb9 Disposition: 16:01 Co-signature as Attending Physician, Maxime Rainey MD I agree with the assessment and keaton plan of care. Disposition Summary: 03/11/24 13:30 Discharge Ordered Notes: Location: Home sb4 Problem: new sb4 Symptoms: have improved sb4 Condition: Stable sb4 Diagnosis - Chest pain, unspecified sb4 - Palpitations sb4 Followup: sb4 - With: Arthur Ahuja MD - When: 1 week - Reason: Recheck today's complaints, Re-evaluation by your physician Discharge Instructions: - Discharge Summary Sheet sb4 - Palpitations sb4 - Nonspecific Chest Pain, Adult, [id number] sb4 Forms: - Patient Portal Instructions sb4 - Leadership Thank You Letter sb4 Signatures: Dispatcher [employer] Maxime Preston MD MD cha Brown, Sophia, PA-C PA-C sb4 Alta Ortiz RN RN mb9 Tere Maldonado RN RN cm10
[2024-03-11 14:07] VITALS: TEMP 96.6; O2SAT 100
[2024-03-11 14:12] VITALS: BP 104/63
--- NOTE | 2024-03-13 12:53 | EKG ---
Test Date: 2024-03-11 Test Time: 11:37:52 Core Shaper: ALANA MEASUREMENT RESULTS: Intervals: Rate: 97 NH: 150 QRSD: 74 QT: 328 QTc: 416 [place]: P: 28 NH: 150 QRS: 54 T: 40 INTERPRETIVE STATEMENTS: Normal sinus rhythm Normal ECG Compared to ECG 02/10/2024 11:04:53 No significant changes Electronically Signed On 03-13-24 12:48:41 CDT by Arthur Ahuja
== END 2024-03-11 13:47 | disposition home or self-care (01) ==
LOC: ER 11:26
DX: R07.9 Chest pain, unspecified (principal); R00.2 Palpitations; F41.9 Anxiety disorder, unspecified; I10 Essential (primary) hypertension; Z88.0 Allergy status to penicillin
CPT/HCPCS: 36415; 71045; 80048; 80076; 83735; 83880; 84439; 84443; 84484; 84703; 85025; 85379; 85610; 93005; 96374; 96375; 99285; J2405

== ENCOUNTER 2024-09-14 17:45 | Emergency (ER) | payer SELFPAY ==
--- OUTSIDE RECORDS SUMMARY | 2024-09-14 17:58 | XMS REPORT | Continuity of Care Document ---
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 Intramuscu lar, Q24H, First dose on Wed12/09/22 at 1630, Until Discontinu ed, Routine [facility] PIB fentaNYL-ro pivacaine 2 mcg/mL-0.1 % (PF) in NS 200 mL epidural infusion RTU 12-09 21:10: 00 12-10 02:30 :05 No Epidural, CONTINUOUS PRN, Starting on Wed12/09/22 at 1610, Until Discontinu ed, Routine, Intra-op [facility] vit/iron fum/folic ac ( 1 + 1 ORAL) 12-09 20:56: 36 Yes Take by mouth. [facility] levothyroxi ne 137 mcg tablet 12-09 20:56: 36 Yes 1 tablet in the morning on an empty stomach [facility] oxytocin (PITOCIN) 30 units in NS 500 mL IV infusion 12-09 18:47: 18 12-10 03:04 :51 No 2mU/min at 2-40 mL/hr, IV Infusion, TITRATE, Starting on Wed12/09/22 at 1347, Until Wed12/09/22 at 2204, Routine [facility] FENTanyl PF (SUBLIMAZE (PF)) injection 100 mcg 12-09 17:51: 27 12-10 03:04 :34 No 100ug 100 mcg, Slow IV Push, Q1HPRN, Starting on Wed12/09/22 at 1251, Until Wed12/09/22 at 2204, Routine, Pain (scale 4-6), Pain (scale 7-10) [facility] lactated ringers IV infusion 500 mL 12-09 17:47: 18 12-10 03:04 :51 No 500mL at 999 mL/hr, 500 mL, IV Infusion, PRN - SEE INSTRUCTIO NS, Starting on Wed12/09/22 at 1247, Until Wed12/09/22 at 2204, Routine [facility] [id number] IV infusion 1,000 mL 12-09 17:47: 18 12-10 03:04 :51 No 1000mL at 1-125 mL/hr, IV Infusion, TITRATE, Starting on Wed12/09/22 at 1247, Until Wed12/09/22 at 2204, Routine [facility] vit/iron fum/folic ac ( 1 + 1 ORAL) 12-09 09:40: 35 Yes Take by mouth. [facility] levothyroxi ne 137 mcg tablet 12-09 09:40: 35 Yes 1 tablet in the morning on an empty stomach [facility] vit/iron fum/folic ac ( 1 + 1 ORAL) 12-03 19:06: 46 Yes Take by mouth. [facility] levothyroxi ne 137 mcg tablet 12-03 19:06: 46 Yes 1 tablet in the morning on an empty stomach [facility] vit/iron fum/folic ac ( 1 + 1 ORAL) 12-01 13:27: 08 Yes Take by mouth. [facility] levothyroxi ne 137 mcg tablet 12-01 13:27: 08 Yes 1 tablet in the morning on an empty stomach [facility] proMETHazin e (PHENERGAN) 25 mg in NaCl 0.9% (NS) 50 mL piggyback 11-25 18:45: 00 11-25 18:57 :00 No 25mg 25 mg, IV Piggyback, ONCE, 1 dose, On Wed11/25/22 at 1345, 50 mL [facility] NaCl 0.9% (NS) IV infusion 1,000 mL 11-25 18:30: 00 11-25 19:46 :00 No 1000mL at 150 mL/hr, IV Infusion, ONCE, 1 dose, On Wed11/25/22 at 1330, Routine [facility] vit/iron fum/folic ac ( 1 + 1 ORAL) 11-25 17:10: 14 Yes Take by mouth. [facility] levothyroxi ne 137 mcg tablet 11-25 17:10: 14 Yes 1 tablet in the morning on an empty stomach [facility] vit/iron fum/folic ac ( 1 + 1 ORAL) 11-19 13:54: 14 Yes Take by mouth. [facility] levothyroxi ne 137 mcg tablet 2023-0 5-25 13:54: 14 Yes 1 tablet in the morning on an empty stomach [facility] vit/iron fum/folic ac ( 1 + 1 ORAL) 11-02 10:45: 21 Yes Take by mouth. [facility] levothyroxi ne 137 mcg tablet 11-02 10:45: 21 Yes 1 tablet in the morning on an empty stomach [facility] Blood-Gluco se Meter Kit 10-29 00:00: 00 12-31 00:00 :00 No Check glucose 4 times a day. [facility] blood sugar diagnostic (BLOOD GLUCOSE TEST) strip 10-29 00:00: 00 12-31 00:00 :00 No Check gluocose 4 times a day [facility] Lancets Misc 10-29 00:00: 00 12-31 00:00 :00 No Check glucose 4 times a day [facility] Alcohol Swabs (ALCOHOL PADS) PadM 10-29 00:00: 00 12-31 00:00 :00 No Apply to area(s) 4 (four) times daily. [facility] ondansetron 8 mg disintegrat ing tablet 10-23 00:00: 00 12-31 00:00 :00 No [id number] 8mg Take 1 tablet by mouth every 8 (eight) hours as needed for Nausea and Vomiting (N/V). [facility] vit/iron fum/folic ac ( 1 + 1 ORAL) 10-11 15:03: 55 Yes Take by mouth. [facility] levothyroxi ne 137 mcg tablet 10-11 15:03: 55 Yes 1 tablet in the morning on an empty stomach [facility] Levothyroxi ne 137 mcg Cap 10-09 15:27: 26 10-09 00:00 :00 No Take by mouth. [facility] DULoxetine (CYMBALTA) 30 mg capsule 10-09 15:27: 05 10-09 00:00 :00 No 30mg Take 30 mg by mouth in the morning. [facility] magnesium oxide 400 mg (241.3 mg magnesium) tablet 10-09 00:00: 00 12-31 00:00 :00 No [id number] 400mg Take 1 tablet by mouth in the morning. [facility] DULoxetine 60 mg capsule 10-07 00:00: 00 01-26 00:00 :00 No [facility] acetaminoph en (TYLENOL) tablet 650 mg 09-26 02:33: 09 Yes 650mg 650 mg, Oral, Q6HPRN, Starting on Wed09/25/22 at 2133, Until Discontinu ed, Routine, Pain (scale 4-6) [facility] Levothyroxi ne 137 mcg Cap 09-25 23:25: 16 Yes Take by mouth. [facility] vit/iron fum/folic ac ( 1 + 1 ORAL) 09-25 23:25: 16 Yes Take by mouth. [facility] DULoxetine (CYMBALTA) 30 mg capsule 09-25 23:25: 16 Yes 30mg Take 30 mg by mouth in the morning. [facility] Levothyroxi ne 137 mcg Cap 09-02 22:30: 50 Yes Take by mouth. [facility] vit/iron fum/folic ac ( 1 + 1 ORAL) 09-02 22:30: 50 Yes Take by mouth. [facility] DULoxetine (CYMBALTA) 30 mg capsule 09-02 22:30: 50 Yes 30mg Take 30 mg by mouth in the morning. [facility] vit/iron fum/folic ac ( 1 + 1 ORAL) 02-09 15:42: 19 Yes Take by mouth. [facility] DULoxetine (CYMBALTA) 30 mg capsule 02-09 15:42: 19 Yes 30mg Take 30 mg by mouth in the morning. [facility] Levothyroxi ne 137 mcg Cap 02-05 14:46: 02 Yes Take by mouth. [facility] norethindro ne (ORTHO MICRONOR) 0.35 mg tablet 10-24 00:00: 00 02-05 00:00 :00 No [id number] .35mg Take 1 tablet by mouth daily for 336 days. [facility] Cyclobenzap rine Hcl (Flexeril) 5 Mg TAB 01-30 19:37: 00 No 5mg Three Times A Day as needed for Muscle Tension [facility] Dicyclomine Hcl (Bentyl) 10 Mg CAP 01-29 15:57: 00 No 10mg Four Times Daily as needed for Abdominal Cramps [facility] Ondansetron Hcl (Zofran Odt) 4 Mg TAB.RAPDIS 01-29 15:57: 00 No 4mg Every 8 Hours as needed for Nausea / Vomiting [facility] Nystatin (Nystatin Liq) 100,000 Unit/1 Ml ORAL.SUSP 09-12 07:38: 00 No [id number] Four Times Daily [facility] Omeprazole (Prilosec) 40 Mg CPDR No [facility] Ordered Immunization Name Filled Immunization Name Date Status Comments Source PPD (TB) 2023-12-01 00:00:00 Completed [facility] PPD (TB) 2023-12-01 00:00:00 Completed [facility] PPD (TB) 2023-12-01 00:00:00 Completed [facility] PPD (TB) 2023-12-01 00:00:00 Completed [facility] PPD (TB) 2023-12-01 00:00:00 Completed [facility] Influenza Virus Vaccine Quad IM, Preserv and ABX Free 6 MO-64 YRS (FLUCELVAX) 2023-05-12 00:00:00 Completed [facility] Influenza Virus Vaccine Quad IM, Preserv and ABX Free 6 MO-64 YRS (FLUCELVAX) 2023-05-12 00:00:00 Completed [facility] Influenza Virus Vaccine Quad IM, Preserv and ABX Free 6 MO-64 YRS (FLUCELVAX) 2023-05-12 00:00:00 Completed [facility] Influenza Virus Vaccine Quad IM, Preserv and ABX Free 6 MO-64 YRS (FLUCELVAX) 2023-05-12 00:00:00 Completed [facility] Influenza Virus Vaccine Quad IM, Preserv and ABX Free 6 MO-64 YRS (FLUCELVAX) 2023-05-12 00:00:00 Completed [facility] Rho (d) Immune Globulin 2022-12-10 00:00:00 Completed [facility] Rho (d) Immune Globulin 2022-12-10 00:00:00 Completed [facility] Rho (d) Immune Globulin 2022-12-10 00:00:00 Completed [facility] Rho (d) Immune Globulin 2022-12-10 00:00:00 Completed [facility] Rho (d) Immune Globulin 2022-12-10 00:00:00 Completed [facility] Rho (d) Immune Globulin 2022-12-10 00:00:00 Completed [facility] Rho (d) Immune Globulin 2022-12-10 00:00:00 Completed [facility] Rho (d) Immune Globulin 2022-12-10 00:00:00 Completed [facility] Rho (d) Immune Globulin 2022-12-10 00:00:00 Completed [facility] Rho (d) Immune Globulin 2022-12-10 00:00:00 Completed [facility] Rho (d) Immune Globulin 2022-12-10 00:00:00 Completed [facility] Rho (d) Immune Globulin 2022-12-10 00:00:00 Completed [facility] Rho (d) Immune Globulin 2022-12-10 00:00:00 Completed [facility] Rho (d) Immune Globulin 2022-12-10 00:00:00 Completed [facility] Rho (d) Immune Globulin 2022-12-10 00:00:00 Completed [facility] TDAP 2022-10-23 00:00:00 Completed [facility] Rho (d) Immune Globulin 2022-10-23 00:00:00 Completed [facility] TDAP 2022-10-23 00:00:00 Completed [facility] Rho (d) Immune Globulin 2022-10-23 00:00:00 Completed [facility] TDAP 2022-10-23 00:00:00 Completed [facility] Rho (d) Immune Globulin 2022-10-23 00:00:00 Completed [facility] TDAP 2022-10-23 00:00:00 Completed [facility] Rho (d) Immune Globulin 2022-10-23 00:00:00 Completed [facility] TDAP 2022-10-23 00:00:00 Completed [facility] Rho (d) Immune Globulin 2022-10-23 00:00:00 Completed [facility] TDAP 2022-10-23 00:00:00 Completed [facility] Rho (d) Immune Globulin 2022-10-23 00:00:00 Completed [facility] TDAP 2022-10-23 00:00:00 Completed [facility] Rho (d) Immune Globulin 2022-10-23 00:00:00 Completed [facility] TDAP 2022-10-23 00:00:00 Completed [facility] Rho (d) Immune Globulin 2022-10-23 00:00:00 Completed [facility] TDAP 2022-10-23 00:00:00 Completed [facility] Rho (d) Immune Globulin 2022-10-23 00:00:00 Completed [facility] TDAP 2022-10-23 00:00:00 Completed [facility] Rho (d) Immune Globulin 2022-10-23 00:00:00 Completed [facility] TDAP 2022-10-23 00:00:00 Completed [facility] Rho (d) Immune Globulin 2022-10-23 00:00:00 Completed [facility] TDAP 2022-10-23 00:00:00 Completed [facility] Rho (d) Immune Globulin 2022-10-23 00:00:00 Completed TDAP 2022-10-23 00:00:00 Completed [facility] Rho (d) Immune Globulin 2022-10-23 00:00:00 Completed TDAP 2022-10-23 00:00:00 Completed [facility] Rho (d) Immune Globulin 2022-10-23 00:00:00 Completed TDAP 2022-10-23 00:00:00 Completed [facility] Rho (d) Immune Globulin 2022-10-23 00:00:00 Completed TDAP 2022-10-23 00:00:00 Completed [facility] Rho (d) Immune Globulin 2022-10-23 00:00:00 Completed TDAP 2022-10-23 00:00:00 Completed [facility] Rho (d) Immune Globulin 2022-10-23 00:00:00 Completed [facility] TDAP 2022-10-23 00:00:00 Completed [facility] Rho (d) Immune Globulin 2022-10-23 00:00:00 Completed [facility] TDAP 2022-10-23 00:00:00 Completed [facility] Rho (d) Immune Globulin 2022-10-23 00:00:00 Completed [facility] TDAP 2022-10-23 00:00:00 Completed [facility] Rho (d) Immune Globulin 2022-10-23 00:00:00 Completed [facility] TDAP 2022-10-23 00:00:00 Completed [facility] Rho (d) Immune Globulin 2022-10-23 00:00:00 Completed [facility] TDAP 2022-10-23 00:00:00 Completed [facility] Rho (d) Immune Globulin 2022-10-23 00:00:00 Completed [facility] TDAP 2022-10-23 00:00:00 Completed [facility] Rho (d) Immune Globulin 2022-10-23 00:00:00 Completed [facility] TDAP 2022-10-23 00:00:00 Completed [facility] Rho (d) Immune Globulin 2022-10-23 00:00:00 Completed [facility] TDAP 2022-10-23 00:00:00 Completed [facility] Rho (d) Immune Globulin 2022-10-23 00:00:00 Completed [facility] TDAP 2022-10-23 00:00:00 Completed [facility] Rho (d) Immune Globulin 2022-10-23 00:00:00 Completed [facility] TDAP 2022-10-23 00:00:00 Completed [facility] Rho (d) Immune Globulin 2022-10-23 00:00:00 Completed [facility] TDAP 2022-10-23 00:00:00 Completed [facility] Rho (d) Immune Globulin 2022-10-23 00:00:00 Completed [facility] TDAP 2022-10-23 00:00:00 Completed [facility] Rho (d) Immune Globulin 2022-10-23 00:00:00 Completed [facility] TDAP 2022-10-23 00:00:00 Completed [facility] Rho (d) Immune Globulin 2022-10-23 00:00:00 Completed [facility] TDAP 2022-10-23 00:00:00 Completed [facility] Rho (d) Immune Globulin 2022-10-23 00:00:00 Completed [facility] TDAP 2022-10-23 00:00:00 Completed [facility] Rho (d) Immune Globulin 2022-10-23 00:00:00 Completed [facility] TDAP 2022-10-23 00:00:00 Completed [facility] Rho (d) Immune Globulin 2022-10-23 00:00:00 Completed [facility] TDAP 2022-10-23 00:00:00 Completed [facility] Rho (d) Immune Globulin 2022-10-23 00:00:00 Completed [facility] TDAP 2022-10-23 00:00:00 Completed [facility] Rho (d) Immune Globulin 2022-10-23 00:00:00 Completed [facility] TDAP 2022-10-23 00:00:00 Completed [facility] Rho (d) Immune Globulin 2022-10-23 00:00:00 Completed [facility] TDAP 2022-10-23 00:00:00 Completed [facility] Rho (d) Immune Globulin 2022-10-23 00:00:00 Completed [facility] TDAP 2022-10-23 00:00:00 Completed [facility] Rho (d) Immune Globulin 2022-10-23 00:00:00 Completed [facility] TDAP 2022-10-23 00:00:00 Completed [facility] Rho (d) Immune Globulin 2022-10-23 00:00:00 Completed [facility] TDAP 2022-10-23 00:00:00 Completed [facility] Rho (d) Immune Globulin 2022-10-23 00:00:00 Completed [facility] TDAP 2022-10-23 00:00:00 Completed [facility] Rho (d) Immune Globulin 2022-10-23 00:00:00 Completed [facility] SARS-COV-2 COVID-19 MODERNA 12+ YRS VACCINE 2021-02-25 00:00:00 Completed [facility] SARS-COV-2 COVID-19 MODERNA 12+ YRS VACCINE 2021-02-25 00:00:00 Completed [facility] SARS-COV-2 COVID-19 MODERNA 12+ YRS VACCINE 2021-02-25 00:00:00 Completed [facility] SARS-COV-2 COVID-19 MODERNA 12+ YRS VACCINE 2021-02-25 00:00:00 Completed [facility] SARS-COV-2 COVID-19 MODERNA 12+ YRS VACCINE 2021-02-25 00:00:00 Completed [facility] SARS-COV-2 COVID-19 MODERNA 12+ YRS VACCINE 2021-02-25 00:00:00 Completed [facility] SARS-COV-2 COVID-19 MODERNA VACCINE 2021-02-25 00:00:00 Completed [facility] SARS-COV-2 COVID-19 MODERNA 12+ YRS VACCINE 2021-02-25 00:00:00 Completed [facility] SARS-COV-2 COVID-19 MODERNA 12+ YRS VACCINE 2021-02-25 00:00:00 Completed [facility] SARS-COV-2 COVID-19 MODERNA 12+ YRS VACCINE 2021-02-25 00:00:00 Completed [facility] SARS-COV-2 COVID-19 MODERNA VACCINE 2021-02-25 00:00:00 Completed [facility] SARS-COV-2 COVID-19 MODERNA 12+ YRS VACCINE 2021-02-25 00:00:00 Completed [facility] SARS-COV-2 COVID-19 MODERNA 12+ YRS VACCINE 2021-02-25 00:00:00 Completed [facility] SARS-COV-2 COVID-19 MODERNA VACCINE 2021-02-25 00:00:00 Completed [facility] SARS-COV-2 COVID-19 MODERNA VACCINE 2021-02-25 00:00:00 Completed [facility] SARS-COV-2 COVID-19 MODERNA 12+ YRS VACCINE 2021-02-25 00:00:00 Completed [facility] SARS-COV-2 COVID-19 MODERNA 12+ YRS VACCINE 2021-02-25 00:00:00 Completed [facility] SARS-COV-2 COVID-19 MODERNA 12+ YRS VACCINE 2021-02-25 00:00:00 Completed [facility] SARS-COV-2 COVID-19 MODERNA 12+ YRS VACCINE 2021-02-25 00:00:00 Completed [facility] SARS-COV-2 COVID-19 MODERNA 12+ YRS VACCINE 2021-02-25 00:00:00 Completed [facility] SARS-COV-2 COVID-19 MODERNA 12+ YRS VACCINE 2021-02-25 00:00:00 Completed [facility] SARS-COV-2 COVID-19 MODERNA 12+ YRS VACCINE 2021-02-25 00:00:00 Completed [facility] SARS-COV-2 COVID-19 MODERNA 12+ YRS VACCINE 2021-02-25 00:00:00 Completed [facility] SARS-COV-2 COVID-19 MODERNA 12+ YRS VACCINE 2021-02-25 00:00:00 Completed [facility] SARS-COV-2 COVID-19 MODERNA 12+ YRS VACCINE 2021-02-25 00:00:00 Completed [facility] SARS-COV-2 COVID-19 MODERNA 12+ YRS VACCINE 2021-02-25 00:00:00 Completed [facility] SARS-COV-2 COVID-19 MODERNA 12+ YRS VACCINE 2021-02-25 00:00:00 Completed [facility] SARS-COV-2 COVID-19 MODERNA 12+ YRS VACCINE 2021-02-25 00:00:00 Completed [facility] SARS-COV-2 COVID-19 MODERNA 12+ YRS VACCINE 2021-02-25 00:00:00 Completed [facility] SARS-COV-2 COVID-19 MODERNA 12+ YRS VACCINE 2021-02-25 00:00:00 Completed [facility] SARS-COV-2 COVID-19 MODERNA 12+ YRS VACCINE 2021-02-25 00:00:00 Completed [facility] SARS-COV-2 COVID-19 MODERNA 12+ YRS VACCINE 2021-02-25 00:00:00 Completed [facility] SARS-COV-2 COVID-19 MODERNA 12+ YRS VACCINE 2021-02-25 00:00:00 Completed [facility] SARS-COV-2 COVID-19 MODERNA 12+ YRS VACCINE 2021-02-25 00:00:00 Completed [facility] SARS-COV-2 COVID-19 MODERNA 12+ YRS VACCINE 2021-02-25 00:00:00 Completed [facility] SARS-COV-2 COVID-19 MODERNA 12+ YRS VACCINE 2021-02-25 00:00:00 Completed [facility] SARS-COV-2 COVID-19 MODERNA 12+ YRS VACCINE 2021-02-25 00:00:00 Completed [facility] SARS-COV-2 COVID-19 MODERNA 12+ YRS VACCINE 2021-02-25 00:00:00 Completed [facility] SARS-COV-2 COVID-19 MODERNA 12+ YRS VACCINE 2021-02-25 00:00:00 Completed [facility] SARS-COV-2 COVID-19 MODERNA 12+ YRS VACCINE 2021-02-25 00:00:00 Completed [facility] SARS-COV-2 COVID-19 MODERNA 12+ YRS VACCINE 2021-02-25 00:00:00 Completed [facility] SARS-COV-2 COVID-19 MODERNA 12+ YRS VACCINE 2021-02-25 00:00:00 Completed [facility] SARS-COV-2 COVID-19 MODERNA 12+ YRS VACCINE 2021-02-25 00:00:00 Completed [facility] SARS-COV-2 COVID-19 MODERNA 12+ YRS VACCINE 2021-02-25 00:00:00 Completed [facility] SARS-COV-2 COVID-19 MODERNA 12+ YRS VACCINE 2021-02-25 00:00:00 Completed [facility] SARS-COV-2 COVID-19 MODERNA 12+ YRS VACCINE 2021-02-25 00:00:00 Completed [facility] SARS-COV-2 COVID-19 MODERNA 12+ YRS VACCINE 2021-02-25 00:00:00 Completed [facility] SARS-COV-2 COVID-19 MODERNA 12+ YRS VACCINE 2021-02-25 00:00:00 Completed [facility] SARS-COV-2 COVID-19 MODERNA 12+ YRS VACCINE 2021-02-25 00:00:00 Completed [facility] SARS-COV-2 COVID-19 MODERNA 12+ YRS VACCINE 2021-02-25 00:00:00 Completed [facility] SARS-COV-2 COVID-19 MODERNA 12+ YRS VACCINE 2021-02-25 00:00:00 Completed [facility] SARS-COV-2 COVID-19 MODERNA 12+ YRS VACCINE 2021-02-25 00:00:00 Completed [facility] SARS-COV-2 COVID-19 MODERNA 12+ YRS VACCINE 2021-02-25 00:00:00 Completed [facility] SARS-COV-2 COVID-19 MODERNA 12+ YRS VACCINE 2021-02-25 00:00:00 Completed [facility] SARS-COV-2 COVID-19 MODERNA 12+ YRS VACCINE 2021-02-25 00:00:00 Completed [facility] SARS-COV-2 COVID-19 VACCINE - (MODERNA) 2021-02-10 00:00:00 Completed SARS-COV-2 COVID-19 VACCINE - (MODERNA) 2021-02-10 00:00:00 Completed SARS-COV-2 COVID-19 VACCINE - (MODERNA) 2021-02-10 00:00:00 Completed SARS-COV-2 COVID-19 VACCINE - (MODERNA) 2021-02-10 00:00:00 Completed SARS-COV-2 COVID-19 VACCINE - (MODERNA) 2021-02-10 00:00:00 Completed SARS-COV-2 COVID-19 MODERNA 12+ YRS VACCINE Unknown Completed [facility] TDAP Unknown Completed [facility] Rho (d) Immune Globulin Unknown Completed [facility] Influenza Virus Vaccine Quad IM, Preserv and ABX Free 6 MO-64 YRS (FLUCELVAX) Unknown Completed [facility] TDAP Unknown Completed [facility] Influenza Virus Vaccine Quad IM, Preserv and ABX Free 6 MO-64 YRS (FLUCELVAX) Unknown Completed [facility] SARS-COV-2 COVID-19 MODERNA 12+ YRS VACCINE Unknown Completed [facility] Rho (d) Immune Globulin Unknown Completed [facility] SARS-COV-2 COVID-19 MODERNA 12+ YRS VACCINE Unknown Completed [facility] TDAP Unknown Completed [facility] Rho (d) Immune Globulin Unknown Completed [facility] Influenza Virus Vaccine Quad IM, Preserv and ABX Free 6 MO-64 YRS (FLUCELVAX) Unknown Completed [facility] SARS-COV-2 COVID-19 MODERNA 12+ YRS VACCINE Unknown Completed [facility] TDAP Unknown Completed [facility] Rho (d) Immune Globulin Unknown Completed [facility] Influenza Virus Vaccine Quad IM, Preserv and ABX Free 6 MO-64 YRS (FLUCELVAX) Unknown Completed [facility] SARS-COV-2 COVID-19 MODERNA 12+ YRS VACCINE Unknown Completed [facility] TDAP Unknown Completed [facility] Rho (d) Immune Globulin Unknown Completed [facility] Influenza Virus Vaccine Quad IM, Preserv and ABX Free 6 MO-64 YRS (FLUCELVAX) Unknown Completed [facility] SARS-COV-2 COVID-19 MODERNA 12+ YRS VACCINE Unknown Completed [facility] TDAP Unknown Completed [facility] Rho (d) Immune Globulin Unknown Completed [facility] Influenza Virus Vaccine Quad IM, Preserv and ABX Free 6 MO-64 YRS (FLUCELVAX) Unknown Completed [facility] TDAP Unknown Completed [facility] Influenza Virus Vaccine Quad IM, Preserv and ABX Free 6 MO-64 YRS (FLUCELVAX) Unknown Completed [facility] SARS-COV-2 COVID-19 MODERNA 12+ YRS VACCINE Unknown Completed [facility] Rho (d) Immune Globulin Unknown Completed [facility] SARS-COV-2 COVID-19 MODERNA 12+ YRS VACCINE Unknown Completed [facility] TDAP Unknown Completed [facility] Rho (d) Immune Globulin Unknown Completed [facility] Influenza Virus Vaccine Quad IM, Preserv and ABX Free 6 MO-64 YRS (FLUCELVAX) Unknown Completed [facility] SARS-COV-2 COVID-19 MODERNA 12+ YRS VACCINE Unknown Completed [facility] TDAP Unknown Completed [facility] Rho (d) Immune Globulin Unknown Completed [facility] Influenza Virus Vaccine Quad IM, Preserv and ABX Free 6 MO-64 YRS (FLUCELVAX) Unknown Completed [facility] SARS-COV-2 COVID-19 MODERNA 12+ YRS VACCINE Unknown Completed [facility] TDAP Unknown Completed [facility] Rho (d) Immune Globulin Unknown Completed [facility] Influenza Virus Vaccine Quad IM, Preserv and ABX Free 6 MO-64 YRS (FLUCELVAX) Unknown Completed [facility] SARS-COV-2 COVID-19 MODERNA 12+ YRS VACCINE Unknown Completed [facility] TDAP Unknown Completed [facility] Rho (d) Immune Globulin Unknown Completed [facility] Influenza Virus Vaccine Quad IM, Preserv and ABX Free 6 MO-64 YRS (FLUCELVAX) Unknown Completed [facility] TDAP Unknown Completed [facility] Influenza Virus Vaccine Quad IM, Preserv and ABX Free 6 MO-64 YRS (FLUCELVAX) Unknown Completed [facility] SARS-COV-2 COVID-19 MODERNA 12+ YRS VACCINE Unknown Completed [facility] Rho (d) Immune Globulin Unknown Completed [facility] SARS-COV-2 COVID-19 MODERNA 12+ YRS VACCINE Unknown Completed [facility] TDAP Unknown Completed [facility] Rho (d) Immune Globulin Unknown Completed [facility] Influenza Virus Vaccine Quad IM, Preserv and ABX Free 6 MO-64 YRS (FLUCELVAX) Unknown Completed [facility] SARS-COV-2 COVID-19 MODERNA 12+ YRS VACCINE Unknown Completed [facility] TDAP Unknown Completed [facility] Rho (d) Immune Globulin Unknown Completed [facility] Influenza Virus Vaccine Quad IM, Preserv and ABX Free 6 MO-64 YRS (FLUCELVAX) Unknown Completed [facility] SARS-COV-2 COVID-19 MODERNA 12+ YRS VACCINE Unknown Completed [facility] TDAP Unknown Completed [facility] Rho (d) Immune Globulin Unknown Completed [facility] Influenza Virus Vaccine Quad IM, Preserv and ABX Free 6 MO-64 YRS (FLUCELVAX) Unknown Completed [facility] TDAP Unknown Completed [facility] Influenza Virus Vaccine Quad IM, Preserv and ABX Free 6 MO-64 YRS (FLUCELVAX) Unknown Completed [facility] SARS-COV-2 COVID-19 MODERNA 12+ YRS VACCINE Unknown Completed [facility] Rho (d) Immune Globulin Unknown Completed [facility] SARS-COV-2 COVID-19 MODERNA 12+ YRS VACCINE Unknown Completed [facility] TDAP Unknown Completed [facility] Rho (d) Immune Globulin Unknown Completed [facility] Influenza Virus Vaccine Quad IM, Preserv and ABX Free 6 MO-64 YRS (FLUCELVAX) Unknown Completed [facility] SARS-COV-2 COVID-19 MODERNA 12+ YRS VACCINE Unknown Completed [facility] TDAP Unknown Completed [facility] Rho (d) Immune Globulin Unknown Completed [facility] Influenza Virus Vaccine Quad IM, Preserv and ABX Free 6 MO-64 YRS (FLUCELVAX) Unknown Completed [facility] SARS-COV-2 COVID-19 MODERNA 12+ YRS VACCINE Unknown Completed [facility] TDAP Unknown Completed [facility] Rho (d) Immune Globulin Unknown Completed [facility] Influenza Virus Vaccine Quad IM, Preserv and ABX Free 6 MO-64 YRS (FLUCELVAX) Unknown Completed [facility] SARS-COV-2 COVID-19 MODERNA 12+ YRS VACCINE Unknown Completed [facility] TDAP Unknown Completed [facility] Rho (d) Immune Globulin Unknown Completed [facility] Influenza Virus Vaccine Quad IM, Preserv and ABX Free 6 MO-64 YRS (FLUCELVAX) Unknown Completed [facility] SARS-COV-2 COVID-19 MODERNA 12+ YRS VACCINE Unknown Completed [facility] TDAP Unknown Completed [facility] Rho (d) Immune Globulin Unknown Completed [facility] Influenza Virus Vaccine Quad IM, Preserv and ABX Free 6 MO-64 YRS (FLUCELVAX) Unknown Completed [facility] SARS-COV-2 COVID-19 MODERNA 12+ YRS VACCINE Unknown Completed [facility] TDAP Unknown Completed [facility] Rho (d) Immune Globulin Unknown Completed [facility] Influenza Virus Vaccine Quad IM, Preserv and ABX Free 6 MO-64 YRS (FLUCELVAX) Unknown Completed [facility] SARS-COV-2 COVID-19 MODERNA 12+ YRS VACCINE Unknown Completed [facility] TDAP Unknown Completed [facility] Rho (d) Immune Globulin Unknown Completed [facility] Influenza Virus Vaccine Quad IM, Preserv and ABX Free 6 MO-64 YRS (FLUCELVAX) Unknown Completed [facility] SARS-COV-2 COVID-19 MODERNA 12+ YRS VACCINE Unknown Completed [facility] TDAP Unknown Completed [facility] Rho (d) Immune Globulin Unknown Completed [facility] Influenza Virus Vaccine Quad IM, Preserv and ABX Free 6 MO-64 YRS (FLUCELVAX) Unknown Completed [facility] SARS-COV-2 COVID-19 MODERNA 12+ YRS VACCINE Unknown Completed [facility] TDAP Unknown Completed [facility] Rho (d) Immune Globulin Unknown Completed [facility] Influenza Virus Vaccine Quad IM, Preserv and ABX Free 6 MO-64 YRS (FLUCELVAX) Unknown Completed [facility] SARS-COV-2 COVID-19 MODERNA 12+ YRS VACCINE Unknown Completed [facility] TDAP Unknown Completed [facility] Rho (d) Immune Globulin Unknown Completed [facility] Influenza Virus Vaccine Quad IM, Preserv and ABX Free 6 MO-64 YRS (FLUCELVAX) Unknown Completed [facility] TDAP Unknown Completed [facility] Influenza Virus Vaccine Quad IM, Preserv and ABX Free 6 MO-64 YRS (FLUCELVAX) Unknown Completed [facility] SARS-COV-2 COVID-19 MODERNA 12+ YRS VACCINE Unknown Completed [facility] Rho (d) Immune Globulin Unknown Completed [facility] SARS-COV-2 COVID-19 MODERNA 12+ YRS VACCINE Unknown Completed [facility] TDAP Unknown Completed [facility] Rho (d) Immune Globulin Unknown Completed [facility] Influenza Virus Vaccine Quad IM, Preserv and ABX Free 6 MO-64 YRS (FLUCELVAX) Unknown Completed [facility] SARS-COV-2 COVID-19 MODERNA 12+ YRS VACCINE Unknown Completed [facility] TDAP Unknown Completed [facility] Rho (d) Immune Globulin Unknown Completed [facility] Influenza Virus Vaccine Quad IM, Preserv and ABX Free 6 MO-64 YRS (FLUCELVAX) Unknown Completed [facility] SARS-COV-2 COVID-19 MODERNA 12+ YRS VACCINE Unknown Completed [facility] TDAP Unknown Completed [facility] Rho (d) Immune Globulin Unknown Completed [facility] Influenza Virus Vaccine Quad IM, Preserv and ABX Free 6 MO-64 YRS (FLUCELVAX) Unknown Completed [facility] SARS-COV-2 COVID-19 MODERNA 12+ YRS VACCINE Unknown Completed [facility] TDAP Unknown Completed [facility] Rho (d) Immune Globulin Unknown Completed [facility] Influenza Virus Vaccine Quad IM, Preserv and ABX Free 6 MO-64 YRS (FLUCELVAX) Unknown Completed [facility] SARS-COV-2 COVID-19 MODERNA 12+ YRS VACCINE Unknown Completed [facility] TDAP Unknown Completed [facility] Rho (d) Immune Globulin Unknown Completed [facility] Influenza Virus Vaccine Quad IM, Preserv and ABX Free 6 MO-64 YRS (FLUCELVAX) Unknown Completed [facility] SARS-COV-2 COVID-19 MODERNA 12+ YRS VACCINE Unknown Completed [facility] TDAP Unknown Completed [facility] Rho (d) Immune Globulin Unknown Completed [facility] Influenza Virus Vaccine Quad IM, Preserv and ABX Free 6 MO-64 YRS (FLUCELVAX) Unknown Completed [facility] SARS-COV-2 COVID-19 MODERNA 12+ YRS VACCINE Unknown Completed [facility] TDAP Unknown Completed [facility] Rho (d) Immune Globulin Unknown Completed [facility] Influenza Virus Vaccine Quad IM, Preserv and ABX Free 6 MO-64 YRS (FLUCELVAX) Unknown Completed [facility] SARS-COV-2 COVID-19 MODERNA 12+ YRS VACCINE Unknown Completed [facility] TDAP Unknown Completed [facility] Rho (d) Immune Globulin Unknown Completed [facility] Influenza Virus Vaccine Quad IM, Preserv and ABX Free 6 MO-64 YRS (FLUCELVAX) Unknown Completed [facility] SARS-COV-2 COVID-19 MODERNA 12+ YRS VACCINE Unknown Completed [facility] TDAP Unknown Completed [facility] Rho (d) Immune Globulin Unknown Completed [facility] Influenza Virus Vaccine Quad IM, Preserv and ABX Free 6 MO-64 YRS (FLUCELVAX) Unknown Completed [facility] SARS-COV-2 COVID-19 MODERNA 12+ YRS VACCINE Unknown Completed [facility] TDAP Unknown Completed [facility] Rho (d) Immune Globulin Unknown Completed [facility] Influenza Virus Vaccine Quad IM, Preserv and ABX Free 6 MO-64 YRS (FLUCELVAX) Unknown Completed [facility] SARS-COV-2 COVID-19 MODERNA 12+ YRS VACCINE Unknown Completed [facility] TDAP Unknown Completed [facility] Rho (d) Immune Globulin Unknown Completed [facility] Influenza Virus Vaccine Quad IM, Preserv and ABX Free 6 MO-64 YRS (FLUCELVAX) Unknown Completed [facility] SARS-COV-2 COVID-19 MODERNA 12+ YRS VACCINE Unknown Completed [facility] TDAP Unknown Completed [facility] Rho (d) Immune Globulin Unknown Completed [facility] Influenza Virus Vaccine Quad IM, Preserv and ABX Free 6 MO-64 YRS (FLUCELVAX) Unknown Completed [facility] TDAP Unknown Completed [facility] Influenza Virus Vaccine Quad IM, Preserv and ABX Free 6 MO-64 YRS (FLUCELVAX) Unknown Completed [facility] SARS-COV-2 COVID-19 MODERNA 12+ YRS VACCINE Unknown Completed [facility] Rho (d) Immune Globulin Unknown Completed [facility] SARS-COV-2 COVID-19 MODERNA 12+ YRS VACCINE Unknown Completed [facility] TDAP Unknown Completed [facility] Rho (d) Immune Globulin Unknown Completed [facility] Influenza Virus Vaccine Quad IM, Preserv and ABX Free 6 MO-64 YRS (FLUCELVAX) Unknown Completed [facility] TDAP Unknown Completed [facility] Influenza Virus Vaccine Quad IM, Preserv and ABX Free 6 MO-64 YRS (FLUCELVAX) Unknown Completed [facility] SARS-COV-2 COVID-19 MODERNA 12+ YRS VACCINE Unknown Completed [facility] TDAP Unknown Completed [facility] Rho (d) Immune Globulin Unknown Completed [facility] Influenza Virus Vaccine Quad IM, Preserv and ABX Free 6 MO-64 YRS (FLUCELVAX) Unknown Completed [facility] SARS-COV-2 COVID-19 MODERNA 12+ YRS VACCINE Unknown Completed [facility] Rho (d) Immune Globulin Unknown Completed [facility] SARS-COV-2 COVID-19 MODERNA 12+ YRS VACCINE Unknown Completed [facility] TDAP Unknown Completed [facility] Rho (d) Immune Globulin Unknown Completed [facility] Influenza Virus Vaccine Quad IM, Preserv and ABX Free 6 MO-64 YRS (FLUCELVAX) Unknown Completed [facility] SARS-COV-2 COVID-19 MODERNA 12+ YRS VACCINE Unknown Completed [facility] TDAP Unknown Completed [facility] Rho (d) Immune Globulin Unknown Completed [facility] Influenza Virus Vaccine Quad IM, Preserv and ABX Free 6 MO-64 YRS (FLUCELVAX) Unknown Completed [facility] SARS-COV-2 COVID-19 MODERNA 12+ YRS VACCINE Unknown Completed [facility] TDAP Unknown Completed [facility] Rho (d) Immune Globulin Unknown Completed [facility] Influenza Virus Vaccine Quad IM, Preserv and ABX Free 6 MO-64 YRS (FLUCELVAX) Unknown Completed [facility] SARS-COV-2 COVID-19 MODERNA 12+ YRS VACCINE Unknown Completed [facility] TDAP Unknown Completed [facility] Rho (d) Immune Globulin Unknown Completed [facility] Influenza Virus Vaccine Quad IM, Preserv and ABX Free 6 MO-64 YRS (FLUCELVAX) Unknown Completed [facility] SARS-COV-2 COVID-19 MODERNA 12+ YRS VACCINE Unknown Completed [facility] TDAP Unknown Completed [facility] Rho (d) Immune Globulin Unknown Completed [facility] Influenza Virus Vaccine Quad IM, Preserv and ABX Free 6 MO-64 YRS (FLUCELVAX) Unknown Completed [facility] SARS-COV-2 COVID-19 MODERNA 12+ YRS VACCINE Unknown Completed [facility] TDAP Unknown Completed [facility] Rho (d) Immune Globulin Unknown Completed [facility] Influenza Virus Vaccine Quad IM, Preserv and ABX Free 6 MO-64 YRS (FLUCELVAX) Unknown Completed [facility] SARS-COV-2 COVID-19 MODERNA 12+ YRS VACCINE Unknown Completed [facility] TDAP Unknown Completed [facility] Rho (d) Immune Globulin Unknown Completed [facility] Influenza Virus Vaccine Quad IM, Preserv and ABX Free 6 MO-64 YRS (FLUCELVAX) Unknown Completed [facility] SARS-COV-2 COVID-19 MODERNA 12+ YRS VACCINE Unknown Completed [facility] TDAP Unknown Completed [facility] Rho (d) Immune Globulin Unknown Completed [facility] Influenza Virus Vaccine Quad IM, Preserv and ABX Free 6 MO-64 YRS (FLUCELVAX) Unknown Completed [facility] SARS-COV-2 COVID-19 MODERNA 12+ YRS VACCINE Unknown Completed [facility] TDAP Unknown Completed [facility] Rho (d) Immune Globulin Unknown Completed [facility] Influenza Virus Vaccine Quad IM, Preserv and ABX Free 6 MO-64 YRS (FLUCELVAX) Unknown Completed [facility] SARS-COV-2 COVID-19 MODERNA 12+ YRS VACCINE Unknown Completed [facility] TDAP Unknown Completed [facility] Rho (d) Immune Globulin Unknown Completed [facility] Influenza Virus Vaccine Quad IM, Preserv and ABX Free 6 MO-64 YRS (FLUCELVAX) Unknown Completed [facility] TDAP Unknown Completed [facility] Influenza Virus Vaccine Quad IM, Preserv and ABX Free 6 MO-64 YRS (FLUCELVAX) Unknown Completed [facility] PPD (TB) Unknown Completed [facility] SARS-COV-2 COVID-19 MODERNA 12+ YRS VACCINE Unknown Completed [facility] Rho (d) Immune Globulin Unknown Completed [facility] SARS-COV-2 COVID-19 MODERNA 12+ YRS VACCINE Unknown Completed [facility] TDAP Unknown Completed [facility] Rho (d) Immune Globulin Unknown Completed [facility] Influenza Virus Vaccine Quad IM, Preserv and ABX Free 6 MO-64 YRS (FLUCELVAX) Unknown Completed [facility] PPD (TB) Unknown Completed [facility] SARS-COV-2 COVID-19 MODERNA 12+ YRS VACCINE Unknown Completed [facility] TDAP Unknown Completed [facility] Rho (d) Immune Globulin Unknown Completed [facility] Influenza Virus Vaccine Quad IM, Preserv and ABX Free 6 MO-64 YRS (FLUCELVAX) Unknown Completed [facility] PPD (TB) Unknown Completed [facility] SARS-COV-2 COVID-19 MODERNA 12+ YRS VACCINE Unknown Completed [facility] TDAP Unknown Completed [facility] Rho (d) Immune Globulin Unknown Completed [facility] Influenza Virus Vaccine Quad IM, Preserv and ABX Free 6 MO-64 YRS (FLUCELVAX) Unknown Completed [facility] PPD (TB) Unknown Completed [facility] SARS-COV-2 COVID-19 MODERNA 12+ YRS VACCINE Unknown Completed [facility] TDAP Unknown Completed [facility] Rho (d) Immune Globulin Unknown Completed [facility] Influenza Virus Vaccine Quad IM, Preserv and ABX Free 6 MO-64 YRS (FLUCELVAX) Unknown Completed [facility] PPD (TB) Unknown Completed [facility] SARS-COV-2 COVID-19 MODERNA 12+ YRS VACCINE Unknown Completed [facility] TDAP Unknown Completed [facility] Rho (d) Immune Globulin Unknown Completed [facility] Influenza Virus Vaccine Quad IM, Preserv and ABX Free 6 MO-64 YRS (FLUCELVAX) Unknown Completed [facility] SARS-COV-2 COVID-19 MODERNA 12+ YRS VACCINE Unknown Completed [facility] TDAP Unknown Completed [facility] Rho (d) Immune Globulin Unknown Completed [facility] Influenza Virus Vaccine Quad IM, Preserv and ABX Free 6 MO-64 YRS (FLUCELVAX) Unknown Completed [facility] PPD (TB) Unknown Completed [facility] SARS-COV-2 COVID-19 MODERNA 12+ YRS VACCINE Unknown Completed [facility] TDAP Unknown Completed [facility] Rho (d) Immune Globulin Unknown Completed [facility] Influenza Virus Vaccine Quad IM, Preserv and ABX Free 6 MO-64 YRS (FLUCELVAX) Unknown Completed [facility] PPD (TB) Unknown Completed [facility] SARS-COV-2 COVID-19 MODERNA 12+ YRS VACCINE Unknown Completed [facility] TDAP Unknown Completed [facility] Rho (d) Immune Globulin Unknown Completed [facility] Influenza Virus Vaccine Quad IM, Preserv and ABX Free 6 MO-64 YRS (FLUCELVAX) Unknown Completed [facility] PPD (TB) Unknown Completed [facility] SARS-COV-2 COVID-19 MODERNA 12+ YRS VACCINE Unknown Completed [facility] TDAP Unknown Completed [facility] Rho (d) Immune Globulin Unknown Completed [facility] Influenza Virus Vaccine Quad IM, Preserv and ABX Free 6 MO-64 YRS (FLUCELVAX) Unknown Completed [facility] PPD (TB) Unknown Completed [facility] SARS-COV-2 COVID-19 MODERNA 12+ YRS VACCINE Unknown Completed [facility] TDAP Unknown Completed [facility] Rho (d) Immune Globulin Unknown Completed [facility] Influenza Virus Vaccine Quad IM, Preserv and ABX Free 6 MO-64 YRS (FLUCELVAX) Unknown Completed [facility] SARS-COV-2 COVID-19 MODERNA 12+ YRS VACCINE Unknown Completed [facility] TDAP Unknown Completed [facility] Rho (d) Immune Globulin Unknown Completed [facility] Influenza Virus Vaccine Quad IM, Preserv and ABX Free 6 MO-64 YRS (FLUCELVAX) Unknown Completed [facility] PPD (TB) Unknown Completed [facility] SARS-COV-2 COVID-19 MODERNA 12+ YRS VACCINE Unknown Completed [facility] TDAP Unknown Completed [facility] Rho (d) Immune Globulin Unknown Completed [facility] Influenza Virus Vaccine Quad IM, Preserv and ABX Free 6 MO-64 YRS (FLUCELVAX) Unknown Completed [facility] PPD (TB) Unknown Completed [facility] SARS-COV-2 COVID-19 MODERNA 12+ YRS VACCINE Unknown Completed [facility] TDAP Unknown Completed [facility] Rho (d) Immune Globulin Unknown Completed [facility] Influenza Virus Vaccine Quad IM, Preserv and ABX Free 6 MO-64 YRS (FLUCELVAX) Unknown Completed [facility] PPD (TB) Unknown Completed [facility] SARS-COV-2 COVID-19 MODERNA 12+ YRS VACCINE Unknown Completed [facility] TDAP Unknown Completed [facility] Rho (d) Immune Globulin Unknown Completed [facility] Influenza Virus Vaccine Quad IM, Preserv and ABX Free 6 MO-64 YRS (FLUCELVAX) Unknown Completed [facility] PPD (TB) Unknown Completed [facility] SARS-COV-2 COVID-19 MODERNA 12+ YRS VACCINE Unknown Completed [facility] TDAP Unknown Completed [facility] Rho (d) Immune Globulin Unknown Completed [facility] Influenza Virus Vaccine Quad IM, Preserv and ABX Free 6 MO-64 YRS (FLUCELVAX) Unknown Completed [facility] PPD (TB) Unknown Completed [facility] SARS-COV-2 COVID-19 MODERNA 12+ YRS VACCINE Unknown Completed [facility] [facility] TDAP Unknown Completed [facility] Rho (d) Immune Globulin Unknown Completed [facility] Influenza Virus Vaccine Quad IM, Preserv and ABX Free 6 MO-64 YRS (FLUCELVAX) Unknown Completed [facility] PPD (TB) Unknown Completed [facility] Vital Signs Vital Name Observation Time Observation Value Comments S ource Systolic blood pressure 2024-06-08 15:15:00 139 mm[Hg] [facility] Diastolic blood pressure 2024-06-08 15:15:00 83 mm[Hg] [facility] Heart rate 2024-06-08 15:15:00 97 /min [facility] Body temperature 2024-06-08 15:15:00 36.72 Malou [facility] Respiratory rate 2024-06-08 15:15:00 18 /min [facility] Body height 2024-06-08 15:15:00 157.5 cm [facility] Body weight 2024-06-08 15:15:00 82.963 kg [facility] BMI 2024-06-08 15:15:00 33.45 kg/m2 [facility] Oxygen saturation in Arterial blood by Pulse oximetry 2024-06-08 15:15:00 99 /min [facility] Systolic blood pressure 2024-05-11 15:37:00 123 mm[Hg] [facility] Diastolic blood pressure 2024-05-11 15:37:00 88 mm[Hg] [facility] Heart rate 2024-05-11 15:37:00 94 /min [facility] Body temperature 2024-05-11 15:37:00 36.72 Malou [facility] Respiratory rate 2024-05-11 15:37:00 20 /min [facility] Body weight 2024-05-11 15:37:00 82.464 kg [facility] BMI 2024-05-11 15:37:00 33.25 kg/m2 [facility] Oxygen saturation in Arterial blood by Pulse oximetry 2024-05-11 15:37:00 98 /min [facility] Systolic blood pressure 2024-04-26 22:38:00 125 mm[Hg] [facility] Diastolic blood pressure 2024-04-26 22:38:00 73 mm[Hg] [facility] Heart rate 2024-04-26 22:38:00 115 /min [facility] Body temperature 2024-04-26 22:38:00 36.17 Malou [facility] Respiratory rate 2024-04-26 22:38:00 16 /min [facility] Oxygen saturation in Arterial blood by Pulse oximetry 2024-04-26 22:38:00 95 /min [facility] Body height 2024-04-26 16:12:00 157.5 cm [facility] Body weight 2024-04-26 16:12:00 83.462 kg [facility] BMI 2024-04-26 16:12:00 33.65 kg/m2 [facility] Body height 2024-04-21 21:49:10 157.5 cm [facility] Systolic blood pressure 2024-04-21 20:55:00 126 mm[Hg] [facility] Diastolic blood pressure 2024-04-21 20:55:00 81 mm[Hg] [facility] Heart rate 2024-04-21 20:55:00 98 /min [facility] Body temperature 2024-04-21 20:55:00 36.89 Malou [facility] Respiratory rate 2024-04-21 20:55:00 16 /min [facility] Oxygen saturation in Arterial blood by Pulse oximetry 2024-04-21 20:55:00 100 /min [facility] Systolic blood pressure 2024-04-05 14:56:00 123 mm[Hg] [facility] Diastolic blood pressure 2024-04-05 14:56:00 85 mm[Hg] [facility] Heart rate 2024-04-05 14:56:00 104 /min [facility] Body temperature 2024-04-05 14:56:00 36.67 Malou [facility] Respiratory rate 2024-04-05 14:56:00 18 /min [facility] Body height 2024-04-05 14:56:00 157.5 cm [facility] Body weight 2024-04-05 14:56:00 83.87 kg [facility] BMI 2024-04-05 14:56:00 33.82 kg/m2 [facility] Oxygen saturation in Arterial blood by Pulse oximetry 2024-04-05 14:56:00 97 /min [facility] Systolic blood pressure 2024-03-27 14:45:00 118 mm[Hg] [facility] Diastolic blood pressure 2024-03-27 14:45:00 79 mm[Hg] [facility] Heart rate 2024-03-27 14:45:00 89 /min [facility] Body temperature 2024-03-27 14:45:00 36.67 Malou [facility] Respiratory rate 2024-03-27 14:45:00 14 /min [facility] Oxygen saturation in Arterial blood by Pulse oximetry 2024-03-27 14:45:00 99 /min [facility] Body height 2024-03-27 13:14:00 157.5 cm [facility] Body weight 2024-03-27 13:14:00 83.87 kg [facility] BMI 2024-03-27 13:14:00 33.82 kg/m2 [facility] Systolic blood pressure 2024-03-25 21:20:00 110 mm[Hg] [facility] Diastolic blood pressure 2024-03-25 21:20:00 79 mm[Hg] [facility] Heart rate 2024-03-25 21:20:00 112 /min [facility] Body temperature 2024-03-25 21:20:00 36.56 Malou [facility] Respiratory rate 2024-03-25 21:20:00 20 /min [facility] Body height 2024-03-25 21:20:00 157.5 cm [facility] Body weight 2024-03-25 21:20:00 84.052 kg [facility] BMI 2024-03-25 21:20:00 33.89 kg/m2 [facility] Oxygen saturation in Arterial blood by Pulse oximetry 2024-03-25 21:20:00 97 /min [facility] Systolic blood pressure 2024-02-15 15:26:00 139 mm[Hg] [facility] Diastolic blood pressure 2024-02-15 15:26:00 86 mm[Hg] [facility] Heart rate 2024-02-15 15:26:00 97 /min [facility] Body temperature 2024-02-15 15:26:00 36.39 Malou [facility] Respiratory rate 2024-02-15 15:26:00 17 /min [facility] Body height 2024-02-15 15:26:00 157.5 cm [facility] Body weight 2024-02-15 15:26:00 86.365 kg [facility] BMI 2024-02-15 15:26:00 34.82 kg/m2 [facility] Systolic blood pressure 2024-02-10 13:39:00 119 mm[Hg] [facility] Diastolic blood pressure 2024-02-10 13:39:00 80 mm[Hg] [facility] Heart rate 2024-02-10 13:39:00 106 /min [facility] Body temperature 2024-02-10 13:39:00 35.67 Malou [facility] Respiratory rate 2024-02-10 13:39:00 18 /min [facility] Body height 2024-02-10 13:39:00 157.5 cm [facility] Body weight 2024-02-10 13:39:00 88.179 kg [facility] BMI 2024-02-10 13:39:00 35.56 kg/m2 [facility] Systolic blood pressure 2024-01-29 15:08:00 115 mm[Hg] [facility] Diastolic blood pressure 2024-01-29 15:08:00 79 mm[Hg] [facility] Heart rate 2024-01-29 15:08:00 95 /min [facility] Body temperature 2024-01-29 15:08:00 36.67 Malou [facility] Respiratory rate 2024-01-29 15:08:00 18 /min [facility] Body weight 2024-01-29 15:08:00 86.183 kg [facility] BMI 2024-01-29 15:08:00 34.75 kg/m2 [facility] Oxygen saturation in Arterial blood by Pulse oximetry 2024-01-29 15:08:00 96 /min [facility] Systolic blood pressure 2024-01-14 17:22:00 126 mm[Hg] [facility] Diastolic blood pressure 2024-01-14 17:22:00 84 mm[Hg] [facility] Heart rate 2024-01-14 17:22:00 93 /min [facility] Body temperature 2024-01-14 17:22:00 36.83 Malou [facility] Respiratory rate 2024-01-14 17:22:00 17 /min [facility] Body weight 2024-01-14 17:22:00 85.639 kg [facility] BMI 2024-01-14 17:22:00 34.53 kg/m2 [facility] Oxygen saturation in Arterial blood by Pulse oximetry 2024-01-14 17:22:00 98 /min [facility] Systolic blood pressure 2023-12-21 20:01:00 126 mm[Hg] [facility] Diastolic blood pressure 2023-12-21 20:01:00 85 mm[Hg] [facility] Heart rate 2023-12-21 20:01:00 88 /min [facility] Body height 2023-12-21 20:01:00 157.5 cm [facility] Body weight 2023-12-21 20:01:00 85.276 kg [facility] BMI 2023-12-21 20:01:00 34.39 kg/m2 [facility] Oxygen saturation in Arterial blood by Pulse oximetry 2023-12-21 20:01:00 99 /min [facility] Systolic blood pressure 2023-12-09 19:10:00 125 mm[Hg] [facility] Diastolic blood pressure 2023-12-09 19:10:00 84 mm[Hg] [facility] Heart rate 2023-12-09 19:10:00 91 /min [facility] Respiratory rate 2023-12-09 19:10:00 20 /min [facility] Oxygen saturation in Arterial blood by Pulse oximetry 2023-12-09 19:10:00 100 /min [facility] Body temperature 2023-12-09 18:40:00 35.94 Malou [facility] Body height 2023-12-09 17:59:00 157.5 cm [facility] Body weight 2023-12-09 17:59:00 83.4 kg [facility] BMI 2023-12-09 17:59:00 33.63 kg/m2 [facility] Systolic blood pressure 2023-12-09 18:55:00 127 mm[Hg] [facility] Diastolic blood pressure 2023-12-09 18:55:00 88 mm[Hg] [facility] Heart rate 2023-12-09 18:55:00 103 /min [facility] Respiratory rate 2023-12-09 18:55:00 14 /min [facility] Oxygen saturation in Arterial blood by Pulse oximetry 2023-12-09 18:55:00 100 /min [facility] Body temperature 2023-12-09 18:40:00 35.94 Malou [facility] Body height 2023-12-09 17:59:00 157.5 cm [facility] Body weight 2023-12-09 17:59:00 83.4 kg [facility] BMI 2023-12-09 17:59:00 33.63 kg/m2 [facility] Systolic blood pressure 2023-12-03 19:57:00 122 mm[Hg] [facility] Diastolic blood pressure 2023-12-03 19:57:00 80 mm[Hg] [facility] Heart rate 2023-12-03 19:57:00 97 /min [facility] Body temperature 2023-12-03 19:57:00 35.94 Malou [facility] Respiratory rate 2023-12-03 19:57:00 16 /min [facility] Body weight 2023-12-03 19:57:00 83.553 kg [facility] BMI 2023-12-03 19:57:00 33.69 kg/m2 [facility] Oxygen saturation in Arterial blood by Pulse oximetry 2023-12-03 19:57:00 98 /min [facility] Systolic blood pressure 2023-12-01 19:40:00 123 mm[Hg] [facility] Diastolic blood pressure 2023-12-01 19:40:00 86 mm[Hg] [facility] Heart rate 2023-12-01 19:40:00 92 /min [facility] Body temperature 2023-12-01 19:40:00 36.94 Malou [facility] Respiratory rate 2023-12-01 19:40:00 18 /min [facility] Body height 2023-12-01 19:40:00 157.5 cm [facility] Body weight 2023-12-01 19:40:00 83.87 kg [facility] BMI 2023-12-01 19:40:00 33.82 kg/m2 [facility] Oxygen saturation in Arterial blood by Pulse oximetry 2023-12-01 19:40:00 99 /min [facility] Systolic blood pressure 2023-11-19 18:45:00 117 mm[Hg] [facility] Diastolic blood pressure 2023-11-19 18:45:00 81 mm[Hg] [facility] Heart rate 2023-11-19 18:45:00 97 /min [facility] Body temperature 2023-11-19 18:45:00 36.72 Malou [facility] Respiratory rate 2023-11-19 18:45:00 16 /min [facility] Body weight 2023-11-19 18:45:00 83.689 kg [facility] BMI 2023-11-19 18:45:00 33.75 kg/m2 [facility] Oxygen saturation in Arterial blood by Pulse oximetry 2023-11-19 18:45:00 99 /min [facility] Systolic blood pressure 2023-10-25 15:53:00 129 mm[Hg] [facility] Diastolic blood pressure 2023-10-25 15:53:00 90 mm[Hg] [facility] Heart rate 2023-10-25 15:53:00 111 /min [facility] Body temperature 2023-10-25 15:50:00 35.89 Malou [facility] Respiratory rate 2023-10-25 15:50:00 16 /min [facility] Body height 2023-10-25 15:50:00 157.5 cm [facility] Body weight 2023-10-25 15:50:00 82.509 kg [facility] BMI 2023-10-25 15:50:00 33.27 kg/m2 [facility] Oxygen saturation in Arterial blood by Pulse oximetry 2023-10-25 15:50:00 96 /min [facility] Systolic blood pressure 2023-10-18 18:34:00 124 mm[Hg] [facility] Diastolic blood pressure 2023-10-18 18:34:00 88 mm[Hg] [facility] Heart rate 2023-10-18 18:15:00 103 /min [facility] Body temperature 2023-10-18 18:15:00 36.67 Malou [facility] Respiratory rate 2023-10-18 18:15:00 18 /min [facility] Body height 2023-10-18 18:15:00 157.5 cm [facility] Body weight 2023-10-18 18:15:00 82.6 kg [facility] BMI 2023-10-18 18:15:00 33.31 kg/m2 [facility] Oxygen saturation in Arterial blood by Pulse oximetry 2023-10-18 18:15:00 100 /min [facility] Systolic blood pressure 2023-10-16 20:17:00 130 mm[Hg] [facility] Diastolic blood pressure 2023-10-16 20:17:00 97 mm[Hg] [facility] Heart rate 2023-10-16 20:17:00 88 /min [facility] Body temperature 2023-10-16 20:17:00 37.39 Malou [facility] Respiratory rate 2023-10-16 20:17:00 16 /min [facility] Body height 2023-10-16 20:17:00 157.5 cm [facility] Body weight 2023-10-16 20:17:00 81.647 kg [facility] BMI 2023-10-16 20:17:00 32.92 kg/m2 [facility] Oxygen saturation in Arterial blood by Pulse oximetry 2023-10-16 20:17:00 100 /min [facility] Systolic blood pressure 2023-10-07 14:18:00 125 mm[Hg] [facility] Diastolic blood pressure 2023-10-07 14:18:00 88 mm[Hg] [facility] Heart rate 2023-10-07 14:18:00 100 /min [facility] Body temperature 2023-10-07 14:18:00 35.56 Malou [facility] Respiratory rate 2023-10-07 14:18:00 16 /min [facility] Body height 2023-10-07 14:18:00 157.5 cm [facility] Body weight 2023-10-07 14:18:00 84.142 kg [facility] BMI 2023-10-07 14:18:00 33.93 kg/m2 [facility] Oxygen saturation in Arterial blood by Pulse oximetry 2023-10-07 14:18:00 100 /min [facility] Systolic blood pressure 2023-10-01 19:17:00 122 mm[Hg] [facility] Diastolic blood pressure 2023-10-01 19:17:00 81 mm[Hg] [facility] Heart rate 2023-10-01 19:17:00 94 /min [facility] Body temperature 2023-10-01 19:17:00 36.78 Malou [facility] Body height 2023-10-01 19:17:00 157.5 cm [facility] Body weight 2023-10-01 19:17:00 85.186 kg [facility] BMI 2023-10-01 19:17:00 34.35 kg/m2 [facility] Oxygen saturation in Arterial blood by Pulse oximetry 2023-10-01 19:17:00 100 /min [facility] Systolic blood pressure 2023-09-22 18:42:00 124 mm[Hg] [facility] Diastolic blood pressure 2023-09-22 18:42:00 87 mm[Hg] [facility] Heart rate 2023-09-22 18:42:00 88 /min [facility] Body temperature 2023-09-22 18:42:00 36.72 Malou [facility] Respiratory rate 2023-09-22 18:42:00 16 /min [facility] Body height 2023-09-22 18:42:00 157.5 cm [facility] Body weight 2023-09-22 18:42:00 85.276 kg [facility] BMI 2023-09-22 18:42:00 34.39 kg/m2 [facility] Systolic blood pressure 2023-09-07 20:01:00 118 mm[Hg] [facility] Diastolic blood pressure 2023-09-07 20:01:00 81 mm[Hg] [facility] Heart rate 2023-09-07 20:01:00 93 /min [facility] Body height 2023-09-07 20:01:00 157.5 cm [facility] Body weight 2023-09-07 20:01:00 85.276 kg [facility] BMI 2023-09-07 20:01:00 34.39 kg/m2 [facility] Oxygen saturation in Arterial blood by Pulse oximetry 2023-09-07 20:01:00 97 /min [facility] Systolic blood pressure 2023-09-06 20:05:00 124 mm[Hg] [facility] Diastolic blood pressure 2023-09-06 20:05:00 81 mm[Hg] [facility] Heart rate 2023-09-06 20:02:00 111 /min [facility] Body temperature 2023-09-06 20:02:00 36.44 Malou [facility] Body height 2023-09-06 20:02:00 157.5 cm [facility] Body weight 2023-09-06 20:02:00 85.186 kg [facility] BMI 2023-09-06 20:02:00 34.35 kg/m2 [facility] Oxygen saturation in Arterial blood by Pulse oximetry 2023-09-06 20:02:00 97 /min [facility] Systolic blood pressure 2023-08-14 00:32:00 114 mm[Hg] [facility] Diastolic blood pressure 2023-08-14 00:32:00 79 mm[Hg] [facility] Heart rate 2023-08-14 00:32:00 93 /min [facility] Body temperature 2023-08-14 00:32:00 37.22 Malou [facility] Respiratory rate 2023-08-14 00:32:00 20 /min [facility] Body height 2023-08-14 00:32:00 157.5 cm [facility] Body weight 2023-08-14 00:32:00 84.369 kg [facility] BMI 2023-08-14 00:32:00 34.02 kg/m2 [facility] Oxygen saturation in Arterial blood by Pulse oximetry 2023-08-14 00:32:00 98 /min [facility] Systolic blood pressure 2023-06-25 15:54:00 117 mm[Hg] [facility] Diastolic blood pressure 2023-06-25 15:54:00 85 mm[Hg] [facility] Heart rate 2023-06-25 15:54:00 97 /min [facility] Body temperature 2023-06-25 15:54:00 36.67 Malou [facility] Respiratory rate 2023-06-25 15:54:00 16 /min [facility] Body height 2023-06-25 15:54:00 157.5 cm [facility] Body weight 2023-06-25 15:54:00 85.231 kg [facility] BMI 2023-06-25 15:54:00 34.37 kg/m2 [facility] Oxygen saturation in Arterial blood by Pulse oximetry 2023-06-25 15:54:00 98 /min [facility] Systolic blood pressure 2023-06-16 19:05:00 133 mm[Hg] [facility] Diastolic blood pressure 2023-06-16 19:05:00 89 mm[Hg] [facility] Heart rate 2023-06-16 19:05:00 103 /min [facility] Body temperature 2023-06-16 19:05:00 36.67 Malou [facility] Respiratory rate 2023-06-16 19:05:00 18 /min [facility] Body height 2023-06-16 19:05:00 157.5 cm [facility] Body weight 2023-06-16 19:05:00 84.369 kg [facility] BMI 2023-06-16 19:05:00 34.02 kg/m2 [facility] Oxygen saturation in Arterial blood by Pulse oximetry 2023-06-16 19:05:00 98 /min [facility] Systolic blood pressure 2023-06-02 21:34:00 128 mm[Hg] [facility] Diastolic blood pressure 2023-06-02 21:34:00 88 mm[Hg] [facility] Heart rate 2023-06-02 21:33:00 104 /min [facility] Body temperature 2023-06-02 21:33:00 36.17 Malou [facility] Respiratory rate 2023-06-02 21:33:00 18 /min [facility] Body height 2023-06-02 21:33:00 157.5 cm [facility] Body weight 2023-06-02 21:33:00 83.961 kg [facility] BMI 2023-06-02 21:33:00 33.86 kg/m2 [facility] Oxygen saturation in Arterial blood by Pulse oximetry 2023-06-02 21:33:00 97 /min [facility] Systolic blood pressure 2023-05-14 15:13:00 135 mm[Hg] [facility] Diastolic blood pressure 2023-05-14 15:13:00 89 mm[Hg] [facility] Heart rate 2023-05-14 15:06:00 98 /min [facility] Body height 2023-05-14 15:06:00 157.5 cm [facility] Body weight 2023-05-14 15:06:00 84.006 kg [facility] BMI 2023-05-14 15:06:00 33.87 kg/m2 [facility] Systolic blood pressure 2023-05-12 16:01:00 141 mm[Hg] [facility] Diastolic blood pressure 2023-05-12 16:01:00 99 mm[Hg] [facility] Heart rate 2023-05-12 16:00:00 101 /min [facility] Body temperature 2023-05-12 16:00:00 36.72 Malou [facility] Respiratory rate 2023-05-12 16:00:00 18 /min [facility] Body height 2023-05-12 16:00:00 157.5 cm [facility] Body weight 2023-05-12 16:00:00 83.144 kg [facility] BMI 2023-05-12 16:00:00 33.53 kg/m2 [facility] Oxygen saturation in Arterial blood by Pulse oximetry 2023-05-12 16:00:00 99 /min [facility] Systolic blood pressure 2023-01-26 20:53:00 124 mm[Hg] [facility] Diastolic blood pressure 2023-01-26 20:53:00 83 mm[Hg] [facility] Heart rate 2023-01-26 20:53:00 97 /min [facility] Body temperature 2023-01-26 20:53:00 36.89 Malou [facility] Respiratory rate 2023-01-26 20:53:00 18 /min [facility] Body height 2023-01-26 20:53:00 157.5 cm [facility] Body weight 2023-01-26 20:53:00 81.194 kg [facility] BMI 2023-01-26 20:53:00 32.74 kg/m2 [facility] Systolic blood pressure 2023-01-11 15:18:00 129 mm[Hg] [facility] Diastolic blood pressure 2023-01-11 15:18:00 87 mm[Hg] [facility] Heart rate 2023-01-11 15:18:00 85 /min [facility] Body temperature 2023-01-11 15:18:00 36.61 Malou [facility] Respiratory rate 2023-01-11 15:18:00 18 /min [facility] Body height 2023-01-11 15:18:00 157.5 cm [facility] Body weight 2023-01-11 15:18:00 80.377 kg [facility] BMI 2023-01-11 15:18:00 32.41 kg/m2 [facility] Systolic blood pressure 2022-12-31 18:11:00 130 mm[Hg] [facility] Diastolic blood pressure 2022-12-31 18:11:00 87 mm[Hg] [facility] Heart rate 2022-12-31 18:11:00 89 /min [facility] Body temperature 2022-12-31 18:11:00 36.89 Malou [facility] Body weight 2022-12-31 18:11:00 80.559 kg [facility] BMI 2022-12-31 18:11:00 32.48 kg/m2 [facility] Systolic blood pressure 2022-12-10 17:05:00 131 mm[Hg] pt from [facility] Diastolic blood pressure 2022-12-10 17:05:00 92 mm[Hg] pt from [facility] Body temperature 2022-12-10 17:04:00 37.11 Malou [facility] Respiratory rate 2022-12-10 17:04:00 17 /min [facility] Heart rate 2022-12-10 12:15:00 82 /min [facility] Oxygen saturation in Arterial blood by Pulse oximetry 2022-12-10 12:15:00 100 /min [facility] Body weight 2022-12-09 14:19:00 89.812 kg [facility] BMI 2022-12-09 14:19:00 36.21 kg/m2 [facility] Systolic blood pressure 2022-12-08 18:30:00 123 mm[Hg] [facility] Diastolic blood pressure 2022-12-08 18:30:00 81 mm[Hg] [facility] Heart rate 2022-12-08 18:30:00 97 /min [facility] Body temperature 2022-12-08 18:30:00 36.56 Malou [facility] Respiratory rate 2022-12-08 18:30:00 18 /min [facility] Body height 2022-12-08 18:30:00 157.5 cm [facility] Body weight 2022-12-08 18:30:00 89.903 kg [facility] BMI 2022-12-08 18:30:00 36.25 kg/m2 [facility] Oxygen saturation in Arterial blood by Pulse oximetry 2022-12-08 18:30:00 99 /min [facility] [facility] 2022-12-03 23:43:00 100 /min [facility] Oxygen saturation in Arterial blood by Pulse oximetry 2022-12-03 23:43:00 98 /min [facility] Systolic blood pressure 2022-12-03 23:15:00 130 mm[Hg] [facility] Diastolic blood pressure 2022-12-03 23:15:00 87 mm[Hg] [facility] Body temperature 2022-12-03 23:15:00 36.5 Malou [facility] Respiratory rate 2022-12-03 23:15:00 18 /min [facility] Body weight 2022-12-03 22:49:00 90.719 kg [facility] BMI 2022-12-03 22:49:00 36.58 kg/m2 [facility] Systolic blood pressure 2022-12-01 18:19:00 122 mm[Hg] [facility] Diastolic blood pressure 2022-12-01 18:19:00 87 mm[Hg] [facility] Heart rate 2022-12-01 18:19:00 113 /min [facility] Body temperature 2022-12-01 18:19:00 37 Malou [facility] Respiratory rate 2022-12-01 18:19:00 18 /min [facility] Body height 2022-12-01 18:19:00 157.5 cm [facility] Body weight 2022-12-01 18:19:00 90.084 kg [facility] BMI 2022-12-01 18:19:00 36.32 kg/m2 [facility] Heart rate 2022-11-25 21:00:00 102 /min [facility] Oxygen saturation in Arterial blood by Pulse oximetry 2022-11-25 21:00:00 99 /min [facility] Systolic blood pressure 2022-11-25 20:45:00 113 mm[Hg] [facility] Diastolic blood pressure 2022-11-25 20:45:00 61 mm[Hg] [facility] Body temperature 2022-11-25 20:45:00 37 Malou [facility] Respiratory rate 2022-11-25 20:45:00 18 /min [facility] Body height 2022-11-25 16:04:00 157.5 cm [facility] Body weight 2022-11-25 16:04:00 88.451 kg [facility] BMI 2022-11-25 16:04:00 35.67 kg/m2 [facility] Heart rate 2022-11-19 18:41:00 96 /min [facility] Oxygen saturation in Arterial blood by Pulse oximetry 2022-11-19 18:41:00 99 /min [facility] Systolic blood pressure 2022-11-19 17:40:00 102 mm[Hg] [facility] Diastolic blood pressure 2022-11-19 17:40:00 65 mm[Hg] [facility] Body temperature 2022-11-19 17:40:00 36.89 Malou [facility] Respiratory rate 2022-11-19 17:40:00 18 /min [facility] Body height 2022-11-19 17:40:00 157.5 cm [facility] Body weight 2022-11-19 17:40:00 89.359 kg [facility] BMI 2022-11-19 17:40:00 36.03 kg/m2 [facility] Systolic blood pressure 2022-11-17 18:18:00 126 mm[Hg] [facility] Diastolic blood pressure 2022-11-17 18:18:00 84 mm[Hg] [facility] Heart rate 2022-11-17 18:18:00 94 /min [facility] Body temperature 2022-11-17 18:18:00 36.5 Malou [facility] Respiratory rate 2022-11-17 18:18:00 18 /min [facility] Body height 2022-11-17 18:18:00 157.5 cm [facility] Body weight 2022-11-17 18:18:00 87.363 kg [facility] BMI 2022-11-17 18:18:00 35.23 kg/m2 [facility] Oxygen saturation in Arterial blood by Pulse oximetry 2022-11-17 18:18:00 99 /min [facility] Systolic blood pressure 2022-11-03 21:16:00 128 mm[Hg] [facility] Diastolic blood pressure 2022-11-03 21:16:00 86 mm[Hg] [facility] Heart rate 2022-11-03 21:16:00 93 /min [facility] Body temperature 2022-11-03 21:16:00 36.44 Malou [facility] Respiratory rate 2022-11-03 21:16:00 18 /min [facility] Body height 2022-11-03 21:16:00 157.5 cm [facility] Body weight 2022-11-03 21:16:00 88.905 kg [facility] BMI 2022-11-03 21:16:00 35.85 kg/m2 [facility] Systolic blood pressure 2022-11-02 15:44:00 120 mm[Hg] [facility] Diastolic blood pressure 2022-11-02 15:44:00 83 mm[Hg] [facility] Heart rate 2022-11-02 15:44:00 106 /min [facility] Body temperature 2022-11-02 15:44:00 36.78 Malou [facility] Respiratory rate 2022-11-02 15:44:00 18 /min [facility] Body weight 2022-11-02 15:44:00 88.361 kg [facility] BMI 2022-11-02 15:44:00 35.63 kg/m2 [facility] Systolic blood pressure 2022-10-23 18:37:00 130 mm[Hg] [facility] Diastolic blood pressure 2022-10-23 18:37:00 87 mm[Hg] [facility] Heart rate 2022-10-23 18:37:00 97 /min [facility] Body temperature 2022-10-23 18:37:00 36.67 Malou [facility] Respiratory rate 2022-10-23 18:37:00 18 /min [facility] Body weight 2022-10-23 18:37:00 88.905 kg [facility] BMI 2022-10-23 18:37:00 35.85 kg/m2 [facility] Systolic blood pressure 2022-10-22 18:37:00 124 mm[Hg] [facility] Diastolic blood pressure 2022-10-22 18:37:00 85 mm[Hg] [facility] Heart rate 2022-10-22 18:37:00 94 /min [facility] Body temperature 2022-10-22 18:37:00 36.72 Malou [facility] Body height 2022-10-22 18:37:00 157.5 cm [facility] Body weight 2022-10-22 18:37:00 88.089 kg [facility] BMI 2022-10-22 18:37:00 35.52 kg/m2 [facility] Heart rate 2022-10-11 19:15:00 101 /min [facility] Oxygen saturation in Arterial blood by Pulse oximetry 2022-10-11 19:15:00 98 /min [facility] Systolic blood pressure 2022-10-11 19:00:00 123 mm[Hg] [facility] Diastolic blood pressure 2022-10-11 19:00:00 68 mm[Hg] [facility] Body temperature 2022-10-11 19:00:00 36.44 Malou [facility] Respiratory rate 2022-10-11 19:00:00 16 /min [facility] Body height 2022-10-11 18:50:00 157.5 cm [facility] Body weight 2022-10-11 18:50:00 89.359 kg [facility] BMI 2022-10-11 18:50:00 36.03 kg/m2 [facility] Systolic blood pressure 2022-10-09 19:34:00 131 mm[Hg] [facility] Diastolic blood pressure 2022-10-09 19:34:00 84 mm[Hg] [facility] Heart rate 2022-10-09 19:34:00 103 /min [facility] Body temperature 2022-10-09 19:34:00 36.83 Malou [facility] Respiratory rate 2022-10-09 19:34:00 18 /min [facility] Body height 2022-10-09 19:34:00 157.5 cm [facility] Body weight 2022-10-09 19:34:00 88.089 kg [facility] BMI 2022-10-09 19:34:00 35.52 kg/m2 [facility] Systolic blood pressure 2022-09-26 03:30:00 113 mm[Hg] [facility] Diastolic blood pressure 2022-09-26 03:30:00 71 mm[Hg] [facility] Heart rate 2022-09-26 03:30:00 80 /min [facility] Oxygen saturation in Arterial blood by Pulse oximetry 2022-09-26 03:30:00 99 /min [facility] Body temperature 2022-09-26 02:20:00 36.5 Malou [facility] Respiratory rate 2022-09-26 02:20:00 18 /min [facility] Body height 2022-09-26 01:57:00 157.5 cm [facility] Body weight 2022-09-26 01:57:00 90.22 kg [facility] BMI 2022-09-26 01:57:00 36.38 kg/m2 [facility] Heart rate 2022-09-03 04:12:00 85 /min [facility] Oxygen saturation in Arterial blood by Pulse oximetry 2022-09-03 04:12:00 99 /min [facility] Systolic blood pressure 2022-09-03 04:00:00 114 mm[Hg] [facility] Diastolic blood pressure 2022-09-03 04:00:00 73 mm[Hg] [facility] Body temperature 2022-09-03 03:47:00 36.33 Malou [facility] Respiratory rate 2022-09-03 03:47:00 17 /min [facility] Body height 2022-09-03 03:47:00 157.5 cm [facility] Body weight 2022-09-03 03:47:00 88.451 kg [facility] BMI 2022-09-03 03:47:00 35.67 kg/m2 [facility] Systolic blood pressure 2022-02-09 20:41:00 126 mm[Hg] [facility] Diastolic blood pressure 2022-02-09 20:41:00 90 mm[Hg] [facility] Heart rate 2022-02-05 19:35:00 84 /min [facility] Body temperature 2022-02-05 19:35:00 36.5 Malou [facility] Respiratory rate 2022-02-05 19:35:00 18 /min [facility] Body height 2022-02-05 19:35:00 157.5 cm [facility] Body weight 2022-02-05 19:35:00 83.825 kg [facility] BMI 2022-02-05 19:35:00 33.80 kg/m2 [facility] Body Temperature 2019-06-12 18:15:00 98.4 [degF] [facility] Heart Rate 2019-06-12 18:15:00 98 /min [facility] Respiratory rate 2019-06-12 18:15:00 18 /min [facility] BP Systolic 2019-06-12 18:15:00 137 mm[Hg] [facility] BP Diastolic 2019-06-12 18:15:00 71 mm[Hg] [facility] Heart Rate 2019-06-12 15:36:00 118 /min [facility] BP Systolic 2019-06-12 15:36:00 140 mm[Hg] [facility] BP Diastolic 2019-06-12 15:36:00 80 mm[Hg] [facility] BMI (Body Mass Index) 2019-06-12 15:36:00 39.3 kg/m2 [facility] Weight 2019-06-12 15:26:00 215 [lb_av] [facility] Respiratory rate 2019-01-29 11:35:00 22 /min [facility] Procedures Procedure Date / Time Performed Performing Clinician Source POCT MOLECULAR FLU 2024-06-08 15:31:00 Unknown, Attending [facility] POCT MOLECULAR STREP 2024-06-08 15:26:00 Unknown, Attending [facility] POCT SARS-COV-2 ANTIGEN (BIN AX NOW) 2024-06-08 00:00:00 Carmelo Sheehan [facility] CT CHEST PULMONARY ANGIOGRAM 2024-04-26 21:49:00 Nelson Sanchez [facility] D-DIMER 2024-04-26 19:40:00 Nelson Sanchez [facility] TROPONIN I 2024-04-26 17:51:00 Nelson Sanchez [facility] BASIC METABOLIC PANEL (NA, K , CL, CO2, GLUCOSE, BUN, CREATININE, CA) 2024-04-26 17:51:00 Nelson Sanchez [facility] CBC WITH DIFF 2024-04-26 17:51:00 Nelson Sanchez [facility] HB ECG ROUTINE & RHYTHM STRIP 2024-04-26 17:02:27 Nelson Sanchez [facility] XR CHEST 1 VW 2024-04-26 16:44:30 Nelson Sanchez [facility] XR CHEST 1 VW 2024-04-21 22:27:00 Shell [facility] TROPONIN I 2024-04-21 21:47:00 Shell [facility] D-DIMER 2024-04-21 21:47:00 Shell [facility] TRANSTHORACIC ECHO (TTE) COMPLETE 2023-06 0-18 13:33:17 Nadine Zapata [facility] POCT SARS-COV-2 ANTIGEN (BIN AX NOW) 2024-03-25 21:36:00 Palak Munguia [facility] POCT MOLECULAR STREP 2024-03-25 21:26:00 Palak Munguia [facility] POCT TEST 2024-02-15 15:32:00 Suad Hameed [facility] POCT TEST 2024-02-10 14:44:00 Suad Hameed [facility] POCT SARS-COV-2 ANTIGEN (BIN AX NOW) 2024-01-29 15:19:00 Jacquelyn Finn [facility] POCT SARS-COV-2 ANTIGEN (BIN AX NOW) 2024-01-14 17:24:00 Palak Munguia [facility] ENDOSCOPY PROCEDURE DOCUMENTATION 12-13 13:23:02 Doctor Unassigned, [place] [facility] EGD (ENDO) 2023-12-09 18:41:27 Obi-Shailesh [facility] EGD (ENDO) 2023-12-09 18:41:27 Obi-Shailesh [facility] ESOPHAGOGASTRODUODENOSCOPY 2023-12-09 18:04:00 Darian Begum [facility] POCT TEST 2023-12-09 00:00:00 Honey Holcomb [facility] POCT TEST 2023-12-09 00:00:00 Honey Holcomb [facility] PPD (TB) 2023-12-01 19:49:07 Obi-Shailesh [facility] POCT URINALYSIS 2023-10-18 00:00:00 Obi-Shailesh [facility] POCT GLUCOSE (AUTOMATED) 2023-10-16 22:29:00 [facility] XR CHEST 1 VW 2023-10-16 21:12:14 [facility] POCT TEST 2023-10-16 21:01:[address] COMP. METABOLIC PANEL ([id number]) 2023-10-16 20:53:00 Camille Josue [facility] CBC WITH DIFF 2023-10-16 20:53:00 Camille Josue [facility] URINALYSIS 2023-10-16 20:53:00 Camille Josue [facility] POCT GLUCOSE (AUTOMATED) 2023-10-16 20:21:00 Doctor Unassigned, [place] [facility] PAP SMEAR-LIQUID BASED-CP 2023-09-22 19:04:00 AdMirian coles [facility] POCT SARS-COV-2 ANTIGEN (BIN AX NOW) 2023-08-14 00:20:00 Palak Munguia [facility] POCT SARS-COV-2 ANTIGEN (BIN AX NOW) 2023-06-25 16:16:00 Hali Lema [facility] POCT MOLECULAR FLU 2023-06-25 16:02:00 Unknown, Attending [facility] POCT MOLECULAR STREP 2023-06-25 16:00:00 Unknown, Attending [facility] FLU VACC (), 6 MO-6 4 YRS, .5ML, IM, QUAD (FLUCELVAX) 2023-05-12 16:10:37 Liberty Watson [facility] CONSENT FOR CONTRACEPTION 2023-01-26 05:01:00 Doctor Unassigned, [place] [facility] POCT TEST 2023-01-26 00:00:00 Adum, Mirian Greenberg [facility] POCT URINALYSIS W/O SPECIFIC GRAVITY 2023-01-11 15:24:00 Nela Bone [facility] CONSENT FOR CONTRACEPTION 2022-12-31 05:01:00 Doctor Unassigned, [place] [facility] CBC WITH DIFF 2022-12-10 08:59:00 Keven Daniel [facility] HB -MATERNAL HEMORRHAGE SCREEN 2022-12-10 08:59:00 Keven Daniel [facility] VENOUS CORD GAS 2022-12-10 02:33:00 Keven Daniel [facility] PREPARE PACKED RBC 2022-12-09 22:47:42 Adum, Mirian Dionicio [facility] CENTRAL NEURAXIAL BLOCK 2022-12-09 20:55:00 Juan Carlos Arevalo [facility] CBC WITH DIFF 2022-12-09 18:59:00 Adum, Mirian Dionicio [facility] HEPATITIS B SURFACE ANTIGEN 2022-12-09 18:59:00 Adum, Mirian Dionicio [facility] HB ABO GROUPING 2022-12-09 18:59:00 Adum, Mirian Dionicio [facility] RHO (D) IMMUNE GLOBULIN 2022-12-09 18:59:00 Keven Daniel [facility] ADC OR MAGALY ONLY - RPR 2022-12-09 18:59:00 Adum, Mirian Dionicio [facility] HIV 1/2 AG-AB WITH REFLEX 2022-12-09 18:59:00 Adum, Mirian Dionicio [facility] US PELVIS > 14 WEEKS 2022-11-26 4 17:09:56 Adum, Mirian Dionicio [facility] GC & CHLAMYDIA AMPLIFIED ASSAY 2022-11-26 4 16:55:00 Adum, Mirian Dionicio [facility] ADC ONLY - FERN TEST 2022-12-09 16:55:00 Adum, Mirian Dionicio [facility] ASSIGNMENT OF BENEFITS 2022-12-09 14:14:55 Doctor Unassigned, [place] [facility] CONSENT/REFUSAL FOR DIAGNOSI S AND TREATMENT 2022-12-09 14:14:12 Doctor Unassigned, [place] [facility] NON-STRESS TEST 2022-12-09 04:01:38 Adum, Mirian Dionicio [facility] CONSENT/REFUSAL FOR DIAGNOSI S AND TREATMENT 2022-12-03 22:40:05 Doctor Unassigned, [place] [facility] NON-STRESS TEST 2022-12-01 23:40:44 Adum, Mirian Dionicio [facility] POCT URINALYSIS W/O SPECIFIC GRAVITY 2022-12-01 18:21:00 Adum, Mirian Dionicio [facility] URINALYSIS 2022-11-25 17:55:00 Adum, Mirian L [facility] POCT GLUCOSE (AUTOMATED) 2022-11-25 17:49:00 Adum, Mirian Greenberg [facility] CONSENT/REFUSAL FOR DIAGNOSI S AND TREATMENT 2022-11-25 15:45:52 Doctor Unassigned, [place] [facility] ASSIGNMENT OF BENEFITS 2022-11-25 15:43:30 Doctor Unassigned, [place] [facility] NOTICE OF PRIVACY PRACTICES 2022-11-19 17:08:50 Doctor Unassigned, [place] [facility] CONSENT/REFUSAL FOR DIAGNOSI S AND TREATMENT 2022-11-19 17:08:27 Doctor Unassigned, [place] [facility] POCT URINALYSIS W/O SPECIFIC GRAVITY 2022-11-17 00:00:00 Adum, Mirian Greenberg [facility] ASSIGNMENT OF BENEFITS 2022-11-09 18:26:54 Doctor Unassigned, [place] [facility] POCT URINALYSIS W/O SPECIFIC GRAVITY 2022-11-03 00:00:00 Adum, Mirian Greenberg [facility] EXTERNAL PROVIDER RECORDS 2022-10-29 05:01:00 Doctor Unassigned, [place] [facility] 3 HR GLUCOSE TOLERANCE TEST 2022-10-26 16:14:00 Adum, Mirian Greenberg [facility] 2 HR GLUCOSE TOLERANCE TEST 2022-10-26 15:18:00 Adum, Mirian Greenberg [facility] 1 HR GLUCOSE TOLERANCE TEST 2022-10-26 14:19:00 Adum, Mirian Greenberg [facility] GLUCOSE FASTING 2022-10-26 13:16:00 Adum, Mirian Greenberg [facility] GLYCOSYLATED HEMOGLOBIN (A1C) 2022-10-26 13:16:00 Adum, Mirian Greenberg [facility] 3 HR GLUCOSE TOLERANCE PANEL 2022-10-26 13:16:00 Adum, Mirian Greenberg [facility] TDAP VACCINE, >11 YRS, IM 2022-10-23 18:48:09 Adum, Mirian Greenberg [facility] POCT URINALYSIS W/O SPECIFIC GRAVITY 2022-10-22 18:47:00 Adum, Mirian Greenberg [facility] POCT URINALYSIS W/O SPECIFIC GRAVITY 2022-10-12 00:00:00 Adum, Mirian Greenberg [facility] CONSENT/REFUSAL FOR DIAGNOSI S AND TREATMENT 2022-10-11 18:25:40 Doctor Unassigned, [place] [facility] AUTHORIZATION FOR RELEASE OF PHI 2022-09 05:01:00 Doctor Unassigned, [place] [facility] SGOT (ASPARTATE AMINO TRANSFER) 02:29:00 Adum, Mirian Dionicio [facility] CREATININE 2022-09-26 02:29:00 Adum, Mirian [facility] ALANINE AMINO TRANSFERASE(SGPT 1 02:29:00 Adum, [facility] LACTATE DEHYDROGENASE 2022-09-26 02:29:00 Adum, [facility] URIC ACID 2022-09-26 02:29:00 [facility]FF 2022-09-26 02:29:00 [facility] URINALYSIS 2022-09-26 02:29:00 Adum, Mirian [facility] PROTEIN CREAT RATIO URINE RANDOM 2022-09 02:29:00 Adum, Mirian [facility] CONSENT/REFUSAL FOR DIAGNOSI S AND TREATMENT 2022-09-26 01:34:01 Doctor Unassigned, [place] [facility] ASSIGNMENT OF BENEFITS 2022-09-26 01:33:46 Doctor Unassigned, [place] [facility] NOTICE OF PRIVACY PRACTICES 2022-09-03 03:15:26 Doctor Unassigned, [place] [facility] CONSENT/REFUSAL FOR DIAGNOSI S AND TREATMENT 2022-09-03 03:03:10 Doctor Unassigned, [place] [facility] GC & CHLAMYDIA AMPLIFIED ASSAY 2022-01-26 1 20:23:00 Yonny [facility] TRICHOMONAS AMPLIFIED ASSAY 2022-02-05 20:23:00 Yonny [facility] POCT TEST 2022-02-05 00:00:00 Yonny [facility] POCT URINALYSIS W/O SPECIFIC GRAVITY 2022-02-05 00:00:00 Yonny [facility] REFERRAL- REQUEST/RESPONSE 2022-01-22 05:01:00 Doctor Unassigned, [place] [facility] Encounters Start Date/Time End Date/Time Encounter Type Admission Type Attending Clinicians Care Facility Care Department Encounter ID Source 2022-12-03 19:06:52 Outpatient X [facility] [id number] [facility] 2024-09-15 09:00:00 2024-09-15 09:00:00 Outpatient R SUAD HAMEED [facility] [id number] [facility] 2023-12-14 00:00:00 2024-08-12 07:30:26 Orders Only Doctor Unassigned, [place] Doctor Unassigned, [place] [facility] (ABI) 1.840.114 350.1.13.10 4.2.7.2.686 [id number] [facility] 2024-06-19 11:00:00 2024-06-19 11:00:00 Outpatient R NADINE ZAPATA [facility] [id number] [facility] 2024-06-16 14:00:00 2024-06-16 14:00:00 Outpatient R CHARLENE ARANDA [facility] [id number] [facility] 2024-06-08 09:20:00 2024-06-08 10:06:53 Outpatient R CARMELO SHEEHAN [facility] [id number] [facility] 2024-06-08 09:20:00 2024-06-08 09:40:00 Urgent Care Carmelo Sheehan Unknown, Attending [facility] 1.840.114 350.1.13.10 4.2.7.2.686 [id number] [facility] 2024-05-19 00:00:00 2024-05-23 14:59:07 Telephone Nadine Zapata [facility] 1.840.114 350.1.13.10 4.2.7.2.686 [id number] [facility] 2024-05-19 11:00:00 2024-05-19 11:00:00 Outpatient NADINE FOWLER [facility] [id number] [facility] 2024-05-11 09:00:00 2024-05-11 09:48:23 Outpatient R CARMELO SHEEHAN [facility] [id number] [facility] 2024-05-11 09:00:00 2024-05-11 09:48:23 Urgent Care Carmelo Sheehan Unknown, Attending [facility]?JOVANILizandro [facility] [id number] 350.1.13.10 4.2.7.2.686 [id number] [facility] 2024-04-26 11:13:00 2024-04-26 17:40:00 Emergency X NELSON SANCHEZ JULIO [facility] ERT [id number] [facility] 2024-04-26 11:13:00 2024-04-26 17:40:00 Emergency Nelson Sanchez [facility] AT ON LICENSE OF [facility] [id number] 350.1.13.10 4.2.7.2.686 [id number] [facility] 2024-04-25 00:00:00 2024-04-26 12:25:34 Patient Secure Nadine Workman [facility] [id number] 350.1.13.10 4.2.7.2.686 [id number] [facility] 2024-04-21 15:57:00 2024-04-21 18:14:00 Emergency TIANA DUGAN [facility] ERT [id number] [facility] 2024-04-21 15:57:00 2024-04-21 18:14:00 Emergency Ashley Beavers Christopher [facility] AT ON LICENSE OF [facility] [id number] 350.1.13.10 4.2.7.2.686 [id number] [facility] 2024-04-18 00:00:00 2024-04-19 09:00:15 Telephone Nadine Zapata [facility] 1.2.840.114 350.1.13.10 4.2.7.2.686 [id number] [facility] 2024-04-14 07:56:21 2024-04-14 23:59:00 Outpatient R NADINE ZAPATA [facility] [id number] [facility] 2024-04-14 07:56:21 2024-04-14 23:59:00 Hospital Encounter Nadine ZapataPreethiFaye [facility] 1.2.840.114 350.1.13.10 4.2.7.2.686 [id number] [facility] 2024-04-14 07:56:12 2024-04-14 23:59:00 Hospital Encounter Nadine ZapataPreethiFaye [facility] 1.2.840.114 350.1.13.10 4.2.7.2.686 [id number] [facility] 2024-04-05 09:30:00 2024-04-05 10:30:51 Outpatient R NADINE ZAPATA [facility] [id number] [facility] 2024-04-05 09:30:00 2024-04-05 10:30:51 Office Visit Nadine ZapataFaye [facility] 1.2.840.114 350.1.13.10 4.2.7.2.686 [id number] [facility] 2024-03-27 00:00:00 2024-03-27 23:00:18 Refill Bola-Shailesh , [place] [facility] 1..840.114 350.1.13.10 4.2.7.2.686 [id number] [facility] 2024-03-27 08:16:00 2024-03-27 09:59:00 Emergency X ASHLEY BEAVERS ERICCA [facility] ERT [id number] [facility] [facility] 2024-03-27 08:16:00 2024-03-27 09:59:00 Emergency Nelson Sanchez Ericca D [facility] AT ON LICENSE OF [facility] 1..840.114 350.1.13.10 4.2.7.2.686 [id number] [facility] 2024-02-22 00:00:00 2024-03-25 18:22:26 Patient Secure Msg Doctor Unassigned, [place] Doctor Unassigned, [place] [facility] 1..840.114 350.1.13.10 4.2.7.2.686 [id number] [id number] [facility] 2024-03-25 16:00:00 2024-03-25 16:31:00 Outpatient R PALAK MUNGUIA [facility] [id number] [facility] 2024-03-25 16:00:00 2024-03-25 16:31:00 Urgent Care Palak Munguia Unknown, Attending [facility] 1..840.114 350.1.13.10 4.2.7.2.686 [id number] [facility] 2024-02-15 10:15:00 2024-02-15 10:49:40 Outpatient SUAD MCKEON [facility] [id number] [facility] 2024-02-15 10:15:00 2024-02-15 10:49:40 Office Visit Suad Hameed [facility] MANAGER PRIMARY CARE [facility] 1.840.114 350.1.13.10 4.2.7.2.686 [id number] [facility] 2024-02-14 00:00:00 2024-02-14 15:28:06 Telephone Suad Hameed [facility] MANAGER PRIMARY CARE [facility] 1..840.114 350.1.13.10 4.2.7.2.686 [id number] [facility] 2024-02-10 08:30:00 2024-02-10 09:05:26 Outpatient R YOSEPHSUAD [facility] [id number] [facility] 2024-02-10 08:30:00 2024-02-10 09:05:26 [facility] 1.840.114 350.1.13.10 4.2.7.2.686 [id number] [facility] 2024-02-09 13:30:00 2024-02-09 13:30:00 Outpatient MIRIAN SCOTT VIVIAN [facility] [id number] [facility] 2024-02-01 00:00:00 2024-02-01 16:49:24 Patient Secure [facility]Mirian Briggs [facility] 1..840.114 350.1.13.10 4.2.7.2.686 [id number] [facility] 2024-01-29 10:00:00 2024-01-29 10:29:28 Outpatient MAGED LOPEZ [facility] [id number] [facility] 2024-01-29 10:00:00 2024-01-29 10:29:28 Urgent Care Maged Brown Unknown, [facility]ending [facility] 1.84.114 350.1.13.10 4.2.7.2.686 [id number] [facility] 2024-01-14 12:20:00 2024-01-14 12:40:00 Urgent Care Palak Munguia Unknown, Attending [facility] 1.84.114 350.1.13.10 4.2.7.2.686 [id number] [facility] 2024-01-14 12:20:00 2024-01-14 12:20:00 Outpatient R PALAK MUNGUIA [facility] [id number] [facility] 2024-01-05 13:20:00 2024-01-05 13:20:00 Outpatient R OBI-SHAILESH , LIBERTY OBI-SHAILESH , [facility] [id number] [facility] 2023-11-19 00:00:00 2023-12-25 18:20:32 Patient Secure Msg Doctor Unassigned, [place] [facility] 1.84.114 350.1.13.10 4.2.7.2.686 [id number] 019 [id number] [facility] 2023-12-23 10:15:00 2023-12-23 10:51:26 Outpatient R OBI-SHAILESH , LIBERTY OBI-SHAILESH , [facility] [id number] [facility] 2023-12-23 10:15:00 2023-12-23 10:30:00 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 Lab, Ang - Db Obi-Shailesh , [facility] 1.840.114 350.1.13.10 4.2.7.2.686 [id number] [facility] 2023-12-22 00:00:00 2023-12-22 16:43:11 Patient Secure Msg Nwajei, [facility] 1.840.114 350.1.13.10 4.2.7.2.686 [id number] [facility] 2023-12-21 15:00:00 2023-12-21 16:22:55 Outpatient R [facility]I [facility] [id number] [facility] 2023-12-21 15:00:00 2023-12-21 16:22:55 Office Visit Rosi [facility] 1.2840.114 350.1.13.10 4.2.7.2.686 [id number] [facility] 2023-12-21 14:45:00 2023-12-21 15:00:00 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 Lab, Júnior Deluca Rosi [facility] 1.84.114 350.1.13.10 4.2.7.2.686 [id number] [facility] 2023-11-11 00:00:00 2023-12-18 18:25:05 Patient Secure Msg Nga Wisdom [facility] 1.84.114 350.1.13.10 4.2.7.2.686 [id number] [facility] 2023-12-14 00:00:00 2023-12-16 08:18:23 Patient Secure Msg Obi-ShaileshLiberty dyer [facility] 1.84.114 350.1.13.10 4.2.7.2.686 [id number] 044 [id number] [facility] 2023-12-09 12:34:00 2023-12-09 14:51:00 Outpatient R DARIAN BEGUM [facility] JUSTO [id number] [facility] 2023-12-09 12:34:00 2023-12-09 14:51:00 Hospital Encounter Darian Begum [facility] 1.2.840.114 350.1.13.10 4.2.7.2.686 [id number] [id number] [facility] 2023-12-09 13:30:00 2023-12-09 14:00:00 Surgery Darian Begum [facility] 1.2.840.114 350.1.13.10 4.2.7.2.686 [id number] 020 [id number] [facility] 2023-12-03 15:00:00 2023-12-03 16:59:34 Outpatient R SASHA GIBSON [facility] [id number] [facility] 2023-12-03 15:00:00 2023-12-03 15:20:00 Nurse Visit Nurse, [facility] S[facility] [place]ows [facility] PROFESSIO NAL BUILDING 1..840.114 350.1.13.10 4.2.7.2.686 [id number] 044 [id number] [facility] 2023-12-03 10:00:00 2023-12-03 10:00:00 Outpatient R [facility] [id number] [facility] 2023-12-01 15:40:00 2023-12-01 15:40:00 Office Visit Liberty Watson [facility] PROFESSIO NAL BUILDING 1.2.840.114 350.1.13.10 4.2.7.2.686 [id number] [facility] 2023-12-01 15:40:00 2023-12-01 14:56:47 Outpatient R LIBERTY WATSON UZOMA [facility] [id number] [facility] 2023-11-25 11:30:00 2023-11-25 11:58:27 Outpatient R SOUMYA BAXTER [facility] [id number] [facility] 2023-11-25 11:30:00 2023-11-25 11:58:27 Nurse Visit Visit, [facility] Dermatology Nurse Soumya Baxter [facility] 1.2840.114 350.1.13.10 4.2.7.2.686 [id number] [facility] 2023-11-19 13:40:00 2023-11-19 14:24:48 Outpatient R HUE GUSTAFSON [facility] [id number] [facility] 2023-11-19 13:40:00 2023-11-19 14:00:00 Urgent Care Hue Gustafson, Attending [facility] 1..840.114 350.1.13.10 4.2.7.2.686 [id number] [facility] 2023-10-07 00:00:00 2023-11-13 18:10:54 Patient Secure Msg [facility] Watson [facility] 1.2.840.114 350.1.13.10 4.2.7.2.686 [id number] 044 [id number] [facility] 2023-11-08 15:00:00 2023-11-08 15:35:09 Outpatient R CHUCK LIU [facility] [id number] [facility] 2023-11-08 15:00:00 2023-11-08 15:35:09 Office Visit Chuck Liu [facility] 1.840.114 350.1.13.10 4.2.7.2.686 [id number] [facility] 2023-10-04 00:00:00 2023-11-06 18:09:41 Patient Secure Msg Doctor Unassigned, [place] [facility] 1.2840.114 350.1.13.10 4.2.7.2.686 [id number] [facility] 2023-10-04 00:00:00 2023-11-06 18:09:28 Patient Secure Msg Dago Ibarra [facility] 1.2840.114 350.1.13.10 4.2.7.2.686 [id number] [id number] [facility] 2023-10-05 00:00:00 2023-11-06 18:08:36 Patient Secure Msg Doctor Unassigned, [place] [facility] BUILD[facility] 1.2840.114 350.1.13.10 4.2.7.2.686 [id number] 044 [id number] [facility] 2023-11-04 14:30:00 2023-11-04 14:43:31 Outpatient R CHUCK LIU [facility] [id number] [facility] 2023-11-04 14:30:00 2023-11-04 14:43:31 Office Visit Nga Wisdom [facility] 1.2840.114 350.1.13.10 4.2.7.2.686 [id number] 027 [id number] [facility] 2023-11-04 13:00:00 2023-11-04 13:15:00 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, Adc Lab Obi-ShaileshLiberty lowe [facility] BUILDING 1.2840.114 350.1.13.10 4.2.7.2.686 [id number] [facility] 2023-11-01 10:00:00 2023-11-01 10:00:00 Outpatient R [facility] [id number] [facility] 2023-10-26 00:00:00 2023-10-26 00:00:00 Telephone [place], [facility] 1.2.840.114 350.1.13.10 4.2.7.2.686 [id number] [id number] [facility] 2023-10-25 11:30:00 2023-10-25 11:45:00 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 [facility] [place], [facility] 1.2.840.114 350.1.13.10 4.2.7.2.686 [id number] [facility] 2023-10-25 11:30:00 2023-10-25 11:30:00 Outpatient R PENNINGTONDAVIDCHUCHO [facility] [id number] [facility] 2023-10-25 11:00:00 2023-10-25 11:30:00 Office Visit Glory [facility] 1.2.840.114 350.1.13.10 4.2.7.2.686 [id number] 071 [id number] [facility] 2023-10-25 00:00:00 2023-10-25 00:00:00 Telephone Glory [facility] 1.2.840.114 350.1.13.10 4.2.7.2.686 [id number] [id number] [facility] 2023-10-25 00:00:00 2023-10-25 00:00:00 Patient Secure Msg [place], [facility] 1.2.840.114 350.1.13.10 4.2.7.2.686 [id number] [id number] [facility] 2023-10-20 00:00:00 2023-10-20 00:00:00 Telephone Sheyla Moore [facility] 1.2.840.114 350.1.13.10 4.2.7.2.686 [id number] 071 [id number] [facility] 2023-10-18 13:00:00 2023-10-18 13:34:24 [facility] [id number] [facility] 2023-10-18 13:00:00 2023-10-18 13:34:24 [facility] 1.2840.114 350.1.13.10 4.2.7.2.686 [id number] [id number] [facility] 2023-10-16 15:23:00 2023-10-16 17:53:00 Emergency X JOSELO, [facility] ERT [id number] [facility] 2023-10-16 15:23:00 2023-10-16 17:53:00 [facility].20.114 350.1.13.10 4.2.7.2.686 [id number] [facility] 2023-10-13 00:00:00 2023-10-13 00:00:00 [facility]ill [facility] 1.20.114 350.1.13.10 4.2.7.2.686 [id number] 044 [id number] [facility] 2023-10-12 00:00:00 2023-10-12 00:00:00 Letter (Out) [facility] 1.20.114 350.1.13.10 4.2.7.2.686 [id number] [facility] 2023-10-12 00:00:00 2023-10-12 00:00:00 [facility]phone [facility] 1.20.114 350.1.13.10 4.2.7.2.686 [id number] 044 [id number] [facility] 2023-10-07 10:00:00 2023-10-07 10:15:00 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 [facility] Teresa Interiano Tha Jordan [facility] 1.2.840.114 350.1.13.10 4.2.7.2.686 [id number] [facility] 2023-10-07 09:00:00 2023-10-07 09:30:00 Office Visit PostSheyla mejía [facility] 1.2.840.114 350.1.13.10 4.2.7.2.686 [id number] 071 [id number] [facility] 2023-10-07 09:00:00 2023-10-07 09:00:00 Outpatient THA GARBER [facility] [id number] [facility] 2023-10-07 00:00:00 2023-10-07 00:00:00 Telephone [facility] 1.2840.114 350.1.13.10 4.2.7.2.686 [id number] 044 [id number] [facility] 2023-10-05 00:00:00 2023-10-05 00:00:00 [facility]phone [facility] 1.2.840.114 350.1.13.10 4.2.7.2.686 [id number] 044 [id number] [facility] 2023-10-03 00:00:00 2023-10-03 00:00:00 Patient Secure Msg Ibarra Kentonciaran [facility] BUILDING 1.2.840.114 350.1.13.10 4.2.7.2.686 [id number] 044 [id number] [facility] 2023-10-01 15:15:00 2023-10-01 15:30:00 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, Adc Lab BolaLucioShailesh Liberty [facility] BUILDING 1..840.114 350.1.13.10 4.2.7.2.686 [id number] [facility] 2023-10-01 14:00:00 2023-10-01 15:10:37 Outpatient R STACEY KIKIZahraaCiaran LILLY [facility]aCiaran [facility] [id number] [facility] 2023-10-01 14:00:00 2023-10-01 14:30:00 Office Visit Dago Ibarra [facility] BUILDING 1.840.114 350.1.13.10 4.2.7.2.686 [id number] [id number] [facility] 2023-09-22 13:30:00 2023-09-22 14:07:04 Outpatient R MIRIAN WALL [facility] [id number] [facility] 2023-09-22 13:30:00 2023-09-22 14:07:04 Office Visit SachinsharynRochelleMirian Dionicio [facility] 1.840.114 350.1.13.10 4.2.7.2.686 [id number] [facility] 2023-09-19 00:00:00 2023-09-19 00:00:00 Patient Secure Msg Doctor Unassigned, [place] [facility] 1.840.114 350.1.13.10 4.2.7.2.686 [id number] [facility] 2023-09-14 00:00:00 2023-09-14 00:00:00 Refill Liberty Watson [facility] BUILDING 1.2840.114 350.1.13.10 4.2.7.2.686 [id number] 044 [id number] [facility] 2023-09-09 00:00:00 2023-09-09 00:00:00 Refill Obrobbin-Shailesh [facility] NAL BUILDING 1.2840.114 350.1.13.10 4.2.7.2.686 [id number] 044 [id number] [facility] 2023-09-08 00:00:00 2023-09-08 00:00:00 Telephone Rosi [facility] 1.284.114 350.1.13.10 4.2.7.2.686 [id number] [facility] 2023-09-08 00:00:00 2023-09-08 00:00:00 Telephone Rosi [facility] 1.84.114 350.1.13.10 4.2.7.2.686 [id number] 220 [id number] [facility] 2023-09-07 15:00:00 2023-09-07 15:40:26 Outpatient R [facility] [id number] [facility] 2023-09-07 15:00:00 2023-09-07 15:40:26 Office Visit Rosi [facility] 1.2840.114 350.1.13.10 4.2.7.2.686 [id number] [facility] 2023-09-07 00:00:00 2023-09-07 00:00:00 Telephone Shirley [facility] BUILDING 1.2840.114 350.1.13.10 4.2.7.2.686 [id number] [id number] [facility] 2023-09-07 00:00:00 2023-09-07 00:00:00 Telephone Charlene Aranda [facility] 1..840.114 350.1.13.10 4.2.7.2.686 [id number] [facility] 2023-09-07 00:00:00 2023-09-07 00:00:00 Patient Secure Msg Doctor Unassigned, [place] [facility] 1.840.114 350.1.13.10 4.2.7.2.686 [id number] [facility] 2023-09-07 00:00:00 2023-09-07 00:00:00 Telephone Mirian Wall [facility] BUILD[facility] 1.840.114 350.1.13.10 4.2.7.2.686 [id number] 134 [id number] [facility] 2023-09-06 16:15:00 2023-09-06 16:30:00 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 Lab, Júnior - Yosi Watson [facility] 1..840.114 350.1.13.10 4.2.7.2.686 [id number] [facility] 2023-09-06 16:15:00 2023-09-06 16:15:00 Outpatient R OBI-ILDA CASHMA BOLA-SHAILESH [facility] [id number] [facility] 2023-09-06 15:00:00 2023-09-06 15:21:14 Office Visit Bola-Shailesh [facility] BUILDING 1..840.114 350.1.13.10 4.2.7.2.686 [id number] [id number] [facility] 2023-09-06 00:00:00 2023-09-06 00:00:00 Refill Obi-Shailesh , Liberty [facility] PROF[facility] NAL BUILDING 1.2.840.114 350.1.13.10 4.2.7.2.686 [id number] [id number] [facility] 2023-09-06 00:00:00 2023-09-06 00:00:00 Telephone Skinnyfatourobbin [facility] BUILDING 1.2.840.114 350.1.13.10 4.2.7.2.686 [id number] [facility] 2023-09-01 13:20:00 2023-09-01 13:20:00 Outpatient R OBI-SHAILESH , LIBERTY OBI-SHAILESH , [facility] [id number] [facility] 2023-08-20 00:00:00 2023-08-20 00:00:00 Refill Rosi [facility] NIR?[facility] BUILDING 1.2.840.114 350.1.13.10 4.2.7.2.686 [id number] [facility] 2023-08-13 18:20:00 2023-08-13 18:40:00 Urgent Care Hali Lema Unknown, Attending [facility] MED[facility] BUILDING 1..840.114 350.1.13.10 4.2.7.2.686 [id number] [facility] 2023-08-13 18:20:00 2023-08-13 18:20:00 Outpatient R HALI LEMA [facility] [id number] [facility] 2023-06-25 09:20:00 2023-06-25 10:22:05 Outpatient R CARMELO SHEEHAN [facility] [id number] [facility] 2023-06-25 09:20:00 2023-06-25 10:22:05 Urgent Care Carmelo Sheehan Unknown, Attending [facility] 1.2.840.114 350.1.13.10 4.2.7.2.686 [id number] [facility] 2023-06-16 13:00:00 2023-06-16 13:26:21 Outpatient R OBI-SHAILESH , LIBERTY OBI-SHAILESH , [facility] [id number] [facility] 2023-06-16 13:00:00 2023-06-16 13:26:21 Office Visit Obi-Shailesh [facility] 1.2.840.114 350.1.13.10 4.2.7.2.686 [id number] [id number] [facility] 2023-06-16 00:00:00 2023-06-16 00:00:00 Telephone Obrobbin-Shailesh , [facility] BUILDING 1.2.840.114 350.1.13.10 4.2.7.2.686 [id number] [id number] [facility] 2023-06-16 00:00:00 2023-06-16 00:00:00 Telephone Obi-Shailesh [facility] 1.2.840.114 350.1.13.10 4.2.7.2.686 [id number] [id number] [facility] 2023-06-15 09:00:00 2023-06-15 09:00:00 Outpatient R OBI-SHAILESH , LIB[facility] [id number] 2023-06-14 13:00:00 2023-06-14 13:00:00 Outpatient R OBI-SHAILESH , LIBERTY OBI-SHAILESH , LIBERTY [facility] [id number] [facility] 2023-06-02 15:20:00 2023-06-02 15:49:08 Outpatient R OBI-SHAILESH , LIBERTY OBI-SHAILESH , LIBERTY [facility] [id number] [facility] 2023-06-02 15:20:00 2023-06-02 15:49:08 Office Visit Obrobbin-Liberty Cash [facility] 1..840.114 350.1.13.10 4.2.7.2.686 [id number] [facility] 2023-05-27 11:00:00 2023-05-27 11:00:00 Outpatient R OBI-SHAILESH , LIBERTY OBI-SHAILESH , LIBERTY [facility] [id number] [facility] 2023-05-26 09:20:00 2023-05-26 09:20:00 Outpatient R OBI-SHAILESH LIBERTY OBI-SHAILESH , LIBERTY [facility] [id number] [facility] 2023-05-15 00:00:00 2023-05-15 00:00:00 Patient Secure Msg Doctor Unassigned, [place] [facility] 1..840.114 350.1.13.10 4.2.7.2.686 [id number] [facility] 2023-05-14 09:00:00 2023-05-14 10:00:40 Outpatient R CHARLENE ARANDA [facility] [id number] [facility] 2023-05-14 09:00:00 2023-05-14 10:00:40 Office Visit Charlene Aranda [facility] 1.2.840.114 350.1.13.10 4.2.7.2.686 [id number] [facility] 2023-05-12 11:00:00 2023-05-12 11:15:00 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, Ad[facility] Obi-Shailesh [facility] 1..840.114 350.1.13.10 4.2.7.2.686 [id number] [facility] 2023-05-12 10:00:00 2023-05-12 10:47:03 Outpatient R OBI-SHAILESH , [place] OBI-SHAILESH , [facility] [id number] [facility] 2023-05-12 10:00:00 2023-05-12 10:47:03 Office Visit Obi-Shailesh , [facility] 1..840.114 350.1.13.10 4.2.7.2.686 [id number] [facility] 2023-05-10 08:00:00 2023-05-10 08:00:00 Outpatient R OBI-SHAILESH , LIBERTY OBI-SHAILESH , [facility] [id number] [facility] 2023-03-10 13:30:00 2023-03-10 13:30:00 Outpatient R OLAYINKA CHERRY [facility] [id number] [facility] 2023-02-04 00:00:00 2023-02-04 00:00:00 Patient Secure Mirian Castorena [facility] 1.2.840.114 350.1.13.10 4.2.7.2.686 [id number] [facility] 2023-02-02 00:00:00 2023-02-02 00:00:00 Patient Secure Msg Adsharyn, Mirian Greenberg [facility] 1.2.840.114 350.1.13.10 4.2.7.2.686 [id number] [facility] 2023-01-26 15:30:00 2023-01-26 16:41:21 Outpatient R ADMIRIAN COLES [facility] [id number] [facility] 2023-01-26 15:30:00 2023-01-26 16:41:21 Routine Visit Ad, Mirian Greenberg [facility] 1.2.840.114 350.1.13.10 4.2.7.2.686 [id number] 134 [id number] [facility] 2023-01-26 00:00:00 2023-01-26 00:00:00 Orders Only Doctor Unassigned, [place] [facility] 1.2.840.114 350.1.13.10 4.2.7.2.686 [id number] [facility] 2023-01-11 10:00:00 2023-01-11 11:17:26 Outpatient R DENY S, NELA CJ-TERRY STYREENELA [facility] [id number] [facility] 2023-01-11 10:00:00 2023-01-11 10:30:00 Office Visit Tyree Cruzsol [facility] 1.2.840.114 350.1.13.10 4.2.7.2.686 [id number] [facility] 2022-12-31 13:00:00 2022-12-31 13:50:06 Outpatient R ADMIRIAN COLES [facility] [id number] [facility] 2022-12-31 13:00:00 2022-12-31 13:50:06 Routine Visit Ad, Mirian L [facility] 1.2.840.114 350.1.13.10 4.2.7.2.686 [id number] [facility] 2022-12-31 00:00:00 2022-12-31 00:00:00 Orders Only Doctor Unassigned, [place] [facility] 1.2.840.114 350.1.13.10 4.2.7.2.686 [id number] [facility] 2022-12-25 14:15:00 2022-12-25 14:15:00 Outpatient P [facility] [id number] [facility] 2022-12-24 00:00:00 2022-12-24 00:00:00 Telephone AdMirian coles [facility] 1.2840.114 350.1.13.10 4.2.7.2.686 [id number] 134 [id number] [facility] 2022-12-22 13:00:00 2022-12-22 13:00:00 Outpatient R MIRIAN WALL [facility] [id number] [facility] 2022-12-15 13:00:00 2022-12-15 13:00:00 Outpatient R MIRIAN WALL [facility] [id number] [facility] 2022-12-14 00:00:00 2022-12-14 00:00:00 Encounter 1.2.840.1 [id number] 3.104.2.7 .[id number] 1.2.840.114 350.1.13.10 4.2.7.2.696 [id number] [facility] 2022-12-09 09:22:00 2022-12-10 12:55:00 Hospital Encounter Keven Daniel Cam AdRochelle colesian Dionicio [facility] 1.2.840.114 350.1.13.10 4.2.7.2.686 [id number] [id number] [facility] 2022-12-09 09:22:00 2022-12-10 12:55:00 Inpatient X ADUM, MIRIAN CHICO [facility] [id number] [facility] 2022-12-09 15:55:00 2022-12-09 21:22:00 Anesthesia Event Juan Carlos Arevalo [facility] 1.2840.114 350.1.13.10 4.2.7.2.686 [id number] [facility] 2022-12-09 00:00:00 2022-12-09 00:00:00 Orders Only Doctor Unassigned, [place] [facility] 1.2840.114 350.1.13.10 4.2.7.2.686 [id number] [facility] 2022-12-09 00:00:00 2022-12-09 00:00:00 Telephone Adum, Mirian Greenberg [facility] 1.2.840.114 350.1.13.10 4.2.7.2.686 [id number] 134 [id number] [facility] 2022-12-08 13:00:00 2022-12-08 14:06:40 Outpatient R ADSHARYN, MIRIAN [facility] [id number] [facility] 2022-12-08 13:00:00 2022-12-08 14:06:40 Routine Visit Room, [facility] Adsharyn, [facility] 1.2.840.114 350.1.13.10 4.2.7.2.686 [id number] 134 [id number] [facility] 2022-12-03 18:04:00 2022-12-03 19:06:00 Outpatient X ADUM, MIRIAN RIMEET ROY [id number] [facility] 2022-12-03 18:04:00 2022-12-03 19:06:00 Emergency Adum, Mirian Greenberg [facility] 1.840.114 350.1.13.10 4.2.7.2.686 [id number] [id number] [facility] 2022-12-02 13:00:00 2022-12-02 14:00:00 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 3, [facility] Us Room YañezJamey marquez [facility] 1.840.114 350.1.13.10 4.2.7.2.686 [id number] [facility] 2022-12-02 13:00:00 2022-12-02 13:00:00 Outpatient P JAMEY YAÑ[facility]Z [facility] [id number] [facility] 2022-12-02 00:00:00 2022-12-02 00:00:00 Case Management Timo Corona [facility] 1.840.114 350.1.13.10 4.2.7.2.686 [id number] 134 [id number] [facility] 2022-12-01 13:00:00 2022-12-01 13:53:15 Outpatient R MIRIAN WALL [facility] [id number] [facility] 2022-12-01 13:00:00 2022-12-01 13:53:15 Routine Visit Room, [facility] Mirian Wall [facility] 1.2.840.114 350.1.13.10 4.2.7.2.686 [id number] 134 [id number] [facility] 2022-12-01 13:00:00 2022-12-01 13:00:00 Outpatient R MIRIAN WALL [facility] [id number] [facility] 2022-11-25 10:37:00 2022-11-25 16:55:00 Outpatient P [facility] [id number] [facility] 2022-11-25 10:37:00 2022-11-25 16:55:00 Hospital Encounter Adum, Mirian Greenberg [facility] 1.2840.114 350.1.13.10 4.2.7.2.686 [id number] [facility] 2022-11-25 00:00:00 2022-11-25 00:00:00 Telephone Adum, Mirian Greenberg [facility] 1.2840.114 350.1.13.10 4.2.7.2.686 [id number] 134 [id number] [facility] 2022-11-24 10:00:00 2022-11-24 10:00:00 Outpatient R [facility] [id number] [facility] 2022-11-22 00:00:00 2022-11-22 00:00:[address] Nurse T[address] Abigail Neely [facility] 1.0.114 350.1.13.10 4.2.7.2.686 [id number] [facility] 2022-11-19 12:21:00 2022-11-19 13:45:00 Outpatient X ADMIRIAN COLES [facility] [id number] [facility] 2022-11-19 12:21:00 2022-11-19 13:45:00 Emergency AdumMirian [facility] 1.2840.114 350.1.13.10 4.2.7.2.686 [id number] [facility] 2022-11-17 13:15:00 2022-11-17 13:42:03 Outpatient R ADMIRIAN COLES [facility] [id number] [facility] 2022-11-17 13:15:00 2022-11-17 13:42:03 Routine Visit AdMirian coles [facility] 1.20.114 350.1.13.10 4.2.7.2.686 [id number] 134 [id number] [facility] 2022-11-09 13:27:57 2022-11-09 14:18:09 Outpatient R ADMIRIAN COLES R[facility]ET [facility] [id number] [facility] 2022-11-09 13:30:00 2022-11-09 13:45:00 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, [facility] Lab Adum, Mirian Green[facility] 1.2.840.114 350.1.13.10 4.2.7.2.686 [id number] [facility] 2022-11-09 00:00:00 2022-11-09 00:00:00 Orders Only Doctor Unassigned, [place] [facility] 1.2.840.114 350.1.13.10 4.2.7.2.686 [id number] [facility] 2022-11-09 00:00:00 2022-11-09 00:00:00 Telephone AdsharynMirian [facility] 1.2.840.114 350.1.13.10 4.2.7.2.686 [id number] 134 [id number] [facility] 2022-11-03 16:00:00 2022-11-03 16:43:05 Outpatient R ADSHARYN MIRIAN [facility] [id number] [facility] 2022-11-03 16:00:00 2022-11-03 16:43:05 Routine Visit Adsharyn Mirian Greenberg [facility] 1.2.840.114 350.1.13.10 4.2.7.2.686 [id number] [facility] 2022-11-02 10:00:00 2022-11-02 10:41:26 Outpatient R ADUM MIRIAN [facility] [id number] [facility] 2022-11-02 10:00:00 2022-11-02 10:41:26 Nurse Visit Nurse, [facility] Adum, Mirian Greenberg [facility] 1.2.840.114 350.1.13.10 4.2.7.2.686 [id number] [facility] 2022-10-29 00:00:00 2022-10-29 00:00:00 Orders Only Doctor Unassigned, [place] [facility] 1.2.840.114 350.1.13.10 4.2.7.2.686 [id number] [facility] 2022-10-29 00:00:00 2022-10-29 00:00:00 Telephone Adum, Mirian Greenberg [facility] 1.2.840.114 350.1.13.10 4.2.7.2.686 [id number] 134 [id number] [facility] 2022-10-29 00:00:00 2022-10-29 00:00:00 Telephone Adum, Mirian Greenberg [facility] 1.2.840.114 350.1.13.10 4.2.7.2.686 [id number] 134 [id number] [facility] 2022-10-28 00:00:00 2022-10-28 00:00:00 Telephone Adum, Mirian Greenberg [facility] 1.2.840.114 350.1.13.10 4.2.7.2.686 [id number] 134 [id number] [facility] 2022-10-28 00:00:00 2022-10-28 00:00:00 Case Management Timo Corona [facility] 1.2.840.114 350.1.13.10 4.2.7.2.686 [id number] 134 [id number] [facility] 2022-10-26 08:15:00 2022-10-26 11:25:08 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, [facility] Lab Adum, Mirian Greenberg [facility] 1.2.840.114 350.1.13.10 4.2.7.2.686 [id number] [facility] 2022-10-26 08:15:00 2022-10-26 08:15:00 Outpatient R ADUM, MIRIAN [facility] [id number] [facility] 2022-10-26 00:00:00 2022-10-26 00:00:00 Telephone Adum, Mirian [facility] 1.2.840.114 350.1.13.10 4.2.7.2.686 [id number] [id number] [facility] 2022-10-23 14:00:00 2022-10-23 14:15:00 Nurse Visit Nurse, [facility] 1.2.840.114 350.1.13.10 4.2.7.2.686 [id number] 134 [id number] [facility] 2022-10-23 08:45:00 2022-10-23 09:16:08 Outpatient R ADUM, MIRIAN [facility] [id number] [facility] 2022-10-23 08:45:00 2022-10-23 09:00:00 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, [facility] 1.2.840.114 350.1.13.10 4.2.7.2.686 [id number] [facility] 2022-10-22 13:45:00 2022-10-22 14:35:18 Outpatient R ADUM, MIRIAN [facility] [id number] [facility] 2022-10-22 13:45:00 2022-10-22 14:35:18 Routine Visit Adum, [facility] 1.2.840.114 350.1.13.10 4.2.7.2.686 [id number] 134 [id number] [facility] 2022-10-12 00:00:00 2022-10-12 00:00:00 Telephone Adum, Mirian Greenberg [facility] 1.2.840.114 350.1.13.10 4.2.7.2.686 [id number] [facility] 2022-10-11 13:33:00 2022-10-11 14:55:00 Outpatient X CORONA-TERRY S, NELA CORONA-TERRY S, NELA [facility] [id number] [facility] 2022-10-11 13:33:00 2022-10-11 14:55:00 Emergency Corona-Terry s, Nela [facility] 1.2840.114 350.1.13.10 4.2.7.2.686 [id number] [facility] 2022-10-09 14:00:00 2022-10-09 15:41:13 Outpatient R ADSHARYN, MIRIAN [facility] [id number] [facility] 2022-10-09 14:00:00 2022-10-09 15:41:13 Initial Visit Adsharyn, Mirian Greenberg [facility] 1.2.840.114 350.1.13.10 4.2.7.2.686 [id number] 134 [id number] [facility] 2022-10-09 00:00:00 2022-10-09 00:00:00 Orders Only Doctor Unassigned, [place] [facility] 1.2.840.114 350.1.13.10 4.2.7.2.686 [id number] [facility] 2022-09-25 21:02:00 2022-09-25 22:42:00 Outpatient X MIRIAN WALL [facility] [id number] [facility] 2022-09-25 21:02:00 2022-09-25 22:42:00 Emergency AdMirian coles [facility] 1.2.840.114 350.1.13.10 4.2.7.2.686 [id number] [id number] [facility] 2022-09-25 00:00:00 2022-09-25 00:00:00 Orders Only Doctor Unassigned, [place] [facility] 1.2.840.114 350.1.13.10 4.2.7.2.686 [id number] [facility] 2022-09-02 21:12:00 2022-09-02 22:20:00 Outpatient P KEVEN DANIEL [facility] [id number] [facility] 2022-09-02 21:12:00 2022-09-02 22:20:00 Hospital Encounter Keven Daniel [facility] 1.2.840.114 350.1.13.10 4.2.7.2.686 [id number] [facility] 2022-08-17 00:00:00 2022-08-17 00:00:00 Outpatient GC_SWHATBIC _C[facility]_S PRIV PRIV [id number] [facility] 2022-08-14 00:00:00 2022-08-14 00:00:00 Outpatient GC_SWHATBIC _[facility]_S PRIV PRIV [id number] [facility] 2022-08-12 00:00:00 2022-08-12 00:00:00 Outpatient GC_SWHATBIC _[facility]_S PRIV PRIV [id number] [facility] 2022-08-11 00:00:00 2022-08-11 00:00:00 Outpatient GC_SWHATBIC _[facility]one_S PRIV PRIV [id number] [facility] 2022-07-04 11:10:00 2022-07-04 16:53:00 Emergency EM Lynda-Rajesh Srinivasan [facility] SIA [id number] [facility] 2022 12:30:00 2022 12:30:00 Outpatient Abi Peñaloza [facility] [id number] [facility] 2022-02-27 12:24:00 2022-02-27 12:24:00 Outpatient Abi Peñaloza [facility] [id number] [facility] 2022-02-12 16:00:00 2022-02-12 16:00:00 Outpatient R DOUG BLANCAS [facility] [id number] [facility] 2022-02-12 00:00:00 2022-02-12 00:00:00 Telephone Yonny Doug [facility] 1.2.840.114 350.1.13.10 4.2.7.2.686 [id number] 134 [id number] [facility] 2022-02-10 00:00:00 2022-02-10 00:00:00 [facility] 1.2840.114 350.1.13.10 4.2.7.2.686 [id number] 134 [id number] [facility] 2022-02-09 13:30:00 2022-02-09 13:50:52 Outpatient R TIMO CORONA CHERYAL [facility] [id number] [facility] 2022-02-09 13:30:00 2022-02-09 13:50:52 Outpatient R TIMO CORONA CHERYAL [facility] [id number] [facility] 2022-02-09 13:30:00 2022-02-09 13:50:52 Routine Visit Timo Corona [facility] 1.2.840.114 350.1.13.10 4.2.7.2.686 [id number] 134 [id number] [facility] 2022-02-09 00:00:00 2022-02-09 00:00:00 Telephone Doug Blancas [facility] 1.2.114 350.1.13.10 4.2.7.2.686 [id number] [facility] 2022-02-05 14:30:00 2022-02-05 15:29:27 Outpatient R DOUG BLANCAS [facility] [id number] [facility] 2022-02-05 14:30:00 2022-02-05 15:29:27 Initial Visit Doug Blancas [facility] 1.2.114 350.1.13.10 4.2.7.2.686 [id number] 134 [id number] [facility] 2022-02-05 00:00:00 2022-02-05 00:00:00 Letter (Out) Doug Blancas [facility] 1.2.114 350.1.13.10 4.2.7.2.686 [id number] 134 [id number] [facility] 2022-02-04 00:00:00 2022-02-04 00:00:00 Telephone Yonny Doug [facility] 1..114 350.1.13.10 4.2.7.2.686 [id number] 134 [id number] [facility] 2022-01-22 00:00:00 2022-01-22 00:00:00 Orders Only Doctor Unassigned, [place] [facility] 1.2.114 350.1.13.10 4.2.7.2.686 [id number] [facility] 2021-10-24 11:30:00 2021-10-24 12:15:20 Office Visit Timo Corona [facility] 1.2.114 350.1.13.10 4.2.7.2.686 [id number] 134 [id number] [facility] 2021-10-24 11:30:00 2021-10-24 12:15:20 Outpatient R TIMO CORONA CHERYAL [facility] [id number] [facility] 2021-10-24 11:30:00 2021-10-24 11:30:00 Outpatient R TIMO CORONA CHERYAL [facility] [id number] [facility] 2021-10-24 00:00:00 2021-10-24 00:00:00 Orders Only Doctor Unassigned, [place] [facility] 1..840.114 350.1.13.10 4.2.7.2.686 [id number] [facility] 2019-07-15 01:27:00 2019-07-15 01:27:00 Emergency UCBAMICHAEL AFSHIN QER [id number] [facility] 2019-06-12 15:21:00 2019-06-12 18:15:00 Departed Emergency Room [facility] [id number] [address] [place] [address] 2012-10-10 11:00:00 2012-10-10 12:25:04 Outpatient GUS KULKARNI [facility] [id number] [facility] Results Test Description Test Time Test Comments Results Result Co mments [facility] SARS-COV-2 ANTIGEN (BINAX NOW)2024-06-08 15:39:00* Test Item Value Reference Range Interpretation Comme nts POCT SARS-COV-2 ANTIGEN (test code = 06072-5) Not Detected Not Detected, See Comment On board controls acceptable with C Line (test code = 3574) Yes Lab Interpretation (test code = 25634-1) Normal [facility] MOLECULAR [id number] 15:34:15* Test Item Value Reference Range Interpretation Comme nts POCT Molecular Strep (test c ode = 53584-4) Negative Negative Lab Interpretation (test cod e = 02287-5) [facility] [id number] 22:36:27PROCEDURE: CT CHEST WITH CONTRAST- CHEST PE PROTOCOL CLINICAL INDICATION: 29-year-old female. Chestpain. Pulmonary embolism(PE) suspected, positive D-dimer. Comparison: ?None TECHNIQUE: Volumetric helical CT angiogram was performed of the chest (lungapices to bases) with IV contrast. Images were reconstructed at 1.25 mmslice thickness. Corresponding axial, sagittal and coronal MIP images wereperformed. Axial MIPs and coronal and sagittal MPR images were generatedand reviewed. FINDINGS: HEART AND GREAT VESSELS: The opacification of the pulmonary vasculature isappropriate. No filling defects are seen through the level of the segmentalpulmonary arteries.The pulmonary trunk is normal in caliber. The thoracic aorta is normal in caliber with no significant atheroscleroticcalcifications. There are no significant calcifications of the coronary vessels. The heart is normal in size. No pericardial abnormalities are identified.The RV to LV is normal. MEDIASTINUM AND LOWER NECK: No central airway lesions are detected. Theesophagus is within normal limits. The included thyroid gland appearsnormal. LYMPH NODES: Scattered small lymph nodes in both sides of the mediastinumand hilar regions. No evidence of intrathoracic lymphadenopathy. LUNGS AND PLEURA: The lungs are well-expanded and clear. No focal opacitiesare identified. No suspicious nodules. No pleural abnormality detected. VISUALIZED UPPER ABDOMEN: Status post cholecystectomy. Postsurgical changesof gastric bypass. OSSEOUS STRUCTURES AND SOFT TISSUES: No focal osseous lesions are detected.The soft tissues appear normal.[id number] 20:38:43* Test Item Value Reference Range Interpretation Comments D-DIMER (test code = 5671489108) 0.82 See_Comment H [Automated message] The system which generated this result transmitted reference range: <0.50 ?g/mL (FEU). The reference range was not used to interpret this result as normal/abnormal. TIM (test code = TIM) This test may be used in conjunction with a clinical pretest probability (PTP) assessment model to exclude venous thromboembolism (VTE) in patients suspected of deep venous thrombosis (DVT) and pulmonary embolism (PE) A D-Dimer value less than 0.50 ?g/ml (FEU) has a negative predicative value of 96 to 100% (95% CI)and 97 to 100% (95% CI) as an aid in the diagnosis of deep vein thrombosis (DVT) and pulmonary embolism when there is low or moderate pretest probability of PE or DVT. D-Dimer values are expressed in initial fibrinogen equivalent units (FEU)" The assay results should be used with other information, including the clinical context, in forming a diagnosis. Lab Interpretation (test code = 87585-1) Abnormal [facility] 1 [id number] 16:47:09HISTORY: Chest pain. TECHNIQUE: Portable AP view of the chest is obtained. Comparison made with04/21/2024 study. FINDINGS: No acute pneumonia. No pneumothorax or pleural effusion orpulmonary congestion detected. Cardiac size is within normal limits. CONCLUSIONS: No signs of acute cardiopulmonary disease.[facility] 1 [id number] 23:09:08Exam: Chest (1 View), 04/21/2024 4:00 PM. Ordering Physician: TIANA CORRALES. History: dyspnea . Technique: One view of the chest. Comparison: Chest radiograph 03/27/2024. Findings: No focal consolidation. No pneumothorax or effusion. Normal size of thecardiac silhouette. No acute osseous finding.[facility] Hospital[facility] [id number] 22:37:35* Test Item Value Reference Range Interpretation Comme nts TROPONIN I (test code = 4035059124) 0.002 ng/mL <=0.034 TIM (test code = TIM) Reference (Normal) Range (defined by the 99th percentile reference limit): <= 0.034 ng/mL Note: Cardiac troponin begins to rise 3-4 hours after the onset of ischemia. Repeat in 4-6 hours if the sample was drawn within 3-4 hours of the onset of the symptom and found normal. Diagnosis of myocardial injury is made with acute changes in cTn concentrations with at least one serial sample above the 99th percentile upper reference limit (URL), taken together with the patient's clinical presentation. Biotin has been reported to cause a negative bias, interpret results relative to patient's use of biotin. Lab Interpretation (test code = 35045-3) Normal [facility]-[id number] 22:18:32* Test Item Value Reference Range Interpretation Comments D-DIMER (test code = 7119464345) 0.44 See_Comment [Automated message] The system which generated this result transmitted reference range: <0.50 ?g/mL (FEU). The reference range was not used to interpret this result as normal/abnormal. TIM (test code = TIM) This test may be used in conjunction with a clinical pretest probability (PTP) assessment model to exclude venous thromboembolism (VTE) in patients suspected of deep venous thrombosis (DVT) and pulmonary embolism (PE) A D-Dimer value less than 0.50 ?g/ml (FEU) has a negative predicative value of 96 to 100% (95% CI)and 97 to 100% (95% CI) as an aid in the diagnosis of deep vein thrombosis (DVT) and pulmonary embolism when there is low or moderate pretest probability of PE or DVT. D-Dimer values are expressed in initial fibrinogen equivalent units (FEU)" The assay results should be used with other information, including the clinical context, in forming a diagnosis. Lab Interpretation (test code = 88803-5) Normal [facility]E)2024-04-14 16:36:12* Test Item Value Reference Range Interpretation Comme nts Height (test code = 5416711838) 62 in Weight (test code = 2261942608) 184 lbs Systolic BP (test code = 3101558486) 111 mmHg Diastolic BP (test code = 6115178620) 75 mmHg Heart Rate (test code = 5915987966) 90 bpm BSA (test code = 0206652756) 1.84 m2 Ao root diam (test code = 3516698343) 2.38 cm Aortic root (test code = 2212687938) 2.38 cm Ao root annulus (test code = 1237706837) 2.38 cm LA size (test code = 8467389079) 3.0 cm ACS (test code = 1990984346) 2.04 cm PV PEAK VELOCITY (test code = 6013307439) 100.1 cm/s PV peak gradient (test code = 2041686738) 4.0 mmHg LVIDD (test code = 4852383452) 4.50 cm Left Ventricular End Diastolic Volume by Teichholz Method (test code = 6874844) 92.7 mL EF(Teich) (test code = 3855565550) 64.30 % FS (test code = 0365883210) 35 % EF - 2D (test code = 58147323) 64.30 % MV valve area p 1/2 method (test code = 7176866900) 3.70 cm2 MV dec slope (test code = 2905904176) 435.70 cm/s2 MV P1/2t max yaya (test code = 5098334495) 88.00 cm/s MV Peak A Yaya (test code = 0586771743) 45.1 cm/s LVOT peak yaya (test code = 3244408998) 90.1 cm/s LVOT mn grad (test code = 4928763501) 1.3 mmHg AV LVOT peak gradient (test code = 9797244136) 3.2 mmHg LVOT peak VTI (test code = 5609702336) 17.3 cm LV V1 mean (test code = 6663927286) 51.10 cm/s Aortic valve mean velocity (test code = 7417061986) 63.3 cm/s Ao peak yaya (test code = 9916663335) 105.5 cm/s Ao VTI (test code = 6123151228) 21.4 cm Ao max PG (test code = 8757506996) 4.50 mm[Hg] AV peak gradient (test code = 4838791034) 4.5 mmHg AV mean gradient (test code = 6300530217) 1.93 mmHg A4C EF (test code = 3919067640) 58.30 % EF(sp4-el) (test code = 3597071129) 60.30 % SV(MOD-sp4) (test code = 1025501722) 42.40 mL SV(sp4-el) (test code = 4177296328) 46.40 mL LVOT stroke volume (test code = 6873494089) 57.70 cm3 LVIDS (test code = 3149285215) 2.90 cm Left Ventricular End Systolic Volume by Teichholz Method (test code = 5942072) 33.1 mL LVOT diameter (test code = 7608787539) 2.06 cm LVOT area (test code = 3940383351) 3.30 cm2 AV area by cont VTI (test code = 0889126975) 2.7 cm2 AV area peak yaya (test code = 9523145646) 2.9 cm2 AV valve area (test code = 6162144604) 2.70 cm2 IVS (test code = 3364933720) 0.85 cm LVPWD (test code = 8607553652) 0.74 cm MV Peak E Yaya (test code = 3323078060) 87.0 cm/s E/A ratio (test code = 9577226533) 1.93 ratio LA Volume Index (BP) (test code = 3074153754) 13.1 mL/m2 LA volume (BP) (test code = 6698593316) 24.2 mL LAV(MOD-sp2) (test code = 8827371617) 26.00 mL LAV(MOD-sp4) (test code = 4619352067) 21.40 mL RVOT diameter (test code = 9103953348) 1.85 cm RVOT Proximal Diameter (test code = 9093471227) 2.33 cm MR max PG (test code = 8753833794) 68.40 mm[Hg] MR max yaya (test code = 5717826532) 406.30 cm/s MV E-F slope (test code = 1545525451) 45.80 cm/s TR Peak Yaya (test code = 3295376187) 165.4 cm/s Triscuspid Valve Regurgitation Peak Gradient (test code = 7459683550) 10.9 mmHg Mr max yaya (test code = 7619946112) 406.3 m/s PW (test code = 8994971514) 0.74 cm 0.6-1.1 Interventricular Septum Diastolic Thickness by 2D (test code = 1331110) 0.85 cm Radiology Study observation (narrative) (test code = 85728-5) TIM (test code = TIM) ?Left?Ventricle: Left ventricle size is normal. Normal wall thickness. Normal wall motion. Normal systolic function with a visually estimated EF of 55 - 60%. Normal diastolic function. ?Right?Ventricle: Right ventricle size is normal. Normal systolic function. ?Tricuspid?Valve: Insufficient tricuspid regurgitation jet to estimate RVSP . ?RA pressure is 0-5 mmHg. Left VentricleLeft ventricle size is normal. Normal wall thickness. Normal wall motion. Normal systolic function with a visually estimated EF of 55 - 60%. Normal diastolic function.Right VentricleRight ventricle size is normal. Normal systolic function.Left AtriumLeft atrium size is normal.Right AtriumRight atrium size is normal.IVC/SVCIVC diameter is less than or equal to 21 mm and decreases greater than 50% during inspiration; therefore the estimated right atrial pressure is normal (~0-5 mmHg).Mitral ValveMitral valve structure is normal. Trace transvalvular regurgitation.Tricusp id ValveTricuspid valve structure is normal. Trace transvalvular regurgitation. Insufficient tricuspid regurgitation jet to estimate RVSP . RA pressure is 0-5 mmHg.Aortic ValveAortic valve structure is normal.Pulmonic ValveNot well visualized.Ascending AortaNormal sized aorta.PericardiumThe pericardium is normal. No pericardial effusion.Study DetailsStudy quality was adequate. A complete echocardiogram was performed using 2D, color flow Doppler and spectral Doppler. [facility] SARS-COV-2 ANTIGEN (BINAX NOW)2024-03-25 21:36:00* Test Item Value Reference Range Interpretation Comme nts POCT SARS-COV-2 ANTIGEN (chavez t code = 89840-6) Positive Not Detected, See Comment A On board controls acceptable with C Line (test code = 3574) Yes Lab Interpretation (test cod e = 62749-1) Abnormal [facility] MOLECULAR [id number] 21:33:51* Test Item Value Reference Range Interpretation Comme nts POCT Molecular Strep (test c ode = 06348-8) Negative Negative Lab Interpretation (test cod e = 54442-3) Normal [facility] [id number] 15:32:00* Test Item Value Reference Range Interpretation Comme nts POCT PREG (test code = 1605) Negative On board controls acceptable with C Line (test code = 3574) Yes POCT PREG LOT # (test code = 3575) POCT PREG TEST DATE ( test code = 3576) [facility] [id number] 14:44:00* Test Item Value Reference Range Interpretation Comme nts POCT PREG (test code = 1605) Negative On board controls acceptable with C Line (test code = 3574) Yes POCT PREG LOT # (test code = 3575) POCT PREG TEST DATE ( test code = 3576) [facility] SARS-COV-2 ANTIGEN (BINAX NOW)2024-01-29 15:19:00* Test Item Value Reference Range Interpretation Comme nts POCT SARS-COV-2 ANTIGEN (test code = 78935-4) Not Detected Not Detected, See Comment On board controls acceptable with C Line (test code = 3574) Yes TIM (test code = TIM) accurate developme nt and interpretation of all internal controls Lab Interpretation (test code = 54966-8) Normal [facility] SARS-COV-2 ANTIGEN (BINAX NOW)2024-01-14 17:24:00* Test Item Value Reference Range Interpretation Comme nts POCT SARS-COV-2 ANTIGEN (test code = 78996-4) Not Detected Not Detected, See Comment On board controls acceptable with C Line (test code = 3574) Yes TIM (test code = TIM) accurate developme nt and interpretation of all internal controls Lab Interpretation (test code = 01487-5) [facility] [id number] 13:23:02Ordered by an unspecified provider.[facility] POCT [id number] 18:02:00* Test Item Value Reference Range Interpretation Comme nts POCT PREG (test code = 1605) Negative On board controls acceptable with C Line (test code = 3574) Yes POCT PREG LOT # (test code = 3575) 814348 POCT PREG TEST DATE ( test code = 3576) 10/29/24 Lab Interpretation (test cod e = 15291-0) Normal [facility] [id number] 18:02:00* Test Item Value Reference Range Interpretation Comme nts POCT PREG (test code = 1605) Negative On board controls acceptable with C Line (test code = 3574) Yes POCT PREG LOT # (test code = 3575) [id number] POCT PREG TEST DATE ( test code = 3576) 10/29/24 Lab Interpretation (test cod e = 36400-8) Normal [facility] Urinalysis W Specific Xqbuwqw4241-72-50 18:36:00* Test Item Value Reference Range Interpretation [...] U APPEAR (test code = 3267) Clear [facility] Urinalysis W Specific Ahacujx7667-41-86 18:36:00* Test Item Value Reference Range Interpretation [...] U APPEAR (test code = 3267) Clear [facility] Urinalysis W Specific Zgkwqva8298-78-23 18:36:00* Test Item Value Reference Range Interpretation [...] U APPEAR (test code = 3267) Clear [facility]2023-10-16 22:30:46* Test Item Value Reference Range Interpretation Comme nts POCT GLU (test code = 9166693541) 137 mg/dL 70-110 H Lab Interpretation (test cod e = 49278-4) Abnormal [facility] HospitalCOMP. METABOLIC PANEL (61235)2023-10-16 21:48:18* Test Item Value Reference Range Interpretation Comme nts NA (test code = 1481141832) 138 mmol/L 135-145 K (test code = 0800598572) 4.7 mmol/L 3.5-5.0 CL (test code = 7035168189) 105 mmol/L 98-108 CO2 TOTAL (test code = 9857597865) 23 mmol/L 23-31 AGAP (test code = 6873403309) 10 2-16 BUN (test code = 1727212209) 15 mg/dL 7-23 GLUCOSE (test code = 8719198367) 120 mg/dL 70-110 H CREATININE (test code = 2160-0) 0.58 mg/dL 0.50-1.04 TOTAL BILI (test code = 7156908575) 0.7 mg/dL 0.1-1.1 CALCIUM (test code = 8320523215) 9.4 mg/dL 8.6-10.6 T PROTEIN (test code = 5111921413) 9.1 g/dL 6.3-8.2 H ALBUMIN (test code = 4152344040) 4.6 g/dL 3.5-5.0 ALK PHOS (test code = 0551468287) 114 U/L 34-122 ALTv (test code = 1742-6) 94 U/L 5-35 H AST(SGOT) (test code = 7381053487) 67 U/L 13-40 H eGFR (test code = 49254-4) 128.2 mL/min/1.73m2 CKD-EPI eGFR (2020). Assuming creatinine has been stable day-to-day for at least three months, the eGFR indicates Category G1 (>= 90 mL/min/1.73 m2) Lab Interpretation (test code = 28594-3) Abnormal [facility] WITH [id number] 21:33:31* Test Item Value Reference Range Interpretation [...] g/dL 31.6-35.1 L RDW-SD (test code = 10656-2) 47.5 fL 39.0-49.9 RDW-CV (test code = 788-0) 16.5 % 12.0-15.5 H PLT (test code = 777-3) 330 166-358 MPV (test code = 12083-1) 11.9 fL 9.5-12.9 NRBC/100 WBC (test code = 0412521408) 0.0 0.0-10.0 NRBC x10^3 (test code = 4271825535) See_Comment [Automated messa ge] The system which generated this result transmitted reference range: 10*3/?L. The reference range was not used to interpret this result as normal/abnormal. GRAN MAT (NEUT) % (test code = 770-8) 50.1 % IMM GRAN % (test code = 7776668397) 0.40 % LYMPH % (test code = 736-9) 41.7 % MONO % (test code = 5905-5) 6.1 % EOS % (test code = 713-8) 1.1 % BASO % (test code = 706-2) 0.6 % GRAN MAT x10^3(ANC) (test code = 9893642912) 3.61 10*3/uL 1.88-7.09 IMM GRAN x10^3 (test code = 8776340547) 0.03 10*3/uL 0.00-0.06 LYMPH x10^3 (test code = 731-0) 3.00 10*3/uL 1.32-3.29 MONO x10^3 (test code = 742-7) 0.44 10*3/uL 0.33-0.92 EOS x10^3 (test code = 711-2) 0.08 10*3/uL 0.03-0.39 BASO x10^3 (test code = 704-7) 0.04 10*3/uL 0.01-0.07 Lab Interpretation (test code = 55111-5) [facility]normal [facility] 1 [id number] 21:18:26EXAM: XR CHEST 1 10/16/2023 4:03 PM HISTORY: 28 years-old Female with weakness . TECHNIQUE: Portable AP view of the chest. COMPARISON: None. FINDINGS: Lines and tubes: None. Cardiomediastinal: The cardiomediastinal silhouette is unremarkable. Lungs and pleura: The lungs are clear. No focal consolidation,pneumothorax, or pleural effusion is seen. Included osseous structures show no acute abnormality. [facility]PO[facility] [id number] 21:01:00* Test Item Value Reference Range Interpretation Comme nts POCT PREG (test code = 1605) Negative On board controls acceptable with C Line (test code = 3574) Yes POCT PREG LOT # (test code = 3575) 411386 POCT PREG TEST DATE ( test code = 3576) 08/04/2024 Lab Interpretation (test cod e = 98955-5) Normal [facility] GLUCOSE (AUTOMATED)2023-10-16 20:32:36* Test Item Value Reference Range Interpretation Comme nts POCT GLU (test code = 1633845739) 77 mg/dL 70-110 Lab Interpretation (test cod e = 87576-3) Normal [facility] SARS-COV-2 ANTIGEN (BINAX NOW)2023-08-14 00:36:00* Test Item Value Reference Range Interpretation Comme nts POCT SARS-COV-2 ANTIGEN (test code = 23693-8) Positive Not Detected A On board controls acceptable with C Line (test code = 3574) Yes TIM (test code = TIM) accurate developme nt and interpretation of all internal controls Lab Interpretation (test code = 34999-8) Abnormal [facility] SARS-COV-2 ANTIGEN (BINAX NOW)2023-06-25 16:17:00* Test Item Value Reference Range Interpretation Comme nts POCT SARS-COV-2 ANTIGEN (test code = 05932-2) Not Detected Not Detected On board controls acceptable with C Line (test code = 3574) Yes TIM (test code = TIM) accurate developme nt and interpretation of all internal controls [facility] Molecular [id number] 16:14:45* Test Item Value Reference Range Interpretation Comme nts POCT Molecular FluA (test co de = 66952-6) Negative Negative POCT Molecular FluB (test co de = 37270-0) Negative Negative Lab Interpretation (test cod e = 61485-3) Normal [facility] MOLECULAR [id number] 16:08:16* Test Item Value Reference Range Interpretation Comme nts POCT Molecular Strep (test c ode = 10792-8) Negative Negative Lab Interpretation (test cod e = 78342-8) Normal [facility] [id number] 20:56:00* Test Item Value Reference Range Interpretation Comme nts POCT PREG (test code = 1605) Negative On board controls acceptable with C Line (test code = 3574) Yes POCT PREG LOT # (test code = 3575) POCT PREG TEST DATE ( test code = 3576) [facility] URINALYSIS W/O SPECIFIC [id number] 15:24:00* Test Item Value Reference Range Interpretation [...] = 3257) Trace Negative - Negati ve [facility] URINAL[facility] W/O SPECIFIC [id number] 15:24:00* Test Item Value Reference Range Interpretation [...] = 3257) Trace Negative - Negati ve [facility] with Adszmcpitlsz3018-01-31 12:11:12* Test Item Value Reference Range Interpretation [...] 32.5 g/dL 31.6-35.1 RDW-SD (test code = 34927-5) 37.9 fL 39.0-49.9 L RDW-CV (test code = 788-0) 12.5 % 12.0-15.5 PLT (test code = 777-3) 212 See_Comment [Automated [employer]] The system which generated this result transmitted reference range: 166 - 358 10*3/?L. The reference range was not used to interpret this result as normal/abnormal. MPV (test code = 39240-0) 13.7 fL 9.5-12.9 H IPF % (test code = 5760869728) 12.4 % 1.3-7.7 H Platelet count measured by fluorescence method. NRBC/100 WBC (test code = 5334687315) 0.0 See_Comment [Automated [employer]] The system which generated this result transmitted reference range: 0.0 - 10.0 /100 WBCs. The reference range was not used to interpret this result as normal/abnormal. NRBC x10^3 (test code = 9448431367) See_Comment [Automated Klev[employer]] The system which generated this result transmitted reference range: 10*3/?L. The reference range was not used to interpret this result as normal/abnormal. GRAN MAT (NEUT) % (test code = 770-8) 88.8 % IMM GRAN % (test code = 6651525968) 0.50 % LYMPH % (test code = 736-9) 5.2 % MONO % (test code = 5905-5) 5.4 % EOS % (test code = 713-8) 0.0 % BASO % (test code = 706-2) 0.1 % GRAN MAT x10^3(ANC) (test code = 8703097160) 13.10 10*3/uL 1.88-7.09 H IMM GRAN x10^3 (test code = 0369377540) 0.08 10*3/uL 0.00-0.06 H LYMPH x10^3 (test code = 731-0) 0.77 10*3/uL 1.32-3.29 L MONO x10^3 (test code = 742-7) 0.79 10*3/uL 0.33-0.92 EOS x10^3 (test code = 711-2) 0.03-0.39 L BASO x10^3 (test code = 704-7) 0.01-0.07 Lab Interpretation (test code = 54016-5) Abnormal [facility] HospitalFETAL MATERNAL HEMO [id number] 10:52:00 * Test Item Value Reference Range Interpretation Comme nts SCREEN (test code = 846) Negative RHIG REQUIRED? (test code = 1747) 1 Syringe Patient is a can didate for RhIg- Patient is Rh Negative and baby is Rh Positive. [facility] HospitalRHO (D) IMMUNE [id number] 03:51:49* Test Item Value Reference Range Interpretation Comme nts RHIG CANDIDATE? (test code = 5188) Yes- see comment A Patient is a candidate for RhIg- Patient is Rh Negative and baby is Rh Positive.Performe d at [facility] Laboratory Services - [facility] Blood [address] [place] [id number] Free: [phone] No. [id number] Lab Interpretation (test code = 24863-7) Abnormal [facility] HospitalHIV 1/2 AG-AB WITH [id number] 01:30:48* Test Item Value Reference Range Interpretation Comme nts HIV Semi-quantitative (test code = 45681-4) 0.18 Negative TIM (test code = TIM) Non-reactive for HIV-1 antigen and HIV-1/HIV-2 antibodies. ?No laboratory evidence of HIV infection. ?Repeat in 2-4 weeks if acute HIV infection is suspected. [facility] HospitalADC OR MAGALY ONLY - [id number] 01:11:37* Test Item Value Reference Range Interpretation Comme nts RPR (Qualitative) (test code = 55366-9) Nonreactive Nonreactive Lab Interpretation (test cod e = 00948-5) Normal [facility] HospitalHepatitis B Surface Ciduzxv2519-51-96 23:04:27 * Test Item Value Reference Range Interpretation Comme nts HBsAg Semi-Quantitative (chavez t code = 5195-3) 0.04 Negative [facility] with Ishotokzxicb7463-43-75 19:26:49* Test Item Value Reference Range Interpretation [...] 32.2 g/dL 31.6-35.1 RDW-SD (test code = 44101-9) 37.8 fL 39.0-49.9 L RDW-CV (test code = 788-0) 12.4 % 12.0-15.5 PLT (test code = 777-3) 218 See_Comment [Automated messa ge] The system which generated this result transmitted reference range: 166 - 358 10*3/?L. The reference range was not used to interpret this result as normal/abnormal. MPV (test code = 10583-5) 13.0 fL 9.5-12.9 H NRBC/100 WBC (test code = 3308667541) 0.0 See_Comment [Automated me ssage] The system which generated this result transmitted reference range: 0.0 - 10.0 /100 WBCs. The reference range was not used to interpret this result as normal/abnormal. NRBC x10^3 (test code = 8471056852) See_Comment [Automated messa ge] The system which generated this result transmitted reference range: 10*3/?L. The reference range was not used to interpret this result as normal/abnormal. GRAN MAT (NEUT) % (test code = 770-8) 77.2 % IMM GRAN % (test code = 9324435000) 0.30 % LYMPH % (test code = 736-9) 15.6 % MONO % (test code = 5905-5) 6.5 % EOS % (test code = 713-8) 0.2 % BASO % (test code = 706-2) 0.2 % GRAN MAT x10^3(ANC) (test code = 6899745765) 6.76 10*3/uL 1.88-7.09 IMM GRAN x10^3 (test code = 6701665508) 0.03 10*3/uL 0.00-0.06 LYMPH x10^3 (test code = 731-0) 1.37 10*3/uL 1.32-3.29 MONO x10^3 (test code = 742-7) 0.57 10*3/uL 0.33-0.92 EOS x10^3 (test code = 711-2) 0.03-0.39 L BASO x10^3 (test code = 704-7) 0.01-0.07 Lab Interpretation (test code = 32643-9) Abnormal [facility] HospitalType and Screen - ONCE [id number] 19:22:00 * Test Item Value Reference Range Interpretation Comme nts ABO & RH (test code = 20) A Negative IAT (test code = 1185) Positive [facility]POCT URINALYSIS W/O SPECIFIC [id number] 18:21:00* Test Item Value Reference Range Interpretation [...] internal controls Lab Interpretation (test code = 44842-7) Normal [facility] GLUCOSE (AUTOMATED)2022-11-25 18:00:27* Test Item Value Reference Range Interpretation Comme nts POCT GLU (test code = 4058885287) 80 mg/dL 70-110 Lab Interpretation (test cod e = 33601-3) Normal [facility] URINALYSIS W/O SPECIFIC [id number] 18:17:00* Test Item Value Reference Range Interpretation [...] = 3257) n/a Negative - Negati ve [facility] URINALYSIS W/O SPECIFIC [id number] 05:00:00* Test Item Value Reference Range Interpretation [...] = 3257) NA Negative - Negati ve [facility] URINALYSIS W/O SPECIFIC [id number] 18:47:00* Test Item Value Reference Range Interpretation [...] = 3257) n/a Negative - Negati ve [facility]PO[facility] W/O SPECIFIC MNTPUPX7928-12-55 16:02:00* Test Item Value Reference Range Interpretation [...] = 3257) n/a Negative - Negati ve [facility] HospitalUric Acid Hvgqs0499-77-13 03:12:06* Test Item Value Reference Range Interpretation Comme nts URIC ACID (test code = 4219097805) 2.6 mg/dL 2.9-6.0 L Lab Interpretation (test cod e = 91186-8) Abnormal [facility] HospitalAlanine Amino Transferase (SGPT)2022-09-26 03:12:06* Test Item Value Reference Range Interpretation Comme nts ALTv (test code = 1742-6) 11 U/L 5-35 Lab Interpretation (test cod e = 30411-7) Normal [facility] HospitalLactate Yjmohaliiakqx4586-52-75 03:12:06* Test Item Value Reference Range Interpretation Comme nts LDH (test code = 0632190432) 123 U/L 120-246 Lab Interpretation (test cod e = 93520-3) Normal [facility] HospitalSGOT (Asparate Amino Transfer)2022-09-26 03:11:46* Test Item Value Reference Range Interpretation Comme nts AST(SGOT) (test code = 8022284943) 19 U/L 13-40 Lab Interpretation (test cod e = 16577-0) Normal [facility] Fegdmeooxj8855-77-79 03:11:45* Test Item Value Reference Range Interpretation Comme nts CREATININE (test code = 6625379778) 0.35 mg/dL 0.50-1.04 L eGFR (test code = 7835861003) 226.9 mL/min/1.73m2 TIM (test code = TIM) [...] imaging tests). Lab Interpretation (test code = 65673-8) Abnormal [facility] with Guzrqdgpiskz9599-98-38 03:09:28* Test Item Value Reference Range Interpretation Comme nts WBC (test code = 6690-2) 8.71 See_Comment [Automated Klev[employer]] The system which generated this result transmitted [...] 34.5 g/dL 31.6-35.1 RDW-SD (test code = 37109-4) 39.4 fL 39.0-49.9 RDW-CV (test code = 788-0) 12.5 % 12.0-15.5 PLT (test code = 777-3) 231 See_Comment [Automated messa ge] The system which generated this result transmitted reference range: 166 - 358 10*3/?L. The reference range was not used to interpret this result as normal/abnormal. MPV (test code = 38907-7) 11.8 fL 9.5-12.9 NRBC/100 WBC (test code = 8803970487) 0.0 See_Comment [Automated Pheedo ssage] The system which generated this result transmitted reference range: 0.0 - 10.0 /100 WBCs. The reference range was not used to interpret this result as normal/abnormal. NRBC x10^3 (test code = 1358557854) See_Comment [Automated messa ge] The system which generated this result transmitted reference range: 10*3/?L. The reference range was not used to interpret this result as normal/abnormal. GRAN MAT (NEUT) % (test code = 770-8) 56.2 % IMM GRAN % (test code = 4160530360) 0.20 % LYMPH % (test code = 736-9) 34.4 % MONO % (test code = 5905-5) 8.0 % EOS % (test code = 713-8) 0.9 % BASO % (test code = 706-2) 0.3 % GRAN MAT x10^3(ANC) (test code = 0638126918) 4.88 10*3/uL 1.88-7.09 IMM GRAN x10^3 (test code = 0063817378) 0.00-0.06 LYMPH x10^3 (test code = 731-0) 3.00 10*3/uL 1.32-3.29 MONO x10^3 (test code = 742-7) 0.70 10*3/uL 0.33-0.92 EOS x10^3 (test code = 711-2) 0.08 10*3/uL 0.03-0.39 BASO x10^3 (test code = 704-7) 0.03 10*3/uL 0.01-0.07 Lab Interpretation (test code = 02008-4) Abnormal [facility] HospitalTHYROID STIMULATING [id number] 14:22:00 * Test Item Value Reference Range Interpretation Comme nts THYROID STIMULATING HORMONE (test code = TSH) 1.88 0.36-3.74 N Test Performed i n MicroInternational Units/mL HCG LZQQQ4468-39-92 13:55:00* Test Item Value Reference Range Interpretation Comme nts HCG SERUM (test code = HCG) 87932 INTERPRETATION:V ALUES BETWEEN 15-20 milliInternational units/mL NEED TO BERETESTED WITHIN 48 HOURS. All units for these ranges are in milliInternationalunits/mL0-1 WK AFTER CONCEPTION 0-50 1-2 WKS AFTER CONCEPTION 40-3002-3 WKS AFTER CONCEPTION 100-1,0003-4 WKS AFTER CONCEPTION 500-6,0001-2 MONTHS AFTER CONCEPTION 5,000-200,0002-3 MONTHS AFTER CONCEPTION 10,000-100,0002ND TRIMESTER 3,000-50,0003RD TRIMESTER 1,000-50,000 SPECIMENS WITH AN HCG LEVEL FROM 0-6 milliInternationalunits/mL SHOULD BE CONSIDERED NEGATIVE COMPREHENSIVE METABOLIC [id number] 13:24:00* Test Item Value Reference Range Interpretation [...] calculation forGFR is based on the CKD-EPI (202) calculation. This formulais race indifferent and is [...] 46-116 N UA RFLX MICR CULT IF OEPDDBLLX8211-40-63 13:14:00* Test Item Value Reference Range Interpretation [...] culture: Suprapubic PainSpecimen Description: CLEAN CATCHCBC W/AUTO SCZY2456-00-49 13:02:00* Test Item Value Reference Range Interpretation [...] PLTMR) NORMAL NORMAL - US PREG UT DMPCGQUWJPJD5819-57-28 00:00:00 [facility] : 1995 Sex: F Patient Name: DEYSI ALVAREZ Unit No: [id number] EXAMS: CPT CODE: [id number] US PREG UT TRANSVAGINAL 92409 PROCEDURE INFORMATION: Exam: US First Trimester (Transabdominal), [...] EGA (MSD) is 13 w 6 d [place]-Rump length: 77.7 mm. EGA (CRL) is 13 [...] space: No intraperitoneal free fluid. IMPRESSION: [facility] [place] NAME: DEYSI ALVAREZ Radiology Department PHYS: Rajesh Olea [address] : 1995 AGE: 27 SEX: F [place], [place] [address] LOC: DEA PHONE #: [phone] EXAM DATE: 07/04/2022 STATUS: REG ER FAX #: [phone] RAD NO: Page 1 Signed Report (CONTINUED) Patient Name: DEYSI ALVAREZ Unit No: [id number] EXAMS: CPT CODE: [id number] US PREG UT TRANSVAGINAL 47857 (Continued) 1. Single live intrauterine gestation corresponding [...] III, MD Technologist: Jane Bundy RDMS Probe: [id number] Trnscrbd D/ (1551) GCD.CPS Orig Print D/T: S: 07/04/2022 (1552) [facility] NAME: DEYSI ALVAREZ RadiologyDepartment PHYS: Rajesh Olea [address] : 1995 AGE: 27 SEX: F [place] [address] LOC: DEA PHONE #: [phone] EXAM DATE: 07/04/2022 STATUS: REG ER FAX #: [phone] RAD NO: Page 2 Signed Report Patient Name: DEYSI ALVAREZ Unit No: [id number] EXAMS: CPT CODE: [id number] US PREG UT TRANSVAGINAL 62570 (Continued) [facility] NAME: DEYSI ALVAREZIANNE Radiology Department PHYS: Rajesh Olea [address] : 1995 AGE: 27 SEX: F [place] [address] LOC: F.ERS PHONE #: [phone] EXAM DATE: 07/04/2022 STATUS: MARYAN WONG FAX #: [phone] RAD NO: Page 3 SignedReport- DUP AB/PEL/SC/PRR0186-88-26 00:00:00 [facility] : 1995 Sex: F Patient Name: DEYSI ALVAREZ Unit No: [id number] EXAMS: CPT CODE: [id number] DUP AB /PEL/SC/LTD 72043 PROCEDURE INFORMATION: Exam: US First Trimester (Transabdominal), [...] EGA (MSD) is 13 w 6 d [place] magdaleno th: 77.7 mm. EGA (CRL) is [...] space: No intraperitoneal free fluid. IMPRESSION: [facility] [facility] NAME: DEYSI ALVAREZ CATY Radiology Department PHYS: [facility]A [facility] [address] : 1995 AGE: 27 SEX: F [place], [place] [address] LOC: DEA PHONE #: [phone] EXAM DATE: 07/04/2022 STATUS: REG ER FAX #: [phone] RAD NO: Page 1 Signed Report (CONTINUED) Patient Name: DEYSI ALVAREZ Unit No: [id number] EXAMS: CPT CODE: [id number] DUP AB/PEL/SC/LTD 98803 (Continued) 1. Single live intrauterine gestation corresponding [...] Orig Print D/T: S: 07/04/2022 (1551) The [facility] NAME: DEYSI ALVAREZ Radiology Department PHYS: Rajesh Watson [address] : 1995 AGE: 27 SEX: F [place] [address] LOC: BonnieERS PHONE #: [phone] EXAM DATE: 07/04/2022 STATUS: REG ER FAX #: [phone] RAD NO: Page 2 Signed Report Patient Name: DEYSI ALVAREZ Unit No: [id number] EXAMS: CPT CODE: [id number] DUP AB/PEL/SC/LTD 35856 (Continued) [facility] NAME: DEYSI ALVAREZNE Radiology Department PHYS: Rajesh Olea [address] : 1995 AGE: 27 SEX: F [place] [address] LOC: BonnieERS PHONE #: [phone] EXAM DATE: 07/04/2022 STATUS: REG ER FAX #: [phone] RAD NO: Page 3 Signed Report- US PREG EVAL 1ST [id number] 00:00:00 [facility] : 1995 Sex: F Patient Name: DEYSI ALVAREZ Unit No: [id number] EXAMS: CPT CODE: [id number] US PREG EVAL 1ST TRIMTR 34416 PROCEDURE INFORMATION: Exam: US First Trimester (Transabdominal), [...] EGA (MSD) is 13 w 6 d [place]-Rump length: 77.7 mm. EGA (CRL) is 13 [...] space: No intraperitoneal free fluid. IMPRESSION: The [facility] NAME: DEYSI ALVAREZ Radiology Department PHYS: Rajesh Olea [address] : 1995 AGE: 27 SEX: F [place], [place] [address] LOC: BonnieERS PHONE #: [phone] EXAM DATE: 07/04/2022 STATUS: REG ER FAX #: [phone] RAD NO: Page 1 Signed Report (CONTINUED) Patient Name: DEYSI ALVAREZ UnitNo: [id number] EXAMS: CPT CODE: [id number] US PREG EVAL 1ST TRIMTR 39878 (Continued) 1. Single liveintrauterine gestation corresponding to [...] GCD.CPS Orig Print D/T: S:07/04/2022 (1551) [facility] NAME: DEYSI ALVAREZ CATY Radiology DepartmentPHYS: THEA LeavittRajesh [address] : 1995 AGE: 27 SEX: F [place], [place] [address] LOC: DEA PHONE #: [phone] EXAM DATE: 07/04/2022 STATUS: REG ER FAX #: [phone] RAD NO: Page 2 Signed Report Patient Name: DEYSI ALVAREZ Unit No: [id number] EXAMS: CPT CODE: [id number] US PREG EVAL 1ST TRIMTR 42392 (Continued) [facility] [place] [facility] NAME: DEYSI ALVAREZ CATY Radiology Department PHYS: THEA CastroRajesh [address] : 1995 AGE: 27 SEX: F [place] [address] LOC: DEA PHONE #: [phone] EXAM DATE: 07/04/2022 STATUS: REG ER FAX #: [phone] RAD NO: Page 3 Signed ReportSURGICAL 2022-03-03 14:46:00* Test Item Value Reference Range Interpretation Comme nts SURGICAL (test code = SR) -----RUN DATE: 03/03/22 [facility] PAGE 1 RUN TIME: 1446 Specimen Inquiry RUN USER: INTERFACE -----PATIENT: DEYSI ALVAREZ LOC: REYNA U #: [id number] AGE/SX: 26/F ROOM: RE02/27/22REG DR: Abi Peñaloza III, MD : [birth year] BED: DIS: STATUS: REG REF TLOC: ----- SPEC #: [id number] RECD: 02/27/22 [facility] #: [id number] RONI: 02/27/22-[address] [facility] DR: Abi Peñaloza III, MD ENTERED: 02/27/22 SP TYPE: SURGICAL OTHR DR: ORDERED: ANATOMIC SPEC, SPEC TRACK, [id number] PROCEDURES: 14669 (02/27/22) TISSUES: A. PRODUCTS OF CONCEPTION - [...] 4 cassettes A1-A4.02/27/22 Technical component performed at [employer],[id number] , [place] [address] Unless gross only, the diagnosis is based [...] END OF REPORT POCT URINALYSIS W/O SPECIFIC [id number] 19:35:00* Test Item Value Reference Range Interpretation [...] = 3257) n/a Negative - Negati ve [facility]PO[facility] [id number] 19:34:00* Test Item Value Reference Range Interpretation Comme nts POCT PREG (test code = 1605) Positive On board controls acceptable with C Line (test code = 3574) Yes POCT PREG LOT # (test code = 8004) POCT PREG TEST DATE ( test code = 3576) [facility]-HCG QUAL (KIT)2019-07-15 04:00:00* Test Item Value Reference Range Interpretation Comme nts HCGQUAL (test code = HCGQUAL) NEGATIVE NEGATIVE URINE: NEGATIVE = < 20 mIU/ML; POSITIVE= >/= 20 mIU/ML SERUM: NEGATIVE = < 10 mIU/ML; POSITIVE= >/= 10 mIU/ML SOURCE (test code = SOURCE) URINE HCG INTERNAL POSITIVE CNTRL (test code = HCGIPC) PASS PASS HCG LOT # (test code = UHCGLOT) [id number] HCG EXPIRATION DATE (test code = UHCGEXP) 10-16 [id number] 03:58:00* Test Item Value Reference Range Interpretation [...] = BACTERIA) MODERATE NONE Urinalysis specimen collection wfipkn8125-73-07 16:35:00* Test Item Value Reference Range Interpretation Comme nts Urine Source (test code = 53417-8) URINE [facility] HospitalColor of Urine by Ddbv4189-98-42 16:35:00* Test Item Value Reference Range Interpretation Comme nts Urine Color (test code = 42592-2) Yellow Yel-Diane * [facility] HospitalUrine clarity lhvnabmxtnqtl1836-29-34 16:35:00* Test Item Value Reference Range Interpretation Comme nts Urine Appearance (test code = 30054-1) Clear Clear * [facility] pH measurement by automated test rkwvo8875-93-45 16:35:00* Test Item Value Reference Range Interpretation Comme nts Urine pH (test code = 83872-3) 5.0 5.0-8.0 [facility] HealthSpecific gravity of Urine by Automated test naddy9529-52-14 16:35:00* Test Item Value Reference Range Interpretation Comme nts Urine Specific [place] (test code = 51269-9) 1.029 1.005-1.030 [facility]Urine protein measurement by automated test strip (mass/volume) 2019-06-12 16:35:00* Test Item Value Reference Range Interpretation Comme nts Urine Protein (test code = 51276-0) 10 mg/dL Negative * [facility]Urine glucose measurement by automated test strip (mass/volume) 2019-06-12 16:35:00* Test Item Value Reference Range Interpretation Comme nts Urine Glucose (UA) (test cod e = 20409-0) Negative mg/dL Negative * [facility] HealthUrine ketones measurement by automated test strip (mass/volume) 2019-06-12 16:35:00* Test Item Value Reference Range Interpretation Comme nts Urine Ketones (test code = 56197-5) Trace mg/dL Negative * [facility] HealthUrine erythrocytes count by automated test strip (number/volume) 2019-06-12 16:35:00* Test Item Value Reference Range Interpretation Comme nts Urine Occult Blood (test cod e = 65625-4) Negative Negative * [facility] HealthUrine nitrite detection by automated test yxepn4754-21-76 16:35:00* Test Item Value Reference Range Interpretation Comme nts Urine Nitrite (test code = 18163-3) Negative Negative [facility]rine total bilirubin measurement by automated test strip (mass/volume)2019-06-12 16:35:00* Test Item Value Reference Range Interpretation Comme nts Urine Bilirubin (test code = 47297-5) Negative mg/dL Negative [facility] HealthUrine urobilinogen measurement by automated test strip (mass/volume)2019-06-12 16:35:00* Test Item Value Reference Range Interpretation Comme nts Urine Urobilinogen (test cod e = 37382-7) Negative mg/dL 0.0-1.0 [facility] HealthUrine leukocytes count by automated test strip (number/volume) 2019-06-12 16:35:00* Test Item Value Reference Range Interpretation Comme nts Urine Leukocyte Esterase (test code = 79348-7) Negative {Darcie}/uL Negative [facility] HealthMicroscopic examination of cxfff8158-80-92 16:35:00* Test Item Value Reference Range Interpretation Comme nts Microscopic Urinalysis (T) ( test code = 73058-9) ----- [facility] HealthUrine sediment erythrocyte count by microscopy (number/high power field)2019-06-12 16:35:00* Test Item Value Reference Range Interpretation Comme nts Urine RBC (test code = 44548-5) 0-2 /[HPF] 0-2 [facility] HealthUrine sediment leukocyte [...] Comme nts Urine Crystals (test code = 66237-8) None Seen /[HPF] None * [facility] HealthUrine [...] HealthYeast detection in urine sediment by light byzmosflpw3519-36-67 16:35:00* Test Item Value Reference Range Interpretation Comme nts Urine Yeast (test code = 96376-3) None Seen /[HPF] None [facility]Service comment [...] HealthAutomated erythrocyte mean corpuscular hemoglobin concentration measurement (mass/oxf4289-77-45 16:25:00* Test Item Value Reference Range Interpretation Comme nts Mean Corpuscular Hemoglobin Concent (test code = 786-4) 31.6 g/dL 33.0-37.0 [facility] HealthAutomated erythrocyte distribution width huwjb6969-73-62 16:25:00 * Test Item Value Reference Range Interpretation Comme nts Red Cell Distribution Width (test code = 788-0) 12.3 % 10.7-14.5 [facility] HealthAutomated blood platelet count (count/volume)2019-06-12 16:25:00 * Test Item Value Reference Range Interpretation Comme nts Platelet Count (test code = 777-3) 295 10*3/uL 150-450 [facility] HealthAutomated blood platelet mean volume vlqezriugxe2049-22-28 16:25:00* Test Item Value Reference Range Interpretation Comme nts Mean Platelet Volume (test c ode = 29173-4) 11.0 5.7-10.7 [facility] comment [id number] 16:25:00* Test Item Value Reference Range Interpretation Comme nts Manual Differential (test co de = 8265-1) ----- [facility] HealthManual blood segmented neutrophils/100 xdfefkdwuu7631-64-07 16:25:00* Test Item Value Reference Range Interpretation Comme nts Neutrophils % (Manual) (test code = 769-0) 47 % 42-75 [facility] HealthManual blood band neutrophils form/100 rwgnvqpskm9333-64-36 16:25:00* Test Item Value Reference Range Interpretation Comme nts Band Neutrophils % (Manual) (test code = 764-1) 4 % 5-11 [facility] HealthManual blood lymphocytes/100 xsvvxvygpf3180-29-60 16:25:00* Test Item Value Reference Range Interpretation Comme nts Lymphocytes % (Manual) (test code = 737-7) 43 % 21-51 [facility] HealthManual blood monocytes/100 bjszktuyio4695-10-80 16:25:00* Test Item Value Reference Range Interpretation Comme nts Monocytes % (Manual) (test c ode = 744-3) 4 % 1-9 [facility] HealthManual blood eosinophil count as percentage of total leukocytes 2019-06-12 16:25:00* Test Item Value Reference Range Interpretation Comme nts Eosinophils % (Manual) (test code = 714-6) 1 % 0-7 [facility] HealthManual blood basophils/100 tkhywhzkvx5084-49-60 16:25:00* Test Item Value Reference Range Interpretation Comme nts Basophils % (Manual) (test c ode = 707-0) 1 % 0-2 [facility] HealthBlood platelet detection by light toaqlrhfyj5304-94-96 16:25:00* Test Item Value Reference Range Interpretation Comme nts Platelet Estimate (test code = 9317-9) Adequate [facility] HealthBlood erythrocyte morphology finding unmezcrjfynmxu6836-27-95 16:25:00* Test Item Value Reference Range Interpretation [...] Comme nts Anion Gap (test code = 96528-0) 14 8-18 [facility] HealthSerum or plasma urea nitrogen measurement (mass/volume)2019-06-12 16:25:00* Test Item Value Reference Range Interpretation Comme nts Blood Urea Nitrogen (test co de = 3094-0) 10 mg/dL 7-19 [facility] HealthSerum or plasma creatinine measurement (mass/volume)2019-06-12 16:25:00* Test Item Value Reference Range Interpretation Comme nts Creatinine (test code = 2160-0) 0.7 mg/dL 0.6-1.1 [facility] HealthGFR estimate [id number] 16:25:00* Test Item Value Reference Range Interpretation Comme nts Estimat Glomerular Filtratio n Rate (test code = 19617-8) 111 90-142 [facility] HealthSerum or plasma glucose measurement (mass/volume)2019-06-12 16:25:00* Test Item Value Reference Range Interpretation Comme nts Glucose Level (test code = 2345-7) 127 mg/dL 60-100 [facility] HealthSerum or plasma calcium measurement (mass/volume)2019-06-12 16:25:00* Test Item Value Reference Range Interpretation Comme nts Calcium Level (test code = 86051-4) 9.5 mg/dL 8.4-10.2 [facility] HealthSerum or plasma [...] (test code = 1751-7) 4.4 g/dL 3.5-5.0 [facility] or plasma alkaline phosphatase measurement (enzymatic activity/volume)2019-06-12 16:25:00* Test Item Value Reference Range Interpretation Comme nts Alkaline Phosphatase (test c ode = 6768-6) 78 U/L 40-150 [facility] or plasma lipase measurement (enzymatic activity/volume) 2019-06-12 16:25:00* Test Item Value Reference Range Interpretation Comme nts Lipase (test code = 3040-3) 21 U/L 8-78 [facility] 1 VIEW HPVLGGKI0169-50-13 07:15:[address] [address]FWPLCZBHIU IMAGING REPORTPa tient Name: DEYSI ALVAREZ BDate of Service: 99-87-4982Gfg: 23 Sex: F Order #: [id number] [facility] 1995 [facility] Number: [id number] Record Number: [id number] Hospital Number: [id number] Physician: Marbella THOMAS Physician: JOAQUIN CODY ONE VIEW 12/25/2018HISTORY: Left chest painCOMPARISON: NoneCardiac, hilar, and mediastinal structures are normal. Lungs arewell-aerated and clear. No effusion or pneumothorax. No acute bony or softtissue abnormalities are identified.IMPRESSION:Clear chest.The study was performed on an emergent basis and preliminary report faxedto the Emergency Department by the [facility] Radiology [facility] service nearthe time of the exam.Electronically Signed By: Arturo Moore M.D., 12/25/2018 7:13 AMLbritany authenticated by JOY FRANCO 2018-12-25 07:13:16KQBQ2326-60-53 02:24:00* Test Item Value Reference Range Interpretation Comme nts %CKMB (test code = %MB) TNP % UNABLE TO CALCULATE RESULTS DUE TO CKMB <0.22 NG/ML. CKMB (test code = CKMB) <0.22 NG/ML 0.22-2.4 CK (test code = CK) 55 U/L 30-135 CKINTERP (test code = CKINTERP) NEGATIVE Negative TROPONIN I - [id number] 02:23:00* Test Item Value Reference Range Interpretation Comme nts TROP-I (test code = TROP-I) <0.012 ng/ml 0.012-0.033 INTERPRETI VE DATA A TROPONIN OF LESS THAN 0.034 NG/ML IS CONSIDERED NEGATIVE A TROPONIN OF 0.034 - 0.119 NG/ML IS CONSIDERED GRAYZONE A TROPONIN =/> 0.120 NG/ML IS CONSIDERED POSITIVE [id number] 02:17:00* Test Item Value Reference Range Interpretation Comme nts LIPASE (test code = LIPA) 84 U/L 23-300 [id number] 02:17:00* Test Item Value Reference Range Interpretation Comme nts SODIUM (test code = NA) 142 MMOL/L 137-145 K+ (test code = KSERUM) 3.8 MMOL/L 3.5-5.1 PLEASE NOTE NEW REFERENCE RANGE(S) IN EFFECT EFFECTIVE 01/30/2010 - NEW ANALYZER ([employer] [address]) CHLORIDE (test code = CL) 105 MMOL/L 98-107 CO2 (test code = CO2) 27 MMOL/L 22-30 BUN (test code = BUN) 9 MG/DL 7-17 CREA (test code = CREA) 0.5 MG/DL 0.7-1.2 L GLUCOSE (test code = GLUCOSE) 142 MG/DL 70-99 H Fasting glucos e normal <100 MG/DL- [employer] recommendation CALCIUM (test code = [...] of >90 mL/min/1.73m2 is considered normal. D-DIMER, NOGZGBHAWTJM7384-71-86 02:14:00* Test Item Value Reference Range Interpretation [...] HCG LOT # (test code = UHCGLOT) [id number] HCG EXPIRATION DATE (test code = UHCGEXP) 05-27-20 [id number] 02:01:00* Test Item Value Reference Range Interpretation [...] 1.000-1.025 UAMICRO (test code = UAMICRO) NO [id number] 01:50:00* Test Item Value Reference Range Interpretation [...] code = NEUT) 4.2 K/UL 1.2-7.2 PATHOLOGY [id number] 08:19:00TISSUE CONSULTATION REPORTBAPTUT HEALTH NOR[facility]AMPUS TYLERDEPARTMENT OF PATHOLOGYP.[address] [address] SHEYLA CORTES M.D.LIZ RIVERA M.D.JOSH E. NERI, M.D. ____Patient: DEYSI ALVAREZ 1995 23 FRoom:Hosp#: [id number] Ordering Physician: CAROLYN VALLE Rec.:08/31/2018Date of Proc.: 08/31/2018Lab No.: [id number] FINAL ANATOMIC DIAGNOSIS:STOMACH, BIOPSY:- CHRONIC INACTIVE GASTRITIS WITH SUPERIMPOSED REACTIVE CHANGE.- NEGATIVE FOR HELICOBACTER FORMS BY JENNIFER STAIN.- NEGATIVE FOR INTESTINAL METAPLASIA BY AB/PAS STAIN.- NEGATIVE FOR DYSPLASIA OR MALIGNANCY.MICROSCOPIC EXAMINAT ION:Performed; see diagnosis.GROSS APPEARANCE:The specimen is labeled "random gastric biopsy." Submitted informalin are two yellow-leon mucosal fragments measuring 0.5 x 0.3 x0.2 cm in aggregate, ET one block wraps.PATHOLOGIST: Sheyla Herman Electronically Signed: 09/01/20185408EVI9311-89-85 07:46:00* Test Item Value Reference Range Interpretation Comme nts SODIUM (test code = NA) 142 MMOL/L 137-145 K+ (test code = KSERUM) 3.4 MMOL/L 3.5-5.1 L PLEASE NOTE NEW REFERENCE RANGE(S) IN EFFECT EFFECTIVE 01/30/2010 - NEW ANALYZER ([employer] [address]) CHLORIDE (test code = CL) 105 MMOL/L 98-107 CO2 (test code = CO2) 26 MMOL/L 22-30 BUN (test code = BUN) 6 MG/DL 7-17 L CREA (test code = CREA) 0.6 MG/DL 0.7-1.2 L GLUCOSE (test code = GLUCOSE) 87 MG/DL 70-99 Fasting glucos e normal <100 MG/DL- [employer] recommendation CALCIUM (test code = [...] GFR of >90 mL/min/1.73m2 is considered normal. [id number] 07:19:00* Test Item Value Reference Range Interpretation [...] = NEUT) 4.6 K/UL 1.2-7.2 ACUTE HEPATITIS [id number] 03:34:00* Test Item Value Reference Range Interpretation [...] be sent to reference lab for confirmation. [id number] 17:52:00* Test Item Value Reference Range Interpretation Comme nts SODIUM (test code = NA) 141 MMOL/L 137-145 K+ (test code = KSERUM) 4.0 MMOL/L 3.5-5.1 PLEASE NOTE NEW REFERENCE RANGE(S) IN EFFECT EFFECTIVE 01/30/2010 - NEW ANALYZER ([employer]) CHLORIDE (test code = CL) 103 MMOL/L 98-107 CO2 (test code = CO2) 29 MMOL/L 22-30 BUN (test code = BUN) 7 MG/DL 7-17 CREA (test code = CREA) 0.5 MG/DL 0.7-1.2 L GLUCOSE (test code = GLUCOSE) 120 MG/DL 70-99 H Fasting glucos e normal <100 MG/DL- [employer] recommendation CALCIUM (test code = [...] GFR of >90 mL/min/1.73m2 is considered normal. [id number] 17:52:00* Test Item Value Reference Range Interpretation Comme nts LIPASE (test code = LIPA) 65 U/L 23-300 [id number] 17:33:00* Test Item Value Reference Range Interpretation [...] = NEUT) 6.1 K/UL 1.2-7.2 CT ABDOMEN/PELVIS [id number] 07:30:[address] [address]CCOFZPRCEE IMAGING REPORTPatient Name: DEYSI ALVAREZ BDate of Service: 75-68-5068Yfx: 23 Sex: F Order #: 600 Room: [facility] [place]: 1995 X-Ray Number: [id number] Record Number: [id number] Hospital Number: [id number] Physician: KIERA DELA CRUZ Physician: FRANK ASH ABDOMEN/PELVIS WITH 08/30/2018 12:33 AMHISTORY: Abd pain without fever . Abdominal pain with nausea andvomiting.COMPARISON: 08/20/2018[facility] HNIQUE: IV contrast-enhanced CT imaging of the abdomen and pelvis. ThisCT exam was performed using one or more of the following dose reductiontechniques: Automated exposure control, adjustment of themA and/or KVaccording to patient size, or use of iterative reconstruction technique.FINDINGS:There is mild bibasilar atelectasis. Heart size is normal.Within the dome of the right lobe of the liver is an 11 mm hyperdenselesion that is similar to the prior precontrast enhanced study performed on08/20/2018. There is diffuse hepatic steatosis. The gallbladder issurgically absent.The spleen, pancreas,adrenal glands, and kidneys are normal.The bowel is unobstructed. The appendix is normal. There is no free fluidor free air in the abdomen or pelvis. The bladder is distended and normal.The bones areintact without acute abnormality.IMPRESSION:1. No acute abnormality of the abdomen or pelvis.2. 11 mm hyperdense lesion within the dome of the right lobe of the liveris nonspecific but similar to theprior study from 08/20/2018. Furtherevaluation with pre and post IV contrast MRI of the abdomen may help bettercharacterize this lesion.3. Hepatic steatosis.Electronically Signed By: Sheyla Goss M.D., 08/30/2018 7:28 AMLegally authenticated by TORRIE CARRION 2018-08-30 07:28:[id number] 21:58:00* Test Item Value Reference Range Interpretation [...] HCG LOT # (test code = UHCGLOT) [id number] HCG EXPIRATION DATE (test code = UHCGEXP) 07-20 [id number] 19:28:00* Test Item Value Reference Range Interpretation Comme nts LIPASE (test code = LIPA) 48 U/L 23-300 [id number] 19:28:00* Test Item Value Reference Range Interpretation Comme nts SODIUM (test code = NA) 140 MMOL/L 137-145 K+ (test code = KSERUM) 4.0 MMOL/L 3.5-5.1 PLEASE NOTE NEW REFERENCE RANGE(S) IN EFFECT EFFECTIVE 01/30/2010 - NEW ANALYZER ([employer]) CHLORIDE (test code = CL) 102 MMOL/L 98-107 CO2 (test code = CO2) 27 MMOL/L 22-30 BUN (test code = BUN) 10 MG/DL 7-17 CREA (test code = CREA) 0.6 MG/DL 0.7-1.2 L GLUCOSE (test code = GLUCOSE) 84 MG/DL 70-99 Fasting glucos e normal <100 MG/DL- [employer] recommendation CALCIUM (test code = [...] GFR of >90 mL/min/1.73m2 is considered normal. [id number] 19:21:00* Test Item Value Reference Range Interpretation [...] = NEUT) 8.3 K/UL 1.2-7.2 H PATHOLOGY [id number] 09:33:00TISSUE CONSULTATION REPORTBAPTIST COLUMBUS COMMUNITY HOSPITALDEPARTMENT OF PATHOLOGYP.[address]. [address] [address] ROBERT Geovanni CORTES M.D.ROBERTO REED M.D.SHEYLA HERMAN M.D.JOSH NERI M.D. ____Patient: DEYSI ALVAREZ 1995 23 FRoom:Hosp#: [id number] Ordering Physician: JUAN MERAZ Rec.: 08/26/2018Date of Proc.: 08/25/2018Lab No.: [id number] PRE-OPERATIVE DIAGNOSIS:Chronic cholecystitisFINAL ANATOMIC DIAGNOSIS:GALLBLADDER, CHOLECYSTECTOMY: CHRONIC [...] are submitted in a single cassette.PATHOLOGIST: Roberto Reed Electronically Signed: 08/29/2018ABDOMEN 2 [id number] 07:15:[address] [address]SVJVTNZIWO IMAGING REPORTPatient Name: DEYSI ALVAREZ BDate of Service: 61-49-5203Pdo: 23 Sex: F Order #: 600 Room: [facility] [place]:1995 X-Ray Number: [id number] Record Number: [id number] Hospital Number: [id number] Physician: GABBY THOMASOrdering Physician: Radha THOMAS 2 [...] HCG LOT # (test code = UHCGLOT) [id number] HCG EXPIRATION DATE (test code = UHCGEXP) 01-14 [id number] 05:07:00* Test Item Value Reference Range Interpretation [...] (test code = URMUCOUS) MUCH /LPF NONE [id number] 04:11:00* Test Item Value Reference Range Interpretation [...] NEUT) 4.3 K/UL 1.2-7.2 BMP, BASIC METABOLIC [id number] 04:03:00* Test Item Value Reference Range Interpretation Comme nts SODIUM (test code = NA) 141 MMOL/L 137-145 K+ (test code = KSERUM) 4.1 MMOL/L 3.5-5.1 PLEASE NOTE NEW REFERENCE RANGE(S) IN EFFECT EFFECTIVE 01/30/2010 - NEW ANALYZER ([employer]) CHLORIDE (test code = CL) 111 MMOL/L 98-107 H CO2 (test code = CO2) 22 MMOL/L 22-30 BUN (test code = BUN) 11 MG/DL 7-17 CREA (test code = CREA) 0.5 MG/DL 0.7-1.2 L GLUCOSE (test code = GLUCOSE) 112 MG/DL 70-99 H Fasting glucos e normal <100 MG/DL- [employer] recommendation CALCIUM (test code = CABLOOD) 8.7 MG/DL 8.4-10.2 GFR (test code = GFR) 166 mL/min/1.73m2 A GFR of >90 mL/min/1.73m2 is considered normal. LIVER [id number] 04:03:00* Test Item Value Reference Range Interpretation [...] code = ALT) 428 U/L 13-69 H [id number] 04:03:00* Test Item Value Reference Range Interpretation Comme nts LIPASE (test code = LIPA) 157 U/L 23-300 [id number] 13:45:00* Test Item Value Reference Range Interpretation Comme nts SODIUM (test code = NA) 139 MMOL/L 137-145 K+ (test code = KSERUM) 4.2 MMOL/L 3.5-5.1 PLEASE NOTE NEW REFERENCE RANGE(S) IN EFFECT EFFECTIVE 01/30/2010 - NEW ANALYZER ([employer]) CHLORIDE (test code = CL) 105 MMOL/L 98-107 CO2 (test code = CO2) 26 MMOL/L 22-30 BUN (test code = BUN) 8 MG/DL 7-17 CREA (test code = CREA) 0.5 MG/DL 0.7-1.2 L GLUCOSE (test code = GLUCOSE) 105 MG/DL 70-99 H Fasting glucos e normal <100 MG/DL- [employer] recommendation CALCIUM (test code = [...] GFR of >90 mL/min/1.73m2 is considered normal. [id number] 12:43:00* Test Item Value Reference Range Interpretation [...] 9.2 K/UL 1.2-7.2 H US LIMITED ABD [id number] 07:27:[address] [address]SJNXRBIFOC IMAGING REPORTPatient Name: DEYSI ALVAREZ BDate of Service: 31-99-1097Lbx: 23 Sex: F Order #: 600 Room: [facility] [place]:1995 X-Ray Number: [id number] Record Number: [id number] Hospital Number: [id number] Physician: Marbella THOMAS Physician: Ladarius THOMAS upper [...] report faxedto the Emergency Department by the [facility] Radiology [facility] service nearthe time of the exam.Electronically Signed By: Arturo Moore M.D., 08/25/2018 7:25 AMLegally authenticated by JOY FRANCO 2018-08-25 07:25:[id number] 07:14:00* Test Item Value Reference Range Interpretation Comme [facility] BLOOD TYPE (test code = TYPE) A Rh Negative ANTIBODY SCREEN (test code = SCREEN) NEGATIVE NEGATIVE [id number] 03:58:00* Test Item Value Reference Range Interpretation Comme [facility] LIPASE (test code = LIPA) 57 U/L 23-300 LIVER [id number] 03:58:00* Test Item Value Reference Range Interpretation Comme [facility] TOTPROT (test code = TOTPROT) 7.2 G/DL 6.3-8.2 ALBUMIN (test code = ALBSERUM) 4.2 G/DL 3.5-5.0 BILITOT (test code = BILITOT) 0.3 MG/DL 0.2-1.3 BILIDIR (test code = BILIDIR) 0.3 MG/DL 0.0-0.4 AST (test code = AST) 30 U/L 15-46 PHOSALK (test code = PHOSALK) 59 U/L 38-126 ALT (test code = ALT) 35 U/L 13-69 [id number] 03:52:00* Test Item Value Reference Range Interpretation [...] 1.000-1.025 UAMICRO (test code = UAMICRO) NO [id number] 03:48:00* Test Item Value Reference Range Interpretation [...] code = NEUT) 6.1 K/UL 1.2-7.2 ISTAT [id number] 03:45:00* Test Item Value Reference Range Interpretation Comme nts ISTAT HCG (test code = ISHCG) <5.0 IU/L A value of less than or equal to <5 IU/L is considered NEGATIVE. A value between 5 IU/L and 25 IU/L is considered INDETERMINATE. A value of >25 IU/L is considered POSITIVE. ISTAT CHEM [id number] 03:25:00* Test Item Value Reference Range Interpretation [...] code = ISTANGAP) 19 MMOL/L CT ABDOMEN/PELVIS [id number] 07:45:[address] [id number] IMAGING REPORTPatient Name: DEYSI ALVAREZate of Service: [id number]: 23 Sex: F Order #: [id number] [facility]1995 [facility] Number: [id number] Record Number: [id number] Hospital Number: [id number] Physician: LASHAWN ALIOrdering Physician: RADHA HOLLINS abdomen [...] 7:43 AMLegally authenticated by CHRISTOPH Rodriguez 2018-08-21 07:43:[id number] 22:43:00* Test Item Value Reference Range Interpretation Comme nts LIPASE (test code = LIPA) 65 U/L 23-300 LIVER [id number] 22:43:00* Test Item Value Reference Range Interpretation [...] ALT) 28 U/L 13-69 BMP, BASIC METABOLIC [id number] 22:43:00* Test Item Value Reference Range Interpretation Comme nts SODIUM (test code = NA) 140 MMOL/L 137-145 K+ (test code = KSERUM) 3.9 MMOL/L 3.5-5.1 PLEASE NOTE NEW REFERENCE RANGE(S) IN EFFECT EFFECTIVE 01/30/2010 - NEW ANALYZER ([employer] 5600) CHLORIDE (test code = CL) 109 MMOL/L 98-107 H CO2 (test code = CO2) 23 MMOL/L 22-30 BUN (test code = BUN) 8 MG/DL 7-17 CREA (test code = CREA) 0.4 MG/DL 0.7-1.2 L GLUCOSE (test code = GLUCOSE) 96 MG/DL 70-99 Fasting glucos e normal <100 MG/DL- [employer] recommendation CALCIUM (test code = CABLOOD) 9.3 MG/DL 8.4-10.2 GFR (test code = GFR) 214 mL/min/1.73m2 A GFR of >90 mL/min/1.73m2 is considered normal. [id number] 22:07:00* Test Item Value Reference Range Interpretation [...] HCG LOT # (test code = UHCGLOT) [id number] HCG EXPIRATION DATE (test code = UHCGEXP) 01-26-20 [id number] 22:03:00* Test Item Value Reference Range Interpretation [...] complete the procedure, cardiovascular complications such as GA, stroke, arrhythmia, and . Informed consent obtained. Izzy Joseph DO Gastroenterology PGY 5 Pager#[phone] Associated attestation - Darian Begum MD - 12/09/2023 1:15 PM CDT I personally examined the patient on 12/09/[address] Joseph's resident/fellow note as written. I actively participated in the decision-making process. Please see the resident/fellow's note for additional details. Darian Begum MD [facility] Forensic Science Technician Gastroenterology -GASTROENTEROLOGY [facility] Notes Date/Time Note Provider Source 2024-05-23 14:58:53 Patient has read Lionor's My Chart message R Galindo RN [facility] 2024-05-23 14:11:06 3rd attempt will send via [employer]. Will check if reads later today or tomorrow. R Chadwick MA [facility] 2024-05-22 09:12:15 Attempt #2 to contact pt with physician review from recent monitor. LVM R Bradley RN [facility] 2024-05-19 14:00:07 Images from the original note were not included. Attempted to contact patient with results/recommendations. LVM for patient to return call to [phone]. Nadine Zapata MD P Cardiology Nurse 30-day monitor only showed sinus tachycardia. No other arrhythmias noted. She may be reassured from the cardiac standpoint. If continues to have persistent palpitations, recommended EP appointment. Please verify the current dose of Toprol-XL that she is taking. We may consider weaning off the Toprol-XL since no significant arrhythmias noted in the event monitor. She needs to work on lifestyle modifications in terms of daily exercise and conditioning her heart. [employer] FARM MANAGER [facility] 2024-04-26 17:39:54 Pt given printed and verbal discharge instructions regarding chest pain, encouraged hydration. Pt verbalized understanding of instructions, pt awake alert oriented, resp reg unlabored, skin w/d, color appropriate for race, moves all ext well, pt encouraged to follow up with pcp. Advised to seek medical attention for new/prolonged/worsening of symptoms. Symptoms addressed. No adverse reaction to meds given in ER noted upon discharge. PIV d'cd, dressing to site, catheter intact. Pt leaving amb with steady gait, in no apparent distress. Dalila Laguna RN [facility] 2024-04-26 11:44:43 Event monitor strips from 04/15/2024 reviewed up until yesterday. No arrhythmias noted. Sinus tachycardia noted. HR noted to be ranging at 104/107 the maximum heart rate noted to be at 116 bpm. Patient may restart her metoprolol XL that I had asked her to avoid taking it before the event monitor. She can increase the Toprol XL to 25 mg BiD. Recommend to complete the event monitor. Would start the discussion with PCP for noncardiac workup for shortness of breath and get pulmonary evaluation. Final testing if she continues to have shortness of breath is cardiac CTA. [facility] 2024-04-26 11:11:15 Patient to ED for chest pain and shortness of breath. Has had shortness of breath since Wednesday and was seen here and discharged. Called Dr. Rodríguez today and was told to go to ED due to chest pain. PMH: Tachycardia Mike Lima RN [facility] 2024-04-26 10:16:48 Spoke with patient. She is having shortness of breath even while at rest. Previously shortness of breath was primarily with activity. She feels like she can't take a deep breath/ In addition, starting yesterday afternoon she has been having constant chest tightness/heaviness. Rates it currently 01/04. Nothing has made better or worse. She is currently wearing heart monitor. Has not started metoprolol yet that Dr. Zapata had prescribed for elevated heart rate due to waiting for completion of the monitor. Patient was recently in the ER for shortness of breath on 04/21/24. Given the new development of chest pain, I advised patient to return to the ER. Patient was agreeable to plan. Routing to Dr. Zapata to notify. Honey Galindo RN [facility] 2024-04-21 18:14:15 Patient dc home. Follow up with pcp. Verbalized understanding. TA Lima RN [facility] 2024-04-21 15:52:59 Patient states: "I have covid 3 weeks ago. I came into the er with the same thing, I couldn't breath. It's since gotten worse. It feels like when I was big and and couldn't breath. I can not catch my breath" Tigist Loyola RN [facility] 2024-04-19 08:59:56 Notified pt of physician review from recent echo. Pt verbalized understanding. Yi Bradley RN [facility] 2024-04-18 09:57:00 Attempted to contact patient with results/recommendations. LVM for patient to return call to [phone]. If patient returns call, please let her know that the results of heart ultrasound are normal. Nadine Zapata MD P Cardiology Nurse Echo with in acceptable normal limits. Preserved LVEF. No significant valve diease noted Honey Galindo RN [facility] 2024-04-14 08:00:00 [employer] 30-day event monitor applied to patient. Wear and care explained. Patient verbalized understanding. Patient given instruction on how to return monitor on 05/15/2024 to [employer] . Honey Galindo RN [facility] 2024-03-27 09:45:27 Written/verbal d/c instructions, out of er no distress AT [facility] 2024-03-27 08:23:55 Images from the original note were not included. Requested Renewals DULoxetine 60 mg capsule Sig: Take 1 capsule by mouth in the morning. Disp: 90 capsule Refills: 1 Start: 03/27/2024 Class: eRX For: Adjustment disorder with anxiety Last ordered: 6 months ago (09/14/2023) by Liberty Watson MD Neuropathic Pain Rslhtl4703/27/2024 08:17 AM Protocol Details Manual Review: Verify no changes in dose in the last 3 months Valid encounter within last 12 months To be filled at: [facility] [address] [place] [address] 12-01-2023 NOV N/A Taylor Garcia MA [facility] 2024-03-27 08:16:28 Images from the original note were not included. [facility] 2024-03-27 08:13:29 Deysi Alvarez is a 29 year old female c/o positive covid 2 days ago and cough hurts and makes feel short of breath, alert speaking in complete sentences, no distress Lelo Mckeon RN [facility] 2024-02-14 15:08:40 Appointment is scheduled. Justo Mancini [facility] 2024-02-14 13:19:20 Patient has appointment scheduled for 02/25/24, does she need to come in earlier than that date? [facility] 2024-02-14 11:28:53 Suggest pt come into office this week to start control if menses started. SHAWNA Burgess 02/14/2024 11:31 AM [facility] 2024-02-14 08:56:42 Deysi Alvarez is a 28 year old female Pt is calling to get a b/c med called out due to her being on her period. Ubaldo Alvarez [facility] 2024-02-01 16:49:10 Patient is scheduled 02/09/24. Sagar Byrnes RN 02/01/2024 4:49 PM Sagar Byrnes RN [facility] 2023-12-28 10:03:03 Please review and advise on dosage change. Maria Del Carmen Royal RN [facility] 2023-12-23 10:15:00 Images from the original note were not included. Venipuncture collection performed by clean technique on the left anticubitus. Total of 1 attempts were made. Slight pressure and a bandage/dressing were applied to the site(s). The patient experienced no complications. The following specimens were processed according to instructions and sent to [facility] laboratories per lab order on 12/23/2023 : LT BLUE SST 1 RED LAV PPT DK GREEN (LiHep) DK GREEN (SodH) REGAN DK BLUE (K2) DK BLUE (S) ACD Blood Culture NIPT/NTD T [facility] 2023-12-22 16:38:38 Called and spoke to patient about lab results. Will redraw labs tomorrow morning to re-address TSH before filling her prescription. T [facility] 2023-12-22 10:17:16 Please review and advise on medication dosage. Maria Del Carmen Royal RN [facility] 2023-12-21 14:45:00 Images from the original note were not included. Venipuncture collection performed by clean technique on the right anticubitus. Total of 1 attempts were made. Slight pressure and a bandage/dressing were applied to the site(s). The patient experienced no complications. The following specimens were processed according to instructions and sent to [facility] laboratories per lab order on 12/21/2023 : LT BLUE SST 2 RED LAV PPT DK GREEN (LiHep) DK GREEN (SodH) REGAN DK BLUE (K2) DK BLUE (S) ACD Blood Culture NIPT/NTD T [facility] 2023-11-26 14:21:46 Patient contacted for pre op [...] op call complete. T Florence Gomes RN [facility] 2023-11-26 14:03:44 Preop call attempted. Patient was unavailable. Voice message left on patients voicemail. Patient instructed to return call and confirm appointment. [facility] 2023-11-04 13:00:00 Images from the original note [...] processed according to instructions and sent to [facility] laboratories per lab order on 11/04/2023: LT BLUE SST 2 RED LAV 1 PPT DK GREEN (LiHep) DK GREEN (SodH) REGAN DK BLUE (K2) DK BLUE (S) ACD Blood Culture NIPT/NTD [facility] 2023-10-27 11:34:51 I called patient and relayed provider's lab result remarks and msg that CT has been ordered and to go to ED if abd pain worsens before getting CT. T Isauro Hernandez RN [facility] 2023-10-27 11:16:41 Addressed in separate message to you. T [facility] 2023-10-27 11:14:49 Inform patient that AST and ALT are improving. GGT which is also a marker of liver inflammation is mildly elevated. Lipase is normal which rules out acute pancreatitis. Hepatitis A testing is negative. If abdominal pain continues, CT abdomen has been ordered to evaluate this. If pain gets worse before CT scan can be done, come to ED. T [facility] 2023-10-27 10:10:30 Dr. Pennington's reply to patient sent to patient via [employer] msgs. T Isauro Hernandez RN [facility] 2023-10-27 09:15:38 Inform patient that AST and ALT are improving. GGT is mildly elevated and should improve if liver inflammation resolves. OCP's can cause liver inflammation in some patients but for mild liver inflammation like this, I would not ask her to stop it. If abdominal pain continues, she can either wait for CT scan to be done or go to ED. [facility] 2023-10-26 13:32:17 Deysi Alvarez is a 28 year old female is calling to discuss results of her labs. Jojo Acosta [facility] 2023-10-25 16:43:34 Deysi Alvarez is a 28 year old female is calling stating she was seen today but the pain in her left side has not subsided. She would like a call to also review her labs. Jojo Acosta [facility] 2023-10-25 11:30:00 Images from the original note were not included. Venipuncture collection performed by clean technique on the right anticubitus. Total of 1 attempts were made. Slight pressure and a bandage/dressing were applied to the site(s). The patient experienced no complications. The following specimens were processed according to instructions and sent to [facility] laboratories per lab order on 10/25/2023 : LT BLUE SST 1 RED LAV 1 PPT DK GREEN (LiHep) DK GREEN (SodH) REGAN DK BLUE (K2) DK BLUE (S) ACD Blood Culture NIPT/NTD Patient has been identified by and name and was provided with cup, antiseptic towelette, and clean catch instructions. 1 urine specimen(s) sent. Unpreserved 1 Urine Culture Aptima tube Other urine [facility] 2023-10-20 15:54:[address] pennington 10-25-23 11am Ivette Castro V [facility] 2023-10-20 09:37:35 Deysi Alvarez is a 28 year old female Pt calling requesting to schedule an appt due to liver enzymes being elevated provider does not have anything available coming up and no schedule past November. Please call the pt to discuss an appt. Please advise. Adeola Garcia [facility] 2023-10-16 17:52:58 Patient given discharge instructions on fatigue. No prescriptions. Advised to follow up with pcp. Pt left ER ambulatory, no signs of distress. [facility] 2023-10-16 16:01:28 Missed IV attempt to left AC, blood collected. Pt given sandwich and chocolate pudding. T [facility] 2023-10-16 15:15:42 Patient states: "I feel super shaky, like I'm going to pass out. I feel like I'm not even awake. It feels very foggy. It's been going on for 2 days" Pmhx: Hypothyroidism, iron deficiency anemia, BGL in triage 77. Reports doing low carb diet over past 2 weeks. Pt given juice. Tigist Loyola RN [facility] 2023-10-14 16:37:43 Call placed, attempt #3 with no answer. Will await call back, will close encounter. Lucero Blanchard RN [facility] 2023-10-13 16:39:13 Call placed, attempt #2 with no answer. [facility] 2023-10-13 13:21:53 Images from the original note were not included. Notes: lisinopriL 10 mg tablet Sig: Take 1 tablet by mouth in the morning. Disp: Not specified Refills: Start: 10/13/2023 Class: eRX Last ordered: 6 days ago (10/07/2023) by [place] [facility] Unassigned Cardiovascular: SAMRE[employer] Inhibitors Nfpocj6310/13/2023 01:19 PM Protocol Details Valid encounter within last 12 months K in normal range and within 360 days Cr in normal range and within 360 days To be filled at: [id number] - [place], [place] - [address] Last Refilled: I don't see this as being prescribed by our office. Recent Visits Date Type Provider Dept 10/01/23 Office Visit Dago Ibarra NP [facility] Family Medicine 09/06/23 Office Visit Liberty Watson MD [facility] 06/16/23 Office Visit Liberty Watson MD [facility] 06/02/23 Office Visit Liberty Watson MD [facility] 05/12/23 Office Visit Liberty Watson MD [facility] Showing recent visits within past 540 days with a meds authorizing provider and meeting all other requirements Future Appointments Date Type Provider Dept 12/23/23 Appointment Liberty Watson MD [facility] Family Medicine Showing future appointments within next 150 days with a meds authorizing provider and meeting all other requirements Mary Maldonado MA [facility] 2023-10-13 13:19:24 Copied from [facility] #[id number]. Topic: Clinical - Referral >> Oct 13, 2023 1:16 PM Patient Press Feeder wrote: Deysi Alvarez is a 28 year old female pt would like to know where she can go for her Hematology. Pt states [facility] is not accepting pt at this time and the other location the pt was referred to does not accept her insurance. Pt would like to know does she have to go or can it be managed in the clinic. Pt is also asking for a refill of lisinopriL 10 mg tablet Iona Ritchie 10/13/23 1:18 PM Iona Ritchie [facility] 2023-10-12 11:00:47 Call placed to number listed, no answer. [facility] 2023-10-12 10:27:14 Deysi Alvarez is a 28 year old female Poonam with [facility] called stating they still need demographics for the patient. Please contact [phone] Eduardo Davison [facility] 2023-10-07 16:25:46 B12 is a water soluble vitamin . The body is can easily clear it without quick concern for accumulations. Will monitor and recheck it in few months [facility] 2023-10-07 15:33:36 Pt with concerns of elevated B-12, states was reading on [employer] could be caused by liver problems. Informed pt I have forwarded her [employer] message with this concern and awaiting response as is seeing pts. Informed pt once she responds we will let her know. Pt states has not taken any vitamins to elevate levels. Will forward to provider for review. Lucero Blanchard RN [facility] 2023-10-07 14:07:21 Copied from [facility] #[id number]. Topic: Clinical - Results >> Oct 07, 2023 2:06 PM Patient Press Feeder wrote: Pt called requesting to speak with Dr. Plaza in regards to her most recent lab work. She has questions. Please advise. Call back number:[phone] Jessica Beaulieu [facility] 2023-10-07 10:00:00 Images from the original note were not included. Venipuncture collection performed by clean technique on the left anticubitus. Total of 1 attempts were made. Slight pressure and a bandage/dressing were applied to the site(s). The patient experienced no complications. The following specimens were processed according to instructions and sent to [facility] laboratories per lab order on 10/07/2023 : LT BLUE SST 1 RED LAV PPT DK GREEN (LiHep) DK GREEN (SodH) REGAN DK BLUE (K2) DK BLUE (S) ACD Blood Culture NIPT/NTD [facility] 2023-10-05 15:02:27 Referral faxed. [facility] 2023-10-05 13:51:25 Deysi Alvarez is a 28 year old female that is requesting a referral for an external hematology clinic due to the [facility] hematology being backed up until January. [facility] at [address] [address] fax for anemia iron deficiency Kelli Lopez [facility] 2023-10-05 10:53:52 Referral for Hematology has been placed. [facility] 2023-10-04 15:21:26 Called patient and discussed labs and referrals. [facility] 2023-10-04 08:18:24 Forwarding to provider for review of labs and recommendations. Lucero Blanchard RN [facility] 2023-10-01 15:15:00 Images from the original note were not included. Venipuncture collection performed by clean technique on the right anticubitus. Total of 1 attempts were made. Slight pressure and a bandage/dressing were applied to the site(s). The patient experienced no complications. The following specimens were processed according to instructions and sent to [facility] laboratories per lab order on 10/01/2023: LT BLUE SST 3 RED LAV 1 PPT DK GREEN (LiHep) DK GREEN (SodH) REGAN DK BLUE (K2) DK BLUE (S) ACD Blood Culture NIPT/NTD [facility] 2023-09-21 15:45:29 Please let patient know that I can increase her Levothyroxine dose from 125 mcg to 137 mcg. I will send her prescription to her local pharmacy. For any further concerns about anemia, she should consult with her PCP. Charlene Dennis NP [facility] 2023-09-21 15:40:43 Patient recently seen for follow up on 09/07/23. Will route to provider to review and advise. Nubia Proctor LVN [facility] 2023-09-14 14:57:13 Images from the original note were not included. Routed to provider for review. Unable to refill per ambulatory refill guidelines. Notes: DULoxetine 60 mg capsule Possible duplicate: Hover to review recent actions on this medication Sig: Take 1 capsule by mouth in the morning. Disp: Not specified Refills: Start: 09/14/2023 Class: eRX Non-formulary Last ordered: 4 months ago (05/12/2023) by [place] [facility] Unassigned Neuropathic Pain Ufqxrc9009/14/2023 12:41 PM Protocol Details Manual Review: Verify no changes in dose in the last 3 months Valid encounter within last 12 months To be filled at: [id number] - [place], [place] - [address] Last Refilled: 07/2023 Recent Visits Date Type Provider Dept 09/06/23 Office Visit Liberty Watson MD [facility] 06/16/23 Office Visit Liberty Watson MD [facility] 06/02/23 Office Visit Liberty Watson MD [facility] 05/12/23 Office Visit Liberty Watson MD [facility] Showing recent visits within past 540 days with a meds authorizing provider and meeting all other requirements Future Appointments Date Type Provider Dept 12/23/23 Appointment Liberty Watson MD [facility] Medicine Showing future appointments within next 150 days with a meds authorizing provider and meeting all other requirements Mary Maldonado MA [facility] 2023-09-14 12:41:15 2nd refill request from pharmacy. Genesis Vergara [facility] 2023-09-09 10:50:40 Images from the original note were not included. Routed to provider for review. Unable to refill per ambulatory refill guidelines. Notes: DULoxetine 60 mg capsule Sig: Take 1 capsule by mouth in the morning. Disp: Not specified Refills: Start: 09/09/2023 Class: eRX Non-formulary Last ordered: 4 months ago (05/12/2023) by [place] [facility] Unassigned Neuropathic Pain Gbusmo9609/09/2023 08:11 AM Protocol Details Manual Review: Verify no changes in dose in the last 3 months Valid encounter within last 12 months To be filled at: [facility] #[id number] - [place], [place] - [address] Last Refilled: 07/2023 Recent Visits Date Type Provider Dept 09/06/23 Office Visit Liberty Watson MD [facility] Family Medicine 06/16/23 Office Visit Liberty Watson MD [facility] Family Medicine 06/02/23 Office Visit Liberty Watson MD [facility] Family Medicine 05/12/23 Office Visit Liberty Watson MD [facility] Family Medicine Showing recent visits within past 540 days with a meds authorizing provider and meeting all other requirements Future Appointments Date Type Provider Dept 12/23/23 Appointment ObLiberty Keys MD [facility] Family Medicine Showing future appointments within next 150 days with a meds authorizing provider and meeting all other requirements Mary Maldonado MA [facility] 2023-09-09 08:10:19 Images from the original note were not included. Suhas Mccarthy [facility] 2023-09-08 18:53:07 Called patient and spoke to [...] of the time, take one tablet daily. [facility] 2023-09-08 15:58:06 Responded to this is [employer] message. [facility] 2023-09-08 15:45:51 Deysi Alvarez is a 28 year old female Pt is calling to speak with provider regarding trying phentermine medication, Pt states, she would like to try since her BP has been under control, Please advise Elvia Davison [facility] 2023-09-08 15:38:33 Called patient and left a message about her concern about pancreatitis and how Zepbound is much safer than Phentermine. I will also send her a message through [employer]. [facility] 2023-09-08 15:34:15 I responded to this in a [employer] message. [facility] 2023-09-08 14:59:33 Patient called with concerns about taking Zepbound due to grandmother of pancreatic cancer. I advised her to read about medication on document specialist and FDA website and note that precautions [...] Routing for provider to advise. Nubia Proctor RAIL PROJECT ENGINEER [facility] 2023-09-08 14:30:42 Deysi Alvarez is a 28 year old female patient calling back has decided not to take Zepbound and is requesting RX for Phentermine instead. Please call [phone] Tosha Foley [facility] 2023-09-08 11:24:48 Provided information for patient through message on [employer]. Nubia Proctor RAIL PROJECT ENGINEER [facility] 2023-09-08 10:06:13 This was already sent to [facility] outpatient pharmacy by Dr Plaza. Closing encounter AT Nubia Proctor LVN [facility] 2023-09-08 09:11:22 Deysi Alvarez is a 28 year old female patient calling to make sure that Zepbound 7.5 mg/0.5 mg is safe for her to take, maternal grandmother with Pancreatic Cancer Please call [phone] Tosha Foley [facility] 2023-09-08 08:54:24 Attempted to contact patient. No answer, VM left. [employer] message sent. Sagar Byrnes RN 09/08/2023 8:54 AM Sagar Byrnes RN [facility] 2023-09-07 17:54:54 Addended by: LIBERTY ANSARI on: 09/07/2023 05:54 PM Modules accepted: Orders [facility] 2023-09-07 17:54:32 1. Class 1 obesity [...] 7.5mg qWeek. Dispense: 4 mL; Refill: 1 [facility] 2023-09-07 16:19:08 Patient is wanting to have IUD is currently on control pills want to know if Dr Wall thinks this is good option for her. Yanci Goss [facility] 2023-09-07 15:56:54 Deysi Alvarez is a 28 year old female Patient requesting tirzepatide 5 mg/0.5 mL subcutaneous injection and tirzepatide 2.5 mg/0.5 mL subcutaneous injection be sent to [facility] - [address] [place] [id number] Nicole Armstrong [facility] 2023-09-07 10:37:51 Hello, The Mounjaro was not covered due to using for weight loss and not type 2 diabetes. I did speak with Ms. Alvarez and she would like to try Zepbound. She is aware it is not covered, but would like to use the copay card. If a prescription for Zepbound could please be sent to [facility]. Please let me know if there are any questions or concerns. Thank you Maria Del Carmen Byrnes [facility] 2023-09-06 16:15:00 Images from the original note were not included. Venipuncture collection performed by clean technique on the right anticubitus. Total of 1 attempts were made. Slight pressure and a bandage/dressing were applied to the site(s). The patient experienced no complications. The following specimens were processed according to instructions and sent to [facility] laboratories per lab order on 09/06/2023 : LT BLUE SST 1 RED LAV PPT DK GREEN (LiHep) DK GREEN (SodH) REGAN DK BLUE (K2) DK BLUE (S) ACD Blood Culture NIPT/NTD T [facility] 2023-09-06 16:02:08 Pt at lab to get labs drawn. No current lab orders placed for upcoming appt tomorrow. Per [facility] : Plan - START LT4 125 mcg early in the AM since she reports the 112 mcg is not helping her. - levothyroxine 125 mcg tablet; Take 1 tablet by mouth every morning. Dispense: 90 tablet; Refill: 0 - THYROID STIMULATING HORMONE; Future - T4 FREE; Future TSH and T4 Free orders placed per [facility] plan. T [facility] 2023-09-06 15:35:10 Copied from [facility] #[id number]. Topic: Clinical - Medical Advice >> Sep 06, 2023 3:34 PM Patient Press Feeder wrote: Deysi Alvarez is a 28 year old female Pt seen today and busPIRone 7.5 mg tablet was not called in. Please send to Pharmacy. T [facility] 2023-08-23 15:00:28 EMILY 05/14/23 NOV 09/07/23 Per [facility] note: START LT4 125 mcg early in the AM since she reports the 112 mcg is not helping her. 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 Notify the COCP has been prescribed for her Mirian Wall MD [facility] 2023-02-04 10:44:26 Formatting of this n ote might be different from the original. Duplicate message. FLORENCE SALINAS RN 02/04/2023 10:44 AM T [facility] 2022-07-04 12:47:00 [facility] EMERGENCY PROVIDER REPORT REPORT#:[id number] REPORT STATUS: Signed DATE:07/04/22 TIME: 1247 PATIENT: DEYSI ALVAREZ UNIT #: [id number] ROOM/BED: AGE: 27 SEX: F PCP PHYS: Abi Peñaloza III, MD SERVICE AUTHOR: Rajesh Leavitt [...] or phobias. ENDOCRINE: Normal; Negative for diabetes, thyroid.HEMATOLOGIC/LYMPHATI C: Normal; Negative for anemia, swollen glands, or [...] 145/94 07/04 1118 B/P Mean 111 07/04 111 O2 Delivery Room air 07/04 1117 Temp 36.8 07/04 1117 Pulse 92 07/04 1117 Resp 18 07/04 1117 Last Documented: Result Date Time Pulse Ox 100 07/04 1118 B/P 145/94 07/04 1118 B/P Mean 111 07/04 1118 O2 Delivery Room air 07/04 1117 Temp 36.8 07/04 1117 Pulse 92 07/04 1117 Resp 07/04 111 Review of Vital Signs Reviewed, [...] % (Auto) (14.5 - 29.7 %) 26.6 [place] % (Auto) (3.6 - 10.2 %) 7.0 Eos % (Auto) (0.0 - 3.0 %) 1.0 Baso % (Auto) (0.1 - 0.9 %) 0.4 Neut # (Auto) (K/mm3) 4.7 Lymph # (Auto) (K/mm3) 1.9 [place] # (Auto) (K/mm3) 0.5 Eos # (Auto) (K/mm3) 0.07 Baso # (Auto) (K/mm3) 0.0 Miscellaneous Maternal Serum HCG 53424 Urines Urine Color (YELLOW) YELLOW Urine Appearance (CLEAR) CLOUDY H Urine pH (5 - 9) 8.0 Ur Specific [place] (1.001 - 1.035) 1.020 Urine Protein (NEGATIVE) [...] ULTRASOUND - US PREG UT TRANSVAGINAL 07/04 1349 Report Impression - Status: SIGNED Entered: 07/04/2022 [...] Aguilar MD ULTRASOUND - DUP AB/PEL/SC/LTD 07/04 1349 Report Impression - Status: SIGNED Entered: 07/04/2022 [...] - US PREG EVAL 1ST TRIMTR 07/04 135 Report Impression - Status: SIGNED [...] Instructions Bleeding During Early at 0639 RPT #:[id number] END OF REPORT [facility] 2018-09-28 15:17:04 [place] [address] Patient Name: DEYSI ALVAREZ Patient#: [id number] Admission Date: 08/30/2018 Discharge Date: 08/31/2018 Age/Gender: 23/F Date of : 1995 [facility]//BED: [facility]/A Admitting Phys: IUMY-SURGERY [facility] DISCHARGE SUMMARY DATE OF ADMISSION: 08/30/2018 [...] cholecystectomy and was treating the reflux with iapt-iku-vqcnfse medication. Her liver function tests were elevated, [...] Nacho Meraz MD TT: 09/28/2018 15:17:04 IT/MODL /[id number] Electronically Authenticated by: Nacho Stephens MD on 10/03/2018 06:55 AM CDT Legally authenticated by KT AHMADI 2018-10-03 06:55:57 [facility] 2018-08-31 11:47:50 [place] [address] Patient Name: DEYSI ALVAREZ Patient#: [id number] Admission Date: 08/30/2018 Date of : 1995 Age/Gender: 23/F HSSV//BED: [facility]/A Admitting Phys: Nacho Meraz MD OPERATIVE NOTE [...] voiced. Johan Valle DO TT: 08/31/2018 11:47:50 NARRAGANSETT/JUAN MANUELL /[id number] cc: Nacho Meraz MD Mason Lyon MD Electronically Authenticated by: Johan Valle D.O. on 08/31/2018 01:28 PM [employer] MANAGER Legally authenticated by LEONARD PRADO 2018-08-31 01:28:58 JOHAN VALLE [facility] 2018-08-31 03:51:38 [place] [address] Patient Name: DEYSI ALVAREZ Patient#: [id number] Admission Date: 08/30/2018 Date of : 1995 Age/Gender: 23/F HSSV/RM/BED: [facility]/A Admitting Phys: Nacho Meraz MD CONSULTATION NOTE [...] she has been treating them symptomatically with mrkg-wkx-eyndwrz medications. She had an ultrasound recently, on [...] follow. Johan Valle DO TT: 08/31/2018 03:51:38 NARRAGANSETT/JUAN MANUELL /[id number] Electronically Authenticated by: Johan Valle D.O. on 08/31/2018 01:28 PM [employer] MANAGER Legally authenticated by LEONARD PRADO 2018-08-31 01:28:30 JOHAN VALLE [facility] 2018-08-26 13:02:[address] [address] Patient Name: DEYSI ALVAREZ Patient#: [id number] Admission Date: 08/25/2018 Date of : 1995 Age/Gender: 23/F HSSV/RM/BED: [facility]/A Admitting Phys: Esequiel Galvan MD OPERATIVE NOTE DATE OF SURGERY: 08/25/2018 SURGEON: Nacho Meraz MD BACKUP SAWYER: None. PREOPERATIVE DIAGNOSIS Acute cholecystitis. POSTOPERATIVE DIAGNOSIS [...] infraumbilical port site with 0 Vicryl UR6 puvykh-wx-vbrbf stitch. Skin was closed with 4-0 Monocryl, Dermabond. Lap count and instrument count were correct. Transferred to recovery, extubated, under stable condition. Nacho Meraz MD TT: 08/26/2018 13:02:51 IT/MODL /[id number] Electronically Authenticated by: Nacho Stephens MD on 09/28/2018 02:32 PM CDT Legally authenticated by KT AHMADI 2018-09-28 02:32:05 [facility] 2018-08-25 10:48:53 [place] [address] Patient Name: DEYSI ALVAREZ Patient#: [id number] Admission Date: 08/25/2018 Date of : 1995 Age/Gender: 23/F S//BED: [facility]/A Admitting Phys: Esequiel Galvan MD HISTORY [...] follow. Esequiel Galvan MD TT: 08/25/2018 10:48:53 /JUAN MANUELL /[id number] Electronically Authenticated by: Esequiel Galvan M.D. on 08/26/2018 08:52 AM [employer]IN[employer] MANAGER Legally authenticated by COREY IRAHETA 2018-08-26 08:52:29 ESEQUIEL GALVAN [facility] 2018-08-25 10:10:[address] [address] Patient Name: DEYSI ALVAREZ Patient#: [id number] Admission Date: 08/25/2018 Date of : 1995 [...] Nacho Meraz MD TT: 08/25/2018 10:10:14 IT/MODL /[id number] Electronically Authenticated by: Nacho Stephens MD on 09/28/2018 02:32 PM CDT Legally authenticated by KT AHMADI 2018-09-28 02:32:13 WIN MERAZ [facility]
--- NOTE | 2024-09-14 18:24 | ER ---
Nurse's Notes [facility] Name: Anita Alvarez Age: 29 yrs Sex: Female : 1995 Arrival Date: 09/14/2024 Time: 17:45 Bed DIS6 Private MD: Diagnosis: Assessment: 09/14 18:10 Reassessment: registration [facility] Course: 17:46 Patient arrived in ED. mr Administered Medications: No medications were administered Outcome: 19:02 Patient left the ED. iw Signatures: [place], Reg Reg Gabi Dawn, RN RN iw
== END 2024-09-14 19:02 | disposition left against medical advice (07) ==
LOC: ER 17:45
DX: Z02.9 Encounter for administrative examinations, unspecified (principal)